=== PATIENT | female | born 1960 | race Caucasian/White ===

== ENCOUNTER 2024-03-10 00:47 | Outpatient (BNV) | payer OTHER, SELFPAY | END 2024-03-18 07:00 | PROVIDERS: Admitting Provider Psychiatry & Neurology Psychiatry; PCP Nurse Practitioner; Visit Provider Radiology Diagnostic Radiology | DX: R41.82 Altered mental status, unspecified (principal) | CPT/HCPCS: 70450 ==

== ENCOUNTER 2024-03-10 00:47 | Inpatient (IN) | payer OTHER, SELFPAY ==
--- NOTE | ~2024-03-10 | CT_ITS ---
EXAMINATION: CT HEAD WITHOUT CONTRAST CLINICAL INFORMATION: AMS psychosis COMPARISON: None available. TECHNIQUE: Contiguous axial imaging was performed from the skull base to vertex without intravenous administration of contrast. This CT examination was performed using dose optimization techniques as appropriate, variously including the following: *Automated exposure control *Adjustment of mA and/or kV according to patient size (this includes techniques or standardized protocols for targeted exams where dose is matched to indication/reason for exam; i.e. extremities or head) *Use of iterative reconstruction technique DLP: 677 mGy-cm FINDINGS: Dilated to the lateral ventricles and third ventricle. Normal appearance of the fourth ventricle and the extra-axial CSF. No acute intracranial hemorrhage, mass effect, midline shift or herniation. Welch-white matter differentiation is normal. Sellar/suprasellar region demonstrated no gross masses. Craniocervical junction is intact and normal. Posterior cranial fossa contents demonstrated no acute intracranial hemorrhage or mass effect. Calcified plaques in the cavernous segments both ICA. Tympanic cavities and mastoid cells are aerated. Bony calvarium is intact. Skull base is intact. No air-fluid levels in the included paranasal sinuses. CT/CT head/brain wo IV con IMPRESSION: 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 Electronically signed by: Justen Santillan MD 03/18/2024 03:04 PM NICHOLE
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
[2024-03-10 03:57] VITALS: BP 121/65; PULSE 63; RESP 16; TEMP 36; O2SAT 98
[2024-03-10 03:58] VITALS: BMI 36.5
[2024-03-10 09:25] VITALS: BP 147/78; PULSE 77; RESP 17; TEMP 36.1; O2SAT 96
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
--- NOTE | 2024-03-10 11:48 | PHA.MEDREC ---
Pharmacy Consult ? Medication Reconciliation Pharmacy has reviewed the medication reconciliation done by nursing staff. Not sure why all medications were entered as non-formulary . Seems like nurse used the discharge packet from [facility] for med rec but left no copy of it in patient's chart for anyone to follow up. There was no dosage and direction for the Breo inhaler. Nystatin was entered as topical but no dosage form. Psyllium has no direction. Any med that was entered incorrectly are left on med list as unconfirmed for educational purposes. I called and spoke to Keena who is sister in law and health care proxy and received home med list (list was generated on 02/28/24 from [employer]). There are discrepancies between the list from [facility] and the list from home (for the dose of keppra, olanzapine, hydroxyzine, trazodone, the [facility] has lamictal and clobazam but home list does not). Dr. Victor M Wells wants to use the home med list for med rec so list was updated.
[2024-03-10 12:02] VITALS: BP 117/70; PULSE 72
[2024-03-10] MEDS: lisinopriL 5 MG TABLET PO (12:02)
[2024-03-10] MEDS: metFORMIN HCl 1,000 MG TABLET 1000 MG PO ×2 (12:02→21:00)
[2024-03-10] MEDS: Propranolol HCL 10 MG TABLET PO ×2 (12:02→20:59)
[2024-03-10] MEDS: Cholecalciferol (Vitamin D3) 25 MCG TABLET 50 MCG PO (12:02)
[2024-03-10] MEDS: levETIRAcetam 500 MG TABLET 1500 MG PO ×2 (12:03→20:58)
[2024-03-10] MEDS: Atorvastatin Calcium 10 MG TABLET 5 MG PO (12:03)
[2024-03-10] MEDS: Cyanocobalamin (Vitamin B-12) 1,000 MCG TABLET 1000 MCG PO (12:04)
[2024-03-10] MEDS: Benztropine Mesylate 1 MG TABLET PO ×2 (12:04→21:00)
[2024-03-10] MEDS: Pyridoxine HCl (Vitamin B6) 50 MG TABLET 25 MG PO (12:04)
[2024-03-10] MEDS: Levothyroxine Sodium 100 MCG TABLET PO (12:05)
[2024-03-10] MEDS: Topiramate 25 MG TABLET PO ×2 (12:34→21:00)
[2024-03-10] MEDS: Mirabegron 50 MG TAB.ER.24H PO (12:34)
[2024-03-10] MEDS: Docusate Sodium 100 MG CAPSULE PO (12:34)
[2024-03-10] MEDS: Fluticasone/Vilanterol 100/25 BLST.W.DEV 1 PUFF INHALE (12:35)
[2024-03-10 20:00] VITALS: BP 123/68; PULSE 74; RESP 16; TEMP 36.5; O2SAT 95
[2024-03-10] MEDS: Psyllium seed 3.7 GM PACKET PO (20:58)
[2024-03-10 20:59] VITALS: BP 123/68; PULSE 74
[2024-03-10] MEDS: Melatonin 3 MG TABLET 12 MG PO (21:00)
[2024-03-10] MEDS: Divalproex Sodium 500 MG TABLET.DR PO (21:00)
[2024-03-10 21:23] LABS: Glucose, Whole Blood 105 mg/dL (60-115)
--- NOTE | 2024-03-10 21:46 | HO.PM.IMCN ---
History of Present Illness Data of Consult Service Date: 03/10/24 Requesting physician: Victor M Wells Primary Care Provider: Regulo Ivy CNP HPI Reason for consult: medical consult Patient is 63-year-old female with a past medical history significant for mild persistent asthma, CKD 3A, fatty liver, hypertension, hypothyroidism, FERMÍN (does not use CPAP), epilepsy diagnosed 13 years old ( reports last seizure was this morning), type 2 diabetes ( p.o. meds only), history melanoma and angina, no cardiac stents, admitted to [facility], for schizophrenia with auditory and visual hallucinations. she has no medical concerns currently, denies chest pain, shortness of breath, headache, nausea, vomiting, lower extremity edema. She reports that her seizure triggers are certain lights and specifically flashing lights. She denies any substance use history. Review of Systems Constitutional: Constitutional: Denies chills, Denies fatigue, Denies fever(s), Denies headache(s) and Denies weakness Eyes: Eyes: Denies change in vision ENT: Denies headache(s), Denies nasal congestion, Denies nasal discharge and Denies sore throat Cardiovascular: Cardiovascular: Denies chest pain, Denies rapid heart rate, Denies lightheadedness and Denies dyspnea Respiratory: Respiratory: Denies chest congestion, Denies cough, Denies dyspnea and Denies wheezing Gastrointestinal: Gastrointestinal: Denies constipation, Denies diarrhea, Denies nausea and Denies vomiting Genitourinary: Genitourinary: Denies dysuria and Denies urinary urgency Musculoskeletal: Musculoskeletal: Denies myalgias, Denies numbness and Denies tingling Integumentary/Breasts: Skin/Breast: Denies rash Neurologic: Denies headache(s), Denies numbness, Denies tingling and Denies weakness Psychiatric: Psychiatric: Reports as per HPI Endocrine: Endocrine: Denies fatigue Hematologic/Lymphatic: Hematologic/Lymphatic: Denies easy bleeding and Denies easy bruising Allergic/Immunologic: Allergic/Immunologic: Denies wheezing [facility] Medical History (Updated 03/10/24 @ 22:17 by Celia Maddox PA-C) Stable angina History of melanoma HTN (hypertension) Mild persistent asthma FERMÍN (obstructive sleep apnea) Diabetic peripheral neuropathy NPH (normal pressure hydrocephalus) Seizure disorder CKD (chronic kidney disease) Hypothyroidism Type 2 diabetes mellitus Schizoaffective disorder Social History Household Members: None Housing: Apartment Do you presently have visiting nurse or other home services: Yes (Visiting Nurse) Patient Tobacco Use Status: Never used Tobacco Smoked in Last 30 Days: No e-Cigarette/Vaping Use: Never Used Patient Interested in Nicotine Replacement: No Patient Given Instructions on How to Stop Smoking: No Second Hand Smoke Exposure: No Use of substances other than those prescribed or required for medical reasons: No Currently Displaying Signs/Symptoms of Drug Intoxication Withdrawal: No Any prior treatment program specific to substance use: No Have you been hit, kicked, punched, or otherwise hurt by someone within the past year? If so, by whom?: No Do you feel safe in your current relationship?: No Current Relationship Is there a partner from a previous relationship who is making you feel unsafe now?: No Are you made to feel afraid or neglected: No Restorationism Healthcare Practices: I'm a hindu Advance Directives: No Do you have thoughts of harming others: None Do you have a plan to hurt others: No Plan Recently lost weight without trying: Yes How much weight loss: Unsure Eating poorly because of decreased appetite: No Nutrition screen score: 4 Nutrition Risks: Difficulty chewing and Difficulty swallowing Patient : No : No Poor oral hygiene: No Meds Allergies Allergy/AdvReac Type Severity Reaction Status Date / Time oxcarbazepine Allergy Unknown Verified 03/10/24 01:17 [From Trileptal] peanut Allergy Unknown Verified 03/10/24 01:17 quetiapine [From Seroquel] Allergy Vomiting Verified 03/10/24 01:17 Active Medications: Current Medications Acetaminophen (Acetaminophen 325 Mg Tablet) 650 mg PO Q6H PRN PRN Reason: Headache/Pain Mild Scale (1-3) Al Hydroxide/Mg Hydroxide (Magnesium Hydrox/Alum Hydrox 30 Ml Oral.Susp) 30 ml PO QID PRN PRN Reason: Heartburn Albuterol Sulfate (Albuterol Sulfate 90 Mcg 8 Gm Inhaler) 1 puff INHALE Q3H PRN PRN Reason: Shortness of Breath Atorvastatin Calcium (Atorvastatin Calcium 10 Mg Tablet) 5 mg PO DAILY [facility] Last Admin: 03/10/24 12:03 Dose: 5 mg Benztropine Mesylate (Benztropine Mesylate 1 Mg Tablet) 1 mg PO BID [facility] Last Admin: 03/10/24 21:00 Dose: 1 mg Cyanocobalamin (Cyanocobalamin (Vitamin B-12) 1,000 Mcg Tablet) 1,000 mcg PO DAILY [facility] Last Admin: 03/10/24 12:04 Dose: 1,000 mcg Divalproex Sodium (Divalproex Sodium 500 Mg Tablet.Dr) 500 mg PO BEDTIME [facility] Last Admin: 03/10/24 21:00 Dose: 500 mg Docusate Sodium (Docusate Sodium 100 Mg Capsule) 100 mg PO BID PRN PRN Reason: Constipation Last Admin: 03/10/24 12:34 Dose: 100 mg Fluticasone/Vilanterol (Fluticasone/Vilanterol 100/25 Blst.W.Dev) 1 puff INHALE RDAILY [facility] Last Admin: 03/10/24 12:35 Dose: 1 puff Hydroxyzine HCl (Hydroxyzine Hcl 50 Mg Tablet) 50 mg PO QID PRN PRN Reason: Anxiety Levetiracetam (Levetiracetam 500 Mg Tablet) 1,500 mg PO BID [facility] Last Admin: 03/10/24 20:58 Dose: 1,500 mg Levothyroxine Sodium (Levothyroxine Sodium 100 Mcg Tablet) 100 mcg PO DAILY@0600 [facility] Last Admin: 03/10/24 12:05 Dose: 100 mcg Lisinopril (Lisinopril 5 Mg Tablet) 5 mg PO DAILY [facility] Last Admin: 03/10/24 12:02 Dose: 5 mg Magnesium Hydroxide (Milk Of Magnesia 30 Ml Oral.Susp) 10 ml PO BID PRN PRN Reason: Constipation Melatonin (Melatonin 3 Mg Tablet) 12 mg PO BEDTIME [facility] Last Admin: 03/10/24 21:00 Dose: 12 mg Metformin HCl (Metformin Hcl 1,000 Mg Tablet) 1,000 mg PO BID [facility] Last Admin: 03/10/24 21:00 Dose: 1,000 mg Mirabegron (Mirabegron 50 Mg Tab.Er.24h) 50 mg PO DAILY [facility] Last Admin: 03/10/24 12:34 Dose: 50 mg Nystatin/Triamcinolone Acetonide (Nystatin/Triamcinolone Oint 15 Gm Tube) 1 appl TOPICAL BID [facility] Last Admin: 03/10/24 21:04 Dose: Not Given Olanzapine (Olanzapine 5 Mg Tablet) 5 mg PO BID PRN PRN Reason: Agitation Propranolol HCl (Propranolol Hcl 10 Mg Tablet) 10 mg PO BID [facility] Last Admin: 03/10/24 20:59 Dose: 10 mg Psyllium Hydrophilic Mucilloid (Psyllium Seed 3.7 Gm Packet) 3.7 gm PO BID [facility] Last Admin: 03/10/24 20:58 Dose: 3.7 gm Pyridoxine HCl (Pyridoxine Hcl (Vitamin B6) 50 Mg Tablet) 25 mg PO DAILY [facility] Last Admin: 03/10/24 12:04 Dose: 25 mg Senna (Sennosides 8.6 Mg Tablet) 17.2 mg PO BEDTIME PRN PRN Reason: Constipation Topiramate (Topiramate 25 Mg Tablet) 25 mg PO BID [facility] Last Admin: 03/10/24 21:00 Dose: 25 mg Trazodone HCl (Trazodone Hcl 50 Mg Tablet) 50 mg PO BEDTIME MRX1 PRN PRN Reason: Insomnia Vitamin D (Cholecalciferol (Vitamin D3) 25 Mcg Tablet) 50 mcg PO DAILY [facility] Last Admin: 03/10/24 12:02 Dose: 50 mcg Home Medications ?Medication ?Instructions ?Recorded ?Confirmed ?Last Taken ?Type Aristada 662 mg IM Q6W 03/10/24 03/10/24 Unknown History Colace 100 cap PO BID PRN Constipation 03/10/24 03/10/24 Unknown History Depakote 500 mg PO BEDTIME 03/10/24 03/10/24 Unknown History Keppra 1,500 mg PO BID 03/10/24 03/10/24 Unknown History Maalox 30 ml PO QID PRN Heartburn 03/10/24 03/10/24 Unknown History Milk of Magnesia 10 ml PO BID PRN Constipation 03/10/24 03/10/24 Unknown History Myrbetriq 50 mg PO DAILY 03/10/24 03/10/24 Unknown History [place] 3 1 cap PO DAILY 03/10/24 03/10/24 Unknown History Zyprexa 5 mg PO BID PRN Agitation 03/10/24 03/10/24 Unknown History acetaminophen 650 mg 1,300 mg PO Q8H PRN Pain 03/10/24 03/10/24 Unknown History tablet,extended release albuterol 90 mcg inhalation Q4H PRN SOB 03/10/24 03/10/24 Unknown History benztropine 1 mg PO BID 03/10/24 03/10/24 Unknown History cholecalciferol (vitamin D3) 50 mcg PO DAILY 03/10/24 03/10/24 Unknown History cyanocobalamin (vitamin B-12) 1,000 mcg PO DAILY 03/10/24 03/10/24 Unknown History fluticasone furoate 100 1 inh inhalation DAILY 03/10/24 03/10/24 Unknown History mcg-vilanterol 25 mcg/dose inhalation powder (Breo Ellipta) fluticasone furoate-vilanterol 1 inhaler inhalation DIRECTED 03/10/24 Unknown History gabapentin 100 mg PO TID 03/10/24 03/10/24 Unknown History hydroxyzine HCl 50 mg PO QID PRN Anxiety 03/10/24 03/10/24 Unknown History levothyroxine 100 mcg PO DAILY 03/10/24 03/10/24 Unknown History lisinopril 5 mg PO DAILY 03/10/24 03/10/24 Unknown History melatonin 12 mg PO BEDTIME 03/10/24 03/10/24 Unknown History metformin 1,000 mg PO BID 03/10/24 03/10/24 Unknown History montelukast 10 mg PO DAILY 03/10/24 03/10/24 Unknown History nystatin 1 applicator topical BID 03/10/24 Unknown History nystatin-triamcinolone 100,000 1 appl topical BID 03/10/24 03/10/24 Unknown History unit/gram-0.1 % topical ointment propranolol 10 mg PO BID 03/10/24 03/10/24 Unknown History psyllium 2 packet PO BID 03/10/24 03/10/24 Unknown History psyllium 2.5 g PO DIRECTED 03/10/24 Unknown History pyridoxine (vitamin B6) 25 mg PO DAILY 03/10/24 03/10/24 Unknown History senna 17.2 mg PO BEDTIME PRN Constipation 03/10/24 03/10/24 Unknown History simvastatin 5 mg PO BEDTIME 03/10/24 03/10/24 Unknown History topiramate 50 mg PO BEDTIME 03/10/24 03/10/24 Unknown History topiramate 100 mg tablet 100 mg PO BID@1200,2100 03/10/24 03/10/24 Unknown History trazodone 100 mg PO BEDTIME 03/10/24 03/10/24 Unknown History Physical Exam Vital Signs and Narrative: Vital Signs: Last Vital Signs Temp 96.9 F 03/10/24 09:25 Pulse 74 03/10/24 20:59 Resp 17 03/10/24 09:25 BP 123/68 03/10/24 20:59 Pulse Ox 96 03/10/24 09:25 O2 Del Method Room Air 03/10/24 09:25 BMI result Body Mass Index 36.5 General: AOx3, no acute distress, cooperative, laying in bed awake Resp: CTA bilaterally CVS: S1, S2, RRR GI: +BS, NT, no distention Skin: Warm, dry Neuro: Cranial nerves II-XII grossly intact bilaterally. Motor grossly intact bilaterally. motor strength 5/5 bilateral upper and lower extremities. Extremities: No edema Psych: Appropriate affect Results Labs Labs: Laboratory Results - last 24 hr 03/10/24 21:12 POC Glucose 105 Assessment and Plan (1) Medical clearance for psychiatric admission: Status: Acute Plan Patient is 63-year-old female with a past medical history significant for mild persistent asthma, CKD 3A, fatty liver, hypertension, hypothyroidism, FERÍMN (does not use CPAP), epilepsy diagnosed 13 years old ( reports last seizure was this morning), EPS, NPH, type 2 diabetes ( p.o. meds only), history melanoma and angina, no cardiac stents, admitted to [facility], for schizophrenia with auditory and visual hallucinations. No current medical concerns. mood disorder - plan per psych mild persistent asthma - no acute exacerbation - continue albuterol as needed, montelukast and Breo daily HTN - continue lisinopril and propranolol hypothyroidism - continue levothyroxine FERMÍN - patient does not use CPAP, offered and she declined epilepsy - continue Depakote, lamotrigine, gabapentin - patient has taken up to 150 mg topiramate daily, recommendations from [facility] include increasing dose dependent on patient response - consider neuro consult for further guidance her EPS - continue benztropine NPH - recent head CT normal T2DM - encourage diabetic diet - metformin Thank you for allowing me to participate in the pt's care. Signing off for now. Please contact the medical team if any questions or concerns.
[2024-03-11 05:41] LABS: Glucose, Whole Blood 110 mg/dL (60-115)
[2024-03-11] MEDS: Levothyroxine Sodium 100 MCG TABLET PO (06:09)
[2024-03-11 08:44] LABS: Estimated Average Glucose 120 mg/dL; Hemoglobin A1C 141.0181 umol/L; Hemoglobin A1c % 5.8 % (<6.0); Total Hemoglobin (HGBA1C) 3503.0257 umol/L
[2024-03-11 08:50] LABS: Creatinine Clr Calc Pharmacy 60.4; Estimated Glomerular Filt Rate 52
[2024-03-11 08:59] LABS: Cholesterol 135 mg/dL (<200); HDL Cholesterol 40 mg/dL (>40); LDL Cholesterol Calculated 80 mg/dL (<100); Triglycerides 77 mg/dL (<150)
[2024-03-11 09:12] LABS: Free T4 (Free Thyroxine) 1.34 ng/dL (0.71-1.85); Thyroid Stimulating Hormone 2.22 uIU/mL (0.32-4.0)
[2024-03-11 09:27] LABS: Folate 7.5 ng/mL (> or = 4.0); Vitamin B12 996 pg/mL (200-900)
[2024-03-11 09:33] VITALS: BP 99/62; PULSE 53; RESP 18; TEMP 36.1; O2SAT 94
[2024-03-11] MEDS: lisinopriL 5 MG TABLET PO (09:33)
[2024-03-11] MEDS: Cholecalciferol (Vitamin D3) 25 MCG TABLET 50 MCG PO (09:34)
[2024-03-11] MEDS: Cyanocobalamin (Vitamin B-12) 1,000 MCG TABLET 1000 MCG PO (09:34)
[2024-03-11] MEDS: Atorvastatin Calcium 10 MG TABLET 5 MG PO (09:34)
[2024-03-11] MEDS: levETIRAcetam 500 MG TABLET 1500 MG PO ×2 (09:34→20:10)
[2024-03-11] MEDS: Propranolol HCL 10 MG TABLET PO ×2 (09:34→20:11)
[2024-03-11] MEDS: metFORMIN HCl 1,000 MG TABLET 1000 MG PO ×2 (09:36→20:11)
[2024-03-11] MEDS: Mirabegron 50 MG TAB.ER.24H PO (09:36)
[2024-03-11] MEDS: Pyridoxine HCl (Vitamin B6) 50 MG TABLET 25 MG PO (09:36)
[2024-03-11] MEDS: Benztropine Mesylate 1 MG TABLET PO ×2 (09:36→20:11)
[2024-03-11] MEDS: Topiramate 25 MG TABLET PO ×2 (09:38→20:11)
[2024-03-11] MEDS: Psyllium seed 3.7 GM PACKET PO (09:39)
[2024-03-11] MEDS: Fluticasone/Vilanterol 100/25 BLST.W.DEV 1 PUFF INHALE (09:39)
--- NOTE | 2024-03-11 13:10 | PM.NEUROCN ---
History of Present Illness Data of Consult Service Date: 03/11/24 Primary Care Provider: Regulo Ivy CNP HPI Reason for consult: Seizure disorder 63 years old woman with underlying diagnosis of seizure disorder following a neurologist in [facility] presently was admitted on psychiatric floor for management of worsening of schizoaffective disorder. Apparently she was noted to have a seizure-like spell and this consultation was requested. She said that her usual seizures were eye fluttering type when her eyes would flutter for couple of seconds and this time she kind of spaced out for couple of seconds. She never had generalized convulsion or passing out or falling down type of seizures. I noted that she already has been taking 3 antiepileptics for 1 or other reason including levetiracetam, valproic acid, and gabapentin. Review of Systems Review of Systems: No recent head injury or trauma [facility] Past Medical History Medical History (Updated 03/10/24 @ 22:17 by Celia Maddox PA-C) Stable angina History of melanoma HTN (hypertension) Mild persistent asthma FERMÍN (obstructive sleep apnea) Diabetic peripheral neuropathy NPH (normal pressure hydrocephalus) Seizure disorder CKD (chronic kidney disease) Hypothyroidism Type 2 diabetes mellitus Schizoaffective disorder Social History Social History Household Members: None Housing: Apartment Do you presently have visiting nurse or other home services: Yes (Visiting Nurse) Patient Tobacco Use Status: Never used Tobacco Smoked in Last 30 Days: No e-Cigarette/Vaping Use: Never Used Patient Interested in Nicotine Replacement: No Patient Given Instructions on How to Stop Smoking: No Second Hand Smoke Exposure: No Use of substances other than those prescribed or required for medical reasons: No Currently Displaying Signs/Symptoms of Drug Intoxication Withdrawal: No Any prior treatment program specific to substance use: No Have you been hit, kicked, punched, or otherwise hurt by someone within the past year? If so, by whom?: No Do you feel safe in your current relationship?: No Current Relationship Is there a partner from a previous relationship who is making you feel unsafe now?: No Are you made to feel afraid or neglected: No Catholic Healthcare Practices: I'm a baptist Advance Directives: No Do you have thoughts of harming others: None Do you have a plan to hurt others: No Plan Recently lost weight without trying: Yes How much weight loss: Unsure Eating poorly because of decreased appetite: No Nutrition screen score: 4 Nutrition Risks: Difficulty chewing and Difficulty swallowing Patient : No : No Poor oral hygiene: No Meds Allergies Allergy/AdvReac Type Severity Reaction Status Date / Time oxcarbazepine Allergy Unknown Verified 03/10/24 01:17 [From Trileptal] peanut Allergy Unknown Verified 03/10/24 01:17 quetiapine [From Seroquel] Allergy Vomiting Verified 03/10/24 01:17 Active Medications: Current Medications Acetaminophen (Acetaminophen 325 Mg Tablet) 650 mg PO Q6H PRN PRN Reason: Headache/Pain Mild Scale (1-3) Al Hydroxide/Mg Hydroxide (Magnesium Hydrox/Alum Hydrox 30 Ml Oral.Susp) 30 ml PO QID PRN PRN Reason: Heartburn Albuterol Sulfate (Albuterol Sulfate 90 Mcg 8 Gm Inhaler) 1 puff INHALE Q3H PRN PRN Reason: Shortness of Breath Atorvastatin Calcium (Atorvastatin Calcium 10 Mg Tablet) 5 mg PO DAILY [facility] Last Admin: 03/11/24 09:34 Dose: 5 mg Benztropine Mesylate (Benztropine Mesylate 1 Mg Tablet) 1 mg PO BID [facility] Last Admin: 03/11/24 09:36 Dose: 1 mg Cyanocobalamin (Cyanocobalamin (Vitamin B-12) 1,000 Mcg Tablet) 1,000 mcg PO DAILY [facility] Last Admin: 03/11/24 09:34 Dose: 1,000 mcg Divalproex Sodium (Divalproex Sodium 500 Mg Tablet.Dr) 500 mg PO BEDTIME [facility] Last Admin: 03/10/24 21:00 Dose: 500 mg Docusate Sodium (Docusate Sodium 100 Mg Capsule) 100 mg PO BID PRN PRN Reason: Constipation Last Admin: 03/10/24 12:34 Dose: 100 mg Fluticasone/Vilanterol (Fluticasone/Vilanterol 100/25 Blst.W.Dev) 1 puff INHALE RDAILY [facility] Last Admin: 03/11/24 09:39 Dose: 1 puff Hydroxyzine HCl (Hydroxyzine Hcl 50 Mg Tablet) 50 mg PO QID PRN PRN Reason: Anxiety Levetiracetam (Levetiracetam 500 Mg Tablet) 1,500 mg PO BID [facility] Last Admin: 03/11/24 09:34 Dose: 1,500 mg Levothyroxine Sodium (Levothyroxine Sodium 100 Mcg Tablet) 100 mcg PO DAILY@0600 [facility] Last Admin: 03/11/24 06:09 Dose: 100 mcg Lisinopril (Lisinopril 5 Mg Tablet) 5 mg PO DAILY [facility] Last Admin: 03/11/24 09:33 Dose: 5 mg Magnesium Hydroxide (Milk Of Magnesia 30 Ml Oral.Susp) 10 ml PO BID PRN PRN Reason: Constipation Melatonin (Melatonin 3 Mg Tablet) 12 mg PO BEDTIME [facility] Last Admin: 03/10/24 21:00 Dose: 12 mg Metformin HCl (Metformin Hcl 1,000 Mg Tablet) 1,000 mg PO BID [facility] Last Admin: 03/11/24 09:36 Dose: 1,000 mg Mirabegron (Mirabegron 50 Mg Tab.Er.24h) 50 mg PO DAILY [facility] Last Admin: 03/11/24 09:36 Dose: 50 mg Nystatin/Triamcinolone Acetonide (Nystatin/Triamcinolone Oint 15 Gm Tube) 1 appl TOPICAL BID [facility] Last Admin: 03/11/24 09:44 Dose: Not Given Olanzapine (Olanzapine 5 Mg Tablet) 5 mg PO BID PRN PRN Reason: Agitation Propranolol HCl (Propranolol Hcl 10 Mg Tablet) 10 mg PO BID [facility] Last Admin: 03/11/24 09:34 Dose: 10 mg Psyllium Hydrophilic Mucilloid (Psyllium Seed 3.7 Gm Packet) 3.7 gm PO BID [facility] Last Admin: 03/11/24 09:39 Dose: 3.7 gm Pyridoxine HCl (Pyridoxine Hcl (Vitamin B6) 50 Mg Tablet) 25 mg PO DAILY [facility] Last Admin: 03/11/24 09:36 Dose: 25 mg Senna (Sennosides 8.6 Mg Tablet) 17.2 mg PO BEDTIME PRN PRN Reason: Constipation Topiramate (Topiramate 25 Mg Tablet) 25 mg PO BID [facility] Last Admin: 03/11/24 09:38 Dose: 25 mg Trazodone HCl (Trazodone Hcl 50 Mg Tablet) 50 mg PO BEDTIME MRX1 PRN PRN Reason: Insomnia Vitamin D (Cholecalciferol (Vitamin D3) 25 Mcg Tablet) 50 mcg PO DAILY [facility] Last Admin: 03/11/24 09:34 Dose: 50 mcg Home Medications ?Medication ?Instructions ?Recorded ?Confirmed ?Last Taken ?Type Aristada 662 mg IM Q6W 03/10/24 03/10/24 Unknown History Colace 100 cap PO BID PRN Constipation 03/10/24 03/10/24 Unknown History Depakote 500 mg PO BEDTIME 03/10/24 03/10/24 Unknown History Keppra 1,500 mg PO BID 03/10/24 03/10/24 Unknown History Maalox 30 ml PO QID PRN Heartburn 03/10/24 03/10/24 Unknown History Milk of Magnesia 10 ml PO BID PRN Constipation 03/10/24 03/10/24 Unknown History Myrbetriq 50 mg PO DAILY 03/10/24 03/10/24 Unknown History [place] 3 1 cap PO DAILY 03/10/24 03/10/24 Unknown History Zyprexa 5 mg PO BID PRN Agitation 03/10/24 03/10/24 Unknown History acetaminophen 650 mg 1,300 mg PO Q8H PRN Pain 03/10/24 03/10/24 Unknown History tablet,extended release albuterol 90 mcg inhalation Q4H PRN SOB 03/10/24 03/10/24 Unknown History benztropine 1 mg PO BID 03/10/24 03/10/24 Unknown History cholecalciferol (vitamin D3) 50 mcg PO DAILY 03/10/24 03/10/24 Unknown History cyanocobalamin (vitamin B-12) 1,000 mcg PO DAILY 03/10/24 03/10/24 Unknown History fluticasone furoate 100 1 inh inhalation DAILY 03/10/24 03/10/24 Unknown History mcg-vilanterol 25 mcg/dose inhalation powder (Breo Ellipta) fluticasone furoate-vilanterol 1 inhaler inhalation DIRECTED 03/10/24 Unknown History gabapentin 100 mg PO TID 03/10/24 03/10/24 Unknown History hydroxyzine HCl 50 mg PO QID PRN Anxiety 03/10/24 03/10/24 Unknown History levothyroxine 100 mcg PO DAILY 03/10/24 03/10/24 Unknown History lisinopril 5 mg PO DAILY 03/10/24 03/10/24 Unknown History melatonin 12 mg PO BEDTIME 03/10/24 03/10/24 Unknown History metformin 1,000 mg PO BID 03/10/24 03/10/24 Unknown History montelukast 10 mg PO DAILY 03/10/24 03/10/24 Unknown History nystatin 1 applicator topical BID 03/10/24 Unknown History nystatin-triamcinolone 100,000 1 appl topical BID 03/10/24 03/10/24 Unknown History unit/gram-0.1 % topical ointment propranolol 10 mg PO BID 03/10/24 03/10/24 Unknown History psyllium 2 packet PO BID 03/10/24 03/10/24 Unknown History psyllium 2.5 g PO DIRECTED 03/10/24 Unknown History pyridoxine (vitamin B6) 25 mg PO DAILY 03/10/24 03/10/24 Unknown History senna 17.2 mg PO BEDTIME PRN Constipation 03/10/24 03/10/24 Unknown History simvastatin 5 mg PO BEDTIME 03/10/24 03/10/24 Unknown History topiramate 50 mg PO BEDTIME 03/10/24 03/10/24 Unknown History topiramate 100 mg tablet 100 mg PO BID@1200,2100 03/10/24 03/10/24 Unknown History trazodone 100 mg PO BEDTIME 03/10/24 03/10/24 Unknown History Physical Exam Vital Signs: Vital Signs: Last Vital Signs Temp 96.9 F 03/11/24 09:33 Pulse 53 03/11/24 09:33 Resp 18 03/11/24 09:33 BP 99/62 03/11/24 09:33 Pulse Ox 94 03/11/24 09:33 O2 Del Method Room Air 03/11/24 09:33 BMI result Body Mass Index 36.5 Neuro: Other: She is alert and awake with normal spontaneity of speech fluency comprehension and affect. Face is symmetrical. Visual jaramillo are full. There is no obvious focal finding. Results Labs 03/11/24 08:09 Labs: BMP 03/11/24 08:09 Creatinine 1.06 Assessment and Plan (1) Seizure disorder: Status: Acute Possible seizure disorder with partial or brief complex partial seizures. Exact seizure history in nature was not known as her previous workup was not available. She has been taking relatively large dose of levetiracetam. According to her, seizures included few seconds of eye fluttering. My recommendation is to manage her psychiatric symptoms and leave seizure management to her previous neurologist where are proper workup is known. Sometime full seizure control is difficult to achieve but as far as proper definition of this condition is concerned, she might already have workup done with her neurologist. Procedures Date of Service Date of Service: 03/11/24
--- NOTE | 2024-03-11 13:36 | P.PNPSI_ITS ---
Subjective Subjective Date of Service: 03/11/24 Reason For Visit: Psychosis Subjective Notes: Conditional Voluntary Interim History: The nursing staff reported the patient had been complaining of auditory hallucinations and visual hallucinations like seeing a man in visible. On interview the patient remains grossly psychotic, we are going to discuss about the possibility of using antipsychotics as a mood stabilizer and antipsychotic. Mental Status Exam Mental Status Exam Patient Appearance: Well Grooomed Patient Orientation: Person and Situation Level of Consciousness: Awake Patient Behavior: Guarded and Passive Mood Description: Withdrawn Affect Description: Constricted Patient Cognition Impaired: Yes Ability to Follow Directions: Good Speech Pattern: Clear Hallucinations: None Delusions: Not Present Thought Process: Distracted and Slowed Thinking Thought Content: positive for [place] and positive for Poverty of Content Judgement: Poor Diagnostics Vital Signs (24Hr): Vital Signs - 24 hr 03/10/24 20:00 03/10/24 20:59 03/11/24 09:33 Temperature 97.7 F 96.9 F Pulse Rate 74 74 53 Respiratory Rate 16 18 Blood Pressure 123/68 123/68 99/62 Pulse Oximetry 95 94 Oxygen Delivery Method Room Air Room Air BMI result Body Mass Index 36.5 Labs 03/11/24 08:09 Labs: Laboratory Results - last 48 hr 03/10/24 03/11/24 03/11/24 21:12 05:38 08:09 Creatinine 1.06 Estim Creat Clear Calc 60.4 Estimated GFR 52 POC Glucose 105 110 Estimat Average Glucose 120 Hemoglobin A1c % 5.8 Triglycerides 77 Cholesterol 135 LDL Cholesterol, Calc 80 HDL Cholesterol 40 L Vitamin B12 996 H Folate 7.5 TSH 2.22 Free T4 1.34 Medications Medications Current Medications Acetaminophen (Acetaminophen 325 Mg Tablet) 650 mg PO Q6H PRN PRN Reason: Headache/Pain Mild Scale (1-3) Al Hydroxide/Mg Hydroxide (Magnesium Hydrox/Alum Hydrox 30 Ml Oral.Susp) 30 ml PO QID PRN PRN Reason: Heartburn Albuterol Sulfate (Albuterol Sulfate 90 Mcg 8 Gm Inhaler) 1 puff INHALE Q3H PRN PRN Reason: Shortness of Breath Atorvastatin Calcium (Atorvastatin Calcium 10 Mg Tablet) 5 mg PO DAILY [facility] Last Admin: 03/11/24 09:34 Dose: 5 mg Benztropine Mesylate (Benztropine Mesylate 1 Mg Tablet) 1 mg PO BID [facility] Last Admin: 03/11/24 09:36 Dose: 1 mg Cyanocobalamin (Cyanocobalamin (Vitamin B-12) 1,000 Mcg Tablet) 1,000 mcg PO DAILY [facility] Last Admin: 03/11/24 09:34 Dose: 1,000 mcg Divalproex Sodium (Divalproex Sodium 500 Mg Tablet.Dr) 500 mg PO BEDTIME [facility] Last Admin: 03/10/24 21:00 Dose: 500 mg Docusate Sodium (Docusate Sodium 100 Mg Capsule) 100 mg PO BID PRN PRN Reason: Constipation Last Admin: 03/10/24 12:34 Dose: 100 mg Fluticasone/Vilanterol (Fluticasone/Vilanterol 100/25 Blst.W.Dev) 1 puff INHALE RDAILY [facility] Last Admin: 03/11/24 09:39 Dose: 1 puff Hydroxyzine HCl (Hydroxyzine Hcl 50 Mg Tablet) 50 mg PO QID PRN PRN Reason: Anxiety Levetiracetam (Levetiracetam 500 Mg Tablet) 1,500 mg PO BID [facility] Last Admin: 03/11/24 09:34 Dose: 1,500 mg Levothyroxine Sodium (Levothyroxine Sodium 100 Mcg Tablet) 100 mcg PO DAILY@0600 [facility] Last Admin: 03/11/24 06:09 Dose: 100 mcg Lisinopril (Lisinopril 5 Mg Tablet) 5 mg PO DAILY [facility] Last Admin: 03/11/24 09:33 Dose: 5 mg Magnesium Hydroxide (Milk Of Magnesia 30 Ml Oral.Susp) 10 ml PO BID PRN PRN Reason: Constipation Melatonin (Melatonin 3 Mg Tablet) 12 mg PO BEDTIME [facility] Last Admin: 03/10/24 21:00 Dose: 12 mg Metformin HCl (Metformin Hcl 1,000 Mg Tablet) 1,000 mg PO BID [facility] Last Admin: 03/11/24 09:36 Dose: 1,000 mg Mirabegron (Mirabegron 50 Mg Tab.Er.24h) 50 mg PO DAILY [facility] Last Admin: 03/11/24 09:36 Dose: 50 mg Nystatin/Triamcinolone Acetonide (Nystatin/Triamcinolone Oint 15 Gm Tube) 1 appl TOPICAL BID [facility] Last Admin: 03/11/24 09:44 Dose: Not Given Olanzapine (Olanzapine 5 Mg Tablet) 5 mg PO BID PRN PRN Reason: Agitation Propranolol HCl (Propranolol Hcl 10 Mg Tablet) 10 mg PO BID [facility] Last Admin: 03/11/24 09:34 Dose: 10 mg Psyllium Hydrophilic Mucilloid (Psyllium Seed 3.7 Gm Packet) 3.7 gm PO BID [facility] Last Admin: 03/11/24 09:39 Dose: 3.7 gm Pyridoxine HCl (Pyridoxine Hcl (Vitamin B6) 50 Mg Tablet) 25 mg PO DAILY [facility] Last Admin: 03/11/24 09:36 Dose: 25 mg Senna (Sennosides 8.6 Mg Tablet) 17.2 mg PO BEDTIME PRN PRN Reason: Constipation Topiramate (Topiramate 25 Mg Tablet) 25 mg PO BID [facility] Last Admin: 03/11/24 09:38 Dose: 25 mg Trazodone HCl (Trazodone Hcl 50 Mg Tablet) 50 mg PO BEDTIME MRX1 PRN PRN Reason: Insomnia Vitamin D (Cholecalciferol (Vitamin D3) 25 Mcg Tablet) 50 mcg PO DAILY [facility] Last Admin: 03/11/24 09:34 Dose: 50 mcg Allergies Allergies Allergy/AdvReac Type Severity Reaction Status Date / Time oxcarbazepine Allergy Unknown Verified 03/10/24 01:17 [From Trileptal] peanut Allergy Unknown Verified 03/10/24 01:17 quetiapine [From Seroquel] Allergy Vomiting Verified 03/10/24 01:17 Assessment & Plan Assessment & Plan (1) Seizure disorder: Status: Acute Code(s): G40.909 - Epilepsy, unspecified, not intractable, without status epilepticus Assessment and Plan: Possible seizure disorder with partial or brief complex partial seizures. Exact seizure history in nature was not known as her previous workup was not available. She has been taking relatively large dose of levetiracetam. According to her, seizures included few seconds of eye fluttering. My recommendation is to manage her psychiatric symptoms and leave seizure management to her previous neurologist where are proper workup is known. Sometime full seizure control is difficult to achieve but as far as proper definition of this condition is concerned, she might already have workup done with her neurologist. Plan Plan 1. Gather collateral information. 2. Continue with same medications. 3. We will start antipsychotics to target psychosis. Reason for continued inpatient stay Substantial Risk for: inability to function, rapid decompensation and med/psych decompensation Time Spent With Patient Time: Total time managing care of this patient today __20__ minutes.
[2024-03-11 20:00] VITALS: BP 106/53; PULSE 63; RESP 16; TEMP 36.5; O2SAT 96
[2024-03-11] MEDS: Melatonin 3 MG TABLET 12 MG PO (20:10)
[2024-03-11 20:11] VITALS: BP 103/53; PULSE 63
[2024-03-11] MEDS: Divalproex Sodium 500 MG TABLET.DR PO (20:11)
[2024-03-12 05:26] LABS: Glucose, Whole Blood 128 mg/dL (60-115)
[2024-03-12] MEDS: Levothyroxine Sodium 100 MCG TABLET PO (05:32)
[2024-03-12] MEDS: OLANZapine 5 MG TABLET PO (05:32)
[2024-03-12 08:00] VITALS: BP 116/61; PULSE 60; RESP 16; TEMP 36.4; O2SAT 98
--- NOTE | 2024-03-12 08:29 | HO.PSYCHPN ---
Subjective Subjective Date of Service: 03/12/24 Reason For Visit: Psychosis Interim History: The nursing staff reported the patient went to bed early she slept 6 hours and he woke up at 04:00 o'clock in the morning. He received Zyprexa at 05:30 and she still paranoid. She had been elusive stating that her parents are not their parents. On interview the patient denies new symptoms she looks internally preoccupied. Mental Status Exam Mental Status Exam Patient Appearance: Appropriate Patient Orientation: Person and Situation Level of Consciousness: Awake and Appropriate Patient Behavior: Guarded and Passive Mood Description: Calm Affect Description: Labile Patient Cognition Impaired: Yes Ability to Follow Directions: Good Speech Pattern: Clear Hallucinations: Auditory Delusions: Paranoid Ideation and Ideas of Reference Thought Process: Distracted and Evasive Thought Content: positive for [place] and positive for Poverty of Content Judgement: Poor Diagnostics Vital Signs (24Hr): Vital Signs - 24 hr 03/11/24 09:33 03/11/24 20:00 03/11/24 20:11 Temperature 96.9 F 97.7 F Pulse Rate 53 63 63 Respiratory Rate 18 16 Blood Pressure 99/62 106/53 L 103/53 L Pulse Oximetry 94 96 Oxygen Delivery Method Room Air Room Air BMI result Body Mass Index 36.5 Labs 03/11/24 08:09 Labs: Laboratory Results - last 48 hr 03/10/24 03/11/24 03/11/24 21:12 05:38 08:09 Creatinine 1.06 Estim Creat Clear Calc 60.4 Estimated GFR 52 POC Glucose 105 110 Estimat Average Glucose 120 Hemoglobin A1c % 5.8 Triglycerides 77 Cholesterol 135 LDL Cholesterol, Calc 80 HDL Cholesterol 40 L Vitamin B12 996 H Folate 7.5 TSH 2.22 Free T4 1.34 03/12/24 05:23 Creatinine Estim Creat Clear Calc Estimated GFR POC Glucose 128 H Estimat Average Glucose Hemoglobin A1c % Triglycerides Cholesterol LDL Cholesterol, Calc HDL Cholesterol Vitamin B12 Folate TSH Free T4 Medications Medications Current Medications Acetaminophen (Acetaminophen 325 Mg Tablet) 650 mg PO Q6H PRN PRN Reason: Headache/Pain Mild Scale (1-3) Al Hydroxide/Mg Hydroxide (Magnesium Hydrox/Alum Hydrox 30 Ml Oral.Susp) 30 ml PO QID PRN PRN Reason: Heartburn Albuterol Sulfate (Albuterol Sulfate 90 Mcg 8 Gm Inhaler) 1 puff INHALE Q3H PRN PRN Reason: Shortness of Breath Atorvastatin Calcium (Atorvastatin Calcium 10 Mg Tablet) 5 mg PO DAILY [facility] Last Admin: 03/11/24 09:34 Dose: 5 mg Benztropine Mesylate (Benztropine Mesylate 1 Mg Tablet) 1 mg PO BID [facility] Last Admin: 03/11/24 20:11 Dose: 1 mg Cyanocobalamin (Cyanocobalamin (Vitamin B-12) 1,000 Mcg Tablet) 1,000 mcg PO DAILY [facility] Last Admin: 03/11/24 09:34 Dose: 1,000 mcg Divalproex Sodium (Divalproex Sodium 500 Mg Tablet.Dr) 500 mg PO BEDTIME [facility] Last Admin: 03/11/24 20:11 Dose: 500 mg Docusate Sodium (Docusate Sodium 100 Mg Capsule) 100 mg PO BID PRN PRN Reason: Constipation Last Admin: 03/10/24 12:34 Dose: 100 mg Fluticasone/Vilanterol (Fluticasone/Vilanterol 100/25 Blst.W.Dev) 1 puff INHALE RDAILY [facility] Last Admin: 03/11/24 09:39 Dose: 1 puff Hydroxyzine HCl (Hydroxyzine Hcl 50 Mg Tablet) 50 mg PO QID PRN PRN Reason: Anxiety Levetiracetam (Levetiracetam 500 Mg Tablet) 1,500 mg PO BID [facility] Last Admin: 03/11/24 20:10 Dose: 1,500 mg Levothyroxine Sodium (Levothyroxine Sodium 100 Mcg Tablet) 100 mcg PO DAILY@0600 [facility] Last Admin: 03/12/24 05:32 Dose: 100 mcg Lisinopril (Lisinopril 5 Mg Tablet) 5 mg PO DAILY [facility] Last Admin: 03/11/24 09:33 Dose: 5 mg Magnesium Hydroxide (Milk Of Magnesia 30 Ml Oral.Susp) 10 ml PO BID PRN PRN Reason: Constipation Melatonin (Melatonin 3 Mg Tablet) 12 mg PO BEDTIME [facility] Last Admin: 03/11/24 20:10 Dose: 12 mg Metformin HCl (Metformin Hcl 1,000 Mg Tablet) 1,000 mg PO BID [facility] Last Admin: 03/11/24 20:11 Dose: 1,000 mg Mirabegron (Mirabegron 50 Mg Tab.Er.24h) 50 mg PO DAILY [facility] Last Admin: 03/11/24 09:36 Dose: 50 mg Nystatin/Triamcinolone Acetonide (Nystatin/Triamcinolone Oint 15 Gm Tube) 1 appl TOPICAL BID [facility] Last Admin: 03/11/24 20:12 Dose: Not Given Olanzapine (Olanzapine 5 Mg Tablet) 5 mg PO BID PRN PRN Reason: Agitation Last Admin: 03/12/24 05:32 Dose: 5 mg Propranolol HCl (Propranolol Hcl 10 Mg Tablet) 10 mg PO BID [facility] Last Admin: 03/11/24 20:11 Dose: 10 mg Psyllium Hydrophilic Mucilloid (Psyllium Seed 3.7 Gm Packet) 3.7 gm PO BID [facility] Last Admin: 03/11/24 20:12 Dose: Not Given Pyridoxine HCl (Pyridoxine Hcl (Vitamin B6) 50 Mg Tablet) 25 mg PO DAILY [facility] Last Admin: 03/11/24 09:36 Dose: 25 mg Senna (Sennosides 8.6 Mg Tablet) 17.2 mg PO BEDTIME PRN PRN Reason: Constipation Topiramate (Topiramate 25 Mg Tablet) 25 mg PO BID [facility] Last Admin: 03/11/24 20:11 Dose: 25 mg Trazodone HCl (Trazodone Hcl 50 Mg Tablet) 50 mg PO BEDTIME MRX1 PRN PRN Reason: Insomnia Vitamin D (Cholecalciferol (Vitamin D3) 25 Mcg Tablet) 50 mcg PO DAILY [facility] Last Admin: 03/11/24 09:34 Dose: 50 mcg Allergies Allergies Allergy/AdvReac Type Severity Reaction Status Date / Time oxcarbazepine Allergy Unknown Verified 03/10/24 01:17 [From Trileptal] peanut Allergy Unknown Verified 03/10/24 01:17 quetiapine [From Seroquel] Allergy Vomiting Verified 03/10/24 01:17 Assessment & Plan Assessment & Plan (1) Seizure disorder: Status: Acute Code(s): G40.909 - Epilepsy, unspecified, not intractable, without status epilepticus Assessment and Plan: Possible seizure disorder with partial or brief complex partial seizures. Exact seizure history in nature was not known as her previous workup was not available. She has been taking relatively large dose of levetiracetam. According to her, seizures included few seconds of eye fluttering. My recommendation is to manage her psychiatric symptoms and leave seizure management to her previous neurologist where are proper workup is known. Sometime full seizure control is difficult to achieve but as far as proper definition of this condition is concerned, she might already have workup done with her neurologist. Plan Plan 1. Gather collateral information. 2. Continue with same medications. 3. We will start antipsychotics to target psychosis. Reason for continued inpatient stay Substantial Risk for: inability to function, rapid decompensation and med/psych decompensation Time Spent With Patient Time: Total time managing care of this patient today __20__ minutes.
[2024-03-12] MEDS: Cholecalciferol (Vitamin D3) 25 MCG TABLET 50 MCG PO (09:08)
[2024-03-12] MEDS: levETIRAcetam 500 MG TABLET 1500 MG PO ×2 (09:08→20:10)
[2024-03-12] MEDS: Mirabegron 50 MG TAB.ER.24H PO (09:09)
[2024-03-12] MEDS: metFORMIN HCl 1,000 MG TABLET 1000 MG PO ×2 (09:10→20:10)
[2024-03-12] MEDS: Atorvastatin Calcium 10 MG TABLET 5 MG PO (09:11)
[2024-03-12] MEDS: Pyridoxine HCl (Vitamin B6) 50 MG TABLET 25 MG PO (09:12)
[2024-03-12] MEDS: Cyanocobalamin (Vitamin B-12) 1,000 MCG TABLET 1000 MCG PO (09:13)
[2024-03-12 09:14] VITALS: BP 116/61
[2024-03-12] MEDS: lisinopriL 5 MG TABLET PO (09:14)
[2024-03-12] MEDS: Benztropine Mesylate 1 MG TABLET PO ×2 (09:14→20:10)
[2024-03-12] MEDS: Topiramate 25 MG TABLET PO ×2 (09:15→20:10)
[2024-03-12] MEDS: Fluticasone/Vilanterol 100/25 BLST.W.DEV 1 PUFF INHALE (09:16)
[2024-03-12 09:18] VITALS: BP 116/61; PULSE 66
[2024-03-12] MEDS: Propranolol HCL 10 MG TABLET PO ×2 (09:18→20:09)
[2024-03-12 20:00] VITALS: BP 133/63; PULSE 61; RESP 16; TEMP 36.6; O2SAT 98
[2024-03-12] MEDS: Psyllium seed 3.7 GM PACKET PO (20:08)
[2024-03-12 20:09] VITALS: BP 133/63; PULSE 61
[2024-03-12] MEDS: Melatonin 3 MG TABLET 12 MG PO (20:10)
[2024-03-12] MEDS: Divalproex Sodium 500 MG TABLET.DR PO (20:10)
[2024-03-13] MEDS: Levothyroxine Sodium 100 MCG TABLET PO (05:00)
[2024-03-13 05:22] LABS: Glucose, Whole Blood 106 mg/dL (60-115)
[2024-03-13] MEDS: Atorvastatin Calcium 10 MG TABLET 5 MG PO (08:30)
[2024-03-13] MEDS: Cholecalciferol (Vitamin D3) 25 MCG TABLET 50 MCG PO (08:30)
[2024-03-13] MEDS: levETIRAcetam 500 MG TABLET 1500 MG PO ×2 (08:30→21:04)
[2024-03-13] MEDS: lisinopriL 5 MG TABLET PO (08:30)
[2024-03-13] MEDS: Benztropine Mesylate 1 MG TABLET PO ×2 (08:31→21:04)
[2024-03-13] MEDS: Topiramate 25 MG TABLET PO ×2 (08:31→21:04)
[2024-03-13] MEDS: Cyanocobalamin (Vitamin B-12) 1,000 MCG TABLET 1000 MCG PO (08:31)
[2024-03-13] MEDS: Propranolol HCL 10 MG TABLET PO (08:31)
[2024-03-13] MEDS: Mirabegron 50 MG TAB.ER.24H PO (08:31)
[2024-03-13] MEDS: Pyridoxine HCl (Vitamin B6) 50 MG TABLET 25 MG PO (08:31)
[2024-03-13] MEDS: metFORMIN HCl 1,000 MG TABLET 1000 MG PO ×2 (08:31→21:04)
[2024-03-13] MEDS: Psyllium seed 3.7 GM PACKET PO ×2 (08:34→21:08)
[2024-03-13] MEDS: Fluticasone/Vilanterol 100/25 BLST.W.DEV 1 PUFF INHALE (08:36)
[2024-03-13 08:42] VITALS: BP 119/94; PULSE 67; RESP 14; TEMP 36.5; O2SAT 97
--- NOTE | 2024-03-13 14:25 | P.PNPSI_ITS ---
Subjective Subjective Date of Service: 03/13/24 Reason For Visit: Psychosis Subjective Notes: Conditional Voluntary Interim History: The nursing staff reported the patient had been flat confused slept 6 hours. The occupational therapist reported that in groups she did well but she was self dialogue in. The social media coordinator get more collateral information apparently at baseline she always talks about herself and she has a healthcare proxy that it was invoked. Apparently she takes aripiprazole long-acting Aristada and his next dose is on April 01. On interview the patient denies new symptoms, she agreed to have a CT scan. Mental Status Exam Mental Status Exam Patient Appearance: Appropriate Patient Orientation: Person and Situation Level of Consciousness: Awake and Appropriate Patient Behavior: Guarded and Passive Mood Description: Withdrawn Affect Description: Constricted Patient Cognition Impaired: Yes Ability to Follow Directions: Good Speech Pattern: Clear Hallucinations: Auditory Delusions: Paranoid Ideation and Ideas of Reference Thought Process: Distracted and Slowed Thinking Thought Content: positive for [place] and positive for Poverty of Content Judgement: Fair Diagnostics Vital Signs (24Hr): Vital Signs - 24 hr 03/12/24 20:00 03/12/24 20:09 03/13/24 08:42 Temperature 97.9 F 97.7 F Pulse Rate 61 61 67 Respiratory Rate 16 14 Blood Pressure 133/63 133/63 119/94 H Pulse Oximetry 98 97 Oxygen Delivery Method Room Air Room Air BMI result Body Mass Index 36.5 Labs 03/11/24 08:09 Labs: Laboratory Results - last 48 hr 03/12/24 03/13/24 05:23 05:11 POC Glucose 128 H 106 Medications Medications Current Medications Acetaminophen (Acetaminophen 325 Mg Tablet) 650 mg PO Q6H PRN PRN Reason: Headache/Pain Mild Scale (1-3) Al Hydroxide/Mg Hydroxide (Magnesium Hydrox/Alum Hydrox 30 Ml Oral.Susp) 30 ml PO QID PRN PRN Reason: Heartburn Albuterol Sulfate (Albuterol Sulfate 90 Mcg 8 Gm Inhaler) 1 puff INHALE Q3H PRN PRN Reason: Shortness of Breath Atorvastatin Calcium (Atorvastatin Calcium 10 Mg Tablet) 5 mg PO DAILY [facility] Last Admin: 03/13/24 08:30 Dose: 5 mg Benztropine Mesylate (Benztropine Mesylate 1 Mg Tablet) 1 mg PO BID [facility] Last Admin: 03/13/24 08:31 Dose: 1 mg Cyanocobalamin (Cyanocobalamin (Vitamin B-12) 1,000 Mcg Tablet) 1,000 mcg PO DAILY [facility] Last Admin: 03/13/24 08:31 Dose: 1,000 mcg Divalproex Sodium (Divalproex Sodium 500 Mg Tablet.Dr) 500 mg PO BEDTIME [facility] Last Admin: 03/12/24 20:10 Dose: 500 mg Docusate Sodium (Docusate Sodium 100 Mg Capsule) 100 mg PO BID PRN PRN Reason: Constipation Last Admin: 03/10/24 12:34 Dose: 100 mg Fluticasone/Vilanterol (Fluticasone/Vilanterol 100/25 Blst.W.Dev) 1 puff INHALE RDAILY [facility] Last Admin: 03/13/24 08:36 Dose: 1 puff Hydroxyzine HCl (Hydroxyzine Hcl 50 Mg Tablet) 50 mg PO QID PRN PRN Reason: Anxiety Levetiracetam (Levetiracetam 500 Mg Tablet) 1,500 mg PO BID [facility] Last Admin: 03/13/24 08:30 Dose: 1,500 mg Levothyroxine Sodium (Levothyroxine Sodium 100 Mcg Tablet) 100 mcg PO DAILY@0600 [facility] Last Admin: 03/13/24 05:00 Dose: 100 mcg Lisinopril (Lisinopril 5 Mg Tablet) 5 mg PO DAILY [facility] Last Admin: 03/13/24 08:30 Dose: 5 mg Magnesium Hydroxide (Milk Of Magnesia 30 Ml Oral.Susp) 10 ml PO BID PRN PRN Reason: Constipation Melatonin (Melatonin 3 Mg Tablet) 12 mg PO BEDTIME [facility] Last Admin: 03/12/24 20:10 Dose: 12 mg Metformin HCl (Metformin Hcl 1,000 Mg Tablet) 1,000 mg PO BID [facility] Last Admin: 03/13/24 08:31 Dose: 1,000 mg Mirabegron (Mirabegron 50 Mg Tab.Er.24h) 50 mg PO DAILY [facility] Last Admin: 03/13/24 08:31 Dose: 50 mg Nystatin/Triamcinolone Acetonide (Nystatin/Triamcinolone Oint 15 Gm Tube) 1 appl TOPICAL BID [facility] Last Admin: 03/13/24 08:35 Dose: Not Given Olanzapine (Olanzapine 5 Mg Tablet) 5 mg PO BID PRN PRN Reason: Agitation Last Admin: 03/12/24 05:32 Dose: 5 mg Propranolol HCl (Propranolol Hcl 10 Mg Tablet) 10 mg PO BID [facility] Last Admin: 03/13/24 08:31 Dose: 10 mg Psyllium Hydrophilic Mucilloid (Psyllium Seed 3.7 Gm Packet) 3.7 gm PO BID [facility] Last Admin: 03/13/24 08:34 Dose: 3.7 gm Pyridoxine HCl (Pyridoxine Hcl (Vitamin B6) 50 Mg Tablet) 25 mg PO DAILY [facility] Last Admin: 03/13/24 08:31 Dose: 25 mg Senna (Sennosides 8.6 Mg Tablet) 17.2 mg PO BEDTIME PRN PRN Reason: Constipation Topiramate (Topiramate 25 Mg Tablet) 25 mg PO BID [facility] Last Admin: 03/13/24 08:31 Dose: 25 mg Trazodone HCl (Trazodone Hcl 50 Mg Tablet) 50 mg PO BEDTIME MRX1 PRN PRN Reason: Insomnia Vitamin D (Cholecalciferol (Vitamin D3) 25 Mcg Tablet) 50 mcg PO DAILY [facility] Last Admin: 03/13/24 08:30 Dose: 50 mcg Allergies Allergies Allergy/AdvReac Type Severity Reaction Status Date / Time oxcarbazepine Allergy Unknown Verified 03/10/24 01:17 [From Trileptal] peanut Allergy Unknown Verified 03/10/24 01:17 quetiapine [From Seroquel] Allergy Vomiting Verified 03/10/24 01:17 Assessment & Plan Assessment & Plan (1) Seizure disorder: Status: Acute Code(s): G40.909 - Epilepsy, unspecified, not intractable, without status epilepticus Assessment and Plan: Possible seizure disorder with partial or brief complex partial seizures. Exact seizure history in nature was not known as her previous workup was not available. She has been taking relatively large dose of levetiracetam. According to her, seizures included few seconds of eye fluttering. My recommendation is to manage her psychiatric symptoms and leave seizure management to her previous neurologist where are proper workup is known. Sometime full seizure control is difficult to achieve but as far as proper definition of this condition is concerned, she might already have workup done with her neurologist. Plan Plan 1. Gather collateral information. 2. Continue with same medications. 3. We will start antipsychotics to target psychosis. Apparently she had been on long-acting Abilify or Aristada. 4. We will order a new CT scan Reason for continued inpatient stay Substantial Risk for: inability to function, rapid decompensation and med/psych decompensation Time Spent With Patient Time: Total time managing care of this patient today __20__ minutes.
[2024-03-13] MEDS: Acetaminophen 325 MG TABLET 650 MG PO (16:06)
[2024-03-13 20:00] VITALS: BP 100/58; PULSE 58; RESP 18; TEMP 36.2; O2SAT 95
[2024-03-13] MEDS: Divalproex Sodium 500 MG TABLET.DR PO (21:04)
[2024-03-13] MEDS: Melatonin 3 MG TABLET 12 MG PO (21:04)
[2024-03-13 21:18] VITALS: BP 100/56; PULSE 58
[2024-03-14] MEDS: Levothyroxine Sodium 100 MCG TABLET PO (06:08)
[2024-03-14 06:38] LABS: Glucose, Whole Blood 109 mg/dL (60-115)
[2024-03-14 07:00] VITALS: BMI 37.5
[2024-03-14 08:40] VITALS: BP 120/78; PULSE 77; RESP 18; TEMP 36.3; O2SAT 97
[2024-03-14] MEDS: Mirabegron 50 MG TAB.ER.24H PO (08:43)
[2024-03-14] MEDS: Propranolol HCL 10 MG TABLET PO ×2 (08:43→20:27)
[2024-03-14] MEDS: Cyanocobalamin (Vitamin B-12) 1,000 MCG TABLET 1000 MCG PO (08:43)
[2024-03-14] MEDS: Pyridoxine HCl (Vitamin B6) 50 MG TABLET 25 MG PO (08:43)
[2024-03-14] MEDS: Cholecalciferol (Vitamin D3) 25 MCG TABLET 50 MCG PO (08:43)
[2024-03-14] MEDS: levETIRAcetam 500 MG TABLET 1500 MG PO ×2 (08:43→20:26)
[2024-03-14] MEDS: metFORMIN HCl 1,000 MG TABLET 1000 MG PO ×2 (08:44→20:27)
[2024-03-14] MEDS: Benztropine Mesylate 1 MG TABLET PO ×2 (08:44→20:27)
[2024-03-14] MEDS: Atorvastatin Calcium 10 MG TABLET 5 MG PO (08:44)
[2024-03-14] MEDS: lisinopriL 5 MG TABLET PO (08:44)
[2024-03-14] MEDS: Topiramate 25 MG TABLET PO ×2 (08:44→20:26)
[2024-03-14] MEDS: Psyllium seed 3.7 GM PACKET PO ×2 (08:48→20:26)
[2024-03-14] MEDS: Fluticasone/Vilanterol 100/25 BLST.W.DEV 1 PUFF INHALE (08:49)
--- NOTE | 2024-03-14 12:39 | P.PNPSI_ITS ---
Subjective Subjective Date of Service: 03/14/24 Reason For Visit: Psychosis Subjective Notes: Conditional Voluntary and 3 Day Interim History: Pt generally unremarkable .no active sz cooperative with tx pts tx reviewed with nursing staff Medication Compliance: Yes Mental Status Exam Mental Status Exam Patient Appearance: Appropriate Patient Orientation: Person, Place and Situation Level of Consciousness: Awake Patient Behavior: Guarded and Passive Mood Description: Calm Affect Description: Constricted Patient Cognition Impaired: Yes Ability to Follow Directions: Good Speech Pattern: Clear Hallucinations: None Delusions: Not Present Perceptual Disturbances: Hallucinations Thought Process: Distracted and Slowed Thinking Thought Content: positive for [place] and positive for Poverty of Content Judgement: Fair Diagnostics Vital Signs (24Hr): Vital Signs - 24 hr 03/13/24 20:00 03/13/24 21:18 03/14/24 08:40 Temperature 97.2 F 97.4 F Pulse Rate 58 58 77 Respiratory Rate 18 18 Blood Pressure 100/58 L 100/56 L 120/78 Pulse Oximetry 95 97 Oxygen Delivery Method Room Air Room Air BMI result Body Mass Index 36.5 Labs 03/20/24 08:19 03/20/24 08:19 Labs: Laboratory Results - last 48 hr 03/13/24 03/14/24 05:11 06:30 POC Glucose 106 109 Medications Medications Current Medications Acetaminophen (Acetaminophen 325 Mg Tablet) 650 mg PO Q6H PRN PRN Reason: Headache/Pain Mild Scale (1-3) Last Admin: 03/13/24 16:06 Dose: 650 mg Al Hydroxide/Mg Hydroxide (Magnesium Hydrox/Alum Hydrox 30 Ml Oral.Susp) 30 ml PO QID PRN PRN Reason: Heartburn Albuterol Sulfate (Albuterol Sulfate 90 Mcg 8 Gm Inhaler) 1 puff INHALE Q3H PRN PRN Reason: Shortness of Breath Atorvastatin Calcium (Atorvastatin Calcium 10 Mg Tablet) 5 mg PO DAILY [facility] Last Admin: 03/14/24 08:44 Dose: 5 mg Benztropine Mesylate (Benztropine Mesylate 1 Mg Tablet) 1 mg PO BID [facility] Last Admin: 03/14/24 08:44 Dose: 1 mg Cyanocobalamin (Cyanocobalamin (Vitamin B-12) 1,000 Mcg Tablet) 1,000 mcg PO DAILY [facility] Last Admin: 03/14/24 08:43 Dose: 1,000 mcg Divalproex Sodium (Divalproex Sodium 500 Mg Tablet.) 500 mg PO BEDTIME [facility] Last Admin: 03/13/24 21:04 Dose: 500 mg Docusate Sodium (Docusate Sodium 100 Mg Capsule) 100 mg PO BID PRN PRN Reason: Constipation Last Admin: 03/10/24 12:34 Dose: 100 mg Fluticasone/Vilanterol (Fluticasone/Vilanterol 100/25 Blst.W.Dev) 1 puff INHALE RDAILY [facility] Last Admin: 03/14/24 08:49 Dose: 1 puff Hydroxyzine HCl (Hydroxyzine Hcl 50 Mg Tablet) 50 mg PO QID PRN PRN Reason: Anxiety Levetiracetam (Levetiracetam 500 Mg Tablet) 1,500 mg PO BID [facility] Last Admin: 03/14/24 08:43 Dose: 1,500 mg Levothyroxine Sodium (Levothyroxine Sodium 100 Mcg Tablet) 100 mcg PO DAILY@0600 [facility] Last Admin: 03/14/24 06:08 Dose: 100 mcg Lisinopril (Lisinopril 5 Mg Tablet) 5 mg PO DAILY [facility] Last Admin: 03/14/24 08:44 Dose: 5 mg Magnesium Hydroxide (Milk Of Magnesia 30 Ml Oral.Susp) 10 ml PO BID PRN PRN Reason: Constipation Melatonin (Melatonin 3 Mg Tablet) 12 mg PO BEDTIME [facility] Last Admin: 03/13/24 21:04 Dose: 12 mg Metformin HCl (Metformin Hcl 1,000 Mg Tablet) 1,000 mg PO BID [facility] Last Admin: 03/14/24 08:44 Dose: 1,000 mg Mirabegron (Mirabegron 50 Mg Tab.Er.24h) 50 mg PO DAILY [facility] Last Admin: 03/14/24 08:43 Dose: 50 mg Nystatin/Triamcinolone Acetonide (Nystatin/Triamcinolone Oint 15 Gm Tube) 1 appl TOPICAL BID [facility] Last Admin: 03/14/24 08:49 Dose: Not Given Olanzapine (Olanzapine 5 Mg Tablet) 5 mg PO BID PRN PRN Reason: Agitation Last Admin: 03/12/24 05:32 Dose: 5 mg Propranolol HCl (Propranolol Hcl 10 Mg Tablet) 10 mg PO BID [facility] Last Admin: 03/14/24 08:43 Dose: 10 mg Psyllium Hydrophilic Mucilloid (Psyllium Seed 3.7 Gm Packet) 3.7 gm PO BID [facility] Last Admin: 03/14/24 08:48 Dose: 3.7 gm Pyridoxine HCl (Pyridoxine Hcl (Vitamin B6) 50 Mg Tablet) 25 mg PO DAILY [facility] Last Admin: 03/14/24 08:43 Dose: 25 mg Senna (Sennosides 8.6 Mg Tablet) 17.2 mg PO BEDTIME PRN PRN Reason: Constipation Topiramate (Topiramate 25 Mg Tablet) 25 mg PO BID [facility] Last Admin: 03/14/24 08:44 Dose: 25 mg Trazodone HCl (Trazodone Hcl 50 Mg Tablet) 50 mg PO BEDTIME MRX1 PRN PRN Reason: Insomnia Vitamin D (Cholecalciferol (Vitamin D3) 25 Mcg Tablet) 50 mcg PO DAILY [facility] Last Admin: 03/14/24 08:43 Dose: 50 mcg Allergies Allergies Allergy/AdvReac Type Severity Reaction Status Date / Time oxcarbazepine Allergy Unknown Verified 03/10/24 01:17 [From Trileptal] peanut Allergy Unknown Verified 03/10/24 01:17 quetiapine [From Seroquel] Allergy Vomiting Verified 03/10/24 01:17 Assessment & Plan Assessment & Plan (1) Seizure disorder: Status: Acute Code(s): G40.909 - Epilepsy, unspecified, not intractable, without status epilepticus Assessment and Plan: Possible seizure disorder with partial or brief complex partial seizures. Exact seizure history in nature was not known as her previous workup was not available. She has been taking relatively large dose of levetiracetam. According to her, seizures included few seconds of eye fluttering. My recommendation is to manage her psychiatric symptoms and leave seizure management to her previous neurologist where are proper workup is known. Sometime full seizure control is difficult to achieve but as far as proper definition of this condition is concerned, she might already have workup done with her neurologist. Plan Plan 1. Gather collateral information. 2. Continue with same medications. 3. We will start antipsychotics to target psychosis. Apparently she had been on long-acting Abilify or Aristada. 4. We will order a new CT scan 03/14/24 cont tx plan asses mse castorena sz dx may be linkage Reason for continued inpatient stay Substantial Risk for: inability to function and rapid decompensation Time Spent With Patient Time: Total time managing care of this patient today ____ minutes.
[2024-03-14 20:25] VITALS: BP 119/65; PULSE 64; RESP 16; TEMP 36.2; O2SAT 95
[2024-03-14 20:27] VITALS: BP 119/65; PULSE 64
[2024-03-14] MEDS: Melatonin 3 MG TABLET 12 MG PO (20:27)
[2024-03-14] MEDS: Divalproex Sodium 500 MG TABLET.DR PO (20:27)
[2024-03-15] MEDS: Levothyroxine Sodium 100 MCG TABLET PO (05:33)
[2024-03-15 05:52] LABS: Glucose, Whole Blood 111 mg/dL (60-115)
[2024-03-15 08:00] VITALS: BP 132/60; PULSE 68; RESP 20; TEMP 36.4; O2SAT 95
[2024-03-15] MEDS: levETIRAcetam 500 MG TABLET 1500 MG PO ×2 (09:24→20:29)
[2024-03-15] MEDS: Cholecalciferol (Vitamin D3) 25 MCG TABLET 50 MCG PO (09:27)
[2024-03-15] MEDS: Pyridoxine HCl (Vitamin B6) 50 MG TABLET 25 MG PO (09:27)
[2024-03-15] MEDS: Atorvastatin Calcium 10 MG TABLET 5 MG PO (09:29)
[2024-03-15] MEDS: Cyanocobalamin (Vitamin B-12) 1,000 MCG TABLET 1000 MCG PO (09:30)
[2024-03-15] MEDS: Fluticasone/Vilanterol 100/25 BLST.W.DEV 1 PUFF INHALE (09:30)
[2024-03-15] MEDS: Topiramate 25 MG TABLET PO ×2 (09:31→20:30)
[2024-03-15] MEDS: Mirabegron 50 MG TAB.ER.24H PO (09:31)
[2024-03-15] MEDS: metFORMIN HCl 1,000 MG TABLET 1000 MG PO ×2 (09:32→20:30)
[2024-03-15 09:33] VITALS: BP 132/60
[2024-03-15] MEDS: lisinopriL 5 MG TABLET PO (09:33)
[2024-03-15] MEDS: Benztropine Mesylate 1 MG TABLET PO ×2 (09:33→20:29)
[2024-03-15 09:34] VITALS: BP 132/60; PULSE 96
[2024-03-15] MEDS: Propranolol HCL 10 MG TABLET PO (09:34)
[2024-03-15] MEDS: Psyllium seed 3.7 GM PACKET PO ×2 (09:37→20:29)
--- NOTE | 2024-03-15 14:58 | HO.PSYCHPN ---
Subjective Subjective Date of Service: 03/15/24 Reason For Visit: Psychosis Subjective Notes: Conditional Voluntary Interim History: The nursing staff reported the patient has complained of auditory and visual hallucinations, she had been attending groups and she had been compliant with treatment. She adamantly denies suicidal or homicidal ideations. The beater worker helper reported that the healthcare proxy was already invoked before. On interview the patient denies new symptoms, no side-effects with current medications. On long-acting Abilify IM once a month. Mental Status Exam Mental Status Exam Patient Appearance: Appropriate Patient Orientation: Person and Situation Level of Consciousness: Awake Patient Behavior: Guarded and Passive Mood Description: Calm Affect Description: Constricted Patient Cognition Impaired: Yes Ability to Follow Directions: Good Speech Pattern: Clear Hallucinations: None Delusions: Not Present Thought Process: Distracted and Slowed Thinking Thought Content: positive for [place] and positive for Poverty of Content Judgement: Fair Diagnostics Vital Signs (24Hr): Vital Signs - 24 hr 03/14/24 20:25 03/14/24 20:27 03/15/24 08:00 Temperature 97.2 F 97.5 F Pulse Rate 64 64 68 Respiratory Rate 16 20 Blood Pressure 119/65 119/65 132/60 Pulse Oximetry 95 95 Oxygen Delivery Method Room Air Room Air 03/15/24 09:33 03/15/24 09:34 Temperature Pulse Rate 96 Respiratory Rate Blood Pressure 132/60 132/60 Pulse Oximetry Oxygen Delivery Method BMI result Body Mass Index 37.5 Labs 03/11/24 08:09 Labs: Laboratory Results - last 48 hr 03/14/24 03/15/24 06:30 05:35 POC Glucose 109 111 Medications Medications Current Medications Acetaminophen (Acetaminophen 325 Mg Tablet) 650 mg PO Q6H PRN PRN Reason: Headache/Pain Mild Scale (1-3) Last Admin: 03/13/24 16:06 Dose: 650 mg Al Hydroxide/Mg Hydroxide (Magnesium Hydrox/Alum Hydrox 30 Ml Oral.Susp) 30 ml PO QID PRN PRN Reason: Heartburn Albuterol Sulfate (Albuterol Sulfate 90 Mcg 8 Gm Inhaler) 1 puff INHALE Q3H PRN PRN Reason: Shortness of Breath Atorvastatin Calcium (Atorvastatin Calcium 10 Mg Tablet) 5 mg PO DAILY [facility] Last Admin: 03/15/24 09:29 Dose: 5 mg Benztropine Mesylate (Benztropine Mesylate 1 Mg Tablet) 1 mg PO BID [facility] Last Admin: 03/15/24 09:33 Dose: 1 mg Cyanocobalamin (Cyanocobalamin (Vitamin B-12) 1,000 Mcg Tablet) 1,000 mcg PO DAILY [facility] Last Admin: 03/15/24 09:30 Dose: 1,000 mcg Divalproex Sodium (Divalproex Sodium 500 Mg Tablet.Dr) 500 mg PO BEDTIME [facility] Last Admin: 03/14/24 20:27 Dose: 500 mg Docusate Sodium (Docusate Sodium 100 Mg Capsule) 100 mg PO BID PRN PRN Reason: Constipation Last Admin: 03/10/24 12:34 Dose: 100 mg Fluticasone/Vilanterol (Fluticasone/Vilanterol 100/25 Blst.W.Dev) 1 puff INHALE RDAILY [facility] Last Admin: 03/15/24 09:30 Dose: 1 puff Hydroxyzine HCl (Hydroxyzine Hcl 50 Mg Tablet) 50 mg PO QID PRN PRN Reason: Anxiety Levetiracetam (Levetiracetam 500 Mg Tablet) 1,500 mg PO BID [facility] Last Admin: 03/15/24 09:24 Dose: 1,500 mg Levothyroxine Sodium (Levothyroxine Sodium 100 Mcg Tablet) 100 mcg PO DAILY@0600 [facility] Last Admin: 03/15/24 05:33 Dose: 100 mcg Lisinopril (Lisinopril 5 Mg Tablet) 5 mg PO DAILY [facility] Last Admin: 03/15/24 09:33 Dose: 5 mg Magnesium Hydroxide (Milk Of Magnesia 30 Ml Oral.Susp) 10 ml PO BID PRN PRN Reason: Constipation Melatonin (Melatonin 3 Mg Tablet) 12 mg PO BEDTIME [facility] Last Admin: 03/14/24 20:27 Dose: 12 mg Metformin HCl (Metformin Hcl 1,000 Mg Tablet) 1,000 mg PO BID [facility] Last Admin: 03/15/24 09:32 Dose: 1,000 mg Mirabegron (Mirabegron 50 Mg Tab.Er.24h) 50 mg PO DAILY [facility] Last Admin: 03/15/24 09:31 Dose: 50 mg Nystatin/Triamcinolone Acetonide (Nystatin/Triamcinolone Oint 15 Gm Tube) 1 appl TOPICAL BID [facility] Last Admin: 03/15/24 09:33 Dose: Not Given Olanzapine (Olanzapine 5 Mg Tablet) 5 mg PO BID PRN PRN Reason: Agitation Last Admin: 03/12/24 05:32 Dose: 5 mg Propranolol HCl (Propranolol Hcl 10 Mg Tablet) 10 mg PO BID [facility] Last Admin: 03/15/24 09:34 Dose: 10 mg Psyllium Hydrophilic Mucilloid (Psyllium Seed 3.7 Gm Packet) 3.7 gm PO BID [facility] Last Admin: 03/15/24 09:37 Dose: 3.7 gm Pyridoxine HCl (Pyridoxine Hcl (Vitamin B6) 50 Mg Tablet) 25 mg PO DAILY [facility] Last Admin: 03/15/24 09:27 Dose: 25 mg Senna (Sennosides 8.6 Mg Tablet) 17.2 mg PO BEDTIME PRN PRN Reason: Constipation Topiramate (Topiramate 25 Mg Tablet) 25 mg PO BID [facility] Last Admin: 03/15/24 09:31 Dose: 25 mg Trazodone HCl (Trazodone Hcl 50 Mg Tablet) 50 mg PO BEDTIME MRX1 PRN PRN Reason: Insomnia Vitamin D (Cholecalciferol (Vitamin D3) 25 Mcg Tablet) 50 mcg PO DAILY [facility] Last Admin: 03/15/24 09:27 Dose: 50 mcg Allergies Allergies Allergy/AdvReac Type Severity Reaction Status Date / Time oxcarbazepine Allergy Unknown Verified 03/10/24 01:17 [From Trileptal] peanut Allergy Unknown Verified 03/10/24 01:17 quetiapine [From Seroquel] Allergy Vomiting Verified 03/10/24 01:17 Assessment & Plan Assessment & Plan (1) Seizure disorder: Status: Acute Code(s): G40.909 - Epilepsy, unspecified, not intractable, without status epilepticus Assessment and Plan: Possible seizure disorder with partial or brief complex partial seizures. Exact seizure history in nature was not known as her previous workup was not available. She has been taking relatively large dose of levetiracetam. According to her, seizures included few seconds of eye fluttering. My recommendation is to manage her psychiatric symptoms and leave seizure management to her previous neurologist where are proper workup is known. Sometime full seizure control is difficult to achieve but as far as proper definition of this condition is concerned, she might already have workup done with her neurologist. Plan Plan 1. Gather collateral information. 2. Continue with same medications. 3. We will start antipsychotics to target psychosis. Apparently she had been on long-acting Abilify or Aristada. 4. We will order a new CT scan Reason for continued inpatient stay Substantial Risk for: inability to function, rapid decompensation and med/psych decompensation Time Spent With Patient Time: Total time managing care of this patient today __20__ minutes.
[2024-03-15 20:00] VITALS: BP 108/54; PULSE 58; RESP 18; TEMP 36.6; O2SAT 97
[2024-03-15] MEDS: Melatonin 3 MG TABLET 12 MG PO (20:29)
[2024-03-15] MEDS: Divalproex Sodium 500 MG TABLET.DR PO (20:30)
[2024-03-15 20:35] VITALS: PULSE 58
[2024-03-16] MEDS: Levothyroxine Sodium 100 MCG TABLET PO (06:28)
[2024-03-16 07:02] LABS: Glucose, Whole Blood 111 mg/dL (60-115)
[2024-03-16 08:08] VITALS: BP 134/57; PULSE 68; RESP 15; TEMP 36.9; O2SAT 98
[2024-03-16] MEDS: Fluticasone/Vilanterol 100/25 BLST.W.DEV 1 PUFF INHALE (08:09)
[2024-03-16] MEDS: Pyridoxine HCl (Vitamin B6) 50 MG TABLET 25 MG PO (08:11)
[2024-03-16] MEDS: metFORMIN HCl 1,000 MG TABLET 1000 MG PO ×2 (08:11→20:00)
[2024-03-16] MEDS: Mirabegron 50 MG TAB.ER.24H PO (08:11)
[2024-03-16] MEDS: levETIRAcetam 500 MG TABLET 1500 MG PO ×2 (08:11→20:01)
[2024-03-16] MEDS: Propranolol HCL 10 MG TABLET PO (08:12)
[2024-03-16] MEDS: Atorvastatin Calcium 10 MG TABLET 5 MG PO (08:12)
[2024-03-16] MEDS: Benztropine Mesylate 1 MG TABLET PO ×2 (08:12→20:00)
[2024-03-16] MEDS: lisinopriL 5 MG TABLET PO (08:12)
[2024-03-16] MEDS: Topiramate 25 MG TABLET PO ×2 (08:13→20:00)
[2024-03-16] MEDS: Psyllium seed 3.7 GM PACKET PO ×2 (08:13→20:03)
[2024-03-16] MEDS: Cholecalciferol (Vitamin D3) 25 MCG TABLET 50 MCG PO (08:13)
[2024-03-16] MEDS: Cyanocobalamin (Vitamin B-12) 1,000 MCG TABLET 1000 MCG PO (10:37)
[2024-03-16 19:58] VITALS: BP 99/62; PULSE 72; RESP 17; TEMP 36.6; O2SAT 99
[2024-03-16] MEDS: Divalproex Sodium 500 MG TABLET.DR PO (20:00)
[2024-03-16] MEDS: Melatonin 3 MG TABLET 12 MG PO (20:01)
--- NOTE | 2024-03-16 23:09 | P.PNPSI_ITS ---
Subjective Subjective Date of Service: 03/16/24 Reason For Visit: Psychosis Subjective Notes: Conditional Voluntary and 3 Day Interim History: Pt has been calm cooperative accepting tx wishes for d/c Mental Status Exam Mental Status Exam Patient Appearance: Appropriate Patient Orientation: Person, Place and Situation Level of Consciousness: Awake Patient Behavior: Guarded and Passive Mood Description: Calm Affect Description: Constricted Patient Cognition Impaired: Yes Ability to Follow Directions: Good Speech Pattern: Clear Hallucinations: None Delusions: Not Present Thought Process: Distracted and Slowed Thinking Thought Content: positive for [place] and positive for Poverty of Content Judgement: Fair Diagnostics Vital Signs (24Hr): Vital Signs - 24 hr 03/16/24 08:08 03/16/24 19:58 Temperature 98.4 F 97.8 F Pulse Rate 68 72 Respiratory Rate 15 17 Blood Pressure 134/57 L 99/62 Pulse Oximetry 98 99 Oxygen Delivery Method Room Air Room Air BMI result Body Mass Index 37.5 Labs 03/20/24 08:19 03/20/24 08:19 Labs: Laboratory Results - last 48 hr 03/15/24 03/16/24 05:35 06:31 POC Glucose 111 111 Medications Medications Current Medications Acetaminophen (Acetaminophen 325 Mg Tablet) 650 mg PO Q6H PRN PRN Reason: Headache/Pain Mild Scale (1-3) Last Admin: 03/13/24 16:06 Dose: 650 mg Al Hydroxide/Mg Hydroxide (Magnesium Hydrox/Alum Hydrox 30 Ml Oral.Susp) 30 ml PO QID PRN PRN Reason: Heartburn Albuterol Sulfate (Albuterol Sulfate 90 Mcg 8 Gm Inhaler) 1 puff INHALE Q3H PRN PRN Reason: Shortness of Breath Atorvastatin Calcium (Atorvastatin Calcium 10 Mg Tablet) 5 mg PO DAILY [facility] Last Admin: 03/16/24 08:12 Dose: 5 mg Benztropine Mesylate (Benztropine Mesylate 1 Mg Tablet) 1 mg PO BID [facility] Last Admin: 03/16/24 20:00 Dose: 1 mg Cyanocobalamin (Cyanocobalamin (Vitamin B-12) 1,000 Mcg Tablet) 1,000 mcg PO DAILY [facility] Last Admin: 03/16/24 10:37 Dose: 1,000 mcg Divalproex Sodium (Divalproex Sodium 500 Mg Tablet.Dr) 500 mg PO BEDTIME [facility] Last Admin: 03/16/24 20:00 Dose: 500 mg Docusate Sodium (Docusate Sodium 100 Mg Capsule) 100 mg PO BID PRN PRN Reason: Constipation Last Admin: 03/10/24 12:34 Dose: 100 mg Fluticasone/Vilanterol (Fluticasone/Vilanterol 100/25 Blst.W.Dev) 1 puff INHALE RDAILY [facility] Last Admin: 03/16/24 08:09 Dose: 1 puff Hydroxyzine HCl (Hydroxyzine Hcl 50 Mg Tablet) 50 mg PO QID PRN PRN Reason: Anxiety Levetiracetam (Levetiracetam 500 Mg Tablet) 1,500 mg PO BID [facility] Last Admin: 03/16/24 20:01 Dose: 1,500 mg Levothyroxine Sodium (Levothyroxine Sodium 100 Mcg Tablet) 100 mcg PO DAILY@0600 [facility] Last Admin: 03/16/24 06:28 Dose: 100 mcg Lisinopril (Lisinopril 5 Mg Tablet) 5 mg PO DAILY [facility] Last Admin: 03/16/24 08:12 Dose: 5 mg Magnesium Hydroxide (Milk Of Magnesia 30 Ml Oral.Susp) 10 ml PO BID PRN PRN Reason: Constipation Melatonin (Melatonin 3 Mg Tablet) 12 mg PO BEDTIME [facility] Last Admin: 03/16/24 20:01 Dose: 12 mg Metformin HCl (Metformin Hcl 1,000 Mg Tablet) 1,000 mg PO BID [facility] Last Admin: 03/16/24 20:00 Dose: 1,000 mg Mirabegron (Mirabegron 50 Mg Tab.Er.24h) 50 mg PO DAILY [facility] Last Admin: 03/16/24 08:11 Dose: 50 mg Nystatin/Triamcinolone Acetonide (Nystatin/Triamcinolone Oint 15 Gm Tube) 1 appl TOPICAL BID [facility] Last Admin: 03/16/24 20:03 Dose: Not Given Olanzapine (Olanzapine 5 Mg Tablet) 5 mg PO BID PRN PRN Reason: Agitation Last Admin: 03/12/24 05:32 Dose: 5 mg Propranolol HCl (Propranolol Hcl 10 Mg Tablet) 10 mg PO BID [facility] Last Admin: 03/16/24 20:04 Dose: Not Given Psyllium Hydrophilic Mucilloid (Psyllium Seed 3.7 Gm Packet) 3.7 gm PO BID [facility] Last Admin: 03/16/24 20:03 Dose: 3.7 gm Pyridoxine HCl (Pyridoxine Hcl (Vitamin B6) 50 Mg Tablet) 25 mg PO DAILY [facility] Last Admin: 03/16/24 08:11 Dose: 25 mg Senna (Sennosides 8.6 Mg Tablet) 17.2 mg PO BEDTIME PRN PRN Reason: Constipation Topiramate (Topiramate 25 Mg Tablet) 25 mg PO BID [facility] Last Admin: 03/16/24 20:00 Dose: 25 mg Trazodone HCl (Trazodone Hcl 50 Mg Tablet) 50 mg PO BEDTIME MRX1 PRN PRN Reason: Insomnia Vitamin D (Cholecalciferol (Vitamin D3) 25 Mcg Tablet) 50 mcg PO DAILY [facility] Last Admin: 03/16/24 08:13 Dose: 50 mcg Allergies Allergies Allergy/AdvReac Type Severity Reaction Status Date / Time oxcarbazepine Allergy Unknown Verified 03/10/24 01:17 [From Trileptal] peanut Allergy Unknown Verified 03/10/24 01:17 quetiapine [From Seroquel] Allergy Vomiting Verified 03/10/24 01:17 Assessment & Plan Assessment & Plan (1) Seizure disorder: Status: Acute Code(s): G40.909 - Epilepsy, unspecified, not intractable, without status epilepticus Assessment and Plan: Possible seizure disorder with partial or brief complex partial seizures. Exact seizure history in nature was not known as her previous workup was not available. She has been taking relatively large dose of levetiracetam. According to her, seizures included few seconds of eye fluttering. My recommendation is to manage her psychiatric symptoms and leave seizure management to her previous neurologist where are proper workup is known. Sometime full seizure control is difficult to achieve but as far as proper definition of this condition is concerned, she might already have workup done with her neurologist. (2) Schizoaffective disorder: Status: Acute Code(s): F25.9 - Schizoaffective disorder, unspecified Plan 03/16/24 cont plan of care pt seen case reviewed nursing staff Reason for continued inpatient stay Substantial Risk for: inability to function and rapid decompensation Time Spent With Patient Time: Total time managing care of this patient today ____ minutes.
[2024-03-17] MEDS: Levothyroxine Sodium 100 MCG TABLET PO (05:35)
[2024-03-17 05:40] LABS: Glucose, Whole Blood 118 mg/dL (60-115)
[2024-03-17 08:08] VITALS: BP 117/66; PULSE 86; RESP 15; TEMP 36.8; O2SAT 100
[2024-03-17] MEDS: Psyllium seed 3.7 GM PACKET PO ×2 (08:09→20:11)
[2024-03-17] MEDS: Fluticasone/Vilanterol 100/25 BLST.W.DEV 1 PUFF INHALE (08:09)
[2024-03-17] MEDS: lisinopriL 5 MG TABLET PO (08:11)
[2024-03-17] MEDS: Propranolol HCL 10 MG TABLET PO ×2 (08:11→20:01)
[2024-03-17] MEDS: Topiramate 25 MG TABLET PO ×2 (08:11→20:01)
[2024-03-17] MEDS: metFORMIN HCl 1,000 MG TABLET 1000 MG PO ×2 (08:11→20:02)
[2024-03-17] MEDS: Cholecalciferol (Vitamin D3) 25 MCG TABLET 50 MCG PO (08:11)
[2024-03-17] MEDS: levETIRAcetam 500 MG TABLET 1500 MG PO ×2 (08:12→20:02)
[2024-03-17] MEDS: Atorvastatin Calcium 10 MG TABLET 5 MG PO (08:12)
[2024-03-17] MEDS: Cyanocobalamin (Vitamin B-12) 1,000 MCG TABLET 1000 MCG PO (08:12)
[2024-03-17] MEDS: Mirabegron 50 MG TAB.ER.24H PO (08:12)
[2024-03-17] MEDS: Benztropine Mesylate 1 MG TABLET PO ×2 (08:12→20:02)
[2024-03-17] MEDS: Pyridoxine HCl (Vitamin B6) 50 MG TABLET 25 MG PO (08:13)
[2024-03-17] MEDS: Acetaminophen 325 MG TABLET 650 MG PO (08:19)
[2024-03-17 19:59] VITALS: BP 101/57; PULSE 66; RESP 16; TEMP 36.2; O2SAT 98
[2024-03-17 20:01] VITALS: BP 101/57; PULSE 66
[2024-03-17] MEDS: Divalproex Sodium 500 MG TABLET.DR PO (20:01)
[2024-03-17] MEDS: Melatonin 3 MG TABLET 12 MG PO (20:02)
[2024-03-18] MEDS: Levothyroxine Sodium 100 MCG TABLET PO (05:38)
[2024-03-18 05:46] LABS: Glucose, Whole Blood 110 mg/dL (60-115)
[2024-03-18 08:00] VITALS: BP 111/57; PULSE 71; RESP 18; TEMP 36.2; O2SAT 97
[2024-03-18] MEDS: Cholecalciferol (Vitamin D3) 25 MCG TABLET 50 MCG PO (08:44)
[2024-03-18] MEDS: Atorvastatin Calcium 10 MG TABLET 5 MG PO (08:45)
[2024-03-18] MEDS: levETIRAcetam 500 MG TABLET 1500 MG PO ×2 (08:47→20:36)
[2024-03-18] MEDS: Cyanocobalamin (Vitamin B-12) 1,000 MCG TABLET 1000 MCG PO (08:48)
[2024-03-18] MEDS: Topiramate 25 MG TABLET PO ×2 (08:49→20:35)
[2024-03-18] MEDS: Benztropine Mesylate 1 MG TABLET PO ×2 (08:49→20:36)
[2024-03-18] MEDS: metFORMIN HCl 1,000 MG TABLET 1000 MG PO ×2 (08:50→20:35)
[2024-03-18] MEDS: Mirabegron 50 MG TAB.ER.24H PO (08:50)
[2024-03-18] MEDS: Pyridoxine HCl (Vitamin B6) 50 MG TABLET 25 MG PO (08:51)
[2024-03-18] MEDS: Fluticasone/Vilanterol 100/25 BLST.W.DEV 1 PUFF INHALE (08:52)
[2024-03-18] MEDS: Psyllium seed 3.7 GM PACKET PO (08:58)
[2024-03-18 09:01] VITALS: BP 111/57
[2024-03-18 09:02] VITALS: BP 111/57; PULSE 71
[2024-03-18 09:33] LABS: Estimated Glomerular Filt Rate 56
[2024-03-18] MEDS: Albuterol Sulfate 90 MCG 8 GM INHALER 1 PUFF INHALE (16:09)
--- NOTE | 2024-03-18 16:49 | P.PNPSI_ITS ---
Subjective Subjective Date of Service: 03/18/24 Reason For Visit: Psychosis Subjective Notes: Conditional Voluntary and 3 Day Interim History: The nursing staff reported the patient slept late last night and woke up early today probably 6 hours. On interview the patient reported that she wants to go home and she signed a 3 day notice. No changes in her mental status. Mental Status Exam Mental Status Exam Patient Appearance: Appropriate Patient Orientation: Person and Situation Level of Consciousness: Awake and Appropriate Patient Behavior: Guarded and Passive Mood Description: Withdrawn Affect Description: Constricted Patient Cognition Impaired: Yes Ability to Follow Directions: Good Speech Pattern: Clear Hallucinations: None Delusions: Not Present Thought Process: Distracted and Slowed Thinking Thought Content: positive for [place] and positive for Poverty of Content Judgement: Fair Diagnostics Vital Signs (24Hr): Vital Signs - 24 hr 03/17/24 19:59 03/17/24 20:01 03/18/24 08:00 Temperature 97.2 F 97.2 F Pulse Rate 66 66 71 Respiratory Rate 16 18 Blood Pressure 101/57 L 101/57 L 111/57 L Pulse Oximetry 98 97 Oxygen Delivery Method Room Air Room Air 03/18/24 09:01 03/18/24 09:02 Temperature Pulse Rate 71 Respiratory Rate Blood Pressure 111/57 L 111/57 L Pulse Oximetry Oxygen Delivery Method BMI result Body Mass Index 37.5 Labs 03/18/24 08:21 Labs: Laboratory Results - last 48 hr 03/17/24 03/18/24 03/18/24 05:34 05:36 08:21 Creatinine 1.00 Estim Creat Clear Calc 65.0 Estimated GFR 56 POC Glucose 118 H 110 Imaging Radiology Impressions: ITS Impressions Head CT 03/18/24 09:53 IMPRESSION: 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 Electronically signed by: Justen Santillan MD 03/18/2024 03:04 PM [facility] Medications Medications Current Medications Acetaminophen (Acetaminophen 325 Mg Tablet) 650 mg PO Q6H PRN PRN Reason: Headache/Pain Mild Scale (1-3) Last Admin: 03/17/24 08:19 Dose: 650 mg Al Hydroxide/Mg Hydroxide (Magnesium Hydrox/Alum Hydrox 30 Ml Oral.Susp) 30 ml PO QID PRN PRN Reason: Heartburn Albuterol Sulfate (Albuterol Sulfate 90 Mcg 8 Gm Inhaler) 1 puff INHALE Q3H PRN PRN Reason: Shortness of Breath Last Admin: 03/18/24 16:09 Dose: 1 puff Atorvastatin Calcium (Atorvastatin Calcium 10 Mg Tablet) 5 mg PO DAILY [facility] Last Admin: 03/18/24 08:45 Dose: 5 mg Benztropine Mesylate (Benztropine Mesylate 1 Mg Tablet) 1 mg PO BID [facility] Last Admin: 03/18/24 08:49 Dose: 1 mg Cyanocobalamin (Cyanocobalamin (Vitamin B-12) 1,000 Mcg Tablet) 1,000 mcg PO DAILY [facility] Last Admin: 03/18/24 08:48 Dose: 1,000 mcg Divalproex Sodium (Divalproex Sodium 500 Mg Tablet.Dr) 500 mg PO BEDTIME [facility] Last Admin: 03/17/24 20:01 Dose: 500 mg Docusate Sodium (Docusate Sodium 100 Mg Capsule) 100 mg PO BID PRN PRN Reason: Constipation Last Admin: 03/10/24 12:34 Dose: 100 mg Fluticasone/Vilanterol (Fluticasone/Vilanterol 100/25 Blst.W.Dev) 1 puff INHALE RDAILY [facility] Last Admin: 03/18/24 08:52 Dose: 1 puff Hydroxyzine HCl (Hydroxyzine Hcl 50 Mg Tablet) 50 mg PO QID PRN PRN Reason: Anxiety Levetiracetam (Levetiracetam 500 Mg Tablet) 1,500 mg PO BID [facility] Last Admin: 03/18/24 08:47 Dose: 1,500 mg Levothyroxine Sodium (Levothyroxine Sodium 100 Mcg Tablet) 100 mcg PO DAILY@0600 [facility] Last Admin: 03/18/24 05:38 Dose: 100 mcg Lisinopril (Lisinopril 5 Mg Tablet) 5 mg PO DAILY [facility] Last Admin: 03/18/24 09:01 Dose: Not Given Magnesium Hydroxide (Milk Of Magnesia 30 Ml Oral.Susp) 10 ml PO BID PRN PRN Reason: Constipation Melatonin (Melatonin 3 Mg Tablet) 12 mg PO BEDTIME [facility] Last Admin: 03/17/24 20:02 Dose: 12 mg Metformin HCl (Metformin Hcl 1,000 Mg Tablet) 1,000 mg PO BID [facility] Last Admin: 03/18/24 08:50 Dose: 1,000 mg Mirabegron (Mirabegron 50 Mg Tab.Er.24h) 50 mg PO DAILY [facility] Last Admin: 03/18/24 08:50 Dose: 50 mg Nystatin/Triamcinolone Acetonide (Nystatin/Triamcinolone Oint 15 Gm Tube) 1 appl TOPICAL BID [facility] Last Admin: 03/18/24 09:03 Dose: Not Given Olanzapine (Olanzapine 5 Mg Tablet) 5 mg PO BID PRN PRN Reason: Agitation Last Admin: 03/12/24 05:32 Dose: 5 mg Propranolol HCl (Propranolol Hcl 10 Mg Tablet) 10 mg PO BID [facility] Last Admin: 03/18/24 09:02 Dose: Not Given Psyllium Hydrophilic Mucilloid (Psyllium Seed 3.7 Gm Packet) 3.7 gm PO BID [facility] Last Admin: 03/18/24 08:58 Dose: 3.7 gm Pyridoxine HCl (Pyridoxine Hcl (Vitamin B6) 50 Mg Tablet) 25 mg PO DAILY [facility] Last Admin: 03/18/24 08:51 Dose: 25 mg Senna (Sennosides 8.6 Mg Tablet) 17.2 mg PO BEDTIME PRN PRN Reason: Constipation Topiramate (Topiramate 25 Mg Tablet) 25 mg PO BID [facility] Last Admin: 03/18/24 08:49 Dose: 25 mg Trazodone HCl (Trazodone Hcl 50 Mg Tablet) 50 mg PO BEDTIME MRX1 PRN PRN Reason: Insomnia Vitamin D (Cholecalciferol (Vitamin D3) 25 Mcg Tablet) 50 mcg PO DAILY [facility] Last Admin: 03/18/24 08:44 Dose: 50 mcg Allergies Allergies Allergy/AdvReac Type Severity Reaction Status Date / Time oxcarbazepine Allergy Unknown Verified 03/10/24 01:17 [From Trileptal] peanut Allergy Unknown Verified 03/10/24 01:17 quetiapine [From Seroquel] Allergy Vomiting Verified 03/10/24 01:17 Assessment & Plan Assessment & Plan (1) Seizure disorder: Status: Acute Code(s): G40.909 - Epilepsy, unspecified, not intractable, without status epilepticus Assessment and Plan: Possible seizure disorder with partial or brief complex partial seizures. Exact seizure history in nature was not known as her previous workup was not available. She has been taking relatively large dose of levetiracetam. According to her, seizures included few seconds of eye fluttering. My recommendation is to manage her psychiatric symptoms and leave seizure management to her previous neurologist where are proper workup is known. Sometime full seizure control is difficult to achieve but as far as proper definition of this condition is concerned, she might already have workup done with her neurologist. Plan Plan 1. Gather collateral information. 2. Continue with same medications. 3. We will start antipsychotics to target psychosis. Apparently she had been on long-acting Abilify or Aristada. 4. We will order a new CT scan Reason for continued inpatient stay Substantial Risk for: inability to function, rapid decompensation and med/psych decompensation Time Spent With Patient Time: Total time managing care of this patient today _20___ minutes.
--- NOTE | 2024-03-18 18:30 | PC.NURSE ---
Patient had CT scan of the head/brain today. 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 Also pt signed [address] Brizuela today.
[2024-03-18 20:00] VITALS: BP 127/72; PULSE 72; RESP 18; TEMP 36.6; O2SAT 97
[2024-03-18] MEDS: Divalproex Sodium 500 MG TABLET.DR PO (20:35)
[2024-03-18] MEDS: Propranolol HCL 10 MG TABLET PO (20:35)
[2024-03-18] MEDS: Melatonin 3 MG TABLET 12 MG PO (20:35)
[2024-03-18] MEDS: Acetaminophen 325 MG TABLET 650 MG PO (20:40)
[2024-03-19] MEDS: Levothyroxine Sodium 100 MCG TABLET PO (06:02)
[2024-03-19 06:41] LABS: Glucose, Whole Blood 109 mg/dL (60-115)
[2024-03-19 08:30] VITALS: BP 126/77; PULSE 77; RESP 18; TEMP 36.6; O2SAT 97
[2024-03-19] MEDS: Fluticasone/Vilanterol 100/25 BLST.W.DEV 1 PUFF INHALE (09:01)
[2024-03-19] MEDS: lisinopriL 5 MG TABLET PO (09:02)
[2024-03-19] MEDS: levETIRAcetam 500 MG TABLET 1500 MG PO ×2 (09:02→21:15)
[2024-03-19] MEDS: Topiramate 25 MG TABLET PO ×2 (09:03→21:17)
[2024-03-19] MEDS: Atorvastatin Calcium 10 MG TABLET 5 MG PO (09:03)
[2024-03-19] MEDS: Pyridoxine HCl (Vitamin B6) 50 MG TABLET 25 MG PO (09:04)
[2024-03-19] MEDS: Cyanocobalamin (Vitamin B-12) 1,000 MCG TABLET 1000 MCG PO (09:05)
[2024-03-19] MEDS: Cholecalciferol (Vitamin D3) 25 MCG TABLET 50 MCG PO (09:05)
[2024-03-19] MEDS: metFORMIN HCl 1,000 MG TABLET 1000 MG PO ×2 (09:05→21:16)
[2024-03-19] MEDS: Benztropine Mesylate 1 MG TABLET PO ×2 (09:05→21:15)
[2024-03-19] MEDS: Propranolol HCL 10 MG TABLET PO ×2 (09:05→21:15)
[2024-03-19] MEDS: Mirabegron 50 MG TAB.ER.24H PO (09:06)
[2024-03-19] MEDS: Psyllium seed 3.7 GM PACKET PO ×2 (09:06→21:17)
[2024-03-19] MEDS: Acetaminophen 325 MG TABLET 650 MG PO ×2 (15:18→22:41)
[2024-03-19] MEDS: OLANZapine 5 MG TABLET PO (16:13)
--- NOTE | 2024-03-19 16:49 | P.PNPSI_ITS ---
Subjective Subjective Date of Service: 03/19/24 Reason For Visit: Psychosis Subjective Notes: Conditional Voluntary and 3 Day Interim History: The nursing staff reported the patient had been calm eating well, she signed a 3 day notice and expires tomorrow. She has declined PRNs and apparently she had been occasionally having visual and auditory hallucination self dialogue in. The occupational therapist reported that she score 4.4 on the Eric test and 19/30 on the [place] test. Today we had a meeting over soon with her providers and we coordinated care. We are going to start Zyprexa in the afternoon on top of her Aristada long-acting. Mental Status Exam Mental Status Exam Patient Appearance: Well Grooomed and Appropriate Patient Orientation: Person and Situation Level of Consciousness: Awake and Appropriate Patient Behavior: Guarded and Passive Mood Description: Withdrawn Affect Description: Constricted Patient Cognition Impaired: Yes Ability to Follow Directions: Good Speech Pattern: Clear Hallucinations: None Delusions: Ideas of Reference Thought Process: Distracted and Slowed Thinking Thought Content: positive for [place] and positive for Poverty of Content Judgement: Fair Diagnostics Vital Signs (24Hr): Vital Signs - 24 hr 03/18/24 20:00 03/19/24 08:30 Temperature 97.9 F 97.9 F Pulse Rate 72 77 Respiratory Rate 18 18 Blood Pressure 127/72 126/77 Pulse Oximetry 97 97 Oxygen Delivery Method Room Air Room Air BMI result Body Mass Index 37.5 Labs 03/18/24 08:21 Labs: Laboratory Results - last 48 hr 03/18/24 03/18/24 03/19/24 05:36 08:21 06:02 Creatinine 1.00 Estim Creat Clear Calc 65.0 Estimated GFR 56 POC Glucose 110 109 Imaging Radiology Impressions: ITS Impressions Head CT 03/18/24 09:53 IMPRESSION: 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 Electronically signed by: Justen Santillan MD 03/18/2024 03:04 PM [facility] Medications Medications Current Medications Acetaminophen (Acetaminophen 325 Mg Tablet) 650 mg PO Q6H PRN PRN Reason: Headache/Pain Mild Scale (1-3) Last Admin: 03/19/24 15:18 Dose: 650 mg Al Hydroxide/Mg Hydroxide (Magnesium Hydrox/Alum Hydrox 30 Ml Oral.Susp) 30 ml PO QID PRN PRN Reason: Heartburn Albuterol Sulfate (Albuterol Sulfate 90 Mcg 8 Gm Inhaler) 1 puff INHALE Q3H PRN PRN Reason: Shortness of Breath Last Admin: 03/18/24 16:09 Dose: 1 puff Atorvastatin Calcium (Atorvastatin Calcium 10 Mg Tablet) 5 mg PO DAILY [facility] Last Admin: 03/19/24 09:03 Dose: 5 mg Benztropine Mesylate (Benztropine Mesylate 1 Mg Tablet) 1 mg PO BID [facility] Last Admin: 03/19/24 09:05 Dose: 1 mg Cyanocobalamin (Cyanocobalamin (Vitamin B-12) 1,000 Mcg Tablet) 1,000 mcg PO DAILY [facility] Last Admin: 03/19/24 09:05 Dose: 1,000 mcg Divalproex Sodium (Divalproex Sodium 500 Mg Tablet.Dr) 500 mg PO BEDTIME [facility] Last Admin: 03/18/24 20:35 Dose: 500 mg Docusate Sodium (Docusate Sodium 100 Mg Capsule) 100 mg PO BID PRN PRN Reason: Constipation Last Admin: 03/10/24 12:34 Dose: 100 mg Fluticasone/Vilanterol (Fluticasone/Vilanterol 100/25 Blst.W.Dev) 1 puff INHALE RDAILY [facility] Last Admin: 03/19/24 09:01 Dose: 1 puff Hydroxyzine HCl (Hydroxyzine Hcl 50 Mg Tablet) 50 mg PO QID PRN PRN Reason: Anxiety Levetiracetam (Levetiracetam 500 Mg Tablet) 1,500 mg PO BID [facility] Last Admin: 03/19/24 09:02 Dose: 1,500 mg Levothyroxine Sodium (Levothyroxine Sodium 100 Mcg Tablet) 100 mcg PO DAILY@0600 [facility] Last Admin: 03/19/24 06:02 Dose: 100 mcg Lisinopril (Lisinopril 5 Mg Tablet) 5 mg PO DAILY [facility] Last Admin: 03/19/24 09:02 Dose: 5 mg Magnesium Hydroxide (Milk Of Magnesia 30 Ml Oral.Susp) 10 ml PO BID PRN PRN Reason: Constipation Melatonin (Melatonin 3 Mg Tablet) 12 mg PO BEDTIME [facility] Last Admin: 03/18/24 20:35 Dose: 12 mg Metformin HCl (Metformin Hcl 1,000 Mg Tablet) 1,000 mg PO BID [facility] Last Admin: 03/19/24 09:05 Dose: 1,000 mg Mirabegron (Mirabegron 50 Mg Tab.Er.24h) 50 mg PO DAILY [facility] Last Admin: 03/19/24 09:06 Dose: 50 mg Nystatin/Triamcinolone Acetonide (Nystatin/Triamcinolone Oint 15 Gm Tube) 1 appl TOPICAL BID [facility] Last Admin: 03/19/24 09:06 Dose: Not Given Olanzapine (Olanzapine 5 Mg Tablet) 5 mg PO BID PRN PRN Reason: Agitation Last Admin: 03/12/24 05:32 Dose: 5 mg Olanzapine (Olanzapine 5 Mg Tablet) 5 mg PO DAILY@1630 [facility] Last Admin: 03/19/24 16:13 Dose: 5 mg Propranolol HCl (Propranolol Hcl 10 Mg Tablet) 10 mg PO BID [facility] Last Admin: 03/19/24 09:05 Dose: 10 mg Psyllium Hydrophilic Mucilloid (Psyllium Seed 3.7 Gm Packet) 3.7 gm PO BID [facility] Last Admin: 03/19/24 09:06 Dose: 3.7 gm Pyridoxine HCl (Pyridoxine Hcl (Vitamin B6) 50 Mg Tablet) 25 mg PO DAILY [facility] Last Admin: 03/19/24 09:04 Dose: 25 mg Senna (Sennosides 8.6 Mg Tablet) 17.2 mg PO BEDTIME PRN PRN Reason: Constipation Topiramate (Topiramate 25 Mg Tablet) 25 mg PO BID [facility] Last Admin: 03/19/24 09:03 Dose: 25 mg Trazodone HCl (Trazodone Hcl 50 Mg Tablet) 50 mg PO BEDTIME MRX1 PRN PRN Reason: Insomnia Vitamin D (Cholecalciferol (Vitamin D3) 25 Mcg Tablet) 50 mcg PO DAILY [facility] Last Admin: 03/19/24 09:05 Dose: 50 mcg Allergies Allergies Allergy/AdvReac Type Severity Reaction Status Date / Time oxcarbazepine Allergy Unknown Verified 03/10/24 01:17 [From Trileptal] peanut Allergy Unknown Verified 03/10/24 01:17 quetiapine [From Seroquel] Allergy Vomiting Verified 03/10/24 01:17 Assessment & Plan Assessment & Plan (1) Seizure disorder: Status: Acute Code(s): G40.909 - Epilepsy, unspecified, not intractable, without status epilepticus Assessment and Plan: Possible seizure disorder with partial or brief complex partial seizures. Exact seizure history in nature was not known as her previous workup was not available. She has been taking relatively large dose of levetiracetam. According to her, seizures included few seconds of eye fluttering. My recommendation is to manage her psychiatric symptoms and leave seizure management to her previous neurologist where are proper workup is known. Sometime full seizure control is difficult to achieve but as far as proper definition of this condition is concerned, she might already have workup done with her neurologist. Plan Plan 1. Gather collateral information. 2. Continue with same medications. 3. We will start antipsychotics to target psychosis. Apparently she had been on long-acting Abilify or Aristada. 4. We will order a new CT scan. 5. Zyprexa 5 mg p.o. at 16:00. Reason for continued inpatient stay Substantial Risk for: inability to function, rapid decompensation and med/psych decompensation Time Spent With Patient Time: Total time managing care of this patient today __20__ minutes.
[2024-03-19 20:00] VITALS: BP 109/65; PULSE 66; RESP 16; TEMP 36.6; O2SAT 97
[2024-03-19 21:15] VITALS: BP 109/65; PULSE 66
[2024-03-19] MEDS: Melatonin 3 MG TABLET 12 MG PO (21:15)
[2024-03-19] MEDS: Divalproex Sodium 500 MG TABLET.DR PO (21:15)
[2024-03-20 06:44] LABS: Glucose, Whole Blood 110 mg/dL (60-115)
[2024-03-20] MEDS: Levothyroxine Sodium 100 MCG TABLET PO (06:44)
--- NOTE | 2024-03-20 07:35 | PM.PSYDC ---
DS: Providers Provider Date of Service: 03/20/24 Date of admission: 03/10/24 00:47 Date of discharge: 03/20/24 Primary care physician: Regulo Ivy CNP Attending physician on admission: Victor M Wells Consults: 03/10/24 01:30 Consult to Hospitalist Routine Comment: Consulting Provider[place] [facility] Reason For Exam: OSH admission 03/10/24 11:46 Consult to Neurology Routine Consulting Provider: [facility] Reason for consultation: Sz D/O, Rxed 5 AEDs, reportedly. review regimen. Has provider been notified: No Discharging clinician: Jarad Caceres DS: Diagnosis Discharge Diagnosis (1) Seizure disorder: Status: Acute DS: Medications Discharge Medications Home Medications: Home Medications ?Medication ?Instructions ?Recorded ?Confirmed Colace 100 cap PO BID PRN Constipation 03/10/24 03/10/24 Depakote 500 mg PO BEDTIME 03/10/24 03/10/24 Keppra 1,500 mg PO BID 03/10/24 03/10/24 Maalox 30 ml PO QID PRN Heartburn 03/10/24 03/10/24 Milk of Magnesia 10 ml PO BID PRN Constipation 03/10/24 03/10/24 Myrbetriq 50 mg PO DAILY 03/10/24 03/10/24 [place] 3 1 cap PO DAILY 03/10/24 03/10/24 Zyprexa 5 mg PO BID PRN Agitation 03/10/24 03/10/24 benztropine 1 mg PO BID 03/10/24 03/10/24 cholecalciferol (vitamin D3) 50 mcg PO DAILY 03/10/24 03/10/24 cyanocobalamin (vitamin B-12) 1,000 mcg PO DAILY 03/10/24 03/10/24 fluticasone furoate-vilanterol 1 inhaler inhalation DIRECTED 03/10/24 gabapentin 100 mg PO TID 03/10/24 03/10/24 hydroxyzine HCl 50 mg PO QID PRN Anxiety 03/10/24 03/10/24 levothyroxine 100 mcg PO DAILY 03/10/24 03/10/24 lisinopril 5 mg PO DAILY 03/10/24 03/10/24 melatonin 12 mg PO BEDTIME 03/10/24 03/10/24 metformin 1,000 mg PO BID 03/10/24 03/10/24 montelukast 10 mg PO DAILY 03/10/24 03/10/24 nystatin 1 applicator topical BID 03/10/24 nystatin-triamcinolone 100,000 1 appl topical BID 03/10/24 03/10/24 unit/gram-0.1 % topical ointment propranolol 10 mg PO BID 03/10/24 03/10/24 psyllium 2 packet PO BID 03/10/24 03/10/24 psyllium 2.5 g PO DIRECTED 03/10/24 pyridoxine (vitamin B6) 25 mg PO DAILY 03/10/24 03/10/24 senna 17.2 mg PO BEDTIME PRN Constipation 03/10/24 03/10/24 topiramate 50 mg PO BEDTIME 03/10/24 03/10/24 topiramate 100 mg tablet 100 mg PO BID@1200,2100 03/10/24 03/10/24 trazodone 100 mg PO BEDTIME 03/10/24 03/10/24 Previous Rx's ?Medication ?Instructions ?Recorded Aristada 662 mg IM Q6W 30 days #1 kit 03/20/24 acetaminophen 650 mg 1,300 mg (2 x 650 mg) PO Q8H PRN 03/20/24 tablet,extended release Pain 30 days #90 tabs albuterol 90 mcg inhalation Q4H PRN SOB #1 03/20/24 inhaler aluminum-magnesium hydroxide 200 30 ml PO QID PRN Heartburn 30 days 03/20/24 mg-200 mg/5 mL oral suspension #300 mL (MAG-AL) benztropine 1 mg tablet 1 mg PO BID 30 days #60 tabs 03/20/24 cholecalciferol (vitamin D3) 25 50 mcg (2 x 25 mcg (1,000 unit)) 03/20/24 mcg (1,000 unit) tablet PO DAILY 30 days #60 tabs cyanocobalamin (vitamin B-12) 1,000 mcg PO DAILY 30 days #30 tabs 03/20/24 1,000 mcg tablet (Vitamin B-12) divalproex 500 mg tablet,delayed 500 mg PO BEDTIME 30 days #30 tabs 03/20/24 release docusate sodium 100 mg capsule 100 mg PO BID PRN Constipation 30 03/20/24 days #60 caps fluticasone furoate 100 1 inh inhalation DAILY 30 days #60 03/20/24 mcg-vilanterol 25 mcg/dose ea inhalation powder (Breo Ellipta) hydroxyzine HCl 50 mg tablet 50 mg PO QID PRN Anxiety 30 days 03/20/24 #60 tabs levetiracetam 500 mg tablet 1,500 mg (3 x 500 mg) PO BID 30 03/20/24 days #180 tabs levothyroxine 100 mcg tablet 100 mcg PO DAILY@0600 30 days #30 03/20/24 (Synthroid) tabs lisinopril 5 mg tablet 5 mg PO DAILY 30 days #30 tabs 03/20/24 melatonin 3 mg tablet 12 mg (4 x 3 mg) PO BEDTIME 30 03/20/24 days #120 tabs metformin 1,000 mg tablet 1,000 mg PO BID 30 days #60 tabs 03/20/24 mirabegron 50 mg tablet,extended 50 mg PO DAILY 30 days #30 tabs 03/20/24 release 24 hr (Myrbetriq) nystatin-triamcinolone 100,000 1 appl topical BID 30 days #5 grams 03/20/24 unit/gram-0.1 % topical ointment olanzapine 5 mg tablet 5 mg PO DAILY@1630 30 days #30 tabs 03/20/24 propranolol 10 mg tablet 10 mg PO BID 30 days #60 tabs 03/20/24 psyllium (Hydrocil Instant oral 1 packet PO BID 30 days #60 ea 03/20/24 packet) pyridoxine (vitamin B6) 50 mg 25 mg (1/2 x 50 mg) PO DAILY 30 03/20/24 tablet days #15 tabs sennosides 8.6 mg tablet (Senna 17.2 mg (2 x 8.6 mg) PO BEDTIME 03/20/24 Lax) PRN Constipation 30 days #60 tabs simvastatin 5 mg PO BEDTIME 30 days #30 tabs 03/20/24 topiramate 25 mg tablet 25 mg PO BID 30 days #60 tabs 03/20/24 Mental Status Exam Mental Status Exam Patient Appearance: Well Grooomed and Appropriate Patient Orientation: Person and Situation Level of Consciousness: Awake and Appropriate Patient Behavior: Guarded and Passive Mood Description: Withdrawn Affect Description: Constricted Patient Cognition Impaired: Yes Ability to Follow Directions: Good Speech Pattern: Clear Hallucinations: Auditory Delusions: Ideas of Reference Thought Process: Distracted and Evasive Thought Content: positive for Norvell and positive for Circumstantial Judgement: Fair Data Data Completed and Pending Completed studies during hospitalization [Text1]: 03/14/24 03/15/24 03/16/24 06:30 05:35 06:31 Creatinine Estim Creat Clear Calc Estimated GFR POC Glucose 109 111 111 03/17/24 03/18/24 03/18/24 05:34 05:36 08:21 Creatinine 1.00 Estim Creat Clear Calc 65.0 Estimated GFR 56 POC Glucose 118 H 110 03/19/24 03/20/24 06:02 06:37 Creatinine Estim Creat Clear Calc Estimated GFR POC Glucose 109 110 Imaging Diagnostic Imaging Impressions Head CT 03/18/24 09:53 IMPRESSION: 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 Electronically signed by: Justen Santillan MD 03/18/2024 03:04 PM [facility] [place] DS: Summary Hospital Course Hospital Course: The patient is a 63-year-old female, living in her home with several ancillary services such as [employer] program with other medical comorbidities such as seizure disorder, chronic kidney disease and diabetes. The patient carries a diagnosis of schizoaffective disorder and apparently on admission she was poorly compliant with treatment. She was grossly psychotic and disorganized on admission, referred to the emergency room of another hospital after being medically cleared transferring to this facility for psychiatric stabilization. Please see the HPI of the admission note for further details. On admission, the patient was still psychotic having insulin auditory and visual hallucinations. She reported that she was seeing an invisible man and she had a very elaborated delusion. We added p.r.n. Zyprexa to target psychotic symptoms and she was able to tolerate fairly well with mprovement of her psychotic symptoms. The patient was able to participate in groups. The occupational therapist did cognitive assessments and she scored 4.4 on the Eric test and 19/30 on the Huddy test. We offer anti cholinesterase as but she refused. We had several family meetings and we had a family meeting with outpatient providers and discussed the need to add a 2nd antipsychotic. The patient signed a 3 day notice because she wanted to leave as soon as possible. We added Zyprexa 5 mg p.o. in the afternoon with for improvement of her symptoms. Since there were no safety concerns discharge planning was discussed. Time spent discussing smoking cessation with patient: 3 to 10 minutes Status at Discharge Cognitive/behavioral status at discharge: At baseline Functional status at discharge: independent ambulation Overall status at discharge: patient is back to baseline Time Spent with Patient Time attestation: Total time managing care of this patient today _30___ minutes. Time spent: Less than 30 minutes Discharge Plan Discharge Anticipated Discharge Date/Time: 03/20/24 10:00 Patient Disposition: Home, Self-Care Discharge Diagnosis: Schizoaffective disorder Referrals: Regulo Ivy CNP [Primary Care Provider] - 1 Week Discharge Medications: New sennosides [Senna Lax] 8.6 mg Tablet 17.2 mg PO BEDTIME PRN (Reason: Constipation) 30 Days Qty: 60 0RF levetiracetam 500 mg Tablet 1,500 mg PO BID 30 Days Qty: 180 0RF Hydrocil Instant Packet 1 packet PO BID 30 Days Qty: 60 0RF olanzapine 5 mg Tablet 5 mg PO DAILY@1630 30 Days Qty: 30 0RF topiramate 25 mg Tablet 25 mg PO BID 30 Days Qty: 60 0RF hydroxyzine HCl 50 mg Tablet 50 mg PO QID PRN (Reason: Anxiety) 30 Days Qty: 60 0RF melatonin 3 mg Tablet 12 mg PO BEDTIME 30 Days Qty: 120 0RF divalproex 500 mg Tablet,Delayed Release (Dr/Ec) 500 mg PO BEDTIME 30 Days Qty: 30 0RF levothyroxine [Synthroid] 100 mcg Tablet 100 mcg PO DAILY@0600 30 Days Qty: 30 0RF propranolol 10 mg Tablet 10 mg PO BID 30 Days Qty: 60 0RF metformin 1,000 mg Tablet 1,000 mg PO BID 30 Days Qty: 60 0RF benztropine 1 mg Tablet 1 mg PO BID 30 Days Qty: 60 0RF docusate sodium 100 mg Capsule 100 mg PO BID PRN (Reason: Constipation) 30 Days Qty: 60 0RF lisinopril 5 mg Tablet 5 mg PO DAILY 30 Days Qty: 30 0RF MAG-AL 200-200 mg/5 mL Suspension 30 ml PO QID PRN (Reason: Heartburn) 30 Days Qty: 300 0RF cyanocobalamin (vitamin B-12) [Vitamin B-12] 1,000 mcg Tablet 1,000 mcg PO DAILY 30 Days Qty: 30 0RF nystatin-triamcinolone 100,000-0.1 unit/gram-% Ointment 1 appl topical BID 30 Days Qty: 5 0RF pyridoxine (vitamin B6) 50 mg Tablet 25 mg PO DAILY 30 Days Qty: 15 0RF cholecalciferol (vitamin D3) 25 mcg (1,000 unit) Tablet 50 mcg PO DAILY 30 Days Qty: 60 0RF mirabegron [Myrbetriq] 50 mg Tablet Extended Release 24 Hr 50 mg PO DAILY 30 Days Qty: 30 0RF Continued Aristada 662 mg IM Q6W 30 Days Qty: 1 0RF acetaminophen 650 mg Tablet Extended Release 1,300 mg PO Q8H PRN (Reason: Pain) 30 Days Qty: 90 0RF fluticasone furoate-vilanterol [Breo Ellipta] 100-25 mcg/dose Blister With Device 1 inh INHALATION DAILY 30 Days Qty: 60 0RF albuterol 90 mcg inhalation Q4H PRN (Reason: SOB) Qty: 1 0RF simvastatin 5 mg PO BEDTIME 30 Days Qty: 30 0RF Discontinued benztropine 1 mg PO BID cholecalciferol (vitamin D3) 50 mcg PO DAILY cyanocobalamin (vitamin B-12) 1,000 mcg PO DAILY Colace 100 cap PO BID PRN (Reason: Constipation) Depakote 500 mg PO BEDTIME Keppra 1,500 mg PO BID fluticasone furoate-vilanterol 1 inhaler inhalation DIRECTED gabapentin 100 mg PO TID hydroxyzine HCl 50 mg PO QID PRN (Reason: Anxiety) Maalox 30 ml PO QID PRN (Reason: Heartburn) Milk of Magnesia 10 ml PO BID PRN (Reason: Constipation) Myrbetriq 50 mg PO DAILY [place] 3 1 cap PO DAILY levothyroxine 100 mcg PO DAILY lisinopril 5 mg PO DAILY melatonin 12 mg PO BEDTIME metformin 1,000 mg PO BID montelukast 10 mg PO DAILY nystatin 1 applicator topical BID propranolol 10 mg PO BID psyllium 2.5 g PO DIRECTED pyridoxine (vitamin B6) 25 mg PO DAILY senna 17.2 mg PO BEDTIME PRN (Reason: Constipation) Zyprexa 5 mg PO BID PRN (Reason: Agitation) topiramate 50 mg PO BEDTIME Rx Instructions: TO BE TAKEN WITH THE 100 MG AT BEDTIME trazodone 100 mg PO BEDTIME topiramate 100 mg tablet 100 mg PO BID@1200,2100 nystatin-triamcinolone 100,000-0.1 unit/gram-% Ointment 1 appl TOPICAL BID psyllium Packet 2 packet PO BID Rx Instructions: mix into at least 8 oz of water or juice before administering Discharge Orders: Discharge Order (Routine); Ordered 03/20/24 Ordered By: Jarad Caceres Diet: Advance to usual diet Activity on Discharge: As tolerated Stand Alone Forms: Patient Portal Discharge page Print Language: Slovak Care Plan Goals: Care plan goals achieved in this admission Health Concerns: Continue treatment with primary care physician and other specialists as an outpatient. Plan of Treatment: Continue with outpatient psychiatric services. Continue with ancillary services by pace program Assessment: Elderly female with a past history of schizoaffective disorder who was brought into the facility for exacerbation of psychosis. The patient is on long acting aripiprazole apparently she was partially compliant with medications in the community. We added Zyprexa on top of her Aristada with for improvement of her psychosis. Even though she has some residual psychotic symptoms but no it safety concerns. The patient has several ancillary services in the community and she is willing to follow treatment as an outpatient. She signed a 3 day notice.
[2024-03-20 08:00] VITALS: BP 102/68; PULSE 64; RESP 18; TEMP 37.6; O2SAT 98
[2024-03-20] MEDS: Mirabegron 50 MG TAB.ER.24H PO (08:25)
[2024-03-20] MEDS: Benztropine Mesylate 1 MG TABLET PO (08:25)
[2024-03-20] MEDS: Atorvastatin Calcium 10 MG TABLET 5 MG PO (08:25)
[2024-03-20] MEDS: metFORMIN HCl 1,000 MG TABLET 1000 MG PO (08:25)
[2024-03-20] MEDS: Pyridoxine HCl (Vitamin B6) 50 MG TABLET 25 MG PO (08:26)
[2024-03-20] MEDS: lisinopriL 5 MG TABLET PO (08:26)
[2024-03-20] MEDS: Propranolol HCL 10 MG TABLET PO (08:26)
[2024-03-20] MEDS: Cyanocobalamin (Vitamin B-12) 1,000 MCG TABLET 1000 MCG PO (08:26)
[2024-03-20] MEDS: Topiramate 25 MG TABLET PO (08:26)
[2024-03-20] MEDS: Cholecalciferol (Vitamin D3) 25 MCG TABLET 50 MCG PO (08:27)
[2024-03-20] MEDS: levETIRAcetam 500 MG TABLET 1500 MG PO (08:27)
[2024-03-20 08:28] LABS: MANUAL DIFF FLAG NO
[2024-03-20 08:31] LABS: Basophils Percent Auto 0.5 % (0-2); Eosinophils Absolute Auto 0.4 X10*3/uL (0.0-0.4); Eosinophils Percent Auto 6.7 % (0-4); Hematocrit 38.8 % (37.0-47.0); Hemoglobin 13.2 g/dl (12.0-16.0); Imm Gran Abs Auto 0.03 X10*3/uL (0.00-0.03); Imm Gran Pct Auto 0.5 % (0.0-0.4); Lymphocytes Absolute Auto 1.7 X10*3/uL (1.2-4.9); Mean Corpuscular Hemoglobin 31.8 pg (27.0-33.0); Mean Corpuscular Volume 93.5 fL (80.0-98.0); Mean Platelet Volume 9.3 fL (9.4-12.3); Monocytes Absolute Auto 0.7 X10*3/uL (0.1-1.2); Monocytes Percent Auto 12.1 % (2-11); Neutrophils Absolute Auto 3.1 x10*3/uL (2.0-8.3); Neutrophils Percent Auto 52.2 % (45-73); Platelet Count 185 X10*3/uL (160-400); Red Blood Count 4.15 X10*6/uL (4.20-5.50); Red Cell Distribution Width 12.8 % (11.0-16.0)
[2024-03-20] MEDS: Albuterol Sulfate 90 MCG 8 GM INHALER 1 PUFF INHALE (08:33)
[2024-03-20] MEDS: Psyllium seed 3.7 GM PACKET PO (08:33)
[2024-03-20 08:41] LABS: Valproate 27.3 mcg/mL (50.0-100.0)
[2024-03-20 08:44] LABS: Alanine Aminotransferase 21 U/L (0-31); Albumin Level 3.8 g/dL (3.5-5.0); Alkaline Phosphatase 50 U/L (39-117); Anion Gap 13 (12-20); Aspartate Amino Transferase 18 U/L (5-31); Bilirubin Total 0.2 mg/dL (0.0-1.0); Blood Urea Nitrogen 13 mg/dL (9-16); Calcium 8.9 mg/dL (8.4-10.2); Carbon Dioxide 25 mmol/L (22-29); Chloride 108 mmol/L (96-108); Creatinine Clr Calc Pharmacy 75.6; Estimated Glomerular Filt Rate > 60; Glucose Fasting 178 mg/dL (60-99); Potassium 4.3 mmol/L (3.3-5.1); Sodium 142 mmol/L (135-145); Total Protein 6.3 g/dL (6.5-8.0)
[2024-03-20] MEDS: Fluticasone/Vilanterol 100/25 BLST.W.DEV 1 PUFF INHALE (09:10)
== END 2024-03-20 10:55 | disposition home or self-care (01) | DRG 885 ==
PROVIDERS: Admitting Provider Psychiatry & Neurology Psychiatry; PCP Nurse Practitioner; Visit Provider Psychiatry & Neurology Psychiatry
DX: F25.9 Schizoaffective disorder, unspecified (principal); G91.2 (Idiopathic) normal pressure hydrocephalus; G40.909 Epilepsy, unspecified, not intractable, without status epilepticus; G47.33 Obstructive sleep apnea (adult) (pediatric); E11.22 Type 2 diabetes mellitus with diabetic chronic kidney disease; E11.42 Type 2 diabetes mellitus with diabetic polyneuropathy; J45.30 Mild persistent asthma, uncomplicated; N18.31 Chronic kidney disease, stage 3a; K76.0 Fatty (change of) liver, not elsewhere classified; E03.9 Hypothyroidism, unspecified; I12.9 Hypertensive chronic kidney disease with stage 1 through stage 4 chronic kidney disease, or unspecified chronic kidney disease; Z79.51 Long term (current) use of inhaled steroids; Z79.84 Long term (current) use of oral hypoglycemic drugs; Z79.890 Hormone replacement therapy; Z79.899 Other long term (current) drug therapy
CPT/HCPCS: 36415; 70450; 80053; 80061; 80164; 82565; 82607; 82746; 82947; 83036; 84439; 84443; 85025

== ENCOUNTER → 2024-03-10 00:47 | Outpatient (BNV) | payer OTHER, SELFPAY | PROVIDERS: Admitting Provider Psychiatry & Neurology Psychiatry; PCP Nurse Practitioner; Visit Provider Psychiatry & Neurology Psychiatry | DX: F25.9 Schizoaffective disorder, unspecified (principal); G40.909 Epilepsy, unspecified, not intractable, without status epilepticus | CPT/HCPCS: 90792; 99231; 99232; 99238 ==

== ENCOUNTER → 2024-03-10 00:47 | Outpatient (BNV) | payer OTHER, SELFPAY | PROVIDERS: Admitting Provider Psychiatry & Neurology Psychiatry; PCP Nurse Practitioner; Visit Provider Psychiatry & Neurology Psychiatry | DX: F25.9 Schizoaffective disorder, unspecified (principal); G40.909 Epilepsy, unspecified, not intractable, without status epilepticus | CPT/HCPCS: 99231 ==

== ENCOUNTER → 2024-03-10 00:47 | Outpatient (BNV) | payer OTHER, SELFPAY | PROVIDERS: Admitting Provider Psychiatry & Neurology Psychiatry; PCP Nurse Practitioner; Visit Provider Physician Assistant | DX: Z02.2 Encounter for examination for admission to residential institution (principal) | CPT/HCPCS: 99429 ==

== ENCOUNTER → 2024-03-10 00:47 | Outpatient (BNV) | payer OTHER, SELFPAY | PROVIDERS: Admitting Provider Psychiatry & Neurology Psychiatry; PCP Nurse Practitioner; Visit Provider Psychiatry & Neurology Neurology | DX: G40.909 Epilepsy, unspecified, not intractable, without status epilepticus (principal) | CPT/HCPCS: 99221 ==

== ENCOUNTER 2024-03-22 20:32 | Inpatient (IN) | payer OTHER, SELFPAY ==
--- NOTE | ~2024-03-22 | XR_ITS ---
EXAMINATION: XR CHEST CLINICAL INFORMATION: cough COMPARISON: None available. TECHNIQUE: Frontal view of the chest was obtained. FINDINGS: The cardiomediastinal silhouette is normal. There appears to be bronchial thickening. There is no focal lung consolidation or pleural effusions. The bony structures and the soft tissues are unremarkable. XR/XR chest 1V IMPRESSION: There appears to be bronchial thickening which may be seen with bronchitis. There is no focal lung consolidation or pleural effusions Electronically signed by: Marcos Payne MD 03/23/2024 03:55 AM EST
[2024-03-22 20:37] VITALS: BP 107/58; PULSE 86; RESP 18; TEMP 36.6; O2SAT 96; BMI 41.5
[2024-03-22 21:07] LABS: MANUAL DIFF FLAG NO
[2024-03-22 21:09] LABS: Basophils Percent Auto 0.3 % (0-2); Eosinophils Absolute Auto 0.1 X10*3/uL (0.0-0.4); Eosinophils Percent Auto 0.9 % (0-4); Hematocrit 36.3 % (37.0-47.0); Hemoglobin 12.3 g/dl (12.0-16.0); Imm Gran Abs Auto 0.02 X10*3/uL (0.00-0.03); Imm Gran Pct Auto 0.3 % (0.0-0.4); Lymphocytes Absolute Auto 2.1 X10*3/uL (1.2-4.9); Lymphocytes Percent Auto 30.7 % (20-40); Mean Corpuscular HGB Conc 33.9 g/dl (31.0-35.0); Mean Corpuscular Hemoglobin 31.3 pg (27.0-33.0); Mean Corpuscular Volume 92.4 fL (80.0-98.0); Mean Platelet Volume 9.1 fL (9.4-12.3); Monocytes Absolute Auto 0.9 X10*3/uL (0.1-1.2); Neutrophils Absolute Auto 3.6 x10*3/uL (2.0-8.3); Neutrophils Percent Auto 53.8 % (45-73); Platelet Count 140 X10*3/uL (160-400); Red Blood Count 3.93 X10*6/uL (4.20-5.50); Red Cell Distribution Width 12.9 % (11.0-16.0); White Blood Count 6.7 X10*3/uL (4.8-10.8)
[2024-03-22 21:30] LABS: Acetaminophen LAB < 3 mcg/mL (<30); Alanine Aminotransferase 23 U/L (0-31); Albumin Level 3.8 g/dL (3.5-5.0); Alkaline Phosphatase 49 U/L (39-117); Anion Gap 12 (12-20); Aspartate Amino Transferase 32 U/L (5-31); Bilirubin Total 0.2 mg/dL (0.0-1.0); Blood Urea Nitrogen 15 mg/dL (9-16); Calcium 8.9 mg/dL (8.4-10.2); Carbon Dioxide 21 mmol/L (22-29); Chloride 109 mmol/L (96-108); Creatinine Clr Calc Pharmacy 59.1; Estimated Glomerular Filt Rate 53; Ethanol < 10 mg/dL; Glucose Random 176 mg/dL (60-115); Lipase 17 U/L (8-78); Potassium 3.9 mmol/L (3.3-5.1); Salicylate < 5.0 mg/dL (15-30); Sodium 138 mmol/L (135-145); Total Protein 6.5 g/dL (6.5-8.0)
--- NOTE | 2024-03-22 21:33 | PC.NURSE ---
Pt calm and cooperative, no apparent distress noted. VSS. Denies pain at this time. Changed over into hospital attire. Pt uses a cane at baseline. Cane stored away for safety. Pt is able to ambulate independently with supervision. Unable to urinate at this time. Denies SI/HI. Reports auditory hallucinations of a nafisa voice. Pending lab results and physician eval. Monitoring is ongoing.
--- NOTE | 2024-03-22 22:15 | PC.NURSE ---
Juliet, the chief controller tower [employer] from [employer], called to report safety concern for the as pt called their office twice today. The first time to state feeling nervous and hearing voices. The second time pt stated that one of the [employer] [facility] nurses was being held captive behind their office building. Pt lives alone and has wondering around in the parking lot and found by family members. Juliet states pts Abilify injection has been switched from every 6 weeks to every 4 weeks. Juliet can be reached at [phone]. MLP made aware.
--- NOTE | 2024-03-22 22:21 | ED_ITS ---
HPI - General Adult General Chief complaint: Psychiatric Symptoms Stated complaint: crisis Time Seen by Provider: 03/22/24 22:14 Source: patient, RN notes reviewed and old records reviewed Mode of arrival: ambulatory Limitations: no limitations History of Present Illness ED Provider: Clay HPI narrative: 63-year-old female with past medical history significant for seizure disorder, chronic kidney disease, diabetes as well as schizoaffective disorder presents for evaluation of psychosis. The patient presents with her sister in law. The patient also has a patient of the [employer]. She apparently called that program twice today and told staff there that 1 of the nurses was being kidnapped During my evaluation, the patient is not cooperative with answering questions. She does state that she feels well She will not tell me why she was brought to the hospital Per nursing staff, the patient reported auditory hallucinations The patient was discharged 2 days ago from the inpatient psychiatric floor Related Data Previous Rx's ?Medication ?Instructions ?Recorded Aristada 662 mg IM Q6W 30 days #1 kit 03/20/24 acetaminophen 650 mg 1,300 mg (2 x 650 mg) PO Q8H PRN 03/20/24 tablet,extended release Pain 30 days #90 tabs albuterol 90 mcg inhalation Q4H PRN SOB #1 03/20/24 inhaler aluminum-magnesium hydroxide 200 30 ml PO QID PRN Heartburn 30 days 03/20/24 mg-200 mg/5 mL oral suspension #300 mL (MAG-AL) benztropine 1 mg tablet 1 mg PO BID 30 days #60 tabs 03/20/24 cholecalciferol (vitamin D3) 25 50 mcg (2 x 25 mcg (1,000 unit)) 03/20/24 mcg (1,000 unit) tablet PO DAILY 30 days #60 tabs cyanocobalamin (vitamin B-12) 1,000 mcg PO DAILY 30 days #30 tabs 03/20/24 1,000 mcg tablet (Vitamin B-12) divalproex 500 mg tablet,delayed 500 mg PO BEDTIME 30 days #30 tabs 03/20/24 release docusate sodium 100 mg capsule 100 mg PO BID PRN Constipation 30 03/20/24 days #60 caps fluticasone furoate 100 1 inh inhalation DAILY 30 days #60 03/20/24 mcg-vilanterol 25 mcg/dose ea inhalation powder (Breo Ellipta) hydroxyzine HCl 50 mg tablet 50 mg PO QID PRN Anxiety 30 days 03/20/24 #60 tabs levetiracetam 500 mg tablet 1,500 mg (3 x 500 mg) PO BID 30 03/20/24 days #180 tabs levothyroxine 100 mcg tablet 100 mcg PO DAILY@0600 30 days #30 03/20/24 (Synthroid) tabs lisinopril 5 mg tablet 5 mg PO DAILY 30 days #30 tabs 03/20/24 melatonin 3 mg tablet 12 mg (4 x 3 mg) PO BEDTIME 30 03/20/24 days #120 tabs metformin 1,000 mg tablet 1,000 mg PO BID 30 days #60 tabs 03/20/24 mirabegron 50 mg tablet,extended 50 mg PO DAILY 30 days #30 tabs 03/20/24 release 24 hr (Myrbetriq) nystatin-triamcinolone 100,000 1 appl topical BID 30 days #5 grams 03/20/24 unit/gram-0.1 % topical ointment olanzapine 5 mg tablet 5 mg PO DAILY@1630 30 days #30 tabs 03/20/24 propranolol 10 mg tablet 10 mg PO BID 30 days #60 tabs 03/20/24 psyllium (Hydrocil Instant oral 1 packet PO BID 30 days #60 ea 03/20/24 packet) pyridoxine (vitamin B6) 50 mg 25 mg (1/2 x 50 mg) PO DAILY 30 03/20/24 tablet days #15 tabs sennosides 8.6 mg tablet (Senna 17.2 mg (2 x 8.6 mg) PO BEDTIME 03/20/24 Lax) PRN Constipation 30 days #60 tabs simvastatin 5 mg PO BEDTIME 30 days #30 tabs 03/20/24 topiramate 25 mg tablet 25 mg PO BID 30 days #60 tabs 03/20/24 Allergies Allergy/AdvReac Type Severity Reaction Status Date / Time oxcarbazepine Allergy Unknown Verified 03/22/24 20:38 [From Trileptal] peanut Allergy Unknown Verified 03/22/24 20:38 quetiapine [From Seroquel] Allergy Vomiting Verified 03/22/24 20:38 Review of Systems 2 Constitutional: Constitutional: Denies body ache(s), Denies chills and Denies fever(s) Eyes: Eyes: Denies floaters ENT: Denies sore throat Cardiovascular: Cardiovascular: Denies chest pain and Denies dyspnea Respiratory: Respiratory: Denies cough and Denies dyspnea Gastrointestinal: Gastrointestinal: Denies abdominal pain and Denies vomiting Musculoskeletal: Musculoskeletal: Denies back pain Integumentary/Breasts: Skin/Breast: Denies rash Psychiatric: Psychiatric: Reports auditory hallucinations PMFSH Past Medical History Medical History (Updated 03/22/24 @ 22:26 by Miguel Ángel Williamson) Stable angina History of melanoma HTN (hypertension) Mild persistent asthma FERMÍN (obstructive sleep apnea) Diabetic peripheral neuropathy NPH (normal pressure hydrocephalus) Seizure disorder CKD (chronic kidney disease) Hypothyroidism Type 2 diabetes mellitus Schizoaffective disorder Social History Social History Household Members: None Housing: Apartment Do you presently have visiting nurse or other home services: Yes (Visiting Nurse) Patient Tobacco Use Status: Never used Tobacco Smoked in Last 30 Days: No e-Cigarette/Vaping Use: Never Used Second Hand Smoke Exposure: No Use of substances other than those prescribed or required for medical reasons: No Advance Directives: No Advance Directives Information Provided: No Do you have a plan to hurt others: No Plan Patient : No service: No Sexual orientation: Unable to collect Physical Exam ED Vital Signs: Vital Signs - 24 hr 03/22/24 20:37 03/23/24 06:18 03/23/24 07:54 Temperature 97.8 F 97.3 F 98.9 F Pulse Rate 86 67 76 Respiratory Rate 18 16 17 Blood Pressure 107/58 L 120/70 113/82 Pulse Oximetry 96 96 97 Oxygen Delivery Method Room Air Room Air Room Air 03/23/24 11:10 03/23/24 11:15 Temperature 97.4 F Pulse Rate 71 Respiratory Rate 71 H Blood Pressure 120/74 120/74 Pulse Oximetry 97 Oxygen Delivery Method Room Air BMI result Body Mass Index 41.5 Const General: healthy appearing, comfortable, no acute distress, alert and awake Nutritional Appearance: well nourished HENVA Head: Yes normocephalic and Yes atraumatic Eyes Eyelids: Yes eyelids normal Conjunctivae: conjunctivae normal Sclerae: sclerae normal Corneas: corneas normal Pupils: Equal, round and reactive pupils present EOM: EOMs intact bilaterally Neck Neck: Yes full ROM Resp Effort & Inspection: normal respiratory effort, able to speak in complete sentences and not labored GI Inspection: No distended Skin General skin exam: elasticity normal Neuro Cranial nerves: Yes Equal, round and reactive pupils present and Yes Bilaterally intact EOM present Extrem Other: Moving all extremities well without any obvious deformities Course Reevaluation(s) Reevaluation #1: I received a phone call from Dr Michelle Castillo, who is the medical record consultant of the [facility] program of which the patient is a resident of. She feels that the patient is unsafe to be discharged back home due to these psychiatric illness and schizophrenia. She does not feel the patient can be safely discharged back home alone. She would like the patient held on a section 12 until a safe disposition can be determined. Dr Michelle Castillo Time: 00:43 Reevaluation #2: 03/23/2024 at 11:43 hours, Dr. Cedrick Hirsch's note Start physician observation Patient was been in the emergency department for 15 hours. Patient presented with auditory hallucinations. Patient was on a Section 12 and has been seen by the care team. Patient was a bed search. Patient was been complaining cough for 2 days. The cough is mainly nonproductive. She has occasional chest pain with coughing. She denied shortness of breath, dyspnea on exertion, fever or chills. Patient's laboratory evaluation was unremarkable. COVID-19, RSV and influenza were negative. Chest x-ray did reveal bronchial thickening but no evidence for pneumonia. Patient's symptoms are consistent with a viral URI and she was not need antibiotics at this time. She was started on Tessalon Perles 200 mg t.i.d. for 3 days. I did order the patient's outpatient medication regimen. Patient will remain in the emergency department Behavioral Health Unit until disposition can be determined or until patient's symptoms improve over time. Medications Administered Generic Name Dose Route Start Last Admin Trade Name Freq PRN Reason Stop Dose Admin Benztropine Mesylate 1 mg 03/23/24 10:30 03/23/24 11:09 Benztropine Mesylate 1 Mg Tablet PO 1 mg BID LUCY Administration Fluticasone/Vilanterol 1 puff 03/23/24 10:30 03/23/24 11:38 Fluticasone/Vilanterol 100/25 Blst.W.Dev INHALE 1 puff RDAILY LUCY Administration Levetiracetam 1,500 mg 03/23/24 10:30 03/23/24 11:10 Levetiracetam 500 Mg Tablet PO 1,500 mg BID LUCY Administration Levothyroxine Sodium 100 mcg 03/23/24 10:30 03/23/24 11:09 Levothyroxine Sodium 100 Mcg Tablet PO 100 mcg DAILY@0600 LUCY Administration Lisinopril 5 mg 03/23/24 10:30 03/23/24 11:11 Lisinopril 5 Mg Tablet PO 5 mg DAILY LUCY Administration Protocol Metformin HCl 1,000 mg 03/23/24 10:30 03/23/24 11:10 Metformin Hcl 1,000 Mg Tablet PO 1,000 mg BID LUCY Administration Mirabegron 50 mg 03/23/24 10:30 03/23/24 11:32 Mirabegron 50 Mg Tab.Er.24h PO 50 mg DAILY LUCY Administration Nystatin/Triamcinolone Acetonide 1 appl 03/23/24 10:30 03/23/24 11:41 Nystatin/Triamcinolone Oint 15 Gm Tube TOPICAL Not Given BID [facility] Protocol Propranolol HCl 10 mg 03/23/24 10:30 03/23/24 11:10 Propranolol Hcl 10 Mg Tablet PO 10 mg BID LUCY Administration Protocol Psyllium Hydrophilic Mucilloid 3.7 gm 03/23/24 10:30 03/23/24 11:38 Psyllium Seed 3.7 Gm Packet PO 3.7 gm BID LUCY Administration Topiramate 25 mg 03/23/24 10:30 03/23/24 11:10 Topiramate 25 Mg Tablet PO 25 mg BID LUCY Administration Discontinued Medications Generic Name Dose Route Start Last Admin Trade Name Freq PRN Reason Stop Dose Admin Benzonatate 200 mg 03/23/24 01:46 03/23/24 02:07 Benzonatate 100 Mg Capsule PO 03/23/24 01:47 200 mg ONCE ONE Administration Medical Decision Making Medical Decision Making MDM Narrative: 63-year-old female with past medical history as documented above presents for evaluation of auditory hallucinations. Plan for medical clearance and care team evaluation. It is unclear if the patient has been compliant with her medications since her discharge 2 days ago Differential Diagnosis Differential Diagnoses: The differential diagnosis associated with the presentation includes Psychosis Schizoaffective disorder Medication noncompliance Delirium Lab Data [facility] Lab Attestation statement: I reviewed the patient's lab results. No leukocytosis or significant anemia. There were no significant electrolyte abnormalities. The patient's chloride is just above normal at 109 with a CO2 of 21 that is just below normal. Random glucose is 176 and there is no anion gap 03/22/24 21:02 03/22/24 21:02 Labs: Lab Results 03/22/24 03/23/24 Range/Units 21:02 01:51 WBC 6.7 (4.8-10.8) X10*3/uL RBC 3.93 L (4.20-5.50) X10*6/uL Hgb 12.3 (12.0-16.0) g/dl Hct 36.3 L (37.0-47.0) % MCV 92.4 (80.0-98.0) fL MCH 31.3 (27.0-33.0) pg MCHC 33.9 (31.0-35.0) g/dl RDW 12.9 (11.0-16.0) % Plt Count 140 L (160-400) X10*3/uL MPV 9.1 L (9.4-12.3) fL Immature Gran % (Auto) 0.3 (0.0-0.4) % Neut % (Auto) 53.8 (45-73) % Lymph % (Auto) 30.7 (20-40) % [place] % (Auto) 14.0 H (2-11) % Eos % (Auto) 0.9 (0-4) % Baso % (Auto) 0.3 (0-2) % Lymph # (Auto) 2.1 (1.2-4.9) X10*3/uL [place] # (Auto) 0.9 (0.1-1.2) X10*3/uL Eos # (Auto) 0.1 (0.0-0.4) X10*3/uL Baso # (Auto) 0.0 (0.0-0.2) X10*3/uL Abs Immat Gran (auto) 0.02 (0.00-0.03) X10*3/uL Absolute Neuts (auto) 3.6 (2.0-8.3) x10*3/uL Absolute Nucleated RBC 0.000 (0.0-0.012) X10*3/uL Nucleated RBC % (auto) 0.0 (0.0-0.2) /100WBC Sodium 138 (135-145) mmol/L Potassium 3.9 (3.3-5.1) mmol/L Chloride 109 H (96-108) mmol/L Carbon Dioxide 21 L (22-29) mmol/L Anion Gap 12 (12-20) BUN 15 (9-16) mg/dL Creatinine 1.04 (0.5-1.4) mg/dL Estim Creat Clear Calc 59.1 Estimated GFR 53 Random Glucose 176 H (60-115) mg/dL Calcium 8.9 (8.4-10.2) mg/dL Total Bilirubin 0.2 (0.0-1.0) mg/dL AST 32 H (5-31) U/L ALT 23 (0-31) U/L Alkaline Phosphatase 49 (39-117) U/L Total Protein 6.5 (6.5-8.0) g/dL Albumin 3.8 (3.5-5.0) g/dL Lipase 17 (8-78) U/L Urine Color Yellow Urine Appearance Clear Urine pH 6.5 (5.0-9.0) Ur Specific [place] 1.010 (1.005-1.025) Urine Protein Negative (Neg-Trace) mg/dL Urine Glucose (UA) Negative (Negative) mg/dL Urine Ketones Negative (Negative) mg/dL Urine Blood Negative (Negative) Urine Nitrite Negative (Negative) Ur Leukocyte Esterase Trace H (Negative) Urine RBC 0-2 (0-2) /HPF Urine WBC 0-5 (0-5) /HPF Ur Squamous Epith Cells 0-2 (0-2) /HPF Urine Bacteria None Seen (None Seen) Hyaline Casts 0-2 (0-2) /LPF Salicylates < 5.0 L (15-30) mg/dL Urine Opiates Screen Not Detected (Not Detect) Ur Buprenorphine Scrn Not Detected (Not Detect) ng/mL Ur Oxycodone Screen Not Detected (Not Detect) ng/mL Urine Methadone Screen Not Detected (Not Detect) ng/mL Urine Fentanyl Screen Not Detected (Not Detect) Acetaminophen < 3 (<30) mcg/mL Ur Barbiturates Screen Not Detected (Not Detect) Ur Phencyclidine Scrn Not Detected (Not Detect) Ur Amphetamines Screen Not Detected (Not Detect) U Benzodiazepines Scrn Not Detected (Not Detect) Urine Cocaine Screen Not Detected (Not Detect) U Marijuana (THC) Screen Not Detected (Not Detect) Ethyl Alcohol < 10 mg/dL COVID-19 (MODE) Negative (Negative) COVID-19 Clin Com See Note Influenza Type A (SONIA) Negative (Negative) Influenza Type B (SONIA) Negative (Negative) Influenza A & B Note See Note Discharge Plan Discharge Clinical Impression: Schizoaffective disorder Patient Disposition: Still a Patient Prescriptions: No Action sennosides [Senna Lax] 8.6 mg Tablet 17.2 mg PO BEDTIME PRN (Reason: Constipation) 30 Days Qty: 60 0RF levetiracetam 500 mg Tablet 1,500 mg PO BID 30 Days Qty: 180 0RF Hydrocil Instant Packet 1 packet PO BID 30 Days Qty: 60 0RF olanzapine 5 mg Tablet 5 mg PO DAILY@1630 30 Days Qty: 30 0RF topiramate 25 mg Tablet 25 mg PO BID 30 Days Qty: 60 0RF hydroxyzine HCl 50 mg Tablet 50 mg PO QID PRN (Reason: Anxiety) 30 Days Qty: 60 0RF melatonin 3 mg Tablet 12 mg PO BEDTIME 30 Days Qty: 120 0RF divalproex 500 mg Tablet,Delayed Release (Dr/Ec) 500 mg PO BEDTIME 30 Days Qty: 30 0RF levothyroxine [Synthroid] 100 mcg Tablet 100 mcg PO DAILY@0600 30 Days Qty: 30 0RF propranolol 10 mg Tablet 10 mg PO BID 30 Days Qty: 60 0RF metformin 1,000 mg Tablet 1,000 mg PO BID 30 Days Qty: 60 0RF benztropine 1 mg Tablet 1 mg PO BID 30 Days Qty: 60 0RF docusate sodium 100 mg Capsule 100 mg PO BID PRN (Reason: Constipation) 30 Days Qty: 60 0RF lisinopril 5 mg Tablet 5 mg PO DAILY 30 Days Qty: 30 0RF MAG-AL 200-200 mg/5 mL Suspension 30 ml PO QID PRN (Reason: Heartburn) 30 Days Qty: 300 0RF cyanocobalamin (vitamin B-12) [Vitamin B-12] 1,000 mcg Tablet 1,000 mcg PO DAILY 30 Days Qty: 30 0RF nystatin-triamcinolone 100,000-0.1 unit/gram-% Ointment 1 appl topical BID 30 Days Qty: 5 0RF pyridoxine (vitamin B6) 50 mg Tablet 25 mg PO DAILY 30 Days Qty: 15 0RF cholecalciferol (vitamin D3) 25 mcg (1,000 unit) Tablet 50 mcg PO DAILY 30 Days Qty: 60 0RF mirabegron [Myrbetriq] 50 mg Tablet Extended Release 24 Hr 50 mg PO DAILY 30 Days Qty: 30 0RF Aristada 662 mg IM Q6W 30 Days Qty: 1 0RF acetaminophen 650 mg Tablet Extended Release 1,300 mg PO Q8H PRN (Reason: Pain) 30 Days Qty: 90 0RF fluticasone furoate-vilanterol [Breo Ellipta] 100-25 mcg/dose Blister With Device 1 inh INHALATION DAILY 30 Days Qty: 60 0RF albuterol 90 mcg inhalation Q4H PRN (Reason: SOB) Qty: 1 0RF simvastatin 5 mg PO BEDTIME 30 Days Qty: 30 0RF Interventions: [place]-Suicide Risk Severity Scale Last Done: 03/22/24 21:30 Print Language: Japanese
[2024-03-23] VITALS (7 sets, daily range): BP systolic 97–125; BP diastolic 61–82; PULSE 67–78; RESP 16–71; TEMP 36.3–37.2; O2SAT 93–97
[2024-03-23 02:06] LABS: Appearance Urine Clear; Color Urine Yellow; Glucose Urine UA Negative (Negative); Leukocyte Esterase Urine Trace (Negative); Nitrite Urine Negative (Negative); PH 6.5 (5.0-9.0); UMIC TRIGGER UACC YES; Urine Blood Negative (Negative); Urine Ketones Negative (Negative); Urine Protein Negative (Neg-Trace)
[2024-03-23] MEDS: Benzonatate 100 MG CAPSULE 200 MG PO ×4 (02:07→20:30)
[2024-03-23 02:15] LABS: Bacteria Urine None Seen (None Seen); Hyaline Casts Urine 0-2 /LPF (0-2); RBC Urine 0-2 /HPF (0-2); Squamous Epithelial Cell Urine 0-2 /HPF (0-2); WBC Urine 0-5 /HPF (0-5)
[2024-03-23 02:20] LABS: Amphetamine Screen Urine Not Detected (Not Detect); Barbiturates, Urine Not Detected (Not Detect); Benzodiazepines Screen Urine Not Detected (Not Detect); Buprenorphine Scr Not Detected (Not Detect); Cannabinoid Screen Urine Not Detected (Not Detect); Cocaine Screen Urine Not Detected (Not Detect); Fentanyl, urine Not Detected (Not Detect); Methadone Screen, Urine Not Detected (Not Detect); Opiate Screen Urine Not Detected (Not Detect); Oxycodone Screen Urine Not Detected (Not Detect); Phencyclidine Screen Urine Not Detected (Not Detect)
[2024-03-23 02:22] LABS: COVID-19 Test Negative (Negative); IDNOW Serial# 08D9AD1C; IDNOW Serial# 6674DD1D; Influenza A Negative (Negative); Influenza B2 Negative (Negative)
--- NOTE | 2024-03-23 08:48 | PC.NURSE ---
med rec completed with medical record from recent discharge from [facility]. Pt reports that she has been taking her medications since discharge and that there have been no changes since
--- NOTE | 2024-03-23 11:06 | PC.NURSE ---
pt states that she last had her Aristata injection last week but is unsure which day it was last week. Med ordered [id number]
[2024-03-23] MEDS: Benztropine Mesylate 1 MG TABLET PO ×2 (11:09→20:27)
[2024-03-23] MEDS: Levothyroxine Sodium 100 MCG TABLET PO (11:09)
[2024-03-23] MEDS: metFORMIN HCl 1,000 MG TABLET 1000 MG PO ×2 (11:10→20:30)
[2024-03-23] MEDS: levETIRAcetam 500 MG TABLET 1500 MG PO ×2 (11:10→20:27)
[2024-03-23] MEDS: Propranolol HCL 10 MG TABLET PO ×2 (11:10→20:33)
[2024-03-23] MEDS: Topiramate 25 MG TABLET PO ×2 (11:10→20:28)
[2024-03-23] MEDS: lisinopriL 5 MG TABLET PO (11:11)
[2024-03-23] MEDS: Mirabegron 50 MG TAB.ER.24H PO (11:32)
[2024-03-23] MEDS: Psyllium seed 3.7 GM PACKET PO (11:38)
[2024-03-23] MEDS: Fluticasone/Vilanterol 100/25 BLST.W.DEV 1 PUFF INHALE (11:38)
[2024-03-23] MEDS: OLANZapine 5 MG TABLET PO (15:54)
--- NOTE | 2024-03-23 16:52 | MHC.EDTECH ---
patient is in community area watching tv. Patient is calm, I did a set of vitals. Patient asked me for some Emy andrew.
[2024-03-23] MEDS: Acetaminophen 325 MG TABLET 650 MG PO (17:51)
[2024-03-23] MEDS: Divalproex Sodium 500 MG TABLET.DR PO (20:26)
[2024-03-23] MEDS: Melatonin 3 MG TABLET 12 MG PO (20:27)
--- NOTE | 2024-03-23 22:47 | PC.NURSE ---
patient presented to the desk wanting to leave because she has a ride waiting outside for her. Patient redirected at this time and remaining calm and cooperative.
[2024-03-23] MEDS: hydrOXYzine HCL 50 MG TABLET PO (22:52)
--- NOTE | 2024-03-23 22:53 | PC.NURSE ---
Patient continues to pace and asked for something to help her sleep. Hydroxyzine given. Will continue to monitor the situation.
--- NOTE | 2024-03-23 23:33 | PC.NURSE ---
Patient in room at this time. Continues to talk to Bernardino. Will continue to monitor.
--- NOTE | 2024-03-23 23:49 | PC.NURSE ---
Patient pacing in the hallway again, looking for more night medications. Nurse explained that at this time there is nothing else at this time to be given and asked for her to return to her room to try and rest. Patient continued to bathroom and then back to her bed.
[2024-03-24] VITALS (7 sets, daily range): BP systolic 113–150; BP diastolic 64–90; PULSE 68–102; RESP 16–18; TEMP 36.8–37.2; O2SAT 96
--- NOTE | 2024-03-24 02:38 | PC.NURSE ---
Patient pacing, attempting to follow staff out the exit doors, now opening other patients doors.
[2024-03-24] MEDS: LORazepam 1 MG TABLET 2 MG PO (02:56)
[2024-03-24] MEDS: guaiFEN/Codeine SF 200/20/10ML 10 ML LIQUID PO (03:00)
[2024-03-24] MEDS: Albuterol Sulfate 90 MCG 8 GM INHALER 90 PUFF INHALE (03:01)
--- NOTE | 2024-03-24 03:25 | PC.NURSE ---
Patient received 2mg po ativan a short time ago and is now much calmer and more redirectable. Patient sitting in common area in chair quietly at this time.
[2024-03-24] MEDS: Levothyroxine Sodium 100 MCG TABLET PO (06:03)
--- NOTE | 2024-03-24 06:06 | PC.NURSE ---
patient awake and ambulating to bathroom independently with steady gait.
[2024-03-24 07:31] LABS: Influenza A PCR NEGATIVE (Negative); Influenza B PCR NEGATIVE (Negative); Resp Syncy Virus RNA Qual PCR NEGATIVE (Negative); SARS COV2 PCR INHOUSE NEGATIVE (Negative)
--- NOTE | 2024-03-24 08:26 | PHA.MEDREC ---
Pharmacy Consult ? Medication Reconciliation Pharmacy has REVIEWED the medication reconciliation. Patient has discharge packed from 03/10/24
[2024-03-24] MEDS: Benzonatate 100 MG CAPSULE 200 MG PO ×2 (08:42→20:35)
[2024-03-24] MEDS: Pyridoxine HCl (Vitamin B6) 50 MG TABLET 25 MG PO (08:43)
[2024-03-24] MEDS: Topiramate 25 MG TABLET PO ×3 (08:44→20:35)
[2024-03-24] MEDS: levETIRAcetam 500 MG TABLET 1500 MG PO ×3 (08:44→20:35)
[2024-03-24] MEDS: metFORMIN HCl 1,000 MG TABLET 1000 MG PO ×3 (08:45→20:35)
[2024-03-24] MEDS: Cyanocobalamin (Vitamin B-12) 1,000 MCG TABLET 1000 MCG PO (08:45)
[2024-03-24] MEDS: Cholecalciferol (Vitamin D3) 25 MCG TABLET 50 MCG PO ×2 (08:45→10:06)
[2024-03-24] MEDS: Atorvastatin Calcium 10 MG TABLET 5 MG PO (08:45)
[2024-03-24] MEDS: lisinopriL 5 MG TABLET PO ×2 (08:46→10:07)
[2024-03-24] MEDS: Benztropine Mesylate 1 MG TABLET PO ×2 (08:46→20:35)
[2024-03-24] MEDS: Propranolol HCL 10 MG TABLET PO ×3 (08:47→20:35)
[2024-03-24] MEDS: Mirabegron 50 MG TAB.ER.24H PO ×2 (10:08→10:09)
[2024-03-24] MEDS: Fluticasone/Vilanterol 100/25 BLST.W.DEV 1 PUFF INHALE (10:09)
--- NOTE | 2024-03-24 11:25 | PM.EVENT ---
Event Note Date of Service: 03/24/24 Event Note: pt returns to ED several days after discharge with AH/paranoid delusions, telling her to leave apartment, to walk in the dark. Patient did or tried to elope. Hot Sealing Machine Operator reviewed chart and it looks like she was doing better on unit while taking Zyprexa on top of Astrida. Not clear if she stopped taking Zyprexa of if it proved too low a dose. Pt may require SNF but seem li Time Spent With Patient Time: Total time managing care of this patient today ____ minutes.
--- NOTE | 2024-03-24 12:48 | MHC.CARE ---
Per psych consult by Dr. Moncho Napoles patient will be inpatient level of care.
[2024-03-24] MEDS: hydrOXYzine HCL 50 MG TABLET PO (13:48)
--- NOTE | 2024-03-24 14:02 | PC.NURSE ---
patient is very angry and wants to leave and get dressed. I explained to her that she would not be able and hopefully a bed will be available soon, Wants to see her family, I called and left a message for her brother Toby. She took an Atarax with water
--- NOTE | 2024-03-24 15:11 | PC.NURSE ---
Assumed care of patient at 1445, patient appears to be in no apparent distress, sleeping, respirations even and unlabored, continue plan of care for inpatient bedsearch
[2024-03-24] MEDS: OLANZapine 5 MG TABLET PO (17:05)
[2024-03-24] MEDS: Melatonin 3 MG TABLET 12 MG PO (20:35)
[2024-03-24] MEDS: Divalproex Sodium 500 MG TABLET.DR PO (20:36)
--- NOTE | 2024-03-25 | ECG_ITS ---
Test Reason : rule out prolonged QTC Blood Pressure : / mmHG Vent. Rate : 068 BPM Atrial Rate : 068 BPM P-R Int : 130 ms QRS Dur : 078 ms QT Int : 390 ms P-R-T Axes : 051 034 048 degrees QTc Int : 414 ms Normal sinus rhythm Normal ECG No previous ECGs available Referred By: Don Holder Electronically Signed By:DEMETRIS GONZALEZ MD
[2024-03-25 02:22] VITALS: BP 111/72; PULSE 67; RESP 17; TEMP 36.6; O2SAT 95
[2024-03-25] MEDS: guaiFENesin 200 MG/10 ML 10 ML LIQUID PO ×2 (02:52→18:41)
[2024-03-25] MEDS: Levothyroxine Sodium 100 MCG TABLET PO (06:52)
--- NOTE | 2024-03-25 07:37 | PC.NURSE ---
Assumed care of patient at 0645, patient appears to be up eating breakfast at this time, respirations even and unlabored, offering no complaints to this RN. Pt aware of plan of care for inpatient bedsearch
[2024-03-25] MEDS: metFORMIN HCl 1,000 MG TABLET 1000 MG PO ×2 (08:24→21:16)
[2024-03-25] MEDS: lisinopriL 5 MG TABLET PO (08:24)
[2024-03-25] MEDS: Topiramate 25 MG TABLET PO ×2 (08:24→21:15)
[2024-03-25] MEDS: Benztropine Mesylate 1 MG TABLET PO ×2 (08:24→21:15)
[2024-03-25] MEDS: Cholecalciferol (Vitamin D3) 25 MCG TABLET 50 MCG PO (08:24)
[2024-03-25] MEDS: Fluticasone/Vilanterol 100/25 BLST.W.DEV 1 PUFF INHALE (08:24)
[2024-03-25] MEDS: Propranolol HCL 10 MG TABLET PO ×2 (08:24→21:16)
[2024-03-25] MEDS: Pyridoxine HCl (Vitamin B6) 50 MG TABLET 25 MG PO (08:24)
[2024-03-25] MEDS: levETIRAcetam 500 MG TABLET 1500 MG PO ×2 (08:25→21:15)
[2024-03-25] MEDS: Benzonatate 100 MG CAPSULE 200 MG PO ×2 (08:25→21:16)
[2024-03-25] MEDS: Cyanocobalamin (Vitamin B-12) 1,000 MCG TABLET 1000 MCG PO (08:25)
[2024-03-25] MEDS: Atorvastatin Calcium 10 MG TABLET 5 MG PO (08:25)
--- NOTE | 2024-03-25 08:35 | PC.NURSE ---
Pt given am medications without issue, pt requesting to hold off on Psyllium seed due to diarrhea and upset stomach. of note, this RN gave pt her Breo Inhaler, pt attempted to inhale with cover still partially on. this RN attempted to correct patient and educate her on the correct way to take the medication, pt refusing stating that she does it this way and does not want anyone telling her how to take her inhaler
--- NOTE | 2024-03-25 08:50 | PC.NURSE ---
Pt showered, no apparent distress noted
[2024-03-25] MEDS: Mirabegron 50 MG TAB.ER.24H PO (10:14)
[2024-03-25 15:03] VITALS: BP 100/62; PULSE 75; RESP 18; TEMP 36.1; O2SAT 95
[2024-03-25 15:05] VITALS: BMI 40.3
[2024-03-25] MEDS: OLANZapine 5 MG TABLET PO (16:05)
[2024-03-25 16:08] LABS: Albumin Level 3.8 g/dL (3.5-5.0); Anion Gap 13 (12-20); Aspartate Amino Transferase 25 U/L (5-31); Bilirubin Total 0.3 mg/dL (0.0-1.0); Blood Urea Nitrogen 18 mg/dL (9-16); Carbon Dioxide 25 mmol/L (22-29); Chloride 105 mmol/L (96-108); Creatinine Clr Calc Pharmacy 59.2; Estimated Glomerular Filt Rate 55; Glucose Random 127 mg/dL (60-115); Potassium 4.4 mmol/L (3.3-5.1); Sodium 139 mmol/L (135-145); Total Protein 6.6 g/dL (6.5-8.0)
[2024-03-25 16:15] LABS: Alanine Aminotransferase 28 U/L (0-31); Alkaline Phosphatase 45 U/L (39-117)
--- NOTE | 2024-03-25 16:37 | PC.ADMIT ---
Lashanda arrived on the unit at 1457 from the ED by this medical technical writer and a information security analyst. Admitted for compensation of schizoaffective d/o evidenced by AH and delusions. Dr. Caceres met with Lashanda and she signed a CV. She is a/o x 3 with poor insight as she doesn't know why she is hospitalized. She denied SI/HI/VH. She endorsed AH and is paranoid and delusional. Lashanda denied CAH. I hear a mad man coming to get me. He's threatening to harm me and my family. She also reported her family members in the ED having orgies. Lashanda responded Yes when she asked if she really believed a man was coming to get her. She is pleasant, calm and cooperative with the interview process. Dry cough noted and has been tested for flu and Covid which were both negative on 03/24. Lashanda asked this medical technical writer Am I in trouble? She was cooperative with the admission process. She was oriented to the room and her unit. She was observed on the unit having a snack and speaking with peers. Skin check completed by this medical technical writer and HEIDI Rocha and BLE dry and upper back noted to have scarring due to melanoma removal; otherwise skin is intact. Ambulates with a slow gait, uses a cane at times. Demeanor is calm and cooperative. Placed on five minute checks for safety per facility protocol.
[2024-03-25 19:45] VITALS: BP 104/62; PULSE 87; RESP 16; TEMP 36.1; O2SAT 97
[2024-03-25] MEDS: Melatonin 3 MG TABLET 12 MG PO (21:15)
[2024-03-25] MEDS: Divalproex Sodium 500 MG TABLET.DR PO (21:15)
[2024-03-25 21:16] VITALS: BP 104/67; PULSE 87
[2024-03-25] MEDS: Albuterol Sulfate 90 MCG 8 GM INHALER 90 PUFF INHALE (21:20)
[2024-03-25] MEDS: Psyllium seed 3.7 GM PACKET PO (21:23)
[2024-03-26] MEDS: guaiFENesin 200 MG/10 ML 10 ML LIQUID PO ×3 (00:42→20:38)
[2024-03-26] MEDS: Levothyroxine Sodium 100 MCG TABLET PO (06:21)
[2024-03-26 07:14] LABS: Glucose, Whole Blood 148 mg/dL (60-115)
[2024-03-26 08:39] VITALS: BP 113/65; PULSE 77; RESP 18; TEMP 36.4; O2SAT 93
[2024-03-26] MEDS: Psyllium seed 3.7 GM PACKET PO ×2 (08:40→20:25)
[2024-03-26] MEDS: Pyridoxine HCl (Vitamin B6) 50 MG TABLET 25 MG PO (08:40)
[2024-03-26] MEDS: Cyanocobalamin (Vitamin B-12) 1,000 MCG TABLET 1000 MCG PO (08:41)
[2024-03-26] MEDS: Benzonatate 100 MG CAPSULE 200 MG PO (08:41)
[2024-03-26] MEDS: Topiramate 25 MG TABLET PO ×2 (08:42→20:25)
[2024-03-26] MEDS: Propranolol HCL 10 MG TABLET PO ×2 (08:42→20:25)
[2024-03-26] MEDS: Cholecalciferol (Vitamin D3) 25 MCG TABLET 50 MCG PO (08:42)
[2024-03-26] MEDS: Atorvastatin Calcium 10 MG TABLET 5 MG PO (08:43)
[2024-03-26] MEDS: Benztropine Mesylate 1 MG TABLET PO ×2 (08:44→20:25)
[2024-03-26] MEDS: lisinopriL 5 MG TABLET PO (08:44)
[2024-03-26] MEDS: Mirabegron 50 MG TAB.ER.24H PO (08:45)
[2024-03-26] MEDS: metFORMIN HCl 1,000 MG TABLET 1000 MG PO ×2 (08:45→20:26)
[2024-03-26] MEDS: levETIRAcetam 500 MG TABLET 1500 MG PO ×2 (08:45→20:26)
[2024-03-26 09:42] LABS: Cholesterol 125 mg/dL (<200); HDL Cholesterol 35 mg/dL (>40); LDL Cholesterol Calculated 71 mg/dL (<100); Triglycerides 99 mg/dL (<150)
[2024-03-26] MEDS: Fluticasone/Vilanterol 100/25 BLST.W.DEV 1 PUFF INHALE (10:28)
--- NOTE | 2024-03-26 13:56 | HO.PSYADMNOT ---
HPI Date of Service: 03/26/24 Chief Complaint: psychosis Sources of Information: patient interviewed, chart reviewed and crisis/core team assessment reviewed HPI Subjective Notes: Robin Warning and Conditional Voluntary Narrative: The patient is a 63-year-old female with a past history of schizoaffective disorder, recently discharged from this facility to the community with aftercare a few days ago. She was supposed to receive her Aristada shot as part of the aftercare. It was unclear if she received her medications are not, according to the crisis assessment the patient was disorganized, psychotic unable to take care of herself. She was assessed by crisis and transferring to this facility for psychiatric stabilization. On the intake interview the patient reported that she does not not know why she was brought here, she stated that she was feeling fine, she denies auditory hallucinations but she looks internally preoccupied as baseline. She was able to contract for safety and she was willing to follow treatment. We will try to gather more collateral information to figure it out if she received treatment or not after the discharge. Past Psychiatric History: hosps: reports more than 10 SA: denies SIB: denies outpt: reports none presently but had prescriber as recently as 4 weeks ago. unclear what she perceives has changed. Medical Evaluation Reviewed: Yes [facility] Medical History Stable angina History of melanoma HTN (hypertension) Mild persistent asthma FERMÍN (obstructive sleep apnea) Diabetic peripheral neuropathy NPH (normal pressure hydrocephalus) Seizure disorder CKD (chronic kidney disease) Hypothyroidism Type 2 diabetes mellitus Schizoaffective disorder Family History: mother - depression Social History: lives alone in [facility] in [place], [place], where she rents. never , no children. some college. was last working about 15 years ago, working in [place] at a [employer] in [place], [place]. income is from [employer]. Trauma History: reports she saw a vision of her sister's being murdered in 1972. she reports her sister was actually murdered. Diagnostics Vital Signs (24Hr): Vital Signs - 24 hr 03/25/24 15:03 03/25/24 19:45 03/25/24 21:16 Temperature 97.0 F 97 F Pulse Rate 75 87 87 Respiratory Rate 18 16 Blood Pressure 100/62 104/62 104/67 Pulse Oximetry 95 97 Oxygen Delivery Method Room Air 03/26/24 08:39 Temperature 97.6 F Pulse Rate 77 Respiratory Rate 18 Blood Pressure 113/65 Pulse Oximetry 93 Oxygen Delivery Method Room Air BMI result Body Mass Index 40.3 Labs 03/22/24 21:02 03/25/24 15:39 Labs: Laboratory Results - last 48 hr 03/25/24 03/26/24 03/26/24 15:39 07:10 08:52 Sodium 139 Potassium 4.4 Chloride 105 Carbon Dioxide 25 Anion Gap 13 BUN 18 H Creatinine 1.02 Estim Creat Clear Calc 59.2 Estimated GFR 55 POC Glucose 148 H Random Glucose 127 H Calcium 9.0 Total Bilirubin 0.3 AST 25 ALT 28 Alkaline Phosphatase 45 Total Protein 6.6 Albumin 3.8 Triglycerides 99 Cholesterol 125 LDL Cholesterol, Calc 71 HDL Cholesterol 35 L Imaging Radiology Impressions: ITS Impressions Chest X-Ray 03/23/24 01:46 IMPRESSION: There appears to be bronchial thickening which may be seen with bronchitis. There is no focal lung consolidation or pleural effusions Electronically signed by: Marcos Payne MD 03/23/2024 03:55 AM EST Meds/Allergies Allergies Allergies Allergy/AdvReac Type Severity Reaction Status Date / Time oxcarbazepine Allergy Unknown Verified 03/22/24 20:38 [From Trileptal] peanut Allergy Unknown Verified 03/22/24 20:38 quetiapine [From Seroquel] Allergy Vomiting Verified 03/22/24 20:38 Mental Status Exam Mental Status Exam Patient Appearance: Appropriate Patient Orientation: Person and Situation Level of Consciousness: Awake and Appropriate Patient Behavior: Guarded and Passive Mood Description: Withdrawn Patient Cognition Impaired: Yes Ability to Follow Directions: Good Speech Pattern: Clear Hallucinations: None Delusions: Not Present Thought Process: Distracted and Slowed Thinking Thought Content: positive for [place] and positive for Poverty of Content Judgement: Fair Assessment & Plan Assessment & Plan (1) Schizoaffective disorder: Status: Acute Code(s): F25.9 - Schizoaffective disorder, unspecified (2) HTN (hypertension): Status: Acute Code(s): I10 - Essential (primary) hypertension (3) Type 2 diabetes mellitus: Status: Acute Code(s): E11.9 - Type 2 diabetes mellitus without complications (4) Mild persistent asthma: Status: Acute Code(s): J45.30 - Mild persistent asthma, uncomplicated (5) Hypothyroidism: Status: Acute Code(s): E03.9 - Hypothyroidism, unspecified (6) Diabetic peripheral neuropathy: Status: Acute Code(s): E11.42 - Type 2 diabetes mellitus with diabetic polyneuropathy (7) CKD (chronic kidney disease): Status: Acute Code(s): N18.9 - Chronic kidney disease, unspecified (8) Seizure disorder: Status: Acute Code(s): G40.909 - Epilepsy, unspecified, not intractable, without status epilepticus Plan The patient is an elderly female with schizoaffective disorder and other medical comorbidities who was recently discharged from this facility for psychotic decompensation, stable but she did not receive most likely her Aristada injection in the community and went back grossly psychotic. On intake the patient was pleasant cooperative and could not understand why she was here. Plan 1. Gather collateral information. 2. The patient was able to contract for safety she will be on 15 minute checks. 3. Continue with regular medications. 4. Reassessment with results. Patient educated on: diagnosis Reason for continued inpatient stay Substantial Risk for: inability to function, rapid decompensation and med/psych decompensation Statement Statement: I have reviewed the history and physical and performed a pertinent examination on my patient. No changes have occurred unless specified. If the History and Physical was not performed prior to admission, the Hospitalist's service will be consulted for completing the admission physical. Time Spent With Patient Time: Total time managing care of this patient today __45__ minutes.
[2024-03-26] MEDS: OLANZapine 5 MG TABLET PO (15:50)
[2024-03-26] MEDS: Acetaminophen 325 MG TABLET 975 MG PO (15:51)
[2024-03-26 16:19] LABS: Glucose, Whole Blood 106 mg/dL (60-115)
[2024-03-26 20:00] VITALS: BP 128/65; PULSE 67; RESP 18; TEMP 36.4; O2SAT 94
[2024-03-26] MEDS: Divalproex Sodium 500 MG TABLET.DR PO (20:25)
[2024-03-26] MEDS: Melatonin 3 MG TABLET 12 MG PO (20:26)
[2024-03-26] MEDS: Albuterol Sulfate 90 MCG 8 GM INHALER 90 PUFF INHALE (20:38)
[2024-03-26 20:46] LABS: Glucose, Whole Blood 108 mg/dL (60-115)
[2024-03-27] MEDS: Albuterol Sulfate 90 MCG 8 GM INHALER 90 PUFF INHALE ×2 (03:53→20:22)
[2024-03-27] MEDS: guaiFENesin 200 MG/10 ML 10 ML LIQUID PO ×2 (03:57→11:48)
[2024-03-27] MEDS: Levothyroxine Sodium 100 MCG TABLET PO (05:42)
[2024-03-27 08:00] VITALS: BP 137/74; PULSE 80; RESP 18; TEMP 36.1; O2SAT 95
[2024-03-27 08:00] LABS: Glucose, Whole Blood 139 mg/dL (60-115)
[2024-03-27] MEDS: Atorvastatin Calcium 10 MG TABLET 5 MG PO (08:30)
[2024-03-27 08:31] VITALS: BP 137/74
[2024-03-27] MEDS: Mirabegron 50 MG TAB.ER.24H PO (08:31)
[2024-03-27] MEDS: lisinopriL 5 MG TABLET PO (08:31)
[2024-03-27] MEDS: levETIRAcetam 500 MG TABLET 1500 MG PO ×2 (08:32→20:23)
[2024-03-27] MEDS: Benztropine Mesylate 1 MG TABLET PO ×2 (08:32→20:26)
[2024-03-27 08:33] VITALS: BP 137/74; PULSE 80
[2024-03-27] MEDS: Propranolol HCL 10 MG TABLET PO ×2 (08:33→20:25)
[2024-03-27] MEDS: Topiramate 25 MG TABLET PO ×2 (08:34→20:25)
[2024-03-27] MEDS: Cyanocobalamin (Vitamin B-12) 1,000 MCG TABLET 1000 MCG PO (08:35)
[2024-03-27] MEDS: Cholecalciferol (Vitamin D3) 25 MCG TABLET 50 MCG PO (08:35)
[2024-03-27] MEDS: Psyllium seed 3.7 GM PACKET PO ×2 (08:36→20:22)
[2024-03-27] MEDS: metFORMIN HCl 1,000 MG TABLET 1000 MG PO ×2 (08:36→20:24)
[2024-03-27] MEDS: Fluticasone/Vilanterol 100/25 BLST.W.DEV 1 PUFF INHALE (08:40)
[2024-03-27] MEDS: Acetaminophen 325 MG TABLET 975 MG PO (09:49)
[2024-03-27] MEDS: Pyridoxine HCl (Vitamin B6) 50 MG TABLET 25 MG PO (09:50)
--- OUTSIDE RECORDS SUMMARY | 2024-03-27 11:29 | XMS_ITS | Clinical Summary ---
Author Organization Unknown Care Team Providers Care Block And Case Maker Name Role Phone HARVINDER SEGOVIA, ALEXIS Unavailable Unavailable CARLTON OTVALENTÍN Unavailable Valeriano CASTRO RN, JAYDON Unavailable Valeriano DELANEY PT, TERESITA Unavailable Unavailable Payers Payer Name Policy Type Policy Number Effective Date Expira tion Date [facility] [id number] [place] [id number] MEDICARE - [facility] [id number] Problems Condition Name Condition Details Condition Category Status Onset Date Resolution Date Last Treatment Date Treating Clinician Comments SCHIZOAFFECT JULEE DISORDER, DEPRESSIVE TYPE Active 01-12 00:00: 00 TYPE 2 DIABETES MELLITUS WITHOUT COMPLICATION S Active 01-12 00:00: 00 OBESITY, UNSPECIFIED Active 01-12 00:00: 00 GENERALIZED ANXIETY DISORDER Active 01-12 00:00: 00 OTHER SEIZURES Active 01-12 00:00: 00 OTHER CHRONIC PAIN Active 08-06 00:00: 00 Allergies, Adverse Reactions, Alerts Allergy Name Allergy Type Status Severity Reaction(s) Onset Date Inactive Date Treating Clinician Comments SEROQUEL Propensity to adverse reactions Active 2021-04 16:42: 48 TRILEPTAL Propensity to adverse reactions Active 2021-04 16:42: 27 PEANUT Propensity to adverse reactions Active 2021-04 16:42: 58 ARIPIPRAZOLE Propensity to adverse reactions Active 2021-04 16:41: 16 Medications Ordered Medication Name Filled Medication Name Start Date Stop Date Current Medication? Ordering Clinician Indication Dosage Frequency Signature (SIG) Comments Components Combivent Respimat 20 mcg-100 mcg/actuati on solution for inhalation 12-24 00:00: 00 11-11 23:59 :00 No [id number] Per instruc tions INTO THE LUNGS FOUR TIMES DAILY Per instructio ns INTO THE LUNGS FOUR TIMES DAILY (route: inhalation ) Med Classific ation: Respirato ry Therapy Agents Vitamin B-12 1,000 mcg tablet 12-24 00:00: 00 05-12 23:59 :00 No [id number] Unavailable 1 tablet ONCE DAILY 1 tablet ONCE DAILY (route: oral) Med Classific ation: Electroly te Balance-N utritiona l Products Vitamin D3 50 mcg (2,000 unit) capsule 12-24 00:00: 00 05-12 23:59 :00 No [id number] 1 capsule DAILY 1 capsule DAILY (route: oral) Med Classific ation: Electroly te Balance-N utritiona l Products topiramate 100 mg tablet 12-21 00:00: 00 05-12 23:59 :00 No [id number] Unavailable 1 tablet 2 TIMES DAILY 1 tablet 2 TIMES DAILY (route: oral) Med Classific ation: Central Nervous System Agents Myrbetriq 50 mg tablet,exte nded release 12-18 00:00: 00 01-27 23:59 :00 No [id number] Unavailable Per instruc tions ONCE DAILY Per instructio ns ONCE DAILY (route: oral) Med Classific ation: Genitouri nary Therapy clobazam 10 mg tablet 12-16 00:00: 00 11-11 23:59 :00 No [id number] Unavailable 1 tablet BEDTIME 1 tablet BEDTIME (route: oral) Med Classific ation: Central Nervous System Agents senna 8.6 mg tablet 12-13 00:00: 00 11-11 23:59 :00 No [id number] 2 tablet AT BEDTIME NEEDED 2 tablet AT BEDTIME NEEDED (route: oral) Med Classific ation: Gastroint estinal Therapy Agents benztropine 1 mg tablet 2021-04 00:00: 00 05-12 23:59 :00 No [id number] 1 tablet 2 TIMES DAILY 1 tablet 2 TIMES DAILY (route: oral) Med Classific ation: Central Nervous System Agents Diflucan 150 mg tablet 2021-04 00:00: 00 02-09 23:59 :00 No [id number] 1 tablet DAILY 1 tablet DAILY (route: oral) Med Classific ation: Anti-Infe ctive Agents hydroxyzine HCl 50 mg tablet 2021-04 00:00: 00 03-14 23:59 :00 No [id number] 1 tablet BEDTIME 1 tablet BEDTIME (route: oral) Med Classific ation: Central Nervous System Agents levetiracet am 1,000 mg tablet 2021-04 00:00: 00 11-11 23:59 :00 No [id number] 2 tablet 2 TIMES DAILY 2 tablet 2 TIMES DAILY (route: oral) Med Classific ation: Central Nervous System Agents Levoxyl 100 mcg tablet 2021-04 00:00: 00 11-11 23:59 :00 No [id number] 1 tablet DAILY 1 tablet DAILY (route: oral) Med Classific ation: Endocrine metformin 1,000 mg tablet 2021-04 00:00: 00 11-11 23:59 :00 No [id number] 1 tablet 2 TIMES DAILY 1 tablet 2 TIMES DAILY (route: oral) Med Classific ation: Endocrine montelukast 10 mg tablet 2021-04 00:00: 00 11-11 23:59 :00 No [id number] 1 tablet BEDTIME 1 tablet BEDTIME (route: oral) Med Classific ation: Respirato ry Therapy Agents nystatin 100,000 unit/gram topical powder 2021-04 00:00: 00 05-12 23:59 :00 No [id number] Per instruc tions DIRECTED Per instructio ns DIRECTED (route: topical) Med Classific ation: Dermatolo gical olanzapine 10 mg tablet 2021-04 00:00: 00 05-12 23:59 :00 No [id number] 1 tablet BEDTIME 1 tablet BEDTIME (route: oral) Med Classific ation: Central Nervous System Agents olanzapine 15 mg tablet 2021-04 00:00: 00 05-12 23:59 :00 No [id number] 1 tablet EVERY AM 1 tablet EVERY AM (route: oral) Med Classific ation: Central Nervous System Agents propranolol 10 mg tablet 2021-04 00:00: 00 11-11 23:59 :00 No [id number] 1 tablet 2 TIMES DAILY 1 tablet 2 TIMES DAILY (route: oral) Med Classific ation: Cardiovas cular Therapy Agents Topamax 50 mg tablet 2021-04 00:00: 00 05-12 23:59 :00 No [id number] 1 tablet 2 TIMES DAILY 1 tablet 2 TIMES DAILY (route: oral) Med Classific ation: Central Nervous System Agents hydroxyzine pamoate 100 mg capsule 2021-04 00:00: 00 11-11 23:59 :00 No [id number] 1 capsule BEDTIME 1 capsule BEDTIME (route: oral) Med Classific ation: Central Nervous System Agents trazodone 50 mg tablet 04-19 00:00: 00 05-12 23:59 :00 No [id number] 50 mg BEDTIME 50 mg BEDTIME (route: oral) Med Classific ation: Central Nervous System Agents albuterol sulfate HFA 90 mcg/actuati on aerosol inhaler 05-12 00:00: 00 11-11 23:59 :00 No [id number] 1 puff 4 TIMES DAILY 1 puff 4 TIMES DAILY (route: inhalation ) Med Classific ation: Respirato ry Therapy Agents gabapentin 100 mg capsule 05-12 00:00: 00 11-11 23:59 :00 No [id number] 1 capsule 3 TIMES DAILY 1 capsule 3 TIMES DAILY (route: oral) Med Classific ation: Central Nervous System Agents glipizide ER 2.5 mg tablet, extended release 24 hr 05-12 00:00: 00 11-11 23:59 :00 No [id number] 1 tablet DAILY 1 tablet DAILY (route: oral) Med Classific ation: Endocrine lamotrigine 25 mg tablet 05-12 00:00: 00 11-11 23:59 :00 No [id number] 3 tablet DAILY 3 tablet DAILY (route: oral) Med Classific ation: Central Nervous System Agents lorazepam 0.5 mg tablet 05-12 00:00: 00 11-11 23:59 :00 No [id number] 1 tablet 2 TIMES DAILY 1 tablet 2 TIMES DAILY (route: oral) Med Classific ation: Central Nervous System Agents olanzapine 20 mg tablet 05-12 00:00: 00 11-11 23:59 :00 No [id number] 1 tablet DAILY 1 tablet DAILY (route: oral) Med Classific ation: Central Nervous System Agents olanzapine 5 mg disintegrat ing tablet 05-12 00:00: 00 11-11 23:59 :00 No [id number] 1 tablet 2 TIMES DAILY 1 tablet 2 TIMES DAILY (route: oral) Med Classific ation: Central Nervous System Agents topiramate 100 mg tablet 05-12 00:00: 00 11-11 23:59 :00 No [id number] 1 tablet 2 TIMES DAILY 1 tablet 2 TIMES DAILY (route: oral) Med Classific ation: Central Nervous System Agents trazodone 50 mg tablet 05-12 00:00: 00 11-11 23:59 :00 No [id number] 0.5 tablet BEDTIME 0.5 tablet BEDTIME (route: oral) Med Classific ation: Central Nervous System Agents trazodone 50 mg tablet 05-12 00:00: 00 11-11 23:59 :00 No [id number] 0.5 tablet BEDTIME 0.5 tablet BEDTIME (route: oral) Med Classific ation: Central Nervous System Agents lisinopril 5 mg tablet 05-12 00:00: 00 11-11 23:59 :00 No [id number] 1 tablet DAILY 1 tablet DAILY (route: oral) Med Classific ation: Cardiovas cular Therapy Agents Myrbetriq 50 mg tablet,exte nded release 2-10 00:00: 00 11-11 23:59 :00 No [id number] 1 tablet BEDTIME 1 tablet BEDTIME (route: oral) Med Classific ation: Genitouri nary Therapy Plan of Treatment Planned Activity Planned Date Details Comments Future Scheduled Test SKILLED NU RSE TO EVALUATE PATIENT, IDENTIFY PRIMARY AND CO-MORBID CONDITIONS CODED PER CODING GUIDELINES, AND DEVELOP PATIENT SPECIFIC PLAN OF CARE THAT INCLUDES PATIENT GOAL FOR HOME HEALTH. OMAR WAS SEEN FOR RECERTIFICATION OF CARE. HER DIAGNOSES ARE FOLLOWS SCHIZOAFFECTIVE DISORDER, HYPOTHYROIDISM, HYPERTENSION, SEIZURE DISORDER, GENERALIZED ANXIETY, DIABETES MELLITUS TYPE 2 AND OBESITY. SHE LIVES ALONE IN THE COMMUNITY. SINCE THE FIRST OF THE YEAR SHE HAS UTILZED THE ER AND ALSO HAD HOSPITAL STAYS (MORE THAN 1) AND ALSO SNF STAY FOR SUB ACUTE CARE/REHAB. SHE IS ON NUMEROUS MEDICATIONS AND PRIOR TO NURSE VISITING 5X WEEKLY SHE WAS MIS TAKING THE MEDICATIONS EVEN THOUGH POURED BY NURSE. SINCE VISITS HAVE BEEN INCREASED TO 5X WEEKLY SHE HAS SHOWN AN INCREASE IN STABILITY AND A DECREASE IN SYMPTOMS. SHE IS ALSO ESTABLISHED WITH [facility], AND THEY HAVE BEEN INFORMED INGOING OF HER STATUS. SHE WENT ON ANOTHER VISIT TO [facility] YESTERDAY AND THINKS SHE WILL SIGN UP WITH THEM . SHE REPORTS NO DEFINITE DECISION AND NO START DATE WAS DISCUSSED. WILL FOLLOW UP WITH HER SISTER YUDI NEXT WEEK . SHE IS EASILY OVERWHELMED BY [facility]S AND STATES THAT [facility] TOLD HER THEY WILL LOOK INTO BU[facility]LE PACKING FOR HER.NURSING VISITS . NURSING VISITS TO REMAIN 5XWEEKLY FOR OBSERVATION AND ASSESSMENT OF PSYCHIATRIC AND COMORBID CONDITIONS, MONITOR MEDICATION EFFECTIVENESS AND COMPLIANCE, FILL MEDIPLANNER, EDUCATE ON DISEASE PROCESS AND SYMPTOM MANAGEMENT. [facility] ADVISED OF RECERTIFICATION, WELL PCP [code = SKILLED NURSE TO EVALUATE PATIENT, IDENTIFY PRIMARY AND CO-MORBID CONDITIONS CODED PER CODING GUIDELINES, AND DEVELOP PATIENT SPECIFIC PLAN OF CARE THAT INCLUDES PATIENT GOAL FOR HOME HEALTH. OMAR WAS SEEN FOR RECERTIFICATION OF CARE. HER DIAGNOSES ARE FOLLOWS SCHIZOAFFECTIVE DISORDER, HYPOTHYROIDISM, HYPERTENSION, SEIZURE DISORDER, GENERALIZED ANXIETY, DIABETES MELLITUS TYPE 2 AND OBESITY. SHE LIVES ALONE IN THE COMMUNITY. SINCE THE FIRST OF THE YEAR SHE HAS UTILZED THE ER AND ALSO HAD HOSPITAL STAYS (MORE THAN 1) AND ALSO SNF STAY FOR SUB ACUTE CARE/REHAB. SHE IS ON NUMEROUS MEDICATIONS AND PRIOR TO NURSE VISITING 5X WEEKLY SHE WAS MIS TAKING THE MEDICATIONS EVEN THOUGH POURED BY NURSE. SINCE VISITS HAVE BEEN INCREASED TO 5X WEEKLY SHE HAS SHOWN AN INCREASE IN STABILITY AND A DECREASE IN SYMPTOMS. SHE IS ALSO ESTABLISHED WITH [facility], AND THEY HAVE BEEN INFORMED INGOING OF HER STATUS. SHE WENT ON ANOTHER VISIT TO [facility] YESTERDAY AND THINKS SHE WILL SIGN UP WITH THEM . SHE REPORTS NO DEFINITE DECISION AND NO START DATE WAS DISCUSSED. WILL FOLLOW UP WITH HER SISTER YUDI NEXT WEEK . SHE IS EASILY OVERWHELMED BY [facility] AND STATES THAT [facility] TOLD HER THEY WILL LOOK INTO [facility]LE [facility] FOR HER.NURSING VISITS . NURSING VISITS TO REMAIN 5XWEEKLY FOR OBSERVATION AND ASSESSMENT OF PSYCHIATRIC AND COMORBID CONDITIONS, MONITOR MEDICATION EFFECTIVENESS AND COMPLIANCE, FILL MEDIPLANNER, EDUCATE ON DISEASE PROCESS AND SYMPTOM MANAGEMENT. [facility] ADVISED OF RECERTIFICATION, WELL PCP] Future Scheduled Test SKILLED NU RSE TO O/A OF PATIENTS MENTAL/BEHAVIORAL STATUS, ASSESS VITAL SIGNS ALLOW 2 PRNS FOR MEDICATION MANAGEMENT. [code = SKILLED NURSE TO O/A OF PATIENTS MENTAL/BEHAVIORAL STATUS, ASSESS VITAL SIGNS ALLOW 2 PRNS FOR MEDICATION MANAGEMENT.] Future Scheduled Test SKILLED NU RSE FOR O/A OF GENERAL HEALTH STATUS OF PAIN, CARDIAC, RESPIRATORY, GASTROINTESTINAL, GENITOURINARY, SKIN, NEUROLOGIC, ENDOCRINE SYSTEMS TO IDENTIFY CHANGES ASSOCIATED WITH EXACERBATION FOR EARLY INTERVENTION OF COMPLICATIONS 5XWEEKLY [code = SKILLED NURSE FOR O/A OF GENERAL HEALTH STATUS OF PAIN, CARDIAC, RESPIRATORY, GASTROINTESTINAL, GENITOURINARY, SKIN, NEUROLOGIC, ENDOCRINE SYSTEMS TO IDENTIFY CHANGES ASSOCIATED WITH EXACERBATION FOR EARLY INTERVENTION OF COMPLICATIONS 5XWEEKLY ] Future Scheduled Test SKILLED NU RSE TO PRE-POUR MEDICATION PER MEDICATION LIST WEEKLY [code = SKILLED NURSE TO PRE-POUR MEDICATION PER MEDICATION LIST WEEKLY ] Future Scheduled Test SKILLED NU RSE FOR O/A AND SKILLED TEACHING OF COPING SKILLS TO MANAGE ANXIETY AND MAINTAIN SAFETY [code = SKILLED NURSE FOR O/A AND SKILLED TEACHING OF COPING SKILLS TO MANAGE ANXIETY AND MAINTAIN SAFETY ] Future Scheduled Test SKILLED NU RSE FOR O/A OF ALTERED THOUGHT PROCESS AND/OR DISRUPTION IN COGNITIVE OPERATIONS AND ACTIVITIES [code = SKILLED NURSE FOR O/A OF ALTERED THOUGHT PROCESS AND/OR DISRUPTION IN COGNITIVE OPERATIONS AND ACTIVITIES ] Future Scheduled Test SKILLED NU RSE TO REVIEW PATIENT MEDICATIONS. INSTRUCT PATIENT/CAREGIVER ON MONITORING OF EFFECTIVENESS, ADVERSE DRUG REACTIONS, SIDE EFFECTS OF ALL MEDICATIONS (PRESCRIPTION/-OTC), AND HOW AND WHEN TO REPORT PROBLEMS. [code = SKILLED NURSE TO REVIEW PATIENT MEDICATIONS. INSTRUCT PATIENT/CAREGIVER ON MONITORING OF EFFECTIVENESS, ADVERSE DRUG REACTIONS, SIDE EFFECTS OF ALL MEDICATIONS (PRESCRIPTION/-OTC), AND HOW AND WHEN TO REPORT PROBLEMS. ] Future Scheduled Test SKILLED NU RSE FOR O/A OF LOWER EXTREMITIES TO IDENTIFY CHANGES OR LESIONS ASSOCIATED WITH DIABETES MELLITUS FOR EARLY INTERVENTIONS OF COMPLICATIONS. SKILLED NURSE TO PROVIDE INSTRUCTION ON PROPER DIABETIC SKIN/FOOT CARE. [code = SKILLED NURSE FOR O/A OF LOWER EXTREMITIES TO IDENTIFY CHANGES OR LESIONS ASSOCIATED WITH DIABETES MELLITUS FOR EARLY INTERVENTIONS OF COMPLICATIONS. SKILLED NURSE TO PROVIDE INSTRUCTION ON PROPER DIABETIC SKIN/FOOT CARE. ] Future Scheduled Test SKILLED NU RSE FOR OBSERVATION AND ASSESSMENT OF PATIENTS PAIN LEVEL AND EFFECTIVENESS OF PAIN MANAGEMENT REGIMEN. SKILLED NURSE TO INSTRUCT PATIENT/CAREGIVER REGARDING PHARMACOLOGIC AND NON-PHARMACOLOGIC PAIN CONTROL MEASURES. SKILLED NURSE TO REPORT TO PHYSICIAN IF PAIN IS UNCONTROLLED WITH CURRENT PAIN MANAGEMENT REGIMEN. [code = SKILLED NURSE FOR OBSERVATION AND ASSESSMENT OF PATIENTS PAIN LEVEL AND EFFECTIVENESS OF PAIN MANAGEMENT REGIMEN. SKILLED NURSE TO INSTRUCT PATIENT/CAREGIVER REGARDING PHARMACOLOGIC AND NON-PHARMACOLOGIC PAIN CONTROL MEASURES. SKILLED NURSE TO REPORT TO PHYSICIAN IF PAIN IS UNCONTROLLED WITH CURRENT PAIN MANAGEMENT REGIMEN.] Future Scheduled Test SKILLED NU RSE TO PROVIDE INSTRUCTION ON FALL PREVENTION MEASURES. [code = SKILLED NURSE TO PROVIDE INSTRUCTION ON FALL PREVENTION MEASURES.] Future Scheduled Test SKILLED NU RSE FOR O/A OF DEPRESSIVE SYMPTOMS, SN TO REPORT SIGNIFICANT CHANGE IN DEPRESSIVE SYMPTOMS TO CLINICAL PROVIDER FOR EARLY INTERVENTION. [code = SKILLED NURSE FOR O/A OF DEPRESSIVE SYMPTOMS, SN TO REPORT SIGNIFICANT CHANGE IN DEPRESSIVE SYMPTOMS TO CLINICAL PROVIDER FOR EARLY INTERVENTION.] Future Scheduled Test PATIENT MA Y HAVE ONE SET OF EMERGENCY MEDICATION NOT TO BE PRE-POURED ANY SOONER THAN 24 HOURS BEFORE SEVERE INCLEMENT WEATHER AND FOLLOWING SKILLED NURSE EVALUATION OF PATIENT SAFETY. [code = PATIENT MAY HAVE ONE SET OF EMERGENCY MEDICATION NOT TO BE PRE-POURED ANY SOONER THAN 24 HOURS BEFORE SEVERE INCLEMENT WEATHER AND FOLLOWING SKILLED NURSE EVALUATION OF PATIENT SAFETY.] Future Scheduled Test SKILLED NU RSE MAY PICKUP AND TRANSPORT MEDICATIONS [code = SKILLED NURSE MAY PICKUP AND TRANSPORT MEDICATIONS] Goal 2022-03-24 Patient Goal - T O GET MY MEDICATION STRAIGHT Goal 2022-05-26 Patient Goal - T O GET MY MEDICATION STRAIGHT Goal 2022-07-25 Patient Goal - T O GET MY MEDICATION STRAIGHT Goal 2022-09-22 Patient Goal - T O GET MY MEDICATION STRAIGHT Goal 2022-10-14 Patient Goal - T O GET MY MEDICATION STRAIGHT Goal Provider Goal - A PLAN OF CARE WILL BE ESTABLISHED THAT MEETS PATIENT'S RESIDENTIAL NEEDS AND INCLUDES PATIENT GOAL FOR HOME HEALTH. Goal Provider Goal - ALTERED MENTAL/BEHAVIORAL STATUS WILL BE IDENTIFIED PROMPTLY AND INTERVENTION INITIATED QUICKLY TO MINIMIZE ASSOCIATED RISKS Goal Provider Goal - CHANGE IN GENERAL HEALTH STATUS WILL BE IDENTIFIED AND REPORTED TO PHYSICIAN FOR PROMPT INTERVENTION TO MINIMIZE ASSOCIATED RISKS THROUGHOUT CERTIFICATION PERIOD. Goal Provider Goal - PATIENT WILL COMPLY WITH MEDICATION WHEN SKILLED NURSE PRE-POURS MEDICATION. Goal Provider Goal - PATIENT WILL BE ABLE TO PERFORM DAILY FUNCTIONS AND HAVE OPTIMAL IMPROVEMENT IN LEVEL OF ANXIETY Goal Provider Goal - PATIENT WILL BE ABLE TO PERFORM DAILY FUNCTIONS AND HAVE OPTIMAL IMPROVEMENT IN THOUGHT PROCESS Goal Provider Goal - PATIENT/CAREGIVER WILL VERBALIZE UNDERSTANDING OF EDUCATION PROVIDED ON MEDICATIONS BY THE END OF THE CERTIFICATION PERIOD. Goal Provider Goal - CHANGES IN LOWER EXTREMITIES WILL BE IDENTIFIED AND REPORTED TO MD FOR PROMPT INTERVENTION TO PREVENT ASSOCIATED RISKS THROUGHOUT THE CERTIFICATION PERIOD. PATIENT/CAREGIVER WILL VERBALIZE UNDERSTANDING OF PROPER DIABETIC SKIN/FOOT CARE BY THE END OF THE CERTIFICATION PERIOD. Goal Provider Goal - INCREASED PAIN OR INEFFECTIVE PAIN CONTROL MEASURES WILL BE IDENTIFIED AND PROMPTLY REPORTED TO PHYSICIAN THROUGHOUT THE CERTIFICATION PERIOD. Goal Provider Goal - PATIENT/CAREGIVER DEMONSTRATES UNDERSTANDING OF FALL PREVENTION MEASURES BY THE END OF THE CERTIFICATION PERIOD. Goal Provider Goal - PATIENT WILL REMAIN SAFE WITHOUT DECOMPENSATION IN DEPRESSIVE CONDITION. PATIENTS MOOD AND MENTAL STATUS WILL EVIDENCE OPTIMAL LEVEL OF FUNCTIONING. Reason for Visit INDEPENDENT WITH USE OF ASSISTIVE DEVICE Encounters Start Date/Time End Date/Time Encounter Type Admission Type Attending [facility] Care Department Encounter ID Discharge Date Discharge Status Discharge Condition Discharge Reason Percent Goals Met 2022-01-27 00:00:00 2022-10-14 00:00:00 Outpatient RECERTIFIC ATION JAYDON CASTRO [facility] [id number] 00:00:00 DISCHARGED /TRANSFERR ED TO ANOTHER TYPE OF HEALTH CARE INSTITUTIO N NOT DEFINED ELSEWHERE IN THIS CODE LIST INDEPENDEN T WITH USE OF ASSISTIVE DEVICE PER CLIENT REQUEST 100.00
--- OUTSIDE RECORDS SUMMARY | 2024-03-27 11:30 | XMS_ITS | Data Portability ---
Author Organization [place] - [facility] Address [address] [place] [id number] Care Team Providers Care New Grad Rn Name Role Phone KYRA MENG Primary Care Provider [phone] Assessment Encounter Date Assessment Date Assessment LastModified by Organization Details LastModified Time 11/09/2020 11/09/2020 Overview/History : 60 y/o F with PMHx sig for asthma, NIDDM, seizure d/o, and schizoaffective d/o, new to , who presents w/ c/o ankle pain. Patient states pain has been ongoing for several months ever since a fall she had last January. Her left knee was evaluated at that time but never the ankle. She describes the pain as sharp and intermittent. Pain was 8/10 this morning. Took Tylenol 750 mg with good relief. Home health aide applied compression wrap that also relieved the pain. Initially patient stated pain was 7/10 now at the heel, but on exam she reports pain was actually above the lateral malleolus, and that there is no pain currently and appears confused. Has chronic tingling of the b/l feet likely due to diabetic peripheral neuropathy. No recent injuries. Patient ambulating with cane without difficulty. Exam: afebrile, RRR, normotensive, normal resps, O2 sat 95% on RA, non-toxic, well appearing. GENERAL: well developed, well nourished, appears stated age, sitting comfortably in no acute distress. RESP: normal I:E, breathing non-labored, no accessory muscle use, clear to auscultation bilaterally, no wheezes, rhonchi, or rales. CARDIO: RRR, normal S1, S2, no murmurs, rubs, or gallops, PT/AT/DP pulses 2+ bilaterally. MUSK: right knee, ankle, calcaneus, achilles, forefoot, and phalanges non-tender without bony deformity, with normal strength, full active and passive ROM without crepitus, muscle tone, no atrophy. EXTREMITIES: warm, well perfused, trace pitting edema of the b/l LE, calves soft, nontender, no palpable cord, no cyanosis, swelling or rashes. NEURO: awake, alert, oriented x3, no focal neuro deficits, moving all extremities spontaneously, normal gait with cane. SKIN: intact, good turgor, no cyanosis, pallor, ecchymosis, rash, lesions, abrasions, or lacerations. PSYCH: pleasant, flat affect, appropriate mood and affect. DDx considered, but not limited to: degenerative joint disease - possible given advanced age and h/o injury tendinitis - unlikely, ATFL and achilles tendons nontender ankle sprain - unlikely, no recent injury, no swelling or ecchymosis fracture - unlikely, no recent injury, no ecchymosis heel spur - possible, but no tenderness over the bony prominences DVT - no unilateral calf swelling or tenderness, negative maritza's sign, no skin changes Work up/Results: right ankle XR pending. Plan/Discussion: -probable degenerative joint disease, vitals and exam re-assuring -Rest, ice 15 minutes 3x/day, MITCHEL wrap applied, elevation -will check XR to assess for bone spur, DJD, will call with results when available -can Take Tylenol 1000 mg TID PRN pain -OK to ambulate with cane as tolerated -Consider PT for strengthening exercises [facility]. We cannot always find the exact cause of your symptoms during your initial visit. Please follow up with your primary care provider or specialist to be rechecked or seek medical attention if your symptoms do not go away or get worse. If you develop any new or worsening symptoms and need after hours care, please go to nearest ER and/or call 911. If you have additional concerns or develop a change in your condition between 8am-10pm, please call [facility] at [phone] to help navigate your care. In order to obtain further information and compare any laboratory results/values, I have accessed patient records on the [employer]. This information was pertinent in my medical decision making today. patrick Not available 11/09/2020 18:51:19 10/30/2021 10/30/2021 Overview/History : 61 yo f with a PMH of asthma, skin CA, depression, DM, HTN, hypothyroidism, anxiety, SZ disorder, schizoaffective, overactive bladder presents for a cyst she noted to her left inner thigh and VNA nurse thought she should have it looked at. There is no pain, redness or drainage. But she has noted an odor and oozing to her groin. Exam: General Appearance: non-toxic, well appearing, in no acute distress Head: normocephalic, atraumatic Pulmonary: normal effort, no respiratory distress, no tachypnea, no accessory muscle use, lungs sound clear to auscultation bilaterally Cardiovascular: RRR, normal S1, normal S2, no murmurs, no rubs, no gallops, peripheral edema bilateral 1+ Musculoskeletal : moves all extremities normally, no deformity, no joint effusion, no extremity swelling Psychologic: normal mood, normal affect, normal insight, normal cognition, normal recent memory, normal remote memory Skin: erythema to bilateral groin fold and abdominal folds. some tenderness. There is also a 2cm irregularly shaped cyst that is firm movable but not fluctant. There is no inflammation, no redness and not painful when examined Vital Signs: T 98.6 HR 81 BP 140/70 RR 18 SpO2 95% at RA DDx considered, but not limited to:abscess, cellulitis, cyst, intertrigo, harjeet tinea cruris This is a 61 yo f who is morbidly obese presents with complaints of a cyst to her inner left thigh. She has no pain, swelling to the surrounding tissue, it is 2cm irregularly shaped, firm and non-fluctant on palpation. it is not apparent when looking at the thigh and can only be palpated. It is movable under the skin. Low concern for an abscess as she noted this about 1 month ago and there has been no change to the size. During exam of the cyst of her thigh noted she has redness to the inner groin and abdominal fold. She has nystatin powder for harjeet infection but has not been compliant with it. Work up/Results: none Plan/Discussion: Advised patient to apply nystatin powder to the groin and abdominal fold as directed. The patient is advised to make an appt with PCP in 3-5 days to discuss ongoing symptoms/ further management. The patient is also advised to go to the ED immediately for any worsening symptoms. The patient understood and agreed with this plan. The patient was given discharge instructions and all questions were answered prior to DH team departure. Proper Personal Protective Equipment (PPE), including gloves, eye protection and masks were donned and doffed appropriately and all equipment cleaned using approved technique with germicidal disposable wipes prior to and after care of this patient according to [facility]'s infection prevention protocols. [email or web address] Not available 10/31/2021 12:47:02 Plan of Treatment Reminders Order Date Submit Date Provider Last Modified By Organization Details Last Modified Time Details Appointments None record ed. Lab None record ed. Referral None record ed. Procedures None record ed. Surgeries None record ed. Imaging XR, ankle, 3 or more view 021 11/10/19 21 [facility] ([facility]), [address] [place] [address], [id number], 09:36:15 Medication Orders None record ed. Patient TargetsNo targets recorded. Patient InstructionsNo instructions recorded. Reason for Referral None Reported. Results Created Date Observation Date Name Description Value Unit Range Abnormal Flag Note LastModifiedBy Organization Detail LastModifiedTime 11/12/19 21 XR, ankle , 3 or more view No observ ation record ed. [facility] ([facility]) [address] [place], [address], 11/11/2020 18:02:55 Result Notes None recorded. Problems Name Problem SNOMED Code Status Onset Date Resolution Date Notes Provider Name and Address Organization Details Recorded Time Diabetes mellitus 43650657 Active 021 TOYA CHURCH [address] [place], [address], [place] - [facility] 18:07:45 Problem Notes None recorded. Procedures Surgical History None recorded. Imaging Results Imaging Date Name Status LastModified by Organiz ation Details LastModified Time 11/11/2020 XR, ankle, 3 or more view completed [address] Corporate Office ([facility]) [address] [place], [address], 11/11/2020 18:02:55 Procedure Notes None recorded. Medical Equipment None Reported. Allergies Allergen ID Allergen Name Allergen Category Reaction Reaction Severity Criticality Documentation Date Start Date Code Code System Note Provider Name and Address Organization Details Recorded Time 21280722 Trileptal medicatio n Not available Not available Not available 11/09/2020 16868 0 RxNorm TOYA CHURCH [address] [place], [address], [place] [facility] 18:07:25 Medications Name Sig Start Date Stop Date Status Note LastModified by Organization Details LastModified Time senna tablets TAKE 2 TABLETS BY MOUTH AT BEDTIME NEEDED FOR CONSTIPAT ION 10/30 completed Not Available Not Available Not Available senna tab 8.6mg active Not Available Not Available Not Available amoxicillin 500 mg capsule TAKE 1 CAPSULE BY MOUTH TWICE DAILY UNTIL GONE 11/09 completed Not Available Not Available Not Available fluconazole 100 mg tablet TAKE 1 TABLET BY MOUTH DAILY FOR 14 DAYS 10/30 completed Not Available Not Available Not Available metformin 500 mg tablet TK 1 T PO BID 10/30 completed Not Available Not Available Not Available clonidine HCl 0.1 mg tablet TK 2 TS PO QHS 10/30 completed Not Available Not Available Not Available benztropine 0.5 mg tablet TAKE 1 TABLET BY MOUTH DAILY AT BEDTIME 10/30 completed Not Available Not Available Not Available levetiracet am 500 mg tablet TK 4 TS PO BID 10/30 completed Not Available Not Available Not Available Nystop 100,000 unit/gram topical powder APPLY TOPICALLY TO THE AFFECTED SKIN TWICE DAILY active Not Available Not Available No t Available fluconazole 200 mg tablet TAKE 1 TABLET BY MOUTH TODAY AND REPEAT IN 3 DAYS 10/30 completed Not Available Not Available Not Available FreeStyle Lancets 28 gauge USE TO TEST BLOOD SUGAR ONCE DAILY active Not Available Not Available No t Available Milk of Magnesia 400 mg/5 mL oral suspension SHAKE LQ AND TK 60 ML PO D HS PRF CONSTIPAT ION 10/30 completed Not Available Not Available Not Available hydroxyzine HCl 50 mg tablet TAKE 2 TABLETS BY MOUTH DAILY AT BEDTIME 10/30 completed Not Available Not Available Not Available Zeasorb AF 2 % topical powder APPLY TOPICALLY TO THE AFFECTED AREA TWICE DAILY FOR 14 DAYS 10/30 completed Not Available Not Available Not Available peg-electro lyte solution 420 gram oral solution active Not Available Not Available Not Available lamotrigine 25 mg tablet TAKE 3 TABLETS BY MOUTH DAILY AT BEDTIME 10/30 completed Not Available Not Available Not Available levothyroxi ne 100 mcg tablet TAKE 1 TABLET BY MOUTH DAILY active Not Available Not Available No t Available meclizine 25 mg tablet TAKE 1 TABLET BY MOUTH THREE TIMES DAILY NEEDED FOR DIZZINESS 10/30 completed Not Available Not Available Not Available glipizide ER 2.5 mg tablet, extended release 24 hr TAKE 1 TABLET BY MOUTH DAILY 10/30 completed Not Available Not Available Not Available cephalexin 500 mg capsule TK 1 C PO QID FOR 10 DAYS 11/09 completed Not Available Not Available Not Available metformin 1,000 mg tablet TAKE 1 TABLET BY MOUTH TWICE DAILY active Not Available Not Available No t Available clotrimazol e-betametha sone 1 %-0.05 % topical cream APPLY TOPICALLY TO THE AFFECTED AREA TWICE DAILY FOR 14 DAYS 10/30 completed Not Available Not Available Not Available benztropine 1 mg tablet TAKE 1 TABLET BY MOUTH TWICE DAILY active Not Available Not Available No t Available docusate sodium 100 mg capsule TAKE 1 CAPSULE BY MOUTH TWICE DAILY NEEDED FOR CONSTIPAT ION active Not Available Not Available No t Available montelukast 10 mg tablet TAKE 1 TABLET BY MOUTH DAILY AT BEDTIME active Not Available Not Available No t Available hydroxyzine HCl 25 mg tablet TAKE 2 TABLETS BY MOUTH DAILY AT BEDTIME active Not Available Not Available No t Available olanzapine 15 mg tablet TAKE 2 TABLETS BY MOUTH DAILY active Not Available Not Available No t Available lisinopril 5 mg tablet TAKE 1 TABLET BY MOUTH DAILY active Not Available Not Available No t Available albuterol sulfate HFA 90 mcg/actuati on aerosol inhaler INHALE 1 PUFF FOUR TIMES DAILY NEEDED FOR WHEEZING OR SHORTNESS OF BREATH active Not Available Not Available No t Available topiramate 100 mg tablet active Not Available Not Available Not Available clotrimazol e 1 % topical cream APPLY A SMALL AMOUNT TOPICALLY TO THE AFFECTED AREA TWICE DAILY 10/30 completed Not Available Not Available Not Available lamotrigine 100 mg tablet TAKE 1 TABLET BY MOUTH DAILY active Not Available Not Available No t Available Vitamin B-12 1,000 mcg tablet TAKE 1 TABLET BY MOUTH ONCE DAILY active Not Available Not Available No t Available topiramate 50 mg tablet TK 1 T PO BID active Not Available Not Available No t Available trospium 20 mg tablet TK 1 T PO BID 11/09 completed Not Available Not Available Not Available senna active Not Available Not Availa ble Not Available levetiracet am 1,000 mg tablet TAKE 2 TABLETS BY MOUTH TWICE DAILY active Not Available Not Available No t Available FreeStyle Lite Meter kit USE TO TEST BLOOD SUGAR DIRECTED active Not Available Not Available No t Available FreeStyle Lite Strips USE TO CHECK BLOOD SUGAR THREE TIMES DAILY active Not Available Not Available No t Available melatonin 5 mg tablet TAKE 1 TABLET BY MOUTH EVERY NIGHT AT BEDTIME NEEDED FOR INSOMNIA 10/30 completed Not Available Not Available Not Available Dulera 200 mcg-5 mcg/actuati on HFA aerosol inhaler INHALE 2 PUFFS TWICE DAILY active Not Available Not Available No t Available Vitamin D3 50 mcg (2,000 unit) capsule TAKE 1 CAPSULE BY MOUTH DAILY active Not Available Not Available No t Available clobazam 10 mg tablet active Not Available Not Available No t Available Combivent Respimat 20 mcg-100 mcg/actuati on solution for inhalation active Not Available Not Available N ot Available Myrbetriq 50 mg tablet,exte nded release TAKE 1 TABLET BY MOUTH EVERY DAY 10/30 completed Not Available Not Available Not Available Melissa-uriah 8.6 mg tablet TAKE 2 TABLETS BY MOUTH EVERY NIGHT AT BEDTIME NEEDED FOR CONSTIPAT ION active Not Available Not Available No t Available Vitals Date Recorded Oxygen saturation Oxygen saturation in Arterial blood by Pulse oximetry Body temperature Respiratory rate Heart rate Systolic blood pressure Diastolic blood pressure Provider Name and Address Organization Details Last Updated DateTime 1 95 % 95 % 98.7 [degF] 20 /min 77 /min 110 mm[Hg] 76 mm[Hg] Not Available [facility] 1 18:14:25 Date Recorded Heart rate Oxygen saturation Oxygen saturation in Arterial blood by Pulse oximetry Respiratory rate Body temperature Systolic blood pressure Diastolic blood pressure Provider Name and Address Organization Details Last Updated DateTime 2 81 /min 95 % 95 % 18 /min 98.6 [degF] 140 mm[Hg] 70 mm[Hg] Not Available [facility] 16:03:57 Social History Question Answer Notes LastModified by Organizat ion Details LastModified Time Tobacco Smoking Status Never Smoker TOYA CHURCH [address] [facility] [place], [address], [place] - [facility] 11/09/2020 18:14:10 What Is Your Level Of Alcohol Consumption? None [email or web address] Information not available 11/09/2020 Excessive Alcohol Or Drug Use No [email or web address] Information not available 11/09/2020 Does This Patient Have A PCP? Yes Information not available 11/09/2020 Do You Use Any Illicit Or Recreational Drugs? No Information not available 11/09/2020 Sex: Unknown Functional Status None recorded. Mental Status None recorded. Family History Relationship Description Onset Age of this Age Resolved Age Notes LastModified by Organization Details LastModified Time Mother Diabetes mellitus patrick Not available 2020 18:14:26 Mother Hypertensive disorder [email or web address] Not available 2020 18:14:32 Mother Malignant neoplastic disease colon CA [email or web address] Not available 11/09/2020 18:14:45 Medical History Condition Response Coronary Artery Disease N COPD N Depression Y Hypothyroidism Y Diabetes Y Cancer Y Stroke N Asthma Y High Cholesterol N Pulmonary Embolism N Hypertension Y Kidney Disease N Gynecological HistoryNo gynecological history recorded. Obstetrics History GPAL:G 0 P 0 0 0 0 Past Encounters Encounter ID Performer Location Encounter Start Date Encounter Closed Date Diagnosis/Indication Diagnosis SNOMED-CT Code Diagnosis ICD10 Code [id number] TOYA CHURCH [facility] [address] [place] [address] 11/09/2020 18:06:27 11/14/2020 11:24:14 Degenerative joint disease of ankle AND/OR foot 94344177 M19.079 Pain of ri ght ankle joint 3552289313 8773772 M25.571 [id number] Anat White NP [facility] [address] [place] [address] 10/30/2021 15:53:33 11/01/2021 12:01:11 Candidal intertrigo 444490104 B37.2 Cyst of skin 317506667 L 72.9 Health Concerns Section Related Observation LastModified by Organization Detai ls LastModified Time None Recorded Concern Status LastModified by Organization Details LastModified Time None Recorded Advance Directives Directive None Recorded Payers Encounter Date Sequence Insurance Name Policy Number Policy Palomo Covered Member ID Palomo Member ID Guarantor Name 11/09/2020 1 [facility] - DOS PRIOR TO 2022 - DUAL ELIGIBLE (MEDICARE REPLACEMENT/ADV ANTAGE - HMO) Lashanda Marilyn [id number] Lashanda Marilyn 10/30/2021 1 [facility] - DOS PRIOR TO 2022 - DUAL ELIGIBLE (MEDICARE REPLACEMENT/ADV ANTAGE - HMO) Lashanda Marilyn [id number] Lashanda Marilyn 10/30/2021 2 [place]IC[place]: [employer] Lashanda Marilyn [id number] Lashanda Sanders Notes Date Note Type Note Provider Name and Address Organization Details Recorded Time 11/09/2020 text/html 60 y/o F with PM Hx sig for asthma, NIDDM, seizure d/o, and schizoaffective d/o, new to , who presents w/ c/o ankle pain. Patient states pain has been ongoing for several months ever since a fall she had last January. Her left knee was evaluated at that time but never the ankle. She describes the pain as sharp and intermittent. Pain was 8/10 this morning. Took Tylenol 750 mg with good relief. Home health aide applied compression wrap that also relieved the pain. Initially patient stated pain was 7/10 now at the heel, but on exam she reports pain was actually above the lateral malleolus, and that there is no pain currently and appears confused. Has chronic tingling of the b/l feet likely due to diabetic peripheral neuropathy. No recent injuries. Patient ambulating with cane without difficulty. TOYA CHURCH [address], [place], [address], [place] [facility] 11/09/2020 18:51:42 10/30/2021 text/html 61 yo f with a P MH of asthma, skin CA, depression, DM, HTN, hypothyroidism, anxiety, SZ disorder, schizoaffective, overactive bladder presents for a cyst she noted to her left inner thigh and [facility]NA nurse thought she should have it looked at. There is no pain, redness or drainage. But she has noted an odor and oozing to her groin. Anat White NP [address], [place], [address], [place] - [facility] 10/31/2021 12:48:05 OBGyn Episode No OBEpisode recorded.
--- OUTSIDE RECORDS SUMMARY | 2024-03-27 11:30 | XMS_ITS | Clinical Summary ---
Author Organization Unknown Care Team Providers Care Meat Grading Machine Operator Name Role Phone HARVINDER SEGOVIA, ALEXIS Unavailable Unavailable CARLTON OTVALENTÍN Unavailable Valeriano CASTRO RN, JAYDON Unavailable Valeriano DELANEY PT, TERESITA Unavailable Unavailable Payers Payer Name Policy Type Policy Number Effective Date Expira tion Date [facility] [id number] [place] [id number] MEDICARE - [facility] [facility] [id number] Problems Condition Name Condition Details Condition Category [...] 12-24 00:00: 00 11-11 23:59 :00 No [id number] Per instruc tions INTO THE LUNGS FOUR TIMES DAILY Per instructio ns INTO THE LUNGS FOUR TIMES DAILY (route: inhalation ) Med Classific ation: Respirato ry Therapy Agents Vitamin B-12 1,000 mcg tablet 12-24 00:00: 00 05-12 23:59 :00 No [id number] Unavailable 1 tablet ONCE DAILY 1 tablet ONCE DAILY (route: oral) Med Classific ation: Electroly te Balance-N utritiona l Products Vitamin D3 50 mcg (2,000 unit) capsule 12-24 00:00: 00 05-12 23:59 :00 No [id number] 1 capsule DAILY 1 capsule DAILY (route: oral) Med Classific ation: Electroly te Balance-N utritiona l Products topiramate 100 mg tablet 12-21 00:00: 00 05-12 23:59 :00 No [id number] Unavailable 1 tablet 2 TIMES DAILY 1 tablet 2 TIMES DAILY (route: oral) Med Classific ation: Central Nervous System Agents Myrbetriq 50 mg tablet,exte nded release 12-18 00:00: 00 01-27 23:59 :00 No [id number] Unavailable Per instruc tions ONCE DAILY Per instructio ns ONCE DAILY (route: oral) Med Classific ation: Genitouri nary Therapy clobazam 10 mg tablet 12-16 00:00: 00 11-11 23:59 :00 No [id number] Unavailable 1 tablet BEDTIME 1 tablet BEDTIME (route: oral) Med Classific ation: Central Nervous System Agents senna 8.6 mg tablet 12-13 00:00: 00 11-11 23:59 :00 No [id number] 2 tablet AT BEDTIME NEEDED 2 tablet AT BEDTIME NEEDED (route: oral) Med Classific ation: Gastroint estinal Therapy Agents benztropine 1 mg tablet 2021-04 00:00: 00 05-12 23:59 :00 No [id number] 1 tablet 2 TIMES DAILY 1 tablet 2 TIMES DAILY (route: oral) Med Classific ation: Central Nervous System Agents Diflucan 150 mg tablet 2021-04 00:00: 00 02-09 23:59 :00 No [id number] 1 tablet DAILY 1 tablet DAILY (route: oral) Med Classific ation: Anti-Infe ctive Agents hydroxyzine HCl 50 mg tablet 2021-04 00:00: 00 03-14 23:59 :00 No [id number] 1 tablet BEDTIME 1 tablet BEDTIME (route: oral) Med Classific ation: Central Nervous System Agents levetiracet am 1,000 mg tablet 2021-04 00:00: 00 11-11 23:59 :00 No [id number] 2 tablet 2 TIMES DAILY 2 tablet 2 TIMES DAILY (route: oral) Med Classific ation: Central Nervous System Agents Levoxyl 100 mcg tablet 2021-04 00:00: 00 11-11 23:59 :00 No [id number] 1 tablet DAILY 1 tablet DAILY (route: oral) Med Classific ation: Endocrine metformin 1,000 mg tablet 2021-04 00:00: 00 11-11 23:59 :00 No [id number] 1 tablet 2 TIMES DAILY 1 tablet 2 TIMES DAILY (route: oral) Med Classific ation: Endocrine montelukast 10 mg tablet 2021-04 00:00: 00 11-11 23:59 :00 No [id number] 1 tablet BEDTIME 1 tablet BEDTIME (route: oral) Med Classific ation: Respirato ry Therapy Agents nystatin 100,000 unit/gram topical powder 2021-04 00:00: 00 05-12 23:59 :00 No [id number] Per instruc tions DIRECTED Per instructio ns DIRECTED (route: topical) Med Classific ation: Dermatolo gical olanzapine 10 mg tablet 2021-04 00:00: 00 05-12 23:59 :00 No [id number] 1 tablet BEDTIME 1 tablet BEDTIME (route: oral) Med Classific ation: Central Nervous System Agents olanzapine 15 mg tablet 2021-04 00:00: 00 05-12 23:59 :00 No [id number] 1 tablet EVERY AM 1 tablet EVERY AM (route: oral) Med Classific ation: Central Nervous System Agents propranolol 10 mg tablet 2021-04 00:00: 00 11-11 23:59 :00 No [id number] 1 tablet 2 TIMES DAILY 1 tablet 2 TIMES DAILY (route: oral) Med Classific ation: Cardiovas cular Therapy Agents Topamax 50 mg tablet 2021-04 00:00: 00 05-12 23:59 :00 No [id number] 1 tablet 2 TIMES DAILY 1 tablet 2 TIMES DAILY (route: oral) Med Classific ation: Central Nervous System Agents hydroxyzine pamoate 100 mg capsule 2021-04 00:00: 00 11-11 23:59 :00 No [id number] 1 capsule BEDTIME 1 capsule BEDTIME (route: oral) Med Classific ation: Central Nervous System Agents trazodone 50 mg tablet 04-19 00:00: 00 05-12 23:59 :00 No [id number] 50 mg BEDTIME 50 mg BEDTIME (route: oral) Med Classific ation: Central Nervous System Agents albuterol sulfate HFA 90 mcg/actuati on aerosol inhaler 05-12 00:00: 00 11-11 23:59 :00 No [id number] 1 puff 4 TIMES DAILY 1 puff 4 TIMES DAILY (route: inhalation ) Med Classific ation: Respirato ry Therapy Agents gabapentin 100 mg capsule 05-12 00:00: 00 11-11 23:59 :00 No [id number] 1 capsule 3 TIMES DAILY 1 capsule 3 TIMES DAILY (route: oral) Med Classific ation: Central Nervous System Agents glipizide ER 2.5 mg tablet, extended release 24 hr 05-12 00:00: 00 11-11 23:59 :00 No [id number] 1 tablet DAILY 1 tablet DAILY (route: oral) Med Classific ation: Endocrine lamotrigine 25 mg tablet 05-12 00:00: 00 11-11 23:59 :00 No [id number] 3 tablet DAILY 3 tablet DAILY (route: oral) Med Classific ation: Central Nervous System Agents lorazepam 0.5 mg tablet 05-12 00:00: 00 11-11 23:59 :00 No [id number] 1 tablet 2 TIMES DAILY 1 tablet 2 TIMES DAILY (route: oral) Med Classific ation: Central Nervous System Agents olanzapine 20 mg tablet 05-12 00:00: 00 11-11 23:59 :00 No [id number] 1 tablet DAILY 1 tablet DAILY (route: oral) Med Classific ation: Central Nervous System Agents olanzapine 5 mg disintegrat ing tablet 05-12 00:00: 00 11-11 23:59 :00 No [id number] 1 tablet 2 TIMES DAILY 1 tablet 2 TIMES DAILY (route: oral) Med Classific ation: Central Nervous System Agents topiramate 100 mg tablet 05-12 00:00: 00 11-11 23:59 :00 No [id number] 1 tablet 2 TIMES DAILY 1 tablet 2 TIMES DAILY (route: oral) Med Classific ation: Central Nervous System Agents trazodone 50 mg tablet 05-12 00:00: 00 11-11 23:59 :00 No [id number] 0.5 tablet BEDTIME 0.5 tablet BEDTIME (route: oral) Med Classific ation: Central Nervous System Agents trazodone 50 mg tablet 05-12 00:00: 00 11-11 23:59 :00 No [id number] 0.5 tablet BEDTIME 0.5 tablet BEDTIME (route: oral) Med Classific ation: Central Nervous System Agents lisinopril 5 mg tablet 05-12 00:00: 00 11-11 23:59 :00 No [id number] 1 tablet DAILY 1 tablet DAILY (route: oral) Med Classific ation: Cardiovas cular Therapy Agents Myrbetriq 50 mg tablet,exte nded release 2-10 00:00: 00 11-11 23:59 :00 No [id number] 1 tablet BEDTIME 1 tablet BEDTIME (route: [...] CARE WILL BE ESTABLISHED THAT MEETS PATIENT'S INTERMEDIATE NEEDS AND INCLUDES PATIENT GOAL FOR HOME [...] End Date/Time Encounter Type Admission Type Attending [facility] Care Department Encounter ID Discharge Date Discharge Status Discharge Condition Discharge Reason Percent Goals Met 2022-01-27 00:00:00 2022-10-14 00:00:00 Outpatient RECERTIFIC ATION JAYDON CASTRO [facility] [id number] 00:00:00 DISCHARGED /TRANSFERR ED TO ANOTHER TYPE OF HEALTH CARE INSTITUTIO N NOT DEFINED ELSEWHERE IN THIS CODE LIST INDEPENDEN T WITH USE OF ASSISTIVE DEVICE PER CLIENT REQUEST 100.00
--- OUTSIDE RECORDS SUMMARY | 2024-03-27 11:30 | XMS_ITS | Clinical Summary ---
Author Organization Unknown Care Team Providers Care Aluminum Pourer Name Role Phone HARVINDER SEGOVIA, ALEXIS Unavailable Unavailable CARLTON OTVALENTÍN Unavailable Valeriano CASTRO RN, JAYDON Unavailable Valeriano DELANEY PT, TERESITA Unavailable Unavailable Payers Payer Name Policy Type Policy Number Effective Date Expira tion Date [facility] [id number] [place] [id number] MEDICARE - [facility] [id number] Problems Condition Name Condition Details Condition Category [...] 12-24 00:00: 00 11-11 23:59 :00 No [id number] Per instruc tions INTO THE LUNGS FOUR TIMES DAILY Per instructio ns INTO THE LUNGS FOUR TIMES DAILY (route: inhalation ) Med Classific ation: Respirato ry Therapy Agents Vitamin B-12 1,000 mcg tablet 12-24 00:00: 00 05-12 23:59 :00 No [id number] Unavailable 1 tablet ONCE DAILY 1 tablet ONCE DAILY (route: oral) Med Classific ation: Electroly te Balance-N utritiona l Products Vitamin D3 50 mcg (2,000 unit) capsule 12-24 00:00: 00 05-12 23:59 :00 No [id number] 1 capsule DAILY 1 capsule DAILY (route: oral) Med Classific ation: Electroly te Balance-N utritiona l Products topiramate 100 mg tablet 12-21 00:00: 00 05-12 23:59 :00 No [id number] Unavailable 1 tablet 2 TIMES DAILY 1 tablet 2 TIMES DAILY (route: oral) Med Classific ation: Central Nervous System Agents Myrbetriq 50 mg tablet,exte nded release 12-18 00:00: 00 01-27 23:59 :00 No [id number] Unavailable Per instruc tions ONCE DAILY Per instructio ns ONCE DAILY (route: oral) Med Classific ation: Genitouri nary Therapy clobazam 10 mg tablet 12-16 00:00: 00 11-11 23:59 :00 No [id number] Unavailable 1 tablet BEDTIME 1 tablet BEDTIME (route: oral) Med Classific ation: Central Nervous System Agents senna 8.6 mg tablet 12-13 00:00: 00 11-11 23:59 :00 No [id number] 2 tablet AT BEDTIME NEEDED 2 tablet AT BEDTIME NEEDED (route: oral) Med Classific ation: Gastroint estinal Therapy Agents benztropine 1 mg tablet 2021-04 00:00: 00 05-12 23:59 :00 No [id number] 1 tablet 2 TIMES DAILY 1 tablet 2 TIMES DAILY (route: oral) Med Classific ation: Central Nervous System Agents Diflucan 150 mg tablet 2021-04 00:00: 00 02-09 23:59 :00 No [id number] 1 tablet DAILY 1 tablet DAILY (route: oral) Med Classific ation: Anti-Infe ctive Agents hydroxyzine HCl 50 mg tablet 2021-04 00:00: 00 03-14 23:59 :00 No [id number] 1 tablet BEDTIME 1 tablet BEDTIME (route: oral) Med Classific ation: Central Nervous System Agents levetiracet am 1,000 mg tablet 2021-04 00:00: 00 11-11 23:59 :00 No [id number] 2 tablet 2 TIMES DAILY 2 tablet 2 TIMES DAILY (route: oral) Med Classific ation: Central Nervous System Agents Levoxyl 100 mcg tablet 2021-04 00:00: 00 11-11 23:59 :00 No [id number] 1 tablet DAILY 1 tablet DAILY (route: oral) Med Classific ation: Endocrine metformin 1,000 mg tablet 2021-04 00:00: 00 11-11 23:59 :00 No [id number] 1 tablet 2 TIMES DAILY 1 tablet 2 TIMES DAILY (route: oral) Med Classific ation: Endocrine montelukast 10 mg tablet 2021-04 00:00: 00 11-11 23:59 :00 No [id number] 1 tablet BEDTIME 1 tablet BEDTIME (route: oral) Med Classific ation: Respirato ry Therapy Agents nystatin 100,000 unit/gram topical powder 2021-04 00:00: 00 05-12 23:59 :00 No [id number] Per instruc tions DIRECTED Per instructio ns DIRECTED (route: topical) Med Classific ation: Dermatolo gical olanzapine 10 mg tablet 2021-04 00:00: 00 05-12 23:59 :00 No [id number] 1 tablet BEDTIME 1 tablet BEDTIME (route: oral) Med Classific ation: Central Nervous System Agents olanzapine 15 mg tablet 2021-04 00:00: 00 05-12 23:59 :00 No [id number] 1 tablet EVERY AM 1 tablet EVERY AM (route: oral) Med Classific ation: Central Nervous System Agents propranolol 10 mg tablet 2021-04 00:00: 00 11-11 23:59 :00 No [id number] 1 tablet 2 TIMES DAILY 1 tablet 2 TIMES DAILY (route: oral) Med Classific ation: Cardiovas cular Therapy Agents Topamax 50 mg tablet 2021-04 00:00: 00 05-12 23:59 :00 No [id number] 1 tablet 2 TIMES DAILY 1 tablet 2 TIMES DAILY (route: oral) Med Classific ation: Central Nervous System Agents hydroxyzine pamoate 100 mg capsule 2021-04 00:00: 00 11-11 23:59 :00 No [id number] 1 capsule BEDTIME 1 capsule BEDTIME (route: oral) Med Classific ation: Central Nervous System Agents trazodone 50 mg tablet 04-19 00:00: 00 05-12 23:59 :00 No [id number] 50 mg BEDTIME 50 mg BEDTIME (route: oral) Med Classific ation: Central Nervous System Agents albuterol sulfate HFA 90 mcg/actuati on aerosol inhaler 05-12 00:00: 00 11-11 23:59 :00 No [id number] 1 puff 4 TIMES DAILY 1 puff 4 TIMES DAILY (route: inhalation ) Med Classific ation: Respirato ry Therapy Agents gabapentin 100 mg capsule 05-12 00:00: 00 11-11 23:59 :00 No [id number] 1 capsule 3 TIMES DAILY 1 capsule 3 TIMES DAILY (route: oral) Med Classific ation: Central Nervous System Agents glipizide ER 2.5 mg tablet, extended release 24 hr 05-12 00:00: 00 11-11 23:59 :00 No [id number] 1 tablet DAILY 1 tablet DAILY (route: oral) Med Classific ation: Endocrine lamotrigine 25 mg tablet 05-12 00:00: 00 11-11 23:59 :00 No [id number] 3 tablet DAILY 3 tablet DAILY (route: oral) Med Classific ation: Central Nervous System Agents lorazepam 0.5 mg tablet 05-12 00:00: 00 11-11 23:59 :00 No [id number] 1 tablet 2 TIMES DAILY 1 tablet 2 TIMES DAILY (route: oral) Med Classific ation: Central Nervous System Agents olanzapine 20 mg tablet 05-12 00:00: 00 11-11 23:59 :00 No [id number] 1 tablet DAILY 1 tablet DAILY (route: oral) Med Classific ation: Central Nervous System Agents olanzapine 5 mg disintegrat ing tablet 05-12 00:00: 00 11-11 23:59 :00 No [id number] 1 tablet 2 TIMES DAILY 1 tablet 2 TIMES DAILY (route: oral) Med Classific ation: Central Nervous System Agents topiramate 100 mg tablet 05-12 00:00: 00 11-11 23:59 :00 No [id number] 1 tablet 2 TIMES DAILY 1 tablet 2 TIMES DAILY (route: oral) Med Classific ation: Central Nervous System Agents trazodone 50 mg tablet 05-12 00:00: 00 11-11 23:59 :00 No [id number] 0.5 tablet BEDTIME 0.5 tablet BEDTIME (route: oral) Med Classific ation: Central Nervous System Agents trazodone 50 mg tablet 05-12 00:00: 00 11-11 23:59 :00 No [id number] 0.5 tablet BEDTIME 0.5 tablet BEDTIME (route: oral) Med Classific ation: Central Nervous System Agents lisinopril 5 mg tablet 05-12 00:00: 00 11-11 23:59 :00 No [id number] 1 tablet DAILY 1 tablet DAILY (route: oral) Med Classific ation: Cardiovas cular Therapy Agents Myrbetriq 50 mg tablet,exte nded release 2-10 00:00: 00 11-11 23:59 :00 No [id number] 1 tablet BEDTIME 1 tablet BEDTIME (route: [...] CARE WILL BE ESTABLISHED THAT MEETS PATIENT'S LONG TERM NEEDS AND INCLUDES PATIENT GOAL FOR HOME [...] End Date/Time Encounter Type Admission Type Attending [facility] [place] Care Department Encounter ID Discharge Date Discharge Status Discharge Condition Discharge Reason Percent Goals Met 2022-01-27 00:00:00 2022-10-14 00:00:00 Outpatient RECERTIFIC ATION JAYDON CASTRO [facility] [id number] 00:00:00 DISCHARGED /TRANSFERR ED TO ANOTHER TYPE OF HEALTH CARE INSTITUTIO N NOT DEFINED ELSEWHERE IN THIS CODE LIST INDEPENDEN T WITH USE OF ASSISTIVE DEVICE PER CLIENT REQUEST 100.00
--- NOTE | 2024-03-27 15:07 | HO.PSYCHPN ---
Subjective Subjective Date of Service: 03/27/24 Reason For Visit: psychosis Subjective Notes: Conditional Voluntary Interim History: The nursing staff reported that had been irritable coughing at times very suspicious. The occupational therapist reported that she was engageable and willing to go to groups. The social media coordinator reported that they would try to get more collateral information if she received her Aristada injection. On interview the patient reports that she is suffering from cough and requested cough drops. Mental Status Exam Mental Status Exam Patient Appearance: Appropriate Patient Orientation: Person and Situation Level of Consciousness: Awake and Appropriate Patient Behavior: Guarded and Passive Mood Description: Withdrawn Affect Description: Constricted Patient Cognition Impaired: Yes Ability to Follow Directions: Good Speech Pattern: Clear Hallucinations: None Delusions: Paranoid Ideation and Ideas of Reference Thought Process: Distracted and Slowed Thinking Thought Content: positive for [place] and positive for Poverty of Content Judgement: Fair Diagnostics Vital Signs (24Hr): Vital Signs - 24 hr 03/26/24 20:00 03/27/24 08:00 03/27/24 08:31 Temperature 97.6 F 97.0 F Pulse Rate 67 80 Respiratory Rate 18 18 Blood Pressure 128/65 137/74 137/74 Pulse Oximetry 94 95 Oxygen Delivery Method Room Air Room Air 03/27/24 08:33 Temperature Pulse Rate 80 Respiratory Rate Blood Pressure 137/74 Pulse Oximetry Oxygen Delivery Method BMI result Body Mass Index 40.3 Labs 03/22/24 21:02 03/25/24 15:39 Labs: Laboratory Results - last 48 hr 03/25/24 03/26/24 03/26/24 15:39 07:10 08:52 Sodium 139 Potassium 4.4 Chloride 105 Carbon Dioxide 25 Anion Gap 13 BUN 18 H Creatinine 1.02 Estim Creat Clear Calc 59.2 Estimated GFR 55 POC Glucose 148 H Random Glucose 127 H Calcium 9.0 Total Bilirubin 0.3 AST 25 ALT 28 Alkaline Phosphatase 45 Total Protein 6.6 Albumin 3.8 Triglycerides 99 Cholesterol 125 LDL Cholesterol, Calc 71 HDL Cholesterol 35 L 03/26/24 03/26/24 03/27/24 16:14 20:41 06:47 Sodium Potassium Chloride Carbon Dioxide Anion Gap BUN Creatinine Estim Creat Clear Calc Estimated GFR POC Glucose 106 108 139 H Random Glucose Calcium Total Bilirubin AST ALT Alkaline Phosphatase Total Protein Albumin Triglycerides Cholesterol LDL Cholesterol, Calc HDL Cholesterol Imaging Radiology Impressions: ITS Impressions Chest X-Ray 03/23/24 01:46 IMPRESSION: There appears to be bronchial thickening which may be seen with bronchitis. There is no focal lung consolidation or pleural effusions Electronically signed by: Marcos Payne MD 03/23/2024 03:55 AM [facility] Medications Medications Current Medications Acetaminophen (Acetaminophen 325 Mg Tablet) 975 mg PO Q6H PRN PRN Reason: Pain Last Admin: 03/27/24 09:49 Dose: 975 mg Al Hydroxide/Mg Hydroxide (Magnesium Hydrox/Alum Hydrox 30 Ml Oral.Susp) 30 ml PO QID PRN PRN Reason: Heartburn Albuterol Sulfate (Albuterol Sulfate 90 Mcg 8 Gm Inhaler) 90 puff INHALE Q4H PRN PRN Reason: Wheezing, Last Admin: 03/27/24 03:53 Dose: 90 puff Atorvastatin Calcium (Atorvastatin Calcium 10 Mg Tablet) 5 mg PO DAILY [facility] Last Admin: 03/27/24 08:30 Dose: 5 mg Benztropine Mesylate (Benztropine Mesylate 1 Mg Tablet) 1 mg PO BID [facility] Last Admin: 03/27/24 08:32 Dose: 1 mg Cyanocobalamin (Cyanocobalamin (Vitamin B-12) 1,000 Mcg Tablet) 1,000 mcg PO DAILY [facility] Last Admin: 03/27/24 08:35 Dose: 1,000 mcg Divalproex Sodium (Divalproex Sodium 500 Mg Tablet.Dr) 500 mg PO BEDTIME [facility] Last Admin: 03/26/24 20:25 Dose: 500 mg Docusate Sodium (Docusate Sodium 100 Mg Capsule) 100 mg PO BID PRN PRN Reason: Constipation Fluticasone/Vilanterol (Fluticasone/Vilanterol 100/25 Blst.W.Dev) 1 puff INHALE RDAILY [facility] Last Admin: 03/27/24 08:40 Dose: 1 puff Guaifenesin (Guaifenesin 200 Mg/10 Ml 10 Ml Liquid) 10 ml PO Q6H PRN PRN Reason: Cough Last Admin: 03/27/24 11:48 Dose: 10 ml Hydroxyzine HCl (Hydroxyzine Hcl 50 Mg Tablet) 50 mg PO QID PRN PRN Reason: SEVERE Anxiety Last Admin: 03/24/24 13:48 Dose: 50 mg Hydroxyzine HCl (Hydroxyzine Hcl 25 Mg Tablet) 25 mg PO Q6H PRN PRN Reason: Anxiety Levetiracetam (Levetiracetam 500 Mg Tablet) 1,500 mg PO BID [facility] Last Admin: 03/27/24 08:32 Dose: 1,500 mg Levothyroxine Sodium (Levothyroxine Sodium 100 Mcg Tablet) 100 mcg PO DAILY@0600 [facility] Last Admin: 03/27/24 05:42 Dose: 100 mcg Lisinopril (Lisinopril 5 Mg Tablet) 5 mg PO DAILY [facility]; Protocol Last Admin: 03/27/24 08:31 Dose: 5 mg Magnesium Hydroxide (Milk Of Magnesia 30 Ml Oral.Susp) 30 ml PO DAILY PRN PRN Reason: Constipation Melatonin (Melatonin 3 Mg Tablet) 12 mg PO BEDTIME [facility] Last Admin: 03/26/24 20:26 Dose: 12 mg Metformin HCl (Metformin Hcl 1,000 Mg Tablet) 1,000 mg PO BID [facility] Last Admin: 03/27/24 08:36 Dose: 1,000 mg Mirabegron (Mirabegron 50 Mg Tab.Er.24h) 50 mg PO DAILY [facility] Last Admin: 03/27/24 08:31 Dose: 50 mg Nystatin/Triamcinolone Acetonide (Nystatin/Triamcinolone Oint 15 Gm Tube) 1 appl TOPICAL BID [facility]; Protocol Last Admin: 03/27/24 11:22 Dose: Not Given Olanzapine (Olanzapine 5 Mg Tablet) 5 mg PO DAILY@1630 [facility] Last Admin: 03/26/24 15:50 Dose: 5 mg Propranolol HCl (Propranolol Hcl 10 Mg Tablet) 10 mg PO BID [facility]; Protocol Last Admin: 03/27/24 08:33 Dose: 10 mg Psyllium Hydrophilic Mucilloid (Psyllium Seed 3.7 Gm Packet) 3.7 gm PO BID [facility] Last Admin: 03/27/24 08:36 Dose: 3.7 gm Pyridoxine HCl (Pyridoxine Hcl (Vitamin B6) 50 Mg Tablet) 25 mg PO DAILY [facility] Last Admin: 03/27/24 09:50 Dose: 25 mg Senna (Sennosides 8.6 Mg Tablet) 17.2 mg PO BEDTIME PRN PRN Reason: Constipation Topiramate (Topiramate 25 Mg Tablet) 25 mg PO BID [facility] Last Admin: 03/27/24 08:34 Dose: 25 mg Trazodone HCl (Trazodone Hcl 50 Mg Tablet) 50 mg PO BEDTIME MRX1 PRN PRN Reason: Insomnia Vitamin D (Cholecalciferol (Vitamin D3) 25 Mcg Tablet) 50 mcg PO DAILY [facility] Last Admin: 03/27/24 08:35 Dose: 50 mcg Allergies Allergies Allergy/AdvReac Type Severity Reaction Status Date / Time oxcarbazepine Allergy Unknown Verified 03/22/24 20:38 [From Trileptal] peanut Allergy Unknown Verified 03/22/24 20:38 quetiapine [From Seroquel] Allergy Vomiting Verified 03/22/24 20:38 Assessment & Plan Assessment & Plan (1) Schizoaffective disorder: Status: Acute Code(s): F25.9 - Schizoaffective disorder, unspecified (2) HTN (hypertension): Status: Acute Code(s): I10 - Essential (primary) hypertension (3) Type 2 diabetes mellitus: Status: Acute Code(s): E11.9 - Type 2 diabetes mellitus without complications (4) Mild persistent asthma: Status: Acute Code(s): J45.30 - Mild persistent asthma, uncomplicated (5) Hypothyroidism: Status: Acute Code(s): E03.9 - Hypothyroidism, unspecified (6) Diabetic peripheral neuropathy: Status: Acute Code(s): E11.42 - Type 2 diabetes mellitus with diabetic polyneuropathy (7) CKD (chronic kidney disease): Status: Acute Code(s): N18.9 - Chronic kidney disease, unspecified (8) Seizure disorder: Status: Acute Code(s): G40.909 - Epilepsy, unspecified, not intractable, without status epilepticus Plan The patient is an elderly female with schizoaffective disorder and other medical comorbidities who was recently discharged from this facility for psychotic decompensation, stable but she did not receive most likely her Aristada injection in the community and went back grossly psychotic. On intake the patient was pleasant cooperative and could not understand why she was here. Plan 1. Gather collateral information. 2. The patient was able to contract for safety she will be on 15 minute checks. 3. Continue with regular medications. 4. Reassessment with results. Reason for continued inpatient stay Substantial Risk for: inability to function, rapid decompensation and med/psych decompensation Time Spent With Patient Time: Total time managing care of this patient today __20__ minutes.
[2024-03-27 15:37] LABS: Glucose, Whole Blood 102 mg/dL (60-115)
[2024-03-27] MEDS: OLANZapine 5 MG TABLET PO (16:54)
[2024-03-27 20:00] VITALS: BP 112/63; PULSE 80; RESP 16; TEMP 36.6; O2SAT 95
[2024-03-27] MEDS: guaiFENesin 100 MG/5 ML 5 ML LIQUID PO (20:22)
[2024-03-27] MEDS: Melatonin 3 MG TABLET 12 MG PO (20:24)
[2024-03-27] MEDS: Divalproex Sodium 500 MG TABLET.DR PO (20:24)
[2024-03-27 20:25] VITALS: BP 112/63; PULSE 80
[2024-03-28] MEDS: Levothyroxine Sodium 100 MCG TABLET PO (06:09)
[2024-03-28 06:24] LABS: Glucose, Whole Blood 128 mg/dL (60-115)
[2024-03-28 07:00] VITALS: BMI 40.5
[2024-03-28 08:00] VITALS: BP 115/71; PULSE 76; RESP 15; TEMP 37; O2SAT 96
[2024-03-28] MEDS: Fluticasone/Vilanterol 100/25 BLST.W.DEV 1 PUFF INHALE (09:03)
[2024-03-28] MEDS: Psyllium seed 3.7 GM PACKET PO ×2 (09:03→21:01)
[2024-03-28 09:05] VITALS: BP 115/71; PULSE 76
[2024-03-28] MEDS: Pyridoxine HCl (Vitamin B6) 50 MG TABLET 25 MG PO (09:05)
[2024-03-28] MEDS: Propranolol HCL 10 MG TABLET PO ×2 (09:05→20:56)
[2024-03-28] MEDS: Cholecalciferol (Vitamin D3) 25 MCG TABLET 50 MCG PO (09:05)
[2024-03-28] MEDS: Cyanocobalamin (Vitamin B-12) 1,000 MCG TABLET 1000 MCG PO (09:05)
[2024-03-28] MEDS: Topiramate 25 MG TABLET PO ×2 (09:05→20:55)
[2024-03-28] MEDS: Atorvastatin Calcium 10 MG TABLET 5 MG PO (09:06)
[2024-03-28 09:07] VITALS: BP 115/71
[2024-03-28] MEDS: metFORMIN HCl 1,000 MG TABLET 1000 MG PO ×2 (09:07→20:54)
[2024-03-28] MEDS: levETIRAcetam 500 MG TABLET 1500 MG PO ×2 (09:07→20:55)
[2024-03-28] MEDS: lisinopriL 5 MG TABLET PO (09:07)
[2024-03-28] MEDS: Benztropine Mesylate 1 MG TABLET PO ×2 (09:07→20:56)
[2024-03-28] MEDS: Mirabegron 50 MG TAB.ER.24H PO (09:07)
[2024-03-28] MEDS: Acetaminophen 325 MG TABLET 975 MG PO ×2 (09:20→20:57)
[2024-03-28 11:37] LABS: Glucose, Whole Blood 143 mg/dL (60-115)
--- NOTE | 2024-03-28 14:37 | HO.PSYCHPN ---
Subjective Subjective Date of Service: 03/28/24 Reason For Visit: psychosis Subjective Notes: Conditional Voluntary Interim History: The nursing staff reported the patient had been flat, withdrawn, ate well and took all her medications she slept 6 hours. The addiction social worker has not figure it out if she received her stand up by the [facility] program. We are going to restart Abilify 10 mg p.o. q.h.s.. Mental Status Exam Mental Status Exam Patient Appearance: Appropriate Patient Orientation: Person and Situation Level of Consciousness: Awake and Appropriate Patient Behavior: Guarded and Passive Mood Description: Withdrawn Affect Description: Blunted Patient Cognition Impaired: Yes Ability to Follow Directions: Fair Speech Pattern: Clear Hallucinations: None Delusions: Paranoid Ideation and Ideas of Reference Thought Process: Distracted and Slowed Thinking Thought Content: positive for [place] and positive for Poverty of Content Judgement: Poor Diagnostics Vital Signs (24Hr): Vital Signs - 24 hr 03/27/24 20:00 03/27/24 20:25 03/28/24 08:00 Temperature 98 F 98.6 F Pulse Rate 80 80 76 Respiratory Rate 16 15 Blood Pressure 112/63 112/63 115/71 Pulse Oximetry 95 96 Oxygen Delivery Method Room Air Room Air 03/28/24 09:05 03/28/24 09:07 Temperature Pulse Rate 76 Respiratory Rate Blood Pressure 115/71 115/71 Pulse Oximetry Oxygen Delivery Method BMI result Body Mass Index 40.3 Labs 03/22/24 21:02 03/25/24 15:39 Labs: Laboratory Results - last 48 hr 03/26/24 03/26/24 03/27/24 16:14 20:41 06:47 POC Glucose 106 108 139 H 03/27/24 03/28/24 03/28/24 15:33 06:08 11:33 POC Glucose 102 128 H 143 H Imaging Radiology Impressions: ITS Impressions Chest X-Ray 03/23/24 01:46 IMPRESSION: There appears to be bronchial thickening which may be seen with bronchitis. There is no focal lung consolidation or pleural effusions Electronically signed by: Marcos Payne MD 03/23/2024 03:55 AM [facility] Medications Medications Current Medications Acetaminophen (Acetaminophen 325 Mg Tablet) 975 mg PO Q6H PRN PRN Reason: Pain Last Admin: 03/28/24 09:20 Dose: 975 mg Al Hydroxide/Mg Hydroxide (Magnesium Hydrox/Alum Hydrox 30 Ml Oral.Susp) 30 ml PO QID PRN PRN Reason: Heartburn Albuterol Sulfate (Albuterol Sulfate 90 Mcg 8 Gm Inhaler) 90 puff INHALE Q4H PRN PRN Reason: Wheezing, Last Admin: 03/27/24 20:22 Dose: 90 puff Atorvastatin Calcium (Atorvastatin Calcium 10 Mg Tablet) 5 mg PO DAILY [facility] Last Admin: 03/28/24 09:06 Dose: 5 mg Benztropine Mesylate (Benztropine Mesylate 1 Mg Tablet) 1 mg PO BID [facility] Last Admin: 03/28/24 09:07 Dose: 1 mg Cyanocobalamin (Cyanocobalamin (Vitamin B-12) 1,000 Mcg Tablet) 1,000 mcg PO DAILY [facility] Last Admin: 03/28/24 09:05 Dose: 1,000 mcg Divalproex Sodium (Divalproex Sodium 500 Mg Tablet.Dr) 500 mg PO BEDTIME [facility] Last Admin: 03/27/24 20:24 Dose: 500 mg Docusate Sodium (Docusate Sodium 100 Mg Capsule) 100 mg PO BID PRN PRN Reason: Constipation Fluticasone/Vilanterol (Fluticasone/Vilanterol 100/25 Blst.W.Dev) 1 puff INHALE RDAILY [facility] Last Admin: 03/28/24 09:03 Dose: 1 puff Guaifenesin (Guaifenesin 200 Mg/10 Ml 10 Ml Liquid) 10 ml PO Q6H PRN PRN Reason: Cough Last Admin: 03/27/24 11:48 Dose: 10 ml Guaifenesin (Guaifenesin 100 Mg/5 Ml 5 Ml Liquid) 5 ml PO Q6H PRN PRN Reason: Cough Last Admin: 03/27/24 20:22 Dose: 5 ml Hydroxyzine HCl (Hydroxyzine Hcl 50 Mg Tablet) 50 mg PO QID PRN PRN Reason: SEVERE Anxiety Last Admin: 03/24/24 13:48 Dose: 50 mg Hydroxyzine HCl (Hydroxyzine Hcl 25 Mg Tablet) 25 mg PO Q6H PRN PRN Reason: Anxiety Levetiracetam (Levetiracetam 500 Mg Tablet) 1,500 mg PO BID [facility] Last Admin: 03/28/24 09:07 Dose: 1,500 mg Levothyroxine Sodium (Levothyroxine Sodium 100 Mcg Tablet) 100 mcg PO DAILY@0600 [facility] Last Admin: 03/28/24 06:09 Dose: 100 mcg Lisinopril (Lisinopril 5 Mg Tablet) 5 mg PO DAILY [facility]; Protocol Last Admin: 03/28/24 09:07 Dose: 5 mg Magnesium Hydroxide (Milk Of Magnesia 30 Ml Oral.Susp) 30 ml PO DAILY PRN PRN Reason: Constipation Melatonin (Melatonin 3 Mg Tablet) 12 mg PO BEDTIME [facility] Last Admin: 03/27/24 20:24 Dose: 12 mg Metformin HCl (Metformin Hcl 1,000 Mg Tablet) 1,000 mg PO BID [facility] Last Admin: 03/28/24 09:07 Dose: 1,000 mg Mirabegron (Mirabegron 50 Mg Tab.Er.24h) 50 mg PO DAILY [facility] Last Admin: 03/28/24 09:07 Dose: 50 mg Nystatin/Triamcinolone Acetonide (Nystatin/Triamcinolone Oint 15 Gm Tube) 1 appl TOPICAL BID [facility]; Protocol Last Admin: 03/28/24 09:08 Dose: Not Given Olanzapine (Olanzapine 5 Mg Tablet) 5 mg PO DAILY@1630 [facility] Last Admin: 03/27/24 16:54 Dose: 5 mg Propranolol HCl (Propranolol Hcl 10 Mg Tablet) 10 mg PO BID [facility]; Protocol Last Admin: 03/28/24 09:05 Dose: 10 mg Psyllium Hydrophilic Mucilloid (Psyllium Seed 3.7 Gm Packet) 3.7 gm PO BID [facility] Last Admin: 03/28/24 09:03 Dose: 3.7 gm Pyridoxine HCl (Pyridoxine Hcl (Vitamin B6) 50 Mg Tablet) 25 mg PO DAILY [facility] Last Admin: 03/28/24 09:05 Dose: 25 mg Senna (Sennosides 8.6 Mg Tablet) 17.2 mg PO BEDTIME PRN PRN Reason: Constipation Topiramate (Topiramate 25 Mg Tablet) 25 mg PO BID [facility] Last Admin: 03/28/24 09:05 Dose: 25 mg Trazodone HCl (Trazodone Hcl 50 Mg Tablet) 50 mg PO BEDTIME MRX1 PRN PRN Reason: Insomnia Vitamin D (Cholecalciferol (Vitamin D3) 25 Mcg Tablet) 50 mcg PO DAILY [facility] Last Admin: 03/28/24 09:05 Dose: 50 mcg Allergies Allergies Allergy/AdvReac Type Severity Reaction Status Date / Time oxcarbazepine Allergy Unknown Verified 03/22/24 20:38 [From Trileptal] peanut Allergy Unknown Verified 03/22/24 20:38 quetiapine [From Seroquel] Allergy Vomiting Verified 03/22/24 20:38 Assessment & Plan Assessment & Plan (1) Schizoaffective disorder: Status: Acute Code(s): F25.9 - Schizoaffective disorder, unspecified (2) HTN (hypertension): Status: Acute Code(s): I10 - Essential (primary) hypertension (3) Type 2 diabetes mellitus: Status: Acute Code(s): E11.9 - Type 2 diabetes mellitus without complications (4) Mild persistent asthma: Status: Acute Code(s): J45.30 - Mild persistent asthma, uncomplicated (5) Hypothyroidism: Status: Acute Code(s): E03.9 - Hypothyroidism, unspecified (6) Diabetic peripheral neuropathy: Status: Acute Code(s): E11.42 - Type 2 diabetes mellitus with diabetic polyneuropathy (7) CKD (chronic kidney disease): Status: Acute Code(s): N18.9 - Chronic kidney disease, unspecified (8) Seizure disorder: Status: Acute Code(s): G40.909 - Epilepsy, unspecified, not intractable, without status epilepticus Plan The patient is an elderly female with schizoaffective disorder and other medical comorbidities who was recently discharged from this facility for psychotic decompensation, stable but she did not receive most likely her Aristada injection in the community and went back grossly psychotic. On intake the patient was pleasant cooperative and could not understand why she was here. Plan 1. Gather collateral information. 2. The patient was able to contract for safety she will be on 15 minute checks. 3. Continue with regular medications. 4. Reassessment with results. 5. We are starting Abilify 10 mg p.o. at bedtime on March 28 since it is not clear if she received her Aristada the community. Reason for continued inpatient stay Substantial Risk for: inability to function, rapid decompensation and med/psych decompensation Time Spent With Patient Time: Total time managing care of this patient today _20___ minutes.
--- NOTE | 2024-03-28 15:11 | PC.NURSE ---
THIS PT REQUESTED THAT THIS ACCOUNT EXECUTIVE [employer] LOOK AT HER GROIN, IT WAS UNCOMFORTABLE. tHIS ACCOUNT EXECUTIVE [employer] THINKS THAT IT MAY BE A FUNGAL INFECTION. PT STATES THAT IT IS AN INFECTED HUMAN BITE . THIS [employer]OUNT [employer]EC[employer] REPORTED INFORMATION TO ARIES MURRAY VIA [employer]. HIS RESPONSE WAS OK .
[2024-03-28] MEDS: OLANZapine 5 MG TABLET PO (16:14)
[2024-03-28 16:29] LABS: Glucose, Whole Blood 135 mg/dL (60-115)
[2024-03-28 19:41] LABS: Glucose, Whole Blood 125 mg/dL (60-115)
[2024-03-28 20:00] VITALS: BP 145/66; PULSE 75; RESP 16; TEMP 36.5; O2SAT 100
[2024-03-28] MEDS: guaiFENesin 200 MG/10 ML 10 ML LIQUID PO (20:54)
[2024-03-28] MEDS: ARIPiprazole 10 MG TABLET PO (20:55)
[2024-03-28] MEDS: Melatonin 3 MG TABLET 12 MG PO (20:55)
[2024-03-28] MEDS: Divalproex Sodium 500 MG TABLET.DR PO (20:56)
[2024-03-28] MEDS: Albuterol Sulfate 90 MCG 8 GM INHALER 90 PUFF INHALE (21:05)
[2024-03-29 06:55] LABS: Glucose, Whole Blood 115 mg/dL (60-115)
[2024-03-29 08:00] VITALS: BP 127/61; PULSE 73; RESP 16; TEMP 36.7; O2SAT 96
[2024-03-29] MEDS: Atorvastatin Calcium 10 MG TABLET 5 MG PO (08:05)
[2024-03-29] MEDS: Benztropine Mesylate 1 MG TABLET PO ×2 (08:05→20:36)
[2024-03-29] MEDS: Cyanocobalamin (Vitamin B-12) 1,000 MCG TABLET 1000 MCG PO (08:06)
[2024-03-29] MEDS: lisinopriL 5 MG TABLET PO (08:06)
[2024-03-29] MEDS: levETIRAcetam 500 MG TABLET 1500 MG PO ×2 (08:07→20:34)
[2024-03-29] MEDS: Pyridoxine HCl (Vitamin B6) 50 MG TABLET 25 MG PO (08:07)
[2024-03-29] MEDS: Cholecalciferol (Vitamin D3) 25 MCG TABLET 50 MCG PO (08:07)
[2024-03-29] MEDS: Levothyroxine Sodium 100 MCG TABLET PO (08:08)
[2024-03-29] MEDS: Propranolol HCL 10 MG TABLET PO ×2 (08:08→20:35)
[2024-03-29] MEDS: Mirabegron 50 MG TAB.ER.24H PO (08:08)
[2024-03-29] MEDS: Psyllium seed 3.7 GM PACKET PO (08:09)
[2024-03-29] MEDS: metFORMIN HCl 1,000 MG TABLET 1000 MG PO ×2 (08:09→20:35)
[2024-03-29] MEDS: Topiramate 25 MG TABLET PO ×2 (08:23→20:36)
[2024-03-29] MEDS: Nystatin Ointment 15 GM TUBE 1 APPL TOPICAL ×2 (08:54→20:33)
[2024-03-29] MEDS: Fluticasone/Vilanterol 100/25 BLST.W.DEV 1 PUFF INHALE (08:54)
[2024-03-29] MEDS: hydrOXYzine HCL 25 MG TABLET PO (14:36)
--- NOTE | 2024-03-29 15:27 | HO.PSYCHPN ---
Subjective Subjective Date of Service: 03/29/24 Reason For Visit: psychosis Subjective Notes: Conditional Voluntary Interim History: The nursing staff reported the patient had been compliant with treatment. Apparently the social worker psychiatric found out the pace gave her her shot the patient is in agreement for more case management. On interview the patient denies new symptoms, waiting for placement. Mental Status Exam Mental Status Exam Patient Appearance: Well Grooomed and Appropriate Patient Orientation: Person and Situation Level of Consciousness: Awake and Appropriate Patient Behavior: Guarded and Passive Mood Description: Withdrawn Affect Description: Constricted Patient Cognition Impaired: Yes Ability to Follow Directions: Good Speech Pattern: Clear Hallucinations: None Delusions: Not Present Thought Process: Distracted and Slowed Thinking Thought Content: positive for [place] and positive for Poverty of Content Judgement: Fair Diagnostics Vital Signs (24Hr): Vital Signs - 24 hr 03/28/24 20:00 03/29/24 08:00 Temperature 97.7 F 98.1 F Pulse Rate 75 73 Respiratory Rate 16 16 Blood Pressure 145/66 H 127/61 Pulse Oximetry 100 96 Oxygen Delivery Method Room Air Room Air BMI result Body Mass Index 40.5 Labs 03/22/24 21:02 03/25/24 15:39 Labs: Laboratory Results - last 48 hr 03/27/24 03/28/24 03/28/24 15:33 06:08 11:33 POC Glucose 102 128 H 143 H 03/28/24 03/28/24 03/29/24 16:24 19:36 06:40 POC Glucose 135 H 125 H 115 Imaging Radiology Impressions: ITS Impressions Chest X-Ray 03/23/24 01:46 IMPRESSION: There appears to be bronchial thickening which may be seen with bronchitis. There is no focal lung consolidation or pleural effusions Electronically signed by: Marcos Payne MD 03/23/2024 03:55 AM [facility] Medications Medications Current Medications Acetaminophen (Acetaminophen 325 Mg Tablet) 975 mg PO Q6H PRN PRN Reason: Pain Last Admin: 03/28/24 20:57 Dose: 975 mg Al Hydroxide/Mg Hydroxide (Magnesium Hydrox/Alum Hydrox 30 Ml Oral.Susp) 30 ml PO QID PRN PRN Reason: Heartburn Albuterol Sulfate (Albuterol Sulfate 90 Mcg 8 Gm Inhaler) 90 puff INHALE Q4H PRN PRN Reason: Wheezing, Last Admin: 03/28/24 21:05 Dose: 90 puff Atorvastatin Calcium (Atorvastatin Calcium 10 Mg Tablet) 5 mg PO DAILY [facility] Last Admin: 03/29/24 08:05 Dose: 5 mg Benztropine Mesylate (Benztropine Mesylate 1 Mg Tablet) 1 mg PO BID [facility] Last Admin: 03/29/24 08:05 Dose: 1 mg Cyanocobalamin (Cyanocobalamin (Vitamin B-12) 1,000 Mcg Tablet) 1,000 mcg PO DAILY [facility] Last Admin: 03/29/24 08:06 Dose: 1,000 mcg Divalproex Sodium (Divalproex Sodium 500 Mg Tablet.Dr) 500 mg PO BEDTIME [facility] Last Admin: 03/28/24 20:56 Dose: 500 mg Docusate Sodium (Docusate Sodium 100 Mg Capsule) 100 mg PO BID PRN PRN Reason: Constipation Fluticasone/Vilanterol (Fluticasone/Vilanterol 100/25 Blst.W.Dev) 1 puff INHALE RDAILY [facility] Last Admin: 03/29/24 08:54 Dose: 1 puff Guaifenesin (Guaifenesin 200 Mg/10 Ml 10 Ml Liquid) 10 ml PO Q6H PRN PRN Reason: Cough Last Admin: 03/28/24 20:54 Dose: 10 ml Guaifenesin (Guaifenesin 100 Mg/5 Ml 5 Ml Liquid) 5 ml PO Q6H PRN PRN Reason: Cough Last Admin: 03/27/24 20:22 Dose: 5 ml Hydroxyzine HCl (Hydroxyzine Hcl 50 Mg Tablet) 50 mg PO QID PRN PRN Reason: SEVERE Anxiety Last Admin: 03/24/24 13:48 Dose: 50 mg Hydroxyzine HCl (Hydroxyzine Hcl 25 Mg Tablet) 25 mg PO Q6H PRN PRN Reason: Anxiety Last Admin: 03/29/24 14:36 Dose: 25 mg Levetiracetam (Levetiracetam 500 Mg Tablet) 1,500 mg PO BID [facility] Last Admin: 03/29/24 08:07 Dose: 1,500 mg Levothyroxine Sodium (Levothyroxine Sodium 100 Mcg Tablet) 100 mcg PO DAILY@0600 [facility] Last Admin: 03/29/24 08:08 Dose: 100 mcg Lisinopril (Lisinopril 5 Mg Tablet) 5 mg PO DAILY [facility]; Protocol Last Admin: 03/29/24 08:06 Dose: 5 mg Magnesium Hydroxide (Milk Of Magnesia 30 Ml Oral.Susp) 30 ml PO DAILY PRN PRN Reason: Constipation Melatonin (Melatonin 3 Mg Tablet) 12 mg PO BEDTIME [facility] Last Admin: 03/28/24 20:55 Dose: 12 mg Metformin HCl (Metformin Hcl 1,000 Mg Tablet) 1,000 mg PO BID [facility] Last Admin: 03/29/24 08:09 Dose: 1,000 mg Mirabegron (Mirabegron 50 Mg Tab.Er.24h) 50 mg PO DAILY [facility] Last Admin: 03/29/24 08:08 Dose: 50 mg Nystatin (Nystatin Ointment 15 Gm Tube) 1 appl TOPICAL BID [facility]; Protocol Last Admin: 03/29/24 08:54 Dose: 1 appl Nystatin/Triamcinolone Acetonide (Nystatin/Triamcinolone Oint 15 Gm Tube) 1 appl TOPICAL BID [facility]; Protocol Last Admin: 03/29/24 09:17 Dose: Not Given Olanzapine (Olanzapine 5 Mg Tablet) 5 mg PO DAILY@1630 [facility] Last Admin: 03/28/24 16:14 Dose: 5 mg Propranolol HCl (Propranolol Hcl 10 Mg Tablet) 10 mg PO BID [facility]; Protocol Last Admin: 03/29/24 08:08 Dose: 10 mg Psyllium Hydrophilic Mucilloid (Psyllium Seed 3.7 Gm Packet) 3.7 gm PO BID [facility] Last Admin: 03/29/24 08:09 Dose: 3.7 gm Pyridoxine HCl (Pyridoxine Hcl (Vitamin B6) 50 Mg Tablet) 25 mg PO DAILY [facility] Last Admin: 03/29/24 08:07 Dose: 25 mg Senna (Sennosides 8.6 Mg Tablet) 17.2 mg PO BEDTIME PRN PRN Reason: Constipation Topiramate (Topiramate 25 Mg Tablet) 25 mg PO BID [facility] Last Admin: 03/29/24 08:23 Dose: 25 mg Trazodone HCl (Trazodone Hcl 50 Mg Tablet) 50 mg PO BEDTIME MRX1 PRN PRN Reason: Insomnia Vitamin D (Cholecalciferol (Vitamin D3) 25 Mcg Tablet) 50 mcg PO DAILY [facility] Last Admin: 03/29/24 08:07 Dose: 50 mcg Allergies Allergies Allergy/AdvReac Type Severity Reaction Status Date / Time oxcarbazepine Allergy Unknown Verified 03/22/24 20:38 [From Trileptal] peanut Allergy Unknown Verified 03/22/24 20:38 quetiapine [From Seroquel] Allergy Vomiting Verified 03/22/24 20:38 Assessment & Plan Assessment & Plan (1) Schizoaffective disorder: Status: Acute Code(s): F25.9 - Schizoaffective disorder, unspecified (2) HTN (hypertension): Status: Acute Code(s): I10 - Essential (primary) hypertension (3) Type 2 diabetes mellitus: Status: Acute Code(s): E11.9 - Type 2 diabetes mellitus without complications (4) Mild persistent asthma: Status: Acute Code(s): J45.30 - Mild persistent asthma, uncomplicated (5) Hypothyroidism: Status: Acute Code(s): E03.9 - Hypothyroidism, unspecified (6) Diabetic peripheral neuropathy: Status: Acute Code(s): E11.42 - Type 2 diabetes mellitus with diabetic polyneuropathy (7) CKD (chronic kidney disease): Status: Acute Code(s): N18.9 - Chronic kidney disease, unspecified (8) Seizure disorder: Status: Acute Code(s): G40.909 - Epilepsy, unspecified, not intractable, without status epilepticus Plan The patient is an elderly female with schizoaffective disorder and other medical comorbidities who was recently discharged from this facility for psychotic decompensation, stable but she did not receive most likely her Aristada injection in the community and went back grossly psychotic. On intake the patient was pleasant cooperative and could not understand why she was here. Plan 1. Gather collateral information. 2. The patient was able to contract for safety she will be on 15 minute checks. 3. Continue with regular medications. 4. Reassessment with results. 5. We are starting Abilify 10 mg p.o. at bedtime on March 28 since it is not clear if she received her Aristada the community. Reason for continued inpatient stay Substantial Risk for: inability to function, rapid decompensation and med/psych decompensation Time Spent With Patient Time: Total time managing care of this patient today __20__ minutes.
[2024-03-29 16:26] LABS: Glucose, Whole Blood 174 mg/dL (60-115)
[2024-03-29] MEDS: OLANZapine 5 MG TABLET PO (16:43)
[2024-03-29 20:00] VITALS: BP 112/55; PULSE 74; RESP 18; TEMP 36.3; O2SAT 95
[2024-03-29 20:25] LABS: Glucose, Whole Blood 138 mg/dL (60-115)
[2024-03-29] MEDS: Albuterol Sulfate 90 MCG 8 GM INHALER 90 PUFF INHALE (20:32)
[2024-03-29] MEDS: guaiFENesin 200 MG/10 ML 10 ML LIQUID PO (20:32)
[2024-03-29] MEDS: Melatonin 3 MG TABLET 12 MG PO (20:34)
[2024-03-29 20:35] VITALS: BP 112/55; PULSE 74
[2024-03-29] MEDS: Divalproex Sodium 500 MG TABLET.DR PO (20:35)
[2024-03-30] MEDS: Levothyroxine Sodium 100 MCG TABLET PO (05:18)
[2024-03-30] MEDS: guaiFENesin 100 MG/5 ML 5 ML LIQUID PO ×3 (05:44→20:09)
[2024-03-30 05:50] LABS: Glucose, Whole Blood 185 mg/dL (60-115)
--- NOTE | 2024-03-30 06:42 | P.PNPSI_ITS ---
Subjective Subjective Date of Service: 03/30/24 Reason For Visit: psychosis Subjective Notes: Conditional Voluntary Interim History: The nursing staff reported the patient had been compliant with treatment, she was been visible in the common areas. On interview the patient reports that she wants more services. Waiting for placement. Yesterday we found out that she got her Abilify IM will keep it with Zyprexa in the evening. Mental Status Exam Mental Status Exam Patient Appearance: Appropriate Patient Orientation: Person and Situation Level of Consciousness: Awake Patient Behavior: Guarded and Passive Mood Description: Withdrawn Affect Description: Constricted Patient Cognition Impaired: Yes Ability to Follow Directions: Good Speech Pattern: Clear Hallucinations: None Delusions: Paranoid Ideation and Ideas of Reference Thought Process: Distracted and Slowed Thinking Thought Content: positive for [place] and positive for Poverty of Content Judgement: Fair Diagnostics Vital Signs (24Hr): Vital Signs - 24 hr 03/29/24 08:00 03/29/24 20:00 03/29/24 20:35 Temperature 98.1 F 97.3 F Pulse Rate 73 74 74 Respiratory Rate 16 18 Blood Pressure 127/61 112/55 L 112/55 L Pulse Oximetry 96 95 Oxygen Delivery Method Room Air Room Air BMI result Body Mass Index 40.5 Labs 03/22/24 21:02 03/25/24 15:39 Labs: Laboratory Results - last 48 hr 03/28/24 03/28/24 03/28/24 11:33 16:24 19:36 POC Glucose 143 H 135 H 125 H 03/29/24 03/29/24 03/29/24 06:40 16:18 20:06 POC Glucose 115 174 H 138 H 03/30/24 05:45 POC Glucose 185 H Imaging Radiology Impressions: ITS Impressions Chest X-Ray 03/23/24 01:46 IMPRESSION: There appears to be bronchial thickening which may be seen with bronchitis. There is no focal lung consolidation or pleural effusions Electronically signed by: Marcos Payne MD 03/23/2024 03:55 AM [facility] Medications Medications Current Medications Acetaminophen (Acetaminophen 325 Mg Tablet) 975 mg PO Q6H PRN PRN Reason: Pain Last Admin: 03/28/24 20:57 Dose: 975 mg Al Hydroxide/Mg Hydroxide (Magnesium Hydrox/Alum Hydrox 30 Ml Oral.Susp) 30 ml PO QID PRN PRN Reason: Heartburn Albuterol Sulfate (Albuterol Sulfate 90 Mcg 8 Gm Inhaler) 90 puff INHALE Q4H PRN PRN Reason: Wheezing, Last Admin: 03/29/24 20:32 Dose: 90 puff Atorvastatin Calcium (Atorvastatin Calcium 10 Mg Tablet) 5 mg PO DAILY [facility] Last Admin: 03/29/24 08:05 Dose: 5 mg Benztropine Mesylate (Benztropine Mesylate 1 Mg Tablet) 1 mg PO BID [facility] Last Admin: 03/29/24 20:36 Dose: 1 mg Cyanocobalamin (Cyanocobalamin (Vitamin B-12) 1,000 Mcg Tablet) 1,000 mcg PO DAILY [facility] Last Admin: 03/29/24 08:06 Dose: 1,000 mcg Divalproex Sodium (Divalproex Sodium 500 Mg Tablet.Dr) 500 mg PO BEDTIME [facility] Last Admin: 03/29/24 20:35 Dose: 500 mg Docusate Sodium (Docusate Sodium 100 Mg Capsule) 100 mg PO BID PRN PRN Reason: Constipation Fluticasone/Vilanterol (Fluticasone/Vilanterol 100/25 Blst.W.Dev) 1 puff INHALE RDAILY [facility] Last Admin: 03/29/24 08:54 Dose: 1 puff Guaifenesin (Guaifenesin 200 Mg/10 Ml 10 Ml Liquid) 10 ml PO Q6H PRN PRN Reason: Cough Last Admin: 03/29/24 20:32 Dose: 10 ml Guaifenesin (Guaifenesin 100 Mg/5 Ml 5 Ml Liquid) 5 ml PO Q6H PRN PRN Reason: Cough Last Admin: 03/30/24 05:44 Dose: 5 ml Hydroxyzine HCl (Hydroxyzine Hcl 50 Mg Tablet) 50 mg PO QID PRN PRN Reason: SEVERE Anxiety Last Admin: 03/24/24 13:48 Dose: 50 mg Hydroxyzine HCl (Hydroxyzine Hcl 25 Mg Tablet) 25 mg PO Q6H PRN PRN Reason: Anxiety Last Admin: 03/29/24 14:36 Dose: 25 mg Levetiracetam (Levetiracetam 500 Mg Tablet) 1,500 mg PO BID [facility] Last Admin: 03/29/24 20:34 Dose: 1,500 mg Levothyroxine Sodium (Levothyroxine Sodium 100 Mcg Tablet) 100 mcg PO DAILY@0600 [facility] Last Admin: 03/30/24 05:18 Dose: 100 mcg Lisinopril (Lisinopril 5 Mg Tablet) 5 mg PO DAILY [facility]; Protocol Last Admin: 03/29/24 08:06 Dose: 5 mg Magnesium Hydroxide (Milk Of Magnesia 30 Ml Oral.Susp) 30 ml PO DAILY PRN PRN Reason: Constipation Melatonin (Melatonin 3 Mg Tablet) 12 mg PO BEDTIME [facility] Last Admin: 03/29/24 20:34 Dose: 12 mg Metformin HCl (Metformin Hcl 1,000 Mg Tablet) 1,000 mg PO BID [facility] Last Admin: 03/29/24 20:35 Dose: 1,000 mg Mirabegron (Mirabegron 50 Mg Tab.Er.24h) 50 mg PO DAILY [facility] Last Admin: 03/29/24 08:08 Dose: 50 mg Nystatin (Nystatin Ointment 15 Gm Tube) 1 appl TOPICAL BID [facility]; Protocol Last Admin: 03/29/24 20:33 Dose: 1 appl Nystatin/Triamcinolone Acetonide (Nystatin/Triamcinolone Oint 15 Gm Tube) 1 appl TOPICAL BID [facility]; Protocol Last Admin: 03/29/24 21:37 Dose: Not Given Olanzapine (Olanzapine 5 Mg Tablet) 5 mg PO DAILY@1630 [facility] Last Admin: 03/29/24 16:43 Dose: 5 mg Propranolol HCl (Propranolol Hcl 10 Mg Tablet) 10 mg PO BID [facility]; Protocol Last Admin: 03/29/24 20:35 Dose: 10 mg Psyllium Hydrophilic Mucilloid (Psyllium Seed 3.7 Gm Packet) 3.7 gm PO BID [facility] Last Admin: 03/29/24 20:38 Dose: Not Given Pyridoxine HCl (Pyridoxine Hcl (Vitamin B6) 50 Mg Tablet) 25 mg PO DAILY [facility] Last Admin: 03/29/24 08:07 Dose: 25 mg Senna (Sennosides 8.6 Mg Tablet) 17.2 mg PO BEDTIME PRN PRN Reason: Constipation Topiramate (Topiramate 25 Mg Tablet) 25 mg PO BID [facility] Last Admin: 03/29/24 20:36 Dose: 25 mg Trazodone HCl (Trazodone Hcl 50 Mg Tablet) 50 mg PO BEDTIME [facility] PRN PRN Reason: Insomnia Vitamin D (Cholecalciferol (Vitamin D3) 25 Mcg Tablet) 50 mcg PO DAILY [facility] Last Admin: 03/29/24 08:07 Dose: 50 mcg Allergies Allergies Allergy/AdvReac Type Severity Reaction Status Date / Time oxcarbazepine Allergy Unknown Verified 03/22/24 20:38 [From Trileptal] peanut Allergy Unknown Verified 03/22/24 20:38 quetiapine [From Seroquel] Allergy Vomiting Verified 03/22/24 20:38 Assessment & Plan Assessment & Plan (1) Schizoaffective disorder: Status: Acute Code(s): F25.9 - Schizoaffective disorder, unspecified (2) HTN (hypertension): Status: Acute Code(s): I10 - Essential (primary) hypertension (3) Type 2 diabetes mellitus: Status: Acute Code(s): E11.9 - Type 2 diabetes mellitus without complications (4) Mild persistent asthma: Status: Acute Code(s): J45.30 - Mild persistent asthma, uncomplicated (5) Hypothyroidism: Status: Acute Code(s): E03.9 - Hypothyroidism, unspecified (6) Diabetic peripheral neuropathy: Status: Acute Code(s): E11.42 - Type 2 diabetes mellitus with diabetic polyneuropathy (7) CKD (chronic kidney disease): Status: Acute Code(s): N18.9 - Chronic kidney disease, unspecified (8) Seizure disorder: Status: Acute Code(s): G40.909 - Epilepsy, unspecified, not intractable, without status epilepticus Plan The patient is an elderly female with schizoaffective disorder and other medical comorbidities who was recently discharged from this facility for psychotic decompensation, stable but she did not receive most likely her Aristada injection in the community and went back grossly psychotic. On intake the patient was pleasant cooperative and could not understand why she was here. Plan 1. Gather collateral information. 2. The patient was able to contract for safety she will be on 15 minute checks. 3. Continue with regular medications. 4. Reassessment with results. 5. We are starting Abilify 10 mg p.o. at bedtime on March 28 since it is not clear if she received her Aristada the community. Later on we discontinue the Abilify since she received her Aristada injection after discharge last time. 6. Wound consult for 03/30 Reason for continued inpatient stay Substantial Risk for: inability to function, rapid decompensation and med/psych decompensation Time Spent With Patient Time: Total time managing care of this patient today __20__ minutes.
[2024-03-30 07:39] VITALS: BP 112/63; PULSE 68; RESP 18; TEMP 36.4; O2SAT 96
[2024-03-30] MEDS: Pyridoxine HCl (Vitamin B6) 50 MG TABLET 25 MG PO (08:05)
[2024-03-30] MEDS: Cholecalciferol (Vitamin D3) 25 MCG TABLET 50 MCG PO (08:05)
[2024-03-30] MEDS: Psyllium seed 3.7 GM PACKET PO ×2 (08:05→20:10)
[2024-03-30] MEDS: levETIRAcetam 500 MG TABLET 1500 MG PO ×2 (08:05→20:09)
[2024-03-30] MEDS: lisinopriL 5 MG TABLET PO (08:05)
[2024-03-30] MEDS: Mirabegron 50 MG TAB.ER.24H PO (08:06)
[2024-03-30] MEDS: metFORMIN HCl 1,000 MG TABLET 1000 MG PO ×2 (08:06→20:10)
[2024-03-30] MEDS: Atorvastatin Calcium 10 MG TABLET 5 MG PO (08:06)
[2024-03-30] MEDS: Cyanocobalamin (Vitamin B-12) 1,000 MCG TABLET 1000 MCG PO (08:06)
[2024-03-30] MEDS: Propranolol HCL 10 MG TABLET PO ×2 (08:06→20:11)
[2024-03-30] MEDS: Benztropine Mesylate 1 MG TABLET PO ×2 (08:06→20:10)
[2024-03-30] MEDS: Acetaminophen 325 MG TABLET 975 MG PO ×2 (08:07→20:10)
[2024-03-30] MEDS: guaiFENesin 200 MG/10 ML 10 ML LIQUID PO (08:10)
[2024-03-30] MEDS: Fluticasone/Vilanterol 100/25 BLST.W.DEV 1 PUFF INHALE (08:10)
[2024-03-30] MEDS: Nystatin Ointment 15 GM TUBE 1 APPL TOPICAL (08:12)
[2024-03-30] MEDS: Albuterol Sulfate 90 MCG 8 GM INHALER 90 PUFF INHALE ×2 (08:13→20:22)
[2024-03-30] MEDS: Topiramate 25 MG TABLET PO ×2 (08:18→20:10)
[2024-03-30 11:18] LABS: Glucose, Whole Blood 149 mg/dL (60-115)
[2024-03-30 16:12] LABS: Glucose, Whole Blood 157 mg/dL (60-115)
[2024-03-30] MEDS: OLANZapine 5 MG TABLET PO (16:24)
[2024-03-30 19:58] LABS: Glucose, Whole Blood 145 mg/dL (60-115)
[2024-03-30 20:00] VITALS: BP 122/61; PULSE 61; RESP 18; TEMP 36.4; O2SAT 96
[2024-03-30] MEDS: Melatonin 3 MG TABLET 12 MG PO (20:09)
[2024-03-30] MEDS: hydrOXYzine HCL 50 MG TABLET PO (20:10)
[2024-03-30] MEDS: Divalproex Sodium 500 MG TABLET.DR PO (20:10)
[2024-03-30 20:11] VITALS: BP 122/61; PULSE 61
[2024-03-31] MEDS: Albuterol Sulfate 90 MCG 8 GM INHALER 90 PUFF INHALE ×3 (02:03→19:54)
[2024-03-31] MEDS: Levothyroxine Sodium 100 MCG TABLET PO (05:49)
[2024-03-31 06:38] LABS: Glucose, Whole Blood 143 mg/dL (60-115)
--- NOTE | 2024-03-31 06:43 | HO.PSYCHPN ---
Subjective Subjective Date of Service: 03/31/24 Reason For Visit: psychosis Subjective Notes: Conditional Voluntary Interim History: The nursing staff reported the patient had been compliant with treatment, she had been complaining of cough. She was seen in the common areas. On interview the patient reported that she is feeling a little sick due to her light cough. Compliant with treatment no changes in her mental status. Mental Status Exam Mental Status Exam Patient Appearance: Well Grooomed and Appropriate Patient Orientation: Person and Situation Level of Consciousness: Awake and Appropriate Patient Behavior: Guarded and Passive Mood Description: Withdrawn Affect Description: Constricted Patient Cognition Impaired: Yes Ability to Follow Directions: Fair Speech Pattern: Clear Hallucinations: None Delusions: Ideas of Reference Thought Process: Distracted and Slowed Thinking Thought Content: positive for [place] and positive for Poverty of Content Judgement: Poor Diagnostics Vital Signs (24Hr): Vital Signs - 24 hr 03/30/24 07:39 03/30/24 20:00 03/30/24 20:11 Temperature 97.6 F 97.5 F Pulse Rate 68 61 61 Respiratory Rate 18 18 Blood Pressure 112/63 122/61 122/61 Pulse Oximetry 96 96 Oxygen Delivery Method Room Air Room Air BMI result Body Mass Index 40.5 Labs 03/22/24 21:02 03/25/24 15:39 Labs: Laboratory Results - last 48 hr 03/29/24 03/29/24 03/29/24 06:40 16:18 20:06 POC Glucose 115 174 H 138 H 03/30/24 03/30/24 03/30/24 05:45 11:14 16:09 POC Glucose 185 H 149 H 157 H 03/30/24 03/31/24 19:35 06:15 POC Glucose 145 H 143 H Imaging Radiology Impressions: ITS Impressions Chest X-Ray 03/23/24 01:46 IMPRESSION: There appears to be bronchial thickening which may be seen with bronchitis. There is no focal lung consolidation or pleural effusions Electronically signed by: Marcos Payne MD 03/23/2024 03:55 AM [facility] Medications Medications Current Medications Acetaminophen (Acetaminophen 325 Mg Tablet) 975 mg PO Q6H PRN PRN Reason: Pain Last Admin: 03/30/24 20:10 Dose: 975 mg Al Hydroxide/Mg Hydroxide (Magnesium Hydrox/Alum Hydrox 30 Ml Oral.Susp) 30 ml PO QID PRN PRN Reason: Heartburn Albuterol Sulfate (Albuterol Sulfate 90 Mcg 8 Gm Inhaler) 90 puff INHALE Q4H PRN PRN Reason: Wheezing, Last Admin: 03/31/24 02:03 Dose: 90 puff Atorvastatin Calcium (Atorvastatin Calcium 10 Mg Tablet) 5 mg PO DAILY [facility] Last Admin: 03/30/24 08:06 Dose: 5 mg Benztropine Mesylate (Benztropine Mesylate 1 Mg Tablet) 1 mg PO BID [facility] Last Admin: 03/30/24 20:10 Dose: 1 mg Cyanocobalamin (Cyanocobalamin (Vitamin B-12) 1,000 Mcg Tablet) 1,000 mcg PO DAILY [facility] Last Admin: 03/30/24 08:06 Dose: 1,000 mcg Divalproex Sodium (Divalproex Sodium 500 Mg Tablet.Dr) 500 mg PO BEDTIME [facility] Last Admin: 03/30/24 20:10 Dose: 500 mg Docusate Sodium (Docusate Sodium 100 Mg Capsule) 100 mg PO BID PRN PRN Reason: Constipation Fluticasone/Vilanterol (Fluticasone/Vilanterol 100/25 Blst.W.Dev) 1 puff INHALE RDAILY [facility] Last Admin: 03/30/24 08:10 Dose: 1 puff Guaifenesin (Guaifenesin 200 Mg/10 Ml 10 Ml Liquid) 10 ml PO Q6H PRN PRN Reason: Cough Last Admin: 03/30/24 08:10 Dose: 10 ml Guaifenesin (Guaifenesin 100 Mg/5 Ml 5 Ml Liquid) 5 ml PO Q6H PRN PRN Reason: Cough Last Admin: 03/30/24 20:09 Dose: 5 ml Hydroxyzine HCl (Hydroxyzine Hcl 50 Mg Tablet) 50 mg PO QID PRN PRN Reason: SEVERE Anxiety Last Admin: 03/30/24 20:10 Dose: 50 mg Hydroxyzine HCl (Hydroxyzine Hcl 25 Mg Tablet) 25 mg PO Q6H PRN PRN Reason: Anxiety Last Admin: 03/29/24 14:36 Dose: 25 mg Levetiracetam (Levetiracetam 500 Mg Tablet) 1,500 mg PO BID [facility] Last Admin: 03/30/24 20:09 Dose: 1,500 mg Levothyroxine Sodium (Levothyroxine Sodium 100 Mcg Tablet) 100 mcg PO DAILY@0600 [facility] Last Admin: 03/31/24 05:49 Dose: 100 mcg Lisinopril (Lisinopril 5 Mg Tablet) 5 mg PO DAILY [facility]; Protocol Last Admin: 03/30/24 08:05 Dose: 5 mg Magnesium Hydroxide (Milk Of Magnesia 30 Ml Oral.Susp) 30 ml PO DAILY PRN PRN Reason: Constipation Melatonin (Melatonin 3 Mg Tablet) 12 mg PO BEDTIME [facility] Last Admin: 03/30/24 20:09 Dose: 12 mg Metformin HCl (Metformin Hcl 1,000 Mg Tablet) 1,000 mg PO BID [facility] Last Admin: 03/30/24 20:10 Dose: 1,000 mg Mirabegron (Mirabegron 50 Mg Tab.Er.24h) 50 mg PO DAILY [facility] Last Admin: 03/30/24 08:06 Dose: 50 mg Nystatin (Nystatin Ointment 15 Gm Tube) 1 appl TOPICAL BID [facility]; Protocol Last Admin: 03/30/24 20:53 Dose: Not Given Nystatin/Triamcinolone Acetonide (Nystatin/Triamcinolone Oint 15 Gm Tube) 1 appl TOPICAL BID [facility]; Protocol Last Admin: 03/30/24 20:22 Dose: 1 appl Olanzapine (Olanzapine 5 Mg Tablet) 5 mg PO DAILY@1630 [facility] Last Admin: 03/30/24 16:24 Dose: 5 mg Propranolol HCl (Propranolol Hcl 10 Mg Tablet) 10 mg PO BID [facility]; Protocol Last Admin: 03/30/24 20:11 Dose: 10 mg Psyllium Hydrophilic Mucilloid (Psyllium Seed 3.7 Gm Packet) 3.7 gm PO BID [facility] Last Admin: 03/30/24 20:10 Dose: 3.7 gm Pyridoxine HCl (Pyridoxine Hcl (Vitamin B6) 50 Mg Tablet) 25 mg PO DAILY [facility] Last Admin: 03/30/24 08:05 Dose: 25 mg Senna (Sennosides 8.6 Mg Tablet) 17.2 mg PO BEDTIME PRN PRN Reason: Constipation Topiramate (Topiramate 25 Mg Tablet) 25 mg PO BID [facility] Last Admin: 03/30/24 20:10 Dose: 25 mg Trazodone HCl (Trazodone Hcl 50 Mg Tablet) 50 mg PO BEDTIME MRX1 PRN PRN Reason: Insomnia Vitamin D (Cholecalciferol (Vitamin D3) 25 Mcg Tablet) 50 mcg PO DAILY [facility] Last Admin: 03/30/24 08:05 Dose: 50 mcg Allergies Allergies Allergy/AdvReac Type Severity Reaction Status Date / Time oxcarbazepine Allergy Unknown Verified 03/22/24 20:38 [From Trileptal] peanut Allergy Unknown Verified 03/22/24 20:38 quetiapine [From Seroquel] Allergy Vomiting Verified 03/22/24 20:38 Assessment & Plan Assessment & Plan (1) Schizoaffective disorder: Status: Acute Code(s): F25.9 - Schizoaffective disorder, unspecified (2) HTN (hypertension): Status: Acute Code(s): I10 - Essential (primary) hypertension (3) Type 2 diabetes mellitus: Status: Acute Code(s): E11.9 - Type 2 diabetes mellitus without complications (4) Mild persistent asthma: Status: Acute Code(s): J45.30 - Mild persistent asthma, uncomplicated (5) Hypothyroidism: Status: Acute Code(s): E03.9 - Hypothyroidism, unspecified (6) Diabetic peripheral neuropathy: Status: Acute Code(s): E11.42 - Type 2 diabetes mellitus with diabetic polyneuropathy (7) CKD (chronic kidney disease): Status: Acute Code(s): N18.9 - Chronic kidney disease, unspecified (8) Seizure disorder: Status: Acute Code(s): G40.909 - Epilepsy, unspecified, not intractable, without status epilepticus Plan The patient is an elderly female with schizoaffective disorder and other medical comorbidities who was recently discharged from this facility for psychotic decompensation, stable but she did not receive most likely her Aristada injection in the community and went back grossly psychotic. On intake the patient was pleasant cooperative and could not understand why she was here. Plan 1. Gather collateral information. 2. The patient was able to contract for safety she will be on 15 minute checks. 3. Continue with regular medications. 4. Reassessment with results. 5. We are starting Abilify 10 mg p.o. at bedtime on March 28 since it is not clear if she received her Aristada the community. Later on we discontinue the Abilify since she received her Aristada injection after discharge last time. 6. Wound consult for 03/30 Reason for continued inpatient stay Substantial Risk for: inability to function, rapid decompensation and med/psych decompensation Time Spent With Patient Time: Total time managing care of this patient today _20___ minutes.
[2024-03-31 08:29] VITALS: BP 129/70; PULSE 80; RESP 16; TEMP 36.8; O2SAT 98
[2024-03-31] MEDS: levETIRAcetam 500 MG TABLET 1500 MG PO ×2 (08:33→19:55)
[2024-03-31] MEDS: Propranolol HCL 10 MG TABLET PO ×2 (08:33→19:55)
[2024-03-31] MEDS: metFORMIN HCl 1,000 MG TABLET 1000 MG PO ×2 (08:33→19:54)
[2024-03-31] MEDS: Psyllium seed 3.7 GM PACKET PO ×2 (08:33→19:55)
[2024-03-31] MEDS: Topiramate 25 MG TABLET PO ×2 (08:34→19:55)
[2024-03-31] MEDS: Cholecalciferol (Vitamin D3) 25 MCG TABLET 50 MCG PO (08:34)
[2024-03-31] MEDS: Cyanocobalamin (Vitamin B-12) 1,000 MCG TABLET 1000 MCG PO (08:34)
[2024-03-31] MEDS: Atorvastatin Calcium 10 MG TABLET 5 MG PO (08:34)
[2024-03-31] MEDS: lisinopriL 5 MG TABLET PO (08:35)
[2024-03-31] MEDS: Pyridoxine HCl (Vitamin B6) 50 MG TABLET 25 MG PO (08:35)
[2024-03-31] MEDS: Benztropine Mesylate 1 MG TABLET PO ×2 (08:35→19:55)
[2024-03-31] MEDS: Fluticasone/Vilanterol 100/25 BLST.W.DEV 1 PUFF INHALE (08:38)
[2024-03-31] MEDS: Mirabegron 50 MG TAB.ER.24H PO (08:54)
[2024-03-31] MEDS: Nystatin Ointment 15 GM TUBE 1 APPL TOPICAL (08:55)
[2024-03-31] MEDS: OLANZapine 5 MG TABLET PO (17:34)
[2024-03-31] MEDS: Melatonin 3 MG TABLET 12 MG PO (19:54)
[2024-03-31] MEDS: Divalproex Sodium 500 MG TABLET.DR PO (19:55)
[2024-03-31] MEDS: guaiFENesin 100 MG/5 ML 5 ML LIQUID PO (19:57)
[2024-03-31 20:00] VITALS: BP 129/64; PULSE 67; RESP 18; TEMP 36.2; O2SAT 98
[2024-04-01] MEDS: Albuterol Sulfate 90 MCG 8 GM INHALER 90 PUFF INHALE ×2 (03:07→20:16)
[2024-04-01] MEDS: guaiFENesin 200 MG/10 ML 10 ML LIQUID PO (03:41)
[2024-04-01] MEDS: Acetaminophen 325 MG TABLET 975 MG PO ×2 (03:41→20:20)
[2024-04-01] MEDS: Levothyroxine Sodium 100 MCG TABLET PO (05:33)
[2024-04-01 05:54] LABS: Glucose, Whole Blood 130 mg/dL (60-115)
[2024-04-01 08:10] VITALS: BP 123/66; PULSE 82; RESP 19; TEMP 36.4; O2SAT 96
[2024-04-01 08:13] LABS: Creatinine Clr Calc Pharmacy 59.9; Estimated Glomerular Filt Rate 55
[2024-04-01] MEDS: Topiramate 25 MG TABLET PO ×2 (08:28→20:18)
[2024-04-01] MEDS: Pyridoxine HCl (Vitamin B6) 50 MG TABLET 25 MG PO (08:28)
[2024-04-01] MEDS: levETIRAcetam 500 MG TABLET 1500 MG PO ×2 (08:28→20:18)
[2024-04-01] MEDS: metFORMIN HCl 1,000 MG TABLET 1000 MG PO ×2 (08:29→20:17)
[2024-04-01] MEDS: lisinopriL 5 MG TABLET PO (08:29)
[2024-04-01] MEDS: Propranolol HCL 10 MG TABLET PO ×2 (08:29→20:17)
[2024-04-01] MEDS: Cholecalciferol (Vitamin D3) 25 MCG TABLET 50 MCG PO (08:30)
[2024-04-01] MEDS: Cyanocobalamin (Vitamin B-12) 1,000 MCG TABLET 1000 MCG PO (08:30)
[2024-04-01] MEDS: Mirabegron 50 MG TAB.ER.24H PO (08:30)
[2024-04-01] MEDS: Benztropine Mesylate 1 MG TABLET PO ×2 (08:30→20:17)
[2024-04-01] MEDS: Atorvastatin Calcium 10 MG TABLET 5 MG PO (08:31)
[2024-04-01] MEDS: Fluticasone/Vilanterol 100/25 BLST.W.DEV 1 PUFF INHALE (08:32)
[2024-04-01] MEDS: Psyllium seed 3.7 GM PACKET PO ×2 (08:32→20:18)
[2024-04-01] MEDS: Sennosides 8.6 MG TABLET 17.2 MG PO (09:32)
--- NOTE | 2024-04-01 13:45 | P.PNPSI_ITS ---
Subjective Subjective Date of Service: 04/01/24 Reason For Visit: psychosis Subjective Notes: Conditional Voluntary Interim History: The nursing staff reported the patient is able to take her medications she looks less irritable, the patient reported to the staff that she always have auditory hallucinations with derogatory content but she does not responding to that she has good insight into her condition. The social media senior associate reported that we will contact [facility] for aftercare and discharge planning. On interview the patient denies new symptoms. Mental Status Exam Mental Status Exam Patient Appearance: Well Grooomed and Appropriate Patient Orientation: Person and Situation Level of Consciousness: Awake and Appropriate Patient Behavior: Guarded and Passive Mood Description: Withdrawn Affect Description: Constricted Patient Cognition Impaired: Yes Ability to Follow Directions: Good Speech Pattern: Clear Hallucinations: Auditory Delusions: Paranoid Ideation and Ideas of Reference Thought Process: Distracted and Slowed Thinking Thought Content: positive for [place] and positive for Poverty of Content Judgement: Fair Diagnostics Vital Signs (24Hr): Vital Signs - 24 hr 03/31/24 20:00 04/01/24 08:10 Temperature 97.2 F 97.6 F Pulse Rate 67 82 Respiratory Rate 18 19 Blood Pressure 129/64 123/66 Pulse Oximetry 98 96 Oxygen Delivery Method Room Air Room Air BMI result Body Mass Index 40.5 Labs 03/22/24 21:02 04/01/24 07:57 Labs: Laboratory Results - last 48 hr 03/30/24 03/30/24 03/31/24 16:09 19:35 06:15 Creatinine Estim Creat Clear Calc Estimated GFR POC Glucose 157 H 145 H 143 H 04/01/24 04/01/24 05:51 07:57 Creatinine 1.01 Estim Creat Clear Calc 59.9 Estimated GFR 55 POC Glucose 130 H Imaging Radiology Impressions: ITS Impressions Chest X-Ray 03/23/24 01:46 IMPRESSION: There appears to be bronchial thickening which may be seen with bronchitis. There is no focal lung consolidation or pleural effusions Electronically signed by: Marcos Payne MD 03/23/2024 03:55 AM [facility] Medications Medications Current Medications Acetaminophen (Acetaminophen 325 Mg Tablet) 975 mg PO Q6H PRN PRN Reason: Pain Last Admin: 04/01/24 03:41 Dose: 975 mg Al Hydroxide/Mg Hydroxide (Magnesium Hydrox/Alum Hydrox 30 Ml Oral.Susp) 30 ml PO QID PRN PRN Reason: Heartburn Albuterol Sulfate (Albuterol Sulfate 90 Mcg 8 Gm Inhaler) 90 puff INHALE Q4H PRN PRN Reason: Wheezing, Last Admin: 04/01/24 03:07 Dose: 90 puff Atorvastatin Calcium (Atorvastatin Calcium 10 Mg Tablet) 5 mg PO DAILY [facility] Last Admin: 04/01/24 08:31 Dose: 5 mg Benztropine Mesylate (Benztropine Mesylate 1 Mg Tablet) 1 mg PO BID [facility] Last Admin: 04/01/24 08:30 Dose: 1 mg Cyanocobalamin (Cyanocobalamin (Vitamin B-12) 1,000 Mcg Tablet) 1,000 mcg PO DAILY [facility] Last Admin: 04/01/24 08:30 Dose: 1,000 mcg Divalproex Sodium (Divalproex Sodium 500 Mg Tablet.Dr) 500 mg PO BEDTIME [facility] Last Admin: 03/31/24 19:55 Dose: 500 mg Docusate Sodium (Docusate Sodium 100 Mg Capsule) 100 mg PO BID PRN PRN Reason: Constipation Fluticasone/Vilanterol (Fluticasone/Vilanterol 100/25 Blst.W.Dev) 1 puff INHALE RDAILY [facility] Last Admin: 04/01/24 08:32 Dose: 1 puff Guaifenesin (Guaifenesin 200 Mg/10 Ml 10 Ml Liquid) 10 ml PO Q6H PRN PRN Reason: Cough Last Admin: 04/01/24 03:41 Dose: 10 ml Guaifenesin (Guaifenesin 100 Mg/5 Ml 5 Ml Liquid) 5 ml PO Q6H PRN PRN Reason: Cough Last Admin: 03/31/24 19:57 Dose: 5 ml Hydroxyzine HCl (Hydroxyzine Hcl 50 Mg Tablet) 50 mg PO QID PRN PRN Reason: SEVERE Anxiety Last Admin: 03/30/24 20:10 Dose: 50 mg Hydroxyzine HCl (Hydroxyzine Hcl 25 Mg Tablet) 25 mg PO Q6H PRN PRN Reason: Anxiety Last Admin: 03/29/24 14:36 Dose: 25 mg Levetiracetam (Levetiracetam 500 Mg Tablet) 1,500 mg PO BID [facility] Last Admin: 04/01/24 08:28 Dose: 1,500 mg Levothyroxine Sodium (Levothyroxine Sodium 100 Mcg Tablet) 100 mcg PO DAILY@0600 [facility] Last Admin: 04/01/24 05:33 Dose: 100 mcg Lisinopril (Lisinopril 5 Mg Tablet) 5 mg PO DAILY [facility]; Protocol Last Admin: 04/01/24 08:29 Dose: 5 mg Magnesium Hydroxide (Milk Of Magnesia 30 Ml Oral.Susp) 30 ml PO DAILY PRN PRN Reason: Constipation Melatonin (Melatonin 3 Mg Tablet) 12 mg PO BEDTIME [facility] Last Admin: 03/31/24 19:54 Dose: 12 mg Metformin HCl (Metformin Hcl 1,000 Mg Tablet) 1,000 mg PO BID [facility] Last Admin: 04/01/24 08:29 Dose: 1,000 mg Mirabegron (Mirabegron 50 Mg Tab.Er.24h) 50 mg PO DAILY [facility] Last Admin: 04/01/24 08:30 Dose: 50 mg Nystatin (Nystatin Ointment 15 Gm Tube) 1 appl TOPICAL BID [facility]; Protocol Last Admin: 03/31/24 20:03 Dose: Not Given Nystatin/Triamcinolone Acetonide (Nystatin/Triamcinolone Oint 15 Gm Tube) 1 appl TOPICAL BID [facility]; Protocol Last Admin: 03/31/24 20:03 Dose: Not Given Olanzapine (Olanzapine 5 Mg Tablet) 5 mg PO DAILY@1630 [facility] Last Admin: 03/31/24 17:34 Dose: 5 mg Propranolol HCl (Propranolol Hcl 10 Mg Tablet) 10 mg PO BID [facility]; Protocol Last Admin: 04/01/24 08:29 Dose: 10 mg Psyllium Hydrophilic Mucilloid (Psyllium Seed 3.7 Gm Packet) 3.7 gm PO BID [facility] Last Admin: 04/01/24 08:32 Dose: 3.7 gm Pyridoxine HCl (Pyridoxine Hcl (Vitamin B6) 50 Mg Tablet) 25 mg PO DAILY [facility] Last Admin: 04/01/24 08:28 Dose: 25 mg Senna (Sennosides 8.6 Mg Tablet) 17.2 mg PO BEDTIME PRN PRN Reason: Constipation Last Admin: 04/01/24 09:32 Dose: 17.2 mg Topiramate (Topiramate 25 Mg Tablet) 25 mg PO BID [facility] Last Admin: 04/01/24 08:28 Dose: 25 mg Trazodone HCl (Trazodone Hcl 50 Mg Tablet) 50 mg PO BEDTIME [facility]X1 PRN PRN Reason: Insomnia Vitamin D (Cholecalciferol (Vitamin D3) 25 Mcg Tablet) 50 mcg PO DAILY [facility] Last Admin: 04/01/24 08:30 Dose: 50 mcg Allergies Allergies Allergy/AdvReac Type Severity Reaction Status Date / Time oxcarbazepine Allergy Unknown Verified 03/22/24 20:38 [From Trileptal] peanut Allergy Unknown Verified 03/22/24 20:38 quetiapine [From Seroquel] Allergy Vomiting Verified 03/22/24 20:38 Assessment & Plan Assessment & Plan (1) Schizoaffective disorder: Status: Acute Code(s): F25.9 - Schizoaffective disorder, unspecified (2) HTN (hypertension): Status: Acute Code(s): I10 - Essential (primary) hypertension (3) Type 2 diabetes mellitus: Status: Acute Code(s): E11.9 - Type 2 diabetes mellitus without complications (4) Mild persistent asthma: Status: Acute Code(s): J45.30 - Mild persistent asthma, uncomplicated (5) Hypothyroidism: Status: Acute Code(s): E03.9 - Hypothyroidism, unspecified (6) Diabetic peripheral neuropathy: Status: Acute Code(s): E11.42 - Type 2 diabetes mellitus with diabetic polyneuropathy (7) CKD (chronic kidney disease): Status: Acute Code(s): N18.9 - Chronic kidney disease, unspecified (8) Seizure disorder: Status: Acute Code(s): G40.909 - Epilepsy, unspecified, not intractable, without status epilepticus Plan The patient is an elderly female with schizoaffective disorder and other medical comorbidities who was recently discharged from this facility for psychotic decompensation, stable but she did not receive most likely her Aristada injection in the community and went back grossly psychotic. On intake the patient was pleasant cooperative and could not understand why she was here. Plan 1. Gather collateral information. 2. The patient was able to contract for safety she will be on 15 minute checks. 3. Continue with regular medications. 4. Reassessment with results. 5. We are starting Abilify 10 mg p.o. at bedtime on March 28 since it is not clear if she received her Aristada the community. Later on we discontinue the Abilify since she received her Aristada injection after discharge last time. 6. Wound consult for 03/30 Reason for continued inpatient stay Substantial Risk for: inability to function, rapid decompensation and med/psych decompensation Time Spent With Patient Time: Total time managing care of this patient today ___20_ minutes.
[2024-04-01] MEDS: OLANZapine 5 MG TABLET PO (15:44)
[2024-04-01 20:00] VITALS: BP 100/52; PULSE 90; RESP 18; TEMP 36.7; O2SAT 95
[2024-04-01] MEDS: Divalproex Sodium 500 MG TABLET.DR PO (20:17)
[2024-04-01] MEDS: Melatonin 3 MG TABLET 12 MG PO (20:18)
[2024-04-01] MEDS: hydrOXYzine HCL 50 MG TABLET PO (20:18)
[2024-04-01] MEDS: Milk of Magnesia 30 ML ORAL.SUSP PO (20:21)
[2024-04-01] MEDS: Nystatin Ointment 15 GM TUBE 1 APPL TOPICAL (20:25)
[2024-04-02] MEDS: Levothyroxine Sodium 100 MCG TABLET PO (05:27)
[2024-04-02] MEDS: Acetaminophen 325 MG TABLET 975 MG PO ×2 (05:29→20:45)
[2024-04-02 06:24] LABS: Glucose, Whole Blood 186 mg/dL (60-115)
[2024-04-02 07:55] VITALS: BP 110/62; PULSE 64; RESP 18; TEMP 36.6; O2SAT 98
[2024-04-02] MEDS: Atorvastatin Calcium 10 MG TABLET 5 MG PO (08:58)
[2024-04-02] MEDS: lisinopriL 5 MG TABLET PO (08:58)
[2024-04-02] MEDS: levETIRAcetam 500 MG TABLET 1500 MG PO ×2 (09:00→20:46)
[2024-04-02] MEDS: Cholecalciferol (Vitamin D3) 25 MCG TABLET 50 MCG PO (09:00)
[2024-04-02] MEDS: Propranolol HCL 10 MG TABLET PO ×2 (09:00→20:47)
[2024-04-02] MEDS: metFORMIN HCl 1,000 MG TABLET 1000 MG PO ×2 (09:01→20:47)
[2024-04-02] MEDS: Mirabegron 50 MG TAB.ER.24H PO (09:01)
[2024-04-02] MEDS: Psyllium seed 3.7 GM PACKET PO (09:01)
[2024-04-02] MEDS: Pyridoxine HCl (Vitamin B6) 50 MG TABLET 25 MG PO (09:01)
[2024-04-02] MEDS: Benztropine Mesylate 1 MG TABLET PO ×2 (09:01→20:47)
[2024-04-02] MEDS: Fluticasone/Vilanterol 100/25 BLST.W.DEV 1 PUFF INHALE (09:02)
[2024-04-02] MEDS: Cyanocobalamin (Vitamin B-12) 1,000 MCG TABLET 1000 MCG PO (09:02)
[2024-04-02] MEDS: Nystatin Ointment 15 GM TUBE 1 APPL TOPICAL ×2 (09:08→20:57)
[2024-04-02] MEDS: Topiramate 25 MG TABLET PO ×2 (09:22→20:47)
--- NOTE | 2024-04-02 16:09 | P.PNPSI_ITS ---
Subjective Subjective Date of Service: 04/02/24 Reason For Visit: psychosis Subjective Notes: Conditional Voluntary Interim History: The nursing staff reported the patient vomited in the morning, she had been isolated with shortness of breath but used her inhaler. The healthcare proxy was invoked before she was here. On interview the patient denies new symptoms, we are going to start waiting on discharge planning. Mental Status Exam Mental Status Exam Patient Appearance: Appropriate Patient Orientation: Person and Situation Level of Consciousness: Awake and Appropriate Patient Behavior: Guarded and Passive Mood Description: Withdrawn Affect Description: Constricted Patient Cognition Impaired: Yes Ability to Follow Directions: Good Speech Pattern: Clear Hallucinations: None Delusions: Paranoid Ideation and Ideas of Reference Thought Process: Distracted and Slowed Thinking Thought Content: positive for [place] and positive for Poverty of Content Judgement: Fair Diagnostics Vital Signs (24Hr): Vital Signs - 24 hr 04/01/24 20:00 04/02/24 07:55 Temperature 98.0 F 97.9 F Pulse Rate 90 64 Respiratory Rate 18 18 Blood Pressure 100/52 L 110/62 Pulse Oximetry 95 98 Oxygen Delivery Method Room Air Room Air BMI result Body Mass Index 40.5 Labs 03/22/24 21:02 04/01/24 07:57 Labs: Laboratory Results - last 48 hr 04/01/24 04/01/24 04/02/24 05:51 07:57 05:45 Creatinine 1.01 Estim Creat Clear Calc 59.9 Estimated GFR 55 POC Glucose 130 H 186 H Imaging Radiology Impressions: ITS Impressions Chest X-Ray 03/23/24 01:46 IMPRESSION: There appears to be bronchial thickening which may be seen with bronchitis. There is no focal lung consolidation or pleural effusions Electronically signed by: Marcos Payne MD 03/23/2024 03:[address] [facility] Medications Medications Current Medications Acetaminophen (Acetaminophen 325 Mg Tablet) 975 mg PO Q6H PRN PRN Reason: Pain Last Admin: 04/02/24 05:29 Dose: 975 mg Al Hydroxide/Mg Hydroxide (Magnesium Hydrox/Alum Hydrox 30 Ml Oral.Susp) 30 ml PO QID PRN PRN Reason: Heartburn Albuterol Sulfate (Albuterol Sulfate 90 Mcg 8 Gm Inhaler) 90 puff INHALE Q4H PRN PRN Reason: Wheezing, Last Admin: 04/01/24 20:16 Dose: 90 puff Atorvastatin Calcium (Atorvastatin Calcium 10 Mg Tablet) 5 mg PO DAILY [facility] Last Admin: 04/02/24 08:58 Dose: 5 mg Benztropine Mesylate (Benztropine Mesylate 1 Mg Tablet) 1 mg PO BID [facility] Last Admin: 04/02/24 09:01 Dose: 1 mg Cyanocobalamin (Cyanocobalamin (Vitamin B-12) 1,000 Mcg Tablet) 1,000 mcg PO DAILY [facility] Last Admin: 04/02/24 09:02 Dose: 1,000 mcg Divalproex Sodium (Divalproex Sodium 500 Mg Tablet.Dr) 500 mg PO BEDTIME [facility] Last Admin: 04/01/24 20:17 Dose: 500 mg Docusate Sodium (Docusate Sodium 100 Mg Capsule) 100 mg PO BID PRN PRN Reason: Constipation Fluticasone/Vilanterol (Fluticasone/Vilanterol 100/25 Blst.W.Dev) 1 puff INHALE RDAILY [facility] Last Admin: 04/02/24 09:02 Dose: 1 puff Guaifenesin (Guaifenesin 200 Mg/10 Ml 10 Ml Liquid) 10 ml PO Q6H PRN PRN Reason: Cough Last Admin: 04/01/24 03:41 Dose: 10 ml Guaifenesin (Guaifenesin 100 Mg/5 Ml 5 Ml Liquid) 5 ml PO Q6H PRN PRN Reason: Cough Last Admin: 03/31/24 19:57 Dose: 5 ml Hydroxyzine HCl (Hydroxyzine Hcl 50 Mg Tablet) 50 mg PO QID PRN PRN Reason: SEVERE Anxiety Last Admin: 04/01/24 20:18 Dose: 50 mg Hydroxyzine HCl (Hydroxyzine Hcl 25 Mg Tablet) 25 mg PO Q6H PRN PRN Reason: Anxiety Last Admin: 03/29/24 14:36 Dose: 25 mg Levetiracetam (Levetiracetam 500 Mg Tablet) 1,500 mg PO BID [facility] Last Admin: 04/02/24 09:00 Dose: 1,500 mg Levothyroxine Sodium (Levothyroxine Sodium 100 Mcg Tablet) 100 mcg PO DAILY@0600 [facility] Last Admin: 04/02/24 05:27 Dose: 100 mcg Lisinopril (Lisinopril 5 Mg Tablet) 5 mg PO DAILY [facility]; Protocol Last Admin: 04/02/24 08:58 Dose: 5 mg Magnesium Hydroxide (Milk Of Magnesia 30 Ml Oral.Susp) 30 ml PO DAILY PRN PRN Reason: Constipation Last Admin: 04/01/24 20:21 Dose: 30 ml Melatonin (Melatonin 3 Mg Tablet) 12 mg PO BEDTIME [facility] Last Admin: 04/01/24 20:18 Dose: 12 mg Metformin HCl (Metformin Hcl 1,000 Mg Tablet) 1,000 mg PO BID [facility] Last Admin: 04/02/24 09:01 Dose: 1,000 mg Mirabegron (Mirabegron 50 Mg Tab.Er.24h) 50 mg PO DAILY [facility] Last Admin: 04/02/24 09:01 Dose: 50 mg Nystatin (Nystatin Ointment 15 Gm Tube) 1 appl TOPICAL BID [facility]; Protocol Last Admin: 04/02/24 09:08 Dose: 1 appl Nystatin/Triamcinolone Acetonide (Nystatin/Triamcinolone Oint 15 Gm Tube) 1 appl TOPICAL BID [facility]; Protocol Last Admin: 04/02/24 09:09 Dose: 1 appl Olanzapine (Olanzapine 5 Mg Tablet) 5 mg PO DAILY@1630 [facility] Last Admin: 04/01/24 15:44 Dose: 5 mg Propranolol HCl (Propranolol Hcl 10 Mg Tablet) 10 mg PO BID [facility]; Protocol Last Admin: 04/02/24 09:00 Dose: 10 mg Psyllium Hydrophilic Mucilloid (Psyllium Seed 3.7 Gm Packet) 3.7 gm PO BID [facility] Last Admin: 04/02/24 09:01 Dose: 3.7 gm Pyridoxine HCl (Pyridoxine Hcl (Vitamin B6) 50 Mg Tablet) 25 mg PO DAILY [facility] Last Admin: 04/02/24 09:01 Dose: 25 mg Senna (Sennosides 8.6 Mg Tablet) 17.2 mg PO BEDTIME PRN PRN Reason: Constipation Last Admin: 04/01/24 09:32 Dose: 17.2 mg Topiramate (Topiramate 25 Mg Tablet) 25 mg PO BID [facility] Last Admin: 04/02/24 09:22 Dose: 25 mg Trazodone HCl (Trazodone Hcl 50 Mg Tablet) 50 mg PO BEDTIME MRX1 PRN PRN Reason: Insomnia Vitamin D (Cholecalciferol (Vitamin D3) 25 Mcg Tablet) 50 mcg PO DAILY [facility] Last Admin: 04/02/24 09:00 Dose: 50 mcg Allergies Allergies Allergy/AdvReac Type Severity Reaction Status Date / Time oxcarbazepine Allergy Unknown Verified 03/22/24 20:38 [From Trileptal] peanut Allergy Unknown Verified 03/22/24 20:38 quetiapine [From Seroquel] Allergy Vomiting Verified 03/22/24 20:38 Assessment & Plan Assessment & Plan (1) Schizoaffective disorder: Status: Acute Code(s): F25.9 - Schizoaffective disorder, unspecified (2) HTN (hypertension): Status: Acute Code(s): I10 - Essential (primary) hypertension (3) Type 2 diabetes mellitus: Status: Acute Code(s): E11.9 - Type 2 diabetes mellitus without complications (4) Mild persistent asthma: Status: Acute Code(s): J45.30 - Mild persistent asthma, uncomplicated (5) Hypothyroidism: Status: Acute Code(s): E03.9 - Hypothyroidism, unspecified (6) Diabetic peripheral neuropathy: Status: Acute Code(s): E11.42 - Type 2 diabetes mellitus with diabetic polyneuropathy (7) CKD (chronic kidney disease): Status: Acute Code(s): N18.9 - Chronic kidney disease, unspecified (8) Seizure disorder: Status: Acute Code(s): G40.909 - Epilepsy, unspecified, not intractable, without status epilepticus Plan The patient is an elderly female with schizoaffective disorder and other medical comorbidities who was recently discharged from this facility for psychotic decompensation, stable but she did not receive most likely her Aristada injection in the community and went back grossly psychotic. On intake the patient was pleasant cooperative and could not understand why she was here. Plan 1. Gather collateral information. 2. The patient was able to contract for safety she will be on 15 minute checks. 3. Continue with regular medications. 4. Reassessment with results. 5. We are starting Abilify 10 mg p.o. at bedtime on March 28 since it is not clear if she received her Aristada the community. Later on we discontinue the Abilify since she received her Aristada injection after discharge last time. 6. Wound consult for 03/30 Reason for continued inpatient stay Substantial Risk for: inability to function, rapid decompensation and med/psych decompensation Time Spent With Patient Time: Total time managing care of this patient today __20__ minutes.
[2024-04-02] MEDS: OLANZapine 5 MG TABLET PO (16:33)
[2024-04-02 19:59] VITALS: BP 124/57; PULSE 69; RESP 18; TEMP 36.6; O2SAT 96
[2024-04-02] MEDS: guaiFENesin 100 MG/5 ML 5 ML LIQUID PO (20:46)
[2024-04-02] MEDS: Melatonin 3 MG TABLET 12 MG PO (20:46)
[2024-04-02] MEDS: Sennosides 8.6 MG TABLET 17.2 MG PO (20:46)
[2024-04-02] MEDS: hydrOXYzine HCL 50 MG TABLET PO (20:46)
[2024-04-02] MEDS: Divalproex Sodium 500 MG TABLET.DR PO (20:46)
[2024-04-03] MEDS: traZODone HCL 50 MG TABLET PO ×2 (00:23→20:57)
[2024-04-03] MEDS: guaiFENesin 100 MG/5 ML 5 ML LIQUID PO ×2 (05:39→20:55)
[2024-04-03] MEDS: Levothyroxine Sodium 100 MCG TABLET PO (05:39)
[2024-04-03 06:41] LABS: Glucose, Whole Blood 180 mg/dL (60-115)
[2024-04-03 07:55] VITALS: BP 133/67; PULSE 70; RESP 18; TEMP 36.8; O2SAT 97
[2024-04-03] MEDS: levETIRAcetam 500 MG TABLET 1500 MG PO ×2 (08:24→20:55)
[2024-04-03] MEDS: Cholecalciferol (Vitamin D3) 25 MCG TABLET 50 MCG PO (08:24)
[2024-04-03] MEDS: Cyanocobalamin (Vitamin B-12) 1,000 MCG TABLET 1000 MCG PO (08:24)
[2024-04-03] MEDS: Topiramate 25 MG TABLET PO ×2 (08:24→20:57)
[2024-04-03] MEDS: Mirabegron 50 MG TAB.ER.24H PO (08:25)
[2024-04-03] MEDS: Atorvastatin Calcium 10 MG TABLET 5 MG PO (08:25)
[2024-04-03] MEDS: Benztropine Mesylate 1 MG TABLET PO ×2 (08:25→20:57)
[2024-04-03] MEDS: metFORMIN HCl 1,000 MG TABLET 1000 MG PO ×2 (08:25→20:56)
[2024-04-03] MEDS: lisinopriL 5 MG TABLET PO (08:25)
[2024-04-03] MEDS: Propranolol HCL 10 MG TABLET PO ×2 (08:25→20:56)
[2024-04-03] MEDS: Pyridoxine HCl (Vitamin B6) 50 MG TABLET 25 MG PO (08:26)
[2024-04-03] MEDS: Nystatin Ointment 15 GM TUBE 1 APPL TOPICAL ×2 (08:30→20:54)
[2024-04-03] MEDS: Fluticasone/Vilanterol 100/25 BLST.W.DEV 1 PUFF INHALE (08:30)
--- NOTE | 2024-04-03 13:18 | P.PNPSI_ITS ---
Subjective Subjective Date of Service: 04/03/24 Reason For Visit: psychosis Subjective Notes: Conditional Voluntary Interim History: The nursing staff reported the patient had been irritable in the morning compliant with her medications. The occupational therapist reported that she does well in groups she was seen talking to cali, his imaginary friend due to psychosis. The social problems specialist reported they are going to contact [facility] for placement. We are adding a 2nd dose of Zyprexa at 5 mg p.o. q.h.s. Mental Status Exam Mental Status Exam Patient Appearance: Appropriate Patient Orientation: Person and Situation Level of Consciousness: Awake and Appropriate Patient Behavior: Guarded and Passive Mood Description: Withdrawn Affect Description: Constricted Patient Cognition Impaired: Yes Ability to Follow Directions: Good Speech Pattern: Clear Hallucinations: Auditory Delusions: Paranoid Ideation and Ideas of Reference Thought Process: Distracted and Slowed Thinking Thought Content: positive for [place] and positive for Perseveration Judgement: Poor Diagnostics Vital Signs (24Hr): Vital Signs - 24 hr 04/02/24 19:59 04/03/24 07:55 Temperature 98 F 98.2 F Pulse Rate 69 70 Respiratory Rate 18 18 Blood Pressure 124/57 L 133/67 Pulse Oximetry 96 97 Oxygen Delivery Method Room Air Room Air BMI result Body Mass Index 40.5 Labs 03/22/24 21:02 04/01/24 07:57 Labs: Laboratory Results - last 48 hr 04/02/24 04/03/24 05:45 06:12 POC Glucose 186 H 180 H Imaging Radiology Impressions: ITS Impressions Chest X-Ray 03/23/24 01:46 IMPRESSION: There appears to be bronchial thickening which may be seen with bronchitis. There is no focal lung consolidation or pleural effusions Electronically signed by: Marcos Payne MD 03/23/2024 03:55 AM [facility] Medications Medications Current Medications Acetaminophen (Acetaminophen 325 Mg Tablet) 975 mg PO Q6H PRN PRN Reason: Pain Last Admin: 04/02/24 20:45 Dose: 975 mg Al Hydroxide/Mg Hydroxide (Magnesium Hydrox/Alum Hydrox 30 Ml Oral.Susp) 30 ml PO QID PRN PRN Reason: Heartburn Albuterol Sulfate (Albuterol Sulfate 90 Mcg 8 Gm Inhaler) 90 puff INHALE Q4H PRN PRN Reason: Wheezing, Last Admin: 04/01/24 20:16 Dose: 90 puff Atorvastatin Calcium (Atorvastatin Calcium 10 Mg Tablet) 5 mg PO DAILY [facility] Last Admin: 04/03/24 08:25 Dose: 5 mg Benztropine Mesylate (Benztropine Mesylate 1 Mg Tablet) 1 mg PO BID [facility] Last Admin: 04/03/24 08:25 Dose: 1 mg Cyanocobalamin (Cyanocobalamin (Vitamin B-12) 1,000 Mcg Tablet) 1,000 mcg PO DAILY [facility] Last Admin: 04/03/24 08:24 Dose: 1,000 mcg Divalproex Sodium (Divalproex Sodium 500 Mg Tablet.Dr) 500 mg PO BEDTIME [facility] Last Admin: 04/02/24 20:46 Dose: 500 mg Docusate Sodium (Docusate Sodium 100 Mg Capsule) 100 mg PO BID PRN PRN Reason: Constipation Fluticasone/Vilanterol (Fluticasone/Vilanterol 100/25 Blst.W.Dev) 1 puff INHALE RDAILY [facility] Last Admin: 04/03/24 08:30 Dose: 1 puff Guaifenesin (Guaifenesin 200 Mg/10 Ml 10 Ml Liquid) 10 ml PO Q6H PRN PRN Reason: Cough Last Admin: 04/01/24 03:41 Dose: 10 ml Guaifenesin (Guaifenesin 100 Mg/5 Ml 5 Ml Liquid) 5 ml PO Q6H PRN PRN Reason: Cough Last Admin: 04/03/24 05:39 Dose: 5 ml Hydroxyzine HCl (Hydroxyzine Hcl 50 Mg Tablet) 50 mg PO QID PRN PRN Reason: SEVERE Anxiety Last Admin: 04/02/24 20:46 Dose: 50 mg Hydroxyzine HCl (Hydroxyzine Hcl 25 Mg Tablet) 25 mg PO Q6H PRN PRN Reason: Anxiety Last Admin: 03/29/24 14:36 Dose: 25 mg Levetiracetam (Levetiracetam 500 Mg Tablet) 1,500 mg PO BID [facility] Last Admin: 04/03/24 08:24 Dose: 1,500 mg Levothyroxine Sodium (Levothyroxine Sodium 100 Mcg Tablet) 100 mcg PO DAILY@0600 [facility] Last Admin: 04/03/24 05:39 Dose: 100 mcg Lisinopril (Lisinopril 5 Mg Tablet) 5 mg PO DAILY [facility]; Protocol Last Admin: 04/03/24 08:25 Dose: 5 mg Magnesium Hydroxide (Milk Of Magnesia 30 Ml Oral.Susp) 30 ml PO DAILY PRN PRN Reason: Constipation Last Admin: 04/01/24 20:21 Dose: 30 ml Melatonin (Melatonin 3 Mg Tablet) 12 mg PO BEDTIME [facility] Last Admin: 04/02/24 20:46 Dose: 12 mg Metformin HCl (Metformin Hcl 1,000 Mg Tablet) 1,000 mg PO BID [facility] Last Admin: 04/03/24 08:25 Dose: 1,000 mg Mirabegron (Mirabegron 50 Mg Tab.Er.24h) 50 mg PO DAILY [facility] Last Admin: 04/03/24 08:25 Dose: 50 mg Nystatin (Nystatin Ointment 15 Gm Tube) 1 appl TOPICAL BID [facility]; Protocol Last Admin: 04/03/24 08:30 Dose: 1 appl Nystatin/Triamcinolone Acetonide (Nystatin/Triamcinolone Oint 15 Gm Tube) 1 appl TOPICAL BID [facility]; Protocol Last Admin: 04/03/24 08:36 Dose: 1 appl Olanzapine (Olanzapine 5 Mg Tablet) 5 mg PO DAILY@1630 [facility] Last Admin: 04/02/24 16:33 Dose: 5 mg Olanzapine (Olanzapine 5 Mg Tablet) 5 mg PO BEDTIME [facility] Propranolol HCl (Propranolol Hcl 10 Mg Tablet) 10 mg PO BID [facility]; Protocol Last Admin: 04/03/24 08:25 Dose: 10 mg Psyllium Hydrophilic Mucilloid (Psyllium Seed 3.7 Gm Packet) 3.7 gm PO BID [facility] Last Admin: 04/03/24 08:35 Dose: Not Given Pyridoxine HCl (Pyridoxine Hcl (Vitamin B6) 50 Mg Tablet) 25 mg PO DAILY [facility] Last Admin: 04/03/24 08:26 Dose: 25 mg Senna (Sennosides 8.6 Mg Tablet) 17.2 mg PO BEDTIME PRN PRN Reason: Constipation Last Admin: 04/02/24 20:46 Dose: 17.2 mg Topiramate (Topiramate 25 Mg Tablet) 25 mg PO BID [facility] Last Admin: 04/03/24 08:24 Dose: 25 mg Trazodone HCl (Trazodone Hcl 50 Mg Tablet) 50 mg PO BEDTIME MRX1 PRN PRN Reason: Insomnia Last Admin: 04/03/24 00:23 Dose: 50 mg Vitamin D (Cholecalciferol (Vitamin D3) 25 Mcg Tablet) 50 mcg PO DAILY [facility] Last Admin: 04/03/24 08:24 Dose: 50 mcg Allergies Allergies Allergy/AdvReac Type Severity Reaction Status Date / Time oxcarbazepine Allergy Unknown Verified 03/22/24 20:38 [From Trileptal] peanut Allergy Unknown Verified 03/22/24 20:38 quetiapine [From Seroquel] Allergy Vomiting Verified 03/22/24 20:38 Assessment & Plan Assessment & Plan (1) Schizoaffective disorder: Status: Acute Code(s): F25.9 - Schizoaffective disorder, unspecified (2) HTN (hypertension): Status: Acute Code(s): I10 - Essential (primary) hypertension (3) Type 2 diabetes mellitus: Status: Acute Code(s): E11.9 - Type 2 diabetes mellitus without complications (4) Mild persistent asthma: Status: Acute Code(s): J45.30 - Mild persistent asthma, uncomplicated (5) Hypothyroidism: Status: Acute Code(s): E03.9 - Hypothyroidism, unspecified (6) Diabetic peripheral neuropathy: Status: Acute Code(s): E11.42 - Type 2 diabetes mellitus with diabetic polyneuropathy (7) CKD (chronic kidney disease): Status: Acute Code(s): N18.9 - Chronic kidney disease, unspecified (8) Seizure disorder: Status: Acute Code(s): G40.909 - Epilepsy, unspecified, not intractable, without status epilepticus Plan The patient is an elderly female with schizoaffective disorder and other medical comorbidities who was recently discharged from this facility for psychotic decompensation, stable but she did not receive most likely her Aristada injection in the community and went back grossly psychotic. On intake the patient was pleasant cooperative and could not understand why she was here. Plan 1. Gather collateral information. 2. The patient was able to contract for safety she will be on 15 minute checks. 3. Continue with regular medications. 4. Reassessment with results. 5. We are starting Abilify 10 mg p.o. at bedtime on March 28 since it is not clear if she received her Aristada the community. Later on we discontinue the Abilify since she received her Aristada injection after discharge last time. 6. Wound consult for 03/30 Reason for continued inpatient stay Substantial Risk for: inability to function, rapid decompensation and med/psych decompensation Time Spent With Patient Time: Total time managing care of this patient today __20__ minutes.
[2024-04-03] MEDS: OLANZapine 5 MG TABLET PO ×2 (16:20→20:57)
[2024-04-03 19:39] VITALS: BP 111/59; PULSE 77; TEMP 36.3; O2SAT 96
[2024-04-03] MEDS: Melatonin 3 MG TABLET 12 MG PO (20:55)
[2024-04-03] MEDS: Acetaminophen 325 MG TABLET 975 MG PO (20:55)
[2024-04-03] MEDS: Sennosides 8.6 MG TABLET 17.2 MG PO (20:56)
[2024-04-03] MEDS: Divalproex Sodium 500 MG TABLET.DR PO (20:57)
[2024-04-03] MEDS: hydrOXYzine HCL 50 MG TABLET PO (20:57)
[2024-04-03] MEDS: Albuterol Sulfate 90 MCG 8 GM INHALER 90 PUFF INHALE (22:59)
[2024-04-04] MEDS: guaiFENesin 100 MG/5 ML 5 ML LIQUID PO (04:29)
[2024-04-04] MEDS: Albuterol Sulfate 90 MCG 8 GM INHALER 90 PUFF INHALE ×3 (04:29→21:44)
[2024-04-04] MEDS: Levothyroxine Sodium 100 MCG TABLET PO (06:18)
[2024-04-04 06:53] LABS: Glucose, Whole Blood 134 mg/dL (60-115)
[2024-04-04 07:00] VITALS: BMI 41.3
[2024-04-04 08:00] VITALS: BP 126/61; PULSE 78; TEMP 36; O2SAT 97
[2024-04-04] MEDS: Topiramate 25 MG TABLET PO ×2 (08:10→20:59)
[2024-04-04] MEDS: levETIRAcetam 500 MG TABLET 1500 MG PO ×2 (08:10→20:59)
[2024-04-04 08:11] VITALS: BP 126/61
[2024-04-04] MEDS: Cholecalciferol (Vitamin D3) 25 MCG TABLET 50 MCG PO (08:11)
[2024-04-04] MEDS: Atorvastatin Calcium 10 MG TABLET 5 MG PO (08:11)
[2024-04-04] MEDS: metFORMIN HCl 1,000 MG TABLET 1000 MG PO ×2 (08:11→20:58)
[2024-04-04] MEDS: Mirabegron 50 MG TAB.ER.24H PO (08:11)
[2024-04-04] MEDS: Cyanocobalamin (Vitamin B-12) 1,000 MCG TABLET 1000 MCG PO (08:11)
[2024-04-04] MEDS: lisinopriL 5 MG TABLET PO (08:11)
[2024-04-04] MEDS: Benztropine Mesylate 1 MG TABLET PO ×2 (08:12→20:58)
[2024-04-04] MEDS: Pyridoxine HCl (Vitamin B6) 50 MG TABLET 25 MG PO (08:12)
[2024-04-04 08:14] VITALS: BP 126/61; PULSE 78
[2024-04-04] MEDS: Nystatin Ointment 15 GM TUBE 1 APPL TOPICAL ×2 (08:14→21:05)
[2024-04-04] MEDS: Propranolol HCL 10 MG TABLET PO ×2 (08:14→20:58)
[2024-04-04] MEDS: Fluticasone/Vilanterol 100/25 BLST.W.DEV 1 PUFF INHALE (08:15)
--- NOTE | 2024-04-04 16:29 | HO.PSYCHPN ---
Subjective Subjective Date of Service: 04/04/24 Reason For Visit: psychosis Interim History: Met with patient; discussed with team Patient said she placed a 3 day notice which nursing attests. She says I am ready to go home... To know how long I have beenhere? She tells personal lines underwriter it has been a month and that she only came in for medications. She is frustrated that she has remained here longer than she felt needed. Patient said she plans to go home and move in with a friend Mental Status Exam Mental Status Exam Patient Appearance: Appropriate Patient Orientation: Person and Situation Level of Consciousness: Awake and Appropriate Patient Behavior: Appropriate and Good Eye Contact Mood Description: Constricted (irritable) Affect Description: Constricted Patient Cognition Impaired: Yes Ability to Follow Directions: Fair Speech Pattern: Clear Delusions: Paranoid Ideation (History of but patient did not express) Thought Process: Goal Oriented Thought Content: positive for [place] Judgement and Insight: Impair Diagnostics Vital Signs (24Hr): Vital Signs - 24 hr 04/03/24 19:39 04/04/24 08:00 04/04/24 08:11 Temperature 97.3 F 96.8 F Pulse Rate 77 78 Blood Pressure 111/59 L 126/61 126/61 Pulse Oximetry 96 97 Oxygen Delivery Method Room Air Room Air 04/04/24 08:14 Temperature Pulse Rate 78 Blood Pressure 126/61 Pulse Oximetry Oxygen Delivery Method BMI result Body Mass Index 41.3 Labs 03/22/24 21:02 04/01/24 07:57 Labs: Laboratory Results - last 48 hr 04/03/24 04/04/24 06:12 06:17 POC Glucose 180 H 134 H Imaging Radiology Impressions: ITS Impressions Chest X-Ray 03/23/24 01:46 IMPRESSION: There appears to be bronchial thickening which may be seen with bronchitis. There is no focal lung consolidation or pleural effusions Electronically signed by: Marcos Payne MD 03/23/2024 03:55 AM [facility] Medications Medications Current Medications Acetaminophen (Acetaminophen 325 Mg Tablet) 975 mg PO Q6H PRN PRN Reason: Pain Last Admin: 04/03/24 20:55 Dose: 975 mg Al Hydroxide/Mg Hydroxide (Magnesium Hydrox/Alum Hydrox 30 Ml Oral.Susp) 30 ml PO QID PRN PRN Reason: Heartburn Albuterol Sulfate (Albuterol Sulfate 90 Mcg 8 Gm Inhaler) 90 puff INHALE Q4H PRN PRN Reason: Wheezing, Last Admin: 04/04/24 12:57 Dose: 90 puff Atorvastatin Calcium (Atorvastatin Calcium 10 Mg Tablet) 5 mg PO DAILY [facility] Last Admin: 04/04/24 08:11 Dose: 5 mg Benztropine Mesylate (Benztropine Mesylate 1 Mg Tablet) 1 mg PO BID [facility] Last Admin: 04/04/24 08:12 Dose: 1 mg Cyanocobalamin (Cyanocobalamin (Vitamin B-12) 1,000 Mcg Tablet) 1,000 mcg PO DAILY [facility] Last Admin: 04/04/24 08:11 Dose: 1,000 mcg Divalproex Sodium (Divalproex Sodium 500 Mg Tablet.Dr) 500 mg PO BEDTIME [facility] Last Admin: 04/03/24 20:57 Dose: 500 mg Docusate Sodium (Docusate Sodium 100 Mg Capsule) 100 mg PO BID PRN PRN Reason: Constipation Fluticasone/Vilanterol (Fluticasone/Vilanterol 100/25 Blst.W.Dev) 1 puff INHALE RDAILY [facility] Last Admin: 04/04/24 08:15 Dose: 1 puff Guaifenesin (Guaifenesin 200 Mg/10 Ml 10 Ml Liquid) 10 ml PO Q6H PRN PRN Reason: Cough Last Admin: 04/01/24 03:41 Dose: 10 ml Guaifenesin (Guaifenesin 100 Mg/5 Ml 5 Ml Liquid) 5 ml PO Q6H PRN PRN Reason: Cough Last Admin: 04/04/24 04:29 Dose: 5 ml Hydroxyzine HCl (Hydroxyzine Hcl 50 Mg Tablet) 50 mg PO QID PRN PRN Reason: SEVERE Anxiety Last Admin: 04/03/24 20:57 Dose: 50 mg Hydroxyzine HCl (Hydroxyzine Hcl 25 Mg Tablet) 25 mg PO Q6H PRN PRN Reason: Anxiety Last Admin: 03/29/24 14:36 Dose: 25 mg Levetiracetam (Levetiracetam 500 Mg Tablet) 1,500 mg PO BID [facility] Last Admin: 04/04/24 08:10 Dose: 1,500 mg Levothyroxine Sodium (Levothyroxine Sodium 100 Mcg Tablet) 100 mcg PO DAILY@0600 [facility] Last Admin: 04/04/24 06:18 Dose: 100 mcg Lisinopril (Lisinopril 5 Mg Tablet) 5 mg PO DAILY [facility]; Protocol Last Admin: 04/04/24 08:11 Dose: 5 mg Magnesium Hydroxide (Milk Of Magnesia 30 Ml Oral.Susp) 30 ml PO DAILY PRN PRN Reason: Constipation Last Admin: 04/01/24 20:21 Dose: 30 ml Melatonin (Melatonin 3 Mg Tablet) 12 mg PO BEDTIME [facility] Last Admin: 04/03/24 20:55 Dose: 12 mg Metformin HCl (Metformin Hcl 1,000 Mg Tablet) 1,000 mg PO BID [facility] Last Admin: 04/04/24 08:11 Dose: 1,000 mg Mirabegron (Mirabegron 50 Mg Tab.Er.24h) 50 mg PO DAILY [facility] Last Admin: 04/04/24 08:11 Dose: 50 mg Nystatin (Nystatin Ointment 15 Gm Tube) 1 appl TOPICAL BID [facility]; Protocol Last Admin: 04/04/24 08:14 Dose: 1 appl Nystatin/Triamcinolone Acetonide (Nystatin/Triamcinolone Oint 15 Gm Tube) 1 appl TOPICAL BID [facility]; Protocol Last Admin: 04/04/24 08:15 Dose: 1 appl Olanzapine (Olanzapine 5 Mg Tablet) 5 mg PO DAILY@1630 [facility] Last Admin: 04/03/24 16:20 Dose: 5 mg Olanzapine (Olanzapine 5 Mg Tablet) 5 mg PO BEDTIME [facility] Last Admin: 04/03/24 20:57 Dose: 5 mg Propranolol HCl (Propranolol Hcl 10 Mg Tablet) 10 mg PO BID [facility]; Protocol Last Admin: 04/04/24 08:14 Dose: 10 mg Psyllium Hydrophilic Mucilloid (Psyllium Seed 3.7 Gm Packet) 3.7 gm PO BID [facility] Last Admin: 04/04/24 08:19 Dose: Not Given Pyridoxine HCl (Pyridoxine Hcl (Vitamin B6) 50 Mg Tablet) 25 mg PO DAILY [facility] Last Admin: 04/04/24 08:12 Dose: 25 mg Senna (Sennosides 8.6 Mg Tablet) 17.2 mg PO BEDTIME PRN PRN Reason: Constipation Last Admin: 04/03/24 20:56 Dose: 17.2 mg Topiramate (Topiramate 25 Mg Tablet) 25 mg PO BID [facility] Last Admin: 04/04/24 08:10 Dose: 25 mg Trazodone HCl (Trazodone Hcl 50 Mg Tablet) 50 mg PO BEDTIME MRX1 PRN PRN Reason: Insomnia Last Admin: 04/03/24 20:57 Dose: 50 mg Vitamin D (Cholecalciferol (Vitamin D3) 25 Mcg Tablet) 50 mcg PO DAILY [facility] Last Admin: 04/04/24 08:11 Dose: 50 mcg Allergies Allergies Allergy/AdvReac Type Severity Reaction Status Date / Time oxcarbazepine Allergy Unknown Verified 03/22/24 20:38 [From Trileptal] peanut Allergy Unknown Verified 03/22/24 20:38 quetiapine [From Seroquel] Allergy Vomiting Verified 03/22/24 20:38 Assessment & Plan Assessment & Plan (1) Schizoaffective disorder: Status: Acute Code(s): F25.9 - Schizoaffective disorder, unspecified (2) HTN (hypertension): Status: Acute Code(s): I10 - Essential (primary) hypertension (3) Type 2 diabetes mellitus: Status: Acute Code(s): E11.9 - Type 2 diabetes mellitus without complications (4) Mild persistent asthma: Status: Acute Code(s): J45.30 - Mild persistent asthma, uncomplicated (5) Hypothyroidism: Status: Acute Code(s): E03.9 - Hypothyroidism, unspecified (6) Diabetic peripheral neuropathy: Status: Acute Code(s): E11.42 - Type 2 diabetes mellitus with diabetic polyneuropathy (7) CKD (chronic kidney disease): Status: Acute Code(s): N18.9 - Chronic kidney disease, unspecified (8) Seizure disorder: Status: Acute Code(s): G40.909 - Epilepsy, unspecified, not intractable, without status epilepticus Plan The patient is an elderly female with schizoaffective disorder and other medical comorbidities who was recently discharged from this facility for psychotic decompensation, stable but she did not receive most likely her Aristada injection in the community and went back grossly psychotic. On intake the patient was pleasant cooperative and could not understand why she was here. 04/04 Patient said she placed a 3 day notice which nursing attests. She says I am ready to go home... To know how long I have beenhere? She tells personal lines underwriter it has been a month and that she only came in for medications. She is frustrated that she has remained here longer than she felt needed. Patient said she plans to go home and move in with a friend Plan 1. Gather collateral information. 2. The patient was able to contract for safety she will be on 15 minute checks. 3. Continue with regular medications. 4. Reassessment with results. 5. We are starting Abilify 10 mg p.o. at bedtime on March 28 since it is not clear if she received her Aristada the community. Later on we discontinue the Abilify since she received her Aristada injection after discharge last time. 6. Wound consult for 03/30 Patient educated on: diagnosis and medication risk/benefits Informed Consent: understands, does not understand and further education needed Reason for continued inpatient stay Substantial Risk for: rapid decompensation Time Spent With Patient Time: Total time managing care of this patient today ____ minutes.
[2024-04-04] MEDS: OLANZapine 5 MG TABLET PO ×2 (16:44→21:01)
[2024-04-04 20:00] VITALS: BP 119/60; PULSE 75; RESP 16; TEMP 36.3; O2SAT 97
[2024-04-04 20:58] VITALS: BP 119/60; PULSE 75
[2024-04-04] MEDS: Divalproex Sodium 500 MG TABLET.DR PO (20:58)
[2024-04-04] MEDS: Melatonin 3 MG TABLET 12 MG PO (20:58)
[2024-04-04] MEDS: Sennosides 8.6 MG TABLET 17.2 MG PO (20:59)
[2024-04-04] MEDS: guaiFENesin 200 MG/10 ML 10 ML LIQUID PO (20:59)
[2024-04-04] MEDS: Acetaminophen 325 MG TABLET 975 MG PO (21:00)
[2024-04-05] MEDS: Levothyroxine Sodium 100 MCG TABLET PO (05:57)
[2024-04-05 06:25] LABS: Glucose, Whole Blood 111 mg/dL (60-115)
[2024-04-05 08:42] VITALS: BP 128/74; PULSE 65; RESP 16; TEMP 36.4; O2SAT 97
[2024-04-05] MEDS: Albuterol Sulfate 90 MCG 8 GM INHALER 90 PUFF INHALE ×2 (09:40→20:48)
[2024-04-05] MEDS: Nystatin Ointment 15 GM TUBE 1 APPL TOPICAL ×2 (09:41→20:58)
[2024-04-05] MEDS: Cholecalciferol (Vitamin D3) 25 MCG TABLET 50 MCG PO (09:42)
[2024-04-05] MEDS: Topiramate 25 MG TABLET PO ×2 (09:42→20:50)
[2024-04-05] MEDS: metFORMIN HCl 1,000 MG TABLET 1000 MG PO ×2 (09:43→20:49)
[2024-04-05] MEDS: Atorvastatin Calcium 10 MG TABLET 5 MG PO (09:43)
[2024-04-05] MEDS: Cyanocobalamin (Vitamin B-12) 1,000 MCG TABLET 1000 MCG PO (09:43)
[2024-04-05] MEDS: Mirabegron 50 MG TAB.ER.24H PO (09:43)
[2024-04-05] MEDS: Pyridoxine HCl (Vitamin B6) 50 MG TABLET 25 MG PO (09:43)
[2024-04-05 09:44] VITALS: BP 137/82; PULSE 84
[2024-04-05] MEDS: Benztropine Mesylate 1 MG TABLET PO ×2 (09:44→20:49)
[2024-04-05] MEDS: Propranolol HCL 10 MG TABLET PO ×2 (09:44→20:49)
[2024-04-05] MEDS: levETIRAcetam 500 MG TABLET 1500 MG PO ×2 (09:44→20:50)
[2024-04-05] MEDS: lisinopriL 5 MG TABLET PO (09:44)
[2024-04-05] MEDS: Fluticasone/Vilanterol 100/25 BLST.W.DEV 1 PUFF INHALE (09:47)
[2024-04-05] MEDS: guaiFENesin 200 MG/10 ML 10 ML LIQUID PO ×2 (09:48→20:48)
[2024-04-05 10:13] LABS: Valproate 18.9 mcg/mL (50.0-100.0)
--- NOTE | 2024-04-05 10:18 | PC.NURSE ---
VPA level 18.[address] Caceres.
--- NOTE | 2024-04-05 12:59 | P.PNPSI_ITS ---
Subjective Subjective Date of Service: 04/05/24 Reason For Visit: psychosis Subjective Notes: Conditional Voluntary and 3 Day Interim History: The nursing staff reported the patient slept on and off, she signed a 3 day notice. The social services aide reported that paces trying to give us more alternatives. On interview the patient denies new symptoms, waiting for placement. Mental Status Exam Mental Status Exam Patient Appearance: Well Grooomed and Appropriate Patient Orientation: Person and Situation Level of Consciousness: Awake Patient Behavior: Guarded and Passive Mood Description: Withdrawn Affect Description: Constricted Patient Cognition Impaired: Yes Ability to Follow Directions: Good Speech Pattern: Clear Hallucinations: Auditory Delusions: Paranoid Ideation and Ideas of Reference Thought Process: Distracted and Slowed Thinking Thought Content: positive for [place] and positive for Poverty of Content Judgement: Fair Diagnostics Vital Signs (24Hr): Vital Signs - 24 hr 04/04/24 20:00 04/04/24 20:58 04/05/24 08:42 Temperature 97.4 F 97.5 F Pulse Rate 75 75 65 Respiratory Rate 16 16 Blood Pressure 119/60 119/60 128/74 Pulse Oximetry 97 97 Oxygen Delivery Method Room Air Room Air 04/05/24 09:44 04/05/24 09:44 Temperature Pulse Rate 84 Respiratory Rate Blood Pressure 137/82 137/82 Pulse Oximetry Oxygen Delivery Method BMI result Body Mass Index 41.3 Labs 03/22/24 21:02 04/01/24 07:57 Labs: Laboratory Results - last 48 hr 04/04/24 04/05/24 04/05/24 06:17 05:58 08:48 POC Glucose 134 H 111 Valproic Acid 18.9 L Imaging Radiology Impressions: ITS Impressions Chest X-Ray 03/23/24 01:46 IMPRESSION: There appears to be bronchial thickening which may be seen with bronchitis. There is no focal lung consolidation or pleural effusions Electronically signed by: Marcos Payne MD 03/23/2024 03:55 AM [facility] Medications Medications Current Medications Acetaminophen (Acetaminophen 325 Mg Tablet) 975 mg PO Q6H PRN PRN Reason: Pain Last Admin: 04/04/24 21:00 Dose: 975 mg Al Hydroxide/Mg Hydroxide (Magnesium Hydrox/Alum Hydrox 30 Ml Oral.Susp) 30 ml PO QID PRN PRN Reason: Heartburn Albuterol Sulfate (Albuterol Sulfate 90 Mcg 8 Gm Inhaler) 90 puff INHALE Q4H PRN PRN Reason: Wheezing, Last Admin: 04/05/24 09:40 Dose: 90 puff Atorvastatin Calcium (Atorvastatin Calcium 10 Mg Tablet) 5 mg PO DAILY [facility] Last Admin: 04/05/24 09:43 Dose: 5 mg Benztropine Mesylate (Benztropine Mesylate 1 Mg Tablet) 1 mg PO BID [facility] Last Admin: 04/05/24 09:44 Dose: 1 mg Cyanocobalamin (Cyanocobalamin (Vitamin B-12) 1,000 Mcg Tablet) 1,000 mcg PO DAILY [facility] Last Admin: 04/05/24 09:43 Dose: 1,000 mcg Divalproex Sodium (Divalproex Sodium 500 Mg Tablet.Dr) 500 mg PO BEDTIME [facility] Last Admin: 04/04/24 20:58 Dose: 500 mg Docusate Sodium (Docusate Sodium 100 Mg Capsule) 100 mg PO BID PRN PRN Reason: Constipation Fluticasone/Vilanterol (Fluticasone/Vilanterol 100/25 Blst.W.Dev) 1 puff INHALE RDAILY [facility] Last Admin: 04/05/24 09:47 Dose: 1 puff Guaifenesin (Guaifenesin 200 Mg/10 Ml 10 Ml Liquid) 10 ml PO Q6H PRN PRN Reason: Cough Last Admin: 04/05/24 09:48 Dose: 10 ml Guaifenesin (Guaifenesin 100 Mg/5 Ml 5 Ml Liquid) 5 ml PO Q6H PRN PRN Reason: Cough Last Admin: 04/04/24 04:29 Dose: 5 ml Hydroxyzine HCl (Hydroxyzine Hcl 50 Mg Tablet) 50 mg PO QID PRN PRN Reason: SEVERE Anxiety Last Admin: 04/03/24 20:57 Dose: 50 mg Hydroxyzine HCl (Hydroxyzine Hcl 25 Mg Tablet) 25 mg PO Q6H PRN PRN Reason: Anxiety Last Admin: 03/29/24 14:36 Dose: 25 mg Levetiracetam (Levetiracetam 500 Mg Tablet) 1,500 mg PO BID [facility] Last Admin: 04/05/24 09:44 Dose: 1,500 mg Levothyroxine Sodium (Levothyroxine Sodium 100 Mcg Tablet) 100 mcg PO DAILY@0600 [facility] Last Admin: 04/05/24 05:57 Dose: 100 mcg Lisinopril (Lisinopril 5 Mg Tablet) 5 mg PO DAILY [facility]; Protocol Last Admin: 04/05/24 09:44 Dose: 5 mg Magnesium Hydroxide (Milk Of Magnesia 30 Ml Oral.Susp) 30 ml PO DAILY PRN PRN Reason: Constipation Last Admin: 04/01/24 20:21 Dose: 30 ml Melatonin (Melatonin 3 Mg Tablet) 12 mg PO BEDTIME [facility] Last Admin: 04/04/24 20:58 Dose: 12 mg Metformin HCl (Metformin Hcl 1,000 Mg Tablet) 1,000 mg PO BID [facility] Last Admin: 04/05/24 09:43 Dose: 1,000 mg Mirabegron (Mirabegron 50 Mg Tab.Er.24h) 50 mg PO DAILY [facility] Last Admin: 04/05/24 09:43 Dose: 50 mg Nystatin (Nystatin Ointment 15 Gm Tube) 1 appl TOPICAL BID [facility]; Protocol Last Admin: 04/05/24 09:41 Dose: 1 appl Nystatin/Triamcinolone Acetonide (Nystatin/Triamcinolone Oint 15 Gm Tube) 1 appl TOPICAL BID [facility]; Protocol Last Admin: 04/05/24 09:41 Dose: 1 appl Olanzapine (Olanzapine 5 Mg Tablet) 5 mg PO DAILY@1630 [facility] Last Admin: 04/04/24 16:44 Dose: 5 mg Olanzapine (Olanzapine 5 Mg Tablet) 5 mg PO BEDTIME [facility] Last Admin: 04/04/24 21:01 Dose: 5 mg Propranolol HCl (Propranolol Hcl 10 Mg Tablet) 10 mg PO BID [facility]; Protocol Last Admin: 04/05/24 09:44 Dose: 10 mg Psyllium Hydrophilic Mucilloid (Psyllium Seed 3.7 Gm Packet) 3.7 gm PO BID [facility] Last Admin: 04/05/24 09:48 Dose: Not Given Pyridoxine HCl (Pyridoxine Hcl (Vitamin B6) 50 Mg Tablet) 25 mg PO DAILY [facility] Last Admin: 04/05/24 09:43 Dose: 25 mg Senna (Sennosides 8.6 Mg Tablet) 17.2 mg PO BEDTIME PRN PRN Reason: Constipation Last Admin: 04/04/24 20:59 Dose: 17.2 mg Topiramate (Topiramate 25 Mg Tablet) 25 mg PO BID [facility] Last Admin: 04/05/24 09:42 Dose: 25 mg Trazodone HCl (Trazodone Hcl 50 Mg Tablet) 50 mg PO BEDTIME MRX1 PRN PRN Reason: Insomnia Last Admin: 04/03/24 20:57 Dose: 50 mg Vitamin D (Cholecalciferol (Vitamin D3) 25 Mcg Tablet) 50 mcg PO DAILY [facility] Last Admin: 04/05/24 09:42 Dose: 50 mcg Allergies Allergies Allergy/AdvReac Type Severity Reaction Status Date / Time oxcarbazepine Allergy Unknown Verified 03/22/24 20:38 [From Trileptal] peanut Allergy Unknown Verified 03/22/24 20:38 quetiapine [From Seroquel] Allergy Vomiting Verified 03/22/24 20:38 Assessment & Plan Assessment & Plan (1) Schizoaffective disorder: Status: Acute Code(s): F25.9 - Schizoaffective disorder, unspecified (2) HTN (hypertension): Status: Acute Code(s): I10 - Essential (primary) hypertension (3) Type 2 diabetes mellitus: Status: Acute Code(s): E11.9 - Type 2 diabetes mellitus without complications (4) Mild persistent asthma: Status: Acute Code(s): J45.30 - Mild persistent asthma, uncomplicated (5) Hypothyroidism: Status: Acute Code(s): E03.9 - Hypothyroidism, unspecified (6) Diabetic peripheral neuropathy: Status: Acute Code(s): E11.42 - Type 2 diabetes mellitus with diabetic polyneuropathy (7) CKD (chronic kidney disease): Status: Acute Code(s): N18.9 - Chronic kidney disease, unspecified (8) Seizure disorder: Status: Acute Code(s): G40.909 - Epilepsy, unspecified, not intractable, without status epilepticus Plan The patient is an elderly female with schizoaffective disorder and other medical comorbidities who was recently discharged from this facility for psychotic decompensation, stable but she did not receive most likely her Aristada injection in the community and went back grossly psychotic. On intake the patient was pleasant cooperative and could not understand why she was here. 04/04 Patient said she placed a 3 day notice which nursing attests. She says I am ready to go home... To know how long I have beenhere? She tells procedure writer it has been a month and that she only came in for medications. She is frustrated that she has remained here longer than she felt needed. Patient said she plans to go home and move in with a friend Plan 1. Gather collateral information. 2. The patient was able to contract for safety she will be on 15 minute checks. 3. Continue with regular medications. 4. Reassessment with results. 5. We are starting Abilify 10 mg p.o. at bedtime on March 28 since it is not clear if she received her Aristada the community. Later on we discontinue the Abilify since she received her Aristada injection after discharge last time. 6. Wound consult for 03/30 Reason for continued inpatient stay Substantial Risk for: inability to function, rapid decompensation and med/psych decompensation Time Spent With Patient Time: Total time managing care of this patient today ___20_ minutes.
[2024-04-05] MEDS: OLANZapine 5 MG TABLET PO ×2 (16:45→20:50)
[2024-04-05 20:00] VITALS: BP 113/62; PULSE 76; RESP 16; TEMP 36.7; O2SAT 96
[2024-04-05] MEDS: Sennosides 8.6 MG TABLET 17.2 MG PO (20:48)
[2024-04-05 20:49] VITALS: BP 113/62; PULSE 76
[2024-04-05] MEDS: Divalproex Sodium 500 MG TABLET.DR PO (20:49)
[2024-04-05] MEDS: Melatonin 3 MG TABLET 12 MG PO (20:49)
[2024-04-06] MEDS: Levothyroxine Sodium 100 MCG TABLET PO (05:50)
[2024-04-06 06:02] LABS: Glucose, Whole Blood 102 mg/dL (60-115)
[2024-04-06 07:59] VITALS: BP 128/64; PULSE 75; RESP 16; TEMP 36.2; O2SAT 99
[2024-04-06] MEDS: Fluticasone/Vilanterol 100/25 BLST.W.DEV 1 PUFF INHALE (08:00)
[2024-04-06] MEDS: Albuterol Sulfate 90 MCG 8 GM INHALER 90 PUFF INHALE (08:01)
[2024-04-06] MEDS: Cholecalciferol (Vitamin D3) 25 MCG TABLET 50 MCG PO (08:02)
[2024-04-06 08:03] VITALS: BP 128/64
[2024-04-06] MEDS: lisinopriL 5 MG TABLET PO (08:03)
[2024-04-06] MEDS: Benztropine Mesylate 1 MG TABLET PO ×2 (08:03→20:45)
[2024-04-06] MEDS: metFORMIN HCl 1,000 MG TABLET 1000 MG PO ×2 (08:03→20:45)
[2024-04-06] MEDS: levETIRAcetam 500 MG TABLET 1500 MG PO ×2 (08:03→20:44)
[2024-04-06] MEDS: guaiFENesin 200 MG/10 ML 10 ML LIQUID PO ×2 (08:03→20:45)
[2024-04-06] MEDS: Cyanocobalamin (Vitamin B-12) 1,000 MCG TABLET 1000 MCG PO (08:03)
[2024-04-06] MEDS: Mirabegron 50 MG TAB.ER.24H PO (08:03)
[2024-04-06] MEDS: Topiramate 25 MG TABLET PO ×2 (08:03→20:43)
[2024-04-06 08:04] VITALS: BP 128/64; PULSE 75
[2024-04-06] MEDS: Atorvastatin Calcium 10 MG TABLET 5 MG PO (08:04)
[2024-04-06] MEDS: Pyridoxine HCl (Vitamin B6) 50 MG TABLET 25 MG PO (08:04)
[2024-04-06] MEDS: Propranolol HCL 10 MG TABLET PO ×2 (08:04→20:43)
--- NOTE | 2024-04-06 14:18 | P.PNPSI_ITS ---
Subjective Subjective Date of Service: 04/06/24 Reason For Visit: psychosis Subjective Notes: Conditional Voluntary Interim History: Patient was seen and discussed in rounds today. Records and plans were reviewed. She continues to be paranoid and delusional and guarded. Pleasant at times. She is medication compliant. No behavior use. Eating and sleeping adequately. No changes were made today Review of Systems Review of Systems Yes all other systems are reviewed and are negative Mental Status Exam Mental Status Exam Patient Appearance: Well Grooomed and Appropriate Patient Orientation: Person and Situation Level of Consciousness: Awake Patient Behavior: Guarded and Passive Mood Description: Withdrawn Affect Description: Constricted Patient Cognition Impaired: Yes Ability to Follow Directions: Good Speech Pattern: Clear Hallucinations: Auditory Delusions: Paranoid Ideation and Ideas of Reference Thought Process: Distracted and Slowed Thinking Thought Content: positive for [place] and positive for Poverty of Content Judgement: Fair Diagnostics Vital Signs (24Hr): Vital Signs - 24 hr 04/05/24 20:00 04/05/24 20:49 04/06/24 07:59 Temperature 98.1 F 97.2 F Pulse Rate 76 76 75 Respiratory Rate 16 16 Blood Pressure 113/62 113/62 128/64 Pulse Oximetry 96 99 Oxygen Delivery Method Room Air Room Air 04/06/24 08:03 04/06/24 08:04 Temperature Pulse Rate 75 Respiratory Rate Blood Pressure 128/64 128/64 Pulse Oximetry Oxygen Delivery Method BMI result Body Mass Index 41.3 Labs 03/22/24 21:02 04/01/24 07:57 Labs: Laboratory Results - last 48 hr 04/05/24 04/05/24 04/06/24 05:58 08:48 05:57 POC Glucose 111 102 Valproic Acid 18.9 L Imaging Radiology Impressions: ITS Impressions Chest X-Ray 03/23/24 01:46 IMPRESSION: There appears to be bronchial thickening which may be seen with bronchitis. There is no focal lung consolidation or pleural effusions Electronically signed by: Marcos Payne MD 03/23/2024 03:55 AM [facility] Medications Medications Current Medications Acetaminophen (Acetaminophen 325 Mg Tablet) 975 mg PO Q6H PRN PRN Reason: Pain Last Admin: 04/04/24 21:00 Dose: 975 mg Al Hydroxide/Mg Hydroxide (Magnesium Hydrox/Alum Hydrox 30 Ml Oral.Susp) 30 ml PO QID PRN PRN Reason: Heartburn Albuterol Sulfate (Albuterol Sulfate 90 Mcg 8 Gm Inhaler) 1 puff INHALE Q4H PRN PRN Reason: Wheezing, Atorvastatin Calcium (Atorvastatin Calcium 10 Mg Tablet) 5 mg PO DAILY [facility] Last Admin: 04/06/24 08:04 Dose: 5 mg Benztropine Mesylate (Benztropine Mesylate 1 Mg Tablet) 1 mg PO BID [facility] Last Admin: 04/06/24 08:03 Dose: 1 mg Cyanocobalamin (Cyanocobalamin (Vitamin B-12) 1,000 Mcg Tablet) 1,000 mcg PO DAILY [facility] Last Admin: 04/06/24 08:03 Dose: 1,000 mcg Divalproex Sodium (Divalproex Sodium 500 Mg Tablet.Dr) 500 mg PO BEDTIME [facility] Last Admin: 04/05/24 20:49 Dose: 500 mg Docusate Sodium (Docusate Sodium 100 Mg Capsule) 100 mg PO BID PRN PRN Reason: Constipation Fluticasone/Vilanterol (Fluticasone/Vilanterol 100/25 Blst.W.Dev) 1 puff INHALE RDAILY [facility] Last Admin: 04/06/24 08:00 Dose: 1 puff Guaifenesin (Guaifenesin 200 Mg/10 Ml 10 Ml Liquid) 10 ml PO Q6H PRN PRN Reason: Cough Last Admin: 04/06/24 08:03 Dose: 10 ml Guaifenesin (Guaifenesin 100 Mg/5 Ml 5 Ml Liquid) 5 ml PO Q6H PRN PRN Reason: Cough Last Admin: 04/04/24 04:29 Dose: 5 ml Hydroxyzine HCl (Hydroxyzine Hcl 50 Mg Tablet) 50 mg PO QID PRN PRN Reason: SEVERE Anxiety Last Admin: 04/03/24 20:57 Dose: 50 mg Hydroxyzine HCl (Hydroxyzine Hcl 25 Mg Tablet) 25 mg PO Q6H PRN PRN Reason: Anxiety Last Admin: 03/29/24 14:36 Dose: 25 mg Levetiracetam (Levetiracetam 500 Mg Tablet) 1,500 mg PO BID [facility] Last Admin: 04/06/24 08:03 Dose: 1,500 mg Levothyroxine Sodium (Levothyroxine Sodium 100 Mcg Tablet) 100 mcg PO DAILY@0600 [facility] Last Admin: 04/06/24 05:50 Dose: 100 mcg Lisinopril (Lisinopril 5 Mg Tablet) 5 mg PO DAILY [facility]; Protocol Last Admin: 04/06/24 08:03 Dose: 5 mg Magnesium Hydroxide (Milk Of Magnesia 30 Ml Oral.Susp) 30 ml PO DAILY PRN PRN Reason: Constipation Last Admin: 04/01/24 20:21 Dose: 30 ml Melatonin (Melatonin 3 Mg Tablet) 12 mg PO BEDTIME [facility] Last Admin: 04/05/24 20:49 Dose: 12 mg Metformin HCl (Metformin Hcl 1,000 Mg Tablet) 1,000 mg PO BID [facility] Last Admin: 04/06/24 08:03 Dose: 1,000 mg Mirabegron (Mirabegron 50 Mg Tab.Er.24h) 50 mg PO DAILY [facility] Last Admin: 04/06/24 08:03 Dose: 50 mg Nystatin (Nystatin Ointment 15 Gm Tube) 1 appl TOPICAL BID [facility]; Protocol Last Admin: 04/06/24 08:07 Dose: Not Given Nystatin/Triamcinolone Acetonide (Nystatin/Triamcinolone Oint 15 Gm Tube) 1 appl TOPICAL BID [facility]; Protocol Last Admin: 04/06/24 08:06 Dose: 1 appl Olanzapine (Olanzapine 5 Mg Tablet) 5 mg PO DAILY@1630 [facility] Last Admin: 04/05/24 16:45 Dose: 5 mg Olanzapine (Olanzapine 5 Mg Tablet) 5 mg PO BEDTIME [facility] Last Admin: 04/05/24 20:50 Dose: 5 mg Propranolol HCl (Propranolol Hcl 10 Mg Tablet) 10 mg PO BID [facility]; Protocol Last Admin: 04/06/24 08:04 Dose: 10 mg Psyllium Hydrophilic Mucilloid (Psyllium Seed 3.7 Gm Packet) 3.7 gm PO BID [facility] Last Admin: 04/06/24 08:12 Dose: Not Given Pyridoxine HCl (Pyridoxine Hcl (Vitamin B6) 50 Mg Tablet) 25 mg PO DAILY [facility] Last Admin: 04/06/24 08:04 Dose: 25 mg Senna (Sennosides 8.6 Mg Tablet) 17.2 mg PO BEDTIME PRN PRN Reason: Constipation Last Admin: 04/05/24 20:48 Dose: 17.2 mg Topiramate (Topiramate 25 Mg Tablet) 25 mg PO BID [facility] Last Admin: 04/06/24 08:03 Dose: 25 mg Trazodone HCl (Trazodone Hcl 50 Mg Tablet) 50 mg PO BEDTIME MRX1 PRN PRN Reason: Insomnia Last Admin: 04/03/24 20:57 Dose: 50 mg Vitamin D (Cholecalciferol (Vitamin D3) 25 Mcg Tablet) 50 mcg PO DAILY [facility] Last Admin: 04/06/24 08:02 Dose: 50 mcg Allergies Allergies Allergy/AdvReac Type Severity Reaction Status Date / Time oxcarbazepine Allergy Unknown Verified 03/22/24 20:38 [From Trileptal] peanut Allergy Unknown Verified 03/22/24 20:38 quetiapine [From Seroquel] Allergy Vomiting Verified 03/22/24 20:38 Assessment & Plan Assessment & Plan (1) Schizoaffective disorder: Status: Acute Code(s): F25.9 - Schizoaffective disorder, unspecified (2) HTN (hypertension): Status: Acute Code(s): I10 - Essential (primary) hypertension (3) Type 2 diabetes mellitus: Status: Acute Code(s): E11.9 - Type 2 diabetes mellitus without complications (4) Mild persistent asthma: Status: Acute Code(s): J45.30 - Mild persistent asthma, uncomplicated (5) Hypothyroidism: Status: Acute Code(s): E03.9 - Hypothyroidism, unspecified (6) Diabetic peripheral neuropathy: Status: Acute Code(s): E11.42 - Type 2 diabetes mellitus with diabetic polyneuropathy (7) CKD (chronic kidney disease): Status: Acute Code(s): N18.9 - Chronic kidney disease, unspecified (8) Seizure disorder: Status: Acute Code(s): G40.909 - Epilepsy, unspecified, not intractable, without status epilepticus Plan The patient is an elderly female with schizoaffective disorder and other medical comorbidities who was recently discharged from this facility for psychotic decompensation, stable but she did not receive most likely her Aristada injection in the community and went back grossly psychotic. On intake the patient was pleasant cooperative and could not understand why she was here. 04/04 Patient said she placed a 3 day notice which nursing attests. She says I am ready to go home... To know how long I have beenhere? 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 She is frustrated that she has remained here longer than she felt needed. Patient said she plans to go home and move in with a friend 04/06: Continue current regimen and plans Plan 1. Gather collateral information. 2. The patient was able to contract for safety she will be on 15 minute checks. 3. Continue with regular medications. 4. Reassessment with results. 5. We are starting Abilify 10 mg p.o. at bedtime on March 28 since it is not clear if she received her Aristada the community. Later on we discontinue the Abilify since she received her Aristada injection after discharge last time. 6. Wound consult for 03/30 Reason for continued inpatient stay Substantial Risk for: inability to function Time Spent With Patient Time: Total time managing care of this patient today ____ minutes.
[2024-04-06] MEDS: OLANZapine 5 MG TABLET PO ×2 (15:47→20:43)
[2024-04-06 20:00] VITALS: BP 147/70; PULSE 80; RESP 16; TEMP 37; O2SAT 98
[2024-04-06 20:43] VITALS: BP 147/70; PULSE 80
[2024-04-06] MEDS: Divalproex Sodium 500 MG TABLET.DR PO (20:43)
[2024-04-06] MEDS: Melatonin 3 MG TABLET 12 MG PO (20:44)
[2024-04-06] MEDS: Sennosides 8.6 MG TABLET 17.2 MG PO (20:45)
[2024-04-06] MEDS: Nystatin Ointment 15 GM TUBE 1 APPL TOPICAL (20:50)
[2024-04-07] MEDS: Levothyroxine Sodium 100 MCG TABLET PO (05:59)
[2024-04-07 06:33] LABS: Glucose, Whole Blood 116 mg/dL (60-115)
[2024-04-07 08:00] VITALS: BP 131/78; PULSE 83; RESP 18; TEMP 36.2; O2SAT 98
[2024-04-07 08:46] VITALS: BP 131/78
[2024-04-07] MEDS: lisinopriL 5 MG TABLET PO (08:46)
[2024-04-07] MEDS: metFORMIN HCl 1,000 MG TABLET 1000 MG PO ×2 (08:46→20:21)
[2024-04-07] MEDS: levETIRAcetam 500 MG TABLET 1500 MG PO ×2 (08:46→20:20)
[2024-04-07] MEDS: Mirabegron 50 MG TAB.ER.24H PO (08:47)
[2024-04-07] MEDS: Benztropine Mesylate 1 MG TABLET PO ×2 (08:47→20:20)
[2024-04-07] MEDS: Topiramate 25 MG TABLET PO ×2 (08:47→20:21)
[2024-04-07] MEDS: Cyanocobalamin (Vitamin B-12) 1,000 MCG TABLET 1000 MCG PO (08:47)
[2024-04-07] MEDS: Cholecalciferol (Vitamin D3) 25 MCG TABLET 50 MCG PO (08:47)
[2024-04-07 08:48] VITALS: BP 131/78; PULSE 83
[2024-04-07] MEDS: Propranolol HCL 10 MG TABLET PO ×2 (08:48→20:21)
[2024-04-07] MEDS: Fluticasone/Vilanterol 100/25 BLST.W.DEV 1 PUFF INHALE (08:51)
[2024-04-07] MEDS: Pyridoxine HCl (Vitamin B6) 50 MG TABLET 25 MG PO (08:53)
[2024-04-07] MEDS: Atorvastatin Calcium 10 MG TABLET 5 MG PO (08:54)
[2024-04-07] MEDS: Nystatin Ointment 15 GM TUBE 1 APPL TOPICAL ×2 (08:56→20:22)
--- NOTE | 2024-04-07 11:15 | HO.PSYCHPN ---
Subjective Subjective Date of Service: 04/07/24 Reason For Visit: psychosis Subjective Notes: Conditional Voluntary Interim History: Patient was seen and discussed in rounds today. Records and plans were reviewed. She continues to be paranoid and delusional and guarded. She is medication compliant. Denies any side effects. No behavioral issues. No SI. No changes were Review of Systems Review of Systems Yes all other systems are reviewed and are negative Mental Status Exam Mental Status Exam Patient Appearance: Well Grooomed and Appropriate Patient Orientation: Person and Situation Level of Consciousness: Awake Patient Behavior: Guarded and Passive Mood Description: Withdrawn Affect Description: Constricted Patient Cognition Impaired: Yes Ability to Follow Directions: Good Speech Pattern: Clear Hallucinations: Auditory Delusions: Paranoid Ideation and Ideas of Reference Thought Process: Distracted and Slowed Thinking Thought Content: positive for [place] and positive for Poverty of Content Judgement: Fair Diagnostics Vital Signs (24Hr): Vital Signs - 24 hr 04/06/24 20:00 04/06/24 20:43 04/07/24 08:00 Temperature 98.6 F 97.1 F Pulse Rate 80 80 83 Respiratory Rate 16 18 Blood Pressure 147/70 H 147/70 H 131/78 Pulse Oximetry 98 98 Oxygen Delivery Method Room Air Room Air 04/07/24 08:46 04/07/24 08:48 Temperature Pulse Rate 83 Respiratory Rate Blood Pressure 131/78 131/78 Pulse Oximetry Oxygen Delivery Method BMI result Body Mass Index 41.3 Labs 03/22/24 21:02 04/01/24 07:57 Labs: Laboratory Results - last 48 hr 04/06/24 04/07/24 05:57 06:00 POC Glucose 102 116 H Imaging Radiology Impressions: ITS Impressions Chest X-Ray 03/23/24 01:46 IMPRESSION: There appears to be bronchial thickening which may be seen with bronchitis. There is no focal lung consolidation or pleural effusions Electronically signed by: Marcos Payne MD 03/23/2024 03:[address] [facility] Medications Medications Current Medications Acetaminophen (Acetaminophen 325 Mg Tablet) 975 mg PO Q6H PRN PRN Reason: Pain Last Admin: 04/04/24 21:00 Dose: 975 mg Al Hydroxide/Mg Hydroxide (Magnesium Hydrox/Alum Hydrox 30 Ml Oral.Susp) 30 ml PO QID PRN PRN Reason: Heartburn Albuterol Sulfate (Albuterol Sulfate 90 Mcg 8 Gm Inhaler) 1 puff INHALE Q4H PRN PRN Reason: Wheezing, Atorvastatin Calcium (Atorvastatin Calcium 10 Mg Tablet) 5 mg PO DAILY [facility] Last Admin: 04/07/24 08:54 Dose: 5 mg Benztropine Mesylate (Benztropine Mesylate 1 Mg Tablet) 1 mg PO BID [facility] Last Admin: 04/07/24 08:47 Dose: 1 mg Cyanocobalamin (Cyanocobalamin (Vitamin B-12) 1,000 Mcg Tablet) 1,000 mcg PO DAILY [facility] Last Admin: 04/07/24 08:47 Dose: 1,000 mcg Divalproex Sodium (Divalproex Sodium 500 Mg Tablet.Dr) 500 mg PO BEDTIME [facility] Last Admin: 04/06/24 20:43 Dose: 500 mg Docusate Sodium (Docusate Sodium 100 Mg Capsule) 100 mg PO BID PRN PRN Reason: Constipation Fluticasone/Vilanterol (Fluticasone/Vilanterol 100/25 Blst.W.Dev) 1 puff INHALE RDAILY [facility] Last Admin: 04/07/24 08:51 Dose: 1 puff Guaifenesin (Guaifenesin 200 Mg/10 Ml 10 Ml Liquid) 10 ml PO Q6H PRN PRN Reason: Cough Last Admin: 04/06/24 20:45 Dose: 10 ml Guaifenesin (Guaifenesin 100 Mg/5 Ml 5 Ml Liquid) 5 ml PO Q6H PRN PRN Reason: Cough Last Admin: 04/04/24 04:29 Dose: 5 ml Hydroxyzine HCl (Hydroxyzine Hcl 50 Mg Tablet) 50 mg PO QID PRN PRN Reason: SEVERE Anxiety Last Admin: 04/03/24 20:57 Dose: 50 mg Hydroxyzine HCl (Hydroxyzine Hcl 25 Mg Tablet) 25 mg PO Q6H PRN PRN Reason: Anxiety Last Admin: 03/29/24 14:36 Dose: 25 mg Levetiracetam (Levetiracetam 500 Mg Tablet) 1,500 mg PO BID [facility] Last Admin: 04/07/24 08:46 Dose: 1,500 mg Levothyroxine Sodium (Levothyroxine Sodium 100 Mcg Tablet) 100 mcg PO DAILY@0600 [facility] Last Admin: 04/07/24 05:59 Dose: 100 mcg Lisinopril (Lisinopril 5 Mg Tablet) 5 mg PO DAILY [facility]; Protocol Last Admin: 04/07/24 08:46 Dose: 5 mg Magnesium Hydroxide (Milk Of Magnesia 30 Ml Oral.Susp) 30 ml PO DAILY PRN PRN Reason: Constipation Last Admin: 04/01/24 20:21 Dose: 30 ml Melatonin (Melatonin 3 Mg Tablet) 12 mg PO BEDTIME [facility] Last Admin: 04/06/24 20:44 Dose: 12 mg Metformin HCl (Metformin Hcl 1,000 Mg Tablet) 1,000 mg PO BID [facility] Last Admin: 04/07/24 08:46 Dose: 1,000 mg Mirabegron (Mirabegron 50 Mg Tab.Er.24h) 50 mg PO DAILY [facility] Last Admin: 04/07/24 08:47 Dose: 50 mg Nystatin (Nystatin Ointment 15 Gm Tube) 1 appl TOPICAL BID [facility]; Protocol Last Admin: 04/07/24 08:56 Dose: 1 appl Nystatin/Triamcinolone Acetonide (Nystatin/Triamcinolone Oint 15 Gm Tube) 1 appl TOPICAL BID [facility]; Protocol Last Admin: 04/07/24 08:58 Dose: 1 appl Olanzapine (Olanzapine 5 Mg Tablet) 5 mg PO DAILY@1630 [facility] Last Admin: 04/06/24 15:47 Dose: 5 mg Olanzapine (Olanzapine 5 Mg Tablet) 5 mg PO BEDTIME [facility] Last Admin: 04/06/24 20:43 Dose: 5 mg Propranolol HCl (Propranolol Hcl 10 Mg Tablet) 10 mg PO BID [facility]; Protocol Last Admin: 04/07/24 08:48 Dose: 10 mg Psyllium Hydrophilic Mucilloid (Psyllium Seed 3.7 Gm Packet) 3.7 gm PO BID [facility] Last Admin: 04/07/24 08:48 Dose: Not Given Pyridoxine HCl (Pyridoxine Hcl (Vitamin B6) 50 Mg Tablet) 25 mg PO DAILY [facility] Last Admin: 04/07/24 08:53 Dose: 25 mg Senna (Sennosides 8.6 Mg Tablet) 17.2 mg PO BEDTIME PRN PRN Reason: Constipation Last Admin: 04/06/24 20:45 Dose: 17.2 mg Topiramate (Topiramate 25 Mg Tablet) 25 mg PO BID [facility] Last Admin: 04/07/24 08:47 Dose: 25 mg Trazodone HCl (Trazodone Hcl 50 Mg Tablet) 50 mg PO BEDTIME MRX1 PRN PRN Reason: Insomnia Last Admin: 04/03/24 20:57 Dose: 50 mg Vitamin D (Cholecalciferol (Vitamin D3) 25 Mcg Tablet) 50 mcg PO DAILY [facility] Last Admin: 04/07/24 08:47 Dose: 50 mcg Allergies Allergies Allergy/AdvReac Type Severity Reaction Status Date / Time oxcarbazepine Allergy Unknown Verified 03/22/24 20:38 [From Trileptal] peanut Allergy Unknown Verified 03/22/24 20:38 quetiapine [From Seroquel] Allergy Vomiting Verified 03/22/24 20:38 Assessment & Plan Assessment & Plan (1) Schizoaffective disorder: Status: Acute Code(s): F25.9 - Schizoaffective disorder, unspecified (2) HTN (hypertension): Status: Acute Code(s): I10 - Essential (primary) hypertension (3) Type 2 diabetes mellitus: Status: Acute Code(s): E11.9 - Type 2 diabetes mellitus without complications (4) Mild persistent asthma: Status: Acute Code(s): J45.30 - Mild persistent asthma, uncomplicated (5) Hypothyroidism: Status: Acute Code(s): E03.9 - Hypothyroidism, unspecified (6) Diabetic peripheral neuropathy: Status: Acute Code(s): E11.42 - Type 2 diabetes mellitus with diabetic polyneuropathy (7) CKD (chronic kidney disease): Status: Acute Code(s): N18.9 - Chronic kidney disease, unspecified (8) Seizure disorder: Status: Acute Code(s): G40.909 - Epilepsy, unspecified, not intractable, without status epilepticus Plan The patient is an elderly female with schizoaffective disorder and other medical comorbidities who was recently discharged from this facility for psychotic decompensation, stable but she did not receive most likely her Aristada injection in the community and went back grossly psychotic. On intake the patient was pleasant cooperative and could not understand why she was here. 04/04 Patient said she placed a 3 day notice which nursing attests. She says I am ready to go home... To know how long I have beenhere? She tells com writer it has been a month and that she only came in for medications. She is frustrated that she has remained here longer than she felt needed. Patient said she plans to go home and move in with a friend 04/06: Continue current regimen and plans 04/07: Continue current regimen and plans Plan 1. Gather collateral information. 2. The patient was able to contract for safety she will be on 15 minute checks. 3. Continue with regular medications. 4. Reassessment with results. 5. We are starting Abilify 10 mg p.o. at bedtime on March 28 since it is not clear if she received her Aristada the community. Later on we discontinue the Abilify since she received her Aristada injection after discharge last time. 6. Wound consult for 03/30 Reason for continued inpatient stay Substantial Risk for: med/psych decompensation Time Spent With Patient Time: Total time managing care of this patient today ____ minutes.
[2024-04-07] MEDS: OLANZapine 5 MG TABLET PO ×2 (16:48→20:21)
[2024-04-07 20:00] VITALS: BP 123/68; PULSE 73; RESP 18; TEMP 36.8; O2SAT 97
[2024-04-07] MEDS: Melatonin 3 MG TABLET 12 MG PO (20:20)
[2024-04-07] MEDS: Sennosides 8.6 MG TABLET 17.2 MG PO (20:20)
[2024-04-07] MEDS: traZODone HCL 50 MG TABLET PO (20:21)
[2024-04-07] MEDS: Divalproex Sodium 500 MG TABLET.DR PO (20:21)
[2024-04-07] MEDS: Acetaminophen 325 MG TABLET 975 MG PO (20:22)
[2024-04-07] MEDS: guaiFENesin 200 MG/10 ML 10 ML LIQUID PO (21:07)
[2024-04-08] MEDS: Levothyroxine Sodium 100 MCG TABLET PO (06:38)
[2024-04-08 06:50] LABS: Glucose, Whole Blood 117 mg/dL (60-115)
[2024-04-08 08:00] VITALS: BP 130/90; PULSE 82; RESP 18; TEMP 36.2; O2SAT 98
[2024-04-08] MEDS: Fluticasone/Vilanterol 100/25 BLST.W.DEV 1 PUFF INHALE (08:16)
[2024-04-08 08:17] VITALS: BP 130/90
[2024-04-08] MEDS: lisinopriL 5 MG TABLET PO (08:17)
[2024-04-08] MEDS: metFORMIN HCl 1,000 MG TABLET 1000 MG PO (08:17)
[2024-04-08] MEDS: levETIRAcetam 500 MG TABLET 1500 MG PO (08:17)
[2024-04-08] MEDS: Topiramate 25 MG TABLET PO (08:17)
[2024-04-08 08:18] VITALS: BP 130/90; PULSE 82
[2024-04-08] MEDS: Benztropine Mesylate 1 MG TABLET PO (08:18)
[2024-04-08] MEDS: Cyanocobalamin (Vitamin B-12) 1,000 MCG TABLET 1000 MCG PO (08:18)
[2024-04-08] MEDS: Propranolol HCL 10 MG TABLET PO (08:18)
[2024-04-08] MEDS: Atorvastatin Calcium 10 MG TABLET 5 MG PO (08:18)
[2024-04-08] MEDS: Pyridoxine HCl (Vitamin B6) 50 MG TABLET 25 MG PO (08:19)
[2024-04-08] MEDS: Cholecalciferol (Vitamin D3) 25 MCG TABLET 50 MCG PO (08:19)
[2024-04-08] MEDS: Mirabegron 50 MG TAB.ER.24H PO (08:19)
--- NOTE | 2024-04-08 08:44 | PM.PSYDC ---
DS: Providers Provider Date of Service: 04/08/24 Date of admission: 03/25/24 14:11 Date of discharge: 04/08/24 Primary care physician: Unknown Physician Attending physician on discharge: Jarad Caceres DS: Diagnosis Discharge Diagnosis (1) Schizoaffective disorder: Status: Acute (2) HTN (hypertension): Status: Acute (3) Type 2 diabetes mellitus: Status: Acute (4) Mild persistent asthma: Status: Acute (5) Hypothyroidism: Status: Acute (6) Diabetic peripheral neuropathy: Status: Acute (7) CKD (chronic kidney disease): Status: Acute (8) Seizure disorder: Status: Acute DS: Medications Discharge Medications Home Medications: Previous Rx's ?Medication ?Instructions ?Recorded Aristada 662 mg IM Q6W 30 days #1 kit 03/20/24 acetaminophen 650 mg 1,300 mg (2 x 650 mg) PO Q8H PRN 03/20/24 tablet,extended release Pain 30 days #90 tabs albuterol 90 mcg inhalation Q4H PRN SOB #1 03/20/24 inhaler aluminum-magnesium hydroxide 200 30 ml PO QID PRN Heartburn 30 days 03/20/24 mg-200 mg/5 mL oral suspension #300 mL (MAG-AL) benztropine 1 mg tablet 1 mg PO BID 30 days #60 tabs 03/20/24 cholecalciferol (vitamin D3) 25 50 mcg (2 x 25 mcg (1,000 unit)) 03/20/24 mcg (1,000 unit) tablet PO DAILY 30 days #60 tabs cyanocobalamin (vitamin B-12) 1,000 mcg PO DAILY 30 days #30 tabs 03/20/24 1,000 mcg tablet (Vitamin B-12) divalproex 500 mg tablet,delayed 500 mg PO BEDTIME 30 days #30 tabs 03/20/24 release docusate sodium 100 mg capsule 100 mg PO BID PRN Constipation 30 03/20/24 days #60 caps fluticasone furoate 100 1 inh inhalation DAILY 30 days #60 03/20/24 mcg-vilanterol 25 mcg/dose ea inhalation powder (Breo Ellipta) hydroxyzine HCl 50 mg tablet 50 mg PO QID PRN Anxiety 30 days 03/20/24 #60 tabs levetiracetam 500 mg tablet 1,500 mg (3 x 500 mg) PO BID 30 03/20/24 days #180 tabs levothyroxine 100 mcg tablet 100 mcg PO DAILY@0600 30 days #30 03/20/24 (Synthroid) tabs lisinopril 5 mg tablet 5 mg PO DAILY 30 days #30 tabs 03/20/24 melatonin 3 mg tablet 12 mg (4 x 3 mg) PO BEDTIME 30 03/20/24 days #120 tabs metformin 1,000 mg tablet 1,000 mg PO BID 30 days #60 tabs 03/20/24 mirabegron 50 mg tablet,extended 50 mg PO DAILY 30 days #30 tabs 03/20/24 release 24 hr (Myrbetriq) nystatin-triamcinolone 100,000 1 appl topical BID 30 days #5 grams 03/20/24 unit/gram-0.1 % topical ointment olanzapine 5 mg tablet 5 mg PO DAILY@1630 30 days #30 tabs 03/20/24 propranolol 10 mg tablet 10 mg PO BID 30 days #60 tabs 03/20/24 psyllium (Hydrocil Instant oral 1 packet PO BID 30 days #60 ea 03/20/24 packet) pyridoxine (vitamin B6) 50 mg 25 mg (1/2 x 50 mg) PO DAILY 30 03/20/24 tablet days #15 tabs sennosides 8.6 mg tablet (Senna 17.2 mg (2 x 8.6 mg) PO BEDTIME 03/20/24 Lax) PRN Constipation 30 days #60 tabs simvastatin 5 mg PO BEDTIME 30 days #30 tabs 03/20/24 topiramate 25 mg tablet 25 mg PO BID 30 days #60 tabs 03/20/24 Mental Status Exam Mental Status Exam Patient Appearance: Well Grooomed Patient Orientation: Person and Situation Level of Consciousness: Awake and Appropriate Patient Behavior: Guarded and Passive Mood Description: Calm Affect Description: Constricted Patient Cognition Impaired: Yes Ability to Follow Directions: Good Speech Pattern: Clear Hallucinations: None Delusions: Paranoid Ideation and Ideas of Reference Thought Process: Distracted and Slowed Thinking Thought Content: positive for [place] and positive for Circumstantial Judgement: Fair Data Data Completed and Pending Completed studies during hospitalization [Text1]: 04/02/24 04/03/24 04/04/24 05:45 06:12 06:17 Creatinine Estim Creat Clear Calc Estimated GFR POC Glucose 186 H 180 H 134 H Valproic Acid 04/05/24 04/05/24 04/06/24 05:58 08:48 05:57 Creatinine Estim Creat Clear Calc Estimated GFR POC Glucose 111 102 Valproic Acid 18.9 L 04/07/24 04/08/24 04/08/24 06:00 06:39 08:32 Creatinine Pending Estim Creat Clear Calc Pending Estimated GFR Pending POC Glucose 116 H 117 H Valproic Acid Imaging Diagnostic Imaging Impressions Chest X-Ray 03/23/24 01:46 IMPRESSION: There appears to be bronchial thickening which may be seen with bronchitis. There is no focal lung consolidation or pleural effusions Electronically signed by: Marcos Payne MD 03/23/2024 03:55 AM [facility] [place]: Summary Hospital Course Hospital Course: The patient is a 64-year-old female with a past history of schizoaffective disorder with several ancillary services such as pace program. She was recently discharged from this facility and while she was in the community she disclosed psychotic and paranoid statements that brought her back into the hospital. The patient was assessed on never emergency room and transferring to this facility for psychiatric stabilization. Please see the HPI of the admission note for further details. On admission, we try to gather collateral information from pace program. Apparently she really got her Aristada shot that it is her long acting injectable. On admission, the patient was chronically psychotic but easily redirectable with no safety concerns. She was added a 2nd antipsychotic Zyprexa at 16:00 to avoid sundowning. Also the patient had a history of dementia. The patient was able to participate in groups, she was future oriented. Even though she has some paranoid statements. We discussed at length risks, benefits, side-effects and alternatives and they agreed to increase Zyprexa at a 2nd dose at 5 mg at night on top of the 5 mg at 16:00. The patient was able to participate in groups, no changes in her mental status no evidence of side-effects. Since there were no safety concerns discharge planning was discussed. Time spent discussing smoking cessation with patient: 3 to 10 minutes Status at Discharge Cognitive/behavioral status at discharge: At baseline Functional status at discharge: independent ambulation Overall status at discharge: patient is back to baseline Time Spent with Patient Time attestation: Total time managing care of this patient today __30__ minutes. Time spent: Less than 30 minutes Discharge Plan Discharge Patient Disposition: Xfer LT Discharge Diagnosis: Schizoaffective disorder. Dementia. Referrals: Physician,Unknown J [Primary Care Provider] - 1 Week Discharge Medications: New trazodone 50 mg Tablet 50 mg PO BEDTIME MRX1 PRN (Reason: Insomnia) 30 Days Qty: 30 0RF nystatin 100,000 unit/gram Ointment 1 appl topical BID 30 Days Qty: 5 0RF Protocol: Apply to: Apply to: groin olanzapine 5 mg Tablet 5 mg PO BEDTIME 30 Days Qty: 30 0RF guaifenesin 100 mg/5 mL Liquid 100 mg PO Q6H PRN (Reason: Cough) 30 Days Qty: 300 0RF albuterol sulfate [Ventolin HFA] 90 mcg/actuation Hfa Aerosol Inhaler 1 puff inhalation Q4H PRN (Reason: Wheezing,) 30 Days Qty: 1 0RF Continued Aristada 662 mg IM Q6W 30 Days Qty: 1 0RF sennosides [Senna Lax] 8.6 mg Tablet 17.2 mg PO BEDTIME PRN (Reason: Constipation) 30 Days Qty: 60 0RF levetiracetam 500 mg Tablet 1,500 mg PO BID 30 Days Qty: 180 0RF Hydrocil Instant Packet 1 packet PO BID 30 Days Qty: 60 0RF olanzapine 5 mg Tablet 5 mg PO DAILY@1630 30 Days Qty: 30 0RF cyanocobalamin (vitamin B-12) [Vitamin B-12] 1,000 mcg Tablet 1,000 mcg PO DAILY 30 Days Qty: 30 0RF topiramate 25 mg Tablet 25 mg PO BID 30 Days Qty: 60 0RF hydroxyzine HCl 50 mg Tablet 50 mg PO QID PRN (Reason: Anxiety) 30 Days Qty: 60 0RF melatonin 3 mg Tablet 12 mg PO BEDTIME 30 Days Qty: 120 0RF divalproex 500 mg Tablet,Delayed Release (Dr/Ec) 500 mg PO BEDTIME 30 Days Qty: 30 0RF acetaminophen 650 mg Tablet Extended Release 1,300 mg PO Q8H PRN (Reason: Pain) 30 Days Qty: 90 0RF nystatin-triamcinolone 100,000-0.1 unit/gram-% Ointment 1 appl topical BID 30 Days Qty: 5 0RF levothyroxine [Synthroid] 100 mcg Tablet 100 mcg PO DAILY@0600 30 Days Qty: 30 0RF propranolol 10 mg Tablet 10 mg PO BID 30 Days Qty: 60 0RF metformin 1,000 mg Tablet 1,000 mg PO BID 30 Days Qty: 60 0RF benztropine 1 mg Tablet 1 mg PO BID 30 Days Qty: 60 0RF docusate sodium 100 mg Capsule 100 mg PO BID PRN (Reason: Constipation) 30 Days Qty: 60 0RF pyridoxine (vitamin B6) 50 mg Tablet 25 mg PO DAILY 30 Days Qty: 15 0RF lisinopril 5 mg Tablet 5 mg PO DAILY 30 Days Qty: 30 0RF MAG-AL 200-200 mg/5 mL Suspension 30 ml PO QID PRN (Reason: Heartburn) 30 Days Qty: 300 0RF cholecalciferol (vitamin D3) 25 mcg (1,000 unit) Tablet 50 mcg PO DAILY 30 Days Qty: 60 0RF mirabegron [Myrbetriq] 50 mg Tablet Extended Release 24 Hr 50 mg PO DAILY 30 Days Qty: 30 0RF fluticasone furoate-vilanterol [Breo Ellipta] 100-25 mcg/dose Blister With Device 1 inh INHALATION DAILY 30 Days Qty: 60 0RF simvastatin 5 mg PO BEDTIME 30 Days Qty: 30 0RF Discontinued albuterol 90 mcg inhalation Q4H PRN (Reason: SOB) Qty: 1 0RF Discharge Orders: Discharge Order (Routine); Ordered 04/08/24 Ordered By: Jarad Caceres Diet: Advance to usual diet Activity on Discharge: As tolerated Stand Alone Forms: Patient Portal Discharge page Print Language: Kinyarwanda Care Plan Goals: Care plan goals achieved in this admission Health Concerns: Continue treatment with primary care physician and other specialists Plan of Treatment: Continue psychiatric treatment as an outpatient. Assessment: Elderly female with schizoaffective disorder and dementia who was brought into the facility for psychotic symptoms and they were at baseline, we increase slightly he Zyprexa with for tolerability. At this moment no safety concerns.
[2024-04-08 08:52] LABS: Creatinine Clr Calc Pharmacy 62.3; Estimated Glomerular Filt Rate 58
[2024-04-08] MEDS: Nystatin Ointment 15 GM TUBE 1 APPL TOPICAL (09:50)
--- NOTE | 2024-04-08 10:16 | PC.NURSE ---
Lashanda was aware of discharge, reported readiness for discharge. D/C instructions given to the pt, verbalized understanding them. Lashanda took her belongings. Left the hospital accompanied by [facility] at 10:03.
== END 2024-04-08 10:03 | DRG 885 ==
LOC: HO.ED 03-23 11:31 → HO.PGERI 03-25 14:28
PROVIDERS: Emergency Medicine; Physician Assistant; Psychiatry & Neurology Psychiatry; Admitting Provider Psychiatry & Neurology Psychiatry; Emergency Provider Emergency Medicine Emergency Medical Services; Visit Provider Psychiatry & Neurology Psychiatry
DX: F25.9 Schizoaffective disorder, unspecified (principal); E03.9 Hypothyroidism, unspecified; J45.30 Mild persistent asthma, uncomplicated; E11.42 Type 2 diabetes mellitus with diabetic polyneuropathy; I12.9 Hypertensive chronic kidney disease with stage 1 through stage 4 chronic kidney disease, or unspecified chronic kidney disease; N18.9 Chronic kidney disease, unspecified; E11.22 Type 2 diabetes mellitus with diabetic chronic kidney disease; G40.909 Epilepsy, unspecified, not intractable, without status epilepticus; F03.90 Unspecified dementia, unspecified severity, without behavioral disturbance, psychotic disturbance, mood disturbance, and anxiety; Z20.822 Contact with and (suspected) exposure to COVID-19; Z91.148 Patient's other noncompliance with medication regimen for other reason; Z79.51 Long term (current) use of inhaled steroids; Z79.890 Hormone replacement therapy; Z79.84 Long term (current) use of oral hypoglycemic drugs; Z79.899 Other long term (current) drug therapy
CPT/HCPCS: 0241U; 36415; 71045; 80053; 80061; 80143; 80164; 80179; 80307; 81001; 82565; 82947; 83690; 85025; 87502; 87635; 93005; 99285; S9485

== ENCOUNTER → 2024-03-22 21:34 | Outpatient (BNV) | payer MEDICARE, MEDICAID, SELFPAY | PROVIDERS: Emergency Provider Emergency Medicine Emergency Medical Services; Visit Provider Psychiatry & Neurology Psychiatry | DX: F25.9 Schizoaffective disorder, unspecified (principal); I12.9 Hypertensive chronic kidney disease with stage 1 through stage 4 chronic kidney disease, or unspecified chronic kidney disease; E11.9 Type 2 diabetes mellitus without complications; J45.30 Mild persistent asthma, uncomplicated | CPT/HCPCS: 90792; 99232; 99499 ==

== ENCOUNTER → 2024-03-25 08:43 | Outpatient (BNV) | payer MEDICARE, MEDICAID, SELFPAY | PROVIDERS: Admitting Provider Psychiatry & Neurology Psychiatry; Emergency Provider Emergency Medicine Emergency Medical Services; Visit Provider Internal Medicine Cardiovascular Disease | DX: F25.9 Schizoaffective disorder, unspecified (principal) | CPT/HCPCS: 93010 ==

== ENCOUNTER 2024-12-05 12:28 | Inpatient (IN) | payer OTHER, MEDICAID, SELFPAY ==
--- NOTE | 2024-12-05 12:36 | ECG_ITS ---
Test Reason : EVAL Blood Pressure : */* mmHG Vent. Rate : 56 BPM Atrial Rate : 56 BPM P-R Int : 130 ms QRS Dur : 82 ms QT Int : 416 ms P-R-T Axes : 43 23 50 degrees QTcB Int : 401 ms Sinus bradycardia Otherwise normal ECG When compared with ECG of 25-Mar-2024 08:43, No significant change was found Referred By: Generic ED Physician Electronically Signed By: DEMETRIS GONZALEZ MD
[2024-12-05 12:49] VITALS: BP 130/68; PULSE 78; O2SAT 98
[2024-12-05 12:56] VITALS: BP 119/74; PULSE 65; RESP 14; TEMP 36.6; O2SAT 99; BMI 36.6
--- NOTE | 2024-12-05 13:52 | ED_ITS ---
HPI - General Adult General Chief complaint: Psychiatric Symptoms Stated complaint: HALLUCINATIONS/SOMEONE OUT TO GET HER,FROM PCP OFF Time Seen by Provider: 12/05/24 12:51 Source: patient Mode of arrival: ambulatory Limitations: no limitations History of Present Illness ED Provider: Pee Akins HPI narrative: 64 yold with pmh of schizophrenia and diabetes presents to the ED hallucinations for many months of men coming over her house to have sex with her. Patient's PCP sent patient to the ED to be evalauted for hallucinations. adalberto has been having hallucinations for months. Patient denies any suicidal or homicidal thoughts Related Data Home Medications ?Medication ?Instructions ?Recorded ?Confirmed levetiracetam 500 mg tablet 1,500 mg PO BID 12/05/24 0 12/06/24 Aristada 662 mg IM Q4W 12/06/2412/06 divalproex 500 mg tablet,extended 500 mg PO BEDTIME 12/06/24 release 24 hr gabapentin 100 mg capsule 100 mg PO TID 12/06/2412/06 lorazepam 0.5 mg tablet 0.5 mg PO BEDTIME 12/06/24 0 12/06/24 magnesium hydroxide 400 mg/5 mL 10 ml PO BID PRN Const ipation 12/06/24 12/06/24 oral suspension (Milk of Magnesia) miconazole nitrate 2 % topical 1 appl topical BID 11/1612/06/24 cream montelukast 10 mg tablet 10 mg PO BEDTIME 12/06/24 olanzapine 5 mg tablet 2.5 mg PO BID 12/06/2412/06 olanzapine 5 mg tablet 5 mg PO BEDTIME depressive d isorder 12/06/24 12/06/24 sennosides 8.6 mg tablet (Senna 17.2 mg PO BEDTIME Con stipation 12/06/24 12/06/24 Lax) Previous Rx's ?Medication ?Instructions ?Recorded albuterol sulfate 90 mcg/actuation 1 puff inhalation Q 4H PRN 04/08/24 aerosol inhaler (Ventolin HFA) Wheezing, 30 days #1 in haler benztropine 1 mg tablet 1 mg PO BID 30 days #60 tabs 04/08/24 fluticasone furoate 100 1 inh inhalation DAILY 30 da ys #60 04/08/24 mcg-vilanterol 25 mcg/dose ea inhalation powder (Breo Ellipta) levothyroxine 100 mcg tablet 100 mcg PO DAILY@0600 30 days #30 04/08/24 (Synthroid) tabs lisinopril 5 mg tablet 5 mg PO DAILY 30 days #30 ta bs 04/08/24 mirabegron 50 mg tablet,extended 50 mg PO DAILY 30 day s #30 tabs 04/08/24 release 24 hr (Myrbetriq) psyllium (Hydrocil Instant oral 1 packet PO BID 30 day s #60 ea 04/08/24 packet) pyridoxine (vitamin B6) 50 mg 25 mg (1/2 x 50 mg) PO D AILY 30 04/08/24 tablet days #15 tabs topiramate 25 mg tablet 25 mg PO BID 30 days #60 tab s 04/08/24 Allergies Allergy/AdvReac Type Severity Reaction Status Date / Time ibuprofen Allergy Wheezing Verified 12/05/24 13:10 oxcarbazepine (From Allergy Unknown Verified 03/22/24 20:38 Trileptal) peanut Allergy Unknown Verified 03/22/24 20:38 quetiapine (From Seroquel) Allergy Vomiting Verified 03/22/24 20:38 Review of Systems 2 Review of Systems: hallucinations Yes all other systems are reviewed and are negative PMFSH Past Medical History Medical History Stable angina History of melanoma HTN (hypertension) Mild persistent asthma FERMÍN (obstructive sleep apnea) Diabetic peripheral neuropathy NPH (normal pressure hydrocephalus) Seizure disorder CKD (chronic kidney disease) Hypothyroidism Type 2 diabetes mellitus Schizoaffective disorder Social History Social History Household Members: Spouse Household Members Other:: pt states she lives with her whom she got to last week Housing: Apartment Housing Other:: senior housing Do you presently have visiting nurse or other home services: Yes (home health aid) Patient Tobacco Use Status: Never used Tobacco Smoked in Last 30 Days: No e-Cigarette/Vaping Use: Never Used Second Hand Smoke Exposure: No Use of substances other than those prescribed or required for medical reasons: No Currently Displaying Signs/Symptoms of Drug Intoxication Withdrawal: No Have you been hit, kicked, punched, or otherwise hurt by someone within the past year? If so, by whom?: No Do you feel safe in your current relationship?: Yes Is there a partner from a previous relationship who is making you feel unsafe now?: Yes (pt declines to specify) Are you made to feel afraid or neglected: No [facility] Practices: religion Advance Directives: No Advance Directives Information Provided: Yes Do you have thoughts of harming others: None Do you have a plan to hurt others: No Plan Recently lost weight without trying: No How much weight loss: Not applicable Eating poorly because of decreased appetite: No Nutrition screen score: 0 Nutrition Risks: No Nutritional Risk Patient : No : No Poor oral hygiene: No service: No Sexual orientation: Straight/Heterosexual Physical Exam ED Vital Signs: Vital Signs - 24 hr 12/05/24 12:56 Temperature 97.9 F Pulse Rate 65 Respiratory Rate 14 Blood Pressure 119/74 Pulse Oximetry 99 Oxygen Delivery Method Room Air BMI result Body Mass Index 36.6 Const General: cooperative, healthy appearing, comfortable, no acute distress, well developed, alert, awake and Physically active Orientation/consciousness: patient oriented x3 [facility] Head: Yes normal to inspection, Yes No palpable skull fracture present, Yes normocephalic and Yes atraumatic Eyes General: appearance normal, both eyes and all related structures Neck Neck: Yes normal visual inspection, Yes full ROM, Yes no lymphadenopathy, Yes no meningeal signs, Yes trachea midline, Yes supple, No anterior neck swelling and No tender Chest Chest palpation & inspection: normal inspection of the chest and normal palpation of entire chest wall Resp Effort & Inspection: normal respiratory effort and able to speak in complete sentences Auscultation: clear to auscultation bilaterally Cardio Jugular venous distension: no JVD Heart sounds: S1 normal heart sound present and S2 normal heart sound present GI Inspection: Yes normal to inspection Palpation (GI): Soft to palpation, not firm, nontender, no guarding and not rigid General: Yes no CVA tenderness Back/Spine/Pelvis Back: no CVA tenderness and No back tenderness Skin General skin exam: no rashes or lesions noted, elasticity normal and turgor normal Neuro General: patient oriented x3, gait normal, tone normal, moves all extremities, Normal light touch and pain sensation, no meningeal signs, no focal motor deficits, CN's II-XI intact bilaterally and normal sensation to monofilament Extrem General: Yes normal to inspection, Yes full ROM and Yes capillary refill normal Psych Appearance: grossly normal, well kempt and not disheveled Course Reevaluation(s) Reevaluation #1: 6:16 PM 12/05/2024 (Dr. Carolynn Cabello, D.O.) Time: 18:16 Date: 12/05/24 Provider: Carolynn Cabello, DO Patient in physician observation for psychiatric evaluation.? No acute events reported today. No current complaints. VS stable.? Patient is in bed search status for macie IPLOC. Will continue to monitor. Medications Administered Generic Name Dose Route Start Last Admin Trade Name Freq PRN Reason Stop Dose Admin Acetaminophen 650 mg 12/06/24 16:53 12/09/24 21:04 Acetaminophen 325 Mg Tablet PO 650 mg Q6H PRN Administration Headache/Pain, Scale 1-10 Benztropine Mesylate 1 mg 12/06/24 21:00 12/10/24 08:44 Benztropine Mesylate 1 Mg Tablet PO 1 mg BID LUCY Administration Divalproex Sodium 500 mg 12/06/24 21:00 12/09/24 20:31 Divalproex Sodium Er 500 Mg Tab.Er.24h PO 500 mg BEDTIME LUCY Administration Fluticasone/Vilanterol 1 puff 12/07/24 08:00 12/10/24 08:42 Fluticasone/Vilanterol / Blst.W.Dev INHALE 1 puff RDAILY LUCY Administration Gabapentin 100 mg 12/06/24 21:00 12/10/24 08:44 Gabapentin 100 Mg Capsule PO 100 mg TID LUCY Administration Levetiracetam 1,500 mg 12/06/24 21:00 12/10/24 08:43 Levetiracetam 500 Mg Tablet PO 1,500 mg BID LUCY Administration Levothyroxine Sodium 100 mcg 12/07/24 06:00 12/10/24 05:58 Levothyroxine Sodium 100 Mcg Tablet PO 100 mcg DAILY@0600 LUCY Administration Lisinopril 5 mg 12/07/24 09:00 12/10/24 08:44 Lisinopril 5 Mg Tablet PO 5 mg DAILY LUCY Administration Protocol Lorazepam 0.5 mg 12/06/24 21:00 12/09/24 20:29 Lorazepam 0.5 Mg Tablet PO 0.5 mg BEDTIME LUCY Administration Miconazole Nitrate 1 appl 12/06/24 21:00 12/09/24 22:13 Miconazole 2 % Extra Thick Cr 56.7 Gm Tube TOPICAL Not Given BID [facility] Protocol Mirabegron 50 mg 12/07/24 09:00 12/10/24 08:43 Mirabegron 50 Mg Tab.Er.24h PO 50 mg DAILY LUCY Administration Montelukast Sodium 10 mg 12/06/24 21:00 12/09/24 20:31 Montelukast Sodium 10 Mg Tablet PO 10 mg BEDTIME LUCY Administration Olanzapine 2.5 mg 12/06/24 21:00 12/10/24 08:44 Olanzapine 2.5 Mg Tablet PO 2.5 mg BID LUCY Administration Olanzapine 5 mg 12/06/24 21:00 12/09/24 20:30 Olanzapine 5 Mg Tablet PO 5 mg BEDTIME LUCY Administration Psyllium Hydrophilic Mucilloid 3.7 gm 12/06/24 21:00 12/10/24 08:42 Psyllium Seed 3.7 Gm Packet PO 3.7 gm BID LUCY Administration Pyridoxine HCl 25 mg 12/07/24 09:00 12/10/24 08:44 Pyridoxine Hcl (Vitamin B6) 50 Mg Tablet PO 25 mg DAILY LUCY Administration Senna 17.2 mg 12/06/24 21:00 12/09/24 20:31 Sennosides 8.6 Mg Tablet PO 17.2 mg BEDTIME LUCY Administration Topiramate 25 mg 12/06/24 21:00 12/10/24 08:44 Topiramate 25 Mg Tablet PO 25 mg BID LUCY Administration Discontinued Medications Generic Name Dose Route Start Last Admin Trade Name Tsering PRN Reason Stop Dose Admin Melatonin 12 mg 12/05/24 23:52 12/06/24 00:18 Melatonin 3 Mg Tablet PO 12/05/24 23:53 12 mg ONCE ONE Administration Medical Decision Making Medical Decision Making MDM Narrative: 64-year-old female presents to the ED for chronic hallucinations with men Landers over at night to have sex with her. Primary care sent her for evaluation. Patient is not in distress. Patient is not suicidal. Labs care team consult placed. 5:48pm: Patient is medically clear. Patient awaiting care team evaluation. 6;07pm: Spoke with Dr. Michelle Castillo medical assistant prn Of [employer] whos sent patient to [facility]. She states patient usually has chronic auditory hallucinations, but now has visual hallucinations with the auditory hallucinations which consists of 2 med Kay Garrison who she thinks have sex with her every night. She has a diagnosis of schizoaffective disorder that has become more paranoid. She states patient has not improved on Risperdal or Abilify and Modi. He states patient was last discharged with the olanzapine. She states patient should be admitted to psych inpatient due to psychosis and severe paranoid schizophrenia. She states patient has reliable housing at [facility] and they will take her on oral meds. 6:13: Miquel Alexander of care team evaluation patient and states patient should be admitted for decompensation Differential Diagnosis Differential Diagnoses: The differential diagnosis associated with the presentation includes (SI auditory visual hallucination) Admission/Observation Consideration of admission/observation: Escalation of care including admission/observation considered Consult Healthcare Provider Management of the patient was discussed with: Item Repair Manager (Care team) Lab Data MDM Lab Attestation statement: I reviewed the patient's lab results. 12/05/24 13:54 12/05/24 13:54 Labs: Lab Results 12/05/24 12/05/24 12/06/24 Range/Units 13:51 13:54 07:35 WBC 7.7 (4.8-10.8) X10*3/uL RBC 4.31 (4.20-5.50) X10*6/uL Hgb 13.4 (12.0-16.0) g/dl Hct 39.5 (37.0-47.0) % MCV 91.6 (80.0-98.0) fL MCH 31.1 (27.0-33.0) pg MCHC 33.9 (31.0-35.0) g/dl RDW 12.6 (11.0-16.0) % Plt Count 232 D (160-400) X10*3/uL MPV 9.3 L (9.4-12.3) fL Immature Gran % (Auto) 0.3 (0.0-0.4) % Neut % (Auto) 51.5 (45-73) % Lymph % (Auto) 33.6 (20-40) % [place] % (Auto) 6.9 (2-11) % Eos % (Auto) 6.9 H (0-4) % Baso % (Auto) 0.8 (0-2) % Lymph # (Auto) 2.6 (1.2-4.9) X10*3/uL [place] # (Auto) 0.5 (0.1-1.2) X10*3/uL Eos # (Auto) 0.5 H (0.0-0.4) X10*3/uL Baso # (Auto) 0.1 (0.0-0.2) X10*3/uL Abs Immat Gran (auto) 0.02 (0.00-0.03) X10*3/uL Absolute Neuts (auto) 4.0 (2.0-8.3) x10*3/uL Absolute Nucleated RBC 0.000 (0.0-0.012) X10*3/uL Nucleated RBC % (auto) 0.0 (0.0-0.2) /100WBC Sodium 142 (135-145) mmol/L Potassium 4.1 (3.3-5.1) mmol/L Chloride 108 (96-108) mmol/L Carbon Dioxide 27 (22-29) mmol/L Anion Gap 11 L (12-20) BUN 21 H (9-16) mg/dL Creatinine 1.06 (0.5-1.4) mg/dL Estim Creat Clear Calc 55.3 Estimated GFR 52 POC Glucose 137 H (60-115) mg/dL Random Glucose 129 H (60-115) mg/dL Calcium 9.2 (8.4-10.2) mg/dL Total Bilirubin 0.2 (0.0-1.0) mg/dL AST 19 (5-31) U/L ALT 22 (0-31) U/L Alkaline Phosphatase 60 (39-117) U/L Total Protein 6.9 (6.5-8.0) g/dL Albumin 4.4 (3.5-5.0) g/dL Hold Red Top See Note Hold Yellow Top See Note Urine Color Yellow Urine Appearance Clear Urine pH 6.5 (5.0-9.0) Ur Specific [place] 1.010 (1.005-1.025) Urine Protein Negative (Neg-Trace) mg/dL Urine Glucose (UA) Negative (Negative) mg/dL Urine Ketones Negative (Negative) mg/dL Urine Blood Negative (Negative) Urine Nitrite Negative (Negative) Ur Leukocyte Esterase Small (1+) H (Negative) Urine RBC 0-2 (0-2) /HPF Urine WBC 0-5 (0-5) /HPF Ur Squamous Epith Cells 0-2 (0-2) /HPF Urine Bacteria None Seen (None Seen) Hyaline Casts 0-2 (0-2) /LPF Urine Opiates Screen Not Detected (Not Detect) Ur Buprenorphine Scrn Not Detected (Not Detect) ng/mL Ur Oxycodone Screen Not Detected (Not Detect) ng/mL Urine Methadone Screen Not Detected (Not Detect) ng/mL Urine Fentanyl Screen Not Detected (Not Detect) Ur Barbiturates Screen Not Detected (Not Detect) Ur Phencyclidine Scrn Not Detected (Not Detect) Ur Amphetamines Screen Not Detected (Not Detect) U Benzodiazepines Scrn Not Detected (Not Detect) Urine Cocaine Screen Not Detected (Not Detect) U Marijuana (THC) Screen Not Detected (Not Detect) Independent Interpretation I performed an independent interpretation of an: EKG (Sinus Bradycardia) Independent Historian Clinical information obtained from an independent historian. History obtained from or confirmed by: Other (Patient) Discharge Plan Discharge Clinical Impression: Paranoid delusion, Hallucinations Patient Disposition: Admitted As Inpatient Interventions: Admission Worksheet (ED) Last Done: 12/06/24 15:36 Discharge Date/Time: 12/06/24 16:05
[2024-12-05 14:03] LABS: MANUAL DIFF FLAG NO
[2024-12-05 14:10] LABS: Hematocrit 39.5 % (37.0-47.0); Hemoglobin 13.4 g/dl (12.0-16.0); Imm Gran Pct Auto 0.3 % (0.0-0.4); Mean Corpuscular HGB Conc 33.9 g/dl (31.0-35.0); Mean Corpuscular Hemoglobin 31.1 pg (27.0-33.0); Mean Corpuscular Volume 91.6 fL (80.0-98.0); NRBC Pct Auto 0.0 /100WBC (0.0-0.2); Platelet Count 232 X10*3/uL (160-400); Red Blood Count 4.31 X10*6/uL (4.20-5.50); White Blood Count 7.7 X10*3/uL (4.8-10.8)
[2024-12-05 14:11] LABS: Appearance Urine Clear; Glucose Urine UA Negative (Negative); Imm Gran Abs Auto 0.02 X10*3/uL (0.00-0.03); Lymphocytes Absolute Auto 2.6 X10*3/uL (1.2-4.9); NRBC Abs Auto 0.000 X10*3/uL (0.0-0.012); PH 6.5 (5.0-9.0); Specific Gravity - Urine 1.010 (1.005-1.025); UMIC TRIGGER UACC YES
--- OUTSIDE RECORDS SUMMARY | 2024-12-05 14:17 | XMS_ITS | Clinical Summary ---
Author Organization [facility] Address [address] [place] [address] Care Team Providers Care Ship Scaler Name Role Phone Regulo Ivy Primary Care Provider [phone] Allergies Active Allergy Reactions Criticality Noted Date Comments Peanut Unknown 05/05/2021 Quetiapine Vomiting 05/05/2021 Oxcarbazepine Unknown Medications levothyroxine (SYNTHROID, LEVOTHROID) 100 mcg tablet Take 100 mcg by mouth daily. 7 Active lisinopril (PRINIVIL,ZESTR IL) 10 mg tablet Take 10 mg by mouth daily. 1 Active OLANZapine (ZyPREXA) 5 mg tablet Take 30 mg by mouth once a day. 7 Active montelukast (SINGULAIR) 10 mg tablet Take 10 mg by mouth daily. 7 Active docusate sodium (COLACE) 100 mg capsule Take 100 mg by mouth 2 times a day. Active metFORMIN (GLUCOPHAGE) 500 mg tablet Take 1,000 mg by mouth 2 (two) times a day. 5 Active oxybutynin XL (DITROPAN XL) 10 mg tablet Take 10 mg by mouth. 0 7 Active DULERA 200-5 mcg/actuation inhaler Inhale 2 puffs by mouth. 0 7 Active polyethylene glycol 3350 (MIRALAX) 17 gram packet Polyethylene Glycol 3350 Oral Powder take 17GM (DISSOLVED IN WATER) by mouth once daily Quantity: 527; Refills: 0 Started [id number] Active 5 Active albuterol (PROAIR HFA,VENTOLIN HFA) 90 mcg inhaler 1 Active meclizine (ANTIVERT) 25 mg tablet 1 9 Active omeprazole (PriLOSEC) 20 mg capsule 0 8 Active NYSTOP 100,000 unit/gram powder 9 Active benztropine (COGENTIN) 0.5 mg tablet Take 1 mg by mouth 2 times a day. 3 9 Active amoxicillin (AMOXIL) 500 mg capsule 1 Active hydrOXYzine HCL (ATARAX) 25 mg tablet Take 50 mg by mouth every night. Active Myrbetriq 50 mg tablet Take 1 tablet by mouth once a day. 1 Active vitamin B-12 1,000 mcg tabletIndicatio ns:B12 deficiency TAKE 1 TABLET BY MOUTH ONCE DAILY 30 tablet 5 2 Active senna 8.6 mg tablet Take 2 tablets by mouth once a day. Active propranoloL (INDERAL) 10 mg tablet Take 10 mg by mouth 2 times a day. 3 Active oxyCODONE-aceta minophen (PERCOCET) 5-325 mg tablet Take 1 tablet by mouth every night. 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 Take with 100 mg tab for total evening dose of 150 mg 30 tablet 5 4 Active Active Problems Problem Noted Date Diagnosed Date Parkinsonism 10/03/2023 Assessment & Plan (10/03/2023 12:41 PM EDT): Today patient and family reported a somewhat vague time course of bilateral tremors in the arms and sometimes legs, particularly when the patient is at rest. Family notes that the tremor is not as bad as it has been in the past. On exam, the tremor is parkinsonian in nature (at rest, slow), roughly symmetric, and clearly affecting the arms. There is mild cogwheeling at the wrist bilaterally. She has no other definite parkinsonian signs, though importantly her exam is significantly confounded by her body habitus and chronic mobility issues. The symptom is currently favored to represent medication-induced parkinsonism (e.g. olanzapine), and I again emphasized importance of establishing care with a psychiatrist to manage her antipsychotic medication. Consider further workup for PD in the future if things are worsening. 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 This is potentially compatible with prior ambulatory EEG reports, though it is really difficult to tease apart which of her symptoms are related to epilepsy versus PNES vs medication side effects versus chronic psychiatric comorbidity versus other medical conditions. We discussed repeating an ambulatory EEG test to quantify how frequently the patient is truly having seizures. In the meantime I suggested increasing the topiramate dose to 150 mg in the evening. I emphasized importance of following up with her sleep study to see if she still has FERMÍN and needs CPAP. We again reviewed her neuroimaging today, which shows enlarged lateral ventricles bilaterally, though notably she has no specific signs of hydrocephalus. Consider repeat imaging at a future visit. Unfortunately patient did not bring an up-to-date/accurate medication list today, so it still do not have the sense of what medication she is/is not taking. I emphasized the importance of providing us with an updated medication list. Assessment & Plan (03/30/2023 5:10 PM EST): Patient presents today to reestablish care since I returned to [facility]. Since she was last seen in August 2021, her reported seizure frequency has been roughly stable: Generalized tonic-clonic seizures seem to be occurring less than once a year, though she has many generalized nonmotor/?absence seizures characterized by unresponsiveness and eye flutter multiple times per day, difficult to quantify. This is all consistent with prior documented seizure frequency. Additionally, the patient looks much better clinically today than I have ever seen her before; she is more briskly interactive and in better spirits than I have ever seen her. I am open to increasing her ASMs in the future as needed, however given how much better she looks today, I would be hesitant to make changes at this time. She is now using blister packs to ensure medication adherence, which seems to be a good system for her. Her ASM regimen is slightly different than was last documented, and it is not clear whether this was due to changes made by her PCP, or if there have been miscommunications in the past as she was never quite sure of her ASM regimen in the past (she brought a list today). She is taking a vitamin B12 supplement as previously prescribed. In any case, I recommended checking labs today for ASM levels, vitamin levels, etc. I recommended a sleep medicine referral again regarding her sleep apnea diagnosis to confirm the diagnosis, and see if she is a candidate for CPAP and/or the Inspire device. I recommended physical therapy given her chronic deconditioning and fall risk, as she remains wheelchair-bound for much of the day. Will plan to see her back in 6 months, sooner as needed. Hydrocephalus 08/07/2013 Hypothyroidism 10/25/2008 Migraine headache 10/25/2008 Asthma 10/25/2008 Hypertension 10/25/2008 Obesity 10/25/2008 Depression 10/25/2008 FERMÍN (obstructive sleep apnea) 10/25/2008 Assessment & Plan (10/03/2023 12:36 PM EDT): Sleep study pending for October 2023 Family History Medical History Relation Name Comments Other Father Family History of malignant neoplasm of prostate Other Mother Family history of Cancer, colon /Family History of hypertension /Family History of type 2 diabetes mellitus Relation Name Status Comments Father Mother Social History Tobacco Use Types Packs/Day Years Used Date Smoking Tobacco: Never Smokeless Tobacco: Never Tobacco Cessation:Counseling Given: Not Answered Comments:: Alcohol Use Standard Drinks/Week Comments No 0 (1 standard drink = 0.6 oz pur e alcohol) Comments Unknown Sex and Gender Information Value Date Recorded Sex Assigned at Female 02/14/2021 11:26 AM EDT Legal Sex Female 12:12 AM EDT Gender Identity Female 02/14/2021 11:26 AM EDT Sexual Orientation Straight 02/14/2021 11 :26 AM EDT Last Filed Vital Signs Vital Sign Reading Time Taken Comments Blood Pressure 125/78 10/03/2023 11:16 AM EDT Pulse 73 10/03/2023 11:16 AM EDT Temperature 36.2 C (97.2 F) 10/03/2023 11:16 AM EDT Respiratory Rate 20 10/03/2023 11:1 6 AM EDT Oxygen Saturation 98% 01/16/2019 1:22 PM EDT Inhaled Oxygen Concentration - - Weight 105.3 kg (232 lb 3.2 oz) 024 11:16 AM EDT Height 152.4 cm (5') 09/08/2021 11:38 AM EDT Body Mass Index 45.35 09/08/2021 11:38 AM EDT Plan of Treatment Health Maintenance Due Date Last Done Comments Cologuard 1959 Colon Cancer Screening 1959 Colonoscopy 1959 FOBT / Fit Test 1959 HIV Screening 1959 Hepatitis C Screening 1959 Sigmoidoscopy 1959 Mammogram 1999 Osteoporosis Screening 2009 RSV Vaccine (60+ years old and patients) (1 - Risk 60-74 years 1-dose series) 2019 Pneumococcal Vaccine: 50+ Years (2 of 2 - PCV) 12/29/2020 12/30/2019, 12/09/2014, 03/05/2013 DTaP,Tdap,and Td Vaccines (2 - Td or Tdap) 08/28/2021 08/29/2011 COVID-19 Vaccine (5 - season) 2023 01/13/2022, 02/07/2021, 07/30/2020, Additional history exists Basic Metabolic Panel 03/30/2024 03/30/2023 , 01/27/2021, 08/12/2020, Additional history exists Alcohol/Substance Use Screening 04/17/2024 Depression Screening and Follow-Up 04/17/2024 Health Care Proxy Review 04/17/2024 Social Drivers of Health Annual Screening 04/17/2024 Influenza Vaccine (#1) 2024 2, 02/07/2021, 12/30/2019, Additional history exists Zoster Vaccines Completed 02/28/2020, 12/30/2019 Hepatitis B Vaccines Aged Out No long er eligible based on patient's age to complete this topic Procedures * Due to [place] [employer] law, this organization might not be sharing negative HIV tests. Procedure Name Priority Date/Time Associated Diagnosis Comments COMPREHENSIVE METABOLIC PANEL Routine 03/30/2023 3:13 PM EST Intractable generalized idiopathic epilepsy without status epilepticus from Last 3 Months or Most Recently Relevant to Health Maintenance Results * Due to [facility] law, this organization might not be sharing negative HIV tests. * (ABNORMAL) Comprehensive Metabolic Panel (03/30/2023 3:13 PM EST) NA 138 135 - 145 mmol/L 03/30/2023 5:42 PM EST [facility] K 4.1 3.5 - 5.3 mmol/L 03/30/2023 5:42 PM EST [facility] Cl 104 97 - 110 mmol/L 03/30/2023 5:42 PM EST [facility] CO2 22(L) 24 - 32 mmol/L 03/30/2023 5:42 PM EST [facility] Anion Gap 12 5 - 15 03/30/2023 5:42 PM EST [facility] Glucose 133(H) 70 - 99 mg/dL 03/30/2023 5:42 PM EST [facility] Creatinine 1.03 0.50 - 1.20 mg/dL 03/30/2023 5:42 PM EST [facility] Calcium 9.4 8.7 - 10.7 mg/dL 03/30/2023 5:42 PM EST [facility] Total Protein 7.2 6.0 - 8.0 g/dL 03/30/2023 5:42 PM EST [facility] Albumin 4.4 3.5 - 4.8 g/dL 03/30/2023 5:42 PM EST [facility] Bilirubin, Total 0.3 0.3 - 1.2 mg/dL 03/30/2023 5:42 PM EST [facility] Alkaline Phosphatase 54 30 - 115 U/L 03/30/2023 5:42 PM EST [facility] AST 12 10 - 40 U/L 03/30/2023 5:42 PM EST [facility] ALT 17 10 - 40 U/L 03/30/2023 5:42 PM EST [facility] BUN 17 7 - 23 mg/dL 03/30/2023 5:42 PM EST [facility] eGFR 61 >=60 mL/min/1. 73m2 03/30/2023 5:42 PM EST [email or web address] Comment:The estimated glomer ular filtration rate (eGFR) is calculated using a new formula developed by the NKF-ASN task force to eliminate race-based correction factors. The new formula uses serum/plasma creatinine, age, and gender to determine eGFR. A value below 60mls/min might indicate kidney disease and will be flagged. For additional information, see Deepak et al, Am J Kidney Dis. 2021;79(2):268- 288, A Unifying Approach for GFR estimation: Recommendations of the NKF-ASN Task Force on Reassessing the Inclusion of Race in Diagnosing Kidney Disease . Blood Structure of peripheral vein / Unknown Venipuncture / Unknown 03/30/2023 3:13 PM EST 03/30/2023 4:49 PM EST us Juni Caro MD LAB BLOOD ORDERABLES Final Resul t [facility] [address] [place] [address], from Last 3 Months or Most Recently Relevant to Health Maintenance Insurance [facility] Care Teams Ship Scaler Relationship Specialty Start Date End Date Regulo Ivy [address] [place] [id number] PCP - General 03/27/23
[2024-12-05 14:20] LABS: Cannabinoid Screen Urine Not Detected (Not Detect)
[2024-12-05 14:23] LABS: UACC Culture Trigger YES
[2024-12-05 14:32] LABS: Alanine Aminotransferase 22 U/L (0-31); Albumin Level 4.4 g/dL (3.5-5.0); Alkaline Phosphatase 60 U/L (39-117); Anion Gap 11 (12-20); Aspartate Amino Transferase 19 U/L (5-31); Blood Urea Nitrogen 21 mg/dL (9-16); Calcium 9.2 mg/dL (8.4-10.2); Carbon Dioxide 27 mmol/L (22-29); Chloride 108 mmol/L (96-108); Creatinine Clr Calc Pharmacy 55.3; Estimated Glomerular Filt Rate 52; Potassium 4.1 mmol/L (3.3-5.1); Sodium 142 mmol/L (135-145); Total Protein 6.9 g/dL (6.5-8.0)
[2024-12-06 00:37] VITALS: BP 108/55; PULSE 58; RESP 16; TEMP 37.1; O2SAT 94
--- NOTE | 2024-12-06 03:05 | PC.NURSE ---
This global technical writer assumed care of this Pt at this time. Pt appears to be sleeping at this time. Equal, nonlabored respiration, no apparent distress.
--- NOTE | 2024-12-06 07:34 | PC.NURSE ---
This RN assumed care of patient @ 0700 Patient resting in bed, c/o being tired but not sleepy. Patient reports not sleeping last night. Denies A/V hallucination. Denies SI HI Denies pain, SOB Patient continues to be a bed search
[2024-12-06 07:39] LABS: Glucose, Whole Blood 137 mg/dL (60-115)
--- NOTE | 2024-12-06 08:02 | PC.NURSE ---
Yuriter in place. Yuriter reported to this RN patient is self dialoguing at this time. Patient reports speaking to someone named Bernardino Denies harmful commands from auditory hallucinations at this time
--- NOTE | 2024-12-06 09:14 | PC.NURSE ---
Report received from Bernardino Field RN. Moved from ED 8 to 2. Assumed care of the patient at this time. Ambulated with walker, escorted by this RN, Remington supervisor boarding, & security without issue. Bedsearch, section 12. Occasionally talking to herself, otherwise in behavioral control at this time.
--- NOTE | 2024-12-06 09:28 | PC.NURSE ---
Breakfast tray not received this AM per patient and Remington (loan closer/sitter). Given ham sandwich, cheese stick, and coffee with 3 half/half as requested. Called kitchen. Kitchen staff to bring regular safety tray as ordered to 2. Care ongoing by this RN.
--- NOTE | 2024-12-06 10:54 | PHA.MEDREC ---
Pharmacy Consult ? Medication Reconciliation Pharmacy has completed the medication reconciliation. Received medication list from Ira Hollins at [facility] ([phone])
--- NOTE | 2024-12-06 12:22 | PC.NURSE ---
Patient is sitting upright in Pod living room. Ate breakfast tray this AM. Plan for geriatric psych admission later today, per Zohreh Callejas ( admissions). Awaiting bed assignment. Care ongoing by this RN.
--- NOTE | 2024-12-06 12:57 | PC.NURSE ---
Per admissions, patient to be admitted to [facility] later today. Spoke with [facility] staff member, Justa Leon, who requested a call back upon admission. Call back # . Awaiting bed assignment.
[2024-12-06 15:44] VITALS: BP 121/69; PULSE 86; RESP 18; TEMP 36.2; O2SAT 98
--- NOTE | 2024-12-06 15:45 | PC.NURSE ---
RN to RN report given to Clemencia by phone. Plan to admit to room 181-1 ([facility]).
[2024-12-06 16:45] VITALS: BP 108/57; PULSE 60; RESP 16; TEMP 36.9; O2SAT 94
[2024-12-06 16:56] VITALS: BMI 41.4
--- NOTE | 2024-12-06 18:53 | PC.ADMIT ---
Lashanda was admitted to on 12/06/24 at 16:07 from [facility] for the treatment of auditory and visual hallucinations. She declined to sign CV on arrival and is on a 12B. Skin/contraband check was completed by this short story writer and [facility] Елен[facility]. She was noted to have red raised areas under bilateral breasts and a reddened rash to left side of groin. She told this short story writer she got one week ago and lives with her . When asked if she is having any auditory or visual hallucinations, she stated I can hear and see through josé, but its real. They tested me down there and it turns out I'm a genius . She denies suicidal and homicidal thoughts and intent. She was pleasant and cooperative with admission interview. She states she does not like coming here and wants to go home because it is loud and she has a hard time. She utilizes a walker and was placed on 5 minute checks for safety.
[2024-12-06 20:00] VITALS: BP 129/71; PULSE 64; RESP 16; TEMP 36.4; O2SAT 95
[2024-12-06] MEDS: Psyllium seed 3.7 GM PACKET PO (21:12)
[2024-12-06] MEDS: Miconazole 2 % Extra Thick Cr 56.7 Gm Tube 1 APPL TOPICAL (21:19)
[2024-12-07 07:21] LABS: Hemoglobin A1C 172.6535 umol/L; Total Hemoglobin (HGBA1C) 3604.6373 umol/L
[2024-12-07 07:34] LABS: Ammonia 30 umol/L (13-55)
[2024-12-07 07:51] LABS: Cholesterol 187 mg/dL (<200); HDL Cholesterol 44 mg/dL (>40); Triglycerides 112 mg/dL (<150)
[2024-12-07 08:04] LABS: Free T4 (Free Thyroxine) 1.08 ng/dL (0.71-1.85); Thyroid Stimulating Hormone 2.47 uIU/mL (0.32-4.0)
[2024-12-07 08:07] VITALS: BP 115/71; PULSE 85; RESP 18; TEMP 36.4; O2SAT 97
[2024-12-07 08:19] LABS: Folate 8.3 ng/mL (> or = 4.0); Vitamin B12 509 pg/mL (200-900)
[2024-12-07] MEDS: Psyllium seed 3.7 GM PACKET PO ×2 (08:29→20:23)
[2024-12-07] MEDS: Mirabegron 50 MG TAB.ER.24H PO (08:29)
[2024-12-07] MEDS: Fluticasone/Vilanterol 100/25 BLST.W.DEV 1 PUFF INHALE (08:35)
[2024-12-07] MEDS: Miconazole 2 % Extra Thick Cr 56.7 Gm Tube 1 APPL TOPICAL ×2 (08:35→20:23)
--- NOTE | 2024-12-07 10:35 | HO.PSYADMNOT ---
HPI Date of Service: 12/07/24 Chief Complaint: Psychosis Sources of Information: patient interviewed, chart reviewed and crisis/core team assessment reviewed Additional Sources of Information: Seen 1015am HPI Narrative: 64 yo female, hx of schizoaffective disorder, to ER with EMS after eval by [facility]. Pt reports an increase in hallucintations of two men coming into her home and having sex with her for the past two months. They are invisable she reports, talk with her, touch her, tell her to do things. Reports seeing men during the day as well. She believes they have caused her not to trust others and are manipulative. She feels no one will believe her and as a result, I give up, no one believes in me. Reports poor sleep, intact appetite. Past Psychiatric History: hosps: reports more than 10 SA: denies SIB: denies outpt: reports none presently but had prescriber as recently as 4 weeks ago. unclear what she perceives has changed. Medical Evaluation Reviewed: Yes [facility] Medical History Stable angina History of melanoma HTN (hypertension) Mild persistent asthma FERMÍN (obstructive sleep apnea) Diabetic peripheral neuropathy NPH (normal pressure hydrocephalus) Seizure disorder CKD (chronic kidney disease) Hypothyroidism Type 2 diabetes mellitus Schizoaffective disorder Family History: mother - depression Social History: lives alone in [facility] [address] in [place], [place], where she rents. never , no children. some college. was last working about 15 years ago, working in [email or web address] at a company in [place], [place]. income is from [employer]. Substance History: denied Trauma History: reports she saw a vision of her sister's being murdered in 1972. she reports her sister was actually murdered. Diagnostics Vital Signs (24Hr): Vital Signs - 24 hr 12/06/24 15:44 12/06/24 16:45 12/06/24 20:00 Temperature 97.2 F 98.5 F 97.5 F Pulse Rate 86 60 64 Respiratory Rate 18 16 16 Blood Pressure 121/69 108/57 L 129/71 Pulse Oximetry 98 94 95 Oxygen Delivery Method Room Air Room Air Room Air 12/07/24 08:07 Temperature 97.5 F Pulse Rate 85 Respiratory Rate 18 Blood Pressure 115/71 Pulse Oximetry 97 Oxygen Delivery Method Room Air BMI result Body Mass Index 41.4 Labs 12/05/24 13:54 12/05/24 13:54 Labs: Laboratory Results - last 48 hr 12/05/24 12/05/24 12/06/24 13:51 13:54 07:35 WBC 7.7 RBC 4.31 Hgb 13.4 Hct 39.5 MCV 91.6 MCH 31.1 MCHC 33.9 RDW 12.6 Plt Count 232 D MPV 9.3 L Immature Gran % (Auto) 0.3 Neut % (Auto) 51.5 Lymph % (Auto) 33.6 [place] % (Auto) 6.9 Eos % (Auto) 6.9 H Baso % (Auto) 0.8 Lymph # (Auto) 2.6 [place] # (Auto) 0.5 Eos # (Auto) 0.5 H Baso # (Auto) 0.1 Abs Immat Gran (auto) 0.02 Absolute Neuts (auto) 4.0 Absolute Nucleated RBC 0.000 Nucleated RBC % (auto) 0.0 Sodium 142 Potassium 4.1 Chloride 108 Carbon Dioxide 27 Anion Gap 11 L BUN 21 H Creatinine 1.06 Estim Creat Clear Calc 55.3 Estimated GFR 52 POC Glucose 137 H Random Glucose 129 H Estimat Average Glucose Hemoglobin A1c % Calcium 9.2 Total Bilirubin 0.2 AST 19 ALT 22 Alkaline Phosphatase 60 Ammonia Total Protein 6.9 Albumin 4.4 Triglycerides Cholesterol LDL Cholesterol, Calc HDL Cholesterol Vitamin B12 Folate TSH Free T4 Hold Red Top See Note Hold Yellow Top See Note Urine Color Yellow Urine Appearance Clear Urine pH 6.5 Ur Specific Steele 1.010 Urine Protein Negative Urine Glucose (UA) Negative Urine Ketones Negative Urine Blood Negative Urine Nitrite Negative Ur Leukocyte Esterase Small (1+) H Urine RBC 0-2 Urine WBC 0-5 Ur Squamous Epith Cells 0-2 Urine Bacteria None Seen Hyaline Casts 0-2 Urine Opiates Screen Not Detected Ur Buprenorphine Scrn Not Detected Ur Oxycodone Screen Not Detected Urine Methadone Screen Not Detected Urine Fentanyl Screen Not Detected Ur Barbiturates Screen Not Detected Valproic Acid Ur Phencyclidine Scrn Not Detected Ur Amphetamines Screen Not Detected U Benzodiazepines Scrn Not Detected Urine Cocaine Screen Not Detected U Marijuana (THC) Screen Not Detected 12/06/24 12/07/24 17:04 07:04 WBC RBC Hgb Hct MCV MCH MCHC RDW Plt Count MPV Immature Gran % (Auto) Neut % (Auto) Lymph % (Auto) [place] % (Auto) Eos % (Auto) Baso % (Auto) Lymph # (Auto) [place] # (Auto) Eos # (Auto) Baso # (Auto) Abs Immat Gran (auto) Absolute Neuts (auto) Absolute Nucleated RBC Nucleated RBC % (auto) Sodium Potassium Chloride Carbon Dioxide Anion Gap BUN Creatinine Estim Creat Clear Calc Estimated GFR POC Glucose Random Glucose Estimat Average Glucose 140 Hemoglobin A1c % 6.5 H Calcium Total Bilirubin AST ALT Alkaline Phosphatase Ammonia 30 Total Protein Albumin Triglycerides 112 Cholesterol 187 LDL Cholesterol, Calc 121 H HDL Cholesterol 44 Vitamin B12 509 Folate 8.3 TSH 2.47 Free T4 1.08 Hold Red Top Hold Yellow Top Urine Color Urine Appearance Urine pH Ur Specific Steele Urine Protein Urine Glucose (UA) Urine Ketones Urine Blood Urine Nitrite Ur Leukocyte Esterase Urine RBC Urine WBC Ur Squamous Epith Cells Urine Bacteria Hyaline Casts Urine Opiates Screen Ur Buprenorphine Scrn Ur Oxycodone Screen Urine Methadone Screen Urine Fentanyl Screen Ur Barbiturates Screen Valproic Acid < 12.5 L Ur Phencyclidine Scrn Ur Amphetamines Screen U Benzodiazepines Scrn Urine Cocaine Screen U Marijuana (THC) Screen Meds/Allergies Meds Home Medications ?Medication ?Instructions ?Recorded ?Confirmed ?Type levetiracetam 500 mg tablet 1,500 mg PO BID 12/05/24 12/06/24 History Aristada 662 mg IM Q4W 12/06/24 12/06/24 History divalproex 500 mg tablet,extended 500 mg PO BEDTIME 12/06/24 12/06/24 History release 24 hr gabapentin 100 mg capsule 100 mg PO TID 12/06/24 12/06/24 History lorazepam 0.5 mg tablet 0.5 mg PO BEDTIME 12/06/24 12/06/24 History magnesium hydroxide 400 mg/5 mL 10 ml PO BID PRN Constipation 12/06/24 12/06/24 History oral suspension (Milk of Magnesia) miconazole nitrate 2 % topical 1 appl topical BID 12/06/24 12/06/24 History cream montelukast 10 mg tablet 10 mg PO BEDTIME 12/06/24 12/06/24 History olanzapine 5 mg tablet 2.5 mg PO BID 12/06/24 12/06/24 History olanzapine 5 mg tablet 5 mg PO BEDTIME depressive disorder 12/06/24 12/06/24 History sennosides 8.6 mg tablet (Senna 17.2 mg PO BEDTIME Constipation 12/06/24 12/06/24 History Lax) Allergies Allergies Allergy/AdvReac Type Severity Reaction Status Date / Time ibuprofen Allergy Wheezing Verified 12/05/24 13:10 oxcarbazepine (From Allergy Unknown Verified 03/22/24 20:38 Trileptal) peanut Allergy Unknown Verified 03/22/24 20:38 quetiapine (From Seroquel) Allergy Vomiting Verified 03/22/24 20:38 Mental Status Exam Mental Status Exam Patient Appearance: Fatigued Patient Orientation: Person and Situation Level of Consciousness: Alert Patient Behavior: Guarded and Suspicious Mood Description: Depressed Affect Description: Flat Patient Cognition Impaired: Yes Ability to Follow Directions: Fair Speech Pattern: Spontaneous Speech Memory Description: Episodic Impaired Hallucinations: Auditory Delusions: Being Controlled, Paranoid Ideation and Present Perceptual Disturbances: Depersonalization and Derealization Thought Process: Distracted and Rumination Thought Content: positive for Circumstantial and positive for Perseveration Depressive Symptoms: Increased Anxiety and Difficulty Sleeping Judgement: Poor Assessment & Plan Assessment & Plan (1) Schizoaffective disorder: Status: Acute Code(s): F25.9 - Schizoaffective disorder, unspecified Plan Admit, 5 minute checks Re-establish regime (hx of non compliance) and reassess Diagnostics as needed Collateral contact Encourage milieu participation Discharge planning Patient educated on: therapeutic strategies and other Reason for continued inpatient stay Substantial Risk for: rapid decompensation Statement Statement: I have reviewed the history and physical and performed a pertinent examination on my patient. No changes have occurred unless specified. If the History and Physical was not performed prior to admission, the Hospitalist's service will be consulted for completing the admission physical. Time Spent With Patient Time: Total time managing care of this patient today ____ minutes.
[2024-12-07 20:00] VITALS: BP 140/80; PULSE 74; RESP 18; TEMP 36.5; O2SAT 97
[2024-12-08 08:00] VITALS: BP 118/71; PULSE 56; RESP 18; TEMP 36.6; O2SAT 98
[2024-12-08] MEDS: Miconazole 2 % Extra Thick Cr 56.7 Gm Tube 1 APPL TOPICAL (08:56)
[2024-12-08] MEDS: Fluticasone/Vilanterol 100/25 BLST.W.DEV 1 PUFF INHALE (08:56)
[2024-12-08] MEDS: Mirabegron 50 MG TAB.ER.24H PO (08:59)
[2024-12-08 09:00] VITALS: BP 118/71
[2024-12-08] MEDS: Psyllium seed 3.7 GM PACKET PO ×2 (09:22→20:50)
--- NOTE | 2024-12-08 13:23 | P.PNPSI_ITS ---
Subjective Subjective Date of Service: 12/08/24 Reason For Visit: Psychosis Interim History: Pt seen and discussed with team. Pt is up about, smiling talkative today, improved from yesterday. She denies current symptoms Review of Systems Review of Systems denies Mental Status Exam Mental Status Exam Patient Appearance: Appropriate Patient Orientation: Person and Situation Level of Consciousness: Alert Patient Behavior: Talkative Mood Description: Cheerful Affect Description: Flat Patient Cognition Impaired: Yes Ability to Follow Directions: Fair Speech Pattern: Spontaneous Speech Memory Description: Episodic Impaired Hallucinations: None Perceptual Disturbances: Depersonalization and Derealization Thought Process: Distracted Thought Content: positive for Circumstantial Depressive Symptoms: Increased Anxiety and Difficulty Sleeping Judgement: Fair Diagnostics Vital Signs (24Hr): Vital Signs - 24 hr 12/07/24 20:00 12/08/24 08:00 12/08/24 09:00 Temperature 97.7 F 97.9 F Pulse Rate 74 56 Respiratory Rate 18 18 Blood Pressure 140/80 H 118/71 118/71 Pulse Oximetry 97 98 Oxygen Delivery Method Room Air Room Air BMI result Body Mass Index 41.4 Labs 12/05/24 13:54 12/05/24 13:54 Labs: Laboratory Results - last 48 hr 12/06/24 12/07/24 17:04 07:04 Estimat Average Glucose 140 Hemoglobin A1c % 6.5 H Ammonia 30 Triglycerides 112 Cholesterol 187 LDL Cholesterol, Calc 121 H HDL Cholesterol 44 Vitamin B12 509 Folate 8.3 TSH 2.47 Free T4 1.08 Valproic Acid < 12.5 L Medications Medications Current Medications Acetaminophen (Acetaminophen 325 Mg Tablet) 650 mg PO Q6H PRN PRN Reason: Headache/Pain, Scale 1-10 Last Admin: 12/08/24 09:23 Dose: 650 mg Al Hydroxide/Mg Hydroxide (Magnesium Hydrox/Alum Hydrox 30 Ml Oral.Susp) 30 ml PO Q6H PRN PRN Reason: Heartburn/Nausea Albuterol Sulfate (Albuterol Sulfate 90 Mcg 8 Gm Inhaler) 1 puff INHALE Q4H PRN PRN Reason: Wheezing, Benztropine Mesylate (Benztropine Mesylate 1 Mg Tablet) 1 mg PO BID [facility] Last Admin: 12/08/24 08:59 Dose: 1 mg Divalproex Sodium (Divalproex Sodium Er 500 Mg Tab.Er.24h) 500 mg PO BEDTIME [facility] Last Admin: 12/07/24 20:23 Dose: 500 mg Fluticasone/Vilanterol (Fluticasone/Vilanterol 100/25 Blst.W.Dev) 1 puff INHALE RDAILY [facility] Last Admin: 12/08/24 08:56 Dose: 1 puff Gabapentin (Gabapentin 100 Mg Capsule) 100 mg PO TID [facility] Last Admin: 12/08/24 08:57 Dose: 100 mg Levetiracetam (Levetiracetam 500 Mg Tablet) 1,500 mg PO BID [facility] Last Admin: 12/08/24 08:58 Dose: 1,500 mg Levothyroxine Sodium (Levothyroxine Sodium 100 Mcg Tablet) 100 mcg PO DAILY@0600 [facility] Last Admin: 12/08/24 05:29 Dose: 100 mcg Lisinopril (Lisinopril 5 Mg Tablet) 5 mg PO DAILY [facility]; Protocol Last Admin: 12/08/24 09:00 Dose: 5 mg Lorazepam (Lorazepam 0.5 Mg Tablet) 0.5 mg PO BEDTIME [facility] Last Admin: 12/07/24 20:23 Dose: 0.5 mg Magnesium Hydroxide (Milk Of Magnesia 30 Ml Oral.Susp) 10 ml PO BID PRN PRN Reason: Constipation Miconazole Nitrate (Miconazole 2 % Extra Thick Cr 56.7 Gm Tube) 1 appl TOPICAL BID [facility]; Protocol Last Admin: 12/08/24 08:56 Dose: 1 appl Mirabegron (Mirabegron 50 Mg Tab.Er.24h) 50 mg PO DAILY [facility] Last Admin: 12/08/24 08:59 Dose: 50 mg Montelukast Sodium (Montelukast Sodium 10 Mg Tablet) 10 mg PO BEDTIME [facility] Last Admin: 12/07/24 20:24 Dose: 10 mg Olanzapine (Olanzapine 2.5 Mg Tablet) 2.5 mg PO BID [facility] Last Admin: 12/08/24 08:59 Dose: 2.5 mg Olanzapine (Olanzapine 5 Mg Tablet) 5 mg PO BEDTIME [facility] Last Admin: 12/07/24 20:23 Dose: 5 mg Psyllium Hydrophilic Mucilloid (Psyllium Seed 3.7 Gm Packet) 3.7 gm PO BID [facility] Last Admin: 12/08/24 09:22 Dose: 3.7 gm Pyridoxine HCl (Pyridoxine Hcl (Vitamin B6) 50 Mg Tablet) 25 mg PO DAILY [facility] Last Admin: 12/08/24 08:59 Dose: 25 mg Senna (Sennosides 8.6 Mg Tablet) 17.2 mg PO BEDTIME [facility] Last Admin: 12/07/24 20:23 Dose: 17.2 mg Topiramate (Topiramate 25 Mg Tablet) 25 mg PO BID [facility] Last Admin: 12/08/24 08:58 Dose: 25 mg Trazodone HCl (Trazodone Hcl 50 Mg Tablet) 50 mg PO BEDTIME MRX1 PRN PRN Reason: Insomnia Allergies Allergies Allergy/AdvReac Type Severity Reaction Status Date / Time ibuprofen Allergy Wheezing Verified 12/05/24 13:10 oxcarbazepine (From Allergy Unknown Verified 03/22/24 20:38 Trileptal) peanut Allergy Unknown Verified 03/22/24 20:38 quetiapine (From Seroquel) Allergy Vomiting Verified 03/22/24 20:38 Assessment & Plan Assessment & Plan (1) Schizoaffective disorder: Status: Acute Code(s): F25.9 - Schizoaffective disorder, unspecified Plan Admit, 5 minute checks Re-establish regime (hx of non compliance) and reassess Diagnostics as needed Collateral contact Encourage milieu participation Discharge planning 12/08: Continue tx Reason for continued inpatient stay Substantial Risk for: rapid decompensation and med/psych decompensation Time Spent With Patient Time: Total time managing care of this patient today ____ minutes.
[2024-12-08 20:00] VITALS: BP 111/51; PULSE 60; RESP 16; TEMP 36.6; O2SAT 96
[2024-12-09 09:31] VITALS: BP 129/60; PULSE 72; RESP 16; TEMP 36.8; O2SAT 93
[2024-12-09] MEDS: Psyllium seed 3.7 GM PACKET PO ×2 (09:33→20:31)
[2024-12-09] MEDS: Mirabegron 50 MG TAB.ER.24H PO (09:33)
[2024-12-09] MEDS: Fluticasone/Vilanterol 100/25 BLST.W.DEV 1 PUFF INHALE (09:33)
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
[2024-12-09 20:00] VITALS: BP 154/70; PULSE 80; RESP 18; TEMP 37; O2SAT 99
[2024-12-10 08:40] VITALS: BP 141/66; PULSE 73; RESP 15; TEMP 36.8; O2SAT 99
[2024-12-10] MEDS: Fluticasone/Vilanterol 100/25 BLST.W.DEV 1 PUFF INHALE (08:42)
[2024-12-10] MEDS: Psyllium seed 3.7 GM PACKET PO (08:42)
[2024-12-10] MEDS: Mirabegron 50 MG TAB.ER.24H PO (08:43)
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
[2024-12-10 20:00] VITALS: BP 109/55; PULSE 66; RESP 16; TEMP 36.2; O2SAT 95
[2024-12-11 08:26] VITALS: BP 142/81; PULSE 72; RESP 16; TEMP 35.7; O2SAT 97
[2024-12-11] MEDS: Fluticasone/Vilanterol 100/25 BLST.W.DEV 1 PUFF INHALE (08:29)
[2024-12-11] MEDS: Psyllium seed 3.7 GM PACKET 7.4 GM PO ×2 (08:29→21:08)
[2024-12-11] MEDS: Mirabegron 50 MG TAB.ER.24H PO (08:31)
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
[2024-12-11] MEDS: Miconazole 2 % Extra Thick Cr 56.7 Gm Tube 1 APPL TOPICAL (14:11)
[2024-12-11 20:00] VITALS: BP 156/77; PULSE 70; RESP 18; TEMP 36.3; O2SAT 96
[2024-12-12 07:00] VITALS: BMI 43.0
[2024-12-12 09:12] VITALS: BP 135/76; PULSE 63; RESP 16; TEMP 36.3; O2SAT 99
[2024-12-12] MEDS: Psyllium seed 3.7 GM PACKET 7.4 GM PO ×2 (09:14→20:38)
[2024-12-12] MEDS: Fluticasone/Vilanterol 100/25 BLST.W.DEV 1 PUFF INHALE (09:15)
[2024-12-12] MEDS: Mirabegron 50 MG TAB.ER.24H PO (09:16)
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
[2024-12-12] MEDS: Miconazole 2 % Extra Thick Cr 56.7 Gm Tube 1 APPL TOPICAL (16:21)
[2024-12-12 20:00] VITALS: BP 121/72; PULSE 75; RESP 16; TEMP 36.9; O2SAT 94
[2024-12-13 08:00] VITALS: BP 145/68; PULSE 69; RESP 16; TEMP 36.4; O2SAT 100
[2024-12-13] MEDS: Fluticasone/Vilanterol 100/25 BLST.W.DEV 1 PUFF INHALE (08:34)
[2024-12-13 08:36] VITALS: BP 145/68
[2024-12-13] MEDS: Mirabegron 50 MG TAB.ER.24H PO (08:36)
[2024-12-13] MEDS: Psyllium seed 3.7 GM PACKET 7.4 GM PO ×2 (08:47→21:01)
[2024-12-13] MEDS: Miconazole 2 % Extra Thick Cr 56.7 Gm Tube 1 APPL TOPICAL (08:47)
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
[2024-12-13 20:00] VITALS: BP 133/70; PULSE 76; RESP 18; TEMP 36.3; O2SAT 98
[2024-12-14 08:00] VITALS: BP 111/58; PULSE 59; RESP 18; TEMP 36.6; O2SAT 96
[2024-12-14] MEDS: Fluticasone/Vilanterol 100/25 BLST.W.DEV 1 PUFF INHALE (09:10)
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
[2024-12-14 09:11] VITALS: BP 141/58
[2024-12-14] MEDS: Mirabegron 50 MG TAB.ER.24H PO (09:13)
[2024-12-14] MEDS: Psyllium seed 3.7 GM PACKET 7.4 GM PO ×2 (09:21→20:56)
[2024-12-14 20:00] VITALS: BP 128/85; PULSE 68; RESP 18; TEMP 36.2; O2SAT 94
[2024-12-15 08:00] VITALS: BP 145/84; PULSE 82; RESP 16; TEMP 36; O2SAT 97
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
[2024-12-15] MEDS: Mirabegron 50 MG TAB.ER.24H PO (08:59)
[2024-12-15] MEDS: Fluticasone/Vilanterol 100/25 BLST.W.DEV 1 PUFF INHALE (08:59)
[2024-12-15] MEDS: Psyllium seed 3.7 GM PACKET 7.4 GM PO ×2 (09:00→20:49)
[2024-12-15] MEDS: Throat Lozenge, Medicated LOZENGE 1 LOZENGE MUCOUS MEM (13:01)
[2024-12-15 20:00] VITALS: BP 101/61; PULSE 72; RESP 18; TEMP 36.1; O2SAT 93
[2024-12-16 08:00] VITALS: BP 134/78; PULSE 72; TEMP 36.8; O2SAT 97
[2024-12-16] MEDS: Throat Lozenge, Medicated LOZENGE 1 LOZENGE MUCOUS MEM (08:46)
[2024-12-16] MEDS: Fluticasone/Vilanterol 100/25 BLST.W.DEV 1 PUFF INHALE (08:46)
[2024-12-16] MEDS: Mirabegron 50 MG TAB.ER.24H PO (08:46)
[2024-12-16] MEDS: Psyllium seed 3.7 GM PACKET 7.4 GM PO ×2 (09:56→20:21)
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
[2024-12-16 20:00] VITALS: BP 110/62; PULSE 73; RESP 17; TEMP 36.7; O2SAT 94
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
[2024-12-17 09:34] VITALS: BP 128/83; PULSE 79; RESP 17; TEMP 36.3; O2SAT 99
[2024-12-17] MEDS: Fluticasone/Vilanterol 100/25 BLST.W.DEV 1 PUFF INHALE (09:36)
[2024-12-17 09:38] VITALS: BP 128/83
[2024-12-17] MEDS: Mirabegron 50 MG TAB.ER.24H PO (09:38)
[2024-12-17] MEDS: Psyllium seed 3.7 GM PACKET 7.4 GM PO ×2 (09:43→20:13)
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
[2024-12-17] MEDS: ARISTADA 1 EACH IM (12:50)
[2024-12-17 20:00] VITALS: BP 126/63; PULSE 71; RESP 18; TEMP 36.3; O2SAT 96
[2024-12-18 08:00] VITALS: BP 117/57; PULSE 83; RESP 16; TEMP 36.8; O2SAT 96
[2024-12-18] MEDS: Fluticasone/Vilanterol 100/25 BLST.W.DEV 1 PUFF INHALE (08:53)
[2024-12-18] MEDS: Mirabegron 50 MG TAB.ER.24H PO (08:58)
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
[2024-12-18] MEDS: Psyllium seed 3.7 GM PACKET 7.4 GM PO ×2 (09:55→20:20)
[2024-12-18 12:18] LABS: Creatinine Clr Calc Pharmacy 59.6; Estimated Glomerular Filt Rate 51
[2024-12-18 20:00] VITALS: BP 109/63; PULSE 74; RESP 16; TEMP 36.3; O2SAT 97
[2024-12-19 08:00] VITALS: BP 153/72; PULSE 95; RESP 15; TEMP 2.6; TEMP 36.7; O2SAT 95
[2024-12-19 08:52] VITALS: BP 153/72
[2024-12-19] MEDS: Mirabegron 50 MG TAB.ER.24H PO (08:52)
[2024-12-19] MEDS: Psyllium seed 3.7 GM PACKET 7.4 GM PO (08:54)
[2024-12-19] MEDS: Miconazole 2 % Extra Thick Cr 56.7 Gm Tube 1 APPL TOPICAL (08:54)
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
== END 2024-12-19 11:10 | disposition home or self-care (01) | DRG 885 ==
LOC: HO.ED 12-06 09:11 → HO.PGERI 12-06 15:24
PROVIDERS: Emergency Medicine; Nurse Practitioner Family; Admitting Provider Psychiatry & Neurology Psychiatry; Emergency Provider Emergency Medicine; PCP Nurse Practitioner; Visit Provider Psychiatry & Neurology Psychiatry
DX: F25.9 Schizoaffective disorder, unspecified (principal); J45.909 Unspecified asthma, uncomplicated; I10 Essential (primary) hypertension; Z79.51 Long term (current) use of inhaled steroids; Z79.84 Long term (current) use of oral hypoglycemic drugs; Z79.890 Hormone replacement therapy; Z79.899 Other long term (current) drug therapy
CPT/HCPCS: 36415; 80053; 80061; 80164; 80307; 81001; 82140; 82565; 82607; 82746; 82947; 83036; 84439; 84443; 85025; 87086; 93005; 99285; S9485

== ENCOUNTER → 2024-12-05 12:36 | Outpatient (BNV) | payer MEDICARE, MEDICAID, SELFPAY | PROVIDERS: Emergency Provider Emergency Medicine; PCP Nurse Practitioner; Visit Provider Internal Medicine Cardiovascular Disease | DX: R00.1 Bradycardia, unspecified (principal) | CPT/HCPCS: 93010 ==

== ENCOUNTER → 2024-12-06 15:14 | Outpatient (BNV) | payer OTHER, MEDICAID, SELFPAY | PROVIDERS: Admitting Provider Psychiatry & Neurology Psychiatry; Emergency Provider Emergency Medicine; PCP Nurse Practitioner; Visit Provider Nurse Practitioner Family | DX: E11.9 Type 2 diabetes mellitus without complications (principal) | CPT/HCPCS: 99222 ==

== ENCOUNTER → 2024-12-06 15:14 | Outpatient (BNV) | payer MEDICARE, MEDICAID, SELFPAY | PROVIDERS: Admitting Provider Psychiatry & Neurology Psychiatry; Emergency Provider Emergency Medicine; PCP Nurse Practitioner; Visit Provider Clinical Nurse Specialist Psychiatric/Mental Health, Adult | DX: F25.9 Schizoaffective disorder, unspecified (principal) | CPT/HCPCS: 90792; 99231; 99232 ==

== ENCOUNTER 2025-02-11 15:15 | Outpatient (BNV) | payer OTHER, MEDICAID, SELFPAY | END 2025-02-21 11:05 | PROVIDERS: Admitting Provider Psychiatry & Neurology Psychiatry; Visit Provider Radiology Diagnostic Radiology | DX: K59.00 Constipation, unspecified (principal) | CPT/HCPCS: 74018 ==

== ENCOUNTER 2025-02-11 15:15 | Inpatient (IN) | payer OTHER, MEDICAID, SELFPAY ==
--- OUTSIDE RECORDS SUMMARY | 2025-02-06 08:30 | XMS_ITS | Encounter Summary ---
Author Organization [facility] Address [address] [place] [address] Care Team Providers Care Clean Out Driller Helper Name Role Phone Regulo Ivy NP Primary Care Provider [phone] Encounter Details Date Type Department Care Team (Late st Contact Info) Description 02/06/2025 8:30 AM EDT P[facility] Home Care / PACE Home Visit [facility] [address] [place] [address] Carmen Hartmann Social History Tobacco Use Types Packs/Day Years Used Date Smoking Tobacco: Never Smokeless Tobacco: Never Alcohol Use Standard Drinks/Week Comments Never 0 (1 standard drink = 0.6 oz pur e alcohol) Housing Instability Answer Date Recorde d Are you worried that in the next 2 months you may not have stable housing? Yes 02/10/2025 Food Access & Nutrition Answer Date Rec orded Do you have access to a vari ety of food including fruits and vegetables? Yes 02/10/2025 Access to Healthcare Answer Date Record ed Within the last 3 months, sadie steele many times did you visit the emergency department for your medical care? 3 02/10/2025 Health Literacy Answer Date Recorded How often do you need to hav e someone help you when you read instructions, pamphlets, or other written material from your doctor or pharmacy? Always 02/10/2025 Caregiver: How often do you need to have someone help you when you read instructions, pamphlets, or other written material from your doctor or pharmacy? Not on file 02/10/2025 Financial Risk Answer Date Recorded How hard is it for you to pa y for the very basics like food, housing, medical care, and air conditioning / heating? Not very hard 02/10/2025 Transportation Answer Date Recorded Has the lack of transportati on kept you from meetings, work, or from getting things needed for daily living? No Has the lack of transportati on kept you from medical appointments or from getting medications? No 02/10/2025 Social Isolation Answer Date Recorded How often do you feel lonely or isolated from th ose around you? Always 02/10/2025 Food Risk Answer Date Recorded Within the past 12 months we worried whether our food would run out before we got money to buy more. Never true 02/10/2025 Within the past 12 months th e food we bought just didn't last and we didn't have money to get more. Never true 02/10/2025 Dependent Care Answer Date Recorded Do you need help finding or paying for care for your loved ones. For example, early childhood assistant or elderly care for an older adult? No 02/10/2025 Education Answer Date Recorded Do you think completing more education or training, like finishing a GED, going to college, or learning a trade, would be helpful for you? Yes 02/10/2025 Employment and Income Answer Date Recor ded During the last four weeks, have you been actively looking for work? No 02/10/2025 Living Situation Answer Date Recorded What is your living situation? Unrecognized valu e 02/10/2025 Interpersonal Safety Answer Date Record ed Physical Abuse Unrecognized value 02/04/2025 Verbal Abuse Unrecognized value 02/04/2025 Comments No Sex and Gender Information Value Date Recorded Sex Assigned at Female 05/22/2024 10:13 AM EST Legal Sex Female 11:45 AM EST Gender Identity Female 05/22/2024 10:13 AM EST Sexual Orientation Choose not to disclose 2024 10:13 AM EST documented as of this encounter Functional Status * Are you deaf or do you have serious difficulty hearing? Answer Date of Assessment Author No 02/03/2025 3:31 PM Malachi Fatima RN * Are you blind or do you have serious difficulty seeing, even when wearing glasses? Answer Date of Assessment Author Yes 02/03/2025 3:31 PM Malachi Fatima RN * Do you have serious difficulty walking or climbing stairs? Answer Date of Assessment Author Yes 02/03/2025 3:31 PM Malachi Fatima RN * Do you have serious difficulty dressing or bathing? Answer Date of Assessment Author Yes 02/03/2025 3:31 PM Malachi Fatima RN * Because of a physical, mental, or emotional condition, do you have serious difficulty doing errandsalone such as visiting the doctor? Answer Date of Assessment Author Yes 02/03/2025 3:31 PM Malachi Fatima RN * Calculated C-SSRS Risk Score (Lifetime/Recent) Answer Date of Assessment Author No Risk Indicated 02/10/2025 8:39 AM Naomy Pa RN * [place] Suicide Severity Rating Scale (Screener/Recent Self-Report) Question Answer Date of Assessment Author 1. Wish to be (Past 1 Month) No 025 8:39 AM Naomy Pa RN 2. Non-Specific Active Suici sage Thoughts (Past 1 Month) No 02/10/2025 8:39 AM Naomy Pa RN 6. Suicidal Behavior (Lifetime) No 8:39 AM Naomy Pa RN documented as of this encounter Mental Status * Because of a physical, mental, or emotional condition, do you have serious difficulty concentrating, remembering, or making decisions? (5 years old or older) Answer Entry Date Author Yes 02/03/2025 3:31 PM Malachi Fatima RN documented in this encounter Plan of Treatment Upcoming Encounters Date Type Department Care Team (Latest Contact Info) Description 02/12/2025 8:30 AM EDT PACE Home Care / PACE Home Visit [facility] [address] [place] [address] Carmen Hartmann 02/12/2025 4:30 PM EDT PACE Home Care / PACE Home Visit [facility] [address] [place] [address] Ashley Eastman 02/13/2025 8:30 AM EDT PACE Home Care / PACE Home Visit [facility] [address] [place] [address] Carmen Hartmann 02/13/2025 9:00 AM EDT [facility] Attendance/[facility] [place] [facility] [address] [place] [address] 02/13/2025 4:30 PM EDT PACE Home Care / [facility] Home Visit [facility] [place] [facility] [address] [place] [phone] Ashley Eastman 02/14/2025 8:00 AM EDT PACE Home Care / [facility]ACE Home Visit [facility] [address] [place] [phone] Carmen aHrtmann 02/14/2025 9:30 AM EDT PACE Home Care / [facility] Home Visit [facility] [address] [place] [phone] Ralph Loyola 02/14/2025 4:30 PM EDT P[facility] Home Care / [facility] [place] [facility] [address] [place] [phone] Ashley Eastman 02/15/2025 8:30 AM EDT PACE Home Care / [facility] Visit [facility] [place] [facility] [address] [place] [phone] Marysol Diaz 02/15/2025 12:00 PM EDT PACE Home Care / [facility] Visit [facility] [place] [facility] [address] [place] [phone] Natali Sanford 02/15/2025 5:30 PM EDT P[facility] Home Care / [facility] Visit [facility] [place] [facility] [address] [place] [address] Marysol Diaz 02/16/2025 8:30 AM EST [facility] Home Care / [facility] [place] [facility] [address] [place] [phone] [facility] Marysol 02/16/2025 12:00 PM EST P[facility] Home Care / [facility] [place] [facility] [address] [place] [phone] Natali Sanford 02/16/2025 4:30 PM EST [facility] Home Care / [facility] [place] [facility] [address] [place] [phone] [facility] Marysol 02/16/2025 5:30 PM EST P[facility] Home Care / [facility] [place] [facility] [address] [place] [phone] [facility] Marysol 02/17/2025 8:30 AM EST P[facility] Home Care / [facility] [place] [facility] [address] [place] [phone] Carmen Hartmann 02/17/2025 11:00 AM EST [facility] [place] [facility] [address] [place] [phone] Michelle Castillo MD [address] [place] [phone] 02/17/2025 4:30 PM EST P[facility] Home Care / [facility] [place] [facility] [address] [place] [phone] Ashley Eastman 02/18/2025 8:30 AM EST P[facility] Home Care / [facility] Visit [facility] [place] [facility] [address] [place] [phone] Carmen Hartmann 02/18/2025 11:00 AM EST [facility] Visit [facility] [place] [facility] [address] [place] [address] Michelle Castillo MD [address] [address] Brigette East LPN 02/18/2025 4:30 PM EST PACE Home Care / [facility] [place] [facility] [address] [place] [phone] Ashley Eastman 02/19/2025 8:30 AM EST P[facility] Home Care / [facility] Visit [facility] [place] [facility] [address] [place] [phone] Carmen Hartmann 02/19/2025 4:30 PM EST PACE Home Care / [facility] Visit [facility] [place] [facility] [address] [place] [phone] Ashley Eastman 02/20/2025 8:30 AM EST PACE Home Care / [facility] Visit [facility] [place] [facility] [address] [place] [phone] Carmen Hartmann 02/20/2025 9:00 AM EST [facility] Att[facility] [facility] [place] [facility] [address] [place] [address] 02/20/2025 4:30 PM EST PACE Home Care / [facility] [place] [facility] [address] [place] [phone] Ashley Eastman 02/21/2025 8:00 AM EST P[facility] Home Care / [facility] [place] [facility] [address] [place] [phone] Carmen Hartmann 02/21/2025 9:30 AM EST PACE Home Care / [facility] [place] [facility] [address] [place] [address] Ralph Loyola 02/21/2025 4:30 PM EST P[facility] Home Care / [facility] [place] [facility] [address] [place] [phone] Ashley Eastman 02/22/2025 12:00 PM EST P[facility] Home Care / [facility] Visit [facility] [place] [facility] [address] [place] [phone] Dena Chavez 02/23/2025 12:00 PM EST P[facility] Home Care / [facility] Visit [facility] [place] [facility] [address] [place] [phone] Dena Chavez 02/24/2025 8:30 AM EST PACE Home Care / [facility] Visit [facility] [place] [facility] [address] [place] [phone] Carmen Hartmann 02/24/2025 4:30 PM EST PACE Home Care / [facility] Visit [facility] [place] [facility] [address] [place] [phone] Ashley Eastman 02/25/2025 8:30 AM EST P[facility] Home Care / [facility] Visit [facility] [place] [facility] [address] [place] [phone] Carmen Hartmann 02/25/2025 4:30 PM EST PACE Home Care / [facility] Visit [facility] [place] [facility] [address] [place] [phone] Ashley Eastman 02/26/2025 8:30 AM EST PACE Home Care / [facility] Visit [facility] [place] [facility] [address] [place] [phone] Carmen Hartmann 02/26/2025 4:30 PM EST PACE Home Care / [facility] [address] [place] [address] Ashley Eastman 02/27/2025 8:30 AM EST PACE Home Care / [facility] [place] [facility] [address] [place] [address] Carmen Hartmann 02/27/2025 9:00 AM EST [facility] Attendance[facility] [place] [facility] [address] [place] [address] 02/27/2025 4:30 PM EST PACE Home Care / [facility] [address] [place] [phone] Ashley Eastman 02/28/2025 8:00 AM EST PACE Home Care / [facility] [place] [facility] [address] [place] [phone] Carmen Hartmann 02/28/2025 9:30 AM EST P[facility] Home Care / [facility] Visit [facility] [place] [facility] [address] [place] [phone] Ralph Loyola 02/28/2025 4:30 PM EST PACE Home Care / [facility] Visit [facility] [place] [facility] [address] [place] [phone] Ashley Eastman 03/01/2025 8:30 AM EST PACE Home Care / [facility] Visit [facility] [place] [facility] [address] [place] [phone] Marysol Diaz 03/01/2025 12:00 PM EST PACE Home Care / [facility] Home Visit [facility] [place] [facility] [address] [place] [phone] Natali Sanford 03/01/2025 5:30 PM EST PACE Home Care / [facility] Visit [facility] [place] [facility] [address] [place] [phone] Marysol Diaz 03/02/2025 8:30 AM EST PACE Home Care / [facility] Visit [facility] [place] [facility] [address] [place] [phone] Marysol Diaz 03/02/2025 12:00 PM EST PACE Home Care / [facility] Visit [facility] [place] [facility] [address] [place] [phone] Natali Sanford 03/02/2025 4:30 PM EST PACE Home Care / [facility] Visit [facility] [place] [facility] [address] [place] [phone] Marysol Diaz 03/02/2025 5:30 PM EST P[facility] Home Care / [facility] [place] [facility] [address] [place] [phone] Marysol Diaz 03/03/2025 8:30 AM EST P[facility] Home Care / [facility] Visit [facility] [place] [facility] [address] [place] [phone] Carmen Hartmann 03/03/2025 4:30 PM EST PACE Home Care / [facility] Visit [facility] [place] [facility] [address] [place] [phone] Ashley Eastman 03/04/2025 8:30 AM EST PACE Home Care / [facility] Visit [facility] [place] [facility] [address] [place] [phone] Carmen Hartmann 03/04/2025 4:30 PM EST PACE Home Care / [facility] Visit [facility] [place] [facility] [address] [place] [phone] Ashley Eastman 03/05/2025 8:30 AM EST PACE Home Care / P[facility] Home Visit [facility] [address] [place] [address] Carmen Hartmann 03/05/2025 4:30 PM EST PACE Home Care / P[facility] Home Visit [facility] [address] [place] [address] Ashley Eastman 03/06/2025 8:30 AM EST PACE Home Care / PACE Home Visit [facility] [address] [place] [phone] Carmen Hartmann 03/06/2025 9:00 AM EST [facility] Attendance[facility] [place] [facility] [address] [place] [address] 03/06/2025 4:30 PM EST PACE Home Care / PACE Home Visit [facility] [address] [place] [phone] Ashley Eastman 03/07/2025 Lab [facility] MA Occupational Therapy [address] [place] [phone] Clemencia Napier, OT Schizophrenia in partial remission with history of multiple episodes (CMS/HCC V24, CMS/HCC V28) 03/07/2025 8:00 AM EST PACE Home Care / PACE Home Visit [facility] [address] [place] [address] Carmen Hartmann 03/07/2025 9:00 AM EST Clinical Support [facility] [place] [facility] [address] [place] [address] Bethany Mccabe, HEIDI 03/07/2025 9:30 AM EST PACE Home Care / P[facility] Home Visit [facility] [address] [place] [phone] Ralph Loyola 03/07/2025 4:30 PM EST PACE Home Care / [facility] Visit [facility] [place] [facility] [address] [place] [address] Ashley Eastman 03/08/2025 12:00 PM EST P[facility] Home Care / [facility] Visit [facility] [place] [facility] [address] [place] [phone] Dena Chavez 03/09/2025 12:00 PM EST P[facility] Home Care / [facility] Visit [facility] [place] [facility] [address] [place] [phone] Dena Chavez 03/10/2025 8:30 AM EST P[facility] Home Care / [facility] Visit [facility] [place] [facility] [address] [place] [phone] Carmen Hartmann 03/10/2025 4:30 PM EST PACE Home Care / [facility] Visit [facility] [place] [facility] [address] [place] [phone] Ashley Eastman 03/11/2025 8:30 AM EST P[facility] Home Care / [facility] [place] [facility] [address] [place] [phone] Carmen Hartmann 03/11/2025 4:30 PM EST P[facility] Home Care / [facility] [place] [facility] [address] [place] [phone] Ashley Eastman 03/12/2025 8:30 AM EST P[facility] Home Care / [facility] [place] [facility] [address] [place] [phone] Carmen Hartmann 03/12/2025 4:30 PM EST PACE Home Care / [facility] [place] [facility] [address] [place] [phone] Ashley Eastman 03/13/2025 8:30 AM EST P[facility] Home Care / [facility] Visit [facility] [place] [facility] [address] [place] [address] Carmen Hartmann 03/13/2025 9:00 AM EST [facility] [place] [facility] [address] [place] [address] 03/13/2025 4:30 PM EST PACE Home Care / [facility] [place] [facility] [address] [place] [address] Ashley Eastman 03/14/2025 8:00 AM EST PACE Home Care / [facility] Visit [facility] [place] [facility] [address] [place] [phone] Carmen Hartmann 03/14/2025 9:30 AM EST P[facility] Home Care / [facility] Visit [facility] [place] [facility] [address] [place] [address] Ralph Loyola 03/14/2025 4:30 PM EST PACE Home Care / [facility] Visit [facility] [place] [facility] [address] [place] [phone] Ashley Eastman 03/15/2025 8:30 AM EST P[facility] Home Care / [facility] [place] [facility] [address] [place] [phone] Marysol Diaz 03/15/2025 12:00 PM EST P[facility] Home Care / [facility] Visit [facility] [place] [facility] [address] [place] [phone] Natali Sanford 03/15/2025 5:30 PM EST P[facility] Home Care / [facility] Visit [facility] [place] [facility] [address] [place] [phone] Marysol Diaz 03/16/2025 8:30 AM EST P[facility] Home Care / [facility] Visit [facility] [place] [facility] [address] [place] [phone] Marysol Diaz 03/16/2025 12:00 PM EST P[facility] Home Care / [facility] Visit [facility] [place] [facility] [address] [place] [phone] Natali Sanford 03/16/2025 4:30 PM EST P[facility] Home Care / [facility] Visit [facility] [place] [facility] [address] [place] [phone] Marysol Diaz 03/16/2025 5:30 PM EST P[facility] Home Care / [facility] Visit [facility] [place] [facility] [address] [place] [phone] Marysol Diaz 03/17/2025 8:30 AM EST P[facility] Home Care / [facility] Visit [facility] [place] [facility] [address] [place] [phone] Carmen Hartmann 03/17/2025 4:30 PM EST P[facility] Home Care / [facility] Visit [facility] [place] [facility] [address] [place] [phone] Ashley Eastman 03/18/2025 8:30 AM EST P[facility] Home Care / [facility] [place] [facility] [address] [place] [phone] Carmen Hartmann 03/18/2025 11:00 AM EST [facility] Visit [facility] [place] [facility] [address] [place] [phone] Michelle Castillo MD [address] [place] [phone] Brigette East LPN 03/18/2025 4:30 PM EST P[facility] Home Care / [facility] [address] [place] [phone] Ashley Eastman 03/19/2025 8:30 AM EST [facility] Home Care / [facility] [place] [facility] [address] [place] [phone] Carmen Hartmann 03/19/2025 4:30 PM EST P[facility] Home Care / [facility] [place] [facility] [address] [place] [address] Ashley Eastman 03/20/2025 8:30 AM EST P[facility] Home Care / [facility] [place] [facility] [address] [place] [address] Carmen Hartmann 03/20/2025 9:00 AM EST [facility] [facility] [place] [facility] [address] [place] [address] 03/20/2025 4:30 PM EST P[facility] Home Care / [facility] [place] [facility] [address] [place] [address] Ashley Eastman 03/21/2025 8:00 AM EST P[facility] Home Care / [facility] [place] [facility] [address] [place] [phone] Carmen Hartmnan 03/21/2025 9:30 AM EST [facility] Home Care / [facility] [place] [facility] [address] [place] [address] Ralph Loyola 03/21/2025 4:30 PM EST P[facility] Home Care / [facility] [place] [facility] [address] [place] [phone] Ashley Eastman 03/22/2025 12:00 PM EST [facility] Home [facility] / [facility] [place] [facility] [address] [place] [phone] Dena Chavez 03/23/2025 12:00 PM EST [facility] Home Care / [facility] [place] [facility] [address] [place] [phone] Dena Chavez 03/24/2025 8:30 AM EST P[facility] Home Care / [facility] [place] [facility] [address] [place] [phone] Carmen Hartmann 03/24/2025 9:45 AM EST Appointment [facility] Xray [address] [place] [address] Lakia Hou, [facility]-SUPERVISOR/PORT DIRECTOR 03/24/2025 4:30 PM EST [facility] Home [facility] / [facility] [place] [facility] [address] [place] [phone] Ashley Eastman 03/25/2025 8:30 AM EST P[facility] Home Care / [facility] [place] [facility] [address] [place] [phone] Carmen Hartmann 03/25/2025 4:30 PM EST P[facility] Home Care / [facility] Visit [facility] [place] [facility] [address] [place] [phone] Ashley Eastman 03/26/2025 8:30 AM EST P[facility] Home Care / [facility] [place] [facility] [address] [place] [phone] Carmen Hartmann 03/26/2025 4:30 PM EST P[facility] Home Care / [facility] [place] [facility] [address] [place] [phone] Ashley Eastman 03/27/2025 8:30 AM EST [facility] Home [facility] / [facility] [place] [facility] [address] [place] [phone] Carmen Hartmann 03/27/2025 9:00 AM EST [facility] Att[facility] [place] [facility] [address] [place] [address] 03/27/2025 2:40 PM EST Clinical Support [facility] [place] [address] [place] [address] 03/27/2025 4:30 PM EST P[facility] Home Care / [facility] [address] [place] [address] Ashley Eastman 03/28/2025 8:00 AM EST [facility] Home Care / [facility] [address] [place] [address] Carmen Hartmann 03/28/2025 10:00 AM EST Clinical Support [facility] [address] [place] [address] Bethany Mccabe RN 03/28/2025 4:30 PM EST P[facility] Home Care / [facility] [address] [place] [address] Ashley Eastman 03/29/2025 8:30 AM EST [facility] Home Care / [facility] [address] [place] [phone] Marysol Diaz 03/29/2025 12:00 PM EST [facility] Home Care / [facility] [address] [place] [address] Natali Sanford 03/29/2025 5:30 PM EST P[facility] Home Care / [facility] [place] [facility] [address] [place] [address] Marysol Diaz 03/30/2025 8:30 AM EST [facility] Home Care / [facility] [place] [facility] [facility] [address] [place] [phone] Marysol Diaz 03/30/2025 12:00 PM EST [facility] / [facility] [place] [facility] [address] [place] [address] Natali Sanford 03/30/2025 4:30 PM EST [facility] Home [facility] / [place] [facility] [place] [facility] [address] [place] [address] Marysol Diaz 03/30/2025 5:30 PM EST [facility] Home [facility] / [place] [facility] [place] [facility] [address] [place] [phone] Marysol Diaz 03/31/2025 8:30 AM EST [facility] Home [facility] / [facility] [place] [facility] [place] [facility] [address] [place] [phone] Carmen Hartmann 03/31/2025 4:30 PM EST [facility] Home [facility] / [facility] [facility] [place] [facility] [place] [facility] [address] [place] [phone] Ashley Eastman 04/01/2025 8:30 AM EST [facility] / [facility] [place] [facility] [place] [facility] [address] [place] [phone] Carmen Hartmann 04/01/2025 1:15 PM EST [facility] [place] [facility] [place] [address] [place] [address] 04/01/2025 4:30 PM EST [facility] Home [facility] [place] [facility] [place] [facility] [address] [place] [phone] Ashley Eastman 04/02/2025 8:30 AM EST [facility] Home [facility] / [place] [facility] [place] [facility] [address] [place] [phone] Carmen Hartmann 04/02/2025 4:30 PM EST [facility] Home [facility] [place] [facility] [place] [facility] [place] [facility] [address] [place] [address] Ashley Eastman 04/03/2025 8:30 AM EST [facility] Home [facility] / [place] [place] [facility] [place] [facility] [address] [place] [address] Carmen Hartmann 04/03/2025 9:00 AM EST [facility] [facility] [place] [facility] [address] [place] [address] 04/03/2025 4:30 PM EST [facility] Home [facility] / [place] [facility] [place] [facility] [place] [facility] [address] [place] [address] Ashley Eastman 04/04/2025 8:00 AM EST [facility] Home [facility] / [place] [facility] [place] [facility] [address] [place] [phone] Carmen Hartmann 04/04/2025 9:30 AM EST [facility] / [place] [facility] [place] [facility] [address] [place] [address] aRlph Loyola 04/04/2025 4:30 PM EST [facility] Home [facility] [place] [facility] [place] [facility] [address] [place] [phone] Ashley Eastman 04/05/2025 12:00 PM EST [facility] [place] [facility] [place] [facility] [address] [place] [phone] Dena Chavez 04/06/2025 12:00 PM EST [facility] [place] [facility] [place] [facility] [address] [place] [phone] Dena Chavez 2025 8:30 AM EST [facility] Home [facility] / [facility] [place] [facility] [address] [place] [address] Carmen Hartmann 2025 4:30 PM EST [facility] Home [facility] / [facility] [place] [facility] [address] [place] [address] Ashley Eastman 04/08/2025 8:30 AM EST [facility] Home [facility] / [place] [facility] [place] [facility] [place] [facility] [address] [place] [address] Carmen Hartmann 04/08/2025 4:30 PM EST [facility] Home [facility] / [place] [facility] [place] [facility] [address] [place] [address] Ashley Eastman 04/09/2025 8:30 AM EST [facility] / [facility] [place] [facility] [address] [place] [phone] Carmen Hartmann 04/09/2025 4:30 PM EST [facility] Home [facility] / [facility] [place] [facility] [address] [place] [address] Ashlye Eastman 04/10/2025 8:30 AM EST [facility] Home [facility] / [facility] [place] [facility] [address] [place] [address] Carmen Hartmann 04/10/2025 9:00 AM EST [facility] [facility] [place] [facility] [address] [place] [address] 04/10/2025 4:30 PM EST [facility] Home [facility] / [place] [place] [facility] [place] [facility] [address] [place] [address] Ashley Eastman 04/11/2025 8:00 AM EST [facility] Home [facility] / [place] [facility] [place] [facility] [place] [facility] [address] [place] [address] Carmen Hartmann 04/11/2025 9:30 AM EST [facility] Home [facility] / [facility] [place] [facility] [address] [place] [phone] Ralph Loyola 04/11/2025 4:30 PM EST [facility] Home [facility] / [facility] [place] [facility] [address] [place] [phone] Ashley Eastman 04/12/2025 8:30 AM EST [facility] Home [facility] / [facility] [place] [facility] [address] [place] [phone] Marysol Diaz 04/12/2025 12:00 PM EST [facility] Home [facility] / [facility] [place] [facility] [address] [place] [phone] Natali Sanford 04/12/2025 5:30 PM EST [facility] / [facility] [place] [facility] [address] [place] [phone] Marysol Diaz 04/15/2025 11:00 AM EST [facility] [place] [facility] [address] [place] [phone] Michelle Castillo MD [address] [place] [phone] Brigette East LPN 04/17/2025 9:00 AM EST [facility] [place] [facility] [address] [place] [address] 04/18/2025 10:00 AM EST Clinical Support [facility] [place] [facility] [address] [place] [address] Bethany Mccabe RN 04/24/2025 9:00 AM EST [facility] [place] [facility] [address] [place] [phone] 04/24/2025 11:30 AM EST [facility] [address] [address] 05/01/2025 9:00 AM EST [facility] P[facility] Day [address] [address] 05/08/2025 9:00 AM EST [facility] Day Center [address] [place] [phone] 05/09/2025 10:00 AM EST [facility] Support [facility] PACE [address] [phone] Bethany Mccabe RN 05/13/2025 11:00 AM EST Office Visit [facility] PACE [address] [phone] Michelle Castillo MD [address] [place] [phone] Brigette East LPN 05/15/2025 9:00 AM EST [facility] Day [address] [phone] 05/22/2025 9:00 AM EST [facility] [place] [facility] [address] [phone] 05/29/2025 9:00 AM EST [facility] Day Center [address] [place] [phone] 05/30/2025 10:00 AM EST [facility] PACE [address] [phone] Bethany Mccabe RN 06/05/2025 9:00 AM EST [facility] P[facility] Day [address] [address] 06/10/2025 11:00 AM EST Office Visit [address] [phone] Michelle Castillo MD [address] [address] Brigette East LPN 06/12/2025 9:00 AM EST PACE Attendance/Day Center [facility] Day [address] [address] 06/19/2025 9:00 AM EST PACE Attendance/Day Center [facility] Day [address] [address] 06/20/2025 10:00 AM EST Clinical Support [address] [phone] Bethany Mccabe RN 06/26/2025 9:00 AM EDT P[facility] Attendance/Day Center [facility] Day [address] [address] 06/27/2025 1:20 PM EDT Office Visit Gastroenterology - [address] [phone] Analisa Perez, ALONSO [address] [place] [address] 07/03/2025 9:00 AM EDT P[facility] Attendance/Day Center [facility] Day [address] [address] 07/10/2025 9:00 AM EDT PACE Attendance/Day Center [facility] PACE Day [address] [address] 07/11/2025 10:00 AM EDT Clinical Support [facility] PACE [address] [phone] Bethany Mccabe RN 07/17/2025 9:00 AM EDT [facility] [facility] [place] [facility] [address] [place] [phone] 07/17/2025 3:30 PM EDT [facility] External Visit [facility] [address] [address] 07/24/2025 9:00 AM EDT [facility] Att[place] [facility] [place] [facility] [address] [place] [phone] 07/31/2025 9:00 AM EDT [facility] [facility] [place] [facility] [address] [place] [phone] 08/01/2025 10:00 AM EDT Clinical [facility] [place] [facility] [address] [place] [phone] Bethany Mccabe RN 08/07/2025 9:00 AM EDT [facility] Att[place] [facility] [place] [facility] [address] [place] [phone] 08/14/2025 9:00 AM EDT [facility] [facility] [place] [facility] [address] [place] [phone] 08/21/2025 9:00 AM EDT [facility] [facility] [place] [facility] [address] [place] [phone] 08/22/2025 10:00 AM EDT Clinical [facility] [place] [facility] [address] [place] [phone] Bethany Mccabe RN 08/28/2025 9:00 AM EDT [facility] [facility] [place] [facility] [address] [place] [phone] 09/04/2025 9:00 AM EDT [facility] [place] [facility] [place] [facility] [address] [place] [phone] 09/11/2025 9:00 AM EDT [facility] [facility] [place] [facility] [address] [place] [phone] 09/12/2025 10:00 AM EDT Clinical [facility] [place] [facility] [address] [place] [phone] Bethany Mccabe, HEIDI 09/18/2025 9:00 AM EDT [facility] [place] [facility] [address] [place] [phone] 09/25/2025 9:00 AM EDT [facility] [place] [facility] [address] [place] [phone] 10/02/2025 9:00 AM EDT [facility] [place] [facility] [address] [place] [phone] 10/03/2025 10:00 AM EDT Clinical Support [facility] [place] [facility] [address] [phone] Bethany Mccabe RN 10/09/2025 9:00 AM EDT [facility] Att[place] [facility] [place] [facility] [address] [place] [phone] 10/24/2025 10:00 AM EDT Clinical Support [facility] [address] [place] [phone] Bethany Mccabe, HEIDI 11/14/2025 10:00 AM EDT Clinical Support [facility] [address] [place] [phone] Bethany Mccabe, RN 12/05/2025 10:00 AM EDT Clinical Support [facility] [place] [facility] [address] [place] [phone] Bethany Mccabe, RN 12/26/2025 10:00 AM EDT Clinical Support [facility] [place] [facility] [address] [place] [phone] Bethany Mccabe RN 01/16/2026 10:00 AM EDT Clinical Support [address] [phone] Bethany Mccabe RN 02/06/2026 10:00 AM EDT Clinical Support [address] [phone] Bethany Mccabe RN 02/27/2026 10:00 AM EST Clinical Support [address] [phone] Bethany Mccabe RN documented as of this encounter Visit Diagnoses Not on filedocumented in this encounter Care Teams Clean Out Driller Helper Relationship Specialty Start Date End Date Regulo Ivy NP [address] [place] [phone] PCP - General PACE 06/07/24 documented as of this encounter
--- OUTSIDE RECORDS SUMMARY | 2025-02-06 11:00 | XMS_ITS | Encounter Summary ---
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 [address] [place] [address] Medication management (Primary Dx); Witnessed seizure-like activity (CMS/HCC V24, CMS/HCC V28) Social History Tobacco Use Types Packs/Day Years Used Date Smoking Tobacco: Never Smokeless Tobacco: Never Alcohol Use Standard Drinks/Week Comments Never 0 (1 standard drink = 0.6 oz pur e alcohol) Housing Instability Answer Date Recorde d Are you worried that in the next 2 months you may not have stable housing? Patient declined 02/04/2025 Food Access & Nutrition Answer Date Rec orded Do you have access to a vari ety of food including fruits and vegetables? Patient declined 02/04/2025 Health Literacy Answer Date Recorded How often do you need to hav e someone help you when you read instructions, pamphlets, or other written material from your doctor or pharmacy? Patient declined 02/04/2025 Caregiver: How often do you need to have someone help you when you read instructions, pamphlets, or other written material from your doctor or pharmacy? Not on file 025 Financial Risk Answer Date Recorded How hard is it for you to pa y for the very basics like food, housing, medical care, and air conditioning / heating? Patient declined 02/04/2025 Transportation Answer Date Recorded Has the lack of transportati on kept you from meetings, work, or from getting things needed for daily living? Patient declined 02/04/2025 Has the lack of transportati on kept you from medical appointments or from getting medications? Patient declined 02/04/2025 Social Isolation Answer Date Recorded How often do you feel lonely or isolated from those around you? Patient declined 02/04/2025 Food Risk Answer Date Recorded Within the past 12 months we worried whether our food would run out before we got money to buy more. Patient declined 025 Within the past 12 months th e food we bought just didn't last and we didn't have money to get more. Patient declined 01/16 Dependent Care Answer Date Recorded Do you need help finding or paying for care for your loved ones. For example, children teacher or elderly care for an older adult? Patient declined 02/04/2025 Education Answer Date Recorded Do you think completing more education or training, like finishing a GED, going to college, or learning a trade, would be helpful for you? Patient declined 02/04/2025 Employment and Income Answer Date Recor ded During the last four weeks, have you been actively looking for work? Patient declined 02/04/2025 Living Situation Answer Date Recorded What is your living situation? Unrecognized valu e 02/04/2025 Interpersonal Safety Answer Date Record ed Physical Abuse Unrecognized value 02/04/2025 Verbal Abuse Unrecognized value 02/04/2025 Comments No Sex and Gender Information Value Date Recorded Sex Assigned at Female 05/22/2024 10:13 AM EST Legal Sex Female 11:45 AM EST Gender Identity Female 05/22/2024 10:13 AM EST Sexual Orientation Choose not to disclose 2024 10:13 AM EST documented as of this encounter Last Filed Vital Signs Vital Sign Reading Time Taken Comments Blood Pressure 112/78 02/06/2025 12:48 PM EDT Pulse 60 02/06/2025 12:48 PM EDT Temperature 36.2 C (97.2 F) 02/06/2025 12:48 PM EDT Respiratory Rate - - Oxygen Saturation 95% 02/06/2025 12:48 PM EDT Inhaled Oxygen Concentration - - Weight - - Height - - Body Mass Index - - documented in this encounter Functional Status * Are you deaf or do you have serious difficulty hearing? Answer Date of Assessment Author No 02/03/2025 3:31 PM EDT Malachi Rehman RN * Are you blind or do you have serious difficulty seeing, even when wearing glasses? Answer Date of Assessment Author Yes 02/03/2025 3:31 PM EDT Malachi Rehman RN * Do you have serious difficulty walking or climbing stairs? Answer Date of Assessment Author Yes 02/03/2025 3:31 PM EDT Malachi Rehman RN * Do you have serious difficulty dressing or bathing? Answer Date of Assessment Author Yes 02/03/2025 3:31 PM EDT Malachi Rehman RN * Because of a physical, mental, or emotional condition, do you have serious difficulty doing errandsalone such as visiting the doctor? Answer Date of Assessment Author Yes 02/03/2025 3:31 PM EDT Malachi Rehman RN documented as of this encounter Mental Status * Because of a physical, mental, or emotional condition, do you have serious difficulty concentrating, remembering, or making decisions? (5 years old or older) Answer Entry Date Author Yes 02/03/2025 3:31 PM EDMalachi Downs RN documented in this encounter Progress Notes * Michelle Castillo MD - 02/06/2025 11:00 AM EDTAssociated Problem(s): Medication management Rexulti was the bridge between the Aristada (injectible Abilfy) to oral medication, given the similarity in structure and pharmacokinetics to Abilify. She is currently on Rexulti 4mg (normal max). If she continues to have intrusive, upsetting auditory hallucinations, she may need to be slowly transitioned to another SGA, such as paliperidone, and carefully monitored. [In the past, a combination of Aristada and olanzapine was trialed together, by psychiatry at the [facility], but she continued to deteriorate with severe, intrusive auditory hallucinations.] Note: -Елена said that she's had [place] in the past, as well as Depakote. Neither of them 'was good' but she does not recall what the problem was, with either. -She has no allergy to Abilify, Aristada or Rexulti, though the hospitalist had mentioned Abilify as an allergy. Given Елена's diagnosis of 'schizoaffective disorder', the mood component should be addressed, with an appropriate medication class (many classes of meds to choose from). [I have not seen severe mood changes in Елена, over the past year that I've seen her. 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 -Елена is on a Very high dose of Keppra (1500mg BID) which interacts significantly, with antipsychotics. Елена is amenable to being seen by a psychiatrist at the [facility], or a neuro-psychiatrist if one if available. Елена is fine with Helen Tang NP, recommending someone at the . We would like this to be done as soon as possible. 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 * Michelle Castillo MD - 02/06/2025 11:00 AM EDTAssociated Problem(s): Witnessed seizure-like activity ([facility] V24, [facility] V28) Елена had a thorough work-up at [facility] inpt stay, which was negative for seizure. The Keppra level wasat the high end of normal, 02/03/25 of 56.3 (range 3.0 to 60.0). f/u with PCP (if unavailable, then with me), in 2 to 3 weeks for routine f/u. Note: Release of info form filled by Елена in clinic, for [facility]. * Michelle Castillo MD - 02/06/2025 11:00 AM EDT Images from the original note were not included. POST HOSPITAL DISCHARGE: Chief Complaint/HPI: Lashanda Sanders is a 64 y.o. female presenting for recent admission to [facility] after seizure-like activity witnessed by [facility] staff. Her workup in the hospital was negative. Lashanda slept well last night, but reports no sleep for 3 nights before that. She currently reports no auditory hallucinations (intrusive, with 'Bernardino', but 'Bladimir' per Елена is still around). Allergies: She is allergic to ibuprofen, oxcarbazepine, peanut, and quetiapine. Medications: Current Outpatient Medications Medication Instructions acetaminophen (TYLENOL) 650 mg, oral, 4 times daily benztropine (COGENTIN) 1 mg, oral, 2 times daily brexpiprazole (REXULTI) 2 mg tablet Take 1 tablet (2 mg total) by mouth 1 (one) time each day for 7days, THEN 1.5 tablets (3 mg total) 1 (one) time each day for 7 days, THEN 2 tablets (4 mg total) 1(one) time each day. [START ON 02/27/2025] brexpiprazole (REXULTI) 4 mg, oral, Daily clopidogreL (PLAVIX) 75 mg, oral, Daily ergocalciferol (VITAMIN D-2) 50,000 Units, oral, Every 30 days fluticasone furoate-vilanteroL (Breo Ellipta) 100-25 mcg/dose inhaler 1 puff, inhalation, Daily gabapentin (NEURONTIN) 200 mg, oral, 2 times daily levETIRAcetam (KEPPRA) 1,500 mg, oral, 2 times daily levothyroxine (SYNTHROID) 100 mcg, oral, Every morning before breakfast lisinopriL (PRINIVIL,ZESTRIL) 5 mg, oral, Daily LORazepam (ATIVAN) 0.5 mg, oral, Nightly metFORMIN (GLUCOPHAGE) 500 mg, oral, Daily, At 17:00 miconazole (Micatin) 2 % cream Topical, 2 times daily mirabegron (MYRBETRIQ) 50 mg, oral, Daily montelukast (SINGULAIR) 10 mg, oral, Nightly nitroglycerin (NITROSTAT) 0.4 mg, sublingual, Every 5 min PRN pantoprazole (PROTONIX) 40 mg, oral, Every morning before breakfast, Do not crush, chew, or split. psyllium husk, with sugar, (Metamucil Fiber Thin) 2.5 gram wafer 2 wafers, oral, Daily, Take with full glass of water pyridoxine (VITAMIN B-6) 25 mg, oral, Daily traZODone (DESYREL) 50 mg, oral, Nightly PRN Review of Systems: Review of Systems Constitutional: Negative for activity change, appetite change, chills, fatigue, fever and unexpected weight change. Respiratory: Negative for cough, chest tightness, shortness of breath and wheezing. Cardiovascular: Negative for chest pain. Gastrointestinal: Positive for vomiting. Negative for abdominal distention, constipation, diarrhea and nausea. Musculoskeletal: Positive for arthralgias and myalgias. Neurological: Positive for tremors. Negative for seizures, weakness, light- headedness, numbness andheadaches. Psychiatric/Behavioral: Negative for agitation, confusion, decreased concentration, dysphoric mood and hallucinations. The patient is not nervous/anxious and is not hyperactive. Objective Visit Vitals BP 112/78 Pulse 60 Temp 36.2 ??C (97.2 ??F) SpO2 95% OB Status Hysterectomy Smoking Status Never Physical Exam Constitutional: General: She is not in acute distress. Appearance: Normal appearance. She is obese. She is not ill-appearing or diaphoretic. HENT: Head: Normocephalic and atraumatic. Mouth/Throat: Mouth: Mucous membranes are dry. Eyes: General: No scleral icterus. Right eye: No discharge. Left eye: No discharge. Extraocular Movements: Extraocular movements intact. Conjunctiva/sclera: Conjunctivae normal. Cardiovascular: Rate and Rhythm: Normal rate and regular rhythm. Pulses: Normal pulses. Heart sounds: Normal heart sounds. No murmur heard. Pulmonary: Effort: Pulmonary effort is normal. No respiratory distress. Breath sounds: Normal breath sounds. No wheezing. Abdominal: General: Bowel sounds are normal. There is no distension. Palpations: Abdomen is soft. Tenderness: There is no abdominal tenderness. Musculoskeletal: Right lower leg: No edema. Left lower leg: No edema. Neurological: Mental Status: She is alert and oriented to person, place, and time. Mental status is at baseline. Motor: Weakness present. Psychiatric: Mood and Affect: Mood normal. Behavior: Behavior normal. Assessment/Plan Assessment & Plan Medication management Rexulti was the bridge between the Aristada (injectible Abilfy) to oral medication, given the similarity in structure and pharmacokinetics to Abilify. She is currently on Rexulti 4mg (normal max). If she continues to have intrusive, upsetting auditory hallucinations, she may need to be slowly transitioned to another SGA, such as paliperidone, and carefully monitored. [In the past, a combination of Aristada and olanzapine was trialed together, by psychiatry at the [facility], but she continued to deteriorate with severe, intrusive auditory hallucinations.] Note: -Елена said that she's had [place] in the past, as well as Depakote. Neither of them 'was good' but she does not recall what the problem was, with either. -She has no allergy to Abilify, Aristada or Rexulti, though the hospitalist had mentioned Abilify as an allergy. Given Елена's diagnosis of 'schizoaffective disorder', the mood component should be addressed, with an appropriate medication class (many classes of meds to choose from). [I have not seen severe mood changes in Елена, over the past year that I've seen her. 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 -Елена is on a Very high dose of Keppra (1500mg BID) which interacts significantly, with antipsychotics. Елена is amenable to being seen by a psychiatrist at the [facility], or a neuro-psychiatrist if one if available. Елена is fine with Helen Tang NP, recommending someone at the . We would like this to be done as soon as possible. 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 Witnessed seizure-like activity (CMS/HCC V24, CMS/HCC V28) Елена had a thorough work-up at [facility] inpt stay, which was negative for seizure. The Keppra level wasat the high end of normal, 02/03/25 of 56.3 (range 3.0 to 60.0). f/u with PCP (if unavailable, then with me), in 2 to 3 weeks for routine f/u. Note: Release of info form filled by Елена in clinic, for [facility]. MD [facility] [address] [place] [phone] Dept: [phone] Dept Date of Visit: 02/06/2025 documented in this encounter Plan of Treatment Upcoming Encounters Date Type Department Care Team (Latest Contact Info) Description 02/12/2025 8:30 AM EDT [facility] [address] [place] [phone] Carmen Hartmann 02/12/2025 4:30 PM EDT [facility] [address] [place] [phone] Ashley Eastman 02/13/2025 8:30 AM EDT [facility] [address] [place] [phone] Carmen Hartmann 02/13/2025 9:00 AM EDT [facility] [address] [place] [address] 02/13/2025 4:30 PM EDT [facility] [address] [place] [phone] Ashley Eastman 02/14/2025 8:00 AM EDT [facility] [address] [place] [phone] Carmen Hartmann 02/14/2025 9:30 AM EDT [facility] [address] [place] [phone] Ralph Loyola 02/14/2025 4:30 PM EDT [facility] [address] [place] [phone] Ashley Eastman 02/15/2025 8:30 AM EDT [facility] [address] [place] [phone] Marysol Diaz 02/15/2025 12:00 PM EDT [facility] [address] [place] [phone] Natali Sanford 02/15/2025 5:30 PM EDT [facility] [address] [place] [phone] aMrysol Diaz 02/16/2025 8:30 AM EST [facility] [address] [place] [phone] Marysol Diaz 02/16/2025 12:00 PM EST [facility] [address] [place] [phone] Natali Sanford 02/16/2025 4:30 PM EST [facility] [address] [place] [phone] Marysol Diaz 02/16/2025 5:30 PM EST [facility] [address] [place] [phone] Marysol Diaz 02/17/2025 8:30 AM EST [facility] [address] [place] [phone] Carmen Hartmann 02/17/2025 11:00 AM EST [facility] [address] [place] [phone] Michelle Castillo MD [address] [place] [phone] 02/17/2025 4:30 PM EST [facility] [address] [place] [phone] Ashley Eastman 02/18/2025 8:30 AM EST [facility] [address] [place] [phone] Carmen Hartmann 02/18/2025 11:00 AM EST [facility] Visit [facility] [address] [place] [phone] Michelle Castillo MD [address] [address] Brigette East LPN 02/18/2025 4:30 PM EST [facility] [address] [place] [phone] Ashley Eastman 02/19/2025 8:30 AM EST [facility] [address] [place] [phone] Carmen Hartmann 02/19/2025 4:30 PM EST [facility] [address] [place] [phone] Ashley Eastman 02/20/2025 8:30 AM EST [facility] [address] [place] [phone] Carmen Hartmann 02/20/2025 9:00 AM EST [facility] [address] [place] [phone] 02/20/2025 4:30 PM EST [facility] [address] [place] [phone] Ashley Eastman 02/21/2025 8:00 AM EST [facility] [place] [facility] [address] [place] [phone] Carmen Hartmann 02/21/2025 9:30 AM EST [facility] [place] [facility] [address] [place] [phone] Ralph Loyola 02/21/2025 4:30 PM EST [facility] [address] [place] [phone] Ashley Eastman 02/22/2025 12:00 PM EST [facility] [address] [place] [phone] Dena Chavez 02/23/2025 12:00 PM EST [facility] [place] [facility] [address] [place] [phone] Dena Chavez 02/24/2025 8:30 AM EST [facility] [address] [place] [phone] Carmen Hartmann 02/24/2025 4:30 PM EST [facility] [address] [place] [phone] Ashley Eastman 02/25/2025 8:30 AM EST [facility] [address] [place] [phone] Carmen Hartmann 02/25/2025 4:30 PM EST [facility] [address] [place] [phone] Ashley Eastman 02/26/2025 8:30 AM EST [facility] [address] [place] [phone] Carmen Hartmann 02/26/2025 4:30 PM EST [facility] [address] [place] [phone] Ashley Eastman 02/27/2025 8:30 AM EST [facility] [address] [place] [phone] Carmen Hartmann 02/27/2025 9:00 AM EST [facility] [address] [place] [phone] 02/27/2025 4:30 PM EST [facility] [place] [facility] [address] [place] [phone] Ashley Eastman 02/28/2025 8:00 AM EST [facility] [address] [place] [phone] Carmen Hartmann 02/28/2025 9:30 AM EST [facility] [address] [place] [phone] Ralph Loyola 02/28/2025 4:30 PM EST [facility] [place] [facility] [address] [place] [phone] Ashley Eastman 03/01/2025 8:30 AM EST [facility] [address] [place] [phone] Marysol Diaz 03/01/2025 12:00 PM EST [facility] [address] [place] [phone] Natali Sanford 03/01/2025 5:30 PM EST [facility] [address] [place] [phone] Marysol Diaz 03/02/2025 8:30 AM EST [facility] [address] [place] [phone] Marysol Diaz 03/02/2025 12:00 PM EST [facility] [address] [place] [phone] Natali Sanford 03/02/2025 4:30 PM EST [facility] [address] [place] [phone] Marysol Diaz 03/02/2025 5:30 PM EST [facility] [address] [place] [phone] Marysol Diaz 03/03/2025 8:30 AM EST [facility] [address] [place] [phone] Carmen Hartmann 03/03/2025 4:30 PM EST [facility] [address] [place] [phone] Ashley Eastman 03/04/2025 8:30 AM EST [facility] [address] [place] [phone] Carmen Hartmann 03/04/2025 4:30 PM EST [facility] [address] [place] [phone] Ashley Eastman 03/05/2025 8:30 AM EST [facility] [address] [place] [phone] Carmen Hartmann 03/05/2025 4:30 PM EST [facility] [address] [place] [phone] Ashley Eastman 03/06/2025 8:30 AM EST [facility] [address] [place] [phone] Carmen Hartmann 03/06/2025 9:00 AM EST [facility] [address] [place] [address] 03/06/2025 4:30 PM EST [facility] [address] [place] [phone] Ashley Eastman 03/07/2025 [facility] Occupational Therapy [address] [place] [phone] Clemencia Napier, OT Schizophrenia in partial remission with history of multiple episodes (CMS/HCC V24, CMS/HCC V28) 03/07/2025 8:00 AM EST PACE Home Care / PACE Home Visit [facility] [address] [place] [phone] Carmen Hartmann 03/07/2025 9:00 AM EST Clinical Support [facility] [address] [place] [address] Bethany Mccabe, HEIDI 03/07/2025 9:30 AM EST PACE Home Care / PACE Home Visit [facility] [address] [place] [phone] Ralph Loyola 03/07/2025 4:30 PM EST PACE Home Care / PACE Home Visit [facility] [address] [place] [phone] Ashley Eastman 03/08/2025 12:00 PM EST PACE Home Care / [facility] Visit [facility] [place] [facility] [address] [place] [phone] Dena Chavez 03/09/2025 12:00 PM EST PACE Home Care / [facility] Home Visit [facility] [place] [facility] [address] [place] [phone] Dena Chavez 03/10/2025 8:30 AM EST PACE Home Care / [facility] Home Visit [facility] [place] [facility] [address] [place] [phone] Carmen Hartmann 03/10/2025 4:30 PM EST PACE Home Care / PACE Home Visit [facility] [place] [facility] [address] [place] [phone] Ashley Eastman 03/11/2025 8:30 AM EST PACE Home Care / PACE Home Visit [facility] [place] [facility] [address] [place] [phone] Carmen Hartmann 03/11/2025 4:30 PM EST PACE Home Care / PACE Home Visit [facility] [place] [facility] [address] [place] [phone] Ashley Eastman 03/12/2025 8:30 AM EST PACE Home Care / PACE Home Visit [facility] [place] [facility] [address] [place] [phone] Carmen Hartmann 03/12/2025 4:30 PM EST PACE Home Care / [facility] Home Visit [facility] [place] [facility] [address] [place] [phone] Ashley Eastman 03/13/2025 8:30 AM EST PACE Home Care / [facility] Home Visit [facility] [place] [facility] [address] [place] [phone] Carmen Hartmann 03/13/2025 9:00 AM EST PACE Attendance/[facility] [place] [facility] [address] [place] [address] 03/13/2025 4:30 PM EST PACE Home Care / PACE Home Visit [facility] [place] [facility] [address] [place] [address] Ashley Eastman 03/14/2025 8:00 AM EST PACE Home Care / [facility] Home Visit [facility] [place] [facility] [address] [place] [address] Carmen Hartmann 03/14/2025 9:30 AM EST PACE Home Care / PACE Home Visit [facility] [place] [facility] [address] [place] [address] Ralph Loyola 03/14/2025 4:30 PM EST PACE Home Care / [facility] Home Visit [facility] [place] [facility] [address] [place] [address] Ashley Eastman 03/15/2025 8:30 AM EST PACE Home Care / [facility] Home Visit [facility] [place] [facility] [address] [place] [phone] Marysol Diaz 03/15/2025 12:00 PM EST PACE Home Care / [facility] Home Visit [facility] [place] [facility] [address] [place] [phone] Natali Sanford 03/15/2025 5:30 PM EST PACE Home Care / [facility] Home Visit [facility] [place] [facility] [address] [place] [phone] Marysol Diaz 03/16/2025 8:30 AM EST PACE Home Care / P[facility] Home Visit [facility] [place] [facility] [address] [place] [phone] Marysol Diaz 03/16/2025 12:00 PM EST PACE Home Care / [facility] Home Visit [facility] [place] [facility] [address] [place] [phone] Natali Sanford 03/16/2025 4:30 PM EST PACE Home Care / [facility] Home Visit [facility] [place] [facility] [address] [place] [phone] Marysol Diaz 03/16/2025 5:30 PM EST PACE Home Care / [facility] Home Visit [facility] [place] [facility] [address] [place] [phone] Marysol Diaz 03/17/2025 8:30 AM EST PACE Home Care / PACE Home Visit [facility] [place] [facility] [address] [place] [phone] Carmen Hartmann 03/17/2025 4:30 PM EST PACE Home Care / [facility] Home Visit [facility] [place] [facility] [address] [place] [phone] Ashley Eastman 03/18/2025 8:30 AM EST PACE Home Care / [facility] Home Visit [facility] [place] [facility] [address] [place] [phone] Carmen Hartmann 03/18/2025 11:00 AM EST Office Visit [facility] [address] [place] [phone] Michelle Castillo MD [address] [place] [phone] Brigette East LPN 03/18/2025 4:30 PM EST PACE Home Care / [facility]ACE Home Visit [facility] [place] [facility] [address] [place] [phone] Ashley Eastman 03/19/2025 8:30 AM EST PACE Home Care / [facility] Home Visit [facility] [place] [facility] [address] [place] [phone] Carmen Hartmann 03/19/2025 4:30 PM EST PACE Home Care / [facility]ACE Home Visit [facility] [place] [facility] [address] [place] [phone] Ashley Eastman 03/20/2025 8:30 AM EST PACE Home Care / [facility]ACE Home Visit [facility] [place] [facility] [address] [place] [phone] Carmen Hartmann 03/20/2025 9:00 AM EST P[facility] Attendance[place] [facility] [place] [facility] [address] [place] [address] 03/20/2025 4:30 PM EST PACE Home Care / [facility] Home Visit [facility] [place] [facility] [address] [place] [address] Ashley Eastman 03/21/2025 8:00 AM EST PACE Home Care / [facility] Home Visit [facility] [place] [facility] [address] [place] [phone] Carmen Hartmann 03/21/2025 9:30 AM EST PACE Home Care / [facility] Home Visit [facility] [place] [facility] [address] [place] [phone] Ralph Loyola 03/21/2025 4:30 PM EST PACE Home Care / [facility]ACE Home Visit [facility] [place] [facility] [address] [place] [address] Ashley Eastman 03/22/2025 12:00 PM EST PACE Home Care / [facility] Home Visit [facility] [place] [facility] [address] [place] [phone] Dena Chavez 03/23/2025 12:00 PM EST PACE Home Care / [facility] Home Visit [facility] [place] [facility] [address] [place] [phone] Dena Mccord 03/24/2025 8:30 AM EST PACE Home Care / PACE Home Visit [facility] [address] [place] [address] Carmen Hartmann 03/24/2025 9:45 AM EST Appointment [facility] Xray [address] [place] [address] Lakia Hou, [facility]-CLINICAL PHYSICIAN ASSISTANT 03/24/2025 4:30 PM EST PACE Home Care / PACE Home Visit [facility] [address] [place] [address] Ashley Eastmna 03/25/2025 8:30 AM EST PACE Home Care / PACE Home Visit [facility] [address] [place] [address] Carmen Hartmann 03/25/2025 4:30 PM EST PACE Home Care / PACE Home Visit [facility] [address] [place] [phone] Ashley Eastman 03/26/2025 8:30 AM EST PACE Home Care / PACE Home Visit [facility] [address] [place] [phone] Carmen Hartmann 03/26/2025 4:30 PM EST PACE Home Care / PACE Home Visit [facility] [address] [place] [phone] Ashley Eastman 03/27/2025 8:30 AM EST PACE Home Care / PACE Home Visit [facility] [address] [place] [phone] Carmen Hartmann 03/27/2025 9:00 AM EST PACE Attendance/[facility] [place] [facility] [address] [place] [address] 03/27/2025 2:40 PM EST Clinical Support [facility] [place] [address] [place] [address] 03/27/2025 4:30 PM EST PACE Home Care / PACE Home Visit [facility] [place] [facility] [address] [place] [address] Ashley Eastman 03/28/2025 8:00 AM EST PACE Home Care / [facility]ACE Home Visit [facility] [place] [facility] [address] [place] [address] Carmen Hartmann 03/28/2025 10:00 AM EST Clinical Support [facility] [place] [facility] [address] [place] [address] Bethany Mccabe RN 03/28/2025 4:30 PM EST PACE Home Care / PACE Home Visit [facility] [place] [facility] [address] [place] [address] Ashley Eastman 03/29/2025 8:30 AM EST PACE Home Care / [facility] Visit [facility] [address] [place] [address] Marysol Diaz 03/29/2025 12:00 PM EST PACE Home Care / PACE Home Visit [facility] [place] [facility] [address] [place] [phone] Natali Sanford 03/29/2025 5:30 PM EST PACE Home Care / PACE Home Visit [facility] [place] [facility] [address] [place] [address] Marysol Diaz 03/30/2025 8:30 AM EST PACE Home Care / PACE Home Visit [facility] [place] [facility] [address] [place] [phone] Marysol Diaz 03/30/2025 12:00 PM EST PACE Home Care / [facility] Home Visit [facility] [place] [facility] [address] [place] [phone] Natali Sanford 03/30/2025 4:30 PM EST PACE Home Care / PACE Home Visit [facility] [place] [facility] [address] [place] [address] Marysol Diaz 03/30/2025 5:30 PM EST PACE Home Care / PACE Home Visit [facility] [place] [facility] [address] [place] [address] Marysol Diaz 03/31/2025 8:30 AM EST PACE Home Care / PACE Home Visit [facility] [place] [facility] [address] [place] [address] Carmen Hartmann 03/31/2025 4:30 PM EST PACE Home Care / PACE Home Visit [facility] [place] [facility] [address] [place] [phone] Ashley Eastman 04/01/2025 8:30 AM EST PACE Home Care / PACE Home Visit [facility] [place] [facility] [address] [place] [phone] Carmen Hartmann 04/01/2025 1:15 PM EST PACE External Visit [facility] [place] [address] [place] [phone] 04/01/2025 4:30 PM EST PACE Home Care / PACE Home Visit [facility] [place] [facility] [address] [place] [address] Ashley Eastman 04/02/2025 8:30 AM EST PACE Home Care / PACE Home Visit [facility] [place] [facility] [address] [place] [phone] Carmen Hartmann 04/02/2025 4:30 PM EST PACE Home Care / PACE Home Visit [facility] [place] [facility] [address] [place] [phone] Ashley Eastman 04/03/2025 8:30 AM EST PACE Home Care / PACE Home Visit [facility] [place] [facility] [address] [place] [address] Carmen Hartmann 04/03/2025 9:00 AM EST PACE Attendance/[facility] [place] [facility] [address] [place] [address] 04/03/2025 4:30 PM EST PACE Home Care / P[facility] Home Visit [facility] [place] [facility] [address] [place] [address] Ashley Eastman 04/04/2025 8:00 AM EST PACE Home Care / PACE Home Visit [facility] [address] [place] [phone] Carmen Hartmann 04/04/2025 9:30 AM EST PACE Home Care / PACE Home Visit [facility] [place] [facility] [address] [place] [phone] Ralph Loyola 04/04/2025 4:30 PM EST PACE Home Care / PACE Home Visit [facility] [place] [facility] [address] [place] [phone] Ashley Eastman 04/05/2025 12:00 PM EST PACE Home Care / [facility] Home Visit [facility] [place] [facility] [address] [place] [phone] Dena Chavez 04/06/2025 12:00 PM EST PACE Home Care / PACE Home Visit [facility] [place] [facility] [address] [place] [phone] Dena Chavez 2025 8:30 AM EST PACE Home Care / PACE Home Visit [facility] [place] [facility] [address] [place] [phone] Carmen Hartmann 2025 4:30 PM EST PACE Home Care / PACE Home Visit [facility] [place] [facility] [address] [place] [address] Ashley Eastman 04/08/2025 8:30 AM EST PACE Home Care / PACE Home Visit [facility] [place] [facility] [address] [place] [address] Carmen Hartmann 04/08/2025 4:30 PM EST PACE Home Care / PACE Home Visit [facility] [place] [facility] [address] [place] [address] Ashley Eastman 04/09/2025 8:30 AM EST PACE Home Care / PACE Home Visit [facility] [place] [facility] [address] [place] [address] Carmen Hartmann 04/09/2025 4:30 PM EST PACE Home Care / PACE Home Visit [facility] [place] [facility] [address] [place] [address] Ashley Eastman 04/10/2025 8:30 AM EST PACE Home Care / [facility] Home Visit [facility] [place] [facility] [address] [place] [address] Carmen Hartmann 04/10/2025 9:00 AM EST PACE Attendance[facility] [place] [facility] [address] [place] [address] 04/10/2025 4:30 PM EST PACE Home Care / PACE Home Visit [facility] [place] [facility] [address] [place] [address] Ashley Eastman 04/11/2025 8:00 AM EST PACE Home Care / PACE Home Visit [facility] [place] [facility] [address] [place] [address] Carmen Hartmann 04/11/2025 9:30 AM EST PACE Home Care / [facility] Home Visit [facility] [place] [facility] [address] [place] [phone] Ralph Loyola 04/11/2025 4:30 PM EST PACE Home Care / PACE Home Visit [facility] [address] [place] [phone] Ashley Eastman 04/12/2025 8:30 AM EST PACE Home Care / PACE Home Visit [facility] [address] [place] [phone] Marysol Diaz 04/12/2025 12:00 PM EST PACE Home Care / PACE Home Visit [facility] [address] [place] [phone] Natali Sanford 04/12/2025 5:30 PM EST PACE Home Care / PACE Home Visit [facility] [address] [place] [phone] Marysol Diaz 04/15/2025 11:00 AM EST Office Visit [facility] [address] [place] [phone] Michelle Castillo MD [address] [place] [phone] Brigette East LPN 04/17/2025 9:00 AM EST PACE Attendance/[facility] [address] [place] [phone] 04/18/2025 10:00 AM EST Clinical Support [facility] [address] [place] [phone] Bethany Mccabe RN 04/24/2025 9:00 AM EST PACE Attendance/Day [facility] [address] [place] [phone] 04/24/2025 11:30 AM EST Clinical Support [facility] [address] [place] [address] 05/01/2025 9:00 AM EST PACE Attendance/Day Center [facility] [address] [place] [phone] 05/08/2025 9:00 AM EST PACE Attendance/Day Center [facility] Day [facility] [address] [place] [phone] 05/09/2025 10:00 AM EST Clinical Support [facility] [address] [place] [phone] Bethany Mccabe, HEIDI 05/13/2025 11:00 AM EST Office Visit [facility] Clinic [address] [place] [phone] Michelle Castillo MD [address] [place] [phone] Brigette East LPN 05/15/2025 9:00 AM EST PACE Attendance/Day Center [facility] Day [facility] [address] [place] [phone] 05/22/2025 9:00 AM EST PACE Attendance/Day Center [facility] Day [facility] [address] [place] [phone] 05/29/2025 9:00 AM EST PACE Attendance/Day Center [facility] Day [facility] [address] [place] [phone] 05/30/2025 10:00 AM EST Clinical Support [facility] [address] [place] [phone] Bethany Mccabe RN 06/05/2025 9:00 AM EST PACE Attendance/Day Center [facility] Day [facility] [address] [place] [phone] 06/10/2025 11:00 AM EST Office Visit [facility] [address] [place] [phone] Michelle Castillo MD [address] [address] Brigette East LPN 06/12/2025 9:00 AM EST PACE Attendance/Day Center [facility] Day [facility] [address] [place] [phone] 06/19/2025 9:00 AM EST PACE Attendance/Day Center [facility] Day [address] [address] 06/20/2025 10:00 AM EST Clinical Support [address] [phone] Bethany Mccabe, HEIDI 06/26/2025 9:00 AM EDT PACE Attendance/Day Center [facility] Day [address] [address] 06/27/2025 1:20 PM EDT Office Visit Gastroenterology - [address] [place] [phone] Analisa Perez, ALONSO [address] [place] [address] 07/03/2025 9:00 AM EDT PACE Attendance/Day Center [facility] Day [address] [address] 07/10/2025 9:00 AM EDT PACE Attendance/Day Center [facility] Day [address] [address] 07/11/2025 10:00 AM EDT Clinical Support [address] [phone] Bethany Mccabe RN 07/17/2025 9:00 AM EDT PACE Attendance/Day Center [facility] Day [address] [address] 07/17/2025 3:30 PM EDT PACE External Visit [facility] [address] [place] [address] 07/24/2025 9:00 AM EDT PACE Attendance/[facility] [place] [facility] [address] [place] [phone] 07/31/2025 9:00 AM EDT PACE Attendance/[facility] [place] [facility] [address] [place] [phone] 08/01/2025 10:00 AM EDT Clinical Support [facility] [place] [facility] [address] [place] [phone] Bethany Mccabe RN 08/07/2025 9:00 AM EDT PACE Attendance/[facility] [place] [facility] [address] [place] [phone] 08/14/2025 9:00 AM EDT PACE Attendance/[facility] [place] [facility] [address] [place] [phone] 08/21/2025 9:00 AM EDT PACE Attendance/[facility] [place] [facility] [address] [place] [phone] 08/22/2025 10:00 AM EDT Clinical Support [facility] [place] [facility] [address] [place] [phone] Bethany Mccabe RN 08/28/2025 9:00 AM EDT PACE Attendance/[facility] [place] [facility] [address] [place] [phone] 09/04/2025 9:00 AM EDT PACE Attendance/[facility] [place] [facility] [address] [place] [phone] 09/11/2025 9:00 AM EDT PACE Attendance/[facility] [place] [facility] [address] [place] [phone] 09/12/2025 10:00 AM EDT Clinical Support [facility] [address] [place] [phone] Bethany Mccabe, HEIDI 09/18/2025 9:00 AM EDT PACE Attendance/Day Center [facility] [address] [place] [phone] 09/25/2025 9:00 AM EDT PACE Attendance[facility] Day Center [address] [place] [phone] 10/02/2025 9:00 AM EDT PACE Attendance/Day Center [facility] [address] [place] [phone] 10/03/2025 10:00 AM EDT Clinical Support [facility] [address] [phone] Bethany Mccabe, HEIDI 10/09/2025 9:00 AM EDT PACE Attendance/[facility] [address] [address] 10/24/2025 10:00 AM EDT Clinical Support [facility] [address] [phone] Bethany Mccabe, HEIDI 11/14/2025 10:00 AM EDT Clinical Support [facility] [address] [phone] Bethany Mccabe, HEIDI 12/05/2025 10:00 AM EDT Clinical Support [facility] [address] [place] [phone] Bethany Mccabe, HEIDI 12/26/2025 10:00 AM EDT Clinical Support [facility] [place] [address] [phone] Bethany Mccabe, RN 01/16/2026 10:00 AM EDT Clinical Support [facility] [address] [phone] Bethany Mccabe RN 02/06/2026 10:00 AM EDT Clinical Support [address] [phone] Bethany Mccabe RN 02/27/2026 10:00 AM EST Clinical Support [address] [phone] Bethany Mccabe, RN documented as of this encounter Visit Diagnoses Diagnosis Medication management- Primary Witnessed seizure-like activity ([facility] V24, [facility] V28) Schizophrenia in partial remission with history of multiple episodes ([facility] V24, [facility] V28) documented in this encounter Discontinued Medications Medication Sig Discontinue Reason Start Date End Da te senna 8.6 mg tabletIndications:Mild persistent asthma without complication,Mixed hyperlipidemia,Overactive bladder,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
--- OUTSIDE RECORDS SUMMARY | 2025-02-06 17:00 | XMS_ITS | Encounter Summary ---
Author Organization [facility] Address [address] [place] [address] Care Team Providers Care Phosphorus Processing Supervisor Name Role Phone Regulo Ivy NP Primary Care Provider [phone] Encounter Details Date Type Department Care Team (Late st Contact Info) Description 02/06/2025 5:00 PM EDT PACE Home Care / PACE Home Visit [facility] [address] [place] [address] Ashley Eastman Social History Tobacco Use Types Packs/Day Years [...] care for your loved ones. For example, child custody evaluator or elderly care for an older adult? [...] of Assessment Author Yes 02/03/2025 3:31 PM PARMINDERT Malachi Rehman RN * Because of a physical, mental, or emotional condition, do you have serious difficulty doing errandsalone such as visiting the doctor? Answer Date of Assessment Author Yes 02/03/2025 3:31 PM Malachi Fatima RN documented as of this encounter Mental [...] [place] [facility] [address] [place] [phone] Carmen Hartmann 02/12/2025 4:30 PM EDT PACE Home Care / [facility] [place] [facility] [address] [place] [phone] Ashley Eastman 02/13/2025 8:30 AM EDT PACE Home Care / [facility] Home Visit [facility] [place] [facility] [address] [place] [phone] Carmen Hartmann 02/13/2025 9:00 AM EDT PACE Attendance/Day [facility] [address] [place] [phone] 02/13/2025 4:30 PM EDT PACE Home Care / [facility] [place] [facility] [address] [place] [address] Ashley Eastman 02/14/2025 8:00 AM EDT PACE Home Care / [facility] Home [facility] [place] [facility] [address] [place] [address] Carmen Hartmann 02/14/2025 9:30 AM EDT PACE Home Care / [facility] Home Visit [facility] [place] [facility] [address] [place] [phone] Ralph Loyola 02/14/2025 4:30 PM EDT PACE Home Care / [place] Home Visit [facility] [place] [facility] [address] [place] [phone] Ashley Eastman 02/15/2025 8:30 AM EDT PACE Home Care / [place] Home Visit [facility] [place] [facility] [address] [place] [phone] Marysol Diaz 02/15/2025 12:00 PM EDT PACE Home Care / [facility] Home Visit [facility] [place] [facility] [address] [place] [phone] Natali Sanford 02/15/2025 5:30 PM EDT PACE Home Care / [place] [facility] Visit [facility] [place] [facility] [address] [place] [phone] Marysol Diaz 02/16/2025 8:30 AM EST PACE Home Care / [facility] Home [facility] [place] [facility] [address] [place] [phone] Marysol Diaz 02/16/2025 12:00 PM EST PACE Home Care / [facility] [facility] [place] [facility] [address] [place] [phone] Natali Sanford 02/16/2025 4:30 PM EST PACE Home Care / [place] Home Visit [facility] [place] [facility] [address] [place] [phone] Marysol Diaz 02/16/2025 5:30 PM EST PACE Home Care / [facility] Home Visit [facility] [place] [facility] [address] [place] [phone] Marysol Diaz 02/17/2025 8:30 AM EST PACE Home Care / [place] [facility] [place] [facility] [address] [place] [phone] Carmen Hartmann 02/17/2025 11:00 AM EST [facility] [place] [facility] [address] [place] [phone] Michelle Castillo MD [address] [place] [phone] 02/17/2025 4:30 PM EST PACE Home Care / [facility] Home [facility] [place] [facility] [address] [place] [phone] Ashley Eastman 02/18/2025 8:30 AM EST PACE Home Care / [facility] Home Visit [facility] [place] [facility] [address] [place] [phone] Carmen Hartmann 02/18/2025 11:00 AM EST Office Visit [facility] [place] [facility] [address] [place] [phone] Michelle Castillo MD [address] [place] [phone] Brigette East LPN 02/18/2025 4:30 PM EST PACE Home Care / [facility] Home Visit [facility] [place] [facility] [address] [place] [phone] Ashley Eastman 02/19/2025 8:30 AM EST P[facility] Home Care / [facility] Home Visit [facility] [place] [facility] [address] [place] [address] Carmen Hartmann 02/19/2025 4:30 PM EST PACE Home Care / [facility] Home Visit [facility] [place] [facility] [address] [place] [phone] Ashley Eastman 02/20/2025 8:30 AM EST P[facility] Home Care / [facility] Home [facility] [place] [facility] [address] [place] [address] Carmen Hartmann 02/20/2025 9:00 AM EST [facility] [facility] [place] [facility] [address] [place] [phone] 02/20/2025 4:30 PM EST PACE Home Care / [facility] [facility] [place] [facility] [address] [place] [phone] Ashley Eastman 02/21/2025 8:00 AM EST PACE Home Care / [facility] [place] [facility] [address] [place] [phone] Carmen Hartmann 02/21/2025 9:30 AM EST P[facility] Home Care / [facility] Home Visit [facility] [place] [facility] [address] [place] [phone] Ralph Loyola 02/21/2025 4:30 PM EST PACE Home Care / [facility] [facility] Visit [facility] [place] [facility] [address] [place] [phone] Ashley Eastman 02/22/2025 12:00 PM EST PACE Home Care / [place] Home Visit [facility] [place] [facility] [address] [place] [phone] Dena Chavez 02/23/2025 12:00 PM EST PACE Home Care / [facility] Home Visit [facility] [place] [facility] [address] [place] [address] Dena Chavez 02/24/2025 8:30 AM EST PACE Home Care / [facility] Home Visit [facility] [place] [facility] [address] [place] [address] Carmen Hartmann 02/24/2025 4:30 PM EST PACE Home Care / [facility] [place] [facility] [address] [place] [phone] Ashley Eastman 02/25/2025 8:30 AM EST PACE Home Care / [facility] Home Visit [facility] [place] [facility] [address] [place] [phone] Carmen Hartmann 02/25/2025 4:30 PM EST PACE Home Care / [facility] Home Visit [facility] [place] [facility] [address] [place] [address] Ashley Eastman 02/26/2025 8:30 AM EST PACE Home Care / [facility] Home Visit [facility] [place] [facility] [address] [place] [phone] Carmen Hartmann 02/26/2025 4:30 PM EST PACE Home Care / [facility] Home Visit [facility] [place] [facility] [address] [place] [phone] Ashley Eastman 02/27/2025 8:30 AM EST PACE Home Care / [facility] Visit [facility] [place] [facility] [address] [place] [phone] Carmen Hartmann 02/27/2025 9:00 AM EST [facility] Attendance[facility] [facility] [place] [facility] [address] [place] [address] 02/27/2025 4:30 PM EST PACE Home Care / [facility] [place] [facility] [address] [place] [address] Ashley Eastman 02/28/2025 8:00 AM EST PACE Home Care / [facility] Home Visit [facility] [place] [facility] [address] [place] [address] Carmen Hartmann 02/28/2025 9:30 AM EST PACE Home Care / [facility] Home Visit [facility] [place] [facility] [address] [place] [address] Ralph Loyola 02/28/2025 4:30 PM EST PACE Home Care / [facility] Home Visit [facility] [place] [facility] [address] [place] [phone] Ashley Eastman 03/01/2025 8:30 AM EST PACE Home Care / [facility] Home Visit [facility] [place] [facility] [address] [place] [phone] Marysol Diaz 03/01/2025 12:00 PM EST PACE Home Care / [facility] Home Visit [facility] [place] [facility] [address] [place] [phone] Natali Sanford 03/01/2025 5:30 PM EST PACE Home Care / [place] Home Visit [facility] [place] [facility] [address] [place] [phone] Marysol Diaz 03/02/2025 8:30 AM EST PACE Home Care / [facility] Home Visit [facility] [place] [facility] [address] [place] [phone] Marysol Diaz 03/02/2025 12:00 PM EST PACE Home Care / [facility] Home Visit [facility] [place] [facility] [address] [place] [phone] Natali Sanford 03/02/2025 4:30 PM EST PACE Home Care / P[facility] Home Visit [facility] [place] [facility] [address] [place] [address] Marysol Diaz 03/02/2025 5:30 PM EST PACE Home Care / [facility] Home Visit [facility] [place] [facility] [address] [place] [address] Marysol Daiz 03/03/2025 8:30 AM EST PACE Home Care / [facility] Home Visit [facility] [place] [facility] [address] [place] [address] Carmen Hartmann 03/03/2025 4:30 PM EST PACE Home Care / [facility] Visit [facility] [address] [place] [phone] Ashley Eastman 03/04/2025 8:30 AM EST PACE Home Care / [facility] Home Visit [facility] [place] [facility] [address] [place] [phone] Carmen Hartmann 03/04/2025 4:30 PM EST PACE Home Care / [facility] Home Visit [facility] [place] [facility] [address] [place] [phone] Ashley Eastman 03/05/2025 8:30 AM EST PACE Home Care / [facility] Home Visit [facility] [place] [facility] [address] [place] [phone] Carmen Hartmann 03/05/2025 4:30 PM EST PACE Home Care / PACE Home Visit [facility] [place] [facility] [address] [place] [phone] Ashley Eastman 03/06/2025 8:30 AM EST PACE Home Care / [facility] Home Visit [facility] [place] [facility] [address] [place] [phone] Carmen Hartmann 03/06/2025 9:00 AM EST [facility] Att[facility] [place] [facility] [address] [place] [address] 03/06/2025 4:30 PM EST PACE Home Care / P[facility] Home Visit [facility] [address] [place] [address] Ashley Eastman 03/07/2025 Lab [facility] Occupational [facility] [address] [place] [address] Clemencia Napire, OT Schizophrenia in partial remission with history of multiple episodes (CMS/HCC V24, CMS/HCC V28) 03/07/2025 8:00 AM EST PACE Home Care / PACE Home Visit [facility] [address] [place] [phone] Carmen Hartmann 03/07/2025 9:00 AM EST Clinical Support [facility] [place] [facility] [address] [place] [phone] Bethany Mccabe RN 03/07/2025 9:30 AM EST PACE Home Care / P[facility] Home Visit [facility] [address] [place] [phone] Ralph Loyola 03/07/2025 4:30 PM EST PACE Home Care / P[facility] Home Visit [facility] [address] [place] [phone] Ashley Eastman 03/08/2025 12:00 PM EST PACE Home Care / P[facility] Home Visit [facility] [address] [place] [phone] Dena Chavez 03/09/2025 12:00 PM EST PACE Home Care / P[facility] Home Visit [facility] [address] [place] [phone] Dena Chavez 03/10/2025 8:30 AM EST PACE Home Care / [facility] Home Visit [facility] [place] [facility] [address] [place] [address] Carmen Hartmann 03/10/2025 4:30 PM EST PACE Home Care / PACE Home Visit [facility] [address] [place] [phone] Ashley Eastman 03/11/2025 8:30 AM EST PACE Home Care / P[facility] Home Visit [facility] [address] [place] [address] Carmen Hartmann 03/11/2025 4:30 PM EST PACE Home Care / P[facility] Home Visit [facility] [address] [place] [phone] Ashley Eastman 03/12/2025 8:30 AM EST PACE Home Care / P[facility] Home Visit [facility] [address] [place] [phone] Carmen Hartmann 03/12/2025 4:30 PM EST PACE Home Care / [facility] Home Visit [facility] [address] [place] [phone] Ashley Eastman 03/13/2025 8:30 AM EST PACE Home Care / [facility] Home Visit [facility] [address] [place] [phone] Carmen Hartmann 03/13/2025 9:00 AM EST [facility] Att[facility] [place] [facility] [address] [place] [address] 03/13/2025 4:30 PM EST PACE Home Care / P[facility] Home Visit [facility] [address] [place] [phone] Ashley Eastman 03/14/2025 8:00 AM EST PACE Home Care / [facility] Visit [facility] [address] [place] [address] Carmen Hartmann 03/14/2025 9:30 AM EST PACE Home Care / [facility] Visit [facility] [place] [facility] [address] [place] [address] Ralph Loyola 03/14/2025 4:30 PM EST PACE Home Care / [facility] Home Visit [facility] [place] [facility] [address] [place] [address] Ashley Eastman 03/15/2025 8:30 AM EST PACE Home Care / [facility] Home Visit [facility] [place] [facility] [address] [place] [phone] Marysol Diaz 03/15/2025 12:00 PM EST PACE Home Care / [facility] Home Visit [facility] [place] [facility] [address] [place] [phone] Natali Sanford 03/15/2025 5:30 PM EST PACE Home Care / [facility] Home Visit [facility] [place] [facility] [address] [place] [phone] Marysol Diaz 03/16/2025 8:30 AM EST PACE Home Care / [facility] Home Visit [facility] [place] [facility] [address] [place] [phone] Marysol Diaz 03/16/2025 12:00 PM EST PACE Home Care / [facility] Home Visit [facility] [place] [facility] [address] [place] [phone] Natali Sanford 03/16/2025 4:30 PM EST PACE Home Care / [facility] Home Visit [facility] [place] [facility] [address] [place] [phone] Marysol Diaz 03/16/2025 5:30 PM EST PACE Home Care / [facility] Home Visit [facility] [place] [facility] [address] [place] [phone] Marysol Diaz 03/17/2025 8:30 AM EST PACE Home Care / [facility] Visit [facility] [place] [facility] [address] [place] [address] Carmen Hartmann 03/17/2025 4:30 PM EST PACE Home Care / [facility] Home Visit [facility] [place] [facility] [address] [place] [phone] Ashley Eastman 03/18/2025 8:30 AM EST PACE Home Care / P[facility] Home Visit [facility] [place] [facility] [address] [place] [phone] Carmen Hartmann 03/18/2025 11:00 AM EST [facility] [address] [place] [phone] Michelle Castillo MD [address] [place] [phone] Brigette East LPN 03/18/2025 4:30 PM EST PACE Home Care / [facility] Visit [facility] [place] [facility] [address] [place] [phone] Ashley Eastman 03/19/2025 8:30 AM EST PACE Home Care / [facility] Home Visit [facility] [place] [facility] [address] [place] [phone] Carmen Hartmann 03/19/2025 4:30 PM EST PACE Home Care / [facility] Visit [facility] [place] [facility] [address] [place] [phone] Ashley Eastman 03/20/2025 8:30 AM EST PACE Home Care / [facility] Visit [facility] [place] [facility] [address] [place] [phone] Carmen Hartmann 03/20/2025 9:00 AM EST [facility] Att[facility] [place] [facility] [address] [place] [address] 03/20/2025 4:30 PM EST PACE Home Care / [facility] Visit [facility] [place] [facility] [address] [place] [phone] Ashley Eastman 03/21/2025 8:00 AM EST PACE Home Care / [facility] Visit [facility] [address] [place] [phone] Carmen Hartmann 03/21/2025 9:30 AM EST PACE Home Care / P[facility] Visit [facility] [address] [place] [phone] Ralph Loyola 03/21/2025 4:30 PM EST PACE Home Care / [facility] Visit [facility] [place] [facility] [address] [place] [phone] Ashley Eastman 03/22/2025 12:00 PM EST PACE Home Care / [facility] Visit [facility] [address] [place] [phone] Dena Chavez 03/23/2025 12:00 PM EST PACE Home Care / [facility] Home Visit [facility] [place] [facility] [address] [place] [phone] Dena Chavez 03/24/2025 8:30 AM EST PACE Home Care / [facility] Home Visit [facility] [place] [facility] [address] [place] [phone] Carmen Hartmann 03/24/2025 9:45 AM EST Appointment [facility] [address] [place] [address] Lakia Hou, CCC-BOILER/CHILLER TECHNICIAN 03/24/2025 4:30 PM EST PACE Home Care / PACE Home Visit [facility] [address] [place] [address] Ashley Eastman 03/25/2025 8:30 AM EST PACE Home Care / P[facility] [address] [place] [address] Carmen Hartmann 03/25/2025 4:30 PM EST PACE Home Care / P[facility] Visit [facility] [address] [place] [address] Ashley Eastman 03/26/2025 8:30 AM EST PACE Home Care / P[facility] Visit [facility] [address] [place] [phone] Carmen Hartmann 03/26/2025 4:30 PM EST PACE Home Care / [facility] [address] [place] [phone] Ashley Eastman 03/27/2025 8:30 AM EST PACE Home Care / [facility] [address] [place] [phone] Carmen Hartmann 03/27/2025 9:00 AM EST [facility] Att[facility] [address] [place] [address] 03/27/2025 2:40 PM EST Clinical Support [facility] [place] [address] [place] [address] 03/27/2025 4:30 PM EST PACE Home Care / [facility] [address] [place] [address] Ashley Eastman 03/28/2025 8:00 AM EST PACE Home Care / [facility] [address] [place] [phone] Carmen Hartmann 03/28/2025 10:00 AM EST Clinical [facility] [address] [place] [address] Bethany Mccabe RN 03/28/2025 4:30 PM EST PACE Home Care / [facility] [address] [place] [address] Ashley Eastman 03/29/2025 8:30 AM EST PACE Home Care / [facility] Visit [facility] [address] [place] [address] Marysol Diaz 03/29/2025 12:00 PM EST PACE Home Care / P[facility] Visit [facility] [address] [place] [address] Natali Sanford 03/29/2025 5:30 PM EST PACE Home Care / P[facility] [address] [place] [address] Marysol Diaz 03/30/2025 8:30 AM EST PACE Home Care / [facility] [address] [place] [address] Marysol Diaz 03/30/2025 12:00 PM EST PACE Home Care / [facility] [address] [place] [address] Natali Sanford 03/30/2025 4:30 PM EST PACE Home Care / [facility] [address] [place] [address] Marysol Diaz 03/30/2025 5:30 PM EST PACE Home Care / [facility] [place] [facility] [address] [place] [address] Marysol Diaz 03/31/2025 8:30 AM EST PACE Home Care / [facility] Visit [facility] [address] [place] [address] Carmen Hartmann 03/31/2025 4:30 PM EST PACE Home Care / [facility] [place] [facility] [address] [place] [address] Ashley Eastman 04/01/2025 8:30 AM EST PACE Home Care / [facility] [place] [facility] [address] [place] [address] Carmen Hartmann 04/01/2025 1:15 PM EST [facility] External Visit [facility] [address] [place] [address] 04/01/2025 4:30 PM EST PACE Home Care / [facility] [address] [place] [address] Ashley Eastman 04/02/2025 8:30 AM EST PACE Home Care / [facility] [place] [facility] [address] [place] [phone] Carmen Hartmann 04/02/2025 4:30 PM EST PACE Home Care / [facility] Visit [facility] [place] [facility] [address] [place] [address] Ashley Eastman 04/03/2025 8:30 AM EST PACE Home Care / [facility] [place] [facility] [address] [place] [address] Carmen Hartmann 04/03/2025 9:00 AM EST [facility] [facility] [place] [facility] [address] [place] [address] 04/03/2025 4:30 PM EST PACE Home Care / [facility] [place] [facility] [address] [place] [address] Ashley Eastman 04/04/2025 8:00 AM EST PACE Home Care / [facility] [place] [facility] [address] [place] [address] Carmen Hartmann 04/04/2025 9:30 AM EST P[facility] Home Care / [facility] [place] [facility] [address] [place] [address] Ralph Loyola 04/04/2025 4:30 PM EST PACE Home Care / [facility] [place] [facility] [address] [place] [address] Aslhey Eastman 04/05/2025 12:00 PM EST PACE Home Care / [facility] [place] [facility] [address] [place] [address] Dena Chavez 04/06/2025 12:00 PM EST PACE Home Care / [facility] Visit [facility] [place] [facility] [address] [place] [address] Dena Chavez 2025 8:30 AM EST P[facility] Home Care / [facility] [place] [facility] [address] [place] [address] Carmen Hartmann 2025 4:30 PM EST PACE Home Care / [facility] [place] [facility] [address] [place] [address] Ashley Eastman 04/08/2025 8:30 AM EST PACE Home Care / [facility] [place] [facility] [address] [place] [address] Carmen Hartmann 04/08/2025 4:30 PM EST PACE Home Care / [facility] [place] [facility] [address] [place] [address] Ashley Eastman 04/09/2025 8:30 AM EST PACE Home Care / [facility] [place] [facility] [address] [place] [address] Carmen Hartmann 04/09/2025 4:30 PM EST PACE Home Care / [facility] [place] [facility] [address] [place] [address] Ashley Eastman 04/10/2025 8:30 AM EST PACE Home Care / [facility] [place] [facility] [address] [place] [address] Carmen Hartmann 04/10/2025 9:00 AM EST [facility] Att[facility] [place] [facility] [address] [place] [address] 04/10/2025 4:30 PM EST P[facility] Home Care / [facility] [place] [facility] [address] [place] [phone] Ashley Eastman 04/11/2025 8:00 AM EST P[facility] Home Care / [facility] [place] [facility] [address] [place] [phone] Carmen Hartmann 04/11/2025 9:30 AM EST PACE Home Care / [facility] [place] [facility] [address] [place] [phone] Ralph Loyola 04/11/2025 4:30 PM EST PACE Home Care / [facility] [place] [facility] [address] [place] [phone] Ashley Eastman 04/12/2025 8:30 AM EST PACE Home Care / [facility] [place] [facility] [address] [place] [phone] Marysol Diaz 04/12/2025 12:00 PM EST PACE Home Care / [facility] [address] [place] [phone] Felymeghan Meghannasima 04/12/2025 5:30 PM EST [facility] [address] [place] [phone] Marysol Diaz 04/15/2025 11:00 AM EST [facility] [address] [place] [phone] Michelle Castillo MD [address] [place] [phone] Brigette East LPN 04/17/2025 9:00 AM EST P[facility] Attendance/Day Center [facility] [address] [place] [phone] 04/18/2025 10:00 AM EST Clinical Support [facility] [address] [place] [phone] Bethany Mccabe RN 04/24/2025 9:00 AM EST [facility] Attendance/[facility] [address] [place] [phone] 04/24/2025 11:30 AM EST [facility] [address] [address] 05/01/2025 9:00 AM EST P[facility] Attendance/Day Center [facility] [address] [place] [phone] 05/08/2025 9:00 AM EST [facility] Att[facility] [address] [place] [phone] 05/09/2025 10:00 AM EST [facility] [address] [phone] Bethany Mccabe RN 05/13/2025 11:00 AM EST Office Visit [address] [phone] Michelle Castillo MD [address] [phone] Brigette East LPN 05/15/2025 9:00 AM EST PACE Attendance/Day Center [facility] [address] [place] [phone] 05/22/2025 9:00 AM EST PACE Attendance/Day Center [facility] [address] [phone] 05/29/2025 9:00 AM EST P[facility] Attendance/Day Center [facility] [address] [phone] 05/30/2025 10:00 AM EST Clinical Support [address] [phone] Bethany Mccabe RN 06/05/2025 9:00 AM EST [facility] Attendance/Day Center [facility] Day [address] [phone] 06/10/2025 11:00 AM EST Office Visit [address] [phone] Michelle Castillo MD [address] [place] [phone] Brigette East LPN 06/12/2025 9:00 AM EST PACE Attendance/Day Center [facility] Day [address] [phone] 06/19/2025 9:00 AM EST PACE Attendance/Day Center [facility] Day [address] [phone] 06/20/2025 10:00 AM EST [facility] [address] [place] [address] Bethany Mccabe RN 06/26/2025 9:00 AM EDT [facility] [address] [place] [phone] 06/27/2025 1:20 PM EDT Office Visit Gastroenterology - [address] [place] [address] Analisa Perez, PE ELECTRICAL ENGINEER [address] [place] [address] 07/03/2025 9:00 AM EDT [facility] [address] [place] [phone] 07/10/2025 9:00 AM EDT [facility] Att[facility] [address] [place] [phone] 07/11/2025 10:00 AM EDT Clinical Support [facility] [address] [place] [phone] Bethany Mccabe RN 07/17/2025 9:00 AM EDT [facility] [address] [place] [phone] 07/17/2025 3:30 PM EDT [facility] External Visit [facility] [address] [phone] 07/24/2025 9:00 AM EDT P[facility] Attendance/Day Center [facility] Day [address] [phone] 07/31/2025 9:00 AM EDT [facility] Attendance/Day Center [facility] [address] [place] [phone] 08/01/2025 10:00 AM EDT Clinical Support [facility] [address] [place] [address] Bethany Mccabe RN 08/07/2025 9:00 AM EDT [facility] Att[facility] [facility] [place] [facility] [address] [place] [address] 08/14/2025 9:00 AM EDT [facility] [facility] [place] [facility] [address] [place] [address] 08/21/2025 9:00 AM EDT [facility] [facility] [place] [facility] [address] [place] [phone] 08/22/2025 10:00 AM EDT Clinical [place] [facility] [place] [facility] [address] [place] [phone] Bethany Mccabe RN 08/28/2025 9:00 AM EDT [facility] Att[facility] [facility] [place] [facility] [address] [place] [phone] 09/04/2025 9:00 AM EDT [facility] [facility] [place] [facility] [address] [place] [phone] 09/11/2025 9:00 AM EDT [facility] [facility] [place] [facility] [address] [place] [phone] 09/12/2025 10:00 AM EDT Clinical [facility] [place] [facility] [address] [place] [phone] Bethany Mccabe, RN 09/18/2025 9:00 AM EDT [facility] [facility] [place] [facility] [address] [place] [phone] 09/25/2025 9:00 AM EDT [facility] [facility] [place] [facility] [address] [place] [phone] 10/02/2025 9:00 AM EDT [facility] Att[facility] [address] [address] 10/03/2025 10:00 AM EDT Clinical Support [facility] [address] [phone] Bethany Mccabe RN 10/09/2025 9:00 AM EDT [facility] Day [address] [address] 10/24/2025 10:00 AM EDT Clinical Support [facility] [address] [phone] Bethany Mccabe RN 11/14/2025 10:00 AM EDT Clinical Support [facility] [address] [phone] Bethany Mccabe RN 12/05/2025 10:00 AM EDT Clinical Support [facility] [address] [phone] Bethany Mccabe RN 12/26/2025 10:00 AM EDT Clinical Support [facility] [address] [address] Bethany Mccabe, HEIDI 01/16/2026 10:00 AM EDT Clinical Support [facility] [address] [address] Bethany Mccabe RN 02/06/2026 10:00 AM EDT Clinical Support [facility] [address] [address] Bethany Mccabe, HEIDI 02/27/2026 10:00 AM EST Clinical Support [facility] [address] [phone] Bethany Mccabe, HEIDI documented as of this encounter Visit Diagnoses Not on filedocumented in this encounter Care Teams Phosphorus Processing Supervisor Relationship Specialty Start Date End Date Regulo Ivy NP [address] [place] [address] PCP - General PACE 06/07/24 documented as of this encounter
--- OUTSIDE RECORDS SUMMARY | 2025-02-07 08:00 | XMS_ITS | Encounter Summary ---
Author Organization [facility] Address [address] [place] [address] Care Team Providers Care Return To Factory Clerk Name Role Phone Regulo Ivy NP Primary Care Provider [phone] Encounter Details Date Type Department Care Team (Late st Contact Info) Description 02/07/2025 8:00 AM EDT PACE Home Care / PACE Home Visit [facility] [address] [place] [address] Carmen Hartmann Social History Tobacco [...] for your loved ones. For example, child and adolescent psychologist or elderly care for an older adult? [...] 02/10/2025 8:39 AM Naomy Pa RN * [place] Suicide Severity Rating Scale (Screener/Recent Self-Report) Question [...] [facility] [address] [place] [address] Carmen Hartmann 02/12/2025 4:30 PM EDT PACE Home Care / [facility] Home Visit [facility] [place] [facility] [address] [place] [address] Ashley Eastman 02/13/2025 8:30 AM EDT PACE Home Care / P[facility] Home Visit [facility] [place] [facility] [address] [place] [address] Carmen Hartmann 02/13/2025 9:00 AM EDT [facility] Attendance/[facility] [place] [facility] [address] [place] [address] 02/13/2025 4:30 PM EDT PACE Home Care / [facility] Home Visit [facility] [place] [facility] [address] [place] [phone] Ashley Eastman 02/14/2025 8:00 AM EDT PACE Home Care / [facility] Home Visit [facility] [place] [facility] [address] [place] [phone] Carmen Hartmann 02/14/2025 9:30 AM EDT PACE Home Care / [facility] Home Visit [facility] [place] [facility] [address] [place] [phone] Ralph Loyola 02/14/2025 4:30 PM EDT PACE Home Care / [facility] [place] [facility] [address] [place] [phone] Ashley Eastman 02/15/2025 8:30 AM EDT PACE Home Care / [place] Home Visit [facility] [place] [facility] [address] [place] [phone] Marysol Diaz 02/15/2025 12:00 PM EDT PACE Home Care / [place] Home Visit [facility] [place] [facility] [address] [place] [phone] Natali Sanford 02/15/2025 5:30 PM EDT PACE Home Care / [place] Home Visit [facility] [place] [facility] [address] [place] [address] Marysol Diaz 02/16/2025 8:30 AM EST PACE Home Care / [place] [facility] [place] [facility] [address] [place] [phone] [facility] Marysol 02/16/2025 12:00 PM EST PACE Home Care / [place] [facility] Visit [facility] [place] [facility] [address] [place] [phone] Natali Sanford 02/16/2025 4:30 PM EST PACE Home Care / [place] [facility] [place] [facility] [address] [place] [phone] [facility] Marysol 02/16/2025 5:30 PM EST PACE Home Care / [place] [facility] Visit [facility] [place] [facility] [address] [place] [phone] [facility] Marysol 02/17/2025 8:30 AM EST PACE Home Care / [place] [facility] [place] [facility] [address] [place] [phone] Carmen Hartmann 02/17/2025 11:00 AM EST Office Visit [facility] [place] [facility] [address] [place] [phone] Michelle Castillo MD [address] [place] [address] 02/17/2025 4:30 PM EST PACE Home Care / [place] Home [facility] [place] [facility] [address] [place] [phone] Ashley Eastman 02/18/2025 8:30 AM EST PACE Home Care / [place] Home [facility] [place] [facility] [address] [place] [phone] Carmen Hartmann 02/18/2025 11:00 AM EST Office Visit [facility] [place] [facility] [address] [place] [address] Michelle Castillo MD [address] [address] Brigette East LPN 02/18/2025 4:30 PM EST PACE Home Care / [place] Home Visit [facility] [place] [facility] [address] [place] [phone] Ashley Eastman 02/19/2025 8:30 AM EST PACE Home Care / [place] Home Visit [facility] [place] [facility] [address] [place] [phone] Carmen Hartmann 02/19/2025 4:30 PM EST PACE Home Care / [place] Home Visit [facility] [place] [facility] [address] [place] [phone] Ashley Eastman 02/20/2025 8:30 AM EST PACE Home Care / [place] Home Visit [facility] [place] [facility] [address] [place] [phone] Carmen Hartmann 02/20/2025 9:00 AM EST [facility] Att[place] [facility] [place] [facility] [address] [place] [address] 02/20/2025 4:30 PM EST PACE Home Care / [place] [facility] Visit [facility] [place] [facility] [address] [place] [phone] Ashley Eastman 02/21/2025 8:00 AM EST P[facility] Home Care / [place] [facility] [place] [facility] [address] [place] [phone] Carmen Hartmann 02/21/2025 9:30 AM EST PACE Home Care / [place] [facility] Visit [facility] [place] [facility] [address] [place] [address] Ralph Loyola 02/21/2025 4:30 PM EST PACE Home Care / [place] Home [facility] [place] [facility] [address] [place] [phone] Ashley Eastman 02/22/2025 12:00 PM EST PACE Home Care / [place] [facility] [place] [facility] [address] [place] [phone] Dena Chavez 02/23/2025 12:00 PM EST PACE Home Care / [place] Home Visit [facility] [place] [facility] [address] [place] [phone] Dena Chavez 02/24/2025 8:30 AM EST PACE Home Care / [place] Home Visit [facility] [place] [facility] [address] [place] [phone] Carmen Hartmann 02/24/2025 4:30 PM EST PACE Home Care / [place] Home Visit [facility] [place] [facility] [address] [place] [phone] Ashley Eastman 02/25/2025 8:30 AM EST PACE Home Care / [place] Home Visit [facility] [place] [facility] [address] [place] [phone] Carmen Hartmann 02/25/2025 4:30 PM EST PACE Home Care / [place] Home Visit [facility] [place] [facility] [address] [place] [phone] Ashley Eastman 02/26/2025 8:30 AM EST PACE Home Care / [place] Home Visit [facility] [place] [facility] [address] [place] [phone] Carmen Hartmann 02/26/2025 4:30 PM EST PACE Home Care / [facility] Visit [facility] [place] [facility] [address] [place] [address] Ashley Eastman 02/27/2025 8:30 AM EST PACE Home Care / [place] [facility] Visit [facility] [place] [facility] [address] [place] [address] Carmen Hartmann 02/27/2025 9:00 AM EST [facility] Att[facility] [place] [facility] [address] [place] [address] 02/27/2025 4:30 PM EST PACE Home Care / [place] [facility] [place] [facility] [address] [place] [phone] Ashley Eastman 02/28/2025 8:00 AM EST PACE Home Care / [place] Home Visit [facility] [place] [facility] [address] [place] [phone] Carmen Hartmann 02/28/2025 9:30 AM EST PACE Home Care / [place] [facility] Visit [facility] [place] [facility] [address] [place] [phone] Ralph Loyola 02/28/2025 4:30 PM EST PACE Home Care / [place] Home Visit [facility] [place] [facility] [address] [place] [phone] Ashley Eastman 03/01/2025 8:30 AM EST PACE Home Care / [facility] [facility] Visit [facility] [place] [facility] [address] [place] [phone] Marysol Diaz 03/01/2025 12:00 PM EST PACE Home Care / [place] Home Visit [facility] [place] [facility] [address] [place] [phone] Natali Sanford 03/01/2025 5:30 PM EST PACE Home Care / [place] Home Visit [facility] [place] [facility] [address] [place] [phone] Marysol Diaz 03/02/2025 8:30 AM EST PACE Home Care / [place] Home Visit [facility] [place] [facility] [address] [place] [phone] Marysol Diaz 03/02/2025 12:00 PM EST PACE Home Care / [place] Home Visit [facility] [place] [facility] [address] [place] [phone] Natali Sanford 03/02/2025 4:30 PM EST PACE Home Care / [place] [facility] Visit [facility] [place] [facility] [address] [place] [phone] Marysol Diaz 03/02/2025 5:30 PM EST PACE Home Care / [place] Home Visit [facility] [place] [facility] [address] [place] [phone] Marysol Diaz 03/03/2025 8:30 AM EST PACE Home Care / [place] [facility] [place] [facility] [address] [place] [phone] Carmen Hartmann 03/03/2025 4:30 PM EST PACE Home Care / [place] [facility] [place] [facility] [address] [place] [phone] Ashley Eastman 03/04/2025 8:30 AM EST PACE Home Care / [place] Home Visit [facility] [place] [facility] [address] [place] [phone] Carmen Hartmann 03/04/2025 4:30 PM EST PACE Home Care / [place] [facility] Visit [facility] [place] [facility] [address] [place] [phone] Ashley Eastman 03/05/2025 8:30 AM EST PACE Home Care / [facility] Home Visit [facility] [place] [facility] [address] [place] [address] Carmen Hartmann 03/05/2025 4:30 PM EST PACE Home Care / [facility] Home Visit [facility] [place] [facility] [address] [place] [address] Ashley Eastman 03/06/2025 8:30 AM EST PACE Home Care / P[facility] Home Visit [facility] [place] [facility] [address] [place] [phone] Carmen Hartmann 03/06/2025 9:00 AM EST [facility] Attendance[facility] [place] [facility] [address] [place] [address] 03/06/2025 4:30 PM EST PACE Home Care / [facility] Home Visit [facility] [place] [facility] [address] [place] [phone] Ashley Eastman 03/07/2025 Lab [facility] [place] Occupational Therapy [address] [place] [phone] Clemencia Napier, OT Schizophrenia in partial remission with history of multiple episodes (CMS/HCC V24, CMS/HCC V28) 03/07/2025 8:00 AM EST PACE Home Care / PACE Home Visit [facility] [place] [facility] [address] [place] [address] Carmen Hartmann 03/07/2025 9:00 AM EST Clinical Support [facility] [place] [facility] [address] [place] [address] Bethany Mccabe, HEIDI 03/07/2025 9:30 AM EST PACE Home Care / [facility] Home Visit [facility] [place] [facility] [address] [place] [phone] Ralph Loyola 03/07/2025 4:30 PM EST PACE Home Care / [facility] Home Visit [facility] [place] [facility] [address] [place] [address] Ashley Eastman 03/08/2025 12:00 PM EST PACE Home Care / [place] Home Visit [facility] [place] [facility] [address] [place] [phone] Dena Chavez 03/09/2025 12:00 PM EST PACE Home Care / [place] Home Visit [facility] [place] [facility] [address] [place] [phone] Dena Chavez 03/10/2025 8:30 AM EST PACE Home Care / [place] Home Visit [facility] [place] [facility] [address] [place] [phone] Carmen Hartmann 03/10/2025 4:30 PM EST PACE Home Care / [place] Home Visit [facility] [place] [facility] [address] [place] [phone] Ashley Eastman 03/11/2025 8:30 AM EST PACE Home Care / [place] Home Visit [facility] [place] [facility] [address] [place] [phone] Carmen Hartmann 03/11/2025 4:30 PM EST PACE Home Care / [place] [facility] Visit [facility] [place] [facility] [address] [place] [phone] Ashley Eastman 03/12/2025 8:30 AM EST PACE Home Care / [place] Home Visit [facility] [place] [facility] [address] [place] [phone] Carmen Hartmann 03/12/2025 4:30 PM EST PACE Home Care / [place] Home Visit [facility] [place] [facility] [address] [place] [phone] Ashley Eastman 03/13/2025 8:30 AM EST PACE Home Care / [facility] Home Visit [facility] [place] [facility] [address] [place] [address] Carmen Hartmann 03/13/2025 9:00 AM EST [facility] Att[place] [facility] [place] [facility] [facility] [address] [place] [address] 03/13/2025 4:30 PM EST PACE Home Care / [place] [facility] [place] [facility] [address] [place] [address] Ashley Eastman 03/14/2025 8:00 AM EST PACE Home Care / [place] [facility] Visit [facility] [place] [facility] [address] [place] [phone] Carmen Hartmann 03/14/2025 9:30 AM EST PACE Home Care / [place] [facility] Visit [facility] [place] [facility] [address] [place] [address] Ralph Loyola 03/14/2025 4:30 PM EST PACE Home Care / [place] [facility] Visit [facility] [place] [facility] [address] [place] [phone] Ashley Eastman 03/15/2025 8:30 AM EST PACE Home Care / [place] [facility] Visit [facility] [place] [facility] [address] [place] [phone] Marysol iDaz 03/15/2025 12:00 PM EST PACE Home Care / [place] [facility] [place] [facility] [address] [place] [phone] Natali Sanford 03/15/2025 5:30 PM EST PACE Home Care / [place] [facility] Visit [facility] [place] [facility] [address] [place] [phone] Marysol Diaz 03/16/2025 8:30 AM EST PACE Home Care / [facility] [facility] Visit [facility] [place] [facility] [address] [place] [phone] Marysol Diaz 03/16/2025 12:00 PM EST PACE Home Care / [place] [facility] [place] [facility] [address] [place] [phone] Natali Sanford 03/16/2025 4:30 PM EST PACE Home Care / [place] [facility] Visit [facility] [place] [facility] [address] [place] [phone] Marysol Diaz 03/16/2025 5:30 PM EST PACE Home Care / [facility] [facility] Visit [facility] [place] [facility] [address] [place] [phone] Marysol Diaz 03/17/2025 8:30 AM EST PACE Home Care / [facility] [place] [facility] [address] [place] [phone] Carmen Hartmann 03/17/2025 4:30 PM EST PACE Home Care / [facility] [place] [facility] [address] [place] [phone] Ashley Eastman 03/18/2025 8:30 AM EST PACE Home Care / [facility] [place] [facility] [address] [place] [phone] Carmen Hartmann 03/18/2025 11:00 AM EST [facility] Visit [facility] [place] [facility] [address] [place] [phone] Michelle Castillo MD [address] [place] [address] Brigette East LPN 03/18/2025 4:30 PM EST PACE Home Care / [facility] [place] [facility] [address] [place] [phone] Ashley Eastman 03/19/2025 8:30 AM EST PACE Home Care / [facility] Visit [facility] [place] [facility] [address] [place] [address] Carmen Hartmann 03/19/2025 4:30 PM EST PACE Home Care / [facility] [place] [facility] [address] [place] [address] Ashley Eastman 03/20/2025 8:30 AM EST PACE Home Care / [facility] [facility] [place] [facility] [address] [place] [address] Carmen Hartmann 03/20/2025 9:00 AM EST [facility] [facility] [place] [facility] [address] [place] [address] 03/20/2025 4:30 PM EST PACE Home Care / [place] [facility] [place] [facility] [address] [place] [address] Ashley Eastman 03/21/2025 8:00 AM EST PACE Home Care / [facility] [place] [facility] [address] [place] [phone] Carmen Hartmann 03/21/2025 9:30 AM EST PACE Home Care / [facility] [place] [facility] [address] [place] [address] Ralph Loyola 03/21/2025 4:30 PM EST PACE Home Care / [facility] [facility] [place] [facility] [address] [place] [phone] Ashley Eastman 03/22/2025 12:00 PM EST PACE Home Care / [facility] [place] [facility] [address] [place] [phone] Dena Chavez 03/23/2025 12:00 PM EST PACE Home Care / [facility] [place] [facility] [address] [place] [phone] Dena Chavez 03/24/2025 8:30 AM EST PACE Home Care / [facility] [facility] [place] [facility] [address] [place] [phone] Carmen Hartmann 03/24/2025 9:45 AM EST Appointment [facility] [address] [place] [address] Lakia Hou, [facility] INSTRUCTOR 03/24/2025 4:30 PM EST PACE Home Care / [place] [facility] [place] [facility] [address] [place] [phone] Ashley Eastman 03/25/2025 8:30 AM EST PACE Home Care / [facility] Visit [facility] [place] [facility] [address] [place] [phone] Carmen Hartmann 03/25/2025 4:30 PM EST PACE Home Care / [facility] Visit [facility] [place] [facility] [address] [place] [phone] Ashley Eastman 03/26/2025 8:30 AM EST PACE Home Care / [facility] Visit [facility] [place] [facility] [address] [place] [phone] Carmen Hartmann 03/26/2025 4:30 PM EST PACE Home Care / [facility] Visit [facility] [place] [facility] [address] [place] [phone] Ashley Eastman 03/27/2025 8:30 AM EST PACE Home Care / [facility] [facility] Visit [facility] [place] [facility] [address] [place] [phone] Carmen Hartmann 03/27/2025 9:00 AM EST [facility] Attendance[facility] [place] [facility] [address] [place] [address] 03/27/2025 2:40 PM EST Clinical Support [facility] [place] [address] [place] [address] 03/27/2025 4:30 PM EST PACE Home Care / [facility] Visit [facility] [address] [place] [address] Ashley Eastman 03/28/2025 8:00 AM EST PACE Home Care / [facility] Visit [facility] [address] [place] [address] Carmen Hartmann 03/28/2025 10:00 AM EST Clinical Support [facility] [place] [facility] [address] [place] [address] Bethany Mccabe RN 03/28/2025 4:30 PM EST PACE Home Care / [facility] Visit [facility] [address] [place] [address] Ashley Eastman 03/29/2025 8:30 AM EST PACE Home Care / [facility] Visit [facility] [address] [place] [phone] Marysol Diaz 03/29/2025 12:00 PM EST PACE Home Care / [facility] [address] [place] [address] Natali Sanford 03/29/2025 5:30 PM EST PACE Home Care / [facility] [place] [facility] [address] [place] [address] Marysol Diaz 03/30/2025 8:30 AM EST PACE Home Care / [facility] Visit [facility] [place] [facility] [address] [place] [phone] Marysol Diaz 03/30/2025 12:00 PM EST PACE Home Care / [facility] Visit [facility] [place] [facility] [address] [place] [address] Natali Sanford 03/30/2025 4:30 PM EST PACE Home Care / [facility] [place] [facility] [address] [place] [address] Marysol Diaz 03/30/2025 5:30 PM EST PACE Home Care / [facility] [place] [facility] [address] [place] [phone] Marysol Diaz 03/31/2025 8:30 AM EST PACE Home Care / [facility] [place] [facility] [address] [place] [phone] Carmen Hartmann 03/31/2025 4:30 PM EST PACE Home Care / [facility] [place] [facility] [address] [place] [phone] Ashley Eastman 04/01/2025 8:30 AM EST PACE Home Care / [facility] [place] [facility] [address] [place] [phone] Carmen Hartmann 04/01/2025 1:15 PM EST [facility] Visit [facility] [place] [address] [place] [address] 04/01/2025 4:30 PM EST PACE Home Care / [facility] [facility] [place] [facility] [address] [place] [phone] Ashley Eastman 04/02/2025 8:30 AM EST PACE Home Care / [facility] [facility] [place] [facility] [address] [place] [phone] Carmen Hartmann 04/02/2025 4:30 PM EST PACE Home Care / [facility] [facility] [place] [facility] [address] [place] [address] Ashley Eastman 04/03/2025 8:30 AM EST PACE Home Care / [facility] [facility] [place] [facility] [address] [place] [address] Carmen Hartmann 04/03/2025 9:00 AM EST [facility] [facility] [place] [facility] [address] [place] [address] 04/03/2025 4:30 PM EST PACE Home Care / [place] [facility] [place] [facility] [address] [place] [address] Ashley Eastman 04/04/2025 8:00 AM EST PACE Home Care / [facility] [facility] [place] [facility] [address] [place] [address] Carmen Hartmann 04/04/2025 9:30 AM EST P[facility] Home Care / [facility] [place] [facility] [address] [place] [address] Ralph Loyola 04/04/2025 4:30 PM EST P[facility] Home Care / [facility] [place] [facility] [address] [place] [phone] Ashley Eastman 04/05/2025 12:00 PM EST P[facility] Home Care / [facility] [place] [facility] [address] [place] [phone] Dena Chavez 04/06/2025 12:00 PM EST PACE Home Care / [facility] [place] [facility] [address] [place] [phone] Dena Chavez 2025 8:30 AM EST PACE Home Care / [facility] Visit [facility] [place] [facility] [address] [place] [address] Carmen Hartmann 2025 4:30 PM EST PACE Home Care / [facility] [address] [place] [address] Ashley Eastman 04/08/2025 8:30 AM EST PACE Home Care / [facility] Visit [facility] [place] [facility] [address] [place] [address] Carmen Hartmann 04/08/2025 4:30 PM EST PACE Home Care / [facility] Visit [facility] [place] [facility] [address] [place] [address] Ashley Eastman 04/09/2025 8:30 AM EST PACE Home Care / [facility] Visit [facility] [place] [facility] [address] [place] [phone] Carmen Hartmann 04/09/2025 4:30 PM EST PACE Home Care / [facility] [address] [place] [address] Ashley Eastman 04/10/2025 8:30 AM EST PACE Home Care / [facility] [place] [facility] [address] [place] [address] Carmen Hartmann 04/10/2025 9:00 AM EST [facility] Att[facility] [facility] [place] [facility] [address] [place] [address] 04/10/2025 4:30 PM EST PACE Home Care / [facility] [place] [facility] [address] [place] [address] Ashley Eastman 04/11/2025 8:00 AM EST P[facility] Home Care / [facility] [place] [facility] [address] [place] [address] Carmen Hartmann 04/11/2025 9:30 AM EST PACE Home Care / [facility] [address] [place] [phone] Ralph Loyola 04/11/2025 4:30 PM EST PACE Home Care / [facility] Visit [facility] [address] [place] [phone] Ashley [place] 04/12/2025 8:30 AM EST [facility] / [facility] Home Visit Marsha ABRAMS [facility] [address] [place] [phone] Marysol Diaz 04/12/2025 12:00 PM EST [facility] / [facility] Home Visit Marsha ABRAMS [facility] [address] [place] [phone] Natali Sanford 04/12/2025 5:30 PM EST [facility] / [facility] Home Visit Marsha ABRAMS [facility] [address] [place] [phone] Marysol Diaz 04/15/2025 11:00 AM EST Office Visit [facility] [place] [facility] [address] [place] [phone] Michelle Castillo MD [address] [place] [phone] Brigette East LPN 04/17/2025 9:00 AM EST [facility] Attendance/[facility] [place] [facility] [address] [place] [address] 04/18/2025 10:00 AM EST Clinical Support [facility] [place] [facility] [address] [place] [phone] Bethany Mccabe RN 04/24/2025 9:00 AM EST [facility] Attendance/[facility] [place] [facility] [address] [place] [phone] 04/24/2025 11:30 AM EST Clinical Support [facility] [address] [phone] 05/01/2025 9:00 AM EST [facility] Att[facility] Day [address] [phone] 05/08/2025 9:00 AM EST [facility] Attend[facility] Day Center [address] [place] [phone] 05/09/2025 10:00 AM EST Clinical Support [facility] PACE [address] [phone] Bethany Mccabe RN 05/13/2025 11:00 AM EST Office Visit [facility] PACE [address] [phone] Michelle Castillo MD [address] [place] [phone] Brigette East LPN 05/15/2025 9:00 AM EST [facility] Attend[facility] Day [address] [phone] 05/22/2025 9:00 AM EST [facility] Attendance/[facility] [place] [facility] [address] [phone] 05/29/2025 9:00 AM EST [facility] Attendance[facility] Day Center [address] [place] [phone] 05/30/2025 10:00 AM EST Clinical Support [facility] PACE [address] [phone] Bethany Mccabe RN 06/05/2025 9:00 AM EST [facility] Attendance[facility] P[facility] Day [address] [phone] 06/10/2025 11:00 AM EST Office Visit [address] [phone] Michelle Castillo MD [address] [phone] Brigette East LPN 06/12/2025 9:00 AM EST P[facility] Attendance/Day Center [facility] Day [address] [phone] 06/19/2025 9:00 AM EST P[facility] Attendance/Day Center [facility] Day [address] [phone] 06/20/2025 10:00 AM EST Clinical Support [address] [phone] Bethany Mccabe RN 06/26/2025 9:00 AM EDT [facility] Attendance/Day Center [facility] Day [address] [phone] 06/27/2025 1:20 PM EDT Office Visit Gastroenterology - [address] [phone] Analisa Perez, ALONSO [address] [place] [address] 07/03/2025 9:00 AM EDT [facility] Attendance/Day Center [facility] Day [address] [phone] 07/10/2025 9:00 AM EDT PACE Attendance/Day Center [facility] P[facility] Day [address] [phone] 07/11/2025 10:00 AM EDT Clinical Support [facility] PACE [address] [phone] Bethany Mccabe RN 07/17/2025 9:00 AM EDT [facility] Attendance[facility] [place] [facility] [address] [place] [phone] 07/17/2025 3:30 PM EDT PACE External Visit Marsha ABRAMS [address] [phone] 07/24/2025 9:00 AM EDT [facility] Att[facility] [facility] [address] [place] [phone] 07/31/2025 9:00 AM EDT [facility] Attendance/[place] aMrsha ABRAMS [place] [facility] [address] [place] [phone] 08/01/2025 10:00 AM EDT Clinical Support [place] [facility] [place] [facility] [address] [place] [phone] Bethany Mccabe RN 08/07/2025 9:00 AM EDT [facility] Att[facility] [facility] [address] [place] [phone] 08/14/2025 9:00 AM EDT [facility] Attendance[facility]BRAMS [place] [facility] [address] [place] [phone] 08/21/2025 9:00 AM EDT [facility] Attendance[facility]BRAMS [place] [facility] [address] [place] [phone] 08/22/2025 10:00 AM EDT Clinical Support [place] [facility] [place] [facility] [address] [place] [phone] Bethany Mccabe RN 08/28/2025 9:00 AM EDT [facility] Att[facility]ance[facility] [facility] [address] [place] [phone] 09/04/2025 9:00 AM EDT [facility] [facility] [address] [place] [phone] 09/11/2025 9:00 AM EDT [facility] Att[facility]ance[facility]BR[place] [facility] [address] [place] [phone] 09/12/2025 10:00 AM EDT Clinical Support [place] [place] [facility] [address] [place] [phone] Bethany Mccabe, HEIDI 09/18/2025 9:00 AM EDT [facility] Att[facility] [place] [facility] [address] [place] [phone] 09/25/2025 9:00 AM EDT [facility] [place] [facility] [address] [place] [phone] 10/02/2025 9:00 AM EDT [facility] [place] [facility] [address] [place] [phone] 10/03/2025 10:00 AM EDT Clinical Support Marsha ABRAMS [place] [facility] [address] [phone] Bethany Mccabe RN 10/09/2025 9:00 AM EDT [facility] Att[facility] [facility] [address] [place] [phone] 10/24/2025 10:00 AM EDT Clinical Support [facility] [address] [place] [phone] Bethany Mccabe, HEIDI 11/14/2025 10:00 AM EDT Clinical Support [facility] [address] [place] [phone] Bethany Mccabe, RN 12/05/2025 10:00 AM EDT Clinical Support [facility] [place] [facility] [address] [place] [phone] Bethany Mccabe, RN 12/26/2025 10:00 AM EDT Clinical Support [facility] [place] [facility] [address] [place] [phone] Bethany Mccabe RN 01/16/2026 10:00 AM EDT Clinical Support [address] [phone] Bethany Mccabe RN 02/06/2026 10:00 AM EDT Clinical Support [address] [phone] Bethany Mccabe RN 02/27/2026 10:00 AM EST Clinical Support [address] [phone] Bethany Mccabe RN documented as of this encounter Visit Diagnoses Not on filedocumented in this encounter Care Teams Return To Factory Clerk Relationship Specialty Start Date End Date Regulo Ivy NP [address] [place] [phone] PCP - General P[facility] 06/07/24 documented as of this encounter
--- OUTSIDE RECORDS SUMMARY | 2025-02-07 09:30 | XMS_ITS | Encounter Summary ---
Author Organization [facility] Address [address] [place] [address] Care Team Providers Care Solar [employer] Advisor Name Role Phone Regulo Ivy NP Primary Care Provider [phone] Encounter Details Date Type Department Care Team (Late st Contact Info) Description 02/07/2025 9:30 AM EDT PACE Home Care / [facility] Home Visit [facility] [place] [facility] [address] [place] [address] Ralph Loyola Social History Tobacco Use Types Packs/Day Years [...] for your loved ones. For example, child care sitter or elderly care for an older adult? [...] 02/10/2025 8:39 AM Naomy Pa RN * [place] Suicide Severity Rating Scale (Screener/Recent Self-Report) Question [...] [facility] [address] [place] [address] Carmen Hartmann 02/12/2025 4:30 PM EDT PACE Home Care / [facility] Home Visit [facility] [place] [facility] [address] [place] [address] Ashley Eastman 02/13/2025 8:30 AM EDT PACE Home Care / P[facility] Home Visit [facility] [place] [facility] [address] [place] [address] Carmen Hartmann 02/13/2025 9:00 AM EDT PACE Attendance/[facility] [place] [facility] [address] [place] [address] 02/13/2025 4:30 PM EDT PACE Home Care / [facility] Home Visit [facility] [place] [facility] [address] [place] [phone] Ashley Eastman 02/14/2025 8:00 AM EDT PACE Home Care / [facility] Home Visit [facility] [place] [facility] [address] [place] [phone] Carmen Hartmann 02/14/2025 9:30 AM EDT PACE Home Care / [facility] Home Visit [facility] [place] [facility] [address] [place] [phone] Ralph Loyola 02/14/2025 4:30 PM EDT PACE Home Care / [facility] [place] [facility] [address] [place] [phone] Ashley Eastman 02/15/2025 8:30 AM EDT PACE Home Care / [facility] [facility] Visit [facility] [place] [facility] [address] [place] [phone] Marysol Diaz 02/15/2025 12:00 PM EDT PACE Home Care / [place] Home Visit [facility] [place] [facility] [address] [place] [phone] Natali Sanford 02/15/2025 5:30 PM EDT PACE Home Care / [facility] Home Visit [facility] [place] [facility] [address] [place] [address] Marysol Diaz 02/16/2025 8:30 AM EST PACE Home Care / [place] [facility] [place] [facility] [address] [place] [phone] [facility] Marysol 02/16/2025 12:00 PM EST PACE Home Care / [facility] Home Visit [facility] [place] [facility] [address] [place] [phone] Natali Sanford 02/16/2025 4:30 PM EST PACE Home Care / [place] [facility] [place] [facility] [address] [place] [phone] [facility] Marsyol 02/16/2025 5:30 PM EST PACE Home Care / [place] [facility] [place] [facility] [address] [place] [phone] [facility] Marysol 02/17/2025 8:30 AM EST PACE Home Care / [place] [facility] [place] [facility] [address] [place] [phone] Carmen Hartmann 02/17/2025 11:00 AM EST [facility] Visit [facility] [place] [facility] [address] [place] [phone] Michelle Castillo MD [address] [place] [address] 02/17/2025 4:30 PM EST PACE Home Care / [facility] Home [facility] [place] [facility] [address] [place] [phone] Ashley Eastman 02/18/2025 8:30 AM EST PACE Home Care / [place] Home Visit [facility] [place] [facility] [address] [place] [phone] Carmen Hartmann 02/18/2025 11:00 AM EST Office Visit [facility] [place] [facility] [address] [place] [address] Michelle Castillo MD [address] [address] Brigette East LPN 02/18/2025 4:30 PM EST PACE Home Care / [place] Home Visit [facility] [place] [facility] [address] [place] [phone] Ashley Eastman 02/19/2025 8:30 AM EST PACE Home Care / [facility] Home Visit [facility] [place] [facility] [address] [place] [phone] Carmen Hartmann 02/19/2025 4:30 PM EST PACE Home Care / [place] Home Visit [facility] [place] [facility] [address] [place] [phone] Ashley Eastman 02/20/2025 8:30 AM EST PACE Home Care / [place] Home Visit [facility] [place] [facility] [address] [place] [phone] Carmen Hartmann 02/20/2025 9:00 AM EST [facility] Att[place] [facility] [place] [facility] [address] [place] [address] 02/20/2025 4:30 PM EST PACE Home Care / [place] [facility] [place] [facility] [address] [place] [phone] Ashley Eastman 02/21/2025 8:00 AM EST PACE Home Care / [place] [facility] [place] [facility] [address] [place] [phone] Carmen Hartmann 02/21/2025 9:30 AM EST PACE Home Care / [place] [facility] [place] [facility] [address] [place] [address] Ralph Loyola 02/21/2025 4:30 PM EST PACE Home Care / [place] [facility] [place] [facility] [address] [place] [phone] Ashley Eastman 02/22/2025 12:00 PM EST PACE Home Care / [place] [facility] Visit [facility] [place] [facility] [address] [place] [phone] Dena Chavez 02/23/2025 12:00 PM EST PACE Home Care / [place] [facility] Visit [facility] [place] [facility] [address] [place] [phone] Dena Chavez 02/24/2025 8:30 AM EST PACE Home Care / [place] [facility] [place] [facility] [place] [facility] [address] [place] [phone] Carmen Hartmann 02/24/2025 4:30 PM EST PACE Home Care / [place] [facility] [place] [facility] [address] [place] [phone] Ashley Eastman 02/25/2025 8:30 AM EST PACE Home Care / [place] Home Visit [facility] [place] [facility] [address] [place] [phone] Carmen Hartmann 02/25/2025 4:30 PM EST PACE Home Care / [place] [facility] [place] [facility] [address] [place] [phone] Ashley Eastman 02/26/2025 8:30 AM EST PACE Home Care / [place] Home Visit [facility] [place] [facility] [address] [place] [phone] Carmen Hartmann 02/26/2025 4:30 PM EST PACE Home Care / [facility] [place] [facility] [address] [place] [address] Ashley Eastman 02/27/2025 8:30 AM EST PACE Home Care / [place] [facility] Visit [facility] [place] [facility] [address] [place] [address] Carmen Hartmann 02/27/2025 9:00 AM EST [facility] Att[facility] [place] [facility] [address] [place] [address] 02/27/2025 4:30 PM EST PACE Home Care / [place] [facility] [place] [facility] [address] [place] [phone] Ashley Eastman 02/28/2025 8:00 AM EST PACE Home Care / [place] Home Visit [facility] [place] [facility] [address] [place] [phone] Carmen Hartmann 02/28/2025 9:30 AM EST PACE Home Care / [place] Home Visit [facility] [place] [facility] [address] [place] [phone] Ralph Loyola 02/28/2025 4:30 PM EST PACE Home Care / [place] Home Visit [facility] [place] [facility] [address] [place] [phone] Ashley Eastman 03/01/2025 8:30 AM EST PACE Home Care / [place] Home Visit [facility] [place] [facility] [address] [place] [phone] Marysol Diaz 03/01/2025 12:00 PM EST PACE Home Care / [place] Home Visit [facility] [place] [facility] [address] [place] [phone] Natali Sanford 03/01/2025 5:30 PM EST PACE Home Care / [place] Home Visit [facility] [place] [facility] [address] [place] [phone] Marysol Diaz 03/02/2025 8:30 AM EST PACE Home Care / [place] Home Visit [facility] [place] [facility] [address] [place] [phone] Marysol Diaz 03/02/2025 12:00 PM EST PACE Home Care / [place] [facility] Visit [facility] [place] [facility] [address] [place] [phone] Natali Sanford 03/02/2025 4:30 PM EST PACE Home Care / [place] [facility] Visit [facility] [place] [facility] [address] [place] [phone] Marysol Diaz 03/02/2025 5:30 PM EST PACE Home Care / [place] [facility] [place] [facility] [address] [place] [phone] Marysol Diaz 03/03/2025 8:30 AM EST PACE Home Care / [place] [facility] Visit [facility] [place] [facility] [address] [place] [phone] Carmen Hartmann 03/03/2025 4:30 PM EST PACE Home Care / [place] Home Visit [facility] [place] [facility] [address] [place] [phone] Ashley Eastman 03/04/2025 8:30 AM EST PACE Home Care / [place] [facility] Visit [facility] [place] [facility] [address] [place] [phone] Carmen Hartmann 03/04/2025 4:30 PM EST PACE Home Care / [place] Home Visit [facility] [place] [facility] [address] [place] [phone] Ashley Eastman 03/05/2025 8:30 AM EST PACE Home Care / [facility] Home Visit [facility] [place] [facility] [address] [place] [address] Carmen Hartmann 03/05/2025 4:30 PM EST PACE Home Care / P[facility] Home Visit [facility] [place] [facility] [address] [place] [address] Ashley Eastman 03/06/2025 8:30 AM EST PACE Home Care / P[facility] Home Visit [facility] [place] [facility] [address] [place] [phone] Carmen Hartmann 03/06/2025 9:00 AM EST [facility] Attendance[facility] [place] [facility] [address] [place] [address] 03/06/2025 4:30 PM EST PACE Home Care / P[facility] Home Visit [facility] [place] [facility] [address] [place] [phone] Ashley Eastman 03/07/2025 Lab [facility] [place] Occupational Therapy [address] [place] [phone] Clemencia Napier, OT Schizophrenia in partial remission with history of multiple episodes (CMS/HCC V24, CMS/HCC V28) 03/07/2025 8:00 AM EST PACE Home Care / P[facility] Home Visit [facility] [place] [facility] [address] [place] [address] Carmen Hartmann 03/07/2025 9:00 AM EST Clinical Support [facility] [place] [facility] [address] [place] [address] Bethany Mccabe, HEIDI 03/07/2025 9:30 AM EST PACE Home Care / P[facility] Home Visit [facility] [place] [facility] [address] [place] [phone] Ralph Loyola 03/07/2025 4:30 PM EST PACE Home Care / [facility] Home Visit [facility] [place] [facility] [address] [place] [address] Ashley Eastman 03/08/2025 12:00 PM EST PACE Home Care / [place] Home Visit [facility] [place] [facility] [address] [place] [phone] Dena Chavez 03/09/2025 12:00 PM EST PACE Home Care / [facility] Home Visit [facility] [place] [facility] [address] [place] [phone] Dena Chavez 03/10/2025 8:30 AM EST PACE Home Care / [facility] Home Visit [facility] [place] [facility] [address] [place] [phone] Carmen Hartmann 03/10/2025 4:30 PM EST PACE Home Care / [place] Home Visit [facility] [place] [facility] [address] [place] [phone] Ashley Eastman 03/11/2025 8:30 AM EST PACE Home Care / [place] Home Visit [facility] [place] [facility] [address] [place] [phone] Carmen Hartmann 03/11/2025 4:30 PM EST PACE Home Care / [place] Home Visit [facility] [place] [facility] [address] [place] [phone] Ashley Eastman 03/12/2025 8:30 AM EST PACE Home Care / [facility] [facility] Visit [facility] [place] [facility] [address] [place] [phone] Carmen Hartmann 03/12/2025 4:30 PM EST PACE Home Care / [place] [facility] Visit [facility] [place] [facility] [address] [place] [phone] Ashley Eastman 03/13/2025 8:30 AM EST PACE Home Care / [facility] Home Visit [facility] [place] [facility] [address] [place] [address] Carmen Hartmann 03/13/2025 9:00 AM EST [facility] Att[facility] [facility] [place] [facility] [address] [place] [address] 03/13/2025 4:30 PM EST PACE Home Care / [place] [facility] Visit [facility] [place] [facility] [address] [place] [address] Ashley Eastman 03/14/2025 8:00 AM EST PACE Home Care / [place] Home Visit [facility] [place] [facility] [address] [place] [phone] Carmen Hartmann 03/14/2025 9:30 AM EST PACE Home Care / [facility] [facility] Visit [facility] [place] [facility] [address] [place] [address] Ralph Loyola 03/14/2025 4:30 PM EST PACE Home Care / [facility] Home Visit [facility] [place] [facility] [address] [place] [phone] Ashley Eastman 03/15/2025 8:30 AM EST PACE Home Care / [place] [facility] Visit [facility] [place] [facility] [address] [place] [phone] Marysol Diaz 03/15/2025 12:00 PM EST PACE Home Care / [facility] [facility] Visit [facility] [place] [facility] [address] [place] [phone] Natali Sanford 03/15/2025 5:30 PM EST PACE Home Care / [facility] Home Visit [facility] [place] [facility] [address] [place] [phone] Marysol Diaz 03/16/2025 8:30 AM EST PACE Home Care / [facility] [facility] Visit [facility] [place] [facility] [address] [place] [phone] Marysol Diaz 03/16/2025 12:00 PM EST PACE Home Care / [facility] [facility] Visit [facility] [place] [facility] [address] [place] [phone] Natali Sanford 03/16/2025 4:30 PM EST PACE Home Care / [place] [facility] [place] [facility] [address] [place] [phone] Marysol Diaz 03/16/2025 5:30 PM EST PACE Home Care / [facility] [facility] Visit [facility] [place] [facility] [address] [place] [phone] Marysol Diaz 03/17/2025 8:30 AM EST PACE Home Care / [facility] Visit [facility] [place] [facility] [address] [place] [phone] Carmen Hartmann 03/17/2025 4:30 PM EST PACE Home Care / [facility] [place] [facility] [address] [place] [phone] Ashley Eastman 03/18/2025 8:30 AM EST PACE Home Care / [facility] [place] [facility] [address] [place] [phone] Carmen Hartmann 03/18/2025 11:00 AM EST Office Visit [facility] [place] [facility] [address] [place] [phone] Michelle Castillo MD [address] [place] [address] Brigette East LPN 03/18/2025 4:30 PM EST PACE Home Care / [facility] [facility] Visit [facility] [place] [facility] [address] [place] [phone] Ashley Eastman 03/19/2025 8:30 AM EST PACE Home Care / [facility] [facility] Visit [facility] [place] [facility] [address] [place] [address] Carmen Hartmann 03/19/2025 4:30 PM EST PACE Home Care / [facility] Home Visit [facility] [place] [facility] [address] [place] [address] Ashley Eastman 03/20/2025 8:30 AM EST PACE Home Care / [facility] [place] [facility] [address] [place] [address] Carmen Hartmann 03/20/2025 9:00 AM EST [facility] [facility] [place] [facility] [address] [place] [address] 03/20/2025 4:30 PM EST PACE Home Care / [place] [facility] [place] [facility] [address] [place] [address] Ashley Eastman 03/21/2025 8:00 AM EST PACE Home Care / [facility] Visit [facility] [place] [facility] [address] [place] [phone] Carmen Hartmann 03/21/2025 9:30 AM EST PACE Home Care / [facility] [place] [facility] [address] [place] [address] Ralph Loyola 03/21/2025 4:30 PM EST PACE Home Care / [facility] Visit [facility] [place] [facility] [address] [place] [phone] Ashley Eastman 03/22/2025 12:00 PM EST PACE Home Care / [facility] [facility] [place] [facility] [address] [place] [phone] Dena Chavez 03/23/2025 12:00 PM EST PACE Home Care / [place] [facility] Visit [facility] [place] [facility] [address] [place] [phone] Dena Chavez 03/24/2025 8:30 AM EST PACE Home Care / [place] [facility] Visit [facility] [place] [facility] [address] [place] [phone] Carmen Hartmann 03/24/2025 9:45 AM EST Appointment [facility] [address] [place] [address] Lakia Hou, [facility] TENDER HELPER 03/24/2025 4:30 PM EST PACE Home Care / [facility] [facility] Visit [facility] [place] [facility] [address] [place] [phone] Ashley Eastman 03/25/2025 8:30 AM EST PACE Home Care / [facility] [facility] Visit [facility] [place] [facility] [address] [place] [phone] Carmen Hartmann 03/25/2025 4:30 PM EST PACE Home Care / [facility] Visit [facility] [place] [facility] [address] [place] [phone] Ashley Eastman 03/26/2025 8:30 AM EST PACE Home Care / [facility] [facility] Visit [facility] [place] [facility] [address] [place] [phone] Carmen Hartmann 03/26/2025 4:30 PM EST PACE Home Care / [facility] Visit [facility] [place] [facility] [address] [place] [phone] Ashley Eastman 03/27/2025 8:30 AM EST PACE Home Care / [facility] Visit [facility] [place] [facility] [address] [place] [phone] Carmen Hartmann 03/27/2025 9:00 AM EST [facility] Attendance[facility] [place] [facility] [address] [place] [address] 03/27/2025 2:40 PM EST Clinical Support [facility] [place] [address] [place] [address] 03/27/2025 4:30 PM EST PACE Home Care / [facility] [address] [place] [address] Ashley Eastman 03/28/2025 8:00 AM EST PACE Home Care / [facility] [address] [place] [address] Carmen Hartmann 03/28/2025 10:00 AM EST Clinical Support [facility] [place] [facility] [address] [place] [address] Bethany Mccabe RN 03/28/2025 4:30 PM EST PACE Home Care / P[facility] [address] [place] [address] Ashley Eastman 03/29/2025 8:30 AM EST PACE Home Care / P[facility] Visit [facility] [address] [place] [phone] Marysol Diaz 03/29/2025 12:00 PM EST PACE Home Care / [facility] [address] [place] [address] Natali Sanford 03/29/2025 5:30 PM EST PACE Home Care / [facility] Visit [facility] [place] [facility] [address] [place] [address] Marysol Diaz 03/30/2025 8:30 AM EST PACE Home Care / [facility] Visit [facility] [place] [facility] [address] [place] [phone] Marysol Diaz 03/30/2025 12:00 PM EST PACE Home Care / [facility] Visit [facility] [place] [facility] [address] [place] [address] Natali Sanford 03/30/2025 4:30 PM EST PACE Home Care / [facility] Visit [facility] [place] [facility] [address] [place] [address] Marysol Diaz 03/30/2025 5:30 PM EST PACE Home Care / [facility] [place] [facility] [address] [place] [phone] Marysol Diaz 03/31/2025 8:30 AM EST PACE Home Care / [facility] [place] [facility] [address] [place] [phone] Carmen Hartmann 03/31/2025 4:30 PM EST PACE Home Care / [facility] [place] [facility] [address] [place] [phone] Ashley Eastman 04/01/2025 8:30 AM EST PACE Home Care / [facility] [place] [facility] [address] [place] [phone] Carmen Hartmann 04/01/2025 1:15 PM EST [facility] Visit [facility] [place] [address] [place] [address] 04/01/2025 4:30 PM EST PACE Home Care / [facility] [facility] [place] [facility] [address] [place] [phone] Ashley Eastman 04/02/2025 8:30 AM EST PACE Home Care / [facility] [facility] [place] [facility] [address] [place] [phone] Carmen Hartmann 04/02/2025 4:30 PM EST PACE Home Care / [facility] [place] [facility] [address] [place] [address] Ashley Eastman 04/03/2025 8:30 AM EST PACE Home Care / [facility] [facility] [place] [facility] [address] [place] [address] Carmen Hartmann 04/03/2025 9:00 AM EST [facility] [facility] [place] [facility] [address] [place] [address] 04/03/2025 4:30 PM EST PACE Home Care / [facility] [facility] [place] [facility] [address] [place] [address] Ashley Eastman 04/04/2025 8:00 AM EST PACE Home Care / [facility] [place] [facility] [address] [place] [address] Carmen Hartmann 04/04/2025 9:30 AM EST PACE Home Care / [facility] [place] [facility] [address] [place] [address] Ralph Loyola 04/04/2025 4:30 PM EST PACE Home Care / [facility] [place] [facility] [address] [place] [phone] Ashley Eastman 04/05/2025 12:00 PM EST PACE Home Care / [facility] [place] [facility] [address] [place] [phone] Dena Chavez 04/06/2025 12:00 PM EST PACE Home Care / [facility] [facility] Visit [facility] [place] [facility] [address] [place] [phone] Dena Chavez 2025 8:30 AM EST PACE Home Care / [facility] Visit [facility] [place] [facility] [address] [place] [address] Carmen Hartmann 2025 4:30 PM EST PACE Home Care / [facility] [address] [place] [address] Ashley Eastman 04/08/2025 8:30 AM EST PACE Home Care / [facility] Visit [facility] [place] [facility] [address] [place] [address] Carmen Hartmann 04/08/2025 4:30 PM EST PACE Home Care / [facility] Visit [facility] [place] [facility] [address] [place] [address] Ashley Eastman 04/09/2025 8:30 AM EST PACE Home Care / [facility] Visit [facility] [place] [facility] [address] [place] [phone] Carmen Hartmann 04/09/2025 4:30 PM EST PACE Home Care / [facility] [address] [place] [address] Ashley Eastman 04/10/2025 8:30 AM EST PACE Home Care / [facility] Visit [facility] [place] [facility] [address] [place] [address] Carmen Hartmann 04/10/2025 9:00 AM EST [facility] Att[facility] [place] [facility] [address] [place] [address] 04/10/2025 4:30 PM EST PACE Home Care / [facility] Visit [facility] [place] [facility] [address] [place] [address] Ashley Eastman 04/11/2025 8:00 AM EST PACE Home Care / [facility] Visit [facility] [place] [facility] [address] [place] [address] Carmen Hartmann 04/11/2025 9:30 AM EST PACE Home Care / [facility] Visit [facility] [address] [place] [phone] Ralph Loyola 04/11/2025 4:30 PM EST PACE Home Care / [facility] [address] [place] [phone] Ashley Eastman 04/12/2025 8:30 AM EST PACE Home Care / [facility] Visit [facility] [place] [facility] [facility] [address] [place] [phone] Marysol Diaz 04/12/2025 12:00 PM EST [facility] Home Visit Marsha ABRAMS MA [facility] [address] [place] [phone] Natali Sanford 04/12/2025 5:30 PM EST [facility] / [facility] Home Visit Marsha ABRAMS MA [facility] [address] [place] [phone] Marysol Diaz 04/15/2025 11:00 AM EST Office Visit Marsha ABRAMS [place] [facility] [address] [place] [phone] Michelle Castillo MD [address] [place] [phone] Brigette East LPN 04/17/2025 9:00 AM EST [facility] Attendance/Day Center Marsha ABRAMS [place] [facility] [address] [place] [address] 04/18/2025 10:00 AM EST Clinical Support [place] [facility] [address] [place] [address] Bethany Mccabe RN 04/24/2025 9:00 AM EST PACE Attendance/Day Center [facility] [place] [facility] [address] [place] [phone] 04/24/2025 11:30 AM EST Clinical Support [facility] [address] [address] 05/01/2025 9:00 AM EST PACE Attendance/Day Center [facility] PACE Day [address] [address] 05/08/2025 9:00 AM EST PACE Attendance/Day Center [facility] PACE Day Center [address] [place] [phone] 05/09/2025 10:00 AM EST Clinical Support [facility] PACE [address] [phone] Bethany Mccabe RN 05/13/2025 11:00 AM EST Office Visit [facility] PACE [address] [address] Michelle Castillo MD [address] [place] [phone] Brigette East LPN 05/15/2025 9:00 AM EST PACE Attendance/Day Center [facility] Day [address] [phone] 05/22/2025 9:00 AM EST PACE Attendance/Day Center [facility] [place] [facility] Day [address] [address] 05/29/2025 9:00 AM EST PACE Attendance/Day Center [facility] PACE Day Center [address] [place] [phone] 05/30/2025 10:00 AM EST Clinical Support [facility] PACE [address] [phone] Bethany Mccabe RN 06/05/2025 9:00 AM EST PACE Attendance/Day Center [facility] PACE Day [address] [address] 06/10/2025 11:00 AM EST Office Visit [address] [phone] Michelle Castillo MD [address] [address] Brigette East LPN 06/12/2025 9:00 AM EST PACE Attendance/Day Center [facility] Day [address] [address] 06/19/2025 9:00 AM EST PACE Attendance/Day Center [facility] Day [address] [address] 06/20/2025 10:00 AM EST Clinical Support [address] [phone] Bethany Mccabe RN 06/26/2025 9:00 AM EDT PACE Attendance/Day Center [facility] Day [address] [address] 06/27/2025 1:20 PM EDT Office Visit Gastroenterology - [address] [phone] Analisa Perez, ALONSO [address] [place] [address] 07/03/2025 9:00 AM EDT PACE Attendance/Day Center [facility] Day [address] [address] 07/10/2025 9:00 AM EDT PACE Attendance/Day Center [facility] PACE Day [address] [phone] 07/11/2025 10:00 AM EDT Clinical Support [facility] PACE [address] [address] Bethany Mccabe RN 07/17/2025 9:00 AM EDT PACE Attendance/Day Center Marsha ABRAMS [place] [facility] [address] [place] [phone] 07/17/2025 3:30 PM EDT PACE External Visit Marsha ABRAMS [address] [address] 07/24/2025 9:00 AM EDT [facility] Attendance/Day Center [place] [facility] [address] [place] [phone] 07/31/2025 9:00 AM EDT PACE Attendance/Day Center Marsha ABRAMS [place] [facility] [address] [place] [phone] 08/01/2025 10:00 AM EDT Clinical Support Marsha ABRAMS [place] [facility] [address] [place] [phone] Bethany Mccabe RN 08/07/2025 9:00 AM EDT [facility] Attendance/[place] [facility] [address] [place] [phone] 08/14/2025 9:00 AM EDT PACE Attendance/Day Center Marsha ABRAMS [place] [facility] [address] [place] [phone] 08/21/2025 9:00 AM EDT PACE Attendance/Day Center Marsha ABRAMS [place] [facility] [address] [place] [phone] 08/22/2025 10:00 AM EDT Clinical Support Marsha ABRAMS [place] [facility] [address] [place] [phone] Bethany Mccabe RN 08/28/2025 9:00 AM EDT PACE Attendance/Day [place] Marsha ABRAMS [place] [facility] [address] [place] [phone] 09/04/2025 9:00 AM EDT [facility] Attendance/[place] [facility] [address] [place] [phone] 09/11/2025 9:00 AM EDT PACE Attendance/Day Center Marsha ABRAMS [place] [facility] [address] [place] [phone] 09/12/2025 10:00 AM EDT Clinical Support Marsha ABRAMS [place] [facility] [address] [place] [phone] Bethany Mccabe, HEIDI 09/18/2025 9:00 AM EDT PACE Attendance/Day Center [facility] [place] [facility] [address] [place] [phone] 09/25/2025 9:00 AM EDT PACE Attendance/Day Center [facility] [place] [facility] [address] [place] [phone] 10/02/2025 9:00 AM EDT PACE Attendance/Day Center [facility] [place] [facility] [address] [place] [phone] 10/03/2025 10:00 AM EDT Clinical Support Marsha ABRAMS [place] PACE [address] [address] Bethany Mccabe RN 10/09/2025 9:00 AM EDT [facility] Attendance/[place] [facility] [address] [place] [phone] 10/24/2025 10:00 AM EDT Clinical Support [facility] [address] [place] [phone] Bethany Mccabe, HEIDI 11/14/2025 10:00 AM EDT Clinical Support [facility] [address] [place] [phone] Bethany Mccabe, RN 12/05/2025 10:00 AM EDT Clinical Support [facility] [place] [facility] [address] [place] [phone] Bethany Mccabe, RN 12/26/2025 10:00 AM EDT Clinical Support [facility] [place] [facility] [address] [place] [phone] Bethany Mccabe RN 01/16/2026 10:00 AM EDT Clinical Support [address] [phone] Bethany Mccabe RN 02/06/2026 10:00 AM EDT Clinical Support [address] [address] Bethany Mccabe RN 02/27/2026 10:00 AM EST Clinical Support [address] [phone] Bethany Mccabe RN documented as of this encounter Visit Diagnoses Not on filedocumented in this encounter Care Teams [employer] Advisor Relationship Specialty Start Date End Date Regulo Ivy NP [address] [place] [phone] PCP - General PACE 06/07/24 documented as of this encounter
--- OUTSIDE RECORDS SUMMARY | 2025-02-07 16:30 | XMS_ITS | Encounter Summary ---
Author Organization [facility] Address [address] [place] [address] Care Team Providers Care Clinical Trial Leader Name Role Phone Regulo Ivy NP Primary Care Provider [phone] Encounter Details Date Type Department Care Team (Late st Contact Info) Description 02/07/2025 4:30 PM EDT PACE Home Care / P[facility] Home Visit [facility] [address] [place] [address] Ashley Eastman Social History Tobacco [...] your loved ones. For example, early childhood specialist or elderly care for an older adult? [...] [place] [facility] [address] [place] [phone] Carmen Hartmann 02/12/2025 4:30 PM EDT PACE Home Care / [facility] Home Visit [facility] [place] [facility] [address] [place] [phone] Ashley Eastman 02/13/2025 8:30 AM EDT PACE Home Care / [facility] Home Visit [facility] [place] [facility] [address] [place] [phone] Carmen Hartmann 02/13/2025 9:00 AM EDT PACE Attendance/Day [facility] [address] [place] [phone] 02/13/2025 4:30 PM EDT PACE Home Care / [facility] Visit [facility] [place] [facility] [address] [place] [address] Ashley Eastman 02/14/2025 8:00 AM EDT PACE Home Care / [facility] Home Visit [facility] [place] [facility] [address] [place] [address] Carmen Hartmann 02/14/2025 9:30 AM EDT PACE Home Care / [facility] Visit [facility] [place] [facility] [address] [place] [phone] Ralph Loyola 02/14/2025 4:30 PM EDT PACE Home Care / [facility] Home Visit [facility] [place] [facility] [address] [place] [phone] Ashley Eastman 02/15/2025 8:30 AM EDT PACE Home Care / [facility] Visit [facility] [place] [facility] [address] [place] [phone] Marysol Diaz 02/15/2025 12:00 PM EDT PACE Home Care / [facility] Visit [facility] [place] [facility] [address] [place] [phone] Natali Sanford 02/15/2025 5:30 PM EDT PACE Home Care / [facility] Visit [facility] [place] [facility] [address] [place] [phone] Marysol Diaz 02/16/2025 8:30 AM EST PACE Home Care / [facility] Visit [facility] [place] [facility] [address] [place] [phone] Marysol Diaz 02/16/2025 12:00 PM EST PACE Home Care / [facility] [place] [facility] [address] [place] [phone] Natali Sanford 02/16/2025 4:30 PM EST PACE Home Care / [facility] Home Visit [facility] [place] [facility] [address] [place] [phone] Marysol Diaz 02/16/2025 5:30 PM EST PACE Home Care / [facility] Home Visit [facility] [place] [facility] [address] [place] [phone] Marysol Diaz 02/17/2025 8:30 AM EST PACE Home Care / [facility] Visit [facility] [place] [facility] [address] [place] [phone] Carmen Hartmann 02/17/2025 11:00 AM EST [facility] Visit [facility] [place] [facility] [address] [place] [phone] Michelle Castillo MD [address] [place] [phone] 02/17/2025 4:30 PM EST PACE Home Care / [facility] [place] [facility] [address] [place] [phone] Ashley Eastman 02/18/2025 8:30 AM EST PACE Home Care / [facility] Home Visit [facility] [place] [facility] [address] [place] [phone] Carmen Hartmann 02/18/2025 11:00 AM EST Office Visit [facility] [place] [facility] [address] [place] [phone] Michelle Castillo MD [address] [place] [phone] Brigette East LPN 02/18/2025 4:30 PM EST PACE Home Care / [facility] Home Visit [facility] [place] [facility] [address] [place] [phone] Ashley Eastman 02/19/2025 8:30 AM EST PACE Home Care / [facility] Home Visit [facility] [place] [facility] [address] [place] [address] Carmen Hartmann 02/19/2025 4:30 PM EST PACE Home Care / [facility] Home Visit [facility] [place] [facility] [address] [place] [phone] Ashley Eastman 02/20/2025 8:30 AM EST PACE Home Care / [facility] Home Visit [facility] [place] [facility] [address] [place] [address] Carmen Hartmann 02/20/2025 9:00 AM EST [facility] [facility] [place] [facility] [address] [place] [phone] 02/20/2025 4:30 PM EST PACE Home Care / [facility] Visit [facility] [place] [facility] [address] [place] [phone] Ashley Eastman 02/21/2025 8:00 AM EST PACE Home Care / [facility] Visit [facility] [place] [facility] [address] [place] [phone] Carmen Hartmann 02/21/2025 9:30 AM EST PACE Home Care / [facility] Visit [facility] [place] [facility] [address] [place] [phone] Ralph Loyola 02/21/2025 4:30 PM EST PACE Home Care / [facility] Home Visit [facility] [place] [facility] [address] [place] [phone] Ashley Eastman 02/22/2025 12:00 PM EST PACE Home Care / [facility] Visit [facility] [place] [facility] [address] [place] [phone] Dena Chavez 02/23/2025 12:00 PM EST PACE Home Care / [facility] Home Visit [facility] [place] [facility] [address] [place] [address] Dena Chavez 02/24/2025 8:30 AM EST PACE Home Care / [facility] Home Visit [facility] [place] [facility] [address] [place] [address] Carmen Hartmann 02/24/2025 4:30 PM EST PACE Home Care / [facility] Home Visit [facility] [place] [facility] [address] [place] [phone] Ashley Eastman 02/25/2025 8:30 AM EST PACE Home Care / [facility] Visit [facility] [place] [facility] [address] [place] [phone] Carmen Hartmann 02/25/2025 4:30 PM EST PACE Home Care / [facility] Visit [facility] [place] [facility] [address] [place] [address] Ashley Eastman 02/26/2025 8:30 AM EST PACE Home Care / [facility] Visit [facility] [place] [facility] [address] [place] [phone] Carmen Hartmann 02/26/2025 4:30 PM EST PACE Home Care / [facility] Home Visit [facility] [place] [facility] [address] [place] [phone] Ashley Eastman 02/27/2025 8:30 AM EST PACE Home Care / [facility] Visit [facility] [place] [facility] [address] [place] [phone] Carmen Hartmann 02/27/2025 9:00 AM EST P[facility] Attendance[facility] [facility] [place] [facility] [address] [place] [address] 02/27/2025 4:30 PM EST PACE Home Care / [facility] Visit [facility] [place] [facility] [address] [place] [address] Ashley Eastman 02/28/2025 8:00 AM EST PACE Home Care / [facility] Home Visit [facility] [place] [facility] [address] [place] [address] Carmen Hartmann 02/28/2025 9:30 AM EST PACE Home Care / [facility] Home Visit [facility] [place] [facility] [address] [place] [address] Ralph Loyola 02/28/2025 4:30 PM EST PACE Home Care / [facility] Home Visit [facility] [place] [facility] [address] [place] [phone] Ashley Eastman 03/01/2025 8:30 AM EST PACE Home Care / [facility] Home Visit [facility] [place] [facility] [address] [place] [phone] Marysol Diaz 03/01/2025 12:00 PM EST PACE Home Care / [facility] Home Visit [facility] [place] [facility] [address] [place] [phone] Natali Sanford 03/01/2025 5:30 PM EST PACE Home Care / [facility] Home Visit [facility] [place] [facility] [address] [place] [phone] Marysol Diaz 03/02/2025 8:30 AM EST PACE Home Care / [facility] Home Visit [facility] [place] [facility] [address] [place] [phone] Marysol Diaz 03/02/2025 12:00 PM EST PACE Home Care / [facility] Home Visit [facility] [place] [facility] [address] [place] [phone] Natali Sanford 03/02/2025 4:30 PM EST PACE Home Care / PACE Home Visit [facility] [place] [facility] [address] [place] [address] Marysol Diaz 03/02/2025 5:30 PM EST PACE Home Care / P[facility] Home Visit [facility] [place] [facility] [address] [place] [address] Marysol Diaz 03/03/2025 8:30 AM EST PACE Home Care / [facility] Home Visit [facility] [place] [facility] [address] [place] [address] Carmen Hartmann 03/03/2025 4:30 PM EST PACE Home Care / [facility] Visit [facility] [place] [facility] [address] [place] [phone] Ashley Eastman 03/04/2025 8:30 AM EST PACE Home Care / [facility] Home Visit [facility] [place] [facility] [address] [place] [phone] Carmen Hartmann 03/04/2025 4:30 PM EST PACE Home Care / [facility] Home Visit [facility] [place] [facility] [address] [place] [phone] Ashley Eastman 03/05/2025 8:30 AM EST PACE Home Care / P[facility] Home Visit [facility] [place] [facility] [address] [place] [phone] Carmen Hartmann 03/05/2025 4:30 PM EST PACE Home Care / P[facility] Home Visit [facility] [place] [facility] [address] [place] [phone] Ashley Eastman 03/06/2025 8:30 AM EST PACE Home Care / [facility] Home Visit [facility] [place] [facility] [address] [place] [phone] Carmen Hartmann 03/06/2025 9:00 AM EST [facility] Attendance[facility] [place] [facility] [address] [place] [address] 03/06/2025 4:30 PM EST PACE Home Care / PACE Home Visit [facility] [address] [place] [address] Ashley Eastman 03/07/2025 Lab [facility] Occupational Therapy [address] [place] [address] Clemencia Napier, OT Schizophrenia in partial remission with history of multiple episodes (CMS/HCC V24, CMS/HCC V28) 03/07/2025 8:00 AM EST PACE Home Care / PACE Home Visit [facility] [address] [place] [phone] Carmen Hartmann 03/07/2025 9:00 AM EST Clinical Support [facility] [address] [place] [phone] Bethany Mccabe RN 03/07/2025 9:30 AM EST PACE Home Care / P[facility] Home Visit [facility] [address] [place] [phone] Ralph Loyola 03/07/2025 4:30 PM EST PACE Home Care / PACE Home Visit [facility] [address] [place] [phone] Ashley Eastman 03/08/2025 12:00 PM EST PACE Home Care / PACE Home Visit [facility] [address] [place] [phone] Dena Chavez 03/09/2025 12:00 PM EST PACE Home Care / P[facility] Home Visit [facility] [address] [place] [phone] Dena Chavez 03/10/2025 8:30 AM EST PACE Home Care / PACE Home Visit [facility] [place] [facility] [address] [place] [address] Carmen Hartmann 03/10/2025 4:30 PM EST PACE Home Care / PACE Home Visit [facility] [address] [place] [phone] Ashley Eastman 03/11/2025 8:30 AM EST PACE Home Care / PACE Home Visit [facility] [address] [place] [address] Carmen Hartmann 03/11/2025 4:30 PM EST PACE Home Care / PACE Home Visit [facility] [address] [place] [phone] Ashley Eastman 03/12/2025 8:30 AM EST PACE Home Care / PACE Home Visit [facility] [address] [place] [phone] Carmen Hartmann 03/12/2025 4:30 PM EST PACE Home Care / P[facility] Home Visit [facility] [address] [place] [phone] Ashley Eastman 03/13/2025 8:30 AM EST PACE Home Care / P[facility] Home Visit [facility] [address] [place] [phone] Carmen Hartmann 03/13/2025 9:00 AM EST [facility] Attendance[facility] [place] [facility] [address] [place] [address] 03/13/2025 4:30 PM EST PACE Home Care / P[facility] Home Visit [facility] [address] [place] [phone] Ashley Eastman 03/14/2025 8:00 AM EST PACE Home Care / [facility] Home Visit [facility] [address] [place] [address] Carmen Hartmann 03/14/2025 9:30 AM EST PACE Home Care / [facility] Visit [facility] [place] [facility] [address] [place] [address] Ralph Loyola 03/14/2025 4:30 PM EST PACE Home Care / [facility] Home Visit [facility] [place] [facility] [address] [place] [address] Ashley Eastman 03/15/2025 8:30 AM EST PACE Home Care / [facility] Home Visit [facility] [place] [facility] [address] [place] [phone] Marysol Diaz 03/15/2025 12:00 PM EST PACE Home Care / [facility] Home Visit [facility] [place] [facility] [address] [place] [phone] Natali Sanford 03/15/2025 5:30 PM EST PACE Home Care / [facility] Home Visit [facility] [place] [facility] [address] [place] [phone] Marysol Diaz 03/16/2025 8:30 AM EST PACE Home Care / [facility] Home Visit [facility] [place] [facility] [address] [place] [phone] Marysol Diaz 03/16/2025 12:00 PM EST PACE Home Care / [facility] Visit [facility] [place] [facility] [address] [place] [phone] Natali Sanford 03/16/2025 4:30 PM EST PACE Home Care / [facility] Visit [facility] [place] [facility] [address] [place] [phone] Marysol Diaz 03/16/2025 5:30 PM EST PACE Home Care / [facility] Visit [facility] [place] [facility] [address] [place] [phone] Marysol Diaz 03/17/2025 8:30 AM EST PACE Home Care / [facility] Home Visit [facility] [place] [facility] [address] [place] [address] Carmen Hartmann 03/17/2025 4:30 PM EST PACE Home Care / [facility] Visit [facility] [place] [facility] [address] [place] [phone] Ashley Eastman 03/18/2025 8:30 AM EST PACE Home Care / [facility] Visit [facility] [place] [facility] [address] [place] [phone] Carmen Hartmann 03/18/2025 11:00 AM EST [facility] [address] [place] [phone] Michelle Castillo MD [address] [place] [address] Brigette East LPN 03/18/2025 4:30 PM EST PACE Home Care / [facility] Visit [facility] [address] [place] [phone] Ashley Eastman 03/19/2025 8:30 AM EST PACE Home Care / [facility] Visit [facility] [place] [facility] [address] [place] [phone] Carmen Hartmann 03/19/2025 4:30 PM EST PACE Home Care / [facility] Visit [facility] [place] [facility] [address] [place] [phone] Ashley Eastman 03/20/2025 8:30 AM EST PACE Home Care / [facility] Visit [facility] [place] [facility] [address] [place] [phone] Carmen Hartmann 03/20/2025 9:00 AM EST [facility] Att[facility] [place] [facility] [address] [place] [address] 03/20/2025 4:30 PM EST PACE Home Care / [facility] Visit [facility] [place] [facility] [address] [place] [phone] Ashley Eastman 03/21/2025 8:00 AM EST PACE Home Care / P[facility] Home Visit [facility] [address] [place] [phone] Carmen Hartmann 03/21/2025 9:30 AM EST PACE Home Care / P[facility] Home Visit [facility] [address] [place] [phone] Ralph Loyola 03/21/2025 4:30 PM EST PACE Home Care / [facility] Visit [facility] [place] [facility] [address] [place] [phone] Ashley Eastman 03/22/2025 12:00 PM EST PACE Home Care / [facility] Visit [facility] [address] [place] [phone] Dena Chavez 03/23/2025 12:00 PM EST PACE Home Care / P[facility] Visit [facility] [place] [facility] [address] [place] [phone] Dena Chavez 03/24/2025 8:30 AM EST PACE Home Care / [facility] Visit [facility] [place] [facility] [address] [place] [phone] Carmen Hartmann 03/24/2025 9:45 AM EST [facility]ment [facility] [address] [place] [address] Lakia Hou, CCC-GROUNDS RESTORATION SPECIALIST 03/24/2025 4:30 PM EST PACE Home Care / PACE Home Visit [facility] [address] [place] [address] Ashley Eastman 03/25/2025 8:30 AM EST PACE Home Care / P[facility] Home Visit [facility] [address] [place] [address] Carmen Hartmann 03/25/2025 4:30 PM EST PACE Home Care / P[facility] Visit [facility] [address] [place] [address] Ashley Eastman 03/26/2025 8:30 AM EST PACE Home Care / P[facility] Visit [facility] [address] [place] [phone] Carmen Hartmann 03/26/2025 4:30 PM EST PACE Home Care / P[facility] Home Visit [facility] [address] [place] [phone] Ashley Eastman 03/27/2025 8:30 AM EST PACE Home Care / P[facility] Visit [facility] [address] [place] [phone] Carmen Hartmann 03/27/2025 9:00 AM EST [facility] Att[facility] [place] [facility] [address] [place] [address] 03/27/2025 2:40 PM EST Clinical Support [facility] [place] [address] [place] [address] 03/27/2025 4:30 PM EST PACE Home Care / P[facility] Visit [facility] [address] [place] [address] Ashley Eastman 03/28/2025 8:00 AM EST PACE Home Care / P[facility] Visit [facility] [address] [place] [phone] Carmen Hartmann 03/28/2025 10:00 AM EST Clinical Support [facility] [address] [place] [address] Bethany Mccabe RN 03/28/2025 4:30 PM EST PACE Home Care / [facility] [address] [place] [address] Ashley Eastman 03/29/2025 8:30 AM EST PACE Home Care / P[facility] Visit [facility] [address] [place] [address] Marysol Diaz 03/29/2025 12:00 PM EST PACE Home Care / P[facility] Visit [facility] [address] [place] [address] Natali Sanford 03/29/2025 5:30 PM EST PACE Home Care / P[facility] Visit [facility] [address] [place] [address] Marysol Diaz 03/30/2025 8:30 AM EST PACE Home Care / P[facility] Visit [facility] [address] [place] [address] Marysol Diaz 03/30/2025 12:00 PM EST PACE Home Care / P[facility] Visit [facility] [address] [place] [address] Natali Sanford 03/30/2025 4:30 PM EST PACE Home Care / [facility] Visit [facility] [address] [place] [address] Marysol Diaz 03/30/2025 5:30 PM EST PACE Home Care / [facility] Visit [facility] [place] [facility] [address] [place] [address] Marysol Diaz 03/31/2025 8:30 AM EST PACE Home Care / [facility] Visit [facility] [place] [facility] [address] [place] [address] Carmen Hartmann 03/31/2025 4:30 PM EST PACE Home Care / [facility] Visit [facility] [place] [facility] [address] [place] [address] Ashley Eastman 04/01/2025 8:30 AM EST PACE Home Care / [facility] Visit [facility] [place] [facility] [address] [place] [address] Carmen Hartmann 04/01/2025 1:15 PM EST PACE External Visit [facility] [address] [place] [address] 04/01/2025 4:30 PM EST PACE Home Care / [facility] [address] [place] [address] Ashley Eastman 04/02/2025 8:30 AM EST PACE Home Care / [facility] Visit [facility] [place] [facility] [address] [place] [phone] Carmen Hartmann 04/02/2025 4:30 PM EST PACE Home Care / [facility] Visit [facility] [place] [facility] [address] [place] [address] Ashley Eastman 04/03/2025 8:30 AM EST PACE Home Care / [facility] Visit [facility] [place] [facility] [address] [place] [address] Carmen Hartmann 04/03/2025 9:00 AM EST [facility] [facility] [place] [facility] [address] [place] [address] 04/03/2025 4:30 PM EST PACE Home Care / [facility] [place] [facility] [address] [place] [address] Ashley Eastman 04/04/2025 8:00 AM EST PACE Home Care / [facility] [place] [facility] [address] [place] [address] Carmen Hartmann 04/04/2025 9:30 AM EST PACE Home Care / [facility] [place] [facility] [address] [place] [address] Ralph Loyola 04/04/2025 4:30 PM EST PACE Home Care / [facility] [place] [facility] [address] [place] [address] Ashley Eastman 04/05/2025 12:00 PM EST PACE Home Care / [facility] Visit [facility] [place] [facility] [address] [place] [address] Dena Chavez 04/06/2025 12:00 PM EST PACE Home Care / [facility] Visit [facility] [place] [facility] [address] [place] [address] Dena Chavez 2025 8:30 AM EST PACE Home Care / [facility] [place] [facility] [address] [place] [address] Carmen Hartmann 2025 4:30 PM EST PACE Home Care / [facility] Visit [facility] [place] [facility] [address] [place] [address] Ashley Eastman 04/08/2025 8:30 AM EST PACE Home Care / [facility] [place] [facility] [address] [place] [address] Carmen Hartmann 04/08/2025 4:30 PM EST PACE Home Care / [facility] [place] [facility] [address] [place] [address] Ashley Eastman 04/09/2025 8:30 AM EST PACE Home Care / [facility] [place] [facility] [address] [place] [address] Carmen Hartmann 04/09/2025 4:30 PM EST PACE Home Care / [facility] [place] [facility] [address] [place] [address] Ashley Eastman 04/10/2025 8:30 AM EST PACE Home Care / [facility] Visit [facility] [place] [facility] [address] [place] [address] Carmen Hartmann 04/10/2025 9:00 AM EST [facility] Att[facility] [place] [facility] [address] [place] [address] 04/10/2025 4:30 PM EST PACE Home Care / [facility] [place] [facility] [address] [place] [phone] Ashley Eastman 04/11/2025 8:00 AM EST PACE Home Care / [facility] [place] [facility] [address] [place] [phone] Carmen Hartmann 04/11/2025 9:30 AM EST P[facility] Home Care / [facility] [place] [facility] [address] [place] [phone] Ralph Loyola 04/11/2025 4:30 PM EST [facility] Home [facility] / [facility] [address] [place] [phone] Ashley Eastman 04/12/2025 8:30 AM EST [facility] Home [facility] / [facility] [address] [place] [phone] Marysol Diaz 04/12/2025 12:00 PM EST PACE Home Care / P[facility] Home Visit [facility] [address] [place] [phone] Felymeghan Meghannasima 04/12/2025 5:30 PM EST [facility] Home Care / [facility] [address] [place] [phone] Marysol Diaz 04/15/2025 11:00 AM EST Office Visit [facility] [address] [place] [phone] Michelle Castillo MD [address] [place] [phone] Brigette East LPN 04/17/2025 9:00 AM EST PACE Attendance/Day Center [facility] [address] [place] [phone] 04/18/2025 10:00 AM EST Clinical Support [facility] [address] [place] [phone] Bethany Mccabe RN 04/24/2025 9:00 AM EST PACE Attendance/Day Center [facility] [address] [place] [phone] 04/24/2025 11:30 AM EST Clinical Support [facility] [address] [phone] 05/01/2025 9:00 AM EST PACE Attendance/Day Center [facility] [address] [place] [phone] 05/08/2025 9:00 AM EST PACE Attendance/Day Center [facility] [address] [place] [phone] 05/09/2025 10:00 AM EST Clinical Support [facility] [address] [phone] Bethany Mccabe RN 05/13/2025 11:00 AM EST Office Visit [address] [phone] Michelle Castillo MD [address] [address] Brigette East LPN 05/15/2025 9:00 AM EST PACE Attendance/Day Center [facility] Day Center [address] [place] [phone] 05/22/2025 9:00 AM EST PACE Attendance/Day Center [facility] Day [address] [phone] 05/29/2025 9:00 AM EST PACE Attendance/Day Center [facility] Day [address] [phone] 05/30/2025 10:00 AM EST Clinical Support [address] [phone] Bethany Mccabe RN 06/05/2025 9:00 AM EST PACE Attendance/Day Center [facility] Day [address] [phone] 06/10/2025 11:00 AM EST Office Visit [address] [phone] Michelle Castillo MD [address] [place] [phone] Brigette East LPN 06/12/2025 9:00 AM EST PACE Attendance/Day Center [facility] PACE Day [address] [phone] 06/19/2025 9:00 AM EST PACE Attendance/Day Center [facility] PACE Day [address] [phone] 06/20/2025 10:00 AM EST Clinical Support [facility] [address] [place] [phone] Bethany Mccabe RN 06/26/2025 9:00 AM EDT PACE Attendance/Day Center [facility] [address] [place] [phone] 06/27/2025 1:20 PM EDT Office Visit Gastroenterology - [address] [place] [phone] Analisa Perez, ORDER CALLER [address] [place] [address] 07/03/2025 9:00 AM EDT PACE Attendance/Day Center [facility] P[facility] Day Center [address] [place] [phone] 07/10/2025 9:00 AM EDT PACE Attendance/Day Center [facility] P[facility] Day Center [address] [place] [phone] 07/11/2025 10:00 AM EDT Clinical Support [facility] [address] [place] [phone] Bethany Mccabe RN 07/17/2025 9:00 AM EDT PACE Attendance/Day Center [facility] [address] [place] [phone] 07/17/2025 3:30 PM EDT PACE External Visit [facility] [address] [phone] 07/24/2025 9:00 AM EDT PACE Attendance/Day Center Marsha [facility] PACE Day [address] [phone] 07/31/2025 9:00 AM EDT PACE Attendance/Day Center Marsha [facility] PACE Day Center [address] [place] [phone] 08/01/2025 10:00 AM EDT Clinical Support [facility] [address] [place] [phone] Bethany Mccabe RN 08/07/2025 9:00 AM EDT [facility] Attendance[facility] [address] [place] [phone] 08/14/2025 9:00 AM EDT PACE Attendance/[facility] [address] [place] [address] 08/21/2025 9:00 AM EDT PACE Attendance/[facility] [address] [place] [phone] 08/22/2025 10:00 AM EDT Clinical Support [facility] [address] [place] [phone] Bethany Mccabe RN 08/28/2025 9:00 AM EDT [facility]ACE Attendance[facility] [address] [place] [phone] 09/04/2025 9:00 AM EDT [facility]ACE Attendance[facility] [address] [place] [phone] 09/11/2025 9:00 AM EDT [facility]ACE Attendance[facility] [address] [place] [phone] 09/12/2025 10:00 AM EDT Clinical Support [facility] [address] [place] [phone] Bethany Mccabe, RN 09/18/2025 9:00 AM EDT [facility]ACE Attendance[facility] [address] [place] [phone] 09/25/2025 9:00 AM EDT [facility] Attendance[facility] [address] [place] [phone] 10/02/2025 9:00 AM EDT PACE Attendance/Day Center [facility] Day [address] [phone] 10/03/2025 10:00 AM EDT Clinical Support [facility] [address] [phone] Bethany Mccabe RN 10/09/2025 9:00 AM EDT PACE Attendance/Day Center [facility] Day [address] [address] 10/24/2025 10:00 AM EDT Clinical Support [facility] [address] [phone] Bethany Mccabe RN 11/14/2025 10:00 AM EDT Clinical Support [facility] [address] [phone] Bethany Mccabe RN 12/05/2025 10:00 AM EDT Clinical Support [facility] [address] [phone] Bethany Mccabe RN 12/26/2025 10:00 AM EDT Clinical Support [facility] [address] [phone] Bethany Mccabe, HEIDI 01/16/2026 10:00 AM EDT Clinical Support [facility] [address] [phone] Bethany Mccabe RN 02/06/2026 10:00 AM EDT Clinical Support [facility] [address] [phone] Bethany Mccabe, HEIDI 02/27/2026 10:00 AM EST Clinical Support [facility] [address] [phone] Bethany Mccabe, HEIDI documented as of this encounter Visit Diagnoses Not on filedocumented in this encounter Care Teams Clinical Trial Leader Relationship Specialty Start Date End Date Regulo Ivy NP [address] [place] [address] PCP - General PACE 06/07/24 documented as of this encounter
--- OUTSIDE RECORDS SUMMARY | 2025-02-07 16:45 | XMS_ITS | Encounter Summary ---
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 For example, maternal child nurse or elderly care for an older adult? [...] Sign Reading Time Taken Comments Blood Pressure 118/89 02/07/2025 10:45 AM EDT Pulse 53 02/07/2025 10:45 AM EDT Temperature 37.1 C (98.7 F) 02/07/2025 10:45 AM EDT Respiratory Rate 17 02/07/2025 10:45 AM EDT Oxygen Saturation 97% 02/07/2025 10:45 AM EDT RA Inhaled Oxygen Concentration - - Weight - [...] documented in this encounter Progress Notes * 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 RN - 02/07/2025 4:45 PM EDT Par seen at home for medication management. She is alert and sitting up on couch. VSS. Par tolerating diet. Last BM today. Mac Packs adjusted as ordered. Par educated on new medication and given her daily dose plavix. Par with no other questions/concerns at time of visit. Continue plan of care. documented in this encounter Plan of Treatment Upcoming Encounters Date Type Department Care Team (Latest Contact Info) Description 02/12/2025 8:30 AM EDT P[facility] Home Care / [facility] Home Visit [facility] [address] [place] [address] Carmen Hartmann 02/12/2025 4:30 PM EDT PACE Home Care / PACE Home Visit [facility] [address] [place] [phone] Ashley Eastman 02/13/2025 8:30 AM EDT PACE Home Care / PACE Home Visit [facility] [address] [place] [phone] Carmen Hartmann 02/13/2025 9:00 AM EDT [facility] Attend[facility] [place] [facility] [address] [place] [address] 02/13/2025 4:30 PM EDT PACE Home Care / PACE Home Visit [facility] [address] [place] [phone] Ashley Eastman 02/14/2025 8:00 AM EDT PACE Home Care / P[facility] Home Visit [facility] [address] [place] [phone] Carmen Hartmann 02/14/2025 9:30 AM EDT PACE Home Care / PACE Home Visit [facility] [address] [place] [phone] Ralph Loyola 02/14/2025 4:30 PM EDT PACE Home Care / [facility] Home Visit [facility] [address] [place] [phone] Ashley Eastman 02/15/2025 8:30 AM EDT P[facility] Home [facility] / [facility] [place] [facility] [address] [place] [phone] Marysol Diaz 02/15/2025 12:00 PM EDT PACE Home Care / [facility] Visit [facility] [place] [facility] [address] [place] [phone] Natali Sanford 02/15/2025 5:30 PM EDT PACE Home Care / [facility] Visit [facility] [place] [facility] [address] [place] [phone] Joe Marysol 02/16/2025 8:30 AM EST P[facility] Home Care / [facility] [place] [facility] [address] [place] [phone] Joe Marysol 02/16/2025 12:00 PM EST PACE Home Care / [facility] [place] [facility] [address] [place] [phone] Natali Sanford 02/16/2025 4:30 PM EST PACE Home Care / [place] [facility] [place] [facility] [address] [place] [phone] [facility] Marysol 02/16/2025 5:30 PM EST PACE Home Care / [facility] [facility] [place] [facility] [address] [place] [phone] Joe Marysol 02/17/2025 8:30 AM EST P[facility] Home Care / [facility] [facility] [place] [facility] [address] [place] [phone] Carmen Hartmann 02/17/2025 11:00 AM EST [facility] Visit [facility] [place] [facility] [address] [place] [phone] Michelle Castillo MD [address] [place] [phone] 02/17/2025 4:30 PM EST PACE Home Care / [facility] [place] [facility] [address] [place] [phone] Ashley Eastman 02/18/2025 8:30 AM EST P[facility] Home Care / [facility] [place] [facility] [address] [place] [phone] Carmen Hartmann 02/18/2025 11:00 AM EST Office [place] [facility] [place] [facility] [address] [place] [phone] Michelle Castillo MD [address] [place] [phone] Brigette East LPN 02/18/2025 4:30 PM EST P[facility] Home Care / [facility] [place] [facility] [address] [place] [phone] Ashley Eastman 02/19/2025 8:30 AM EST P[facility] Home Care / [facility] [place] [facility] [address] [place] [phone] Carmen Hartmann 02/19/2025 4:30 PM EST PACE Home Care / [facility] [place] [facility] [address] [place] [phone] Ashley Eastman 02/20/2025 8:30 AM EST P[facility] Home [facility] / [facility] [place] [facility] [address] [place] [phone] Carmen Hartmann 02/20/2025 9:00 AM EST [facility] [facility] [place] [facility] [address] [place] [address] 02/20/2025 4:30 PM EST PACE Home Care / [place] [facility] [place] [facility] [address] [place] [address] Ashley Eastman 02/21/2025 8:00 AM EST P[facility] Home Care / [place] [facility] [place] [facility] [address] [place] [address] Carmen Hartmann 02/21/2025 9:30 AM EST P[facility] Home Care / [facility] [facility] [place] [facility] [address] [place] [address] Ralph Loyola 02/21/2025 4:30 PM EST P[facility] Home [facility] / [facility] [facility] [place] [facility] [address] [place] [phone] Ashley Eastman 02/22/2025 12:00 PM EST [facility] Home [facility] / [place] [facility] [place] [facility] [address] [place] [phone] Dena Chavez 02/23/2025 12:00 PM EST P[facility] Home Care / [facility] [facility] [place] [facility] [address] [place] [phone] Dena Chavez 02/24/2025 8:30 AM EST P[facility] Home Care / [place] [facility] [place] [facility] [address] [place] [phone] Carmen Hartmann 02/24/2025 4:30 PM EST P[facility] Home Care / [facility] [facility] [place] [facility] [address] [place] [address] Ashley Eastman 02/25/2025 8:30 AM EST PACE Home Care / [facility] [facility] [place] [facility] [address] [place] [phone] Carmen Hartmann 02/25/2025 4:30 PM EST P[facility] Home Care / [facility] [facility] [place] [facility] [address] [place] [address] Ashley Eastman 02/26/2025 8:30 AM EST P[facility] Home Care / [facility] [place] [facility] [address] [place] [address] Carmen Hartmann 02/26/2025 4:30 PM EST PACE Home Care / [facility] [place] [facility] [address] [place] [address] Ashley Eastman 02/27/2025 8:30 AM EST PACE Home Care / [place] [facility] [place] [facility] [address] [place] [phone] Carmen Hartmann 02/27/2025 9:00 AM EST [facility] [facility] [place] [facility] [address] [place] [address] 02/27/2025 4:30 PM EST PACE Home Care / [facility] [facility] [place] [facility] [address] [place] [phone] Ashley Eastman 02/28/2025 8:00 AM EST P[facility] Home Care / [facility] [place] [facility] [address] [place] [phone] Carmen Hartmann 02/28/2025 9:30 AM EST PACE Home Care / [facility] [facility] [place] [facility] [address] [place] [phone] Ralph Loyola 02/28/2025 4:30 PM EST PACE Home Care / [facility] [facility] [place] [facility] [address] [place] [phone] Ashley Eastman 03/01/2025 8:30 AM EST PACE Home Care / [place] [facility] [place] [facility] [address] [place] [phone] [facility] Marysol 03/01/2025 12:00 PM EST PACE Home Care / [facility] [facility] Visit [facility] [place] [facility] [address] [place] [address] Natali Sanford 03/01/2025 5:30 PM EST PACE Home Care / [facility] Visit [facility] [place] [facility] [address] [place] [address] [facility] 03/02/2025 8:30 AM EST PACE Home Care / [facility] [place] [facility] [address] [place] [phone] [facility] 03/02/2025 12:00 PM EST PACE Home Care / [facility] [place] [facility] [address] [place] [phone] Natali Sanford 03/02/2025 4:30 PM EST PACE Home Care / [place] [facility] [place] [facility] [address] [place] [phone] [facility] 03/02/2025 5:30 PM EST PACE Home Care / [place] [facility] Visit [facility] [place] [facility] [address] [place] [phone] [facility] 03/03/2025 8:30 AM EST PACE Home Care / [facility] Visit [facility] [place] [facility] [address] [place] [phone] Carmen Hartmann 03/03/2025 4:30 PM EST PACE Home Care / [facility] [facility] [place] [facility] [address] [place] [phone] Ashley Eastman 03/04/2025 8:30 AM EST P[facility] Home Care / [facility] [place] [facility] [address] [place] [phone] Carmen Hartmann 03/04/2025 4:30 PM EST PACE Home Care / PACE Home Visit [facility] [address] [place] [phone] Ashley Eastman 03/05/2025 8:30 AM EST PACE Home Care / P[facility] Home Visit [facility] [address] [place] [phone] Carmen Hartmann 03/05/2025 4:30 PM EST PACE Home Care / PACE Home Visit [facility] [address] [place] [phone] Ashley Eastman 03/06/2025 8:30 AM EST PACE Home Care / PACE Home Visit [facility] [address] [place] [phone] Carmen Hartmann 03/06/2025 9:00 AM EST [facility] Attendance[facility] [place] [facility] [address] [place] [phone] 03/06/2025 4:30 PM EST PACE Home Care / PACE Home Visit [facility] [address] [place] [phone] Ashley Eastman 03/07/2025 Lab [facility] Occupational Therapy [address] [place] [phone] Clemencia Napier, ADITYA Schizophrenia in partial remission with history of multiple episodes (CMS/HCC V24, CMS/HCC V28) 03/07/2025 8:00 AM EST PACE Home Care / PACE Home Visit [facility] [address] [place] [phone] Carmen Hartmann 03/07/2025 9:00 AM EST Clinical Support [facility] [place] [facility] [address] [place] [phone] Bethany Mccabe RN 03/07/2025 9:30 AM EST PACE Home Care / [facility] Visit [facility] [place] [facility] [address] [place] [phone] Ralph Loyola 03/07/2025 4:30 PM EST PACE Home Care / [facility] Visit [facility] [place] [facility] [address] [place] [phone] Ashley Eastman 03/08/2025 12:00 PM EST PACE Home Care / [facility] Visit [facility] [place] [facility] [address] [place] [phone] Dena Chavez 03/09/2025 12:00 PM EST PACE Home Care / [facility] [place] [facility] [address] [place] [phone] Dena Chavez 03/10/2025 8:30 AM EST PACE Home Care / [facility] [place] [facility] [address] [place] [phone] Carmen Hartmann 03/10/2025 4:30 PM EST PACE Home Care / [facility] [place] [facility] [address] [place] [phone] Ashley Eastman 03/11/2025 8:30 AM EST P[facility] Home Care / [facility] [place] [facility] [address] [place] [phone] Carmen Hartmann 03/11/2025 4:30 PM EST PACE Home Care / [facility] [place] [facility] [address] [place] [phone] Ahsley Eastman 03/12/2025 8:30 AM EST PACE Home Care / [facility] [place] [facility] [address] [place] [phone] Carmen Hartmann 03/12/2025 4:30 PM EST PACE Home Care / [facility] Visit [facility] [place] [facility] [address] [place] [address] Ashley Eastman 03/13/2025 8:30 AM EST PACE Home Care / [facility] Visit [facility] [place] [facility] [address] [place] [address] Carmen Hartmann 03/13/2025 9:00 AM EST [facility] [facility] [place] [facility] [address] [place] [address] 03/13/2025 4:30 PM EST PACE Home Care / [facility] [place] [facility] [address] [place] [address] Ashley Eastman 03/14/2025 8:00 AM EST PACE Home Care / [facility] [place] [facility] [address] [place] [phone] Carmen Hartmann 03/14/2025 9:30 AM EST PACE Home Care / [facility] [place] [facility] [address] [place] [phone] Ralph Loyola 03/14/2025 4:30 PM EST PACE Home Care / [facility] [place] [facility] [address] [place] [address] Ashley Eastman 03/15/2025 8:30 AM EST P[facility] Home Care / [facility] [place] [facility] [address] [place] [phone] Marysol Diaz 03/15/2025 12:00 PM EST PACE Home Care / [facility] [place] [facility] [address] [place] [phone] Natali Sanford 03/15/2025 5:30 PM EST PACE Home Care / [facility] [place] [facility] [address] [place] [phone] Marysol Diaz 03/16/2025 8:30 AM EST PACE Home Care / [facility] [place] [facility] [address] [place] [phone] Marysol Diaz 03/16/2025 12:00 PM EST PACE Home Care / [facility] Visit [facility] [place] [facility] [address] [place] [phone] Natali Sanford 03/16/2025 4:30 PM EST PACE Home Care / [facility] [place] [facility] [address] [place] [phone] Marysol Diaz 03/16/2025 5:30 PM EST PACE Home Care / [facility] [place] [facility] [address] [place] [phone] Marysol Diaz 03/17/2025 8:30 AM EST PACE Home Care / [facility] [place] [facility] [address] [place] [phone] Carmen Hartmann 03/17/2025 4:30 PM EST PACE Home Care / [facility] [place] [facility] [address] [place] [phone] Ashley Eastman 03/18/2025 8:30 AM EST PACE Home Care / [facility] [place] [facility] [address] [place] [phone] Carmen Hartmann 03/18/2025 11:00 AM EST [facility] Visit [facility] [place] [facility] [address] [place] [phone] Michelle Castillo MD [address] [place] [phone] Brigette EastVICKY 03/18/2025 4:30 PM EST PACE Home Care / [facility] [place] [facility] [address] [place] [phone] Ashley Eastman 03/19/2025 8:30 AM EST P[facility] Home Care / [facility] [place] [facility] [address] [place] [phone] Carmen Hartmann 03/19/2025 4:30 PM EST PACE Home Care / [facility] [place] [facility] [address] [place] [phone] Ashley Eastman 03/20/2025 8:30 AM EST PACE Home Care / [facility] [place] [facility] [address] [place] [phone] Carmen Hartmann 03/20/2025 9:00 AM EST [facility] Att[facility] [facility] [place] [facility] [address] [place] [phone] 03/20/2025 4:30 PM EST PACE Home Care / [facility] [place] [facility] [address] [place] [phone] Ashley Eastman 03/21/2025 8:00 AM EST PACE Home Care / [facility] [place] [facility] [address] [place] [phone] Carmen Hartmann 03/21/2025 9:30 AM EST PACE Home Care / [facility] [place] [facility] [address] [place] [phone] Rlaph Loyola 03/21/2025 4:30 PM EST PACE Home Care / [facility] [place] [facility] [address] [place] [phone] Ashley Eastman 03/22/2025 12:00 PM EST PACE Home Care / [facility] [place] [facility] [address] [place] [phone] Dena Chavez 03/23/2025 12:00 PM EST PACE Home Care / [facility] [place] [facility] [address] [place] [phone] Dena Chavez 03/24/2025 8:30 AM EST P[facility] Home [facility] / [facility] [place] [facility] [address] [place] [phone] Carmen Hartmann 03/24/2025 9:45 AM EST Appointment [address] [phone] Lakia Hou, [facility] 03/24/2025 4:30 PM EST PACE Home Care / [facility] [place] [facility] [address] [place] [phone] Ashley Eastman 03/25/2025 8:30 AM EST PACE Home Care / [facility] [place] [facility] [address] [place] [phone] Carmen Hartmann 03/25/2025 4:30 PM EST PACE Home Care / [facility] [place] [facility] [address] [place] [phone] Ashley Eastman 03/26/2025 8:30 AM EST P[facility] Home Care / [facility] [place] [facility] [address] [place] [phone] Carmen Hartmann 03/26/2025 4:30 PM EST PACE Home Care / [facility] [place] [facility] [address] [place] [phone] Ashley Eastman 03/27/2025 8:30 AM EST PACE Home Care / [facility] [address] [place] [address] Carmen Hartmann 03/27/2025 9:00 AM EST [facility] Attendance[facility] [place] [facility] [address] [place] [address] 03/27/2025 2:40 PM EST Clinical Support [facility] [place] [address] [place] [address] 03/27/2025 4:30 PM EST PACE Home Care / [facility] [place] [facility] [address] [place] [address] Ashley Eastman 03/28/2025 8:00 AM EST PACE Home Care / [facility] [place] [facility] [address] [place] [address] Carmen Hartmann 03/28/2025 10:00 AM EST Clinical Support [facility] [place] [facility] [address] [place] [address] Bethany Mccabe RN 03/28/2025 4:30 PM EST PACE Home Care / [facility] [place] [facility] [address] [place] [address] Ashley Eastman 03/29/2025 8:30 AM EST PACE Home Care / [facility] [place] [facility] [address] [place] [address] Marysol Diaz 03/29/2025 12:00 PM EST PACE Home Care / [facility] [place] [facility] [address] [place] [address] Natali Sanford 03/29/2025 5:30 PM EST PACE Home Care / [facility] Visit [facility] [place] [facility] [address] [place] [address] Marysol Diaz 03/30/2025 8:30 AM EST PACE Home Care / [facility] [place] [facility] [address] [place] [address] Marysol Diaz 03/30/2025 12:00 PM EST PACE Home Care / [facility] [place] [facility] [address] [place] [address] Natali Sanford 03/30/2025 4:30 PM EST PACE Home Care / [facility] [place] [facility] [address] [place] [phone] Marysol Diaz 03/30/2025 5:30 PM EST PACE Home Care / [facility] [place] [facility] [address] [place] [phone] Marysol Diaz 03/31/2025 8:30 AM EST PACE Home Care / [facility] [place] [facility] [address] [place] [phone] Carmen Hartmann 03/31/2025 4:30 PM EST PACE Home Care / [facility] [place] [facility] [address] [place] [phone] Ashley Eastman 04/01/2025 8:30 AM EST PACE Home Care / [facility] [place] [facility] [address] [place] [phone] Carmen Hartmann 04/01/2025 1:15 PM EST [facility] [place] [facility] [place] [address] [place] [phone] 04/01/2025 4:30 PM EST PACE Home Care / [facility] [place] [facility] [address] [place] [phone] Ashley Eastman 04/02/2025 8:30 AM EST P[facility] Home Care / [facility] [place] [facility] [address] [place] [address] Carmen Hartmann 04/02/2025 4:30 PM EST PACE Home Care / [facility] [place] [facility] [address] [place] [address] Ashley Eastman 04/03/2025 8:30 AM EST P[facility] Home Care / [facility] [place] [facility] [address] [place] [address] Carmen Hartmann 04/03/2025 9:00 AM EST [facility] [facility] [place] [facility] [address] [place] [phone] 04/03/2025 4:30 PM EST P[facility] Home Care / [facility] [place] [facility] [address] [place] [phone] Ashley Eastman 04/04/2025 8:00 AM EST P[facility] Home Care / [facility] [place] [facility] [address] [place] [phone] Carmen Hartamnn 04/04/2025 9:30 AM EST P[facility] Home Care / [facility] [place] [facility] [address] [place] [address] Ralph Loyola 04/04/2025 4:30 PM EST PACE Home Care / [facility] [place] [facility] [address] [place] [phone] Ashley Eastman 04/05/2025 12:00 PM EST P[facility] Home Care / [facility] [place] [facility] [address] [place] [phone] Dena Chavez 04/06/2025 12:00 PM EST P[facility] Home [facility] / [facility] [place] [facility] [address] [place] [address] Dena Chavez 2025 8:30 AM EST P[facility] Home [facility] / [facility] [place] [facility] [address] [place] [address] Carmen Hartmann 2025 4:30 PM EST [facility] Home [facility] / [facility] [place] [facility] [address] [place] [address] Ashley Eastman 04/08/2025 8:30 AM EST P[facility] Home [facility] / [facility] [place] [facility] [address] [place] [phone] Carmen Hartmann 04/08/2025 4:30 PM EST PACE [facility] [place] [facility] [place] [facility] [address] [place] [phone] Ashley Eastman 04/09/2025 8:30 AM EST [facility] [place] [facility] [place] [facility] [address] [place] [phone] Carmen Hartmann 04/09/2025 4:30 PM EST [facility] Home [facility] / [facility] [place] [facility] [place] [facility] [address] [place] [phone] Ashley Eastman 04/10/2025 8:30 AM EST [facility] Home [facility] / [place] [facility] [place] [facility] [address] [place] [phone] Carmen Hartmann 04/10/2025 9:00 AM EST [facility] Att[place] [facility] [place] [facility] [address] [place] [address] 04/10/2025 4:30 PM EST [facility] Home [facility] / [facility] [place] [facility] [address] [place] [phone] Ashley Eastman 04/11/2025 8:00 AM EST [facility] Home [facility] / [facility] [place] [facility] [address] [place] [phone] Carmen Hartmann 04/11/2025 9:30 AM EST [facility] Home [facility] / [facility] [place] [facility] [place] [facility] [address] [place] [phone] Ralph Loyola 04/11/2025 4:30 PM EST [facility] Home [facility] / [facility] [place] [facility] [place] [facility] [address] [place] [phone] Ashley Eastman 04/12/2025 8:30 AM EST [facility] Home [facility] / [facility] [place] [facility] [place] [facility] [address] [place] [phone] Marysol Diaz 04/12/2025 12:00 PM EST [facility] Home [facility] / [facility] [place] [facility] [place] [facility] [address] [place] [phone] Natali Sanford 04/12/2025 5:30 PM EST [facility] Home [facility] / [facility] [place] [facility] [place] [facility] [address] [place] [phone] Marysol Diaz 04/15/2025 11:00 AM EST [place] [facility] [place] [facility] [address] [place] [phone] Michelle Castillo MD [address] [place] [phone] Brigette East LPN 04/17/2025 9:00 AM EST [facility] Att[facility] [facility] [place] [facility] [address] [place] [address] 04/18/2025 10:00 AM EST Clinical Support [facility] [place] [facility] [address] [place] [phone] Bethany Mccabe RN 04/24/2025 9:00 AM EST [facility] Attendance/Day [place] [facility] [place] [facility] [address] [place] [phone] 04/24/2025 11:30 AM EST Clinical Support [facility] [address] [address] 05/01/2025 9:00 AM EST P[facility] Attendance/[place] [facility] [place] [facility] [address] [address] 05/08/2025 9:00 AM EST P[facility] Attendance/Day [place] [facility] [place] [facility] [place] [address] [address] 05/09/2025 10:00 AM EST Clinical Support [facility] [place] [facility] [address] [place] [phone] Bethany Mccabe RN 05/13/2025 11:00 AM EST Office Visit [facility] [place] [facility] [address] [phone] Michelle Castillo MD [address] [place] [phone] Brigette East LPN 05/15/2025 9:00 AM EST [facility] Attendance/[place] [facility] [place] [facility] [address] [place] [phone] 05/22/2025 9:00 AM EST [facility]ACE Attendance/Day [place] [facility] [place] [facility] [place] [address] [address] 05/29/2025 9:00 AM EST [facility] Attendance/[place] [facility] [place] [facility] [address] [place] [phone] 05/30/2025 10:00 AM EST Clinical Support [facility] [address] [phone] Bethany Mccabe RN 06/05/2025 9:00 AM EST PACE Attendance/Day Center [facility] Day [address] [address] 06/10/2025 11:00 AM EST Office Visit [address] [phone] Michelle Castillo MD [address] [place] [phone] Brigette East LPN 06/12/2025 9:00 AM EST P[facility] Attendance/Day Center [facility] Day [address] [address] 06/19/2025 9:00 AM EST P[facility] Attendance/Day Center [facility] Day [address] [address] 06/20/2025 10:00 AM EST Clinical Support [address] [phone] Bethany Mccabe RN 06/26/2025 9:00 AM EDT PACE Attendance/Day Center [facility] Day [address] [address] 06/27/2025 1:20 PM EDT Office Visit Gastroenterology - [address] [facility] [address] [place] [phone] Analisa Perez, ALONSO [address] [place] [address] 07/03/2025 9:00 AM EDT P[facility] Attendance/Day Center [facility] Day [address] [address] 07/10/2025 9:00 AM EDT PACE Attendance/Day Center [facility] Day [facility] [address] [place] [address] 07/11/2025 10:00 AM EDT Clinical [place] [facility] [place] [facility] [address] [place] [address] Bethany Mccabe RN 07/17/2025 9:00 AM EDT [facility] Attendance/Day [facility] [place] [facility] [address] [place] [phone] 07/17/2025 3:30 PM EDT [facility] External Visit [facility] [address] [address] 07/24/2025 9:00 AM EDT [facility] Attendance/[facility] [place] [facility] Day [address] [address] 07/31/2025 9:00 AM EDT [facility] Attendance/[facility] [place] [facility] [place] [address] [address] 08/01/2025 10:00 AM EDT Clinical Support [facility] [place] [facility] [address] [phone] Bethany Mccabe RN 08/07/2025 9:00 AM EDT [facility] Att[facility] [facility] [place] [facility] [place] [address] [address] 08/14/2025 9:00 AM EDT [facility] [facility] [place] [facility] [address] [place] [phone] 08/21/2025 9:00 AM EDT [facility] Att[facility] [facility] [place] [facility] [address] [place] [phone] 08/22/2025 10:00 AM EDT Clinical [place] [facility] [place] [facility] [address] [place] [phone] Bethany Mccabe RN 08/28/2025 9:00 AM EDT [facility] Att[facility] [facility] [place] [facility] [address] [place] [address] 09/04/2025 9:00 AM EDT [facility] [facility] [place] [facility] [address] [place] [phone] 09/11/2025 9:00 AM EDT [facility] Att[facility] [facility] [place] [facility] [address] [place] [phone] 09/12/2025 10:00 AM EDT Clinical Support [facility] [place] [facility] [address] [place] [phone] Bethany Mccabe, HEIDI 09/18/2025 9:00 AM EDT [facility] Attendance[facility] [place] [facility] [address] [place] [phone] 09/25/2025 9:00 AM EDT [facility] Att[facility] [facility] [place] [facility] [address] [place] [phone] 10/02/2025 9:00 AM EDT [facility] [facility] [place] [facility] [address] [place] [phone] 10/03/2025 10:00 AM EDT Clinical Support [facility] [place] [facility] [address] [phone] Bethany Mccabe, HEIDI 10/09/2025 9:00 AM EDT [facility] Att[facility] [facility] [place] [facility] [address] [place] [phone] 10/24/2025 10:00 AM EDT Clinical Support [facility] [place] [facility] [address] [phone] Bethany Mccabe, HEIDI 11/14/2025 10:00 AM EDT Clinical Support [facility] [place] [facility] [address] [phone] Bethany Mccabe, RN 12/05/2025 10:00 AM EDT Clinical Support [address] [phone] Bethany Mccabe RN 12/26/2025 10:00 AM EDT Clinical Support [address] [phone] Bethany Mccabe RN 01/16/2026 10:00 AM EDT Clinical Support [address] [phone] Bethany Mccabe RN 02/06/2026 10:00 AM EDT Clinical Support [address] [phone] Bethany Mccabe RN 02/27/2026 10:00 AM EST Clinical Support [address] [phone] Bethany Mccabe RN documented as of this encounter Visit Diagnoses Diagnosis Medication management- Primary Schizophrenia in partial remission with history of multiple episodes (CMS/HCC V24, CMS/HCC V28) documented in this encounter Care Teams [employer] Relationship Specialty Start Date End Date Regulo Ivy NP [address] [place] [phone] PCP - General KELLI 06/07/24 documented as of this encounter
--- OUTSIDE RECORDS SUMMARY | 2025-02-08 09:15 | XMS_ITS | Encounter Summary ---
Author Organization [facility] Address [address] [place] [address] Care Team Providers Care Financial Management Name Role Phone Regulo Ivy NP Primary Care Provider [phone] Encounter Details Date Type Department Care Team (Late st Contact Info) Description 02/08/2025 9:15 AM EDT PACE Home Care / [facility] Home Visit [facility] [place] [facility] [address] [place] [address] Dacia Beavers Social History Tobacco Use Types Packs/Day Years [...] care for your loved ones. 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 Answer Date of Assessment Author Yes 02/03/2025 3:31 PM PARMINDERT Malachi Rehman RN * Do you have [...] Author No Risk Indicated 02/10/2025 8:39 AM PARMINDERT Naomy Masterson RN * [place] Suicide Severity Rating Scale (Screener/Recent Self-Report) Question Answer Date of Assessment Author 1. Wish to be (Past 1 Month) No 025 8:39 AM Naomy Pa RN 2. Non-Specific Active Suici sage Thoughts (Past 1 Month) No 02/10/2025 8:39 AM Naomy Pa RN 6. Suicidal Behavior (Lifetime) No 8:39 AM PARMINDERT Naomy Masterson RN documented as of this encounter Mental Status * Because of a physical, mental, or emotional condition, do you have serious difficulty concentrating, remembering, or making decisions? (5 years old or older) Answer Entry Date Author Yes 02/03/2025 3:31 PM PARMINDERT Malachi Rehman RN documented in this encounter Plan of Treatment Upcoming Encounters Date Type Department Care Team (Latest Contact Info) Description 02/12/2025 8:30 AM EDT P[facility] Home Care / [place] [facility] [place] [facility] [address] [place] [address] Carmen Hartmann 02/12/2025 4:30 PM EDT PACE Home Care / [facility] [place] [facility] [address] [place] [address] Ashley Eastman 02/13/2025 8:30 AM EDT PACE Home Care / [facility] [place] [facility] [address] [place] [address] Carmen Hartmann 02/13/2025 9:00 AM EDT [facility] [place] [facility] [address] [place] [address] 02/13/2025 4:30 PM EDT PACE Home Care / [facility] [place] [facility] [address] [place] [phone] Ashley Eastman 02/14/2025 8:00 AM EDT PACE Home Care / [facility] [place] [facility] [address] [place] [phone] Carmen Hartmann 02/14/2025 9:30 AM EDT PACE Home Care / [facility] [place] [facility] [address] [place] [phone] Ralph Loyola 02/14/2025 4:30 PM EDT PACE Home Care / [facility] Home [facility] [place] [facility] [address] [place] [address] Ashley Eastman 02/15/2025 8:30 AM EDT PACE Home Care / [facility] [place] [facility] [address] [place] [phone] Marysol Diaz 02/15/2025 12:00 PM EDT PACE Home Care / [facility] [place] [facility] [address] [place] [phone] Natali Sanford 02/15/2025 5:30 PM EDT PACE Home Care / [place] [facility] [place] [facility] [address] [place] [address] [facility] Marysol 02/16/2025 8:30 AM EST PACE Home Care / [place] [facility] [place] [facility] [place] [facility] [address] [place] [phone] [facility] Marysol 02/16/2025 12:00 PM EST PACE Home Care / [place] [facility] [place] [facility] [place] [facility] [address] [place] [phone] Natali Sanford 02/16/2025 4:30 PM EST PACE Home Care / [place] [facility] [place] [facility] [place] [facility] [address] [place] [phone] [facility] Marysol 02/16/2025 5:30 PM EST PACE Home Care / [place] [facility] [place] [facility] [place] [facility] [address] [place] [phone] [facility] Marysol 02/17/2025 8:30 AM EST PACE Home Care / [place] [facility] [place] [facility] [place] [facility] [address] [place] [phone] Carmen Hartmann 02/17/2025 11:00 AM EST [facility] [place] [facility] [address] [place] [phone] Michelle Castillo MD [address] [place] [address] 02/17/2025 4:30 PM EST P[facility] Home Care / [place] [facility] [place] [facility] [address] [place] [phone] Ashley Eastman 02/18/2025 8:30 AM EST PACE Home Care / [place] [facility] [place] [facility] [place] [facility] [address] [place] [phone] Carmen Hartmnan 02/18/2025 11:00 AM EST [facility] [place] [facility] [address] [place] [address] Michelle Castillo MD [address] [address] Brigette East LPN 02/18/2025 4:30 PM EST PACE Home Care / [place] [facility] [place] [facility] [place] [facility] [address] [place] [phone] Ashley Eastman 02/19/2025 8:30 AM EST P[facility] Home Care / [place] [facility] [place] [facility] [place] [facility] [address] [place] [phone] Carmen Hartmann 02/19/2025 4:30 PM EST PACE Home Care / [place] [facility] [place] [facility] [address] [place] [phone] Ashley Eastman 02/20/2025 8:30 AM EST PACE Home Care / [place] [facility] [place] [facility] [place] [facility] [address] [place] [phone] Carmen Hartmann 02/20/2025 9:00 AM EST [facility] [place] [facility] [place] [facility] [address] [place] [address] 02/20/2025 4:30 PM EST PACE Home Care / [place] [facility] [place] [facility] [place] [facility] [address] [place] [phone] Ashley Eastman 02/21/2025 8:00 AM EST P[facility] Home Care / [place] [facility] [place] [facility] [address] [place] [phone] Carmen Hartmann 02/21/2025 9:30 AM EST PACE Home Care / [place] [facility] [place] [facility] [address] [place] [address] Ralph Loyola 02/21/2025 4:30 PM EST PACE Home Care / [place] [facility] [place] [facility] [address] [place] [phone] Ashley Eastman 02/22/2025 12:00 PM EST PACE Home Care / [place] [facility] [place] [facility] [address] [place] [phone] Dena Chavez 02/23/2025 12:00 PM EST PACE Home Care / [place] [facility] [place] [facility] [address] [place] [phone] Dena Chavez 02/24/2025 8:30 AM EST P[facility] Home Care / [place] [facility] [place] [facility] [address] [place] [phone] Carmen Hartmann 02/24/2025 4:30 PM EST PACE Home Care / [place] [facility] [place] [facility] [address] [place] [phone] Ashley Eastman 02/25/2025 8:30 AM EST P[facility] Home Care / [place] [facility] [place] [facility] [address] [place] [phone] Carmen Hartmann 02/25/2025 4:30 PM EST PACE Home Care / [place] [facility] [place] [facility] [address] [place] [phone] Ashley Eastman 02/26/2025 8:30 AM EST P[facility] Home Care / [place] [facility] [place] [facility] [place] [facility] [address] [place] [phone] Carmen Hartmann 02/26/2025 4:30 PM EST PACE Home Care / [facility] [place] [facility] [address] [place] [address] Aslhey Eastman 02/27/2025 8:30 AM EST PACE Home Care / [place] [facility] [place] [facility] [address] [place] [phone] Carmen Hartmann 02/27/2025 9:00 AM EST [facility] [place] [facility] [address] [place] [address] 02/27/2025 4:30 PM EST PACE Home Care / [place] [facility] [place] [facility] [address] [place] [phone] Ashley Eastman 02/28/2025 8:00 AM EST PACE Home Care / [place] [facility] [place] [facility] [address] [place] [phone] Carmen Hartmann 02/28/2025 9:30 AM EST PACE Home Care / [place] [facility] [place] [facility] [place] [facility] [address] [place] [phone] Ralph Loyola 02/28/2025 4:30 PM EST PACE Home Care / [place] [facility] [place] [facility] [place] [facility] [address] [place] [phone] Ashley Eastman 03/01/2025 8:30 AM EST PACE Home Care / [place] [facility] [place] [facility] [address] [place] [phone] Marysol Diaz 03/01/2025 12:00 PM EST PACE Home Care / [place] [facility] [place] [facility] [address] [place] [phone] Natali Sanford 03/01/2025 5:30 PM EST PACE Home Care / [place] [facility] [place] [facility] [address] [place] [phone] Marysol Diaz 03/02/2025 8:30 AM EST PACE Home Care / [place] [facility] [place] [facility] [place] [facility] [address] [place] [phone] Marysol Diaz 03/02/2025 12:00 PM EST PACE Home Care / [place] [facility] [place] [facility] [address] [place] [phone] Natali Sanford 03/02/2025 4:30 PM EST PACE Home Care / [place] [facility] [place] [facility] [address] [place] [phone] Joe Marysol 03/02/2025 5:30 PM EST PACE Home Care / [place] [facility] [place] [facility] [address] [place] [phone] Joe Marysol 03/03/2025 8:30 AM EST PACE Home Care / [place] [facility] [place] [facility] [address] [place] [phone] Carmen Hartmann 03/03/2025 4:30 PM EST PACE Home Care / [place] [facility] [place] [facility] [address] [place] [phone] Ashley Eastman 03/04/2025 8:30 AM EST PACE Home Care / [place] [facility] [place] [facility] [address] [place] [phone] Carmen Hartmann 03/04/2025 4:30 PM EST PACE Home Care / [place] [facility] [place] [facility] [address] [place] [phone] Ashley Eastman 03/05/2025 8:30 AM EST PACE Home Care / [facility] [address] [place] [address] Carmen Hartmann 03/05/2025 4:30 PM EST PACE Home Care / [facility] [place] [facility] [address] [place] [address] Ashley Eastman 03/06/2025 8:30 AM EST PACE Home Care / [facility] [place] [facility] [address] [place] [phone] Carmen Hartmann 03/06/2025 9:00 AM EST [facility] [place] [facility] [address] [place] [address] 03/06/2025 4:30 PM EST PACE Home Care / [facility] [address] [place] [phone] Ashley Eastman 03/07/2025 [facility] [address] [place] [phone] Clemencia Napier, OT Schizophrenia in partial remission with history of multiple episodes (CMS/HCC V24, CMS/HCC V28) 03/07/2025 8:00 AM EST PACE Home Care / [facility] [place] [facility] [address] [place] [phone] Carmen Hartmann 03/07/2025 9:00 AM EST Clinical Support [facility] [place] [facility] [address] [place] [phone] Bethany Mccabe, HEIDI 03/07/2025 9:30 AM EST PACE Home Care / [facility] [place] [facility] [address] [place] [phone] Ralph Loyola 03/07/2025 4:30 PM EST PACE Home Care / [place] [facility] [place] [facility] [address] [place] [address] Ashley Eastman 03/08/2025 12:00 PM EST PACE Home Care / [place] [facility] [place] [facility] [place] [facility] [address] [place] [address] Dena Chavez 03/09/2025 12:00 PM EST PACE Home Care / [place] [facility] [place] [facility] [address] [place] [address] Dena Chavez 03/10/2025 8:30 AM EST PACE Home Care / [place] [facility] [place] [facility] [address] [place] [address] Carmen Hartmann 03/10/2025 4:30 PM EST PACE Home Care / [place] [facility] [place] [facility] [address] [place] [phone] Ashley Eastman 03/11/2025 8:30 AM EST PACE Home Care / [place] [facility] [place] [facility] [address] [place] [phone] Carmen Hartmann 03/11/2025 4:30 PM EST PACE Home Care / [place] [facility] [place] [facility] [address] [place] [address] Ashley Eastman 03/12/2025 8:30 AM EST PACE Home Care / [place] [facility] [place] [facility] [address] [place] [phone] Carmen Hartmann 03/12/2025 4:30 PM EST PACE Home Care / [place] [facility] [place] [facility] [address] [place] [phone] Ashley Eastman 03/13/2025 8:30 AM EST PACE Home Care / [facility] [address] [place] [address] Carmen Hartmann 03/13/2025 9:00 AM EST [facility] [place] [facility] [address] [place] [address] 03/13/2025 4:30 PM EST PACE Home Care / [facility] [facility] Visit [facility] [place] [facility] [address] [place] [address] Ashley Eastman 03/14/2025 8:00 AM EST PACE Home Care / [place] [facility] [place] [facility] [address] [place] [phone] Carmen Hartmann 03/14/2025 9:30 AM EST PACE Home Care / [place] [facility] [place] [facility] [address] [place] [phone] Ralph Loyola 03/14/2025 4:30 PM EST PACE Home Care / [place] [facility] [place] [facility] [address] [place] [phone] Ashley Eastman 03/15/2025 8:30 AM EST PACE Home Care / [place] [facility] [place] [facility] [address] [place] [phone] Marysol Diaz 03/15/2025 12:00 PM EST PACE Home Care / [place] [facility] [place] [facility] [address] [place] [phone] Natali Sanford 03/15/2025 5:30 PM EST PACE Home Care / [place] [facility] [place] [facility] [address] [place] [phone] Marysol Diaz 03/16/2025 8:30 AM EST PACE Home Care / [place] [facility] [place] [facility] [address] [place] [phone] Marysol Diaz 03/16/2025 12:00 PM EST PACE Home Care / [place] [facility] [place] [facility] [address] [place] [phone] Natali Sanford 03/16/2025 4:30 PM EST PACE Home Care / [place] [facility] [place] [facility] [address] [place] [phone] Marysol Diaz 03/16/2025 5:30 PM EST PACE Home Care / [place] [facility] [place] [facility] [address] [place] [phone] Marysol Diaz 03/17/2025 8:30 AM EST P[facility] Home Care / [place] [facility] [place] [facility] [address] [place] [phone] Carmen Hartmann 03/17/2025 4:30 PM EST PACE Home Care / [place] [facility] [place] [facility] [address] [place] [phone] Ashley Eastman 03/18/2025 8:30 AM EST P[facility] Home Care / [place] [facility] [place] [facility] [address] [place] [phone] Carmen Hartmann 03/18/2025 11:00 AM EST [facility] Visit [facility] [place] [facility] [address] [place] [phone] Michelle Castillo MD [address] [place] [address] Brigette East LPN 03/18/2025 4:30 PM EST PACE Home Care / [facility] [facility] [place] [facility] [address] [place] [phone] Ashley Eastman 03/19/2025 8:30 AM EST P[facility] Home Care / [facility] [facility] [place] [facility] [address] [place] [address] Carmen Hartmann 03/19/2025 4:30 PM EST PACE Home Care / [place] [facility] [place] [facility] [address] [place] [phone] Ashley Eastman 03/20/2025 8:30 AM EST PACE Home Care / [place] [facility] [place] [facility] [address] [place] [phone] Carmen Hartmann 03/20/2025 9:00 AM EST [facility] [facility] [place] [facility] [address] [place] [phone] 03/20/2025 4:30 PM EST PACE Home Care / [place] [facility] [place] [facility] [address] [place] [phone] Ashley Eastman 03/21/2025 8:00 AM EST P[facility] Home Care / [place] [facility] [place] [facility] [address] [place] [phone] Carmen Hartmann 03/21/2025 9:30 AM EST PACE Home Care / [place] [facility] [place] [facility] [place] [facility] [address] [place] [phone] Ralph Loyola 03/21/2025 4:30 PM EST PACE Home Care / [place] [facility] [place] [facility] [address] [place] [phone] Ashley Eastman 03/22/2025 12:00 PM EST PACE Home Care / [place] [facility] [place] [facility] [place] [facility] [address] [place] [phone] Dena Chavez 03/23/2025 12:00 PM EST PACE Home Care / [place] [facility] [place] [facility] [address] [place] [phone] Dena Chavez 03/24/2025 8:30 AM EST PACE Home Care / [place] [facility] [place] [facility] [address] [place] [phone] Carmen Hartmann 03/24/2025 9:[address] [facility] [address] [place] [address] Lakia Hou, [facility] 03/24/2025 4:30 PM EST PACE Home Care / [place] [facility] [place] [facility] [address] [place] [phone] Ashley Eastman 03/25/2025 8:30 AM EST P[facility] Home Care / [place] [facility] [place] [facility] [address] [place] [phone] Carmen Hartmann 03/25/2025 4:30 PM EST P[facility] Home Care / [place] [facility] [place] [facility] [address] [place] [phone] Ashley Eastman 03/26/2025 8:30 AM EST P[facility] Home Care / [place] [facility] [place] [facility] [address] [place] [phone] Carmen Hartmann 03/26/2025 4:30 PM EST PACE Home Care / [place] [facility] [place] [facility] [address] [place] [phone] Ashley Eastman 03/27/2025 8:30 AM EST P[facility] Home Care / [place] [facility] [place] [facility] [address] [place] [phone] Carmen Hartmann 03/27/2025 9:00 AM EST [facility] [place] [facility] [address] [place] [address] 03/27/2025 2:40 PM EST Clinical Support [facility] [address] [place] [address] 03/27/2025 4:30 PM EST PACE Home Care / [facility] [address] [place] [address] Ashley Eastman 03/28/2025 8:00 AM EST PACE Home Care / [facility] [address] [place] [address] Carmen Hartmann 03/28/2025 10:00 AM EST Clinical Support [facility] [place] [facility] [address] [place] [address] Bethany Mccabe RN 03/28/2025 4:30 PM EST PACE Home Care / [facility] [place] [facility] [address] [place] [phone] Ashley Eastman 03/29/2025 8:30 AM EST PACE Home Care / [facility] [address] [place] [phone] Marysol Diaz 03/29/2025 12:00 PM EST PACE Home Care / [place] [facility] [place] [facility] [address] [place] [phone] Natali Sanford 03/29/2025 5:30 PM EST PACE Home Care / [facility] [place] [facility] [address] [place] [phone] Marysol Diaz 03/30/2025 8:30 AM EST PACE Home Care / [place] [facility] [place] [facility] [address] [place] [phone] Marysol Diaz 03/30/2025 12:00 PM EST PACE Home Care / [place] [facility] [place] [facility] [address] [place] [phone] Natali Sanford 03/30/2025 4:30 PM EST P[facility] Home Care / [place] [facility] [place] [facility] [address] [place] [address] Marysol Diaz 03/30/2025 5:30 PM EST P[facility] Home Care / [place] [facility] [place] [facility] [address] [place] [phone] Marysol Diaz 03/31/2025 8:30 AM EST P[facility] Home Care / [place] [facility] [place] [facility] [address] [place] [phone] Carmen Hartmann 03/31/2025 4:30 PM EST P[facility] Home Care / [place] [facility] [place] [facility] [address] [place] [phone] Ashley Eastman 04/01/2025 8:30 AM EST PACE Home Care / [place] [facility] [place] [facility] [address] [place] [phone] Carmen Hartmann 04/01/2025 1:15 PM EST [place] [facility] [address] [place] [phone] 04/01/2025 4:30 PM EST P[facility] Home Care / [facility] [facility] [place] [facility] [address] [place] [phone] Ashley Eastman 04/02/2025 8:30 AM EST P[facility] Home Care / [place] [facility] [place] [facility] [address] [place] [phone] Carmen Hartmann 04/02/2025 4:30 PM EST P[facility] Home Care / [place] [facility] [place] [facility] [address] [place] [address] Ashley Eastman 04/03/2025 8:30 AM EST P[facility] Home Care / [place] [facility] [place] [facility] [address] [place] [address] Carmen Hartmann 04/03/2025 9:00 AM EST [facility] [facility] [place] [facility] [address] [place] [address] 04/03/2025 4:30 PM EST P[facility] Home Care / [place] [facility] [place] [facility] [address] [place] [address] Ashley Eastman 04/04/2025 8:00 AM EST P[facility] Home Care / [place] [facility] [place] [facility] [address] [place] [phone] Carmen Hartmann 04/04/2025 9:30 AM EST P[facility] Home Care / [facility] [facility] [place] [facility] [address] [place] [address] Ralph Loyola 04/04/2025 4:30 PM EST P[facility] Home Care / [facility] [facility] [place] [facility] [address] [place] [phone] Ashley Eastman 04/05/2025 12:00 PM EST P[facility] Home Care / [place] [facility] [place] [facility] [address] [place] [phone] Dena Chavez 04/06/2025 12:00 PM EST P[facility] Home Care / [place] [facility] [place] [facility] [address] [place] [phone] Dena Chavez 2025 8:30 AM EST P[facility] Home Care / [facility] [facility] [place] [facility] [address] [place] [address] Carmen Hartmann 2025 4:30 PM EST PACE Home Care / [facility] [place] [facility] [address] [place] [address] Ashley Eastman 04/08/2025 8:30 AM EST P[facility] Home Care / [facility] [place] [facility] [address] [place] [address] Carmen Hartmann 04/08/2025 4:30 PM EST P[facility] Home Care / [facility] [address] [place] [address] Ashley Eastman 04/09/2025 8:30 AM EST PACE Home Care / PACE Home Visit [facility] [facility] [address] [place] [phone] Carmen Hartmann 04/09/2025 4:30 PM EST [facility] / [facility] Home Visit [facility] [address] [place] [phone] Ashley Eastman 04/10/2025 8:30 AM EST [facility] Home [facility] / [facility] Visit [facility] [address] [place] [phone] Carmen Hartmann 04/10/2025 9:00 AM EST [facility] Attend[facility] [place] [facility] [address] [place] [address] 04/10/2025 4:30 PM EST [facility] Home [facility] / [facility] Home Visit [facility] [place] [facility] [address] [place] [address] Ashley Eastman 04/11/2025 8:00 AM EST [facility] Home [facility] / [facility] Home Visit [facility] [address] [place] [phone] Carmen Hartmann 04/11/2025 9:30 AM EST [facility] Home [facility] / [facility] Home Visit [facility] [address] [place] [phone] Ralph Loyola 04/11/2025 4:30 PM EST [facility] Home [facility] / [facility] Home Visit [facility] [address] [place] [phone] Ashley Eastman 04/12/2025 8:30 AM EST [facility] Home [facility] / [facility] Home Visit [facility] [address] [place] [phone] Marysol Diaz 04/12/2025 12:00 PM EST [facility] Home [facility] / [facility] Home Visit [facility] [address] [place] [phone] Natali Sanford 04/12/2025 5:30 PM EST [facility] / [facility] Home Visit [facility] [address] [place] [phone] Marysol Diaz 04/15/2025 11:00 AM EST Office Visit [facility] [place] [facility] [address] [place] [phone] Michelle Castillo MD [address] [place] [phone] Brigette East LPN 04/17/2025 9:00 AM EST [facility] Att[facility] [address] [place] [address] 04/18/2025 10:00 AM EST Clinical Support [facility] [place] [facility] [address] [place] [address] Bethany Mccabe RN 04/24/2025 9:00 AM EST [facility] Attendance/[facility] [place] [facility] [address] [place] [phone] 04/24/2025 11:30 AM EST Clinical Support [facility] [address] [address] 05/01/2025 9:00 AM EST PACE Attendance/Day Center [facility] P[facility] Day [address] [address] 05/08/2025 9:00 AM EST [facility] Attendance[facility] [place] [facility] [address] [place] [phone] 05/09/2025 10:00 AM EST Clinical Support [facility] [place] [facility] [address] [place] [phone] Bethany Mccabe RN 05/13/2025 11:00 AM EST Office Visit [facility] P[facility] [address] [phone] Michelle Castillo MD [address] [place] [phone] Brigette East LPN 05/15/2025 9:00 AM EST [facility] Attendance[facility] [place] [facility] [address] [address] 05/22/2025 9:00 AM EST [facility] Attendance[facility] [place] [facility] [address] [place] [phone] 05/29/2025 9:00 AM EST [facility] Attendance/[facility] [place] [facility] [address] [place] [phone] 05/30/2025 10:00 AM EST Clinical Support [facility] [place] [facility] [address] [place] [phone] Bethany Mccabe RN 06/05/2025 9:00 AM EST [facility] Att[facility] [place] [facility] [address] [phone] 06/10/2025 11:00 AM EST Office Visit [address] [phone] Michelle Castillo MD [address] [address] Brigette East LPN 06/12/2025 9:00 AM EST [facility] Attendance/Day Center [facility] Day [address] [address] 06/19/2025 9:00 AM EST [facility] Attendance/Day Center [address] [address] 06/20/2025 10:00 AM EST Clinical Support [address] [phone] Bethany Mccabe RN 06/26/2025 9:00 AM EDT [facility] Attendance/Day Center [facility] Day [address] [address] 06/27/2025 1:20 PM EDT Office Visit Gastroenterology - [address] [phone] Analisa Perez, ALONSO [address] [place] [address] 07/03/2025 9:00 AM EDT [facility] Attendance/Day Center [facility] Day [address] [address] 07/10/2025 9:00 AM EDT P[facility] Attendance/Day Center [facility] P[facility] Day [address] [address] 07/11/2025 10:00 AM EDT Clinical Support [facility] [address] [phone] Bethany Mccabe RN 07/17/2025 9:00 AM EDT [facility] Att[facility] [facility] [place] [facility] [address] [place] [phone] 07/17/2025 3:30 PM EDT P[facility] External Visit [facility]ha [facility] [place] [address] [place] [phone] 07/24/2025 9:00 AM EDT [facility] Att[facility] [facility] [place] [facility] [address] [place] [phone] 07/31/2025 9:00 AM EDT [facility] Att[facility] [facility] [place] [facility] [address] [place] [phone] 08/01/2025 10:00 AM EDT Clinical Support [facility] [place] [facility] [address] [place] [phone] Bethany Mccabe RN 08/07/2025 9:00 AM EDT [facility] Att[facility] [facility] [place] [facility] [address] [place] [phone] 08/14/2025 9:00 AM EDT [facility] Att[facility] [facility] [place] [facility] [address] [place] [phone] 08/21/2025 9:00 AM EDT [facility] Att[facility] [facility] [place] [facility] [address] [place] [phone] 08/22/2025 10:00 AM EDT Clinical Support [facility] [place] [facility] [address] [place] [phone] Bethany Mccabe RN 08/28/2025 9:00 AM EDT [facility] Att[facility] [facility] [place] [facility] [address] [place] [phone] 09/04/2025 9:00 AM EDT [facility] Att[facility] [place] [facility] [address] [place] [phone] 09/11/2025 9:00 AM EDT [facility] [facility] [place] [facility] [address] [place] [phone] 09/12/2025 10:00 AM EDT Clinical Support [facility] [place] [facility] [address] [place] [phone] Bethany Mccabe RN 09/18/2025 9:00 AM EDT [facility] [place] [facility] [address] [place] [phone] 09/25/2025 9:00 AM EDT [facility] [place] [facility] [address] [place] [phone] 10/02/2025 9:00 AM EDT [facility] [place] [facility] [address] [place] [phone] 10/03/2025 10:00 AM EDT Clinical Support [facility] [place] [facility] [address] [phone] Bethany Mccabe RN 10/09/2025 9:00 AM EDT [facility] [place] [facility] [address] [place] [phone] 10/24/2025 10:00 AM EDT Clinical Support [facility] [place] [facility] [address] [address] Bethany Mccabe, HEIDI 11/14/2025 10:00 AM EDT Clinical Support [facility] [address] [place] [phone] Bethany Mccabe, RN 12/05/2025 10:00 AM EDT Clinical Support [facility] [place] [facility] [address] [place] [phone] Bethany Mccabe, RN 12/26/2025 10:00 AM EDT Clinical Support [facility] [place] [facility] [address] [place] [phone] Bethany Mccabe RN 01/16/2026 10:00 AM EDT Clinical Support [address] [phone] Bethany Mccabe, HEIDI 02/06/2026 10:00 AM EDT Clinical Support [address] [phone] Bethany Mccabe RN 02/27/2026 10:00 AM EST Clinical Support [address] [phone] Bethany Mccabe, RN documented as of this encounter Visit Diagnoses Not on filedocumented in this encounter Care Teams Financial Management Relationship Specialty Start Date End Date Regulo Ivy NP [address] [place] [phone] PCP - General [facility] 06/07/24 documented as of this encounter
--- OUTSIDE RECORDS SUMMARY | 2025-02-08 12:00 | XMS_ITS | Encounter Summary ---
Author Organization [facility] Address [address] [place] [address] Care Team Providers Care Distribution Center Manager Name Role Phone Regulo Ivy NP Primary Care Provider [phone] Encounter Details Date Type Department Care Team (Late st Contact Info) Description 02/08/2025 12:00 PM EDT PACE Home Care / PACE Home Visit [facility] In [facility] [address] [place] [address] Dena Chavez Social History Tobacco Use Types Packs/Day Years [...] ed Within the last 3 months, sadie w many times did you visit the emergency [...] for your loved ones. For example, children counselor or elderly care for an older adult? [...] 02/10/2025 8:39 AM Naomy Pa RN * Watson Suicide Severity Rating Scale (Screener/Recent Self-Report) Question [...] [facility] Services [address] [place] [address] Carmen Hartmann 02/12/2025 4:30 PM EDT PACE Home Care / PACE Home Visit [facility] [address] [place] [address] Ashley Eastman 02/13/2025 8:30 AM EDT PACE Home Care / PACE Home Visit [facility] [address] [place] [address] Carmen Hartmann 02/13/2025 9:00 AM EDT [facility] Attendance/[facility] [place] [facility] [address] [place] [address] 02/13/2025 4:30 PM EDT PACE Home Care / PACE Home Visit [facility] [place] [facility] [address] [place] [phone] Ashley Eastman 02/14/2025 8:00 AM EDT PACE Home Care / PACE Home Visit [facility] [address] [place] [phone] Carmen Hartmann 02/14/2025 9:30 AM EDT PACE Home Care / PACE Home Visit [facility] [place] [facility] [address] [place] [phone] Ralph Loyola 02/14/2025 4:30 PM EDT PACE Home Care / [facility] [address] [place] [phone] Ashley Eastman 02/15/2025 8:30 AM EDT PACE Home Care / [facility] [place] [facility] [address] [place] [phone] Marysol Diaz 02/15/2025 12:00 PM EDT PACE Home Care / [facility] [place] [facility] [address] [place] [phone] Natali Sanford 02/15/2025 5:30 PM EDT PACE Home Care / [facility] [place] [facility] [address] [place] [address] Joe Marysol 02/16/2025 8:30 AM EST PACE Home Care / [facility] [place] [facility] [address] [place] [phone] [facility] 02/16/2025 12:00 PM EST PACE Home Care / [facility] [place] [facility] [address] [place] [phone] Natali Sanford 02/16/2025 4:30 PM EST PACE Home Care / [facility] [place] [facility] [address] [place] [phone] [facility] Marysol 02/16/2025 5:30 PM EST PACE Home Care / [facility] [place] [facility] [address] [place] [phone] [facility] Marysol 02/17/2025 8:30 AM EST P[facility] Home Care / [facility] [place] [facility] [address] [place] [phone] Carmen Hartmann 02/17/2025 11:00 AM EST [facility] [address] [place] [phone] Michelle Castillo MD [address] [place] [phone] 02/17/2025 4:30 PM EST PACE Home Care / [facility] [place] [facility] [address] [place] [phone] Ashley Eastman 02/18/2025 8:30 AM EST PACE Home Care / [facility] Home [facility] [place] [facility] [address] [place] [phone] Carmen Hartmann 02/18/2025 11:00 AM EST Office Visit [facility] [place] [facility] [address] [place] [address] Michelle Castillo MD [address] [address] Brigette East LPN 02/18/2025 4:30 PM EST PACE Home Care / [facility] Home Visit [facility] [place] [facility] [address] [place] [phone] Ashley Eastman 02/19/2025 8:30 AM EST P[facility] Home Care / [facility] Home [facility] [place] [facility] [address] [place] [phone] Carmen Hartmann 02/19/2025 4:30 PM EST PACE Home Care / [facility] Home Visit [facility] [place] [facility] [address] [place] [phone] Ashley Eastman 02/20/2025 8:30 AM EST PACE Home Care / [facility] Home Visit [facility] [place] [facility] [address] [place] [phone] Carmen Hartmann 02/20/2025 9:00 AM EST [facility] [facility] [place] [facility] [address] [place] [address] 02/20/2025 4:30 PM EST PACE Home Care / [facility] [place] [facility] [address] [place] [phone] Ashley Eastman 02/21/2025 8:00 AM EST P[facility] Home Care / [facility] Home Visit [facility] [place] [facility] [address] [place] [phone] Carmen Hartmann 02/21/2025 9:30 AM EST PACE Home Care / [facility] [place] [facility] [address] [place] [phone] Ralph Loyola 02/21/2025 4:30 PM EST PACE Home Care / [facility] Visit [facility] [place] [facility] [address] [place] [phone] Ashley Eastman 02/22/2025 12:00 PM EST PACE Home Care / [facility] Visit [facility] [place] [facility] [address] [place] [phone] Dena Chavez 02/23/2025 12:00 PM EST P[facility] Home Care / [facility] Home Visit [facility] [place] [facility] [address] [place] [phone] Dena Chavez 02/24/2025 8:30 AM EST PACE Home Care / [facility] [place] [facility] [address] [place] [phone] Carmen Hartmann 02/24/2025 4:30 PM EST PACE Home Care / [facility] [place] [facility] [address] [place] [phone] Ashley Eastman 02/25/2025 8:30 AM EST PACE Home Care / [facility] Home Visit [facility] [place] [facility] [address] [place] [phone] Carmen Hartmann 02/25/2025 4:30 PM EST PACE Home Care / [facility] Visit [facility] [place] [facility] [address] [place] [phone] Ashley Eastman 02/26/2025 8:30 AM EST PACE Home Care / [facility] Home [facility] [place] [facility] [address] [place] [phone] Carmen Hartmann 02/26/2025 4:30 PM EST PACE Home Care / [facility] Home Visit [facility] [place] [facility] [address] [place] [phone] Ashley Eastman 02/27/2025 8:30 AM EST PACE Home Care / [facility] Home Visit [facility] [place] [facility] [address] [place] [phone] Carmen Hartmann 02/27/2025 9:00 AM EST [facility] Attendance[facility] [place] [facility] [address] [place] [phone] 02/27/2025 4:30 PM EST PACE Home Care / [facility] Home Visit [facility] [place] [facility] [address] [place] [phone] Ashley Eastman 02/28/2025 8:00 AM EST PACE Home Care / [facility] [address] [place] [phone] Carmen Hartmann 02/28/2025 9:30 AM EST PACE Home Care / [facility] Visit [facility] [place] [facility] [address] [place] [phone] Ralph Loyola 02/28/2025 4:30 PM EST PACE Home Care / [facility] Home Visit [facility] [place] [facility] [address] [place] [phone] Ashley Eastman 03/01/2025 8:30 AM EST PACE Home Care / [facility] [place] [facility] [address] [place] [phone] Marysol Diaz 03/01/2025 12:00 PM EST PACE Home Care / [facility] Home Visit [facility] [place] [facility] [address] [place] [phone] Natali Sanford 03/01/2025 5:30 PM EST PACE Home Care / [facility] Home Visit [facility] [place] [facility] [address] [place] [phone] Marysol Diaz 03/02/2025 8:30 AM EST PACE Home Care / [facility] Home Visit [facility] [place] [facility] [address] [place] [phone] Marysol iDaz 03/02/2025 12:00 PM EST PACE Home Care / [facility] Home Visit [facility] [place] [facility] [address] [place] [phone] Natali Sanford 03/02/2025 4:30 PM EST PACE Home Care / [facility] [place] [facility] [address] [place] [phone] Marysol Diaz 03/02/2025 5:30 PM EST PACE Home Care / [facility] Visit [facility] [place] [facility] [address] [place] [phone] Marysol Diaz 03/03/2025 8:30 AM EST PACE Home Care / [facility] Home Visit [facility] [place] [facility] [address] [place] [phone] Carmen Hartmann 03/03/2025 4:30 PM EST PACE Home Care / [facility] Visit [facility] [place] [facility] [address] [place] [phone] Ashley Eastman 03/04/2025 8:30 AM EST PACE Home Care / [facility] Home Visit [facility] [place] [facility] [address] [place] [phone] Carmen Hartmann 03/04/2025 4:30 PM EST PACE Home Care / [facility] Visit [facility] [place] [facility] [address] [place] [phone] Ashley Eastman 03/05/2025 8:30 AM EST PACE Home Care / PACE Home Visit [facility] [address] [place] [address] Carmen Hartmann 03/05/2025 4:30 PM EST PACE Home Care / PACE Home Visit [facility] [address] [place] [phone] Ashley Eastman 03/06/2025 8:30 AM EST PACE Home Care / PACE Home Visit [facility] [address] [place] [phone] Carmen Hartmann 03/06/2025 9:00 AM EST [facility] Attendance[facility] [place] [facility] [address] [place] [address] 03/06/2025 4:30 PM EST PACE Home Care / PACE Home Visit [facility] [address] [place] [phone] Ashley Eastman 03/07/2025 Lab [facility] MA Occupational Therapy [address] [place] [phone] Clemencia Napier, ADITYA Schizophrenia in partial remission with history of multiple episodes (CMS/HCC V24, CMS/HCC V28) 03/07/2025 8:00 AM EST PACE Home Care / PACE Home Visit [facility] [address] [place] [address] Carmen Hartmann 03/07/2025 9:00 AM EST Clinical Support [facility] [place] [facility] [address] [place] [address] Bethany Mccabe, HEIDI 03/07/2025 9:30 AM EST PACE Home Care / PACE Home Visit [facility] [address] [place] [phone] Ralph Loyola 03/07/2025 4:30 PM EST PACE Home Care / [facility] Visit [facility] [address] [place] [phone] Ashley Eastman 03/08/2025 12:00 PM EST PACE Home Care / [facility] Home Visit [facility] [address] [place] [phone] Dena Chavez 03/09/2025 12:00 PM EST PACE Home Care / [facility] Home Visit [facility] [place] [facility] [address] [place] [phone] Dena Chavez 03/10/2025 8:30 AM EST PACE Home Care / [facility] Home Visit [facility] [address] [place] [phone] Carmen Hartmann 03/10/2025 4:30 PM EST PACE Home Care / [facility] Visit [facility] [place] [facility] [address] [place] [phone] Ashley Eastman 03/11/2025 8:30 AM EST PACE Home Care / [facility] Visit [facility] [place] [facility] [address] [place] [phone] Carmen Hartmann 03/11/2025 4:30 PM EST PACE Home Care / [facility] Home Visit [facility] [place] [facility] [address] [place] [phone] Ashley Eastman 03/12/2025 8:30 AM EST PACE Home Care / [facility] Home Visit [facility] [place] [facility] [address] [place] [phone] Carmen Hartmann 03/12/2025 4:30 PM EST PACE Home Care / [facility] Home Visit [facility] [place] [facility] [address] [place] [phone] Ashley Eastman 03/13/2025 8:30 AM EST PACE Home Care / [facility] Home Visit [facility] [place] [facility] [address] [place] [address] Carmen Hartmann 03/13/2025 9:00 AM EST [facility] Attendance/[facility] [place] [facility] [address] [place] [address] 03/13/2025 4:30 PM EST PACE Home Care / [facility] Visit [facility] [place] [facility] [address] [place] [address] Ashley Eastman 03/14/2025 8:00 AM EST PACE Home Care / [facility] Home Visit [facility] [place] [facility] [address] [place] [phone] Carmen Hartmann 03/14/2025 9:30 AM EST PACE Home Care / [facility] Visit [facility] [place] [facility] [address] [place] [phone] Ralph Loyola 03/14/2025 4:30 PM EST PACE Home Care / [facility] Visit [facility] [place] [facility] [address] [place] [phone] Ashley Eastman 03/15/2025 8:30 AM EST PACE Home Care / [facility] Home Visit [facility] [place] [facility] [address] [place] [phone] Marysol Diaz 03/15/2025 12:00 PM EST PACE Home Care / [facility] Visit [facility] [address] [place] [phone] Natali Sanford 03/15/2025 5:30 PM EST PACE Home Care / [facility] Visit [facility] [place] [facility] [address] [place] [phone] Marysol Diaz 03/16/2025 8:30 AM EST PACE Home Care / [facility] [address] [place] [phone] Marysol Diaz 03/16/2025 12:00 PM EST PACE Home Care / [facility] [address] [place] [phone] Natali Sanford 03/16/2025 4:30 PM EST PACE Home Care / [facility] [address] [place] [phone] Marysol Diaz 03/16/2025 5:30 PM EST PACE Home Care / [facility] [address] [place] [phone] Marysol Diaz 03/17/2025 8:30 AM EST PACE Home Care / [facility] [address] [place] [phone] Carmen Hartmann 03/17/2025 4:30 PM EST PACE Home Care / [facility] [address] [place] [phone] Ashley Eastman 03/18/2025 8:30 AM EST PACE Home Care / [facility] [address] [place] [phone] Carmen Hartmann 03/18/2025 11:00 AM EST [facility] Visit [facility] [place] [facility] [address] [place] [phone] Michelle Castillo MD [address] [place] [phone] Brigette East LPN 03/18/2025 4:30 PM EST PACE Home Care / [facility] [address] [place] [phone] Ashley Eastman 03/19/2025 8:30 AM EST PACE Home Care / [facility] [address] [place] [address] Carmen Hartmann 03/19/2025 4:30 PM EST PACE Home Care / [facility] [address] [place] [address] Ashley Eastman 03/20/2025 8:30 AM EST PACE Home Care / [facility] [address] [place] [address] Carmen Hartmann 03/20/2025 9:00 AM EST [facility] [place] [facility] [address] [place] [address] 03/20/2025 4:30 PM EST PACE Home Care / [facility] [address] [place] [address] Ashley Eastman 03/21/2025 8:00 AM EST PACE Home Care / [facility] [address] [place] [phone] Carmen Hartmann 03/21/2025 9:30 AM EST PACE Home Care / [facility] [address] [place] [address] Ralph Loyola 03/21/2025 4:30 PM EST PACE Home Care / [facility] [address] [place] [phone] Ashley Eastman 03/22/2025 12:00 PM EST PACE Home Care / [facility] [place] [facility] [address] [place] [phone] Dena Chavez 03/23/2025 12:00 PM EST PACE Home Care / [facility] Visit [facility] [address] [place] [phone] Dena Chavez 03/24/2025 8:30 AM EST PACE Home Care / [facility] [address] [place] [phone] Carmen Hartmann 03/24/2025 9:45 AM EST Appointment [facility] Xray [address] [place] [address] Lakia Hou, [facility]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 03/24/2025 4:30 PM EST PACE Home Care / [facility] [address] [place] [phone] Ashley Eastman 03/25/2025 8:30 AM EST PACE Home Care / [facility] Visit [facility] [address] [place] [phone] Carmen Hartmann 03/25/2025 4:30 PM EST PACE Home Care / [facility] Visit [facility] [address] [place] [phone] Ashley Eastman 03/26/2025 8:30 AM EST PACE Home Care / [facility] Visit [facility] [address] [place] [phone] Carmen Hartmann 03/26/2025 4:30 PM EST PACE Home Care / [facility] Visit [facility] [place] [facility] [address] [place] [phone] Ashley Eastman 03/27/2025 8:30 AM EST PACE Home Care / [facility] Visit [facility] [address] [place] [phone] Carmen Hartmann 03/27/2025 9:00 AM EST [facility] Attendance[facility] [place] [facility] [address] [place] [address] 03/27/2025 2:40 PM EST Clinical Support [facility] [place] [address] [place] [address] 03/27/2025 4:30 PM EST PACE Home Care / PACE Home Visit [facility] [address] [place] [address] Ashley Eastman 03/28/2025 8:00 AM EST PACE Home Care / PACE Home Visit [facility] [address] [place] [address] Carmen Hartmann 03/28/2025 10:00 AM EST Clinical Support [facility] [place] [facility] [address] [place] [address] Bethany Mccabe RN 03/28/2025 4:30 PM EST PACE Home Care / PACE Home Visit [facility] [address] [place] [phone] Ashley Eastman 03/29/2025 8:30 AM EST PACE Home Care / PACE Home Visit [facility] [address] [place] [phone] Marysol Diaz 03/29/2025 12:00 PM EST PACE Home Care / [facility] [address] [place] [address] Natali Sanford 03/29/2025 5:30 PM EST PACE Home Care / [facility] [address] [place] [phone] Marysol Diaz 03/30/2025 8:30 AM EST PACE Home Care / [facility] Visit [facility] [address] [place] [phone] Marysol Diaz 03/30/2025 12:00 PM EST PACE Home Care / [facility] [place] [facility] [address] [place] [address] Natali Sanford 03/30/2025 4:30 PM EST PACE Home Care / [facility] [place] [facility] [address] [place] [address] Marysol Diaz 03/30/2025 5:30 PM EST PACE Home Care / [facility] [place] [facility] [address] [place] [phone] Marysol Diaz 03/31/2025 8:30 AM EST PACE Home Care / [facility] [place] [facility] [address] [place] [phone] Carmen Hartmann 03/31/2025 4:30 PM EST PACE Home Care / [facility] [place] [facility] [address] [place] [phone] Ashley Eastman 04/01/2025 8:30 AM EST PACE Home Care / [facility] [place] [facility] [address] [place] [phone] Carmen Hartmann 04/01/2025 1:15 PM EST [facility] Visit [facility] [address] [place] [address] 04/01/2025 4:30 PM EST PACE Home Care / [facility] [address] [place] [phone] Ashley Eastman 04/02/2025 8:30 AM EST PACE Home Care / [facility] [place] [facility] [address] [place] [phone] Carmen Hartmann 04/02/2025 4:30 PM EST PACE Home Care / [facility] [place] [facility] [address] [place] [address] Ashley Eastman 04/03/2025 8:30 AM EST PACE Home Care / [facility] [place] [facility] [address] [place] [address] Carmen Hartmann 04/03/2025 9:00 AM EST [facility] [facility] [place] [facility] [address] [place] [address] 04/03/2025 4:30 PM EST PACE Home Care / [facility] [place] [facility] [address] [place] [address] Ashley Eastman 04/04/2025 8:00 AM EST P[facility] Home Care / [facility] [place] [facility] [address] [place] [address] Carmen Hartmann 04/04/2025 9:30 AM EST P[facility] Home Care / [facility] [address] [place] [address] Ralph Loyola 04/04/2025 4:30 PM EST P[facility] Home Care / [facility] [place] [facility] [address] [place] [phone] Ashley Eastman 04/05/2025 12:00 PM EST P[facility] Home Care / [facility] [place] [facility] [address] [place] [phone] Dena Chavez 04/06/2025 12:00 PM EST PACE Home Care / [facility] [place] [facility] [address] [place] [phone] Dena Chavez 2025 8:30 AM EST PACE Home Care / P[facility] Home Visit [facility] [address] [place] [address] Carmen Hartmann 2025 4:30 PM EST PACE Home Care / P[facility] Home Visit [facility] [address] [place] [address] Ashley Eastman 04/08/2025 8:30 AM EST PACE Home Care / [facility] [place] [facility] [address] [place] [address] Carmen Hartmann 04/08/2025 4:30 PM EST PACE Home Care / [facility] Visit [facility] [place] [facility] [address] [place] [address] Ashley Eastman 04/09/2025 8:30 AM EST PACE Home Care / [facility] Visit [facility] [place] [facility] [address] [place] [address] Carmen Hartmann 04/09/2025 4:30 PM EST PACE Home Care / P[facility] Home Visit [facility] [address] [place] [address] Ashley Eastman 04/10/2025 8:30 AM EST PACE Home Care / P[facility] Home Visit [facility] [address] [place] [address] Carmen Hartmann 04/10/2025 9:00 AM EST [facility] Att[facility] [place] [facility] [address] [place] [address] 04/10/2025 4:30 PM EST P[facility] Home Care / [facility] [place] [facility] [address] [phone] Ashley Eastman 04/11/2025 8:00 AM EST [facility] / [facility] [address] [place] [phone] Carmen Hartmann 04/11/2025 9:30 AM EST [facility] Home [facility] / [facility] Visit [facility] [address] [place] [phone] Ralph Loyola 04/11/2025 4:30 PM EST [facility] Home [facility] / [facility] [address] [place] [phone] Ashley Eastman 04/12/2025 8:30 AM EST [facility] Home [facility] / [facility] [address] [place] [phone] Marysol Diaz 04/12/2025 12:00 PM EST [facility] / [facility] [address] [place] [phone] Natali Sanford 04/12/2025 5:30 PM EST [facility] / [facility] [address] [place] [phone] Marysol Diaz 04/15/2025 11:00 AM EST [facility] Visit [facility] [place] [facility] [address] [place] [phone] Michelle Castillo MD [address] [place] [phone] Brigette East LPN 04/17/2025 9:00 AM EST [facility] [place] [facility] [address] [place] [phone] 04/18/2025 10:00 AM EST Clinical Support [facility] [place] [facility] [address] [place] [phone] Bethany Mccabe RN 04/24/2025 9:00 AM EST [facility] [place] [facility] [address] [place] [phone] 04/24/2025 11:30 AM EST Clinical Support [facility] [address] [phone] 05/01/2025 9:00 AM EST PACE Attendance/Day Center [facility] P[facility] Day [address] [phone] 05/08/2025 9:00 AM EST [facility] Attendance[facility] Day [facility] [address] [place] [phone] 05/09/2025 10:00 AM EST Clinical Support [facility] PACE [address] [phone] Bethany Mccabe RN 05/13/2025 11:00 AM EST Office Visit [facility] [address] [phone] Michelle Castillo MD [address] [place] [phone] Brigette East LPN 05/15/2025 9:00 AM EST P[facility] Attendance/Day Center [facility] Day [address] [phone] 05/22/2025 9:00 AM EST [facility] Attendance[facility] P[facility] Day [address] [phone] 05/29/2025 9:00 AM EST [facility] Attendance[facility] P[facility] Day [address] [phone] 05/30/2025 10:00 AM EST Clinical Support [facility] [address] [phone] Bethany Mccabe RN 06/05/2025 9:00 AM EST [facility] Attend[facility] P[facility] Day [address] [phone] 06/10/2025 11:00 AM EST Office Visit [facility] P[facility] [address] [phone] Michelle Castillo MD [address] [phone] Brigette East LPN 06/12/2025 9:00 AM EST P[facility] Attendance/Day Center [facility] Day [facility] [address] [place] [phone] 06/19/2025 9:00 AM EST P[facility] Attendance/Day Center [facility] PACE Day [address] [phone] 06/20/2025 10:00 AM EST Clinical Support [address] [phone] Bethany Mccabe RN 06/26/2025 9:00 AM EDT [facility] Attendance/Day Center [facility] Day [address] [phone] 06/27/2025 1:20 PM EDT Office Visit Gastroenterology - [address] [place] [phone] Analisa Perez, ALONSO [address] [place] [phone] 07/03/2025 9:00 AM EDT [facility] Attendance/Day Center [facility] PACE Day [address] [address] 07/10/2025 9:00 AM EDT [facility] Attendance/Day Center [facility] PACE Day [address] [phone] 07/11/2025 10:00 AM EDT Clinical Support [address] [phone] Bethany Mccabe RN 07/17/2025 9:00 AM EDT [facility] [place] [facility] [address] [place] [address] 07/17/2025 3:30 PM EDT [facility] External Visit [facility] [place] [address] [place] [phone] 07/24/2025 9:00 AM EDT [facility] Att[facility] [facility] [place] [facility] [address] [place] [phone] 07/31/2025 9:00 AM EDT [facility] [place] [facility] [address] [place] [phone] 08/01/2025 10:00 AM EDT Clinical Support [facility] [place] [facility] [address] [place] [phone] Bethany Mccabe RN 08/07/2025 9:00 AM EDT [facility] [place] [facility] [address] [place] [phone] 08/14/2025 9:00 AM EDT [facility] [place] [facility] [address] [place] [phone] 08/21/2025 9:00 AM EDT [facility] [place] [facility] [address] [place] [phone] 08/22/2025 10:00 AM EDT Clinical Support [facility] [place] [facility] [address] [place] [phone] Bethany Mccabe RN 08/28/2025 9:00 AM EDT [facility] [facility] [place] [facility] [address] [place] [phone] 09/04/2025 9:00 AM EDT [facility] [facility] [place] [facility] [address] [place] [phone] 09/11/2025 9:00 AM EDT [facility] [place] [facility] [address] [place] [phone] 09/12/2025 10:00 AM EDT [facility] Support [facility] [place] [facility] [address] [place] [phone] Bethany Mccabe, HEIDI 09/18/2025 9:00 AM EDT [facility] [place] [facility] [address] [place] [phone] 09/25/2025 9:00 AM EDT [facility] [place] [facility] [address] [place] [phone] 10/02/2025 9:00 AM EDT [facility] [place] [facility] [address] [place] [phone] 10/03/2025 10:00 AM EDT Clinical Support [facility] [place] [facility] [address] [place] [phone] Bethany Mccabe RN 10/09/2025 9:00 AM EDT [facility] [facility] [place] [facility] [address] [phone] 10/24/2025 10:00 AM EDT Clinical Support [facility] [address] [phone] Bethany Mccabe, HEIDI 11/14/2025 10:00 AM EDT Clinical Support [facility] [place] [facility] [address] [place] [phone] Bethany Mccabe, RN 12/05/2025 10:00 AM EDT Clinical Support [facility] [place] [facility] [address] [place] [phone] Bethany Mccabe, RN 12/26/2025 10:00 AM EDT [facility] [place] [facility] [address] [place] [phone] Bethany Mccabe RN 01/16/2026 10:00 AM EDT Clinical Support [address] [phone] Bethany Mccabe, HEIDI 02/06/2026 10:00 AM EDT Clinical Support [address] [phone] Btehany Mccabe, HEIDI 02/27/2026 10:00 AM EST Clinical Support [address] [phone] Bethany Mccabe, RN documented as of this encounter Visit Diagnoses Not on filedocumented in this encounter Care Teams Distribution Center Manager Relationship Specialty Start Date End Date Regulo Ivy NP [address] [place] [phone] PCP - General [facility] 06/07/24 documented as of this encounter
--- OUTSIDE RECORDS SUMMARY | 2025-02-08 17:00 | XMS_ITS | Encounter Summary ---
Author Organization 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 For example, exceptional children teacher or elderly care for an [...] 8:39 AM PARMINDERT Naomy Masterson RN * [place] Suicide Severity Rating Scale (Screener/Recent Self-Report) Question [...] In [facility] Nursing [facility] Aide Services [address] [place] [address] Carmen Hartmann 02/12/2025 4:30 PM EDT PACE Home Care / PACE Home Visit [facility] [place] [facility] [address] [place] [address] Ashley Eastman 02/13/2025 8:30 AM EDT PACE Home Care / PACE Home Visit [facility] [place] [facility] [address] [place] [address] Carmen Hartmann 02/13/2025 9:00 AM EDT PACE Attendance/[facility] [place] [facility] [address] [place] [address] 02/13/2025 4:30 PM EDT PACE Home Care / PACE Home Visit [facility] [place] [facility] [address] [place] [phone] Ashley Eastman 02/14/2025 8:00 AM EDT PACE Home Care / PACE Home Visit [facility] [place] [facility] [address] [place] [phone] Carmen Hartmann 02/14/2025 9:30 AM EDT PACE Home Care / PACE Home Visit [facility] [place] [facility] [address] [place] [phone] Ralph Loyola 02/14/2025 4:30 PM EDT PACE Home Care / [facility] Home Visit [facility] [place] [facility] [address] [place] [address] Ashley Eastman 02/15/2025 8:30 AM EDT PACE Home Care / PACE Home Visit [facility] [place] [facility] [address] [place] [phone] Marysol Diaz 02/15/2025 12:00 PM EDT PACE Home Care / PACE Home Visit [facility] [place] [facility] [address] [place] [phone] Natali Sanford 02/15/2025 5:30 PM EDT PACE Home Care / [facility] Home Visit [facility] [place] [facility] [address] [place] [address] [facility] Marysol 02/16/2025 8:30 AM EST PACE Home Care / [facility] Visit [facility] [place] [facility] [address] [place] [phone] [facility] Marysol 02/16/2025 12:00 PM EST PACE Home Care / [place] Home Visit [facility] [place] [facility] [address] [place] [phone] Natali Sanford 02/16/2025 4:30 PM EST PACE Home Care / [place] Home Visit [facility] [place] [facility] [address] [place] [phone] [facility] Marysol 02/16/2025 5:30 PM EST PACE Home Care / [place] Home Visit [facility] [place] [facility] [address] [place] [phone] [facility] Marysol 02/17/2025 8:30 AM EST PACE Home Care / [place] Home Visit [facility] [place] [facility] [address] [place] [phone] Carmen Hartmann 02/17/2025 11:00 AM EST [facility] Visit [facility] [place] [facility] [address] [place] [phone] Michelle Castillo MD [address] [place] [address] 02/17/2025 4:30 PM EST PACE Home Care / [facility] Home Visit [facility] [place] [facility] [address] [place] [phone] Ashley Eastman 02/18/2025 8:30 AM EST PACE Home Care / [place] Home Visit [facility] [place] [facility] [address] [place] [phone] Carmen Hartmann 02/18/2025 11:00 AM EST [facility] Visit [facility] [place] [facility] [address] [place] [address] Michelle Castillo MD [address] [address] Brigette East LPN 02/18/2025 4:30 PM EST PACE Home Care / [place] Home Visit [facility] [place] [facility] [address] [place] [phone] Ashley Eastman 02/19/2025 8:30 AM EST PACE Home Care / [facility] Home Visit [facility] [place] [facility] [address] [place] [phone] Carmen Hartmann 02/19/2025 4:30 PM EST PACE Home Care / [facility] Home Visit [facility] [place] [facility] [address] [place] [phone] Ashley Eastman 02/20/2025 8:30 AM EST PACE Home Care / [place] Home Visit [facility] [place] [facility] [address] [place] [phone] Carmen Hartmann 02/20/2025 9:00 AM EST [facility] Att[place] [facility] [place] [facility] [address] [place] [address] 02/20/2025 4:30 PM EST PACE Home Care / [place] Home Visit [facility] [place] [facility] [address] [place] [phone] Ashley Eastman 02/21/2025 8:00 AM EST PACE Home Care / [place] Home Visit [facility] [place] [facility] [address] [place] [phone] Carmen Hartmann 02/21/2025 9:30 AM EST PACE Home Care / [place] Home Visit [facility] [place] [facility] [address] [place] [address] Ralph Loyola 02/21/2025 4:30 PM EST PACE Home Care / [place] Home Visit [facility] [place] [facility] [address] [place] [phone] Ashley Eastman 02/22/2025 12:00 PM EST PACE Home Care / [place] Home Visit [facility] [place] [facility] [address] [place] [phone] Dena Chavez 02/23/2025 12:00 PM EST PACE Home Care / [place] Home Visit [facility] [place] [facility] [address] [place] [phone] Dena Chavez 02/24/2025 8:30 AM EST PACE Home Care / [place] Home Visit [facility] [place] [facility] [address] [place] [phone] Carmen Hartmann 02/24/2025 4:30 PM EST PACE Home Care / [place] Home Visit [facility] [place] [facility] [address] [place] [phone] Ashley Eastman 02/25/2025 8:30 AM EST PACE Home Care / [place] Home Visit [facility] [place] [facility] [address] [place] [phone] Carmen Hartmann 02/25/2025 4:30 PM EST PACE Home Care / [place] Home Visit [facility] [place] [facility] [address] [place] [phone] Ashley Eastman 02/26/2025 8:30 AM EST PACE Home Care / [place] Home Visit [facility] [place] [facility] [address] [place] [phone] Carmen Hartmann 02/26/2025 4:30 PM EST PACE Home Care / PACE Home Visit [facility] [place] [facility] [address] [place] [address] Ashley Eastman 02/27/2025 8:30 AM EST PACE Home Care / [facility] Visit [facility] [place] [facility] [address] [place] [phone] Carmen Hartmann 02/27/2025 9:00 AM EST [facility] Attendance[facility] [place] [facility] [address] [place] [address] 02/27/2025 4:30 PM EST PACE Home Care / PACE Home Visit [facility] [place] [facility] [address] [place] [phone] Ashley Eastman 02/28/2025 8:00 AM EST PACE Home Care / [facility] Home Visit [facility] [place] [facility] [address] [place] [phone] Carmen Hartmann 02/28/2025 9:30 AM EST PACE Home Care / [place] Home Visit [facility] [place] [facility] [address] [place] [phone] Ralph Loyola 02/28/2025 4:30 PM EST PACE Home Care / [facility] Home Visit [facility] [place] [facility] [address] [place] [phone] Ashley Eastman 03/01/2025 8:30 AM EST PACE Home Care / [place] Home Visit [facility] [place] [facility] [address] [place] [phone] Marysol Diaz 03/01/2025 12:00 PM EST PACE Home Care / P[place] Home Visit [facility] [place] [facility] [address] [place] [phone] Natali Sanford 03/01/2025 5:30 PM EST PACE Home Care / P[place] Home Visit [facility] [place] [facility] [address] [place] [phone] Marysol Diaz 03/02/2025 8:30 AM EST PACE Home Care / [place] Home Visit [facility] [place] [facility] [address] [place] [phone] Marysol Diaz 03/02/2025 12:00 PM EST PACE Home Care / [place] Home Visit [facility] [place] [facility] [address] [place] [phone] Natali Sanford 03/02/2025 4:30 PM EST PACE Home Care / [place] Home Visit [facility] [place] [facility] [address] [place] [phone] Joe Marysol 03/02/2025 5:30 PM EST PACE Home Care / [place] Home Visit [facility] [place] [facility] [address] [place] [phone] Joe Marysol 03/03/2025 8:30 AM EST PACE Home Care / [place] Home Visit [facility] [place] [facility] [address] [place] [phone] Carmen Hartmann 03/03/2025 4:30 PM EST PACE Home Care / [place] Home Visit [facility] [place] [facility] [address] [place] [phone] Ashley Eastman 03/04/2025 8:30 AM EST PACE Home Care / [place] Home Visit [facility] [place] [facility] [address] [place] [phone] Carmen Hartmann 03/04/2025 4:30 PM EST PACE Home Care / [place] Home Visit [facility] [place] [facility] [address] [place] [phone] Ashley Eastman 03/05/2025 8:30 AM EST PACE Home Care / PACE Home Visit [facility] [place] [facility] [address] [place] [address] Carmen Hartmann 03/05/2025 4:30 PM EST PACE Home Care / PACE Home Visit [facility] [place] [facility] [address] [place] [address] Ashley Eastman 03/06/2025 8:30 AM EST PACE Home Care / PACE Home Visit [facility] [place] [facility] [address] [place] [phone] Carmen Hartmann 03/06/2025 9:00 AM EST PACE Attendance/[facility] [place] [facility] [address] [place] [address] 03/06/2025 4:30 PM EST PACE Home Care / PACE Home Visit [facility] [place] [facility] [address] [place] [phone] Ashley Eastman 03/07/2025 Lab [facility] [place] Occupational Therapy [address] [place] [phone] Clemencia Napier, OT Schizophrenia in partial remission with history of multiple episodes (CMS/HCC V24, CMS/HCC V28) 03/07/2025 8:00 AM EST PACE Home Care / PACE Home Visit [facility] [address] [place] [phone] Carmen Hartmann 03/07/2025 9:00 AM EST Clinical Support [facility] [place] [facility] [address] [place] [phone] Bethany Mccabe, HEIDI 03/07/2025 9:30 AM EST PACE Home Care / PACE Home Visit [facility] [place] [facility] [address] [place] [phone] Ralph Loyola 03/07/2025 4:30 PM EST PACE Home Care / P[facility] Home Visit [facility] [place] [facility] [address] [place] [address] Ashley Eastman 03/08/2025 12:00 PM EST PACE Home Care / P[place] Home Visit [facility] [place] [facility] [address] [place] [address] Dena Chavez 03/09/2025 12:00 PM EST PACE Home Care / P[place] Home Visit [facility] [place] [facility] [address] [place] [address] Dena Chavez 03/10/2025 8:30 AM EST PACE Home Care / PACE Home Visit [facility] [place] [facility] [address] [place] [address] Carmen Hartmann 03/10/2025 4:30 PM EST PACE Home Care / PACE Home Visit [facility] [place] [facility] [address] [place] [phone] Ashley Eastman 03/11/2025 8:30 AM EST PACE Home Care / P[place] Home Visit [facility] [place] [facility] [address] [place] [phone] Carmen Hartmann 03/11/2025 4:30 PM EST PACE Home Care / P[place] Home Visit [facility] [place] [facility] [address] [place] [address] Ashley Eastman 03/12/2025 8:30 AM EST PACE Home Care / P[place] Home Visit [facility] [place] [facility] [address] [place] [phone] Carmen Hartmann 03/12/2025 4:30 PM EST PACE Home Care / [facility] Home Visit [facility] [place] [facility] [address] [place] [phone] Ashley Eastman 03/13/2025 8:30 AM EST PACE Home Care / [facility] Home Visit [facility] [place] [facility] [address] [place] [address] Carmen Hartmann 03/13/2025 9:00 AM EST PACE Attendance/[facility] [place] [facility] [address] [place] [address] 03/13/2025 4:30 PM EST PACE Home Care / [facility] Home Visit [facility] [place] [facility] [address] [place] [address] Ashley Eastman 03/14/2025 8:00 AM EST PACE Home Care / P[facility] Home Visit [facility] [place] [facility] [address] [place] [phone] Carmen Hartmann 03/14/2025 9:30 AM EST PACE Home Care / [facility] Home Visit [facility] [place] [facility] [address] [place] [phone] Ralph Loyola 03/14/2025 4:30 PM EST PACE Home Care / P[place] Home Visit [facility] [place] [facility] [address] [place] [phone] Ashley Eastman 03/15/2025 8:30 AM EST PACE Home Care / [facility] Home Visit [facility] [place] [facility] [address] [place] [phone] Marysol Diaz 03/15/2025 12:00 PM EST PACE Home Care / [facility] Home Visit [facility] [place] [facility] [address] [place] [phone] Natali Sanford 03/15/2025 5:30 PM EST PACE Home Care / [facility] Home Visit [facility] [place] [facility] [address] [place] [phone] Marysol Diaz 03/16/2025 8:30 AM EST PACE Home Care / [facility] Home Visit [facility] [place] [facility] [address] [place] [phone] Marysol Diaz 03/16/2025 12:00 PM EST PACE Home Care / [facility] Home Visit [facility] [place] [facility] [address] [place] [phone] Natali Sanford 03/16/2025 4:30 PM EST PACE Home Care / [facility] Home Visit [facility] [place] [facility] [address] [place] [phone] Marysol Diaz 03/16/2025 5:30 PM EST PACE Home Care / [facility] Home Visit [facility] [place] [facility] [address] [place] [phone] Marysol Diaz 03/17/2025 8:30 AM EST PACE Home Care / [facility] Home Visit [facility] [place] [facility] [address] [place] [phone] Carmen Hartmann 03/17/2025 4:30 PM EST PACE Home Care / [facility] Home Visit [facility] [place] [facility] [address] [place] [phone] Ashley Eastman 03/18/2025 8:30 AM EST PACE Home Care / [facility] Home Visit [facility] [place] [facility] [address] [place] [phone] Carmen Hartmann 03/18/2025 11:00 AM EST Office Visit [facility] [place] [facility] [address] [place] [phone] Michelle Castillo MD [address] [place] [address] Brigette East LPN 03/18/2025 4:30 PM EST PACE Home Care / [facility] Home Visit [facility] [place] [facility] [address] [place] [phone] Ashley Eastman 03/19/2025 8:30 AM EST PACE Home Care / [facility] Home Visit [facility] [place] [facility] [address] [place] [address] Carmen Hartmann 03/19/2025 4:30 PM EST PACE Home Care / [facility] Home Visit [facility] [place] [facility] [address] [place] [phone] Ashley Eastman 03/20/2025 8:30 AM EST PACE Home Care / [facility] Home Visit [facility] [place] [facility] [address] [place] [phone] Carmen Hartmann 03/20/2025 9:00 AM EST [facility] Att[facility] [facility] [place] [facility] [address] [place] [phone] 03/20/2025 4:30 PM EST PACE Home Care / [facility] Visit [facility] [place] [facility] [address] [place] [phone] Ashley Eastman 03/21/2025 8:00 AM EST PACE Home Care / [facility] Visit [facility] [place] [facility] [address] [place] [phone] Carmen Hartmann 03/21/2025 9:30 AM EST PACE Home Care / [facility] Visit [facility] [place] [facility] [address] [place] [phone] Ralph Loyola 03/21/2025 4:30 PM EST PACE Home Care / [facility] Home Visit [facility] [place] [facility] [address] [place] [phone] Ashley Eastman 03/22/2025 12:00 PM EST PACE Home Care / [facility] Visit [facility] [place] [facility] [address] [place] [phone] Dena Chavez 03/23/2025 12:00 PM EST PACE Home Care / [facility] [facility] Visit [facility] [place] [facility] [address] [place] [phone] Dena Chavez 03/24/2025 8:30 AM EST PACE Home Care / [facility] Visit [facility] [place] [facility] [address] [place] [phone] Carmen Hartmann 03/24/2025 9:45 AM EST Appointment [facility] Xray [address] [place] [address] Lakia Hou, [facility]PER[employer]ING [employer] ENFORCEMENT ANALYST 03/24/2025 4:30 PM EST PACE Home Care / [facility] Visit [facility] [place] [facility] [address] [place] [phone] Ashley Eastman 03/25/2025 8:30 AM EST PACE Home Care / [facility] Visit [facility] [place] [facility] [address] [place] [phone] Carmen Hartmann 03/25/2025 4:30 PM EST PACE Home Care / [facility] Visit [facility] [place] [facility] [address] [place] [phone] Ashley Eastman 03/26/2025 8:30 AM EST PACE Home Care / [facility] Visit [facility] [place] [facility] [address] [place] [phone] Carmen Hartmann 03/26/2025 4:30 PM EST PACE Home Care / [facility] Visit [facility] [place] [facility] [address] [place] [phone] Ashley Eastman 03/27/2025 8:30 AM EST PACE Home Care / [facility] Visit [facility] [place] [facility] [address] [place] [phone] Carmen Hartmann 03/27/2025 9:00 AM EST PACE Attendance[facility] [place] [facility] [address] [place] [address] 03/27/2025 2:40 PM EST Clinical Support [facility] [place] [address] [place] [address] 03/27/2025 4:30 PM EST PACE Home Care / [facility] [place] [facility] [address] [place] [address] Ashley Eastman 03/28/2025 8:00 AM EST PACE Home Care / P[facility] Home Visit [facility] [address] [place] [address] Carmen Hartmann 03/28/2025 10:00 AM EST Clinical Support [facility] [place] [facility] [address] [place] [address] Bethany Mccabe RN 03/28/2025 4:30 PM EST PACE Home Care / PACE Home Visit [facility] [address] [place] [phone] Ashley Eastman 03/29/2025 8:30 AM EST PACE Home Care / [facility] [address] [place] [phone] Marysol Diaz 03/29/2025 12:00 PM EST PACE Home Care / [facility] Visit [facility] [place] [facility] [address] [place] [phone] Natali Sanford 03/29/2025 5:30 PM EST PACE Home Care / [facility] Visit [facility] [place] [facility] [address] [place] [phone] Marysol Diaz 03/30/2025 8:30 AM EST PACE Home Care / [facility] Home Visit [facility] [place] [facility] [address] [place] [phone] Marysol Diaz 03/30/2025 12:00 PM EST PACE Home Care / [facility] Visit [facility] [place] [facility] [address] [place] [phone] Natali Sanford 03/30/2025 4:30 PM EST PACE Home Care / [facility] Visit [facility] [place] [facility] [address] [place] [address] Marysol Diaz 03/30/2025 5:30 PM EST PACE Home Care / [facility] Visit [facility] [place] [facility] [address] [place] [phone] Marysol Diaz 03/31/2025 8:30 AM EST PACE Home Care / [facility] Visit [facility] [place] [facility] [address] [place] [phone] Carmen Hartmann 03/31/2025 4:30 PM EST PACE Home Care / [facility] Visit [facility] [place] [facility] [address] [place] [phone] Ashley Eastman 04/01/2025 8:30 AM EST PACE Home Care / [facility] Visit [facility] [place] [facility] [address] [place] [phone] Carmen Hartmann 04/01/2025 1:15 PM EST PACE External Visit [facility] [place] [address] [place] [phone] 04/01/2025 4:30 PM EST PACE Home Care / [facility] [facility] [place] [facility] [address] [place] [phone] Ashley Eastman 04/02/2025 8:30 AM EST PACE Home Care / [facility] Visit [facility] [place] [facility] [address] [place] [phone] Carmen Hartmann 04/02/2025 4:30 PM EST PACE Home Care / [facility] Visit [facility] [place] [facility] [address] [place] [address] Ashley Eastman 04/03/2025 8:30 AM EST PACE Home Care / [facility] Visit [facility] [place] [facility] [address] [place] [address] Carmen Hartmann 04/03/2025 9:00 AM EST [facility] Att[facility] [facility] [place] [facility] [address] [place] [address] 04/03/2025 4:30 PM EST PACE Home Care / [facility] [place] [facility] [address] [place] [address] Ashley Eastman 04/04/2025 8:00 AM EST PACE Home Care / [facility] [place] [facility] [address] [place] [phone] Carmen Hartmann 04/04/2025 9:30 AM EST PACE Home Care / [facility] [place] [facility] [address] [place] [address] Ralph Loyola 04/04/2025 4:30 PM EST PACE Home Care / [facility] Visit [facility] [place] [facility] [address] [place] [phone] Ashley Eastman 04/05/2025 12:00 PM EST PACE Home Care / [facility] Visit [facility] [place] [facility] [address] [place] [phone] Dena Chavez 04/06/2025 12:00 PM EST PACE Home Care / [facility] [facility] Visit [facility] [place] [facility] [address] [place] [phone] Dena Chavez 2025 8:30 AM EST PACE Home Care / [facility] Visit [facility] [place] [facility] [address] [place] [address] Carmen Hartmann 2025 4:30 PM EST PACE Home Care / [facility] Visit [facility] [place] [facility] [address] [place] [address] Ashley Eastman 04/08/2025 8:30 AM EST PACE Home Care / [facility] Visit [facility] [place] [facility] [address] [place] [address] Carmen Hartmann 04/08/2025 4:30 PM EST PACE Home Care / [facility] [address] [place] [address] Ashley Eastman 04/09/2025 8:30 AM EST PACE Home Care / [facility] Visit [facility] [address] [place] [phone] Carmen Hartmann 04/09/2025 4:30 PM EST PACE Home Care / [facility] [address] [place] [phone] Ashley Eastman 04/10/2025 8:30 AM EST PACE Home Care / [facility] Visit [facility] [place] [facility] [address] [place] [phone] Carmen Hartmann 04/10/2025 9:00 AM EST PACE Attendance[facility] [place] [facility] [address] [place] [address] 04/10/2025 4:30 PM EST PACE Home Care / [facility] Visit [facility] [place] [facility] [address] [place] [address] Ashley Eastman 04/11/2025 8:00 AM EST PACE Home Care / P[facility] Visit [facility] [address] [place] [phone] Carmen Hartmann 04/11/2025 9:30 AM EST PACE Home Care / PACE Home Visit [facility] [place] [facility] [facility] [address] [place] [phone] Ralph Loyola 04/11/2025 4:30 PM EST [facility] Home Visit Marsha ABRAMS [facility] [address] [place] [phone] Ashley Eastman 04/12/2025 8:30 AM EST [facility] / [facility] Home Visit Marsha ABRAMS [facility] [address] [place] [phone] Marysol Diaz 04/12/2025 12:00 PM EST [facility] / [facility] Home Visit Marsha ABRAMS [facility] [address] [place] [phone] Natali Sanford 04/12/2025 5:30 PM EST [facility] / [facility] Home Visit Marsha ABRAMS [facility] [address] [place] [phone] Marysol Diaz 04/15/2025 11:00 AM EST Office Visit [facility] [address] [place] [phone] Michelle Castillo MD [address] [place] [phone] Brigette East LPN 04/17/2025 9:00 AM EST [facility] Att[facility] [address] [place] [address] 04/18/2025 10:00 AM EST Clinical [place] [facility] [place] [facility] [address] [place] [phone] Bethany Mccabe RN 04/24/2025 9:00 AM EST [facility] [place] [facility] [address] [place] [phone] 04/24/2025 11:30 AM EST Clinical Support [facility] [address] [phone] 05/01/2025 9:00 AM EST P[facility] Attendance/Day Center [facility] P[facility] Day [address] [phone] 05/08/2025 9:00 AM EST [facility] [place] [facility] [address] [place] [phone] 05/09/2025 10:00 AM EST Clinical Support [facility] [place] [facility] [address] [place] [phone] Bethany Mccabe RN 05/13/2025 11:00 AM EST Office Visit [facility] [address] [phone] Michelle Castillo MD [address] [place] [phone] Brigette East LPN 05/15/2025 9:00 AM EST [facility] [place] [facility] [address] [phone] 05/22/2025 9:00 AM EST [facility] [place] [facility] [address] [place] [phone] 05/29/2025 9:00 AM EST [facility] [place] [facility] [address] [place] [phone] 05/30/2025 10:00 AM EST [facility] [place] [facility] [address] [place] [phone] Bethany Mccabe RN 06/05/2025 9:00 AM EST [facility] [place] [facility] [address] [phone] 06/10/2025 11:00 AM EST Office Visit [address] [phone] Michelle Castillo MD [address] [address] Brigette East LPN 06/12/2025 9:00 AM EST [facility] Attendance/Day Center [facility] Day [address] [address] 06/19/2025 9:00 AM EST [facility] Attendance[facility]Day Center [address] [phone] 06/20/2025 10:00 AM EST Clinical Support [address] [phone] Bethany Mccabe RN 06/26/2025 9:00 AM EDT [facility] Attendance/Day Center [facility] Day [address] [phone] 06/27/2025 1:20 PM EDT Office Visit Gastroenterology - [address] [phone] Analisa Perez, ALONSO [address] [place] [address] 07/03/2025 9:00 AM EDT [facility] Attendance/Day Center [facility] Day [address] [address] 07/10/2025 9:00 AM EDT [facility] Attendance/Day Center [facility] Day [address] [phone] 07/11/2025 10:00 AM EDT Clinical Support [facility] [address] [phone] Bethany Mccabe RN 07/17/2025 9:00 AM EDT [facility] Att[facility] [facility] [place] [facility] [address] [place] [phone] 07/17/2025 3:30 PM EDT [facility] External Visit Marsha ABRAMS MA [address] [place] [phone] 07/24/2025 9:00 AM EDT [facility] Att[facility] [facility] [place] [facility] [address] [place] [phone] 07/31/2025 9:00 AM EDT [facility] [facility] [place] [facility] [address] [place] [phone] 08/01/2025 10:00 AM EDT Clinical Support [facility] [place] [facility] [address] [place] [phone] Bethany Mccabe RN 08/07/2025 9:00 AM EDT [facility] Att[facility] [facility] [place] [facility] [address] [place] [phone] 08/14/2025 9:00 AM EDT [facility] [facility] [place] [facility] [address] [place] [phone] 08/21/2025 9:00 AM EDT [facility] [facility] [place] [facility] [address] [place] [phone] 08/22/2025 10:00 AM EDT Clinical Support [facility] [place] [facility] [address] [place] [phone] Bethany Mccabe RN 08/28/2025 9:00 AM EDT [facility] Att[facility] [facility] [place] [facility] [address] [place] [phone] 09/04/2025 9:00 AM EDT [facility] [facility] [place] [facility] [address] [place] [phone] 09/11/2025 9:00 AM EDT [facility] [facility] [place] [facility] [address] [place] [phone] 09/12/2025 10:00 AM EDT Clinical [place] [facility] [place] [facility] [address] [place] [phone] Bethany Mccabe RN 09/18/2025 9:00 AM EDT [facility] [place] [facility] [address] [place] [phone] 09/25/2025 9:00 AM EDT [facility] [place] [facility] [address] [place] [phone] 10/02/2025 9:00 AM EDT [facility] [place] [facility] [address] [place] [phone] 10/03/2025 10:00 AM EDT Clinical Support [place]BRAMS [place] [facility] [address] [phone] Bethany Mccabe RN 10/09/2025 9:00 AM EDT [facility] [place] [facility] [address] [place] [phone] 10/24/2025 10:00 AM EDT Clinical Support [facility] [place] [facility] [address] [phone] Bethany Mccabe, HEIDI 11/14/2025 10:00 AM EDT Clinical Support [facility] [address] [place] [phone] Bethany Mccabe, RN 12/05/2025 10:00 AM EDT Clinical Support [facility] [place] [facility] [address] [place] [phone] Bethany Mccabe, RN 12/26/2025 10:00 AM EDT Clinical Support [facility] [place] [facility] [address] [place] [phone] Bethany Mccabe RN 01/16/2026 10:00 AM EDT Clinical Support [address] [phone] Bethany Mccabe, HEIDI 02/06/2026 10:00 AM EDT Clinical Support [address] [phone] Bethany Mccabe RN 02/27/2026 10:00 AM EST Clinical Support [address] [phone] Bethany Mccabe, RN documented as of this encounter Visit Diagnoses Not on filedocumented in this encounter 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
--- OUTSIDE RECORDS SUMMARY | 2025-02-09 07:30 | XMS_ITS | Encounter Summary ---
Author Organization [facility] Address [address] [place] [address] Care Team Providers Care Personal Loan Specialist Name Role Phone Regulo Ivy NP Primary Care Provider [phone] Encounter Details Date Type Department Care Team (Late st Contact Info) Description 02/09/2025 7:30 AM EDT PACE Home Care / PACE Home Visit [facility] [address] [place] [address] Ingrid Corea Social History Tobacco Use Types Packs/Day Years [...] Record ed Within the last 3 months, ho w many times did you visit the [...] for your loved ones. For example, child life therapist or elderly care for an older adult? [...] 02/10/2025 8:39 AM Naomy Pa RN * [place] Suicide Severity Rating Scale (Screener/Recent Self-Report) Question Answer Date of Assessment Author 1. Wish to be (Past 1 Month) No 025 8:39 AM Naomy Pa RN 2. Non-Specific Active Suici sage Thoughts (Past 1 Month) No 02/10/2025 8:39 AM Naomy aP RN 6. Suicidal Behavior (Lifetime) No 8:39 [...] [facility] [address] [place] [address] Carmen Hartmann 02/12/2025 4:30 PM EDT PACE Home Care / [facility] Home Visit [facility] [place] [facility] [address] [place] [address] Ashley Eastman 02/13/2025 8:30 AM EDT PACE Home Care / [facility] Home Visit [facility] [place] [facility] [address] [place] [address] Carmen Hartmann 02/13/2025 9:00 AM EDT [facility] Attendance[facility] [place] [facility] [address] [place] [address] 02/13/2025 4:30 PM EDT PACE Home Care / [facility] Home Visit [facility] [place] [facility] [address] [place] [phone] Ashley Eastman 02/14/2025 8:00 AM EDT PACE Home Care / [facility] Home Visit [facility] [place] [facility] [address] [place] [phone] Carmen Hartmann 02/14/2025 9:30 AM EDT P[facility] Home Care / [facility] Home Visit [facility] [place] [facility] [address] [place] [phone] Ralph Loyola 02/14/2025 4:30 PM EDT P[facility] Home Care / [facility] [place] [facility] [address] [place] [phone] Ashley Eastman 02/15/2025 8:30 AM EDT P[facility] Home Care / [facility] [place] [facility] [address] [place] [phone] Marysol Diaz 02/15/2025 12:00 PM EDT P[facility] Home Care / [facility] [facility] [place] [facility] [address] [place] [phone] Natali Sanford 02/15/2025 5:30 PM EDT P[facility] Home Care / [facility] [place] [facility] [address] [place] [address] Joe Marysol 02/16/2025 8:30 AM EST P[facility] Home Care / [place] [facility] [place] [facility] [address] [place] [phone] [facility] Marysol 02/16/2025 12:00 PM EST P[facility] Home Care / [place] [facility] Visit [facility] [place] [facility] [address] [place] [phone] Natali Sanford 02/16/2025 4:30 PM EST P[facility] Home Care / [place] [facility] [place] [facility] [address] [place] [phone] [facility] Marysol 02/16/2025 5:30 PM EST P[facility] Home Care / [place] [facility] [place] [facility] [address] [place] [phone] [facility] Marysol 02/17/2025 8:30 AM EST P[facility] Home Care / [place] [facility] [place] [facility] [address] [place] [phone] Carmen Hartmann 02/17/2025 11:00 AM EST [facility] Visit [facility] [place] [facility] [address] [place] [phone] Michelle Castillo MD [address] [place] [address] 02/17/2025 4:30 PM EST P[facility] Home Care / [place] [facility] [place] [facility] [address] [place] [phone] Ashley Eastman 02/18/2025 8:30 AM EST P[facility] Home Care / [facility] Home [facility] [place] [facility] [address] [place] [phone] Carmen Hartmann 02/18/2025 11:00 AM EST Office Visit [facility] [place] [facility] [address] [place] [address] Michelle Castillo MD [address] [address] Brigette East LPN 02/18/2025 4:30 PM EST P[facility] Home Care / [place] [facility] [place] [facility] [address] [place] [phone] Ashley Eastman 02/19/2025 8:30 AM EST P[facility] Home Care / [place] Home [facility] [place] [facility] [address] [place] [phone] Carmen Hartmann 02/19/2025 4:30 PM EST P[facility] Home Care / [place] Home Visit [facility] [place] [facility] [address] [place] [phone] Ashley Eastman 02/20/2025 8:30 AM EST P[facility] Home Care / [place] Home Visit [facility] [place] [facility] [address] [place] [phone] Carmen Hartmann 02/20/2025 9:00 AM EST [facility] Att[facility] [facility] [place] [facility] [address] [place] [address] 02/20/2025 4:30 PM EST P[facility] Home Care / [place] [facility] [place] [facility] [address] [place] [phone] Ashley Eastman 02/21/2025 8:00 AM EST [facility] Home Care / [place] [facility] [place] [facility] [address] [place] [phone] Carmen Hartmann 02/21/2025 9:30 AM EST P[facility] Home Care / [place] [facility] [place] [facility] [address] [place] [phone] Ralph Loyola 02/21/2025 4:30 PM EST P[facility] Home Care / [place] [facility] Visit [facility] [place] [facility] [address] [place] [phone] Ashley Eastman 02/22/2025 12:00 PM EST P[facility] Home Care / [place] [facility] Visit [facility] [place] [facility] [address] [place] [phone] Dena Chavez 02/23/2025 12:00 PM EST P[facility] Home Care / [place] [facility] Visit [facility] [place] [facility] [address] [place] [phone] Dena Chavez 02/24/2025 8:30 AM EST P[facility] Home Care / [place] [facility] [place] [facility] [address] [place] [phone] Carmen Hartmann 02/24/2025 4:30 PM EST P[facility] Home Care / [place] [facility] [place] [facility] [address] [place] [phone] Ashley Eastman 02/25/2025 8:30 AM EST P[facility] Home Care / [place] [facility] [place] [facility] [address] [place] [phone] Carmen Hartmann 02/25/2025 4:30 PM EST PACE Home Care / [place] [facility] [place] [facility] [address] [place] [phone] Ashley Eastman 02/26/2025 8:30 AM EST P[facility] Home Care / [place] [facility] [place] [facility] [address] [place] [phone] Carmen Hartmann 02/26/2025 4:30 PM EST PACE Home Care / [place] Home Visit [facility] [place] [facility] [address] [place] [phone] Ashley Eastman 02/27/2025 8:30 AM EST P[facility] Home Care / [place] [facility] [place] [facility] [address] [place] [phone] Carmen Hartmann 02/27/2025 9:00 AM EST [facility] Att[facility] [place] [facility] [address] [place] [phone] 02/27/2025 4:30 PM EST P[facility] Home Care / [place] [facility] [place] [facility] [address] [place] [phone] Ashley Eastman 02/28/2025 8:00 AM EST P[facility] Home Care / [facility] [place] [facility] [address] [place] [phone] Carmen Hartmann 02/28/2025 9:30 AM EST P[facility] Home Care / [facility] [facility] [place] [facility] [address] [place] [phone] Ralph Loyola 02/28/2025 4:30 PM EST P[facility] Home Care / [place] [facility] [place] [facility] [address] [place] [phone] Ashley Eastman 03/01/2025 8:30 AM EST P[facility] Home Care / [place] [facility] [place] [facility] [address] [place] [phone] Marysol Diaz 03/01/2025 12:00 PM EST P[facility] Home Care / [place] [facility] Visit [facility] [place] [facility] [address] [place] [phone] Natali Sanford 03/01/2025 5:30 PM EST P[facility] Home Care / [place] [facility] Visit [facility] [place] [facility] [address] [place] [phone] Marysol Diaz 03/02/2025 8:30 AM EST P[facility] Home Care / [place] [facility] Visit [facility] [place] [facility] [address] [place] [phone] Marysol Diaz 03/02/2025 12:00 PM EST P[facility] Home Care / [place] [facility] [place] [facility] [address] [place] [phone] Natali Sanford 03/02/2025 4:30 PM EST P[facility] Home Care / [place] [facility] [place] [facility] [address] [place] [phone] Marysol Diaz 03/02/2025 5:30 PM EST P[facility] Home Care / [place] [facility] [place] [facility] [address] [place] [phone] Marysol Diaz 03/03/2025 8:30 AM EST P[facility] Home Care / [place] [facility] [place] [facility] [address] [place] [phone] Carmen Hartmann 03/03/2025 4:30 PM EST PACE Home Care / [place] [facility] Visit [facility] [place] [facility] [address] [place] [phone] Ashley Eastman 03/04/2025 8:30 AM EST P[facility] Home Care / [place] [facility] [place] [facility] [address] [place] [phone] Carmen Hartmann 03/04/2025 4:30 PM EST P[facility] Home Care / [place] [facility] [place] [facility] [address] [place] [phone] Ashley Eastman 03/05/2025 8:30 AM EST PACE Home Care / [facility] Home Visit [facility] [place] [facility] [address] [place] [address] Carmen Hartmann 03/05/2025 4:30 PM EST PACE Home Care / [facility] Home Visit [facility] [place] [facility] [address] [place] [address] Ashley Eastman 03/06/2025 8:30 AM EST PACE Home Care / P[facility] Home Visit [facility] [place] [facility] [address] [place] [phone] Carmen Hartmann 03/06/2025 9:00 AM EST [facility] Attendance[facility] [place] [facility] [address] [place] [address] 03/06/2025 4:30 PM EST PACE Home Care / [facility] Home Visit [facility] [place] [facility] [address] [place] [phone] Ashley Eastman 03/07/2025 Lab [facility] [place] Occupational Therapy [address] [place] [phone] Clemencia Napier, ADITYA Schizophrenia in partial remission with history of multiple episodes (CMS/HCC V24, CMS/HCC V28) 03/07/2025 8:00 AM EST PACE Home Care / PACE Home Visit [facility] [place] [facility] [address] [place] [address] Carmen Hartmann 03/07/2025 9:00 AM EST Clinical Support [facility] [place] [facility] [address] [place] [address] Bethany Mccabe, HEIDI 03/07/2025 9:30 AM EST PACE Home Care / P[facility] Home Visit [facility] [place] [facility] [address] [place] [phone] Ralph Loyola 03/07/2025 4:30 PM EST PACE Home Care / [facility] Visit [facility] [place] [facility] [address] [place] [phone] Ashley Eastman 03/08/2025 12:00 PM EST P[facility] Home Care / [facility] [facility] Visit [facility] [place] [facility] [address] [place] [phone] Dena Chavez 03/09/2025 12:00 PM EST P[facility] Home Care / [place] [facility] Visit [facility] [place] [facility] [address] [place] [phone] Dena Chavez 03/10/2025 8:30 AM EST P[facility] Home Care / [place] [facility] Visit [facility] [place] [facility] [address] [place] [phone] Carmen Hartmann 03/10/2025 4:30 PM EST PACE Home Care / [place] [facility] Visit [facility] [place] [facility] [address] [place] [phone] Ashley Eastman 03/11/2025 8:30 AM EST P[facility] Home Care / [place] [facility] Visit [facility] [place] [facility] [address] [place] [phone] Carmen Hartmann 03/11/2025 4:30 PM EST P[facility] Home Care / [place] [facility] [place] [facility] [address] [place] [phone] Ashley Eastman 03/12/2025 8:30 AM EST P[facility] Home Care / [place] [facility] [place] [facility] [address] [place] [phone] Carmen Hartmann 03/12/2025 4:30 PM EST P[facility] Home Care / [place] [facility] [place] [facility] [address] [place] [phone] Ashley Eastman 03/13/2025 8:30 AM EST PACE Home Care / [facility] Visit [facility] [place] [facility] [address] [place] [address] Carmen Hartmann 03/13/2025 9:00 AM EST [facility] Attendance[facility] [place] [facility] [address] [place] [address] 03/13/2025 4:30 PM EST P[facility] Home Care / [place] [facility] [place] [facility] [address] [place] [address] Ashley Eastman 03/14/2025 8:00 AM EST PACE Home Care / [facility] Home Visit [facility] [place] [facility] [address] [place] [phone] Carmen Hartmann 03/14/2025 9:30 AM EST P[facility] Home Care / [facility] [facility] Visit [facility] [place] [facility] [address] [place] [phone] Ralph Loyola 03/14/2025 4:30 PM EST P[facility] Home Care / [place] Home Visit [facility] [place] [facility] [address] [place] [phone] Ashley Eastman 03/15/2025 8:30 AM EST P[facility] Home Care / [facility] [facility] Visit [facility] [place] [facility] [address] [place] [phone] Marysol Diaz 03/15/2025 12:00 PM EST PACE Home Care / [facility] [facility] [place] [facility] [address] [place] [phone] Natali Sanford 03/15/2025 5:30 PM EST PACE Home Care / [facility] [facility] [place] [facility] [address] [place] [phone] Marysol Diaz 03/16/2025 8:30 AM EST P[facility] Home Care / [facility] [facility] [place] [facility] [address] [place] [phone] Marysol Diaz 03/16/2025 12:00 PM EST P[facility] Home Care / [facility] [facility] [place] [facility] [address] [place] [phone] Natali Sanford 03/16/2025 4:30 PM EST P[facility] Home Care / [facility] [facility] [place] [facility] [address] [place] [phone] Marysol Diaz 03/16/2025 5:30 PM EST P[facility] Home Care / [facility] [place] [facility] [address] [place] [phone] Marysol Diaz 03/17/2025 8:30 AM EST P[facility] Home Care / [facility] [place] [facility] [address] [place] [phone] Carmen Hartmann 03/17/2025 4:30 PM EST P[facility] Home Care / [facility] [place] [facility] [address] [place] [phone] Ashley Eastman 03/18/2025 8:30 AM EST P[facility] Home Care / [facility] [place] [facility] [address] [place] [phone] Carmen Hartmann 03/18/2025 11:00 AM EST [facility] Visit [facility] [place] [facility] [address] [place] [phone] Michelle Castillo MD [address] [place] [address] Brigette East LPN 03/18/2025 4:30 PM EST P[facility] Home Care / [facility] [place] [facility] [address] [place] [phone] Ashley Eastman 03/19/2025 8:30 AM EST P[facility] Home Care / [facility] [place] [facility] [address] [place] [address] Carmen Hartmann 03/19/2025 4:30 PM EST P[facility] Home Care / [facility] [place] [facility] [address] [place] [address] Ashley Eastman 03/20/2025 8:30 AM EST P[facility] Home Care / [facility] Visit [facility] [place] [facility] [address] [place] [address] Carmen Hartmann 03/20/2025 9:00 AM EST [facility] [place] [facility] [address] [place] [address] 03/20/2025 4:30 PM EST P[facility] Home Care / [facility] [place] [facility] [address] [place] [address] Ashley Eastman 03/21/2025 8:00 AM EST P[facility] Home Care / [facility] [place] [facility] [address] [place] [phone] Carmen Hartmann 03/21/2025 9:30 AM EST P[facility] Home Care / [facility] [place] [facility] [address] [place] [address] Ralph Loyola 03/21/2025 4:30 PM EST P[facility] Home Care / [facility] [facility] [place] [facility] [address] [place] [phone] Ashley Eastman 03/22/2025 12:00 PM EST P[facility] Home Care / [facility] [facility] [place] [facility] [address] [place] [phone] Dena Chavez 03/23/2025 12:00 PM EST P[facility] Home Care / [facility] [facility] Visit [facility] [place] [facility] [address] [place] [phone] Dena Chavez 03/24/2025 8:30 AM EST P[facility] Home Care / [facility] [facility] [place] [facility] [address] [place] [phone] Carmen Hartmann 03/24/2025 9:45 AM EST Appointment [facility] [address] [place] [address] Lakia Hou, [facility] 03/24/2025 4:30 PM EST PACE Home Care / [facility] Visit [facility] [place] [facility] [address] [place] [phone] Ashley Eastman 03/25/2025 8:30 AM EST P[facility] Home Care / [facility] [facility] Visit [facility] [place] [facility] [address] [place] [phone] Carmen Hartmann 03/25/2025 4:30 PM EST PACE Home Care / [facility] Visit [facility] [place] [facility] [address] [place] [phone] Ashley Eastman 03/26/2025 8:30 AM EST P[facility] Home Care / [facility] Visit [facility] [place] [facility] [address] [place] [phone] Carmen Hartmann 03/26/2025 4:30 PM EST P[facility] Home Care / [facility] [facility] Visit [facility] [place] [facility] [address] [place] [phone] Ashley Eastman 03/27/2025 8:30 AM EST P[facility] Home Care / [facility] [facility] [place] [facility] [address] [place] [phone] Carmen Hartmann 03/27/2025 9:00 AM EST [facility] Attend[facility] [place] [facility] [address] [place] [address] 03/27/2025 2:40 PM EST Clinical Support [facility] [place] [address] [place] [address] 03/27/2025 4:30 PM EST PACE Home Care / [facility] Home Visit [facility] [place] [facility] [address] [place] [address] Ashley Eastman 03/28/2025 8:00 AM EST PACE Home Care / [facility] Visit [facility] [place] [facility] [address] [place] [address] Carmen Hartmann 03/28/2025 10:00 AM EST Clinical Support [facility] [place] [facility] [address] [place] [address] Bethany Mccabe RN 03/28/2025 4:30 PM EST PACE Home Care / [facility] Home Visit [facility] [place] [facility] [address] [place] [phone] Ashley Eastman 03/29/2025 8:30 AM EST PACE Home Care / [facility] Home Visit [facility] [place] [facility] [address] [place] [phone] Marysol Diaz 03/29/2025 12:00 PM EST PACE Home Care / [facility] [place] [facility] [address] [place] [address] Natali Sanford 03/29/2025 5:30 PM EST P[facility] Home Care / [facility] Visit [facility] [place] [facility] [address] [place] [phone] Marysol Diaz 03/30/2025 8:30 AM EST P[facility] Home Care / [facility] Visit [facility] [place] [facility] [address] [place] [phone] Marysol Diaz 03/30/2025 12:00 PM EST P[facility] Home Care / [facility] [place] [facility] [address] [place] [address] Natali Sanford 03/30/2025 4:30 PM EST PACE Home Care / [facility] [place] [facility] [address] [place] [address] Marysol Diaz 03/30/2025 5:30 PM EST P[facility] Home Care / [facility] [facility] [place] [facility] [address] [place] [phone] Marysol Diaz 03/31/2025 8:30 AM EST P[facility] Home Care / [facility] [facility] [place] [facility] [address] [place] [phone] Carmen Hartmann 03/31/2025 4:30 PM EST P[facility] Home Care / [facility] [facility] [place] [facility] [address] [place] [phone] Ashley Eastman 04/01/2025 8:30 AM EST P[facility] Home Care / [facility] [place] [facility] [address] [place] [phone] Carmen Hartmann 04/01/2025 1:15 PM EST [facility] Visit [facility] [place] [address] [place] [address] 04/01/2025 4:30 PM EST P[facility] Home Care / [facility] [facility] [place] [facility] [address] [place] [phone] Ashley Eastman 04/02/2025 8:30 AM EST P[facility] Home Care / [facility] [facility] [place] [facility] [address] [place] [phone] Carmen Hartmann 04/02/2025 4:30 PM EST P[facility] Home Care / [facility] [facility] [place] [facility] [address] [place] [address] Ashley Eastman 04/03/2025 8:30 AM EST P[facility] Home Care / [place] [facility] [place] [facility] [address] [place] [address] Carmen Hartmann 04/03/2025 9:00 AM EST [facility] [facility] [place] [facility] [address] [place] [address] 04/03/2025 4:30 PM EST P[facility] Home Care / [facility] [facility] [place] [facility] [address] [place] [address] Ashley Eastman 04/04/2025 8:00 AM EST P[facility] Home Care / [facility] [facility] [place] [facility] [address] [place] [address] Carmen Hartmann 04/04/2025 9:30 AM EST P[facility] Home Care / [facility] [facility] [place] [facility] [address] [place] [address] Ralph Loyola 04/04/2025 4:30 PM EST P[facility] Home [facility] / [facility] [facility] [place] [facility] [address] [place] [phone] Ashley Eastman 04/05/2025 12:00 PM EST P[facility] Home Care / [facility] [facility] [place] [facility] [address] [place] [phone] Dena Chavez 04/06/2025 12:00 PM EST P[facility] Home Care / [facility] Visit [facility] [place] [facility] [address] [place] [phone] Dena Chavez 2025 8:30 AM EST P[facility] Home Care / [facility] Visit [facility] [place] [facility] [address] [place] [address] Carmen Hartmann 2025 4:30 PM EST P[facility] Home Care / [facility] Visit [facility] [place] [facility] [address] [place] [address] Ashley Eastman 04/08/2025 8:30 AM EST PACE Home Care / [facility] Visit [facility] [place] [facility] [address] [place] [address] Carmen Hartmann 04/08/2025 4:30 PM EST PACE Home Care / [facility] Visit [facility] [place] [facility] [address] [place] [address] Ashley Eastman 04/09/2025 8:30 AM EST P[facility] Home Care / [facility] Visit [facility] [place] [facility] [address] [place] [address] Carmen Hartmann 04/09/2025 4:30 PM EST PACE Home Care / [facility] Visit [facility] [place] [facility] [address] [place] [address] Ashley Eastman 04/10/2025 8:30 AM EST PACE Home Care / [facility] Visit [facility] [place] [facility] [address] [place] [address] Carmen Hartmann 04/10/2025 9:00 AM EST [facility] Att[facility] [place] [facility] [address] [place] [address] 04/10/2025 4:30 PM EST PACE Home Care / [facility] [place] [facility] [address] [place] [address] Ashley Eastman 04/11/2025 8:00 AM EST [facility] Home [facility] / [facility] [place] [facility] [address] [place] [phone] Carmen Hartmann 04/11/2025 9:30 AM EST [facility] [address] [place] [phone] Ralph Loyola 04/11/2025 4:30 PM EST [facility] [address] [place] [phone] Ashley Eastman 04/12/2025 8:30 AM EST [facility] [address] [place] [phone] Marysol Diaz 04/12/2025 12:00 PM EST [facility] [address] [place] [phone] Natali Sanford 04/12/2025 5:30 PM EST [facility] [address] [place] [phone] Marysol Diaz 04/15/2025 11:00 AM EST Office Visit [facility] [address] [place] [phone] Michelle Castillo MD [address] [place] [phone] Brigette East LPN 04/17/2025 9:00 AM EST [facility] [address] [place] [phone] 04/18/2025 10:00 AM EST Clinical Support [facility] [place] [facility] [address] [place] [phone] Bethany Mccabe RN 04/24/2025 9:00 AM EST [facility] [place] [facility] [address] [place] [phone] 04/24/2025 11:30 AM EST Clinical Support [facility] [address] [phone] 05/01/2025 9:00 AM EST [facility] Att[facility]Day Center [facility] [address] [phone] 05/08/2025 9:00 AM EST [facility] [address] [place] [phone] 05/09/2025 10:00 AM EST Clinical Support [facility] [address] [phone] Bethany Mccabe RN 05/13/2025 11:00 AM EST Office Visit [facility] [address] [phone] Michelle Castillo MD [address] [place] [phone] Brigette East LPN 05/15/2025 9:00 AM EST [facility] [address] [phone] 05/22/2025 9:00 AM EST [facility] Day [address] [phone] 05/29/2025 9:00 AM EST [facility] Day [address] [phone] 05/30/2025 10:00 AM EST Clinical Support [facility] [address] [phone] Bethany Mccabe RN 06/05/2025 9:00 AM EST [facility] Day [address] [phone] 06/10/2025 11:00 AM EST Office Visit [facility] [address] [phone] Michelle Castillo MD [address] [phone] Brigette East LPN 06/12/2025 9:00 AM EST [facility]Day [facility] [address] [place] [phone] 06/19/2025 9:00 AM EST [facility]Day [facility] [address] [address] 06/20/2025 10:00 AM EST Clinical Support [address] [phone] Bethany Mccabe RN 06/26/2025 9:00 AM EDT [facility] [address] [address] 06/27/2025 1:20 PM EDT Office Visit Gastroenterology - [address] [place] [phone] Analisa Perez, ALONSO [address] [place] [address] 07/03/2025 9:00 AM EDT [facility]Day [facility] Day [address] [phone] 07/10/2025 9:00 AM EDT [facility] Att[facility]Day [facility] Day [address] [address] 07/11/2025 10:00 AM EDT Clinical Support [address] [phone] Bethany Mccabe RN 07/17/2025 9:00 AM EDT [facility] [place] [facility] [address] [place] [address] 07/17/2025 3:30 PM EDT [facility] External Visit Marsha ABRAMS MA [address] [place] [phone] 07/24/2025 9:00 AM EDT [facility] [facility] [address] [place] [phone] 07/31/2025 9:00 AM EDT [facility] [place] [facility] [address] [place] [phone] 08/01/2025 10:00 AM EDT Clinical [place] [facility] [address] [place] [phone] Bethany Mccabe RN 08/07/2025 9:00 AM EDT [facility] [place] [facility] [address] [place] [phone] 08/14/2025 9:00 AM EDT [facility] [place] [facility] [address] [place] [phone] 08/21/2025 9:00 AM EDT [facility] [place] [facility] [address] [place] [phone] 08/22/2025 10:00 AM EDT Clinical Support [facility] [place] [facility] [address] [place] [phone] Bethany Mccabe RN 08/28/2025 9:00 AM EDT [facility] [facility] [address] [place] [phone] 09/04/2025 9:00 AM EDT [facility] [facility] [address] [place] [phone] 09/11/2025 9:00 AM EDT [facility] [place] [facility] [address] [place] [phone] 09/12/2025 10:00 AM EDT Clinical Support [facility] [place] [facility] [address] [place] [phone] Bethany Mccabe, HEIDI 09/18/2025 9:00 AM EDT [facility] [place] [facility] [address] [place] [phone] 09/25/2025 9:00 AM EDT [facility] [place] [facility] [address] [place] [phone] 10/02/2025 9:00 AM EDT [facility] [place] [facility] [address] [place] [phone] 10/03/2025 10:00 AM EDT Clinical Support [facility] [place] [facility] [address] [place] [phone] Bethany Mccabe RN 10/09/2025 9:00 AM EDT [facility] [facility] [address] [phone] 10/24/2025 10:00 AM EDT Clinical Support [facility] [address] [phone] Bethany Mccabe, HEIDI 11/14/2025 10:00 AM EDT Clinical Support [facility] [address] [place] [phone] Bethany Mccabe, RN 12/05/2025 10:00 AM EDT Clinical Support [facility] [place] [facility] [address] [place] [phone] Bethany Mccabe, RN 12/26/2025 10:00 AM EDT [facility] [place] [facility] [place] [facility] [address] [place] [phone] Bethany Mccabe RN 01/16/2026 10:00 AM EDT Clinical Support [address] [phone] Bethany Mccabe, HEIDI 02/06/2026 10:00 AM EDT Clinical Support [address] [phone] Bethany Mccabe, HEIDI 02/27/2026 10:00 AM EST Clinical Support [address] [phone] Bethany Mccabe, RN documented as of this encounter Visit Diagnoses Not on filedocumented in this encounter Care Teams Personal Loan Specialist Relationship Specialty Start Date End Date Regulo Ivy NP [address] [place] [phone] PCP - General [facility] 06/07/24 documented as of this encounter
--- OUTSIDE RECORDS SUMMARY | 2025-02-09 12:00 | XMS_ITS | Encounter Summary ---
Author Organization [facility] Address [address] [place] [address] Care Team Providers Care Mold Mover Name Role Phone Regulo Ivy NP Primary Care Provider [phone] Encounter Details Date Type Department Care Team (Late st Contact Info) Description 02/09/2025 12:00 PM EDT PACE Home Care / P[facility] Home Visit [facility] [place] [facility] [address] [place] [address] Dena Chavez Social History Tobacco [...] care for your loved ones. For example, childcare administrator or elderly care for an older adult? [...] 02/10/2025 8:39 AM Naomy Pa RN * Helen Suicide Severity Rating Scale (Screener/Recent Self-Report) Question [...] [facility] [address] [place] [address] Carmen Hartmann 02/12/2025 4:30 PM EDT PACE Home Care / P[facility] Home Visit [facility] [place] [facility] [address] [place] [address] Ashley Eastman 02/13/2025 8:30 AM EDT PACE Home Care / PACE Home Visit [facility] [place] [facility] [address] [place] [phone] Carmen Hartmann 02/13/2025 9:00 AM EDT [facility] Attendance[facility] [place] [facility] [address] [place] [address] 02/13/2025 4:30 PM EDT PACE Home Care / [facility] Home Visit [facility] [place] [facility] [address] [place] [phone] Ashley Eastman 02/14/2025 8:00 AM EDT PACE Home Care / P[facility] Home Visit [facility] [place] [facility] [address] [place] [phone] Carmen Hartmann 02/14/2025 9:30 AM EDT PACE Home Care / [facility] Home Visit [facility] [place] [facility] [address] [place] [phone] Ralph Loyola 02/14/2025 4:30 PM EDT PACE Home Care / [facility] [place] [facility] [address] [place] [phone] Ashley Eastman 02/15/2025 8:30 AM EDT P[facility] Home Care / [facility] [place] [facility] [address] [place] [phone] Marysol Diaz 02/15/2025 12:00 PM EDT PACE Home Care / [facility] [place] [facility] [address] [place] [phone] Natali Sanford 02/15/2025 5:30 PM EDT PACE Home Care / [facility] [place] [facility] [address] [place] [address] Joe Marysol 02/16/2025 8:30 AM EST P[facility] Home Care / [facility] [place] [facility] [address] [place] [phone] [facility]sol 02/16/2025 12:00 PM EST P[facility] Home Care / [facility] [place] [facility] [address] [place] [phone] Natali Sanford 02/16/2025 4:30 PM EST PACE Home Care / [facility] [facility] [place] [facility] [address] [place] [phone] [facility] Marysol 02/16/2025 5:30 PM EST PACE Home Care / [facility] [facility] [place] [facility] [address] [place] [phone] [facility] Marysol 02/17/2025 8:30 AM EST P[facility] Home Care / [facility] [facility] [place] [facility] [address] [place] [phone] Carmen Hartmann 02/17/2025 11:00 AM EST [facility] [place] [facility] [address] [place] [phone] Michelle Castillo MD [address] [place] [phone] 02/17/2025 4:30 PM EST PACE Home Care / [facility] [place] [facility] [address] [place] [phone] Ashley Eastman 02/18/2025 8:30 AM EST PACE Home Care / [facility] Home [facility] [place] [facility] [address] [place] [phone] Carmen Hartmann 02/18/2025 11:00 AM EST Office Visit [facility] [place] [facility] [address] [place] [address] Michelle Castillo MD [address] [address] Brigette East LPN 02/18/2025 4:30 PM EST PACE Home Care / [facility] [facility] [place] [facility] [address] [place] [phone] Ashley Eastman 02/19/2025 8:30 AM EST P[facility] Home Care / [facility] Home [facility] [place] [facility] [address] [place] [phone] Carmen Hartmann 02/19/2025 4:30 PM EST PACE Home Care / [facility] Home Visit [facility] [place] [facility] [address] [place] [phone] Ashley Eastman 02/20/2025 8:30 AM EST P[facility] Home Care / [facility] Home Visit [facility] [place] [facility] [address] [place] [phone] Carmen Hartmann 02/20/2025 9:00 AM EST [facility] [facility] [place] [facility] [address] [place] [address] 02/20/2025 4:30 PM EST PACE Home Care / [place] [facility] [place] [facility] [address] [place] [phone] Ashley Eastman 02/21/2025 8:00 AM EST P[facility] Home Care / [facility] [facility] [place] [facility] [address] [place] [phone] Carmen Hartmann 02/21/2025 9:30 AM EST P[facility] Home Care / [place] [facility] [place] [facility] [address] [place] [phone] Ralph Loyola 02/21/2025 4:30 PM EST P[facility] Home Care / [facility] Home Visit [facility] [place] [facility] [address] [place] [phone] Ashley Eastman 02/22/2025 12:00 PM EST PACE Home Care / [place] [facility] [place] [facility] [address] [place] [phone] Dena Chavez 02/23/2025 12:00 PM EST PACE Home Care / [place] Home Visit [facility] [place] [facility] [address] [place] [phone] Dena Chavez 02/24/2025 8:30 AM EST PACE Home Care / [place] Home Visit [facility] [place] [facility] [address] [place] [phone] Carmen Hartmann 02/24/2025 4:30 PM EST PACE Home Care / [place] [facility] Visit [facility] [place] [facility] [address] [place] [phone] Ashley Eastman 02/25/2025 8:30 AM EST PACE Home Care / [place] [facility] [place] [facility] [address] [place] [phone] Carmen Hartmann 02/25/2025 4:30 PM EST PACE Home Care / [place] Home Visit [facility] [place] [facility] [address] [place] [phone] Ashley Eastman 02/26/2025 8:30 AM EST PACE Home Care / [facility] Home Visit [facility] [place] [facility] [address] [place] [phone] Carmen Hartmann 02/26/2025 4:30 PM EST PACE Home Care / [facility] Home Visit [facility] [place] [facility] [address] [place] [phone] Ashley Eastman 02/27/2025 8:30 AM EST PACE Home Care / [facility] Home Visit [facility] [place] [facility] [address] [place] [phone] Carmen Hartmann 02/27/2025 9:00 AM EST [facility] [place] [facility] [address] [place] [phone] 02/27/2025 4:30 PM EST PACE Home Care / [facility] [facility] Visit [facility] [place] [facility] [address] [place] [phone] Ashley Eastman 02/28/2025 8:00 AM EST P[facility] Home Care / [facility] Visit [facility] [place] [facility] [address] [place] [phone] Carmen Hartmann 02/28/2025 9:30 AM EST PACE Home Care / [facility] Home Visit [facility] [place] [facility] [address] [place] [phone] Ralph Loyola 02/28/2025 4:30 PM EST PACE Home Care / [place] [facility] Visit [facility] [place] [facility] [address] [place] [phone] Ashley Eastman 03/01/2025 8:30 AM EST PACE Home Care / [place] [facility] Visit [facility] [place] [facility] [address] [place] [phone] Marysol Diaz 03/01/2025 12:00 PM EST PACE Home Care / [place] Home Visit [facility] [place] [facility] [address] [place] [phone] Natali Sanford 03/01/2025 5:30 PM EST PACE Home Care / [place] Home Visit [facility] [place] [facility] [address] [place] [phone] Marysol Diaz 03/02/2025 8:30 AM EST PACE Home Care / [place] Home Visit [facility] [place] [facility] [address] [place] [phone] Marysol Diaz 03/02/2025 12:00 PM EST PACE Home Care / [place] [facility] Visit [facility] [place] [facility] [address] [place] [phone] Natali Sanford 03/02/2025 4:30 PM EST PACE Home Care / [place] Home Visit [facility] [place] [facility] [address] [place] [phone] Marysol Diaz 03/02/2025 5:30 PM EST PACE Home Care / [facility] Home Visit [facility] [place] [facility] [address] [place] [phone] Marysol Diaz 03/03/2025 8:30 AM EST PACE Home Care / [facility] [facility] Visit [facility] [place] [facility] [address] [place] [phone] Carmen Hartmann 03/03/2025 4:30 PM EST PACE Home Care / [facility] Home Visit [facility] [place] [facility] [address] [place] [phone] Ashley Eastman 03/04/2025 8:30 AM EST PACE Home Care / [place] Home Visit [facility] [place] [facility] [address] [place] [phone] Carmen Hartmann 03/04/2025 4:30 PM EST PACE Home Care / [place] Home Visit [facility] [place] [facility] [address] [place] [phone] Ashley Eastman 03/05/2025 8:30 AM EST PACE Home Care / P[facility] Home Visit [facility] [place] [facility] [address] [place] [phone] Carmen Hartmann 03/05/2025 4:30 PM EST PACE Home Care / P[facility] Home Visit [facility] [place] [facility] [address] [place] [phone] Ashley Eastman 03/06/2025 8:30 AM EST PACE Home Care / PACE Home Visit [facility] [place] [facility] [address] [place] [phone] Carmen Hartmann 03/06/2025 9:00 AM EST [facility] Attend[facility] [place] [facility] [address] [place] [address] 03/06/2025 4:30 PM EST PACE Home Care / PACE Home Visit [facility] [place] [facility] [address] [place] [phone] Ashley Eastman 03/07/2025 Lab [facility] [place] Occupational Therapy [address] [place] [phone] Clemencia Napier, ADITYA Schizophrenia in partial remission with history of multiple episodes (CMS/HCC V24, CMS/HCC V28) 03/07/2025 8:00 AM EST PACE Home Care / PACE Home Visit [facility] [place] [facility] [address] [place] [address] Carmen Hartmann 03/07/2025 9:00 AM EST Clinical Support [facility] [place] [facility] [address] [place] [address] Bethany Mccabe, HEIDI 03/07/2025 9:30 AM EST PACE Home Care / PACE Home Visit [facility] [place] [facility] [address] [place] [phone] Ralph Loyola 03/07/2025 4:30 PM EST PACE Home Care / [facility] Visit [facility] [place] [facility] [address] [place] [phone] Ashley Eastman 03/08/2025 12:00 PM EST PACE Home Care / [facility] Home Visit [facility] [place] [facility] [address] [place] [phone] Dena Chavez 03/09/2025 12:00 PM EST PACE Home Care / [facility] Home Visit [facility] [place] [facility] [address] [place] [phone] Dena Chavez 03/10/2025 8:30 AM EST PACE Home Care / [facility] Home Visit [facility] [place] [facility] [address] [place] [phone] Carmen Hartmann 03/10/2025 4:30 PM EST PACE Home Care / [facility] Home Visit [facility] [place] [facility] [address] [place] [phone] Ashley Eastman 03/11/2025 8:30 AM EST PACE Home Care / [facility] Home Visit [facility] [place] [facility] [address] [place] [phone] Carmen Hartmann 03/11/2025 4:30 PM EST PACE Home Care / [facility] Home Visit [facility] [place] [facility] [address] [place] [phone] Ashley Eastman 03/12/2025 8:30 AM EST PACE Home Care / [facility] [facility] Visit [facility] [place] [facility] [address] [place] [phone] Carmen Hartmann 03/12/2025 4:30 PM EST PACE Home Care / [facility] Home Visit [facility] [place] [facility] [address] [place] [phone] Ashley Eastman 03/13/2025 8:30 AM EST PACE Home Care / [facility] Visit [facility] [place] [facility] [address] [place] [address] Carmen Hartmann 03/13/2025 9:00 AM EST [facility] Attend[facility] [place] [facility] [address] [place] [address] 03/13/2025 4:30 PM EST PACE Home Care / [place] [facility] Visit [facility] [place] [facility] [address] [place] [address] Ashley Eastman 03/14/2025 8:00 AM EST PACE Home Care / [facility] Home Visit [facility] [place] [facility] [address] [place] [phone] Carmen Hartmann 03/14/2025 9:30 AM EST PACE Home Care / [facility] Home Visit [facility] [place] [facility] [address] [place] [phone] Ralph Loyola 03/14/2025 4:30 PM EST PACE Home Care / [facility] Home Visit [facility] [place] [facility] [address] [place] [phone] Ashley Eastman 03/15/2025 8:30 AM EST PACE Home Care / [facility] Home Visit [facility] [place] [facility] [address] [place] [phone] Marysol Diaz 03/15/2025 12:00 PM EST PACE Home Care / [facility] [facility] Visit [facility] [place] [facility] [address] [place] [phone] Natali Sanford 03/15/2025 5:30 PM EST PACE Home Care / [facility] Home Visit [facility] [place] [facility] [address] [place] [phone] Marysol Diaz 03/16/2025 8:30 AM EST PACE Home Care / [facility] [facility] Visit [facility] [place] [facility] [address] [place] [phone] Marysol Diaz 03/16/2025 12:00 PM EST PACE Home Care / [facility] [facility] Visit [facility] [place] [facility] [address] [place] [phone] Natali Sanford 03/16/2025 4:30 PM EST PACE Home Care / [facility] [facility] [place] [facility] [address] [place] [phone] Marysol Diaz 03/16/2025 5:30 PM EST PACE Home Care / [facility] Visit [facility] [place] [facility] [address] [place] [phone] Marysol Diaz 03/17/2025 8:30 AM EST PACE Home Care / [facility] [facility] Visit [facility] [place] [facility] [address] [place] [phone] Carmen Hartmann 03/17/2025 4:30 PM EST PACE Home Care / [facility] [place] [facility] [address] [place] [phone] Ashley Eastman 03/18/2025 8:30 AM EST PACE Home Care / [facility] [place] [facility] [address] [place] [phone] Carmen Hartmann 03/18/2025 11:00 AM EST Office Visit [facility] [place] [facility] [address] [place] [phone] Michelle Castillo MD [address] [place] [phone] Brigette East LPN 03/18/2025 4:30 PM EST PACE Home Care / [facility] Visit [facility] [place] [facility] [address] [place] [phone] Ashley Eastman 03/19/2025 8:30 AM EST PACE Home Care / [facility] [place] [facility] [address] [place] [phone] Carmen Hartmann 03/19/2025 4:30 PM EST PACE Home Care / [facility] [place] [facility] [address] [place] [address] Ashley Eastman 03/20/2025 8:30 AM EST PACE Home Care / [facility] [place] [facility] [address] [place] [address] Carmen Hartmann 03/20/2025 9:00 AM EST [facility] [place] [facility] [address] [place] [address] 03/20/2025 4:30 PM EST PACE Home Care / [facility] [facility] [place] [facility] [address] [place] [phone] Ashley Eastman 03/21/2025 8:00 AM EST PACE Home Care / [facility] [facility] [place] [facility] [address] [place] [phone] Carmen Hartmann 03/21/2025 9:30 AM EST PACE Home Care / [facility] Visit [facility] [place] [facility] [address] [place] [address] Ralph Loyola 03/21/2025 4:30 PM EST PACE Home Care / [facility] [place] [facility] [address] [place] [phone] Ashley Eastman 03/22/2025 12:00 PM EST PACE Home Care / [facility] [facility] Visit [facility] [place] [facility] [address] [place] [phone] Dena Chavez 03/23/2025 12:00 PM EST PACE Home Care / [facility] [facility] Visit [facility] [place] [facility] [address] [place] [phone] Dena Chavez 03/24/2025 8:30 AM EST PACE Home Care / [facility] [facility] Visit [facility] [place] [facility] [address] [place] [phone] Carmen Hartmann 03/24/2025 9:45 AM EST Appointment [facility] [address] [place] [address] Lakia Hou, [facility] 03/24/2025 4:30 PM EST PACE Home Care / [facility] [facility] Visit [facility] [place] [facility] [address] [place] [phone] Ashley Eastman 03/25/2025 8:30 AM EST PACE Home Care / [facility] [facility] Visit [facility] [place] [facility] [address] [place] [phone] Carmen Hartmann 03/25/2025 4:30 PM EST PACE Home Care / [facility] Visit [facility] [place] [facility] [address] [place] [phone] Ashley Eastman 03/26/2025 8:30 AM EST PACE Home Care / [facility] Visit [facility] [place] [facility] [address] [place] [phone] Carmen Hartmann 03/26/2025 4:30 PM EST PACE Home Care / [facility] [facility] Visit [facility] [place] [facility] [address] [place] [phone] Ashley Eastman 03/27/2025 8:30 AM EST PACE Home Care / [facility] [facility] Visit [facility] [place] [facility] [address] [place] [phone] Carmen Hartmann 03/27/2025 9:00 AM EST [facility] Att[facility] [place] [facility] [address] [place] [address] 03/27/2025 2:40 PM EST Clinical Support [facility] [place] [address] [place] [address] 03/27/2025 4:30 PM EST PACE Home Care / PACE Home Visit [facility] [address] [place] [address] Ashley Eastman 03/28/2025 8:00 AM EST PACE Home Care / P[facility] Home Visit [facility] [address] [place] [address] Carmen Hartmann 03/28/2025 10:00 AM EST Clinical Support [facility] [place] [facility] [address] [place] [address] Bethany Mccabe RN 03/28/2025 4:30 PM EST PACE Home Care / P[facility] Home Visit [facility] [place] [facility] [address] [place] [phone] Ashley Eastman 03/29/2025 8:30 AM EST PACE Home Care / P[facility] Home Visit [facility] [place] [facility] [address] [place] [phone] Marysol Diaz 03/29/2025 12:00 PM EST PACE Home Care / [facility] [address] [place] [address] Natali Sanford 03/29/2025 5:30 PM EST PACE Home Care / [facility] Visit [facility] [place] [facility] [address] [place] [phone] Marysol Diaz 03/30/2025 8:30 AM EST PACE Home Care / [facility] Visit [facility] [place] [facility] [address] [place] [phone] Marysol Diaz 03/30/2025 12:00 PM EST PACE Home Care / [facility] Visit [facility] [place] [facility] [address] [place] [phone] Natali Sanford 03/30/2025 4:30 PM EST PACE Home Care / [facility] Visit [facility] [place] [facility] [address] [place] [address] Marysol Diaz 03/30/2025 5:30 PM EST PACE Home Care / [facility] [facility] Visit [facility] [place] [facility] [address] [place] [phone] Marysol Diaz 03/31/2025 8:30 AM EST PACE Home Care / [facility] [place] [facility] [address] [place] [phone] Carmen Hartmann 03/31/2025 4:30 PM EST PACE Home Care / [facility] [facility] [place] [facility] [address] [place] [phone] Ashley Eastman 04/01/2025 8:30 AM EST PACE Home Care / [facility] [place] [facility] [address] [place] [phone] Carmen Hartmann 04/01/2025 1:15 PM EST [facility] External Visit [facility] [place] [address] [place] [address] 04/01/2025 4:30 PM EST PACE Home Care / [place] [facility] [place] [facility] [address] [place] [phone] Ashley Eastman 04/02/2025 8:30 AM EST PACE Home Care / [place] [facility] Visit [facility] [place] [facility] [address] [place] [phone] Carmen Hartmann 04/02/2025 4:30 PM EST PACE Home Care / [facility] [facility] [place] [facility] [address] [place] [address] Ashley Eastman 04/03/2025 8:30 AM EST PACE Home Care / [facility] [facility] [place] [facility] [address] [place] [address] Carmen Hartmann 04/03/2025 9:00 AM EST [facility] [facility] [place] [facility] [address] [place] [address] 04/03/2025 4:30 PM EST PACE Home Care / [place] [facility] [place] [facility] [address] [place] [address] Ashley Eastman 04/04/2025 8:00 AM EST PACE Home Care / [facility] [facility] [place] [facility] [address] [place] [address] Carmen Hartmann 04/04/2025 9:30 AM EST PACE Home Care / [facility] [facility] [place] [facility] [address] [place] [address] Ralph Loyola 04/04/2025 4:30 PM EST PACE Home Care / [facility] [place] [facility] [address] [place] [phone] Ashley Eastman 04/05/2025 12:00 PM EST PACE Home Care / [facility] [facility] [place] [facility] [address] [place] [phone] Dena Chavez 04/06/2025 12:00 PM EST PACE Home Care / [facility] [facility] [place] [facility] [address] [place] [phone] Dena Chavez 2025 8:30 AM EST PACE Home Care / [facility] [address] [place] [address] Carmen Hartmann 2025 4:30 PM EST PACE Home Care / [facility] Visit [facility] [address] [place] [address] Ashley Eastman 04/08/2025 8:30 AM EST PACE Home Care / [facility] [place] [facility] [address] [place] [address] Carmen Hartmann 04/08/2025 4:30 PM EST PACE Home Care / [facility] Visit [facility] [place] [facility] [address] [place] [address] Ashley Eastman 04/09/2025 8:30 AM EST PACE Home Care / [facility] Visit [facility] [place] [facility] [address] [place] [address] Carmen Hartmann 04/09/2025 4:30 PM EST PACE Home Care / [facility] Visit [facility] [address] [place] [address] Ashley Eastman 04/10/2025 8:30 AM EST PACE Home Care / [facility] Visit [facility] [place] [facility] [address] [place] [address] Carmen Hartmann 04/10/2025 9:00 AM EST [facility] Att[facility] [place] [facility] [address] [place] [address] 04/10/2025 4:30 PM EST PACE Home Care / [facility] [facility] [place] [facility] [address] [place] [address] Ashley Eastman 04/11/2025 8:00 AM EST P[facility] Home Care / [facility] [place] [facility] [address] [place] [phone] Carmen Hartmann 04/11/2025 9:30 AM EST PACE Home Care / [facility] Visit [facility] [place] [facility] [address] [place] [phone] Ralph Loyola 04/11/2025 4:30 PM EST PACE Home Care / [facility] Visit [facility] [place] [facility] [address] [place] [phone] Ashley Eastman 04/12/2025 8:30 AM EST PACE Home Care / [facility] Visit [facility] [place] [facility] [address] [place] [phone] Marysol Diaz 04/12/2025 12:00 PM EST [facility] Home [facility] Marsha ABRAMS [facility] [address] [place] [phone] Natali Sanford 04/12/2025 5:30 PM EST [facility] Home [facility] Marsha ABRAMS [facility] [address] [place] [phone] Marysol Diaz 04/15/2025 11:00 AM EST Office Visit [facility] [address] [place] [phone] Michelle Castillo MD [address] [place] [phone] Brigette East LPN 04/17/2025 9:00 AM EST [facility] Att[facility] [place] [facility] [address] [place] [phone] 04/18/2025 10:00 AM EST Clinical Support [facility] [address] [place] [phone] Bethany Mccabe RN 04/24/2025 9:00 AM EST [facility] [address] [place] [phone] 04/24/2025 11:30 AM EST [facility] [address] [phone] 05/01/2025 9:00 AM EST P[facility] Attendance/Day Center [facility] P[facility] Day [address] [phone] 05/08/2025 9:00 AM EST [facility] [address] [place] [phone] 05/09/2025 10:00 AM EST Clinical Support [facility] PACE [address] [phone] Bethany Mccabe RN 05/13/2025 11:00 AM EST Office Visit [facility] [address] [phone] Michelle Castillo MD [address] [place] [phone] Brigette East LPN 05/15/2025 9:00 AM EST [facility] Attendance/Day Center [facility] Day [address] [address] 05/22/2025 9:00 AM EST [facility] P[facility] Day [address] [address] 05/29/2025 9:00 AM EST [facility] P[facility] Day [address] [address] 05/30/2025 10:00 AM EST Clinical Support [facility] PACE [address] [phone] Bethany Mccabe RN 06/05/2025 9:00 AM EST [facility] P[facility] Day [address] [address] 06/10/2025 11:00 AM EST Office Visit [facility] PACE [address] [phone] Michelle Castillo MD [address] [phone] Brigette East LPN 06/12/2025 9:00 AM EST [facility] Attendance/Day Center [facility] Day [facility] [address] [place] [phone] 06/19/2025 9:00 AM EST [facility] Attendance/Day Center [facility] P[facility] Day [address] [address] 06/20/2025 10:00 AM EST Clinical Support [address] [phone] Bethany Mccabe RN 06/26/2025 9:00 AM EDT [facility] Attendance/Day Center [facility] Day [address] [address] 06/27/2025 1:20 PM EDT Office Visit Gastroenterology - [address] [place] [phone] Analisa Perez, ALONSO [address] [place] [address] 07/03/2025 9:00 AM EDT [facility] Attendance/Day Center [facility] P[facility] Day [address] [address] 07/10/2025 9:00 AM EDT [facility] Attendance/Day Center [facility] Day [address] [address] 07/11/2025 10:00 AM EDT Clinical Support [address] [phone] Bethany Mccabe RN 07/17/2025 9:00 AM EDT [facility] Att[facility] [place] [facility] [address] [place] [address] 07/17/2025 3:30 PM EDT P[facility] External Visit Marsha ABRAMS MA [address] [place] [phone] 07/24/2025 9:00 AM EDT [facility] Att[facility] [address] [place] [phone] 07/31/2025 9:00 AM EDT [facility] Att[facility] [place] [facility] [address] [place] [phone] 08/01/2025 10:00 AM EDT Clinical Support [facility] [address] [place] [phone] Bethany Mccabe RN 08/07/2025 9:00 AM EDT [facility] Attend[facility] [place] [facility] [address] [place] [phone] 08/14/2025 9:00 AM EDT [facility] Att[facility] [place] [facility] [address] [place] [phone] 08/21/2025 9:00 AM EDT [facility] Attendance[facility]Day [facility] [place] [facility] [address] [place] [phone] 08/22/2025 10:00 AM EDT Clinical Support [facility] [place] [facility] [address] [place] [phone] Bethany Mccabe RN 08/28/2025 9:00 AM EDT [facility] Attend[facility] [address] [place] [phone] 09/04/2025 9:00 AM EDT [facility] Attendance[facility] [address] [place] [phone] 09/11/2025 9:00 AM EDT [facility] Att[facility] [place] [facility] [address] [place] [phone] 09/12/2025 10:00 AM EDT Clinical Support [facility] [address] [place] [phone] Bethany Mccabe, HEIDI 09/18/2025 9:00 AM EDT [facility] [address] [place] [phone] 09/25/2025 9:00 AM EDT [facility] [address] [place] [phone] 10/02/2025 9:00 AM EDT [facility] [address] [place] [phone] 10/03/2025 10:00 AM EDT Clinical Support [facility] [address] [place] [phone] Bethany Mccabe RN 10/09/2025 9:00 AM EDT [facility] Attendance[facility]Day Center [facility] [place] [facility] [address] [phone] 10/24/2025 10:00 AM EDT Clinical Support [facility] [address] [phone] Bethany Mccabe, HEIDI 11/14/2025 10:00 AM EDT Clinical Support [facility] [address] [place] [phone] Bethany Mccabe, RN 12/05/2025 10:00 AM EDT Clinical Support [facility] [address] [place] [phone] Bethany Mccabe, RN 12/26/2025 10:00 AM EDT Clinical Support [facility] [address] [place] [phone] Bethany Mccabe RN 01/16/2026 10:00 AM EDT Clinical Support [address] [phone] Bethany Mccabe RN 02/06/2026 10:00 AM EDT Clinical Support [address] [phone] Bethany Mccabe RN 02/27/2026 10:00 AM EST Clinical Support [address] [phone] Bethany Mccabe RN documented as of this encounter Visit Diagnoses Not on filedocumented in this encounter Additional Health Concerns Infection Onset Date Last Indicated Resolved Time Gastrointestinal Rule-Out 02/10/2025 02/10/2025 documented as of this encounter Care Teams Mold Mover Relationship Specialty Start Date End Date Regulo Ivy NP [address] [place] [phone] PCP - General [facility] 06/07/24 documented as of this encounter
--- OUTSIDE RECORDS SUMMARY | 2025-02-09 13:56 | XMS_ITS | Encounter Summary ---
Author Organization [facility] Address [address] [place] [address] Care Team Providers Care Employment Specialist Name Role Phone Regulo Ivy NP Primary Care Provider [phone] Reason for Visit * Reason Comments Psychiatric Evaluation * Consultation (Routine) - Closed Specialty Diagnoses / Procedures Referred By Contac t Referred To Contact Emergency Medicine Diagnoses Mild dementia with anxiety, unspecified dementia type ([facility] V24, [facility] V28) Schizoaffective disorder, bipolar type ([facility] V24, [facility] V28) Paranoia ([facility] V24, [facility] V28) Abnormal urinalysis Regulo Ivy NP [address] [address] Phone: tel: fax: [facility] Emergency [address] [place] [address] Phone: tel: Referral ID Status Reason Start Date Expiration Date V isits Requested Visits Authorized [id number] Closed Consult and Treat 02/09/2025 02/11/2025 1 1 Encounter Details Date Type Department Care Team (Late st Contact Info) Description 02/09/2025 1:56 PM EDT - 02/11/2025 2:53 PM EDT Emergency [facility] Emergency [address] [place] [id number] Sd Raman MD [address] [place] [address] Fernando Maciel MD [address] [address] Ignacia Beckham MD [address] [place], [place] [id number] Manjit Salazar MD [address] [place] [id number] Sukumar Cano MD [address] [place] [address] Daphne Delacruz MD [address] [place] [address] Paranoia (CMS/HCC V24, CMS/HCC V28) (Primary Dx); Bipolar affective disorder, remission status unspecified (CMS/HCC V24, CMS/HCC V28); Abnormal urinalysis Discharge Disposition: Psychiatric Hospital Social History Tobacco Use Types Packs/Day Years [...] EST Sexual Orientation Choose not to disclose 02/05/ 2025 10:13 AM EST documented as of this encounter Last Filed Vital Signs Vital Sign Reading Time Taken Comments Blood Pressure 108/97 02/11/2025 12:51 PM EDT Pulse 58 02/11/2025 12:51 PM EDT Temperature 36.5 C (97.7 F) 02/11/2025 6:44 AM EDT Respiratory Rate 18 02/11/2025 12:51 PM EDT Oxygen Saturation 99% 02/11/2025 12:51 PM EDT Inhaled Oxygen Concentration - - Weight 113 kg (250 lb) 02/09/2025 2:19 PM EDT Height 162.6 cm (5' 4 ) 02/09/2025 2:19 PM EDT Body Mass Index 42.91 02/09/2025 2:19 PM EDT documented in this encounter Functional Status * [...] 3:31 PM EDT Malachi Rehman RN * Calculated C-SSRS Risk Score (Lifetime/Recent) Answer Date of Assessment Author No Risk Indicated 02/10/2025 8:39 AM EDT Naomy Masterson RN * [place] Suicide Severity Rating Scale (Screener/Recent Self-Report) Question Answer Date of Assessment Author 1. Wish to be (Past 1 Month) No 8:39 AM EDT Naomy Masterson RN 2. Non-Specific Active Suici sage Thoughts (Past 1 Month) No 02/10/2025 8:39 AM EDT Naomy Masterson, RN 6. Suicidal Behavior (Lifetime) No 5 8:39 AM EDT Naomy Masterson, HEIDI documented as of this encounter Mental Status * Because of a physical, mental, or emotional condition, do you have serious difficulty concentrating, remembering, or making decisions? (5 years old or older) Answer Entry Date Author Yes 02/03/2025 3:31 PM EDT Malachi Rehman RN documented in this encounter Medications at Time of Discharge acetaminophen (TylenoL) 325 mg tabletIndications:DM type 2 with diabetic peripheral neuropathy ([facility] V24, [facility] V28),Left hip pain,Insomnia due to other mental disorder Take 2 tablets (650 mg total) by mouth 4 (four) times a day. 30 tablet 5 12/20/2024 06/19/19 26 benztropine (COGENTIN) 1 mg tabletIndications:Mil d persistent asthma without complication,Mixed hyperlipidemia,Overac tive bladder,Hypothyroidis m due to Billy thyroiditis,Undiffere ntiated schizophrenia ([facility] V24, [facility] V28) Take 1 tablet (1 mg total) by mouth 2 (two) times a day. 60 each 11 10/14/2024 10/15/19 26 brexpiprazole (REXULTI) 2 mg tabletIndications:Lucy izoaffective disorder, bipolar type ([facility] V24, [facility] V28) Take 1 tablet (2 mg total) by mouth 1 (one) time each day for 7 days, THEN 1.5 tablets (3 mg total) 1 (one) time each day for 7 days, THEN 2 tablets (4 mg total) 1 (one) time each day. 78 tablet 01/23/2025 03/08/20 25 brexpiprazole (REXULTI) 4 mg tabletIndications:Lucy izoaffective disorder, bipolar type (CMS/HCC V24, CMS/HCC V28) Take 1 tablet (4 mg total) by mouth 1 (one) time each day. 28 tablet 11 02/27/2025 02/28/20 26 clopidogreL (Plavix) 75 mg tabletIndications:Alexandra betes mellitus with peripheral vascular disease ([facility] V24, [facility] V28),Type 2 diabetes mellitus with stage 3a chronic kidney disease, without long-term current use of insulin [place] [place], [facility] V28),Sacroiliitis, not elsewhere classified ([facility] [place]),Lumbar spondylosis,Seizure ([facility] [place], [facility] V28) Take 1 tablet (75 mg total) by mouth 1 (one) time each day. 30 each 02/05/2025 02/06/20 26 ergocalciferol (VITAMIN D-2) 1,250 mcg (50,000 unit) capsuleIndications:Vi tamin D deficiency,Left hip pain,Tendonitis, Achilles, right,Primary osteoarthritis of both knees Take 1 capsule (50,000 Units total) by mouth every 30 (thirty) days. 1 capsule 02/03/2025 02/04/20 26 fluticasone furoate-vilanteroL (Breo Ellipta) 100-25 mcg/dose inhalerIndications:Ch ronic obstructive pulmonary disease, unspecified COPD type ([facility] [place], [facility] V[facility]) Inhale 1 puff by mouth 1 (one) time each day. 1 each 12 11/01/2024 11/02/19 26 gabapentin (Neurontin) 100 mg capsuleIndications:Di abetes mellitus with peripheral vascular disease ([facility] [place], [facility] V[facility]),Type 2 diabetes mellitus with stage 3a chronic kidney disease, without long-term current use of insulin ([facility] [place], [facility] V[facility]),Sacroiliitis, not elsewhere classified ([facility] [place]),Lumbar spondylosis Take 2 capsules (200 mg total) by mouth 2 (two) times a day. 120 each 11 02/05/2025 02/06/20 26 levETIRAcetam (Keppra) 750 mg tabletIndications:Vesta montez ([facility] [place], [facility] V[facility]) Take 2 tablets (1,500 mg total) by mouth 2 (two) times a day. 120 each 11 02/05/2025 02/06/20 26 levothyroxine (Synthroid) 100 mcg tabletIndications:Mil d persistent asthma without complication,Mixed hyperlipidemia,Overac tive bladder,Hypothyroidis m due to Billy thyroiditis,Undiffere ntiated schizophrenia ([facility] [place], [facility] V28) Take 1 tablet (100 mcg total) by mouth 1 (one) time each day before breakfast. 30 each 10/14/2024 10/15/19 26 lisinopriL (PRINIVIL,ZESTRIL) 5 mg tabletIndications:Stacie crystal hypertension Take 1 tablet (5 mg total) by mouth 1 (one) time each day. 30 each 09/11/2024 09/12/19 26 LORazepam (ATIVAN) 0.5 mg tabletIndications:Anx iety Take 1 tablet (0.5 mg total) by mouth at bedtime. Max Daily Amount: 0.5 mg 30 each 10/31/2024 04/29/19 26 metFORMIN (GLUCOPHAGE) 500 mg tabletIndications:DM type 2 with diabetic peripheral neuropathy ([facility] V24, [facility] V28),Left hip pain,Insomnia due to other mental disorder Take 1 tablet (500 mg total) by mouth 1 (one) time each day. At 17:00 30 each 12/20/2024 12/21/19 26 miconazole (Micatin) 2 % creamIndications:Cand idiasis of genitalia in female Apply topically 2 (two) times a day. 30 g 1 11/07/2024 11/08/19 26 mirabegron (Myrbetriq) 50 mg tablet extended release 24 hr 24 hr tabletIndications:Mil d persistent asthma without complication,Mixed hyperlipidemia,Overac tive bladder,Hypothyroidis m due to Billy thyroiditis,Undiffere ntiated schizophrenia ([facility] V24, [facility] V28) Take 1 tablet (50 mg total) by mouth 1 (one) time each day. 30 each 10/14/2024 10/15/19 26 montelukast (Singulair) 10 mg tabletIndications:Mil d persistent asthma without complication,Mixed hyperlipidemia,Overac tive bladder,Hypothyroidis m due to Billy thyroiditis,Undiffere ntiated schizophrenia ([facility] V24, [facility] V28) Take 1 tablet (10 mg total) by mouth at bedtime. 30 each 10/14/2024 10/15/19 26 nitroglycerin (Nitrostat) 0.4 mg SL tabletIndications:Soniya st pain at rest Place 1 tablet (0.4 mg total) under the tongue every 5 (five) minutes if needed for chest pain for up to 25 doses. 25 tablet 2 01/07/2025 pantoprazole (PROTONIX) 40 mg EC tabletIndications:Gas troesophageal reflux disease without esophagitis Take 1 tablet (40 mg total) by mouth 1 (one) time each day before breakfast. Do not crush, chew, or split. 30 each 11 02/05/2025 02/06/20 26 psyllium husk, with sugar, (Metamucil Fiber Thin) 2.5 gram waferIndications:[employer] klaudia idiopathic constipation Take 2 wafers by mouth 1 (one) time each day. 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 30 tablet 11 11/01/2024 11/02/19 26 traZODone (DESYREL) 100 mg tabletIndications:Ins omnia due to other mental disorder Take 0.5 tablets (50 mg total) by mouth at bedtime as needed for sleep. 14 tablet 11 01/23/2025 01/24/20 26 documented as of this encounter Discharge Disposition Disposition Code Departure Means Destination Comment s [facility] documented in this encounter Progress Notes * Phuong Ruby RN - 02/11/2025 11:38 AM EDT Report called and given to Edelmira GORDON at [facility] Phuong Ruby RN 02/11/25 1138 * PIYUSH Oleary - 02/11/2025 10:43 AM EDT Patient has been accepted to [facility] for today at 1:30pm byDr. Radha Block. They will call for nurse - to - nurse report. ALTON Victoria, [facility] Behavioral Health Clinical Embedded Linux Developer [facility] * Ramona Lee MD - 02/11/2025 8:53 AM EDT Connected to patient's room via I-pad with help from vehicle monitor technician; assistance much appreciated. Patient consented verbally to visit via Telehealth video conferencing modality. Patient educated asto likely differences between Telehealth care and face to face care. Patient informed of the risks and benefits of using Telehealth services and procedures and likely risks and benefits of using alternatives to Telehealth services. Patient informed of the right to refuse Telehealth services at any time without jeopardizing his/her right to future care, services or benefits. Patient was informed that he/she is being seen solely by Ramona Lee MD today via secure audio/visual connection in alocked virtual exam room. Persons present on patient's end: Patient Persons present on provider's end in [place]: Ramona Lee MD CHART REVIEWED, PATIENT INTERVIEWED. CHIEF COMPLAINT: Mood, paranoia Time spent on encounter: 10 min (5 min face to face, 5 min in chart review and documentation) Billing: [facility] HISTORY OF PRESENT ILLNESS Lashanda Sanders is a 64 y.o. female with psychiatric history significant for bipolar disorder and anxiety and medical history significant for but not limited to hypothyroidism, DM, epilepsy, melanoma, migraines, and FERMÍN who is in ED with psychiatric symptoms. Psychiatry was consulted for managementof paranoia and mood symptoms. The patient states that she just had a seizure, so she is not doing well. She remembers having an episode of shaking but couldn't stop the shaking. She states that she also has a ZHOU at present. She tolerated the Latuda well last night. She denies any current AVH or paranoia. She denies feeling depressed and doesn't have any symptoms of emigdio/hypomania. The patient denies any suicidal ideations, plan, or intent. Per nursing, there has been no seizure- like activity with this patient this morning. REVIEW OF SYSTEMS CONSTITUTIONAL: The patient denies fevers, chills, sweats and body ache. HEENT: Denies ZHOU, blurry vision, eye pain, tinnitus, vertigo, gingival bleeding, sore throat, neck or thyroid masses. RESPIRATORY: Denies cough, sputum, hemoptysis. CARDIAC: Denies chest pain, pressure, palpitations, irregular heartbeats. Denies lower extremity edema. GASTROINTESTINAL: Denies abdominal pain, changes in bowel habits or any bleeding on toilet paper. GENITOURINARY: Denies dysuria, hematuria, nocturia or frequency. NEUROLOGIC: Denies headaches, dizziness, syncope. MUSCULOSKELETAL: Negative for arthritis. Denies muscle weakness. No limitation in range of motion. VASCULAR: Denies claudication and cramping. ENDOCRINOLOGY: Denies heat or cold intolerance. HEMATOLOGY: Denies easy bleeding or blood transfusion. DERMATOLOGY: Denies changes in moles or pigmentation changes. Psychiatric ROS: Depression: See HPI. Emigdio: See HPI. Psychosis: The patient denies audio or visual hallucinations, delusions, thought broadcasting, thought insertion, delusions of reference, catatonia, or disorganized speech or behavior. Anxiety: The patient denies any excessive worry, restlessness, fatigue, poor concentration, irritability, muscle tension, or anxiety-related sleep changes. Panic: The patient denies any recent panic episodes. PTSD: The patient does not endorse any current s/s related to PTSD. OCD: The patient denies intrusive thoughts, repetitive behaviors, counting, checking, washing, symmetry, or grouping and ordering that take up more than 1 hour of the day. Eating Disorder: The patient denies feeling overweight, excessive dieting or exercise to lose weight, overuse of laxatives, binging/purging behaviors, and amenorrhea. MEDICAL HISTORY Non-psychiatric medical history: Medical History[1] Current medications: MEDSSCHEDULED[2] ALLERGIES: Current Allergies[3] MSE: Appearance: Alert and oriented x 3; seems off regarding situation. Appears stated age, well groomed. Pleasant and cooperative. Adequate eye contact. No psychomotor agitation or retardation. No evidence of EPS. Muscle tone/station: WNL. Orientation: See above. Attention and Concentration: No deficits in attention and concentration. Speech: Normal rate, rhythm, volume, and tone. Mood: Not good. Affect: Appears dysphoric with restricted range, mood congruent. No lability noted. Thought Process: Fixated on belief that she had a seizure this morning. No FOI or TOMMIE. No thought blocking. Thought Content: Denies suicidal/homicidal ideation. Denies auditory/visual hallucinations. No delusions. No paranoia. Perception/associations: Denies hallucinations, somatic complaints, or tactile disturbances Suicidal Ideations: Pt denies SI, intent, or plan. Low acute risk. Currently is future oriented, motivated for treatment, and compliant with medications. Homicidal Ideations: Pt denies HI, intent, or plan. Low acute risk. No history of violence. No access to firearms. Behavior: No abnormal behavior during interview. Fund of Knowledge: Appropriate for age and level of education Intellect/Memory: Estimated as average based on interview. Immediate, recent, and remote memory is grossly intact. Language: No deficits Judgment/Insight: limited Musculoskeletal Exam: Movement: [x]normal []abnormal [-]dyskinesias [-]tremors [-]tics Station: [x]upright []hyperflexed/stooped []hyperextended Muscle strength [x]appears normal [-]appears abnormal Muscle tone: [x]normal [-]muscle rigidity LABS: Admission on 02/09/2025 Component Date Value Ref Range Status Sodium 02/09/2025 138 133 - 145 mmol/L Final Potassium 02/09/2025 4.4 3.5 - 5.5 mmol/L Final Chloride 02/09/2025 107 96 - 110 mmol/L Final CO2 02/09/2025 27 21 - 32 mmol/L Final Anion Gap 02/09/2025 4 3 - 11 Final Glucose 02/09/2025 111 (H) 70 - 100 mg/dL Final BUN 02/09/2025 18 5 - 25 mg/dL Final Creatinine 02/09/2025 0.94 0.50 - 1.10 mg/dL Final eGFR 02/09/2025 67 >=60 mL/min/1.73m2 Final Calculation based on the Chronic Kidney Disease Epidemiology Collaboration (CKD- EPI) equation refitwithout adjustment for race. BUN/Creatinine Ratio 02/09/2025 19.1 Final Calcium 02/09/2025 8.5 8.5 - 10.5 mg/dL Final AST (SGOT) 02/09/2025 22 10 - 42 unit/L Final ALT (SGPT) 02/09/2025 44 10 - 60 unit/L Final Alkaline Phosphatase 02/09/2025 75 42 - 121 unit/L Final Total Protein 02/09/2025 6.3 6.0 - 8.0 g/dL Final Albumin 02/09/2025 3.5 3.2 - 5.0 g/dL Final Total Bilirubin 02/09/2025 0.2 0.0 - 1.4 mg/dL Final Ethanol Level 02/09/2025 <3 0 - 10 mg/dL Final Acetaminophen Level 02/09/2025 6.9 (L) 10.0 - 30.0 mcg/mL Final Salicylate Level 02/09/2025 <1.7 (L) 2.0 - 29.0 mg/dL Final Amphetamine Screen, Ur 02/09/2025 Negative Negative Final Certain OTC medications containing ephedrine, phenylephrine, pseudoephedrine and phenylpropanolamine can cause false positive results. Barbiturate Screen, Ur 02/09/2025 Negative Negative Final Benzodiazepine Screen, Ur 02/09/2025 Negative Negative Final Cocaine Screen, Ur 02/09/2025 Negative Negative Final Opiate Screen, Ur 02/09/2025 Negative Negative Final Cannabinoid (THC) Screen, Ur 02/09/2025 Negative Negative Final Specimens from patients taking pantoprazole sodium (Protonix) have been shown to produce false positive results. Oxycodone Screen, Ur 02/09/2025 Negative Negative Final Fentanyl, Ur 02/09/2025 Negative Negative Final Buprenorphine Screen Urine 02/09/2025 Negative Negative Final PCP Scrn, Ur 02/09/2025 Negative Negative Final Assay cutoff 25 ng/mL Semi-quantitative assay for screening purposes only. Unconfirmed screening result should not be used for non-medical purposes. *ALTERNATE METHOD CONFIRMATION DONE UPON REQUEST ONLY* Methadone Screen, Urine 02/09/2025 Negative Negative Final Assay cutoff 300 ng/mL Semi-quantitative assay for screening purposes only. Unconfirmed screening result should not be used for non-medical purposes. *ALTERNATE METHOD CONFIRMATION DONE UPON REQUEST ONLY* WBC 02/09/2025 9.2 4.8 - 10.8 K/mcL Final RBC 02/09/2025 3.90 3.80 - 4.80 M/mcL Final Hemoglobin 02/09/2025 11.8 11.5 - 16.0 g/dL Final Hematocrit 02/09/2025 36.5 35.0 - 47.0 % Final MCV 02/09/2025 94.8 79.0 - 98.0 FL Final MCH 02/09/2025 30.6 27.0 - 32.0 pcg Final MCHC 02/09/2025 32.3 32.0 - 37.0 g/dL Final RDW 02/09/2025 13.0 11.0 - 15.0 % Final Platelets 02/09/2025 226 130 - 400 K/mcL Final MPV 02/09/2025 8.9 7.0 - 11.0 FL Final NRBC 02/09/2025 0.0 <1.0 % Final NRBC Absolute 02/09/2025 0.00 <0.10 K/mcL Final Neutrophils Relative 02/09/2025 48.3 % Final Lymphocytes Relative 02/09/2025 32.9 % Final Monocytes Relative 02/09/2025 8.1 % Final Eosinophils Relative 02/09/2025 9.1 % Final Basophils Relative 02/09/2025 0.8 % Final Immature Granulocytes Relative 02/09/2025 0.8 % Final Neutrophils Absolute 02/09/2025 4.44 1.50 - 7.00 K/mcL Final Lymphocytes Absolute 02/09/2025 3.02 1.00 - 5.00 K/mcL Final Monocytes Absolute 02/09/2025 0.74 0.20 - 1.00 K/mcL Final Eosinophils Absolute 02/09/2025 0.83 (H) 0.00 - 0.50 K/mcL Final Basophils Absolute 02/09/2025 0.07 0.00 - 0.20 K/mcL Final Immature Granulocytes Absolute 02/09/2025 0.07 (H) 0.00 - 0.03 K/mcL Final Specific [place] Urine 02/09/2025 1.018 1.003 - 1.030 Final pH, Urine 02/09/2025 6.0 5.0 - 8.0 pH Final Leukocytes, Urine 02/09/2025 Large (A) Negative Final Nitrite, Urine 02/09/2025 Negative Negative Final Protein, Urine 02/09/2025 Trace <=Trace mg/dL Final Glucose, Urine 02/09/2025 Negative Negative mg/dL Final Ketones, Urine 02/09/2025 Negative Negative mg/dL Final Urobilinogen, Urine 02/09/2025 0.2 0.2 - 1.0 mg/dL Final Bilirubin, Urine 02/09/2025 Negative Negative Final Blood, Urine 02/09/2025 Negative Negative Final RBC, Urine 02/09/2025 2.7 0 - 4 /HPF Final WBC, Urine 02/09/2025 70.3 (H) 0 - 4 /HPF Final Squamous Epithelial, Urine 02/09/2025 31 0 - 60 /LPF Final Bacteria, Urine 02/09/2025 Negative Negative /HPF Final Hyaline Casts, Urine 02/09/2025 1.2 0 - 3 /LPF Final Admission on 02/03/2025, Discharged on 02/05/2025 Component Date Value Ref Range Status Sodium 02/03/2025 137 133 - 145 mmol/L Final Potassium 02/03/2025 4.7 3.5 - 5.5 mmol/L Final Chloride 02/03/2025 105 96 - 110 mmol/L Final CO2 02/03/2025 29 21 - 32 mmol/L Final Anion Gap 02/03/2025 3 3 - 11 Final Glucose 02/03/2025 148 (H) 70 - 100 mg/dL Final BUN 02/03/2025 18 5 - 25 mg/dL Final Creatinine 02/03/2025 1.15 (H) 0.50 - 1.10 mg/dL Final eGFR 02/03/2025 53 (L) >=60 mL/min/1.73m2 Final Calculation based on the Chronic Kidney Disease Epidemiology Collaboration (CKD- EPI) equation refitwithout adjustment for race. BUN/Creatinine Ratio 02/03/2025 15.7 Final Calcium 02/03/2025 9.0 8.5 - 10.5 mg/dL Final AST (SGOT) 02/03/2025 22 10 - 42 unit/L Final ALT (SGPT) 02/03/2025 45 10 - 60 unit/L Final Alkaline Phosphatase 02/03/2025 79 42 - 121 unit/L Final Total Protein 02/03/2025 6.5 6.0 - 8.0 g/dL Final Albumin 02/03/2025 3.5 3.2 - 5.0 g/dL Final Total Bilirubin 02/03/2025 0.2 0.0 - 1.4 mg/dL Final Lipase 02/03/2025 54 13 - 75 unit/L Final Ventricular Rate ECG 02/03/2025 51 BPM Final Atrial Rate 02/03/2025 51 BPM Final P-R Interval 02/03/2025 144 ms Final QRS Duration 02/03/2025 80 ms Final Q-T Interval 02/03/2025 440 ms Final QTc 02/03/2025 405 ms Final P Wave [place] 02/03/2025 48 degrees Final R [place] 02/03/2025 33 degrees Final T [place] 02/03/2025 39 degrees Final ECG Interpretation 02/03/2025 Final Value:Sinus bradycardia Low voltage QRS No previous ECGs available Confirmed by PITER ORTIZ ([id number]) on 02/04/2025 12:25:54 PM Amphetamine Screen, Ur 02/03/2025 Negative Negative Final Certain OTC medications containing ephedrine, phenylephrine, pseudoephedrine and phenylpropanolamine can cause false positive results. Barbiturate Screen, Ur 02/03/2025 Negative Negative Final Benzodiazepine Screen, Ur 02/03/2025 Negative Negative Final Cocaine Screen, Ur 02/03/2025 Negative Negative Final Opiate Screen, Ur 02/03/2025 Negative Negative Final Cannabinoid (THC) Screen, Ur 02/03/2025 Negative Negative Final Specimens from patients taking pantoprazole sodium (Protonix) have been shown to produce false positive results. Oxycodone Screen, Ur 02/03/2025 Negative Negative Final Fentanyl, Ur 02/03/2025 Negative Negative Final Acetaminophen Level 02/03/2025 <2.0 (L) 10.0 - 30.0 mcg/mL Final Salicylate Level 02/03/2025 <1.7 (L) 2.0 - 29.0 mg/dL Final Ethanol Level 02/03/2025 <3 0 - 10 mg/dL Final WBC 02/03/2025 7.8 4.8 - 10.8 K/mcL Final RBC 02/03/2025 3.80 3.80 - 4.80 M/mcL Final Hemoglobin 02/03/2025 11.7 11.5 - 16.0 g/dL Final Hematocrit 02/03/2025 35.2 35.0 - 47.0 % Final MCV 02/03/2025 93.6 79.0 - 98.0 FL Final MCH 02/03/2025 31.1 27.0 - 32.0 pcg Final MCHC 02/03/2025 33.2 32.0 - 37.0 g/dL Final RDW 02/03/2025 13.0 11.0 - 15.0 % Final Platelets 02/03/2025 186 130 - 400 K/mcL Final MPV 02/03/2025 9.6 7.0 - 11.0 FL Final NRBC 02/03/2025 0.0 <1.0 % Final NRBC Absolute 02/03/2025 0.00 <0.10 K/mcL Final Neutrophils Relative 02/03/2025 47.8 % Final Lymphocytes Relative 02/03/2025 35.2 % Final Monocytes Relative 02/03/2025 7.1 % Final Eosinophils Relative 02/03/2025 9.0 % Final Basophils Relative 02/03/2025 0.5 % Final Immature Granulocytes Relative 02/03/2025 0.4 % Final Neutrophils Absolute 02/03/2025 3.70 1.50 - 7.00 K/mcL Final Lymphocytes Absolute 02/03/2025 2.73 1.00 - 5.00 K/mcL Final Monocytes Absolute 02/03/2025 0.55 0.20 - 1.00 K/mcL Final Eosinophils Absolute 02/03/2025 0.70 (H) 0.00 - 0.50 K/mcL Final Basophils Absolute 02/03/2025 0.04 0.00 - 0.20 K/mcL Final Immature Granulocytes Absolute 02/03/2025 0.03 0.00 - 0.03 K/mcL Final Valproic Acid, Total 02/03/2025 <3 (L) 50 - 100 mcg/mL Final Prolactin 02/03/2025 8.00 See Comment ng/mL Final Prolactin Reference Ranges (ng/mL) Non 2.2 - 30.3 8.1 - 347.6 Postmenopausal 0.7 - 31.5 Sodium 02/04/2025 143 133 - 145 mmol/L Final Potassium 02/04/2025 4.4 3.5 - 5.5 mmol/L Final Chloride 02/04/2025 112 (H) 96 - 110 mmol/L Final CO2 02/04/2025 25 21 - 32 mmol/L Final Anion Gap 02/04/2025 6 3 - 11 Final Glucose 02/04/2025 132 (H) 70 - 100 mg/dL Final BUN 02/04/2025 16 5 - 25 mg/dL Final Creatinine 02/04/2025 0.92 0.50 - 1.10 mg/dL Final eGFR 02/04/2025 69 >=60 mL/min/1.73m2 Final Calculation based on the Chronic Kidney Disease Epidemiology Collaboration (CKD- EPI) equation refitwithout adjustment for race. BUN/Creatinine Ratio 02/04/2025 17.4 Final Calcium 02/04/2025 8.9 8.5 - 10.5 mg/dL Final WBC 02/04/2025 6.9 4.8 - 10.8 K/mcL Final RBC 02/04/2025 3.80 3.80 - 4.80 M/mcL Final Hemoglobin 02/04/2025 11.6 11.5 - 16.0 g/dL Final Hematocrit 02/04/2025 35.2 35.0 - 47.0 % Final MCV 02/04/2025 93.6 79.0 - 98.0 FL Final MCH 02/04/2025 30.9 27.0 - 32.0 pcg Final MCHC 02/04/2025 33.0 32.0 - 37.0 g/dL Final RDW 02/04/2025 13.2 11.0 - 15.0 % Final Platelets 02/04/2025 214 130 - 400 K/mcL Final MPV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 V28) History of malignant melanoma of skin Left Upper Back Migraines Noncompliance with medications FERMÍN (obstructive sleep apnea) 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, Mild with Wandering Behavior [2] acetaminophen, 1,000 mg, oral, TID benztropine, 1 mg, oral, BID budesonide, 0.5 mg, nebulization, Daily And formoterol, 20 mcg, nebulization, BID gabapentin, 200 mg, oral, q12h LUCY levETIRAcetam, 1,500 mg, oral, BID levothyroxine, 100 mcg, oral, q AM AC lisinopriL, 5 mg, oral, Daily LORazepam, 0.5 mg, oral, Nightly metFORMIN XR, 500 mg, oral, Daily montelukast, 10 mg, oral, Daily oxyBUTYnin, 5 mg, oral, Nightly pantoprazole, 40 mg, oral, q AM AC sulfamethoxazole-trimethoprim, 1 tablet, oral, q12h [3] Allergies Allergen Reactions Ibuprofen Wheezing Oxcarbazepine Unknown reaction Peanut Wheezing Gets stuck in my throat Quetiapine GI intolerance Vomiting [4] Family History Problem Relation Name Age of Onset Colon cancer Mother * Anamaria Cheng LCSW - 02/10/2025 1:14 PM EDT Images from the original note were not included. Behavioral Health Services - Mental Status Update Important times Time assessment started: 2:30PM Time of disposition: 02/10/2025 1:30PM Location: [facility] Emergency Department Consulted case with: Anamaria Cheng LCSW Insurance information: Insurance: Medicare A & B Verified by: Wendy Murray Via virtual Dema Reason for Consultation / Presenting Problem: Lashanda Sanders is being seen today for a 24 hour re-evaluation due to their state wide bed search being exhausted. Patient arrived stating that people are out to get me and experiencing paranoia. During past assessment, she stated that she was hearing her sisters voice and others in her head telling her to go to other apartments. Patient consistently endorses AVH, and reports that she hears voices laughing at her and calling her a liar. She currently states that these voices are those of her friends Bernardino and Donovan, though she reported during past assessments that she was hearing the voice of her sister as well. When asked about visual hallucinations, she reported that she has been seeing an iron horse. When asked for clarification, she was unable to further clarify and explain the visual hallucination. Patient denies SI, however when asked if she would harm others, she mentions that she would like tohurt several of her supports such as friends and family members because she reports, they keep ganging up on me and saying I got cold feet. She reports no plan. Collaterals, contact information, and engagement level: Therapist: Marielos at [facility], per previous assessment, she states that she has not seen Marielos recently. Psychiatrist: None reported. PCP: None reported. Family: Vmupzs-hm-Eyb, Roberta Sanders: - Lcmxvk-qg-jrt is healthcare proxy. Per previous assessment. she reported that patient has been declining with her mental health recently and expressed concerns regarding patient's medication. Lijmow-dl-ece was able to discuss patient's diagnoses and other history for patient. *Please keep updated on bed search SisterGil: , mobile: - Previous [facility] left voicemail requesting a call back. SisterHaydee: - Previous [facility] left voicemail requesting a call back. BrotherToby: - Previous [facility] left voicemail requesting a call back. Mental Status Speech: Slurred, Slowed, and patient spoke at low volume. Eye Contact: Intermittent and patient did not make eye contact while discussing hearing voices, or when she was actively having Auditory hallucinations. Motor Activity: Patient trembled during assessment but attributed this to the cold room. Mood: Depressed Affect: Flat Sleep: Fair Appetite: Fair Memory: Moderate Impairment, Patient asked several times for the questions to be repeated, as she could notrecall the topic of conversation. Attention / Concentration: Moderate Impairment and Patient was distracted during conversation and had a hard time focusing, seemingly due to auditory hallucinations interrupting. Behavior: Cooperative, Distracted, Calm, and Patient was actively having auditory hallucinations during assessment. She intermittently looked to her side and told the voices to stop laughing at her. Hallucinations: Auditory, Visual, and as stated above, she hears the voices of her friends. When initially asked ifmariah was still having auditory hallucinations, she rolled her eyes and reported, I always hear voices. She states that she currently hears two voices that sound exactly the same, but belong to twodifferent individuals. Lashanda reports having visual hallucinations, and reports seeing an iron horse. When asked to elaborate, she began to mumble and was then unable to clarify the content of the hallucination. Delusions: Paranoid and reports they are out to get me, referring to her loved ones. Thought Content: Preoccupied SI: Denied HI: Presense and patient reported that she would like to hurt all of them up there. When asked to elaborate, she explained she would like to harm her sister, her two brothers, and two of her friends. She reports this is due to the fact that they are ganging up on her. She reports no active plan and states I just say that, I don't actually mean it. Thought Process: Blocked, Loose, and patient began to mumble and speak off topic when asked questions. Orientation Impairment: None Insight: Poor Judgment: Poor Impulse Control: Poor Medications: Scheduled Meds: MEDSSCHEDULED[1] Continuous Infusions: MEDSCONTINUOUS[2] PRN Meds: MEDSPRN[3] See chart. Risk Assessment: Self-Harm: None Suicidal Behavior: None Homicidal Behavior: None Physical Assault: None Physical Aggression: None Property Damage: None Verbal Aggression: None Family history of suicide: None reported. Protective Factors: Family supports, help-seeking Risk Factors: Decompensated, Experiencing Auditory and visual hallucinations, delusions Suicide Risk: Based on patient's history and current presentation, their level of risk for intentional lethal harm is considered Low Safety Plan Completed: no Patient is currently an inpatient bed search. Interventions: Risk assessment Active and empathetic listening Response to interventions: Patient was calm, cooperative, pleasant, and engaged to the best of her ability. DSM-5TR Diagnosis: F31.9 Unspecified Bipolar and Related Disorder Plan: Based on the information above, patient would benefit from an involuntary inpatient psychiatric admission for safety and containment, mood stabilization, diagnostic evaluation, medication evaluation,therapeutic milieu, and coordination with outpatient and community supports. Recommendations were discussed with requesting provider. It was a pleasure to assist Lashanda Sanders here at [facility]. This report is written and finalized by: ALTON Beckwith Film Examiner Supervised by: PIYUSH Madsen [facility] (Tel): [phone] / : [phone] [1] acetaminophen, 1,000 mg, oral, TID benztropine, 1 mg, oral, BID budesonide, 0.5 mg, nebulization, Daily And formoterol, 20 mcg, nebulization, BID gabapentin, 200 mg, oral, q12h LUCY levETIRAcetam, 1,500 mg, oral, BID levothyroxine, 100 mcg, oral, q AM AC lisinopriL, 5 mg, oral, Daily LORazepam, 0.5 mg, oral, Nightly metFORMIN XR, 500 mg, oral, Daily montelukast, 10 mg, oral, Daily oxyBUTYnin, 5 mg, oral, Nightly pantoprazole, 40 mg, oral, q AM AC sulfamethoxazole-trimethoprim, 1 tablet, oral, q12h [2] [3] PRN medications: aluminum-magnesium hydroxide-simethicone, dextrose 50%, dextrose 50%, dextrose, dextrose, glucagon injection, melatonin, ondansetron (ZOFRAN-ODT) disintegrating tablet, traZODone * Ron Tang - 02/09/2025 4:23 PM EDTAssociated Order(s): IP CONSULT TO APARTMENT LOCATOR Images from the original note were not included. Behavioral Health Services - Crisis Assessment Important times Time of arrival: 13:56 Time of referral: 14:14 Time of readiness: 15:19 Time assessment started: 15:45 Time of disposition: 16:45 Location: Emergency Room (ER) Consulted case with: Negrita Pintojoycelyn CLAY MODELER Insurance information: Insurance: Medicare A&B Verified by: Sarwat Dema - Wendy Murray Reason for Consultation / Presenting Problem: Lashanda Sanders is being seen today for a consultive service at the request of Sd Raman MD to assess risk and identify appropriate level of care. Patient arrived stating that people are out to get me and expressing paranoia. During assessment, patient continued to express that others are out to get her and reported to being psychic. She statedthat she hears her sister and other voices in her head that tell her to go to other apartments. Patient reported that voices are laughing at her because she will need to go to inpatient psych again. Tgqbhd-qt-lkq, who is also patient's health care proxy, stated that patient's medications have not been working as well recently, as evidenced by there being more than one voice in her head and the voices getting louder. Mxiorz-py-mal expressed concerns for patient's mental health and despite patient saying she is taking her all her medications, btjtgj-dn-cod is unsure. Patient denied SI/VH. When asked about HI she reported that she would like to hurt her sister, Haydee, because Haydee has been harassing me . Patient stated that she is able to hear her sister in her head, which is how sister has been harassing her. She reported no plan to harm her sister. History of Present Illness: Lashanda is a 64 y.o. female with Chief Complaint Patient presents with Psychiatric Evaluation Social/Educational History: Guardian - if Yes, provide contact information: No [place] Status: No State Agency Involvement: None Kenneth's Order: No Marital Status: Single Alternative Placement Details: [facility] Living Situation for patient: Residential Household Members/Age: Other residents at program Friendships/Family/Social Peer Support/Relationships: Patient sees her iztujk-lv-ylh regularly and goes to a day program. Highest level of education: Unknown Comments (Include Learning Needs): None Occupation: Disabled Employment/Extracurricular Activities/Hobbies: Unknown Limitations of Daily Activities: None Strengths/Supports: Patient has familial support. Patient has 24/7 care and support in her residential program. Patient has outpatient mental health support. Patient has stable housing. Collaterals, contact information, and engagement level: Therapist: Marsha Arceo - Patient reported that she has not seen Marielos for a few weeks and does not know what happened to her. Psychiatrist: None reported - Patient stated that she is waiting on a phone call for a new psychiatrist PCP: Unknown Family: Ljdnfa-pe-WibRoberta: - Dhnxuu-nt-jff is healthcare proxy. She reported that patient has been declining with her mental health recently and expressed concerns regarding patient's medication. Gmdevw-bu-akg was able to discuss patient's diagnoses and other history for patient. *Please keep updated on bed search SisterGil: , mobile: - [facility] left voicemail requesting a call back. SisterHaydee: - [facility] left voicemail requesting a call back. BrotherToby: - [facility] left voicemail requesting a call back. Other: None reported Mental Status Speech: Slowed, Quiet Eye Contact: WNL Motor Activity: Slowed Mood: Anxious, Depressed Affect: Flat Sleep: Fair Appetite: WNL Memory: Mild Impairment Attention / Concentration: Mild Impairment Behavior: Cooperative and Calm Appearance: Hallucinations: Auditory Delusions: Paranoid Thought Content: Preoccupied and Suspicious SI: Denied HI: Patient reported that she wants to hurt her sister. Thought Process: WNL Orientation Impairment: None Insight: Poor Judgment: Poor Impulse Control: Poor Substance Use History (Including family history): Patient reported that she drank alcohol over 30 years ago and denied history of substance use. Ejbruj-jl-owm confirmed no history of substance use. Utox Results: Utox pending. BAL was normal. Substance Use Treatment History: Patient reported that she went to once. She denied other substance use treatment history. Mental Health Treatment History: Outpatient Mental Health Treatment: Patient reported that she has a therapist through [facility] and previously had a psychiatrist when she lived in [place]. Previous or Current Psychological Diagnosis: Stptzs-mq-nor reported that patient has been diagnosedwith bipolar, a mood disorder, depression, and has symptoms of schizophrenia. Prior Psychiatric Hospitalizations/Residential Treatment Facilities: Patient reported that she has a history of psychiatric inpatient hospitalizations. She stated that her most recent hospitalizations was at [facility] about a month ago and she is usually sent to [facility]. Other Comments Regarding Mental Health Treatment History: None Mental Health Concerns in Family: Patient reported that her sister, Haydee, is not diagnosed with anything, but that patient knows what to look for and believes Haydee has mental health concerns. Trauma History: Patient reported extensive trauma, including her sister having a baby who , her mom dying of cancer, and when she was 12 she watched her 17 year-old sister get killed by her boyfriend. Medications: Scheduled Meds: MEDSSCHEDULED[1] Continuous Infusions: MEDSCONTINUOUS[2] PRN Meds: MEDSPRN[3] Risk Assessment: Self-Harm: None Suicidal Behavior: None Homicidal Behavior: None - Patient reported that she wants to hurt her sister but does not have a plan and does not feel she can do it. Physical Assault: None Physical Aggression: None Property Damage: None Verbal Aggression: None Family history of suicide: None reported Protective Factors: Patient has familial support. Patient has / care and support in her residential program. Patient has outpatient mental health support. Patient has stable housing. Risk Factors: Patient's medications are potentially not helping her. Patient is having AH and paranoid delusions. Suicide Risk: Based on patient's history and current presentation, their level of risk for intentional lethal harm is considered Low Safety Plan Completed: no No safety plan completed due to patient being an inpatient bed search. Interventions: Risk/crisis assessment, active listening, empathetic listening, support Response to interventions: Patient was cooperative, engaged, and aligned with speaking with S. DSM-5TR Diagnosis: F31.9 Unspecified Bipolar and Related Disorder Plan: Based on the information above, patient would benefit from an involuntary inpatient psychiatric admission for safety and containment, mood stabilization, diagnostic evaluation, medication evaluation,therapeutic milieu, and coordination with outpatient and community supports. Recommendations were discussed with requesting provider. It was a pleasure to assist Lashanda Sanders here at [facility]. This report is written and finalized by: Ron Tang Behavioral Health Specialist [facility] (Tel): [phone] / : [phone] [1] acetaminophen, 1,000 mg, oral, TID sulfamethoxazole-trimethoprim, 1 tablet, oral, q12h [2] [3] PRN medications: aluminum-magnesium hydroxide-simethicone, melatonin, ondansetron (ZOFRAN-ODT) disintegrating tablet documented in this encounter Plan of Treatment Upcoming Encounters Date Type Department Care Team (Latest Contact Info) Description 02/12/2025 8:30 AM EDT [facility] / [facility] Home Visit [facility]ha ABRAMS [facility] [address] [place] [phone] Carmen Hartmann 02/12/2025 4:30 PM EDT [facility] / [facility] Home Visit [facility] [address] [place] [phone] Ashley Eastman 02/13/2025 8:30 AM EDT [facility] / [facility] Home Visit [facility] [address] [place] [phone] Carmen Hartmann 02/13/2025 9:00 AM EDT [facility] Attendance/Day Center [facility] [address] [place] [phone] 02/13/2025 4:30 PM EDT [facility] Home [facility] / [facility] Home Visit [facility] [address] [place] [phone] Ashley Eastman 02/14/2025 8:00 AM EDT [facility] / [facility] Home Visit [facility] [address] [place] [phone] Carmen Hartmann 02/14/2025 9:30 AM EDT [facility] / [facility] Home Visit [facility] [address] [place] [phone] Ralph Loyola 02/14/2025 4:30 PM EDT [facility] / [facility] [address] [place] [phone] Ashley Eastman 02/15/2025 8:30 AM EDT [facility] / [facility] [address] [place] [phone] Marysol Diaz 02/15/2025 12:00 PM EDT [facility] / [facility] [address] [place] [phone] Natali Sanford 02/15/2025 5:30 PM EDT [facility] / [facility] [address] [place] [phone] Marysol Diaz 02/16/2025 8:30 AM EST [facility] / [facility] [address] [place] [phone] Marysol Diaz 02/16/2025 12:00 PM EST [facility] / [facility] Visit [facility] [address] [place] [phone] Natali Sanford 02/16/2025 4:30 PM EST [facility] / [facility] Visit [facility] [address] [place] [phone] Marysol Diaz 02/16/2025 5:30 PM EST [facility] / [facility] Home Visit [facility] [address] [place] [phone] Marysol Diaz 02/17/2025 8:30 AM EST [facility] / [facility] Home Visit [facility] [address] [place] [phone] Carmen Hartmann 02/17/2025 11:00 AM EST [facility] Visit [facility] [address] [place] [phone] Michelle Castillo MD [address] [place] [phone] 02/17/2025 4:30 PM EST [facility] / [facility] [address] [place] [phone] Ashley Eastman 02/18/2025 8:30 AM EST [facility] / [facility] Visit [facility] [address] [place] [phone] Carmen Hartmann 02/18/2025 11:00 AM EST Office Visit [facility] [address] [place] [phone] Michelle Castillo MD [address] [place] [phone] Brigette East LPN 02/18/2025 4:30 PM EST [facility] / [facility] Home Visit [facility] [address] [place] [phone] Ashley Eastman 02/19/2025 8:30 AM EST [facility] / [facility] Visit [facility] [address] [place] [phone] Carmen Hartmann 02/19/2025 4:30 PM EST [facility] / [facility] Home Visit [facility] [address] [place] [phone] Ashley Eatsman 02/20/2025 8:30 AM EST [facility] / [facility] Home Visit [facility] [address] [place] [phone] Carmen Hartmann 02/20/2025 9:00 AM EST [facility] [address] [place] [phone] 02/20/2025 4:30 PM EST [facility] / [facility] Visit [facility] [address] [place] [phone] Ashley Eastman 02/21/2025 8:00 AM EST [facility] / [facility] [address] [place] [phone] Carmen Hartmann 02/21/2025 9:30 AM EST [facility] / [facility] [address] [place] [phone] Ralph Loyola 02/21/2025 4:30 PM EST [facility] / [facility] [address] [place] [phone] Ashley Eastman 02/22/2025 12:00 PM EST [facility] / [facility] [address] [place] [phone] Dena Chavez 02/23/2025 12:00 PM EST [facility] / [facility] [address] [place] [phone] Dena Chavez 02/24/2025 8:30 AM EST [facility] / [facility] [address] [place] [phone] Carmen Hartmann 02/24/2025 4:30 PM EST [facility] / [facility] [address] [place] [phone] Ashley Eastman 02/25/2025 8:30 AM EST [facility] / [facility] [address] [place] [phone] Carmen Hartmann 02/25/2025 4:30 PM EST [facility] / [facility] [address] [place] [phone] Ashley Eastman 02/26/2025 8:30 AM EST [facility] / [facility] [address] [place] [phone] Carmen Hartmann 02/26/2025 4:30 PM EST [facility] / [facility] [address] [place] [phone] Ashley Eastman 02/27/2025 8:30 AM EST [facility] [facility] [address] [place] [phone] Carmen Hartmann 02/27/2025 9:00 AM EST P[facility] Att[facility] [facility] [place] [facility] [address] [place] [phone] 02/27/2025 4:30 PM EST PACE Home Care / [place] Home Visit [facility] [place] [facility] [address] [place] [phone] Ashley Eastman 02/28/2025 8:00 AM EST PACE Home Care / [facility] [facility] Visit [facility] [place] [facility] [address] [place] [phone] Carmen Hartmann 02/28/2025 9:30 AM EST PACE Home Care / [facility] Home Visit [facility] [place] [facility] [address] [place] [phone] Ralph Loyola 02/28/2025 4:30 PM EST PACE Home Care / P[place] Home Visit [facility] [place] [facility] [address] [place] [address] Ashley Eastman 03/01/2025 8:30 AM EST PACE Home Care / [facility] [facility] Visit [facility] [place] [facility] [address] [place] [phone] Marysol Diaz 03/01/2025 12:00 PM EST PACE Home Care / [facility] Home Visit [facility] [place] [facility] [address] [place] [phone] Natali Sanford 03/01/2025 5:30 PM EST PACE Home Care / [facility] Home Visit [facility] [place] [facility] [address] [place] [phone] Marysol Diaz 03/02/2025 8:30 AM EST PACE Home Care / [facility] Home Visit [facility] [place] [facility] [address] [place] [phone] Marysol Diaz 03/02/2025 12:00 PM EST PACE Home Care / PACE Home Visit [facility] [place] [facility] [address] [place] [phone] Natali Sanford 03/02/2025 4:30 PM EST PACE Home Care / [facility] Home Visit [facility] [place] [facility] [address] [place] [phone] Marysol Diaz 03/02/2025 5:30 PM EST PACE Home Care / [facility] Home Visit [facility] [place] [facility] [address] [place] [phone] Marysol Diaz 03/03/2025 8:30 AM EST PACE Home Care / [facility] Home Visit [facility] [place] [facility] [address] [place] [phone] Carmen Hartmann 03/03/2025 4:30 PM EST PACE Home Care / [facility] Home Visit [facility] [place] [facility] [address] [place] [address] Ashley Eastman 03/04/2025 8:30 AM EST PACE Home Care / P[facility] Visit [facility] [place] [facility] [address] [place] [phone] Carmen Hartmann 03/04/2025 4:30 PM EST PACE Home Care / PACE Home Visit [facility] [place] [facility] [address] [place] [phone] Ashley Eastman 03/05/2025 8:30 AM EST PACE Home Care / PACE Home Visit [facility] [place] [facility] [address] [place] [phone] Carmen Hartmann 03/05/2025 4:30 PM EST PACE Home Care / [facility] Visit [facility] [address] [place] [phone] Ashley Eastman 03/06/2025 8:30 AM EST PACE Home Care / [facility] Visit [facility] [address] [place] [phone] Carmen Hartmann 03/06/2025 9:00 AM EST [facility] Att[facility]ance[facility] [place] [facility] [address] [place] [address] 03/06/2025 4:30 PM EST PACE Home Care / [facility] Visit [facility] [address] [place] [phone] Ashley Eastman 03/07/2025 [facility] [place] Occupational Therapy [address] [place] [phone] Karthikeyan, Clemencia, OT Schizophrenia in partial remission with history of multiple episodes (CMS/HCC V24, CMS/HCC V28) 03/07/2025 8:00 AM EST PACE Home Care / PACE [facility] Visit [facility] [address] [place] [address] Carmen Hartmann 03/07/2025 9:00 AM EST Clinical Support [facility] [place] [facility] [address] [place] [address] Bethany Mccabe RN 03/07/2025 9:30 AM EST PACE Home Care / PACE [facility] Visit [facility] [address] [place] [address] Ralph Loyola 03/07/2025 4:30 PM EST PACE Home Care / PACE Home Visit [facility] [address] [place] [phone] Ashley Eastman 03/08/2025 12:00 PM EST PACE Home Care / PACE Home Visit [facility] [address] [place] [phone] Dena Chavez 03/09/2025 12:00 PM EST PACE Home Care / PACE Home Visit [facility] [address] [place] [phone] Dena Chavez 03/10/2025 8:30 AM EST PACE Home Care / PACE Home Visit [facility] [address] [place] [phone] Carmen Hartmann 03/10/2025 4:30 PM EST PACE Home Care / PACE [facility] Visit [facility] [address] [place] [phone] Ashley Eastman 03/11/2025 8:30 AM EST PACE Home Care / [facility] Visit [facility] [address] [place] [phone] Carmen Hartmann 03/11/2025 4:30 PM EST PACE Home Care / [facility] [address] [place] [address] Ashley Eastman 03/12/2025 8:30 AM EST PACE Home Care / PACE Home Visit [facility] [place] [facility] [address] [place] [address] Carmen Hartmann 03/12/2025 4:30 PM EST PACE Home Care / [facility] Home Visit [facility] [place] [facility] [address] [place] [address] Ashley Eastman 03/13/2025 8:30 AM EST PACE Home Care / PACE Home Visit [facility] [place] [facility] [address] [place] [address] Carmen Hartmann 03/13/2025 9:00 AM EST [facility] Att[facility] [place] [facility] [address] [place] [address] 03/13/2025 4:30 PM EST PACE Home Care / [facility] Home Visit [facility] [place] [facility] [address] [place] [address] Ashley Eastman 03/14/2025 8:00 AM EST PACE Home Care / P[facility] Home Visit [facility] [place] [facility] [address] [place] [address] Carmen Hartmann 03/14/2025 9:30 AM EST PACE Home Care / [facility] Home Visit [facility] [place] [facility] [address] [place] [address] Ralph Loyola 03/14/2025 4:30 PM EST PACE Home Care / [facility] Home Visit [facility] [place] [facility] [address] [place] [address] Ashley Eastman 03/15/2025 8:30 AM EST PACE Home Care / [facility] Home Visit [facility] [place] [facility] [address] [place] [address] Marysol Diaz 03/15/2025 12:00 PM EST PACE Home Care / [facility] Home Visit [facility] [place] [facility] [address] [place] [phone] Natali Sanford 03/15/2025 5:30 PM EST PACE Home Care / [facility] Home Visit [facility] [address] [place] [address] Marysol Diaz 03/16/2025 8:30 AM EST PACE Home Care / [facility] Home Visit [facility] [place] [facility] [address] [place] [phone] Joe Marysol 03/16/2025 12:00 PM EST PACE Home Care / P[facility] Home Visit [facility] [address] [place] [phone] Natali Sanford 03/16/2025 4:30 PM EST PACE Home Care / [facility] Visit [facility] [place] [facility] [address] [place] [phone] Marysol Diaz 03/16/2025 5:30 PM EST PACE Home Care / [facility] Home Visit [facility] [address] [place] [phone] Marysol Diaz 03/17/2025 8:30 AM EST PACE Home Care / [facility] Home Visit [facility] [address] [place] [phone] Carmen Hartmann 03/17/2025 4:30 PM EST PACE Home Care / P[facility] Home Visit [facility] [address] [place] [phone] Ashley Eastman 03/18/2025 8:30 AM EST PACE Home Care / P[facility] Home Visit [facility] [address] [place] [phone] Carmen Hartmann 03/18/2025 11:00 AM EST [facility] [place] [facility] [address] [place] [address] Michelle Castillo MD [address] [address] Brigette East LPN 03/18/2025 4:30 PM EST PACE Home Care / PACE Home Visit [facility] [address] [place] [phone] Ashley Eastman 03/19/2025 8:30 AM EST PACE Home Care / [facility] Visit [facility] [address] [place] [phone] Carmen Hartmann 03/19/2025 4:30 PM EST PACE Home Care / [facility] Visit [facility] [address] [place] [phone] Ashley Eastman 03/20/2025 8:30 AM EST PACE Home Care / P[facility] Visit [facility] [address] [place] [phone] Carmen Hartmann 03/20/2025 9:00 AM EST [facility] [place] [facility] [address] [place] [phone] 03/20/2025 4:30 PM EST PACE Home Care / PACE [facility] Visit [facility] [address] [place] [phone] Ashley Eastman 03/21/2025 8:00 AM EST PACE Home Care / PACE Home Visit [facility] [place] [facility] [address] [place] [phone] Carmen Hartmann 03/21/2025 9:30 AM EST PACE Home Care / [facility] Visit [facility] [address] [place] [phone] Ralph Loyola 03/21/2025 4:30 PM EST PACE Home Care / [facility] Home Visit [facility] [address] [place] [phone] Ashley Eastman 03/22/2025 12:00 PM EST PACE Home Care / P[facility] Home Visit [facility] [address] [place] [phone] Dena Chavez 03/23/2025 12:00 PM EST PACE Home Care / [facility] Home Visit [facility] [place] [facility] [address] [place] [phone] Dena Chavez 03/24/2025 8:30 AM EST PACE Home Care / [facility] Home Visit [facility] [place] [facility] [address] [place] [phone] Carmen Hartmann 03/24/2025 9:45 AM EST Appointment [facility] Xray [address] [place] [address] Lakia Hou, CCC-LAPIDARY APPRENTICE 03/24/2025 4:30 PM EST PACE Home Care / P[facility] Home Visit [facility] [address] [place] [phone] Ashley Eastman 03/25/2025 8:30 AM EST PACE Home Care / PACE Home Visit [facility] [address] [place] [phone] Carmen Hartmann 03/25/2025 4:30 PM EST PACE Home Care / P[facility] Home Visit [facility] [place] [facility] [address] [place] [phone] Ashley Eastman 03/26/2025 8:30 AM EST PACE Home Care / PACE [facility] Visit [facility] [address] [place] [address] Carmen Hartmann 03/26/2025 4:30 PM EST PACE Home Care / PACE Home Visit [facility] [place] [facility] [address] [place] [address] Ashley Eastman 03/27/2025 8:30 AM EST PACE Home Care / P[facility] Visit [facility] [address] [place] [address] Carmen Hartmann 03/27/2025 9:00 AM EST [facility]ACE Att[facility]ance[facility] [place] [facility] [address] [place] [address] 03/27/2025 2:40 PM EST Clinical Support [facility] [place] [address] [place] [address] 03/27/2025 4:30 PM EST PACE Home Care / PACE [facility] [address] [place] [address] Ashley Eastman 03/28/2025 8:00 AM EST PACE Home Care / PACE [facility] Visit [facility] [address] [place] [phone] Carmen Hartmann 03/28/2025 10:00 AM EST Clinical Support [facility] [place] [facility] [address] [place] [address] Bethany Mccabe RN 03/28/2025 4:30 PM EST PACE Home Care / PACE [facility] Visit [facility] [address] [place] [address] Ashley Eastman 03/29/2025 8:30 AM EST PACE Home Care / PACE [facility] Visit [facility] [address] [place] [address] Marysol Diaz 03/29/2025 12:00 PM EST PACE Home Care / [facility] Visit [facility] [address] [place] [address] Natali Sanford 03/29/2025 5:30 PM EST PACE Home Care / P[facility] Home Visit [facility] [address] [place] [address] Marysol Diaz 03/30/2025 8:30 AM EST PACE Home Care / [facility] Visit [facility] [address] [place] [phone] Marysol Diaz 03/30/2025 12:00 PM EST PACE Home Care / P[facility] Home Visit [facility] [address] [place] [phone] Natali Sanford 03/30/2025 4:30 PM EST PACE Home Care / [facility] Visit [facility] [address] [place] [address] Marysol Diaz 03/30/2025 5:30 PM EST PACE Home Care / [facility] Home Visit [facility] [address] [place] [phone] Marysol Diaz 03/31/2025 8:30 AM EST PACE Home Care / [facility] Home Visit [facility] [address] [place] [address] Carmen Hartmann 03/31/2025 4:30 PM EST PACE Home Care / [facility] Visit [facility] [address] [place] [phone] Ashley Eastman 04/01/2025 8:30 AM EST PACE Home Care / [facility] Home Visit [facility] [address] [place] [phone] Carmen Hartmann 04/01/2025 1:15 PM EST PACE External Visit [facility] [place] [address] [place] [address] 04/01/2025 4:30 PM EST PACE Home Care / [facility] Home Visit [facility] [address] [place] [address] Ashley Eastman 04/02/2025 8:30 AM EST PACE Home Care / [facility] Home Visit [facility] [address] [place] [address] Carmen Hartmann 04/02/2025 4:30 PM EST PACE Home Care / [facility] Visit [facility] [address] [place] [address] Ashley Eastman 04/03/2025 8:30 AM EST PACE Home Care / [facility] Home Visit [facility] [address] [place] [address] Carmen Hartmann 04/03/2025 9:00 AM EST [facility] Att[facility]ance[facility] [place] [facility] [address] [place] [address] 04/03/2025 4:30 PM EST PACE Home Care / [facility] [place] [facility] [address] [place] [address] Ashley Eastman 04/04/2025 8:00 AM EST PACE Home Care / [facility] Visit [facility] [address] [place] [address] Carmen Hartmann 04/04/2025 9:30 AM EST PACE Home Care / [facility] Home Visit [facility] [address] [place] [address] Ralph Loyola 04/04/2025 4:30 PM EST PACE Home Care / [facility] Visit [facility] [address] [place] [address] Ashley Eastman 04/05/2025 12:00 PM EST PACE Home Care / [facility] [address] [place] [phone] Dena Chavez 04/06/2025 12:00 PM EST PACE Home Care / [facility] Visit [facility] [address] [place] [address] Dena Chavez 2025 8:30 AM EST PACE Home Care / [facility] Visit [facility] [address] [place] [phone] Carmen Hartmann 2025 4:30 PM EST PACE Home Care / [facility] Visit [facility] [address] [place] [phone] Ashley Eastman 04/08/2025 8:30 AM EST PACE Home Care / [facility] [address] [place] [phone] Carmen Hartmann 04/08/2025 4:30 PM EST PACE Home Care / P[facility] Visit [facility] [address] [place] [phone] Ashley Eastman 04/09/2025 8:30 AM EST PACE Home Care / [facility] Visit [facility] [address] [place] [phone] Carmen Hartmann 04/09/2025 4:30 PM EST PACE Home Care / P[facility] Visit [facility] [address] [place] [phone] Ashley Eastman 04/10/2025 8:30 AM EST PACE Home Care / [facility] [address] [place] [address] Carmen Hartmann 04/10/2025 9:00 AM EST [facility] [place] [facility] [address] [place] [address] 04/10/2025 4:30 PM EST PACE Home Care / [facility] [address] [place] [address] Ashley Eastman 04/11/2025 8:00 AM EST PACE Home Care / PACE [facility] Visit [facility] [address] [place] [phone] Carmen Hartmann 04/11/2025 9:30 AM EST PACE Home Care / PACE [facility] Visit [facility] [address] [place] [phone] Ralph Loyola 04/11/2025 4:30 PM EST PACE Home Care / P[facility] Visit [facility] [address] [place] [phone] Ashley Eastman 04/12/2025 8:30 AM EST PACE Home Care / PACE [facility] Visit [facility] [address] [place] [phone] Marysol Diaz 04/12/2025 12:00 PM EST PACE Home Care / PACE [facility] Visit [facility] [address] [place] [phone] Natali Sanford 04/12/2025 5:30 PM EST PACE Home Care / [facility] [address] [place] [phone] Marysol Diaz 04/15/2025 11:00 AM EST [facility] [place] [facility] [address] [place] [address] Michelle Castillo MD [address] [address] Brigette East LPN 04/17/2025 9:00 AM EST PACE Attendance/[facility] P[facility] Day [address] [address] 04/18/2025 10:00 AM EST [facility] [place] [facility] [address] [place] [phone] Bethany Mccabe, HEIDI 04/24/2025 9:00 AM EST PACE Attendance/[facility] [place] [address] [address] 04/24/2025 11:30 AM EST Clinical Support [facility] [address] [address] 05/01/2025 9:00 AM EST PACE Attendance/Day Center [facility] PACE Day [address] [address] 05/08/2025 9:00 AM EST PACE Attendance/[facility] Day [address] [address] 05/09/2025 10:00 AM EST Clinical Support [facility] [place] [address] [address] Bethany Mccabe, RN 05/13/2025 11:00 AM EST Office Visit [facility] [place] [address] [address] Michelle Castillo MD [address] [address] Brigette East LPN 05/15/2025 9:00 AM EST PACE Attendance/Day [facility] PACE Day [address] [address] 05/22/2025 9:00 AM EST PACE Attendance[facility] [place] [address] [place] [address] 05/29/2025 9:00 AM EST PACE Attendance/Day Center [facility] P[facility] Day Center [address] [place] [address] 05/30/2025 10:00 AM EST Clinical Support [facility] PACE [address] [address] Bethany Mccabe, HEIDI 06/05/2025 9:00 AM EST PACE Attendance/Day [facility] PACE Day [address] [address] 06/10/2025 11:00 AM EST Office Visit [facility] PACE [address] [address] Michelle Castillo MD [address] [place] [address] Brigette East LPN 06/12/2025 9:00 AM EST PACE Attendance/Day Center [facility] PACE Day [address] [address] 06/19/2025 9:00 AM EST PACE Attendance/Day Center [facility] PACE Day [address] [address] 06/20/2025 10:00 AM EST Clinical Support [facility] PACE [address] [address] Bethany Mccabe RN 06/26/2025 9:00 AM EDT PACE Attendance/Day Center [facility] PACE Day [address] [address] 06/27/2025 1:20 PM EDT Office Visit Gastroenterology - [address] [place] [phone] Analisa Perez NP [address] [place] [phone] 07/03/2025 9:00 AM EDT [place] Att[place]ance[place] [facility] [place] [facility] [address] [place] [address] 07/10/2025 9:00 AM EDT PACE Attendance/Day Center [facility] P[facility] Day Center [address] [place] [address] 07/11/2025 10:00 AM EDT Clinical Support [facility] [place] [facility] [address] [place] [phone] Bethany Mccabe, HEIDI 07/17/2025 9:00 AM EDT PACE Attendance/Day Center [facility] PACE Day [address] [address] 07/17/2025 3:30 PM EDT PACE External Visit [facility] [address] [address] 07/24/2025 9:00 AM EDT PACE Attendance/[facility] [place] [address] [address] 07/31/2025 9:00 AM EDT PACE Attendance/[facility] [place] [address] [address] 08/01/2025 10:00 AM EDT Clinical [place] [facility] [place] [facility] [address] [place] [phone] Bethany Mccabe, HEIDI 08/07/2025 9:00 AM EDT [place] [facility] [place] [facility] [facility] [address] [place] [address] 08/14/2025 9:00 AM EDT [place] [facility] [place] [facility] [address] [place] [address] 08/21/2025 9:00 AM EDT [place] [facility] [place] [facility] [facility] [address] [place] [address] 08/22/2025 10:00 AM EDT Clinical [facility] [place] [facility] [address] [place] [address] Bethany Mccabe RN 08/28/2025 9:00 AM EDT [place] Attendance[place] [facility] [place] [facility] [facility] [address] [place] [address] 09/04/2025 9:00 AM EDT PACE Attendance[facility] [facility] [place] [facility] [address] [place] [address] 09/11/2025 9:00 AM EDT PACE Attendance[facility] [facility] [place] [facility] [address] [place] [address] 09/12/2025 10:00 AM EDT Clinical Support [facility] [place] [facility] [address] [place] [address] Bethany Mccabe RN 09/18/2025 9:00 AM EDT PACE Attendance[facility] [facility] [place] [facility] [address] [place] [address] 09/25/2025 9:00 AM EDT [place] Attend[facility] [facility] [place] [facility] [address] [place] [phone] 10/02/2025 9:00 AM EDT [place] Att[facility] [place] [facility] [address] [place] [address] 10/03/2025 10:00 AM EDT Clinical Support [facility] [place] [facility] [address] [place] [phone] Bethany Mccabe RN 10/09/2025 9:00 AM EDT PACE Attendance[facility] [facility] [place] [facility] [address] [place] [phone] 10/24/2025 10:00 AM EDT Clinical Support [facility] [place] [facility] [address] [place] [address] Bethany Mccabe RN 11/14/2025 10:00 AM EDT Clinical Support [facility] [address] [address] Bethany Mccabe RN 12/05/2025 10:00 AM EDT Clinical Support [facility] [address] [address] Bethany Mccabe RN 12/26/2025 10:00 AM EDT Clinical Support [facility] [address] [address] Bethany Mccabe RN 01/16/2026 10:00 AM EDT Clinical Support [facility] [address] [address] Bethany Mccabe RN 02/06/2026 10:00 AM EDT [facility] [address] [address] Bethany Mccabe RN 02/27/2026 10:00 AM EST Clinical Support [facility] [address] [address] Bethany Mccabe RN Scheduled Orders Name Type Priority Associated Diagnoses Order Schedule Gastrointestinal pathogens molecular study Microbiology STAT Once f or 1 Occurrences starting 02/10/2025 until 02/10/2025 documented as of this encounter Procedures Procedure Name Priority Date/Time Associated Diagnosis Comments ECG 12-LEAD STAT 02/11/2025 10:37 AM EDT DRUG ABUSE SCREEN 8A PANEL, URINE STAT 02/09/2025 4:32 PM EDT BUPRENORPHINE SCREEN, URINE STAT 02/09/2025 4:32 PM EDT METHADONE SCREEN, URINE STAT 02/09/2025 4:32 PM EDT PHENCYCLIDINE, URINE STAT 02/09/2025 4:32 PM EDT URINALYSIS WITH REFLEX MICROSCOPIC STAT 02/09/2025 2:54 PM EDT URINALYSIS WITH REFLEX MICROSCOPIC STAT 02/09/2025 2:54 PM EDT CBC WITH AUTO DIFFERENTIAL STAT 02/09/2025 2:53 PM EDT CBC AND DIFFERENTIAL STAT 02/09/2025 2:53 PM EDT ETHANOL STAT 02/09/2025 2:53 PM EDT ACETAMINOPHEN LEVEL STAT 02/09/2025 2 :53 PM EDT SALICYLATE LEVEL STAT 02/09/2025 2:53 PM EDT COMPREHENSIVE METABOLIC PANEL STAT 02/09/2025 2:53 PM EDT documented in this encounter Results * ECG 12 lead (02/11/2025 10:37 AM EDT) Ventricular Rate ECG 62 BPM GEMUSE Atrial Rate 62 BPM GEMUSE P-R Interval 156 ms GEMUSE QRS Duration 84 ms GEMUSE Q-T Interval 424 ms GEMUSE QTc 430 ms GEMUSE P Wave [place] 58 degrees GEMUSE R [place] 42 degrees GEMUSE T [place] 53 degrees GEMUSE ECG Interpretation Normal sinus rhythm Normal ECG When compared with ECG of 03-FEB-2025 17:08, No significant change was found Confirmed by MD EDUARDA, DAPHNE ([id number]) on 02/11/2025 7:11:34 PM GEMUSE 02/11/2025 10:3 7 AM EDT 02/11/2025 7:11 PM EDT us Sd Raman MD ECG ORDERABLES Final Result GEMUSE * Methadone, urine (02/09/2025 4:32 PM EDT) Methadone Screen, Urine Negative Negative LAB CHEMISTRY METHOD 02/09/2025 5:36 PM EDT [facility] Comment: Assay cutoff 300 ng/mL Semi-quantitative assay for screening purposes only. Unconfirmed screening result should not be used for non-medical purposes. *ALTERNATE METHOD CONFIRMATION DONE UPON REQUEST ONLY* Urine Urine specimen obtained by clean catch procedure / Unknown Non-blood Collection / Unknown 02/09/2025 4:32 PM EDT 02/09/2025 5:06 PM EDT Sd Raman MD LAB URINE ORDERABLES Final Resu lt Performing Organization Address [facility]/ZIP Co de Phone Number [facility] [address] [place] [address], [place] [phone] * Phencyclidine, urine (02/09/2025 4:32 PM EDT) [facility] PCP Scrn, Ur Negative Negative LAB CHEMISTRY METHOD 02/09/2025 5:36 PM EDT [facility] Comment: Assay cutoff 25 ng/mL Semi-quantitative assay for screening purposes only. Unconfirmed screening result should not be used for non-medical purposes. *ALTERNATE METHOD CONFIRMATION DONE UPON REQUEST ONLY* Urine Urine specimen obtained by clean catch procedure / Unknown Non-blood Collection / Unknown 02/09/2025 4:32 PM EDT 02/09/2025 5:06 PM EDT Sd Raman MD LAB URINE ORDERABLES Final Resu lt Performing Organization Address City/[facility]/ZIP Co de Phone Number [facility] [address] [place] [address], [place] [phone] * Buprenorphine screen, urine (02/09/2025 4:32 PM EDT) [facility] Buprenorphine Screen Urine Negative Negative LAB CHEMISTRY METHOD 02/09/2025 5:36 PM EDT [facility] Urine Urine specimen obtained by clean catch procedure / Unknown Non-blood Collection / Unknown 02/09/2025 4:32 PM EDT 02/09/2025 5:06 PM EDT Narrative [facility] - 02/09/2025 5:36 PM EDT Assay cutoff 5 ng/mL Semi-quantitative assay for screening purposes only. Unconfirmed screening result should not be used for non-medical purposes. *ALTERNATE METHOD CONFIRMATION DONE UPON REQUEST ONLY* us Sd Raman MD LAB URINE ORDERABLES Final Resu lt [facility] [address] [place] [address], [place] [phone] * Drug abuse screen 8a panel, urine (02/09/2025 4:32 PM EDT) Amphetamine Screen, Ur Negative Negative LAB CHEMISTRY METHOD 02/09/2025 5:36 PM EDT [facility] Comment:Certain OTC medicati ons containing ephedrine, phenylephrine, pseudoephedrine and phenylpropanolamine can cause false positive results. Barbiturate Screen, Ur Negative Negative LAB CHEMISTRY METHOD 02/09/2025 5:36 PM EDT [facility] Benzodiazepine Screen, Ur Negative Negative LAB CHEMISTRY METHOD 02/09/2025 5:36 PM EDT [facility] Cocaine Screen, Ur Negative Negative LAB CHEMISTRY METHOD 02/09/2025 5:36 PM EDT [facility] Opiate Screen, Ur Negative Negative LAB CHEMISTRY METHOD 02/09/2025 5:36 PM EDT [facility] Cannabinoid (THC) Screen, Ur Negative Negative LAB CHEMISTRY METHOD 02/09/2025 5:36 PM EDT [facility] Comment:Specimens from patie nts taking pantoprazole sodium (Protonix) have been shown to produce false positive results. Oxycodone Screen, Ur Negative Negative LAB CHEMISTRY METHOD 02/09/2025 5:36 PM EDT [facility] Fentanyl, Ur Negative Negative LAB CHEMISTRY METHOD 02/09/2025 5:36 PM EDT [facility] Urine Urine specimen obtained by clean catch procedure / Unknown Non-blood Collection / Unknown 02/09/2025 4:32 PM EDT 02/09/2025 5:06 PM EDT Narrative [facility] - 02/09/2025 5:36 PM EDT Assay cutoffs: Amphetamines 1000 ng/mL Barbiturates 200 ng/mL Benzodiazepines 200 ng/mL Cocaine 300 ng/mL Fentanyl 1 ng/mL Opiates 300 ng/mL Oxycodone 100 ng/mL THC 50 ng/mL Semi-quantitative assay for screening purposes only. Unconfirmed screening result should not be used for non-medical purposes. *ALTERNATE METHOD CONFIRMATION DONE UPON REQUEST ONLY* us Sd Raman MD LAB URINE ORDERABLES Final Resu lt [facility] [address] [place] [address], [place] [phone] * (ABNORMAL) Urinalysis with reflex microscopic (02/09/2025 2:54 PM EDT) Specific [place] Urine 1.018 1.003 - 1.030 LAB URINALYSIS - AUTOMATED METHOD 02/09/2025 3:20 PM EDT [facility] pH, Urine 6.0 5.0 - 8.0 pH LAB URINALYSIS - AUTOMATED METHOD 02/09/2025 3:20 PM T [facility] Leukocytes, Urine Large(A) Negative LAB URINALYSIS - AUTOMATED METHOD 02/09/2025 3:20 PM T [facility] Nitrite, Urine Negative Negative LAB URINALYSIS - AUTOMATED METHOD 02/09/2025 3:20 PM T [facility] Protein, Urine Trace <=Trace mg/dL LAB URINALYSIS - AUTOMATED METHOD 02/09/2025 3:20 PM EDT [facility] Glucose, Urine Negative Negative mg/dL LAB URINALYSIS - AUTOMATED METHOD 02/09/2025 3:20 PM EDT [facility] Ketones, Urine Negative Negative mg/dL LAB URINALYSIS - AUTOMATED METHOD 02/09/2025 3:20 PM EDT [facility] Urobilinogen, Urine 0.2 0.2 - 1.0 mg/dL LAB URINALYSIS - AUTOMATED METHOD 02/09/2025 3:20 PM EDT [facility] Bilirubin, Urine Negative Negative LAB URINALYSIS - AUTOMATED METHOD 02/09/2025 3:20 PM EDT [facility] Blood, Urine Negative Negative LAB URINALYSIS - AUTOMATED METHOD 02/09/2025 3:20 PM [facility] RBC, Urine 2.7 0 - 4 /HPF LAB URINALYSIS - AUTOMATED METHOD 02/09/2025 3:20 PM EDT [facility] WBC, Urine 70.3(H) 0 - 4 /HPF LAB URINALYSIS - AUTOMATED METHOD 02/09/2025 3:20 PM EDT [facility] Squamous Epithelial, Urine 31 0 - 60 /LPF LAB URINALYSIS - AUTOMATED METHOD 02/09/2025 3:20 PM T [facility] Bacteria, Urine Negative Negative /HPF LAB URINALYSIS - AUTOMATED METHOD 02/09/2025 3:20 PM [facility] Hyaline Casts, Urine 1.2 0 - 3 /LPF LAB URINALYSIS - AUTOMATED METHOD 02/09/2025 3:20 PM T [facility] Urine Urine specimen obtained by clean catch procedure / Unknown Non-blood Collection / Unknown 02/09/2025 2:54 PM EDT 02/09/2025 3:11 PM EDT us Sd Raman MD LAB URINE ORDERABLES Final Resu lt [facility] [address] [place] [address], * (ABNORMAL) CBC auto differential (02/09/2025 2:53 PM EDT) [facility] WBC 9.2 4.8 - 10.8 K/mcL LAB HEMETOLOGY METHOD 02/09/2025 3:17 PM EDT [facility] RBC 3.90 3.80 - 4.80 M/mcL LAB HEMETOLOGY METHOD 02/09/2025 3:17 PM EDT [facility] Hemoglobin 11.8 11.5 - 16.0 g/dL LAB HEMETOLOGY METHOD 02/09/2025 3:17 PM EDT [facility] Hematocrit 36.5 35.0 - 47.0 % LAB HEMETOLOGY METHOD 02/09/2025 3:17 PM EDT [facility] MCV 94.8 79.0 - 98.0 FL LAB HEMETOLOGY METHOD 02/09/2025 3:17 PM EDT [facility] MCH 30.6 27.0 - 32.0 pcg LAB HEMETOLOGY METHOD 02/09/2025 3:17 PM EDT [facility] MCHC 32.3 32.0 - 37.0 g/dL LAB HEMETOLOGY METHOD 02/09/2025 3:17 PM EDT [facility] RDW 13.0 11.0 - 15.0 % LAB HEMETOLOGY METHOD 02/09/2025 3:17 PM EDT [facility] Platelets 226 130 - 400 K/mcL LAB HEMETOLOGY METHOD 02/09/2025 3:17 PM EDT [facility] MPV 8.9 7.0 - 11.0 FL LAB HEMETOLOGY METHOD 02/09/2025 3:17 PM EDT [facility] NRBC 0.0 <1.0 % LAB HEMETOLOGY METHOD 02/09/2025 3:17 PM EDT [facility] NRBC Absolute 0.00 <0.10 K/mcL LAB HEMETOLOGY METHOD 02/09/2025 3:17 PM EDT [facility] Neutrophils Relative 48.3 % LAB HEMETOLOGY METHOD 02/09/2025 3:17 PM EDT [facility] Lymphocytes Relative 32.9 % LAB HEMETOLOGY METHOD 02/09/2025 3:17 PM EDT [facility] Monocytes Relative 8.1 % LAB HEMETOLOGY METHOD 02/09/2025 3:17 PM EDT [facility] Eosinophils Relative 9.1 % LAB HEMETOLOGY METHOD 02/09/2025 3:17 PM EDT [facility] Basophils Relative 0.8 % LAB HEMETOLOGY METHOD 02/09/2025 3:17 PM [facility] Immature Granulocytes Relative 0.8 % LAB HEMETOLOGY METHOD 02/09/2025 3:17 PM T [facility] Neutrophils Absolute 4.44 1.50 - 7.00 K/mcL LAB HEMETOLOGY METHOD 02/09/2025 3:17 PM EDT [facility] Lymphocytes Absolute 3.02 1.00 - 5.00 K/mcL LAB HEMETOLOGY METHOD 02/09/2025 3:17 PM [facility] Monocytes Absolute 0.74 0.20 - 1.00 K/mcL LAB HEMETOLOGY METHOD 02/09/2025 3:17 PM EDT [facility] Eosinophils Absolute 0.83(H) 0.00 - 0.50 K/mcL LAB HEMETOLOGY METHOD 02/09/2025 3:17 PM EDT [facility] Basophils Absolute 0.07 0.00 - 0.20 K/mcL LAB HEMETOLOGY METHOD 02/09/2025 3:17 PM [facility] Immature Granulocytes Absolute 0.07(H) 0.00 - 0.03 K/mcL LAB HEMETOLOGY METHOD 02/09/2025 3:17 PM EDT [facility] Blood Venous blood specimen / Unknown Venipuncture / Unknown 02/09/2025 2:53 PM EDT 02/09/2025 3:11 PM EDT us Sd Raman MD LAB BLOOD ORDERABLES Final Resu lt Performing Organization Address [facility]/ZIP Co de Phone Number [facility] [address] [place] [address], [place] [phone] * (ABNORMAL) Salicylate level (02/09/2025 2:53 PM EDT) Salicylate Level <1.7(L) 2.0 - 29.0 mg/dL LAB CHEMISTRY METHOD 02/09/2025 3:43 PM EDT [facility] Blood Venous blood specimen / Unknown Venipuncture / Unknown 02/09/2025 2:53 PM EDT 02/09/2025 3:11 PM EDT us Sd Raman MD LAB BLOOD ORDERABLES Final Resu lt Performing Organization Address [facility] de Phone Number [facility] [address] [place] [address], [place] [phone] * (ABNORMAL) Acetaminophen level (02/09/2025 2:53 PM EDT) Acetaminophen Level 6.9(L) 10.0 - 30.0 mcg/mL LAB CHEMISTRY METHOD 02/09/2025 3:44 PM EDT [facility] Blood Venous blood specimen / Unknown Venipuncture / Unknown 02/09/2025 2:53 PM EDT 02/09/2025 3:11 PM EDT us Sd Raman MD LAB BLOOD ORDERABLES Final Resu lt Performing Organization Address City/[facility]/ZIP Co de Phone Number [facility] [address] [place] [address], [place] [phone] * Ethanol (02/09/2025 2:53 PM EDT) Pathologist [facility] Ethanol Level <3 0 - 10 mg/dL LAB CHEMISTRY METHOD 02/09/2025 3:43 PM EDT [facility] Blood Venous blood specimen / Unknown Venipuncture / Unknown 02/09/2025 2:53 PM EDT 02/09/2025 3:11 PM EDT Sd Raman MD LAB BLOOD ORDERABLES Final Resu lt [facility] [address] [place] [address], [place] [phone] * (ABNORMAL) Comprehensive metabolic panel (02/09/2025 2:53 PM EDT) [facility] Sodium 138 133 - 145 mmol/L LAB CHEMISTRY METHOD 02/09/2025 3:43 PM T [facility] Potassium 4.4 3.5 - 5.5 mmol/L LAB CHEMISTRY METHOD 02/09/2025 3:43 PM T [facility] Chloride 107 96 - 110 mmol/L LAB CHEMISTRY METHOD 02/09/2025 3:43 PM T [facility] CO2 27 21 - 32 mmol/L LAB CHEMISTRY METHOD 02/09/2025 3:43 PM EDT [facility] Anion Gap 4 3 - 11 LAB CHEMISTRY METHOD 02/09/2025 3:43 PM [facility] Glucose 111(H) 70 - 100 mg/dL LAB CHEMISTRY METHOD 02/09/2025 3:43 PM T [facility] BUN 18 5 - 25 mg/dL LAB CHEMISTRY METHOD 02/09/2025 3:43 PM EDT [facility] Creatinine 0.94 0.50 - 1.10 mg/dL LAB CHEMISTRY METHOD 02/09/2025 3:43 PM [facility] eGFR 67 >=60 mL/min/1. 73m2 LAB CHEMISTRY METHOD 02/09/2025 3:43 PM [facility] Comment:Calculation based on the Chronic Kidney Disease Epidemiology Collaboration (CKD-EPI) equation refit without adjustment for race. BUN/Creatinine Ratio 19.1 LAB CHEMISTRY METHOD 02/09/2025 3:43 PM [facility] Calcium 8.5 8.5 - 10.5 mg/dL LAB CHEMISTRY METHOD 02/09/2025 3:43 PM [facility] AST (SGOT) 22 10 - 42 unit/L LAB CHEMISTRY METHOD 02/09/2025 3:43 PM [facility] ALT (SGPT) 44 10 - 60 unit/L LAB CHEMISTRY METHOD 02/09/2025 3:43 PM [facility] Alkaline Phosphatase 75 42 - 121 unit/L LAB CHEMISTRY METHOD 02/09/2025 3:43 PM [facility] Total Protein 6.3 6.0 - 8.0 g/dL LAB CHEMISTRY METHOD 02/09/2025 3:43 PM [facility] Albumin 3.5 3.2 - 5.0 g/dL LAB CHEMISTRY METHOD 02/09/2025 3:43 PM [facility] Total Bilirubin 0.2 0.0 - 1.4 mg/dL LAB CHEMISTRY METHOD 02/09/2025 3:43 PM [facility] Blood Venous blood specimen / Unknown Venipuncture / Unknown 02/09/2025 2:53 PM EDT 02/09/2025 3:11 PM EDT us Sd Raman MD LAB BLOOD ORDERABLES Final Resu lt [facility] [address] [place] [address], [place] [phone] documented in this encounter Visit Diagnoses Diagnosis Paranoia (CMS/[facility] V24, CMS/[facility] V28)- Primary Delusional disorder Bipolar affective disorder, remission status unspecified (CMS/HCC V24, CMS/HCC V28) Abnormal urinalysis Other nonspecific finding on examination of urine Schizophrenia in partial remission with history of multiple episodes (CMS/[facility] V24, [facility] V28) documented in this encounter Administered Medications Inactive Administered Medications - up to 3 most recent administrations Medication Order MAR Action Action Date Dose Rate Site acetaminophen (TYLENOL) tablet 1,000 mg 1,000 mg, oral, 3 times daily, First dose on 02/09/25 at 1415 Given 02/11/2025 9:23 AM EDT 1,000 mg Given 02/10/2025 8:46 PM EDT 1,000 mg aluminum-magnesium hydroxide-simethicone (MAALOX) 200-200-20 mg/5 mL suspension 30 mL 30 mL, oral, Every 8 hours PRN, heartburn, indigestion, Starting on 02/09/25 at 1414 benztropine (COGENTIN) tablet 1 mg 1 mg, oral, 2 times daily, First dose on Mon02/10/25 at 0019 Given 02/11/2025 9:32 AM EDT 1 mg Given 02/10/2025 8:46 PM EDT 1 mg Given 02/10/2025 8:44 AM EDT 1 mg budesonide (PULMICORT) 0.5 mg/2 mL nebulizer solution 0.5 mg 0.5 mg, nebulization, Daily, First dose on Mon02/10/25 at 0800, Rinse mouth with water after use to reduce aftertaste and incidence of candidiasis. Do not swallow. Therapeutic substitution for BREO ELLIPTA is budesonide neb daily and formoterol neb twice daily. Given 02/11/2025 7:58 AM EDT 0.5 mg Given 02/10/2025 9:27 AM EDT 0.5 mg clopidogreL (PLAVIX) tablet 75 mg 75 mg, oral, Once, On Mon02/10/25 at 0019, For 1 dose Given 02/10/2025 12:32 AM EDT 75 mg dextrose (D50W) 50% injection 12.5 g 12.5 g, intravenous, Every 15 min PRN, low blood sugar, moderate hypoglycemia *Patient is Unconscious, NPO, unable to swallow: BG 54 - 69 mg/dl*, Starting on Mon02/10/25 at 0026 dextrose (D50W) 50% injection 25 g 25 g, intravenous, Every 15 min PRN, low blood sugar, severe hypoglycemia *Patient is Unconscious, NPO, unable to swallow: BG LESS than 54 mg/dL*, Starting on Mon02/10/25 at 0026 dextrose 15 gram/60 mL oral solution 15 g 15 g, oral, Every 15 min PRN, low blood sugar, hypoglycemia *Patient conscious AND able to drink and swallow safely*, Starting on Mon02/10/25 at 0026 dextrose 15 gram/60 mL oral solution 30 g 30 g, oral, Every 15 min PRN, low blood sugar, hypoglycemia *Patient conscious AND able to drink and swallow safely*, Starting on Mon02/10/25 at 0026 formoterol (PERFOROMIST) 20 mcg/2 mL nebulizer solution 20 mcg 20 mcg, nebulization, 2 times daily, First dose on Mon02/10/25 at 0019, Therapeutic substitution for BREO ELLIPTA is budesonide neb daily and formoterol neb twice daily. Given 02/11/2025 8:07 AM EDT 20 mcg Given 02/10/2025 8:52 PM EDT 20 mcg Given 02/10/2025 9:27 AM EDT 20 mcg gabapentin (NEURONTIN) capsule 200 mg 200 mg, oral, Every 12 hours scheduled, First dose on Mon02/10/25 at 0900 Given 02/11/2025 9:25 AM EDT 200 mg Given 02/10/2025 8:46 PM EDT 200 mg Given 02/10/2025 8:44 AM EDT 200 mg glucagon HCL injection 1 mg 1 mg, intramuscular, Once as needed, low blood sugar, severe hypoglycemia, Starting on Mon02/10/25 at 0026, For 1 dose levETIRAcetam (KEPPRA) tablet 1,500 mg 1,500 mg, oral, 2 times daily, First dose on Mon02/10/25 at 0019 Given 02/11/2025 9:25 AM EDT 1,500 mg Given 02/10/2025 8:46 PM EDT 1,500 mg Given 02/10/2025 8:43 AM EDT 1,500 mg levothyroxine (SYNTHROID, LEVOTHROID) tablet 100 mcg 100 mcg, oral, Every morning before breakfast, First dose on Mon02/10/25 at 0700, ORAL ROUTE: take on an empty stomach and separate from other medications. ENTERAL TUBE ROUTE: If newly initiated enteral nutrition duration is over 5 days, hold enteral nutrition 1 hour before and after drug administration, per ASPEN guidelines. Given 02/11/2025 6:50 AM ED T 100 mcg Given 02/10/2025 6:27 AM EDT 100 mcg lisinopriL (PRINIVIL,ZESTRIL) tablet 5 mg 5 mg, oral, Daily, First dose on Mon02/10/25 at 0900 Given 02/11/2025 9:32 AM EDT 5 mg Given 02/10/2025 8:44 AM EDT 5 mg LORazepam (ATIVAN) tablet 0.5 mg 0.5 mg, oral, Nightly, First dose on Mon02/10/25 at 0019 Given 02/10/2025 8:46 PM EDT 0.5 mg Given 02/10/2025 12:32 AM EDT 0.5 mg lurasidone (LATUDA) tablet 40 mg 40 mg, oral, Daily after dinner, First dose on Mon02/10/25 at 1730, Lurasidone hydrochloride tablets should be taken with food (at least 350 calories). Given 02/10/2025 6:34 PM EDT 40 mg melatonin tablet 6 mg 6 mg, oral, Nightly PRN, sleep, Starting on 02/09/25 at 1414 Given 02/11/2025 3:59 AM EDT 6 mg metFORMIN XR (GLUCOPHAGE-XR) 24 hr tablet 500 mg 500 mg, oral, Daily, First dose on Mon02/10/25 at 0900, Do not crush, chew, or split. Given 02/11/2025 9:38 AM EDT 500 mg Given 02/10/2025 8:44 AM EDT 500 mg montelukast (SINGULAIR) tablet 10 mg 10 mg, oral, Daily, First dose on Mon02/10/25 at 0900 Given 02/11/2025 9:26 AM EDT 10 mg Given 02/10/2025 8:44 AM EDT 10 mg ondansetron ODT (ZOFRAN-ODT) disintegrating tablet 4 mg 4 mg, oral, Every 8 hours PRN, nausea, vomiting, Starting on 02/09/25 at 1414 oxyBUTYnin (DITROPAN) tablet 5 mg 5 mg, oral, Nightly, First dose on Mon02/10/25 at 0019 Given 02/10/2025 8:46 PM EDT 5 mg Given 02/10/2025 12:32 AM EDT 5 mg pantoprazole (PROTONIX) EC tablet 40 mg 40 mg, oral, Every morning before breakfast, First dose on Mon02/10/25 at 0700, Do not crush, chew, or split. Given 02/11/2025 6:50 AM EDT 40 mg Given 02/10/2025 6:27 AM EDT 40 mg sulfamethoxazole-trimethoprim (BACTRIM DS,SEPTRA DS) 800-160 mg per tablet 1 tablet 1 tablet, oral, Every 12 hours, First dose on 02/09/25 at 1524, For 10 days, Indication: Urinary Tract/Genitourinary Given 02/11/2025 2:35 AM EDT 1 ta blet Given 02/10/2025 4:01 PM EDT 1 tablet Given 02/10/2025 3:45 AM EDT 1 tablet traZODone (DESYREL) tablet 100 mg 100 mg, oral, Nightly PRN, sleep, Starting on Mon02/10/25 at 0018 Given 02/11/2025 2:22 AM EDT 100 mg documented in this encounter Active and Recently Administered Medications Times are shown in EDT. Scheduled Medication Order 02/09/2025 02/10/2025 02/11/2025 acetaminophen (TYLENOL) tablet 1,000 mg 1,000 mg, oral, 3 times daily, First dose on 02/09/25 at 1415 1449 (Hold - Provider: Estefania Felton RN - Reason: Patient/Resident/Age nt refused - education provided - Comment: patient stated she took at noon at home)210 (Not Given - Provider: Jody Mendoza RN - Reason: Patient/Resident/Age nt refused - education provided ) 0844 (Not Given - Provider: Naomy Masterson RN - Reason: Patient/Resident/Age nt refused - education provided )1353 (Not Given - Provider: Naomy Masterson RN - Reason: Patient/Resident/Age nt refused - education provided )2045 (Given - Provider: Ben Garcia RN) 0923 (Given - Provider: Phuong Ruby, RN)1342 (Not Given - Provider: Phuong Ruby RN - Reason: Patient/Resident/Agent refused - education provided ) benztropine (COGENTIN) tablet 1 mg 1 mg, oral, 2 times daily, First dose on Mon02/10/25 at 0019 0032 (Given - Provider: Nubia Camacho RN)0844 (Given - Provider: Naomy Masterson RN)2045 (Given - Provider: Ben Garcia RN) 0932 (Given - Provider: Phuong Ruby, RN) budesonide (PULMICORT) 0.5 mg/2 mL nebulizer solution 0.5 mg(Linked Group 1) 0.5 mg, nebulization, Daily, First dose on Mon02/10/25 at 0800, Rinse mouth with water after use to reduce aftertaste and incidence of candidiasis. Do not swallow. Therapeutic substitution for BREO ELLIPTA 100/25 is budesonide neb daily and formoterol neb twice daily. 926 (Given - Provider: Naomy Masterson RN) 0758 (Given - Provider: Phuong Ruby, HEIDI) clopidogreL (PLAVIX) tablet 75 mg (COMPLETED) 75 mg, oral, Once, On Mon02/10/25 at 0019, For 1 dose 0032 (Given - Provider: Nubia Camacho RN) formoterol (PERFOROMIST) 20 mcg/2 mL nebulizer solution 20 mcg(Linked Group 1) 20 mcg, nebulization, 2 times daily, First dose on Mon02/10/25 at 0019, Therapeutic substitution for BREO ELLIPTA 100/25 is budesonide neb daily and formoterol neb twice daily. 0036 (Not Given - Provider: Nubia Camacho RN - Reason: Patient/Resident/Age nt refused - education provided - Comment: pt stated i dont need it )09 (Given - Provider: Naomy Masterson RN)2051 (Given - Provider: Ben Garcia RN) 0807 (Given - Provider: Phuong Ruby, HEIDI) gabapentin (NEURONTIN) capsule 200 mg 200 mg, oral, Every 12 hours scheduled, First dose on Mon02/10/25 at 0900 0844 (Given - Provider: Naomy Masterson RN)2045 (Given - Provider: Ben Garcia RN) 09 (Given - Provider: Phuong Ruby, HEIDI) levETIRAcetam (KEPPRA) tablet 1,500 mg 1,500 mg, oral, 2 times daily, First dose on Mon02/10/25 at 0019 0032 (Given - Provider: Nubia Camacho RN)0843 (Given - Provider: Naomy Masterson RN)2045 (Given - Provider: Ben Garcia RN) 924 (Given - Provider: Phuong Ruby RN) levothyroxine (SYNTHROID, LEVOTHROID) tablet 100 mcg 100 mcg, oral, Every morning before breakfast, First dose on Mon02/10/25 at 0700, ORAL ROUTE: take on an empty stomach and separate from other medications. ENTERAL TUBE ROUTE: If newly initiated enteral nutrition duration is over 5 days, hold enteral nutrition 1 hour before and after drug administration, per ASPEN guidelines. 0627 (Given - Provider: Nubia Camacho RN) 0650 (Given - Provider: Ben Garcia RN) lisinopriL (PRINIVIL,ZESTRIL) tablet 5 mg 5 mg, oral, Daily, First dose on Mon02/10/25 at 0900 0844 (Given - Provider: Naomy Masterson RN) 0932 (Given - Provider: Phuong Ruby RN) LORazepam (ATIVAN) tablet 0.5 mg 0.5 mg, oral, Nightly, First dose on Mon02/10/25 at 0019 0032 (Given - Provider: Nubia Camacho RN)2045 (Given - Provider: Ben Garcia RN) lurasidone (LATUDA) tablet 40 mg 40 mg, oral, Daily after dinner, First dose on Mon02/10/25 at 1730, Lurasidone hydrochloride tablets should be taken with food (at least 350 calories). 183 (Given - Provider: Bruce Montelongo RN) metFORMIN XR (GLUCOPHAGE-XR) 24 hr tablet 500 mg 500 mg, oral, Daily, First dose on Mon02/10/25 at 0900, Do not crush, chew, or split. 0844 (Given - Provider: Naomy Masterson RN) 0938 (Given - Provider: Phuong Ruby, HEIDI) montelukast (SINGULAIR) tablet 10 mg 10 mg, oral, Daily, First dose on Mon02/10/25 at 0900 0844 (Given - Provider: Naomy Masterson RN) 0926 (Given - Provider: Phuong Ruby, HEIDI) oxyBUTYnin (DITROPAN) tablet 5 mg 5 mg, oral, Nightly, First dose on Mon02/10/25 at 0019 0032 (Given - Provider: Nubia Camacho RN)2046 (Given - Provider: Ben Garcia RN) pantoprazole (PROTONIX) EC tablet 40 mg 40 mg, oral, Every morning before breakfast, First dose on Mon02/10/25 at 0700, Do not crush, chew, or split. 0627 (Given - Provider: Nubia Camacho RN) 0650 (Given - Provider: Ben Garcia RN) sulfamethoxazole-trimet hoprim (BACTRIM DS,SEPTRA DS) 800-160 mg per tablet 1 tablet 1 tablet, oral, Every 12 hours, First dose on Mon02/09/25 at 1524, For 10 days, Indication: Urinary Tract/Genitourinary 1534 (Given - Provider: Haim Roberson RN) 0345 (Given - Provider: Nubia Camacho RN)1601 (Given - Provider: Naomy Masterson RN) 0235 (Given - Provider: Ben Garcia RN)1524 (Canceled Entry - Provider: Automatic Discharge Provider - Comment: Automatically canceled at discontinue of medication order) PRN Medication Order 02/09/2025 02/10/2025 02/11/2025 aluminum-magnesium hydroxide-simethicone (MAALOX) 200-200-20 mg/5 mL suspension 30 mL 30 mL, oral, Every 8 hours PRN, heartburn, indigestion, Starting on 02/09/25 at 1414 dextrose (D50W) 50% injection 12.5 g 12.5 g, intravenous, Every 15 min PRN, low blood sugar, moderate hypoglycemia *Patient is Unconscious, NPO, unable to swallow: BG 54 - 69 mg/dl*, Starting on Mon02/10/25 at 0026 dextrose (D50W) 50% injection 25 g 25 g, intravenous, Every 15 min PRN, low blood sugar, severe hypoglycemia *Patient is Unconscious, NPO, unable to swallow: BG LESS than 54 mg/dL*, Starting on Mon02/10/25 at 0026 dextrose 15 gram/60 mL oral solution 15 g 15 g, oral, Every 15 min PRN, low blood sugar, hypoglycemia *Patient conscious AND able to drink and swallow safely*, Starting on Mon02/10/25 at 0026 dextrose 15 gram/60 mL oral solution 30 g 30 g, oral, Every 15 min PRN, low blood sugar, hypoglycemia *Patient conscious AND able to drink and swallow safely*, Starting on Mon02/10/25 at 0026 glucagon HCL injection 1 mg 1 mg, intramuscular, Once as needed, low blood sugar, severe hypoglycemia, Starting on Mon02/10/25 at 0026, For 1 dose melatonin tablet 6 mg 6 mg, oral, Nightly PRN, sleep, Starting on 02/09/25 at 1414 0359 (Given - Provid er: Ben Garcia RN) ondansetron ODT (ZOFRAN-ODT) disintegrating tablet 4 mg 4 mg, oral, Every 8 hours PRN, nausea, vomiting, Starting on 02/09/25 at 1414 traZODone (DESYREL) tablet 100 mg 100 mg, oral, Nightly PRN, sleep, Starting on Mon02/10/25 at 0018 0222 (Given - Provid er: Ben Garcia RN) Linked Groups Order Group 1: budesonide (PULMICORT) 0.5 mg/2 mL nebulizer solution 0.5 mgJump to med 0.5 mg, nebulization, Daily, First dose on Mon02/10/25 at 0800, Rinse mouth with water after use to reduce aftertaste and incidence of candidiasis. Do not swallow. Therapeutic substitution for BREO ELLIPTA /25 is budesonide neb daily and formoterol neb twice daily. And formoterol (PERFOROMIST) 20 mcg/2 mL nebulizer solution 20 mcgJump to med 20 mcg, nebulization, 2 times daily, First dose on 02/10/25 at 0019, Therapeutic substitution for BREO ELLIPTA / is budesonide neb daily and formoterol neb twice daily. documented in this encounter Orders Medications Ordered That Vaibhav ht Not Have Been Administered Count Last Ordered Date First Ordered Date dextrose (D50W) 50% injection 12.5 g 1 01/16 dextrose (D50W) 50% injection 25 g 1 2024 dextrose 15 gram/60 mL oral solution 15 g 1 02/10/2025 dextrose 15 gram/60 mL oral solution 30 g 1 02/10/2025 glucagon HCL injection 1 mg 1 02/10/2025 aluminum-magnesium hydroxide -simethicone (MAALOX) 200-200-20 mg/5 mL suspension 30 mL 1 02/09/2025 ondansetron ODT (ZOFRAN-ODT) disintegrating tablet 4 mg 1 02/09/2025 Consult Count Last Ordered Date First Orde red Date IP CONSULT TO APARTMENT LOCATOR 1 02/09/2025 IP CONSULT TO PSYCHIATRY 1 02/09/2025 documented in this encounter Additional Health Concerns Infection Onset Date Last Indicated Resolved Time Gastrointestinal Rule-Out 02/10/2025 02/10/2025 documented as of this encounter Care Teams Employment Specialist Relationship Specialty Start Date End Date Regulo Ivy NP [address] [place] [address] PCP - General PACE 06/07/24 documented as of this encounter
--- NOTE | ~2025-02-11 | XR_ITS ---
EXAMINATION: XR ABDOMEN 1 VIEW (KUB) HISTORY: constipation COMPARISON: There are no prior studies available for comparison. FINDINGS: Two supine views of the abdomen are submitted. The bowel gas pattern is unremarkable, without evidence of mechanical obstruction. There is a large amount of stool throughout the colon. There are phleboliths in the left hemipelvis. There are no abnormal soft tissue masses. The bones are intact. XR/XR KUB IMPRESSION: Large amount stool throughout the colon. Electronically signed by: Ronan Swanson MD 02/21/2025 11:11 AM NICHOLE HERNANDEZ
[2025-02-11 15:46] VITALS: BP 127/64; PULSE 62; RESP 16; TEMP 36.3; O2SAT 98
[2025-02-11 16:24] LABS: Glucose, Whole Blood 117 mg/dL (60-115)
[2025-02-11] MEDS: Flu Vacc TS2025-26(6mo up)/PF 0.5 ML SYRINGE IM (16:49)
--- NOTE | 2025-02-11 16:56 | HO.PSYCHPN ---
Subjective Subjective Reason For Visit: F31.9 Diagnostics Vital Signs (24Hr): Vital Signs - 24 hr 02/11/25 15:46 Temperature 97.3 F Pulse Rate 62 Respiratory Rate 16 Blood Pressure 127/64 Pulse Oximetry 98 Oxygen Delivery Method Room Air Labs Labs: Laboratory Results - last 48 hr 02/11/25 16:15 POC Glucose 117 H Medications Medications Current Medications Acetaminophen (Acetaminophen 325 Mg Tablet) 650 mg PO Q6H PRN PRN Reason: Headache/Pain, Scale 1-10 Al Hydroxide/Mg Hydroxide (Magnesium Hydrox/Alum Hydrox 30 Ml Oral.Susp) 30 ml PO Q6H PRN PRN Reason: Heartburn/Nausea Dextrose (Dextrose 50 % 25 Gm/50 Ml Syringe) 25 gm IVPUSH Q15M PRN; Protocol PRN Reason: per Hypoglycemia Standing Ord. Glucose (Glucose Gel 15 Gm Gel..Gram.) 15 gm PO Q15M PRN; Protocol PRN Reason: per Hypoglycemia Standing Ord. Hydroxyzine HCl (Hydroxyzine Hcl 25 Mg Tablet) 25 mg PO Q6H PRN PRN Reason: mild anxiety Insulin Human Lispro (Insulin Lispro 100 Unit/Ml 3 Ml Vial) 0 unit SUBCUT [facility]; Protocol Magnesium Hydroxide (Milk Of Magnesia 30 Ml Oral.Susp) 30 ml PO DAILY PRN PRN Reason: Constipation Nicotine (Nicotine 21 Mg Patch.Td24) 21 mg TRANSDERMA DAILY PRN PRN Reason: nicotine craving Nicotine Polacrilex (Nicotine Polacrilex 2 Mg Gum) 2 mg BUCCAL Q2H PRN PRN Reason: Nicotine Cravings Trazodone HCl (Trazodone Hcl 50 Mg Tablet) 50 mg PO BEDTIME MRX1 PRN PRN Reason: Insomnia Allergies Allergies Allergy/AdvReac Type Severity Reaction Status Date / Time ibuprofen Allergy Wheezing Verified 12/05/24 13:10 oxcarbazepine (From Allergy Unknown Verified 03/22/24 20:38 Trileptal) peanut Allergy Unknown Verified 03/22/24 20:38 quetiapine (From Seroquel) Allergy Vomiting Verified 03/22/24 20:38 Assessment & Plan Time Spent With Patient Time: Total time managing care of this patient today ____ minutes.
--- NOTE | 2025-02-11 17:10 | PC.ADMIT ---
Addendum entered by Edelmira Triana RN 02/11/25 18:10: Message left for sister in law, Roberta Sanders to call unit for update. Original Note: Pt. arrived on unit at 15:27 via stretcher accompanied by 2 case management rn. Skin check and contraband search conducted with 2 staff, with only significant findings diffuse moles and scarred area over L shoulder from past melanoma excision. Pt. ambulates independently with a walker. Pt. is alert and oriented, but delusional about situation. She resides at the [facility] with extensive services. She was discharged from this unit last month and has had med changes made since. She denies anyone is harming her, but became convinced that someone was being harmed in her complex and was calling the police. She reports that she always hears voices. She hears her sister in law and a man named Bernardino who impersonates her ex-, Bladimir Beavers. The voices tell her that her heart murmur is getting worse. When reality tested that the voices are not real, she replies, Well then I must be a psychic. I hear her here. Either that or someone here is impersonating her. Denies anxiety, depression, SI, HI,and VH. Signed CV and accepted influenza vaccine.
[2025-02-11 18:07] VITALS: BMI 45.4
--- OUTSIDE RECORDS SUMMARY | 2025-02-11 19:40 | XMS_ITS | Data Portability ---
Author Organization [place] [facility] Address [address] [place] [id number] Care Team Providers Care Toolsmith Name Role Phone KYRA MENG Primary Care Provider Assessment Encounter Date Assessment Date Assessment LastModified [...] exercises [facility]. We cannot always find the [...] in your condition between 8am-10pm, please call [facility] at [phone] to help navigate your care. In order to obtain further information and compare any laboratory results/values, I have accessed patient records on the [employer]. This information was pertinent in my medical [...] and all questions were answered prior to team departure. Proper Personal Protective Equipment (PPE), including gloves, eye protection and masks were donned and doffed appropriately and all equipment cleaned using approved technique with germicidal disposable wipes prior to and after care of this patient according to [facility]'s infection prevention protocols. lnovia Not available 10/31/2021 12:47:02 Plan of Treatment Reminders Order Date Submit Date Provider Last Modified By Organization Details Last Modified Time Details Appointments None record ed. Lab None record ed. Referral None record ed. Procedures None record ed. Surgeries None record ed. Imaging XR, ankle, 3 or more view 021 11/10/19 21 [facility] ([facility] [employer]), [address] [place] [address], [address], 09:36:15 Medication Orders None record ed. Patient TargetsNo targets recorded. Patient InstructionsNo instructions recorded. Reason for Referral None Reported. Results Created Date Observation Date Name Description Value Unit Range Abnormal Flag Note LastModifiedBy Organization Detail LastModifiedTime 11/12/19 21 XR, ankle , 3 or more view No observ ation record ed. [email or web address] [facility] [employer]) [address] [place], [address], 11/11/2020 18:02:55 Result Notes None recorded. Problems Name Problem SNOMED Code Status Onset Date Resolution Date Notes Provider Name and Address Organization Details Recorded Time Diabetes mellitus 37164811 Active 021 TOYA CHURCH [address] [place], [address], [facility] 18:07:45 Problem Notes None recorded. Medical Equipment None Reported. Allergies Allergen ID Allergen Name Allergen Category Reaction Reaction Severity Criticality Documentation Date Start Date Code Code System Note Provider Name and Address Organization Details Recorded Time 21280722 Trileptal medicatio n Not available Not available Not available 11/09/2020 25059 0 RxNorm TOYA CHURCH [address] [place], [address], [place] [facility] 18:07:25 Medications Name Sig Start Date Stop [...] Available No t Available Vitals Date Recorded Heart rate Oxygen saturation Oxygen saturation in Arterial blood by Pulse oximetry Respiratory rate Body temperature Systolic And Diastolic Provider Name and Address Organization Details Last Updated DateTime 2 81 /min 95 % 95 % 18 /min 98.6 [degF] 140/70 mm[Hg] Not Available [facility] 2 16:03:57 Date Recorded Oxygen saturation Oxygen saturation in Arterial blood by Pulse oximetry Body temperature Respiratory rate Heart rate Systolic And Diastolic Provider Name and Address Organization Details Last Updated DateTime 1 95 % 95 % 98.7 [degF] 20 /min 77 /min 110/76 mm[Hg] Not Available [facility] 1 18:14:25 Social History Question Answer Notes LastModified by Organizat ion Details LastModified Time Tobacco Smoking Status Never Smoker TOYA CHURCH [address], [place], [address], [place] [facility] 11/09/2020 18:14:10 Excessive Alcohol Or Drug Use Elyse nguyen Information not available 11/09/2020 Does This Patient Have A PCP? Yes Information not available 11/09/2020 Sex: Unknown Functional Status Question Answer Note LastModified by Organizat ion Details LastModified Time Do you use any illicit or recreational drugs? No Information not available 11/09/2020 What is your level of alcohol consumption? None Information not available 11/09/2020 Mental Status None recorded. Family History Relationship Description Onset Age of this Age Resolved Age Notes LastModified by Organization Details LastModified Time Mother Diabetes mellitus [email or web address] Not available 2020 18:14:26 Mother Hypertensive disorder [email or web address] Not available 2020 18:14:32 Mother Malignant neoplastic disease colon CA patrick Not available 11/09/2020 18:14:45 Medical History Condition Response Coronary Artery Disease N COPD N Depression Y Hypothyroidism Y Cancer Y Stroke N High Cholesterol N Kidney Disease N Diabetes Y Asthma Y Pulmonary Embolism N Hypertension Y Gynecological HistoryNo gynecological history recorded. Obstetrics History GPAL:G 0 P 0 0 0 0 Past Encounters Encounter ID Performer Location Encounter Start Date Encounter Closed Date Diagnosis/Indication Diagnosis SNOMED-CT Code Diagnosis ICD10 Code Diagnosis IMO Codes Diagnosis Note [id number] TO[facility]CH [facility] [address] [place] [address] 11/09/2020 18:06:27 11/14/2020 11:24:14 Osteoarthritis of ankle and/or foot 23060698 M19.079 Pain of ri ght ankle joint 1408991955 2251867 M25.571 [id number] Anat White NP [facility] [address] [place] [address] 10/30/2021 15:53:33 11/01/2021 12:01:11 Candidal intertrigo 630457914 B37.2 Cyst of skin 545749680 L 72.9 Health Concerns Section Related Observation LastModified by Organization Detai ls LastModified Time None Recorded Concern Status LastModified by Organization Details LastModified Time None Recorded Advance Directives Directive None Recorded Payers Insurance Date Sequence Insurance Name Policy Number Policy Palomo Covered Member ID Palomo Member ID Guarantor Name 11/01/2021 2 [place] [employer] Lashanda Sanders [id number] Lashanda Marilyn 11/09/2020 1 [facility] - DOS PRIOR TO 2022 - DUAL ELIGIBLE (MEDICARE REPLACEMENT/ADV ANTAGE - HMO) Lashanda Gtzucher [id number] Lashanda Marilyn 11/09/2020 1 *SELF PAY* Lashanda Gtzucher [id number] Lashanda Marilyn 11/14/2020 1 [facility] - DOS PRIOR TO 2022 - DUAL ELIGIBLE (MEDICARE REPLACEMENT/ADV ANTAGE - HMO) Lashanda Marilyn [id number] Lashanda Marilyn 11/09/2020 1 [place] [employer] Lashanda Marilyn [id number] Lashanda Marilyn 10/29/2021 1 [facility] - DOS PRIOR TO 2022 - DUAL ELIGIBLE (MEDICARE REPLACEMENT/ADV ANTAGE - HMO) Lashanda Gtzucher [id number] Lashanda Sanders Notes Date Note Type Note Provider Name and Address Organization Details Recorded Time 11/09/2020 text/html 60 y/o F with PMHx sig for [...] Patient ambulating with cane without difficulty. TOYA CHURCH, [place], [address], [place] [facility] 11/09/2020 18:51:42 10/30/2021 text/html 61 yo f with a PMH of asthma, skin CA, depression, DM, HTN, hypothyroidism, anxiety, SZ disorder, schizoaffective, overactive bladder presents for a cyst she noted to her left inner thigh and [facility] nurse thought she should have it looked at. There is no pain, redness or drainage. But she has noted an odor and oozing to her groin. Anat White NP [address], [place], [address], [place] [facility] 10/31/2021 12:48:05 OBGyn Episode No OBEpisode recorded.
--- OUTSIDE RECORDS SUMMARY | 2025-02-11 19:40 | XMS_ITS | Encounter Summary ---
Author Organization [facility] Address [address] [place] [address] Care Team Providers Care Sugar Controller Name Role Phone Regulo Ivy NP Primary Care Provider [phone] Reason for Visit * Reason Onset Date Comments Other 12/15/2024 Par called david reddy she would like to speak with someone from therapy next date center is open. Informed par center will be open on 12/17/24. Encounter Details Date Type Department Care Team (Late st Contact Info) Description 12/15/2024 PACE On-Call [facility] [address] [place] [phone] Juliet Scott NP 200 [facility] [address] [place], [place] [id number] Social History Tobacco Use Types Packs/Day Years Used Date Smoking Tobacco: Never Alcohol Use Standard Drinks/Week Comments Never 0 (1 standard drink = 0.6 oz pur e alcohol) Interpersonal Safety Answer Date Record ed Physical Abuse Unrecognized value 05/22/2024 Verbal Abuse Unrecognized value 05/22/2024 Comments No Sex and Gender Information Value Date Recorded Sex Assigned at Female 05/22/2024 10:13 AM EST Legal Sex Female 11:45 AM EST Gender Identity Female 05/22/2024 10:13 AM EST Sexual Orientation Choose not to disclose 2024 10:13 AM EST documented as of this encounter Plan of Treatment Upcoming Encounters Date Type Department Care Team (Latest Contact Info) Description 02/12/2025 8:30 AM EDT PACE Home Care / [facility] [address] [place] [phone] Carmen Hartmann 02/12/2025 4:30 PM EDT PACE Home Care / [facility] Home Visit [facility] [address] [place] [phone] Ashley Eastman 02/13/2025 8:30 AM EDT PACE Home Care / P[facility] Home Visit [facility] [address] [place] [phone] Carmen Hartmann 02/13/2025 9:00 AM EDT PACE Attendance/[facility] [place] [facility] [address] [place] [phone] 02/13/2025 4:30 PM EDT PACE Home Care / [facility] Home Visit [facility] [address] [place] [phone] Ashley Eastman 02/14/2025 8:00 AM EDT PACE Home Care / P[facility] Home Visit [facility] [address] [place] [phone] Carmen Hartmann 02/14/2025 9:30 AM EDT PACE Home Care / [facility] Home Visit [facility] [address] [place] [phone] Ralph Loyola 02/14/2025 4:30 PM EDT PACE Home Care / [facility] Visit [facility] [address] [place] [address] Ashley Eastman 02/15/2025 8:30 AM EDT PACE Home Care / P[facility] Home Visit [facility] [address] [place] [address] Marysol Diaz 02/15/2025 12:00 PM EDT PACE Home Care / P[facility] Home Visit [facility] [address] [place] [address] Natali Sanford 02/15/2025 5:30 PM EDT PACE Home Care / P[facility] Home Visit [facility] [address] [place] [phone] Marysol Diaz 02/16/2025 8:30 AM EST PACE Home Care / P[facility] Home Visit [facility] [address] [place] [phone] Marysol Diaz 02/16/2025 12:00 PM EST PACE Home Care / [facility] Home Visit [facility] [address] [place] [phone] Natali Sanford 02/16/2025 4:30 PM EST PACE Home Care / [facility] Home Visit [facility] [address] [place] [phone] Marysol Diaz 02/16/2025 5:30 PM EST PACE Home Care / [facility] Home Visit [facility] [address] [place] [phone] Marysol Diaz 02/17/2025 8:30 AM EST PACE Home Care / P[facility] Home Visit [facility] [address] [place] [phone] Carmen Hartmann 02/17/2025 11:00 AM EST [facility] [place] [facility] [address] [place] [phone] Michelle Castillo MD [address] [address] 02/17/2025 4:30 PM EST PACE Home Care / [facility] Home Visit [facility] [place] [facility] [address] [place] [address] Ashley Eastman 02/18/2025 8:30 AM EST PACE Home Care / [facility] Home Visit [facility] [place] [facility] [address] [place] [address] Carmen Hartmann 02/18/2025 11:00 AM EST Office Visit [facility] [place] [facility] [address] [place] [address] Michelle Castillo MD [address] [address] Brigette East LPN 02/18/2025 4:30 PM EST PACE Home Care / [facility] Home Visit [facility] [place] [facility] [address] [place] [phone] Ashley Eastman 02/19/2025 8:30 AM EST PACE Home Care / [place] Home Visit [facility] [place] [facility] [address] [place] [phone] Carmen Hartmann 02/19/2025 4:30 PM EST PACE Home Care / [place] Home Visit [facility] [place] [facility] [address] [place] [address] Ashley Eastman 02/20/2025 8:30 AM EST PACE Home Care / [facility] Home Visit [facility] [place] [facility] [address] [place] [address] Carmen Hartmann 02/20/2025 9:00 AM EST [facility] [facility] [place] [facility] [address] [place] [address] 02/20/2025 4:30 PM EST PACE Home Care / [facility] [facility] Visit [facility] [place] [facility] [address] [place] [address] Ashley Eastman 02/21/2025 8:00 AM EST PACE Home Care / [place] Home Visit [facility] [place] [facility] [address] [place] [address] Carmen Hartmann 02/21/2025 9:30 AM EST PACE Home Care / [place] Home Visit [facility] [place] [facility] [address] [place] [phone] Ralph Loyola 02/21/2025 4:30 PM EST PACE Home Care / [place] Home Visit [facility] [place] [facility] [address] [place] [phone] Ashley Eastman 02/22/2025 12:00 PM EST PACE Home Care / [place] Home Visit [facility] [place] [facility] [address] [place] [phone] Dena Chavez 02/23/2025 12:00 PM EST PACE Home Care / [place] Home Visit [facility] [place] [facility] [address] [place] [phone] Dena Chavez 02/24/2025 8:30 AM EST PACE Home Care / [place] Home Visit [facility] [place] [facility] [address] [place] [phone] Carmen Hartmann 02/24/2025 4:30 PM EST PACE Home Care / [facility] Home Visit [facility] [place] [facility] [address] [place] [phone] Ashley Eastman 02/25/2025 8:30 AM EST PACE Home Care / [facility] Home Visit [facility] [place] [facility] [address] [place] [address] Carmen Hartmann 02/25/2025 4:30 PM EST PACE Home Care / [facility] Home Visit [facility] [place] [facility] [address] [place] [address] Ashley Eastman 02/26/2025 8:30 AM EST PACE Home Care / [facility] Home Visit [facility] [place] [facility] [address] [place] [address] Carmen Hartmann 02/26/2025 4:30 PM EST PACE Home Care / [facility] Home Visit [facility] [place] [facility] [address] [place] [phone] Ashley Eastman 02/27/2025 8:30 AM EST PACE Home Care / [place] [facility] Visit [facility] [place] [facility] [address] [place] [phone] Carmen Hartmann 02/27/2025 9:00 AM EST [facility] [place] [facility] [address] [place] [phone] 02/27/2025 4:30 PM EST PACE Home Care / [facility] Home Visit [facility] [place] [facility] [address] [place] [phone] Ashley Eastman 02/28/2025 8:00 AM EST PACE Home Care / [facility] Home Visit [facility] [place] [facility] [address] [place] [phone] Carmen Hartmann 02/28/2025 9:30 AM EST PACE Home Care / [place] [facility] Visit [facility] [place] [facility] [address] [place] [phone] Ralph Loyola 02/28/2025 4:30 PM EST PACE Home Care / [place] Home Visit [facility] [place] [facility] [address] [place] [phone] Ashley Eastman 03/01/2025 8:30 AM EST PACE Home Care / [place] Home Visit [facility] [place] [facility] [address] [place] [phone] Marysol Diaz 03/01/2025 12:00 PM EST PACE Home Care / [place] Home Visit [facility] [place] [facility] [address] [place] [phone] Natali Sanford 03/01/2025 5:30 PM EST PACE Home Care / [place] Home Visit [facility] [place] [facility] [address] [place] [phone] Marysol Diaz 03/02/2025 8:30 AM EST PACE Home Care / [place] Home Visit [facility] [place] [facility] [address] [place] [phone] Marysol Diaz 03/02/2025 12:00 PM EST PACE Home Care / [place] Home Visit [facility] [place] [facility] [address] [place] [phone] Natali Sanford 03/02/2025 4:30 PM EST PACE Home Care / [facility] Home Visit [facility] [place] [facility] [address] [place] [phone] Marysol Diaz 03/02/2025 5:30 PM EST PACE Home Care / [facility] Home Visit [facility] [place] [facility] [address] [place] [phone] Marysol Diaz 03/03/2025 8:30 AM EST PACE Home Care / [facility] Home Visit [facility] [place] [facility] [address] [place] [phone] Carmen Hartmann 03/03/2025 4:30 PM EST PACE Home Care / [facility] Home Visit [facility] [place] [facility] [address] [place] [phone] Ashley Eastman 03/04/2025 8:30 AM EST PACE Home Care / [facility] Home Visit [facility] [place] [facility] [address] [place] [phone] Carmen Hartmann 03/04/2025 4:30 PM EST PACE Home Care / [facility] Home Visit [facility] [place] [facility] [address] [place] [phone] Ashley Eastman 03/05/2025 8:30 AM EST PACE Home Care / [facility] Home Visit [facility] [place] [facility] [address] [place] [phone] Carmen Hartmann 03/05/2025 4:30 PM EST PACE Home Care / P[facility] Home Visit [facility] [place] [facility] [address] [place] [phone] Ashley Eastman 03/06/2025 8:30 AM EST PACE Home Care / [facility] Home Visit [facility] [place] [facility] [address] [place] [phone] Carmen Hartmann 03/06/2025 9:00 AM EST [facility] Attendance[facility] [facility] [place] [facility] [address] [place] [address] 03/06/2025 4:30 PM EST PACE Home Care / P[facility] Home Visit [facility] [address] [place] [address] Ashley Eastman 03/07/2025 Lab [facility] [address] [place] [address] Clemencia Napier, OT Schizophrenia in partial remission with history of multiple episodes (CMS/HCC V24, CMS/HCC V28) 03/07/2025 8:00 AM EST PACE Home Care / PACE Home Visit [facility] [address] [place] [phone] Carmen Hartmann 03/07/2025 9:00 AM EST Clinical Support [facility] [place] [facility] [address] [place] [address] Bethany Mccabe RN 03/07/2025 9:30 AM EST PACE Home Care / PACE Home Visit [facility] [address] [place] [phone] Ralph Loyola 03/07/2025 4:30 PM EST PACE Home Care / PACE Home Visit [facility] [address] [place] [phone] Ashley Eastman 03/08/2025 12:00 PM EST PACE Home Care / P[facility] Home Visit [facility] [address] [place] [phone] Dena Chavez 03/09/2025 12:00 PM EST PACE Home Care / PACE Home Visit [facility] [address] [place] [phone] Dena Chavez 03/10/2025 8:30 AM EST PACE Home Care / PACE Home Visit [facility] [address] [place] [phone] Carmen Hartmann 03/10/2025 4:30 PM EST PACE Home Care / PACE Home Visit [facility] [address] [place] [phone] Ashley Eastman 03/11/2025 8:30 AM EST PACE Home Care / PACE Home Visit [facility] [address] [place] [phone] Carmen Hartmann 03/11/2025 4:30 PM EST PACE Home Care / P[facility] Home Visit [facility] [address] [place] [phone] Ashley Eastman 03/12/2025 8:30 AM EST PACE Home Care / [facility] Home Visit [facility] [place] [facility] [address] [place] [address] Carmen Hartmann 03/12/2025 4:30 PM EST PACE Home Care / [facility] Home Visit [facility] [place] [facility] [address] [place] [address] Ashley Eastman 03/13/2025 8:30 AM EST PACE Home Care / [facility] Home Visit [facility] [place] [facility] [address] [place] [address] Carmen Hartmann 03/13/2025 9:00 AM EST [facility] [facility] [place] [facility] [address] [place] [address] 03/13/2025 4:30 PM EST PACE Home Care / [facility] Home Visit [facility] [place] [facility] [address] [place] [phone] Ashley Eastman 03/14/2025 8:00 AM EST PACE Home Care / [facility] Home Visit [facility] [place] [facility] [address] [place] [phone] Carmen Hartmann 03/14/2025 9:30 AM EST PACE Home Care / [facility] Home Visit [facility] [place] [facility] [address] [place] [address] Ralph Loyola 03/14/2025 4:30 PM EST PACE Home Care / [facility] Home Visit [facility] [place] [facility] [address] [place] [phone] Ashley Eastman 03/15/2025 8:30 AM EST PACE Home Care / [facility] Home Visit [facility] [place] [facility] [address] [place] [phone] Marysol Diaz 03/15/2025 12:00 PM EST PACE Home Care / [facility] Home Visit [facility] [place] [facility] [address] [place] [address] Natali Sanford 03/15/2025 5:30 PM EST PACE Home Care / [facility] Home Visit [facility] [address] [place] [address] Marysol Diaz 03/16/2025 8:30 AM EST PACE Home Care / [facility] Home Visit [facility] [place] [facility] [address] [place] [address] Marysol Diaz 03/16/2025 12:00 PM EST PACE Home Care / [facility] Home Visit [facility] [place] [facility] [address] [place] [phone] Natali Sanford 03/16/2025 4:30 PM EST PACE Home Care / P[facility] Home Visit [facility] [place] [facility] [address] [place] [address] Marysol Diaz 03/16/2025 5:30 PM EST PACE Home Care / [facility] Home Visit [facility] [place] [facility] [address] [place] [phone] Marysol Diaz 03/17/2025 8:30 AM EST PACE Home Care / [facility] Home Visit [facility] [place] [facility] [address] [place] [phone] Carmen Hartmann 03/17/2025 4:30 PM EST PACE Home Care / [facility] Home Visit [facility] [place] [facility] [address] [place] [phone] Ashley Eastman 03/18/2025 8:30 AM EST PACE Home Care / [facility] Visit [facility] [place] [facility] [address] [place] [phone] Carmen Hartmann 03/18/2025 11:00 AM EST Office Visit [facility] [place] [facility] [address] [place] [address] Michelle Castillo MD [address] [address] Brigette East LPN 03/18/2025 4:30 PM EST PACE Home Care / [facility] Home Visit [facility] [place] [facility] [address] [place] [phone] Ashley Eastman 03/19/2025 8:30 AM EST PACE Home Care / [facility] Visit [facility] [place] [facility] [address] [place] [phone] Carmen Hartmann 03/19/2025 4:30 PM EST PACE Home Care / [facility] Home Visit [facility] [place] [facility] [address] [place] [phone] Ashley Eastman 03/20/2025 8:30 AM EST PACE Home Care / [facility] Visit [facility] [address] [place] [phone] Carmen Hartmann 03/20/2025 9:00 AM EST [facility] Att[facility]ance[facility] [facility] [place] [facility] [address] [place] [phone] 03/20/2025 4:30 PM EST PACE Home Care / [facility] Home Visit [facility] [place] [facility] [address] [place] [phone] Ashley Eastman 03/21/2025 8:00 AM EST PACE Home Care / [facility] Home Visit [facility] [place] [facility] [address] [place] [phone] Carmen Hartmann 03/21/2025 9:30 AM EST PACE Home Care / [facility] Visit [facility] [place] [facility] [address] [place] [phone] Ralph Loyola 03/21/2025 4:30 PM EST PACE Home Care / [facility] Visit [facility] [address] [place] [phone] Ashley Eastman 03/22/2025 12:00 PM EST PACE Home Care / [facility] Visit [facility] [address] [place] [phone] Dena Chavez 03/23/2025 12:00 PM EST PACE Home Care / [facility] Visit [facility] [place] [facility] [address] [place] [phone] Dean Chavez 03/24/2025 8:30 AM EST PACE Home Care / [facility] Home Visit [facility] [address] [place] [phone] Carmen Hartmann 03/24/2025 9:45 AM EST Appointment [facility] Xray [address] [place] [address] Lakia Hou, [facility] [employer] OFFICER 03/24/2025 4:30 PM EST PACE Home Care / [facility] [address] [place] [phone] Ashley Eastman 03/25/2025 8:30 AM EST PACE Home Care / [facility] Home Visit [facility] [place] [facility] [address] [place] [phone] Carmen Hartmann 03/25/2025 4:30 PM EST PACE Home Care / [facility] Home Visit [facility] [place] [facility] [address] [place] [phone] Ashley Eastman 03/26/2025 8:30 AM EST PACE Home Care / [facility] Visit [facility] [place] [facility] [address] [place] [phone] Carmen Hartmann 03/26/2025 4:30 PM EST PACE Home Care / P[facility] Visit [facility] [address] [place] [address] Ashley Eastman 03/27/2025 8:30 AM EST PACE Home Care / P[facility] Visit [facility] [address] [place] [address] Carmen Hartmann 03/27/2025 9:00 AM EST [facility] Att[facility] [place] [facility] [address] [place] [address] 03/27/2025 2:40 PM EST Clinical Support [facility] [place] [address] [place] [address] 03/27/2025 4:30 PM EST PACE Home Care / [facility] [address] [place] [address] Ashley Eastman 03/28/2025 8:00 AM EST PACE Home Care / [facility] [address] [place] [address] Carmen Hartmann 03/28/2025 10:00 AM EST Clinical Support [facility] [place] [facility] [address] [place] [address] Bethany Mccabe RN 03/28/2025 4:30 PM EST PACE Home Care / [facility] Visit [facility] [address] [place] [address] Ashley Eastman 03/29/2025 8:30 AM EST PACE Home Care / [facility] Visit [facility] [place] [facility] [address] [place] [address] Marysol Diaz 03/29/2025 12:00 PM EST PACE Home Care / [facility] 200 [facility] [place] [address] Natali Sanford 03/29/2025 5:30 PM EST PACE Home Care / [facility] [place] [facility] [address] [place] [phone] [facility] 03/30/2025 8:30 AM EST P[facility] Home Care / [facility] [place] [facility] [address] [place] [phone] [facility] 03/30/2025 12:00 PM EST PACE Home Care / [facility] Visit [facility] [place] [facility] [address] [place] [phone] Natali Sanford 03/30/2025 4:30 PM EST PACE Home Care / [facility] Visit [facility] [place] [facility] [address] [place] [phone] [facility] 03/30/2025 5:30 PM EST PACE Home Care / [facility] Visit [facility] [place] [facility] [address] [place] [phone] [place] 03/31/2025 8:30 AM EST PACE Home Care / [facility] Visit [facility] [place] [facility] [address] [place] [phone] Carmen Hartmann 03/31/2025 4:30 PM EST PACE Home Care / [facility] Visit [facility] [place] [facility] [address] [place] [phone] Ashley Eastman 04/01/2025 8:30 AM EST PACE Home Care / [facility] [place] [facility] [address] [place] [phone] Carmen Hartmann 04/01/2025 1:15 PM EST PACE External Visit [facility] [place] [address] [place] [phone] 04/01/2025 4:30 PM EST PACE Home Care / [facility] Visit [facility] [place] [facility] [address] [place] [address] Ashley Eastman 04/02/2025 8:30 AM EST PACE Home Care / [facility] Visit [facility] [place] [facility] [address] [place] [address] Carmen Hartmann 04/02/2025 4:30 PM EST PACE Home Care / [facility] [place] [facility] [address] [place] [address] Ashley Eastman 04/03/2025 8:30 AM EST PACE Home Care / [facility] [place] [facility] [address] [place] [address] Carmen Hartmann 04/03/2025 9:00 AM EST [facility] [facility] [place] [facility] [address] [place] [address] 04/03/2025 4:30 PM EST PACE Home Care / [facility] [place] [facility] [address] [place] [address] Ashley Eastman 04/04/2025 8:00 AM EST PACE Home Care / [facility] [place] [facility] [address] [place] [address] Carmen Hartmann 04/04/2025 9:30 AM EST PACE Home Care / [facility] [place] [facility] [address] [place] [phone] Ralph Loyola 04/04/2025 4:30 PM EST PACE Home Care / [facility] Visit [facility] [place] [facility] [address] [place] [address] Ashley Eastman 04/05/2025 12:00 PM EST PACE Home Care / [facility] [place] [facility] [address] [place] [phone] Dena Chavez 04/06/2025 12:00 PM EST PACE Home Care / [facility] Visit [facility] [place] [facility] [address] [place] [phone] Dena Chavez 2025 8:30 AM EST PACE Home Care / [facility] Visit [facility] [place] [facility] [address] [place] [phone] Carmen Hartmann 2025 4:30 PM EST PACE Home Care / [facility] [place] [facility] [address] [place] [phone] Ashley Eastman 04/08/2025 8:30 AM EST PACE Home Care / [facility] [place] [facility] [address] [place] [phone] Carmen Hartmann 04/08/2025 4:30 PM EST PACE Home Care / [facility] [place] [facility] [address] [place] [phone] Ashley Eastman 04/09/2025 8:30 AM EST P[facility] Home Care / [facility] [place] [facility] [address] [place] [phone] Carmen Hartmann 04/09/2025 4:30 PM EST P[facility] Home Care / [facility] [place] [facility] [address] [place] [phone] Ashley [place] 04/10/2025 8:30 AM EST P[facility] Home Care / [place] [facility] [place] [facility] [address] [place] [phone] Carmen Hartmann 04/10/2025 9:00 AM EST PACE Attendance/[place] [facility] [place] [facility] [place] [facility] [address] [place] [address] 04/10/2025 4:30 PM EST PACE Home Care / [facility] [place] [facility] [address] [place] [address] Ashley Eastman 04/11/2025 8:00 AM EST P[facility] Home Care / [place] [facility] [place] [facility] [address] [place] [address] Carmen Hartmann 04/11/2025 9:30 AM EST P[facility] Home Care / [place] [facility] [place] [facility] [place] [facility] [address] [place] [address] Ralph Loyola 04/11/2025 4:30 PM EST P[facility] Home Care / [place] [facility] [place] [facility] [address] [place] [phone] Ashley Eastman 04/12/2025 8:30 AM EST P[facility] Home Care / [place] [facility] [place] [facility] [place] [facility] [address] [place] [phone] Marysol Diaz 04/12/2025 12:00 PM EST P[facility] Home Care / [place] [facility] [place] [facility] [address] [place] [phone] Natali Sanford 04/12/2025 5:30 PM EST P[facility] Home Care / [place] [facility] [place] [facility] [address] [place] [phone] Marysol Diaz 04/15/2025 11:00 AM EST Office Visit [facility] [place] [facility] [address] [place] [address] Michelle Castillo MD [address] [place] [phone] Brigette East LPN 04/17/2025 9:00 AM EST PACE Attendance/Day Center [facility] [place] P[facility] Day [address] [phone] 04/18/2025 10:00 AM EST Clinical Support [facility] PACE [address] [phone] Bethany Mccabe RN 04/24/2025 9:00 AM EST PACE Attendance/Day Center [facility] Day [address] [address] 04/24/2025 11:30 AM EST Clinical Support [address] [address] 05/01/2025 9:00 AM EST PACE Attendance/Day Center [facility] Day [address] [address] 05/08/2025 9:00 AM EST PACE Attendance/Day Center [facility] Day [address] [address] 05/09/2025 10:00 AM EST Clinical Support [address] [phone] Bethany Mccabe RN 05/13/2025 11:00 AM EST Office Visit [facility] PACE [address] [phone] Michelle Castillo MD [address] [place] [phone] Brigette East LPN 05/15/2025 9:00 AM EST PACE Attendance/Day Center [facility] [place] PACE Day [address] [address] 05/22/2025 9:00 AM EST PACE Attendance/Day Center [facility] PACE Day [address] [address] 05/29/2025 9:00 AM EST PACE Attendance/Day Center [facility] Day [address] [address] 05/30/2025 10:00 AM EST Clinical Support [address] [phone] Bethany Mccabe RN 06/05/2025 9:00 AM EST PACE Attendance/Day Center [facility] Day [address] [address] 06/10/2025 11:00 AM EST Office Visit [address] [phone] Michelle Castillo MD [address] [place] [phone] Brigette East LPN 06/12/2025 9:00 AM EST PACE Attendance/Day Center [facility] Day [address] [address] 06/19/2025 9:00 AM EST PACE Attendance/Day Center [address] [address] 06/20/2025 10:00 AM EST Clinical Support [address] [phone] Bethany Mccabe RN 06/26/2025 9:00 AM EDT PACE Attendance/Day Center [facility] Day [address] [address] 06/27/2025 1:20 PM EDT Office Visit Gastroenterology - 299 [facility] 299 [facility] [address] [place] [phone] Analisa Perez, ALONSO [address] [place] [address] 07/03/2025 9:00 AM EDT [place] Attend[facility] [facility] [place] [address] [place] [address] 07/10/2025 9:00 AM EDT [place] Att[place] [facility] [place] [address] [place] [address] 07/11/2025 10:00 AM EDT Clinical Support [facility] [place] [facility] [address] [place] [address] Bethany Mccabe, HEIDI 07/17/2025 9:00 AM EDT [facility] Attendance[facility] [facility] [place] [facility] [facility] [address] [place] [phone] 07/17/2025 3:30 PM EDT PACE External Visit [facility] A[facility] [address] [address] 07/24/2025 9:00 AM EDT [place] Att[place] [facility] [place] [facility] [address] [place] [phone] 07/31/2025 9:00 AM EDT [place] Att[place] [facility] [place] [facility] [facility] [address] [place] [phone] 08/01/2025 10:00 AM EDT Clinical [place] [facility] [place] [facility] [address] [place] [address] Bethany Mccabe RN 08/07/2025 9:00 AM EDT [place] Attendance[place] [facility] [place] [facility] [facility] [address] [place] [address] 08/14/2025 9:00 AM EDT [place] Att[place]ance[place] [facility] [place] [facility] [address] [place] [address] 08/21/2025 9:00 AM EDT [place] Attendance[place] [facility] [place] [facility] [facility] [address] [place] [phone] 08/22/2025 10:00 AM EDT Clinical Support [facility] [place] [facility] [address] [place] [phone] Bethany Mccabe RN 08/28/2025 9:00 AM EDT P[place] Attendance/Day [place] [facility] [place] [facility] Day Center [address] [place] [phone] 09/04/2025 9:00 AM EDT [facility] [place] [facility] [address] [place] [phone] 09/11/2025 9:00 AM EDT [facility] [place] [facility] [address] [place] [phone] 09/12/2025 10:00 AM EDT Clinical Support [facility] [place] [address] [address] Bethany Mccabe RN 09/18/2025 9:00 AM EDT PACE Attendance/Day Center [facility] [place] [facility] Day Center [address] [place] [phone] 09/25/2025 9:00 AM EDT [facility] [place] [facility] [address] [place] [phone] 10/02/2025 9:00 AM EDT [facility] [place] [facility] [address] [place] [phone] 10/03/2025 10:00 AM EDT Clinical Support [facility] [place] [address] [address] Bethany Mccabe RN 10/09/2025 9:00 AM EDT PACE Attendance/Day Center [facility] [place] P[facility] Day [address] [address] 10/24/2025 10:00 AM EDT Clinical Support [facility] [place] P[facility] [address] [address] Bethany Mccabe, HEIDI 11/14/2025 10:00 AM EDT [facility] [address] [address] Bethany Mccabe, HEIDI 12/05/2025 10:00 AM EDT Clinical Support [address] [address] Bethany Mccabe, HEIDI 12/26/2025 10:00 AM EDT Clinical Support [address] [address] Betahny Mccabe, HEIDI 01/16/2026 10:00 AM EDT Clinical Support [address] [address] Bethany Mccabe, HEIDI 02/06/2026 10:00 AM EDT Clinical Support [address] [address] Bethany Mccabe, HEIDI 02/27/2026 10:00 AM EST Clinical Support [address] [phone] Bethany Mccabe, RN documented as of this encounter Visit Diagnoses Not on filedocumented in this encounter Additional Health Concerns Infection Onset Date Last Indicated Resolved Time Gastrointestinal Rule-Out 02/10/2025 02/10/2025 documented as of this encounter Care Teams Sugar Controller Relationship Specialty Start Date End Date Regulo Ivy NP [address] [place] [phone] PCP - General PACE 06/07/24 documented as of this encounter
--- OUTSIDE RECORDS SUMMARY | 2025-02-11 19:40 | XMS_ITS | Encounter Summary ---
Author Organization [facility] Address [address] [place] [address] Care Team Providers Care Moccasin Sewer Name Role Phone Regulo Ivy NP Primary Care Provider [phone] Encounter Details Date Type Department Care Team (Late st Contact Info) Description 06/18/2024 Health Home Core Service [facility] In Home Nursing and Aide Services [address] [place] [address] Juliet Scott NP 200 [facility] [address] [place] [address] Social History Tobacco Use Types Packs/Day Years [...] In Home Nursing and Aide Services [address] [place] [address] Carmen Hartmann 02/12/2025 4:30 PM EDT PACE Home Care / PACE Home Visit [facility] [place] In [facility] Aide Services [address] [place] [address] Ashley Eastman 02/13/2025 8:30 AM EDT PACE Home Care / PACE Home Visit [facility] [place] In [facility] [address] [place] [phone] Carmen Hartmann 02/13/2025 9:00 AM EDT PACE Attendance/[place] [facility] [place] [facility] [address] [place] [address] 02/13/2025 4:30 PM EDT PACE Home Care / PACE Home Visit [facility] [place] [facility] [address] [place] [phone] Ashley Eastman 02/14/2025 8:00 AM EDT PACE Home Care / PACE Home Visit [facility] [place] In [facility] A[facility] Services [address] [place] [phone] Carmen Hartmann 02/14/2025 9:30 AM EDT PACE Home Care / PACE Home Visit [facility] [place] In [facility] A[facility] Services [address] [place] [phone] Ralph Loyola 02/14/2025 4:30 PM EDT PACE Home Care / PACE Home Visit [facility] [place] In [facility] [address] [place] [phone] Ashley Eastman 02/15/2025 8:30 AM EDT PACE Home Care / [place] Home Visit [facility] [place] [facility] [address] [place] [phone] Marysol Diaz 02/15/2025 12:00 PM EDT PACE Home Care / [facility] [place] [facility] [address] [place] [phone] Natali Sanford 02/15/2025 5:30 PM EDT PACE Home Care / [place] Home Visit [facility] [place] [facility] [address] [place] [phone] Marysol Diaz 02/16/2025 8:30 AM EST PACE Home Care / [facility] Visit [facility] [place] [facility] [address] [place] [phone] Marysol Diaz 02/16/2025 12:00 PM EST PACE Home Care / [place] Home Visit [facility] [place] [facility] [address] [place] [phone] Natali Sanford 02/16/2025 4:30 PM EST PACE Home Care / [place] Home Visit [facility] [place] [facility] [address] [place] [phone] Marysol Diaz 02/16/2025 5:30 PM EST PACE Home Care / [place] Home Visit [facility] [place] [facility] [address] [place] [phone] Marysol Diaz 02/17/2025 8:30 AM EST PACE Home Care / [facility] Visit [facility] [place] [facility] [address] [place] [phone] Carmen Hartmann 02/17/2025 11:00 AM EST Office Visit [facility] [place] [facility] [address] [place] [phone] Michelle Castillo MD [address] [place] [address] 02/17/2025 4:30 PM EST PACE Home Care / [facility] Home Visit [facility] [place] [facility] [address] [place] [phone] Ashley Eastman 02/18/2025 8:30 AM EST PACE Home Care / [place] Home Visit [facility] [place] [facility] [address] [place] [phone] Carmen Hartmann 02/18/2025 11:00 AM EST Office Visit [facility] [place] [facility] [address] [place] [phone] Michelle Castillo MD [address] [place] [phone] Brigette East LPN 02/18/2025 4:30 PM EST PACE Home Care / PACE Home Visit [facility] [place] [facility] [address] [place] [phone] Ashley Eastman 02/19/2025 8:30 AM EST PACE Home Care / P[place] Home Visit [facility] [place] [facility] [address] [place] [phone] Carmen Hartmann 02/19/2025 4:30 PM EST PACE Home Care / P[place] Home Visit [facility] [place] [facility] [address] [place] [phone] Ashley Eastman 02/20/2025 8:30 AM EST PACE Home Care / [place] Home Visit [facility] [place] [facility] [address] [place] [phone] Carmen Hartmann 02/20/2025 9:00 AM EST [place] [facility] [place] [facility] [address] [place] [phone] 02/20/2025 4:30 PM EST PACE Home Care / P[place] Home Visit [facility] [place] [facility] [address] [place] [address] Ashley Eastman 02/21/2025 8:00 AM EST PACE Home Care / [place] Home Visit [facility] [place] [facility] [address] [place] [address] Carmen Hartmann 02/21/2025 9:30 AM EST PACE Home Care / [place] Home Visit [facility] [place] [facility] [address] [place] [phone] Ralph Loyola 02/21/2025 4:30 PM EST PACE Home Care / [place] Home Visit [facility] [place] [facility] [address] [place] [phone] Ashley Eastman 02/22/2025 12:00 PM EST PACE Home Care / P[place] Home Visit [facility] [place] [facility] [address] [place] [phone] Dena Chavez 02/23/2025 12:00 PM EST PACE Home Care / [place] Home Visit [facility] [place] [facility] [address] [place] [phone] Dena Chavez 02/24/2025 8:30 AM EST PACE Home Care / [place] Home Visit [facility] [place] [facility] [address] [place] [phone] Carmen Hartmann 02/24/2025 4:30 PM EST PACE Home Care / [place] Home Visit [facility] [place] [facility] [address] [place] [phone] Ashley Eastman 02/25/2025 8:30 AM EST PACE Home Care / [place] Home Visit [facility] [place] [facility] [address] [place] [phone] Carmen Hartmann 02/25/2025 4:30 PM EST PACE Home Care / P[place] Home Visit [facility] [place] [facility] [address] [place] [address] Ashley Eastman 02/26/2025 8:30 AM EST PACE Home Care / P[place] Home Visit [facility] [place] [facility] [address] [place] [address] Carmen Hartmann 02/26/2025 4:30 PM EST PACE Home Care / P[place] Home Visit [facility] [place] [facility] [address] [place] [address] Ashley Eastman 02/27/2025 8:30 AM EST PACE Home Care / [place] Home Visit [facility] [place] [facility] [address] [place] [address] Carmen Hartmann 02/27/2025 9:00 AM EST [facility]ACE Attendance[place] [facility] [place] [facility] [address] [place] [address] 02/27/2025 4:30 PM EST PACE Home Care / [place] Home Visit [facility] [place] [facility] [address] [place] [address] Ashley Eastman 02/28/2025 8:00 AM EST PACE Home Care / [place] Home Visit [facility] [place] [facility] [address] [place] [address] Carmen Hartmann 02/28/2025 9:30 AM EST PACE Home Care / [place] Home Visit [facility] [place] [facility] [address] [place] [address] Ralph Loyola 02/28/2025 4:30 PM EST PACE Home Care / P[place] Home Visit [facility] [place] [facility] [address] [place] [address] Ashley Eastman 03/01/2025 8:30 AM EST PACE Home Care / [place] Home Visit [facility] [place] [facility] [address] [place] [address] Marysol Diaz 03/01/2025 12:00 PM EST PACE Home Care / [place] Home Visit [facility] [place] [facility] [address] [place] [phone] Natali Sanford 03/01/2025 5:30 PM EST PACE Home Care / [place] Home Visit [facility] [place] [facility] [address] [place] [phone] Joe Marysol 03/02/2025 8:30 AM EST PACE Home Care / [place] Home Visit [facility] [place] [facility] [address] [place] [phone] [facility]sol 03/02/2025 12:00 PM EST PACE Home Care / [place] Home Visit [facility] [place] [facility] [address] [place] [phone] Natali Sanford 03/02/2025 4:30 PM EST PACE Home Care / [place] Home Visit [facility] [place] [facility] [address] [place] [phone] [facility] Marysol 03/02/2025 5:30 PM EST PACE Home Care / [place] Visit [facility] [place] [facility] [address] [place] [phone] [facility] 03/03/2025 8:30 AM EST PACE Home Care / [place] Home Visit [facility] [place] [facility] [address] [place] [phone] Carmen Hartmann 03/03/2025 4:30 PM EST PACE Home Care / [place] Home Visit [facility] [place] [facility] [address] [place] [phone] Ashley Eastman 03/04/2025 8:30 AM EST PACE Home Care / [place] Home Visit [facility] [place] [facility] [address] [place] [phone] Carmen Hartmann 03/04/2025 4:30 PM EST PACE Home Care / PACE Home Visit [facility] [place] In [facility] A[facility] Services [address] [place] [phone] Ashley Eastman 03/05/2025 8:30 AM EST PACE Home Care / PACE Home Visit [facility] [place] In [facility] A[facility] Services [address] [place] [phone] Carmen Hartmann 03/05/2025 4:30 PM EST PACE Home Care / PACE Home Visit [facility] [place] [facility] A[facility] Services [address] [place] [phone] Ashley Eastman 03/06/2025 8:30 AM EST PACE Home Care / PACE Home Visit [facility] [place] In [facility] A[facility] Services [address] [place] [phone] Carmen Hartmann 03/06/2025 9:00 AM EST PACE Attendance/Day Center [facility] [address] [place] [phone] 03/06/2025 4:30 PM EST PACE Home Care / PACE Home Visit [facility] [place] [facility] A[facility] Services [address] [place] [phone] Ashley Eastman 03/07/2025 Lab Eddsonja ABRAMS [place] Occupational Therapy [address] [place] [phone] Karthikeyan, Clemencia, OT Schizophrenia in partial remission with history of multiple episodes (CMS/HCC V24, CMS/HCC V28) 03/07/2025 8:00 AM EST PACE Home Care / PACE Home Visit [facility] [place] [facility] [address] [place] [phone] Carmen Hartmann 03/07/2025 9:00 AM EST Clinical Support [facility] [place] [facility] [address] [place] [phone] Bethany Mccabe RN 03/07/2025 9:30 AM EST PACE Home Care / [facility] Home Visit [facility] [place] [facility] [address] [place] [phone] Ralph Loyola 03/07/2025 4:30 PM EST PACE Home Care / [place] Home Visit [facility] [place] [facility] [address] [place] [phone] Ashley Eastman 03/08/2025 12:00 PM EST PACE Home Care / [place] Home Visit [facility] [place] [facility] [address] [place] [phone] Dena Chavez 03/09/2025 12:00 PM EST PACE Home Care / P[place] Home Visit [facility] [place] [facility] [address] [place] [phone] Dena Chavez 03/10/2025 8:30 AM EST PACE Home Care / [place] Home Visit [facility] [place] [facility] [address] [place] [phone] Carmen Hartmann 03/10/2025 4:30 PM EST PACE Home Care / [place] Home Visit [facility] [place] [facility] [address] [place] [phone] Ashley Eastman 03/11/2025 8:30 AM EST PACE Home Care / [place] Home Visit [facility] [place] [facility] [address] [place] [phone] Carmen Hartmann 03/11/2025 4:30 PM EST PACE Home Care / P[place] Home Visit [facility] [place] [facility] [address] [place] [phone] Ashley Eastman 03/12/2025 8:30 AM EST PACE Home Care / P[place] Home Visit [facility] [place] [facility] [address] [place] [phone] Carmen Hartmann 03/12/2025 4:30 PM EST PACE Home Care / PACE Home Visit [facility] [place] [facility] [address] [place] [phone] Ashley Eastman 03/13/2025 8:30 AM EST PACE Home Care / [place] Home Visit [facility] [place] [facility] [address] [place] [phone] Carmen Hartmann 03/13/2025 9:00 AM EST PACE Attendance/[place] [facility] [place] [address] [place] [address] 03/13/2025 4:30 PM EST PACE Home Care / [place] Home Visit [facility] [place] [facility] [address] [place] [phone] Ashley Eastman 03/14/2025 8:00 AM EST PACE Home Care / [facility] Visit [facility] [place] [facility] [address] [place] [phone] Carmen Hartmann 03/14/2025 9:30 AM EST PACE Home Care / [place] Home Visit [facility] [place] [facility] [address] [place] [phone] Ralph Loyola 03/14/2025 4:30 PM EST PACE Home Care / [place] Home Visit [facility] [place] [facility] [address] [place] [phone] Ashley Eastman 03/15/2025 8:30 AM EST PACE Home Care / [place] Home Visit [facility] [place] [facility] [address] [place] [phone] Marysol Diaz 03/15/2025 12:00 PM EST PACE Home Care / [place] Home Visit [facility] [place] [facility] [address] [place] [phone] Natali Sanford 03/15/2025 5:30 PM EST PACE Home Care / [place] Home Visit [facility] [place] [facility] [address] [place] [phone] Marysol Diaz 03/16/2025 8:30 AM EST PACE Home Care / [place] Home Visit [facility] [place] [facility] [address] [place] [phone] Marysol Diaz 03/16/2025 12:00 PM EST PACE Home Care / [place] Home Visit [facility] [place] [facility] [address] [place] [phone] Natali Sanford 03/16/2025 4:30 PM EST PACE Home Care / [place] Home Visit [facility] [place] [facility] [address] [place] [phone] Marysol Diaz 03/16/2025 5:30 PM EST PACE Home Care / [facility] Home Visit [facility] [place] [facility] [address] [place] [phone] Marysol Diaz 03/17/2025 8:30 AM EST PACE Home Care / [place] Home Visit [facility] [place] [facility] [address] [place] [phone] Carmen Hartmann 03/17/2025 4:30 PM EST PACE Home Care / [place] Home Visit [facility] [place] [facility] [address] [place] [phone] Ashley Eastman 03/18/2025 8:30 AM EST PACE Home Care / [place] Home Visit [facility] [place] [facility] [address] [place] [phone] Carmen Hartmann 03/18/2025 11:00 AM EST Office Visit [facility] [place] [facility] [address] [place] [phone] Michelle Castillo MD [address] [place] [address] [place] [address] Brigette East LPN 03/18/2025 4:30 PM EST PACE Home Care / [facility] Home Visit [facility] [place] [facility] [address] [place] [phone] Ashley Eastman 03/19/2025 8:30 AM EST PACE Home Care / [place] Home Visit [facility] [place] [facility] [address] [place] [phone] Carmen Hartmann 03/19/2025 4:30 PM EST PACE Home Care / [place] [facility] Visit [facility] [place] [facility] [address] [place] [phone] Ashley Eastman 03/20/2025 8:30 AM EST PACE Home Care / [place] [facility] Visit [facility] [place] [facility] [address] [place] [phone] Carmen Hartmann 03/20/2025 9:00 AM EST [facility] Att[place] [facility] [place] [facility] [address] [place] [phone] 03/20/2025 4:30 PM EST PACE Home Care / [place] [facility] Visit [facility] [place] [facility] [address] [place] [phone] Ashley Eastman 03/21/2025 8:00 AM EST PACE Home Care / [place] [facility] Visit [facility] [place] [facility] [address] [place] [phone] Carmen Hartmann 03/21/2025 9:30 AM EST PACE Home Care / [place] [facility] Visit [facility] [place] [facility] [address] [place] [phone] Ralph Loyola 03/21/2025 4:30 PM EST PACE Home Care / [place] [facility] Visit [facility] [place] [facility] [address] [place] [phone] Ashley Eastman 03/22/2025 12:00 PM EST PACE Home Care / [place] [facility] Visit [facility] [place] [facility] [address] [place] [phone] Dena Chavez 03/23/2025 12:00 PM EST PACE Home Care / [place] [facility] Visit [facility] [place] [facility] [address] [place] [phone] Dena Chavez 03/24/2025 8:30 AM EST PACE Home Care / [place] [facility] Visit [facility] [place] [facility] [address] [place] [phone] Carmen Hartmann 03/24/2025 9:45 AM EST Appointment [address] [phone] Lakia Hou, [facility] 03/24/2025 4:30 PM EST PACE Home Care / [facility] Home Visit [facility] [place] [facility] [address] [place] [phone] Ashley Eastman 03/25/2025 8:30 AM EST PACE Home Care / [facility] [facility] Visit [facility] [place] [facility] [address] [place] [phone] Carmen Hartmann 03/25/2025 4:30 PM EST PACE Home Care / [place] [facility] Visit [facility] [place] [facility] [address] [place] [phone] Ashley Eastman 03/26/2025 8:30 AM EST PACE Home Care / [place] [facility] Visit [facility] [place] [facility] [address] [place] [phone] Carmen Hartmann 03/26/2025 4:30 PM EST PACE Home Care / [facility] [facility] Visit [facility] [place] [facility] [address] [place] [phone] Ashley Eastman 03/27/2025 8:30 AM EST PACE Home Care / P[facility] Home Visit [facility] [place] [facility] [address] [place] [address] Carmen Hartmann 03/27/2025 9:00 AM EST [facility] Attendance[facility] [facility] [place] [facility] [address] [place] [address] 03/27/2025 2:40 PM EST Clinical Support [facility] [place] [address] [place] [address] 03/27/2025 4:30 PM EST PACE Home Care / PACE Home Visit [facility] [place] [facility] [address] [place] [address] Ashley Eastman 03/28/2025 8:00 AM EST PACE Home Care / P[facility] Home Visit [facility] [place] [facility] [address] [place] [address] Carmen Hartmann 03/28/2025 10:00 AM EST Clinical Support [facility] [place] [facility] [address] [place] [address] Bethany Mccabe RN 03/28/2025 4:30 PM EST PACE Home Care / P[facility] Home Visit [facility] [place] [facility] [address] [place] [address] Ashley Eastman 03/29/2025 8:30 AM EST PACE Home Care / PACE Home Visit [facility] [place] [facility] [address] [place] [address] Marysol Diaz 03/29/2025 12:00 PM EST PACE Home Care / [facility] [place] [facility] [address] [place] [address] Natali Sanford 03/29/2025 5:30 PM EST PACE Home Care / [facility] Visit [facility] [place] [facility] [address] [place] [address] Marysol Diaz 03/30/2025 8:30 AM EST PACE Home Care / [place] [facility] Visit [facility] [place] [facility] [address] [place] [address] Marysol Diaz 03/30/2025 12:00 PM EST PACE Home Care / [place] [facility] Visit [facility] [place] [facility] [address] [place] [phone] Natali Sanford 03/30/2025 4:30 PM EST PACE Home Care / [facility] Visit [facility] [place] [facility] [address] [place] [phone] Marysol Diaz 03/30/2025 5:30 PM EST PACE Home Care / [place] [facility] Visit [facility] [place] [facility] [address] [place] [phone] Marysol Diaz 03/31/2025 8:30 AM EST PACE Home Care / [place] [facility] Visit [facility] [place] [facility] [address] [place] [phone] Carmen Hartmann 03/31/2025 4:30 PM EST PACE Home Care / [place] [facility] Visit [facility] [place] [facility] [address] [place] [phone] Ashley Eastman 04/01/2025 8:30 AM EST PACE Home Care / [place] [facility] [place] [facility] [address] [place] [phone] Carmen Hartmann 04/01/2025 1:15 PM EST PACE External Visit [facility] [place] [address] [place] [phone] 04/01/2025 4:30 PM EST PACE Home Care / [place] [facility] [place] [facility] [address] [place] [phone] Ashley Eastman 04/02/2025 8:30 AM EST PACE Home Care / [place] [facility] [place] [facility] [address] [place] [address] Carmen Hartmann 04/02/2025 4:30 PM EST PACE Home Care / [facility] [place] [facility] [address] [place] [address] Ashley Eastman 04/03/2025 8:30 AM EST PACE Home Care / [facility] [place] [facility] [address] [place] [address] Carmen Hartmann 04/03/2025 9:00 AM EST [facility] Attendance[facility] [facility] [place] [facility] [address] [place] [address] 04/03/2025 4:30 PM EST PACE Home Care / [facility] Visit [facility] [place] [facility] [address] [place] [address] Ashley Eastman 04/04/2025 8:00 AM EST PACE Home Care / [facility] [place] [facility] [address] [place] [phone] Carmen Hartmann 04/04/2025 9:30 AM EST PACE Home Care / [facility] [facility] [place] [facility] [address] [place] [address] Ralph Loyola 04/04/2025 4:30 PM EST PACE Home Care / [facility] [place] [facility] [address] [place] [address] Ashley Eastman 04/05/2025 12:00 PM EST PACE Home Care / [facility] [facility] [place] [facility] [address] [place] [phone] Dena Chavez 04/06/2025 12:00 PM EST PACE Home Care / [facility] [place] [facility] [address] [place] [address] Dena Chavez 2025 8:30 AM EST PACE Home Care / [facility] [place] [facility] [address] [place] [address] Carmen Hartmann 2025 4:30 PM EST PACE Home Care / [place] [facility] [place] [facility] [address] [place] [address] Ashley Eastman 04/08/2025 8:30 AM EST PACE Home Care / [place] [facility] [place] [facility] [address] [place] [phone] Carmen Hartmann 04/08/2025 4:30 PM EST PACE Home Care / [place] [facility] [place] [facility] [address] [place] [phone] Ashley Eastman 04/09/2025 8:30 AM EST PACE Home Care / [facility] [facility] [place] [facility] [address] [place] [phone] Carmen Hartmann 04/09/2025 4:30 PM EST PACE Home Care / [place] [facility] [place] [facility] [address] [place] [phone] Ashley Eastman 04/10/2025 8:30 AM EST PACE Home Care / [place] [facility] [place] [facility] [address] [place] [phone] Carmen Hartmann 04/10/2025 9:00 AM EST [facility] Att[facility] [facility] [place] [facility] [address] [place] [address] 04/10/2025 4:30 PM EST PACE Home Care / [place] [facility] [place] [facility] [address] [place] [phone] Ashley Eastman 04/11/2025 8:00 AM EST PACE Home Care / [place] [facility] [place] [facility] [address] [place] [phone] Carmen Hartmann 04/11/2025 9:30 AM EST PACE Home Care / [place] [facility] [place] [facility] [address] [place] [phone] Ralph Loyola 04/11/2025 4:30 PM EST PACE Home Care / [place] [facility] [place] [facility] and [facility] [address] [place] [phone] Ashley Eastman 04/12/2025 8:30 AM EST [facility] Home [facility] / [facility] [place] [facility] [place] [facility] [address] [place] [phone] Marysol Diaz 04/12/2025 12:00 PM EST [facility] Home [facility] / [place] [facility] [place] [facility] [address] [place] [phone] Natali Sanford 04/12/2025 5:30 PM EST [facility] Home [facility] / [place] [facility] [place] [facility] [address] [place] [phone] Marysol Diaz 04/15/2025 11:00 AM EST Office Visit [facility] [place] [facility] [address] [place] [phone] Michelle Castillo MD [address] [address] Brigette East LPN 04/17/2025 9:00 AM EST [facility] Attend[place] [facility] [place] [facility] [address] [facility] [place] [address] 04/18/2025 10:00 AM EST [facility] [place] [facility] [address] [place] [phone] Bethany Mccabe RN 04/24/2025 9:00 AM EST [facility] [place] [address] [phone] 04/24/2025 11:30 AM EST [facility] [address] [phone] 05/01/2025 9:00 AM EST [facility] Attend[facility] [place] [address] [phone] 05/08/2025 9:00 AM EST [facility] [place] [address] [phone] 05/09/2025 10:00 AM EST Clinical [facility] [place] [facility] [address] [place] [phone] Bethany Mccabe RN 05/13/2025 11:00 AM EST [facility] [address] [phone] Michelle Castillo MD [address] [place] [phone] Brigette East LPN 05/15/2025 9:00 AM EST [facility] Attend[facility] [place] [facility] [address] [place] [phone] 05/22/2025 9:00 AM EST [facility] Attend[facility] [place] [address] [phone] 05/29/2025 9:00 AM EST [facility] [place] [address] [phone] 05/30/2025 10:00 AM EST [facility] [address] [phone] Bethany Mccabe RN 06/05/2025 9:00 AM EST PACE Attendance/Day Center [facility] PACE Day [address] [phone] 06/10/2025 11:00 AM EST Office Visit [facility] PACE [address] [phone] Michelle Castillo MD [address] [place] [phone] Brigette East LPN 06/12/2025 9:00 AM EST PACE Attendance/Day Center [facility] Day [address] [phone] 06/19/2025 9:00 AM EST PACE Attendance/Day Center [facility] Day [address] [phone] 06/20/2025 10:00 AM EST Clinical Support [address] [phone] Bethany Mccabe RN 06/26/2025 9:00 AM EDT P[facility] Attendance/Day Center [facility] Day [address] [address] 06/27/2025 1:20 PM EDT Office Visit Gastroenterology - [address] [facility] [address] [place] [phone] Analisa Perez, ALONSO [address] [place] [address] 07/03/2025 9:00 AM EDT PACE Attendance/Day Center [facility] PACE Day [address] [phone] 07/10/2025 9:00 AM EDT [place] Att[place] [facility] [place] [facility] [address] [place] [phone] 07/11/2025 10:00 AM EDT Clinical [place] [facility] [place] [address] [phone] Bethany Mccabe RN 07/17/2025 9:00 AM EDT [facility] Att[facility] Day Center [address] [place] [phone] 07/17/2025 3:30 PM EDT PACE External Visit [facility] [address] [phone] 07/24/2025 9:00 AM EDT [facility] [place] [facility] [address] [place] [phone] 07/31/2025 9:00 AM EDT [facility] [place] [facility] [address] [place] [phone] 08/01/2025 10:00 AM EDT Clinical Support [facility] [place] [address] [phone] Bethany Mccabe RN 08/07/2025 9:00 AM EDT [facility] [place] [facility] [address] [place] [phone] 08/14/2025 9:00 AM EDT [facility] [place] [facility] [address] [place] [phone] 08/21/2025 9:00 AM EDT [place] [facility] [place] [address] [place] [phone] 08/22/2025 10:00 AM EDT Clinical [place] [facility] [place] [facility] [facility] [address] [place] [phone] Bethany Mccabe, HEIDI 08/28/2025 9:00 AM EDT [place] Attendance[place] [facility] [place] [facility] [facility] [address] [place] [phone] 09/04/2025 9:00 AM EDT [place] Attendance[place] [facility] [place] [facility] [address] [place] [phone] 09/11/2025 9:00 AM EDT [place] Att[facility] [facility] [place] [facility] [facility] [address] [place] [phone] 09/12/2025 10:00 AM EDT Clinical [facility] [place] [facility] [address] [place] [phone] Bethany Mccabe RN 09/18/2025 9:00 AM EDT [facility] Att[facility] [facility] [place] [facility] [address] [place] [phone] 09/25/2025 9:00 AM EDT [place] Att[facility] [facility] [place] [facility] [facility] [address] [place] [phone] 10/02/2025 9:00 AM EDT [facility] [place] [facility] [address] [place] [phone] 10/03/2025 10:00 AM EDT Clinical Support [facility] [place] [address] [phone] Bethany Mccabe RN 10/09/2025 9:00 AM EDT [facility] Att[place] [facility] [place] [facility] [facility] [address] [place] [phone] 10/24/2025 10:00 AM EDT Clinical Support [facility] [address] [phone] Bethany Mccabe RN 11/14/2025 10:00 AM EDT Clinical Support [facility] [place] [address] [phone] Bethany Mccabe RN 12/05/2025 10:00 AM EDT Clinical Support [facility] [place] [address] [phone] Bethany Mccabe, HEIDI 12/26/2025 10:00 AM EDT Clinical Support [facility] [address] [phone] Bethany Mccabe, HEIDI 01/16/2026 10:00 AM EDT Clinical Support [facility] PACE [address] [phone] Bethany Mccabe RN 02/06/2026 10:00 AM EDT Clinical Support [address] [phone] Bethany Mccabe, HEIDI 02/27/2026 10:00 AM EST Clinical Support [address] [phone] Bethany Mccabe RN documented as of this encounter Visit Diagnoses Not on filedocumented in this encounter Additional Health Concerns Infection Onset Date Last Indicated Resolved Time Gastrointestinal Rule-Out 02/10/2025 02/10/2025 documented as of this encounter Care Teams [employer] Relationship Specialty Start Date End Date Regulo Ivy NP [address] [place] [phone] PCP - General PACE 06/07/24 documented as of this encounter
--- OUTSIDE RECORDS SUMMARY | 2025-02-11 19:40 | XMS_ITS | Encounter Summary ---
Author Organization [facility] Address [address] [place] [address] Care Team Providers Care Auto Technician Mechanic Name Role Phone Regulo Ivy NP Primary Care Provider [phone] Encounter Details Date Type Department Care Team (Late st Contact Info) Description 02/11/2025 PACE Admissions [facility] [address] [place] [address] Justa Leon, RN Social History Tobacco Use Types Packs/Day Years [...] for your loved ones. For example, child protective investigator or elderly care for an older adult? [...] of Assessment Author No 02/03/2025 3:31 PM EDMalachi Downs RN * Are you blind or do you have serious difficulty seeing, even when wearing glasses? Answer Date of Assessment Author Yes 02/03/2025 3:31 PM Malachi Fatima RN * Do you have serious difficulty walking or climbing stairs? Answer Date of Assessment Author Yes 02/03/2025 3:31 PM EDMalachi Downs RN * Do you have serious difficulty [...] [place] [facility] [address] [place] [phone] Carmen Hartmann 02/12/2025 4:30 PM EDT PACE Home Care / P[facility] Home Visit [facility] [place] [facility] [address] [place] [phone] Ashley Eastman 02/13/2025 8:30 AM EDT PACE Home Care / PACE Home Visit [facility] [place] [facility] [address] [place] [phone] Carmen Hartmann 02/13/2025 9:00 AM EDT PACE Attendance/[facility] [place] [facility] [address] [place] [phone] 02/13/2025 4:30 PM EDT PACE Home Care / [facility] [place] [facility] [address] [place] [address] Ashley Eastman 02/14/2025 8:00 AM EDT PACE Home Care / [facility] Visit [facility] [place] [facility] [address] [place] [address] Carmen Hartmann 02/14/2025 9:30 AM EDT PACE Home Care / [facility] Visit [facility] [place] [facility] [address] [place] [phone] Ralph Loyola 02/14/2025 4:30 PM EDT PACE Home Care / [place] Home Visit [facility] [place] [facility] [address] [place] [phone] Ashley Eastman 02/15/2025 8:30 AM EDT PACE Home Care / [place] Home Visit [facility] [place] [facility] [address] [place] [phone] Marysol Diaz 02/15/2025 12:00 PM EDT PACE Home Care / [facility] [facility] Visit [facility] [place] [facility] [address] [place] [phone] Natali Sanford 02/15/2025 5:30 PM EDT PACE Home Care / [place] [facility] Visit [facility] [place] [facility] [address] [place] [phone] Marysol Diaz 02/16/2025 8:30 AM EST P[facility] Home Care / [facility] Visit [facility] [place] [facility] [address] [place] [phone] Marysol iDaz 02/16/2025 12:00 PM EST PACE Home Care / [place] [facility] Visit [facility] [place] [facility] [address] [place] [phone] Juvenal Meghannaisma 02/16/2025 4:30 PM EST PACE Home Care / [facility] Visit [facility] [place] [facility] [address] [place] [phone] Marysol Diaz 02/16/2025 5:30 PM EST PACE Home Care / [facility] Visit [facility] [place] [facility] [address] [place] [phone] Marysol Diaz 02/17/2025 8:30 AM EST PACE Home Care / [facility] Visit [facility] [place] [facility] [address] [place] [phone] Carmen Hartmann 02/17/2025 11:00 AM EST [facility] Visit [facility] [place] [facility] [address] [place] [phone] Michelle Castillo MD [address] [place] [address] 02/17/2025 4:30 PM EST PACE Home Care / [facility] Home Visit [facility] [place] [facility] [address] [place] [phone] Ashley Eastman 02/18/2025 8:30 AM EST PACE Home Care / [facility] Visit [facility] [place] [facility] [address] [place] [phone] Carmen Hartmann 02/18/2025 11:00 AM EST Office Visit [facility] [place] [facility] [address] [place] [address] Michelle Castillo MD [address] [place] [phone] Brigette East LPN 02/18/2025 4:30 PM EST PACE Home Care / [facility] Visit [facility] [place] [facility] [address] [place] [phone] Ashley Eastman 02/19/2025 8:30 AM EST P[facility] Home Care / [facility] Visit [facility] [place] [facility] [address] [place] [address] Carmen Hartmann 02/19/2025 4:30 PM EST PACE Home Care / [facility] Home Visit [facility] [place] [facility] [address] [place] [address] Ashley Eastman 02/20/2025 8:30 AM EST PACE Home Care / [place] Home Visit [facility] [place] [facility] [address] [place] [phone] Carmen Hartmann 02/20/2025 9:00 AM EST [facility] Attend[facility] [place] [facility] [address] [place] [address] 02/20/2025 4:30 PM EST PACE Home Care / [facility] [place] [facility] [address] [place] [phone] Ashley Eastman 02/21/2025 8:00 AM EST P[facility] Home Care / [facility] Visit [facility] [place] [facility] [address] [place] [phone] Carmen Hartmann 02/21/2025 9:30 AM EST PACE Home Care / [facility] Visit [facility] [place] [facility] [address] [place] [phone] Ralph Loyola 02/21/2025 4:30 PM EST PACE Home Care / [facility] [facility] Visit [facility] [place] [facility] [address] [place] [phone] Ashley Eastman 02/22/2025 12:00 PM EST PACE Home Care / [place] [facility] Visit [facility] [place] [facility] [address] [place] [phone] Dena Chavez 02/23/2025 12:00 PM EST PACE Home Care / [place] [facility] Visit [facility] [place] [facility] [address] [place] [phone] Dena Chavez 02/24/2025 8:30 AM EST PACE Home Care / [place] [facility] Visit [facility] [place] [facility] [address] [place] [address] Carmen Hartmann 02/24/2025 4:30 PM EST PACE Home Care / [place] [facility] Visit [facility] [place] [facility] [address] [place] [phone] Ashley Eastman 02/25/2025 8:30 AM EST PACE Home Care / [place] [facility] Visit [facility] [place] [facility] [address] [place] [phone] Carmen Hartmann 02/25/2025 4:30 PM EST PACE Home Care / [place] [facility] Visit [facility] [place] [facility] [address] [place] [phone] Ashley Eastman 02/26/2025 8:30 AM EST PACE Home Care / [place] [facility] Visit [facility] [place] [facility] [address] [place] [phone] Carmen Hartmann 02/26/2025 4:30 PM EST PACE Home Care / [place] [facility] Visit [facility] [place] [facility] [address] [place] [phone] Ashley Eastman 02/27/2025 8:30 AM EST PACE Home Care / [place] [facility] Visit [facility] [place] [facility] [address] [place] [phone] Carmen Hartmann 02/27/2025 9:00 AM EST [facility] [facility] [place] [facility] [address] [place] [address] 02/27/2025 4:30 PM EST PACE Home Care / [place] [facility] [place] [facility] [address] [place] [address] Ashley Eastman 02/28/2025 8:00 AM EST PACE Home Care / [facility] [facility] Visit [facility] [place] [facility] [address] [place] [address] Carmen Hartmann 02/28/2025 9:30 AM EST PACE Home Care / [place] [facility] Visit [facility] [place] [facility] [address] [place] [phone] Ralph Loyola 02/28/2025 4:30 PM EST PACE Home Care / [place] [facility] Visit [facility] [place] [facility] [address] [place] [phone] Ashley Eastman 03/01/2025 8:30 AM EST PACE Home Care / [place] [facility] Visit [facility] [place] [facility] [address] [place] [phone] Marysol Diaz 03/01/2025 12:00 PM EST PACE Home Care / [place] [facility] Visit [facility] [place] [facility] [address] [place] [phone] Natali Sanford 03/01/2025 5:30 PM EST PACE Home Care / [place] [facility] Visit [facility] [place] [facility] [address] [place] [phone] Marysol Diaz 03/02/2025 8:30 AM EST PACE Home Care / [place] [facility] Visit [facility] [place] [facility] [address] [place] [phone] Marysol Diaz 03/02/2025 12:00 PM EST PACE Home Care / [place] [facility] Visit [facility] [place] [facility] [address] [place] [phone] Natali Sanford 03/02/2025 4:30 PM EST PACE Home Care / [place] [facility] Visit [facility] [place] [facility] [address] [place] [phone] Marysol Diaz 03/02/2025 5:30 PM EST PACE Home Care / [place] Home Visit [facility] [place] [facility] [address] [place] [phone] Marysol Daiz 03/03/2025 8:30 AM EST PACE Home Care / [facility] [facility] Visit [facility] [place] [facility] [address] [place] [phone] Carmen Hartmann 03/03/2025 4:30 PM EST PACE Home Care / [place] [facility] Visit [facility] [place] [facility] [address] [place] [phone] Ashley Eastman 03/04/2025 8:30 AM EST PACE Home Care / [place] [facility] Visit [facility] [place] [facility] [address] [place] [phone] Carmen Hartmann 03/04/2025 4:30 PM EST PACE Home Care / [place] [facility] Visit [facility] [place] [facility] [address] [place] [phone] Ashley Eastman 03/05/2025 8:30 AM EST PACE Home Care / [place] [facility] Visit [facility] [place] [facility] [address] [place] [phone] Carmen Hartmann 03/05/2025 4:30 PM EST PACE Home Care / [facility] [facility] Visit [facility] [place] [facility] [address] [place] [phone] Ashley Eastman 03/06/2025 8:30 AM EST PACE Home Care / [facility] Home Visit [facility] [place] [facility] [address] [place] [phone] Carmen Hartmann 03/06/2025 9:00 AM EST [facility] Attendance[facility] [place] [facility] [address] [place] [address] 03/06/2025 4:30 PM EST PACE Home Care / PACE Home Visit [facility] [place] [facility] [address] [place] [address] Ashley Eastman 03/07/2025 Lab [facility] [place] Occupational Therapy [address] [place] [address] Clemencia Napier, OT Schizophrenia in partial remission with history of multiple episodes (CMS/HCC V24, CMS/HCC V28) 03/07/2025 8:00 AM EST PACE Home Care / PACE Home Visit [facility] [place] [facility] [address] [place] [address] Carmen Hartmann 03/07/2025 9:00 AM EST Clinical Support [facility] [place] [facility] [address] [place] [address] Bethany Mccabe RN 03/07/2025 9:30 AM EST PACE Home Care / PACE Home Visit [facility] [place] [facility] [address] [place] [address] Ralph Loyola 03/07/2025 4:30 PM EST PACE Home Care / PACE Home Visit [facility] [place] [facility] [address] [place] [phone] Ashley Eastman 03/08/2025 12:00 PM EST PACE Home Care / P[facility] Home Visit [facility] [place] [facility] [address] [place] [phone] Dena Chavez 03/09/2025 12:00 PM EST PACE Home Care / P[facility] Home Visit [facility] [place] [facility] [address] [place] [phone] Dena Chavez 03/10/2025 8:30 AM EST PACE Home Care / [facility] Visit [facility] [place] [facility] [address] [place] [address] Carmen Hartmann 03/10/2025 4:30 PM EST PACE Home Care / PACE Home Visit [facility] [place] [facility] [address] [place] [address] Ashley Eastman 03/11/2025 8:30 AM EST PACE Home Care / P[facility] Home Visit [facility] [place] [facility] [address] [place] [address] Carmen Hartmann 03/11/2025 4:30 PM EST PACE Home Care / [facility] Home Visit [facility] [place] [facility] [address] [place] [address] Ashley Eastman 03/12/2025 8:30 AM EST PACE Home Care / [facility] Visit [facility] [address] [place] [phone] Carmen Hartmann 03/12/2025 4:30 PM EST PACE Home Care / P[facility] Home Visit [facility] [place] [facility] [address] [place] [address] Ashley Eastman 03/13/2025 8:30 AM EST PACE Home Care / [facility] Visit [facility] [place] [facility] [address] [place] [address] Carmen Hartmann 03/13/2025 9:00 AM EST [facility] Attendance[facility] [place] [facility] [address] [place] [address] 03/13/2025 4:30 PM EST PACE Home Care / [facility] Visit [facility] [place] [facility] [address] [place] [address] Ashley Eastman 03/14/2025 8:00 AM EST PACE Home Care / [facility] Visit [facility] [place] [facility] [address] [place] [address] Carmen Hartmann 03/14/2025 9:30 AM EST PACE Home Care / [facility] Visit [facility] [place] [facility] [address] [place] [address] Ralph Loyola 03/14/2025 4:30 PM EST PACE Home Care / [facility] Visit [facility] [place] [facility] [address] [place] [address] Ashley Eastman 03/15/2025 8:30 AM EST PACE Home Care / [facility] Visit [facility] [place] [facility] [address] [place] [phone] Marysol Diaz 03/15/2025 12:00 PM EST PACE Home Care / [facility] Visit [facility] [place] [facility] [address] [place] [phone] Natali Sanford 03/15/2025 5:30 PM EST PACE Home Care / [facility] Visit [facility] [place] [facility] [address] [place] [phone] Marysol Diaz 03/16/2025 8:30 AM EST PACE Home Care / [facility] Visit [facility] [place] [facility] [address] [place] [phone] Marysol Diaz 03/16/2025 12:00 PM EST PACE Home Care / [facility] Visit [facility] [place] [facility] [address] [place] [phone] Natali Sanford 03/16/2025 4:30 PM EST PACE Home Care / [facility] Visit [facility] [place] [facility] [address] [place] [phone] Marysol Diaz 03/16/2025 5:30 PM EST PACE Home Care / [facility] Visit [facility] [place] [facility] [address] [place] [phone] Marysol Diaz 03/17/2025 8:30 AM EST PACE Home Care / [facility] Home Visit [facility] [address] [place] [phone] Carmen Hartmann 03/17/2025 4:30 PM EST PACE Home Care / P[facility] Home Visit [facility] [place] [facility] [address] [place] [phone] Ashley Eastman 03/18/2025 8:30 AM EST PACE Home Care / P[facility] Home Visit [facility] [place] [facility] [address] [place] [phone] Carmen Hartmann 03/18/2025 11:00 AM EST [facility] Visit [facility] [place] [facility] [address] [place] [phone] Michelle Castillo MD [address] [place] [phone] Brigette East LPN 03/18/2025 4:30 PM EST PACE Home Care / [facility] Home Visit [facility] [address] [place] [phone] Ashley Eastman 03/19/2025 8:30 AM EST PACE Home Care / [facility] Home Visit [facility] [place] [facility] [address] [place] [phone] Carmen Hartmann 03/19/2025 4:30 PM EST PACE Home Care / P[facility] Home Visit [facility] [place] [facility] [address] [place] [phone] Ashley Eastman 03/20/2025 8:30 AM EST PACE Home Care / [facility] Visit [facility] [place] [facility] [address] [place] [phone] Carmen Hartmann 03/20/2025 9:00 AM EST [facility] [place] [facility] [address] [place] [phone] 03/20/2025 4:30 PM EST PACE Home Care / [facility] Visit [facility] [place] [facility] [address] [place] [phone] Ashlye Eastman 03/21/2025 8:00 AM EST PACE Home Care / [facility] Visit [facility] [place] [facility] [address] [place] [phone] Carmen Hartmann 03/21/2025 9:30 AM EST PACE Home Care / [facility] Visit [facility] [place] [facility] [address] [place] [phone] Ralph Loyola 03/21/2025 4:30 PM EST PACE Home Care / [facility] Visit [facility] [place] [facility] [address] [place] [phone] Ashley Eastman 03/22/2025 12:00 PM EST PACE Home Care / [facility] Visit [facility] [place] [facility] [address] [place] [phone] Dena Chavez 03/23/2025 12:00 PM EST PACE Home Care / [facility] Visit [facility] [place] [facility] [address] [place] [phone] Dena Chavez 03/24/2025 8:30 AM EST PACE Home Care / [facility] [facility] Visit [facility] [place] [facility] [address] [place] [phone] Carmen Hartmann 03/24/2025 9:[address] [facility] [address] [place] [address] Lakia Hou, [facility] [employer] 03/24/2025 4:30 PM EST PACE Home Care / P[facility] Home Visit [facility] [address] [place] [address] Ashley Eastman 03/25/2025 8:30 AM EST PACE Home Care / [facility] Visit [facility] [address] [place] [address] Carmen Hartmann 03/25/2025 4:30 PM EST PACE Home Care / P[facility] Visit [facility] [address] [place] [address] Ashley Eastman 03/26/2025 8:30 AM EST PACE Home Care / [facility] Home Visit [facility] [address] [place] [address] Carmen Hartmann 03/26/2025 4:30 PM EST PACE Home Care / P[facility] Home Visit [facility] [address] [place] [phone] Ashley Eastman 03/27/2025 8:30 AM EST PACE Home Care / P[facility] Home Visit [facility] [address] [place] [address] Carmen Hartmann 03/27/2025 9:00 AM EST [facility] Attendance[facility] [place] [facility] [address] [place] [address] 03/27/2025 2:40 PM EST Clinical Support [facility] [place] [address] [place] [address] 03/27/2025 4:30 PM EST PACE Home Care / P[facility] Home Visit [facility] [address] [place] [address] Ashley Eastman 03/28/2025 8:00 AM EST PACE Home Care / [facility] Visit [facility] [address] [place] [address] [place] [address] Carmen Hartmann 03/28/2025 10:00 AM EST Clinical Support [facility] [place] [facility] [address] [place] [address] Bethany Mccabe RN 03/28/2025 4:30 PM EST PACE Home Care / [facility] [place] [facility] [address] [place] [address] Ashley Eastman 03/29/2025 8:30 AM EST PACE Home Care / [facility] [place] [facility] [address] [place] [phone] Marysol Diaz 03/29/2025 12:00 PM EST PACE Home Care / [facility] Visit [facility] [place] [facility] [address] [place] [phone] Natali Sanford 03/29/2025 5:30 PM EST PACE Home Care / [facility] Visit [facility] [place] [facility] [address] [place] [phone] Marysol Diaz 03/30/2025 8:30 AM EST PACE Home Care / [facility] Visit [facility] [place] [facility] [address] [place] [phone] Marysol Diaz 03/30/2025 12:00 PM EST PACE Home Care / [facility] Visit [facility] [place] [facility] [address] [place] [phone] Natali Sanford 03/30/2025 4:30 PM EST PACE Home Care / [facility] Visit [facility] [place] [facility] [address] [place] [phone] Marysol Diaz 03/30/2025 5:30 PM EST PACE Home Care / [facility] Visit [facility] [place] [facility] [address] [place] [phone] Marysol Diaz 03/31/2025 8:30 AM EST PACE Home Care / [facility] [place] [facility] [address] [place] [address] Carmen Hartmann 03/31/2025 4:30 PM EST PACE Home Care / [facility] [place] [facility] [address] [place] [address] Ashley Eastman 04/01/2025 8:30 AM EST PACE Home Care / [facility] [place] [facility] [address] [place] [address] Carmen Hartmann 04/01/2025 1:15 PM EST [facility] Visit [facility] [place] [address] [place] [address] 04/01/2025 4:30 PM EST PACE Home Care / [facility] [place] [facility] [address] [place] [address] Ashley Eastman 04/02/2025 8:30 AM EST PACE Home Care / [facility] [place] [facility] [address] [place] [phone] Camren Hartmann 04/02/2025 4:30 PM EST PACE Home Care / [facility] [place] [facility] [address] [place] [address] Ashley Eastman 04/03/2025 8:30 AM EST PACE Home Care / [facility] [place] [facility] [address] [place] [phone] Carmen Hartmann 04/03/2025 9:00 AM EST [facility] Att[facility] [facility] [place] [facility] [address] [place] [address] 04/03/2025 4:30 PM EST PACE Home Care / [facility] [place] [facility] [address] [place] [address] Aslhey Eastman 04/04/2025 8:00 AM EST PACE Home Care / [facility] [place] [facility] [address] [place] [address] Carmen Hartmann 04/04/2025 9:30 AM EST PACE Home Care / [facility] [place] [facility] [address] [place] [phone] Ralph Loyola 04/04/2025 4:30 PM EST PACE Home Care / [facility] [place] [facility] [address] [place] [phone] Ashley Eastman 04/05/2025 12:00 PM EST PACE Home Care / [facility] [place] [facility] [address] [place] [phone] Dena Chavez 04/06/2025 12:00 PM EST PACE Home Care / [facility] [place] [facility] [address] [place] [phone] Dena Chavez 2025 8:30 AM EST P[facility] Home Care / [facility] [place] [facility] [address] [place] [phone] Carmen Hartmann 2025 4:30 PM EST PACE Home Care / [facility] [facility] [place] [facility] [address] [place] [phone] Ashley Eastman 04/08/2025 8:30 AM EST PACE Home Care / [facility] [place] [facility] [address] [place] [phone] Carmen Hartmann 04/08/2025 4:30 PM EST P[facility] Home Care / [facility] [place] [facility] [address] [place] [address] Ashley Eastman 04/09/2025 8:30 AM EST PACE Home Care / [facility] [place] [facility] [address] [place] [address] Carmen Hartmann 04/09/2025 4:30 PM EST PACE Home Care / [facility] [place] [facility] [address] [place] [address] Ashley Eastman 04/10/2025 8:30 AM EST PACE Home Care / [facility] [place] [facility] [address] [place] [address] Carmen Hartmann 04/10/2025 9:00 AM EST [facility] [facility] [place] [facility] [address] [place] [address] 04/10/2025 4:30 PM EST PACE Home Care / [facility] [place] [facility] [address] [place] [address] Ashley Eastman 04/11/2025 8:00 AM EST P[facility] Home Care / [facility] [place] [facility] [address] [place] [address] Carmen Hartmann 04/11/2025 9:30 AM EST P[facility] Home Care / [facility] [place] [facility] [address] [place] [address] Ralph Loyola 04/11/2025 4:30 PM EST P[facility] Home Care / [facility] [place] [facility] [address] [place] [address] Ashley Eastman 04/12/2025 8:30 AM EST P[facility] Home Care / [facility] [place] [facility] [address] [place] [address] Marysol Diaz 04/12/2025 12:00 PM EST [facility] Home Visit Marsha [facility] [place] [facility] [address] [place] [phone] Natali Sanford 04/12/2025 5:30 PM EST [facility] Visit Marsha ABRAMS [place] [facility] [address] [place] [phone] Marysol Diaz 04/15/2025 11:00 AM EST Office Visit [facility] [facility] [place] [facility] [address] [place] [phone] Michelle Castillo MD [address] [place] [phone] Brigette East LPN 04/17/2025 9:00 AM EST [facility] [place] [facility] [address] [place] [phone] 04/18/2025 10:00 AM EST Clinical Support [place] [place] [facility] [address] [place] [phone] Bethany Mccabe RN 04/24/2025 9:00 AM EST [facility] [address] [place] [phone] 04/24/2025 11:30 AM EST Clinical Support Marsha [facility] [address] [place] [phone] 05/01/2025 9:00 AM EST [facility] [place] [facility] [place] [address] [phone] 05/08/2025 9:00 AM EST [facility] Attendance/Day Center Marsha [facility] [address] [place] [phone] 05/09/2025 10:00 AM EST [facility] [place] [facility] [address] [place] [phone] Bethany Mccabe RN 05/13/2025 11:00 AM EST [facility] [place] [facility] [address] [place] [phone] Michelle Castillo MD [address] [phone] Brigette East LPN 05/15/2025 9:00 AM EST [facility] [place] [facility] [address] [place] [phone] 05/22/2025 9:00 AM EST [facility] [place] [facility] [address] [place] [phone] 05/29/2025 9:00 AM EST [facility] [place] [facility] [address] [phone] 05/30/2025 10:00 AM EST [facility] [place] [facility] [address] [place] [phone] Bethany Mccabe RN 06/05/2025 9:00 AM EST [facility] [place] [facility] [address] [phone] 06/10/2025 11:00 AM EST [facility] [place] [facility] [address] [place] [phone] Michelle Castillo MD [address] [phone] Brigette East LPN 06/12/2025 9:00 AM EST [facility] [place] [facility] [address] [place] [phone] 06/19/2025 9:00 AM EST [facility] [place] [facility] [address] [place] [phone] 06/20/2025 10:00 AM EST [place] [facility] [address] [place] [phone] Bethany Mccabe RN 06/26/2025 9:00 AM EDT [facility] [facility] [address] [place] [phone] 06/27/2025 1:20 PM EDT Office Visit Gastroenterology - [address] [place] [phone] Analisa Perez, ALONSO [address] [place] [phone] 07/03/2025 9:00 AM EDT [facility] [place] [facility] [address] [place] [phone] 07/10/2025 9:00 AM EDT [facility] [facility] [address] [place] [phone] 07/11/2025 10:00 AM EDT Clinical Support [place] [facility] [address] [phone] Bethany Mccabe RN 07/17/2025 9:00 AM EDT [facility] [facility] [place] [address] [phone] 07/17/2025 3:30 PM EDT [facility] External Visit Marsha ABRAMS [address] [phone] 07/24/2025 9:00 AM EDT [facility] [facility] [place] [address] [phone] 07/31/2025 9:00 AM EDT [facility] [facility] [address] [place] [phone] 08/01/2025 10:00 AM EDT Clinical Support [place] [facility] [address] [place] [phone] Bethany Mccabe RN 08/07/2025 9:00 AM EDT [facility] [facility] [address] [place] [phone] 08/14/2025 9:00 AM EDT [facility] Att[facility] [facility] [address] [place] [phone] 08/21/2025 9:00 AM EDT [facility] Att[facility] [facility] [address] [place] [phone] 08/22/2025 10:00 AM EDT Clinical Support [place] [facility] [address] [place] [phone] Bethany Mccabe, HEIDI 08/28/2025 9:00 AM EDT [facility] [facility] [address] [place] [phone] 09/04/2025 9:00 AM EDT [facility] [facility] [address] [place] [phone] 09/11/2025 9:00 AM EDT [facility] [facility] [address] [place] [phone] 09/12/2025 10:00 AM EDT Clinical Support [place] [facility] [address] [place] [phone] Bethany Mccabe, HEIDI 09/18/2025 9:00 AM EDT [facility] [facility] [address] [place] [phone] 09/25/2025 9:00 AM EDT [facility] [facility] [address] [place] [phone] 10/02/2025 9:00 AM EDT [facility] [place] [place] [facility] [address] [place] [phone] 10/03/2025 10:00 AM EDT Clinical [facility] [place] [facility] [address] [phone] Bethany Mccabe RN 10/09/2025 9:00 AM EDT [facility] Day [address] [phone] 10/24/2025 10:00 AM EDT Clinical [facility] [place] [facility] [address] [phone] Bethany Mccabe RN 11/14/2025 10:00 AM EDT Clinical Support [facility] [place] [facility] [address] [phone] Bethany Mccabe RN 12/05/2025 10:00 AM EDT Clinical [facility] [place] [facility] [address] [phone] Bethany Mccabe RN 12/26/2025 10:00 AM EDT Clinical [facility] [place] [facility] [address] [phone] Bethany Mccabe, HEIDI 01/16/2026 10:00 AM EDT [facility] [place] [facility] [address] [phone] Bethany Mccabe RN 02/06/2026 10:00 AM EDT Clinical [facility] [place] [facility] [address] [phone] Bethany Mccabe, HEIDI 02/27/2026 10:00 AM EST [facility] [place] [facility] [address] [phone] Bethany Mccabe RN documented as of this encounter Visit Diagnoses Not on filedocumented in this encounter Additional Health Concerns Infection Onset Date Last Indicated Resolved Time Gastrointestinal Rule-Out 02/10/2025 02/10/2025 documented as of this encounter 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
--- OUTSIDE RECORDS SUMMARY | 2025-02-11 19:41 | XMS_ITS | Encounter Summary ---
Author Organization [facility] Address [address] [place] [address] Care Team Providers Care Gripper Attacher Name Role Phone Regulo Ivy NP Primary Care Provider [phone] Reason for Referral * Consultation (Routine) - Closed Specialty Diagnoses / Procedures Referred By Contac t Referred To Contact Emergency Medicine Diagnoses Mild dementia with anxiety, unspecified dementia type ([facility] V24, [facility] V28) Schizoaffective disorder, bipolar type ([facility] V24, [facility] V28) Paranoia ([facility] V24, [facility] V28) Abnormal urinalysis Regulo Ivy NP [address] [address] Phone: tel: fax: [facility] [address] [place] [address] Phone: tel: Referral ID Status Reason Start Date Expiration Date V isits Requested Visits Authorized [id number] Closed Consult and Treat 02/09/2025 02/11/2025 1 1 * Consultation (Routine) - Authorized Specialty Diagnoses / Procedures Referred By Contac t Referred To Contact Medical Transportation Services Diagnoses Mild dementia with anxiety, unspecified dementia type (CMS/HCC V24, CMS/HCC V28) Schizoaffective disorder, bipolar type (CMS/HCC V24, CMS/HCC V28) Continuous auditory hallucinations Regulo Ivy NP [address] [facility] [address] [place] [address] Phone: tel: fax:[phone] [facility] [address] [place] [address] Phone: tel:[phone] fax:[phone] Referral ID Status Reason Start Date Expiration Date Visits Requested Visits Authorized [id number] Authorized Co-Managemen t of Problem 5 02/11/2026 1 1 Encounter Details Date Type Department Care Team (Late st Contact Info) Description 02/10/2025 PACE Admissions [facility] [address] [place] [phone] Justa Leon, HEIDI Paranoia (CMS/HCC V24, CMS/HCC V28) (Primary Dx); Mild dementia with anxiety, unspecified dementia type (CMS/HCC V24, CMS/HCC V28); Schizoaffective disorder, bipolar type (CMS/HCC V24, CMS/HCC V28); Abnormal urinalysis Social History Tobacco Use Types Packs/Day Years [...] care for your loved ones. For example, teacher early childhood development or elderly care for an older adult? [...] 02/10/2025 8:39 AM Naomy Pa RN * [place] Suicide Severity Rating Scale (Screener/Recent Self-Report) Question [...] Malachi Fatima RN documented in this encounter Progress Notes * Justa Leon RN - 02/10/2025 8:03 AM EDTAddended by: JUSTA LEON on: 02/11/2025 12:21 PM Modules accepted: Orders * Justa Leon RN - 02/10/2025 8:03 AM EDTAddended by: JUSTA LEON on: 02/11/2025 01:06 PM Modules accepted: Orders * Justa Leon RN - 02/10/2025 8:03 AM EDTAddended by: JUSTA LEON on: 02/11/2025 04:31 PM Modules accepted: Orders * Justa Leon RN - 02/10/2025 8:03 AM EDT 02/11/25 Notification received that shahriar is discharging to [facility] as a section-12. Par transferred via [place] ambulance this afternoon. 02/11/25 Par transferred to [facility] ED for paranoid behaviors. She was evaluated by psychiatry on 02/10 and deemed to meet criteria for section 12 due to mental illness so severe that she cannot care for herself in the community. Bed search in process. UA abnormal. Par started Bactrim DS for treatment. No culture results at this time. Will continue to follow. documented in this encounter Plan of Treatment Upcoming Encounters Date Type Department Care Team (Latest Contact Info) Description 02/12/2025 8:30 AM EDT PACE Home Care / [facility] Home Visit [facility] [address] [place] [phone] Carmen Hartmann 02/12/2025 4:30 PM EDT PACE Home Care / P[facility] Home Visit [facility] [address] [place] [phone] Ashley Eastman 02/13/2025 8:30 AM EDT PACE Home Care / PACE Home Visit [facility] [address] [place] [address] Carmen Hartmann 02/13/2025 9:00 AM EDT [facility] Attendance[facility] [place] [facility] [address] [place] [address] 02/13/2025 4:30 PM EDT PACE Home Care / PACE Home Visit [facility] [place] [facility] [address] [place] [address] Ashley Eastman 02/14/2025 8:00 AM EDT PACE Home Care / P[facility] Home Visit [facility] [place] [facility] [address] [place] [phone] Carmen Hartmann 02/14/2025 9:30 AM EDT PACE Home Care / PACE Home Visit [facility] [place] [facility] [address] [place] [phone] Ralph Loyola 02/14/2025 4:30 PM EDT PACE Home Care / PACE Home Visit [facility] [place] [facility] [address] [place] [phone] Ashley Eastman 02/15/2025 8:30 AM EDT PACE Home Care / P[facility] Home Visit [facility] [place] [facility] [address] [place] [phone] Marysol Diaz 02/15/2025 12:00 PM EDT PACE Home Care / [facility] [place] [facility] [address] [place] [phone] Natali Sanford 02/15/2025 5:30 PM EDT PACE Home Care / PACE Home Visit [facility] [place] [facility] [address] [place] [phone] Marysol Diaz 02/16/2025 8:30 AM EST [facility] Home Care / [facility] [place] [facility] [address] [place] [address] Marysol Diaz 02/16/2025 12:00 PM EST PACE Home Care / [facility] [place] [facility] [address] [place] [address] Natali Sanford 02/16/2025 4:30 PM EST PACE Home Care / [facility] [place] [facility] [address] [place] [address] Marysol Diaz 02/16/2025 5:30 PM EST PACE Home Care / [facility] [place] [facility] [address] [place] [phone] Marysol Diaz 02/17/2025 8:30 AM EST PACE Home Care / P[facility] Home Visit [facility] [place] [facility] [address] [place] [phone] Carmen Hartmann 02/17/2025 11:00 AM EST [facility] [place] [facility] [address] [place] [phone] Michelle Castillo MD [address] [place] [address] 02/17/2025 4:30 PM EST PACE Home Care / [facility] [place] [facility] [address] [place] [address] Ashley Eastman 02/18/2025 8:30 AM EST PACE Home Care / [facility] Home [facility] [place] [facility] [address] [place] [phone] Carmen Hartmann 02/18/2025 11:00 AM EST Office Visit [facility] [place] [facility] [address] [place] [address] Michelle Castillo MD [address] [place] [address], [place] [address] Brigette East LPN 02/18/2025 4:30 PM EST PACE Home Care / [facility] [place] [facility] [address] [place] [phone] Ashley Eastman 02/19/2025 8:30 AM EST P[facility] Home Care / [place] [place] [facility] [address] [place] [phone] Carmen Hartmann 02/19/2025 4:30 PM EST PACE Home Care / [place] [facility] [place] [facility] [address] [place] [phone] Ashley Eastman 02/20/2025 8:30 AM EST P[facility] Home Care / [facility] [place] [facility] [address] [place] [phone] Carmen Hartmann 02/20/2025 9:00 AM EST [facility] [facility] [place] [facility] [address] [place] [phone] 02/20/2025 4:30 PM EST PACE Home Care / [place] [facility] [place] [facility] [address] [place] [phone] Ashley Eastman 02/21/2025 8:00 AM EST P[facility] Home Care / [place] [facility] [place] [facility] [address] [place] [phone] Carmen Hartmann 02/21/2025 9:30 AM EST P[facility] Home Care / [place] [facility] [place] [facility] [address] [place] [phone] Ralph Loyola 02/21/2025 4:30 PM EST P[facility] Home Care / [facility] [place] [facility] [address] [place] [address] Ashley Eastman 02/22/2025 12:00 PM EST PACE Home Care / [facility] [place] [facility] [address] [place] [address] Dena Chavez 02/23/2025 12:00 PM EST PACE Home Care / [place] [facility] [place] [facility] [address] [place] [address] Dena Chavez 02/24/2025 8:30 AM EST P[facility] Home Care / [place] [facility] [place] [facility] [address] [place] [phone] Carmen Hartmann 02/24/2025 4:30 PM EST PACE Home Care / [place] [facility] [place] [facility] [address] [place] [phone] Ashley Eastman 02/25/2025 8:30 AM EST PACE Home Care / [place] [facility] [place] [facility] [address] [place] [phone] Carmen Hartmann 02/25/2025 4:30 PM EST PACE Home Care / [place] [facility] [place] [facility] [address] [place] [phone] Ashley Eastman 02/26/2025 8:30 AM EST PACE Home Care / [facility] [place] [facility] [address] [place] [address] Carmen Hartmann 02/26/2025 4:30 PM EST PACE Home Care / [place] [facility] [place] [facility] [address] [place] [phone] Ashley Eastman 02/27/2025 8:30 AM EST P[facility] Home Care / [place] [facility] [place] [facility] [address] [place] [address] Carmen Hartmann 02/27/2025 9:00 AM EST [facility] [facility] [place] [facility] [address] [place] [address] 02/27/2025 4:30 PM EST PACE Home Care / [place] [facility] [place] [facility] [address] [place] [phone] Ashley Eastman 02/28/2025 8:00 AM EST P[facility] Home Care / [place] [facility] [place] [facility] [address] [place] [phone] Carmen Hartmann 02/28/2025 9:30 AM EST PACE Home Care / [place] [facility] [place] [facility] [address] [place] [phone] Ralph Loyola 02/28/2025 4:30 PM EST PACE Home Care / [place] [facility] [place] [facility] [address] [place] [phone] Ashley Eastman 03/01/2025 8:30 AM EST P[facility] Home Care / [place] [facility] [place] [facility] [address] [place] [phone] Marysol Diaz 03/01/2025 12:00 PM EST PACE Home Care / [place] [facility] [place] [facility] [address] [place] [phone] Natali Sanford 03/01/2025 5:30 PM EST PACE Home Care / [place] [facility] [place] [facility] [address] [place] [phone] Marysol Diaz 03/02/2025 8:30 AM EST PACE Home Care / [place] [facility] [place] [facility] [address] [place] [phone] Marysol Diaz 03/02/2025 12:00 PM EST PACE Home Care / [place] [facility] [place] [facility] [address] [place] [phone] Natali Sanford 03/02/2025 4:30 PM EST PACE Home Care / [facility] [facility] [place] [facility] [address] [place] [phone] Marysol Diaz 03/02/2025 5:30 PM EST PACE Home Care / [facility] [place] [facility] [address] [place] [phone] Marysol Diaz 03/03/2025 8:30 AM EST PACE Home Care / [facility] [place] [facility] [address] [place] [phone] Carmen Hartmann 03/03/2025 4:30 PM EST PACE Home Care / [facility] [facility] [place] [facility] [address] [place] [phone] Ashley Eastman 03/04/2025 8:30 AM EST PACE Home Care / [facility] [facility] [place] [facility] [address] [place] [phone] Carmen Hartmann 03/04/2025 4:30 PM EST PACE Home Care / [facility] [facility] Visit [facility] [place] [facility] [address] [place] [phone] Ashley Eastman 03/05/2025 8:30 AM EST P[facility] Home Care / [facility] [place] [facility] [address] [place] [phone] Carmen Hartmann 03/05/2025 4:30 PM EST PACE Home Care / [facility] Visit [facility] [place] [facility] [address] [place] [phone] Ashley Eastmna 03/06/2025 8:30 AM EST PACE Home Care / PACE Home Visit [facility] [address] [place] [phone] Carmen Hartmann 03/06/2025 9:00 AM EST [facility] Attendance[facility] [place] [facility] [address] [place] [address] 03/06/2025 4:30 PM EST PACE Home Care / PACE Home Visit [facility] [place] [facility] [address] [place] [phone] Ashley Eastman 03/07/2025 Lab [facility] [place] Occupational Therapy [address] [place] [phone] Clemencia Napier, OT Schizophrenia in partial remission with history of multiple episodes (CMS/HCC V24, CMS/HCC V28) 03/07/2025 8:00 AM EST PACE Home Care / PACE Home Visit [facility] [place] [facility] [address] [place] [phone] Carmen Hartmann 03/07/2025 9:00 AM EST Clinical Support [facility] [place] [facility] [address] [place] [phone] Bethany Mccabe RN 03/07/2025 9:30 AM EST PACE Home Care / PACE Home Visit [facility] [place] [facility] [address] [place] [phone] Ralph Loyola 03/07/2025 4:30 PM EST PACE Home Care / P[facility] Home Visit [facility] [place] [facility] [address] [place] [phone] Ashley Eastman 03/08/2025 12:00 PM EST PACE Home Care / P[facility] Home Visit [facility] [place] [facility] [address] [place] [phone] Dena Chavez 03/09/2025 12:00 PM EST PACE Home Care / [facility] [place] [facility] [address] [place] [phone] Dena Chavez 03/10/2025 8:30 AM EST PACE Home Care / [facility] Visit [facility] [place] [facility] [address] [place] [phone] Carmen Hartmann 03/10/2025 4:30 PM EST PACE Home Care / [facility] [place] [facility] [address] [place] [phone] Ashley Eastman 03/11/2025 8:30 AM EST PACE Home Care / [facility] Visit [facility] [place] [facility] [address] [place] [phone] Carmen Hartmann 03/11/2025 4:30 PM EST PACE Home Care / [facility] Visit [facility] [place] [facility] [address] [place] [phone] Ashley Eastman 03/12/2025 8:30 AM EST PACE Home Care / [facility] Visit [facility] [place] [facility] [address] [place] [phone] Carmen Hartmann 03/12/2025 4:30 PM EST PACE Home Care / [facility] [place] [facility] [address] [place] [phone] Ashley Eastman 03/13/2025 8:30 AM EST PACE Home Care / [facility] [place] [facility] [address] [place] [phone] Carmen Hartmann 03/13/2025 9:00 AM EST [facility] Attendance[facility] [place] [facility] [address] [place] [address] 03/13/2025 4:30 PM EST PACE Home Care / [facility] [place] [facility] [address] [place] [address] Ashley Eastman 03/14/2025 8:00 AM EST P[facility] Home Care / [facility] [place] [facility] [address] [place] [address] Carmen Hartmann 03/14/2025 9:30 AM EST P[facility] Home Care / [facility] [place] [facility] [address] [place] [address] Ralph Loyola 03/14/2025 4:30 PM EST P[facility] Home Care / [facility] [place] [facility] [address] [place] [address] Ashley Eastman 03/15/2025 8:30 AM EST PACE Home Care / [facility] [place] [facility] [address] [place] [phone] Marysol Diaz 03/15/2025 12:00 PM EST PACE Home Care / [facility] [place] [facility] [address] [place] [phone] Natali Sanford 03/15/2025 5:30 PM EST PACE Home Care / [facility] [place] [facility] [address] [place] [phone] Marysol Diaz 03/16/2025 8:30 AM EST PACE Home Care / [facility] [place] [facility] [address] [place] [phone] Marysol Diaz 03/16/2025 12:00 PM EST PACE Home Care / [facility] Visit [facility] [place] [facility] [address] [place] [phone] Natali Sanford 03/16/2025 4:30 PM EST PACE Home Care / [facility] [place] [facility] [address] [place] [phone] Marysol Diaz 03/16/2025 5:30 PM EST P[facility] Home Care / [facility] Visit [facility] [place] [facility] [address] [place] [phone] Marysol Diaz 03/17/2025 8:30 AM EST PACE Home Care / [facility] [place] [facility] [address] [place] [phone] Carmen Hartmann 03/17/2025 4:30 PM EST P[facility] Home Care / [facility] [place] [facility] [address] [place] [phone] Ashley Eastman 03/18/2025 8:30 AM EST P[facility] Home Care / [facility] Visit [facility] [place] [facility] [address] [place] [phone] Carmen Hartmann 03/18/2025 11:00 AM EST [facility] Visit [facility] [place] [facility] [address] [place] [phone] Michelle Castillo MD [address] [place] [phone] Brigette East LPN 03/18/2025 4:30 PM EST PACE Home Care / [facility] Visit [facility] [place] [facility] [address] [place] [phone] Ashley Eastman 03/19/2025 8:30 AM EST P[facility] Home Care / [facility] [place] [facility] [address] [place] [phone] Carmen Hartmann 03/19/2025 4:30 PM EST PACE Home Care / [facility] [place] [facility] [address] [place] [address] [place] [address] Ashley Eastman 03/20/2025 8:30 AM EST PACE Home Care / [facility] [place] [facility] [address] [place] [address] Carmen Hartmann 03/20/2025 9:00 AM EST [facility] [facility] [place] [facility] [address] [place] [address] 03/20/2025 4:30 PM EST PACE Home Care / [facility] [place] [facility] [address] [place] [address] Ashley Eastman 03/21/2025 8:00 AM EST PACE Home Care / [facility] [place] [facility] [address] [place] [phone] Carmen Hartmann 03/21/2025 9:30 AM EST P[facility] Home Care / [facility] [place] [facility] [address] [place] [phone] Ralph Loyola 03/21/2025 4:30 PM EST PACE Home Care / [facility] [place] [facility] [address] [place] [phone] Ashley Eastman 03/22/2025 12:00 PM EST PACE Home Care / [facility] [place] [facility] [address] [place] [phone] Dena Chavez 03/23/2025 12:00 PM EST P[facility] Home Care / [facility] [place] [facility] [address] [place] [phone] Dena Chavez 03/24/2025 8:30 AM EST PACE Home Care / [facility] [place] [facility] [address] [place] [phone] Cramen Hartmann 03/24/2025 9:45 AM EST Appointment [facility] [address] [place] [address] Lakia Hou, CCC-[employer]OOKER 03/24/2025 4:30 PM EST PACE Home Care / [facility] [place] [facility] [address] [place] [phone] Ashley Eastman 03/25/2025 8:30 AM EST PACE Home Care / [facility] Visit [facility] [address] [place] [phone] Carmen Hartmann 03/25/2025 4:30 PM EST PACE Home Care / [facility] Home Visit [facility] [place] [facility] [address] [place] [phone] Ashley Eastman 03/26/2025 8:30 AM EST PACE Home Care / P[facility] Home Visit [facility] [place] [facility] [address] [place] [phone] Carmen Hartmann 03/26/2025 4:30 PM EST PACE Home Care / [facility] [place] [facility] [address] [place] [phone] Ashley Eastman 03/27/2025 8:30 AM EST PACE Home Care / [facility] Visit [facility] [place] [facility] [address] [place] [phone] Carmen Hartmann 03/27/2025 9:00 AM EST [facility] Att[facility] [facility] [place] [facility] [address] [place] [address] 03/27/2025 2:40 PM EST Clinical Support [facility] [place] [address] [place] [address] 03/27/2025 4:30 PM EST PACE Home Care / [facility] Home Visit [facility] [address] [place] [address] Ashley Eastman 03/28/2025 8:00 AM EST PACE Home Care / [facility] Visit [facility] [place] [facility] [address] [place] [address] Carmen Hartmann 03/28/2025 10:00 AM EST Clinical Support [facility] [place] [facility] [address] [place] [address] Bethany Mccabe RN 03/28/2025 4:30 PM EST PACE Home Care / [facility] Visit [facility] [place] [facility] [address] [place] [address] Ashley Eastman 03/29/2025 8:30 AM EST PACE Home Care / [facility] [place] [facility] [address] [place] [address] Marysol Diaz 03/29/2025 12:00 PM EST PACE Home Care / [facility] Visit [facility] [address] [place] [phone] Natali Sanford 03/29/2025 5:30 PM EST PACE Home Care / [facility] Visit [facility] [place] [facility] [address] [place] [address] Marysol Diaz 03/30/2025 8:30 AM EST PACE Home Care / [facility] Home Visit [facility] [address] [place] [phone] Marysol Diaz 03/30/2025 12:00 PM EST PACE Home Care / [facility] Visit [facility] [address] [place] [address] Natali Sanford 03/30/2025 4:30 PM EST PACE Home Care / [facility] Visit [facility] [address] [place] [phone] Marysol Diaz 03/30/2025 5:30 PM EST P[facility] Home Care / [facility] [place] [facility] [address] [place] [phone] Marysol Diaz 03/31/2025 8:30 AM EST P[facility] Home Care / [facility] [place] [facility] [address] [place] [phone] Carmen Hartmann 03/31/2025 4:30 PM EST P[facility] Home Care / [facility] [place] [facility] [address] [place] [phone] Ashley Eastman 04/01/2025 8:30 AM EST P[facility] Home Care / [facility] [place] [facility] [address] [place] [phone] Carmen Hartmann 04/01/2025 1:15 PM EST [facility] External Visit [facility] [place] [address] [place] [phone] 04/01/2025 4:30 PM EST P[facility] Home Care / [facility] [place] [facility] [address] [place] [phone] Ashley Eastman 04/02/2025 8:30 AM EST PACE Home Care / PACE [facility] [address] [place] [phone] Carmen Hartmann 04/02/2025 4:30 PM EST [facility] Home [facility] / [facility] [place] [facility] [address] [place] [phone] Ashley Eastman 04/03/2025 8:30 AM EST [facility] Home [facility] / [facility] [facility] [place] [facility] [place] [facility] [address] [place] [phone] Carmen Hartmann 04/03/2025 9:00 AM EST [facility] Att[place] [facility] [place] [facility] [address] [place] [phone] 04/03/2025 4:30 PM EST [facility] Home [facility] / [facility] [place] [facility] [place] [facility] [address] [place] [phone] Ashley Eastman 04/04/2025 8:00 AM EST [facility] Home [facility] / [place] [facility] [place] [facility] [place] [facility] [address] [place] [phone] Carmen Hartmann 04/04/2025 9:30 AM EST [facility] Home [facility] / [place] [facility] [place] [facility] [place] [facility] [address] [place] [phone] Ralph Loyola 04/04/2025 4:30 PM EST [facility] Home [facility] / [place] [facility] [place] [facility] [place] [facility] [address] [place] [phone] Ashley Eastman 04/05/2025 12:00 PM EST [facility] Home [facility] / [place] [facility] [place] [facility] [place] [facility] [address] [place] [phone] Dena Chavez 04/06/2025 12:00 PM EST [facility] Home [facility] / [place] [facility] [place] [facility] [place] [facility] [address] [place] [phone] Dena Chavez 2025 8:30 AM EST [facility] Home [facility] / [place] [facility] [place] [facility] [place] [facility] [address] [place] [phone] Carmen Hartmann 2025 4:30 PM EST [facility] Home [facility] / [place] [facility] [place] [facility] [place] [facility] [address] [place] [phone] Ashley Eastman 04/08/2025 8:30 AM EST [facility] Home [facility] / [facility] [facility] [place] [facility] [place] [facility] [address] [place] [address] Carmen Hartmann 04/08/2025 4:30 PM EST [facility] Home [facility] / [place] [facility] [place] [facility] [place] [facility] [address] [place] [address] Ashley Eastman 04/09/2025 8:30 AM EST [facility] Home [facility] / [place] [facility] [place] [facility] [place] [facility] [address] [place] [address] Carmen Hartmann 04/09/2025 4:30 PM EST [facility] Home [facility] / [place] [facility] [place] [facility] [address] [place] [phone] Ashley Eastman 04/10/2025 8:30 AM EST [facility] Home [facility] / [place] [facility] [place] [facility] [address] [place] [address] Carmen Hartmann 04/10/2025 9:00 AM EST [facility] [facility] [place] [facility] [address] [place] [phone] 04/10/2025 4:30 PM EST [facility] Home [facility] / [place] [facility] [place] [facility] [address] [place] [address] Ashley Eastman 04/11/2025 8:00 AM EST [facility] Home [facility] / [place] [facility] [place] [facility] [address] [place] [phone] Carmen Hartmann 04/11/2025 9:30 AM EST [facility] Home [facility] / [place] [facility] [place] [facility] [address] [place] [phone] Ralph Loyola 04/11/2025 4:30 PM EST [facility] Home [facility] / [place] [facility] [place] [facility] [place] [facility] [address] [place] [phone] Ashley Eatsman 04/12/2025 8:30 AM EST [facility] Home [facility] / [facility] [address] [place] [phone] Marysol Diaz 04/12/2025 12:00 PM EST [facility] Home [facility] / [facility] [address] [place] [phone] Natali Sanford 04/12/2025 5:30 PM EST [facility] Home [facility] / [facility] [address] [place] [phone] Marysol Diaz 04/15/2025 11:00 AM EST [facility] Visit [facility] [address] [place] [phone] Michelle Castillo MD [address] [place] [phone] Brigette East LPN 04/17/2025 9:00 AM EST P[facility] Attendance/[facility] [address] [place] [phone] 04/18/2025 10:00 AM EST [facility] Support [facility] [address] [place] [phone] Bethany Mccabe RN 04/24/2025 9:00 AM EST [facility] [place] [facility] [address] [place] [phone] 04/24/2025 11:30 AM EST [facility] Support [facility] [address] [place] [phone] 05/01/2025 9:00 AM EST [facility] Att[facility] [address] [place] [phone] 05/08/2025 9:00 AM EST [facility] Attendance[facility] [address] [place] [phone] 05/09/2025 10:00 AM EST Clinical Support [facility] [address] [phone] Bethany Mccabe RN 05/13/2025 11:00 AM EST Office Visit [facility] [address] [phone] Michelle Castillo MD [address] [place] [phone] Brigette East LPN 05/15/2025 9:00 AM EST [facility] Attendance[facility] [address] [place] [phone] 05/22/2025 9:00 AM EST [facility] Attendance[facility] [address] [place] [phone] 05/29/2025 9:00 AM EST [facility] Att[facility] [address] [place] [phone] 05/30/2025 10:00 AM EST Clinical Support [facility] [address] [phone] Bethany Mccabe RN 06/05/2025 9:00 AM EST [facility] Att[facility] [address] [place] [phone] 06/10/2025 11:00 AM EST [facility] Visit [facility] [address] [phone] Michelle Castillo MD [address] [address] Brigette East LPN 06/12/2025 9:00 AM EST PACE Attendance/Day Center [facility] [address] [place] [phone] 06/19/2025 9:00 AM EST PACE Attendance/Day Center [facility] [address] [place] [phone] 06/20/2025 10:00 AM EST Clinical Support [facility] [address] [place] [phone] Bethany Mccabe, HEIDI 06/26/2025 9:00 AM EDT PACE Attendance/Day Center [facility] Day [address] [phone] 06/27/2025 1:20 PM EDT Office Visit Gastroenterology - [address] [place] [phone] Analisa Perez, SENIOR PLANNING MANAGER [address] [place] [address] 07/03/2025 9:00 AM EDT P[facility] Attendance/Day Center [facility] Day [address] [phone] 07/10/2025 9:00 AM EDT PACE Attendance/Day Center [facility] Day [address] [phone] 07/11/2025 10:00 AM EDT Clinical Support [address] [phone] Bethany Mccabe, HEIDI 07/17/2025 9:00 AM EDT PACE Attendance/Day Center [facility] Day [address] [address] 07/17/2025 3:30 PM EDT PACE External Visit [address] [address] 07/24/2025 9:00 AM EDT [facility] [facility] [place] [facility] [address] [place] [address] 07/31/2025 9:00 AM EDT [facility] [place] [facility] [address] [place] [phone] 08/01/2025 10:00 AM EDT [facility] [place] [facility] [address] [place] [phone] Bethany Mccabe RN 08/07/2025 9:00 AM EDT [facility] [place] [facility] [address] [place] [phone] 08/14/2025 9:00 AM EDT [facility] [address] [place] [phone] 08/21/2025 9:00 AM EDT [facility] [place] [facility] [address] [place] [phone] 08/22/2025 10:00 AM EDT [facility] [address] [place] [phone] Bethany Mccabe RN 08/28/2025 9:00 AM EDT [facility] [address] [place] [phone] 09/04/2025 9:00 AM EDT [facility] [place] [facility] [address] [place] [phone] 09/11/2025 9:00 AM EDT [facility] [place] [facility] [address] [place] [phone] 09/12/2025 10:00 AM EDT [facility] [place] [facility] [address] [place] [phone] Bethany Mccabe RN 09/18/2025 9:00 AM EDT [facility] [facility] [place] [facility] [address] [place] [phone] 09/25/2025 9:00 AM EDT [facility] [facility] [place] [facility] [address] [place] [phone] 10/02/2025 9:00 AM EDT [facility] [facility] [place] [facility] [address] [place] [phone] 10/03/2025 10:00 AM EDT [facility] [place] [facility] [address] [place] [phone] Bethany Mccabe RN 10/09/2025 9:00 AM EDT [facility] [place] [facility] [address] [place] [phone] 10/24/2025 10:00 AM EDT Clinical Support [facility] [place] [facility] [address] [place] [phone] Bethany Mccabe, HEIDI 11/14/2025 10:00 AM EDT Clinical [facility] [place] [facility] [address] [place] [phone] Bethany Mccabe RN 12/05/2025 10:00 AM EDT [facility] [place] [facility] [address] [place] [phone] Bethany Mccabe RN 12/26/2025 10:00 AM EDT [facility] [place] [facility] [place] [facility] [address] [place] [phone] Bethany Mccabe, RN 01/16/2026 10:00 AM EDT Clinical [place] [facility] [place] [facility] [address] [place] [phone] Bethany Mccabe RN 02/06/2026 10:00 AM EDT Clinical [place] [facility] [place] [facility] [address] [place] [phone] Bethany Mccabe RN 02/27/2026 10:00 AM [facility] Clinical Support [facility] [address] [place] [address] Bethany Mccabe RN Scheduled Referrals Name Type Priority Associated Diagnoses Order Schedule PACE General Authorization Request Outpatient Referral Routine Mild dementia with anxiety, unspecified dementia type ([facility] V24, [facility] V28) Schizoaffective disorder, bipolar type ([facility] V24, [facility] V28) Ordered: 02/11/2025 PACE Admisssion Outpatient Referral Routine Mild dementia with anxiety, unspecified dementia type ([facility] V24, [facility] V28) Schizoaffective disorder, bipolar type ([facility] V24, [facility] V28) Paranoia ([facility] V24, [facility] V28) Abnormal urinalysis Ordered: 02/11/2025 documented as of this encounter Visit Diagnoses Diagnosis Paranoia ([facility] V24, [facility] V28)- Primary Delusional disorder Mild dementia with anxiety, unspecified dementia type ([facility] V24, [facility] V28) Schizoaffective disorder, bipolar type ([facility] V24, [facility] V28) Schizoaffective disorder, unspecified condition Abnormal urinalysis Other nonspecific finding on examination of urine Schizophrenia in partial remission with history of multiple episodes ([facility] V24, [facility] V28) documented in this encounter Additional Health Concerns Infection Onset Date Last Indicated Resolved Time Gastrointestinal Rule-Out 02/10/2025 02/10/2025 documented as of this encounter Care Teams Gripper 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
--- OUTSIDE RECORDS SUMMARY | 2025-02-11 19:42 | XMS_ITS | Encounter Summary ---
Author Organization [facility] Address [address] [place] [address] Care Team Providers Care Camp Recreation Specialist Name Role Phone Regulo Ivy NP Primary Care Provider [phone] Encounter Details Date Type Department Care Team (Late st Contact Info) Description 02/07/2025 [facility] [address] [place] [phone] Regulo Ivy NP [address] [id number] Constipation, unspecified constipation type Social History Tobacco Use Types Packs/Day Years [...] care for your loved ones. 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 [...] 02/10/2025 8:39 AM Naomy Pa RN * [place] Suicide Severity Rating Scale (Screener/Recent Self-Report) Question Answer Date of Assessment Author 1. Wish to be (Past 1 Month) No 8:39 AM Naomy Pa RN 2. Non-Specific [...] [facility] [address] [place] [address] Carmen Hartmann 02/12/2025 4:30 PM EDT PACE Home Care / PACE Home Visit [facility] [place] [facility] [address] [place] [address] Ashley Eastman 02/13/2025 8:30 AM EDT PACE Home Care / PACE Home Visit [facility] [place] [facility] [address] [place] [address] Carmen Hartmann 02/13/2025 9:00 AM EDT PACE Attendance/[facility] [place] [facility] [address] [place] [address] 02/13/2025 4:30 PM EDT PACE Home Care / PACE Home Visit [facility] [address] [place] [address] Ashley Eastman 02/14/2025 8:00 AM EDT PACE Home Care / PACE Home Visit [facility] [address] [place] [address] Carmen Hartmann 02/14/2025 9:30 AM EDT PACE Home Care / PACE Home Visit [facility] [place] [facility] [address] [place] [address] Ralph Loyola 02/14/2025 4:30 PM EDT PACE Home Care / PACE Home Visit [facility] [place] [facility] [address] [place] [address] Ashley Eastman 02/15/2025 8:30 AM EDT PACE Home Care / PACE Home Visit [facility] [place] [facility] [address] [place] [phone] Marysol Diaz 02/15/2025 12:00 PM EDT PACE Home Care / P[facility] Home Visit [facility] [place] [facility] [address] [place] [phone] Natali Sanford 02/15/2025 5:30 PM EDT PACE Home Care / PACE Home Visit [facility] [place] [facility] [address] [place] [phone] Marysol Diaz 02/16/2025 8:30 AM EST PACE Home Care / P[facility] Home Visit [facility] [place] [facility] [address] [place] [phone] Marysol Diaz 02/16/2025 12:00 PM EST PACE Home Care / PACE Home Visit [facility] [place] [facility] [address] [place] [phone] Natali Sanford 02/16/2025 4:30 PM EST PACE Home Care / PACE Home Visit [facility] [place] [facility] [address] [place] [phone] Marysol Diaz 02/16/2025 5:30 PM EST PACE Home Care / PACE Home Visit [facility] [place] [facility] [address] [place] [phone] Marysol Diaz 02/17/2025 8:30 AM EST PACE Home Care / PACE Home Visit [facility] [place] [facility] [address] [place] [phone] Carmen Hartmann 02/17/2025 11:00 AM EST [facility] Visit [facility] [place] [facility] [address] [place] [phone] Michelle Castillo MD [address] [place] [address] 02/17/2025 4:30 PM EST PACE Home Care / PACE Home Visit [facility] [place] [facility] [address] [place] [address] Ashley Eastman 02/18/2025 8:30 AM EST PACE Home Care / PACE Home Visit [facility] [place] [facility] [address] [place] [phone] Carmen Hartamnn 02/18/2025 11:00 AM EST Office [facility] [place] [facility] [address] [place] [phone] Michelle Castillo MD [address] [address] Brigette East LPN 02/18/2025 4:30 PM EST PACE Home Care / PACE Home Visit [facility] [place] [facility] [address] [place] [phone] Ashley Eastman 02/19/2025 8:30 AM EST PACE Home Care / PACE Home Visit [facility] [place] [facility] [address] [place] [phone] Carmen Hartmann 02/19/2025 4:30 PM EST PACE Home Care / PACE Home Visit [facility] [place] [facility] [address] [place] [phone] Ashley Eastman 02/20/2025 8:30 AM EST PACE Home Care / PACE Home Visit [facility] [place] [facility] [address] [place] [phone] Carmen Hartmann 02/20/2025 9:00 AM EST PACE Attendance[facility] [place] [facility] [address] [place] [phone] 02/20/2025 4:30 PM EST PACE Home Care / [facility] [place] [facility] [address] [place] [phone] Ashley Eastman 02/21/2025 8:00 AM EST P[facility] Home Care / [facility] [place] [facility] [address] [place] [address] Carmen Hartmann 02/21/2025 9:30 AM EST PACE Home Care / [facility] [place] [facility] [address] [place] [address] Ralph Loyola 02/21/2025 4:30 PM EST PACE Home Care / [facility] Visit [facility] [place] [facility] [address] [place] [phone] Ashley Eastman 02/22/2025 12:00 PM EST PACE Home Care / [facility] Visit [facility] [place] [facility] [address] [place] [phone] Dena Chavez 02/23/2025 12:00 PM EST PACE Home Care / [facility] Visit [facility] [place] [facility] [address] [place] [phone] Dena Chavez 02/24/2025 8:30 AM EST PACE Home Care / [facility] [place] [facility] [address] [place] [phone] Carmen Hartmann 02/24/2025 4:30 PM EST PACE Home Care / [facility] Visit [facility] [place] [facility] [address] [place] [phone] Ashley Eastman 02/25/2025 8:30 AM EST PACE Home Care / [facility] Visit [facility] [place] [facility] [address] [place] [phone] Carmen Hartmann 02/25/2025 4:30 PM EST PACE Home Care / [facility] Visit [facility] [place] [facility] [address] [place] [phone] Ashley Eastman 02/26/2025 8:30 AM EST PACE Home Care / [facility] [place] [facility] [address] [place] [address] Carmen Hartmann 02/26/2025 4:30 PM EST PACE Home Care / [facility] [place] [facility] [address] [place] [address] Ashley Eastman 02/27/2025 8:30 AM EST PACE Home Care / [facility] [place] [facility] [address] [place] [address] Carmen Hartmann 02/27/2025 9:00 AM EST [facility] [place] [facility] [address] [place] [address] 02/27/2025 4:30 PM EST PACE Home Care / [facility] [place] [facility] [address] [place] [address] Ashley Eastman 02/28/2025 8:00 AM EST PACE Home Care / [facility] [place] [facility] [address] [place] [address] Carmen Hartmann 02/28/2025 9:30 AM EST PACE Home Care / [facility] [place] [facility] [address] [place] [address] Ralph Loyola 02/28/2025 4:30 PM EST PACE Home Care / [facility] [place] [facility] [address] [place] [address] Ashley Eastman 03/01/2025 8:30 AM EST PACE Home Care / [facility] [place] [facility] [address] [place] [address] Marysol Diaz 03/01/2025 12:00 PM EST PACE Home Care / [facility] Visit [facility] [place] [facility] [address] [place] [address] Natali Sanford 03/01/2025 5:30 PM EST PACE Home Care / [facility] Visit [facility] [place] [facility] [address] [place] [phone] [facility] 03/02/2025 8:30 AM EST PACE Home Care / [facility] Visit [facility] [place] [facility] [address] [place] [phone] [facility] 03/02/2025 12:00 PM EST PACE Home Care / [facility] Visit [facility] [place] [facility] [address] [place] [phone] Natali Sanford 03/02/2025 4:30 PM EST PACE Home Care / [facility] Visit [facility] [place] [facility] [address] [place] [phone] [facility] 03/02/2025 5:30 PM EST PACE Home Care / [facility] Visit [facility] [place] [facility] [address] [place] [phone] [facility] 03/03/2025 8:30 AM EST PACE Home Care / [facility] Visit [facility] [place] [facility] [address] [place] [phone] Carmen Hartmann 03/03/2025 4:30 PM EST PACE Home Care / [facility] Visit [facility] [place] [facility] [address] [place] [phone] Ashley Eastman 03/04/2025 8:30 AM EST PACE Home Care / [facility] Visit [facility] [place] [facility] [address] [place] [phone] Carmen Hartmann 03/04/2025 4:30 PM EST PACE Home Care / [facility] Visit [facility] [place] [facility] [address] [place] [address] Ashley Eastman 03/05/2025 8:30 AM EST PACE Home Care / PACE Home Visit [facility] [place] [facility] [address] [place] [address] Carmen Hartmann 03/05/2025 4:30 PM EST PACE Home Care / PACE Home Visit [facility] [place] [facility] [address] [place] [address] Ashley Eastman 03/06/2025 8:30 AM EST PACE Home Care / PACE Home Visit [facility] [place] [facility] [address] [place] [phone] Carmen Hartmann 03/06/2025 9:00 AM EST PACE Attendance/[facility] [address] [place] [address] 03/06/2025 4:30 PM EST PACE Home Care / PACE Home Visit [facility] [address] [place] [phone] Ashley Eastman 03/07/2025 Lab [facility] [address] [place] [phone] Clemencia Napier, OT Schizophrenia in partial remission with history of multiple episodes (CMS/HCC V24, CMS/HCC V28) 03/07/2025 8:00 AM EST PACE Home Care / PACE Home Visit [facility] [address] [place] [phone] Carmen Hartmann 03/07/2025 9:00 AM EST Clinical Support [facility] [address] [place] [address] Bethany Mccabe RN 03/07/2025 9:30 AM EST PACE Home Care / PACE Home Visit [facility] [address] [place] [phone] Ralph Loyola 03/07/2025 4:30 PM EST PACE Home Care / [facility] [place] [facility] [address] [place] [phone] Ashley Eastman 03/08/2025 12:00 PM EST PACE Home Care / [facility] Visit [facility] [place] [facility] [address] [place] [phone] Dena Chavez 03/09/2025 12:00 PM EST PACE Home Care / [facility] Visit [facility] [place] [facility] [address] [place] [phone] Dena Chavez 03/10/2025 8:30 AM EST PACE Home Care / [facility] Visit [facility] [place] [facility] [address] [place] [phone] Carmen Hartmann 03/10/2025 4:30 PM EST PACE Home Care / [facility] Visit [facility] [place] [facility] [address] [place] [phone] Ashley Eastman 03/11/2025 8:30 AM EST PACE Home Care / [facility] Visit [facility] [place] [facility] [address] [place] [phone] Carmen Hartmann 03/11/2025 4:30 PM EST PACE Home Care / [facility] [place] [facility] [address] [place] [phone] Ashley Eastman 03/12/2025 8:30 AM EST PACE Home Care / [facility] [place] [facility] [address] [place] [phone] Carmen Hartmann 03/12/2025 4:30 PM EST PACE Home Care / [facility] [place] [facility] [address] [place] [phone] Ashley Eastman 03/13/2025 8:30 AM EST PACE Home Care / [facility] [place] [facility] [address] [place] [address] Carmen Hartmann 03/13/2025 9:00 AM EST [facility] [place] [facility] [address] [place] [address] 03/13/2025 4:30 PM EST PACE Home Care / [facility] [place] [facility] [address] [place] [phone] Ashley Eastman 03/14/2025 8:00 AM EST PACE Home Care / [facility] [place] [facility] [address] [place] [phone] Carmen Hartmann 03/14/2025 9:30 AM EST PACE Home Care / [facility] [place] [facility] [address] [place] [phone] Ralph Loyola 03/14/2025 4:30 PM EST PACE Home Care / [facility] Visit [facility] [place] [facility] [address] [place] [phone] Ashley Eastman 03/15/2025 8:30 AM EST PACE Home Care / [facility] Visit [facility] [place] [facility] [address] [place] [phone] Marysol Diaz 03/15/2025 12:00 PM EST PACE Home Care / [facility] [place] [facility] [address] [place] [phone] Natali Sanford 03/15/2025 5:30 PM EST PACE Home Care / [facility] [place] [facility] [address] [place] [phone] Marysol Diaz 03/16/2025 8:30 AM EST PACE Home Care / [facility] [place] [facility] [address] [place] [phone] Marysol Diaz 03/16/2025 12:00 PM EST PACE Home Care / [facility] [place] [facility] [address] [place] [phone] Natali Sanford 03/16/2025 4:30 PM EST PACE Home Care / [facility] [place] [facility] [address] [place] [phone] aMrysol Diaz 03/16/2025 5:30 PM EST PACE Home Care / [facility] [place] [facility] [address] [place] [phone] Marysol Diaz 03/17/2025 8:30 AM EST PACE Home Care / [facility] [place] [facility] [address] [place] [phone] Carmen Hartmann 03/17/2025 4:30 PM EST PACE Home Care / [facility] [place] [facility] [address] [place] [phone] Ashley Eastman 03/18/2025 8:30 AM EST PACE Home Care / [facility] [place] [facility] [address] [place] [phone] Carmen Hartmann 03/18/2025 11:00 AM EST [facility] Visit [facility] [place] [facility] [address] [place] [phone] Michelle Castillo MD [address] [place] [address] Brigette East LPN 03/18/2025 4:30 PM EST PACE Home Care / [facility] [place] [facility] [address] [place] [address] Ashley Eastman 03/19/2025 8:30 AM EST PACE Home Care / P[facility] Home Visit [facility] [address] [place] [address] Carmen Hartmann 03/19/2025 4:30 PM EST PACE Home Care / [facility] [address] [place] [address] Ashley Eastman 03/20/2025 8:30 AM EST PACE Home Care / [facility] [place] [facility] [address] [place] [address] Carmen Hartmann 03/20/2025 9:00 AM EST [facility] Attendance[facility] [place] [facility] [address] [place] [address] 03/20/2025 4:30 PM EST PACE Home Care / PACE Home Visit [facility] [address] [place] [address] Ashley Eastman 03/21/2025 8:00 AM EST PACE Home Care / [facility] [place] [facility] [address] [place] [address] Carmen Hartmann 03/21/2025 9:30 AM EST PACE Home Care / [facility] Visit [facility] [place] [facility] [address] [place] [address] Ralph Loyola 03/21/2025 4:30 PM EST PACE Home Care / [facility] [place] [facility] [address] [place] [address] Ashley Eastman 03/22/2025 12:00 PM EST PACE Home Care / [facility] Visit [facility] [place] [facility] [address] [place] [phone] Dena Chavez 03/23/2025 12:00 PM EST PACE Home Care / [facility] Visit [facility] [place] [facility] [address] [place] [phone] Dena Chavez 03/24/2025 8:30 AM EST PACE Home Care / [facility] [place] [facility] [address] [place] [phone] Carmen Hartmann 03/24/2025 9:45 AM EST Appointment [facility] [address] [place] [address] Lakia Hou, [facility]ET[facility] TECHNICIAN 03/24/2025 4:30 PM EST PACE Home Care / [facility] [place] [facility] [address] [place] [phone] Ashley Eastman 03/25/2025 8:30 AM EST PACE Home Care / [facility] [place] [facility] [address] [place] [phone] Carmen Hartmann 03/25/2025 4:30 PM EST PACE Home Care / [facility] [place] [facility] [address] [place] [phone] Ashley Eastman 03/26/2025 8:30 AM EST PACE Home Care / [facility] [place] [facility] [address] [place] [phone] Carmen Hartmann 03/26/2025 4:30 PM EST PACE Home Care / [facility] [place] [facility] [address] [place] [phone] Ashley Eastman 03/27/2025 8:30 AM EST PACE Home Care / [facility] [place] [facility] [address] [place] [address], [place] [address] Carmen Hartmann 03/27/2025 9:00 AM EST PACE Attendance[facility] [place] [facility] [address] [place] [address] 03/27/2025 2:40 PM EST Clinical Support [facility] [place] [address] [place] [address] 03/27/2025 4:30 PM EST PACE Home Care / PACE Home Visit [facility] [address] [place] [address] Ashley Eastman 03/28/2025 8:00 AM EST PACE Home Care / P[facility] Home Visit [facility] [address] [place] [address] Carmen Hartmann 03/28/2025 10:00 AM EST Clinical Support [facility] [address] [place] [address] Bethany Mccabe RN 03/28/2025 4:30 PM EST PACE Home Care / P[facility] Home Visit [facility] [address] [place] [address] Ashley Eastman 03/29/2025 8:30 AM EST PACE Home Care / P[facility] Visit [facility] [address] [place] [phone] Marysol Diaz 03/29/2025 12:00 PM EST PACE Home Care / P[facility] Home Visit [facility] [address] [place] [phone] Natali Sanford 03/29/2025 5:30 PM EST PACE Home Care / [facility] [address] [place] [phone] Marysol Diaz 03/30/2025 8:30 AM EST PACE Home Care / [facility] [place] [facility] [address] [place] [address] Marysol Diaz 03/30/2025 12:00 PM EST PACE Home Care / [facility] [place] [facility] [address] [place] [address] Natali Sanford 03/30/2025 4:30 PM EST PACE Home Care / [facility] [place] [facility] [address] [place] [phone] Marysol Diaz 03/30/2025 5:30 PM EST PACE Home Care / [facility] [place] [facility] [address] [place] [phone] Marysol Diaz 03/31/2025 8:30 AM EST PACE Home Care / [facility] [place] [facility] [address] [place] [phone] Carmen Hartmann 03/31/2025 4:30 PM EST PACE Home Care / [facility] [place] [facility] [address] [place] [phone] Ashley Eastman 04/01/2025 8:30 AM EST PACE Home Care / [facility] [place] [facility] [address] [place] [phone] Carmen Hartmann 04/01/2025 1:15 PM EST PACE [facility] Visit [facility] [place] [address] [place] [phone] 04/01/2025 4:30 PM EST PACE Home Care / [facility] [place] [facility] [address] [place] [phone] Ashley Eastman 04/02/2025 8:30 AM EST PACE Home Care / [facility] [place] [facility] [address] [place] [phone] Carmen Hartmann 04/02/2025 4:30 PM EST PACE Home Care / [facility] [place] [facility] [address] [place] [address] Ashley Eastman 04/03/2025 8:30 AM EST PACE Home Care / [facility] [place] [facility] [address] [place] [address] Carmen Hartmann 04/03/2025 9:00 AM EST [facility] Attend[facility] [place] [facility] [address] [place] [address] 04/03/2025 4:30 PM EST PACE Home Care / [facility] [place] [facility] [address] [place] [phone] Ashley Eastman 04/04/2025 8:00 AM EST PACE Home Care / [facility] [place] [facility] [address] [place] [phone] Carmen Hartmann 04/04/2025 9:30 AM EST PACE Home Care / [facility] [place] [facility] [address] [place] [phone] Ralph Loyola 04/04/2025 4:30 PM EST PACE Home Care / [facility] [place] [facility] [address] [place] [phone] Ashley Eastman 04/05/2025 12:00 PM EST PACE Home Care / [facility] [place] [facility] [address] [place] [phone] Dena Chavez 04/06/2025 12:00 PM EST PACE Home Care / [facility] [place] [facility] [address] [place] [phone] Dena Chavez 2025 8:30 AM EST PACE Home Care / [facility] [place] [facility] [address] [place] [address] Carmen Hartmann 2025 4:30 PM EST PACE Home Care / [facility] [place] [facility] [address] [place] [address] Ashley Eastman 04/08/2025 8:30 AM EST PACE Home Care / [facility] [place] [facility] [address] [place] [address] Carmen Hartmann 04/08/2025 4:30 PM EST PACE Home Care / [facility] [place] [facility] [address] [place] [phone] Ashley Eastman 04/09/2025 8:30 AM EST PACE Home Care / [facility] [place] [facility] [address] [place] [phone] Carmen Hartmann 04/09/2025 4:30 PM EST PACE Home Care / [facility] [place] [facility] [address] [place] [phone] Ashley Eastman 04/10/2025 8:30 AM EST P[facility] Home Care / [facility] [place] [facility] [address] [place] [address] Carmen Hartmann 04/10/2025 9:00 AM EST [facility] [place] [facility] [address] [place] [address] 04/10/2025 4:30 PM EST PACE Home Care / [facility] [place] [facility] [address] [place] [phone] Ashley Eastman 04/11/2025 8:00 AM EST PACE Home Care / [facility] [place] [facility] [address] [place] [phone] Carmen Hartmann 04/11/2025 9:30 AM EST PACE Home Care / [facility] [place] [facility] [address] [place] [phone] Ralph Loyola 04/11/2025 4:30 PM EST PACE Home Care / [facility] Visit [facility] [place] [facility] [address] [place] [phone] Ashley Eastman 04/12/2025 8:30 AM EST PACE Home Care / [facility] [place] [facility] [address] [place] [phone] Marysol Diaz 04/12/2025 12:00 PM EST PACE Home Care / [facility] [place] [facility] Services [address] [place] [phone] Natali Sanford 04/12/2025 5:30 PM EST [facility] / [facility] Home Visit Marsha ABRAMS [facility] [address] [place] [phone] Marysol Diaz 04/15/2025 11:00 AM EST Office Visit [facility] [place] [facility] [address] [place] [phone] Michelle Castillo MD [address] [place] [phone] Brigette East LPN 04/17/2025 9:00 AM EST [facility] Attend[facility] [place] [facility] [address] [place] [address] 04/18/2025 10:00 AM EST Clinical Support [facility] [place] [facility] [address] [place] [phone] Bethany Mccabe RN 04/24/2025 9:00 AM EST [facility] [place] [facility] [address] [place] [phone] 04/24/2025 11:30 AM EST [facility] [address] [address] 05/01/2025 9:00 AM EST PACE Attendance/Day Center [facility] PACE Day [address] [address] 05/08/2025 9:00 AM EST PACE Attendance/Day Center [facility] PACE Day [address] [address] 05/09/2025 10:00 AM EST Clinical Support [facility] PACE [address] [phone] Bethany Mccabe RN 05/13/2025 11:00 AM EST Office Visit [facility] PACE [address] [phone] Michelle Castillo MD [address] [place] [phone] Brigette East LPN 05/15/2025 9:00 AM EST PACE Attendance/Day Center [facility] PACE Day [address] [address] 05/22/2025 9:00 AM EST [facility] Attendance[facility] P[facility] Day [address] [address] 05/29/2025 9:00 AM EST [facility] Attendance[facility] P[facility] Day [address] [address] 05/30/2025 10:00 AM EST Clinical Support [facility]ACE [address] [phone] Bethany Mccbae RN 06/05/2025 9:00 AM EST [facility] Attendance[facility] Day Center [address] [place] [phone] 06/10/2025 11:00 AM EST Office Visit [facility] PACE [address] [phone] Michelle Castillo MD [address] [place] [address] Brigette East LPN 06/12/2025 9:00 AM EST PACE Attendance/Day Center [facility] Day [address] [address] 06/19/2025 9:00 AM EST PACE Attendance/Day Center [facility] Day [address] [address] 06/20/2025 10:00 AM EST Clinical Support [facility] PACE [address] [phone] Bethany Mccabe RN 06/26/2025 9:00 AM EDT [facility] Day [address] [address] 06/27/2025 1:20 PM EDT Office Visit Gastroenterology - [address] [phone] Analisa Perez, ALONSO [address] [place] [phone] 07/03/2025 9:00 AM EDT [facility] Attendance[facility] P[facility] Day [address] [address] 07/10/2025 9:00 AM EDT PACE Attendance/Day Center [facility] PACE Day [address] [address] 07/11/2025 10:00 AM EDT Clinical Support [facility] Clinic [address] [place] [address] Bethany Mccabe RN 07/17/2025 9:00 AM EDT [facility] Attendance[facility] [facility] [place] [facility] [address] [place] [address] 07/17/2025 3:30 PM EDT [facility] [address] [address] 07/24/2025 9:00 AM EDT [facility] Att[facility]ance[facility] [place] [facility] [address] [place] [address] 07/31/2025 9:00 AM EDT [facility] [place] [facility] [address] [place] [address] 08/01/2025 10:00 AM EDT Clinical Support [facility] [place] [facility] [address] [place] [address] Bethany Mccabe RN 08/07/2025 9:00 AM EDT [facility] [place] [facility] [address] [place] [phone] 08/14/2025 9:00 AM EDT [facility] Attendance[facility] [place] [facility] [address] [place] [address] 08/21/2025 9:00 AM EDT [facility] Attendance[facility] [facility] [place] [facility] [address] [place] [address] 08/22/2025 10:00 AM EDT Clinical Support [facility] [place] [facility] [address] [place] [address] Bethany Mccabe RN 08/28/2025 9:00 AM EDT [facility] Attendance[facility] [place] [facility] [address] [place] [address] 09/04/2025 9:00 AM EDT [facility] Attendance[facility] [place] [facility] [address] [place] [phone] 09/11/2025 9:00 AM EDT PACE Attendance/[place] [facility] [place] [facility] [address] [place] [phone] 09/12/2025 10:00 AM EDT Clinical Support Mars[facility]BR[facility] [place] [facility] [address] [address] Bethany Mccabe, HEIDI 09/18/2025 9:00 AM EDT [facility] [place] [facility] [address] [place] [phone] 09/25/2025 9:00 AM EDT [facility] Attendance[facility] [facility] [place] [facility] [address] [place] [phone] 10/02/2025 9:00 AM EDT PACE Attendance/Day [place] [facility] [place] [facility] Day [address] [address] 10/03/2025 10:00 AM EDT Clinical Support Marsha ABRAMS [place] [facility] [address] [address] Bethany Mccabe RN 10/09/2025 9:00 AM EDT PACE Attendance/Day Center [facility] [place] [facility] Day [address] [address] 10/24/2025 10:00 AM EDT Clinical Support Marsha ABRAMS [place] [facility] [address] [address] Bethany Mccabe, HEIDI 11/14/2025 10:00 AM EDT Clinical Support [facility] [address] [place] [phone] Bethany Mccabe, HEIDI 12/05/2025 10:00 AM EDT Clinical Support [facility] [address] [phone] Bethany Mccabe, RN 12/26/2025 10:00 AM EDT Clinical Support [address] [address] Bethany Mccabe, HEIDI 01/16/2026 10:00 AM EDT Clinical Support [address] [address] Bethany Mccabe, HEIDI 02/06/2026 10:00 AM EDT Clinical Support [address] [address] Bethany Mccabe RN 02/27/2026 10:00 AM EST Clinical Support [address] [address] Bethany Mccabe, RN documented as of this encounter Visit Diagnoses Diagnosis Constipation, unspecified constipation type 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
--- OUTSIDE RECORDS SUMMARY | 2025-02-11 19:42 | XMS_ITS | Encounter Summary ---
Author Organization [facility] Address [address] [place] [address] Care Team Providers Care Loom Checker Name Role Phone Regulo Ivy NP Primary Care Provider [phone] Encounter Details Date Type Department Care Team (Late st Contact Info) Description 02/07/2025 Lab [facility] Occupational Therapy [address] [place] [address] Clemencia Napier, ADITYA Schizophrenia in partial remission with history of multiple episodes (CMS/HCC V24, CMS/HCC V28) Social History Tobacco [...] for your loved ones. For example, child support specialist or elderly care for an older [...] 8:39 AM PARMINDERT Naomy Masterson RN * [place] Suicide Severity Rating Scale (Screener/Recent Self-Report) Question Answer Date of Assessment Author 1. Wish to be (Past 1 Month) No 025 8:39 AM PARMINDERT Naomy Masterson RN 2. Non-Specific Active Suici [...] [facility] [address] [place] [address] Carmen Hartmann 02/12/2025 4:30 PM EDT PACE Home Care / P[facility] Home Visit [facility] [place] [facility] [address] [place] [address] Ashley Eastman 02/13/2025 8:30 AM EDT PACE Home Care / PACE Home Visit [facility] [place] [facility] [address] [place] [address] Carmen Hartmann 02/13/2025 9:00 AM EDT PACE Attendance/[facility] [place] [facility] [address] [place] [address] 02/13/2025 4:30 PM EDT PACE Home Care / PACE Home Visit [facility] [place] [facility] [address] [place] [address] Ashley Eastman 02/14/2025 8:00 AM EDT PACE Home Care / PACE Home Visit [facility] [place] [facility] [address] [place] [phone] Carmen Hartmann 02/14/2025 9:30 AM EDT PACE Home Care / PACE Home Visit [facility] [place] [facility] [address] [place] [address] Ralph Loyola 02/14/2025 4:30 PM EDT PACE Home Care / PACE Home Visit [facility] [place] [facility] [address] [place] [phone] Ashley Eastman 02/15/2025 8:30 AM EDT PACE Home Care / PACE Home Visit [facility] [place] [facility] [address] [place] [address] Marysol Diaz 02/15/2025 12:00 PM EDT PACE Home Care / [facility] Visit [facility] [place] [facility] [address] [place] [address] Natali Sanford 02/15/2025 5:30 PM EDT PACE Home Care / [facility] Home Visit [facility] [place] [facility] [address] [place] [phone] [facility] 02/16/2025 8:30 AM EST PACE Home Care / [facility] Home Visit [facility] [place] [facility] [address] [place] [phone] [facility] 02/16/2025 12:00 PM EST PACE Home Care / [facility] Home Visit [facility] [place] [facility] [address] [place] [phone] Natali Sanford 02/16/2025 4:30 PM EST PACE Home Care / [facility] Home Visit [facility] [place] [facility] [address] [place] [phone] [facility] 02/16/2025 5:30 PM EST PACE Home Care / [facility] Home Visit [facility] [place] [facility] [address] [place] [phone] [facility] 02/17/2025 8:30 AM EST PACE Home Care / [facility] Visit [facility] [place] [facility] [address] [place] [phone] Carmen Hartmann 02/17/2025 11:00 AM EST Office Visit [facility] [place] [facility] [address] [place] [phone] Michelle Castillo MD [address] [place] [address] 02/17/2025 4:30 PM EST PACE Home Care / [facility] Home Visit [facility] [place] [facility] [address] [place] [phone] Ashley Eastman 02/18/2025 8:30 AM EST PACE Home Care / [facility] Home Visit [facility] [place] [facility] [address] [place] [phone] Carmen Hartmann 02/18/2025 11:00 AM EST Office Visit [facility] [place] [facility] [address] [place] [address] Michelle Castillo MD [address] [address] Brigette East LPN 02/18/2025 4:30 PM EST PACE Home Care / [facility] Home Visit [facility] [place] [facility] [address] [place] [phone] Ashley Eastman 02/19/2025 8:30 AM EST PACE Home Care / [facility] Home Visit [facility] [place] [facility] [address] [place] [phone] Carmen Hartmann 02/19/2025 4:30 PM EST PACE Home Care / [facility] Home Visit [facility] [place] [facility] [address] [place] [phone] Ashley Eastman 02/20/2025 8:30 AM EST PACE Home Care / [facility] Home Visit [facility] [place] [facility] [address] [place] [phone] Carmen Hartmann 02/20/2025 9:00 AM EST [facility] [facility] [place] [facility] [address] [place] [address] 02/20/2025 4:30 PM EST PACE Home Care / [facility] Home Visit [facility] [place] [facility] [address] [place] [phone] Ashley Eastman 02/21/2025 8:00 AM EST PACE Home Care / [facility] Home Visit [facility] [place] [facility] [address] [place] [phone] Carmen Hartmann 02/21/2025 9:30 AM EST PACE Home Care / [facility] Home Visit [facility] [place] [facility] [address] [place] [address] Ralph Loyola 02/21/2025 4:30 PM EST PACE Home Care / [facility] Home Visit [facility] [place] [facility] [address] [place] [address] Ashley Eastman 02/22/2025 12:00 PM EST PACE Home Care / [facility] Home Visit [facility] [place] [facility] [address] [place] [address] Dena Chavez 02/23/2025 12:00 PM EST PACE Home Care / [facility] Home Visit [facility] [place] [facility] [address] [place] [phone] Dena Chavez 02/24/2025 8:30 AM EST PACE Home Care / [facility] Home Visit [facility] [place] [facility] [address] [place] [address] Carmen Hartmann 02/24/2025 4:30 PM EST PACE Home Care / [facility] Home Visit [facility] [place] [facility] [address] [place] [phone] Ashley Eastman 02/25/2025 8:30 AM EST PACE Home Care / [facility] Home Visit [facility] [place] [facility] [address] [place] [address] Carmen Hartmann 02/25/2025 4:30 PM EST PACE Home Care / [facility] Home Visit [facility] [place] [facility] [address] [place] [phone] Ashley Eastman 02/26/2025 8:30 AM EST PACE Home Care / [facility] Home Visit [facility] [place] [facility] [address] [place] [address] [place] [phone] Carmen Hartmann 02/26/2025 4:30 PM EST PACE Home Care / [facility] Home Visit [facility] [place] [facility] [address] [place] [address] Ashley Eastman 02/27/2025 8:30 AM EST PACE Home Care / [facility] Visit [facility] [place] [facility] [address] [place] [address] Carmen Hartmann 02/27/2025 9:00 AM EST [facility] Att[facility] [place] [facility] [address] [place] [address] 02/27/2025 4:30 PM EST PACE Home Care / [facility] Home Visit [facility] [place] [facility] [address] [place] [phone] Ashley Eastman 02/28/2025 8:00 AM EST PACE Home Care / [facility] Visit [facility] [place] [facility] [address] [place] [phone] Carmen Hartmann 02/28/2025 9:30 AM EST PACE Home Care / [facility] Home Visit [facility] [place] [facility] [address] [place] [phone] Ralph Loyola 02/28/2025 4:30 PM EST PACE Home Care / [facility] Home Visit [facility] [place] [facility] [address] [place] [phone] Ashley Eastman 03/01/2025 8:30 AM EST PACE Home Care / [facility] Home Visit [facility] [place] [facility] [address] [place] [phone] Marysol Diaz 03/01/2025 12:00 PM EST PACE Home Care / [facility] Home Visit [facility] [place] [facility] [address] [place] [phone] Natali Sanford 03/01/2025 5:30 PM EST PACE Home Care / [facility] Home Visit [facility] [place] [facility] [address] [place] [phone] Marysol Diaz 03/02/2025 8:30 AM EST PACE Home Care / [facility] Home Visit [facility] [place] [facility] [address] [place] [phone] Marysol Diaz 03/02/2025 12:00 PM EST PACE Home Care / [facility] Home Visit [facility] [place] [facility] [address] [place] [phone] Natali Sanford 03/02/2025 4:30 PM EST PACE Home Care / [facility] Home Visit [facility] [place] [facility] [address] [place] [phone] Joe Marysol 03/02/2025 5:30 PM EST PACE Home Care / [facility] Home Visit [facility] [place] [facility] [address] [place] [phone] [facility] Marysol 03/03/2025 8:30 AM EST PACE Home Care / [facility] Home Visit [facility] [place] [facility] [address] [place] [phone] Carmen Hartmann 03/03/2025 4:30 PM EST PACE Home Care / [facility] Home Visit [facility] [place] [facility] [address] [place] [phone] Ashley Eastman 03/04/2025 8:30 AM EST PACE Home Care / [facility] Home Visit [facility] [place] [facility] [address] [place] [phone] Carmen Hartmann 03/04/2025 4:30 PM EST PACE Home Care / [facility] Home Visit [facility] [place] [facility] [address] [place] [phone] Ashley Eastman 03/05/2025 8:30 AM EST PACE Home Care / PACE Home Visit [facility] [address] [place] [phone] Carmen Hartmann 03/05/2025 4:30 PM EST PACE Home Care / PACE Home Visit [facility] [place] [facility] [address] [place] [address] Ashley Eastman 03/06/2025 8:30 AM EST PACE Home Care / PACE Home Visit [facility] [place] [facility] [address] [place] [phone] Carmen Hartmann 03/06/2025 9:00 AM EST [facility] Attendance[facility] [place] [facility] [address] [place] [phone] 03/06/2025 4:30 PM EST PACE Home Care / PACE Home Visit [facility] [address] [place] [phone] Ashley Eastman 03/07/2025 Lab [facility] [place] Occupational Therapy [address] [place] [phone] Clemencia Napier, OT Schizophrenia in partial remission with history of multiple episodes (CMS/HCC V24, CMS/HCC V28) 03/07/2025 8:00 AM EST PACE Home Care / PACE Home Visit [facility] [address] [place] [address] Carmen Hartmann 03/07/2025 9:00 AM EST Clinical Support [facility] [place] [facility] [address] [place] [address] Bethany Mccabe, HEIDI 03/07/2025 9:30 AM EST PACE Home Care / PACE Home Visit [facility] [address] [place] [phone] Ralph Loyola 03/07/2025 4:30 PM EST PACE Home Care / [facility] Visit [facility] [place] [facility] [address] [place] [phone] Ashley Eastman 03/08/2025 12:00 PM EST PACE Home Care / [facility] Home Visit [facility] [place] [facility] [address] [place] [phone] Dena Chavez 03/09/2025 12:00 PM EST PACE Home Care / [facility] Home Visit [facility] [place] [facility] [address] [place] [phone] Dena Chavez 03/10/2025 8:30 AM EST PACE Home Care / [facility] Home Visit [facility] [place] [facility] [address] [place] [phone] Carmen Hartmann 03/10/2025 4:30 PM EST PACE Home Care / [facility] Home Visit [facility] [place] [facility] [address] [place] [phone] Ashley Eastman 03/11/2025 8:30 AM EST PACE Home Care / [facility] Home Visit [facility] [place] [facility] [address] [place] [phone] Carmen Hartmann 03/11/2025 4:30 PM EST PACE Home Care / [facility] Home Visit [facility] [place] [facility] [address] [place] [phone] Ashley Eastman 03/12/2025 8:30 AM EST PACE Home Care / [facility] Home Visit [facility] [place] [facility] [address] [place] [phone] Carmen Hartmann 03/12/2025 4:30 PM EST PACE Home Care / [facility] Home Visit [facility] [place] [facility] [address] [place] [phone] Ashley Han 03/13/2025 8:30 AM EST PACE Home Care / [facility] Home Visit [facility] [place] [facility] [address] [place] [address] Carmen Hartmann 03/13/2025 9:00 AM EST [facility] Att[facility] [place] [facility] [address] [place] [address] 03/13/2025 4:30 PM EST PACE Home Care / [facility] Home Visit [facility] [place] [facility] [address] [place] [phone] Ashley Eastman 03/14/2025 8:00 AM EST PACE Home Care / [facility] Home Visit [facility] [place] [facility] [address] [place] [phone] Carmen Hartmann 03/14/2025 9:30 AM EST PACE Home Care / [facility] Home Visit [facility] [place] [facility] [address] [place] [phone] Ralph Loyola 03/14/2025 4:30 PM EST PACE Home Care / [facility] Home Visit [facility] [place] [facility] [address] [place] [phone] Ashley Eastman 03/15/2025 8:30 AM EST PACE Home Care / [facility] Home Visit [facility] [place] [facility] [address] [place] [phone] Marysol Diaz 03/15/2025 12:00 PM EST PACE Home Care / [facility] Home Visit [facility] [place] [facility] [address] [place] [phone] Natali Sanford 03/15/2025 5:30 PM EST PACE Home Care / [facility] Home Visit [facility] [place] [facility] [address] [place] [phone] Marysol Diaz 03/16/2025 8:30 AM EST PACE Home Care / [facility] Home Visit [facility] [place] [facility] [address] [place] [phone] Marysol Diaz 03/16/2025 12:00 PM EST PACE Home Care / [facility] Visit [facility] [place] [facility] [address] [place] [address] Natali Sanford 03/16/2025 4:30 PM EST PACE Home Care / [facility] Home Visit [facility] [place] [facility] [address] [place] [phone] Marysol Diaz 03/16/2025 5:30 PM EST PACE Home Care / [facility] Home Visit [facility] [place] [facility] [address] [place] [phone] Marysol Diaz 03/17/2025 8:30 AM EST PACE Home Care / [facility] Home Visit [facility] [place] [facility] [address] [place] [phone] Carmen Hartmann 03/17/2025 4:30 PM EST PACE Home Care / [facility] Visit [facility] [place] [facility] [address] [place] [phone] Ashley Eastman 03/18/2025 8:30 AM EST PACE Home Care / [facility] Home Visit [facility] [place] [facility] [address] [place] [phone] Carmen Hartmann 03/18/2025 11:00 AM EST Office Visit [facility] [place] [facility] [address] [place] [phone] Michelle Castillo MD [address] [place] [address] Brigette East LPN 03/18/2025 4:30 PM EST PACE Home Care / [facility] Visit [facility] [place] [facility] [address] [place] [phone] Ashley Eastman 03/19/2025 8:30 AM EST PACE Home Care / [facility] Visit [facility] [place] [facility] [address] [place] [address] Carmen Hartmann 03/19/2025 4:30 PM EST PACE Home Care / [facility] Home Visit [facility] [place] [facility] [address] [place] [address] Ashley Eastman 03/20/2025 8:30 AM EST PACE Home Care / [facility] Home Visit [facility] [place] [facility] [address] [place] [address] Carmen Hartmann 03/20/2025 9:00 AM EST [facility] Att[facility] [place] [facility] [address] [place] [address] 03/20/2025 4:30 PM EST PACE Home Care / [facility] Visit [facility] [place] [facility] [address] [place] [address] Ashley Eastman 03/21/2025 8:00 AM EST PACE Home Care / [facility] Home Visit [facility] [place] [facility] [address] [place] [address] Carmen Hartmann 03/21/2025 9:30 AM EST P[facility] Home Care / [facility] Home Visit [facility] [place] [facility] [address] [place] [address] Ralph Loyola 03/21/2025 4:30 PM EST PACE Home Care / [facility] Visit [facility] [place] [facility] [address] [place] [address] Ashley Eastman 03/22/2025 12:00 PM EST PACE Home Care / [facility] Visit [facility] [place] [facility] [address] [place] [phone] Dena Chavez 03/23/2025 12:00 PM EST PACE Home Care / [facility] Visit [facility] [place] [facility] [address] [place] [phone] Dena Chavez 03/24/2025 8:30 AM EST PACE Home Care / [facility] Visit [facility] [place] [facility] [address] [place] [phone] Carmen Hartmann 03/24/2025 9:45 AM EST Appointment [facility] [address] [place] [address] Lakia Hou, [facility] 03/24/2025 4:30 PM EST PACE Home Care / [facility] Visit [facility] [place] [facility] [address] [place] [phone] Ashley Eastman 03/25/2025 8:30 AM EST PACE Home Care / [facility] Visit [facility] [place] [facility] [address] [place] [phone] Carmen Hartmann 03/25/2025 4:30 PM EST P[facility] Home Care / [facility] Visit [facility] [place] [facility] [address] [place] [phone] Ashley Eastman 03/26/2025 8:30 AM EST P[facility] Home Care / [facility] Visit [facility] [place] [facility] [address] [place] [phone] Carmen Hartmann 03/26/2025 4:30 PM EST PACE Home Care / [facility] Visit [facility] [place] [facility] [address] [place] [phone] Ashley Eastman 03/27/2025 8:30 AM EST P[facility] Home Care / [facility] Visit [facility] [place] [facility] [address] [place] [phone] Carmen Hartmann 03/27/2025 9:00 AM EST [facility] Att[facility] [place] [facility] [address] [place] [address] 03/27/2025 2:40 PM EST Clinical Support [facility] [place] [address] [place] [address] 03/27/2025 4:30 PM EST PACE Home Care / PACE Home Visit [facility] [address] [place] [address] Ashley Eastman 03/28/2025 8:00 AM EST P[facility] Home Care / P[facility] Home Visit [facility] [address] [place] [address] Carmen Hartmann 03/28/2025 10:00 AM EST Clinical Support [facility] [place] [facility] [address] [place] [address] Bethany Mccabe RN 03/28/2025 4:30 PM EST PACE Home Care / P[facility] Home Visit [facility] [address] [place] [phone] Ashley Eastman 03/29/2025 8:30 AM EST PACE Home Care / P[facility] Visit [facility] [address] [place] [phone] Marysol Diaz 03/29/2025 12:00 PM EST PACE Home Care / [facility] Visit [facility] [place] [facility] [address] [place] [phone] Natali Sanford 03/29/2025 5:30 PM EST PACE Home Care / [facility] Visit [facility] [place] [facility] [address] [place] [phone] Marysol Diaz 03/30/2025 8:30 AM EST PACE Home Care / [facility] Home Visit [facility] [place] [facility] [address] [place] [address] [place] [address] Marysol Diaz 03/30/2025 12:00 PM EST PACE Home Care / [facility] Visit [facility] [place] [facility] [address] [place] [address] Natali Sanfrod 03/30/2025 4:30 PM EST PACE Home Care / [facility] Visit [facility] [place] [facility] [address] [place] [address] Marysol Diaz 03/30/2025 5:30 PM EST PACE Home Care / [facility] Visit [facility] [place] [facility] [address] [place] [phone] Marysol Diaz 03/31/2025 8:30 AM EST PACE Home Care / [facility] Visit [facility] [place] [facility] [address] [place] [phone] Carmen Hartmann 03/31/2025 4:30 PM EST PACE Home Care / [facility] [place] [facility] [address] [place] [phone] Ashley Eastman 04/01/2025 8:30 AM EST PACE Home Care / [facility] Visit [facility] [place] [facility] [address] [place] [phone] Carmen Hartmann 04/01/2025 1:15 PM EST [facility] External Visit [facility] [place] [address] [place] [address] 04/01/2025 4:30 PM EST PACE Home Care / [facility] [place] [facility] [address] [place] [phone] Ashley Eastman 04/02/2025 8:30 AM EST PACE Home Care / [facility] Visit [facility] [place] [facility] [address] [place] [phone] Carmen Hartmann 04/02/2025 4:30 PM EST PACE Home Care / [facility] [place] [facility] [address] [place] [address] Ashley Eastman 04/03/2025 8:30 AM EST P[facility] Home Care / [facility] [place] [facility] [address] [place] [address] Carmen Hartmann 04/03/2025 9:00 AM EST [facility] [facility] [place] [facility] [address] [place] [address] 04/03/2025 4:30 PM EST PACE Home Care / [facility] [place] [facility] [address] [place] [address] Ashley Eastman 04/04/2025 8:00 AM EST P[facility] Home Care / [facility] [place] [facility] [address] [place] [phone] Carmen Hartmann 04/04/2025 9:30 AM EST P[facility] Home Care / [facility] Visit [facility] [place] [facility] [address] [place] [phone] Ralph Loyola 04/04/2025 4:30 PM EST P[facility] Home Care / [facility] [place] [facility] [address] [place] [phone] Ashley Eastman 04/05/2025 12:00 PM EST P[facility] Home Care / [facility] [place] [facility] [address] [place] [phone] Dena Chavez 04/06/2025 12:00 PM EST PACE Home Care / [facility] [place] [facility] [address] [place] [phone] Dena Chavez 2025 8:30 AM EST P[facility] Home Care / [facility] Visit [facility] [place] [facility] [address] [place] [address] Carmen Hartmann 2025 4:30 PM EST P[facility] Home Care / [facility] Visit [facility] [place] [facility] [address] [place] [address] Ashley Eastman 04/08/2025 8:30 AM EST P[facility] Home Care / [facility] Visit [facility] [place] [facility] [address] [place] [address] Carmen Hartmann 04/08/2025 4:30 PM EST PACE Home Care / [facility] Visit [facility] [place] [facility] [address] [place] [address] Ashley Eastman 04/09/2025 8:30 AM EST PACE Home Care / [facility] Visit [facility] [place] [facility] [address] [place] [phone] Carmen Hartmann 04/09/2025 4:30 PM EST PACE Home Care / [facility] Visit [facility] [place] [facility] [address] [place] [phone] Ashley Eastman 04/10/2025 8:30 AM EST PACE Home Care / [facility] Visit [facility] [place] [facility] [address] [place] [address] Carmen Hartmann 04/10/2025 9:00 AM EST [facility] Att[facility] [place] [facility] [address] [place] [address] 04/10/2025 4:30 PM EST P[facility] Home Care / [facility] [place] [facility] [address] [place] [phone] Ashley Eastman 04/11/2025 8:00 AM EST P[facility] Home Care / [facility] [address] [place] [phone] Carmen Hartmann 04/11/2025 9:30 AM EST P[facility] Home Care / [facility] [place] [facility] [address] [place] [phone] Ralph Loyola 04/11/2025 4:30 PM EST [facility] / [facility] Home [facility] Marsha ABRAMS [facility] [address] [place] [phone] Ashley Eastman 04/12/2025 8:30 AM EST [facility] / [facility] Home Visit Marsha ABRAMS [facility] [address] [place] [phone] Marysol Diaz 04/12/2025 12:00 PM EST [facility] / [facility] Home Visit Marsha ABRAMS [facility] [address] [place] [phone] Natali Sanford 04/12/2025 5:30 PM EST [facility] / [facility] Home Visit Marsha ABRAMS [facility] [address] [place] [phone] Marysol Diaz 04/15/2025 11:00 AM EST Office Visit [facility] [address] [place] [phone] Michelle Castillo MD [address] [place] [phone] Brigette East LPN 04/17/2025 9:00 AM EST [facility] [address] [place] [phone] 04/18/2025 10:00 AM EST Clinical Support [facility] [address] [place] [phone] Bethany Mccabe RN 04/24/2025 9:00 AM EST [facility] [address] [place] [phone] 04/24/2025 11:30 AM EST Clinical Support [facility] [address] [phone] 05/01/2025 9:00 AM EST PACE Attendance/Day Center [facility] PACE Day [address] [phone] 05/08/2025 9:00 AM EST P[facility] Attendance/Day Center [facility] P[facility] Day [address] [phone] 05/09/2025 10:00 AM EST Clinical Support [address] [phone] Bethany Mccabe RN 05/13/2025 11:00 AM EST Office Visit [facility] PACE [address] [phone] Michelle Castillo MD [address] [place] [phone] Brigette East LPN 05/15/2025 9:00 AM EST P[facility] Attendance/Day Center [facility] Day [address] [phone] 05/22/2025 9:00 AM EST P[facility] Attendance/Day Center [facility] [place] [facility] [address] [phone] 05/29/2025 9:00 AM EST PACE Attendance/Day Center [facility] PACE Day [address] [phone] 05/30/2025 10:00 AM EST Clinical Support [facility] Clinic [address] [place] [phone] Bethany Mccabe RN 06/05/2025 9:00 AM EST [facility] Attendance[facility]Day Center [facility] [address] [place] [phone] 06/10/2025 11:00 AM EST Office Visit [address] [phone] Michelle Castillo MD [address] [phone] Brigette East LPN 06/12/2025 9:00 AM EST [facility] Attendance[facility]Day Center [facility] Day [address] [phone] 06/19/2025 9:00 AM EST [facility] Attendance[facility]Day Center [facility] Day [address] [phone] 06/20/2025 10:00 AM EST Clinical Support [address] [phone] Bethany Mccabe RN 06/26/2025 9:00 AM EDT [facility] Attend[facility]Day [facility] Day [address] [phone] 06/27/2025 1:20 PM EDT Office Visit Gastroenterology - [address] [phone] Analisa Perez, ALON[address] [place] [phone] 07/03/2025 9:00 AM EDT [facility] Att[facility]Day [facility] Day [address] [phone] 07/10/2025 9:00 AM EDT P[facility] Attendance/Day Center [facility] PACE Day [address] [phone] 07/11/2025 10:00 AM EDT Clinical Support [facility] PACE [address] [phone] Bethany Mccabe RN 07/17/2025 9:00 AM EDT [facility] Attendance[facility]BR[facility] [place] [facility] [address] [place] [phone] 07/17/2025 3:30 PM EDT PACE External Visit Marsha ABRAMS [address] [phone] 07/24/2025 9:00 AM EDT [facility] [place] [facility] [address] [place] [phone] 07/31/2025 9:00 AM EDT [facility] [place] [facility] [address] [place] [phone] 08/01/2025 10:00 AM EDT Clinical Support [facility] [place] [facility] [address] [place] [phone] Bethany Mccabe RN 08/07/2025 9:00 AM EDT [facility] Att[facility] [place] [facility] [address] [place] [phone] 08/14/2025 9:00 AM EDT [facility] Att[facility] [place] [facility] [address] [place] [phone] 08/21/2025 9:00 AM EDT [facility] Att[facility] [place] [facility] [address] [place] [phone] 08/22/2025 10:00 AM EDT Clinical Support [facility] [place] [facility] [address] [place] [phone] Bethany Mccabe RN 08/28/2025 9:00 AM EDT [facility] [facility] [place] [facility] [address] [place] [phone] 09/04/2025 9:00 AM EDT [facility] [facility] [place] [facility] [address] [place] [phone] 09/11/2025 9:00 AM EDT [facility] Att[facility] [place] [facility] [address] [place] [phone] 09/12/2025 10:00 AM EDT Clinical Support [facility] [place] [facility] [address] [place] [phone] Bethany Mccabe, HEIDI 09/18/2025 9:00 AM EDT [facility] [facility] [place] [facility] [address] [place] [phone] 09/25/2025 9:00 AM EDT [facility] [facility] [place] [facility] [address] [place] [phone] 10/02/2025 9:00 AM EDT [facility] [place] [facility] [address] [place] [phone] 10/03/2025 10:00 AM EDT Clinical Support [facility] [place] [facility] [address] [place] [phone] Bethany Mccabe, HEIDI 10/09/2025 9:00 AM EDT [facility] [facility] [place] [facility] [address] [place] [phone] 10/24/2025 10:00 AM EDT Clinical Support [facility] [address] [place] [phone] Bethany Mccabe, HEIDI 11/14/2025 10:00 AM EDT Clinical Support [facility] [address] [place] [phone] Bethany Mccabe, RN 12/05/2025 10:00 AM EDT Clinical Support [facility] [address] [place] [phone] Bethany Mccabe, RN 12/26/2025 10:00 AM EDT Clinical Support [facility] [address] [place] [phone] Bethany Mccabe RN 01/16/2026 10:00 AM EDT Clinical Support [address] [phone] Bethany Mccabe RN 02/06/2026 10:00 AM EDT Clinical Support [address] [phone] Bethany Mccabe RN 02/27/2026 10:00 AM EST Clinical Support [address] [phone] Bethany Mccabe, HEIDI documented as of this encounter Visit Diagnoses Diagnosis Schizophrenia in partial remission with history of multiple episodes (CMS/HCC V24, CMS/HCC V28) Schizophrenia in partial remission with history of multiple episodes (CMS/HCC V24, CMS/HCC V28) documented in this encounter Orders [facility] Service Orderables Count Last Ordered Date First Ordered Date [facility] 1 02/07/2025 documented in this encounter Additional Health Concerns Infection Onset Date Last Indicated Resolved Time Gastrointestinal Rule-Out 02/10/2025 02/10/2025 documented as of this encounter Care Teams Loom Checker Relationship Specialty Start Date End Date Regulo Ivy NP [address] [place] [phone] PCP - General KELLI 06/07/24 documented as of this encounter
--- OUTSIDE RECORDS SUMMARY | 2025-02-11 19:42 | XMS_ITS | Encounter Summary ---
Author Organization [facility] Address [address] [place] [address] Care Team Providers Care Waterproofer Name Role Phone Regulo Ivy NP Primary Care Provider [phone] Encounter Details Date Type Department Care Team (Late st Contact Info) Description 02/06/2025 PACE On-Call [facility] Clinic [address] [place] [address] Michelle Castillo MD 200 [facility] [address] [place], [place] [id number] Social History Tobacco Use Types Packs/Day Years [...] your loved ones. 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 Wish to be (Past 1 Month) No 025 6:37 PM Jody Roach RN 2. Non-Specific Active Suici sage Thoughts (Past 1 Month) No 02/09/2025 6:37 PM PARMINDERT Madiha Mendoza RN 6. Suicidal Behavior (Lifetime) No 6:37 PM Jody Roach RN documented as of this encounter Mental Status * Because of a physical, mental, or emotional condition, do you have serious difficulty concentrating, remembering, or making decisions? (5 years old or older) Answer Entry Date Author Yes 02/03/2025 3:31 PM Malachi Fatima RN documented in this encounter Progress Notes * Michelle Castillo MD - 02/06/2025 9:00 AM EDT Date of call: 02/04/2025: Got a call from staff, after 9pm, regarding niuli Spencer's concerns about Елена not getting her psychiatric medications. Johanna relayed to our tube mill operator that the inpatient team had asked about bringing Елена's psych medications to the hospital. This MD called [facility], where pt was in Rm 431. Left a message with Елена's nurse to [facility] overnight provider call this MD. Got a call from TOYA Lazar, and she said that [facility], where Елена was admitted day before, on 02/03/25, did not have either Rexulti or Paliperidone. Given that she had not received any antipsychotics,we reviewed what meds were available at [facility]. Abilify was available. I recommended giving Abilify 15mg tonight, Abilify 5mg in am, and Abilify 15mg in the afternoon. Note: pt was discharged to home late 02/05/25, and it is hoped that she did get both Abilify 5mg zayra and 15mg after lunch. I will be seeing Елена later this morning. She can resume her previous Rexulti. Rexulti was the bridge between the Aristada (injectible Abilfy) to oral medication, given the similarity in structure andpharmacokinetics. Plan: In a week or two, we can introduce Paliperidone. Then we can increase Paliperidone and down-taper Rexulti. Given Елена's schizoaffective disorder, the mood component has to be addressed, with a very differentmedication class (many classes of meds to choose from). Compounding the complexity of medication considerations is her h/o seizure, and recent seizure-likeactivity. She is on a Very high dose of Keppra (1500mg BID) which interacts with most antipsychotics. documented in this encounter Plan of Treatment Upcoming Encounters Date Type Department Care Team (Latest Contact Info) Description 02/12/2025 8:30 AM EDT PACE Home Care / [facility] [address] [place] [address] Carmen Hartmann 02/12/2025 4:30 PM EDT PACE Home Care / [facility] Home Visit [facility] [address] [place] [address] Ashley Eastman 02/13/2025 8:30 AM EDT PACE Home Care / [facility] Home Visit [facility] [address] [place] [address] Carmen Hartmann 02/13/2025 9:00 AM EDT PACE Attendance/[facility] [place] [facility] [address] [place] [address] 02/13/2025 4:30 PM EDT PACE Home Care / [facility] Visit [facility] [address] [place] [address] Ashley Eastman 02/14/2025 8:00 AM EDT PACE Home Care / [facility] [address] [place] [address] Carmen Hartmann 02/14/2025 9:30 AM EDT PACE Home Care / [facility] Home Visit [facility] [address] [place] [address] Ralph Loyola 02/14/2025 4:30 PM EDT PACE Home Care / [facility] Home Visit [facility] [address] [place] [address] Ashley Eastman 02/15/2025 8:30 AM EDT PACE Home Care / P[facility] Visit [facility] [address] [place] [address] Marysol Diaz 02/15/2025 12:00 PM EDT PACE Home Care / [facility] [address] [place] [phone] Natali Sanford 02/15/2025 5:30 PM EDT PACE Home Care / [facility] Home Visit [facility] [address] [place] [phone] Marysol Diaz 02/16/2025 8:30 AM EST PACE Home Care / P[facility] Home Visit [facility] [address] [place] [phone] Marysol Diaz 02/16/2025 12:00 PM EST PACE Home Care / P[facility] Home Visit [facility] [address] [place] [phone] Natali Sanford 02/16/2025 4:30 PM EST PACE Home Care / [facility] Visit [facility] [address] [place] [phone] Marysol Diaz 02/16/2025 5:30 PM EST PACE Home Care / [facility] Home Visit [facility] [address] [place] [phone] Marysol Diaz 02/17/2025 8:30 AM EST PACE Home Care / P[facility] Home Visit [facility] [address] [place] [phone] Carmen Hartmann 02/17/2025 11:00 AM EST [facility] [place] [facility] [address] [place] [phone] Michelle Castillo MD [address] [place] [address] 02/17/2025 4:30 PM EST PACE Home Care / PACE Home Visit [facility] [address] [place] [phone] Ashley Eastman 02/18/2025 8:30 AM EST PACE Home Care / P[facility] Home Visit [facility] [address] [place] [phone] Carmen Hartmann 02/18/2025 11:00 AM EST [facility] Visit [facility] [place] [facility] [address] [place] [phone] Michelle Castillo MD [address] [address] Brigette East LPN 02/18/2025 4:30 PM EST PACE Home Care / P[facility] Home Visit [facility] [address] [place] [phone] Ashley Eastman 02/19/2025 8:30 AM EST PACE Home Care / P[facility] Home Visit [facility] [address] [place] [phone] Carmen Hartmann 02/19/2025 4:30 PM EST PACE Home Care / P[facility] Home Visit [facility] [address] [place] [phone] Ashley Eastamn 02/20/2025 8:30 AM EST PACE Home Care / [facility] Home Visit [facility] [address] [place] [phone] Carmen Hartmann 02/20/2025 9:00 AM EST [facility] [place] [facility] [address] [place] [phone] 02/20/2025 4:30 PM EST PACE Home Care / [facility] [place] [facility] [address] [place] [phone] Ashley Eastman 02/21/2025 8:00 AM EST PACE Home Care / [facility] [place] [facility] [address] [place] [address] Carmen Hartmann 02/21/2025 9:30 AM EST PACE Home Care / [facility] [address] [place] [address] Ralph Loyola 02/21/2025 4:30 PM EST PACE Home Care / [facility] [address] [place] [phone] Ashley Eastman 02/22/2025 12:00 PM EST PACE Home Care / [facility] [address] [place] [phone] Dena Chavez 02/23/2025 12:00 PM EST PACE Home Care / [facility] [address] [place] [phone] Dena Chavez 02/24/2025 8:30 AM EST PACE Home Care / [facility] Visit [facility] [place] [facility] [address] [place] [phone] Carmen Hartmann 02/24/2025 4:30 PM EST PACE Home Care / [facility] [address] [place] [phone] Ashley Eastman 02/25/2025 8:30 AM EST PACE Home Care / [facility] [address] [place] [phone] Carmen Hartmann 02/25/2025 4:30 PM EST PACE Home Care / [facility] [address] [place] [phone] Ashley Eastman 02/26/2025 8:30 AM EST PACE Home Care / [facility] [address] [place] [address] Carmen Hartmann 02/26/2025 4:30 PM EST PACE Home Care / [facility] [address] [place] [address] Ashley Eastman 02/27/2025 8:30 AM EST PACE Home Care / [facility] [place] [facility] [address] [place] [address] Carmen Hartmann 02/27/2025 9:00 AM EST [facility] [place] [facility] [address] [place] [address] 02/27/2025 4:30 PM EST PACE Home Care / [facility] [address] [place] [address] Ashley Eastman 02/28/2025 8:00 AM EST PACE Home Care / [facility] [address] [place] [address] Carmen Hartmann 02/28/2025 9:30 AM EST PACE Home Care / [facility] [address] [place] [address] Ralph Loyola 02/28/2025 4:30 PM EST PACE Home Care / [facility] [address] [place] [address] Ashley Eastman 03/01/2025 8:30 AM EST PACE Home Care / [facility] [address] [place] [address] Marysol Diaz 03/01/2025 12:00 PM EST PACE Home Care / [facility] [address] [place] [address] Natali Sanford 03/01/2025 5:30 PM EST PACE Home Care / [facility] [address] [place] [phone] [facility] 03/02/2025 8:30 AM EST PACE Home Care / [facility] [place] [facility] [address] [place] [phone] [facility] 03/02/2025 12:00 PM EST PACE Home Care / [facility] [address] [place] [phone] Natali Sanford 03/02/2025 4:30 PM EST PACE Home Care / [facility] [address] [place] [phone] [facility] 03/02/2025 5:30 PM EST PACE Home Care / [facility] [place] [facility] [address] [place] [phone] [facility] 03/03/2025 8:30 AM EST PACE Home Care / [facility] [address] [place] [phone] Carmen Hartmann 03/03/2025 4:30 PM EST PACE Home Care / [facility] [address] [place] [phone] Ashley Eastman 03/04/2025 8:30 AM EST PACE Home Care / [facility] [place] [facility] [address] [place] [phone] Carmen Hartmann 03/04/2025 4:30 PM EST PACE Home Care / [facility] [address] [place] [address] Ashley Eastman 03/05/2025 8:30 AM EST PACE Home Care / P[facility] Home Visit [facility] [address] [place] [address] Carmen Hartmann 03/05/2025 4:30 PM EST PACE Home Care / PACE Home Visit [facility] [address] [place] [address] Ashley Eastman 03/06/2025 8:30 AM EST PACE Home Care / PACE Home Visit [facility] [address] [place] [phone] Carmen Hartmann 03/06/2025 9:00 AM EST PACE Attendance/[facility] [address] [place] [phone] 03/06/2025 4:30 PM EST PACE Home Care / PACE Home Visit [facility] [address] [place] [phone] Ashley Eastman 03/07/2025 Lab [facility] [address] [place] [phone] Clemencia Napier, OT Schizophrenia in partial remission with history of multiple episodes (CMS/HCC V24, CMS/HCC V28) 03/07/2025 8:00 AM EST PACE Home Care / PACE Home Visit [facility] [address] [place] [phone] Carmen Hartmann 03/07/2025 9:00 AM EST Clinical Support [facility] [address] [place] [address] Bethany Mccabe RN 03/07/2025 9:30 AM EST PACE Home Care / PACE Home Visit [facility] [address] [place] [phone] Ralph Loyola 03/07/2025 4:30 PM EST PACE Home Care / [facility] [address] [place] [phone] Ashley Eastman 03/08/2025 12:00 PM EST PACE Home Care / [facility] [address] [place] [phone] Dena Chavez 03/09/2025 12:00 PM EST PACE Home Care / [facility] [address] [place] [phone] Dena Chavez 03/10/2025 8:30 AM EST PACE Home Care / [facility] [address] [place] [phone] Carmen Hartmann 03/10/2025 4:30 PM EST PACE Home Care / [facility] [place] [facility] [address] [place] [phone] Ashley Eastman 03/11/2025 8:30 AM EST PACE Home Care / [facility] [address] [place] [phone] Carmen Hartmann 03/11/2025 4:30 PM EST PACE Home Care / [facility] [address] [place] [phone] Ashley Eastman 03/12/2025 8:30 AM EST PACE Home Care / [facility] [place] [facility] [address] [place] [phone] Carmen Hartmann 03/12/2025 4:30 PM EST PACE Home Care / [facility] [address] [place] [phone] Ashley Eastman 03/13/2025 8:30 AM EST PACE Home Care / [facility] [address] [place] [address] Carmen Hartmann 03/13/2025 9:00 AM EST [facility] [place] [facility] [address] [place] [address] 03/13/2025 4:30 PM EST PACE Home Care / [facility] [address] [place] [phone] Ashley Eastman 03/14/2025 8:00 AM EST PACE Home Care / [facility] [address] [place] [phone] Carmen Hartmann 03/14/2025 9:30 AM EST PACE Home Care / [facility] [address] [place] [phone] Ralph Loyola 03/14/2025 4:30 PM EST PACE Home Care / [facility] [address] [place] [phone] Ashley Eastman 03/15/2025 8:30 AM EST PACE Home Care / [facility] [address] [place] [phone] Marysol Diaz 03/15/2025 12:00 PM EST PACE Home Care / [facility] [address] [place] [phone] Natali Sanford 03/15/2025 5:30 PM EST PACE Home Care / [facility] [address] [place] [phone] Marysol Diaz 03/16/2025 8:30 AM EST PACE Home Care / [facility] [address] [place] [phone] Marysol Diaz 03/16/2025 12:00 PM EST PACE Home Care / [facility] [address] [place] [phone] Natali Sanford 03/16/2025 4:30 PM EST PACE Home Care / [facility] [place] [facility] [address] [place] [phone] Marysol Diaz 03/16/2025 5:30 PM EST PACE Home Care / [facility] [address] [place] [phone] Marysol Diaz 03/17/2025 8:30 AM EST PACE Home Care / [facility] [address] [place] [phone] Carmen Hartmann 03/17/2025 4:30 PM EST PACE Home Care / [facility] [address] [place] [phone] Ashley Eastman 03/18/2025 8:30 AM EST PACE Home Care / [facility] [address] [place] [phone] Carmen Hartmann 03/18/2025 11:00 AM EST [facility] Visit [facility] [place] [facility] [address] [place] [phone] Michelle Castillo MD [address] [address] Brigette East LPN 03/18/2025 4:30 PM EST PACE Home Care / [facility] [address] [place] [address] Ashley Eastman 03/19/2025 8:30 AM EST PACE Home Care / P[facility] Visit [facility] [address] [place] [address] Carmen Hartmann 03/19/2025 4:30 PM EST PACE Home Care / P[facility] Visit [facility] [address] [place] [address] Ashley Eastman 03/20/2025 8:30 AM EST PACE Home Care / [facility] [address] [place] [address] Carmen Hartmann 03/20/2025 9:00 AM EST [facility] [place] [facility] [address] [place] [address] 03/20/2025 4:30 PM EST PACE Home Care / P[facility] [address] [place] [address] Ashley Eastman 03/21/2025 8:00 AM EST PACE Home Care / P[facility] Visit [facility] [address] [place] [address] Carmen Hartmann 03/21/2025 9:30 AM EST PACE Home Care / P[facility] Visit [facility] [address] [place] [address] Ralph Loyola 03/21/2025 4:30 PM EST PACE Home Care / [facility] [address] [place] [address] Ashley Eastman 03/22/2025 12:00 PM EST PACE Home Care / P[facility] [address] [place] [phone] Dena Chavez 03/23/2025 12:00 PM EST PACE Home Care / [facility] [address] [place] [phone] Dena Chavez 03/24/2025 8:30 AM EST PACE Home Care / [facility] [address] [place] [phone] Carmen Hartmann 03/24/2025 9:[address] [facility] [address] [place] [address] Lakia Hou, CCC-PLATE GRAINER 03/24/2025 4:30 PM EST PACE Home Care / [facility] [address] [place] [phone] Ashley Eastman 03/25/2025 8:30 AM EST PACE Home Care / [facility] [address] [place] [phone] Carmen Hartmann 03/25/2025 4:30 PM EST PACE Home Care / [facility] [address] [place] [phone] Ashley Eastman 03/26/2025 8:30 AM EST PACE Home Care / [facility] [address] [place] [phone] Carmen Hartmann 03/26/2025 4:30 PM EST PACE Home Care / [facility] [address] [place] [phone] Ashley Eastman 03/27/2025 8:30 AM EST PACE Home Care / [facility] [address] [place] [phone] Carmen Hartmann 03/27/2025 9:00 AM EST PACE Attend[facility] [place] [facility] [address] [place] [address] 03/27/2025 2:40 PM EST Clinical Support [facility] [address] [place] [address] 03/27/2025 4:30 PM EST PACE Home Care / P[facility] [address] [place] [address] Ashley Eastman 03/28/2025 8:00 AM EST PACE Home Care / P[facility] Visit [facility] [address] [place] [address] Carmen Hartmann 03/28/2025 10:00 AM EST Clinical Support [facility] [place] [facility] [address] [place] [address] Bethany Mccabe RN 03/28/2025 4:30 PM EST PACE Home Care / P[facility] [address] [place] [phone] Ashley Eastman 03/29/2025 8:30 AM EST PACE Home Care / P[facility] [address] [place] [phone] Marysol Diaz 03/29/2025 12:00 PM EST PACE Home Care / [facility] [address] [place] [phone] Natali Sanford 03/29/2025 5:30 PM EST PACE Home Care / [facility] [address] [place] [address] Marysol Diaz 03/30/2025 8:30 AM EST PACE Home Care / [facility] [address] [place] [address] Marysol Diaz 03/30/2025 12:00 PM EST PACE Home Care / [facility] [address] [place] [phone] Natali Sanford 03/30/2025 4:30 PM EST PACE Home Care / [facility] [address] [place] [phone] Marysol Diaz 03/30/2025 5:30 PM EST PACE Home Care / [facility] [address] [place] [phone] Marysol Diaz 03/31/2025 8:30 AM EST PACE Home Care / [facility] [address] [place] [phone] Carmen Hartmann 03/31/2025 4:30 PM EST PACE Home Care / [facility] [address] [place] [phone] Ashley Eastman 04/01/2025 8:30 AM EST PACE Home Care / [facility] [place] [facility] [address] [place] [phone] Carmen Hartmann 04/01/2025 1:15 PM EST PACE [facility] [address] [place] [phone] 04/01/2025 4:30 PM EST PACE Home Care / [facility] [address] [place] [phone] Ashley Eastman 04/02/2025 8:30 AM EST PACE Home Care / [facility] [address] [place] [phone] Carmen Hartmann 04/02/2025 4:30 PM EST PACE Home Care / [facility] [address] [place] [address] Ashley Eastman 04/03/2025 8:30 AM EST PACE Home Care / [facility] [address] [place] [address] Carmen Hartmann 04/03/2025 9:00 AM EST PACE Attendance/[facility] [address] [place] [address] 04/03/2025 4:30 PM EST [facility] / [facility] [address] [place] [phone] Ashley Eastman 04/04/2025 8:00 AM EST [facility] / [facility] [address] [place] [phone] Carmen Hartmann 04/04/2025 9:30 AM EST [facility] Home [facility] / [facility] [address] [place] [phone] Ralph Loyola 04/04/2025 4:30 PM EST [facility] Home [facility] / [facility] [address] [place] [phone] Ashley Eastman 04/05/2025 12:00 PM EST [facility] Home [facility] / [facility] [address] [place] [phone] Dena Chavez 04/06/2025 12:00 PM EST [facility] / [facility] [address] [place] [phone] Dena Chavez 2025 8:30 AM EST [facility] / [facility] [address] [place] [phone] Carmen Hartmann 2025 4:30 PM EST [facility] / [facility] [address] [place] [phone] Ashley Eastman 04/08/2025 8:30 AM EST [facility] / [facility] [address] [place] [phone] Carmen Hartmann 04/08/2025 4:30 PM EST [facility] / [facility] [address] [place] [phone] Ashley Eastman 04/09/2025 8:30 AM EST [facility] / [facility] [address] [place] [phone] Carmen Hartmann 04/09/2025 4:30 PM EST [facility] / [facility] [address] [place] [phone] Ashley Eastman 04/10/2025 8:30 AM EST [facility] / [facility] [address] [place] [phone] Carmen Hartmann 04/10/2025 9:00 AM EST [facility] [place] [facility] [address] [place] [address] 04/10/2025 4:30 PM EST [facility] / [facility] [address] [place] [phone] Ashley Eastman 04/11/2025 8:00 AM EST [facility] / [facility] [address] [place] [phone] Carmen Hartmann 04/11/2025 9:30 AM EST [facility] / [facility] [address] [place] [phone] Ralph Loyola 04/11/2025 4:30 PM EST [facility] / [facility] [address] [place] [phone] Ashley Eastman 04/12/2025 8:30 AM EST [facility] / [facility] [address] [place] [phone] Marysol Diaz 04/12/2025 12:00 PM EST [facility] / [facility] [address] [place] [phone] Natali Sanford 04/12/2025 5:30 PM EST [facility] / [facility] [address] [place] [phone] Marysol Diaz 04/15/2025 11:00 AM EST [facility] [address] [place] [phone] Michelle Castillo MD [address] [place] [phone] Brigette East LPN 04/17/2025 9:00 AM EST [facility] [address] [place] [address] 04/18/2025 10:00 AM EST Clinical Support [facility] [address] [place] [phone] Bethany Mccabe RN 04/24/2025 9:00 AM EST [facility] Attendance/Day Center [facility] [address] [place] [phone] 04/24/2025 11:30 AM EST Clinical Support [facility] [address] [phone] 05/01/2025 9:00 AM EST PACE Attendance/Day Center [facility] P[facility] Day [address] [phone] 05/08/2025 9:00 AM EST PACE Attendance/Day Center [facility] Day [address] [phone] 05/09/2025 10:00 AM EST Clinical Support [facility] [address] [place] [phone] Bethany Mccabe RN 05/13/2025 11:00 AM EST Office Visit [facility] [address] [place] [phone] Michelle Castillo MD [address] [place] [phone] Brigette East LPN 05/15/2025 9:00 AM EST PACE Attendance/Day Center [facility] P[facility] Day [address] [address] 05/22/2025 9:00 AM EST PACE Attendance/Day Center [facility] [address] [address] 05/29/2025 9:00 AM EST PACE Attendance/Day Center [facility] [address] [address] 05/30/2025 10:00 AM EST Clinical Support [facility] [address] [place] [phone] Bethany Mccabe RN 06/05/2025 9:00 AM EST PACE Attendance/Day Center [facility] [address] [place] [phone] 06/10/2025 11:00 AM EST Office Visit [facility] [address] [place] [phone] Michelle Castillo MD [address] [place] [phone] Brigette East LPN 06/12/2025 9:00 AM EST PACE Attendance/Day Center [facility] [address] [place] [phone] 06/19/2025 9:00 AM EST PACE Attendance/Day Center [facility] P[facility] Day [address] [address] 06/20/2025 10:00 AM EST Clinical Support [facility] PACE [address] [phone] Bethany Mccabe RN 06/26/2025 9:00 AM EDT PACE Attendance/Day Center [facility] Day [address] [address] 06/27/2025 1:20 PM EDT Office Visit Gastroenterology - [address] [phone] Analisa Perez, ALONSO [address] [place] [phone] 07/03/2025 9:00 AM EDT P[facility] Attendance/[facility] Day [address] [address] 07/10/2025 9:00 AM EDT PACE Attendance/Day Center [facility] [address] [place] [phone] 07/11/2025 10:00 AM EDT Clinical Support [facility] [address] [place] [phone] Bethany Mccabe RN 07/17/2025 9:00 AM EDT [facility] Attendance/[facility] [address] [place] [address] 07/17/2025 3:30 PM EDT [facility] External Visit [facility] [address] [phone] 07/24/2025 9:00 AM EDT [facility] Attendance/[facility] [address] [place] [phone] 07/31/2025 9:00 AM EDT [facility] Attendance/[facility] [address] [place] [phone] 08/01/2025 10:00 AM EDT Clinical Support [facility] [address] [place] [phone] Bethany Mccabe RN 08/07/2025 9:00 AM EDT [facility] Attendance[facility] [address] [place] [phone] 08/14/2025 9:00 AM EDT [facility] Attendance[facility] [address] [place] [phone] 08/21/2025 9:00 AM EDT [facility] Attendance[facility] [address] [place] [phone] 08/22/2025 10:00 AM EDT Clinical Support [facility] [address] [place] [phone] Bethany Mccabe RN 08/28/2025 9:00 AM EDT [facility] Attendance[facility] [address] [place] [phone] 09/04/2025 9:00 AM EDT [facility] Attendance[facility] [address] [place] [phone] 09/11/2025 9:00 AM EDT [facility] [address] [place] [phone] 09/12/2025 10:00 AM EDT Clinical Support [facility] [address] [phone] Bethany Mccabe RN 09/18/2025 9:00 AM EDT [facility] Attendance[facility] [address] [place] [phone] 09/25/2025 9:00 AM EDT [facility] Attendance[facility] [address] [place] [phone] 10/02/2025 9:00 AM EDT [facility] Attendance[facility] [address] [place] [phone] 10/03/2025 10:00 AM EDT Clinical Support [facility] [place] [facility] [address] [phone] Bethany Mccabe RN 10/09/2025 9:00 AM EDT [facility] Attendance/[facility] [address] [address] 10/24/2025 10:00 AM EDT Clinical Support [facility] [address] [place] [phone] Bethany Mccabe RN 11/14/2025 10:00 AM EDT Clinical Support [facility] [address] [place] [phone] Bethany Mccabe, RN 12/05/2025 10:00 AM EDT Clinical Support [facility] [address] [place] [phone] Bethany Mccabe, RN 12/26/2025 10:00 AM EDT Clinical Support [address] [phone] Bethany Mccabe, HEIDI 01/16/2026 10:00 AM EDT Clinical Support [address] [phone] Bethany Mccabe RN 02/06/2026 10:00 AM EDT Clinical Support [address] [phone] Bethany Mccabe RN 02/27/2026 10:00 AM EST Clinical Support [address] [phone] Bethany Mccabe RN documented as of this encounter Visit Diagnoses Not on filedocumented in this encounter Additional Health Concerns Infection Onset Date Last Indicated Resolved Time Gastrointestinal Rule-Out 02/10/2025 02/10/2025 documented as of this encounter Care Teams Waterproofer Relationship Specialty Start Date End Date Regulo Ivy NP [address] [place] [phone] PCP - General KELLI 06/07/24 documented as of this encounter
--- OUTSIDE RECORDS SUMMARY | 2025-02-11 19:43 | XMS_ITS | Encounter Summary ---
Author Organization [facility] Address [address] [place] [address] Care Team Providers Care Furnace Repair Mechanic Name Role Phone Regulo Ivy NP Primary Care Provider [phone] Reason for Visit * Reason Onset Date Comments Clinical 02/05/2025 Taco called to report par was d/c from hospital with med changes. Spoke to surgical consultant provider Adriano Ivy, he report changes were ordered from pharmacy and to be delivered tomorrow. Taco made aware someone from the center would follow up to make med changes. [facility] assistance to resume this evening. Kay Grijalva [facility] electrical tests supervisor aware. Encounter Details Date Type Department Care Team (Late st Contact Info) Description 02/05/2025 PACE On-Call [facility] P[facility] Clinic [address] [place] [address] Juliet Scott NP 200 [facility] [address] [place], [place] [id number] Social History Tobacco Use Types Packs/Day Years [...] care for your loved ones. For example, children's tutor or elderly care for an older adult? [...] [place] [facility] [address] [place] [phone] Carmen Hartmann 02/12/2025 4:30 PM EDT PACE Home Care / PACE Home Visit [facility]AMS [place] [facility] [address] [place] [phone] Ashley Eastman 02/13/2025 8:30 AM EDT PACE Home Care / PACE Home Visit [facility]ha [facility] [place] [facility] [address] [place] [address] Carmen Hartmann 02/13/2025 9:00 AM EDT PACE Attendance/Day Center [facility] [place] [facility] [address] [place] [address] 02/13/2025 4:30 PM EDT PACE Home Care / PACE Home Visit [facility] [place] [facility] [address] [place] [phone] Ashley Eastman 02/14/2025 8:00 AM EDT PACE Home Care / PACE Home Visit [facility] [place] [facility] [address] [place] [phone] Carmen Hartmann 02/14/2025 9:30 AM EDT PACE Home Care / PACE Home Visit Marsah [facility]BRAMS [place] [facility] [address] [place] [phone] Ralph Loyola 02/14/2025 4:30 PM EDT PACE Home Care / PACE Home Visit [facility] [place] [facility] [address] [place] [phone] Ashley Eastman 02/15/2025 8:30 AM EDT PACE Home Care / PACE Home Visit [facility] [place] [facility] [address] [place] [phone] Marysol Diaz 02/15/2025 12:00 PM EDT PACE Home Care / PACE Home Visit [facility] [place] [facility] [address] [place] [phone] Natali Sanford 02/15/2025 5:30 PM EDT PACE Home Care / PACE Home Visit [facility] [place] [facility] [address] [place] [phone] Marysol Diaz 02/16/2025 8:30 AM EST PACE Home Care / [facility] Home Visit [facility] [place] [facility] [address] [place] [phone] Marysol Diaz 02/16/2025 12:00 PM EST PACE Home Care / PACE Home Visit [facility] [place] [facility] [address] [place] [phone] Natali Sanford 02/16/2025 4:30 PM EST PACE Home Care / PACE Home Visit [facility] [place] [facility] [address] [place] [phone] Marysol Daiz 02/16/2025 5:30 PM EST PACE Home Care / P[facility] Home Visit [facility] [place] [facility] [address] [place] [phone] Marysol Diaz 02/17/2025 8:30 AM EST PACE Home Care / P[facility] Home Visit [facility] [place] [facility] [address] [place] [phone] Carmen Hartmann 02/17/2025 11:00 AM EST Office Visit [facility] [place] [facility] [address] [place] [phone] Michelle Castillo MD [address] [place] [phone] 02/17/2025 4:30 PM EST PACE Home Care / PACE Home Visit [facility] [place] [facility] [address] [place] [phone] Ashley Eastman 02/18/2025 8:30 AM EST PACE Home Care / PACE Home Visit [facility] [place] [facility] [address] [place] [phone] Carmen Hartmann 02/18/2025 11:00 AM EST Office Visit [facility] [place] [facility] [address] [place] [phone] Michelle Castillo MD [address] [address] Brigette East LPN 02/18/2025 4:30 PM EST PACE Home Care / PACE Home Visit [facility] [place] [facility] [address] [place] [phone] Ashley Eastman 02/19/2025 8:30 AM EST PACE Home Care / PACE Home Visit [facility] [place] [facility] [address] [place] [phone] Carmen Hartmann 02/19/2025 4:30 PM EST PACE Home Care / PACE Home Visit [facility] [place] [facility] [address] [place] [phone] Ashley Eastman 02/20/2025 8:30 AM EST PACE Home Care / P[facility] Home Visit [facility] [place] [facility] [address] [place] [phone] Carmen Hartmann 02/20/2025 9:00 AM EST [facility] Att[facility] [facility] [place] [facility] [address] [place] [phone] 02/20/2025 4:30 PM EST PACE Home Care / [facility] Home Visit [facility] [place] [facility] [address] [place] [phone] Ashley Eastman 02/21/2025 8:00 AM EST PACE Home Care / P[facility] Home Visit [facility] [place] [facility] [address] [place] [phone] Carmen Hartmann 02/21/2025 9:30 AM EST PACE Home Care / P[facility] Home Visit [facility] [place] [facility] [address] [place] [phone] Ralph Loyola 02/21/2025 4:30 PM EST PACE Home Care / P[facility] Home Visit [facility] [place] [facility] [address] [place] [phone] Ashley Eastman 02/22/2025 12:00 PM EST PACE Home Care / P[facility] Home Visit [facility] [place] [facility] [address] [place] [phone] Dena Chavez 02/23/2025 12:00 PM EST PACE Home Care / P[facility] Home Visit [facility] [place] [facility] [address] [place] [phone] Dena Chavez 02/24/2025 8:30 AM EST PACE Home Care / P[facility] Home Visit [facility] [place] [facility] [address] [place] [phone] Carmen Hartmann 02/24/2025 4:30 PM EST PACE Home Care / P[facility] Home Visit [facility] [place] [facility] [address] [place] [phone] Ashley Eastman 02/25/2025 8:30 AM EST PACE Home Care / P[facility] Home Visit [facility] [place] [facility] [address] [place] [phone] Carmen Hartmann 02/25/2025 4:30 PM EST PACE Home Care / P[facility] Home Visit [facility] [place] [facility] [address] [place] [phone] Ashley Eastman 02/26/2025 8:30 AM EST PACE Home Care / P[facility] Home Visit [facility] [place] [facility] [address] [place] [phone] Carmen Hartmann 02/26/2025 4:30 PM EST PACE Home Care / P[facility] Home Visit [facility] [place] [facility] [address] [place] [phone] Ashley Eastman 02/27/2025 8:30 AM EST PACE Home Care / P[facility] Home Visit [facility] [place] [facility] [address] [place] [address] Carmen Hartmann 02/27/2025 9:00 AM EST [facility] Att[facility] [facility] [place] [facility] [place] [facility] [address] [place] [address] 02/27/2025 4:30 PM EST PACE Home Care / P[facility] Home Visit [facility] [place] [facility] [address] [place] [phone] Ashley Eastman 02/28/2025 8:00 AM EST PACE Home Care / P[facility] Home Visit [facility] [place] [facility] [address] [place] [phone] Carmen Hartmann 02/28/2025 9:30 AM EST PACE Home Care / PACE Home Visit [facility] [place] [facility] [address] [place] [phone] Ralph Loyola 02/28/2025 4:30 PM EST PACE Home Care / P[facility] Home Visit [facility] [place] [facility] [address] [place] [phone] Ashley Eastman 03/01/2025 8:30 AM EST PACE Home Care / P[facility] Home Visit [facility] [place] [facility] [address] [place] [phone] Marysol Diaz 03/01/2025 12:00 PM EST PACE Home Care / PACE Home Visit [facility] [place] [facility] [address] [place] [phone] Natali Sanford 03/01/2025 5:30 PM EST PACE Home Care / PACE Home Visit [facility] [place] [facility] [address] [place] [phone] Marysol Diaz 03/02/2025 8:30 AM EST PACE Home Care / PACE Home Visit [facility] [place] [facility] [address] [place] [address] Marysol Diaz 03/02/2025 12:00 PM EST PACE Home Care / PACE Home Visit [facility] [place] [facility] [address] [place] [phone] Natali Sanford 03/02/2025 4:30 PM EST PACE Home Care / PACE Home Visit [facility] [place] [facility] [address] [place] [address] Marysol Diaz 03/02/2025 5:30 PM EST PACE Home Care / PACE Home Visit [facility] [place] [facility] [address] [place] [phone] Marysol Diaz 03/03/2025 8:30 AM EST PACE Home Care / PACE Home Visit [facility] [place] [facility] [address] [place] [phone] Carmen Hartmann 03/03/2025 4:30 PM EST PACE Home Care / PACE Home Visit [facility] [place] [facility] [address] [place] [phone] Ashley Eastman 03/04/2025 8:30 AM EST PACE Home Care / PACE Home Visit [facility] [place] [facility] [address] [place] [phone] Carmen Hartmann 03/04/2025 4:30 PM EST PACE Home Care / PACE Home Visit [facility] [place] [facility] [address] [place] [phone] Ashley Eastman 03/05/2025 8:30 AM EST PACE Home Care / PACE Home Visit [facility] [place] [facility] [address] [place] [phone] Carmen Hartmann 03/05/2025 4:30 PM EST PACE Home Care / PACE Home Visit [facility] [place] [facility] [address] [place] [address] Ashley Eastman 03/06/2025 8:30 AM EST PACE Home Care / PACE Home Visit [facility] [place] [facility] [address] [place] [phone] Carmen Hartmann 03/06/2025 9:00 AM EST PACE Attendance/Day [facility] [place] [facility] [address] [place] [address] 03/06/2025 4:30 PM EST PACE Home Care / PACE Home Visit [facility] [place] [facility] [address] [place] [phone] Ashley Eastman 03/07/2025 Lab Marsha ABRAMS MA Occupational Therapy [address] [place] [phone] Clemencia Napier, OT Schizophrenia in partial remission with history of multiple episodes (CMS/HCC V24, CMS/HCC V28) 03/07/2025 8:00 AM EST PACE Home Care / PACE Home Visit [facility] [place] [facility] [address] [place] [address] Carmen Hartmann 03/07/2025 9:00 AM EST Clinical Support [facility] [place] [facility] [address] [place] [phone] Bethany Mccabe, HEIDI 03/07/2025 9:30 AM EST PACE Home Care / PACE Home Visit [facility] [place] [facility] [address] [place] [phone] Ralph Loyola 03/07/2025 4:30 PM EST PACE Home Care / PACE Home Visit [facility] [place] [facility] [address] [place] [phone] Ashley Eastman 03/08/2025 12:00 PM EST PACE Home Care / PACE Home Visit [facility] [place] [facility] [address] [place] [address] Dena Chavez 03/09/2025 12:00 PM EST PACE Home Care / PACE Home Visit [facility] [place] [facility] [address] [place] [address] Dena Chavez 03/10/2025 8:30 AM EST PACE Home Care / PACE Home Visit [facility] [place] [facility] [address] [place] [address] Carmen Hartmann 03/10/2025 4:30 PM EST PACE Home Care / PACE Home Visit [facility] [place] [facility] [address] [place] [phone] Ashley Eastman 03/11/2025 8:30 AM EST PACE Home Care / PACE Home Visit [facility] [place] [facility] [address] [place] [phone] Carmen Hartmann 03/11/2025 4:30 PM EST PACE Home Care / PACE Home Visit [facility] [place] [facility] [address] [place] [address] Ashley Eastman 03/12/2025 8:30 AM EST PACE Home Care / PACE Home Visit [facility] [place] [facility] [address] [place] [address] Carmen Hartmann 03/12/2025 4:30 PM EST PACE Home Care / PACE Home Visit [facility] [place] [facility] [address] [place] [address] Ashley Eastman 03/13/2025 8:30 AM EST PACE Home Care / PACE Home Visit [facility] [place] [facility] [address] [place] [address] Carmen Hartmann 03/13/2025 9:00 AM EST PACE Attendance/Day Center [facility] [place] [facility] [address] [place] [address] 03/13/2025 4:30 PM EST PACE Home Care / PACE Home Visit [facility] [place] [facility] [address] [place] [address] Ashley Eastman 03/14/2025 8:00 AM EST PACE Home Care / PACE Home Visit [facility] [place] [facility] [address] [place] [address] Carmen Hartmann 03/14/2025 9:30 AM EST PACE Home Care / PACE Home Visit [facility] [place] [facility] [address] [place] [phone] Ralph Loyola 03/14/2025 4:30 PM EST PACE Home Care / PACE Home Visit [facility] [place] [facility] [address] [place] [phone] Ashley Eastman 03/15/2025 8:30 AM EST PACE Home Care / PACE Home Visit [facility] [place] [facility] [address] [place] [phone] Marysol Diaz 03/15/2025 12:00 PM EST PACE Home Care / PACE Home Visit [facility] [place] [facility] [address] [place] [phone] Natali Sanford 03/15/2025 5:30 PM EST PACE Home Care / PACE Home Visit [facility] [place] [facility] [address] [place] [phone] Marysol Diaz 03/16/2025 8:30 AM EST PACE Home Care / PACE Home Visit [facility] [place] [facility] [address] [place] [phone] Marysol Diaz 03/16/2025 12:00 PM EST PACE Home Care / PACE Home Visit [facility] [place] [facility] [address] [place] [phone] Natali Sanford 03/16/2025 4:30 PM EST PACE Home Care / PACE Home Visit [facility] [place] [facility] [address] [place] [phone] Marysol Diaz 03/16/2025 5:30 PM EST PACE Home Care / PACE Home Visit [facility] [place] [facility] [address] [place] [phone] Marysol Diaz 03/17/2025 8:30 AM EST PACE Home Care / PACE Home Visit [facility] [place] [facility] [address] [place] [phone] Carmen Hartmann 03/17/2025 4:30 PM EST PACE Home Care / PACE Home Visit [facility] [place] [facility] [address] [place] [phone] Ashley Eastman 03/18/2025 8:30 AM EST PACE Home Care / PACE Home Visit [facility] [place] [facility] [address] [place] [phone] Carmen Hartmann 03/18/2025 11:00 AM EST Office Visit [facility] [place] [facility] [address] [place] [phone] Michelle Castillo MD [address] [place] [phone] Brigette East LPN 03/18/2025 4:30 PM EST PACE Home Care / PACE Home Visit [facility] [place] [facility] [address] [place] [phone] Ashley Eastman 03/19/2025 8:30 AM EST PACE Home Care / PACE Home Visit [facility] [place] [facility] [address] [place] [phone] Carmen Hartmann 03/19/2025 4:30 PM EST PACE Home Care / PACE Home Visit [facility] [place] [facility] [address] [place] [address] Ashley Eastman 03/20/2025 8:30 AM EST PACE Home Care / PACE Home Visit [facility] [place] [facility] [address] [place] [address] Carmen Hartmann 03/20/2025 9:00 AM EST [facility] Att[facility] [facility] [place] [facility] [address] [place] [address] 03/20/2025 4:30 PM EST PACE Home Care / P[facility] Home Visit [facility] [place] [facility] [address] [place] [address] Ashley Eastman 03/21/2025 8:00 AM EST PACE Home Care / P[facility] Home Visit [facility] [place] [facility] [address] [place] [address] Carmen Hartmann 03/21/2025 9:30 AM EST PACE Home Care / P[facility] Home Visit [facility] [place] [facility] [address] [place] [address] Ralph Loyola 03/21/2025 4:30 PM EST PACE Home Care / P[facility] Home Visit [facility] [place] [facility] [address] [place] [phone] Ashley Eastman 03/22/2025 12:00 PM EST PACE Home Care / PACE Home Visit [facility] [place] [facility] [address] [place] [phone] Dena Chavez 03/23/2025 12:00 PM EST PACE Home Care / PACE Home Visit [facility] [place] [facility] [address] [place] [address] Dena Chavez 03/24/2025 8:30 AM EST PACE Home Care / PACE Home Visit [facility] [place] [facility] [address] [place] [phone] Carmen Hartmann 03/24/2025 9:45 AM EST Appointment [facility] Xray [address] [place] [address] Lakia Hou, [facility]-VARIOUS EXCEPTIONALITIES TEACHER 03/24/2025 4:30 PM EST PACE Home Care / PACE Home Visit [facility] [address] [place] [phone] Ashley Eastman 03/25/2025 8:30 AM EST PACE Home Care / PACE Home Visit [facility] [place] [facility] [address] [place] [phone] Carmen Hartmann 03/25/2025 4:30 PM EST PACE Home Care / PACE Home Visit [facility] [place] [facility] [address] [place] [phone] Ashley Eastman 03/26/2025 8:30 AM EST PACE Home Care / PACE Home Visit [facility] [place] [facility] [address] [place] [phone] Carmen Hartmann 03/26/2025 4:30 PM EST PACE Home Care / PACE Home Visit [facility] [address] [place] [phone] Ashley Eastman 03/27/2025 8:30 AM EST PACE Home Care / PACE Home Visit [facility] [place] [facility] [address] [place] [phone] Carmen Hartmann 03/27/2025 9:00 AM EST PACE Attendance/[facility] [place] [facility] [address] [place] [phone] 03/27/2025 2:40 PM EST Clinical Support [facility] [place] [address] [place] [phone] 03/27/2025 4:30 PM EST PACE Home Care / PACE Home Visit [facility] [address] [place] [phone] Ashley Eastman 03/28/2025 8:00 AM EST PACE Home Care / PACE Home Visit [facility] [place] [facility] [address] [place] [phone] Carmen Hartmann 03/28/2025 10:00 AM EST Clinical Support [facility] [place] [facility] [address] [place] [phone] Bethany Mccabe RN 03/28/2025 4:30 PM EST PACE Home Care / PACE Home Visit [facility] [address] [place] [phone] Ashley Eastman 03/29/2025 8:30 AM EST PACE Home Care / PACE Home Visit [facility] [address] [place] [phone] Marysol Diaz 03/29/2025 12:00 PM EST PACE Home Care / PACE Home Visit [facility] [place] [facility] [address] [place] [phone] Natali Sanford 03/29/2025 5:30 PM EST PACE Home Care / PACE Home Visit [facility] [address] [place] [phone] Marysol Diaz 03/30/2025 8:30 AM EST PACE Home Care / PACE Home Visit [facility] [place] [facility] [address] [place] [phone] Marysol Diaz 03/30/2025 12:00 PM EST PACE Home Care / PACE Home Visit [facility] [address] [place] [phone] Natali Sanford 03/30/2025 4:30 PM EST PACE Home Care / P[facility] Home Visit [facility] [place] [facility] [address] [place] [address] Marysol Diaz 03/30/2025 5:30 PM EST PACE Home Care / P[facility] Home Visit [facility] [place] [facility] [address] [place] [address] Marysol Diaz 03/31/2025 8:30 AM EST PACE Home Care / PACE Home Visit [facility] [place] [facility] [address] [place] [address] Carmen Hartmann 03/31/2025 4:30 PM EST PACE Home Care / P[facility] Home Visit [facility] [place] [facility] [address] [place] [address] Ashley Eastman 04/01/2025 8:30 AM EST PACE Home Care / P[facility] Home Visit [facility] [place] [facility] [address] [place] [address] Carmen Hartmann 04/01/2025 1:15 PM EST PACE External Visit [facility] [place] [address] [place] [address] 04/01/2025 4:30 PM EST PACE Home Care / P[facility] Home Visit [facility] [place] [facility] [address] [place] [address] Ashley Eastman 04/02/2025 8:30 AM EST PACE Home Care / P[facility] Home Visit [facility] [place] [facility] [address] [place] [address] Carmen Hartmann 04/02/2025 4:30 PM EST PACE Home Care / P[facility] Home Visit [facility] [place] [facility] [address] [place] [address] Ashley Eastman 04/03/2025 8:30 AM EST PACE Home Care / P[facility] Home Visit [facility] [place] [facility] [address] [place] [address] Carmen Hartmann 04/03/2025 9:00 AM EST [facility] [facility] [place] [facility] [address] [place] [address] 04/03/2025 4:30 PM EST PACE Home Care / [facility] Visit [facility] [place] [facility] [address] [place] [address] Ashley Eastman 04/04/2025 8:00 AM EST PACE Home Care / P[facility] Home Visit [facility] [place] [facility] [address] [place] [address] Carmen Hartmann 04/04/2025 9:30 AM EST PACE Home Care / P[facility] Visit [facility] [place] [facility] [address] [place] [address] Ralph Loyola 04/04/2025 4:30 PM EST PACE Home Care / P[facility] Visit [facility] [place] [facility] [address] [place] [address] Ashley Eastman 04/05/2025 12:00 PM EST PACE Home Care / P[facility] Visit [facility] [place] [facility] [address] [place] [address] Dena Chavez 04/06/2025 12:00 PM EST PACE Home Care / P[facility] Home Visit [facility] [place] [facility] [address] [place] [address] Dena Chavez 2025 8:30 AM EST PACE Home Care / P[facility] Visit [facility] [place] [facility] [address] [place] [address] Carmen Hartmann 2025 4:30 PM EST PACE Home Care / P[facility] Visit [facility] [place] [facility] [address] [place] [address] Ashley Eastman 04/08/2025 8:30 AM EST PACE Home Care / [facility] Visit [facility] [place] [facility] [address] [place] [phone] Carmen Hartmann 04/08/2025 4:30 PM EST PACE Home Care / [facility] Visit [facility] [place] [facility] [address] [place] [address] Ashley Eastman 04/09/2025 8:30 AM EST PACE Home Care / [facility] Visit [facility] [place] [facility] [address] [place] [phone] Carmen Hartmann 04/09/2025 4:30 PM EST PACE Home Care / [facility] Visit [facility] [place] [facility] [address] [place] [phone] Ashley Eastman 04/10/2025 8:30 AM EST PACE Home Care / PACE [facility] Visit [facility] [place] [facility] [address] [place] [phone] Carmen Hartmann 04/10/2025 9:00 AM EST P[facility] Attendance[facility] [place] [facility] [address] [place] [phone] 04/10/2025 4:30 PM EST PACE Home Care / [facility] Visit [facility] [place] [facility] [address] [place] [phone] Ashley Eastman 04/11/2025 8:00 AM EST [facility] Home Care / [facility] [place] [facility] [address] [place] [phone] Carmen Hartmann 04/11/2025 9:30 AM EST [facility] Home [facility] / [facility] [place] [facility] [address] [place] [phone] Ralph Loyola 04/11/2025 4:30 PM EST P[facility] Home Care / [facility] Visit [facility] [place] [facility] [address] [place] [phone] Ashley Eastman 04/12/2025 8:30 AM EST P[facility] Home Care / [facility] Visit [facility] [place] [facility] [address] [place] [phone] Marysol Diaz 04/12/2025 12:00 PM EST [facility] Home Care / [facility] Visit [facility] [place] [facility] [address] [place] [phone] Natali Sanford 04/12/2025 5:30 PM EST P[facility] Home Care / [facility] Visit [facility] [place] [facility] [address] [place] [phone] Marysol Diaz 04/15/2025 11:00 AM EST [facility] Visit [facility] [address] [place] [phone] Michelle Castillo MD [address] [place] [phone] Brigette East LPN 04/17/2025 9:00 AM EST PACE Attendance/[facility] [address] [place] [phone] 04/18/2025 10:00 AM EST Clinical Support [facility] [address] [place] [phone] Bethany Mccabe RN 04/24/2025 9:00 AM EST PACE Attendance/Day [facility] [address] [place] [phone] 04/24/2025 11:30 AM EST Clinical Support [facility] [address] [phone] 05/01/2025 9:00 AM EST PACE Attendance/Day [facility] [address] [place] [phone] 05/08/2025 9:00 AM EST PACE Attendance/Day Center [facility] [address] [place] [phone] 05/09/2025 10:00 AM EST Clinical Support [facility] [address] [place] [phone] Bethany Mccabe, HEIDI 05/13/2025 11:00 AM EST Office Visit [facility] [address] [phone] Michelle Castillo MD [address] [place] [phone] Brigette East LPN 05/15/2025 9:00 AM EST [facility] Attendance/[facility] [address] [place] [phone] 05/22/2025 9:00 AM EST PACE Attendance/Day Center [facility] [address] [place] [phone] 05/29/2025 9:00 AM EST PACE Attendance/Day Center [facility] [address] [place] [phone] 05/30/2025 10:00 AM EST Clinical Support [facility] [address] [phone] Bethany Mccabe, HEIDI 06/05/2025 9:00 AM EST PACE Attendance/Day Center [facility] [address] [place] [phone] 06/10/2025 11:00 AM EST Office Visit [facility] [address] [place] [phone] Michelle Castillo MD [address] [place] [address] [place] [address] Brigette East LPN 06/12/2025 9:00 AM EST PACE Attendance/Day Center [facility] Day Center [address] [place] [phone] 06/19/2025 9:00 AM EST PACE Attendance/Day Center [facility] Day Center [address] [place] [phone] 06/20/2025 10:00 AM EST Clinical Support [facility] [address] [place] [phone] Bethany Mccabe RN 06/26/2025 9:00 AM EDT PACE Attendance/Day Center [facility] Day [address] [phone] 06/27/2025 1:20 PM EDT Office Visit Gastroenterology - [address] [place] [phone] Analisa Perez, ALONSO [address] [place] [address] 07/03/2025 9:00 AM EDT PACE Attendance/Day Center [facility] Day [address] [phone] 07/10/2025 9:00 AM EDT PACE Attendance/Day Center [facility] P[facility] Day [address] [phone] 07/11/2025 10:00 AM EDT Clinical Support [address] [phone] Bethany Mccabe RN 07/17/2025 9:00 AM EDT PACE Attendance/Day Center [facility] PACE Day [address] [phone] 07/17/2025 3:30 PM EDT PACE External Visit [address] [place] [phone] 07/24/2025 9:00 AM EDT [facility] Attendance[facility] [facility] [place] [facility] [address] [place] [phone] 07/31/2025 9:00 AM EDT [facility] [address] [place] [phone] 08/01/2025 10:00 AM EDT Clinical [facility] [address] [place] [phone] Bethany Mccabe RN 08/07/2025 9:00 AM EDT [facility] Att[facility] [facility] [place] [facility] [address] [place] [phone] 08/14/2025 9:00 AM EDT [facility] Att[facility] [facility] [place] [facility] [address] [place] [phone] 08/21/2025 9:00 AM EDT [facility] Attendance[facility] [facility] [place] [facility] [address] [place] [phone] 08/22/2025 10:00 AM EDT Clinical Support [facility] [place] [facility] [address] [place] [phone] Bethany Mccabe RN 08/28/2025 9:00 AM EDT [facility] Att[facility] [facility] [place] [facility] [address] [place] [phone] 09/04/2025 9:00 AM EDT [facility] Att[facility] [facility] [place] [facility] [address] [place] [phone] 09/11/2025 9:00 AM EDT [facility] Att[facility] [facility] [place] [facility] [address] [place] [phone] 09/12/2025 10:00 AM EDT Clinical Support [facility] [place] [facility] [address] [place] [phone] Bethany Mccabe RN 09/18/2025 9:00 AM EDT [facility] Att[facility] [address] [place] [phone] 09/25/2025 9:00 AM EDT PACE Attendance/Day [facility] [address] [place] [phone] 10/02/2025 9:00 AM EDT [facility] Attendance[facility] [address] [place] [phone] 10/03/2025 10:00 AM EDT Clinical Support [facility] [address] [phone] Bethany Mccabe RN 10/09/2025 9:00 AM EDT PACE Attendance/[facility] [address] [phone] 10/24/2025 10:00 AM EDT Clinical Support [facility] [address] [phone] Bethany Mccabe RN 11/14/2025 10:00 AM EDT Clinical Support [facility] [address] [phone] Bethany Mccabe, HEIDI 12/05/2025 10:00 AM EDT Clinical Support [facility] [address] [phone] Bethany Mccabe, HEIDI 12/26/2025 10:00 AM EDT Clinical Support [facility] [address] [phone] Bethany Mccabe, HEIDI 01/16/2026 10:00 AM EDT Clinical Support [facility] [address] [phone] Bethany Mccabe RN 02/06/2026 10:00 AM EDT Clinical Support [address] [phone] Bethany Mccabe, RN 02/27/2026 10:00 AM EST Clinical Support [address] [phone] Bethany Mccabe, RN documented as of this encounter Visit Diagnoses Not on filedocumented in this encounter Additional Health Concerns Infection Onset Date Last Indicated Resolved Time Gastrointestinal Rule-Out 02/10/2025 02/10/2025 documented as of this encounter 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
--- OUTSIDE RECORDS SUMMARY | 2025-02-11 19:43 | XMS_ITS ---
Author Organization [facility] Address [address] [place] [address] Phone Care Team Providers Care Rental Counter Clerk Name Role Phone Regulo Ivy NP Primary Care Provider [phone] [facility] Status:Enrolled (Active) Start date:06/15/2024 Related program episode:Program of [facility]In[facility] the Elderly (Active) Case Team Name Relationship Phone Juliet Scott TILE DECORATOR(Responsible Staff) Nurse Frank titioner [phone] Continued Care and Services Coordination
--- OUTSIDE RECORDS SUMMARY | 2025-02-11 19:43 | XMS_ITS | Encounter Summary ---
Author Organization [facility] Address [address] [place] [address] Care Team Providers Care Fitness And Wellness Instructor Name Role Phone Regulo Ivy NP Primary Care Provider [phone] Encounter Details Date Type Department Care Team (Late st Contact Info) Description 08/26/2024 [facility] [address] [place] [phone] Jennie Dimas RN Social History Tobacco Use Types Packs/Day [...] In [facility] Nursing and Aide Services [address] [place] [address] Carmen Hartmann 02/12/2025 4:30 PM EDT PACE Home Care / P[facility] Home Visit [facility] [place] [facility] [address] [place] [phone] Ashley Eastman 02/13/2025 8:30 AM EDT PACE Home Care / PACE Home Visit [facility] [place] [facility] [address] [place] [phone] Carmen Hartmann 02/13/2025 9:00 AM EDT PACE Attendance/[facility] [place] [facility] [address] [place] [phone] 02/13/2025 4:30 PM EDT PACE Home Care / PACE Home Visit [facility] [place] [facility] [address] [place] [phone] Ashley Eastman 02/14/2025 8:00 AM EDT PACE Home Care / PACE Home Visit [facility] [place] [facility] [address] [place] [phone] Carmen Hartmann 02/14/2025 9:30 AM EDT PACE Home Care / PACE Home Visit [facility] [place] [facility] [address] [place] [phone] Ralph Loyola 02/14/2025 4:30 PM EDT PACE Home Care / PACE Home Visit [facility] [place] [facility] [address] [place] [phone] Ashley Eastman 02/15/2025 8:30 AM EDT PACE Home Care / P[facility] Home Visit [facility] [place] [facility] [address] [place] [phone] Marysol Diaz 02/15/2025 12:00 PM EDT PACE Home Care / [facility] Visit [facility] [place] [facility] [address] [place] [phone] Natali Sanford 02/15/2025 5:30 PM EDT PACE Home Care / [facility] Home Visit [facility] [place] [facility] [address] [place] [phone] Marysol Diaz 02/16/2025 8:30 AM EST PACE Home Care / [facility] Home Visit [facility] [place] [facility] [address] [place] [phone] Marysol Diaz 02/16/2025 12:00 PM EST PACE Home Care / [facility] Home Visit [facility] [place] [facility] [address] [place] [phone] Natali Sanford 02/16/2025 4:30 PM EST PACE Home Care / [facility] Home Visit [facility] [place] [facility] [address] [place] [phone] Marysol Diaz 02/16/2025 5:30 PM EST PACE Home Care / [facility] Home Visit [facility] [place] [facility] [address] [place] [phone] Marysol Diaz 02/17/2025 8:30 AM EST PACE Home Care / [facility] Home Visit [facility] [place] [facility] [address] [place] [phone] Carmen Hartmann 02/17/2025 11:00 AM EST [facility] Visit [facility] [place] [facility] [address] [place] [phone] Michelle Castillo MD [address] [place] [phone] 02/17/2025 4:30 PM EST PACE Home Care / [facility] Home Visit [facility] [place] [facility] [address] [place] [phone] Ashley Eastman 02/18/2025 8:30 AM EST PACE Home Care / PACE Home Visit [facility] [place] [facility] [address] [place] [phone] Carmen Hartmann 02/18/2025 11:00 AM EST Office Visit [facility] [place] [facility] [address] [place] [phone] Michelle Castillo MD [address] [address] Brigette East LPN 02/18/2025 4:30 PM EST PACE Home Care / PACE Home Visit [facility] [place] [facility] [address] [place] [phone] Ashley Eastman 02/19/2025 8:30 AM EST PACE Home Care / PACE Home Visit [facility] [place] [facility] [address] [place] [phone] Carmen Hartmann 02/19/2025 4:30 PM EST PACE Home Care / [facility] Visit [facility] [place] [facility] [address] [place] [phone] Ashley Eastman 02/20/2025 8:30 AM EST PACE Home Care / PACE Home Visit [facility] [place] [facility] [address] [place] [phone] Carmen Hartmann 02/20/2025 9:00 AM EST [facility] Attendance[facility] [place] [facility] [address] [place] [phone] 02/20/2025 4:30 PM EST PACE Home Care / [facility] Visit [facility] [place] [facility] [address] [place] [phone] Ashley Eastman 02/21/2025 8:00 AM EST PACE Home Care / [facility] Home Visit [facility] [place] [facility] [address] [place] [address] Carmen Hartmann 02/21/2025 9:30 AM EST PACE Home Care / [place] Home Visit [facility] [place] [facility] [address] [place] [phone] Ralph Loyola 02/21/2025 4:30 PM EST PACE Home Care / [place] Home Visit [facility] [place] [facility] [address] [place] [phone] Ashley Eastman 02/22/2025 12:00 PM EST PACE Home Care / [place] Home Visit [facility] [place] [facility] [address] [place] [phone] Dena Chavez 02/23/2025 12:00 PM EST PACE Home Care / [place] Home Visit [facility] [place] [facility] [address] [place] [phone] Dena Chavez 02/24/2025 8:30 AM EST PACE Home Care / [place] Home Visit [facility] [place] [facility] [address] [place] [phone] Carmen Hartmann 02/24/2025 4:30 PM EST PACE Home Care / [place] Home Visit [facility] [place] [facility] [address] [place] [phone] Ashley Eastman 02/25/2025 8:30 AM EST PACE Home Care / [place] Home Visit [facility] [place] [facility] [address] [place] [phone] Carmen Hartmann 02/25/2025 4:30 PM EST PACE Home Care / [place] Home Visit [facility] [place] [facility] [address] [place] [phone] Ashley Eastman 02/26/2025 8:30 AM EST PACE Home Care / [facility] Home Visit [facility] [place] [facility] [address] [place] [address] Carmen Hartmann 02/26/2025 4:30 PM EST PACE Home Care / [place] Home Visit [facility] [place] [facility] [address] [place] [address] Ashley Eastman 02/27/2025 8:30 AM EST PACE Home Care / [place] Home Visit [facility] [place] [facility] [address] [place] [address] Carmen Hartmann 02/27/2025 9:00 AM EST [facility] [facility] [place] [facility] [address] [place] [address] 02/27/2025 4:30 PM EST PACE Home Care / [place] Home Visit [facility] [place] [facility] [address] [place] [address] Ashley Eastman 02/28/2025 8:00 AM EST PACE Home Care / [place] Home Visit [facility] [place] [facility] [address] [place] [phone] Carmen Hartmann 02/28/2025 9:30 AM EST PACE Home Care / [place] Home Visit [facility] [place] [facility] [address] [place] [address] Ralph Loyola 02/28/2025 4:30 PM EST PACE Home Care / [place] Home Visit [facility] [place] [facility] [address] [place] [phone] Ashley Eastman 03/01/2025 8:30 AM EST PACE Home Care / [place] Home Visit [facility] [place] [facility] [address] [place] [phone] Marysol Diaz 03/01/2025 12:00 PM EST PACE Home Care / [place] Home Visit [facility] [place] [facility] [address] [place] [address] Natali Sanford 03/01/2025 5:30 PM EST PACE Home Care / [place] Home Visit [facility] [place] [facility] [address] [place] [address] Marysol Diaz 03/02/2025 8:30 AM EST PACE Home Care / [place] Home Visit [facility] [place] [facility] [address] [place] [phone] Marysol Diaz 03/02/2025 12:00 PM EST PACE Home Care / [place] Home Visit [facility] [place] [facility] [address] [place] [phone] Natali Sanford 03/02/2025 4:30 PM EST PACE Home Care / [place] Home Visit [facility] [place] [facility] [address] [place] [phone] Marysol Diaz 03/02/2025 5:30 PM EST PACE Home Care / [place] Home Visit [facility] [place] [facility] [address] [place] [phone] Marysol Diaz 03/03/2025 8:30 AM EST PACE Home Care / [facility] Home Visit [facility] [place] [facility] [address] [place] [phone] Carmen Hartmann 03/03/2025 4:30 PM EST PACE Home Care / [place] Home Visit [facility] [place] [facility] [address] [place] [phone] Ashley Eastman 03/04/2025 8:30 AM EST PACE Home Care / [place] Home Visit [facility] [place] [facility] [address] [place] [phone] Carmen Hartmann 03/04/2025 4:30 PM EST PACE Home Care / PACE Home Visit [facility] [place] [facility] [address] [place] [address] Ashley Eastman 03/05/2025 8:30 AM EST PACE Home Care / PACE Home Visit [facility] [place] [facility] [address] [place] [address] Carmen Hartmann 03/05/2025 4:30 PM EST PACE Home Care / PACE Home Visit [facility] [address] [place] [address] Ashley Eastman 03/06/2025 8:30 AM EST PACE Home Care / PACE Home Visit [facility] [place] [facility] [address] [place] [address] Carmen Hartmann 03/06/2025 9:00 AM EST [facility] Attendance[facility] [place] [facility] [address] [place] [address] 03/06/2025 4:30 PM EST PACE Home Care / PACE Home Visit [facility] [place] [facility] [address] [place] [phone] Ashley Eastman 03/07/2025 Lab [facility] Occupational Therapy [address] [place] [address] Clemencia Napier, OT Schizophrenia in partial remission with history of multiple episodes (CMS/HCC V24, CMS/HCC V28) 03/07/2025 8:00 AM EST PACE Home Care / PACE Home Visit [facility] [address] [place] [address] Carmen Hartmann 03/07/2025 9:00 AM EST Clinical Support [facility] [place] [facility] [address] [place] [address] Bethany Mccabe RN 03/07/2025 9:30 AM EST PACE Home Care / [facility] Home Visit [facility] [place] [facility] [address] [place] [address] Ralph Loyola 03/07/2025 4:30 PM EST PACE Home Care / [facility] Home Visit [facility] [place] [facility] [address] [place] [phone] Ashley Eastman 03/08/2025 12:00 PM EST PACE Home Care / [facility] Home Visit [facility] [place] [facility] [address] [place] [phone] Dena Chavez 03/09/2025 12:00 PM EST PACE Home Care / [facility] Home Visit [facility] [place] [facility] [address] [place] [phone] Dena Chavez 03/10/2025 8:30 AM EST PACE Home Care / [facility] Home Visit [facility] [place] [facility] [address] [place] [phone] Carmen Hartmann 03/10/2025 4:30 PM EST PACE Home Care / [facility] Home Visit [facility] [place] [facility] [address] [place] [phone] Ashley Eastman 03/11/2025 8:30 AM EST PACE Home Care / [facility] Home Visit [facility] [place] [facility] [address] [place] [phone] Carmen Hartmann 03/11/2025 4:30 PM EST PACE Home Care / [place] Home Visit [facility] [place] [facility] [address] [place] [phone] Ashley Eastman 03/12/2025 8:30 AM EST PACE Home Care / [place] Home Visit [facility] [place] [facility] [address] [place] [phone] Carmen Hartmann 03/12/2025 4:30 PM EST PACE Home Care / [facility] Home Visit [facility] [place] [facility] [address] [place] [address] Ashley Eastman 03/13/2025 8:30 AM EST PACE Home Care / [facility] Home Visit [facility] [place] [facility] [address] [place] [address] Carmen Hartmann 03/13/2025 9:00 AM EST P[facility] Attendance[facility] [facility] [place] [facility] [address] [place] [address] 03/13/2025 4:30 PM EST PACE Home Care / [place] Home Visit [facility] [place] [facility] [address] [place] [phone] Ashley Eastman 03/14/2025 8:00 AM EST PACE Home Care / [facility] Home Visit [facility] [place] [facility] [address] [place] [phone] Carmen Hartmann 03/14/2025 9:30 AM EST PACE Home Care / [place] Home Visit [facility] [place] [facility] [address] [place] [phone] Ralph Loyola 03/14/2025 4:30 PM EST PACE Home Care / [facility] [facility] Visit [facility] [place] [facility] [address] [place] [phone] Ashley Eastman 03/15/2025 8:30 AM EST PACE Home Care / [facility] Home Visit [facility] [place] [facility] [address] [place] [phone] Marysol Diaz 03/15/2025 12:00 PM EST PACE Home Care / [facility] Home Visit [facility] [place] [facility] [address] [place] [phone] Natali Sanford 03/15/2025 5:30 PM EST PACE Home Care / [facility] [facility] Visit [facility] [place] [facility] [address] [place] [phone] Marysol Diaz 03/16/2025 8:30 AM EST PACE Home Care / [facility] [facility] Visit [facility] [place] [facility] [address] [place] [phone] Marysol Diaz 03/16/2025 12:00 PM EST PACE Home Care / [facility] [facility] Visit [facility] [place] [facility] [address] [place] [phone] Natali Sanford 03/16/2025 4:30 PM EST PACE Home Care / [facility] [facility] Visit [facility] [place] [facility] [address] [place] [phone] Marysol Diaz 03/16/2025 5:30 PM EST PACE Home Care / [facility] Visit [facility] [place] [facility] [address] [place] [phone] Marysol Diaz 03/17/2025 8:30 AM EST PACE Home Care / [facility] Visit [facility] [place] [facility] [address] [place] [phone] Carmen Hartmann 03/17/2025 4:30 PM EST PACE Home Care / [facility] Visit [facility] [place] [facility] [address] [place] [phone] Ashley Eastman 03/18/2025 8:30 AM EST PACE Home Care / [facility] Home Visit [facility] [place] [facility] [address] [place] [phone] Carmen Hartmann 03/18/2025 11:00 AM EST Office Visit [facility] [place] [facility] [address] [place] [phone] Michelle Castillo MD [address] [place] [address] Brigette East LPN 03/18/2025 4:30 PM EST PACE Home Care / [facility] Home Visit [facility] [place] [facility] [address] [place] [address] Ashley Eastman 03/19/2025 8:30 AM EST PACE Home Care / [facility] Home Visit [facility] [place] [facility] [address] [place] [address] Carmen Hartmann 03/19/2025 4:30 PM EST PACE Home Care / [facility] Visit [facility] [place] [facility] [address] [place] [address] Ashley Eastman 03/20/2025 8:30 AM EST PACE Home Care / [facility] Visit [facility] [place] [facility] [address] [place] [address] Carmen Hartmann 03/20/2025 9:00 AM EST [facility] [facility] [facility] [place] [facility] [address] [place] [address] 03/20/2025 4:30 PM EST PACE Home Care / [facility] [facility] Visit [facility] [place] [facility] [address] [place] [address] Ashley Eastman 03/21/2025 8:00 AM EST PACE Home Care / [facility] Visit [facility] [place] [facility] [address] [place] [address] Carmen Hartmann 03/21/2025 9:30 AM EST PACE Home Care / [facility] Visit [facility] [place] [facility] [address] [place] [address] Ralph Loyola 03/21/2025 4:30 PM EST PACE Home Care / [facility] Visit [facility] [place] [facility] [address] [place] [address] Ashley Eastman 03/22/2025 12:00 PM EST PACE Home Care / [facility] Visit [facility] [place] [facility] [address] [place] [address] Dena Chavez 03/23/2025 12:00 PM EST PACE Home Care / [facility] Visit [facility] [place] [facility] [address] [place] [address] Dena Chavez 03/24/2025 8:30 AM EST PACE Home Care / [facility] [facility] Visit [facility] [place] [facility] [address] [place] [address] Carmen Hartmann 03/24/2025 9:45 AM EST Appointment [address] [phone] Lakia Hou, [facility]-BALANCE ENGINEER 03/24/2025 4:30 PM EST PACE Home Care / [facility] Visit [facility] [place] [facility] [address] [place] [address] Ashley Eastman 03/25/2025 8:30 AM EST PACE Home Care / [facility] Visit [facility] [place] [facility] [address] [place] [phone] Carmen Hartmann 03/25/2025 4:30 PM EST PACE Home Care / [facility] Visit [facility] [place] [facility] [address] [place] [phone] Ashley Eastman 03/26/2025 8:30 AM EST PACE Home Care / [facility] Home Visit [facility] [place] [facility] [address] [place] [phone] Carmen Hartmann 03/26/2025 4:30 PM EST PACE Home Care / [facility] Visit [facility] [place] [facility] [address] [place] [phone] Ashley Eastman 03/27/2025 8:30 AM EST PACE Home Care / [facility] Visit [facility] [place] [facility] [address] [place] [address] Carmen Hartmann 03/27/2025 9:00 AM EST [facility] Attendance[facility] [place] [facility] [address] [place] [address] 03/27/2025 2:40 PM EST Clinical Support [facility] [place] [address] [place] [address] 03/27/2025 4:30 PM EST PACE Home Care / PACE Home Visit [facility] [address] [place] [address] Ashley Eastman 03/28/2025 8:00 AM EST PACE Home Care / PACE Home Visit [facility] [address] [place] [address] Carmen Hartmann 03/28/2025 10:00 AM EST Clinical Support [facility] [place] [facility] [address] [place] [address] Bethany Mccabe RN 03/28/2025 4:30 PM EST PACE Home Care / PACE Home Visit [facility] [address] [place] [phone] Ashley Eastman 03/29/2025 8:30 AM EST PACE Home Care / PACE Home Visit [facility] [address] [place] [address] Marysol Diaz 03/29/2025 12:00 PM EST PACE Home Care / [facility] Visit [facility] [place] [facility] [address] [place] [phone] Natali Sanford 03/29/2025 5:30 PM EST PACE Home Care / [facility] Visit [facility] [place] [facility] [address] [place] [address] Marysol Diaz 03/30/2025 8:30 AM EST PACE Home Care / [facility] Visit [facility] [place] [facility] [address] [place] [address] Marysol Diaz 03/30/2025 12:00 PM EST PACE Home Care / [facility] Visit [facility] [place] [facility] [address] [place] [phone] Natali Sanford 03/30/2025 4:30 PM EST PACE Home Care / [facility] Visit [facility] [place] [facility] [address] [place] [phone] Marysol Diaz 03/30/2025 5:30 PM EST PACE Home Care / [facility] Visit [facility] [place] [facility] [address] [place] [phone] Marysol Diaz 03/31/2025 8:30 AM EST PACE Home Care / [facility] [place] [facility] [address] [place] [phone] Carmen Hartmann 03/31/2025 4:30 PM EST PACE Home Care / [facility] [place] [facility] [address] [place] [phone] Ashley Eastman 04/01/2025 8:30 AM EST PACE Home Care / [facility] [place] [facility] [address] [place] [phone] Carmen Hartmann 04/01/2025 1:15 PM EST [facility] [facility] Visit [facility] [place] [address] [place] [address] 04/01/2025 4:30 PM EST PACE Home Care / [facility] [facility] [place] [facility] [address] [place] [phone] Ashley Eastman 04/02/2025 8:30 AM EST PACE Home Care / [facility] [facility] Visit [facility] [place] [facility] [address] [place] [address] Carmen Hartmann 04/02/2025 4:30 PM EST PACE Home Care / [facility] Visit [facility] [place] [facility] [address] [place] [address] Ashley Eastman 04/03/2025 8:30 AM EST PACE Home Care / [facility] Visit [facility] [place] [facility] [address] [place] [address] Carmen Hartmann 04/03/2025 9:00 AM EST [facility] Att[facility] [place] [facility] [address] [place] [address] 04/03/2025 4:30 PM EST PACE Home Care / [facility] Visit [facility] [place] [facility] [address] [place] [address] Ashley Eastman 04/04/2025 8:00 AM EST PACE Home Care / [facility] Visit [facility] [place] [facility] [address] [place] [address] Carmen Hartmann 04/04/2025 9:30 AM EST PACE Home Care / [facility] Visit [facility] [place] [facility] [address] [place] [address] Ralph Loyola 04/04/2025 4:30 PM EST PACE Home Care / [facility] Visit [facility] [place] [facility] [address] [place] [address] Ashley Eastman 04/05/2025 12:00 PM EST PACE Home Care / [facility] Visit [facility] [place] [facility] [address] [place] [address] Dena Chavez 04/06/2025 12:00 PM EST PACE Home Care / [facility] Visit [facility] [place] [facility] [address] [place] [address] Dena Chavez 2025 8:30 AM EST P[facility] Home Care / [facility] [place] [facility] [address] [place] [address] Carmen Hartmann 2025 4:30 PM EST PACE Home Care / [facility] [place] [facility] [address] [place] [address] Ashley Eastman 04/08/2025 8:30 AM EST PACE Home Care / [facility] [place] [facility] [address] [place] [phone] Carmen Hartmann 04/08/2025 4:30 PM EST PACE Home Care / [facility] [place] [facility] [address] [place] [phone] Ashley Eastman 04/09/2025 8:30 AM EST PACE Home Care / [facility] [place] [facility] [address] [place] [phone] Carmen Hartmann 04/09/2025 4:30 PM EST PACE Home Care / [facility] [place] [facility] [address] [place] [phone] Ashley Eastman 04/10/2025 8:30 AM EST PACE Home Care / [facility] [facility] [place] [facility] [address] [place] [phone] Carmen Hartmann 04/10/2025 9:00 AM EST [facility] Att[facility] [facility] [place] [facility] [address] [place] [address] 04/10/2025 4:30 PM EST PACE Home Care / [facility] [facility] [place] [facility] [address] [place] [phone] Ashley Eastman 04/11/2025 8:00 AM EST PACE Home Care / [facility] Visit [facility] [place] [facility] [address] [place] [phone] Carmen Hartmann 04/11/2025 9:30 AM EST PACE Home Care / [facility] Visit [facility] [place] [facility] [address] [place] [phone] Ralph Loyola 04/11/2025 4:30 PM EST PACE Home Care / [facility] Visit [facility] [place] [facility] [address] [place] [phone] Ashley Eastman 04/12/2025 8:30 AM EST PACE Home Care / [facility] Visit [facility] [place] [facility] [address] [place] [phone] Marysol Diaz 04/12/2025 12:00 PM EST PACE Home Care / [facility] Visit [facility] [place] [facility] [address] [place] [phone] Natali Sanford 04/12/2025 5:30 PM EST PACE Home Care / [facility] Visit [facility] [place] [facility] [address] [place] [phone] Marysol Diaz 04/15/2025 11:00 AM EST Office Visit [facility] [place] [facility] [address] [place] [address] Michelle Castillo MD [address] [place] [address] Brigette East LPN 04/17/2025 9:00 AM EST P[facility] Att[facility] [facility] [place] [facility] [address] [place] [address] 04/18/2025 10:00 AM EST Clinical Support [facility] [place] [facility] [address] [address] Bethany Mccabe RN 04/24/2025 9:00 AM EST PACE Attendance/Day Center [facility] PACE Day [address] [address] 04/24/2025 11:30 AM EST Clinical Support [address] [address] 05/01/2025 9:00 AM EST PACE Attendance/Day Center [facility] PACE Day [address] [address] 05/08/2025 9:00 AM EST PACE Attendance/Day Center [facility] PACE Day [address] [address] 05/09/2025 10:00 AM EST Clinical Support [facility]ACE [address] [address] Bethany Mccabe RN 05/13/2025 11:00 AM EST Office Visit [address] [phone] Michelle Castillo MD [address] [place] [address] Brigette East LPN 05/15/2025 9:00 AM EST PACE Attendance/Day Center [facility] PACE Day [address] [address] 05/22/2025 9:00 AM EST PACE Attendance/Day Center [facility] PACE Day [address] [address] 05/29/2025 9:00 AM EST PACE Attendance/Day Center [facility] PACE Day [address] [address] 05/30/2025 10:00 AM EST Clinical Support [facility] [address] [address] Bethany Mccabe RN 06/05/2025 9:00 AM EST PACE Attendance/Day Center [facility] PACE Day Center [address] [place] [phone] 06/10/2025 11:00 AM EST Office Visit [address] [phone] Michelle Castillo MD [address] [place] [address] Brigette East LPN 06/12/2025 9:00 AM EST PACE Attendance/Day Center [facility] Day [address] [address] 06/19/2025 9:00 AM EST PACE Attendance/Day Center [facility] Day [address] [address] 06/20/2025 10:00 AM EST Clinical Support [address] [address] Bethany Mccabe RN 06/26/2025 9:00 AM EDT PACE Attendance/Day Center [address] [address] 06/27/2025 1:20 PM EDT Office Visit Gastroenterology - [address] [place] [phone] Analisa Perez NP [address] [place] [address] 07/03/2025 9:00 AM EDT PACE Attendance/Day Center [facility] Day [address] [address] 07/10/2025 9:00 AM EDT PACE Attendance/Day Center [facility] PACE Day [address] [address] 07/11/2025 10:00 AM EDT Clinical Support [facility] [place] [facility] [address] [place] [address] Bethany Mccabe RN 07/17/2025 9:00 AM EDT PACE Attendance/[place] [facility] [place] [facility] [address] [place] [address] 07/17/2025 3:30 PM EDT PACE External Visit [facility] [place] [address] [place] [address] 07/24/2025 9:00 AM EDT PACE Attendance/[place] [facility] [place] [facility] Day [address] [address] 07/31/2025 9:00 AM EDT PACE Attendance/Day [place] [facility] [place] [facility] [address] [place] [phone] 08/01/2025 10:00 AM EDT Clinical Support [facility] [place] [facility] [address] [address] Bethany Mccabe RN 08/07/2025 9:00 AM EDT PACE Attendance/[place] [facility] [place] [facility] Day [address] [address] 08/14/2025 9:00 AM EDT PACE Attendance/[place] [facility] [place] [facility] [address] [place] [phone] 08/21/2025 9:00 AM EDT PACE Attendance/[place] [facility] [place] [facility] [address] [place] [phone] 08/22/2025 10:00 AM EDT Clinical Support [facility] [place] [facility] [address] [place] [phone] Bethany Mccabe RN 08/28/2025 9:00 AM EDT PACE Attendance/Day [place] [facility] [place] [facility] Day [address] [address] 09/04/2025 9:00 AM EDT PACE Attendance/[place] [facility] [place] [facility] [address] [place] [phone] 09/11/2025 9:00 AM EDT PACE Attendance/[facility] [place] [facility] [address] [place] [address] 09/12/2025 10:00 AM EDT Clinical Support [facility] [place] [facility] [address] [place] [phone] Bethany Mccabe RN 09/18/2025 9:00 AM EDT [facility] [address] [place] [address] 09/25/2025 9:00 AM EDT [facility] [place] [facility] [address] [place] [phone] 10/02/2025 9:00 AM EDT PACE Attendance/[place] [facility] [place] [facility] [address] [place] [address] 10/03/2025 10:00 AM EDT Clinical Support [facility] [place] [facility] [address] [address] Bethany Mccabe RN 10/09/2025 9:00 AM EDT PACE Attendance/Day [place] [facility] [place] [facility] Day [address] [address] 10/24/2025 10:00 AM EDT Clinical Support [facility] [place] [facility] [address] [address] Bethany Mccabe, HEIDI 11/14/2025 10:00 AM EDT Clinical Support [facility] [address] [address] Bethany Mccabe, RN 12/05/2025 10:00 AM EDT Clinical Support [facility] [place] [facility] [address] [address] Bethany Mccabe, HEIDI 12/26/2025 10:00 AM EDT Clinical Support [address] [address] Bethany Mccabe RN 01/16/2026 10:00 AM EDT Clinical Support [address] [address] Bethany Mccabe RN 02/06/2026 10:00 AM EDT Clinical Support [address] [address] Bethany Mccabe RN 02/27/2026 10:00 AM EST Clinical Support [address] [address] Bethany Mccabe RN documented as of this encounter Visit Diagnoses Not on filedocumented in this encounter Additional Health Concerns Infection Onset Date Last Indicated Resolved Time Gastrointestinal Rule-Out 02/10/2025 02/10/2025 documented as of this encounter Care Teams Fitness And Wellness Instructor Relationship Specialty Start Date End Date Regulo Ivy NP [address] [place] [id number] PCP - General KELLI 06/07/24 documented as of this encounter
--- OUTSIDE RECORDS SUMMARY | 2025-02-11 19:43 | XMS_ITS ---
Author Organization [facility] Address [address] [place] [address] Phone Care Team Providers Care Extrusion Engineer Name Role Phone Regulo Ivy NP Primary Care Provider [phone] Program of [facility] the Elder[facility] Status:Enrolled (Active) Start date:10/15/2022 Enrollment date:10/15/2022 Related social drivers of health:Housing Instability, Financial Risk, Transportation, Social Isolation, Food Risk Related service episodes:[facility] Home Health Aide Services (Active) Overview This episode will track PACE documentation. Case Team Name Relationship Phone Regulo Ivy P[employer]LING [employer]KER Nurse Practitioner [phone] Thanh Espinoza Recreational Therapist 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 RN Carbide Grinder Celsa Perez touch up painter handCarbide Grinder Kay Grijalva CUSTODIAL FOREMAN Help Desk Representative Sanjeev Fung OT Occupational Therapist Donta Mccabe RN Registered Nurse Melvi Early RD Dietitian Rosaura Mauro PT Physical Therapist Bladimir Anderson Orange Vehicle Return Associate Obed Solorzano PROCESS DESIGN ENGINEER Product Tester Fiberglass Maddie Hanks touch up painter handCarbide Grinder Bernie Segovia RN Registered Nurse Shantal Jimenez Product Tester Fiberglass Marielos Retana[facility]isa [facility] Product Tester Fiberglass Mynor Padron Spiritual Care Alexandra Kumari PT Physical Therapist Clemencia Napier OT Occupational Therapist Eva Baxter POLITICAL GEOGRAPHER Product Tester Fiberglass Chava Singh PT Physical Therapist Michelle Castillo MD Primary Care Provider [phone] Continued Care and Services Coordination
--- OUTSIDE RECORDS SUMMARY | 2025-02-11 19:43 | XMS_ITS | Encounter Summary ---
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 Елена had been hearing voices of both 'Bernardino' and now 'Bladimir'. We added very low doses of Olanzapine 2.5mg on Monday08/16/24, and 5mg BID. Елена opened the door, used only her cane, but no overt balance problems. (She usually uses her walker outside her apartment). She said that she did not hear voices now. We can resume her normal dose of olanzapine. 08/19/24: called her niece, Johanna, to let her know of recent changes that she had noted, in addition to our staff, and my home visits, and interval increase of meds. Johanna was very reassured. Advised Johanna to always call the clinic, relay any changes/concerns to Елена Pritchett's nurse, Bethany, who will let me and PCP know of Елена's change in condition. Johanna acknowledged advisory. I will see her in clinic this week, and weekly until she is back to her baseline. Then Q2 weeks. documented in this encounter Plan of Treatment Upcoming Encounters Date Type Department Care Team (Latest Contact Info) Description 02/12/2025 8:30 AM EDT PACE Home Care / [facility] [address] [place] [phone] Carmen Hartmann 02/12/2025 4:30 PM EDT PACE Home Care / [facility] Home [facility] [address] [place] [phone] Ashley Eastman 02/13/2025 8:30 AM EDT PACE Home Care / [facility] Home Visit [facility] [address] [place] [address] Carmen Hartmann 02/13/2025 9:00 AM EDT [facility] Attend[facility] [place] [facility] [address] [place] [address] 02/13/2025 4:30 PM EDT PACE Home Care / P[facility] Home Visit [facility] [address] [place] [address] Ashley Eastman 02/14/2025 8:00 AM EDT PACE Home Care / [facility] Home Visit [facility] [address] [place] [phone] Carmen Hartmann 02/14/2025 9:30 AM EDT PACE Home Care / [facility] [address] [place] [phone] Ralph Loyola 02/14/2025 4:30 PM EDT PACE Home Care / [facility] Home Visit [facility] [address] [place] [phone] Ashley Eastman 02/15/2025 8:30 AM EDT PACE Home Care / [facility] [address] [place] [phone] Marysol Diaz 02/15/2025 12:00 PM EDT PACE Home Care / [facility] [address] [place] [phone] Natali Sanford 02/15/2025 5:30 PM EDT PACE Home Care / [facility] [place] [facility] [address] [place] [phone] Marysol Diaz 02/16/2025 8:30 AM EST PACE Home Care / P[facility] Home Visit [facility] [address] [place] [address] Marysol Diaz 02/16/2025 12:00 PM EST PACE Home Care / P[facility] Home Visit [facility] [address] [place] [phone] Natali Sanford 02/16/2025 4:30 PM EST PACE Home Care / P[facility] Home Visit [facility] [address] [place] [phone] Marysol Diaz 02/16/2025 5:30 PM EST PACE Home Care / [facility] Home Visit [facility] [address] [place] [phone] Marysol Diaz 02/17/2025 8:30 AM EST PACE Home Care / P[facility] Home Visit [facility] [address] [place] [phone] Carmen Hartmann 02/17/2025 11:00 AM EST [facility] [place] [facility] [address] [place] [phone] Michelle Castillo MD [address] [place] [address] 02/17/2025 4:30 PM EST PACE Home Care / P[facility] Home Visit [facility] [address] [place] [phone] Ashley Eastman 02/18/2025 8:30 AM EST PACE Home Care / [facility] [place] [facility] [address] [place] [phone] Carmen Hartmann 02/18/2025 11:00 AM EST [facility] [place] [facility] [address] [place] [address] Michelle Castillo MD [address] [place] [address] Brigette East LPN 02/18/2025 4:30 PM EST PACE Home Care / [facility] [address] [place] [phone] Ashley Eastman 02/19/2025 8:30 AM EST PACE Home Care / [facility] [address] [place] [phone] Carmen Hartmann 02/19/2025 4:30 PM EST PACE Home Care / [facility] [place] [facility] [address] [place] [phone] Ashley Eastman 02/20/2025 8:30 AM EST PACE Home Care / [facility] [place] [facility] [address] [place] [phone] Carmen Hartmann 02/20/2025 9:00 AM EST [facility] [facility] [place] [facility] [address] [place] [phone] 02/20/2025 4:30 PM EST PACE Home Care / [facility] [place] [facility] [address] [place] [phone] Ashley Eastman 02/21/2025 8:00 AM EST PACE Home Care / [facility] [place] [facility] [address] [place] [phone] Carmen Hartmann 02/21/2025 9:30 AM EST PACE Home Care / [facility] [place] [facility] [address] [place] [phone] Ralph Loyola 02/21/2025 4:30 PM EST PACE Home Care / [facility] [place] [facility] [address] [place] [phone] Ashley Eastman 02/22/2025 12:00 PM EST PACE Home Care / [facility] [place] [facility] [address] [place] [address] Dena Chavez 02/23/2025 12:00 PM EST PACE Home Care / [facility] [place] [facility] [address] [place] [phone] Dena Chavez 02/24/2025 8:30 AM EST PACE Home Care / [facility] [place] [facility] [address] [place] [phone] Carmen Hartmann 02/24/2025 4:30 PM EST PACE Home Care / [facility] [place] [facility] [address] [place] [phone] Ashley Eastman 02/25/2025 8:30 AM EST PACE Home Care / [facility] [address] [place] [phone] Carmen Hartmann 02/25/2025 4:30 PM EST PACE Home Care / [facility] [address] [place] [phone] Ashley Eastman 02/26/2025 8:30 AM EST PACE Home Care / [facility] [place] [facility] [address] [place] [phone] Carmen Hartmann 02/26/2025 4:30 PM EST PACE Home Care / [facility] [place] [facility] [address] [place] [phone] Ashley Eastman 02/27/2025 8:30 AM EST PACE Home Care / [facility] [place] [facility] [address] [place] [address] Carmen Hartmann 02/27/2025 9:00 AM EST [facility] [facility] [place] [facility] [address] [place] [address] 02/27/2025 4:30 PM EST PACE Home Care / [facility] [place] [facility] [address] [place] [phone] Ashley Eastman 02/28/2025 8:00 AM EST PACE Home Care / [facility] [place] [facility] [address] [place] [phone] Carmen Hartmann 02/28/2025 9:30 AM EST PACE Home Care / [facility] [place] [facility] [address] [place] [phone] Ralph Loyola 02/28/2025 4:30 PM EST PACE Home Care / [facility] [place] [facility] [address] [place] [phone] Ashley Eastman 03/01/2025 8:30 AM EST PACE Home Care / [facility] [address] [place] [phone] Marysol Diaz 03/01/2025 12:00 PM EST PACE Home Care / [facility] [address] [place] [phone] Natali Sanford 03/01/2025 5:30 PM EST PACE Home Care / [facility] [address] [place] [phone] Marysol Diaz 03/02/2025 8:30 AM EST PACE Home Care / [facility] [place] [facility] [address] [place] [phone] Marysol Diaz 03/02/2025 12:00 PM EST PACE Home Care / [facility] [place] [facility] [address] [place] [phone] Natali Sanford 03/02/2025 4:30 PM EST PACE Home Care / [facility] [address] [place] [phone] Marysol Diaz 03/02/2025 5:30 PM EST PACE Home Care / [facility] [address] [place] [phone] Marysol Diaz 03/03/2025 8:30 AM EST PACE Home Care / [facility] [address] [place] [phone] Carmen Hartmann 03/03/2025 4:30 PM EST PACE Home Care / [facility] [address] [place] [phone] Ashley Eastman 03/04/2025 8:30 AM EST PACE Home Care / [facility] [address] [place] [phone] Carmen Hartmann 03/04/2025 4:30 PM EST PACE Home Care / [facility] [address] [place] [phone] Ashley Eastman 03/05/2025 8:30 AM EST PACE Home Care / [facility] [address] [place] [phone] Carmen Hartmann 03/05/2025 4:30 PM EST PACE Home Care / [facility] [address] [place] [phone] Ashley Eastman 03/06/2025 8:30 AM EST PACE Home Care / [facility] [address] [place] [phone] Carmen Hartmann 03/06/2025 9:00 AM EST [facility] [place] [facility] [address] [place] [address] 03/06/2025 4:30 PM EST PACE Home Care / [facility] Home Visit [facility] [address] [place] [phone] Ashley Eastman 03/07/2025 Lab [facility] Occupational Therapy [address] [place] [phone] Clemencia Napier, OT Schizophrenia in partial remission with history of multiple episodes (CMS/HCC V24, CMS/HCC V28) 03/07/2025 8:00 AM EST PACE Home Care / PACE Home Visit [facility] [address] [place] [phone] Carmen Hartmann 03/07/2025 9:00 AM EST Clinical Support [facility] [place] [facility] [address] [place] [phone] Bethany Mccabe RN 03/07/2025 9:30 AM EST PACE Home Care / P[facility] Home Visit [facility] [address] [place] [phone] Ralph Loyola 03/07/2025 4:30 PM EST PACE Home Care / P[facility] Visit [facility] [address] [place] [phone] Ashley Eastman 03/08/2025 12:00 PM EST PACE Home Care / [facility] [address] [place] [phone] Dena Chavez 03/09/2025 12:00 PM EST PACE Home Care / [facility] [address] [place] [address] Dena Chavez 03/10/2025 8:30 AM EST PACE Home Care / [facility] [address] [place] [phone] Carmen Hartmann 03/10/2025 4:30 PM EST PACE Home Care / [facility] [place] [facility] [address] [place] [phone] Ashley Eastman 03/11/2025 8:30 AM EST PACE Home Care / [facility] [address] [place] [phone] Carmen Hartmann 03/11/2025 4:30 PM EST PACE Home Care / [facility] [address] [place] [phone] Ashley Eastman 03/12/2025 8:30 AM EST PACE Home Care / [facility] Visit [facility] [address] [place] [phone] Carmen Hartmann 03/12/2025 4:30 PM EST PACE Home Care / [facility] [address] [place] [phone] Ashley Eastman 03/13/2025 8:30 AM EST PACE Home Care / [facility] [place] [facility] [address] [place] [phone] Carmen Hartmann 03/13/2025 9:00 AM EST [facility] [place] [facility] [address] [place] [address] 03/13/2025 4:30 PM EST PACE Home Care / [facility] [address] [place] [address] Ashley Eastman 03/14/2025 8:00 AM EST PACE Home Care / [facility] [address] [place] [address] Carmen Hartmann 03/14/2025 9:30 AM EST PACE Home Care / [facility] [address] [place] [address] Ralph Loyola 03/14/2025 4:30 PM EST PACE Home Care / [facility] [address] [place] [phone] Ashley Eastman 03/15/2025 8:30 AM EST PACE Home Care / [facility] [address] [place] [phone] Marysol Diaz 03/15/2025 12:00 PM EST PACE Home Care / [facility] Visit [facility] [place] [facility] [address] [place] [phone] Natali Sanford 03/15/2025 5:30 PM EST PACE Home Care / [facility] [place] [facility] [address] [place] [phone] Marysol Diaz 03/16/2025 8:30 AM EST PACE Home Care / [facility] [address] [place] [phone] Marysol Diaz 03/16/2025 12:00 PM EST PACE Home Care / [facility] [address] [place] [phone] Natali Sanford 03/16/2025 4:30 PM EST PACE Home Care / [facility] [address] [place] [phone] Marysol Diaz 03/16/2025 5:30 PM EST PACE Home Care / [facility] [address] [place] [phone] Marysol Diaz 03/17/2025 8:30 AM EST PACE Home Care / [facility] Visit [facility] [address] [place] [phone] Carmen Hartmann 03/17/2025 4:30 PM EST PACE Home Care / [facility] Visit [facility] [address] [place] [phone] Ashley Eastman 03/18/2025 8:30 AM EST PACE Home Care / [facility] Visit [facility] [address] [place] [phone] Carmen Hartmann 03/18/2025 11:00 AM EST [facility] [address] [place] [phone] Michelle Castillo MD [address] [place] [address] Brigette East LPN 03/18/2025 4:30 PM EST PACE Home Care / [facility] [address] [place] [phone] Ashley Eastman 03/19/2025 8:30 AM EST PACE Home Care / [facility] [address] [place] [phone] Carmen Hartmann 03/19/2025 4:30 PM EST PACE Home Care / [facility] [address] [place] [phone] Ashley Eastman 03/20/2025 8:30 AM EST PACE Home Care / [facility] [place] [facility] [address] [place] [address] Carmen Hartmann 03/20/2025 9:00 AM EST [facility] [facility] [place] [facility] [address] [place] [address] 03/20/2025 4:30 PM EST PACE Home Care / [facility] [address] [place] [phone] Ashley Eastman 03/21/2025 8:00 AM EST PACE Home Care / [facility] [place] [facility] [address] [place] [phone] Carmen Hartmann 03/21/2025 9:30 AM EST PACE Home Care / [facility] [place] [facility] [address] [place] [phone] Ralph Loyola 03/21/2025 4:30 PM EST PACE Home Care / [facility] [address] [place] [phone] Ashley Eastman 03/22/2025 12:00 PM EST PACE Home Care / [facility] [address] [place] [phone] Dena Chavez 03/23/2025 12:00 PM EST PACE Home Care / [facility] [address] [place] [phone] Dena Chavez 03/24/2025 8:30 AM EST PACE Home Care / [facility] [address] [place] [phone] Carmen Hartmann 03/24/2025 9:[address] [facility] [address] [place] [address] Lakia Hou, CCC-DEBT MANAGEMENT COUNSELOR 03/24/2025 4:30 PM EST PACE Home Care / [facility] [address] [place] [phone] Ashley Eastman 03/25/2025 8:30 AM EST PACE Home Care / [facility] [address] [place] [phone] Carmen Hartmann 03/25/2025 4:30 PM EST PACE Home Care / [facility] [address] [place] [phone] Ashley Eastman 03/26/2025 8:30 AM EST PACE Home Care / [facility] [address] [place] [phone] Carmen Hartmann 03/26/2025 4:30 PM EST PACE Home Care / [facility] [place] [facility] [address] [place] [phone] Ashley Eastman 03/27/2025 8:30 AM EST PACE Home Care / [facility] [address] [place] [phone] Carmen Hartmann 03/27/2025 9:00 AM EST [facility] [place] [facility] [address] [place] [address] 03/27/2025 2:40 PM EST Clinical Support [facility] [place] [address] [place] [phone] 03/27/2025 4:30 PM EST PACE Home Care / [facility] [address] [place] [address] Ashley Eastman 03/28/2025 8:00 AM EST PACE Home Care / [facility] [address] [place] [address] Carmen Hartmann 03/28/2025 10:00 AM EST Clinical Support [facility] [place] [facility] [address] [place] [address] Bethany Mccabe RN 03/28/2025 4:30 PM EST PACE Home Care / [facility] [address] [place] [phone] Ashley Eastman 03/29/2025 8:30 AM EST PACE Home Care / [facility] [address] [place] [phone] Marysol Diaz 03/29/2025 12:00 PM EST PACE Home Care / [facility] [address] [place] [phone] Natali Sanford 03/29/2025 5:30 PM EST PACE Home Care / [facility] [address] [place] [phone] Marysol Diaz 03/30/2025 8:30 AM EST PACE Home Care / [facility] [address] [place] [phone] Marysol Diaz 03/30/2025 12:00 PM EST PACE Home Care / [facility] [address] [place] [phone] Natali Sanford 03/30/2025 4:30 PM EST PACE Home Care / [facility] [address] [place] [phone] Marysol Diaz 03/30/2025 5:30 PM EST PACE Home Care / [facility] [place] [facility] [address] [place] [address] Marysol Diaz 03/31/2025 8:30 AM EST P[facility] Home Care / [facility] [place] [facility] [address] [place] [phone] Carmen Hartmann 03/31/2025 4:30 PM EST PACE Home Care / [facility] [place] [facility] [address] [place] [phone] Ashley Eastman 04/01/2025 8:30 AM EST P[facility] Home Care / [facility] [place] [facility] [address] [place] [phone] Carmen Hartmann 04/01/2025 1:15 PM EST [facility] Visit [facility] [place] [address] [place] [phone] 04/01/2025 4:30 PM EST PACE Home Care / [facility] [place] [facility] [address] [place] [phone] Ashley Eastman 04/02/2025 8:30 AM EST P[facility] Home Care / [facility] [place] [facility] [address] [place] [phone] Carmen Hartmann 04/02/2025 4:30 PM EST P[facility] Home Care / [facility] [place] [facility] [address] [place] [phone] Ashley Eastman 04/03/2025 8:30 AM EST P[facility] Home Care / [facility] [place] [facility] [address] [place] [phone] Carmen Hartmann 04/03/2025 9:00 AM EST [facility] [place] [facility] [address] [place] [address] 04/03/2025 4:30 PM EST P[facility] Home Care / [facility] [place] [facility] [address] [place] [address] Ashley Eastman 04/04/2025 8:00 AM EST P[facility] Home Care / [facility] [place] [facility] [address] [place] [address] Carmen Hartmann 04/04/2025 9:30 AM EST P[facility] Home Care / [facility] [place] [facility] [address] [place] [address] Ralph Loyola 04/04/2025 4:30 PM EST PACE Home Care / [facility] [place] [facility] [address] [place] [phone] Ashley Eastman 04/05/2025 12:00 PM EST PACE Home Care / [facility] [place] [facility] [address] [place] [phone] Dena Chavez 04/06/2025 12:00 PM EST P[facility] Home Care / [facility] [place] [facility] [address] [place] [phone] Dena Chavez 2025 8:30 AM EST P[facility] Home Care / [facility] [place] [facility] [address] [place] [phone] Carmen Hartmann 2025 4:30 PM EST [facility] Home [facility] / [facility] [place] [facility] [address] [place] [phone] Ashley Eastman 04/08/2025 8:30 AM EST [facility] / [facility] [facility] [place] [facility] [place] [facility] [address] [place] [address] Carmen Hartmann 04/08/2025 4:30 PM EST [facility] Home [facility] / [facility] [place] [facility] [place] [facility] [address] [place] [phone] Ashley Eastman 04/09/2025 8:30 AM EST [facility] Home [facility] [place] [facility] [place] [facility] [address] [place] [address] Carmen Hartmann 04/09/2025 4:30 PM EST [facility] Home [facility] / [place] [facility] [place] [facility] [address] [place] [address] Ashley Eastman 04/10/2025 8:30 AM EST [facility] Home [facility] / [place] [facility] [place] [facility] [address] [place] [address] Carmen Hartmann 04/10/2025 9:00 AM EST [facility] [place] [facility] [place] [facility] [address] [place] [address] 04/10/2025 4:30 PM EST [facility] Home [facility] [place] [facility] [place] [facility] [address] [place] [address] Ashley Eastman 04/11/2025 8:00 AM EST [facility] [place] [facility] [place] [facility] [address] [place] [address] Carmen Hartmann 04/11/2025 9:30 AM EST [facility] [place] [facility] [place] [facility] [address] [place] [address] Ralph Loyola 04/11/2025 4:30 PM EST [facility] Home [facility] / [facility] [place] [facility] [address] [place] [address] Ashley Eastman 04/12/2025 8:30 AM EST [facility] [place] [facility] [address] [place] [phone] Marysol Diaz 04/12/2025 12:00 PM EST [facility] [place] [facility] [address] [place] [phone] Natali Sanford 04/12/2025 5:30 PM EST [facility] / [facility] [place] [facility] [address] [place] [phone] Marysol Diaz 04/15/2025 11:00 AM EST [facility] Visit [facility] [place] [facility] [address] [place] [phone] Michelle Castillo MD [address] [place] [address] Brigette East LPN 04/17/2025 9:00 AM EST [facility] Att[facility] [place] [facility] [address] [place] [phone] 04/18/2025 10:00 AM EST Clinical Support [facility] [place] [facility] [address] [place] [phone] Bethany Mccabe RN 04/24/2025 9:00 AM EST [facility] [facility] [place] [facility] [address] [place] [phone] 04/24/2025 11:30 AM EST [facility] Support [facility] [place] [address] [place] [phone] 05/01/2025 9:00 AM EST [facility] [place] [facility] [place] [facility] [address] [place] [phone] 05/08/2025 9:00 AM EST [facility] [place] [facility] [address] [place] [phone] 05/09/2025 10:00 AM EST [facility] [place] [facility] [address] [phone] Bethany Mccabe RN 05/13/2025 11:00 AM EST [facility] Visit [facility] [place] [facility] [address] [place] [phone] Michelle Castillo MD [address] [place] [phone] Brigette East LPN 05/15/2025 9:00 AM EST [facility] Att[facility] [place] [facility] [address] [place] [phone] 05/22/2025 9:00 AM EST [facility] Att[facility] [place] [facility] [address] [place] [phone] 05/29/2025 9:00 AM EST [facility] Att[facility] [place] [facility] [address] [place] [phone] 05/30/2025 10:00 AM EST [facility] [place] [facility] [address] [phone] Bethany Mccabe RN 06/05/2025 9:00 AM EST [facility] [place] [facility] [address] [place] [phone] 06/10/2025 11:00 AM EST [facility] [place] [facility] [address] [place] [phone] Michelle Castillo MD [address] [address] Brigette East LPN 06/12/2025 9:00 AM EST [facility] [place] [facility] [place] [facility] [address] [place] [phone] 06/19/2025 9:00 AM EST [facility] [address] [place] [phone] 06/20/2025 10:00 AM EST Clinical Support [facility] [address] [place] [phone] Bethany Mccabe, HEIDI 06/26/2025 9:00 AM EDT [facility] Day [address] [address] 06/27/2025 1:20 PM EDT Office Visit Gastroenterology - [address] [place] [phone] Analisa Perez, ALONSO [address] [place] [phone] 07/03/2025 9:00 AM EDT [facility] Day [address] [phone] 07/10/2025 9:00 AM EDT [facility] Day [address] [phone] 07/11/2025 10:00 AM EDT Clinical Support [facility] [address] [phone] Bethany Mccabe, HEIDI 07/17/2025 9:00 AM EDT [facility] Day [address] [phone] 07/17/2025 3:30 PM EDT [facility] [address] [phone] 07/24/2025 9:00 AM EDT [facility] [facility] [place] [facility] [address] [place] [address] 07/31/2025 9:00 AM EDT [facility] [facility] [place] [facility] [address] [place] [phone] 08/01/2025 10:00 AM EDT Clinical [place] [facility] [place] [facility] [address] [place] [phone] Bethany Mccabe RN 08/07/2025 9:00 AM EDT [facility] [facility] [place] [facility] [address] [place] [phone] 08/14/2025 9:00 AM EDT [facility] [facility] [place] [facility] [address] [place] [phone] 08/21/2025 9:00 AM EDT [facility] [facility] [place] [facility] [address] [place] [phone] 08/22/2025 10:00 AM EDT [facility] [place] [facility] [place] [facility] [address] [place] [phone] Bethany Mccabe RN 08/28/2025 9:00 AM EDT [facility] [facility] [place] [facility] [address] [place] [phone] 09/04/2025 9:00 AM EDT [facility] [facility] [place] [facility] [address] [place] [phone] 09/11/2025 9:00 AM EDT [facility] [facility] [place] [facility] [address] [place] [phone] 09/12/2025 10:00 AM EDT Clinical [place] [facility] [place] [facility] [address] [place] [address] Bethany Mccabe, HEIDI 09/18/2025 9:00 AM EDT [facility] [place] [facility] [address] [place] [phone] 09/25/2025 9:00 AM EDT [facility] [place] [facility] [address] [place] [phone] 10/02/2025 9:00 AM EDT [facility] [place] [facility] [address] [place] [phone] 10/03/2025 10:00 AM EDT Clinical Support [facility] [place] [facility] [address] [place] [phone] Bethany Mccabe RN 10/09/2025 9:00 AM EDT [facility] [facility] [place] [facility] [address] [phone] 10/24/2025 10:00 AM EDT Clinical [facility] [place] [facility] [address] [place] [phone] Bethany Mccabe RN 11/14/2025 10:00 AM EDT Clinical Support [facility] [place] [facility] [address] [place] [phone] Bethany Mccabe, HEIDI 12/05/2025 10:00 AM EDT Clinical Support [facility] [place] [facility] [address] [phone] Bethany Mccabe RN 12/26/2025 10:00 AM EDT Clinical Support [facility] [place] [facility] [address] [place] [phone] Bethany Mccabe, HEIDI 01/16/2026 10:00 AM EDT Clinical Support [facility] [place] [facility] [address] [place] [phone] Bethany Mccabe, RN 02/06/2026 10:00 AM EDT Clinical Support [facility] [place] [facility] [address] [place] [phone] Bethany Mccabe, RN 02/27/2026 10:00 AM EST Clinical Support [facility] [address] [place] [phone] Bethany Mccabe RN documented as of this encounter Visit Diagnoses Not on filedocumented in this encounter Additional Health Concerns Infection Onset Date Last Indicated Resolved Time Gastrointestinal Rule-Out 02/10/2025 02/10/2025 documented as of this encounter Care Teams It Applications Analyst Relationship Specialty Start Date End Date Regulo Ivy NP [address] [place] [address] PCP - General KELLI 06/07/24 documented as of this encounter
--- OUTSIDE RECORDS SUMMARY | 2025-02-11 19:43 | XMS_ITS | Encounter Summary ---
Author Organization [facility] Address [address] [place] [address] Care Team Providers Care 911 Emergency Services Dispatcher Name Role Phone Regulo Ivy NP Primary Care Provider [phone] Reason for Visit * Reason Onset Date Comments Clinical 08/25/2024 Participant call ed to report left side of face is swollen due to tooth issues. States she has been taking Tylenol of the pain with some relief. Instructed to apply cool compresses to face to alleviate some of the swelling. Instructed participant to call back if symptoms worsen and someone would f/u next calendar day. Verbalized understanding. Encounter Details Date Type Department Care Team (Late st Contact Info) Description 08/25/2024 PACE On[facility]Call [facility] [address] [place] [address] Regulo Ivy NP [address] [facility] 1 [place], [place] [id number] Social History Tobacco Use Types Packs/Day Years [...] as of this encounter Functional Status * Calculated C-SSRS Risk Score (Lifetime/Recent) Answer Date of Assessment Author No Risk Indicated 08/25/2024 1:11 PM EDT Goyo Sanders, RN * Oxford Suicide Severity Rating Scale (Screener/Recent Self-Report) Question Answer Date of Assessment Author 1. Wish to be (Past 1 Month) No 025 1:11 PM EDT Goyo Sanders, RN 2. Non-Specific Active Suici sage Thoughts (Past 1 Month) No 08/25/2024 1:11 PM EDT Goyo Sanders, RN 6. Suicidal Behavior (Lifetime) No 1:11 PM EDT Goyo Sanders, HEIDI documented as of this encounter Plan of Treatment Upcoming Encounters Date Type Department Care Team (Latest Contact Info) Description 02/12/2025 8:30 AM EDT PACE Home Care / [facility] [address] [place] [phone] Carmen Hatrmann 02/12/2025 4:30 PM EDT PACE Home Care / [facility] Visit [facility] [address] [place] [phone] Ashley Eastman 02/13/2025 8:30 AM EDT PACE Home Care / [facility] Home Visit [facility] [address] [place] [phone] Carmen Hartmann 02/13/2025 9:00 AM EDT [facility] Attend[facility] [place] [facility] [address] [place] [phone] 02/13/2025 4:30 PM EDT PACE Home [facility] / [facility] [address] [place] [address] Ashley Eastman 02/14/2025 8:00 AM EDT P[facility] Home [facility] / [facility] [place] [facility] [address] [place] [phone] Carmen Hartmann 02/14/2025 9:30 AM EDT P[facility] Home Care / [facility] [place] [facility] [address] [place] [phone] Ralph Loyola 02/14/2025 4:30 PM EDT PACE Home Care / [facility] [address] [place] [phone] Ashley Eastman 02/15/2025 8:30 AM EDT PACE Home Care / [facility] Visit [facility] [place] [facility] [address] [place] [phone] Marysol Diaz 02/15/2025 12:00 PM EDT PACE Home Care / [facility] [place] [facility] [address] [place] [phone] Natali Sanford 02/15/2025 5:30 PM EDT P[facility] Home Care / [facility] [place] [facility] [address] [place] [phone] Marysol Diaz 02/16/2025 8:30 AM EST [facility] Home Care / [facility] [place] [facility] [address] [place] [phone] Marysol Diaz 02/16/2025 12:00 PM EST [facility] Home Care / [facility] [place] [facility] [address] [place] [phone] Natali Sanford 02/16/2025 4:30 PM EST P[facility] Home Care / [facility] [place] [facility] [address] [place] [phone] Marysol Diaz 02/16/2025 5:30 PM EST P[facility] Home Care / [facility] [place] [facility] [address] [place] [phone] Marysol Diaz 02/17/2025 8:30 AM EST P[facility] Home Care / [facility] [place] [facility] [address] [place] [phone] Carmen Hartmann 02/17/2025 11:00 AM EST [facility] [place] [facility] [address] [place] [phone] Michelle Castillo MD [address] [address] 02/17/2025 4:30 PM EST P[facility] Home [facility] / [facility] [place] [facility] [address] [place] [phone] Ashley Eastman 02/18/2025 8:30 AM EST P[facility] Home Care / [facility] [place] [facility] [address] [place] [phone] Carmen Hartmann 02/18/2025 11:00 AM EST [facility] [address] [place] [address] Michelle Castillo MD [address] [address] Brigette East LPN 02/18/2025 4:30 PM EST P[facility] Home Care / [facility] [address] [place] [phone] Ashley Han 02/19/2025 8:30 AM EST [facility] Home [facility] / [facility] [place] [facility] [address] [place] [address] Carmen Hartmann 02/19/2025 4:30 PM EST P[facility] Home Care / [facility] [address] [place] [address] Ashley Eastman 02/20/2025 8:30 AM EST [facility] Home [facility] / [facility] [address] [place] [address] Carmen Hartmann 02/20/2025 9:00 AM EST [facility] [place] [facility] [address] [place] [address] 02/20/2025 4:30 PM EST P[facility] Home Care / [facility] [place] [facility] [address] [place] [address] Ashley Eastman 02/21/2025 8:00 AM EST [facility] Home Care / [facility] [place] [facility] [address] [place] [phone] Carmen Hartmann 02/21/2025 9:30 AM EST [facility] Home Care / [facility] [place] [facility] [address] [place] [address] Ralph Loyola 02/21/2025 4:30 PM EST P[facility] Home Care / [facility] [place] [facility] [address] [place] [phone] Ashley Eastman 02/22/2025 12:00 PM EST P[facility] Home [facility] / [facility] [place] [facility] [address] [place] [phone] Dena Chavez 02/23/2025 12:00 PM EST [facility] Home Care / [facility] [place] [facility] [address] [place] [address] Dena Chavez 02/24/2025 8:30 AM EST P[facility] Home Care / [facility] [place] [facility] [address] [place] [address] Carmen Hartmann 02/24/2025 4:30 PM EST P[facility] Home Care / [facility] [place] [facility] [address] [place] [address] Ashley Eastman 02/25/2025 8:30 AM EST P[facility] Home Care / [facility] [place] [facility] [address] [place] [phone] Carmen Hartmann 02/25/2025 4:30 PM EST P[facility] Home Care / [facility] [place] [facility] [address] [place] [phone] Ashley Eastman 02/26/2025 8:30 AM EST PACE Home Care / [facility] [place] [facility] [address] [place] [phone] Carmen Hartmann 02/26/2025 4:30 PM EST P[facility] Home Care / [facility] [place] [facility] [address] [place] [phone] Ashley Eastman 02/27/2025 8:30 AM EST [facility] Home [facility] / [facility] [place] [facility] [address] [place] [phone] Carmen Hartmann 02/27/2025 9:00 AM EST [facility] [facility] [place] [facility] [address] [place] [address] 02/27/2025 4:30 PM EST P[facility] Home [facility] / [facility] [place] [facility] [address] [place] [address] Ashley Eastman 02/28/2025 8:00 AM EST P[facility] Home Care / [facility] [place] [facility] [address] [place] [address] Carmen Hatrmann 02/28/2025 9:30 AM EST P[facility] Home Care / [facility] [place] [facility] [address] [place] [phone] Ralph Loyola 02/28/2025 4:30 PM EST P[facility] Home Care / [facility] [address] [place] [phone] Ashley Eastman 03/01/2025 8:30 AM EST [facility] Home [facility] / [facility] [place] [facility] [address] [place] [phone] Marysol Diaz 03/01/2025 12:00 PM EST PACE Home Care / [facility] [facility] [place] [facility] [address] [place] [phone] Natali Sanford 03/01/2025 5:30 PM EST PACE Home Care / [facility] [facility] [place] [facility] [address] [place] [phone] Marysol Diaz 03/02/2025 8:30 AM EST P[facility] Home [facility] / [facility] [facility] [place] [facility] [address] [place] [phone] Marysol Diaz 03/02/2025 12:00 PM EST PACE Home Care / [facility] [place] [facility] [address] [place] [phone] Natali Sanford 03/02/2025 4:30 PM EST P[facility] Home Care / [facility] [place] [facility] [address] [place] [address] Marysol Diaz 03/02/2025 5:30 PM EST PACE Home Care / [facility] [place] [facility] [address] [place] [address] Marysol Diaz 03/03/2025 8:30 AM EST PACE Home Care / [facility] Visit [facility] [address] [place] [address] Carmen Hartmann 03/03/2025 4:30 PM EST PACE Home Care / P[facility] Visit [facility] [address] [place] [address] Ashley Eastman 03/04/2025 8:30 AM EST PACE Home Care / [facility] [address] [place] [address] Carmen Hartmann 03/04/2025 4:30 PM EST PACE Home Care / P[facility] Visit [facility] [address] [place] [phone] Ashley Eastman 03/05/2025 8:30 AM EST P[facility] Home Care / [facility] [address] [place] [phone] Carmen Hartmann 03/05/2025 4:30 PM EST PACE Home Care / [facility] Visit [facility] [place] [facility] [address] [place] [phone] Ashley Eastman 03/06/2025 8:30 AM EST PACE Home Care / [facility] Visit [facility] [place] [facility] [address] [place] [phone] Carmen Hartmann 03/06/2025 9:00 AM EST [facility] [place] [facility] [address] [place] [address] 03/06/2025 4:30 PM EST PACE Home Care / [facility] [address] [place] [address] Ashley Eastman 03/07/2025 Lab [facility] [address] [place] [address] Clemencia Napier, OT Schizophrenia in partial remission with history of multiple episodes (CMS/HCC V24, CMS/HCC V28) 03/07/2025 8:00 AM EST PACE Home Care / P[facility] [address] [place] [phone] Carmen Hartmann 03/07/2025 9:00 AM EST Clinical Support [facility] [address] [place] [phone] Bethany Mccabe RN 03/07/2025 9:30 AM EST PACE Home Care / P[facility] Home Visit [facility] [address] [place] [phone] Ralph Loyola 03/07/2025 4:30 PM EST PACE Home Care / P[facility] Home Visit [facility] [address] [place] [phone] Ashley Eastman 03/08/2025 12:00 PM EST PACE Home Care / P[facility] Visit [facility] [address] [place] [phone] Dena Chavez 03/09/2025 12:00 PM EST PACE Home Care / P[facility] Visit [facility] [address] [place] [phone] Dena Chavez 03/10/2025 8:30 AM EST PACE Home Care / P[facility] Visit [facility] [address] [place] [phone] Carmen Hartmann 03/10/2025 4:30 PM EST PACE Home Care / [facility] [address] [place] [address] Ashley Eastman 03/11/2025 8:30 AM EST P[facility] Home Care / [facility] [address] [place] [address] Carmen Hartmann 03/11/2025 4:30 PM EST P[facility] Home [facility] / [facility] [place] [facility] [address] [place] [phone] Ashley Eastman 03/12/2025 8:30 AM EST P[facility] Home Care / [facility] [address] [place] [phone] Carmen Hartmann 03/12/2025 4:30 PM EST P[facility] Home Care / [facility] [place] [facility] [address] [place] [phone] Ashley Eastman 03/13/2025 8:30 AM EST P[facility] Home Care / [facility] [address] [place] [phone] Carmen Hartmann 03/13/2025 9:00 AM EST [facility] [place] [facility] [address] [place] [address] 03/13/2025 4:30 PM EST PACE Home Care / [facility] [place] [facility] [address] [place] [phone] Ashley Eastman 03/14/2025 8:00 AM EST P[facility] Home Care / [facility] [address] [place] [phone] Carmen Hartmann 03/14/2025 9:30 AM EST P[facility] Home [facility] / [facility] [place] [facility] [address] [place] [address] Ralph Loyola 03/14/2025 4:30 PM EST P[facility] Home [facility] / [facility] [place] [facility] [address] [place] [phone] Ashley Eastman 03/15/2025 8:30 AM EST P[facility] Home Care / [facility] [address] [place] [phone] Marysol Diaz 03/15/2025 12:00 PM EST P[facility] Home Care / [facility] [address] [place] [phone] Natali Sanford 03/15/2025 5:30 PM EST P[facility] Home [facility] / [facility] [address] [place] [phone] Marysol Diaz 03/16/2025 8:30 AM EST P[facility] Home [facility] / [facility] [address] [place] [phone] Marysol Diaz 03/16/2025 12:00 PM EST P[facility] Home [facility] / [facility] [place] [facility] [address] [place] [phone] Natali Sanford 03/16/2025 4:30 PM EST P[facility] Home Care / [facility] [address] [place] [phone] Marysol Diaz 03/16/2025 5:30 PM EST P[facility] Home [facility] / [facility] [place] [facility] [address] [place] [phone] Marysol Diaz 03/17/2025 8:30 AM EST P[facility] Home Care / [facility] [address] [place] [phone] Carmen Hartmann 03/17/2025 4:30 PM EST P[facility] Home Care / [facility] [address] [place] [phone] Ashley Eastman 03/18/2025 8:30 AM EST P[facility] Home Care / [facility] [address] [place] [phone] Carmen Hartmann 03/18/2025 11:00 AM EST [facility] Visit [facility] [address] [place] [phone] Michelle Csatillo MD [address] [place] [address] Brigette East LPN 03/18/2025 4:30 PM EST P[facility] Home Care / [facility] [address] [place] [phone] Ashley Eastman 03/19/2025 8:30 AM EST P[facility] Home [facility] / [facility] [address] [place] [phone] Carmen Hartmann 03/19/2025 4:30 PM EST P[facility] Home [facility] / [facility] [place] [facility] [address] [place] [phone] Ashley Eastman 03/20/2025 8:30 AM EST P[facility] Home [facility] / [facility] [place] [facility] [address] [place] [phone] Carmen Hartmann 03/20/2025 9:00 AM EST [facility] [place] [facility] [address] [place] [address] 03/20/2025 4:30 PM EST P[facility] Home Care / [facility] [address] [place] [address] Ashley Eastman 03/21/2025 8:00 AM EST P[facility] Home [facility] / [facility] [address] [place] [address] Carmen Hartmann 03/21/2025 9:30 AM EST P[facility] Home [facility] / [facility] [place] [facility] [address] [place] [address] Ralph Loyola 03/21/2025 4:30 PM EST P[facility] Home [facility] / [facility] [place] [facility] [address] [place] [address] Ashley Eastman 03/22/2025 12:00 PM EST P[facility] Home Care / [facility] [address] [place] [phone] Dena Chavez 03/23/2025 12:00 PM EST P[facility] Home [facility] / [facility] [place] [facility] [address] [place] [phone] Dena Chavez 03/24/2025 8:30 AM EST [facility] Home [facility] / [facility] [place] [facility] [address] [place] [phone] Carmen Hartmann 03/24/2025 9:45 AM EST Appointment [facility] Xray [address] [place] [address] Lakia Hou, [employer] 03/24/2025 4:30 PM EST P[facility] Home [facility] / [facility] [place] [facility] [address] [place] [address] Ashley Eastamn 03/25/2025 8:30 AM EST P[facility] Home Care / [facility] [address] [place] [address] Carmen Hartmann 03/25/2025 4:30 PM EST P[facility] Home Care / [facility] [address] [place] [address] Ashley Eastman 03/26/2025 8:30 AM EST P[facility] Home Care / [facility] [address] [place] [address] Carmen Hartmann 03/26/2025 4:30 PM EST PACE Home Care / [facility] Visit [facility] [address] [place] [phone] Ashley Eastman 03/27/2025 8:30 AM EST P[facility] Home Care / [facility] [address] [place] [phone] Carmen Hartmann 03/27/2025 9:00 AM EST [facility] [place] [facility] [address] [place] [address] 03/27/2025 2:40 PM EST Clinical Support [facility] [address] [place] [address] 03/27/2025 4:30 PM EST P[facility] Home Care / [facility] [address] [place] [phone] Ashley Eastman 03/28/2025 8:00 AM EST P[facility] Home Care / [facility] [address] [place] [phone] Carmen Hartmann 03/28/2025 10:00 AM EST Clinical [facility] [address] [place] [address] Bethany Mccabe RN 03/28/2025 4:30 PM EST PACE Home Care / [facility] [address] [place] [address] Ashley Eastman 03/29/2025 8:30 AM EST P[facility] Home Care / [facility] [address] [place] [address] Marysol Diaz 03/29/2025 12:00 PM EST P[facility] Home Care / [facility] [address] [place] [address] Natali Sanford 03/29/2025 5:30 PM EST P[facility] Home Care / [facility] [address] [place] [address] Marysol Diaz 03/30/2025 8:30 AM EST P[facility] Home Care / [facility] [address] [place] [address] Marysol Diaz 03/30/2025 12:00 PM EST P[facility] Home Care / [facility] [address] [place] [address] Natali Sanford 03/30/2025 4:30 PM EST P[facility] Home Care / [facility] [address] [place] [address] Marysol Diaz 03/30/2025 5:30 PM EST P[facility] Home Care / [facility] [address] [place] [address] Marysol Diaz 03/31/2025 8:30 AM EST P[facility] Home [facility] / [facility] [place] [facility] [address] [place] [address] Carmen Hartmann 03/31/2025 4:30 PM EST [facility] Home [facility] / [facility] [place] [facility] [address] [place] [address] Ashley Eastman 04/01/2025 8:30 AM EST P[facility] Home [facility] / [facility] [address] [place] [address] Carmen Hartmann 04/01/2025 1:15 PM EST [facility] [address] [place] [address] 04/01/2025 4:30 PM EST [facility] Home [facility] / [facility] [place] [facility] [address] [place] [address] Ashley Eastman 04/02/2025 8:30 AM EST P[facility] Home [facility] / [facility] [address] [place] [phone] Carmen Hartmann 04/02/2025 4:30 PM EST P[facility] Home [facility] / [facility] [address] [place] [address] Ashley Eastman 04/03/2025 8:30 AM EST [facility] Home [facility] / [facility] [place] [facility] [address] [place] [address] Carmen Hartmann 04/03/2025 9:00 AM EST [facility] [place] [facility] [address] [place] [address] 04/03/2025 4:30 PM EST P[facility] Home Care / [facility] [address] [place] [address] Ashley Eastman 04/04/2025 8:00 AM EST P[facility] Home [facility] / [facility] [place] [facility] [address] [place] [address] Carmen Hartmann 04/04/2025 9:30 AM EST [facility] Home [facility] / [facility] [place] [facility] [address] [place] [phone] Ralph Loyola 04/04/2025 4:30 PM EST [facility] Home [facility] / [facility] [place] [facility] [address] [place] [phone] Ashley Eastman 04/05/2025 12:00 PM EST [facility] Home [facility] / [facility] [place] [facility] [address] [place] [phone] Dena Chavez 04/06/2025 12:00 PM EST [facility] Home [facility] / [facility] [place] [facility] [address] [place] [phone] Dena Chavez 2025 8:30 AM EST [facility] Home [facility] / [facility] [place] [facility] [address] [place] [phone] Carmen Hartmann 2025 4:30 PM EST P[facility] Home [facility] / [facility] [place] [facility] [address] [place] [phone] Ashley Eastman 04/08/2025 8:30 AM EST [facility] Home [facility] / [facility] [place] [facility] [address] [place] [phone] Carmen Hartmann 04/08/2025 4:30 PM EST [facility] Home [facility] / [facility] [place] [facility] [address] [place] [phone] Ashley Eastman 04/09/2025 8:30 AM EST PACE Home Care / PACE Home [facility] [place] [facility] [address] [place] [address] Carmen Hartmann 04/09/2025 4:30 PM EST [facility] / [facility] [facility] [place] [facility] [address] [place] [address] Ashley Eastman 04/10/2025 8:30 AM EST [facility] Home [facility] / [place] [facility] [place] [facility] [address] [place] [phone] Carmen Hartmann 04/10/2025 9:00 AM EST [place] Attendance/[place] [facility] [place] [facility] [address] [place] [address] 04/10/2025 4:30 PM EST [facility] Home [facility] / [place] [facility] [place] [facility] [address] [place] [phone] Ashley Eastman 04/11/2025 8:00 AM EST [facility] Home [facility] / [place] [facility] [place] [facility] [address] [place] [phone] Carmen Hartmann 04/11/2025 9:30 AM EST [facility] Home [facility] / [place] [facility] [place] [facility] [address] [place] [phone] Ralph Loyola 04/11/2025 4:30 PM EST [facility] / [place] [facility] [place] [facility] [address] [place] [phone] Ashley Eastman 04/12/2025 8:30 AM EST [facility] / [place] [facility] [place] [facility] [address] [place] [phone] Marysol Diaz 04/12/2025 12:00 PM EST [facility] [address] [place] [phone] FelyNatali christianson 04/12/2025 5:30 PM EST [facility] / [facility] [place] [facility] [address] [place] [phone] Marysol Diaz 04/15/2025 11:00 AM EST [facility] [place] [facility] [address] [place] [phone] Michelle Castillo MD [address] [place] [phone] Brigette East LPN 04/17/2025 9:00 AM EST P[facility] Attendance/Day Center [facility] [place] [facility] [address] [place] [phone] 04/18/2025 10:00 AM EST [facility] [place] [facility] [address] [place] [phone] Bethany Mccabe RN 04/24/2025 9:00 AM EST [facility] [place] [facility] [address] [place] [phone] 04/24/2025 11:30 AM EST [facility] [address] [phone] 05/01/2025 9:00 AM EST [facility] [place] [facility] [address] [phone] 05/08/2025 9:00 AM EST [facility] [place] [facility] [address] [place] [phone] 05/09/2025 10:00 AM EST [facility] [place] [facility] [address] [place] [phone] Bethany Mccabe RN 05/13/2025 11:00 AM EST Office Visit [facility] [address] [place] [phone] Michelle Castillo MD [address] [place] [phone] Brigette East LPN 05/15/2025 9:00 AM EST P[facility] Attendance/Day Center [facility] [place] [facility] [address] [place] [phone] 05/22/2025 9:00 AM EST PACE Attendance/Day Center [facility] Day [address] [phone] 05/29/2025 9:00 AM EST PACE Attendance/Day Center [facility] Day [address] [address] 05/30/2025 10:00 AM EST Clinical Support [facility] [address] [place] [phone] Bethany Mccabe RN 06/05/2025 9:00 AM EST PACE Attendance/Day Center [facility] Day [address] [phone] 06/10/2025 11:00 AM EST Office Visit [facility] PACE [address] [phone] Michelle Castillo MD [address] [place] [phone] Brigette East LPN 06/12/2025 9:00 AM EST PACE Attendance/Day Center [facility] [place] [facility] [address] [address] 06/19/2025 9:00 AM EST PACE Attendance/Day Center [facility] [address] [place] [phone] 06/20/2025 10:00 AM EST Clinical Support [facility] [place] [facility] [address] [place] [address] Bethany Mccabe RN 06/26/2025 9:00 AM EDT PACE Attendance/Day Center [facility] Day Center [address] [place] [address] 06/27/2025 1:20 PM EDT Office Visit Gastroenterology - [address] [place] [address] Analisa Perez, ALONSO [address] [place] [address] 07/03/2025 9:00 AM EDT [facility] P[facility] Day [address] [phone] 07/10/2025 9:00 AM EDT [facility] P[facility] Day [address] [phone] 07/11/2025 10:00 AM EDT [facility] PACE [address] [phone] Bethany Mccabe RN 07/17/2025 9:00 AM EDT [facility] Day [address] [address] 07/17/2025 3:30 PM EDT [facility] [address] [phone] 07/24/2025 9:00 AM EDT [facility] P[facility] Day [address] [address] 07/31/2025 9:00 AM EDT [facility] PACE Day [address] [phone] 08/01/2025 10:00 AM EDT Clinical Support [facility] [place] [facility] [address] [place] [address] Bethany Mccabe, RN 08/07/2025 9:00 AM EDT [place] Att[place] [facility] [place] [facility] [address] [place] [phone] 08/14/2025 9:00 AM EDT [place] Att[place] [facility] [place] [facility] [address] [place] [phone] 08/21/2025 9:00 AM EDT [place] Att[place] [facility] [place] [facility] [address] [place] [phone] 08/22/2025 10:00 AM EDT Clinical Support [facility] [place] [facility] [address] [place] [phone] Bethany Mccabe, HEIDI 08/28/2025 9:00 AM EDT [place] Att[place] [facility] [place] [facility] [address] [place] [phone] 09/04/2025 9:00 AM EDT [place] Att[place]ance[facility] [facility] [place] [facility] [address] [place] [phone] 09/11/2025 9:00 AM EDT [place] Att[facility] [facility] [place] [facility] [address] [place] [phone] 09/12/2025 10:00 AM EDT Clinical Support [facility] [place] [facility] [address] [place] [phone] Bethany Mccabe, RN 09/18/2025 9:00 AM EDT [place] Att[place]ance[facility] [facility] [place] [facility] [address] [place] [phone] 09/25/2025 9:00 AM EDT [place] Att[place]ance[facility] [facility] [place] [facility] [address] [place] [phone] 10/02/2025 9:00 AM EDT [place] [facility] [place] [facility] [address] [place] [phone] 10/03/2025 10:00 AM EDT [facility] [place] [facility] [address] [phone] Bethany Mccabe RN 10/09/2025 9:00 AM EDT [facility] P[facility] Day [address] [phone] 10/24/2025 10:00 AM EDT [facility] [place] [facility] [address] [phone] Bethany Mccabe RN 11/14/2025 10:00 AM EDT [facility] [place] [facility] [address] [phone] Bethany Mccabe RN 12/05/2025 10:00 AM EDT [facility] [place] [facility] [address] [address] Bethany Mccabe RN 12/26/2025 10:00 AM EDT [facility] [place] [facility] [address] [phone] Bethany Mccabe RN 01/16/2026 10:00 AM EDT [facility] [place] [facility] [address] [phone] Bethany Mccabe RN 02/06/2026 10:00 AM EDT [facility] [place] [facility] [address] [phone] Bethany Mccabe RN 02/27/2026 10:00 AM EST [facility] [place] [facility] [address] [phone] Bethany Mccabe RN documented as of this encounter Visit Diagnoses Not on filedocumented in this encounter Additional Health Concerns Infection Onset Date Last Indicated Resolved Time Gastrointestinal Rule-Out 02/10/2025 02/10/2025 documented as of this encounter Care Teams 911 Emergency Services Dispatcher Relationship Specialty Start Date End Date Regulo Ivy NP [address] [place] [address] PCP - General PACE 06/07/24 documented as of this encounter
--- OUTSIDE RECORDS SUMMARY | 2025-02-11 19:43 | XMS_ITS | Encounter Summary ---
Author Organization [facility] Address [address] [place] [address] Care Team Providers Care Elementary Principal Name Role Phone Regulo Ivy NP Primary Care Provider [phone] Reason for Visit * Reason Comments Fall Encounter Details Date Type Department Care Team (Late st Contact Info) Description 06/17/2024 [facility] [address] [place] [address] [place], Brigette, CAUSTIC LOADER Social History Tobacco Use Types Packs/Day Years [...] [facility] [address] [place] [address] Carmen Hartmann 02/12/2025 4:30 PM EDT PACE Home Care / P[facility] Home Visit [facility] [address] [place] [phone] Ashley Eastman 02/13/2025 8:30 AM EDT PACE Home Care / PACE Home Visit [facility] [address] [place] [phone] Carmen Hartmann 02/13/2025 9:00 AM EDT PACE Attendance/[facility] [place] [facility] [address] [place] [phone] 02/13/2025 4:30 PM EDT PACE Home Care / PACE Home Visit [facility] [address] [place] [phone] Ashley Eastman 02/14/2025 8:00 AM EDT PACE Home Care / PACE Home Visit [facility] [address] [place] [phone] Carmen Hartmann 02/14/2025 9:30 AM EDT PACE Home Care / PACE Home Visit [facility] [address] [place] [phone] Ralph Loyola 02/14/2025 4:30 PM EDT PACE Home Care / PACE Home Visit [facility] [address] [place] [phone] Ashley Eastman 02/15/2025 8:30 AM EDT PACE Home Care / PACE Home Visit [facility] [address] [place] [phone] Marysol Diaz 02/15/2025 12:00 PM EDT PACE Home Care / [facility] Visit [facility] [address] [place] [phone] Natali Sanford 02/15/2025 5:30 PM EDT PACE Home Care / [facility] Home Visit [facility] [place] [facility] [address] [place] [phone] Marysol Diaz 02/16/2025 8:30 AM EST PACE Home Care / [facility] Home Visit [facility] [place] [facility] [address] [place] [phone] Marysol Diaz 02/16/2025 12:00 PM EST PACE Home Care / [facility] Visit [facility] [place] [facility] [address] [place] [phone] Natali Sanford 02/16/2025 4:30 PM EST PACE Home Care / [facility] Visit [facility] [place] [facility] [address] [place] [phone] Marysol Diaz 02/16/2025 5:30 PM EST PACE Home Care / [facility] Home Visit [facility] [place] [facility] [address] [place] [phone] Marysol Diaz 02/17/2025 8:30 AM EST PACE Home Care / [facility] Visit [facility] [address] [place] [phone] Carmen Hartmann 02/17/2025 11:00 AM EST Office Visit [facility] [place] [facility] [address] [place] [phone] Michelle Castillo MD [address] [place] [address] 02/17/2025 4:30 PM EST PACE Home Care / [facility] Visit [facility] [address] [place] [phone] Ashley Eastman 02/18/2025 8:30 AM EST PACE Home Care / PACE Home Visit [facility] [address] [place] [phone] Carmen Hartmann 02/18/2025 11:00 AM EST Office Visit [facility] [address] [place] [phone] Michelle Castillo MD [address] [address] Brigette East LPN 02/18/2025 4:30 PM EST PACE Home Care / PACE Home Visit [facility] [address] [place] [phone] Ashley Eastman 02/19/2025 8:30 AM EST PACE Home Care / PACE Home Visit [facility] [address] [place] [phone] Carmen Hartmann 02/19/2025 4:30 PM EST PACE Home Care / PACE Home Visit [facility] [address] [place] [phone] Ashley Eastman 02/20/2025 8:30 AM EST PACE Home Care / PACE Home Visit [facility] [address] [place] [phone] Carmen Hartmann 02/20/2025 9:00 AM EST [facility] Attend[facility] [place] [facility] [address] [place] [phone] 02/20/2025 4:30 PM EST PACE Home Care / PACE Home Visit [facility] [address] [place] [phone] Ashley Eastman 02/21/2025 8:00 AM EST PACE Home Care / [facility] Home Visit [facility] [place] [facility] [address] [place] [phone] Carmen Hartmann 02/21/2025 9:30 AM EST PACE Home Care / [facility] Home Visit [facility] [place] [facility] [address] [place] [phone] Ralph Loyola 02/21/2025 4:30 PM EST PACE Home Care / [facility] Home Visit [facility] [place] [facility] [address] [place] [phone] Ashley Eastman 02/22/2025 12:00 PM EST PACE Home Care / [facility] Home Visit [facility] [address] [place] [phone] Dena Chavez 02/23/2025 12:00 PM EST PACE Home Care / [facility] Home Visit [facility] [address] [place] [phone] Dena Chavez 02/24/2025 8:30 AM EST PACE Home Care / [facility] Home Visit [facility] [place] [facility] [address] [place] [phone] Carmen Hartmann 02/24/2025 4:30 PM EST PACE Home Care / [facility] Home Visit [facility] [place] [facility] [address] [place] [phone] Ashley Eastman 02/25/2025 8:30 AM EST PACE Home Care / [facility] Home Visit [facility] [address] [place] [phone] Carmen Hartmann 02/25/2025 4:30 PM EST PACE Home Care / [facility] Home Visit [facility] [place] [facility] [address] [place] [phone] Ashley Eastman 02/26/2025 8:30 AM EST PACE Home Care / [facility] Home Visit [facility] [place] [facility] [address] [place] [address] Carmen Hartmann 02/26/2025 4:30 PM EST PACE Home Care / [facility] Home Visit [facility] [place] [facility] [address] [place] [address] Ashley Eastman 02/27/2025 8:30 AM EST PACE Home Care / [facility] Home Visit [facility] [place] [facility] [address] [place] [address] Carmen Hartmann 02/27/2025 9:00 AM EST [facility] [place] [facility] [address] [place] [address] 02/27/2025 4:30 PM EST PACE Home Care / [facility] [place] [facility] [address] [place] [address] Ashley Eastman 02/28/2025 8:00 AM EST PACE Home Care / [facility] Home Visit [facility] [place] [facility] [address] [place] [phone] Carmen Hartmann 02/28/2025 9:30 AM EST PACE Home Care / [facility] Home Visit [facility] [address] [place] [address] Ralph Loyola 02/28/2025 4:30 PM EST PACE Home Care / [facility] Home Visit [facility] [address] [place] [phone] Ashley Eastman 03/01/2025 8:30 AM EST PACE Home Care / [facility] Home Visit [facility] [place] [facility] [address] [place] [phone] Marysol Diaz 03/01/2025 12:00 PM EST PACE Home Care / [facility] Home Visit [facility] [place] [facility] [address] [place] [address] Natali Sanford 03/01/2025 5:30 PM EST PACE Home Care / [facility] Home Visit [facility] [place] [facility] [address] [place] [phone] Marysol Diaz 03/02/2025 8:30 AM EST PACE Home Care / [facility] Home Visit [facility] [place] [facility] [address] [place] [phone] Marysol Diaz 03/02/2025 12:00 PM EST PACE Home Care / P[facility] Home Visit [facility] [address] [place] [phone] Natali Sanford 03/02/2025 4:30 PM EST PACE Home Care / [facility] Home Visit [facility] [place] [facility] [address] [place] [phone] Joe Marysol 03/02/2025 5:30 PM EST PACE Home Care / P[facility] Home Visit [facility] [place] [facility] [address] [place] [phone] Marysol Diaz 03/03/2025 8:30 AM EST PACE Home Care / [facility] Home Visit [facility] [place] [facility] [address] [place] [phone] Carmen Hartmann 03/03/2025 4:30 PM EST PACE Home Care / [facility] Home Visit [facility] [address] [place] [phone] Ashley Eastman 03/04/2025 8:30 AM EST PACE Home Care / [facility] Home Visit [facility] [address] [place] [phone] Carmen Hartmann 03/04/2025 4:30 PM EST PACE Home Care / PACE Home Visit [facility] [address] [place] [address] Ashley Eastman 03/05/2025 8:30 AM EST PACE Home Care / PACE Home Visit [facility] [address] [place] [address] Carmen Hartmann 03/05/2025 4:30 PM EST PACE Home Care / PACE Home Visit [facility] [address] [place] [address] Ashley Eastman 03/06/2025 8:30 AM EST PACE Home Care / PACE Home Visit [facility] [address] [place] [address] Carmen Hartmann 03/06/2025 9:00 AM EST [facility] Attendance[facility] [place] [facility] [address] [place] [address] 03/06/2025 4:30 PM EST PACE Home Care / PACE Home Visit [facility] [address] [place] [phone] Ashley Eastman 03/07/2025 Lab [facility] MA Occupational Therapy [address] [place] [address] Clemencia Napier, ADITYA Schizophrenia in partial remission with history of multiple episodes (CMS/HCC V24, CMS/HCC V28) 03/07/2025 8:00 AM EST PACE Home Care / PACE Home Visit [facility] [address] [place] [address] Carmen Hartmann 03/07/2025 9:00 AM EST Clinical Support [facility] [address] [place] [address] Bethany Mccabe RN 03/07/2025 9:30 AM EST PACE Home Care / [facility] Visit [facility] [address] [place] [address] Ralph Loyola 03/07/2025 4:30 PM EST PACE Home Care / PACE Home Visit [facility] [address] [place] [address] Ashley Eastman 03/08/2025 12:00 PM EST PACE Home Care / PACE Home Visit [facility] [address] [place] [phone] Dena Chavez 03/09/2025 12:00 PM EST PACE Home Care / PACE Home Visit [facility] [address] [place] [address] Dena Chavez 03/10/2025 8:30 AM EST PACE Home Care / PACE Home Visit [facility] [address] [place] [phone] Carmen Hartmann 03/10/2025 4:30 PM EST PACE Home Care / [facility] [address] [place] [phone] Ashley Eastman 03/11/2025 8:30 AM EST PACE Home Care / P[facility] Visit [facility] [address] [place] [phone] Carmen Hartmann 03/11/2025 4:30 PM EST PACE Home Care / PACE Home Visit [facility] [address] [place] [phone] Ashley Eastman 03/12/2025 8:30 AM EST PACE Home Care / [facility] Home Visit [facility] [address] [place] [phone] Carmen Hartmann 03/12/2025 4:30 PM EST PACE Home Care / P[facility] Home Visit [facility] [address] [place] [address] Ashley Eastman 03/13/2025 8:30 AM EST PACE Home Care / [facility] Home Visit [facility] [address] [place] [address] Carmen Hartmann 03/13/2025 9:00 AM EST [facility] [place] [facility] [address] [place] [address] 03/13/2025 4:30 PM EST PACE Home Care / [facility] Visit [facility] [place] [facility] [address] [place] [address] Ashley Eastman 03/14/2025 8:00 AM EST PACE Home Care / [facility] Home Visit [facility] [address] [place] [phone] Carmen Hartmann 03/14/2025 9:30 AM EST PACE Home Care / [facility] Home Visit [facility] [address] [place] [phone] Ralph Loyola 03/14/2025 4:30 PM EST PACE Home Care / [facility] Home Visit [facility] [address] [place] [phone] Ashley Eastman 03/15/2025 8:30 AM EST PACE Home Care / [facility] Visit [facility] [address] [place] [phone] Marysol Diaz 03/15/2025 12:00 PM EST PACE Home Care / [facility] Home Visit [facility] [address] [place] [phone] Natali Sanford 03/15/2025 5:30 PM EST PACE Home Care / [facility] Visit [facility] [address] [place] [phone] Marysol Diaz 03/16/2025 8:30 AM EST PACE Home Care / [facility] Home Visit [facility] [address] [place] [phone] Marysol Diaz 03/16/2025 12:00 PM EST PACE Home Care / [facility] Home Visit [facility] [address] [place] [phone] Natali Sanford 03/16/2025 4:30 PM EST PACE Home Care / [facility] Visit [facility] [address] [place] [phone] Marysol Diaz 03/16/2025 5:30 PM EST PACE Home Care / [facility] Visit [facility] [address] [place] [phone] [facility] 03/17/2025 8:30 AM EST PACE Home Care / [facility] [address] [place] [phone] Carmen Hartmann 03/17/2025 4:30 PM EST PACE Home Care / [facility] Home Visit [facility] [address] [place] [phone] Ashley Eastman 03/18/2025 8:30 AM EST PACE Home Care / [facility] Home Visit [facility] [address] [place] [phone] Carmen Hartmann 03/18/2025 11:00 AM EST Office Visit [facility] [place] [facility] [address] [place] [phone] Michelle Castillo MD [address] [place] [address] Brigette East LPN 03/18/2025 4:30 PM EST PACE Home Care / [facility] Visit [facility] [address] [place] [address] Ashley Eastman 03/19/2025 8:30 AM EST PACE Home Care / [facility] Home Visit [facility] [address] [place] [address] Carmen Hatrmann 03/19/2025 4:30 PM EST PACE Home Care / [facility] Home Visit [facility] [address] [place] [address] Ashley Eastman 03/20/2025 8:30 AM EST PACE Home Care / [facility] Home Visit [facility] [address] [place] [address] Carmen Hartmann 03/20/2025 9:00 AM EST [facility] [place] [facility] [address] [place] [address] 03/20/2025 4:30 PM EST PACE Home Care / [facility] Visit [facility] [address] [place] [address] Ashley Eastman 03/21/2025 8:00 AM EST PACE Home Care / [facility] Visit [facility] [address] [place] [address] Carmen Hartmann 03/21/2025 9:30 AM EST PACE Home Care / [facility] Visit [facility] [address] [place] [address] Ralph Loyola 03/21/2025 4:30 PM EST PACE Home Care / [facility] Visit [facility] [address] [place] [address] Ashley Eastman 03/22/2025 12:00 PM EST PACE Home Care / [facility] [address] [place] [address] Dena Chavez 03/23/2025 12:00 PM EST PACE Home Care / [facility] [address] [place] [address] Dena Chavez 03/24/2025 8:30 AM EST PACE Home Care / [facility] Visit [facility] [address] [place] [address] Carmen Hartmann 03/24/2025 9:45 AM EST Appointment [address] [phone] Lakia Hou [facility] SUPPORT CONSULTANT 03/24/2025 4:30 PM EST PACE Home Care / PACE Home Visit [facility] [address] [place] [phone] Ashley Eastman 03/25/2025 8:30 AM EST PACE Home Care / PACE Home Visit [facility] [address] [place] [phone] Carmen Hartmann 03/25/2025 4:30 PM EST PACE Home Care / [facility] [address] [place] [phone] Ashley Eastman 03/26/2025 8:30 AM EST PACE Home Care / [facility] Visit [facility] [address] [place] [phone] Carmen Hartmann 03/26/2025 4:30 PM EST PACE Home Care / [facility] Visit [facility] [address] [place] [phone] Ashley Eastman 03/27/2025 8:30 AM EST PACE Home Care / [facility] Visit [facility] [address] [place] [address] Carmen Hartmann 03/27/2025 9:00 AM EST [facility] Attend[facility] [address] [place] [address] 03/27/2025 2:40 PM EST Clinical Support [facility] [place] [address] [place] [address] 03/27/2025 4:30 PM EST PACE Home Care / PACE Home Visit [facility] [address] [place] [address] Ashley Eastman 03/28/2025 8:00 AM EST PACE Home Care / PACE Home Visit [facility] [address] [place] [address] Carmen Hartmann 03/28/2025 10:00 AM EST Clinical Support [facility] [address] [place] [address] Bethany Mccabe RN 03/28/2025 4:30 PM EST PACE Home Care / P[facility] Home Visit [facility] [address] [place] [address] Ashley Eastman 03/29/2025 8:30 AM EST PACE Home Care / P[facility] Home Visit [facility] [address] [place] [address] Marysol Diaz 03/29/2025 12:00 PM EST PACE Home Care / [facility] [address] [place] [phone] Natali Sanford 03/29/2025 5:30 PM EST PACE Home Care / [facility] [address] [place] [address] Marysol Diaz 03/30/2025 8:30 AM EST PACE Home Care / [facility] [address] [place] [address] Marysol Diaz 03/30/2025 12:00 PM EST PACE Home Care / [facility] [address] [place] [phone] Natali Sanford 03/30/2025 4:30 PM EST PACE Home Care / [facility] Visit [facility] [address] [place] [phone] Marysol Diaz 03/30/2025 5:30 PM EST PACE Home Care / [facility] [address] [place] [phone] Marysol Diaz 03/31/2025 8:30 AM EST PACE Home Care / [facility] [address] [place] [phone] Carmen Hartmann 03/31/2025 4:30 PM EST PACE Home Care / [facility] [address] [place] [phone] Ashley Eastman 04/01/2025 8:30 AM EST PACE Home Care / [facility] Visit [facility] [address] [place] [phone] Carmen Hartmann 04/01/2025 1:15 PM EST PACE External Visit [facility] [place] [address] [place] [phone] 04/01/2025 4:30 PM EST PACE Home Care / [facility] [address] [place] [phone] Ashley Eastman 04/02/2025 8:30 AM EST PACE Home Care / [facility] Visit [facility] [address] [place] [address] Carmen Hartmann 04/02/2025 4:30 PM EST PACE Home Care / [facility] [address] [place] [address] Ashley Eastman 04/03/2025 8:30 AM EST P[facility] Home Care / [facility] [address] [place] [address] Carmen Hartmann 04/03/2025 9:00 AM EST [facility] [place] [facility] [address] [place] [address] 04/03/2025 4:30 PM EST PACE Home Care / [facility] [address] [place] [address] Ashley Eastman 04/04/2025 8:00 AM EST P[facility] Home Care / [facility] [address] [place] [address] Carmen Hartmann 04/04/2025 9:30 AM EST P[facility] Home Care / [facility] [address] [place] [address] Ralph Loyola 04/04/2025 4:30 PM EST P[facility] Home Care / [facility] [address] [place] [address] Ashley Eastman 04/05/2025 12:00 PM EST P[facility] Home Care / [facility] [address] [place] [address] Dena Chavez 04/06/2025 12:00 PM EST P[facility] Home Care / [facility] [address] [place] [address] Dena Chavez 2025 8:30 AM EST P[facility] Home Care / [facility] [address] [place] [phone] Carmen Hartmann 2025 4:30 PM EST PACE Home Care / [facility] [address] [place] [address] Ashley Eastman 04/08/2025 8:30 AM EST PACE Home Care / [facility] [address] [place] [phone] Carmen Hartmann 04/08/2025 4:30 PM EST P[facility] Home Care / [facility] [address] [place] [phone] Ashley Eastman 04/09/2025 8:30 AM EST PACE Home Care / [facility] [address] [place] [phone] Carmen Hartmann 04/09/2025 4:30 PM EST PACE Home Care / [facility] [address] [place] [phone] Ashley Eastman 04/10/2025 8:30 AM EST P[facility] Home Care / [facility] [address] [place] [phone] Carmen Hartmann 04/10/2025 9:00 AM EST [facility] [place] [facility] [address] [place] [phone] 04/10/2025 4:30 PM EST PACE Home Care / [facility] [address] [place] [phone] Ashley Eastman 04/11/2025 8:00 AM EST P[facility] Home Care / [facility] [address] [place] [address] Carmen Hartmann 04/11/2025 9:30 AM EST P[facility] Home Care / [facility] [address] [place] [address] Ralph Loyola 04/11/2025 4:30 PM EST PACE Home Care / [facility] [address] [place] [address] Ashley Eastman 04/12/2025 8:30 AM EST PACE Home Care / [facility] Visit [facility] [address] [place] [address] Marysol Diaz 04/12/2025 12:00 PM EST P[facility] Home Care / [facility] [address] [place] [address] Natali Sanford 04/12/2025 5:30 PM EST P[facility] Home Care / [facility] [address] [place] [phone] Marysol Diaz 04/15/2025 11:00 AM EST Office Visit [facility] [address] [place] [address] Michelle Castillo MD [address] [address] Brigette East LPN 04/17/2025 9:00 AM EST PACE Attendance/[facility] [address] [place] [address] 04/18/2025 10:00 AM EST Clinical Support [facility] [address] [place] [address] Bethany Mccabe RN 04/24/2025 9:00 AM EST PACE Attendance/[facility] P[facility] Day [address] [address] 04/24/2025 11:30 AM EST Clinical Support [address] [address] 05/01/2025 9:00 AM EST PACE Attendance/Day Center [facility] PACE Day [address] [address] 05/08/2025 9:00 AM EST PACE Attendance/Day Center [facility] PACE Day [address] [address] 05/09/2025 10:00 AM EST Clinical Support [facility] PACE [address] [phone] Bethany Mccabe RN 05/13/2025 11:00 AM EST Office Visit [facility]ACE [address] [phone] Michelle Castillo MD [address] [place] [phone] Brigette East LPN 05/15/2025 9:00 AM EST PACE Attendance/Day Center [facility] P[facility] Day [address] [address] 05/22/2025 9:00 AM EST PACE Attendance/Day Center [facility] PACE Day [address] [address] 05/29/2025 9:00 AM EST PACE Attendance/Day Center [facility] PACE Day [address] [address] 05/30/2025 10:00 AM EST Clinical Support [facility] PACE [address] [address] Bethany Mccabe RN 06/05/2025 9:00 AM EST PACE Attendance/Day Center [facility] Day [address] [address] 06/10/2025 11:00 AM EST Office Visit [address] [address] Michelle Castillo MD [address] [place] [address] Brigette East LPN 06/12/2025 9:00 AM EST PACE Attendance/Day Center [facility] Day [address] [address] 06/19/2025 9:00 AM EST PACE Attendance/Day Center [facility] Day [address] [address] 06/20/2025 10:00 AM EST Clinical Support [address] [address] Bethany Mccabe RN 06/26/2025 9:00 AM EDT PACE Attendance/Day Center [address] [address] 06/27/2025 1:20 PM EDT Office Visit Gastroenterology - [address] [place] [phone] Analisa Perez NP [address] [place] [address] 07/03/2025 9:00 AM EDT PACE Attendance/Day Center [facility] Day [address] [address] 07/10/2025 9:00 AM EDT PACE Attendance/Day Center [facility] Day [address] [address] 07/11/2025 10:00 AM EDT Clinical Support [facility] [address] [place] [address] Bethany Mccabe RN 07/17/2025 9:00 AM EDT [facility] Att[facility]ance[facility] [address] [place] [phone] 07/17/2025 3:30 PM EDT PACE External Visit [facility] [address] [place] [address] 07/24/2025 9:00 AM EDT PACE Attendance[facility] [address] [address] 07/31/2025 9:00 AM EDT PACE Attendance[facility] [address] [place] [phone] 08/01/2025 10:00 AM EDT Clinical Support [facility] [address] [place] [phone] Bethany Mccabe RN 08/07/2025 9:00 AM EDT [facility]ACE Att[facility]ance[facility] [facility] [address] [address] 08/14/2025 9:00 AM EDT PACE Attendance[facility] [address] [place] [phone] 08/21/2025 9:00 AM EDT [facility] Att[facility] [facility] [address] [place] [phone] 08/22/2025 10:00 AM EDT Clinical Support [facility] [address] [place] [phone] Bethany Mccabe RN 08/28/2025 9:00 AM EDT PACE Attendance[facility] [address] [address] 09/04/2025 9:00 AM EDT [facility] Att[facility] [address] [place] [phone] 09/11/2025 9:00 AM EDT PACE Attendance[facility] [address] [place] [phone] 09/12/2025 10:00 AM EDT Clinical Support [facility] [address] [place] [phone] Bethany Mccabe RN 09/18/2025 9:00 AM EDT PACE Attendance[facility] [address] [place] [phone] 09/25/2025 9:00 AM EDT PACE Attendance/[facility] [address] [place] [phone] 10/02/2025 9:00 AM EDT [facility] Att[facility]ance[facility] [address] [place] [phone] 10/03/2025 10:00 AM EDT Clinical Support [facility] [address] [address] Bethany Mccbae RN 10/09/2025 9:00 AM EDT [facility] Attendance[facility] [facility] [address] [address] 10/24/2025 10:00 AM EDT Clinical Support [facility] [address] [place] [phone] Bethany Mccabe, HEIDI 11/14/2025 10:00 AM EDT Clinical Support [facility] [address] [place] [phone] Bethany Mccabe, HEIDI 12/05/2025 10:00 AM EDT Clinical Support [facility] [address] [place] [phone] Bethany Mccabe RN 12/26/2025 10:00 AM EDT Clinical Support [address] [address] Bethany Mccabe RN 01/16/2026 10:00 AM EDT Clinical Support [address] [address] Bethany Mccabe RN 02/06/2026 10:00 AM EDT Clinical Support [address] [address] Bethany Mccabe RN 02/27/2026 10:00 AM EST Clinical Support [address] [phone] Bethany Mccabe RN documented as of this encounter Visit Diagnoses Not on filedocumented in this encounter Additional Health Concerns Infection Onset Date Last Indicated Resolved Time Gastrointestinal Rule-Out 02/10/2025 02/10/2025 documented as of this encounter Care Teams Elementary Principal Relationship Specialty Start Date End Date Regulo Ivy NP [address] [place] [phone] PCP - General KELLI 06/07/24 documented as of this encounter
--- OUTSIDE RECORDS SUMMARY | 2025-02-11 19:43 | XMS_ITS | Encounter Summary ---
Author Organization [facility] Address [address] [place] [address] Care Team Providers Care Heating And Ventilating Worker Name Role Phone Regulo Ivy NP Primary Care Provider [phone] Reason for Referral * Consultation (Routine) - Closed Specialty Diagnoses / Procedures Referred By Contac t Referred To Contact Urology Diagnoses Breakthrough seizure (CMS/HCC V24, CMS/HCC V28) Transient ischemic attack (TIA) Regulo Ivy NP [address] [address] Phone: tel: fax:[phone] [facility] Urology Unit [address] [place] [address] Phone: tel: Referral ID Status Reason Start Date Expiration Date V isits Requested Visits Authorized [id number] Closed Consult and Treat 02/03/2025 02/05/2025 1 1 Encounter Details Date Type Department Care Team (Late st Contact Info) Description 02/03/2025 PACE Admissions [facility] P[facility] Clinic [address] [place] [address] Justa Leon, HEIDI Breakthrough seizure ([facility] V24, [facility] V28) (Primary Dx); Transient ischemic attack (TIA) Social History Tobacco Use Types Packs/Day Years [...] for your loved ones. For example, child welfare manager or elderly care for an older adult? [...] 02/10/2025 8:39 AM Naomy Pa RN * [place] Suicide Severity Rating Scale (Screener/Recent Self-Report) Question Answer Date of Assessment Author 1. Wish to be (Past 1 Month) No 025 8:39 AM EDT Naomy Masterson, HEIDI 2. Non-Specific Active Suici sage Thoughts (Past 1 Month) No 02/10/2025 8:39 AM EDT Naomy Masterson, HEIDI 6. Suicidal Behavior (Lifetime) No 8:39 AM EDT Naomy Masterson, RN documented as of this encounter Mental Status * Because of a physical, mental, or emotional condition, do you have serious difficulty concentrating, remembering, or making decisions? (5 years old or older) Answer Entry Date Author Yes 02/03/2025 3:31 PM EDT Malachi Rehman RN documented in this encounter Progress Notes * Justa Leon RN - 02/03/2025 4:21 PM EDT 02/10/25 Late entry. Par discharged to home after hours on 02/05/2025. On-call provider notified ofmedication changes and discharge summary shared with clinic prior to end of shift. No changes to psychiatric meds. Niece updated. RTC Planned. 02/04/25 Par is admitted observation status with diagnosis of recurrent seizure. Ceribell EEG completed last night. Neurology consult is pending. 02/03/25 Par is at the [facility] ED being evaluated for seizures. No disposition yet. On-call team updated. documented in this encounter Plan of Treatment Upcoming Encounters Date Type Department Care Team (Latest Contact Info) Description 02/12/2025 8:30 AM EDT PACE Home Care / [facility] Home Visit [facility] [address] [place] [phone] Carmen Hartmann 02/12/2025 4:30 PM EDT PACE Home Care / P[facility] Home Visit [facility] [address] [place] [phone] Ashley Eastman 02/13/2025 8:30 AM EDT PACE Home Care / PACE Home Visit [facility] [address] [place] [phone] Carmen Hartmann 02/13/2025 9:00 AM EDT PACE Attendance/[facility] [place] [facility] [address] [place] [address] 02/13/2025 4:30 PM EDT PACE Home Care / PACE Home Visit [facility] [address] [place] [phone] Ashley Eastman 02/14/2025 8:00 AM EDT PACE Home Care / PACE Home Visit [facility] [address] [place] [phone] Carmen Hartmann 02/14/2025 9:30 AM EDT PACE Home Care / PACE Home Visit [facility] [address] [place] [phone] Ralph Loyola 02/14/2025 4:30 PM EDT PACE Home Care / PACE Home Visit [facility] [address] [place] [phone] Ashley Eastman 02/15/2025 8:30 AM EDT PACE Home Care / PACE Home Visit [facility] [address] [place] [phone] Marysol Diaz 02/15/2025 12:00 PM EDT PACE Home Care / [facility] [address] [place] [phone] Natali Sanford 02/15/2025 5:30 PM EDT PACE Home Care / [facility] [place] [facility] [address] [place] [phone] Marysol Diaz 02/16/2025 8:30 AM EST PACE Home Care / PACE Home Visit [facility] [address] [place] [phone] Marysol Diaz 02/16/2025 12:00 PM EST PACE Home Care / [facility] [place] [facility] [address] [place] [phone] Natali Sanford 02/16/2025 4:30 PM EST PACE Home Care / [facility] [place] [facility] [address] [place] [phone] Marysol Diaz 02/16/2025 5:30 PM EST PACE Home Care / [facility] [place] [facility] [address] [place] [phone] Marysol Diaz 02/17/2025 8:30 AM EST PACE Home Care / [facility] [place] [facility] [address] [place] [phone] Carmen Hartmann 02/17/2025 11:00 AM EST [facility] Visit [facility] [place] [facility] [address] [place] [address] Michelle Castillo MD [address] [place] [phone] 02/17/2025 4:30 PM EST PACE Home Care / [facility] [place] [facility] [address] [place] [phone] Ashley Eastman 02/18/2025 8:30 AM EST P[facility] Home Care / [facility] [place] [facility] [address] [place] [phone] Carmen Hartmann 02/18/2025 11:00 AM EST [facility] Visit [facility] [place] [facility] [address] [place] [address] Michelle Castillo MD [address] [address] Brigette EastVICKY 02/18/2025 4:30 PM EST PACE Home Care / [facility] [place] [facility] [address] [place] [phone] Ashley Eastman 02/19/2025 8:30 AM EST P[facility] Home Care / [facility] [place] [facility] [address] [place] [phone] Carmen Hartmann 02/19/2025 4:30 PM EST PACE Home Care / [facility] [place] [facility] [address] [place] [phone] Ashley Eastman 02/20/2025 8:30 AM EST PACE Home Care / [facility] [place] [facility] [address] [place] [phone] Carmen Hartmann 02/20/2025 9:00 AM EST [facility] [facility] [place] [facility] [address] [place] [address] 02/20/2025 4:30 PM EST PACE Home Care / [facility] [place] [facility] [address] [place] [phone] Ashley Eastman 02/21/2025 8:00 AM EST P[facility] Home Care / [facility] [place] [facility] [address] [place] [phone] Carmen Hartmann 02/21/2025 9:30 AM EST PACE Home Care / [facility] [place] [facility] [address] [place] [phone] Ralph Loyola 02/21/2025 4:30 PM EST PACE Home Care / [facility] Visit [facility] [place] [facility] [address] [place] [phone] Ashley Eastman 02/22/2025 12:00 PM EST PACE Home Care / [facility] Visit [facility] [place] [facility] [address] [place] [phone] Dean Chavez 02/23/2025 12:00 PM EST PACE Home Care / [facility] [place] [facility] [address] [place] [phone] Dena Chavez 02/24/2025 8:30 AM EST PACE Home Care / [facility] [place] [facility] [address] [place] [phone] Carmen Hartmann 02/24/2025 4:30 PM EST PACE Home Care / [facility] [place] [facility] [address] [place] [phone] Ashley Eastman 02/25/2025 8:30 AM EST PACE Home Care / [facility] [place] [facility] [address] [place] [phone] Carmen Hartmann 02/25/2025 4:30 PM EST PACE Home Care / [facility] [place] [facility] [address] [place] [phone] Ashley Eastman 02/26/2025 8:30 AM EST PACE Home Care / [facility] Visit [facility] [place] [facility] [address] [place] [phone] Carmen Hartmann 02/26/2025 4:30 PM EST PACE Home Care / [facility] [place] [facility] [address] [place] [phone] Ashley Eastman 02/27/2025 8:30 AM EST PACE Home Care / [facility] Visit [facility] [place] [facility] [address] [place] [phone] Carmen Núñez 02/27/2025 9:00 AM EST [facility] [place] [facility] [address] [place] [address] 02/27/2025 4:30 PM EST PACE Home Care / [facility] [place] [facility] [address] [place] [address] Ashley Eastman 02/28/2025 8:00 AM EST PACE Home Care / [facility] Visit [facility] [place] [facility] [address] [place] [address] Carmen Hartmann 02/28/2025 9:30 AM EST PACE Home Care / [facility] [place] [facility] [address] [place] [address] Ralph Loyola 02/28/2025 4:30 PM EST PACE Home Care / [facility] [place] [facility] [address] [place] [address] Ashley Eastman 03/01/2025 8:30 AM EST PACE Home Care / [facility] [place] [facility] [address] [place] [phone] Marysol Diaz 03/01/2025 12:00 PM EST PACE Home Care / [facility] Visit [facility] [place] [facility] [address] [place] [phone] Natali Sanford 03/01/2025 5:30 PM EST PACE Home Care / [facility] Visit [facility] [place] [facility] [address] [place] [phone] Marysol Diaz 03/02/2025 8:30 AM EST PACE Home Care / [facility] Visit [facility] [place] [facility] [address] [place] [phone] Marysol Diaz 03/02/2025 12:00 PM EST PACE Home Care / [facility] [place] [facility] [address] [place] [address] Natali Sanford 03/02/2025 4:30 PM EST PACE Home Care / [facility] [place] [facility] [address] [place] [address] Marysol Diaz 03/02/2025 5:30 PM EST PACE Home Care / [facility] Visit [facility] [place] [facility] [address] [place] [phone] Marysol Diaz 03/03/2025 8:30 AM EST PACE Home Care / [facility] Visit [facility] [place] [facility] [address] [place] [phone] Carmen Hartmann 03/03/2025 4:30 PM EST PACE Home Care / [facility] Visit [facility] [place] [facility] [address] [place] [phone] Ashley Eastman 03/04/2025 8:30 AM EST PACE Home Care / P[facility] Visit [facility] [place] [facility] [address] [place] [phone] Carmen Hartmann 03/04/2025 4:30 PM EST PACE Home Care / [facility] Visit [facility] [place] [facility] [address] [place] [phone] Ashley Eastman 03/05/2025 8:30 AM EST PACE Home Care / [facility] [place] [facility] [address] [place] [phone] Carmen Hartmann 03/05/2025 4:30 PM EST PACE Home Care / [facility] Visit [facility] [place] [facility] [address] [place] [phone] Ashley Eastman 03/06/2025 8:30 AM EST PACE Home Care / PACE Home Visit [facility] [address] [place] [address] Carmen Hartmann 03/06/2025 9:00 AM EST PACE Attendance[facility] [place] [facility] [address] [place] [address] 03/06/2025 4:30 PM EST PACE Home Care / PACE Home Visit [facility] [address] [place] [address] Ashley Eastman 03/07/2025 Lab [facility] MA Occupational Therapy [address] [place] [address] Clemencia Napier, OT Schizophrenia in partial remission with history of multiple episodes (CMS/HCC V24, CMS/HCC V28) 03/07/2025 8:00 AM EST PACE Home Care / PACE Home Visit [facility] [address] [place] [address] Carmen Hartmann 03/07/2025 9:00 AM EST Clinical Support [facility] [place] [facility] [address] [place] [phone] Bethany Mccabe RN 03/07/2025 9:30 AM EST PACE Home Care / PACE Home Visit [facility] [address] [place] [phone] Ralph Loyola 03/07/2025 4:30 PM EST PACE Home Care / PACE Home Visit [facility] [address] [place] [phone] Ashley Eastman 03/08/2025 12:00 PM EST PACE Home Care / PACE Home Visit [facility] [address] [place] [address] Dena Chavez 03/09/2025 12:00 PM EST PACE Home Care / [facility] Visit [facility] [place] [facility] [address] [place] [address] Dena Chavez 03/10/2025 8:30 AM EST PACE Home Care / P[facility] Visit [facility] [place] [facility] [address] [place] [address] Carmen Hartmann 03/10/2025 4:30 PM EST PACE Home Care / [facility] Visit [facility] [place] [facility] [address] [place] [address] Ashley Eastman 03/11/2025 8:30 AM EST PACE Home Care / [facility] Visit [facility] [place] [facility] [address] [place] [phone] Carmen Hartmann 03/11/2025 4:30 PM EST PACE Home Care / [facility] Visit [facility] [place] [facility] [address] [place] [phone] Ashley Eastman 03/12/2025 8:30 AM EST PACE Home Care / [facility] [place] [facility] [address] [place] [phone] Carmen Hartmann 03/12/2025 4:30 PM EST PACE Home Care / [facility] Visit [facility] [place] [facility] [address] [place] [phone] Ashley Eastman 03/13/2025 8:30 AM EST PACE Home Care / [facility] Visit [facility] [place] [facility] [address] [place] [phone] Carmen Hartmann 03/13/2025 9:00 AM EST [facility] Att[facility] [place] [facility] [address] [place] [address] 03/13/2025 4:30 PM EST PACE Home Care / [facility] [place] [facility] [address] [place] [phone] Ashley Eastman 03/14/2025 8:00 AM EST PACE Home Care / [facility] Visit [facility] [place] [facility] [address] [place] [phone] Carmen Hartmann 03/14/2025 9:30 AM EST PACE Home Care / [facility] Visit [facility] [place] [facility] [address] [place] [phone] NirRalph 03/14/2025 4:30 PM EST PACE Home Care / [facility] Visit [facility] [place] [facility] [address] [place] [phone] Ashley Eastman 03/15/2025 8:30 AM EST PACE Home Care / [facility] Visit [facility] [place] [facility] [address] [place] [phone] Marysol Diaz 03/15/2025 12:00 PM EST PACE Home Care / [facility] [place] [facility] [address] [place] [phone] Natali Sanford 03/15/2025 5:30 PM EST PACE Home Care / [facility] Visit [facility] [place] [facility] [address] [place] [phone] Marysol Diaz 03/16/2025 8:30 AM EST PACE Home Care / [facility] [place] [facility] [address] [place] [phone] Marysol Diaz 03/16/2025 12:00 PM EST PACE Home Care / [facility] [place] [facility] [address] [place] [phone] Natali Sanford 03/16/2025 4:30 PM EST P[facility] Home Care / [facility] [place] [facility] [address] [place] [phone] Marysol Diaz 03/16/2025 5:30 PM EST PACE Home Care / [facility] [place] [facility] [address] [place] [address] Marysol Diaz 03/17/2025 8:30 AM EST PACE Home Care / [facility] [place] [facility] [address] [place] [address] Carmen Hartmann 03/17/2025 4:30 PM EST PACE Home Care / [facility] [place] [facility] [address] [place] [phone] Ashley Eastman 03/18/2025 8:30 AM EST PACE Home Care / [facility] [place] [facility] [address] [place] [phone] Carmen Hartmann 03/18/2025 11:00 AM EST [facility] Visit [facility] [place] [facility] [address] [place] [phone] Michelle Castillo MD [address] [address] Brigette East LPN 03/18/2025 4:30 PM EST PACE Home Care / [facility] [place] [facility] [address] [place] [phone] Ashley Eastman 03/19/2025 8:30 AM EST P[facility] Home Care / [facility] Visit [facility] [place] [facility] [address] [place] [phone] Carmen Hartmann 03/19/2025 4:30 PM EST PACE Home Care / [facility] Visit [facility] [place] [facility] [address] [place] [phone] Ashley Eastman 03/20/2025 8:30 AM EST P[facility] Home Care / [facility] [place] [facility] [address] [place] [address] Carmen Hartmann 03/20/2025 9:00 AM EST [facility] [facility] [place] [facility] [address] [place] [address] 03/20/2025 4:30 PM EST PACE Home Care / [facility] [place] [facility] [address] [place] [address] Ashley Eastman 03/21/2025 8:00 AM EST PACE Home Care / [facility] Visit [facility] [place] [facility] [address] [place] [phone] Carmen Hartmann 03/21/2025 9:30 AM EST PACE Home Care / [facility] Visit [facility] [place] [facility] [address] [place] [phone] Ralph Loyola 03/21/2025 4:30 PM EST PACE Home Care / [facility] Visit [facility] [place] [facility] [address] [place] [phone] Ashley Eastman 03/22/2025 12:00 PM EST PACE Home Care / [facility] Visit [facility] [place] [facility] [address] [place] [phone] Dena Chavez 03/23/2025 12:00 PM EST PACE Home Care / [facility] Visit [facility] [place] [facility] [address] [place] [phone] Dena Chavez 03/24/2025 8:30 AM EST PACE Home Care / [facility] [place] [facility] [address] [place] [address] Carmen Hartmann 03/24/2025 9:45 AM EST Appointment [facility] Xray [address] [place] [address] Lakia Hou, D[employer]IN[employer]OWER 03/24/2025 4:30 PM EST PACE Home Care / P[facility] Visit [facility] [address] [place] [phone] Ashley Eastman 03/25/2025 8:30 AM EST PACE Home Care / [facility] Visit [facility] [address] [place] [phone] Carmen Hartmann 03/25/2025 4:30 PM EST PACE Home Care / P[facility] Home Visit [facility] [address] [place] [phone] Ashley Eastman 03/26/2025 8:30 AM EST PACE Home Care / P[facility] Visit [facility] [address] [place] [phone] Carmen Hartmann 03/26/2025 4:30 PM EST PACE Home Care / P[facility] Home Visit [facility] [address] [place] [phone] Ashley Eastman 03/27/2025 8:30 AM EST PACE Home Care / P[facility] Home Visit [facility] [address] [place] [phone] Carmen Hartmann 03/27/2025 9:00 AM EST PACE Attendance/[facility] [address] [place] [phone] 03/27/2025 2:40 PM EST Clinical Support [facility] [place] [address] [place] [phone] 03/27/2025 4:30 PM EST PACE Home Care / PACE Home Visit [facility] [address] [place] [phone] Ashley Eastman 03/28/2025 8:00 AM EST PACE Home Care / P[facility] Home Visit [facility] [address] [place] [address] Carmen Hartmann 03/28/2025 10:00 AM EST Clinical Support [facility] [place] [facility] [address] [place] [address] Bethany Mccabe RN 03/28/2025 4:30 PM EST PACE Home Care / PACE Home Visit [facility] [address] [place] [address] Ashley Eastman 03/29/2025 8:30 AM EST PACE Home Care / P[facility] Home Visit [facility] [address] [place] [phone] Marysol Diaz 03/29/2025 12:00 PM EST PACE Home Care / P[facility] Home Visit [facility] [address] [place] [address] Natali Sanford 03/29/2025 5:30 PM EST PACE Home Care / P[facility] Visit [facility] [address] [place] [phone] Marysol Diaz 03/30/2025 8:30 AM EST PACE Home Care / P[facility] Visit [facility] [address] [place] [address] Marysol Diaz 03/30/2025 12:00 PM EST PACE Home Care / P[facility] Home Visit [facility] [address] [place] [phone] Natali Sanford 03/30/2025 4:30 PM EST PACE Home Care / P[facility] Visit [facility] [address] [place] [phone] Marysol Diaz 03/30/2025 5:30 PM EST P[facility] Home Care / [facility] [place] [facility] [address] [place] [address] Marysol Diaz 03/31/2025 8:30 AM EST P[facility] Home Care / [facility] [place] [facility] [address] [place] [address] Carmen Hartmann 03/31/2025 4:30 PM EST P[facility] Home Care / [facility] [place] [facility] [address] [place] [address] Ashley Eatsman 04/01/2025 8:30 AM EST P[facility] Home Care / [facility] [place] [facility] [address] [place] [address] Carmen Hartmann 04/01/2025 1:15 PM EST [facility] [address] [place] [address] 04/01/2025 4:30 PM EST P[facility] Home Care / [facility] [place] [facility] [address] [place] [address] Ashley Eastman 04/02/2025 8:30 AM EST P[facility] Home Care / [facility] [place] [facility] [address] [place] [address] Carmen Hartmann 04/02/2025 4:30 PM EST P[facility] Home Care / [facility] [place] [facility] [address] [place] [address] Ashley Eastman 04/03/2025 8:30 AM EST P[facility] Home Care / [facility] [place] [facility] [address] [place] [address] Carmen Hartmann 04/03/2025 9:00 AM EST [facility] [facility] [place] [facility] [address] [place] [address] 04/03/2025 4:30 PM EST PACE Home Care / [facility] [place] [facility] [address] [place] [address] Ashley Eastman 04/04/2025 8:00 AM EST P[facility] Home Care / [facility] Visit [facility] [place] [facility] [address] [place] [address] Carmen Hartmann 04/04/2025 9:30 AM EST P[facility] Home Care / [facility] [place] [facility] [address] [place] [address] Ralph Loyola 04/04/2025 4:30 PM EST P[facility] Home Care / [facility] Visit [facility] [place] [facility] [address] [place] [address] Ashley Eastman 04/05/2025 12:00 PM EST P[facility] Home Care / [facility] [place] [facility] [address] [place] [phone] Dena Chavez 04/06/2025 12:00 PM EST P[facility] Home Care / [facility] [place] [facility] [address] [place] [address] [phone] Dena Chavez 2025 8:30 AM EST [facility] / [facility] [address] [place] [address] Carmen Hartmann 2025 4:30 PM EST [facility] [place] [facility] [address] [place] [address] Ashley Eastman 04/08/2025 8:30 AM EST [facility] [place] [facility] [address] [place] [address] Carmen Hartmann 04/08/2025 4:30 PM EST [facility] [place] [facility] [address] [place] [address] Ashley Eastman 04/09/2025 8:30 AM EST [facility] [place] [facility] [address] [place] [address] Carmen Hartmann 04/09/2025 4:30 PM EST [facility] [place] [facility] [address] [place] [phone] Ashley Eastman 04/10/2025 8:30 AM EST [facility] [place] [facility] [place] [facility] [address] [place] [phone] Carmen Hartmann 04/10/2025 9:00 AM EST [facility] [facility] [place] [facility] [address] [place] [phone] 04/10/2025 4:30 PM EST [facility] [place] [facility] [address] [place] [phone] Ashley Eastman 04/11/2025 8:00 AM EST [facility] [place] [facility] [address] [place] [phone] Carmen Hartmann 04/11/2025 9:30 AM EST [facility] [place] [facility] [address] [place] [phone] Ralph Loyola 04/11/2025 4:30 PM EST [facility] [place] [facility] [address] [place] [phone] Ashley Eastman 04/12/2025 8:30 AM EST [facility] / [facility] [place] [facility] [address] [place] [phone] Maryosl Diaz 04/12/2025 12:00 PM EST [facility] / [facility] [place] [facility] [address] [place] [phone] Natali Sanford 04/12/2025 5:30 PM EST [facility] [place] [facility] [address] [place] [phone] Marysol Diaz 04/15/2025 11:00 AM EST [facility] [address] [place] [phone] Michelle Castillo MD [address] [place] [phone] Brigette East LPN 04/17/2025 9:00 AM EST [facility] [address] [place] [phone] 04/18/2025 10:00 AM EST Clinical Support [facility] [address] [place] [phone] Bethany Mccabe RN 04/24/2025 9:00 AM EST [facility] Att[facility] [address] [place] [phone] 04/24/2025 11:30 AM EST [facility] [address] [phone] 05/01/2025 9:00 AM EST P[facility] Attendance/Day Center [facility] [place] [facility] [address] [place] [phone] 05/08/2025 9:00 AM EST [facility] [address] [place] [phone] 05/09/2025 10:00 AM EST Clinical Support [facility] [address] [place] [phone] Bethany Mccabe RN 05/13/2025 11:00 AM EST Office Visit [facility] [address] [phone] Michelle Castillo MD [address] [place] [phone] Brigette East LPN 05/15/2025 9:00 AM EST [facility] [address] [place] [phone] 05/22/2025 9:00 AM EST [facility] Att[facility] [place] [facility] [address] [place] [phone] 05/29/2025 9:00 AM EST [facility] Attend[facility] P[facility] Day [address] [phone] 05/30/2025 10:00 AM EST Clinical Support [facility] [place] [facility] [address] [phone] Bethany Mccabe RN 06/05/2025 9:00 AM EST [facility] Att[facility] [address] [place] [phone] 06/10/2025 11:00 AM EST Office Visit [facility] [address] [place] [phone] Michelle Castillo MD [address] [place] [phone] Brigette East LPN 06/12/2025 9:00 AM EST [facility] [address] [place] [phone] 06/19/2025 9:00 AM EST [facility] Att[facility] [address] [place] [phone] 06/20/2025 10:00 AM EST [facility] [address] [place] [phone] Bethany Mccabe, HEIDI 06/26/2025 9:00 AM EDT [facility] Attendance[facility] Day Center [address] [place] [phone] 06/27/2025 1:20 PM EDT Office Visit Gastroenterology - [address] [place] [phone] Analisa Perez, BOTTLE BLOWER [address] [place] [phone] 07/03/2025 9:00 AM EDT [facility] [address] [place] [phone] 07/10/2025 9:00 AM EDT [facility] Att[facility] Day [address] [phone] 07/11/2025 10:00 AM EDT [facility] [address] [place] [phone] Bethany Mccabe, HEIDI 07/17/2025 9:00 AM EDT P[facility] Attendance/Day Center [facility] Day Center [address] [place] [phone] 07/17/2025 3:30 PM EDT [facility] [address] [phone] 07/24/2025 9:00 AM EDT [facility] Att[facility] P[facility] Day [address] [phone] 07/31/2025 9:00 AM EDT [facility] [facility] [place] [facility] [address] [place] [phone] 08/01/2025 10:00 AM EDT Clinical [place] [facility] [place] [facility] [address] [place] [phone] Bethany Mccabe RN 08/07/2025 9:00 AM EDT [facility] [facility] [place] [facility] [address] [place] [phone] 08/14/2025 9:00 AM EDT [facility] [facility] [place] [facility] [address] [place] [phone] 08/21/2025 9:00 AM EDT [facility] [facility] [place] [facility] [address] [place] [phone] 08/22/2025 10:00 AM EDT Clinical Support [facility] [place] [facility] [address] [place] [phone] Bethany Mccabe RN 08/28/2025 9:00 AM EDT [facility] Att[facility] [place] [facility] [address] [place] [phone] 09/04/2025 9:00 AM EDT [facility] [place] [facility] [address] [place] [phone] 09/11/2025 9:00 AM EDT [facility] [place] [facility] [address] [place] [phone] 09/12/2025 10:00 AM EDT Clinical Support [facility] [place] [facility] [address] [place] [phone] Bethany Mccabe, RN 09/18/2025 9:00 AM EDT [facility] [address] [place] [phone] 09/25/2025 9:00 AM EDT [facility] [place] [facility] [address] [place] [phone] 10/02/2025 9:00 AM EDT [facility] [place] [facility] [address] [place] [phone] 10/03/2025 10:00 AM EDT Clinical Support [facility] [place] [facility] [address] [place] [phone] Bethany Mccabe, HEIDI 10/09/2025 9:00 AM EDT [facility] Attend[facility] [place] [facility] [address] [phone] 10/24/2025 10:00 AM EDT Clinical Support [facility] [place] [address] [phone] Bethany Mccabe, HEIDI 11/14/2025 10:00 AM EDT Clinical Support [facility] [place] [facility] [address] [place] [phone] Bethany Mccabe, HEIDI 12/05/2025 10:00 AM EDT Clinical Support [facility] [place] [facility] [address] [place] [phone] Bethany Mccabe, HEIDI 12/26/2025 10:00 AM EDT Clinical Support [facility] [place] [facility] [address] [place] [phone] Bethany Mccabe, HEIDI 01/16/2026 10:00 AM EDT Clinical Support [facility] [place] [facility] [address] [place] [phone] Bethany Mccabe, HEIDI 02/06/2026 10:00 AM EDT Clinical Support [facility] [place] [facility] [address] [place] [phone] Bethany Mccabe, RN 02/27/2026 10:00 AM EST [facility] Support [facility] [place] [facility] [address] [place] [phone] Bethany Mccabe RN Scheduled Referrals Name Type Priority Associated Diagnoses Orde r Schedule PACE Admisssion Outpatient Referral Routine Breakthrough seizure ([facility] V24, [facility] V28) Transient ischemic attack (TIA) Ordered: 02/10/2025 documented as of this encounter Visit Diagnoses Diagnosis Breakthrough seizure ([facility] V24, [facility] V28)- Primary Transient ischemic attack (TIA) Unspecified transient cerebral ischemia Schizophrenia in partial remission with history of multiple episodes ([facility] V24, [facility] V28) documented in this encounter Care Teams 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
--- OUTSIDE RECORDS SUMMARY | 2025-02-11 19:44 | XMS_ITS | Clinical Summary ---
Author Organization [facility] Address [address] [place] [address] Care Team Providers Care Roof Shingler Name Role Phone Regulo Ivy Primary Care Provider [phone] Allergies Active Allergy Reactions Criticality Noted Date [...] once daily Quantity: 527; Refills: 0 Started [id number] Active 5 Active albuterol (PROAIR HFA,VENTOLIN HFA) [...] ns:Intractable generalized idiopathic epilepsy without status epilepticus Take 1 tablet (100 mg total) by mouth 2 times a day. 180 tablet 3 3 Active levETIRAcetam (KEPPRA) 1,000 mg tabletIndicatio ns:Intractable generalized idiopathic epilepsy without status epilepticus Take 2 tablets (2,000 mg total) by mouth 2 times a day. 120 tablet 3 3 Active lamoTRIgine (LaMICtal) 25 mg tabletIndicatio ns:Intractable generalized idiopathic epilepsy without status epilepticus Take 3 tablets (75 mg total) by mouth every evening. 180 tablet 1 3 Active topiramate (TOPAMAX) 50 mg tabletIndicatio ns:Intractable generalized idiopathic epilepsy without status epilepticus Take 1 tablet (50 mg total) by [...] to reestablish care since I returned to [facility]. Since she was last seen in [...] (2 - Td or Tdap) 08/28/2021 08/29/2011 Basic Metabolic Panel 03/30/2024 03/30/2023 , 01/27/2021, 08/12/2020, Additional history exists Alcohol/Substance Use Screening 04/17/2024 Depression Screening and Follow-Up 04/17/2024 Health Care Proxy Review 04/17/2024 Social Drivers of Health Annual Screening 04/17/2024 COVID-19 Vaccine ( season) 2024 01/13/2022, 02/07/2021, 07/30/2020, Additional history exists Influenza Vaccine (#1) 2024 , 02/07/2021, 12/30/2019, Additional history exists Zoster Vaccines Completed 02/28/2020, 12/30/2019 Hepatitis B Vaccines Aged Out No long er eligible based on patient's age to complete this topic Procedures * Due to [place] [employer] law, this organization might not be sharing negative HIV tests. Procedure Name Priority Date/Time Associated Diagnosis Comments COMPREHENSIVE METABOLIC PANEL Routine 03/30/2023 3:13 PM EST Intractable generalized idiopathic epilepsy without status epilepticus from Last 3 Months or Most Recently Relevant to Health Maintenance Results * Due to [place] [employer] law, this organization might not be sharing negative HIV tests. * (ABNORMAL) Comprehensive Metabolic Panel (03/30/2023 3:13 PM EST) NA 138 135 - 145 mmol/L 03/30/2023 5:42 PM EST [facility] K 4.1 3.5 - 5.3 mmol/L 03/30/2023 5:42 PM EST [facility] Cl 104 97 - 110 mmol/L 03/30/2023 5:42 PM EST [facility] CO2 22(L) 24 - 32 mmol/L 03/30/2023 5:42 PM EST [facility] Anion Gap 12 5 - 15 03/30/2023 5:42 PM EST [facility] Glucose 133(H) 70 - 99 mg/dL 03/30/2023 5:42 PM EST [facility] Creatinine 1.03 0.50 - 1.20 mg/dL 03/30/2023 5:42 PM EST [facility] Calcium 9.4 8.7 - 10.7 mg/dL 03/30/2023 5:42 PM EST [facility] Total Protein 7.2 6.0 - 8.0 g/dL 03/30/2023 5:42 PM EST [facility] Albumin 4.4 3.5 - 4.8 g/dL 03/30/2023 5:42 PM EST [facility] Bilirubin, Total 0.3 0.3 - 1.2 mg/dL 03/30/2023 5:42 PM EST [facility] Alkaline Phosphatase 54 30 - 115 U/L 03/30/2023 5:42 PM EST [facility] AST 12 10 - 40 U/L 03/30/2023 5:42 PM EST [facility] ALT 17 10 - 40 U/L 03/30/2023 5:42 PM EST [facility] BUN 17 7 - 23 mg/dL 03/30/2023 5:42 PM EST [facility] eGFR 61 >=60 mL/min/1. 73m2 03/30/2023 5:42 PM EST [facility] Comment:The estimated [...] LAB BLOOD ORDERABLES Final Resul t [facility] [address] [place] [address], from Last 3 Months or Most Recently Relevant to Health Maintenance Insurance [facility] Care Teams Roof Shingler Relationship Specialty Start Date End Date Regulo Ivy [address] [place] [phone] PCP - General 03/27/23
--- OUTSIDE RECORDS SUMMARY | 2025-02-11 19:44 | XMS_ITS | Encounter Summary ---
Author Organization [facility] Address [address] [place] [address] Care Team Providers Care Serger Name Role Phone Regulo Ivy NP Primary Care Provider [phone] Reason for Visit * Reason Onset Date Comments Appointment 01/10/2025 Encounter Details Date Type Department Care Team (Late st Contact Info) Description 01/10/2025 Telephone Gastroenterology - [place] [address] [facility] [address] [place] [address] Analisa Perez NP [address] [place] [phone] Social History Tobacco Use Types Packs/Day Years [...] your loved ones. For example, children's tutor nursery or elderly care for an older adult? [...] Author No Risk Indicated 02/09/2025 6:37 PM EDT Jody Mendoza RN * [facility] Suicide Severity Rating Scale (Screener/Recent Self-Report) Question Answer Date of Assessment Author 1. Wish to be (Past 1 Month) No 6:37 PM EDT Jody Mendoza RN 2. Non-Specific Active Suici sage Thoughts (Past 1 Month) No 02/09/2025 6:37 PM EDT Madiha Mendoza RN 6. Suicidal Behavior (Lifetime) No 6:37 PM EDT Jody Mendoza RN documented as of this encounter Progress Notes * Ramona Eastman - 01/10/2025 11:37 AM EDT LVMTCB and schedule 6 month f/u visit with Analisa Constipation, unspecified constipation type , Dyspepsia documented in this encounter Plan of Treatment Upcoming Encounters Date Type Department Care Team (Latest Contact Info) Description 02/12/2025 8:30 AM EDT [facility] [address] [place] [phone] Carmen Hartmann 02/12/2025 4:30 PM EDT [facility] / [facility] [address] [place] [phone] Ashley Eastman 02/13/2025 8:30 AM EDT [facility] / [facility] [address] [place] [phone] Carmen Hartmann 02/13/2025 9:00 AM EDT [facility] [address] [place] [address] 02/13/2025 4:30 PM EDT [facility] Home [facility] / [facility] [address] [place] [address] Ashley Eastman 02/14/2025 8:00 AM EDT [facility] / [facility] [address] [place] [phone] Carmen Hartmann 02/14/2025 9:30 AM EDT [facility] / [facility] [address] [place] [phone] Ralph Loyola 02/14/2025 4:30 PM EDT [facility] / [facility] [address] [place] [phone] Ashley Eastman 02/15/2025 8:30 AM EDT [facility] / [facility] [address] [place] [phone] Marysol Diaz 02/15/2025 12:00 PM EDT [facility] / [facility] [address] [place] [phone] Natali Sanford 02/15/2025 5:30 PM EDT [facility] / [facility] [address] [place] [phone] Marysol Diaz 02/16/2025 8:30 AM EST [facility] / [facility] [address] [place] [phone] Marysol Diaz 02/16/2025 12:00 PM EST [facility] / [facility] [address] [place] [phone] Natali Sanford 02/16/2025 4:30 PM EST [facility] / [facility] [address] [place] [phone] Marysol Diaz 02/16/2025 5:30 PM EST [facility] / [facility] [address] [place] [phone] Marysol Diaz 02/17/2025 8:30 AM EST [facility] / [facility] [address] [place] [phone] Carmen Hartmann 02/17/2025 11:00 AM EST [facility] [address] [place] [phone] Michelle Castillo MD [address] [place] [address] 02/17/2025 4:30 PM EST [facility] / [facility] [address] [place] [phone] Ashley Eastman 02/18/2025 8:30 AM EST [facility] / [facility] [address] [place] [phone] Carmen Hartmann 02/18/2025 11:00 AM EST [facility] Visit [facility] [place] [facility] [address] [place] [phone] Michelle Castillo MD [address] [place] [address] Brigette East LPN 02/18/2025 4:30 PM EST [facility] / [facility] [address] [place] [address] Ashley Eastman 02/19/2025 8:30 AM EST [facility] [place] [facility] [address] [place] [address] Carmen Hartmann 02/19/2025 4:30 PM EST [facility] / [facility] [address] [place] [address] Ashley Eastman 02/20/2025 8:30 AM EST [facility] / [facility] [address] [place] [address] Carmen Hartmann 02/20/2025 9:00 AM EST [facility] [place] [facility] [address] [place] [address] 02/20/2025 4:30 PM EST [facility] / [facility] [place] [facility] [address] [place] [address] Ashley Eastman 02/21/2025 8:00 AM EST [facility] / [facility] [place] [facility] [address] [place] [address] Carmen Hartmann 02/21/2025 9:30 AM EST [facility] / [facility] [address] [place] [address] Ralph Loyola 02/21/2025 4:30 PM EST [facility] / [facility] [place] [facility] [address] [place] [address] Ashley Eastman 02/22/2025 12:00 PM EST [facility] / [facility] [address] [place] [address] Dena Chavez 02/23/2025 12:00 PM EST [facility] / [facility] [address] [place] [phone] Dena Chavez 02/24/2025 8:30 AM EST [facility] Home [facility] / [facility] Visit [facility] [place] [facility] [address] [place] [address] Carmen Hartmann 02/24/2025 4:30 PM EST [facility] Home [facility] / [facility] [place] [facility] [address] [place] [phone] Ashley Eastman 02/25/2025 8:30 AM EST [facility] Home [facility] / [facility] [place] [facility] [address] [place] [phone] Carmen Hartmann 02/25/2025 4:30 PM EST [facility] / [facility] [address] [place] [phone] Ashley Eastman 02/26/2025 8:30 AM EST [facility] Home [facility] / [facility] [place] [facility] [address] [place] [phone] Carmen Hartmann 02/26/2025 4:30 PM EST [facility] / [facility] [address] [place] [phone] Ashley Eastman 02/27/2025 8:30 AM EST [facility] / [facility] [place] [facility] [address] [place] [phone] Carmen Hartmann 02/27/2025 9:00 AM EST [facility] [place] [facility] [address] [place] [address] 02/27/2025 4:30 PM EST [facility] Home [facility] / [facility] [address] [place] [address] Ashley Eastman 02/28/2025 8:00 AM EST [facility] / [facility] [address] [place] [address] Carmen Hartmann 02/28/2025 9:30 AM EST [facility] / [facility] [address] [place] [phone] Ralph Loyola 02/28/2025 4:30 PM EST [facility] Home [facility] / [facility] [address] [place] [phone] Ashley Eastman 03/01/2025 8:30 AM EST [facility] Home [facility] / [facility] Visit [facility] [place] [facility] [address] [place] [phone] Marysol Diaz 03/01/2025 12:00 PM EST [facility] Home [facility] / [facility] [address] [place] [phone] Natali Sanford 03/01/2025 5:30 PM EST [facility] Home [facility] / [facility] [address] [place] [phone] Marysol Diaz 03/02/2025 8:30 AM EST [facility] / [facility] [address] [place] [phone] Marysol Diaz 03/02/2025 12:00 PM EST [facility] Home [facility] / [facility] [address] [place] [phone] Natali Sanford 03/02/2025 4:30 PM EST [facility] / [facility] [address] [place] [address] Marysol Diaz 03/02/2025 5:30 PM EST [facility] Home [facility] / [facility] [address] [place] [phone] Marysol Diaz 03/03/2025 8:30 AM EST [facility] Home [facility] / [facility] [address] [place] [phone] Carmen Hartmann 03/03/2025 4:30 PM EST [facility] Home [facility] / [facility] [address] [place] [phone] Ashley Eastman 03/04/2025 8:30 AM EST [facility] / [facility] [address] [place] [phone] Carmen Hartmann 03/04/2025 4:30 PM EST [facility] / [facility] [address] [place] [phone] Ashley Eastman 03/05/2025 8:30 AM EST [facility] Home [facility] / [facility] [address] [place] [phone] Carmen Hartmann 03/05/2025 4:30 PM EST [facility] / [facility] [address] [place] [phone] Ashley Eastman 03/06/2025 8:30 AM EST [facility] / [facility] [address] [place] [phone] Caremn Hartmann 03/06/2025 9:00 AM EST [facility] [place] [facility] [address] [place] [address] 03/06/2025 4:30 PM EST [facility] Home [facility] / [facility] [address] [place] [address] Ashley Eastman 03/07/2025 Lab [facility] Occupational Therapy [address] [place] [address] Clemencia Napier, OT Schizophrenia in partial remission with history of multiple episodes (CMS/HCC V24, CMS/HCC V28) 03/07/2025 8:00 AM EST [facility] Home [facility] / [facility] Home Visit [facility] [address] [place] [phone] Carmen Hartmann 03/07/2025 9:00 AM EST Clinical Support [facility] [address] [place] [address] Bethany Mccabe RN 03/07/2025 9:30 AM EST [facility] / [facility] [address] [place] [phone] Ralph Loyola 03/07/2025 4:30 PM EST [facility] Home [facility] / [facility] Home Visit [facility] [address] [place] [phone] Ashley Eastman 03/08/2025 12:00 PM EST [facility] Home [facility] / [facility] Visit [facility] [address] [place] [phone] Dena Chavez 03/09/2025 12:00 PM EST [facility] Home [facility] / [facility] Visit [facility] [address] [place] [phone] Dena Chavez 03/10/2025 8:30 AM EST [facility] Home [facility] / [facility] [address] [place] [address] Carmen Hartmann 03/10/2025 4:30 PM EST [facility] / [facility] [address] [place] [address] Ashley Eastman 03/11/2025 8:30 AM EST [facility] / [facility] [address] [place] [address] Carmen Hartmann 03/11/2025 4:30 PM EST [facility] / [facility] [address] [place] [phone] Ashley Eastman 03/12/2025 8:30 AM EST [facility] / [facility] [address] [place] [phone] Carmen Hartmann 03/12/2025 4:30 PM EST [facility] Home [facility] / [facility] [address] [place] [phone] Ashley Eastman 03/13/2025 8:30 AM EST [facility] / [facility] [address] [place] [address] Carmen Hartmann 03/13/2025 9:00 AM EST [facility] [place] [facility] [address] [place] [address] 03/13/2025 4:30 PM EST [facility] Home [facility] / [facility] [address] [place] [phone] Ashley Eastman 03/14/2025 8:00 AM EST [facility] / [facility] [address] [place] [phone] Carmen Hartmann 03/14/2025 9:30 AM EST [facility] / [facility] [address] [place] [phone] Ralph Loyola 03/14/2025 4:30 PM EST [facility] Home [facility] / [facility] [address] [place] [phone] Ashley Eastman 03/15/2025 8:30 AM EST [facility] / [facility] [address] [place] [phone] Marysol Diaz 03/15/2025 12:00 PM EST [facility] / [facility] [address] [place] [phone] Natali Sanford 03/15/2025 5:30 PM EST [facility] Home [facility] / [facility] [address] [place] [phone] Marysol Diaz 03/16/2025 8:30 AM EST [facility] / [facility] [address] [place] [phone] Marysol Diaz 03/16/2025 12:00 PM EST [facility] Home [facility] / [facility] [address] [place] [phone] Natali Sanford 03/16/2025 4:30 PM EST [facility] Home [facility] / [facility] [address] [place] [phone] Marysol Diaz 03/16/2025 5:30 PM EST [facility] Home [facility] / [facility] [address] [place] [address] Marysol Diaz 03/17/2025 8:30 AM EST [facility] Home [facility] / [facility] [address] [place] [address] Carmen Hartmann 03/17/2025 4:30 PM EST [facility] / [facility] [address] [place] [address] Ashley Eastman 03/18/2025 8:30 AM EST [facility] / [facility] [address] [place] [address] Carmen Hartmann 03/18/2025 11:00 AM EST [facility] Visit [facility] [address] [place] [address] Michelle Castillo MD [address] [place] [address] Brigette East LPN 03/18/2025 4:30 PM EST [facility] / [facility] [address] [place] [phone] Ashley Eastman 03/19/2025 8:30 AM EST [facility] / [facility] [address] [place] [address] Carmen Hartmann 03/19/2025 4:30 PM EST [facility] / [facility] [address] [place] [address] Ashley Eastman 03/20/2025 8:30 AM EST [facility] / [facility] [address] [place] [address] Carmen Hartmann 03/20/2025 9:00 AM EST [facility] [place] [facility] [address] [place] [address] 03/20/2025 4:30 PM EST [facility] Home [facility] / [facility] [address] [place] [phone] Ashley Eastman 03/21/2025 8:00 AM EST [facility] Home [facility] / [facility] [address] [place] [phone] Carmen Hartmann 03/21/2025 9:30 AM EST [facility] Home [facility] / [facility] [address] [place] [phone] Ralph Loyola 03/21/2025 4:30 PM EST [facility] Home [facility] / [facility] [address] [place] [phone] Ashley Eastman 03/22/2025 12:00 PM EST [facility] Home [facility] / [facility] [address] [place] [phone] Dena Chavez 03/23/2025 12:00 PM EST [facility] Home [facility] / [facility] [address] [place] [phone] Dena Chavez 03/24/2025 8:30 AM EST [facility] Home [facility] / [facility] [address] [place] [phone] Carmen Hartmann 03/24/2025 9:45 AM EST Appointment [facility] [address] [place] [address] Lakia Hou, CCC-ANALYTICS SENIOR MANAGER 03/24/2025 4:30 PM EST [facility] Home [facility] / [facility] [address] [place] [address] Ashley Eastman 03/25/2025 8:30 AM EST [facility] Home [facility] / [facility] [address] [place] [address] Carmen Hartmann 03/25/2025 4:30 PM EST [facility] Home [facility] / [facility] [address] [place] [phone] Ashley Eastman 03/26/2025 8:30 AM EST [facility] Home [facility] / [facility] [address] [place] [phone] Carmen Hartmann 03/26/2025 4:30 PM EST [facility] Home [facility] / [facility] [address] [place] [phone] Ashley Eastman 03/27/2025 8:30 AM EST [facility] Home [facility] / [facility] [address] [place] [phone] Carmen Hartmann 03/27/2025 9:00 AM EST [facility] [address] [place] [address] 03/27/2025 2:40 PM EST Clinical Support [facility] [address] [place] [phone] 03/27/2025 4:30 PM EST [facility] Home [facility] / [facility] [address] [place] [phone] Ashley Eastman 03/28/2025 8:00 AM EST [facility] Home [facility] / [facility] [address] [place] [address] Carmen Hartmann 03/28/2025 10:00 AM EST Clinical [facility] [address] [place] [address] Bethany Mccabe RN 03/28/2025 4:30 PM EST [facility] Home [facility] / [facility] [address] [place] [address] Ashley Eastman 03/29/2025 8:30 AM EST [facility] Home [facility] / [facility] [address] [place] [address] Marysol Diaz 03/29/2025 12:00 PM EST [facility] Home [facility] / [facility] [address] [place] [address] Natali Sanford 03/29/2025 5:30 PM EST [facility] Home [facility] / [facility] [address] [place] [address] Marysol Diaz 03/30/2025 8:30 AM EST [facility] Home [facility] / [facility] [address] [place] [address] Marysol Diaz 03/30/2025 12:00 PM EST [facility] Home [facility] / [facility] [address] [place] [address] Natali Safnord 03/30/2025 4:30 PM EST [facility] Home [facility] / [facility] [address] [place] [address] Maryosl Diaz 03/30/2025 5:30 PM EST [facility] Home [facility] / [facility] [address] [place] [address] Marysol Diaz 03/31/2025 8:30 AM EST [facility] Home [facility] / [facility] [address] [place] [address] Carmen Hartmann 03/31/2025 4:30 PM EST [facility] Home [facility] / [facility] [address] [place] [phone] Ashley Eastman 04/01/2025 8:30 AM EST [facility] Home [facility] / [facility] [address] [place] [phone] Carmen Hartmann 04/01/2025 1:15 PM EST [facility] [address] [place] [phone] 04/01/2025 4:30 PM EST [facility] Home [facility] / [facility] [address] [place] [phone] Ashley Eastman 04/02/2025 8:30 AM EST [facility] Home [facility] / [facility] [address] [place] [phone] Carmen Hartmann 04/02/2025 4:30 PM EST [facility] Home [facility] / [facility] [address] [place] [phone] Ashley Eastman 04/03/2025 8:30 AM EST [facility] Home [facility] / [facility] [address] [place] [phone] Carmen Hartmann 04/03/2025 9:00 AM EST [facility] [address] [place] [address] 04/03/2025 4:30 PM EST [facility] Home [facility] / [facility] [address] [place] [address] Ashley Eastman 04/04/2025 8:00 AM EST [facility] / [facility] [address] [place] [address] Carmen Hartmann 04/04/2025 9:30 AM EST [facility] / [facility] [address] [place] [phone] Ralph Loyola 04/04/2025 4:30 PM EST [facility] / [facility] [place] [facility] [address] [place] [phone] Ashley Eastman 04/05/2025 12:00 PM EST [facility] / [facility] [address] [place] [phone] Dena Chavez 04/06/2025 12:00 PM EST [facility] Home [facility] / [facility] [address] [place] [phone] Dena Chavez 2025 8:30 AM EST [facility] / [facility] [address] [place] [phone] Carmen Hartmann 2025 4:30 PM EST [facility] / [facility] [address] [place] [phone] Ashley Eastman 04/08/2025 8:30 AM EST [facility] / [facility] [address] [place] [phone] Carmen Hartmann 04/08/2025 4:30 PM EST [facility] / [facility] [address] [place] [address] Ashley Eastman 04/09/2025 8:30 AM EST [facility] / [facility] [address] [place] [address] Carmen Hartmann 04/09/2025 4:30 PM EST [facility] / [facility] [address] [place] [address] Ashley Eastman 04/10/2025 8:30 AM EST [facility] / [facility] [address] [place] [address] Carmen Hartmann 04/10/2025 9:00 AM EST PACE Attend[place] [facility] [place] [facility] [address] [place] [address] 04/10/2025 4:30 PM EST [facility] Home Care / [facility] [place] [facility] [address] [place] [address] Ashley Eastman 04/11/2025 8:00 AM EST [facility] Home [facility] / [facility] [place] [facility] [address] [place] [address] Carmen Hartmann 04/11/2025 9:30 AM EST [facility] Home [facility] / [place] [place] [facility] [address] [place] [phone] Ralph Loyola 04/11/2025 4:30 PM EST [facility] Home [facility] / [facility] [place] [facility] [address] [place] [address] Ashley Eastman 04/12/2025 8:30 AM EST [facility] Home [facility] / [facility] [place] [facility] [address] [place] [address] Marysol Diaz 04/12/2025 12:00 PM EST [facility] Home [facility] / [facility] [place] [facility] [address] [place] [phone] Natali Sanford 04/12/2025 5:30 PM EST [facility] Home [facility] / [facility] [place] [facility] [address] [place] [phone] Marysol Diaz 04/15/2025 11:00 AM EST [facility] Visit [facility] [place] [facility] [address] [place] [phone] Michelle Castillo MD [address] [place] [phone] Brigette East LPN 04/17/2025 9:00 AM EST [facility] [place] [facility] [address] [place] [phone] 04/18/2025 10:00 AM EST Clinical Support [facility] [place] [facility] [address] [place] [phone] Bethany Mccabe RN 04/24/2025 9:00 AM EST [facility] Attendance/[facility] [place] [facility] [address] [place] [phone] 04/24/2025 11:30 AM EST Clinical Support [facility] [address] [place] [phone] 05/01/2025 9:00 AM EST [facility] Attendance/[facility] [place] [facility] [address] [place] [phone] 05/08/2025 9:00 AM EST [facility] Attendance/[facility] [place] [facility] [address] [place] [phone] 05/09/2025 10:00 AM EST [facility] Support [facility] [address] [phone] Bethany Mccabe RN 05/13/2025 11:00 AM EST [facility] [address] [phone] Michelle Castillo MD [address] [place] [phone] Brigette East LPN 05/15/2025 9:00 AM EST [facility] Attendance/[facility] [place] [facility] [address] [place] [phone] 05/22/2025 9:00 AM EST [facility] Attendance/[facility] [address] [place] [phone] 05/29/2025 9:00 AM EST [facility] Attendance/[facility] [address] [place] [phone] 05/30/2025 10:00 AM EST Clinical Support [facility] [place] [facility] [address] [phone] Bethany Mccabe RN 06/05/2025 9:00 AM EST P[facility] Attendance/[facility] P[facility] Day [address] [phone] 06/10/2025 11:00 AM EST [facility] Visit [facility] [place] [facility] [address] [place] [phone] Michelle Castillo MD [address] [place] [phone] Brigette East LPN 06/12/2025 9:00 AM EST [facility] Attendance/[facility] [place] [facility] [address] [place] [phone] 06/19/2025 9:00 AM EST [facility] [place] [facility] [place] [facility] [address] [place] [phone] 06/20/2025 10:00 AM EST [facility] [place] [facility] [address] [place] [phone] Bethany Mccabe RN 06/26/2025 9:00 AM EDT [facility] [place] [facility] [place] [facility] [address] [place] [phone] 06/27/2025 1:20 PM EDT Office Visit Gastroenterology - [address] [facility] [address] [place] [phone] Analisa Perez, LADLE BUILDER [address] [place] [address] 07/03/2025 9:00 AM EDT [facility]end[facility] [place] [facility] [address] [place] [phone] 07/10/2025 9:00 AM EDT [place] [facility] [place] [facility] [place] [address] [phone] 07/11/2025 10:00 AM EDT [facility] [place] [facility] [place] [facility] [address] [phone] Bethany Mccabe RN 07/17/2025 9:00 AM EDT [facility] [place] [facility] [place] [facility] [address] [place] [phone] 07/17/2025 3:30 PM EDT [facility] External Visit [facility] [address] [phone] 07/24/2025 9:00 AM EDT [facility] [place] [facility] [place] [facility] [address] [place] [phone] 07/31/2025 9:00 AM EDT [facility] [facility] [place] [facility] [address] [place] [address] 08/01/2025 10:00 AM EDT [facility] [place] [facility] [address] [place] [address] Bethany Mccabe RN 08/07/2025 9:00 AM EDT [facility] Att[facility] [facility] [place] [facility] [address] [place] [phone] 08/14/2025 9:00 AM EDT [facility] [facility] [place] [facility] [address] [place] [phone] 08/21/2025 9:00 AM EDT [facility] [facility] [place] [facility] [address] [place] [phone] 08/22/2025 10:00 AM EDT Clinical [facility] [place] [facility] [address] [place] [phone] Bethany Mccabe RN 08/28/2025 9:00 AM EDT [facility] [facility] [place] [facility] [address] [place] [phone] 09/04/2025 9:00 AM EDT [facility] [facility] [place] [facility] [address] [place] [phone] 09/11/2025 9:00 AM EDT [facility] [facility] [place] [facility] [address] [place] [phone] 09/12/2025 10:00 AM EDT Clinical [facility] [place] [facility] [address] [place] [phone] Bethany Mccabe, HEIDI 09/18/2025 9:00 AM EDT [facility] Att[facility] [facility] [place] [facility] [address] [place] [phone] 09/25/2025 9:00 AM EDT [facility] [place] [facility] [address] [place] [phone] 10/02/2025 9:00 AM EDT [facility] Attendance[facility] [place] [facility] [address] [place] [phone] 10/03/2025 10:00 AM EDT [facility] [place] [facility] [address] [place] [phone] Bethany Mccabe RN 10/09/2025 9:00 AM EDT [facility] Attendance/[facility] [place] [facility] [address] [place] [phone] 10/24/2025 10:00 AM EDT Clinical Support [facility] [place] [facility] [address] [place] [phone] Bethany Mccabe RN 11/14/2025 10:00 AM EDT Clinical Support [facility] [place] [facility] [address] [place] [phone] Bethany Mccabe RN 12/05/2025 10:00 AM EDT Clinical Support [facility] [place] [facility] [address] [place] [phone] Bethany Mccabe RN 12/26/2025 10:00 AM EDT Clinical Support [facility] [place] [facility] [address] [place] [phone] Bethany Mccabe RN 01/16/2026 10:00 AM EDT Clinical Support [facility] [place] [facility] [address] [place] [phone] Bethany Mccabe RN 02/06/2026 10:00 AM EDT Clinical Support [facility] [place] [facility] [address] [place] [phone] Bethany Mccabe RN 02/27/2026 10:00 AM EST Clinical Support [facility] [place] [facility] [address] [phone] Bethany Mccabe HEIDI documented as of this encounter Visit Diagnoses Not on filedocumented in this encounter Care Teams Serger Relationship Specialty Start Date End Date Regulo Ivy NP [address] [place] [address] PCP - General PACE 06/07/24 documented as of this encounter
--- OUTSIDE RECORDS SUMMARY | 2025-02-11 19:44 | XMS_ITS | Encounter Summary ---
Author Organization [facility] Address [address] [place] [address] Care Team Providers Care Fiscal Economist Name Role Phone Regulo Ivy Primary Care Provider [phone] Encounter Details Date Type Department Care Team (Late st Contact Info) Description 09/15/2021 myChart Message [facility] [address] [place] [address] Juni Caro MD [address] [facility] [place] [address] Tremors Social History Tobacco Use Types Packs/Day Years Used Date Smoking Tobacco: Never Smokeless Tobacco: Never Comments:: Alcohol Use Standard Drinks/Week Comments No 0 (1 standard drink = 0.6 oz pur e alcohol) Comments Unknown Sex and Gender Information Value Date Recorded Sex Assigned at Female 02/14/2021 11:26 AM EDT Legal Sex Female 12:12 AM EDT Gender Identity Female 02/14/2021 11:26 AM EDT Sexual Orientation Straight 02/14/2021 11 :26 AM EDT documented as of this encounter Plan of Treatment Not on file documented as of this encounter Visit Diagnoses Not on filedocumented in this encounter Care Teams Fiscal Economist Relationship Specialty Start Date End Date Regulo Ivy [address] [place] [phone] PCP - General 03/27/23 documented as of this encounter
--- OUTSIDE RECORDS SUMMARY | 2025-02-11 19:44 | XMS_ITS | Clinical Summary ---
Author Organization [facility] Address [address] [place] [address] Phone Care Team Providers Care Records Custodian Name Role Phone Regulo Kauffman NP Primary Care Provider [phone] Allergies Active Allergy Reactions Criticality Noted Date Comments Ibuprofen Wheezing 04/24/2023 Oxcarbazepine 04/24/2023 Unknown reaction Peanut Wheezing 05/05/2021 Gets stuck in my throat Quetiapine GI intolerance 04/24/2023 Vomiting Medications lisinopriL (PRINIVIL,ZESTRIL) 5 mg tabletIndications:P rimary hypertension Take 1 tablet (5 mg total) by mouth 1 (one) time each day. 30 each 09/11/2025 Active montelukast (Singulair) 10 mg tabletIndications:M ild persistent asthma without complication,Mixed hyperlipidemia,Over active bladder,Hypothyroid ism due to Billy thyroiditis,Undiffe rentiated schizophrenia ([facility] V24, [facility] V28) Take 1 tablet (10 mg total) by mouth at bedtime. 30 each 025 2025 Active mirabegron (Myrbetriq) 50 mg tablet extended release 24 hr 24 hr tabletIndications:M ild persistent asthma without complication,Mixed hyperlipidemia,Over active bladder,Hypothyroid ism due to Billy thyroiditis,Undiffe rentiated schizophrenia ([facility] V24, [facility] V28) Take 1 tablet (50 mg total) by mouth 1 (one) time each day. 30 each 025 2025 Active levothyroxine (Synthroid) 100 mcg tabletIndications:M ild persistent asthma without complication,Mixed hyperlipidemia,Over active bladder,Hypothyroid ism due to Billy thyroiditis,Undiffe rentiated schizophrenia ([facility] V24, [facility] V28) Take 1 tablet (100 mcg total) by mouth 1 (one) time each day before breakfast. 30 each 2025 Active benztropine (COGENTIN) 1 mg tabletIndications:M ild persistent asthma without complication,Mixed hyperlipidemia,Over active bladder,Hypothyroid ism due to Billy thyroiditis,Undiffe rentiated schizophrenia ([facility] V24, [facility] V28) Take 1 tablet (1 mg total) by mouth 2 (two) times a day. 60 each 2025 Active LORazepam (ATIVAN) 0.5 mg tabletIndications:A nxiety Take 1 tablet (0.5 mg total) by mouth at bedtime. 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 30 tablet 2025 Active fluticasone furoate-vilanteroL (Breo Ellipta) 100-25 mcg/dose inhalerIndications: Chronic obstructive pulmonary disease, unspecified COPD type ([facility] V24, [facility] V28) Inhale 1 puff by mouth 1 (one) time each day. 1 each 025 2025 Active miconazole (Micatin) 2 % creamIndications:Ca ndidiasis of genitalia in female Apply topically 2 (two) times a day. 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 At 17:00 30 each 025 2025 Active nitroglycerin (Nitrostat) 0.4 mg SL tabletIndications:C hest pain at rest Place 1 tablet (0.4 mg total) under the tongue every 5 (five) minutes if needed for chest pain for up to 25 doses. 25 tablet 2 Active psyllium husk, with sugar, (Metamucil Fiber Thin) 2.5 gram waferIndications:Ch ronic idiopathic constipation Take 2 wafers by mouth 1 (one) time each day. Take with full glass of water 60 wafer 5 025 2025 Active brexpiprazole (REXULTI) 2 mg tabletIndications:S chizoaffective disorder, bipolar type (CMS/HCC V24, CMS/HCC V28) Take 1 tablet (2 mg total) by mouth 1 (one) time each day for 7 days, THEN 1.5 tablets (3 mg total) 1 (one) time each day for 7 days, THEN 2 tablets (4 mg total) 1 (one) time each day. 78 tablet 025 2024 Active brexpiprazole (REXULTI) 4 mg tabletIndications:S chizoaffective disorder, bipolar type (CMS/HCC V24, CMS/HCC V28) Take 1 tablet (4 mg total) by mouth 1 (one) time each day. 28 tablet 11 025 2025 Active traZODone (DESYREL) 100 mg tabletIndications:I nsomnia due to other mental disorder Take 0.5 tablets (50 mg total) by mouth at bedtime as needed for sleep. 14 tablet 025 2025 Active ergocalciferol (VITAMIN D-2) 1,250 mcg (50,000 unit) capsuleIndications: Vitamin D deficiency,Left hip pain,Tendonitis, Achilles, right,Primary osteoarthritis of both knees Take 1 capsule (50,000 Units total) by mouth every 30 (thirty) days. 1 capsule 2025 Active clopidogreL (Plavix) 75 mg tabletIndications:D iabetes mellitus with peripheral vascular disease ([facility] V24, [facility] V28),Type 2 diabetes mellitus with stage 3a chronic kidney disease, without long-term current use of insulin ([facility] V24, [facility] V28),Sacroiliitis, not elsewhere classified ([facility] V24),Lumbar spondylosis,Seizure ([facility] V24, [facility] V28) Take 1 tablet (75 mg total) by mouth 1 (one) time each day. 30 each 025 2025 Active gabapentin (Neurontin) 100 mg capsuleIndications: Diabetes mellitus with peripheral vascular disease ([facility] V24, [facility] V28),Type 2 diabetes mellitus with stage 3a chronic kidney disease, without long-term current use of insulin ([facility] V24, [facility] V28),Sacroiliitis, not elsewhere classified ([facility] V24),Lumbar spondylosis Take 2 capsules (200 mg total) by mouth 2 (two) times a day. 120 each 025 2025 Active levETIRAcetam (Keppra) 750 mg tabletIndications:S eizure ([facility] V24, [facility] V28) Take 2 tablets (1,500 mg total) by mouth 2 (two) times a day. 120 each 025 2025 Active pantoprazole (PROTONIX) 40 mg EC tabletIndications:G astroesophageal reflux disease without esophagitis Take 1 tablet (40 mg total) by mouth 1 (one) time each day before breakfast. Do not crush, chew, or split. 30 each 025 2025 Active senna 8.6 mg tabletIndications:M ild persistent asthma without complication,Mixed hyperlipidemia,Over active bladder,Hypothyroid ism due to Billy thyroiditis,Undiffe rentiated schizophrenia ([facility] [place] V24, [facility] V28) Take 2 tablets (17.2 mg total) by mouth at bedtime. 60 each 2024 Discontinued(N on-compliance) levETIRAcetam (Keppra) 1,000 mg tabletIndications:S eizure ([facility] [place] V24, [facility] V28) Take 1.5 tablets (1,500 mg total) by mouth 2 (two) times a day. 90 each 2024 Discontinued ergocalciferol (VITAMIN D-2) 1,250 mcg (50,000 unit) capsuleIndications: Vitamin D deficiency Take 1 capsule (50,000 Units total) by mouth every 30 (thirty) days. 4 capsule 2 2024 Discontinued(D uplicate order) gabapentin (Neurontin) 100 mg capsuleIndications: Diabetes mellitus with peripheral vascular disease ([facility] [place] V24, [facility] [place] V28),Type 2 diabetes mellitus with stage 3a chronic kidney disease, without long-term current use of insulin ([facility] [place] V24, [facility] [place] V28),Sacroiliitis, not elsewhere classified ([facility] [place] V24),Lumbar spondylosis Take 1 capsule (100 mg total) by mouth 3 (three) times a day. 90 each 025 2024 Discontinued meloxicam (MOBIC) 7.5 mg tabletIndications:L ocalized osteoarthritis of knees, bilateral Take 1 tablet (7.5 mg total) by mouth 1 (one) time each day with breakfast. 30 each 2 025 2024 Discontinued(D uplicate order) traZODone (DESYREL) 100 mg tabletIndications:I nsomnia due to other mental disorder Take 1 tablet (100 mg total) by mouth at bedtime as needed for sleep. 30 tablet 2024 Discontinued(D ose adjustment) psyllium husk 3.5 gram powder in packetIndications:O K to use formulary alternative for psyllium Take 2 packets by mouth 1 (one) time each day. 60 each 2024 Discontinued(D uplicate order) ARIPiprazole lauroxil (ARISTADA) 662 mg/2.4 mL ER syringeIndications: interval shortened by in psychiatrist to Q 3 weeks Inject 2.4 mL (662 mg total) into the shoulder, thigh, or buttocks every 21 (twenty-one) days. 2.4 mL 2024 Discontinued(I neffective) OLANZapine (ZyPREXA) 5 mg tabletIndications:S chizoaffective disorder, bipolar type (CMS/HCC V24, CMS/HCC V28) Take 1 tablet (5 mg total) by mouth at bedtime. 21 each 2024 Discontinued(D ose adjustment) brexpiprazole 0.5 mg (7)- 1 mg (7) tablets,dose packIndications:Prasanna izoaffective disorder, bipolar type (CMS/HCC V24, CMS/HCC V28) Take 1 Dose pack by mouth 1 (one) time each day in the morning. 7 tablet 2024 Discontinued(E xpired) brexpiprazole (Rexulti) 1 mg tabletIndications:S chizoaffective disorder, bipolar type (CMS/HCC V24, CMS/HCC V28) Take 1 tablet (1 mg total) by mouth 1 (one) time each day. 30 tablet 2024 Discontinued(D ose adjustment) esomeprazole (NexIUM) [address] capsule Take 1 capsule (40 mg total) by mouth 1 (one) time each day before breakfast. Do not open capsule. 90 each 2024 Discontinued(R eorder) linaCLOtide (Linzess) 72 mcg capsuleIndications: Chronic idiopathic constipation Take 1 capsule (72 mcg total) by mouth 1 (one) time each day before breakfast. 90 each 2024 Discontinued(C ost of medication) esomeprazole (NexIUM) [address] capsuleIndications: Gastroesophageal reflux disease without esophagitis Take 1 capsule (40 mg total) by mouth 1 (one) time each day before breakfast. Do not open capsule. 30 each 2024 Discontinued(T herapy completed) plecanatide (TRULANCE) 3 mg tablet Take 1 tablet (3 mg total) by mouth 1 (one) time each day. 90 each 2024 Discontinued(T herapy completed) paliperidone (Invega) 3 mg 24 hr tabletIndications:S chizoaffective disorder, bipolar type (CMS/HCC V24, CMS/HCC V28),Continuous auditory hallucinations Take 1 tablet (3 mg total) by mouth 1 (one) time each day in the morning for 30 doses. Do not crush, chew, or split. 30 each 2024 Discontinued(A lternate therapy) hylan (Synvisc-One) 48 mg/6 mL syringe injectionIndication s:Primary osteoarthritis of left knee Inject 6 mL (48 mg total) into the joint 1 (one) time for 1 dose. 6 mL 2024 Discontinued(E xpired) lidocaine (Xylocaine) 1 % injectionIndication s:Primary osteoarthritis of left knee Inject 10 mL (100 mg total) as directed 1 (one) time for 1 dose. 10 mL 2024 Discontinued(E xpired) meloxicam (MOBIC) 7.5 mg tabletIndications:V itamin D deficiency,Left hip pain,Tendonitis, Achilles, right,Primary osteoarthritis of both knees Take 1 tablet (7.5 mg total) by mouth 1 (one) time each day. 30 each 025 2024 Discontinued(T herapy completed) gabapentin (Neurontin) 100 mg capsuleIndications: Diabetes mellitus with peripheral vascular disease (CMS/HCC V24, CMS/HCC V28),Type 2 diabetes mellitus with stage 3a chronic kidney disease, without long-term current use of insulin ([facility] [place] V24, [facility] V28),Sacroiliitis, not elsewhere classified ([facility] [place] V24),Lumbar spondylosis Take 2 capsules (200 mg total) by mouth 2 (two) times a day. 120 each 025 2024 Discontinued(R eorder) levETIRAcetam (Keppra) 750 mg tabletIndications:S eizure ([facility] [place] V24, [facility] V28) Take 2 tablets (1,500 mg total) by mouth 2 (two) times a day. 120 each 025 2024 Discontinued(R eorder) clopidogreL (Plavix) 75 mg tablet Take 1 tablet (75 mg total) by mouth 1 (one) time each day. 30 each 025 2024 Discontinued(R eorder) Active Problems Problem Noted Date Diagnosed Date Witnessed seizure-like activity ([facility] [place] V24, [facility] V28) 02/06/2025 Assessment & Plan (02/06/2025 1:22 PM EDT): Елена had a thorough work-up at [facility] inpt stay, which was negative for seizure. The Keppra level was at the high end of normal, 02/03/25 of 56.3 (range 3.0 to 60.0). f/u with PCP (if unavailable, then with me), in 2 to 3 weeks for routine f/u. Note: Release of info form filled by Елена in clinic, for [facility]. Breakthrough seizure ([facility] [place] V24, [facility] [place] V28) 02/03/2025 Continuous auditory hallucinations 01/23/2025 Assessment & Plan (01/23/2025 12:46 PM EDT): Pls see management below. Елена has nearly constant auditory hallucinations, and feels compelled by Bladimir / Bernardino-she worked with him in the past/ to act on those directives. She says that Bernardino wants her to go out with someone. I told her that she does not need to do anything that 'Bernardino' says. She agreed that she is now tough enough. Orders: paliperidone (Invega) 3 mg 24 hr tablet; Take 1 tablet (3 mg total) by mouth 1 (one) time each day in the morning for 30 doses. Do not crush, chew, or split. Medication management 01/23/2025 Assessment & Plan (02/06/2025 1:22 PM EDT): Rexulti was the bridge between the Aristada [...] was trialed together, by psychiatry at the [facility], but she continued to deteriorate with severe, intrusive auditory hallucinations.] Note: -Елена said that she's had Rapids in the past, as well as Depakote. [...] considerations is her h/o seizure, and recent seizure-like activity. -Елена is on a Very high dose of Keppra (1500mg BID) which interacts significantly, with antipsychotics. Елена is amenable to being seen by a psychiatrist at the [facility], or a neuro-psychiatrist if one if available. Елена is fine with Helen Tang NP, recommending someone at the . We would like this to be done as soon as possible. 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 Assessment & Plan (01/23/2025 12:46 PM EDT): Елена's medications were reviewed, with her. We had decreased her olanzapine to 5mg at hs. This can be stopped, as it did not have much effect even at higher doses. We will slowly increase the brexpiprazole from the current 1mg dose to 2mg at hs x 1 week. Then 3mg at hs x 1 week. Then 4mg at hs. We will not give any more of the aristada injections. Future doses are now cancelled. I did let Елена know that we may need a second medication, such as paliperodone, at low dose, to keep her from having constant auditory intrusive dialogue with Bernardino, who is now, per Елена, more Bladimir . Ordered the lowest dose of invega to Med Room nurse. Flu vaccine need 01/23/2025 Assessment & Plan (01/23/2025 12:46 PM EDT): Pt would like a flu vaccine: attn: nursing Oropharyngeal dysphagia 01/13/2025 Assessment & Plan (01/13/2025 8:35 AM EDT): Oropharyngeal dysphagia: GI visit on 01/10/25: She was encouraged to cut food into small pieces, chew food thoroughly and eat slowly. Make transitions to soft foods pending completion of barium swallow. There is a question of esophageal dysmotility. I will order a barium swallow to further investigate. I will consider EGD depending on barium swallow findings. MBS ordered, will reinforce plan to cut food into small pieces, chew thoroughly & eat slowly and CTM. Gastroesophageal reflux disease without esophagi tis 01/13/2025 Assessment & Plan (01/13/2025 8:46 AM EDT): GI appointment on 01/10/25: GERD: I recommend lifestyle modifications including weight loss, elevate head while in bed, sitting upright during and after meals, avoidance of food intake atleast less than 3 hours before bedtime and cessation of foods that potentially aggravate reflux symptoms such as coffee, chocolate, carbonated beverages, spicy foods, acidic foods and foods with high fat content. She agrees to take Nexium daily. Prescription sent to the pharmacy. Plan: Will reinforce sleep hygiene best practices, continue to encourage life styl mods and order Nexiium and CTM. History of petit-mal seizures 01/07/2025 Assessment & Plan (01/07/2025 5:02 PM EDT): Started at age 13, from [place], which started her first seizure. Is on keppra for this. Has not seen neurologist in a while. Last neurologist retired (Juni Caro MD). Orders: Ambulatory referral to Neurology; Future Lumbar spondylosis 10/10/2024 Assessment & Plan (10/10/2024 9:39 AM EDT): Images from the original note were not included. Sacroiliitis, not elsewhere classified (CMS/HCC V24) 10/10/2024 Assessment & Plan (10/10/2024 9:40 AM EDT): Images from the original note were not included. Left hip pain 10/10/2024 Assessment & Plan (10/10/2024 9:42 AM EDT): Images from the original note were not included. Tendonitis, Achilles, right 10/10/2024 Assessment & Plan (10/10/2024 9:45 AM EDT): [facility] evaluation on 10/03/24 Achilles Tendinitis Right Leg M76.61: Will monitor for improvement of symptoms with therapy treatment provided by [facility] therapy department and refer to [facility] for corticosteroid injection if needed. Adenoma of colon 08/26/2024 Assessment & Plan (01/13/2025 8:50 AM EDT): GI appointment on 01/10/25: History of adenomatous polyp of colon: Colonoscopy 05/18/2024: Colon polyp removed from the transverse colon. Otherwise normal colonoscopy. Pathology: Tubular adenoma. Avoid processed foods. Increase dietary fiber. Repeat colonoscopy in 5 years. I will update on further care and management depending on barium swallow findings. Follow-up in 6 months. Patient agrees with the above plan and understands the need to follow up as indicated. Plan: Agree with plan, will CTM. Assessment & Plan (09/05/2024 5:02 PM EDT): Adenoma of colon is an active diagnosis: Last Colonoscopy in May 2024, one precancerous polyp found in the transverse colon; Repeat colonoscopy in 5 years or soon if indicated. Assessment & Plan (08/26/2024 9:12 AM EDT): Colonoscopy 06/22/2024 with removal of colon polyps returned precancerous but benign. Repeat Colonoscopy in 5 years. Left medial knee pain 07/29/2024 Assessment & Plan (02/03/2025 12:04 PM EDT): Omar has previously undergone multiple corticosteroid injections for left knee pain r/t to degenerative osteoarthritis with limited relief of pain. Елена provided verbal consent for the injection of Synvisc into her left knee. Plan: Synvisc ONE injection; Lot# [id number] / exp. DATE 2027-05 Lidocaine 1% plain (10mg/ml) Lot#[id number] / exp date August Left knee exposed. Lateral proximal patella region isolated. Povidone/Iodine solution utilized to prep site, allowed to dry for one minute. Ethyl-chloride spray for analgesia applied. 18 gauge 1 1/2 inch needle inserted into her right patellofemoral joint space without resistance. Aspiration produced 1-2 ml of joint fluid. Lidocaine 4 ml injected, syringe switched SynviscONE - passive injection without resistance of 6 ml (entire syringe contents). Needle removed, Band-Aid DSG applied. Passive ROM to right knee performed. Par tolerated injection well. Upon standing Par stated her pain is gone, will CTM. Assessment & Plan (01/23/2025 12:42 PM EDT): Has had 3 steroid injections to her L knee by her PCP. We reviewed her Xray results for hips (normal), SI jts (normal),Achilles..mild calcinosis, knee (mild OA). Assessment & Plan (09/03/2024 12:59 PM EDT): Could not reproduce left medial knee pain upon palpation of her left knee joint line; stable. Assessment & Plan (07/31/2024 4:06 PM EDT): Orders: XR Knee 4+ Views bilat; Future diclofenac (VOLTAREN) 1 % topical gel; Apply 2 g topically 4 (four) times a day for 28 days. Ambulatory referral to Podiatry; Future Asthma, mild persistent 04/30/2024 Assessment & Plan (09/03/2024 12:59 PM EDT): Chronic condition, stable, controlled with medications. Xochitl nodes 04/30/2024 Overview (04/30/2024): Xochitl Nodes, Right Assessment & Plan (09/03/2024 3:33 PM EDT): Chronic condition, stable and asymptomatic, will continue current medications and monitor. Type 2 diabetes mellitus wit h stage 3a chronic kidney disease ([facility] V24, [facility] V28) 04/30/2024 Overview (04/30/2024): CKD 3a with DM 2 Assessment & Plan (09/03/2024 3:31 PM EDT): Last labs on 08/25/24 renal function improved: GFR >=60 mL/min/1.73m2 67 Now at CKD G2, will CTM Coronary artery disease with stable angina pectoris ([facility] V24) 04/30/2024 Overview (04/30/2024): oronary Artery Disease (CAD) with Stable Angina Assessment & Plan (09/03/2024 12:07 PM EDT): Chronic condition, stable and asymptomatic, will continue current medications and monitor. Constipation 04/30/2024 Assessment & Plan (01/13/2025 8:37 AM EDT): Chronic idiopathic constipation: GI appointment on 01/10/25: He was encouraged to increase dietary fiber and fluid intake. She has limited mobility. May supplement fiber with Metamucil or Benefiber. I will also prescribe Linzess to be taken daily in addition to Metamucil and Senokot. Metamucil ordered, continue current medications as prescribed, will CTM. 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 Normal motor and sensory nerve conduction study of the median nerves. EMG of the right C5-T-1 innervated muscles consistent with chronic denervation changes in the ulnar innervated hand muscles. Currently Par is not complaining of pain, will CTM Mild dementia with anxiety ([facility] [facility] V24, [facility] V28) 04/30/2024 Overview (04/30/2024): Dementia, Mild with Wandering Behavior Assessment & Plan (09/03/2024 12:52 PM EDT): Last MOCA in March 2024. In September 2023 MOCA , April 2023 (most likely not a good day for testing). Anxiety controlled well with medications, will CTM Assessment & Plan (08/17/2024 12:54 PM EDT): Stable, no change. Deficiency of vitamin B12 04/30/2024 Assessment & Plan (09/03/2024 1:10 PM EDT): Labs from this encounter pending, will CTM Depression, major, single episode 04/30/2024 Assessment & Plan (09/03/2024 3:46 PM EDT): Chronic condition, stable and asymptomatic, will continue current medications and monitor. Anxiety 04/30/2024 Assessment & Plan (09/03/2024 3:47 PM EDT): Chronic condition, stable and asymptomatic, will continue current medications and monitor. Schizoaffective disorder, bi polar type (CMS/HCC V24, CMS/HCC V28) 04/30/2024 Assessment & Plan (01/23/2025 12:46 PM EDT): A variant of abilify, Rexulti has been started. Елена feels no adverse effects (which we reviewed). She is agreeable to taking a gradual increased dose, after which time the Aristada injection will stop. Aristada injection given today in clinic. Orders: brexpiprazole (REXULTI) 2 mg tablet; Take 1 tablet (2 mg total) by mouth 1 (one) time each day for 7 days, THEN 1.5 tablets (3 mg total) 1 (one) time each day for 7 days, THEN 2 tablets (4 mg total) 1 (one) time each day. brexpiprazole (REXULTI) 4 mg tablet; Take 1 tablet (4 mg total) by mouth 1 (one) time each day. paliperidone (Invega) 3 mg 24 hr tablet; Take 1 tablet (3 mg total) by mouth 1 (one) time each day in the morning for 30 doses. Do not crush, chew, or split. Assessment & Plan (01/07/2025 5:02 PM EDT): Can see if switching her gradually to rexulti (from abilify) may give better management of her symptoms. She also said that the olanzapine is not helping. We will decrease her olanzapine, and eventually stop it. We discussed this, and Елена is in agreement. At some point, we may need to add paliperidone, if rexulti is insufficient. Hopefully she will be seen by Psychiatry next month for evaluation and medical management. Orders: OLANZapine (ZyPREXA) 5 mg tablet; Take 1 tablet (5 mg total) by mouth at bedtime. brexpiprazole 0.5 mg (7)- 1 mg (7) tablets,dose pack; Take 1 Dose pack by mouth 1 (one) time each day in the morning. brexpiprazole (Rexulti) 1 mg tablet; Take 1 tablet (1 mg total) by mouth 1 (one) time each day. Attn Med Room Nurse: Елена needs to take the Rexulti starter pack in 1 week (01/15/2025). Once complete, she can be on scheduled 1mg tablets. Assessment & Plan (12/24/2024 12:32 PM EDT): Continue all meds. No change except in intervals for Aristrada dosing (per Елена Sanders discharge summary). Orders: divalproex (Depakote ER) 500 mg 24 hr tablet; Take 1 tablet (500 mg total) by mouth at bedtime. Do not crush, chew, or split. OLANZapine (ZyPREXA) 5 mg tablet; Take 0.5 tablets (2.5 mg total) by mouth 1 (one) time each day in the morning AND 1.5 tablets (7.5 mg total) at bedtime. Assessment & Plan (12/05/2024 6:15 PM EDT): She appears to have more of a paranoid schizophrenic disorder. Assessment & Plan (10/10/2024 5:26 PM EDT): Improved results with slight changes in dosing and timing of olanzapine, with decreased auditory hallucinations, no insomnia. Pt has no pervasive intrusive hallucinations. We can keep the current medications in place. Plan: keep a.m. dose of olanzapine 2.5mg, potentially reduce pm dose to 12.5mg olanzapine, and if does well, can reduce to 10mg olanzapine in the pm. Assessment & Plan (10/01/2024 12:24 PM EDT): Plan: Attn: Ira: Start olanzapine 2.5mg QAM (scheduled: we can stop this when hallucinations are not so intrusive) 2. Continue olanzapine 10mg + additional 5mg at hs. (Scheduled: we can decrease or stop the additional 5mg dose, if hallucinations vale, in a week or two) Orders: OLANZapine (ZyPREXA) 2.5 mg tablet; Take 1 tablet (2.5 mg total) by mouth 1 (one) time each day in the morning for 28 days. OLANZapine (ZyPREXA) 5 mg tablet; Take 1 tablet (5 mg total) by mouth at bedtime for 28 days. Assessment & Plan (09/03/2024 3:48 PM EDT): Chronic condition, stable. Par had auditory hallucinations during this encounter, maintained appropriate demeanor w/o becoming agitated. Plan: continue current medications and monitor. Assessment & Plan (09/03/2024 3:50 PM EDT): >>ASSESSMENT AND PLAN FOR SCHIZOAFFECTIVE DISORDER, BIPOLAR TYPE (CMS/HCC V24, CMS/HCC V28) WRITTEN ON 08/17/2024 12:54 PM BY MICHELLE CASTILLO MD Temporary increase in dosing of olanzapine. Will re-evaluate in 1 week, and weekly. Orders: OLANZapine (ZyPREXA) 5 mg tablet; Take 1 tablet (5 mg total) by mouth 2 (two) times a day for 28 days. haloperidol lactate (HALDOL) injection 5 mg >>ASSESSMENT AND PLAN FOR VERBAL AUDITORY HALLUCINATIONS WRITTEN ON 08/17/2024 12:54 PM BY MICHELLE CASTILLO MD Temporary increase in dosing of olanzapine. Will re-evaluate in 1 week, and weekly. Orders: OLANZapine (ZyPREXA) 5 mg tablet; Take 1 tablet (5 mg total) by mouth 2 (two) times a day for 28 days. haloperidol lactate (HALDOL) injection 5 mg Multiple benign nevi 04/30/2024 Assessment & Plan (09/03/2024 3:34 PM EDT): Chronic condition, stable and asymptomatic, will continue current medications, no suspicious melanotic nevi seen on exam, f/u Dermatology order d/t Par's history of melanoma left upper back. Dermatofibroma 04/30/2024 Assessment & Plan (09/03/2024 3:34 PM EDT): Chronic condition, stable and asymptomatic, will continue current medications and monitor. Seborrheic keratosis 04/30/2024 Assessment & Plan (09/03/2024 3:34 PM EDT): Chronic condition, stable and asymptomatic, will continue current medications and monitor. Dyspepsia 04/30/2024 Assessment & Plan (09/03/2024 1:16 PM EDT): Will order a urea breath test for H-pylori, refer to GI, CTM Generalized idiopathic epile psy, intractable, without status epilepticus ([facility] V24, [facility] V28) 04/30/2024 Overview (04/30/2024): Epilepsy, Generalized, Intractable without Epilepticus Assessment & Plan (09/05/2024 5:05 PM EDT): Participant cannot remember her last reported tonic/clonic seizure. She states she gets ocular seizures from bright lights, condition is chronic, stable, controlled with medication , will continue to monitor. Hearing loss, sensorineural 04/30/2024 Assessment & Plan (09/03/2024 12:54 PM EDT): Mild, Par agreed to [facility] audiology referral, ordered, will CTM Hyperlipidemia 04/30/2024 Assessment & Plan (09/03/2024 3:45 PM EDT): Chronic condition, stable and asymptomatic, will continue current medications and monitor. Benign hypertensive kidney d isease with CKD (chronic kidney disease) 04/30/2024 Overview (04/30/2024): Hypertension with CKD Assessment & Plan (09/03/2024 3:32 PM EDT): Normotensive on exam this encounter, renal function improved to G2, will CTM Hypothyroidism 04/30/2024 Assessment & Plan (09/03/2024 3:46 PM EDT): Chronic condition, stable and asymptomatic, will continue current medications, labs from this encounter are pending, will CTM. Urinary incontinence, mixed 04/30/2024 Assessment & Plan (09/03/2024 3:32 PM EDT): Chronic condition, stable, will continue with current therapy and monitor. Insomnia due to other mental disorder 04/30/2024 Assessment & Plan (01/23/2025 12:46 PM EDT): Given that rexulti can help with sleep, and multi meds, we can decrease the trazodone from 100mg to 50mg. Attn: Med Room Nurse: pls give trazodone 50mg, next bubble pack week. Will check in 2 weeks and see how she is doing. Orders: traZODone (DESYREL) 100 mg tablet; Take 0.5 tablets (50 mg total) by mouth at bedtime as needed for sleep. Assessment & Plan (12/24/2024 12:32 PM EDT): Will increase trazodone to 100mg and see if that helps with her sleep. Orders: traZODone (DESYREL) 100 mg tablet; Take 1 tablet (100 mg total) by mouth at bedtime as needed for sleep. Assessment & Plan (10/10/2024 5:26 PM EDT): Improved. Stable. Continue to monitor. F/U in 2 weeks. (Attn: Valeria) Assessment & Plan (09/03/2024 3:49 PM EDT): Chronic condition, stable and asymptomatic, will continue current medications and monitor. 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 Neuropathy most likely related to DJD L5S1 as seen on recent X-ray of her L-spine, will order physiatry referral and monitor. Obstructive sleep apnea 04/30/2024 Assessment & Plan (09/06/2024 8:05 AM EDT): Par does not tolerate positive pressure mask. Recommended she sleep with HOB elevated to minimize airway obstruction. Par stated understanding and agreed with plan; will CTM. Primary osteoarthritis of left knee 04/30/2024 Assessment & Plan (10/10/2024 9:45 AM EDT): [facility] evaluation on 10/03/24 Primary OA left knee M17.12: Will monitor for improvement of symptoms with therapy treatment provided by therapy department and refer back to [facility] as needed. Assessment & Plan (09/03/2024 3:35 PM EDT): Chronic mild condition, stable and asymptomatic, will continue current medications and monitor. Assessment & Plan (07/31/2024 4:06 PM EDT): Orders: XR Knee 4+ Views bilat; Future diclofenac (VOLTAREN) 1 % topical gel; Apply 2 g topically 4 (four) times a day for 28 days. Calcifying tendinitis 04/30/2024 Assessment & Plan (09/03/2024 3:43 PM EDT): Bilateral achilles tendon calcified tendonitis seen on imaging. Par agreed to referral to therapy department; ordered. Neuroleptic-induced parkinsonism ([facility] V24) 0 04/30/2024 Overview (04/30/2024): Tremors Assessment & Plan (12/24/2024 12:32 PM EDT): Continue current meds. Assessment & Plan (12/30/2024 2:36 PM EDT): >>ASSESSMENT AND PLAN FOR NEUROLEPTIC-INDUCED PARKINSONISM ([facility] V24) WRITTEN ON 09/03/2024 3:50 PM BY REGULO KAUFFMAN NP No tremor seen on exam during this encounter. Chronic condition, stable and asymptomatic, will continue current medications and monitor. >>ASSESSMENT AND PLAN FOR DRUG-INDUCED PARKINSONISM ([facility] V24) WRITTEN ON 09/03/2024 12:58 PM BY REGULO KAUFFMAN NP Parkinsonian symptoms not present during this encounter, will CTM Diabetes mellitus with perip heral vascular disease ([facility] V24, [facility] V28) 04/30/2024 Overview (04/30/2024): Peripheral Vascular Disease with DM Assessment & Plan (09/03/2024 1:01 PM EDT): Diabetes is controlled, bilateral palpable DP, PT pulses on exam, skin is warm, dry, no hemosiderin staining or atrophic, shiny skin; stable. Asymptomatic superficial rohit icosities of lower extremity, bilateral 04/30/2024 Overview (04/30/2024): Varicosities, Bilateral Assessment & Plan (09/03/2024 1:02 PM EDT): Mild asymptomatic varicose veins on bilateral lower extremities; stable, will CTM Onychodystrophy 04/30/2024 Assessment & Plan (09/03/2024 3:44 PM EDT): Chronic condition, stable and asymptomatic, will continue current medications and refer to [facility] Podiatry for at risk foot care. Callus 04/30/2024 Assessment & Plan (09/03/2024 3:44 PM EDT): Chronic condition, stable and asymptomatic, will continue current medications and refer to [facility] Podiatry for at risk foot care. Bilateral bunions 04/30/2024 Assessment & Plan (09/03/2024 3:45 PM EDT): Chronic condition, stable and asymptomatic, will continue current medications and monitor. Assessment & Plan (07/31/2024 4:06 PM EDT): Reviewed several types of mechanical splints for Елена's bunions. - Will ask Therapy to evaluate bunion splints (the type that can be gradually dialed to straighten, at hs, and if an off-loading hinge brace is viable for her knee. Refer to Podiatry for options for footwear (shoes.. was at clinic with slippers) with arch support, etc, given that pronating her L foot worsens her L medial knee pain. Orders: Ambulatory referral to Podiatry; Future Hammer toes, bilateral 04/30/2024 Overview (04/30/2024): Hammer Toe, Bilateral Second Toe Assessment & Plan (09/03/2024 3:45 PM EDT): Chronic condition, stable and asymptomatic, will continue current medications and monitor. Presbyopia 04/30/2024 Assessment & Plan (09/03/2024 3:51 PM EDT): Chronic condition, stable and asymptomatic, will continue current medications and monitor. Obesity, morbid (CMS/[facility] V24, [facility] V28) 04/30 Assessment & Plan (01/07/2025 5:02 PM EDT): Referral requested by Елена to [facility]. Assessment & Plan (09/03/2024 3:25 PM EDT): On exam this encounter: 44.1 kg/m Body Mass Index (Class 3 obesity). 7.3 lb weight gain since March 2024, will refer Omar back to [facility] and CTM Resolved Problems Problem Noted Date Diagnosed Date Resolved Date Periapical abscess 08/28/2024 Assessment & Plan (09/03/2024 3:29 PM EDT): Resolved with ABX, PCN V 500 mg PO TID X 10 days, therapy completes tomorrow. Tooth extraction last week by [facility] dental provider. Assessment & Plan (08/28/2024 1:48 PM EDT): Rafa presents to clinic s/p ED for dental pain and facial swelling. 08/25/24: Final Impression: Left maxilla 2nd premolar periapical abscess, partially obscured due to metal artifact from dental work . Dentigerous left maxillary sinusitis. TX: cefTRIAXone (ROCEPHIN) 1 g in sterile water 10 mL IV syringe (1 g intravenous Given 08/25/24 1350) morphine injection 4 mg (4 mg intravenous Given 08/25/24 1350) ondansetron (PF) (ZOFRAN) injection 4 mg (4 mg intravenous Given 08/25/24 1350) sodium chloride 0.9 % bolus 500 mL (0 mL intravenous Stopped 08/25/24 1603) sodium chloride 0.9 % flush 10 mL (10 mL intravenous Given 08/25/24 1625) iopamidoL (ISOVUE-370) 370 mg iodine /mL (76 %) injection 90 mL (90 mL intravenous Given 08/25/24 1625) Discharge medications: penicillin v potassium (VEETID) 500 mg tablet Take 1 tablet (500 mg total) by mouth 3 (three) times a day for 10 days. 30 each 08/25/2024 09/04/2024 TOYA Jiménez oxyCODONE (OXY-IR) 5 mg immediate release capsule Take 1 capsule (5 mg total) by mouth every 6 (six) hours if needed for severe pain. Max Daily Amount: 20 mg 10 capsule 08/25/2024 -- TOYA Jiménez Significant improvement in swelling, erythema and pain on exam today in clinic. Par will see [facility] dentist tomorrow morning and depending what he is able to to, possible referral to [facility] surgeon, WTJj. 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 Hyperglyceridemia, pure 04/30/202408/16 Tinea cruris 04/30/2024 09/03/2024 Overview (04/30/2024): Tinea Cruris, Left Inguinal Area Encounters Date Type Department Care Team Description 02/11/2025 [facility] [address] [phone] Justa Leon RN 02/10/2025 [facility] [address] [phone] Justa Leon, RN Paranoia ([facility] [place] V24, [facility] V28) (Primary Dx); Mild dementia with anxiety, unspecified dementia type ([facility] V24, [facility] V28); Schizoaffective disorder, bipolar type ([facility] V24, [facility] V28); Abnormal urinalysis 02/09/2025 1:56 PM EDT - 02/11/2025 2:53 PM EDT Emergency [facility] Emergency [address] [place] [address] Sd Raman MD Landry, MD [place] Corodba Ruth, MD Corrado, Adam D, MD Deslouches, Joshua, MD Ziebro, John, MD Paranoia ([facility] V24, [facility] V28) (Primary Dx); Bipolar affective disorder, remission status unspecified (CMS/HCC V24, CMS/HCC V28); Abnormal urinalysis Discharge Disposition: [facility] 02/09/2025 12:00 PM EDT [facility] Home Visit Marsha ABRAMS [facility] [address] [place] [phone] Dena Chavez 02/09/2025 7:30 AM EDT [facility] Home Visit Marsha ABRAMS [facility] [address] [place] [phone] Ingrid Corea 02/08/2025 5:00 PM EDT [facility] Home Visit Marsha ABRAMS [facility] [address] [place] [phone] Dacia Beavers 02/08/2025 12:00 PM EDT [facility] Home Visit Marsha ABRAMS [facility] [address] [place] [phone] Dena Chavez 02/08/2025 9:15 AM EDT [facility] Home Visit Marsha ABRAMS [facility] [address] [place] [phone] Dacia Beavers 02/07/2025 4:45 PM EDT Clinical Support [facility]ha ABRAMS [facility] [address] [place] [phone] 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, diagnostic radiologist management (Primary Dx) 02/07/2025 4:30 PM EDT [facility] Home Visit Marsha ABRAMS [facility] [address] [place] [phone] Ashley Eastman 02/07/2025 9:30 AM EDT [facility] Home Visit Marsha ABRAMS [facility] [address] [place] [phone] Ralph Loyola 02/07/2025 8:00 AM EDT [facility] Home Visit Marsha ABRAMS [facility] [address] [place] [phone] Carmen Hartmann 02/07/2025 Lab Marsha ABRAMS MA Occupational Therapy [address] [place] [phone] Clemencia Napier, OT Schizophrenia in partial remission with history of multiple episodes ([facility] V24, [facility] V28) 02/07/2025 Lab [facility] [address] [place] [phone] Regulo Kauffman NP Constipation, unspecified constipation type 02/06/2025 5:00 PM EDT [facility] Home Visit Marsha ABRAMS [facility] [address] [place] [phone] Ashley Eastman 02/06/2025 11:00 AM EDT Office Visit [facility]BR[facility] [address] [place] [phone] Michelle Castillo MD Medication management (Primary Dx); Witnessed seizure-like activity ([facility] V24, [facility] V28) 02/06/2025 8:30 AM EDT [facility] Home Visit Marsha ABRAMS [facility] [address] [place] [phone] Carmen Hartmann 02/06/2025 [facility] On[facility]Call [facility] [address] [place] [phone] Michelle Castillo MD 02/05/2025 [facility] [address] [place] [phone] Juliet Scott NP 02/04/2025 8:30 AM EDT [facility] Home Visit Marsha ABRAMS [facility] [address] [place] [phone] Titi Thomas 02/03/2025 2:45 PM EDT - 02/05/2025 5:00 PM EDT Hospital Encounter [facility] Intermediate Care Unit [address] [place] [address] Chava Flannery MD Jones, Christopher, MD Santoyo-Pacheco, Omar D, MD Breakthrough seizure ([facility] [place] V24, [facility] [place] [place] V28) (Primary Dx); Localized swelling of left lower extremity; TIA (transient ischemic attack); Diabetes mellitus with peripheral vascular disease ([facility] [place] [place] V24, [facility] [place] V28); Type 2 diabetes mellitus with stage 3a chronic kidney disease, without long-term current use of insulin ([facility] [place] [place] V24, [facility] [place] [place] V28); Sacroiliitis, not elsewhere classified ([facility] [place] [place] V24); Lumbar spondylosis; Seizure ([facility] [place] [place] V24, [facility] [place] [place] V28) Discharge Disposition: Home-Health Care [facility] 02/03/2025 12:45 PM EDT Treatment [facility] Occupational Therapy [address] [place] [phone] Shantelle Dumont COTA 02/03/2025 11:30 AM EDT Office Visit [facility] [address] [place] [phone] Regulo Kauffman NP Left medial knee pain (Primary Dx) 02/03/2025 8:30 AM EDT [facility] / [facility] Home Visit [facility] [address] [place] [phone] Titi Thomas 02/03/2025 [facility] Admissions [facility] [address] [place] [phone] Justa Leon, HEIDI Breakthrough seizure ([facility] [place] [place] V24, [facility] [place] [place] V28) (Primary Dx); Transient ischemic attack (TIA) 02/02/2025 8:30 AM EDT [facility] [address] [place] [phone] Marysol Diaz 02/01/2025 5:30 PM EDT [facility] / [facility] Home Visit Marsha ABRAMS [facility] [address] [place] [phone] Marysol Diaz 02/01/2025 8:30 AM EDT [facility] / [facility] Home Visit Marsha ABRAMS [facility] [address] [place] [phone] Marysol Diaz 01/31/2025 4:30 PM EDT [facility] / [facility] Home Visit Marsha ABRAMS [facility] [address] [place] [phone] Ashley Eastman 01/31/2025 9:30 AM EDT [facility] / [facility] Home Visit Marsha ABRAMS [facility] [address] [place] [phone] Ralph Loyola 01/31/2025 8:00 AM EDT [facility] / [facility] Home Visit Marsha ABRAMS [facility] [address] [place] [phone] Carmen Hartmann 01/31/2025 Lab [facility] [address] [place] [phone] Regulo Kauffman NP Constipation, unspecified constipation type 01/30/2025 4:30 PM EDT [facility] Home Visit Marsha ABRAMS [facility] [address] [place] [phone] Ashley Eastman 01/30/2025 8:30 AM EDT [facility] / [facility] Home Visit Marsha ABRAMS [facility] [address] [place] [phone] Carmen Hartmann 01/29/2025 4:30 PM EDT [facility] Home [facility] / P[facility] Home Visit [facility] [address] [place] [address] Ashley Eastman 01/29/2025 2:00 PM EDT Clinical Support [facility] [address] [place] [address] Celsa Perez RN 01/29/2025 8:30 AM EDT PACE Home Care / PACE Home Visit [facility] [address] [place] [phone] Carmen Hartmann 01/28/2025 4:30 PM EDT PACE Home Care / PACE Home Visit [facility] [address] [place] [phone] Ashley Eastman 01/28/2025 8:30 AM EDT PACE Home Care / PACE Home Visit [facility] [address] [place] [phone] Carmen Hartmann 01/27/2025 4:30 PM EDT PACE Home Care / PACE Home Visit [facility] [address] [place] [phone] Ashley Eastman 01/27/2025 8:30 AM EDT P[facility] Home [facility] / P[facility] Home Visit [facility] [address] [place] [phone] Carmen Hartmann 01/26/2025 5:30 PM EDT P[facility] Home [facility] / [facility] [address] [place] [phone] Cherry Jiang 01/26/2025 12:00 PM EDT [facility] Home [facility] / [facility] [address] [place] [phone] Dena Chavez 01/25/2025 6:00 PM EDT [facility] Home [facility] / [facility] [place] [facility] [address] [place] [phone] Dacia Beavers 01/25/2025 8:30 AM EDT [facility] Home [facility] / [facility] [place] [facility] [address] [place] [phone] Dacia Beavers 01/24/2025 4:30 PM EDT PACE Home Care / PACE Home Visit [facility] [address] [place] [phone] Ashley Eastman 01/24/2025 9:15 AM EDT PACE Home Care / P[facility] Home Visit [facility] [address] [place] [phone] Carmen Hartmann 01/24/2025 8:00 AM EDT P[facility] Home [facility] / P[facility] Home Visit [facility] [address] [place] [phone] Carmen Hartmann 01/24/2025 Lab [facility] [address] [place] [phone] Regulo Kauffman NP Constipation, unspecified constipation type 01/23/2025 4:30 PM EDT P[facility] Home [facility] / [facility] Home Visit [facility] [address] [place] [phone] Ashley Eastman 01/23/2025 11:00 AM EDT Office Visit [facility] [address] [place] [phone] Michelle Castillo MD Insomnia due to other mental disorder (Primary Dx); Schizoaffective disorder, bipolar type (CMS/HCC V24, CMS/HCC V28); Continuous auditory hallucinations; Medication management; Left medial knee pain; Flu vaccine need 01/23/2025 8:30 AM EDT P[facility] Home Care / P[facility] Home Visit [facility] [address] [place] [phone] Carmen Hartmann 01/22/2025 4:30 PM EDT P[facility] Home Care / [facility] Home Visit [facility] [address] [place] [phone] Dena Chavez 01/22/2025 8:30 AM EDT [facility] Home [facility] / [facility] [address] [place] [phone] Carmen Hartmann 01/21/2025 4:30 PM EDT [facility] Home [facility] / [facility] [address] [place] [phone] Dena Chavez 01/21/2025 8:30 AM EDT [facility] Home [facility] / [facility] [address] [place] [phone] Carmen Hartmann 01/20/2025 4:30 PM EDT [facility] Home [facility] / [facility] [address] [place] [phone] Ashley Eastman 01/20/2025 8:30 AM EDT [facility] Home [facility] / [facility] [place] [facility] [address] [place] [phone] Carmen Hartmann 01/19/2025 5:00 PM EDT [facility] Home [facility] / [facility] [address] [place] [phone] Seymour Obando 01/19/2025 4:30 PM EDT [facility] Home [facility] / [facility] [address] [place] [phone] Seymour Obando 01/19/2025 12:00 PM EDT [facility] Home [facility] / [facility] [place] [facility] [address] [place] [phone] Dacia Beavers 01/19/2025 8:30 AM EDT [facility] / [facility] [place] [facility] [address] [place] [address] Dena Chavez 01/18/2025 4:30 PM EDT P[facility] Home [facility] / P[facility] Home Visit [facility] [address] [place] [address] Marysol Diaz 01/18/2025 8:30 AM EDT [facility] Home [facility] / [facility] Home Visit [facility] [address] [place] [phone] Marysol Diaz 01/18/2025 [facility]Call [facility] [address] [place] [phone] Spring Reyes LPN 01/17/2025 4:30 PM EDT P[facility] Home Care / [facility] Home Visit [facility] [address] [place] [phone] Ashley Eastman 01/17/2025 9:30 AM EDT [facility] Home [facility] / [facility] Home Visit [facility] [address] [place] [phone] Titi Thomas 01/17/2025 8:00 AM EDT [facility] Home [facility] / [facility] Home Visit [facility] [address] [place] [phone] Titi Thomas 01/17/2025 Lab [facility] [address] [place] [phone] Regulo Kauffman NP Constipation, unspecified constipation type 01/16/2025 4:30 PM EDT [facility] Home [facility] / [facility] Home Visit [facility] [address] [place] [phone] Ashley Eastman 01/16/2025 8:30 AM EDT P[facility] Home [facility] / P[facility] Home Visit [facility] [address] [place] [phone] Titi Thomas 01/15/2025 4:30 PM EDT [facility] Home [facility] / [facility] Home Visit [facility] [address] [place] [phone] Ashley Eastman 01/15/2025 8:30 AM EDT [facility] Home [facility] / [facility] Home Visit [facility] [address] [place] [phone] Carmen Hartmann 01/14/2025 4:30 PM EDT [facility] Home [facility] / [facility] Home Visit [facility] [address] [place] [phone] Ashley Eastman 01/14/2025 1:30 PM EDT Treatment [facility] Physical Therapy [address] [place] [phone] Rosaura Mauro, PT 01/14/2025 11:00 AM EDT Clinical Support [facility] [address] [place] [phone] Bethany Mccabe, HEIDI 01/14/2025 8:30 AM EDT [facility] Home [facility] / [facility] Home Visit [facility] [address] [place] [phone] Carmen Hartmann 01/13/2025 4:30 PM EDT P[facility] Home [facility] / [facility] Home Visit [facility] [address] [place] [phone] Ashley Eastman 01/13/2025 8:30 AM EDT P[facility] Home [facility] / P[facility] Home Visit [facility] [address] [place] [phone] Titi Thomas 01/12/2025 5:45 PM EDT [facility] Home [facility] / [facility] Home Visit [facility] [address] [place] [phone] Dena Chavez 01/12/2025 12:00 PM EDT P[facility] Home [facility] / [facility] Home Visit [facility] [address] [place] [phone] Dena Chavez 01/12/2025 9:15 AM EDT P[facility] Home [facility] / [facility] Home Visit [facility] [address] [place] [phone] Dena Chavez 01/11/2025 5:00 PM EDT P[facility] Home [facility] / [facility] Home Visit [facility] [address] [place] [phone] Dacia Beavers 01/11/2025 12:00 PM EDT P[facility] Home [facility] / [facility] Home Visit [facility] [address] [place] [phone] Dena Chavez 01/11/2025 9:45 AM EDT P[facility] Home Care / [facility] Home Visit [facility] [address] [place] [phone] Dacia Beavers 01/10/2025 4:30 PM EDT P[facility] Home [facility] / [facility] Home Visit [facility] [address] [place] [phone] Ashley Eastman 01/10/2025 11:00 AM EDT [facility] Home [facility] / [facility] Home Visit [facility] [address] [place] [phone] Ralph Loyola 01/10/2025 11:00 AM EDT Office Visit [facility] [place] [address] [place] [address] Analisa Perez, ALONSO Oropharyngeal dysphagia (Primary Dx); Chronic idiopathic constipation; Gastroesophageal reflux disease, unspecified whether esophagitis present; History of adenomatous polyp of colon 01/10/2025 10:00 AM EDT [facility] Home [facility] / [facility] Home [facility] [address] [place] [phone] Carmen Hartmann 01/10/2025 8:00 AM EDT [facility] Home [facility] / [facility] Home Visit [facility] [address] [place] [phone] Carmen Hartmann 01/10/2025 Telephone [facility] [place] [address] [place] [phone] Analisa Perez NP 01/10/2025 Lab [facility] [address] [place] [phone] Regulo Kauffman NP Constipation, unspecified constipation type 01/10/2025 Lab [facility] Occup[facility] [address] [place] [phone] Clemencia Napier, OT Schizophrenia in partial remission with history of multiple episodes (CMS/HCC V24, CMS/HCC V28) 01/09/2025 4:30 PM EDT [facility] Home [facility] / PACE Home Visit [facility] [address] [place] [phone] Ashley Eastman 01/09/2025 8:30 AM EDT [facility] Home [facility] / [facility] Home Visit [facility] [address] [place] [phone] Titi Thomas 01/08/2025 4:30 PM EDT P[facility] Home [facility] / [facility] Home Visit [facility] [address] [place] [phone] Ashlye Eastman 01/08/2025 8:30 AM EDT P[facility] Home [facility] / P[facility] Home Visit [facility] [address] [place] [phone] Carmen Hartmann 01/07/2025 4:30 PM EDT [facility] Home [facility] / [facility] Home Visit [facility] [address] [place] [phone] Ashley Eastman 01/07/2025 1:00 PM EDT Office Visit [facility] [address] [place] [phone] Michelle Castillo MD History of petit-mal seizures (Primary Dx); Chest pain at rest; Obesity, morbid (CMS/HCC V24, CMS/HCC V28); Schizoaffective disorder, bipolar type (CMS/HCC V24, CMS/HCC V28) 01/07/2025 8:30 AM EDT [facility] Home [facility] / [facility] Home Visit [facility] [address] [place] [phone] Carmen Hartmann 01/06/2025 4:30 PM EDT P[facility] Home [facility] / PACE Home Visit [facility] [address] [place] [phone] Ashley Eastman 01/06/2025 8:30 AM EDT P[facility] Home [facility] / PACE Home Visit [facility] [address] [place] [phone] Carmen Hartmann 01/05/2025 4:30 PM EDT PACE Home Care / PACE Home Visit [facility] [address] [place] [phone] Marysol Diaz 01/05/2025 8:30 AM EDT P[facility] Home [facility] / PACE Home Visit [facility] [address] [place] [phone] Marysol Diaz 01/04/2025 5:00 PM EDT PACE Home [facility] / PACE Home Visit [facility] [address] [place] [phone] Marysol Diaz 01/04/2025 9:00 AM EDT PACE Home [facility] / PACE Home Visit [facility] [address] [place] [phone] Marysol Diaz 01/03/2025 4:30 PM EDT PACE Home [facility] / PACE Home Visit [facility] [address] [place] [phone] Ashley Eastman 01/03/2025 9:30 AM EDT P[facility] Home [facility] / [facility]ACE Home Visit [facility] [address] [place] [phone] Carmen Hartmann 01/03/2025 8:00 AM EDT PACE Home [facility] / PACE Home Visit [facility] [address] [place] [phone] Carmen Hartmann 01/03/2025 Lab [facility] [address] [place] [phone] Regulo Kauffman NP Constipation, unspecified constipation type 01/02/2025 4:30 PM EDT PACE Home [facility] / PACE Home Visit [facility] [address] [place] [phone] Ashley Eastman 01/02/2025 8:30 AM EDT PACE Home [facility] / PACE Home Visit [facility] [address] [place] [phone] Carmen Hartmann 01/01/2025 4:30 PM EDT PACE Home [facility] / PACE Home Visit [facility] [address] [place] [phone] Ashley Eastman 01/01/2025 8:30 AM EDT PACE Home [facility] / PACE Home Visit [facility] [address] [place] [phone] Carmen Hartmann 12/31/2024 4:30 PM EDT PACE Home [facility] / [facility] [address] [place] [phone] TherouAshley dugan 12/31/2024 12:45 PM EDT Treatment [facility] [address] [place] [address] Chava Singh, PT 12/31/2024 10:00 AM EDT [facility]ACE External Visit [facility] [address] [place] [address] Healthcare maintenance 12/31/2024 8:30 AM EDT PACE Home Care / [facility] Home Visit [facility] [address] [place] [phone] Carmen Hartmann 12/30/2024 4:30 PM EDT [facility] Home [facility] / [facility] [address] [place] [phone] TherouxAshley 12/30/2024 10:00 AM EDT Treatment [facility] [address] [place] [phone] Chava Singh, PT 12/30/2024 8:30 AM EDT PACE Home [facility] / [facility] Home Visit [facility] [address] [place] [phone] Titi Thomas 12/29/2024 4:45 PM EDT PACE Home [facility] / [facility] Visit [facility] [address] [place] [phone] Dacia Beavers 12/29/2024 8:30 AM EDT PACE Home [facility] / [facility] Visit [facility] [address] [place] [phone] Dacia Beavers 12/28/2024 5:00 PM EDT PACE Home Care / PACE Home Visit [facility] [address] [place] [phone] Dacia Beavers 12/28/2024 4:30 PM EDT PACE Home Care / PACE Home Visit [facility] [address] [place] [phone] Dacia Beavers 12/28/2024 12:00 PM EDT PACE Home Care / PACE Home Visit [facility] [address] [place] [phone] Dena Chavez 12/28/2024 10:15 AM EDT Clinical Support [facility] [address] [place] [phone] Becca Davis LPN 12/28/2024 8:00 AM EDT PACE Home Care / PACE Home Visit [facility] [address] [place] [phone] Ingrid Corea 12/27/2024 4:30 PM EDT PACE Home Care / PACE Home Visit [facility] [address] [place] [phone] Ashley Eastman 12/27/2024 9:30 AM EDT PACE Home Care / PACE Home Visit [facility] [address] [place] [phone] Ralph Loyola 12/27/2024 8:00 AM EDT PACE Home Care / PACE Home Visit [facility] [address] [place] [phone] Titi Thomas 12/27/2024 Lab [facility] [address] [place] [phone] Regulo Kauffman NP Constipation, unspecified constipation type 12/26/2024 4:30 PM EDT PACE Home Care / PACE Home Visit [facility] [address] [place] [phone] TherAshley francisco 12/26/2024 8:30 AM EDT PACE Home Care / PACE Home Visit [facility] [address] [place] [phone] Carmen Hartmann 12/25/2024 4:30 PM EDT PACE Home Care / PACE Home Visit [facility] [address] [place] [phone] TherAshley francisco 12/25/2024 8:30 AM EDT PACE Home Care / PACE Home Visit [facility] [address] [place] [phone] Carmen Hartmann 12/24/2024 4:30 PM EDT PACE Home [facility] / PACE Home Visit [facility] [address] [place] [phone] TherAshley francisco 12/24/2024 11:00 AM EDT Office Visit [facility] [address] [place] [phone] Michelle Castillo MD Schizoaffective disorder, bipolar type (CMS/HCC V24, CMS/HCC V28) (Primary Dx); Insomnia due to other mental disorder; Parkinsonian tremor (CMS/HCC V24, CMS/HCC V28); Localized osteoarthritis of knees, bilateral; Constipation by delayed colonic transit; Drug-induced parkinsonism (CMS/HCC V24) 12/24/2024 8:30 AM EDT PACE Home Care / [facility]ACE Home Visit [facility] [address] [place] [phone] Carmen Hartmann 12/23/2024 4:30 PM EDT PACE Home Care / PACE Home Visit [facility] [address] [place] [phone] Ashley Eastman 12/23/2024 8:30 AM EDT PACE Home Care / PACE Home Visit [facility] [address] [place] [phone] Carmen Hartmann 12/22/2024 4:30 PM EDT PACE Home Care / P[facility] Home Visit [facility] [address] [place] [phone] Marysol Diaz 12/22/2024 8:45 AM EDT PACE Home Care / PACE Home Visit [facility] [address] [place] [phone] Dena Chavez 12/21/2024 4:45 PM EDT PACE Home Care / PACE Home Visit [facility] [address] [place] [phone] Marysol Diaz 12/21/2024 11:00 AM EDT Clinical Support [facility] [address] [place] [phone] Becca Davis LPN 12/21/2024 9:00 AM EDT PACE Home Care / PACE Home Visit [facility] [address] [place] [phone] Dena Chavez 12/20/2024 4:30 PM EDT PACE Home Care / PACE Home Visit [facility] [address] [place] [phone] Ashley Eastman 12/20/2024 9:30 AM EDT PACE Home Care / PACE Home Visit [facility] [address] [place] [phone] Ralph Loyola 12/20/2024 8:00 AM EDT PACE Home Care / PACE Home Visit [facility] [address] [place] [phone] Carmen Hartmann 12/20/2024 [facility] [address] [place] [phone] Regulo Kauffman NP Constipation, unspecified constipation type 12/19/2024 4:30 PM EDT PACE Home Care / P[facility] Home Visit [facility] [place] [facility] [address] [place] [phone] TherAshley francisco 12/17/2024 11:00 AM EDT Clinical Support [facility] [address] [phone] Celsa Perez RN 12/16/2024 8:30 AM EDT PACE Home Care / PACE Home Visit [facility] [place] [facility] [address] [place] [phone] Titi Thomas 12/15/2024 [facility] [address] [phone] Juliet Scott NP 12/13/2024 4:30 PM EDT PACE Home Care / PACE Home Visit [facility] [place] [facility] [address] [place] [phone] TherAshley francisco 12/13/2024 Lab [facility] Occupational Therapy [address] [place] [phone] Clemencia Napier, ADITYA Schizophrenia in partial remission with history of multiple episodes (CMS/HCC V24, CMS/HCC V28) 12/13/2024 Lab [facility] [address] [place] [phone] Regulo Kauffman NP Constipation, unspecified constipation type 12/10/2024 4:30 PM EDT PACE Home Care / PACE Home Visit [facility] [place] [facility] [address] [place] [phone] TherAshley francisco 12/06/2024 4:30 PM EDT PACE Home Care / PACE Home Visit [facility] [address] [place] [phone] Ashley Eastman 12/06/2024 8:00 AM EDT PACE Home Care / PACE Home Visit [facility] [address] [place] [phone] Titi Thomas 12/06/2024 Lab [facility] [address] [place] [phone] Regulo Kauffman NP Constipation, unspecified constipation type 12/05/2024 4:30 PM EDT PACE Home Care / PACE Home Visit [facility] [address] [place] [phone] Ashley Eastman 12/05/2024 12:00 PM EDT Office Visit [facility] [place] [facility] [address] [place] [phone] Michelle Castillo MD Schizoaffective disorder, bipolar type ([facility] V24, [facility] V28) (Primary Dx); Hallucinations, visual; Continuous auditory hallucinations; Transitioned from acute care to emergency department 12/05/2024 8:30 AM EDT PACE Home Care / PACE Home Visit [facility] [address] [place] [phone] Titi Thomas 12/05/2024 PACE Admissions [facility] [address] [place] [phone] Justa Leon RN Schizoaffective disorder, bipolar type (CMS/HCC V24, CMS/[facility] V28) (Primary Dx); Current episode of major depressive disorder without prior episode, unspecified depression episode severity; Type 2 diabetes mellitus without complication, without long-term current use of insulin (CMS/HCC V24, CMS/HCC V28) 12/04/2024 4:30 PM EDT PACE Home Care / PACE Home Visit [facility] [address] [place] [address] Ashley Eastman 12/04/2024 8:30 AM EDT PACE Home Care / PACE Home Visit [facility] [place] [facility] [address] [place] [phone] Titi Thomas 12/03/2024 4:30 PM EDT [facility] Home [facility] / [facility] Visit [facility] [address] [place] [phone] Dena Chavez 12/03/2024 8:30 AM EDT [facility] Home [facility] / [facility] Home Visit [facility] [address] [place] [phone] Carmen Hartmann 12/02/2024 4:30 PM EDT [facility] Home [facility] / [facility] Home Visit [facility] [address] [place] [phone] Ashley Eastman 12/02/2024 8:30 AM EDT [facility] Home [facility] / [facility] Home Visit [facility] [address] [place] [phone] Carmen Hartmann 12/01/2024 4:45 PM EDT [facility] Home [facility] / [facility] Home Visit [facility] [address] [place] [phone] Natali Sanford 12/01/2024 12:00 PM EDT [facility] Home [facility] / [facility] Home Visit [facility] [address] [place] [phone] Dena Chavez 12/01/2024 8:15 AM EDT [facility] Home [facility] / [facility] Home Visit [facility] [address] [place] [phone] Natali Sanford 11/30/2024 12:00 PM EDT [facility] Home [facility] / [facility] Home Visit [facility] [address] [place] [address] Dena Chavez 11/30/2024 9:30 AM EDT [facility] Home [facility] / [facility] Home Visit [facility] [address] [place] [address] Dariana Sims 11/29/2024 4:30 PM EDT [facility] Home [facility] / [facility] Home Visit [facility] [address] [place] [address] Ashley Eastman 11/29/2024 9:30 AM EDT [facility] Home [facility] / [facility] Home Visit [facility] [address] [place] [phone] Ralph Loyola 11/29/2024 8:15 AM EDT [facility] Home [facility] / [facility] Home Visit [facility] [address] [place] [phone] Carmen Hartmann 11/29/2024 Lab [facility] [address] [place] [phone] Regulo Kauffman NP Constipation, unspecified constipation type 11/28/2024 4:30 PM EDT [facility] / [facility] Home Visit [facility] [address] [place] [phone] Ashley Eastman 11/28/2024 8:30 AM EDT [facility] Home [facility] / [facility] Home Visit [facility] [address] [place] [phone] Carmen Hartmann 11/27/2024 4:30 PM EDT [facility] Home [facility] / [facility] Home Visit [facility] [address] [place] [phone] Ashley Eastman 11/27/2024 8:30 AM EDT [facility] Home [facility] / [facility] Home Visit [facility] [address] [place] [address] Carmen Hartmann 11/26/2024 4:30 PM EDT [facility] Home [facility] / [facility] Home Visit [facility] [address] [place] [address] Ashley Eastman 11/26/2024 12:30 PM EDT Clinical Support [facility] [address] [place] [address] 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 RN Schizoaffective disorder, unspecified type (CMS/HCC V24, CMS/HCC V28) (Primary Dx) 11/26/2024 8:30 AM EDT [facility] Home [facility] / [facility] Home Visit [facility] [address] [place] [phone] Carmen Hartmann 11/26/2024 Telephone [facility] [address] [place] [phone] Bethany Mccabe RN 11/25/2024 4:30 PM EDT [facility] Home [facility] / [facility] Home Visit [facility] [address] [place] [phone] Ashley Eastman 11/25/2024 9:05 AM EDT [facility] Home [facility] / [facility] Home Visit [facility] [address] [place] [phone] Ashley Eastman 11/24/2024 4:15 PM EDT [facility] Home [facility] / [facility] Home Visit [facility] [address] [place] [phone] Marysol Diaz 11/24/2024 9:15 AM EDT [facility] Home [facility] / [facility] Home Visit [facility] [address] [place] [phone] Dena Chavez 11/23/2024 5:30 PM EDT [facility] Home [facility] / [facility] Home Visit [facility] [address] [place] [phone] Marysol Diaz 11/23/2024 12:00 PM EDT [facility] / [facility] Home Visit [facility] [address] [place] [phone] Natali Sanford 11/23/2024 8:30 AM EDT [facility] Home [facility] / [facility] Home Visit [facility] [address] [place] [phone] Marysol Diaz 11/22/2024 4:30 PM EDT [facility] Home [facility] / [facility] Home Visit [facility] [address] [place] [phone] Ashley Eastman 11/22/2024 9:30 AM EDT [facility] Home [facility] / [facility] Home Visit [facility] [address] [place] [phone] Ralph Loyola 11/22/2024 8:00 AM EDT [facility] Home [facility] / [facility] Home Visit [facility] [address] [place] [phone] Carmen Hartmann 11/22/2024 [facility] [address] [place] [phone] Regulo Kauffman NP Constipation, unspecified constipation type 11/21/2024 4:30 PM EDT [facility] / [facility] [address] [place] [phone] Ashley Eastman 11/21/2024 8:30 AM EDT [facility] / [facility] [address] [place] [phone] Carmen Hartmann 11/20/2024 4:30 PM EDT [facility] Home [facility] / [facility] Home Visit [facility] [address] [place] [phone] Ashley Eastman 11/20/2024 8:30 AM EDT [facility] Home [facility] / [facility] Home Visit [facility] [address] [place] [phone] Carmen Hartmann 11/19/2024 4:30 PM EDT [facility] Home [facility] / [facility] Home Visit [facility] [address] [place] [phone] Ashley Eastman 11/19/2024 12:45 PM EDT PACE External Visit Marsha [facility]BRAMS MA [address] [place] [address] 11/19/2024 8:30 AM EDT [facility] Home [facility] / [facility] Home Visit [facility] [address] [place] [phone] Carmen Hartmann 11/18/2024 4:30 PM EDT [facility] Home [facility] / [facility] Home Visit [facility] [address] [place] [phone] Ashley Eastman 11/18/2024 8:30 AM EDT [facility] Home [facility] / [facility] Home Visit [facility] [address] [place] [phone] Carmen Hartmann 11/17/2024 4:15 PM EDT [facility] / [facility] [address] [place] [phone] Winter Connor 11/17/2024 12:00 PM EDT [facility] / [facility] [address] [place] [phone] Dena Chavez 11/17/2024 7:30 AM EDT [facility] Home [facility] / [facility] Home Visit [facility] [address] [place] [address] Nurse, Winter 11/16/2024 5:30 PM EDT [facility] Home [facility] / [facility] Home Visit [facility] [address] [place] [phone] Nurse, Winter 11/16/2024 12:00 PM EDT [facility] Home [facility] / [facility] Home Visit [facility] [address] [place] [phone] Nurse, Winter 11/16/2024 8:00 AM EDT [facility] Home [facility] / [facility] Home Visit [facility] [address] [place] [phone] Nurse, Winter 11/15/2024 4:30 PM EDT [facility] Home [facility] / [facility] Home Visit [facility] [address] [place] [phone] Ashley Eastman 11/15/2024 9:30 AM EDT [facility] Home [facility] / [facility] Home Visit [facility] [address] [place] [phone] Ralph Loyola 11/15/2024 8:00 AM EDT [facility] Home [facility] / [facility] Home Visit [facility] [address] [place] [phone] Carmen Hartmann 11/15/2024 Lab [facility] [address] [place] [address] Regulo Kauffman NP Constipation, unspecified constipation type 11/15/2024 Lab [facility] [address] [place] [phone] Karthikeyan, Clemencia, OT Schizophrenia in partial remission with history of multiple episodes (CMS/HCC V24, CMS/HCC V28) 11/14/2024 4:30 PM EDT [facility] Home [facility] / [facility] Home Visit [facility] [address] [place] [phone] Ashley Eastman 11/14/2024 8:30 AM EDT [facility] Home [facility] / [facility] Home Visit [facility] [address] [place] [phone] Carmen Hartmann 11/13/2024 4:30 PM EDT [facility] Home [facility] / PACE Home Visit [facility] [address] [place] [phone] Ashley Eastman 11/13/2024 8:30 AM EDT [facility] Home [facility] / [facility] Home Visit [facility] [address] [place] [phone] Carmen Hartmann 11/12/2024 4:30 PM EDT [facility] Home [facility] / [facility]ACE Home Visit [facility] [address] [place] [phone] Ashley Eastman 11/12/2024 8:30 AM EDT [facility] Home [facility] / PACE Home Visit [facility] [address] [place] [phone] Carmen Hartmann 11/11/2024 4:30 PM EDT [facility] Home [facility] / PACE Home Visit [facility] [address] [place] [phone] Ashley Eastman 11/11/2024 8:30 AM EDT [facility] Home [facility] / [facility] Home Visit [facility] [address] [place] [phone] Carmen Hartmann from Last 3 Months Immunizations Immunization Administration Dates Next Due Influenza, Unspecified 01/18/2024 Moderna SARS-CoV-2 COVID-19, mRNA, LNP-S, preservative free 01/25/2024,03/29/2023,10/19/2022,10/19,10/19/2022 Pneumococcal polysaccharide 23 valent (Pneumovax 23) 2yo and older 10/19/2022 Zoster recombinant (Shingrix ) 19yo and older 10/19/2022,10/19/2022 Surgical History Surgery Date Site/Laterality Comments HYSTERECTOMY Medical History Medical History Date Comments Epilepsy ([facility] [place] [place] V24, [facility] V28) Anxiety Depression Bipolar 1 disorder ([facility] [place] [place] V24, [facility] V28) FERMÍN (obstructive sleep apnea) Migraines Diabetes mellitus ([facility] V 24, [facility] [place] V28) Adult hypothyroidism 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 For example, child nutrition director or elderly care for an older adult? [...] not to disclose 2024 10:13 AM EST Obstetrics History Last Filed Vital Signs Vital Sign Reading [...] Mass Index 42.91 02/09/2025 2:19 PM EDT Plan of Treatment Upcoming Encounters Date Type Department Care Team (Latest Contact Info) Description 02/12/2025 8:30 AM EDT P[facility] Home [facility] / PACE Home Visit [facility] [address] [place] [address] Carmen Hartmann 02/12/2025 4:30 PM EDT [facility] Home [facility] / PACE Home Visit [facility] [address] [place] [address] Ashley Eastman 02/13/2025 8:30 AM EDT P[facility] Home [facility] / PACE Home Visit [facility] [address] [place] [phone] Carmen Hartmann 02/13/2025 9:00 AM EDT [facility] Attendance[facility]Day [facility] [address] [place] [address] 02/13/2025 4:30 PM EDT PACE Home Care / PACE Home Visit [facility] [address] [place] [phone] Ashley Eastman 02/14/2025 8:00 AM EDT P[facility] Home [facility] / PACE Home Visit [facility] [address] [place] [phone] Carmen Hartmann 02/14/2025 9:30 AM EDT [facility] Home [facility] / PACE Home Visit [facility] [address] [place] [phone] Ralph Loyola 02/14/2025 4:30 PM EDT P[facility] Home [facility] / PACE Home Visit [facility] [address] [place] [phone] Ashley Eastman 02/15/2025 8:30 AM EDT P[facility] Home [facility] / PACE Home Visit [facility] [address] [place] [phone] Marysol Diaz 02/15/2025 12:00 PM EDT P[facility] Home [facility] / [facility] Visit [facility] [address] [place] [phone] Natali Sanford 02/15/2025 5:30 PM EDT [facility] Home [facility] / [facility] [address] [place] [phone] Marysol Diaz 02/16/2025 8:30 AM EST [facility] Home [facility] / [facility] [address] [place] [phone] Marysol Diaz 02/16/2025 12:00 PM EST [facility] Home [facility] / [facility] [address] [place] [phone] Natali Sanford 02/16/2025 4:30 PM EST [facility] Home [facility] / [facility] [address] [place] [phone] Marysol Diaz 02/16/2025 5:30 PM EST [facility] Home [facility] / [facility] [address] [place] [phone] Marysol Diaz 02/17/2025 8:30 AM EST [facility] Home [facility] / [facility] [address] [place] [phone] Carmen Hartmann 02/17/2025 11:00 AM EST [facility] [address] [place] [phone] Michelle Castillo MD [address] [place] [address] 02/17/2025 4:30 PM EST P[facility] Home [facility] / [facility] [address] [place] [address] Ashley Eastman 02/18/2025 8:30 AM EST [facility] Home [facility] / [facility] Visit [facility] [address] [place] [address] Carmen Hartmann 02/18/2025 11:00 AM EST [facility] [address] [place] [address] Michelle Castillo MD [address] [address] Brigette East LPN 02/18/2025 4:30 PM EST [facility] / [facility] [address] [place] [phone] Ashley Eastman 02/19/2025 8:30 AM EST [facility] Home [facility] / [facility] [address] [place] [phone] Carmen Hartmann 02/19/2025 4:30 PM EST [facility] Home [facility] / [facility] Visit [facility] [address] [place] [phone] Ashley Eastman 02/20/2025 8:30 AM EST P[facility] Home [facility] / [facility] Visit [facility] [address] [place] [phone] Carmen Hartmann 02/20/2025 9:00 AM EST [facility] [place] [facility] [address] [place] [address] 02/20/2025 4:30 PM EST P[facility] Home [facility] / [facility] Visit [facility] [address] [place] [phone] Ashley Eastman 02/21/2025 8:00 AM EST [facility] Home [facility] / [facility] Visit [facility] [address] [place] [address] Carmen Hartmann 02/21/2025 9:30 AM EST [facility] Home [facility] / [facility] Visit [facility] [address] [place] [phone] Ralph Loyola 02/21/2025 4:30 PM EST [facility] Home [facility] / [facility] Visit [facility] [address] [place] [phone] Ashley Eastman 02/22/2025 12:00 PM EST [facility] Home [facility] / [facility] [address] [place] [phone] Dena Chaevz 02/23/2025 12:00 PM EST [facility] Home [facility] / [facility] [address] [place] [phone] Dena Chavez 02/24/2025 8:30 AM EST [facility] Home [facility] / [facility] [address] [place] [phone] Carmen Hartmann 02/24/2025 4:30 PM EST [facility] Home [facility] / [facility] [address] [place] [phone] Ashley Eastman 02/25/2025 8:30 AM EST [facility] Home [facility] / [facility] [address] [place] [phone] Carmen Hartmann 02/25/2025 4:30 PM EST [facility] Home [facility] / [facility] Visit [facility] [address] [place] [phone] Ashley Eastman 02/26/2025 8:30 AM EST [facility] Home [facility] / [facility] [address] [place] [address] Carmen Hartmann 02/26/2025 4:30 PM EST [facility] Home [facility] / [facility] [address] [place] [address] Ashley Eastman 02/27/2025 8:30 AM EST [facility] Home [facility] / [facility] [address] [place] [address] Carmen Hartmann 02/27/2025 9:00 AM EST [facility] Att[facility] [place] [facility] [address] [place] [address] 02/27/2025 4:30 PM EST P[facility] Home [facility] / [facility] Visit [facility] [address] [place] [phone] Ashley Eastman 02/28/2025 8:00 AM EST [facility] Home [facility] / [facility] [address] [place] [phone] Carmen Hartmann 02/28/2025 9:30 AM EST [facility] Home [facility] / [facility] [address] [place] [address] Ralph Loyola 02/28/2025 4:30 PM EST P[facility] Home [facility] / [facility] Visit [facility] [address] [place] [address] Ashley Eastman 03/01/2025 8:30 AM EST P[facility] Home [facility] / [facility] Visit [facility] [address] [place] [phone] Marysol Diaz 03/01/2025 12:00 PM EST [facility] Home [facility] / [facility] Visit [facility] [address] [place] [phone] Natali Sanford 03/01/2025 5:30 PM EST [facility] Home [facility] / [facility] Visit [facility] [address] [place] [phone] Marysol Diaz 03/02/2025 8:30 AM EST [facility] Home [facility] / [facility] Visit [facility] [address] [place] [phone] Marysol Diaz 03/02/2025 12:00 PM EST [facility] Home [facility] / [facility] Visit [facility] [address] [place] [phone] Natali Sanford 03/02/2025 4:30 PM EST [facility] Home [facility] / [facility] [address] [place] [phone] Marysol Diaz 03/02/2025 5:30 PM EST [facility] Home [facility] / [facility] Visit [facility] [address] [place] [phone] Marysol Diaz 03/03/2025 8:30 AM EST [facility] Home [facility] / [facility] Visit [facility] [address] [place] [phone] Carmen Hartmann 03/03/2025 4:30 PM EST [facility] Home [facility] / [facility] Visit [facility] [address] [place] [phone] Ashley Eastman 03/04/2025 8:30 AM EST [facility] Home [facility] / [facility] Visit [facility] [address] [place] [phone] Carmen Hartmann 03/04/2025 4:30 PM EST P[facility] Home [facility] / P[facility] Home Visit [facility] [address] [place] [address] Ashley Eastman 03/05/2025 8:30 AM EST P[facility] Home Care / PACE Home Visit [facility] [address] [place] [phone] Carmen Hartmann 03/05/2025 4:30 PM EST P[facility] Home Care / PACE Home Visit [facility] [address] [place] [phone] Ashley Eastman 03/06/2025 8:30 AM EST P[facility] Home [facility] / PACE Home Visit [facility] [address] [place] [phone] Carmen Hartmann 03/06/2025 9:00 AM EST [facility] [address] [place] [address] 03/06/2025 4:30 PM EST P[facility] Home Care / PACE Home Visit [facility] [address] [place] [phone] Ashley Eastman 03/07/2025 Lab [facility] [address] [place] [phone] Clemencia Napier, ADITYA Schizophrenia in partial remission with history of multiple episodes (CMS/HCC V24, CMS/HCC V28) 03/07/2025 8:00 AM EST [facility] Home Care / PACE Home Visit [facility] [address] [place] [phone] Carmen Hartmann 03/07/2025 9:00 AM EST Clinical Support [facility] [address] [place] [address] Bethany Mccabe RN 03/07/2025 9:30 AM EST [facility] Home [facility] / [facility] [address] [place] [address] Ralph Loyola 03/07/2025 4:30 PM EST [facility] Home [facility] / [facility] Visit [facility] [address] [place] [address] Ashley Eastman 03/08/2025 12:00 PM EST P[facility] Home [facility] / [facility] Visit [facility] [address] [place] [address] Dena Chavez 03/09/2025 12:00 PM EST [facility] Home [facility] / [facility] Visit [facility] [address] [place] [phone] Dena Chavez 03/10/2025 8:30 AM EST [facility] Home [facility] / [facility] Visit [facility] [address] [place] [phone] Carmen Hartmann 03/10/2025 4:30 PM EST P[facility] Home [facility] / [facility] Visit [facility] [address] [place] [phone] Ashley Eastman 03/11/2025 8:30 AM EST [facility] Home [facility] / [facility] Visit [facility] [address] [place] [phone] Carmen Hartmann 03/11/2025 4:30 PM EST [facility] Home [facility] / [facility] [address] [place] [phone] Ashley Eastman 03/12/2025 8:30 AM EST [facility] Home [facility] / [facility] [address] [place] [phone] Carmen Hartmann 03/12/2025 4:30 PM EST P[facility] Home Care / [facility] Visit [facility] [address] [place] [address] Ashley Eastman 03/13/2025 8:30 AM EST [facility] Home [facility] / [facility] [address] [place] [address] Carmen Hartmann 03/13/2025 9:00 AM EST [facility] [facility] [address] [place] [address] 03/13/2025 4:30 PM EST PACE Home Care / [facility] [address] [place] [address] Ashley Eastman 03/14/2025 8:00 AM EST PACE Home Care / [facility] [address] [place] [phone] Carmen Hartmann 03/14/2025 9:30 AM EST PACE Home Care / [facility] [address] [place] [phone] Ralph Loyola 03/14/2025 4:30 PM EST PACE Home Care / [facility] [address] [place] [phone] Ashley Eastman 03/15/2025 8:30 AM EST PACE Home Care / [facility] [address] [place] [phone] Marysol Diaz 03/15/2025 12:00 PM EST PACE Home Care / [facility] [address] [place] [phone] Natali Sanford 03/15/2025 5:30 PM EST PACE Home Care / [facility] [address] [place] [address] Marysol Diaz 03/16/2025 8:30 AM EST PACE Home Care / [facility] [address] [place] [phone] Marysol Diaz 03/16/2025 12:00 PM EST PACE Home Care / [facility] [address] [place] [phone] Natali Sanford 03/16/2025 4:30 PM EST PACE Home Care / [facility] [address] [place] [phone] Marysol Diaz 03/16/2025 5:30 PM EST PACE Home Care / [facility] [address] [place] [phone] Marysol Diaz 03/17/2025 8:30 AM EST PACE Home Care / [facility] [address] [place] [phone] Carmen Hartmann 03/17/2025 4:30 PM EST PACE Home Care / [facility] [address] [place] [phone] Ashley Eastman 03/18/2025 8:30 AM EST PACE Home Care / [facility] [address] [place] [phone] Carmen Hartmann 03/18/2025 11:00 AM EST [facility] [address] [place] [phone] Michelle Castillo MD [address] [place] [phone] Brigette East VICKY 03/18/2025 4:30 PM EST PACE Home Care / [facility] [address] [place] [phone] Ashley Eastman 03/19/2025 8:30 AM EST PACE Home Care / [facility] [address] [place] [phone] Carmen Hartmann 03/19/2025 4:30 PM EST PACE Home [facility] / [facility] [address] [place] [phone] Ashley Eastman 03/20/2025 8:30 AM EST PACE Home Care / [facility] [address] [place] [phone] Carmen Hartmann 03/20/2025 9:00 AM EST [facility] [place] [facility] [address] [place] [phone] 03/20/2025 4:30 PM EST PACE Home Care / [facility] [address] [place] [phone] Ashley Eastman 03/21/2025 8:00 AM EST PACE Home Care / [facility] [address] [place] [phone] Carmen Hartmann 03/21/2025 9:30 AM EST PACE Home Care / [facility] [address] [place] [phone] Ralph Loyola 03/21/2025 4:30 PM EST PACE Home Care / [facility] [address] [place] [phone] Ashley Eastman 03/22/2025 12:00 PM EST PACE Home Care / [facility] [address] [place] [phone] Dena Chavez 03/23/2025 12:00 PM EST PACE Home Care / [facility] [address] [place] [phone] Dena Chavez 03/24/2025 8:30 AM EST PACE Home Care / [facility] [address] [place] [phone] Carmen Hartmann 03/24/2025 9:45 AM EST Appointment [address] [phone] Lakia Hou, [facility] [employer] 03/24/2025 4:30 PM EST PACE Home Care / [facility] [address] [place] [phone] Ashley Eastman 03/25/2025 8:30 AM EST PACE Home Care / [facility] [address] [place] [phone] Carmen Hartmann 03/25/2025 4:30 PM EST PACE Home Care / [facility] [address] [place] [phone] Ashley Eastman 03/26/2025 8:30 AM EST PACE Home Care / [facility] [address] [place] [phone] Carmen Hartmann 03/26/2025 4:30 PM EST PACE Home Care / [facility] [address] [place] [phone] Ashley Eastman 03/27/2025 8:30 AM EST PACE Home Care / [facility] [address] [place] [address] Carmen Hartmann 03/27/2025 9:00 AM EST [facility] Att[facility] [place] [facility] [address] [place] [address] 03/27/2025 2:40 PM EST [facility] Support [facility] [address] [place] [address] 03/27/2025 4:30 PM EST PACE Home Care / [facility] [address] [place] [address] Ashley Eastman 03/28/2025 8:00 AM EST PACE Home Care / [facility] [address] [place] [address] Carmen Hartmann 03/28/2025 10:00 AM EST [facility] [address] [place] [address] Bethany Mccabe RN 03/28/2025 4:30 PM EST PACE Home Care / [facility] [address] [place] [phone] Ashley Eastman 03/29/2025 8:30 AM EST PACE Home Care / [facility] [address] [place] [address] Marysol Diaz 03/29/2025 12:00 PM EST PACE Home [facility] / [facility] [address] [place] [phone] Natali Sanford 03/29/2025 5:30 PM EST PACE Home Care / [facility] [address] [place] [address] Marysol Diaz 03/30/2025 8:30 AM EST PACE Home Care / [facility] [address] [place] [address] Marysol Diaz 03/30/2025 12:00 PM EST PACE Home Care / [facility] [address] [place] [address] Natali Sanford 03/30/2025 4:30 PM EST PACE Home Care / [facility] [address] [place] [phone] Marysol Diaz 03/30/2025 5:30 PM EST PACE Home Care / [facility] [address] [place] [phone] Marysol Diaz 03/31/2025 8:30 AM EST PACE Home Care / [facility] [address] [place] [phone] Carmen Hartmann 03/31/2025 4:30 PM EST PACE Home [facility] / [facility] [address] [place] [phone] Ashley Eastman 04/01/2025 8:30 AM EST PACE Home Care / [facility] [address] [place] [address] Carmen Hartmann 04/01/2025 1:15 PM EST [facility] [address] [place] [address] 04/01/2025 4:30 PM EST PACE Home Care / [facility] [address] [place] [address] Ashley Eastman 04/02/2025 8:30 AM EST PACE Home [facility] / [facility] [address] [place] [address] Carmen Hartmann 04/02/2025 4:30 PM EST PACE Home Care / [facility] [address] [place] [address] Ashley Eastman 04/03/2025 8:30 AM EST PACE Home [facility] / [facility] [address] [place] [address] Carmen Hartmann 04/03/2025 9:00 AM EST [facility] [place] [facility] [address] [place] [address] 04/03/2025 4:30 PM EST PACE Home Care / [facility] [address] [place] [address] Ashley Eastman 04/04/2025 8:00 AM EST PACE Home [facility] / [facility] [address] [place] [address] Carmen Hartmann 04/04/2025 9:30 AM EST PACE Home Care / [facility] [address] [place] [address] Ralph Loyola 04/04/2025 4:30 PM EST PACE Home [facility] / [facility] [address] [place] [address] Ashley Eastman 04/05/2025 12:00 PM EST PACE Home [facility] / [facility] [address] [place] [phone] Dena Chavez 04/06/2025 12:00 PM EST PACE Home [facility] / [facility] [address] [place] [address] Dena Chavez 2025 8:30 AM EST P[facility] Home [facility] / [facility] [address] [place] [address] Carmen Hartmann 2025 4:30 PM EST PACE Home [facility] / [facility] [address] [place] [address] Ashley Eastman 04/08/2025 8:30 AM EST PACE Home Care / [facility] [address] [place] [address] Carmen Hartmann 04/08/2025 4:30 PM EST PACE Home Care / [facility] [address] [place] [address] Ashley Eastman 04/09/2025 8:30 AM EST PACE Home Care / [facility] [address] [place] [address] Carmen Hartmann 04/09/2025 4:30 PM EST PACE Home Care / [facility] [address] [place] [phone] Ashley Eastman 04/10/2025 8:30 AM EST PACE Home Care / [facility] [address] [place] [phone] Carmen Hartmann 04/10/2025 9:00 AM EST [facility] [place] [facility] [address] [place] [address] 04/10/2025 4:30 PM EST PACE Home Care / [facility] [address] [place] [address] Ashley Eastman 04/11/2025 8:00 AM EST PACE Home Care / [facility] [address] [place] [address] Carmen Hartmann 04/11/2025 9:30 AM EST PACE Home Care / [facility] [address] [place] [phone] Ralph Loyola 04/11/2025 4:30 PM EST PACE Home Care / [facility] [address] [place] [phone] Ashley Eastman 04/12/2025 8:30 AM EST PACE Home [facility] / [facility] [address] [place] [phone] Marysol Diaz 04/12/2025 12:00 PM EST PACE Home Care / [facility] [address] [place] [phone] Natali Sanford 04/12/2025 5:30 PM EST PACE Home Care / [facility] [address] [place] [phone] Marysol Diaz 04/15/2025 11:00 AM EST [facility] Visit [facility] [place] [facility] [address] [place] [phone] Michelle Castillo MD [address] [place] [address] Brigette East LPN 04/17/2025 9:00 AM EST [facility] [place] [facility] [address] [place] [address] 04/18/2025 10:00 AM EST [facility] [place] [facility] [address] [place] [address] Bethany Mccabe RN 04/24/2025 9:00 AM EST [facility] [place] [facility] [address] [place] [phone] 04/24/2025 11:30 AM EST [facility] [place] [address] [place] [address] 05/01/2025 9:00 AM EST PACE Attendance/Day Center [facility] [place] [facility] [address] [address] 05/08/2025 9:00 AM EST [facility] [place] [facility] [address] [address] 05/09/2025 10:00 AM EST [facility] [place] [facility] [address] [address] Bethany Mccabe RN 05/13/2025 11:00 AM EST Office Visit [facility] [place] [facility] [address] [phone] Michelle Castillo MD [address] [place] [address] Brigette East LPN 05/15/2025 9:00 AM EST [facility] [place] [facility] [address] [address] 05/22/2025 9:00 AM EST [facility] [place] [facility] [address] [address] 05/29/2025 9:00 AM EST [facility] [place] [facility] [address] [place] [phone] 05/30/2025 10:00 AM EST Clinical Support [facility] [address] [phone] Bethany Mccabe RN 06/05/2025 9:00 AM EST PACE Attendance/Day Center [facility] Day [address] [address] 06/10/2025 11:00 AM EST Office Visit [address] [phone] Michelle Castillo MD [address] [place] [address] Brigette East LPN 06/12/2025 9:00 AM EST PACE Attendance/Day Center [facility] Day [address] [address] 06/19/2025 9:00 AM EST PACE Attendance/Day Center [facility] Day [address] [address] 06/20/2025 10:00 AM EST Clinical Support [address] [address] Bethany Mccabe RN 06/26/2025 9:00 AM EDT PACE Attendance/Day Center [facility] Day [address] [address] 06/27/2025 1:20 PM EDT Office Visit Gastroenterology - [facility] [address] [facility] [facility] [address] [place] [phone] Analisa Perez, ALONSO [address] [place] [address] 07/03/2025 9:00 AM EDT PACE Attendance/Day Center [facility] Day [address] [address] 07/10/2025 9:00 AM EDT PACE Attendance/Day Center [facility] Day [address] [address] 07/11/2025 10:00 AM EDT Clinical Support [facility] [place] [facility] [address] [address] Bethany Mccabe RN 07/17/2025 9:00 AM EDT [facility] Attendance[facility] [place] [facility] [address] [place] [phone] 07/17/2025 3:30 PM EDT PACE External Visit [facility] [address] [address] 07/24/2025 9:00 AM EDT PACE Attendance/[place] [facility] [place] [facility] [address] [address] 07/31/2025 9:00 AM EDT [facility] [place] [facility] [address] [place] [phone] 08/01/2025 10:00 AM EDT Clinical Support [facility] [place] [facility] [address] [address] Bethany Mccabe RN 08/07/2025 9:00 AM EDT PACE Attendance/[facility] [place] [facility] [place] [facility] [address] [address] 08/14/2025 9:00 AM EDT [facility] Att[facility]ance[facility] [facility] [place] [facility] [address] [place] [phone] 08/21/2025 9:00 AM EDT [facility] [facility] [place] [facility] [address] [place] [phone] 08/22/2025 10:00 AM EDT Clinical Support [facility] [place] [facility] [address] [place] [phone] Bethany Mccabe, RN 08/28/2025 9:00 AM EDT [facility] Attendance[facility] [facility] [place] [facility] [address] [address] 09/04/2025 9:00 AM EDT [facility] Attendance[facility] [place] [facility] [address] [place] [phone] 09/11/2025 9:00 AM EDT P[facility] Attendance/[facility] [place] [facility] [address] [place] [phone] 09/12/2025 10:00 AM EDT Clinical Support [facility] [place] [facility] [address] [place] [phone] Bethany Mccabe RN 09/18/2025 9:00 AM EDT [facility] [place] [facility] [address] [place] [phone] 09/25/2025 9:00 AM EDT [facility] [place] [facility] [address] [place] [phone] 10/02/2025 9:00 AM EDT [facility] [place] [facility] [address] [place] [phone] 10/03/2025 10:00 AM EDT Clinical Support [facility] [place] [facility] [address] [place] [phone] Bethany Mccabe RN 10/09/2025 9:00 AM EDT [facility] [place] [facility] [address] [place] [phone] 10/24/2025 10:00 AM EDT [facility] Support [facility] [place] [facility] [address] [place] [phone] Bethany Mccabe RN 11/14/2025 10:00 AM EDT Clinical Support [facility] [place] [facility] [address] [place] [phone] Bethany Mccabe RN 12/05/2025 10:00 AM EDT Clinical Support [facility] [place] [facility] [address] [place] [phone] Bethany Mccabe RN 12/26/2025 10:00 AM EDT Clinical Support [facility] [address] [place] [address] Bethany Mccabe RN 01/16/2026 10:00 AM EDT [facility] [address] [place] [address] Bethany Mccabe RN 02/06/2026 10:00 AM EDT [facility] [address] [place] [address] Bethany Mccabe RN 02/27/2026 10:00 AM EST Clinical Support [facility] [address] [place] [address] Bethany Mccabe RN Health Maintenance Due Date Last Done Comments Diabetes: Annual Foot Exam 1969 Diabetes: Annual Retina Eye Exam 1969 DTaP,Tdap,and Td Vaccines (1 - Tdap) 1978 Cervical Cancer Screening: Pap Smear 1980 RSV Immunization Adult Patients (1 - Risk 50-74 years 1-dose series) 2009 Hepatitis C Screening 03/15/2022 Osteoporosis Screening (Bone Density Screening) 03/15/2022 Zoster Vaccines (2 of 2) 12/14/2022 10/19/2022, 07/0 08/2022 Pneumococcal Vaccine: 50+ Years (2 of 2 - PCV) 10/20/2023 10/19/2022 Depression Screening 04/17/2024 Diabetes: Annual Urine Albumin-Creatinine Ratio (uACR) 04/30/2024 COVID-19 Vaccine ( season) 2024 01/25/2024, 03/29/2023, 10/19/2022, Additional history exists Influenza Vaccine (#1) 2024 01/18/2024 Diabetes: Blood Sugar Control Test (HGBA1C) 03/06/2025 09/03/2024, 10/11/2023 Breast Cancer Screening 05/11/2025 05/11/2023 Diabetes: Annual GFR (Glomerular Filtration Rate) 02/09/2026 02/09/2025, 02/04/2025, 02/03/2025, Additional history exists Falls Risk Assessment 02/09/2026 02/09/2025 Hypertension/CHF/CAD Annual BMP Blood Test 02/09/2026 02/09/2025, 02/04/2025, 02/03/2025, Additional history exists Social Influencers of Health Screening 02/10/2026 02/10/2025 Colorectal Cancer Screening: Colonoscopy 05/22/2029 05/22/2024 Cholesterol Screening (Lipid Panel) 02/04/2030 02/04/2025, 02/03/2025, 04/24/2023 HIB Vaccines Aged Out No longer eligi ble based on patient's age to complete this topic HPV Vaccines Aged Out No longer eligi ble based on patient's age to complete this topic Hepatitis A Vaccines Aged Out No long er eligible based on patient's age to complete this topic Hepatitis B Vaccines Aged Out No long er eligible based on patient's age to complete this topic IPV Vaccines Aged Out No longer eligi ble based on patient's age to complete this topic MMR Vaccines Aged Out No longer eligi ble based on patient's age to complete this topic Meningococcal ACWY Vaccine Aged Out N o longer eligible based on patient's age to complete this topic Meningococcal B Vaccine Aged Out No l onger eligible based on patient's age to complete this topic RSV Immunization Patients Under 20 months Aged Out No longer eligible based on patient's age to complete this topic Varicella Vaccines Aged Out No longer eligible based on patient's age to complete this topic Procedures Procedure Name Priority Date/Time Associated Diagnosis Comments ECG 12-LEAD STAT 02/11/2025 10:37 AM EDT METHADONE SCREEN, URINE STAT 02/09/2025 4:32 PM EDT PHENCYCLIDINE, URINE STAT 02/09/2025 4:32 PM EDT BUPRENORPHINE SCREEN, URINE STAT 02/09/2025 4:32 PM EDT DRUG ABUSE SCREEN 8A PANEL, URINE STAT 02/09/2025 4:32 PM EDT URINALYSIS WITH REFLEX MICROSCOPIC STAT 02/09/2025 2:54 PM EDT URINALYSIS WITH REFLEX MICROSCOPIC STAT 02/09/2025 2:54 PM EDT CBC WITH AUTO DIFFERENTIAL STAT 02/09/2025 2:53 PM EDT SALICYLATE LEVEL STAT 02/09/2025 2:53 PM EDT ACETAMINOPHEN LEVEL STAT 02/09/2025 2 :53 PM EDT ETHANOL STAT 02/09/2025 2:53 PM EDT COMPREHENSIVE METABOLIC PANEL STAT 02/09/2025 2:53 PM EDT CBC AND DIFFERENTIAL STAT 02/09/2025 2:53 PM EDT ECG ANNOTATED 02/06/2025 POCT GLUCOSE BLOOD Routine 02/05/2025 3: 58 PM EDT POCT GLUCOSE BLOOD Routine 02/05/2025 11 :54 AM EDT MR BRAIN WO CONTRAST Routine 02/05/2025 11:29 AM EDT VAS US DUPLEX CAROTID BILATERAL Routine 02/05/2025 9:09 AM EDT TIA (transient ischemic attack) POCT GLUCOSE BLOOD Routine 02/05/2025 7: 31 AM EDT POCT GLUCOSE BLOOD Routine 02/04/2025 10 :15 PM EDT POCT GLUCOSE BLOOD Routine 02/04/2025 4: 17 PM EDT POCT GLUCOSE BLOOD Routine 02/04/2025 11 :57 AM EDT EEG MONITORING EXTENDED 41-60 MINUTES STAT 02/04/2025 9:31 AM EDT Breakthrough seizure (CMS/HCC V24, CMS/HCC V28) POCT GLUCOSE BLOOD Routine 02/04/2025 8: 00 AM EDT VAS US DUPLEX LOWER EXT VENOUS LEFT Routine 02/04/2025 6:59 AM EDT Localized swelling of left lower extremity LIPID PANEL WITH REFLEX TO DIRECT LDL Add-On 02/04/2025 6:42 AM EDT CBC WITH AUTO DIFFERENTIAL Routine 02/04/2025 6:42 AM EDT CBC AND DIFFERENTIAL Routine 02/04/2025 6:42 AM EDT BASIC METABOLIC PANEL Routine 02/04/2025 6:42 AM EDT ECG 12-LEAD STAT 02/03/2025 5:08 PM EDT DRUG ABUSE SCREEN 8A PANEL, URINE STAT 02/03/2025 4:41 PM EDT LIPID PANEL WITH REFLEX TO DIRECT LDL Add-On 02/03/2025 3:26 PM EDT PROLACTIN Add-On 02/03/2025 3:26 PM EDT VALPROIC ACID LEVEL, TOTAL Add-On 02/03/2025 3:26 PM EDT CBC WITH AUTO DIFFERENTIAL STAT 02/03/2025 3:26 PM EDT ETHANOL STAT 02/03/2025 3:26 PM EDT SALICYLATE LEVEL STAT 02/03/2025 3:26 PM EDT ACETAMINOPHEN LEVEL STAT 02/03/2025 3 :26 PM EDT LIPASE STAT 02/03/2025 3:26 PM EDT COMPREHENSIVE METABOLIC PANEL STAT 02/03/2025 3:26 PM EDT CBC AND DIFFERENTIAL STAT 02/03/2025 3:[address] HEAD WO CONTRAST STAT 02/03/2025 3 :14 PM EDT LEVETIRACETAM LEVEL Routine 02/03/2025 1 :16 PM EDT Nonintractable epilepsy without status epilepticus, unspecified epilepsy type (CMS/HCC V24, CMS/HCC V28) Tremor HEMOGLOBIN A1C Routine 09/03/2024 11:03 AM EDT Type 2 diabetes mellitus with stage 3a chronic kidney disease, without long-term current use of insulin (CMS/HCC V24, CMS/HCC V28) COLONOSCOPY Routine 05/22/2024 12:42 PM EST Colon cancer screening QIANA SCREENING DIGITAL Routine 05/11/2023 4:13 PM EST Encounter for screening mammogram for malignant neoplasm of breast from Last 3 Months or Most Recently Relevant to Health Maintenance Results * ECG 12 lead (02/11/2025 10:37 AM EDT) Only the most recent of2 resultswithin the time period is included. Ventricular Rate ECG 62 BPM GEMUSE Atrial Rate 62 BPM GEMUSE P-R Interval 156 ms GEMUSE QRS Duration 84 ms GEMUSE Q-T Interval 424 ms GEMUSE QTc 430 ms GEMUSE P Wave [place] 58 degrees GEMUSE R [place] 42 degrees GEMUSE T [place] 53 degrees GEMUSE ECG Interpretation Normal sinus rhythm Normal ECG When compared with ECG of 03-FEB-2025 17:08, No significant change was found Confirmed by MD EDUARDA, DAPHNE ([id number]) on 02/11/2025 7:11:34 PM GEMUSE 02/11/2025 10:3 7 AM EDT 02/11/2025 7:11 PM EDT us Sd Raman MD ECG ORDERABLES Final Result GEMUSE * Drug abuse screen 8a panel, urine (02/09/2025 4:32 PM EDT) Only the most recent of2 resultswithin the time period is included. Amphetamine Screen, Ur Negative Negative LAB CHEMISTRY METHOD 02/09/2025 5:36 PM EDT [facility] Comment:Certain OTC medicati ons containing ephedrine, phenylephrine, pseudoephedrine and phenylpropanolamine can cause false positive results. Barbiturate Screen, Ur Negative Negative LAB CHEMISTRY METHOD 02/09/2025 5:36 PM EDT [facility] Benzodiazepine Screen, Ur Negative Negative LAB CHEMISTRY METHOD 02/09/2025 5:36 PM EDT [facility] Cocaine Screen, Ur Negative Negative LAB CHEMISTRY METHOD 02/09/2025 5:36 PM EDT [facility] Opiate Screen, Ur Negative Negative LAB CHEMISTRY METHOD 02/09/2025 5:36 PM EDT [facility] Cannabinoid (THC) Screen, Ur Negative Negative LAB CHEMISTRY METHOD 02/09/2025 5:36 PM EDT [facility] Comment:Specimens from patie nts taking pantoprazole sodium (Protonix) have been shown to produce false positive results. Oxycodone Screen, Ur Negative Negative LAB CHEMISTRY METHOD 02/09/2025 5:36 PM EDT [facility] Fentanyl, Ur Negative Negative LAB CHEMISTRY METHOD 02/09/2025 5:36 PM EDT [facility] Urine Urine specimen obtained by clean catch procedure / Unknown Non-blood Collection / Unknown 02/09/2025 4:32 PM EDT 02/09/2025 5:06 PM EDT Narrative [facility] - 02/09/2025 5:36 PM EDT Assay cutoffs: Amphetamines 1000 ng/mL Barbiturates 200 ng/mL Benzodiazepines 200 ng/mL Cocaine 300 ng/mL Fentanyl 1 ng/mL Opiates 300 ng/mL Oxycodone 100 ng/mL THC 50 ng/mL Semi-quantitative assay for screening purposes only. Unconfirmed screening result should not be used for non-medical purposes. *ALTERNATE METHOD CONFIRMATION DONE UPON REQUEST ONLY* Sd Raman MD LAB URINE ORDERABLES Final Resu lt Performing Organization Address [facility] de Phone Number [facility] [address] [place] [address], [place] [phone] * Buprenorphine screen, urine (02/09/2025 4:32 PM EDT) Buprenorphine Screen Urine Negative Negative LAB CHEMISTRY METHOD 02/09/2025 5:36 PM EDT [facility] Urine Urine specimen obtained by clean catch procedure / Unknown Non-blood Collection / Unknown 02/09/2025 4:32 PM EDT 02/09/2025 5:06 PM EDT Narrative [facility] - 02/09/2025 5:36 PM EDT Assay cutoff 5 ng/mL Semi-quantitative assay for screening purposes only. Unconfirmed screening result should not be used for non-medical purposes. *ALTERNATE METHOD CONFIRMATION DONE UPON REQUEST ONLY* Sd Raman MD LAB URINE ORDERABLES Final Resu lt Performing Organization Address [facility] de Phone Number [facility] [address] [place] [address], [place] [phone] * Methadone, urine (02/09/2025 4:32 PM EDT) Methadone Screen, Urine Negative Negative LAB CHEMISTRY METHOD 02/09/2025 5:36 PM EDT [facility] Comment: Assay cutoff 300 [...] ORDERABLES Final Resu lt Performing Organization Address [facility] de Phone Number [facility] [address] [place] [address], [place] [phone] * Phencyclidine, urine (02/09/2025 4:32 PM EDT) [facility] PCP Scrn, Ur Negative Negative LAB CHEMISTRY METHOD 02/09/2025 5:36 PM EDT [facility] Comment: Assay cutoff 25 ng/mL Semi-quantitative assay for screening purposes only. Unconfirmed screening result should not be used for non-medical purposes. *ALTERNATE METHOD CONFIRMATION DONE UPON REQUEST ONLY* Urine Urine specimen obtained by clean catch procedure / Unknown Non-blood Collection / Unknown 02/09/2025 4:32 PM EDT 02/09/2025 5:06 PM EDT us Sd Raman MD LAB URINE ORDERABLES Final Resu lt Performing Organization Address [facility] de Phone Number [facility] [address] [place] [address], [place] [phone] * (ABNORMAL) Urinalysis with reflex microscopic (02/09/2025 2:54 PM EDT) [facility] Specific [place] Urine 1.018 1.003 - 1.030 LAB URINALYSIS - AUTOMATED METHOD 02/09/2025 3:20 PM EDT [facility] pH, Urine 6.0 5.0 - 8.0 pH LAB URINALYSIS - AUTOMATED METHOD 02/09/2025 3:20 PM EDT [facility] Leukocytes, Urine Large(A) Negative LAB URINALYSIS - AUTOMATED METHOD 02/09/2025 3:20 PM EDT [facility] Nitrite, Urine Negative Negative LAB URINALYSIS - AUTOMATED METHOD 02/09/2025 3:20 PM [facility] Protein, Urine Trace <=Trace mg/dL LAB URINALYSIS - AUTOMATED METHOD 02/09/2025 3:20 PM [facility] Glucose, Urine Negative Negative mg/dL LAB URINALYSIS - AUTOMATED METHOD 02/09/2025 3:20 PM [facility] Ketones, Urine Negative Negative mg/dL LAB URINALYSIS - AUTOMATED METHOD 02/09/2025 3:20 PM [facility] Urobilinogen, Urine 0.2 0.2 - 1.0 mg/dL LAB URINALYSIS - AUTOMATED METHOD 02/09/2025 3:20 PM [facility] Bilirubin, Urine Negative Negative LAB URINALYSIS - AUTOMATED METHOD 02/09/2025 3:20 PM [facility] Blood, Urine Negative Negative LAB URINALYSIS - AUTOMATED METHOD 02/09/2025 3:20 PM [facility] RBC, Urine 2.7 0 - 4 /HPF LAB URINALYSIS - AUTOMATED METHOD 02/09/2025 3:20 PM [facility] WBC, Urine 70.3(H) 0 - 4 /HPF LAB URINALYSIS - AUTOMATED METHOD 02/09/2025 3:20 PM [facility] Squamous Epithelial, Urine 31 0 - 60 /LPF LAB URINALYSIS - AUTOMATED METHOD 02/09/2025 3:20 PM [facility] Bacteria, Urine Negative Negative /HPF LAB URINALYSIS - AUTOMATED METHOD 02/09/2025 3:20 PM [facility] Hyaline Casts, Urine 1.2 0 - 3 /LPF LAB URINALYSIS - AUTOMATED METHOD 02/09/2025 3:20 PM [facility] Urine Urine specimen obtained by clean catch procedure / Unknown Non-blood Collection / Unknown 02/09/2025 2:54 PM EDT 02/09/2025 3:11 PM EDT us Sd Raman MD LAB URINE ORDERABLES Final Resu lt [facility] [address] [place] [address], [place] [phone] * (ABNORMAL) CBC auto differential (02/09/2025 2:53 PM EDT) Only the most recent of3 resultswithin the time period is included. WBC 9.2 4.8 - 10.8 K/mcL LAB HEMETOLOGY METHOD 02/09/2025 3:17 PM EDT [facility] RBC 3.90 3.80 - 4.80 M/mcL LAB HEMETOLOGY METHOD 02/09/2025 3:17 PM EDT [facility] Hemoglobin 11.8 11.5 - 16.0 g/dL LAB HEMETOLOGY METHOD 02/09/2025 3:17 PM EDT [facility] Hematocrit 36.5 35.0 - 47.0 % LAB HEMETOLOGY METHOD 02/09/2025 3:17 PM EDT [facility] MCV 94.8 79.0 - 98.0 FL LAB HEMETOLOGY METHOD 02/09/2025 3:17 PM EDT [facility] MCH 30.6 27.0 - 32.0 pcg LAB HEMETOLOGY METHOD 02/09/2025 3:17 PM EDT [facility] MCHC 32.3 32.0 - 37.0 g/dL LAB HEMETOLOGY METHOD 02/09/2025 3:17 PM EDT [facility] RDW 13.0 11.0 - 15.0 % LAB HEMETOLOGY METHOD 02/09/2025 3:17 PM EDT [facility] Platelets 226 130 - 400 K/mcL LAB HEMETOLOGY METHOD 02/09/2025 3:17 PM EDT [facility] MPV 8.9 7.0 - 11.0 FL LAB HEMETOLOGY METHOD 02/09/2025 3:17 PM EDT [facility] NRBC 0.0 <1.0 % LAB HEMETOLOGY METHOD 02/09/2025 3:17 PM [facility] NRBC Absolute 0.00 <0.10 K/[facility] LAB HEMETOLOGY METHOD 02/09/2025 3:17 PM EDT [facility] Neutrophils Relative 48.3 % LAB HEMETOLOGY METHOD 02/09/2025 3:17 PM T [facility] Lymphocytes Relative 32.9 % LAB HEMETOLOGY METHOD 02/09/2025 3:17 PM [facility] Monocytes Relative 8.1 % LAB HEMETOLOGY METHOD 02/09/2025 3:17 PM [facility] Eosinophils Relative 9.1 % LAB HEMETOLOGY METHOD 02/09/2025 3:17 PM [facility] Basophils Relative 0.8 % LAB HEMETOLOGY METHOD 02/09/2025 3:17 PM [facility] Immature Granulocytes Relative 0.8 % LAB HEMETOLOGY METHOD 02/09/2025 3:17 PM [facility] Neutrophils Absolute 4.44 1.50 - 7.00 K/mcL LAB HEMETOLOGY METHOD 02/09/2025 3:17 PM EDT [facility] Lymphocytes Absolute 3.02 1.00 - 5.00 K/mcL LAB HEMETOLOGY METHOD 02/09/2025 3:17 PM [facility] Monocytes Absolute 0.74 0.20 - 1.00 K/mcL LAB HEMETOLOGY METHOD 02/09/2025 3:17 PM [facility] Eosinophils Absolute 0.83(H) 0.00 - 0.50 K/mcL LAB HEMETOLOGY METHOD 02/09/2025 3:17 PM EDT [facility] Basophils Absolute 0.07 0.00 - 0.20 K/[facility] LAB HEMETOLOGY METHOD 02/09/2025 3:17 PM EDT [facility] Immature Granulocytes Absolute 0.07(H) 0.00 - 0.03 K/[facility] LAB HEMETOLOGY METHOD 02/09/2025 3:17 PM EDT [facility] Blood Venous blood specimen / Unknown Venipuncture / Unknown 02/09/2025 2:53 PM EDT 02/09/2025 3:11 PM EDT us Sd Raman MD LAB BLOOD ORDERABLES Final Resu lt Performing Organization Address [facility]/ZIP Co de Phone Number [facility] [address] [place] [address], [place] [phone] * Ethanol (02/09/2025 2:53 PM EDT) Only the most recent of2 resultswithin the time period is included. Ethanol Level <3 0 - 10 mg/dL LAB CHEMISTRY METHOD 02/09/2025 3:43 PM EDT [facility] Blood Venous blood specimen / Unknown Venipuncture / Unknown 02/09/2025 2:53 PM EDT 02/09/2025 3:11 PM EDT us Sd Raman MD LAB BLOOD ORDERABLES Final Resu lt Performing Organization Address [facility]/ZIP Co de Phone Number [facility] [address] [place] [address], [place] [phone] * (ABNORMAL) Acetaminophen level (02/09/2025 2:53 PM EDT) Only the most recent of2 resultswithin the time period is included. Acetaminophen Level 6.9(L) 10.0 - 30.0 mcg/mL LAB CHEMISTRY METHOD 02/09/2025 3:44 PM EDT [facility] Blood Venous blood specimen / Unknown Venipuncture / Unknown 02/09/2025 2:53 PM EDT 02/09/2025 3:11 PM EDT us Sd Raman MD LAB BLOOD ORDERABLES Final Resu lt Performing Organization Address [facility] de Phone Number [facility] [address] [place] [address], [place] [phone] * (ABNORMAL) Salicylate level (02/09/2025 2:53 PM EDT) Only the most recent of2 resultswithin the time period is included. Salicylate Level <1.7(L) 2.0 - 29.0 mg/dL LAB CHEMISTRY METHOD 02/09/2025 3:43 PM EDT [facility] Blood Venous blood specimen / Unknown Venipuncture / Unknown 02/09/2025 2:53 PM EDT 02/09/2025 3:11 PM EDT us Sd Raman MD LAB BLOOD ORDERABLES Final Resu lt Performing Organization Address [facility] de Phone Number [facility] [address] [place] [address], [place] [phone] * (ABNORMAL) Comprehensive metabolic panel (02/09/2025 2:53 PM EDT) Only the most recent of2 resultswithin the time period is included. Sodium 138 133 - 145 mmol/L LAB CHEMISTRY METHOD 02/09/2025 3:43 PM EDT [facility] Potassium 4.4 3.5 - 5.5 mmol/L LAB CHEMISTRY METHOD 02/09/2025 3:43 PM EDT [facility] Chloride 107 96 - 110 mmol/L LAB CHEMISTRY METHOD 02/09/2025 3:43 PM [facility] CO2 27 21 - 32 mmol/L LAB CHEMISTRY METHOD 02/09/2025 3:43 PM [facility] Anion Gap 4 3 - 11 LAB CHEMISTRY METHOD 02/09/2025 3:43 PM [facility] Glucose 111(H) 70 - 100 mg/dL LAB CHEMISTRY METHOD 02/09/2025 3:43 PM [facility] BUN 18 5 - 25 mg/dL LAB CHEMISTRY METHOD 02/09/2025 3:43 PM [facility] Creatinine 0.94 0.50 - 1.10 mg/dL LAB CHEMISTRY METHOD 02/09/2025 3:43 PM [facility] eGFR 67 >=60 mL/min/1. 73m2 LAB CHEMISTRY METHOD 02/09/2025 3:43 PM [facility] Comment:Calculation based on the Chronic Kidney Disease Epidemiology Collaboration (CKD-EPI) equation refit without adjustment for race. BUN/Creatinine Ratio 19.1 LAB CHEMISTRY METHOD 02/09/2025 3:43 PM [facility] Calcium 8.5 8.5 - 10.5 mg/dL LAB CHEMISTRY METHOD 02/09/2025 3:43 PM [facility] AST (SGOT) 22 10 - 42 unit/L LAB CHEMISTRY METHOD 02/09/2025 3:43 PM [facility] ALT (SGPT) 44 10 - 60 unit/L LAB CHEMISTRY METHOD 02/09/2025 3:43 PM [facility] Alkaline Phosphatase 75 42 - 121 unit/L LAB CHEMISTRY METHOD 02/09/2025 3:43 PM [facility] Total Protein 6.3 6.0 - 8.0 g/dL LAB CHEMISTRY METHOD 02/09/2025 3:43 PM [facility] Albumin 3.5 3.2 - 5.0 g/dL LAB CHEMISTRY METHOD 02/09/2025 3:43 PM EDT [facility] Total Bilirubin 0.2 0.0 - 1.4 mg/dL LAB CHEMISTRY METHOD 02/09/2025 3:43 PM EDT [facility] Blood Venous blood specimen / Unknown Venipuncture / Unknown 02/09/2025 2:53 PM EDT 02/09/2025 3:11 PM EDT Sd Raman MD LAB BLOOD ORDERABLES Final Resu lt [facility] [address] [place] [address], [place] [phone] * ECG-Annotated (02/06/2025) us Provider Onbase MD ECG ORDERABLES Final Result * (ABNORMAL) POCT Glucose, blood (02/05/2025 3:58 PM EDT) Only the most recent of7 resultswithin the time period is included. [facility] Signature Glucose POCT 112(H) 70 - 100 mg/dL 02/05/2025 3:59 PM EDT [facility] Blood Capillary blood specimen / Unknown 02/05/2025 3:58 PM EDT 02/05/2025 4:00 PM EDT Ruel Aguirre MD LAB POINT OF C ARE TEST DOCKED DEVICE UNSOLICITED RESULTS Final Result [facility] [address] [place] [address], [place] [phone] * MR Brain wo Contrast (02/05/2025 11:29 AM EDT) Anatomical Region Laterality Modality Head and Neck Magnetic Resonan ce 02/05/2025 11:4 4 AM EDT Addenda Addendum by Haim Kaur MD on 02/05/2025 12:39 PM EDT There is an error in the body of the original report. The sentence no hydrocephalus should be removed. The report should read as follows: PROCEDURE: Noncontrast MRI of the brain. HISTORY: Seizures. COMPARISON: Head CT 02/03/2025. TECHNIQUE: Multiplanar multisequence MRI of the brain without intravenous contrast administration. FINDINGS: This study is mildly limited by patient motion. BRAIN: No diffusion abnormality. No mass or extra-axial fluid collection. The major intracranial flow voids are preserved. There is stable dilatation of the lateral and 3rd ventricles. Dedicated coronal images through the hippocampi demonstrate no evidence of mesial temporal sclerosis. ORBITS: Normal. SINUSES/MASTOIDS: Minimal mucosal thickening in the ethmoid air cells. Trace right mastoid fluid. CALVARIUM: Normal. OTHER: The visualized skull base soft tissues are normal. IMPRESSION: 1. Limited study secondary to patient motion. 2. Stable dilatation of the lateral and 3rd ventricles. 3. No seizure focus is evident. -------- ADDENDUM -------- Dictated By: Haim Kaur Dictated Date: 02/05/2025 12:38 ET Assigned Physician: Haim Kaur Reviewed and Electronically Signed By: Haim Kaur Signed Date: 02/05/2025 12:39 ET Workstation ID: [id number] Transcribed By: Self Edit Transcribed Date: 02/05/2025 12:38 ET Impressions 02/05/2025 11:46 AM EDT 1. Limited study secondary to patient motion. 2. Stable dilatation of the lateral and 3rd ventricles. 3. No seizure focus is evident. -------- FINAL REPORT -------- Dictated By: Haim Kaur Dictated Date: 02/05/2025 11:44 ET Assigned Physician: Haim Kaur Reviewed and Electronically Signed By: Haim Kaur Signed Date: 02/05/2025 11:46 ET Workstation ID: [id number] Transcribed By: Self Edit Transcribed Date: 02/05/2025 11:44 ET Narrative 02/05/2025 11:46 AM EDT PROCEDURE: Noncontrast MRI of the brain. HISTORY: Seizures. COMPARISON: Head CT 02/03/2025. TECHNIQUE: Multiplanar multisequence MRI of the brain without intravenous contrast administration. FINDINGS: This study is mildly limited by patient motion. BRAIN: No diffusion abnormality. No mass or extra-axial fluid collection. No hydrocephalus. The major intracranial flow voids are preserved. There is stable dilatation of the lateral and 3rd ventricles. Dedicated coronal images through the hippocampi demonstrate no evidence of mesial temporal sclerosis. ORBITS: Normal. SINUSES/MASTOIDS: Minimal mucosal thickening in the ethmoid air cells. Trace right mastoid fluid. CALVARIUM: Normal. OTHER: The visualized skull base soft tissues are normal. Procedure Note Haim Kaur MD - 02/05/2025 PROCEDURE: Noncontrast MRI of the brain. HISTORY: Seizures. COMPARISON: Head CT 02/03/2025. TECHNIQUE: Multiplanar multisequence MRI of the brain without intravenouscontrast administration. FINDINGS: This study is mildly limited by patient motion. BRAIN: No diffusion abnormality. No mass or extra-axial fluid collection.No hydrocephalus. The major intracranial flow voids are preserved.There is stable dilatation of the lateral and 3rd ventricles. Dedicatedcoronal images through the hippocampi demonstrate no evidence of mesialtemporal sclerosis. ORBITS: Normal. SINUSES/MASTOIDS: Minimal mucosal thickening in the ethmoid air cells.Trace right mastoid fluid. CALVARIUM: Normal. OTHER: The visualized skull base soft tissues are normal. IMPRESSION: 1. Limited study secondary to patient motion. 2. Stable dilatation of the lateral and 3rd ventricles. 3. No seizure focus is evident. -------- FINAL REPORT -------- Dictated By: Haim Kaur Dictated Date: 02/05/2025 11:44 ET Assigned Physician: Haim Kaur Reviewed and Electronically Signed By: Haim Kaur Signed Date: 02/05/2025 11:46 ET Workstation ID: [id number] Transcribed By: Self Edit Transcribed Date: 02/05/2025 11:44 ET [facility] MRI PROCEDURES Edited Result - Final * Vascular US duplex carotid bilateral (02/05/2025 9:09 AM EDT) Anatomical Region Laterality Modality Vascular, Abdomen Ultrasound 02/05/2025 9:45 AM EDT Impressions 02/05/2025 9:46 AM EDT No evidence of hemodynamically significant stenosis. -------- FINAL REPORT -------- Dictated By: Meme Reed Dictated Date: 02/05/2025 09:45 ET Assigned Physician: Meme Reed Reviewed and Electronically Signed By: Meme Reed Signed Date: 02/05/2025 09:46 ET Workstation ID: [id number] Transcribed By: Self Edit Transcribed Date: 02/05/2025 09:45 ET Narrative 02/05/2025 9:46 AM EDT INDICATION: TIA, seizures, hypertension, diabetes FINDINGS: Duplex and color images are obtained of the extracranial carotid arterial systems bilaterally. No prior studies are available for comparison. No significant atherosclerotic plaque. Normal velocities and waveforms noted bilaterally. There are normal end diastolic velocities bilaterally with antegrade flow in both vertebral arteries. Procedure Note Meme Reed MD - 02/05/2025 INDICATION: TIA, seizures, hypertension, diabetes FINDINGS: Duplex and color images are obtained of the extracranial carotidarterial systems bilaterally. No prior studies are available forcomparison. No significant atherosclerotic plaque. Normal velocities and waveformsnoted bilaterally. There are normal end diastolic velocities bilaterally with antegrade flowin both vertebral arteries. IMPRESSION: No evidence of hemodynamically significant stenosis. -------- FINAL REPORT -------- Dictated By: Meme Reed Dictated Date: 02/05/2025 09:45 ET Assigned Physician: Meme Reed Reviewed and Electronically Signed By: Meme Reed Signed Date: 02/05/2025 09:46 ET Workstation ID: [id number] Transcribed By: Self Edit Transcribed Date: 02/05/2025 09:45 ET [facility] VASCULAR PROCEDURES Fi nal Result * EEG MONITORING EXTENDED 41-60 MINUTES (02/04/2025 9:31 AM EDT) Olivier Rivera MD - 02/04/2025 4:13 PM EDT Olivier Busby MD 02/04/2025 4:21 PM EEG Date/Time: 02/04/2025 4:13 PM Performed by: Olivier Busby MD Authorized by: Sanjeev Christianson MD us Sanjeev Christianson MD NEUROLOGY ORDERABLES Final Result * Vascular US duplex lower extremity venous left (02/04/2025 6:59 AM EDT) Anatomical Region Laterality Modality Vascular, Abdomen Ultrasound 02/04/2025 7:51 AM EDT Impressions 02/04/2025 7:52 AM EDT NO LEFT LOWER EXTREMITY DEEP VENOUS THROMBOSIS. -------- FINAL REPORT -------- Dictated By: MARYANNE MALLOY Dictated Date: 02/04/2025 07:51 ET Assigned Physician: MARYANNE MALLOY Reviewed and Electronically Signed By: MARYANNE MALLOY Signed Date: 02/04/2025 07:52 ET Workstation ID: [id number] Transcribed By: Self Edit Transcribed Date: 02/04/2025 07:51 ET Narrative 02/04/2025 7:52 AM EDT PROCEDURE: VAS US DUPLEX LOWER EXT VENOUS LEFT INDICATION: Edema TECHNIQUE: 2-D and color Doppler imaging of the left lower extremity venous vasculature with compression and augmentation maneuvers. COMPARISON: No priors available. FINDINGS: There is normal flow, compression, and augmentation from the common femoral through the popliteal vein. Visualized calf veins are patent Procedure Note Maryanne Malloy MD - 02/04/2025 PROCEDURE: VAS US DUPLEX LOWER EXT VENOUS LEFT INDICATION: Edema TECHNIQUE: 2-D and color Doppler imaging of the left lower extremityvenous vasculature with compression and augmentation maneuvers. COMPARISON: No priors available. FINDINGS: There is normal flow, compression, and augmentation from the commonfemoral through the popliteal vein. Visualized calf veins are patent IMPRESSION: NO LEFT LOWER EXTREMITY DEEP VENOUS THROMBOSIS. -------- FINAL REPORT -------- Dictated By: MARYANNE MALLOY Dictated Date: 02/04/2025 07:51 ET Assigned Physician: MARYANNE MALLOY Reviewed and Electronically Signed By: MARYANNE MALLOY Signed Date: 02/04/2025 07:52 ET Workstation ID: [id number] Transcribed By: Self Edit Transcribed Date: 02/04/2025 07:51 ET us Sanjeev Christianson MD CV VASCULAR PROCEDURES Cyn l Result * Lipid panel with reflex to direct LDL (02/04/2025 6:42 AM EDT) Only the most recent of2 resultswithin the time period is included. Cholesterol 158 0 - 200 mg/dL LAB CHEMISTRY METHOD 02/04/2025 7:42 PM EDT [facility] Triglycerides 114 0 - 150 mg/dL LAB CHEMISTRY METHOD 02/04/2025 7:42 PM [facility] HDL 50 >=40 mg/dL LAB CHEMISTRY METHOD 02/04/2025 7:42 PM [facility] LDL Calculated 85 0 - 100 mg/dL LAB CHEMISTRY METHOD 02/04/2025 7:42 PM EDT [facility] Comment:Estimated LDL Calcul ated using equation: Total cholesterol - HDL cholesterol - (Triglycerides/5) VLDL Cholesterol Arjun 22.8 mg/dL LAB CHEMISTRY METHOD 02/04/2025 7:42 PM [facility] Non HDL Chol. (LDL+VLDL) 108 <145 mg/dL LAB CHEMISTRY METHOD 02/04/2025 7:42 PM T [facility] Chol/HDL Ratio 3.2 0.0 - 4.4 LAB CHEMISTRY METHOD 02/04/2025 7:42 PM [facility] Blood Venous blood specimen / Unknown Venipuncture / Unknown 02/04/2025 6:42 AM EDT 02/04/2025 7:06 AM EDT us [facility] BLOOD ORDERABLES Cyn l Result [facility] [address] [place] [address], * (ABNORMAL) Basic metabolic panel (02/04/2025 6:42 AM EDT) Sodium 143 133 - 145 mmol/L LAB CHEMISTRY METHOD 02/04/2025 7:48 AM EDT [facility] Potassium 4.4 3.5 - 5.5 mmol/L LAB CHEMISTRY METHOD 02/04/2025 7:48 AM T [facility] Chloride 112(H) 96 - 110 mmol/L LAB CHEMISTRY METHOD 02/04/2025 7:48 AM [facility] CO2 25 21 - 32 mmol/L LAB CHEMISTRY METHOD 02/04/2025 7:48 AM [facility] Anion Gap 6 3 - 11 LAB CHEMISTRY METHOD 02/04/2025 7:48 AM [facility] Glucose 132(H) 70 - 100 mg/dL LAB CHEMISTRY METHOD 02/04/2025 7:48 AM [facility] BUN 16 5 - 25 mg/dL LAB CHEMISTRY METHOD 02/04/2025 7:48 AM [facility] Creatinine 0.92 0.50 - 1.10 mg/dL LAB CHEMISTRY METHOD 02/04/2025 7:48 AM [facility] eGFR 69 >=60 mL/min/1. 73m2 LAB CHEMISTRY METHOD 02/04/2025 7:48 AM [facility] Comment:Calculation based on the Chronic Kidney Disease Epidemiology Collaboration (CKD-EPI) equation refit without adjustment for race. BUN/Creatinine Ratio 17.4 LAB CHEMISTRY METHOD 02/04/2025 7:48 AM [facility] Calcium 8.9 8.5 - 10.5 mg/dL LAB CHEMISTRY METHOD 02/04/2025 7:48 AM [facility] Blood Venous blood specimen / Unknown Venipuncture / Unknown 02/04/2025 6:42 AM EDT 02/04/2025 7:06 AM EDT Sanjeev Christianson MD LAB BLOOD ORDERABLES Final Result Performing Organization Address [facility]/ZIP Co de Phone Number [facility] [address] [place] [address], [place] [phone] * Prolactin (02/03/2025 3:26 PM EDT) Prolactin 8.00 See Comment ng/mL LAB CHEMISTRY METHOD 02/03/2025 10:23 PM EDT [facility] Comment: Prolactin Reference Ranges (ng/mL) Non 2.2 - 30.3 8.1 - 347.6 Postmenopausal 0.7 - 31.5 Blood Venous blood specimen / Unknown Venipuncture / Unknown 02/03/2025 3:26 PM EDT 02/03/2025 3:36 PM EDT Sanjeev Christianson MD LAB BLOOD ORDERABLES Final Result Performing Organization Address [facility] de Phone Number [facility] [address] [place] [address], [place] [phone] * Lipase (02/03/2025 3:26 PM EDT) Lipase 54 13 - 75 unit/L LAB CHEMISTRY METHOD 02/03/2025 4:08 PM EDT [facility] Blood Venous blood specimen / Unknown Venipuncture / Unknown 02/03/2025 3:26 PM EDT 02/03/2025 3:36 PM EDT Chava Flannery MD LAB BLOOD ORDERABLES Final Result Performing Organization Address [facility]/ZIP Co de Phone Number [facility] [address] [place] [address], [place] [phone] * (ABNORMAL) Valproic acid level, total (02/03/2025 3:26 PM EDT) Valproic Acid, Total <3(L) 50 - 100 mcg/mL LAB CHEMISTRY METHOD 02/03/2025 5:00 PM EDT [facility] Blood Venous blood specimen / Unknown Venipuncture / Unknown 02/03/2025 3:26 PM EDT 02/03/2025 3:36 PM EDT us Chava Flannery MD LAB BLOOD ORDERABLES Final Result [facility] [address] [place] [address], * CT Head wo Contrast (02/03/2025 3:14 PM EDT) Anatomical Region Laterality Modality Head and Neck Computed Tomogra phy 02/03/2025 3:34 PM EDT Impressions 02/03/2025 3:39 PM EDT 1. No acute intracranial hemorrhage, mass effect, or large territorial infarct. -------- FINAL REPORT -------- Dictated By: Barbara Varner Dictated Date: 02/03/2025 15:34 ET Assigned Physician: Barbara Varner Reviewed and Electronically Signed By: Barbara Varner Signed Date: 02/03/2025 15:39 ET Workstation ID: [id number] Transcribed By: Self Edit Transcribed Date: 02/03/2025 15:34 ET Narrative 02/03/2025 3:39 PM EDT PROCEDURE: HEAD CT INDICATION: seizure disorder TECHNIQUE: CT of the head without intravenous contrast. Multiplanar reformats. The examination was performed utilizing dose reduction techniques. Total DLP 809 COMPARISON: No priors available. FINDINGS: No acute territorial infarct, mass effect, or intracranial hemorrhage. No significant white matter disease CSF spaces commensurate for degree of volume loss. Ventriculomegaly. Visualized paranasal sinuses are clear. Mastoid air cells are clear. No calvarial fracture. Procedure Note Barbara Varner MD - 02/03/2025 PROCEDURE: HEAD CT INDICATION: seizure disorder TECHNIQUE: CT of the head without intravenous contrast. Multiplanarreformats. The examination was performed utilizing dose reductiontechniques. Total DLP 809 COMPARISON: No priors available. FINDINGS: No acute territorial infarct, mass effect, or intracranial hemorrhage. No significant white matter disease CSF spaces commensurate for degree of volume loss. Ventriculomegaly. Visualized paranasal sinuses are clear. Mastoid air cells are clear. No calvarial fracture. IMPRESSION: 1. No acute intracranial hemorrhage, mass effect, or large territorialinfarct. -------- FINAL REPORT -------- Dictated By: Barbara Varner Dictated Date: 02/03/2025 15:34 ET Assigned Physician: Barbara Varner Reviewed and Electronically Signed By: Barbara Varner Signed Date: 02/03/2025 15:39 ET Workstation ID: [id number] Transcribed By: Self Edit Transcribed Date: 02/03/2025 15:34 ET Chava Mynor Flannery MD IMG CT PROCEDURES Final Re sult * Levetiracetam level (02/03/2025 1:16 PM EDT) Levetiracetam 56.3 3.0 - 60.0 ug/mL 02/06/2025 8:13 AM EDT [facility] Comment: Steady state trough serum or plasma levels following doses of 1000 to 3000 mg/Day: 3 to 37 ug/mL. The same dosage regimen will typically result in peak levels of 10 to 60 ug/mL, at approximately 1.5 hours post dose. If applicable, any drug confirmation testing reported here was developed and the performance characteristics determined by [employer]. This confirmation testing has not been cleared or approved by the FDA. The laboratory is regulated under CLIA as qualified to perform high-complexity testing. This test is used for patient testing purposes. It should not be regarded as investigational or for research. Test performed at [facility], [address] , [place] [address] Pretty Hopkins MD, PhD - Obgyn Specialist Blood Venous blood specimen / Unknown Venipuncture / Unknown 02/03/2025 1:16 PM EDT 02/03/2025 1:16 PM EDT us Regulo Kauffman QA SOFTWARE TEST ENGINEER LAB BLOOD ORDERABLES Final Resul t [facility] [address] [place] [address] * Hemoglobin A1c (09/03/2024 11:03 AM EDT) Hemoglobin A1C 6.1 <6.5 % LAB CHEMISTRY METHOD 09/06/2024 10:41 AM EDT [facility] Mean Bld Glu Estim. 128 mg/dL LAB CHEMISTRY METHOD 09/06/2024 10:41 AM EDT [facility] Blood Venous blood specimen / Unknown Venipuncture / Unknown 09/03/2024 11:03 AM EDT 09/03/2024 11:03 AM EDT us Regulo Kauffman NP LAB BLOOD ORDERABLES Final Resul t Performing Organization Address City/[facility]/ZIP Co de Phone Number [facility] [address] [place] [address], * COLONOSCOPY Anesthesia - MAC; [facility] ENDOSCOPY (05/22/2024 12:42 PM EST) Anatomical Region Laterality Modality Endoscopy 05/22/2024 12:2 1 PM EST Impressions 05/22/2024 12:44 PM EST - One 9 mm polyp in the transverse colon, removed with a cold snare. Resected and retrieved. - The examination was otherwise normal on direct and retroflexion views. Recommendation: - Discharge patient to home. - Await pathology results. - Repeat colonoscopy in 5 years for surveillance. Narrative 05/22/2024 12:44 PM EST [facility] Patient Name: Omar Sanders Procedure Date: 05/22/2024 12:21 PM Date of : 1960 Age: 64 Gender: Female Note Status: Finalized Attending MD: Yoan Sommer MD, Procedure Date No Time: 05/22/2024 Procedure: Colonoscopy Indications: High risk colon cancer surveillance: Personal history of colonic polyps Providers: Yoan Sommer MD Referring MD: Yoan Sommer MD Medicines: Monitored Anesthesia Care Complications: No immediate complications. Estimated blood loss: Minimal. Estimated Blood Loss: Estimated blood loss was minimal. Procedure: Pre-Anesthesia Assessment: - Prior to the procedure, a History and Physical was performed, and patient medications and allergies were reviewed. The patient is competent. The risks and benefits of the procedure and the sedation options and risks were discussed with the patient. All questions were answered and informed consent was obtained. Patient identification and proposed procedure were verified by the physician, the nurse, the paperhanger supervisor and the laundry technician in the pre-procedure area in the endoscopy suite. Mental Status Examination: alert and oriented. Airway Examination: normal oropharyngeal airway and neck mobility. Respiratory Examination: clear to auscultation. CV Examination: normal. Prophylactic Antibiotics: The patient does not require prophylactic antibiotics. Prior Anticoagulants: The patient has taken no anticoagulant or antiplatelet agents. ASA Grade Assessment: III - A patient with severe systemic disease. After reviewing the risks and benefits, the patient was deemed in satisfactory condition to undergo the procedure. The anesthesia plan was to use monitored anesthesia care (MAC). Immediately prior to administration of medications, the patient was re-assessed for adequacy to receive sedatives. The heart rate, respiratory rate, oxygen saturations, blood pressure, adequacy of pulmonary ventilation, and response to care were monitored throughout the procedure. The physical status of the patient was re-assessed after the procedure. After I obtained informed consent, the scope was passed under direct vision. Throughout the procedure, the patient's blood pressure, pulse, and oxygen saturations were monitored continuously. The Colonoscope was introduced through the anus and advanced to the cecum, identified by appendiceal orifice and ileocecal valve. The colonoscopy was performed without difficulty. The patient tolerated the procedure well. The quality of the bowel preparation was excellent. Findings: The perianal and digital rectal examinations were normal. A 9 mm polyp was found in the transverse colon. The polyp was sessile. The polyp was removed with a cold snare. Resection and retrieval were complete. Estimated blood loss was minimal. The exam was otherwise without abnormality on direct and retroflexion views. Procedure Code(s): --- Professional --- 76714, Colonoscopy, flexible; with removal of tumor(s), polyp(s), or other lesion(s) by snare technique Diagnosis Code(s): --- Professional --- D12.3, Benign neoplasm of transverse colon (hepatic flexure or splenic flexure) CPT copyright 2020 [employer]. All rights reserved. The codes documented in this report are preliminary and upon press worker helper review may be revised to meet current compliance requirements. Yoan Sommer MD 05/22/2024 12:44:49 PM This report has been signed electronically.Yoan Sommer MD Number of Addenda: 0 Note Initiated On: 05/22/2024 12:21 PM Scope Withdrawal Time: 0 hours 9 minutes 25 seconds Scope In: 12:28:10 PM Scope Out: 12:42:17 PM Endoscopy Department at [facility] - [address] [place] [phone] Procedure Note Yoan Sommer MD - 05/22/2024 [facility] Patient Name: Omar Sanders Procedure Date: 05/22/2024 12:21 PM Date of : 1960 Age: 64 Gender: Female Note Status: Finalized Attending MD: Yoan Sommer MD, Procedure Date No Time: 05/22/2024 Procedure: Colonoscopy Indications: High risk colon cancer surveillance: Personalhistory of colonic polyps Providers: Yoan Sommer MD Referring MD: Yoan Sommer MD Medicines: Monitored Anesthesia Care Complications: No immediate complications. Estimated blood loss: Minimal. Estimated Blood Loss: Estimated blood loss was minimal. Procedure: Pre-Anesthesia Assessment: - Prior to the procedure, a History and Physicalwas performed, and patient medications and allergieswere reviewed. The patient is competent. The risks and benefits of the procedure and the sedation optionsand risks were discussed with the patient. Allquestions were answered and informed consent was obtained. Patient identification and proposed procedure were verified by the physician, the nurse, theanesthetist and the laundry technician in the pre-procedure area in the endoscopy suite. Mental Status Examination: alertand oriented. Airway Examination: normal oropharyngeal airway and neck mobility. Respiratory Examination: clear to auscultation. CV Examination: normal. Prophylactic Antibiotics: The patient does notrequire prophylactic antibiotics. Prior Anticoagulants: The patient has taken no anticoagulant or antiplatelet agents. ASA Grade Assessment: III - A patient with severe systemic disease. After reviewing the risksand benefits, the patient was deemed in satisfactory condition to undergo the procedure. The anesthesia plan was to use monitored anesthesia care (MAC). Immediately prior to administration of medications, the patient was re-assessed for adequacy to receive sedatives. The heart rate, respiratory rate, oxygen saturations, blood pressure, adequacy of pulmonary ventilation, and response to care were monitored throughout the procedure. The physical status ofthe patient was re-assessed after the procedure. After I obtained informed consent, the scope was passed under direct vision. Throughout theprocedure, the patient's blood pressure, pulse, and oxygen saturations were monitored continuously. The Colonoscope was introduced through the anus and advanced to the cecum, identified by appendiceal orifice and ileocecal valve. The colonoscopy was performed without difficulty. The patient tolerated the procedure well. The quality of the bowel preparation was excellent. Findings: The perianal and digital rectal examinations were normal. A 9 mm polyp was found in the transverse colon. The polyp was sessile. The polyp was removed with acold snare. Resection and retrieval were complete. Estimated blood loss was minimal. The exam was otherwise without abnormality ondirect and retroflexion views. Procedure Code(s): --- Professional --- 13603, Colonoscopy, flexible; with removal of tumor(s), polyp(s), or other lesion(s) by snare technique Diagnosis Code(s): --- Professional --- D12.3, Benign neoplasm of transverse colon (hepatic flexure or splenic flexure) CPT copyright 2020 [employer]. All rights reserved. The codes documented in this report are preliminary and upon press worker helper reviewmay be revised to meet current compliance requirements. Yoan Sommer MD 05/22/2024 12:44:49 PM This report has been signed electronically.Yoan Sommer MD Number of Addenda: 0 Note Initiated On: 05/22/2024 12:21 PM Scope Withdrawal Time: 0 hours 9 minutes 25 seconds Scope In: 12:28:10 PM Scope Out: 12:42:17 PM Endoscopy Department at [facility] - [address] [place] [phone] IMPRESSION: - One 9 mm polyp in the transverse colon, removed with a cold snare. Resected and retrieved. - The examination was otherwise normal on directand retroflexion views. Recommendation: - Discharge patient to home. - Await pathology results. - Repeat colonoscopy in 5 years for surveillance. us Yoan Sommer MD GI~PROCEDURE ORDERABLES Fin al Result * [facility] SCREENING DIGITAL (05/11/2023 4:13 PM EST) Anatomical Region Laterality Modality Mammography 05/10/2023 10:5 1 AM EST Narrative 05/11/2023 4:13 PM EST [facility] Diagnostic Imaging Department [address] [place] [id number] Patient: KAYOMAR D.O.B./Age/Sex: 1960 - 63 - F Unit#: [id number] Location/Status: SPDIMAM/REG CLI Mnemonic/Ordering Site: [facility] Ordering Physician: REGULO KAUFFMAN RN LIVESTOCK RANCH HAND [facility] Screening Digital - 05/10/23 - 1117 Report Status:Signed EXAM: [facility] Screening Digital EXAM DATE AND TIME: 05/10/2023 11:18 AM HISTORY: Screening. COMPARISON: 03/30/22, 04/30/21, 04/28/20, 04/26/19 ([facility], [place], [place]) TECHNIQUE: Bilateral digital breast tomosynthesis was performed in the CC and MLO projections. Computer aided detection with Echolocation 3D 3.1 was employed. TISSUE DENSITY: a. The breasts are almost entirely fatty. FINDINGS: No suspicious masses, grouped microcalcifications, or areas of architectural distortion are seen. Skin lesions are again noted on the right breast. The vascularity is unremarkable. IMPRESSION: Stable mammographic appearance of the breasts. No evidence of malignancy is seen. A negative mammogram in the presence of a clinically suspicious palpable abnormality does not preclude the possibility of malignancy or alter the indications for biopsy. BI-RADS: Category 2: Benign RECOMMENDATION(S): 1: Routine screening mammogram BILATERAL in 1 year. Dictating Physician: LUCIA MCMILLAN MD Electronically Signed by: LUCIA MCMILLAN MD Dic Date/Time: 05/11/23 161 Sign date/Time: 05/11/23 161 Procedure Note Lucia Mcmillan MD - 12/04/2023 [facility] Diagnostic Imaging Department [address] [place] [address] Patient: KAYOMAR D.O.B./Age/Sex: 1960 - 63 - F Unit#: [id number] Location/Status: SPDIMAM/REG CLI Mnemonic/Ordering Site: [facility] Ordering Physician: REGULO KAUFFMAN RN, CNP [facility] Screening Digital - 05/10/23 - 1117 Report Status:Signed EXAM: [facility] Screening Digital EXAM DATE AND TIME: 05/10/2023 11:18 AM HISTORY: Screening. COMPARISON: 03/30/22, 04/30/21, 04/28/20, 04/26/19 ([place], [place]) TECHNIQUE: Bilateral digital breast tomosynthesis was performed in the CCand MLO projections. Computer aided detection with Echolocation 3D 3.1was employed. TISSUE DENSITY: a. The breasts are almost entirely fatty. FINDINGS: No suspicious masses, grouped microcalcifications, or areas ofarchitectural distortion are seen. Skin lesions are again noted on the right breast.The vascularity is unremarkable. IMPRESSION: Stable mammographic appearance of the breasts. No evidence of malignancyis seen. A negative mammogram in the presence of a clinically suspicious palpable abnormality does not preclude the possibility of malignancy or alter the indications for biopsy. BI-RADS: Category 2: Benign RECOMMENDATION(S): 1: Routine screening mammogram BILATERAL in 1 year. Dictating Physician: LUCIA MCMILLAN MD Electronically Signed by: LUCIA MCMILLAN MD Dic Date/Time: 05/11/23 1612 Sign date/Time: 05/11/23 1613 Regulo Kauffman NP IMG BI PROCEDURES Final Result from Last 3 Months or Most Recently Relevant to Health Maintenance Additional Health Concerns Infection Onset Date Last Indicated Gastrointestinal Rule-Out 02/10/20252024 Insurance [facility] [place] [id number] * Guarantor: [employer] Account Type Relation to Patient Date of Phone Billing Address [place] [address] [facility] [address] [place] [address] , [address] [place] [address] Advance Directives Documents on File Type Date Recorded Patient Heel Stiffener Expl anation Advance Directives and Living Will 04/30/2024 8:41 AM Roberta Sanders ADV DIR-Healthcare Proxy 11.7.24 Advance Directives and Living Will 04/30/2024 8:41 AM ADV DIR-MOLST 7.5.23 * Full Code - Default (Latest Code Status on File) Date Activated Date Inactivated Comments 02/03/2025 7:48 PM 02/05/2025 7:36 PM This is or el is used when code status has not been discussed with the patient, or code status is otherwise unknown/unconfirmed To update the patient's code status, place a code status order. Do not modify or discontinue any currently active code status orders. * Full Code - Default Date Activated Date Inactivated Comments 06/04/2024 4:00 PM 02/03/2025 2:38 PM This is ord er is used when code status has not been discussed with the patient, or code status is otherwise unknown/unconfirmed To update the patient's code status, place a code status order. Do not modify or discontinue any currently active code status orders. Healthcare Agents on File Name Relationship Healthcare Agent Relationshi p Communication Roberta Sanders Relative Health Care Agent Toby Sanders Brother First Alternate Health Car e Agent Care Teams Records Custodian Relationship Specialty Start Date End Date Regulo Kauffman NP [address] [place] [address] PCP - General [facility]ACE 06/07/24
[2025-02-11 20:00] VITALS: BP 120/55; PULSE 67; RESP 16; TEMP 36.6
[2025-02-11 20:01] LABS: Glucose, Whole Blood 163 mg/dL (60-115)
[2025-02-12 06:58] LABS: Glucose, Whole Blood 134 mg/dL (60-115)
[2025-02-12 08:00] VITALS: BP 112/65; PULSE 65; RESP 17; TEMP 36.1; O2SAT 98
[2025-02-12 08:00] LABS: Hemoglobin A1C 100.9289 umol/L
[2025-02-12 08:11] LABS: Alanine Aminotransferase 33 U/L (0-31); Albumin Level 4.2 g/dL (3.5-5.0); Alkaline Phosphatase 75 U/L (39-117); Anion Gap 14 (12-20); Aspartate Amino Transferase 29 U/L (5-31); Blood Urea Nitrogen 17 mg/dL (9-16); Calcium 9.2 mg/dL (8.4-10.2); Carbon Dioxide 23 mmol/L (22-29); Chloride 106 mmol/L (96-108); Cholesterol 170 mg/dL (<200); Creatinine Clr Calc Pharmacy 50.4; Estimated Glomerular Filt Rate 44; HDL Cholesterol 42 mg/dL (>40); Potassium 4.4 mmol/L (3.3-5.1); Sodium 139 mmol/L (135-145); Total Protein 6.8 g/dL (6.5-8.0); Triglycerides 151 mg/dL (<150)
[2025-02-12 08:25] LABS: Free T4 (Free Thyroxine) 1.00 ng/dL (0.71-1.85); Thyroid Stimulating Hormone 1.64 uIU/mL (0.32-4.0)
[2025-02-12 08:30] LABS: Creatinine Clr Calc Pharmacy 48.0; Estimated Glomerular Filt Rate 42
--- NOTE | 2025-02-12 08:35 | HO.PSYADMNOT ---
HPI Date of Service: 02/12/25 Chief Complaint: F31.9 Sources of Information: patient interviewed, chart reviewed and crisis/core team assessment reviewed HPI Subjective Notes: Robin Warning and Conditional Voluntary Healthcare Proxy: Yes Guardianship: No Medical Problems Affecting Mental Status: No Narrative: Meet with patient at 1648 on 02/11 and again by 1130 on 02/12/25 for psychiatric evaluation Per crisis note from [facility]: Patient is a 64 years old female speaking with history schizoaffective D/O, hypothyroidism diabetes, epilepsy, hx of malignant melanoma of skin on the left upper back, migraines, HTN, dementia with mild with wandering behavior who presented to [facility] ED saying that people are out to get me , and expressing paranoia. She stated that she hears her sister and older voices in her head and telling her to go to other apartments. Patient reported that the voices was laughing at her because she will need to go to inpatient psych again. Sister in law who is her healthcare proxy said that patient's medication has not been working well recently. Reported that the patient has been increase in hallucinations and the voices getting louder. Patient reports that she has been taking medication. However [id number] was not sure if his true. Reports HI toward her sister that she wanted to hurt her sister Haydee as Haydee has been harassing me . Patient stated that she is able to hear her sister in her head. Denies plan or intention to harm her sister On S1: Reason for admission I have heart murmur. I have whole in my hard. EKG was done. Defined not think. I do not know . Patient also reported that she heard the altercation at the apartment and I called police . They said that this no altercation when the police arrived and got her to the hospital. Patient can not tell the rationale of why and what happened the police brought her to the hospital. Denies substance use, denies legal issues, denies SI, SIB/HI/VH. However reported that she had history of SIB by hitting the wall when she got frustrated. Denies suicidal history. Denies suicide attempts. Reported that she has been hearing voices this week but I do not remember when asked what actually the voices telling her what she hears. She reported that she hears staffing talking about her in the nurse station. Reports declines in sleep but appetite is good. Reported that she has has been sleeping well since he got to the hospital usually she goes to bed at 8 and wake up at 5 as her normal pattern. Reports that she feels anxious all the time. Denies depression or manic behaviors lately. Goals for this admission is to get better, getting therapy and exercise. Currently does no psych cut just but has therapist through [facility]. Reported that medication managed by PCP. Patient is A+O x4, Wearing hospital attire. Ambulate using walker. Mood is anxious. Speech is within normal limit, normal rate and volume. No ADLs issues. Thought process is somewhat organized, but appeared to be paranoid, full range affect. Thought content is within normal limit, with experiencing AVH at the assessment. No SI/SIB or HI. Poor judgment and insight. Will continue with home meds with [facility] is titrating up per ED record. Past Psychiatric History: [facility] admissions: reports more than 10. Most recent was on S1 in 12/2024. SA: denies SIB: denies. Hx of hitting the wall when frustrated outpt: reports none presently but had prescriber as recently as 4 weeks ago. unclear what she perceives has changed. Therapist Marielos at [facility] Medical Evaluation Reviewed: Hospitalist [facility] Medical History Stable angina History of melanoma HTN (hypertension) Mild persistent asthma FERMÍN (obstructive sleep apnea) Diabetic peripheral neuropathy NPH (normal pressure hydrocephalus) Seizure disorder CKD (chronic kidney disease) Hypothyroidism Type 2 diabetes mellitus Schizoaffective disorder Family History: mother - depression Social History: lives alone in [facility] apartments in [place], [place], where she rents. never , no children. some college. was last working about 15 years ago, working in [employer] at a [employer] in [place], [place]. income is from [employer]. Substance History: Denies. Utox negative Trauma History: reports she saw a vision of her sister's being murdered in 1972. she reports her sister was actually murdered. Diagnostics Vital Signs (24Hr): Vital Signs - 24 hr 02/11/25 15:46 02/11/25 20:00 Temperature 97.3 F 97.9 F Pulse Rate 62 67 Respiratory Rate 16 16 Blood Pressure 127/64 120/55 L Pulse Oximetry 98 Oxygen Delivery Method Room Air Room Air BMI result Body Mass Index 45.4 Labs 02/12/25 08:14 Labs: Laboratory Results - last 48 hr 02/11/25 02/11/25 02/12/25 16:15 19:54 06:38 Sodium Potassium Chloride Carbon Dioxide Anion Gap BUN Creatinine Estim Creat Clear Calc Estimated GFR POC Glucose 117 H 163 H 134 H Random Glucose Estimat Average Glucose Hemoglobin A1c % Calcium Total Bilirubin AST ALT Alkaline Phosphatase Total Protein Albumin Triglycerides Cholesterol LDL Cholesterol, Calc HDL Cholesterol TSH Free T4 02/12/25 02/12/25 07:22 08:14 Sodium 139 Potassium 4.4 Chloride 106 Carbon Dioxide 23 Anion Gap 14 BUN 17 H Creatinine 1.22 1.28 Estim Creat Clear Calc 50.4 48.0 Estimated GFR 44 42 POC Glucose Random Glucose 133 H Estimat Average Glucose 134 Hemoglobin A1c % 6.3 H Calcium 9.2 Total Bilirubin 0.3 AST 29 ALT 33 H Alkaline Phosphatase 75 Total Protein 6.8 Albumin 4.2 Triglycerides 151 H Cholesterol 170 LDL Cholesterol, Calc 98 HDL Cholesterol 42 TSH 1.64 Free T4 1.00 Meds/Allergies Meds Home Medications ?Medication ?Instructions ?Recorded ?Confirmed ?Type levetiracetam 500 mg tablet 1,500 mg PO BID 12/05/24 02/11/25 History lorazepam 0.5 mg tablet 0.5 mg PO BEDTIME 12/06/24 02/11/25 History miconazole nitrate 2 % topical 1 appl topical BID 12/06/24 02/11/25 History cream montelukast 10 mg tablet 10 mg PO BEDTIME 12/06/24 02/11/25 History brexpiprazole 2 mg tablet 2 mg PO DAILY 02/11/25 02/11/25 History clopidogrel 75 mg tablet 75 mg PO DAILY 02/11/25 02/11/25 History ergocalciferol (vitamin D2) 1,250 1,250 mcg PO QMONTH 02/11/25 02/11/25 History mcg (50,000 unit) capsule gabapentin 100 mg capsule 200 mg PO BID 02/11/25 02/11/25 History nitroglycerin 0.4 mg sublingual 0.4 mg sublingual Q5M PRN Angina 02/11/25 02/11/25 History tablet pantoprazole 40 mg tablet,delayed 40 mg PO DAILY 02/11/25 02/11/25 History release pyridoxine (vitamin B6) 25 mg 25 mg PO DAILY 02/11/25 02/11/25 History tablet Allergies Allergies Allergy/AdvReac Type Severity Reaction Status Date / Time ibuprofen Allergy Wheezing Verified 12/05/24 13:10 oxcarbazepine (From Allergy Unknown Verified 03/22/24 20:38 Trileptal) peanut Allergy Unknown Verified 03/22/24 20:38 quetiapine (From Seroquel) Allergy Vomiting Verified 03/22/24 20:38 Mental Status Exam Mental Status Exam Narrative: Patient is A+O x4, Wearing hospital attire. Ambulate using walker. Mood is anxious. Speech is within normal limit, normal rate and volume. No ADLs issues. Thought process is somewhat organized, but appeared to be paranoid, full range affect. Thought content is within normal limit, with current +AVH at the assessment, No CAH. No SI/SIB or HI. Poor judgment and insight. Assessment & Plan Assessment & Plan (1) HTN (hypertension): Status: Acute Code(s): I10 - Essential (primary) hypertension (2) Type 2 diabetes mellitus: Status: Acute Code(s): E11.9 - Type 2 diabetes mellitus without complications (3) Hypothyroidism: Status: Acute Code(s): E03.9 - Hypothyroidism, unspecified (4) CKD (chronic kidney disease): Status: Acute Code(s): N18.9 - Chronic kidney disease, unspecified (5) Seizure disorder: Status: Acute Code(s): G40.909 - Epilepsy, unspecified, not intractable, without status epilepticus (6) FERMÍN (obstructive sleep apnea): Status: Acute Code(s): G47.33 - Obstructive sleep apnea (adult) (pediatric) (7) Schizoaffective disorder: Status: Acute Code(s): F25.9 - Schizoaffective disorder, unspecified Plan HPI: Patient is a 64 years old female speaking with history Schizoaffective D/O,,hypothyroidism diabetes, epilepsy, hx of malignant melanoma of skin on the left upper back, migraines, HTN, sleep apnea, dementia with mild with wandering behavior who presented to [facility] ED saying that people are out to get me , and expressing paranoia. She stated that she hears her sister and older voices in her head and telling her to go to other apartments. Patient reported that the voices was laughing at her because she will need to go to inpatient psych again. Sister in law who is her healthcare proxy said that patient's medication has not been working well recently. Reported that the patient has been increase in hallucinations and the voices getting louder. Patient reports that she has been taking medication. However [id number] was not sure if his true. Formulation/clinical reasoning: Increase in psychotic symptoms, paranoid, hallucinations, increasing anxiety. Questions if she has been compliant with medication. History of bipolar, type I disorder, expressing HI toward the sister. Patient will be benefit in restrictive environment, medication management/adjustment/titration, and refer the patient to outpatient psychiatric services. Currently has no OP psychiatrist on board. Hospital course: 02/12/25: Continue with home meds. Keppra 1,500mg BID for seizure D/O Metformin 500mg daily. Cogentin 0.5mg BID Plavix 75mg daily Gabapentin 200mg BID Levothyroxine 100mcg daily Ativan 0.5mg daily at HS Myrbetriq 50mg daily Singulair 10mg daily at HS Lisinopril 5mg daily Hx of Aristada LEZAMA. Need to confirm last dose- [place] [facility] [place] Currently on Rexulti 2mg. Will titrate up to therapeutic dose to target mood/psychosis. Plan Patient on 5 minute checks for safety. Ambulate using walker. Admitted to S1. CV. Work with treatment team to do collateral with family and OP provider. Sister in law is HCP. Contact the hospitalist regarding hospitalist consultation on admission U/A ordered to rule out UIT as it is confusing with ED note. Keppra level on 02/13. ED record: EKG WNL (02/11/25). Utox Negative A1C 6.3. THS and Free T4 WNL. Patient educated on: diagnosis, medication risk/benefits and therapeutic strategies Informed Consent: understands and further education needed Reason for continued inpatient stay Substantial Risk for: med/psych decompensation Statement Statement: I have reviewed the history and physical and performed a pertinent examination on my patient. No changes have occurred unless specified. If the History and Physical was not performed prior to admission, the Hospitalist's service will be consulted for completing the admission physical. Time Spent With Patient Time: Total time managing care of this patient today ____ minutes.
--- NOTE | 2025-02-12 08:41 | P.CONHOSP_ITS ---
History of Present Illness Data of Consult Service Date: 02/12/25 Primary Care Provider: Unknown Physician HPI Reason for consult: Medical consult 64-year-old female past medical history of bipolar disorder, stable angina, hypertension, asthma, peripheral neuropathy, history of NPH, chronic kidney disease 3A and schizoaffective disorder, hypothyroidism, anxiety, depression, diabetes, epilepsy, FERMÍN (does not use CPAP), and dementia presented to [facility] with paranoia. Patient is managed by [facility] She was found to have a positive urinalysis and started on Bactrim. CBC negative for any leukocytosis or anemia. Electrolytes within normal limits, no evidence of renal or liver dysfunction. Tox screen negative. On exam she reports ongoing issues with left knee pain. Otherwise feels well without any medical concerns. Review of Systems 2 Review of Systems: Denies any shortness of breath, chest pain, headaches, dysuria, abdominal pain or discomfort, nausea, vomiting or diarrhea. Denies fever or chills. Reports left knee pain. [facility] Medical History Stable angina History of melanoma HTN (hypertension) Mild persistent asthma FERMÍN (obstructive sleep apnea) Diabetic peripheral neuropathy NPH (normal pressure hydrocephalus) Seizure disorder CKD (chronic kidney disease) Hypothyroidism Type 2 diabetes mellitus Schizoaffective disorder Social History Household Members: None Household Members Other:: pt states she lives with her whom she got to last week Housing: Apartment Housing Other:: senior housing Do you presently have visiting nurse or other home services: Yes (1-2 x's week) Patient Tobacco Use Status: Never used Tobacco Smoked in Last 30 Days: No e-Cigarette/Vaping Use: Never Used Patient Interested in Nicotine Replacement: No (doesn't smoke) Patient Given Instructions on How to Stop Smoking: No (n/a) Second Hand Smoke Exposure: No Currently Displaying Signs/Symptoms of Drug Intoxication Withdrawal: No Have you been hit, kicked, punched, or otherwise hurt by someone within the past year? If so, by whom?: No Do you feel safe in your current relationship?: No Current Relationship Is there a partner from a previous relationship who is making you feel unsafe now?: No Are you made to feel afraid or neglected: No Spiritual Healthcare Practices: no Zoroastrian Healthcare Practices: no Cultural Healthcare Practices: no Advance Directives: No Advance Directives Information Provided: Yes Do you have thoughts of harming others: None Do you have a plan to hurt others: No Plan Recently lost weight without trying: No Eating poorly because of decreased appetite: No Nutrition Risks: No Nutritional Risk Patient : No : No Poor oral hygiene: No service: No Sexual orientation: Straight/Heterosexual Meds Allergies Allergy/AdvReac Type Severity Reaction Status Date / Time ibuprofen Allergy Wheezing Verified 12/05/24 13:10 oxcarbazepine (From Allergy Unknown Verified 03/22/24 20:38 Trileptal) peanut Allergy Unknown Verified 03/22/24 20:38 quetiapine (From Seroquel) Allergy Vomiting Verified 03/22/24 20:38 Active Medications: Current Medications Acetaminophen (Acetaminophen 325 Mg Tablet) 650 mg PO Q6H PRN PRN Reason: Headache/Pain, Scale 1-10 Al Hydroxide/Mg Hydroxide (Magnesium Hydrox/Alum Hydrox 30 Ml Oral.Susp) 30 ml PO Q6H PRN PRN Reason: Heartburn/Nausea Benztropine Mesylate (Benztropine Mesylate 1 Mg Tablet) 1 mg PO BID [facility] Last Admin: 02/11/25 20:30 Dose: 1 mg Brexpiprazole (Brexpiprazole 2 Mg Tablet) 2 mg PO DAILY [facility] Clopidogrel Bisulfate (Clopidogrel Bisulfate 75 Mg Tablet) 75 mg PO DAILY [facility] Dextrose (Dextrose 50 % 25 Gm/50 Ml Syringe) 25 gm IVPUSH Q15M PRN; Protocol PRN Reason: per Hypoglycemia Standing Ord. Ergocalciferol (Ergocalciferol (Vitamin D2) 1,250 Mcg Capsule) 1,250 mcg PO Q30D [facility] Fluticasone/Vilanterol (Fluticasone/Vilanterol 100/25 Blst.W.Dev) 1 puff INHALE RDAILY [facility] Gabapentin (Gabapentin 100 Mg Capsule) 200 mg PO BID [facility] Last Admin: 02/11/25 20:30 Dose: 200 mg Glucose (Glucose Gel 15 Gm Gel..Gram.) 15 gm PO Q15M PRN; Protocol PRN Reason: per Hypoglycemia Standing Ord. Hydroxyzine HCl (Hydroxyzine Hcl 25 Mg Tablet) 25 mg PO Q6H PRN PRN Reason: mild anxiety Insulin Human Lispro (Insulin Lispro 100 Unit/Ml 3 Ml Vial) 0 unit SUBCUT QIDACHS [facility]; Protocol Last Admin: 02/11/25 20:34 Dose: 2 unit Levetiracetam (Levetiracetam 500 Mg Tablet) 1,500 mg PO BID [facility] Last Admin: 02/11/25 20:28 Dose: 1,500 mg Levothyroxine Sodium (Levothyroxine Sodium 100 Mcg Tablet) 100 mcg PO DAILY@0600 [facility] Last Admin: 02/12/25 06:39 Dose: 100 mcg Lisinopril (Lisinopril 5 Mg Tablet) 5 mg PO DAILY [facility]; Protocol Lorazepam (Lorazepam 0.5 Mg Tablet) 0.5 mg PO BEDTIME [facility] Last Admin: 02/11/25 20:30 Dose: 0.5 mg Magnesium Hydroxide (Milk Of Magnesia 30 Ml Oral.Susp) 30 ml PO DAILY PRN PRN Reason: Constipation Metformin HCl (Metformin Hcl Er 500 Mg Tab.Er.24h) 500 mg PO DAILY@1700 [facility] Last Admin: 02/11/25 18:23 Dose: 500 mg Miconazole Nitrate (Miconazole 2 % Extra Thick Cr 56.7 Gm Tube) 1 appl TOPICAL BID [facility]; Protocol Last Admin: 02/12/25 01:08 Dose: Not Given Mirabegron (Mirabegron 50 Mg Tab.Er.24h) 50 mg PO DAILY [facility] Montelukast Sodium (Montelukast Sodium 10 Mg Tablet) 10 mg PO BEDTIME [facility] Last Admin: 02/11/25 20:30 Dose: 10 mg Nicotine (Nicotine 21 Mg Patch.Td24) 21 mg TRANSDERMA DAILY PRN PRN Reason: nicotine craving Nicotine Polacrilex (Nicotine Polacrilex 2 Mg Gum) 2 mg BUCCAL Q2H PRN PRN Reason: Nicotine Cravings Nitroglycerin (Nitroglycerin 0.4 Mg Tab.Subl) 0.4 mg SUBLINGUAL Q5M PRN PRN Reason: Angina Omeprazole (Omeprazole 20 Mg Capsule.Dr) 20 mg PO DAILY@0630 [facility] Last Admin: 02/12/25 06:40 Dose: 20 mg Trazodone HCl (Trazodone Hcl 50 Mg Tablet) 50 mg PO BEDTIME MRX1 PRN PRN Reason: Insomnia Last Admin: 02/12/25 01:55 Dose: 50 mg Home Medications ?Medication ?Instructions ?Recorded ?Confirmed ?Last Taken ?Type levetiracetam 500 mg tablet 1,500 mg PO BID 12/05/24 1 Unknown History lorazepam 0.5 mg tablet 0.5 mg PO BEDTIME 12/06/24 1 Unknown History miconazole nitrate 2 % topical 1 appl topical BID 11/1602/11/25 Unknown History cream montelukast 10 mg tablet 10 mg PO BEDTIME 12/06/24 Unknown History brexpiprazole 2 mg tablet 2 mg PO DAILY 02/11/2502/11 Unknown History clopidogrel 75 mg tablet 75 mg PO DAILY 02/11/2501/16 Unknown History ergocalciferol (vitamin D2) 1,250 1,250 mcg PO QMONTH 02/11/25 02/11/25 Unknown History mcg (50,000 unit) capsule gabapentin 100 mg capsule 200 mg PO BID 02/11/2502/11 Unknown History nitroglycerin 0.4 mg sublingual 0.4 mg sublingual Q5M PRN Angina 02/11/25 02/11/25 Unknown History tablet pantoprazole 40 mg tablet,delayed 40 mg PO DAILY 02/1102/11/25 Unknown History release pyridoxine (vitamin B6) 25 mg 25 mg PO DAILY 02/11/25 02/11/25 Unknown History tablet Physical Exam 2 Vital Signs and Narrative: Vital Signs: Last Vital Signs Temp 97.9 F 02/11/25 20:00 Pulse 67 02/11/25 20:00 Resp 16 02/11/25 20:00 BP 120/55 L 02/11/25 20:00 Pulse Ox 98 02/11/25 15:46 O2 Del Method Room Air 02/11/25 20:00 BMI result Body Mass Index 45.4 CONST: Alert and oriented, in NAD. Well nourished HEENT: Normocephalic, atraumatic, MMM, Eyes clear, Neck supple RESP: Lungs clear, RRR even and regular HEART:,RRR, S1, S2, no edema GI:Abdomen Soft NT, ND. + BS times four. Obese abdomen :Deferred SKIN: Warm dry and intact, no visible lesions or rashes NEURO:CN II-XII Intact bilaterally, Sensation intact. Speech clear PSYCH: Normal affect Musculoskeletal: Bilateral knees symmetrical, left knee with tenderness of the entire knee, no redness no swelling, no warmth. Full range of motion, no crepitus Results Labs 02/12/25 08:14 Labs: Laboratory Results - last 24 hr 02/11/25 02/11/25 02/12/25 16:15 19:54 06:38 Anion Gap Estim Creat Clear Calc Estimated GFR POC Glucose 117 H 163 H 134 H Random Glucose Estimat Average Glucose Hemoglobin A1c % Calcium Total Bilirubin AST ALT Alkaline Phosphatase Total Protein Albumin Triglycerides Cholesterol LDL Cholesterol, Calc HDL Cholesterol TSH Free T4 02/12/25 02/12/25 07:22 08:14 Anion Gap 14 Estim Creat Clear Calc 50.4 48.0 Estimated GFR 44 42 POC Glucose Random Glucose 133 H Estimat Average Glucose 134 Hemoglobin A1c % 6.3 H Calcium 9.2 Total Bilirubin 0.3 AST 29 ALT 33 H Alkaline Phosphatase 75 Total Protein 6.8 Albumin 4.2 Triglycerides 151 H Cholesterol 170 LDL Cholesterol, Calc 98 HDL Cholesterol 42 TSH 1.64 Free T4 1.00 Assessment and Plan (1) Medical clearance for psychiatric admission: Status: Resolved Plan 64-year-old female with a past medical history listed below admitted to [facility] psych for treatment of auditory and visual hallucinations. No current medical concerns. Bipolar disorder/schizoaffective disorder/anxiety/depression/dementia Treatment per psychiatric team mild persistent asthma Not in acute exacerbation Continue albuterol as needed, montelukast and Breo daily HTN Continue lisinopril Hypothyroidism Continue levothyroxine Recent TSH 1.64 with normal free T4 FERMÍN Patient does not use CPAP, offered and she declined Epilepsy Continue Keppra No recent seizure reported EPS Continue benztropine NPH Monitor neuro status. T2DM/peripheral neuropathy Continue consistent carb diet Continue metformin and gabapentin Insulin sliding scale Recent A1c 6.3 Stage IIIA chronic kidney disease Baseline creatinine 1.2 Left knee pain Lidoderm patch to left knee daily Thank you for allowing me to participate in the care of this patient. Will follow with you, please notify medical provider with any changes in condition or concerns.
[2025-02-12] MEDS: Mirabegron 50 MG TAB.ER.24H PO (08:59)
[2025-02-12 09:02] VITALS: BP 112/65
[2025-02-12 12:16] LABS: Glucose, Whole Blood 139 mg/dL (60-115)
--- NOTE | 2025-02-12 12:52 | P.PNPSI_ITS ---
Subjective Subjective Reason For Visit: F31.9 Diagnostics Vital Signs (24Hr): Vital Signs - 24 hr 02/11/25 15:46 02/11/25 20:00 02/12/25 08:00 Temperature 97.3 F 97.9 F 97 F Pulse Rate 62 67 65 Respiratory Rate 16 16 17 Blood Pressure 127/64 120/55 L 112/65 Pulse Oximetry 98 98 Oxygen Delivery Method Room Air Room Air Room Air 02/12/25 09:02 Temperature Pulse Rate Respiratory Rate Blood Pressure 112/65 Pulse Oximetry Oxygen Delivery Method BMI result Body Mass Index 45.4 Labs 02/12/25 08:14 Labs: Laboratory Results - last 48 hr 02/11/25 02/11/25 02/12/25 16:15 19:54 06:38 Sodium Potassium Chloride Carbon Dioxide Anion Gap BUN Creatinine Estim Creat Clear Calc Estimated GFR POC Glucose 117 H 163 H 134 H Random Glucose Estimat Average Glucose Hemoglobin A1c % Calcium Total Bilirubin AST ALT Alkaline Phosphatase Total Protein Albumin Triglycerides Cholesterol LDL Cholesterol, Calc HDL Cholesterol TSH Free T4 02/12/25 02/12/25 02/12/25 07:22 08:14 12:12 Sodium 139 Potassium 4.4 Chloride 106 Carbon Dioxide 23 Anion Gap 14 BUN 17 H Creatinine 1.22 1.28 Estim Creat Clear Calc 50.4 48.0 Estimated GFR 44 42 POC Glucose 139 H Random Glucose 133 H Estimat Average Glucose 134 Hemoglobin A1c % 6.3 H Calcium 9.2 Total Bilirubin 0.3 AST 29 ALT 33 H Alkaline Phosphatase 75 Total Protein 6.8 Albumin 4.2 Triglycerides 151 H Cholesterol 170 LDL Cholesterol, Calc 98 HDL Cholesterol 42 TSH 1.64 Free T4 1.00 Medications Medications Current Medications Acetaminophen (Acetaminophen 325 Mg Tablet) 650 mg PO Q6H PRN PRN Reason: Headache/Pain, Scale 1-10 Al Hydroxide/Mg Hydroxide (Magnesium Hydrox/Alum Hydrox 30 Ml Oral.Susp) 30 ml PO Q6H PRN PRN Reason: Heartburn/Nausea Benztropine Mesylate (Benztropine Mesylate 1 Mg Tablet) 1 mg PO BID [facility] Last Admin: 02/12/25 08:58 Dose: 1 mg Brexpiprazole (Brexpiprazole 2 Mg Tablet) 2 mg PO DAILY [facility] Last Admin: 02/12/25 08:59 Dose: 2 mg Clopidogrel Bisulfate (Clopidogrel Bisulfate 75 Mg Tablet) 75 mg PO DAILY [facility] Last Admin: 02/12/25 08:58 Dose: 75 mg Dextrose (Dextrose 50 % 25 Gm/50 Ml Syringe) 25 gm IVPUSH Q15M PRN; Protocol PRN Reason: per Hypoglycemia Standing Ord. Ergocalciferol (Ergocalciferol (Vitamin D2) 1,250 Mcg Capsule) 1,250 mcg PO Q30D [facility] Fluticasone/Vilanterol (Fluticasone/Vilanterol 100/25 Blst.W.Dev) 1 puff INHALE RDAILY [facility] Last Admin: 02/12/25 09:01 Dose: Not Given Gabapentin (Gabapentin 100 Mg Capsule) 200 mg PO BID [facility] Last Admin: 02/12/25 08:59 Dose: 200 mg Glucose (Glucose Gel 15 Gm Gel..Gram.) 15 gm PO Q15M PRN; Protocol PRN Reason: per Hypoglycemia Standing Ord. Hydroxyzine HCl (Hydroxyzine Hcl 25 Mg Tablet) 25 mg PO Q6H PRN PRN Reason: mild anxiety Insulin Human Lispro (Insulin Lispro 100 Unit/Ml 3 Ml Vial) 0 unit SUBCUT QIDACHS [facility]; Protocol Last Admin: 02/12/25 12:32 Dose: Not Given Levetiracetam (Levetiracetam 500 Mg Tablet) 1,500 mg PO BID [facility] Last Admin: 02/12/25 08:58 Dose: 1,500 mg Levothyroxine Sodium (Levothyroxine Sodium 100 Mcg Tablet) 100 mcg PO DAILY@0600 [facility] Last Admin: 02/12/25 06:39 Dose: 100 mcg Lisinopril (Lisinopril 5 Mg Tablet) 5 mg PO DAILY [facility]; Protocol Last Admin: 02/12/25 09:02 Dose: 5 mg Lorazepam (Lorazepam 0.5 Mg Tablet) 0.5 mg PO BEDTIME [facility] Last Admin: 02/11/25 20:30 Dose: 0.5 mg Magnesium Hydroxide (Milk Of Magnesia 30 Ml Oral.Susp) 30 ml PO DAILY PRN PRN Reason: Constipation Metformin HCl (Metformin Hcl Er 500 Mg Tab.Er.24h) 500 mg PO DAILY@1700 [facility] Last Admin: 02/11/25 18:23 Dose: 500 mg Miconazole Nitrate (Miconazole 2 % Extra Thick Cr 56.7 Gm Tube) 1 appl TOPICAL BID [facility]; Protocol Last Admin: 02/12/25 09:08 Dose: Not Given Mirabegron (Mirabegron 50 Mg Tab.Er.24h) 50 mg PO DAILY [facility] Last Admin: 02/12/25 08:59 Dose: 50 mg Montelukast Sodium (Montelukast Sodium 10 Mg Tablet) 10 mg PO BEDTIME [facility] Last Admin: 02/11/25 20:30 Dose: 10 mg Nicotine (Nicotine 21 Mg Patch.Td24) 21 mg TRANSDERMA DAILY PRN PRN Reason: nicotine craving Nicotine Polacrilex (Nicotine Polacrilex 2 Mg Gum) 2 mg BUCCAL Q2H PRN PRN Reason: Nicotine Cravings Nitroglycerin (Nitroglycerin 0.4 Mg Tab.Subl) 0.4 mg SUBLINGUAL Q5M PRN PRN Reason: Angina Omeprazole (Omeprazole 20 Mg Capsule.Dr) 20 mg PO DAILY@0630 [facility] Last Admin: 02/12/25 06:40 Dose: 20 mg Trazodone HCl (Trazodone Hcl 50 Mg Tablet) 50 mg PO BEDTIME MRX1 PRN PRN Reason: Insomnia Last Admin: 02/12/25 01:55 Dose: 50 mg Allergies Allergies Allergy/AdvReac Type Severity Reaction Status Date / Time ibuprofen Allergy Wheezing Verified 12/05/24 13:10 oxcarbazepine (From Allergy Unknown Verified 03/22/24 20:38 Trileptal) peanut Allergy Unknown Verified 03/22/24 20:38 quetiapine (From Seroquel) Allergy Vomiting Verified 03/22/24 20:38 Assessment & Plan Assessment & Plan Plan HPI: Formulation/clinical reasoning: Hospital course: Plan Patient on 5 minute checks for safety. Admitted to S1. CV. Work with treatment team to do collateral f Contact the hospitalist regarding hospitalist consultation on admission Time Spent With Patient Time: Total time managing care of this patient today ____ minutes.
[2025-02-12 16:17] LABS: Glucose, Whole Blood 169 mg/dL (60-115)
[2025-02-12] MEDS: Lidocaine 4 % Patch ADH..PATCH 3 PATCH TRANSDERMA (17:04)
[2025-02-12 20:00] VITALS: BP 122/60; PULSE 68; RESP 16; TEMP 36.2; O2SAT 96
[2025-02-12] MEDS: Miconazole 2 % Extra Thick Cr 56.7 Gm Tube 1 APPL TOPICAL (21:15)
[2025-02-12 21:47] LABS: Glucose, Whole Blood 149 mg/dL (60-115)
[2025-02-13 06:38] LABS: Glucose, Whole Blood 158 mg/dL (60-115)
[2025-02-13 08:00] VITALS: BP 125/89; PULSE 67; RESP 18; TEMP 36.3; O2SAT 98
[2025-02-13] MEDS: Lidocaine 4 % Patch ADH..PATCH 3 PATCH TRANSDERMA (08:41)
[2025-02-13] MEDS: Fluticasone/Vilanterol 100/25 BLST.W.DEV 1 PUFF INHALE (08:42)
[2025-02-13] MEDS: Miconazole 2 % Extra Thick Cr 56.7 Gm Tube 1 APPL TOPICAL ×2 (08:45→21:05)
[2025-02-13] MEDS: Mirabegron 50 MG TAB.ER.24H PO (08:49)
[2025-02-13 11:31] LABS: Glucose, Whole Blood 149 mg/dL (60-115)
[2025-02-13 12:06] VITALS: BMI 45.9
[2025-02-13] MEDS: Milk of Magnesia 30 ML ORAL.SUSP PO (15:50)
[2025-02-13 16:21] LABS: Glucose, Whole Blood 150 mg/dL (60-115)
[2025-02-13 16:22] LABS: Appearance Urine Clear; Glucose Urine UA Negative (Negative); PH 5.5 (5.0-9.0); Specific Gravity - Urine <= 1.005 (1.005-1.025); UMIC TRIGGER UACC YES
[2025-02-13 16:53] LABS: UACC Culture Trigger YES
[2025-02-13 20:00] VITALS: BP 117/57; PULSE 62; RESP 16; TEMP 36.7; O2SAT 97
[2025-02-13 21:23] LABS: Glucose, Whole Blood 140 mg/dL (60-115)
--- NOTE | 2025-02-13 23:12 | P.PNPSI_ITS ---
Subjective Subjective Date of Service: 02/13/25 Reason For Visit: F31.9 Subjective Notes: Conditional Voluntary Healthcare Proxy: Yes Guardianship: No Medical Problems Affecting Mental Status: No Interim History: Medical record and nursing notes reviewed; case discussed during rounds with team/nursing staff, and met with patient for supportive therapy/psychoeducation, as well as medication management. Patient reports that she has a terrible night that she could sleep. But has no issue with appetite. Reports left knee pain 8.510. Reported that her back pain is getting better now. She does not need lidocaine patch for it. Nursing reported that patient told them the patient have neighbor yesterday, was gave to the baby last night. When confirmed with patient during assessment, patient said it was not sure . However, later on she said I am . Reports severe anxiety 12/25. She asked if she can get some trazodone for sleep. She ambulate with a walker, visible at times on the unit. Full range affect. She is paranoid, delusional. We do collateral with outpatient provider to get the information regarding long- acting injection. Patient reports having [facility] manage medication and she cannot recall when was last dose. Medication Compliance: Yes (except for fungal cream) Side effects from medications: No Attending Groups: Intermittent Review of Systems Acute medical concerns: No Medical Review of Systems: unchanged Review of Systems Review of Systems Denies any shortness of breath, chest pain, headaches, dysuria, abdominal pain or discomfort, nausea, vomiting or diarrhea. Denies fever or chills. Reports left knee pain. Yes all other systems are reviewed and are negative Mental Status Exam Mental Status Exam Narrative: Patient is A+O x4, Wearing casual attire. Ambulate using walker. Mood is anxious- moderate to severe. Speech is within normal limit, normal rate and volume. No ADLs issues. Thought process is somewhat organized, but appeared to be paranoid, full range affect. Thought content is within normal limit, with current +AVH at the assessment, is delusions and paranoia. No CAH. No SI/SIB or HI. Poor judgment and insight. Diagnostics Vital Signs (24Hr): Vital Signs - 24 hr 02/13/25 08:00 02/13/25 20:00 Temperature 97.4 F 98.1 F Pulse Rate 67 62 Respiratory Rate 18 16 Blood Pressure 125/89 117/57 L Pulse Oximetry 98 97 Oxygen Delivery Method Room Air Room Air BMI result Body Mass Index 45.9 Labs 02/12/25 08:14 Labs: Laboratory Results - last 48 hr 02/12/25 02/12/25 02/12/25 06:38 07:22 08:14 Sodium 139 Potassium 4.4 Chloride 106 Carbon Dioxide 23 Anion Gap 14 BUN 17 H Creatinine 1.22 1.28 Estim Creat Clear Calc 50.4 48.0 Estimated GFR 44 42 POC Glucose 134 H Random Glucose 133 H Estimat Average Glucose 134 Hemoglobin A1c % 6.3 H Calcium 9.2 Total Bilirubin 0.3 AST 29 ALT 33 H Alkaline Phosphatase 75 Total Protein 6.8 Albumin 4.2 Triglycerides 151 H Cholesterol 170 LDL Cholesterol, Calc 98 HDL Cholesterol 42 TSH 1.64 Free T4 1.00 Urine Color Urine Appearance Urine pH Ur Specific Varney Urine Protein Urine Glucose (UA) Urine Ketones Urine Blood Urine Nitrite Ur Leukocyte Esterase Urine RBC Urine WBC Ur Squamous Epith Cells Urine Bacteria Hyaline Casts 02/12/25 02/12/25 02/12/25 12:12 16:09 21:14 Sodium Potassium Chloride Carbon Dioxide Anion Gap BUN Creatinine Estim Creat Clear Calc Estimated GFR POC Glucose 139 H 169 H 149 H Random Glucose Estimat Average Glucose Hemoglobin A1c % Calcium Total Bilirubin AST ALT Alkaline Phosphatase Total Protein Albumin Triglycerides Cholesterol LDL Cholesterol, Calc HDL Cholesterol TSH Free T4 Urine Color Urine Appearance Urine pH Ur Specific Varney Urine Protein Urine Glucose (UA) Urine Ketones Urine Blood Urine Nitrite Ur Leukocyte Esterase Urine RBC Urine WBC Ur Squamous Epith Cells Urine Bacteria Hyaline Casts 02/13/25 02/13/25 02/13/25 06:33 11:26 16:00 Sodium Potassium Chloride Carbon Dioxide Anion Gap BUN Creatinine Estim Creat Clear Calc Estimated GFR POC Glucose 158 H 149 H Random Glucose Estimat Average Glucose Hemoglobin A1c % Calcium Total Bilirubin AST ALT Alkaline Phosphatase Total Protein Albumin Triglycerides Cholesterol LDL Cholesterol, Calc HDL Cholesterol TSH Free T4 Urine Color Yellow Urine Appearance Clear Urine pH 5.5 Ur Specific Varney <= 1.005 Urine Protein Negative Urine Glucose (UA) Negative Urine Ketones Negative Urine Blood Negative Urine Nitrite Negative Ur Leukocyte Esterase Moderate (2+) H Urine RBC 0-2 Urine WBC 6-10 H Ur Squamous Epith Cells 0-2 Urine Bacteria None Seen Hyaline Casts 0-2 02/13/25 02/13/25 16:15 20:53 Sodium Potassium Chloride Carbon Dioxide Anion Gap BUN Creatinine Estim Creat Clear Calc Estimated GFR POC Glucose 150 H 140 H Random Glucose Estimat Average Glucose Hemoglobin A1c % Calcium Total Bilirubin AST ALT Alkaline Phosphatase Total Protein Albumin Triglycerides Cholesterol LDL Cholesterol, Calc HDL Cholesterol TSH Free T4 Urine Color Urine Appearance Urine pH Ur Specific Varney Urine Protein Urine Glucose (UA) Urine Ketones Urine Blood Urine Nitrite Ur Leukocyte Esterase Urine RBC Urine WBC Ur Squamous Epith Cells Urine Bacteria Hyaline Casts Medications Medications Current Medications Acetaminophen (Acetaminophen 325 Mg Tablet) 650 mg PO Q6H PRN PRN Reason: Headache/Pain, Scale 1-10 Last Admin: 02/13/25 08:46 Dose: 650 mg Al Hydroxide/Mg Hydroxide (Magnesium Hydrox/Alum Hydrox 30 Ml Oral.Susp) 30 ml PO Q6H PRN PRN Reason: Heartburn/Nausea Benztropine Mesylate (Benztropine Mesylate 1 Mg Tablet) 1 mg PO BID [facility] Last Admin: 02/13/25 20:55 Dose: 1 mg Brexpiprazole (Brexpiprazole 2 Mg Tablet) 2 mg PO DAILY [facility] Last Admin: 02/13/25 08:50 Dose: 2 mg Clopidogrel Bisulfate (Clopidogrel Bisulfate 75 Mg Tablet) 75 mg PO DAILY [facility] Last Admin: 02/13/25 08:49 Dose: 75 mg Dextrose (Dextrose 50 % 25 Gm/50 Ml Syringe) 25 gm IVPUSH Q15M PRN; Protocol PRN Reason: per Hypoglycemia Standing Ord. Ergocalciferol (Ergocalciferol (Vitamin D2) 1,250 Mcg Capsule) 1,250 mcg PO Q30D [facility] Fluticasone/Vilanterol (Fluticasone/Vilanterol 100/25 Blst.W.Dev) 1 puff INHALE RDAILY [facility] Last Admin: 02/13/25 08:42 Dose: 1 puff Gabapentin (Gabapentin 100 Mg Capsule) 200 mg PO BID [facility] Last Admin: 02/13/25 20:55 Dose: 200 mg Glucose (Glucose Gel 15 Gm Gel..Gram.) 15 gm PO Q15M PRN; Protocol PRN Reason: per Hypoglycemia Standing Ord. Hydroxyzine HCl (Hydroxyzine Hcl 25 Mg Tablet) 25 mg PO Q6H PRN PRN Reason: mild anxiety Last Admin: 02/13/25 13:34 Dose: 25 mg Insulin Human Lispro (Insulin Lispro 100 Unit/Ml 3 Ml Vial) 0 unit SUBCUT QIDACHS [facility]; Protocol Last Admin: 02/13/25 22:00 Dose: Not Given Levetiracetam (Levetiracetam 500 Mg Tablet) 1,500 mg PO BID [facility] Last Admin: 02/13/25 20:54 Dose: 1,500 mg Levothyroxine Sodium (Levothyroxine Sodium 100 Mcg Tablet) 100 mcg PO DAILY@0600 [facility] Last Admin: 02/13/25 05:59 Dose: 100 mcg Lidocaine (Lidocaine 4 % Patch Adh..Patch) 3 patch TRANSDERMA DAILY [facility]; Protocol Last Admin: 02/13/25 08:41 Dose: 1 patch Lisinopril (Lisinopril 5 Mg Tablet) 5 mg PO DAILY [facility]; Protocol Last Admin: 02/13/25 08:49 Dose: 5 mg Lorazepam (Lorazepam 0.5 Mg Tablet) 0.5 mg PO BEDTIME [facility] Last Admin: 02/13/25 20:55 Dose: 0.5 mg Magnesium Hydroxide (Milk Of Magnesia 30 Ml Oral.Susp) 30 ml PO DAILY PRN PRN Reason: Constipation Last Admin: 02/13/25 15:50 Dose: 30 ml Metformin HCl (Metformin Hcl Er 500 Mg Tab.Er.24h) 500 mg PO DAILY@1700 [facility] Last Admin: 02/13/25 16:33 Dose: 500 mg Miconazole Nitrate (Miconazole 2 % Extra Thick Cr 56.7 Gm Tube) 1 appl TOPICAL BID [facility]; Protocol Last Admin: 02/13/25 21:05 Dose: 1 appl Mirabegron (Mirabegron 50 Mg Tab.Er.24h) 50 mg PO DAILY [facility] Last Admin: 02/13/25 08:49 Dose: 50 mg Montelukast Sodium (Montelukast Sodium 10 Mg Tablet) 10 mg PO BEDTIME [facility] Last Admin: 02/13/25 20:55 Dose: 10 mg Nicotine (Nicotine 21 Mg Patch.Td24) 21 mg TRANSDERMA DAILY PRN PRN Reason: nicotine craving Nicotine Polacrilex (Nicotine Polacrilex 2 Mg Gum) 2 mg BUCCAL Q2H PRN PRN Reason: Nicotine Cravings Nitroglycerin (Nitroglycerin 0.4 Mg Tab.Subl) 0.4 mg SUBLINGUAL Q5M PRN PRN Reason: Angina Olanzapine (Olanzapine 5 Mg Tablet) 5 mg PO BID PRN PRN Reason: agitation/hallucination Last Admin: 02/13/25 15:50 Dose: 5 mg Omeprazole (Omeprazole 20 Mg Capsule.Dr) 20 mg PO DAILY@0630 [facility] Last Admin: 02/13/25 06:34 Dose: 20 mg Trazodone HCl (Trazodone Hcl 50 Mg Tablet) 50 mg PO BEDTIME MRX1 PRN PRN Reason: Insomnia Last Admin: 02/13/25 21:05 Dose: 50 mg Allergies Allergies Allergy/AdvReac Type Severity Reaction Status Date / Time ibuprofen Allergy Wheezing Verified 12/05/24 13:10 oxcarbazepine (From Allergy Unknown Verified 03/22/24 20:38 Trileptal) peanut Allergy Unknown Verified 03/22/24 20:38 quetiapine (From Seroquel) Allergy Vomiting Verified 03/22/24 20:38 Assessment & Plan Assessment & Plan (1) Medical clearance for psychiatric admission: Status: Resolved Code(s): Z00.8 - Encounter for other general examination (2) Schizoaffective disorder: Status: Acute Code(s): F25.9 - Schizoaffective disorder, unspecified (3) Seizure disorder: Status: Acute Code(s): G40.909 - Epilepsy, unspecified, not intractable, without status epilepticus (4) FERMÍN (obstructive sleep apnea): Status: Acute Code(s): G47.33 - Obstructive sleep apnea (adult) (pediatric) (5) CKD (chronic kidney disease): Status: Acute Code(s): N18.9 - Chronic kidney disease, unspecified (6) Type 2 diabetes mellitus: Status: Acute Code(s): E11.9 - Type 2 diabetes mellitus without complications (7) Hypothyroidism: Status: Acute Code(s): E03.9 - Hypothyroidism, unspecified (8) HTN (hypertension): Status: Acute Code(s): I10 - Essential (primary) hypertension Plan HPI: Patient is a 64 years old female speaking with history Schizoaffective D/O,,hypothyroidism diabetes, epilepsy, hx of malignant melanoma of skin on the left upper back, migraines, HTN, sleep apnea, dementia with mild with wandering behavior who presented to [facility] ED saying that people are out to get me , and expressing paranoia. She stated that she hears her sister and older voices in her head and telling her to go to other apartments. Patient reported that the voices was laughing at her because she will need to go to inpatient psych again. Sister in law who is her healthcare proxy said that patient's medication has not been working well recently. Reported that the patient has been increase in hallucinations and the voices getting louder. Patient reports that she has been taking medication. However [id number] was not sure if his true. Formulation/clinical reasoning: Increase in psychotic symptoms, paranoid, hallucinations, increasing anxiety. Questions if she has been compliant with medication. History of bipolar, type I disorder, expressing HI toward the sister. Patient will be benefit in restrictive environment, medication management/adjustment/titration, and refer the patient to outpatient psychiatric services. Currently has no OP psychiatrist on board. Hospital course: 02/12/25: Continue with home meds. Keppra 1,500mg BID for seizure D/O Metformin 500mg daily. Cogentin 0.5mg BID Plavix 75mg daily Gabapentin 200mg BID Levothyroxine 100mcg daily Ativan 0.5mg daily at HS Myrbetriq 50mg daily Singulair 10mg daily at HS Lisinopril 5mg daily Hx of Aristada LEZAMA. Need to confirm last dose- per [facility] discharge summary in 12/2024. Currently on Rexulti 2mg. Will titrate up to therapeutic dose to target mood/psychosis. 02/13/25: Patient reports that she has a terrible night that she could sleep. But has no issue with appetite. Reports left knee pain 8.5/10. Reported that her back pain is getting better now. She does not need lidocaine patch for it. Nursing reported that patient told them the patient have neighbor yesterday, was gave to the baby last night. When confirmed with patient during assessment, patient said it was not sure . However, later on she said I am . Reports severe anxiety 12/25. She asked if she can get some trazodone for sleep. She ambulate with a walker, visible at times on the unit. Full range affect. She is paranoid, delusional. We do collateral with outpatient provider to get the information regarding long- acting injection. Patient reports having [facility] manage medication and she cannot recall when was last dose. Trazodone 50mg at HS for insonia Zyprexa 5mg BID PRN for psychosis/agitation. Psychiatric plan: Patient on 5 minute checks for safety. Ambulate using walker. Admitted to S1. CV. Work with treatment team to do collateral with family and OP provider. Sister in law is HCP. Contact the hospitalist regarding hospitalist consultation on admission U/A ordered to rule out UIT as it is confusing with ED note. Keppra level on 02/13. ED record: EKG WNL (02/11/25). Utox Negative A1C 6.3. THS and Free T4 WNL. Medical plan: mild persistent asthma Not in acute exacerbation Continue albuterol as needed, montelukast and Breo daily HTN Continue lisinopril Hypothyroidism Continue levothyroxine Recent TSH 1.64 with normal free T4 FERMÍN Patient does not use CPAP, offered and she declined Epilepsy Continue Keppra No recent seizure reported EPS Continue benztropine NPH Monitor neuro status. T2DM/peripheral neuropathy Continue consistent carb diet Continue metformin and gabapentin Insulin sliding scale Recent A1c 6.3 Stage IIIA chronic kidney disease Baseline creatinine 1.2 Left knee pain Lidoderm patch to left knee daily Thank you for allowing me to participate in the care of this patient. Will follow with you, please notify medical provider with any changes in condition or concerns. Patient educated on: diagnosis, medication risk/benefits and therapeutic strategies Informed Consent: understands and further education needed Reason for continued inpatient stay Substantial Risk for: med/psych decompensation Time Spent With Patient Time: Total time managing care of this patient today ____ minutes.
[2025-02-14 06:48] LABS: Glucose, Whole Blood 177 mg/dL (60-115)
[2025-02-14 08:00] VITALS: BP 116/62; PULSE 67; RESP 18; TEMP 36.5; O2SAT 96
[2025-02-14] MEDS: Mirabegron 50 MG TAB.ER.24H PO (08:14)
[2025-02-14] MEDS: Lidocaine 4 % Patch ADH..PATCH 3 PATCH TRANSDERMA (08:14)
[2025-02-14] MEDS: Miconazole 2 % Extra Thick Cr 56.7 Gm Tube 1 APPL TOPICAL (08:16)
[2025-02-14] MEDS: Fluticasone/Vilanterol 100/25 BLST.W.DEV 1 PUFF INHALE (08:25)
--- NOTE | 2025-02-14 10:34 | HO.PSYCHPN ---
Subjective Subjective Date of Service: 02/14/25 Reason For Visit: F31.9 Subjective Notes: Robin Warning and Conditional Voluntary Healthcare Proxy: Yes Guardianship: No Medical Problems Affecting Mental Status: No Interim History: Medical record and nursing notes reviewed; case discussed during rounds with team/nursing staff, and met with patient for supportive therapy/psychoeducation, as well as medication management. Patient reports that she slept well last night and feel better, less anxious compared to yesterday even though rate anxiety a 7/10. Denies depression or safety concerns. Report hearing voices of her worker at [employer], her brother and her sister. Patient reports that Zyprexa she received yesterday was helpful. Reviewed with patient regarding meds changes. SW is able to get current meds list from her OP team. Patient was given Aristada on 01/23. Next dose due on 02/20. Per discharge summary in December: Aristada 662mg. Medication Compliance: Yes Side effects from medications: No Attending Groups: Yes Review of Systems Acute medical concerns: No Medical Review of Systems: unchanged Review of Systems Review of Systems Denies any shortness of breath, chest pain, headaches, dysuria, abdominal pain or discomfort, nausea, vomiting or diarrhea. Denies fever or chills. Reports left knee pain. Yes all other systems are reviewed and are negative Mental Status Exam Mental Status Exam Narrative: Patient is A+O x4, Wearing casual attire. Ambulate using walker. Mood is anxious- moderate to severe. Speech is within normal limit, normal rate and volume. No ADLs issues. Thought process is somewhat organized, but appeared to be paranoid, full range affect. Thought content is within normal limit, with current +AVH at the assessment, is delusions and paranoia. No CAH. No SI/SIB or HI. Poor judgment and insight. Diagnostics Vital Signs (24Hr): Vital Signs - 24 hr 02/13/25 20:00 02/14/25 08:00 Temperature 98.1 F 97.7 F Pulse Rate 62 67 Respiratory Rate 16 18 Blood Pressure 117/57 L 116/62 Pulse Oximetry 97 96 Oxygen Delivery Method Room Air Room Air BMI result Body Mass Index 45.9 Labs 02/12/25 08:14 Labs: Laboratory Results - last 48 hr 02/12/25 02/12/25 02/12/25 12:12 16:09 21:14 POC Glucose 139 H 169 H 149 H Urine Color Urine Appearance Urine pH Ur Specific [place] Urine Protein Urine Glucose (UA) Urine Ketones Urine Blood Urine Nitrite Ur Leukocyte Esterase Urine RBC Urine WBC Ur Squamous Epith Cells Urine Bacteria Hyaline Casts 02/13/25 02/13/25 02/13/25 06:33 11:26 16:00 POC Glucose 158 H 149 H Urine Color Yellow Urine Appearance Clear Urine pH 5.5 Ur Specific [place] <= 1.005 Urine Protein Negative Urine Glucose (UA) Negative Urine Ketones Negative Urine Blood Negative Urine Nitrite Negative Ur Leukocyte Esterase Moderate (2+) H Urine RBC 0-2 Urine WBC 6-10 H Ur Squamous Epith Cells 0-2 Urine Bacteria None Seen Hyaline Casts 0-2 02/13/25 02/13/25 02/14/25 16:15 20:53 06:38 POC Glucose 150 H 140 H 177 H Urine Color Urine Appearance Urine pH Ur Specific [place] Urine Protein Urine Glucose (UA) Urine Ketones Urine Blood Urine Nitrite Ur Leukocyte Esterase Urine RBC Urine WBC Ur Squamous Epith Cells Urine Bacteria Hyaline Casts Medications Medications Current Medications Acetaminophen (Acetaminophen 325 Mg Tablet) 650 mg PO Q6H PRN PRN Reason: Headache/Pain, Scale 1-10 Last Admin: 02/13/25 08:46 Dose: 650 mg Al Hydroxide/Mg Hydroxide (Magnesium Hydrox/Alum Hydrox 30 Ml Oral.Susp) 30 ml PO Q6H PRN PRN Reason: Heartburn/Nausea Benztropine Mesylate (Benztropine Mesylate 1 Mg Tablet) 1 mg PO BID [facility] Last Admin: 02/14/25 08:14 Dose: 1 mg Brexpiprazole (Brexpiprazole 1 Mg Tablet) 3 mg PO DAILY [facility] Clopidogrel Bisulfate (Clopidogrel Bisulfate 75 Mg Tablet) 75 mg PO DAILY [facility] Last Admin: 02/14/25 08:14 Dose: 75 mg Dextrose (Dextrose 50 % 25 Gm/50 Ml Syringe) 25 gm IVPUSH Q15M PRN; Protocol PRN Reason: per Hypoglycemia Standing Ord. Ergocalciferol (Ergocalciferol (Vitamin D2) 1,250 Mcg Capsule) 1,250 mcg PO Q30D [facility] Fluticasone/Vilanterol (Fluticasone/Vilanterol 100/25 Blst.W.Dev) 1 puff INHALE RDAILY [facility] Last Admin: 02/14/25 08:25 Dose: 1 puff Gabapentin (Gabapentin 100 Mg Capsule) 200 mg PO BID [facility] Last Admin: 02/14/25 08:14 Dose: 200 mg Glucose (Glucose Gel 15 Gm Gel..Gram.) 15 gm PO Q15M PRN; Protocol PRN Reason: per Hypoglycemia Standing Ord. Hydroxyzine HCl (Hydroxyzine Hcl 25 Mg Tablet) 25 mg PO Q6H PRN PRN Reason: mild anxiety Last Admin: 02/13/25 13:34 Dose: 25 mg Insulin Human Lispro (Insulin Lispro 100 Unit/Ml 3 Ml Vial) 0 unit SUBCUT QIDACHS [facility]; Protocol Last Admin: 02/14/25 08:13 Dose: 2 unit Levetiracetam (Levetiracetam 500 Mg Tablet) 1,500 mg PO BID [facility] Last Admin: 02/14/25 08:14 Dose: 1,500 mg Levothyroxine Sodium (Levothyroxine Sodium 100 Mcg Tablet) 100 mcg PO DAILY@0600 [facility] Last Admin: 02/14/25 05:39 Dose: 100 mcg Lidocaine (Lidocaine 4 % Patch Adh..Patch) 3 patch TRANSDERMA DAILY [facility]; Protocol Last Admin: 02/14/25 08:14 Dose: 1 patch Lisinopril (Lisinopril 5 Mg Tablet) 5 mg PO DAILY [facility]; Protocol Last Admin: 02/14/25 08:13 Dose: 5 mg Lorazepam (Lorazepam 0.5 Mg Tablet) 0.5 mg PO BEDTIME [facility] Last Admin: 02/13/25 20:55 Dose: 0.5 mg Magnesium Hydroxide (Milk Of Magnesia 30 Ml Oral.Susp) 30 ml PO DAILY PRN PRN Reason: Constipation Last Admin: 02/13/25 15:50 Dose: 30 ml Metformin HCl (Metformin Hcl Er 500 Mg Tab.Er.24h) 500 mg PO DAILY@1700 [facility] Last Admin: 02/13/25 16:33 Dose: 500 mg Miconazole Nitrate (Miconazole 2 % Extra Thick Cr 56.7 Gm Tube) 1 appl TOPICAL BID [facility]; Protocol Last Admin: 02/14/25 08:16 Dose: 1 appl Mirabegron (Mirabegron 50 Mg Tab.Er.24h) 50 mg PO DAILY [facility] Last Admin: 02/14/25 08:14 Dose: 50 mg Montelukast Sodium (Montelukast Sodium 10 Mg Tablet) 10 mg PO BEDTIME [facility] Last Admin: 02/13/25 20:55 Dose: 10 mg Nicotine (Nicotine 21 Mg Patch.Td24) 21 mg TRANSDERMA DAILY PRN PRN Reason: nicotine craving Nicotine Polacrilex (Nicotine Polacrilex 2 Mg Gum) 2 mg BUCCAL Q2H PRN PRN Reason: Nicotine Cravings Nitroglycerin (Nitroglycerin 0.4 Mg Tab.Subl) 0.4 mg SUBLINGUAL Q5M PRN PRN Reason: Angina Olanzapine (Olanzapine 5 Mg Tablet) 5 mg PO BID PRN PRN Reason: agitation/hallucination Last Admin: 02/13/25 15:50 Dose: 5 mg Omeprazole (Omeprazole 20 Mg Capsule.Dr) 20 mg PO DAILY@0630 [facility] Last Admin: 02/14/25 06:35 Dose: 20 mg Trazodone HCl (Trazodone Hcl 50 Mg Tablet) 50 mg PO BEDTIME MRX1 PRN PRN Reason: Insomnia Last Admin: 02/13/25 21:05 Dose: 50 mg Trazodone HCl (Trazodone Hcl 50 Mg Tablet) 50 mg PO BEDTIME [facility] Allergies Allergies Allergy/AdvReac Type Severity Reaction Status Date / Time ibuprofen Allergy Wheezing Verified 12/05/24 13:10 oxcarbazepine (From Allergy Unknown Verified 03/22/24 20:38 Trileptal) peanut Allergy Unknown Verified 03/22/24 20:38 quetiapine (From Seroquel) Allergy Vomiting Verified 03/22/24 20:38 Assessment & Plan Assessment & Plan (1) Medical clearance for psychiatric admission: Status: Resolved Code(s): Z00.8 - Encounter for other general examination (2) Schizoaffective disorder: Status: Acute Code(s): F25.9 - Schizoaffective disorder, unspecified (3) Seizure disorder: Status: Acute Code(s): G40.909 - Epilepsy, unspecified, not intractable, without status epilepticus (4) FERMÍN (obstructive sleep apnea): Status: Acute Code(s): G47.33 - Obstructive sleep apnea (adult) (pediatric) (5) CKD (chronic kidney disease): Status: Acute Code(s): N18.9 - Chronic kidney disease, unspecified (6) Type 2 diabetes mellitus: Status: Acute Code(s): E11.9 - Type 2 diabetes mellitus without complications (7) Hypothyroidism: Status: Acute Code(s): E03.9 - Hypothyroidism, unspecified (8) HTN (hypertension): Status: Acute Code(s): I10 - Essential (primary) hypertension Plan HPI: Patient is a 64 years old female speaking with history Schizoaffective D/O,,hypothyroidism diabetes, epilepsy, hx of malignant melanoma of skin on the left upper back, migraines, HTN, sleep apnea, dementia with mild with wandering behavior who presented to [facility] ED saying that people are out to get me , and expressing paranoia. She stated that she hears her sister and older voices in her head and telling her to go to other apartments. Patient reported that the voices was laughing at her because she will need to go to inpatient psych again. Sister in law who is her healthcare proxy said that patient's medication has not been working well recently. Reported that the patient has been increase in hallucinations and the voices getting louder. Patient reports that she has been taking medication. However [id number] was not sure if his true. Formulation/clinical reasoning: Increase in psychotic symptoms, paranoid, hallucinations, increasing anxiety. Questions if she has been compliant with medication. History of bipolar, type I disorder, expressing HI toward the sister. Patient will be benefit in restrictive environment, medication management/adjustment/titration, and refer the patient to outpatient psychiatric services. Currently has no OP psychiatrist on board. Hospital course: 02/12/25: Continue with home meds. Keppra 1,500mg BID for seizure D/O Metformin 500mg daily. Cogentin 0.5mg BID Plavix 75mg daily Gabapentin 200mg BID Levothyroxine 100mcg daily Ativan 0.5mg daily at HS Myrbetriq 50mg daily Singulair 10mg daily at HS Lisinopril 5mg daily Hx of Aristada LEZAMA. Need to confirm last dose- per [facility] discharge summary in 12/2024. Currently on Rexulti 2mg. Will titrate up to therapeutic dose to target mood/psychosis. 02/13/25: Patient reports that she has a terrible night that she could sleep. But has no issue with appetite. Reports left knee pain 8.5/10. Reported that her back pain is getting better now. She does not need lidocaine patch for it. Nursing reported that patient told them the patient have neighbor yesterday, was gave to the baby last night. When confirmed with patient during assessment, patient said it was not sure . However, later on she said I am . Reports severe anxiety 12/25. She asked if she can get some trazodone for sleep. She ambulate with a walker, visible at times on the unit. Full range affect. She is paranoid, delusional. We do collateral with outpatient provider to get the information regarding long-acting injection. Patient reports having [facility] manage medication and she cannot recall when was last dose. Trazodone 50mg at HS for insonia Zyprexa 5mg BID PRN for psychosis/agitation. 02/14/25: Patient reports that she slept well last night and feel better, less anxious compared to yesterday even though rate anxiety a 10/24. Denies depression or safety concerns. Report hearing voices of her worker at [employer], her brother and her sister. Patient reports that Zyprexa she received yesterday was helpful. Reviewed with patient regarding meds changes. SW is able to get current meds list from her OP team. Patient was given Aristada on 01/23. Next dose due on 02/20. Per discharge summary in December: Aristada 662mg. Per record obtained today: it appears that patient already received Rexulti up to 4mg. Increase Rexulti to 3mg daily for psychosis. Can increase Rexulti up to 4mg by Monday. Aristada not yet ordered. Will order on the due date. Psychiatric plan: Patient on 5 minute checks for safety. Ambulate using walker. Admitted to S[facility]. CV. Work with treatment team to do collateral with family and OP provider. Sister in law is HCP. Contact the hospitalist regarding hospitalist consultation on admission U/A ordered to rule out UIT as it is confusing with ED note. Keppra level on 02/13. ED record: EKG WNL (02/11/25). Utox Negative A1C 6.3. THS and Free T4 WNL. Medical plan: mild persistent asthma Not in acute exacerbation Continue albuterol as needed, montelukast and Breo daily HTN Continue lisinopril Hypothyroidism Continue levothyroxine Recent TSH 1.64 with normal free T4 FERMÍN Patient does not use CPAP, offered and she declined Epilepsy Continue Keppra No recent seizure reported EPS Continue benztropine NPH Monitor neuro status. T2DM/peripheral neuropathy Continue consistent carb diet Continue metformin and gabapentin Insulin sliding scale Recent A1c 6.3 Stage IIIA chronic kidney disease Baseline creatinine 1.2 Left knee pain Lidoderm patch to left knee daily Patient educated on: diagnosis, medication risk/benefits and therapeutic strategies Informed Consent: understands and further education needed Reason for continued inpatient stay Substantial Risk for: med/psych decompensation Time Spent With Patient Time: Total time managing care of this patient today ____ minutes.
[2025-02-14 11:16] LABS: Glucose, Whole Blood 141 mg/dL (60-115)
[2025-02-14 16:12] LABS: Glucose, Whole Blood 154 mg/dL (60-115)
[2025-02-14 20:00] VITALS: BP 102/56; PULSE 63; RESP 16; TEMP 36.7; O2SAT 97
--- NOTE | 2025-02-14 23:50 | P.PNPSI_ITS ---
Subjective Subjective Reason For Visit: F31.9 Diagnostics Vital Signs (24Hr): Vital Signs - 24 hr 02/14/25 08:00 02/14/25 20:00 Temperature 97.7 F 98.1 F Pulse Rate 67 63 Respiratory Rate 18 16 Blood Pressure 116/62 102/56 L Pulse Oximetry 96 97 Oxygen Delivery Method Room Air Room Air BMI result Body Mass Index 45.9 Labs 02/12/25 08:14 Labs: Laboratory Results - last 48 hr 02/13/25 02/13/25 02/13/25 06:33 11:26 16:00 POC Glucose 158 H 149 H Urine Color Yellow Urine Appearance Clear Urine pH 5.5 Ur Specific Diamond <= 1.005 Urine Protein Negative Urine Glucose (UA) Negative Urine Ketones Negative Urine Blood Negative Urine Nitrite Negative Ur Leukocyte Esterase Moderate (2+) H Urine RBC 0-2 Urine WBC 6-10 H Ur Squamous Epith Cells 0-2 Urine Bacteria None Seen Hyaline Casts 0-2 02/13/25 02/13/25 02/14/25 16:15 20:53 06:38 POC Glucose 150 H 140 H 177 H Urine Color Urine Appearance Urine pH Ur Specific Diamond Urine Protein Urine Glucose (UA) Urine Ketones Urine Blood Urine Nitrite Ur Leukocyte Esterase Urine RBC Urine WBC Ur Squamous Epith Cells Urine Bacteria Hyaline Casts 02/14/25 02/14/25 11:10 16:04 POC Glucose 141 H 154 H Urine Color Urine Appearance Urine pH Ur Specific Diamond Urine Protein Urine Glucose (UA) Urine Ketones Urine Blood Urine Nitrite Ur Leukocyte Esterase Urine RBC Urine WBC Ur Squamous Epith Cells Urine Bacteria Hyaline Casts Medications Medications Current Medications Acetaminophen (Acetaminophen 325 Mg Tablet) 650 mg PO Q6H PRN PRN Reason: Headache/Pain, Scale 1-10 Last Admin: 02/14/25 15:43 Dose: 650 mg Al Hydroxide/Mg Hydroxide (Magnesium Hydrox/Alum Hydrox 30 Ml Oral.Susp) 30 ml PO Q6H PRN PRN Reason: Heartburn/Nausea Benztropine Mesylate (Benztropine Mesylate 1 Mg Tablet) 1 mg PO BID [facility] Last Admin: 02/14/25 20:14 Dose: 1 mg Brexpiprazole (Brexpiprazole 1 Mg Tablet) 3 mg PO DAILY [facility] Clopidogrel Bisulfate (Clopidogrel Bisulfate 75 Mg Tablet) 75 mg PO DAILY [facility] Last Admin: 02/14/25 08:14 Dose: 75 mg Dextrose (Dextrose 50 % 25 Gm/50 Ml Syringe) 25 gm IVPUSH Q15M PRN; Protocol PRN Reason: per Hypoglycemia Standing Ord. Ergocalciferol (Ergocalciferol (Vitamin D2) 1,250 Mcg Capsule) 1,250 mcg PO Q30D [facility] Fluticasone/Vilanterol (Fluticasone/Vilanterol 100/25 Blst.W.Dev) 1 puff INHALE RDAILY [facility] Last Admin: 02/14/25 08:25 Dose: 1 puff Gabapentin (Gabapentin 100 Mg Capsule) 200 mg PO BID [facility] Last Admin: 02/14/25 20:15 Dose: 200 mg Glucose (Glucose Gel 15 Gm Gel..Gram.) 15 gm PO Q15M PRN; Protocol PRN Reason: per Hypoglycemia Standing Ord. Hydroxyzine HCl (Hydroxyzine Hcl 25 Mg Tablet) 25 mg PO Q6H PRN PRN Reason: mild anxiety Last Admin: 02/13/25 13:34 Dose: 25 mg Levetiracetam (Levetiracetam 500 Mg Tablet) 1,500 mg PO BID [facility] Last Admin: 02/14/25 20:15 Dose: 1,500 mg Levothyroxine Sodium (Levothyroxine Sodium 100 Mcg Tablet) 100 mcg PO DAILY@0600 [facility] Last Admin: 02/14/25 05:39 Dose: 100 mcg Lidocaine (Lidocaine 4 % Patch Adh..Patch) 3 patch TRANSDERMA DAILY [facility]; Protocol Last Admin: 02/14/25 08:14 Dose: 1 patch Lisinopril (Lisinopril 5 Mg Tablet) 5 mg PO DAILY [facility]; Protocol Last Admin: 02/14/25 08:13 Dose: 5 mg Lorazepam (Lorazepam 0.5 Mg Tablet) 0.5 mg PO BEDTIME [facility] Last Admin: 02/14/25 20:15 Dose: 0.5 mg Magnesium Hydroxide (Milk Of Magnesia 30 Ml Oral.Susp) 30 ml PO DAILY PRN PRN Reason: Constipation Last Admin: 02/13/25 15:50 Dose: 30 ml Metformin HCl (Metformin Hcl Er 500 Mg Tab.Er.24h) 500 mg PO DAILY@1700 [facility] Last Admin: 02/14/25 16:33 Dose: 500 mg Miconazole Nitrate (Miconazole 2 % Extra Thick Cr 56.7 Gm Tube) 1 appl TOPICAL BID [facility]; Protocol Last Admin: 02/14/25 21:59 Dose: Not Given Mirabegron (Mirabegron 50 Mg Tab.Er.24h) 50 mg PO DAILY [facility] Last Admin: 02/14/25 08:14 Dose: 50 mg Montelukast Sodium (Montelukast Sodium 10 Mg Tablet) 10 mg PO BEDTIME [facility] Last Admin: 02/14/25 20:15 Dose: 10 mg Nicotine (Nicotine 21 Mg Patch.Td24) 21 mg TRANSDERMA DAILY PRN PRN Reason: nicotine craving Nicotine Polacrilex (Nicotine Polacrilex 2 Mg Gum) 2 mg BUCCAL Q2H PRN PRN Reason: Nicotine Cravings Nitroglycerin (Nitroglycerin 0.4 Mg Tab.Subl) 0.4 mg SUBLINGUAL Q5M PRN PRN Reason: Angina Olanzapine (Olanzapine 5 Mg Tablet) 5 mg PO BID PRN PRN Reason: agitation/hallucination Last Admin: 02/13/25 15:50 Dose: 5 mg Omeprazole (Omeprazole 20 Mg Capsule.Dr) 20 mg PO DAILY@0630 [facility] Last Admin: 02/14/25 06:35 Dose: 20 mg Trazodone HCl (Trazodone Hcl 50 Mg Tablet) 50 mg PO BEDTIME MRX1 PRN PRN Reason: Insomnia Last Admin: 02/13/25 21:05 Dose: 50 mg Trazodone HCl (Trazodone Hcl 50 Mg Tablet) 50 mg PO BEDTIME [facility] Last Admin: 02/14/25 20:14 Dose: 50 mg Allergies Allergies Allergy/AdvReac Type Severity Reaction Status Date / Time ibuprofen Allergy Wheezing Verified 12/05/24 13:10 oxcarbazepine (From Allergy Unknown Verified 03/22/24 20:38 Trileptal) peanut Allergy Unknown Verified 03/22/24 20:38 quetiapine (From Seroquel) Allergy Vomiting Verified 03/22/24 20:38 Assessment & Plan Assessment & Plan (1) Medical clearance for psychiatric admission: Status: Resolved Code(s): Z00.8 - Encounter for other general examination (2) Schizoaffective disorder: Status: Acute Code(s): F25.9 - Schizoaffective disorder, unspecified (3) Seizure disorder: Status: Acute Code(s): G40.909 - Epilepsy, unspecified, not intractable, without status epilepticus (4) FERMÍN (obstructive sleep apnea): Status: Acute Code(s): G47.33 - Obstructive sleep apnea (adult) (pediatric) (5) CKD (chronic kidney disease): Status: Acute Code(s): N18.9 - Chronic kidney disease, unspecified (6) Type 2 diabetes mellitus: Status: Acute Code(s): E11.9 - Type 2 diabetes mellitus without complications (7) Hypothyroidism: Status: Acute Code(s): E03.9 - Hypothyroidism, unspecified (8) HTN (hypertension): Status: Acute Code(s): I10 - Essential (primary) hypertension Plan HPI: Patient is a 64 years old female speaking with history Schizoaffective D/O,,hypothyroidism diabetes, epilepsy, hx of malignant melanoma of skin on the left upper back, migraines, HTN, sleep apnea, dementia with mild with wandering behavior who presented to [facility] ED saying that people are out to get me , and expressing paranoia. She stated that she hears her sister and older voices in her head and telling her to go to other apartments. Patient reported that the voices was laughing at her because she will need to go to inpatient psych again. Sister in law who is her healthcare proxy said that patient's medication has not been working well recently. Reported that the patient has been increase in hallucinations and the voices getting louder. Patient reports that she has been taking medication. However [id number] was not sure if his true. Formulation/clinical reasoning: Increase in psychotic symptoms, paranoid, hallucinations, increasing anxiety. Questions if she has been compliant with medication. History of bipolar, type I disorder, expressing HI toward the sister. Patient will be benefit in restrictive environment, medication management/adjustment/titration, and refer the patient to outpatient psychiatric services. Currently has no OP psychiatrist on board. Hospital course: 02/12/25: Continue with home meds. Keppra 1,500mg BID for seizure D/O Metformin 500mg daily. Cogentin 0.5mg BID Plavix 75mg daily Gabapentin 200mg BID Levothyroxine 100mcg daily Ativan 0.5mg daily at HS Myrbetriq 50mg daily Singulair 10mg daily at HS Lisinopril 5mg daily Hx of Aristada LEZAMA. Need to confirm last dose- per [facility] discharge summary in 12/2024. Currently on Rexulti 2mg. Will titrate up to therapeutic dose to target mood/psychosis. 02/13/25: Patient reports that she has a terrible night that she could sleep. But has no issue with appetite. Reports left knee pain 8.510. Reported that her back pain is getting better now. She does not need lidocaine patch for it. Nursing reported that patient told them the patient have neighbor yesterday, was gave to the baby last night. When confirmed with patient during assessment, patient said it was not sure . However, later on she said I am . Reports severe anxiety 12/25. She asked if she can get some trazodone for sleep. She ambulate with a walker, visible at times on the unit. Full range affect. She is paranoid, delusional. We do collateral with outpatient provider to get the information regarding long- acting injection. Patient reports having [facility] manage medication and she cannot recall when was last dose. Trazodone 50mg at HS for insonia Zyprexa 5mg BID PRN for psychosis/agitation. 02/14/25: Patient reports that she slept well last night and feel better, less anxious compared to yesterday even though rate anxiety a /10. Denies depression or safety concerns. Report hearing voices of her worker at [employer], her brother and her sister. Patient reports that Zyprexa she received yesterday was helpful. Reviewed with patient regarding meds changes. SW is able to get current meds list from her OP team. Patient was given Aristada on 01/23. Next dose due on 02/20. Per discharge summary in December: Aristada 662mg. Per record obtained today: it appears that patient already received Rexulti up to 4mg. Increase Rexulti to 3mg daily for psychosis. Can increase Rexulti up to 4mg by Monday. Aristada not yet ordered. Will order on the due date. Psychiatric plan: Patient on 5 minute checks for safety. Ambulate using walker. Admitted to S1. CV. Work with treatment team to do collateral with family and OP provider. Sister in law is HCP. Contact the hospitalist regarding hospitalist consultation on admission U/A ordered to rule out UIT as it is confusing with ED note. Keppra level on 10/30. ED record: EKG WNL (02/11/25). Utox Negative A1C 6.3. THS and Free T4 WNL. Medical plan: mild persistent asthma Not in acute exacerbation Continue albuterol as needed, montelukast and Breo daily HTN Continue lisinopril Hypothyroidism Continue levothyroxine Recent TSH 1.64 with normal free T4 FERMÍN Patient does not use CPAP, offered and she declined Epilepsy Continue Keppra No recent seizure reported EPS Continue benztropine NPH Monitor neuro status. T2DM/peripheral neuropathy Continue consistent carb diet Continue metformin and gabapentin Insulin sliding scale Recent A1c 6.3 Stage IIIA chronic kidney disease Baseline creatinine 1.2 Left knee pain Lidoderm patch to left knee daily Time Spent With Patient Time: Total time managing care of this patient today ____ minutes.
[2025-02-15 06:46] LABS: Glucose, Whole Blood 159 mg/dL (60-115)
[2025-02-15 08:34] VITALS: BP 142/67; PULSE 63; RESP 18; TEMP 36.3; O2SAT 99
[2025-02-15] MEDS: Mirabegron 50 MG TAB.ER.24H PO (08:34)
[2025-02-15] MEDS: Fluticasone/Vilanterol 100/25 BLST.W.DEV 1 PUFF INHALE (08:35)
[2025-02-15] MEDS: Miconazole 2 % Extra Thick Cr 56.7 Gm Tube 1 APPL TOPICAL (08:38)
[2025-02-15 16:18] LABS: Glucose, Whole Blood 186 mg/dL (60-115)
--- NOTE | 2025-02-15 19:24 | P.PNPSI_ITS ---
Subjective Subjective Date of Service: 02/15/25 Reason For Visit: F31.9 Interim History: Chart reviewed, case discussed w/ nursing staff Per pt's nurse- Pt has been self dialoguing, referencing Bernardino Reported that a voice told her to take haldol Took Vistaril w/ minimal effect today, then received prn olanzapine Pt was calm when t/w met w/ her. She reported hearing AH of voices but stated that they've decreased overall. Denied CAH. She reported that the voices want me to go to [employer] . She reported hearing the voice of Bernardino Gurpreet , the former director at [employer]. She states that the voice has been less loud and arrogant. Denies SI/violent ideation Denies med SE MSE: Appearance: Casually dressed. Lying in bed awake. Fair grooming/hygiene. good eye contact Attitude:Cooperative Speech: Fluent and wnl in regard to volume, tone, prosody Motor activity: Calm and without any tics, tremors or dyskinesias. Mood: 'okay' Affect: appropriate Thought process: goal directed Thought content: as noted above. Perception: does not appear to respond to internal stimuli Insight: fair Judgment:fair Medication Compliance: Yes Diagnostics Vital Signs (24Hr): Vital Signs - 24 hr 02/14/25 20:00 02/15/25 08:34 02/15/25 08:34 Temperature 98.1 F 97.3 F Pulse Rate 63 63 Respiratory Rate 16 18 Blood Pressure 102/56 L 142/67 H 142/67 H Pulse Oximetry 97 99 Oxygen Delivery Method Room Air Room Air BMI result Body Mass Index 45.9 Labs 02/12/25 08:14 Labs: Laboratory Results - last 48 hr 02/13/25 02/14/25 02/14/25 20:53 06:38 11:10 POC Glucose 140 H 177 H 141 H 02/14/25 02/15/25 02/15/25 16:04 06:26 16:12 POC Glucose 154 H 159 H 186 H Medications Medications Current Medications Acetaminophen (Acetaminophen 325 Mg Tablet) 650 mg PO Q6H PRN PRN Reason: Headache/Pain, Scale 1-10 Last Admin: 02/14/25 15:43 Dose: 650 mg Al Hydroxide/Mg Hydroxide (Magnesium Hydrox/Alum Hydrox 30 Ml Oral.Susp) 30 ml PO Q6H PRN PRN Reason: Heartburn/Nausea Benztropine Mesylate (Benztropine Mesylate 1 Mg Tablet) 1 mg PO BID [facility] Last Admin: 02/15/25 08:34 Dose: 1 mg Brexpiprazole (Brexpiprazole 1 Mg Tablet) 3 mg PO DAILY [facility] Last Admin: 02/15/25 08:34 Dose: 3 mg Clopidogrel Bisulfate (Clopidogrel Bisulfate 75 Mg Tablet) 75 mg PO DAILY [facility] Last Admin: 02/15/25 08:34 Dose: 75 mg Dextrose (Dextrose 50 % 25 Gm/50 Ml Syringe) 25 gm IVPUSH Q15M PRN; Protocol PRN Reason: per Hypoglycemia Standing Ord. Ergocalciferol (Ergocalciferol (Vitamin D2) 1,250 Mcg Capsule) 1,250 mcg PO Q30D [facility] Fluticasone/Vilanterol (Fluticasone/Vilanterol 100/25 Blst.W.Dev) 1 puff INHALE RDAILY [facility] Last Admin: 02/15/25 08:35 Dose: 1 puff Gabapentin (Gabapentin 100 Mg Capsule) 200 mg PO BID [facility] Last Admin: 02/15/25 08:34 Dose: 200 mg Glucose (Glucose Gel 15 Gm Gel..Gram.) 15 gm PO Q15M PRN; Protocol PRN Reason: per Hypoglycemia Standing Ord. Hydroxyzine HCl (Hydroxyzine Hcl 25 Mg Tablet) 25 mg PO Q6H PRN PRN Reason: mild anxiety Last Admin: 02/15/25 18:00 Dose: 25 mg Levetiracetam (Levetiracetam 500 Mg Tablet) 1,500 mg PO BID [facility] Last Admin: 02/15/25 08:34 Dose: 1,500 mg Levothyroxine Sodium (Levothyroxine Sodium 100 Mcg Tablet) 100 mcg PO DAILY@0600 [facility] Last Admin: 02/15/25 05:30 Dose: 100 mcg Lidocaine (Lidocaine 4 % Patch Adh..Patch) 3 patch TRANSDERMA DAILY PRN; Protocol PRN Reason: Pain, Moderate(Pain Scale 4-6) Lisinopril (Lisinopril 5 Mg Tablet) 5 mg PO DAILY [facility]; Protocol Last Admin: 02/15/25 08:34 Dose: 5 mg Lorazepam (Lorazepam 0.5 Mg Tablet) 0.5 mg PO BEDTIME [facility] Last Admin: 02/14/25 20:15 Dose: 0.5 mg Magnesium Hydroxide (Milk Of Magnesia 30 Ml Oral.Susp) 30 ml PO DAILY PRN PRN Reason: Constipation Last Admin: 02/13/25 15:50 Dose: 30 ml Metformin HCl (Metformin Hcl Er 500 Mg Tab.Er.24h) 500 mg PO DAILY@1700 [facility] Last Admin: 02/15/25 16:30 Dose: 500 mg Miconazole Nitrate (Miconazole 2 % Extra Thick Cr 56.7 Gm Tube) 1 appl TOPICAL BID [facility]; Protocol Last Admin: 02/15/25 08:38 Dose: 1 appl Mirabegron (Mirabegron 50 Mg Tab.Er.24h) 50 mg PO DAILY [facility] Last Admin: 02/15/25 08:34 Dose: 50 mg Montelukast Sodium (Montelukast Sodium 10 Mg Tablet) 10 mg PO BEDTIME [facility] Last Admin: 02/14/25 20:15 Dose: 10 mg Nicotine (Nicotine 21 Mg Patch.Td24) 21 mg TRANSDERMA DAILY PRN PRN Reason: nicotine craving Nicotine Polacrilex (Nicotine Polacrilex 2 Mg Gum) 2 mg BUCCAL Q2H PRN PRN Reason: Nicotine Cravings Nitroglycerin (Nitroglycerin 0.4 Mg Tab.Subl) 0.4 mg SUBLINGUAL Q5M PRN PRN Reason: Angina Olanzapine (Olanzapine 5 Mg Tablet) 5 mg PO BID PRN PRN Reason: agitation/hallucination Last Admin: 02/15/25 14:10 Dose: 5 mg Omeprazole (Omeprazole 20 Mg Capsule.Dr) 20 mg PO DAILY@0630 [facility] Last Admin: 02/15/25 06:24 Dose: 20 mg Trazodone HCl (Trazodone Hcl 50 Mg Tablet) 50 mg PO BEDTIME MRX1 PRN PRN Reason: Insomnia Last Admin: 02/15/25 00:11 Dose: 50 mg Trazodone HCl (Trazodone Hcl 50 Mg Tablet) 50 mg PO BEDTIME [facility] Last Admin: 02/14/25 20:14 Dose: 50 mg Allergies Allergies Allergy/AdvReac Type Severity Reaction Status Date / Time ibuprofen Allergy Wheezing Verified 12/05/24 13:10 oxcarbazepine (From Allergy Unknown Verified 03/22/24 20:38 Trileptal) peanut Allergy Unknown Verified 03/22/24 20:38 quetiapine (From Seroquel) Allergy Vomiting Verified 03/22/24 20:38 Assessment & Plan Assessment & Plan (1) Medical clearance for psychiatric admission: Status: Resolved Code(s): Z00.8 - Encounter for other general examination (2) Schizoaffective disorder: Status: Acute Code(s): F25.9 - Schizoaffective disorder, unspecified (3) Seizure disorder: Status: Acute Code(s): G40.909 - Epilepsy, unspecified, not intractable, without status epilepticus (4) FERMÍN (obstructive sleep apnea): Status: Acute Code(s): G47.33 - Obstructive sleep apnea (adult) (pediatric) (5) CKD (chronic kidney disease): Status: Acute Code(s): N18.9 - Chronic kidney disease, unspecified (6) Type 2 diabetes mellitus: Status: Acute Code(s): E11.9 - Type 2 diabetes mellitus without complications (7) Hypothyroidism: Status: Acute Code(s): E03.9 - Hypothyroidism, unspecified (8) HTN (hypertension): Status: Acute Code(s): I10 - Essential (primary) hypertension Plan Per primary team -Patient is a 64 years old female speaking with history Schizoaffective D/O,,hypothyroidism diabetes, epilepsy, hx of malignant melanoma of skin on the left upper back, migraines, HTN, sleep apnea, dementia with mild with wandering behavior who presented to [facility] ED saying that people are out to get me , and expressing paranoia. She stated that she hears her sister and older voices in her head and telling her to go to other apartments. Patient reported that the voices was laughing at her because she will need to go to inpatient psych again. Sister in law who is her healthcare proxy said that patient's medication has not been working well recently. Reported that the patient has been increase in hallucinations and the voices getting louder. Patient reports that she has been taking medication. However [id number] was not sure if his true. Hospital course: 02/12/25: Continue with home meds. Keppra 1,500mg BID for seizure D/O Metformin 500mg daily. Cogentin 0.5mg BID Plavix 75mg daily Gabapentin 200mg BID Levothyroxine 100mcg daily Ativan 0.5mg daily at HS Myrbetriq 50mg daily Singulair 10mg daily at HS Lisinopril 5mg daily Hx of Aristada LEZAMA. Need to confirm last dose- per [facility] discharge summary in 12/2024. Currently on Rexulti 2mg. Will titrate up to therapeutic dose to target mood/psychosis. 02/13/25: Patient reports that she has a terrible night that she could sleep. But has no issue with appetite. Reports left knee pain 8.5. Reported that her back pain is getting better now. She does not need lidocaine patch for it. Nursing reported that patient told them the patient have neighbor yesterday, was gave to the baby last night. When confirmed with patient during assessment, patient said it was not sure . However, later on she said I am . Reports severe anxiety 12/25. She asked if she can get some trazodone for sleep. She ambulate with a walker, visible at times on the unit. Full range affect. She is paranoid, delusional. We do collateral with outpatient provider to get the information regarding long- acting injection. Patient reports having [facility]NA manage medication and she cannot recall when was last dose. Trazodone 50mg at HS for insonia Zyprexa 5mg BID PRN for psychosis/agitation. 02/14/25: Patient reports that she slept well last night and feel better, less anxious compared to yesterday even though rate anxiety a 7/10. Denies depression or safety concerns. Report hearing voices of her worker at [employer], her brother and her sister. Patient reports that Zyprexa she received yesterday was helpful. Reviewed with patient regarding meds changes. SW is able to get current meds list from her OP team. Patient was given Aristada on 01/23. Next dose due on 02/20. Per discharge summary in December: Aristada 662mg. Per record obtained today: it appears that patient already received Rexulti up to 4mg. Increase Rexulti to 3mg daily for psychosis. Can increase Rexulti up to 4mg by Monday. Aristada not yet ordered. Will order on the due date. 02/15/25: Continue current tx plan Psychiatric plan: Patient on 5 minute checks for safety. Ambulate using walker. Admitted to S1. CV. Work with treatment team to do collateral with family and OP provider. Sister in law is HCP. Contact the hospitalist regarding hospitalist consultation on admission U/A ordered to rule out UIT as it is confusing with ED note. Keppra level on 02/13. ED record: EKG WNL (02/11/25). Utox Negative A1C 6.3. THS and Free T4 WNL. Medical plan: mild persistent asthma Not in acute exacerbation Continue albuterol as needed, montelukast and Breo daily HTN Continue lisinopril Hypothyroidism Continue levothyroxine Recent TSH 1.64 with normal free T4 FERMÍN Patient does not use CPAP, offered and she declined Epilepsy Continue Keppra No recent seizure reported EPS Continue benztropine NPH Monitor neuro status. T2DM/peripheral neuropathy Continue consistent carb diet Continue metformin and gabapentin Insulin sliding scale Recent A1c 6.3 Stage IIIA chronic kidney disease Baseline creatinine 1.2 Left knee pain Lidoderm patch to left knee daily Patient educated on: diagnosis, medication risk/benefits and therapeutic strategies Informed Consent: understands and further education needed Reason for continued inpatient stay Substantial Risk for: med/psych decompensation Time Spent With Patient Time: Total time managing care of this patient today ____ minutes.
[2025-02-15 19:55] LABS: Glucose, Whole Blood 194 mg/dL (60-115)
[2025-02-15 20:00] VITALS: BP 103/54; PULSE 59; RESP 16; TEMP 36.4; O2SAT 95
[2025-02-16 01:03] LABS: Levetiracetam Keppra 65.3 mcg/mL (6.0-46.0)
[2025-02-16 06:41] LABS: Glucose, Whole Blood 116 mg/dL (60-115)
[2025-02-16] MEDS: Milk of Magnesia 30 ML ORAL.SUSP PO (06:45)
[2025-02-16 08:00] VITALS: BP 144/75; PULSE 89; RESP 16; TEMP 36.8; O2SAT 98
[2025-02-16] MEDS: Mirabegron 50 MG TAB.ER.24H PO (09:56)
--- NOTE | 2025-02-16 15:36 | HO.PSYCHPN ---
Subjective Subjective Date of Service: 02/16/25 Reason For Visit: F31.9 Interim History: Chart reviewed, case discussed w/ nursing staff Per nursing report- pt c/o constipation, reports taking 2 Senna qhs + Miralax qd at home. She had 2 bms today after MOM and prune juice. Pt asked her nurse for olanzapine for the voices shortly before t/w met w/ her. T/W ordered olanzapine 5 mg prn, which pt received. T/W met w/ her in the milieu, where she was coloring at a table w/ peers. She c/o issues w/ her bowels, asked for the above bowel regimen, which t/w ordered. MSE: Appearance: Casual. fair grooming/hygiene. good eye contact Attitude: Cooperative Speech: Fluent and wnl in regard to volume, tone, prosody Motor activity: Calm and without any tics, tremors or dyskinesias. Mood: 'okay' Affect: blunted Thought process: goal directed Thought content: as noted above. Perception: does not appear to respond to internal stimuli Insight: fair Judgment:fair Medication Compliance: Yes Diagnostics Vital Signs (24Hr): Vital Signs - 24 hr 02/15/25 20:00 02/16/25 08:00 Temperature 97.5 F 98.2 F Pulse Rate 59 89 Respiratory Rate 16 16 Blood Pressure 103/54 L 144/75 H Pulse Oximetry 95 98 Oxygen Delivery Method Room Air BMI result Body Mass Index 45.9 Labs 02/12/25 08:14 Labs: Laboratory Results - last 48 hr 02/13/25 02/15/25 02/15/25 07:25 06:26 16:12 POC Glucose 159 H 186 H Levetiracetam 65.3 H 02/15/25 02/16/25 19:49 06:33 POC Glucose 194 H 116 H Levetiracetam Medications Medications Current Medications Acetaminophen (Acetaminophen 325 Mg Tablet) 650 mg PO Q6H PRN PRN Reason: Headache/Pain, Scale 1-10 Last Admin: 02/15/25 23:41 Dose: 650 mg Al Hydroxide/Mg Hydroxide (Magnesium Hydrox/Alum Hydrox 30 Ml Oral.Susp) 30 ml PO Q6H PRN PRN Reason: Heartburn/Nausea Benztropine Mesylate (Benztropine Mesylate 1 Mg Tablet) 1 mg PO BID [facility] Last Admin: 02/16/25 08:53 Dose: 1 mg Brexpiprazole (Brexpiprazole 1 Mg Tablet) 3 mg PO DAILY [facility] Last Admin: 02/16/25 08:52 Dose: 3 mg Clopidogrel Bisulfate (Clopidogrel Bisulfate 75 Mg Tablet) 75 mg PO DAILY [facility] Last Admin: 02/16/25 08:53 Dose: 75 mg Dextrose (Dextrose 50 % 25 Gm/50 Ml Syringe) 25 gm IVPUSH Q15M PRN; Protocol PRN Reason: per Hypoglycemia Standing Ord. Ergocalciferol (Ergocalciferol (Vitamin D2) 1,250 Mcg Capsule) 1,250 mcg PO Q30D [facility] Fluticasone/Vilanterol (Fluticasone/Vilanterol 100/25 Blst.W.Dev) 1 puff INHALE RDAILY [facility] Last Admin: 02/16/25 09:54 Dose: Not Given Gabapentin (Gabapentin 100 Mg Capsule) 200 mg PO BID [facility] Last Admin: 02/16/25 08:53 Dose: 200 mg Glucose (Glucose Gel 15 Gm Gel..Gram.) 15 gm PO Q15M PRN; Protocol PRN Reason: per Hypoglycemia Standing Ord. Hydroxyzine HCl (Hydroxyzine Hcl 25 Mg Tablet) 25 mg PO Q6H PRN PRN Reason: mild anxiety Last Admin: 02/15/25 23:42 Dose: 25 mg Levetiracetam (Levetiracetam 500 Mg Tablet) 1,500 mg PO BID [facility] Last Admin: 02/16/25 08:53 Dose: 1,500 mg Levothyroxine Sodium (Levothyroxine Sodium 100 Mcg Tablet) 100 mcg PO DAILY@0600 [facility] Last Admin: 02/16/25 05:39 Dose: 100 mcg Lidocaine (Lidocaine 4 % Patch Adh..Patch) 3 patch TRANSDERMA DAILY PRN; Protocol PRN Reason: Pain, Moderate(Pain Scale 4-6) Lisinopril (Lisinopril 5 Mg Tablet) 5 mg PO DAILY [facility]; Protocol Last Admin: 02/16/25 08:53 Dose: 5 mg Lorazepam (Lorazepam 0.5 Mg Tablet) 0.5 mg PO BEDTIME [facility] Last Admin: 02/15/25 20:22 Dose: 0.5 mg Magnesium Hydroxide (Milk Of Magnesia 30 Ml Oral.Susp) 30 ml PO DAILY PRN PRN Reason: Constipation Last Admin: 02/16/25 06:45 Dose: 30 ml Metformin HCl (Metformin Hcl Er 500 Mg Tab.Er.24h) 500 mg PO DAILY@1700 [facility] Last Admin: 02/15/25 16:30 Dose: 500 mg Miconazole Nitrate (Miconazole 2 % Extra Thick Cr 56.7 Gm Tube) 1 appl TOPICAL BID [facility]; Protocol Last Admin: 02/16/25 15:15 Dose: Not Given Mirabegron (Mirabegron 50 Mg Tab.Er.24h) 50 mg PO DAILY [facility] Last Admin: 02/16/25 09:56 Dose: 50 mg Montelukast Sodium (Montelukast Sodium 10 Mg Tablet) 10 mg PO BEDTIME [facility] Last Admin: 02/15/25 20:22 Dose: 10 mg Nicotine (Nicotine 21 Mg Patch.Td24) 21 mg TRANSDERMA DAILY PRN PRN Reason: nicotine craving Nicotine Polacrilex (Nicotine Polacrilex 2 Mg Gum) 2 mg BUCCAL Q2H PRN PRN Reason: Nicotine Cravings Nitroglycerin (Nitroglycerin 0.4 Mg Tab.Subl) 0.4 mg SUBLINGUAL Q5M PRN PRN Reason: Angina Olanzapine (Olanzapine 5 Mg Tablet) 5 mg PO BID PRN PRN Reason: agitation/hallucination Last Admin: 02/16/25 12:44 Dose: 5 mg Olanzapine (Olanzapine 5 Mg Tablet) 5 mg PO DAILY PRN PRN Reason: agitation and/or AH Last Admin: 02/16/25 15:14 Dose: 5 mg Omeprazole (Omeprazole 20 Mg Capsule.Dr) 20 mg PO DAILY@0630 [facility] Last Admin: 02/16/25 06:23 Dose: 20 mg Trazodone HCl (Trazodone Hcl 50 Mg Tablet) 50 mg PO BEDTIME MRX1 PRN PRN Reason: Insomnia Last Admin: 02/15/25 23:41 Dose: 50 mg Trazodone HCl (Trazodone Hcl 50 Mg Tablet) 50 mg PO BEDTIME [facility] Last Admin: 02/15/25 20:22 Dose: 50 mg Allergies Allergies Allergy/AdvReac Type Severity Reaction Status Date / Time ibuprofen Allergy Wheezing Verified 12/05/24 13:10 oxcarbazepine (From Allergy Unknown Verified 03/22/24 20:38 Trileptal) peanut Allergy Unknown Verified 03/22/24 20:38 quetiapine (From Seroquel) Allergy Vomiting Verified 03/22/24 20:38 Assessment & Plan Assessment & Plan (1) Medical clearance for psychiatric admission: Status: Resolved Code(s): Z00.8 - Encounter for other general examination (2) Schizoaffective disorder: Status: Acute Code(s): F25.9 - Schizoaffective disorder, unspecified (3) Seizure disorder: Status: Acute Code(s): G40.909 - Epilepsy, unspecified, not intractable, without status epilepticus (4) FERMÍN (obstructive sleep apnea): Status: Acute Code(s): G47.33 - Obstructive sleep apnea (adult) (pediatric) (5) CKD (chronic kidney disease): Status: Acute Code(s): N18.9 - Chronic kidney disease, unspecified (6) Type 2 diabetes mellitus: Status: Acute Code(s): E11.9 - Type 2 diabetes mellitus without complications (7) Hypothyroidism: Status: Acute Code(s): E03.9 - Hypothyroidism, unspecified (8) HTN (hypertension): Status: Acute Code(s): I10 - Essential (primary) hypertension Plan Per primary team -Patient is a 64 years old female speaking with history Schizoaffective D/O,,hypothyroidism diabetes, epilepsy, hx of malignant melanoma of skin on the left upper back, migraines, HTN, sleep apnea, dementia with mild with wandering behavior who presented to [facility] ED saying that people are out to get me , and expressing paranoia. She stated that she hears her sister and older voices in her head and telling her to go to other apartments. Patient reported that the voices was laughing at her because she will need to go to inpatient psych again. Sister in law who is her healthcare proxy said that patient's medication has not been working well recently. Reported that the patient has been increase in hallucinations and the voices getting louder. Patient reports that she has been taking medication. However [id number] was not sure if his true. Hospital course: 02/12/25: Continue with home meds. Keppra 1,500mg BID for seizure D/O Metformin 500mg daily. Cogentin 0.5mg BID Plavix 75mg daily Gabapentin 200mg BID Levothyroxine 100mcg daily Ativan 0.5mg daily at HS Myrbetriq 50mg daily Singulair 10mg daily at HS Lisinopril 5mg daily Hx of Aristada LEZAMA. Need to confirm last dose- per [facility] summary in 12/2024. Currently on Rexulti 2mg. Will titrate up to therapeutic dose to target mood/psychosis. 02/13/25: Patient reports that she has a terrible night that she could sleep. But has no issue with appetite. Reports left knee pain 8.510. Reported that her back pain is getting better now. She does not need lidocaine patch for it. Nursing reported that patient told them the patient have neighbor yesterday, was gave to the baby last night. When confirmed with patient during assessment, patient said it was not sure . However, later on she said I am . Reports severe anxiety 12/25. She asked if she can get some trazodone for sleep. She ambulate with a walker, visible at times on the unit. Full range affect. She is paranoid, delusional. We do collateral with outpatient provider to get the information regarding long-acting injection. Patient reports having [facility] manage medication and she cannot recall when was last dose. Trazodone 50mg at HS for insonia Zyprexa 5mg BID PRN for psychosis/agitation. 02/14/25: Patient reports that she slept well last night and feel better, less anxious compared to yesterday even though rate anxiety a 7/10. Denies depression or safety concerns. Report hearing voices of her worker at [employer], her brother and her sister. Patient reports that Zyprexa she received yesterday was helpful. Reviewed with patient regarding meds changes. SW is able to get current meds list from her OP team. Patient was given Aristada on 01/23. Next dose due on 02/20. Per discharge summary in December: Aristada 662mg. Per record obtained today: it appears that patient already received Rexulti up to 4mg. Increase Rexulti to 3mg daily for psychosis. Can increase Rexulti up to 4mg by Monday. Aristada not yet ordered. Will order on the due date. 02/15/25: Continue current tx plan 02/16/25: Ordered 5 mg olanzapine prn for AH/agitation, Senna qhs for constipation and MiraLax prn for constipation. Otherwise continue current tx plan Psychiatric plan: Patient on 5 minute checks for safety. Ambulate using walker. Admitted to S1. CV. Work with treatment team to do collateral with family and OP provider. Sister in law is HCP. Contact the hospitalist regarding hospitalist consultation on admission U/A ordered to rule out UIT as it is confusing with ED note. Keppra level on 02/13. ED record: EKG WNL (02/11/25). Utox Negative A1C 6.3. THS and Free T4 WNL. Medical plan: mild persistent asthma Not in acute exacerbation Continue albuterol as needed, montelukast and Breo daily HTN Continue lisinopril Hypothyroidism Continue levothyroxine Recent TSH 1.64 with normal free T4 FERMÍN Patient does not use CPAP, offered and she declined Epilepsy Continue Keppra No recent seizure reported EPS Continue benztropine NPH Monitor neuro status. T2DM/peripheral neuropathy Continue consistent carb diet Continue metformin and gabapentin Insulin sliding scale Recent A1c 6.3 Stage IIIA chronic kidney disease Baseline creatinine 1.2 Left knee pain Lidoderm patch to left knee daily Reason for continued inpatient stay Substantial Risk for: med/psych decompensation Time Spent With Patient Time: Total time managing care of this patient today ____ minutes.
[2025-02-16 15:59] LABS: Glucose, Whole Blood 169 mg/dL (60-115)
[2025-02-16 20:00] VITALS: BP 146/69; PULSE 67; RESP 16; TEMP 36.4; O2SAT 98
[2025-02-16 20:32] LABS: Glucose, Whole Blood 182 mg/dL (60-115)
[2025-02-17 06:42] LABS: Glucose, Whole Blood 131 mg/dL (60-115)
[2025-02-17 08:00] VITALS: BP 129/70; PULSE 75; RESP 18; TEMP 36.5; O2SAT 97
[2025-02-17] MEDS: Mirabegron 50 MG TAB.ER.24H PO (08:51)
--- NOTE | 2025-02-17 12:29 | HO.PSYCHPN ---
Subjective Subjective Date of Service: 02/17/25 Reason For Visit: F31.9 Subjective Notes: Conditional Voluntary Interim History: Pt slept through the night. Pt reports she continues to hear voices, they are always there but at times they are worse. No SI/HI. She reports olanzapine seems helpful and wonders if she can have higher dose of olanzapine. She currently on 3 antipsychotics- aristada, rexulti. very minimal response to these combination. We discussed- switching to one antipsychotic that may be more effective. She has been on risperidone- which she reports was not effective. She had been on haldol- which actually reports was helpful but she is not sure if she had side effects. She does have some active tremors. We had discussed trying prolixin- however, pt reports she feels olanzapine seems to be helpful and would like to titrate dose of this medications. we discussed metabolic side effects including weight gain, worsening of DM (A1c 6.4%). She still want to go with olanzapine. Review of Systems Review of Systems Denies any shortness of breath, chest pain, headaches, dysuria, abdominal pain or discomfort, nausea, vomiting or diarrhea. Denies fever or chills. Reports left knee pain. Yes all other systems are reviewed and are negative Mental Status Exam Mental Status Exam Narrative: Appearance: Casual. fair grooming/hygiene. good eye contact Attitude: Cooperative Speech: Fluent and wnl in regard to volume, tone, prosody Motor activity: Calm and without any tics, tremors or dyskinesias. Mood: 'okay' Affect: blunted Thought process: goal directed Thought content: as noted above. Perception: does not appear to respond to internal stimuli Insight: fair Judgment:fair Diagnostics Vital Signs (24Hr): Vital Signs - 24 hr 02/16/25 20:00 02/17/25 08:00 Temperature 97.5 F 97.7 F Pulse Rate 67 75 Respiratory Rate 16 18 Blood Pressure 146/69 H 129/70 Pulse Oximetry 98 97 Oxygen Delivery Method Room Air Room Air BMI result Body Mass Index 45.9 Labs 02/19/25 08:03 Labs: Laboratory Results - last 48 hr 02/13/25 02/15/25 02/15/25 07:25 16:12 19:49 POC Glucose 186 H 194 H Levetiracetam 65.3 H 02/16/25 02/16/25 02/16/25 06:33 15:52 20:27 POC Glucose 116 H 169 H 182 H Levetiracetam 02/17/25 06:08 POC Glucose 131 H Levetiracetam Medications Medications Current Medications Acetaminophen (Acetaminophen 325 Mg Tablet) 650 mg PO Q6H PRN PRN Reason: Headache/Pain, Scale 1-10 Last Admin: 02/15/25 23:41 Dose: 650 mg Al Hydroxide/Mg Hydroxide (Magnesium Hydrox/Alum Hydrox 30 Ml Oral.Susp) 30 ml PO Q6H PRN PRN Reason: Heartburn/Nausea Benztropine Mesylate (Benztropine Mesylate 1 Mg Tablet) 1 mg PO BID [facility] Last Admin: 02/17/25 08:51 Dose: 1 mg Brexpiprazole (Brexpiprazole 1 Mg Tablet) 3 mg PO DAILY [facility] Last Admin: 02/17/25 08:51 Dose: 3 mg Clopidogrel Bisulfate (Clopidogrel Bisulfate 75 Mg Tablet) 75 mg PO DAILY [facility] Last Admin: 02/17/25 08:51 Dose: 75 mg Dextrose (Dextrose 50 % 25 Gm/50 Ml Syringe) 25 gm IVPUSH Q15M PRN; Protocol PRN Reason: per Hypoglycemia Standing Ord. Ergocalciferol (Ergocalciferol (Vitamin D2) 1,250 Mcg Capsule) 1,250 mcg PO Q30D [facility] Fluticasone/Vilanterol (Fluticasone/Vilanterol 100/25 Blst.W.Dev) 1 puff INHALE RDAILY [facility] Last Admin: 02/17/25 08:50 Dose: Not Given Gabapentin (Gabapentin 100 Mg Capsule) 200 mg PO BID [facility] Last Admin: 02/17/25 08:51 Dose: 200 mg Glucose (Glucose Gel 15 Gm Gel..Gram.) 15 gm PO Q15M PRN; Protocol PRN Reason: per Hypoglycemia Standing Ord. Hydroxyzine HCl (Hydroxyzine Hcl 25 Mg Tablet) 25 mg PO Q6H PRN PRN Reason: mild anxiety Last Admin: 02/15/25 23:42 Dose: 25 mg Levetiracetam (Levetiracetam 500 Mg Tablet) 1,500 mg PO BID [facility] Last Admin: 02/17/25 08:51 Dose: 1,500 mg Levothyroxine Sodium (Levothyroxine Sodium 100 Mcg Tablet) 100 mcg PO DAILY@0600 [facility] Last Admin: 02/17/25 06:05 Dose: 100 mcg Lidocaine (Lidocaine 4 % Patch Adh..Patch) 3 patch TRANSDERMA DAILY PRN; Protocol PRN Reason: Pain, Moderate(Pain Scale 4-6) Lisinopril (Lisinopril 5 Mg Tablet) 5 mg PO DAILY [facility]; Protocol Last Admin: 02/17/25 08:52 Dose: 5 mg Lorazepam (Lorazepam 0.5 Mg Tablet) 0.5 mg PO BEDTIME [facility] Last Admin: 02/16/25 20:21 Dose: 0.5 mg Magnesium Hydroxide (Milk Of Magnesia 30 Ml Oral.Susp) 30 ml PO DAILY PRN PRN Reason: Constipation Last Admin: 02/16/25 06:45 Dose: 30 ml Metformin HCl (Metformin Hcl Er 500 Mg Tab.Er.24h) 500 mg PO DAILY@1700 [facility] Last Admin: 02/16/25 16:40 Dose: 500 mg Miconazole Nitrate (Miconazole 2 % Extra Thick Cr 56.7 Gm Tube) 1 appl TOPICAL BID [facility]; Protocol Last Admin: 02/17/25 08:53 Dose: Not Given Mirabegron (Mirabegron 50 Mg Tab.Er.24h) 50 mg PO DAILY [facility] Last Admin: 02/17/25 08:51 Dose: 50 mg Montelukast Sodium (Montelukast Sodium 10 Mg Tablet) 10 mg PO BEDTIME [facility] Last Admin: 02/16/25 20:21 Dose: 10 mg Nicotine (Nicotine 21 Mg Patch.Td24) 21 mg TRANSDERMA DAILY PRN PRN Reason: nicotine craving Nicotine Polacrilex (Nicotine Polacrilex 2 Mg Gum) 2 mg BUCCAL Q2H PRN PRN Reason: Nicotine Cravings Nitroglycerin (Nitroglycerin 0.4 Mg Tab.Subl) 0.4 mg SUBLINGUAL Q5M PRN PRN Reason: Angina Olanzapine (Olanzapine 5 Mg Tablet) 5 mg PO BID PRN PRN Reason: agitation/hallucination Last Admin: 02/16/25 12:44 Dose: 5 mg Olanzapine (Olanzapine 5 Mg Tablet) 5 mg PO DAILY PRN PRN Reason: agitation and/or AH Last Admin: 02/16/25 15:14 Dose: 5 mg Omeprazole (Omeprazole 20 Mg Capsule.Dr) 20 mg PO DAILY@0630 [facility] Last Admin: 02/17/25 06:56 Dose: 20 mg Polyethylene Glycol (Polyethylene Glycol 3350 17 Gm Powd.Pack) 17 gm PO DAILY PRN PRN Reason: Constipation Senna (Sennosides 8.6 Mg Tablet) 17.2 mg PO DAILY PRN PRN Reason: Constipation Trazodone HCl (Trazodone Hcl 50 Mg Tablet) 50 mg PO BEDTIME MRX1 PRN PRN Reason: Insomnia Last Admin: 02/15/25 23:41 Dose: 50 mg Trazodone HCl (Trazodone Hcl 50 Mg Tablet) 50 mg PO BEDTIME [facility] Last Admin: 02/16/25 20:21 Dose: 50 mg Allergies Allergies Allergy/AdvReac Type Severity Reaction Status Date / Time ibuprofen Allergy Wheezing Verified 12/05/24 13:10 oxcarbazepine (From Allergy Unknown Verified 03/22/24 20:38 Trileptal) peanut Allergy Unknown Verified 03/22/24 20:38 quetiapine (From Seroquel) Allergy Vomiting Verified 03/22/24 20:38 Assessment & Plan Assessment & Plan (1) Schizoaffective disorder: Status: Acute Code(s): F25.9 - Schizoaffective disorder, unspecified (2) Seizure disorder: Status: Acute Code(s): G40.909 - Epilepsy, unspecified, not intractable, without status epilepticus (3) FERMÍN (obstructive sleep apnea): Status: Acute Code(s): G47.33 - Obstructive sleep apnea (adult) (pediatric) (4) CKD (chronic kidney disease): Status: Acute Code(s): N18.9 - Chronic kidney disease, unspecified (5) Type 2 diabetes mellitus: Status: Acute Code(s): E11.9 - Type 2 diabetes mellitus without complications (6) Hypothyroidism: Status: Acute Code(s): E03.9 - Hypothyroidism, unspecified (7) HTN (hypertension): Status: Acute Code(s): I10 - Essential (primary) hypertension Plan Per primary team -Patient is a 64 years old female speaking with history Schizoaffective D/O,,hypothyroidism diabetes, epilepsy, hx of malignant melanoma of skin on the left upper back, migraines, HTN, sleep apnea, dementia with mild with wandering behavior who presented to [facility] saying that people are out to get me , and expressing paranoia. She stated that she hears her sister and older voices in her head and telling her to go to other apartments. Patient reported that the voices was laughing at her because she will need to go to inpatient psych again. Sister in law who is her healthcare proxy said that patient's medication has not been working well recently. Reported that the patient has been increase in hallucinations and the voices getting louder. Patient reports that she has been taking medication. However [id number] was not sure if his true. Hospital course: 02/12/25: Continue with home meds. Keppra 1,500mg BID for seizure D/O Metformin 500mg daily. Cogentin 0.5mg BID Plavix 75mg daily Gabapentin 200mg BID Levothyroxine 100mcg daily Ativan 0.5mg daily at HS Myrbetriq 50mg daily Singulair 10mg daily at HS Lisinopril 5mg daily Hx of Aristada LEZAMA. Need to confirm last dose- per [facility] [place] summary in 12/2024. Currently on Rexulti 2mg. Will titrate up to therapeutic dose to target mood/psychosis. 02/13/25: Patient reports that she has a terrible night that she could sleep. But has no issue with appetite. Reports left knee pain 8.510. Reported that her back pain is getting better now. She does not need lidocaine patch for it. Nursing reported that patient told them the patient have neighbor yesterday, was gave to the baby last night. When confirmed with patient during assessment, patient said it was not sure . However, later on she said I am . Reports severe anxiety 910. She asked if she can get some trazodone for sleep. She ambulate with a walker, visible at times on the unit. Full range affect. She is paranoid, delusional. We do collateral with outpatient provider to get the information regarding long-acting injection. Patient reports having [facility] manage medication and she cannot recall when was last dose. Trazodone 50mg at HS for insonia Zyprexa 5mg BID PRN for psychosis/agitation. 02/14/25: Patient reports that she slept well last night and feel better, less anxious compared to yesterday even though rate anxiety a 7/10. Denies depression or safety concerns. Report hearing voices of her worker at [employer], her brother and her sister. Patient reports that Zyprexa she received yesterday was helpful. Reviewed with patient regarding meds changes. SW is able to get current meds list from her OP team. Patient was given Aristada on 01/23. Next dose due on 02/20. Per discharge summary in December: Aristada 662mg. Per record obtained today: it appears that patient already received Rexulti up to 4mg. Increase Rexulti to 3mg daily for psychosis. Can increase Rexulti up to 4mg by Monday. Aristada not yet ordered. Will order on the due date. 02/15/25: Continue current tx plan 02/16/25: Ordered 5 mg olanzapine prn for AH/agitation, Senna qhs for constipation and MiraLax prn for constipation. Otherwise continue current tx plan 02/17 minimal therapeutic benefit ith aristada and rexulti. recommend switching to another antipsychotic and trying monotherapy- options include clozapine or prolixin. However, pt wants to try olanzapine as currently has been using it as prn and finds it helpful. we did discussed concerns about metabolic side effects- weight gain, insulin resistance. pt still want to try olanzapine. will lower and taper rexulti, will hold on aristada. schedule olanzapine 10mg po qhs- continue to titrate. Her A1C 6.4%- she is on metformin ER 500mg po daily- will increase to 1000mg prophylactically. Psychiatric plan: Patient on 5 minute checks for safety. Ambulate using walker. Admitted to S1. CV. Work with treatment team to do collateral with family and OP provider. Sister in law is HCP. Contact the hospitalist regarding hospitalist consultation on admission U/A ordered to rule out UIT as it is confusing with ED note. Keppra level on 02/13. ED record: EKG WNL (02/11/25). Utox Negative A1C 6.3. THS and Free T4 WNL. Medical plan: mild persistent asthma Not in acute exacerbation Continue albuterol as needed, montelukast and Breo daily HTN Continue lisinopril Hypothyroidism Continue levothyroxine Recent TSH 1.64 with normal free T4 FERMÍN Patient does not use CPAP, offered and she declined Epilepsy Continue Keppra No recent seizure reported EPS Continue benztropine NPH Monitor neuro status. T2DM/peripheral neuropathy Continue consistent carb diet Continue metformin and gabapentin Insulin sliding scale Recent A1c 6.3 Stage IIIA chronic kidney disease Baseline creatinine 1.2 Left knee pain Lidoderm patch to left knee daily Reason for continued inpatient stay Substantial Risk for: inability to function Time Spent With Patient Time: Total time managing care of this patient today ____ minutes.
[2025-02-17 15:58] LABS: Alanine Aminotransferase 22 U/L (0-31); Albumin Level 4.2 g/dL (3.5-5.0); Alkaline Phosphatase 86 U/L (39-117); Anion Gap 11 (12-20); Aspartate Amino Transferase 19 U/L (5-31); Blood Urea Nitrogen 21 mg/dL (9-16); Calcium 9.0 mg/dL (8.4-10.2); Carbon Dioxide 28 mmol/L (22-29); Chloride 103 mmol/L (96-108); Creatinine Clr Calc Pharmacy 66.6; Estimated Glomerular Filt Rate > 60; Potassium 4.3 mmol/L (3.3-5.1); Sodium 138 mmol/L (135-145); Total Protein 6.7 g/dL (6.5-8.0)
[2025-02-17 16:26] LABS: Glucose, Whole Blood 180 mg/dL (60-115)
[2025-02-17 20:00] VITALS: BP 131/60; PULSE 70; RESP 16; TEMP 36.8; O2SAT 96
[2025-02-18 06:49] LABS: Glucose, Whole Blood 126 mg/dL (60-115)
[2025-02-18 08:00] VITALS: BP 130/62; PULSE 92; RESP 18; TEMP 2.5; TEMP 36.5; O2SAT 96
[2025-02-18] MEDS: Mirabegron 50 MG TAB.ER.24H PO (08:42)
--- NOTE | 2025-02-18 14:51 | HO.PM.IMPN ---
Subjective Subjective Date of Service: 02/18/25 Interval History: Patient is being seen for right knee and right hip pain as well as left knee pain. Patient also reports right neck pain. She had a fall a few years ago, has osteoarthritis, previously took scheduled Tylenol at home as well as muscle rubs. She is ambulating at baseline with a walker. Full range of motion. No indication for imaging at this time as she has had no recent falls or trauma. Review of Systems Denies any shortness of breath, chest pain, headaches, dysuria, abdominal pain or discomfort, nausea, vomiting or diarrhea. Denies fever or chills. Physical Exam Exam: Exam: CONST: Alert and oriented, in NAD. Well nourished HEENT: Normocephalic, atraumatic, MMM, Eyes clear, Neck supple RESP: Lungs clear, RRR even and regular HEART:,RRR, S1, S2. No murmur, no edema GI:Abdomen Soft NT, ND. + BS times four. Obese abdomen :Deferred SKIN: Warm dry and intact, no visible lesions or rashes NEURO:CN II-XII Intact bilaterally, Sensation intact. Speech clear Musculoskeletal: Ambulating at baseline. Full range of motion PSYCH: Normal affect Vital Signs: Vital Signs: Last Vital Signs Temp 36.5 F L 02/18/25 08:00 Pulse 92 02/18/25 08:00 Resp 18 02/18/25 08:00 BP 130/62 02/18/25 08:00 Pulse Ox 96 02/18/25 08:00 O2 Del Method Room Air 02/18/25 08:00 BMI result Body Mass Index 45.9 Objective Data Active Medications Acetaminophen (Acetaminophen 325 Mg Tablet) 650 mg PO Q6H PRN PRN Reason: Headache/Pain, Scale 1-10 Last Admin: 02/15/25 23:41 Dose: 650 mg Documented By: KENYATTA Al Hydroxide/Mg Hydroxide (Magnesium Hydrox/Alum Hydrox 30 Ml Oral.Susp) 30 ml PO Q6H PRN PRN Reason: Heartburn/Nausea Brexpiprazole (Brexpiprazole 2 Mg Tablet) 2 mg PO DAILY [facility] Last Admin: 02/18/25 08:43 Dose: 2 mg Documented By: VIVIANA Clopidogrel Bisulfate (Clopidogrel Bisulfate 75 Mg Tablet) 75 mg PO DAILY [facility] Last Admin: 02/18/25 08:46 Dose: 75 mg Documented By: VIVIANA Dextrose (Dextrose 50 % 25 Gm/50 Ml Syringe) 25 gm IVPUSH Q15M PRN; Protocol PRN Reason: per Hypoglycemia Standing Ord. Ergocalciferol (Ergocalciferol (Vitamin D2) 1,250 Mcg Capsule) 1,250 mcg PO Q30D [facility] Fluticasone/Vilanterol (Fluticasone/Vilanterol 100/25 Blst.W.Dev) 1 puff INHALE RDAILY [facility] Last Admin: 02/18/25 08:43 Dose: Not Given Documented By: VIVIANA Non-Admin Reason: Patient Refused Gabapentin (Gabapentin 100 Mg Capsule) 200 mg PO BID [facility] Last Admin: 02/18/25 08:43 Dose: 200 mg Documented By: VIVIANA Glucose (Glucose Gel 15 Gm Gel..Gram.) 15 gm PO Q15M PRN; Protocol PRN Reason: per Hypoglycemia Standing Ord. Hydroxyzine HCl (Hydroxyzine Hcl 25 Mg Tablet) 25 mg PO Q6H PRN PRN Reason: mild anxiety Last Admin: 02/15/25 23:42 Dose: 25 mg Documented By: KENYATTA Levetiracetam (Levetiracetam 500 Mg Tablet) 1,500 mg PO BID [facility] Last Admin: 02/18/25 08:42 Dose: 1,500 mg Documented By: VIVIANA Levothyroxine Sodium (Levothyroxine Sodium 100 Mcg Tablet) 100 mcg PO DAILY@0600 [facility] Last Admin: 02/18/25 05:51 Dose: 100 mcg Documented By: JAMAICA Lidocaine (Lidocaine 4 % Patch Adh..Patch) 3 patch TRANSDERMA DAILY PRN; Protocol PRN Reason: Pain, Moderate(Pain Scale 4-6) Lisinopril (Lisinopril 5 Mg Tablet) 5 mg PO DAILY [facility]; Protocol Last Admin: 02/18/25 08:42 Dose: 5 mg Documented By: VIVIANA Lorazepam (Lorazepam 0.5 Mg Tablet) 0.5 mg PO BEDTIME [facility] Last Admin: 02/17/25 20:44 Dose: 0.5 mg Documented By: JAMAICA Lorazepam (Lorazepam 0.5 Mg Tablet) 0.5 mg PO DAILY@1200 [facility] Last Admin: 02/18/25 12:05 Dose: 0.5 mg Documented By: VIVIANA Magnesium Hydroxide (Milk Of Magnesia 30 Ml Oral.Susp) 30 ml PO DAILY PRN PRN Reason: Constipation Last Admin: 02/16/25 06:45 Dose: 30 ml Documented By: KENYATTA Metformin HCl (Metformin Hcl Er 500 Mg Tab.Er.24h) 1,000 mg PO DAILY@1700 [facility] Miconazole Nitrate (Miconazole 2 % Extra Thick Cr 56.7 Gm Tube) 1 appl TOPICAL BID [facility]; Protocol Last Admin: 02/18/25 09:04 Dose: Not Given Documented By: VIVIANA Non-Admin Reason: Patient Refused Mirabegron (Mirabegron 50 Mg Tab.Er.24h) 50 mg PO DAILY [facility] Last Admin: 02/18/25 08:42 Dose: 50 mg Documented By: VIVIANA Montelukast Sodium (Montelukast Sodium 10 Mg Tablet) 10 mg PO BEDTIME [facility] Last Admin: 02/17/25 20:44 Dose: 10 mg Documented By: JAMAICA Nicotine (Nicotine 21 Mg Patch.Td24) 21 mg TRANSDERMA DAILY PRN PRN Reason: nicotine craving Nicotine Polacrilex (Nicotine Polacrilex 2 Mg Gum) 2 mg BUCCAL Q2H PRN PRN Reason: Nicotine Cravings Nitroglycerin (Nitroglycerin 0.4 Mg Tab.Subl) 0.4 mg SUBLINGUAL Q5M PRN PRN Reason: Angina Olanzapine (Olanzapine 5 Mg Tablet) 5 mg PO TID PRN PRN Reason: agitation/hallucination Olanzapine (Olanzapine 7.5 Mg Tablet) 15 mg PO BEDTIME [facility] Omeprazole (Omeprazole 20 Mg Capsule.Dr) 20 mg PO DAILY@0630 [facility] Last Admin: 02/18/25 08:43 Dose: 20 mg Documented By: VIVIANA Polyethylene Glycol (Polyethylene Glycol 3350 17 Gm Powd.Pack) 17 gm PO DAILY PRN PRN Reason: Constipation Last Admin: 02/18/25 08:46 Dose: 17 gm Documented By: VIVIANA Senna (Sennosides 8.6 Mg Tablet) 17.2 mg PO DAILY PRN PRN Reason: Constipation Trazodone HCl (Trazodone Hcl 50 Mg Tablet) 50 mg PO BEDTIME MRX1 PRN PRN Reason: Insomnia Last Admin: 02/15/25 23:41 Dose: 50 mg Documented By: KENYATTA Trazodone HCl (Trazodone Hcl 50 Mg Tablet) 50 mg PO BEDTIME [facility] Last Admin: 02/17/25 20:44 Dose: 50 mg Documented By: JAMAICA Labs 02/17/25 15:30 Labs: Laboratory Results - last 24 hr 02/17/25 02/17/25 02/18/25 15:30 16:21 06:36 Anion Gap 11 L Estim Creat Clear Calc 66.6 Estimated GFR > 60 POC Glucose 180 H 126 H Random Glucose 184 H Calcium 9.0 Total Bilirubin 0.2 AST 19 ALT 22 Alkaline Phosphatase 86 Total Protein 6.7 Albumin 4.2 Assessment and Plan (1) Osteoarthritis: Status: Acute Plan 64-year-old female with a past medical history listed below admitted to [facility] psych for treatment of auditory and visual hallucinations. No current medical concerns. Bipolar disorder/schizoaffective disorder/anxiety/depression/dementia Treatment per psychiatric team Mild persistent asthma Not in acute exacerbation Continue albuterol as needed, montelukast and Breo daily HTN Continue lisinopril Hypothyroidism Continue levothyroxine Recent TSH 1.64 with normal free T4 FERMÍN Patient does not use CPAP, offered and she declined Epilepsy Continue Keppra No recent seizure reported EPS Continue benztropine NPH Monitor neuro status. T2DM/peripheral neuropathy Continue consistent carb diet Continue metformin and gabapentin Insulin sliding scale Recent A1c 6.3 Stage IIIA chronic kidney disease Baseline creatinine 1.2 Left knee pain/right knee pain/right hip pain, neck pain, osteoarthritis Scheduled Tylenol t.i.d. Lidoderm gel as needed to painful areas May use heat p.r.n. Thank you for allowing me to participate in the care of this patient. Will follow with you, please notify medical provider with any changes in condition or concerns. Quality Stroke Does the patient have a stroke diagnosis?: No VTE Prior VTE?: No VTE Risk Level:: Medical - low VTE Device Contraindication: Treatment Not Indicated VTE Drug Contraindication: N/A - Med Ordered
[2025-02-18 16:14] LABS: Glucose, Whole Blood 121 mg/dL (60-115)
[2025-02-18 19:47] VITALS: BP 127/64; PULSE 63; RESP 18; TEMP 36.4; O2SAT 97
--- NOTE | 2025-02-18 19:52 | HO.PSYCHPN ---
Subjective Subjective Date of Service: 02/18/25 Reason For Visit: F31.9 Subjective Notes: Conditional Voluntary Interim History: Pt reports she is sleeping better. She reports voices are constant, so far tells this show card writer does not think voices are as bad. She is not fully forthcoming with extend of delusional content. No SI/HI. She is taking medications as prescribed. She agrees to cross titration to olanzapine, reduce number of antipsychotics. Review of Systems Review of Systems Denies any shortness of breath, chest pain, headaches, dysuria, abdominal pain or discomfort, nausea, vomiting or diarrhea. Denies fever or chills. Yes all other systems are reviewed and are negative Mental Status Exam Mental Status Exam Narrative: Appearance: Casual. fair grooming/hygiene. good eye contact Attitude: Cooperative Speech: Fluent and wnl in regard to volume, tone, prosody Motor activity: Calm and without any tics, tremors or dyskinesias. Mood: 'okay' Affect: blunted SI: denies HI: denies Thought process: goal directed Thought content: as noted above. AH/VH: continues to hear voices, at times telling her that someone bad will happen to her Delusions: some paranoid delusions, but pt is not fully forthcoming. Insight: fair Judgment:fair Diagnostics Vital Signs (24Hr): Vital Signs - 24 hr 02/17/25 20:00 02/18/25 08:00 02/18/25 19:47 Temperature 98.2 F 36.5 F L 97.5 F Pulse Rate 70 92 63 Respiratory Rate 16 18 18 Blood Pressure 131/60 130/62 127/64 Pulse Oximetry 96 96 97 Oxygen Delivery Method Room Air Room Air Room Air BMI result Body Mass Index 45.9 Labs 02/19/25 08:03 Labs: Laboratory Results - last 48 hr 02/16/25 02/17/25 02/17/25 20:27 06:08 15:30 Sodium 138 Potassium 4.3 Chloride 103 Carbon Dioxide 28 Anion Gap 11 L BUN 21 H Creatinine 0.93 Estim Creat Clear Calc 66.6 Estimated GFR > 60 POC Glucose 182 H 131 H Random Glucose 184 H Calcium 9.0 Total Bilirubin 0.2 AST 19 ALT 22 Alkaline Phosphatase 86 Total Protein 6.7 Albumin 4.2 02/17/25 02/18/25 02/18/25 16:21 06:36 16:10 Sodium Potassium Chloride Carbon Dioxide Anion Gap BUN Creatinine Estim Creat Clear Calc Estimated GFR POC Glucose 180 H 126 H 121 H Random Glucose Calcium Total Bilirubin AST ALT Alkaline Phosphatase Total Protein Albumin Medications Medications Current Medications Acetaminophen (Acetaminophen 325 Mg Tablet) 975 mg PO TID [facility] Al Hydroxide/Mg Hydroxide (Magnesium Hydrox/Alum Hydrox 30 Ml Oral.Susp) 30 ml PO Q6H PRN PRN Reason: Heartburn/Nausea Brexpiprazole (Brexpiprazole 2 Mg Tablet) 2 mg PO DAILY [facility] Last Admin: 02/18/25 08:43 Dose: 2 mg Clopidogrel Bisulfate (Clopidogrel Bisulfate 75 Mg Tablet) 75 mg PO DAILY [facility] Last Admin: 02/18/25 08:46 Dose: 75 mg Dextrose (Dextrose 50 % 25 Gm/50 Ml Syringe) 25 gm IVPUSH Q15M PRN; Protocol PRN Reason: per Hypoglycemia Standing Ord. Ergocalciferol (Ergocalciferol (Vitamin D2) 1,250 Mcg Capsule) 1,250 mcg PO Q30D [facility] Fluticasone/Vilanterol (Fluticasone/Vilanterol 100/25 Blst.W.Dev) 1 puff INHALE RDAILY [facility] Last Admin: 02/18/25 08:43 Dose: Not Given Gabapentin (Gabapentin 100 Mg Capsule) 200 mg PO BID [facility] Last Admin: 02/18/25 08:43 Dose: 200 mg Glucose (Glucose Gel 15 Gm Gel..Gram.) 15 gm PO Q15M PRN; Protocol PRN Reason: per Hypoglycemia Standing Ord. Hydroxyzine HCl (Hydroxyzine Hcl 25 Mg Tablet) 25 mg PO Q6H PRN PRN Reason: mild anxiety Last Admin: 02/15/25 23:42 Dose: 25 mg Levetiracetam (Levetiracetam 500 Mg Tablet) 1,500 mg PO BID [facility] Last Admin: 02/18/25 08:42 Dose: 1,500 mg Levothyroxine Sodium (Levothyroxine Sodium 100 Mcg Tablet) 100 mcg PO DAILY@0600 [facility] Last Admin: 02/18/25 05:51 Dose: 100 mcg Lidocaine (Lidocaine 4 % Patch Adh..Patch) 3 patch TRANSDERMA DAILY PRN; Protocol PRN Reason: Pain, Moderate(Pain Scale 4-6) Lidocaine (Lidocaine 5 % Ointment 35 Gm) 1 appl TOPICAL Q6H PRN; Protocol PRN Reason: Pain, Mild (Pain Scale 1-3) Lisinopril (Lisinopril 5 Mg Tablet) 5 mg PO DAILY [facility]; Protocol Last Admin: 02/18/25 08:42 Dose: 5 mg Lorazepam (Lorazepam 0.5 Mg Tablet) 0.5 mg PO BEDTIME [facility] Last Admin: 02/17/25 20:44 Dose: 0.5 mg Lorazepam (Lorazepam 0.5 Mg Tablet) 0.5 mg PO DAILY@1200 [facility] Last Admin: 02/18/25 12:05 Dose: 0.5 mg Magnesium Hydroxide (Milk Of Magnesia 30 Ml Oral.Susp) 30 ml PO DAILY PRN PRN Reason: Constipation Last Admin: 02/16/25 06:45 Dose: 30 ml Metformin HCl (Metformin Hcl Er 500 Mg Tab.Er.24h) 1,000 mg PO DAILY@1700 [facility] Last Admin: 02/18/25 16:24 Dose: 1,000 mg Miconazole Nitrate (Miconazole 2 % Extra Thick Cr 56.7 Gm Tube) 1 appl TOPICAL BID [facility]; Protocol Last Admin: 02/18/25 09:04 Dose: Not Given Mirabegron (Mirabegron 50 Mg Tab.Er.24h) 50 mg PO DAILY [facility] Last Admin: 02/18/25 08:42 Dose: 50 mg Montelukast Sodium (Montelukast Sodium 10 Mg Tablet) 10 mg PO BEDTIME [facility] Last Admin: 02/17/25 20:44 Dose: 10 mg Nicotine (Nicotine 21 Mg Patch.Td24) 21 mg TRANSDERMA DAILY PRN PRN Reason: nicotine craving Nicotine Polacrilex (Nicotine Polacrilex 2 Mg Gum) 2 mg BUCCAL Q2H PRN PRN Reason: Nicotine Cravings Nitroglycerin (Nitroglycerin 0.4 Mg Tab.Subl) 0.4 mg SUBLINGUAL Q5M PRN PRN Reason: Angina Olanzapine (Olanzapine 5 Mg Tablet) 5 mg PO TID PRN PRN Reason: agitation/hallucination Olanzapine (Olanzapine 7.5 Mg Tablet) 15 mg PO BEDTIME [facility] Omeprazole (Omeprazole 20 Mg Capsule.Dr) 20 mg PO DAILY@0630 [facility] Last Admin: 02/18/25 08:43 Dose: 20 mg Polyethylene Glycol (Polyethylene Glycol 3350 17 Gm Powd.Pack) 17 gm PO DAILY PRN PRN Reason: Constipation Last Admin: 02/18/25 08:46 Dose: 17 gm Senna (Sennosides 8.6 Mg Tablet) 17.2 mg PO DAILY PRN PRN Reason: Constipation Trazodone HCl (Trazodone Hcl 50 Mg Tablet) 50 mg PO BEDTIME MRX1 PRN PRN Reason: Insomnia Last Admin: 02/15/25 23:41 Dose: 50 mg Trazodone HCl (Trazodone Hcl 50 Mg Tablet) 50 mg PO BEDTIME [facility] Last Admin: 02/17/25 20:44 Dose: 50 mg Allergies Allergies Allergy/AdvReac Type Severity Reaction Status Date / Time ibuprofen Allergy Wheezing Verified 12/05/24 13:10 oxcarbazepine (From Allergy Unknown Verified 03/22/24 20:38 Trileptal) peanut Allergy Unknown Verified 03/22/24 20:38 quetiapine (From Seroquel) Allergy Vomiting Verified 03/22/24 20:38 Assessment & Plan Assessment & Plan (1) Schizoaffective disorder: Status: Acute Code(s): F25.9 - Schizoaffective disorder, unspecified (2) Osteoarthritis: Status: Acute Code(s): M19.90 - Unspecified osteoarthritis, unspecified site (3) Seizure disorder: Status: Acute Code(s): G40.909 - Epilepsy, unspecified, not intractable, without status epilepticus (4) FERMÍN (obstructive sleep apnea): Status: Acute Code(s): G47.33 - Obstructive sleep apnea (adult) (pediatric) (5) CKD (chronic kidney disease): Status: Acute Code(s): N18.9 - Chronic kidney disease, unspecified (6) Type 2 diabetes mellitus: Status: Acute Code(s): E11.9 - Type 2 diabetes mellitus without complications (7) Hypothyroidism: Status: Acute Code(s): E03.9 - Hypothyroidism, unspecified (8) HTN (hypertension): Status: Acute Code(s): I10 - Essential (primary) hypertension Plan Per primary team -Patient is a 64 years old female speaking with history Schizoaffective D/O,,hypothyroidism diabetes, epilepsy, hx of malignant melanoma of skin on the left upper back, migraines, HTN, sleep apnea, dementia with mild with wandering behavior who presented to [facility] ED saying that people are out to get me , and expressing paranoia. She stated that she hears her sister and older voices in her head and telling her to go to other apartments. Patient reported that the voices was laughing at her because she will need to go to inpatient psych again. Sister in law who is her healthcare proxy said that patient's medication has not been working well recently. Reported that the patient has been increase in hallucinations and the voices getting louder. Patient reports that she has been taking medication. However [id number] was not sure if his true. Hospital course: 02/12/25: Continue with home meds. Keppra 1,500mg BID for seizure D/O Metformin 500mg daily. Cogentin 0.5mg BID Plavix 75mg daily Gabapentin 200mg BID Levothyroxine 100mcg daily Ativan 0.5mg daily at HS Myrbetriq 50mg daily Singulair 10mg daily at HS Lisinopril 5mg daily Hx of Aristada LEZAMA. Need to confirm last dose- per [facility] discharge summary in 12/2024. Currently on Rexulti 2mg. Will titrate up to therapeutic dose to target mood/psychosis. 02/13/25: Patient reports that she has a terrible night that she could sleep. But has no issue with appetite. Reports left knee pain 8.5. Reported that her back pain is getting better now. She does not need lidocaine patch for it. Nursing reported that patient told them the patient have neighbor yesterday, was gave to the baby last night. When confirmed with patient during assessment, patient said it was not sure . However, later on she said I am . Reports severe anxiety 12/25. She asked if she can get some trazodone for sleep. She ambulate with a walker, visible at times on the unit. Full range affect. She is paranoid, delusional. We do collateral with outpatient provider to get the information regarding long-acting injection. Patient reports having [facility] manage medication and she cannot recall when was last dose. Trazodone 50mg at HS for insonia Zyprexa 5mg BID PRN for psychosis/agitation. 02/14/25: Patient reports that she slept well last night and feel better, less anxious compared to yesterday even though rate anxiety a 7/10. Denies depression or safety concerns. Report hearing voices of her worker at [employer], her brother and her sister. Patient reports that Zyprexa she received yesterday was helpful. Reviewed with patient regarding meds changes. SW is able to get current meds list from her OP team. Patient was given Aristada on 01/23. Next dose due on 02/20. Per discharge summary in December: Aristada 662mg. Per record obtained today: it appears that patient already received Rexulti up to 4mg. Increase Rexulti to 3mg daily for psychosis. Can increase Rexulti up to 4mg by Monday. Aristada not yet ordered. Will order on the due date. 02/15/25: Continue current tx plan 02/16/25: Ordered 5 mg olanzapine prn for AH/agitation, Senna qhs for constipation and MiraLax prn for constipation. Otherwise continue current tx plan 02/17 scheduled olanzapine 10mg po qhs. continue olanzapine prn. decrease dose of rexulti to 2mg po daily. 02/18 increase olanzapine to 15mg po qhs. Psychiatric plan: Patient on 5 minute checks for safety. Ambulate using walker. Admitted to S1. CV. Work with treatment team to do collateral with family and OP provider. Sister in law is HCP. Contact the hospitalist regarding hospitalist consultation on admission U/A ordered to rule out UIT as it is confusing with ED note. Keppra level on 02/13. ED record: EKG WNL (02/11/25). Utox Negative A1C 6.3. THS and Free T4 WNL. Medical plan: mild persistent asthma Not in acute exacerbation Continue albuterol as needed, montelukast and Breo daily HTN Continue lisinopril Hypothyroidism Continue levothyroxine Recent TSH 1.64 with normal free T4 FERMÍN Patient does not use CPAP, offered and she declined Epilepsy Continue Keppra No recent seizure reported EPS Continue benztropine NPH Monitor neuro status. T2DM/peripheral neuropathy Continue consistent carb diet Continue metformin and gabapentin Insulin sliding scale Recent A1c 6.3 Stage IIIA chronic kidney disease Baseline creatinine 1.2 Left knee pain Lidoderm patch to left knee daily Reason for continued inpatient stay Substantial Risk for: med/psych decompensation Time Spent With Patient Time: Total time managing care of this patient today ____ minutes.
[2025-02-18] MEDS: OLANZapine 7.5 MG TABLET 15 MG PO (20:31)
[2025-02-19 06:40] LABS: Glucose, Whole Blood 160 mg/dL (60-115)
[2025-02-19 08:00] VITALS: BP 124/69; PULSE 61; RESP 18; TEMP 36.6
[2025-02-19] MEDS: Milk of Magnesia 30 ML ORAL.SUSP PO (08:21)
[2025-02-19] MEDS: Fluticasone/Vilanterol 100/25 BLST.W.DEV 1 PUFF INHALE (08:23)
[2025-02-19] MEDS: Mirabegron 50 MG TAB.ER.24H PO (08:26)
[2025-02-19 08:59] LABS: Creatinine Clr Calc Pharmacy 61.3; Estimated Glomerular Filt Rate 55
[2025-02-19 16:21] LABS: Glucose, Whole Blood 142 mg/dL (60-115)
--- NOTE | 2025-02-19 19:43 | HO.PSYCHPN ---
Subjective Subjective Date of Service: 02/19/25 Reason For Visit: F31.9 Subjective Notes: Conditional Voluntary Interim History: Pt sleeping through the night. She is not forthcoming about extend of delusional content and psychosis. She does report voices are ongoing, but tells this investigative writer that they are less. She denies SI/HI. However, later in the evening yesterday she reported that men here on the unit trying to rape her and not feeling safe. No aggression towards self or others. Pt also reports constipation, passing gas, no vomiting nor nausea. taking miralax ordered enema. senakot scheduled BID. Mental Status Exam Mental Status Exam Narrative: Appearance: Casual. fair grooming/hygiene. good eye contact Attitude: Cooperative Speech: Fluent and wnl in regard to volume, tone, prosody Motor activity: Calm and without any tics, tremors or dyskinesias. Mood: 'okay' Affect: blunted SI: denies HI: denies Thought process: goal directed Thought content: as noted above. AH/VH: continues to hear voices, at times telling her that someone bad will happen to her Delusions: some paranoid delusions, but pt is not fully forthcoming. Insight: fair Judgment:fair Diagnostics Vital Signs (24Hr): Vital Signs - 24 hr 02/18/25 19:47 02/19/25 08:00 Temperature 97.5 F 97.9 F Pulse Rate 63 61 Respiratory Rate 18 18 Blood Pressure 127/64 124/69 Pulse Oximetry 97 Oxygen Delivery Method Room Air BMI result Body Mass Index 45.9 Labs 02/19/25 08:03 Labs: Laboratory Results - last 48 hr 02/18/25 02/18/25 02/19/25 06:36 16:10 06:35 Creatinine Estim Creat Clear Calc Estimated GFR POC Glucose 126 H 121 H 160 H 02/19/25 02/19/25 08:03 16:17 Creatinine 1.01 Estim Creat Clear Calc 61.3 Estimated GFR 55 POC Glucose 142 H Medications Medications Current Medications Acetaminophen (Acetaminophen 325 Mg Tablet) 975 mg PO TID [facility] Last Admin: 02/19/25 14:30 Dose: 975 mg Al Hydroxide/Mg Hydroxide (Magnesium Hydrox/Alum Hydrox 30 Ml Oral.Susp) 30 ml PO Q6H PRN PRN Reason: Heartburn/Nausea Brexpiprazole (Brexpiprazole 2 Mg Tablet) 2 mg PO DAILY [facility] Last Admin: 02/19/25 08:25 Dose: 2 mg Clopidogrel Bisulfate (Clopidogrel Bisulfate 75 Mg Tablet) 75 mg PO DAILY [facility] Last Admin: 02/19/25 08:25 Dose: 75 mg Dextrose (Dextrose 50 % 25 Gm/50 Ml Syringe) 25 gm IVPUSH Q15M PRN; Protocol PRN Reason: per Hypoglycemia Standing Ord. Ergocalciferol (Ergocalciferol (Vitamin D2) 1,250 Mcg Capsule) 1,250 mcg PO Q30D [facility] Fluticasone/Vilanterol (Fluticasone/Vilanterol 100/25 Blst.W.Dev) 1 puff INHALE RDAILY [facility] Last Admin: 02/19/25 08:23 Dose: 1 puff Gabapentin (Gabapentin 100 Mg Capsule) 200 mg PO BID [facility] Last Admin: 02/19/25 08:25 Dose: 200 mg Glucose (Glucose Gel 15 Gm Gel..Gram.) 15 gm PO Q15M PRN; Protocol PRN Reason: per Hypoglycemia Standing Ord. Hydroxyzine HCl (Hydroxyzine Hcl 25 Mg Tablet) 25 mg PO Q6H PRN PRN Reason: mild anxiety Last Admin: 02/19/25 15:55 Dose: 25 mg Levetiracetam (Levetiracetam 500 Mg Tablet) 1,500 mg PO BID [facility] Last Admin: 02/19/25 08:23 Dose: 1,500 mg Levothyroxine Sodium (Levothyroxine Sodium 100 Mcg Tablet) 100 mcg PO DAILY@0600 [facility] Last Admin: 02/19/25 05:30 Dose: 100 mcg Lidocaine (Lidocaine 4 % Patch Adh..Patch) 3 patch TRANSDERMA DAILY PRN; Protocol PRN Reason: Pain, Moderate(Pain Scale 4-6) Lidocaine (Lidocaine 5 % Ointment 35 Gm) 1 appl TOPICAL Q6H PRN; Protocol PRN Reason: Pain, Mild (Pain Scale 1-3) Lisinopril (Lisinopril 5 Mg Tablet) 5 mg PO DAILY [facility]; Protocol Last Admin: 02/19/25 08:25 Dose: 5 mg Lorazepam (Lorazepam 0.5 Mg Tablet) 0.5 mg PO BEDTIME [facility] Last Admin: 02/18/25 20:31 Dose: 0.5 mg Lorazepam (Lorazepam 0.5 Mg Tablet) 0.5 mg PO DAILY@1200 [facility] Last Admin: 02/19/25 12:04 Dose: Not Given Magnesium Hydroxide (Milk Of Magnesia 30 Ml Oral.Susp) 30 ml PO DAILY PRN PRN Reason: Constipation Last Admin: 02/19/25 08:21 Dose: 30 ml Metformin HCl (Metformin Hcl Er 500 Mg Tab.Er.24h) 1,000 mg PO DAILY@1700 [facility] Last Admin: 02/19/25 17:37 Dose: 1,000 mg Miconazole Nitrate (Miconazole 2 % Extra Thick Cr 56.7 Gm Tube) 1 appl TOPICAL BID [facility]; Protocol Last Admin: 02/19/25 08:55 Dose: Not Given Mirabegron (Mirabegron 50 Mg Tab.Er.24h) 50 mg PO DAILY [facility] Last Admin: 02/19/25 08:26 Dose: 50 mg Montelukast Sodium (Montelukast Sodium 10 Mg Tablet) 10 mg PO BEDTIME [facility] Last Admin: 02/18/25 20:31 Dose: 10 mg Nicotine (Nicotine 21 Mg Patch.Td24) 21 mg TRANSDERMA DAILY PRN PRN Reason: nicotine craving Nicotine Polacrilex (Nicotine Polacrilex 2 Mg Gum) 2 mg BUCCAL Q2H PRN PRN Reason: Nicotine Cravings Nitroglycerin (Nitroglycerin 0.4 Mg Tab.Subl) 0.4 mg SUBLINGUAL Q5M PRN PRN Reason: Angina Olanzapine (Olanzapine 5 Mg Tablet) 5 mg PO TID PRN PRN Reason: agitation/hallucination Last Admin: 02/19/25 00:10 Dose: 5 mg Olanzapine (Olanzapine 7.5 Mg Tablet) 15 mg PO BEDTIME [facility] Last Admin: 02/18/25 20:31 Dose: 15 mg Omeprazole (Omeprazole 20 Mg Capsule.Dr) 20 mg PO DAILY@0630 [facility] Last Admin: 02/19/25 05:57 Dose: 20 mg Polyethylene Glycol (Polyethylene Glycol 3350 17 Gm Powd.Pack) 17 gm PO DAILY PRN PRN Reason: Constipation Last Admin: 02/18/25 08:46 Dose: 17 gm Senna (Sennosides 8.6 Mg Tablet) 17.2 mg PO DAILY PRN PRN Reason: Constipation Senna/Docusate Sodium (Sennosides/Docusate Sodium Tablet) 1 tab PO BID [facility] Trazodone HCl (Trazodone Hcl 50 Mg Tablet) 50 mg PO BEDTIME MRX1 PRN PRN Reason: Insomnia Last Admin: 02/15/25 23:41 Dose: 50 mg Trazodone HCl (Trazodone Hcl 50 Mg Tablet) 50 mg PO BEDTIME [facility] Last Admin: 02/18/25 20:31 Dose: 50 mg Allergies Allergies Allergy/AdvReac Type Severity Reaction Status Date / Time ibuprofen Allergy Wheezing Verified 12/05/24 13:10 oxcarbazepine (From Allergy Unknown Verified 03/22/24 20:38 Trileptal) peanut Allergy Unknown Verified 03/22/24 20:38 quetiapine (From Seroquel) Allergy Vomiting Verified 03/22/24 20:38 Assessment & Plan Assessment & Plan (1) Schizoaffective disorder: Status: Acute Code(s): F25.9 - Schizoaffective disorder, unspecified (2) Osteoarthritis: Status: Acute Code(s): M19.90 - Unspecified osteoarthritis, unspecified site (3) Seizure disorder: Status: Acute Code(s): G40.909 - Epilepsy, unspecified, not intractable, without status epilepticus (4) FERMÍN (obstructive sleep apnea): Status: Acute Code(s): G47.33 - Obstructive sleep apnea (adult) (pediatric) (5) CKD (chronic kidney disease): Status: Acute Code(s): N18.9 - Chronic kidney disease, unspecified (6) Type 2 diabetes mellitus: Status: Acute Code(s): E11.9 - Type 2 diabetes mellitus without complications (7) Hypothyroidism: Status: Acute Code(s): E03.9 - Hypothyroidism, unspecified (8) HTN (hypertension): Status: Acute Code(s): I10 - Essential (primary) hypertension Plan Per primary team -Patient is a 64 years old female speaking with history Schizoaffective D/O,,hypothyroidism diabetes, epilepsy, hx of malignant melanoma of skin on the left upper back, migraines, HTN, sleep apnea, dementia with mild with wandering behavior who presented to [facility] ED saying that people are out to get me , and expressing paranoia. She stated that she hears her sister and older voices in her head and telling her to go to other apartments. Patient reported that the voices was laughing at her because she will need to go to inpatient psych again. Sister in law who is her healthcare proxy said that patient's medication has not been working well recently. Reported that the patient has been increase in hallucinations and the voices getting louder. Patient reports that she has been taking medication. However [id number] was not sure if his true. Hospital course: 02/12/25: Continue with home meds. Keppra 1,500mg BID for seizure D/O Metformin 500mg daily. Cogentin 0.5mg BID Plavix 75mg daily Gabapentin 200mg BID Levothyroxine 100mcg daily Ativan 0.5mg daily at HS Myrbetriq 50mg daily Singulair 10mg daily at HS Lisinopril 5mg daily Hx of Aristada LEZAMA. Need to confirm last dose- per [facility] [place]. Currently on Rexulti 2mg. Will titrate up to therapeutic dose to target mood/psychosis. 02/13/25: Patient reports that she has a terrible night that she could sleep. But has no issue with appetite. Reports left knee pain 8.510. Reported that her back pain is getting better now. She does not need lidocaine patch for it. Nursing reported that patient told them the patient have neighbor yesterday, was gave to the baby last night. When confirmed with patient during assessment, patient said it was not sure . However, later on she said I am . Reports severe anxiety 910. She asked if she can get some trazodone for sleep. She ambulate with a walker, visible at times on the unit. Full range affect. She is paranoid, delusional. We do collateral with outpatient provider to get the information regarding long-acting injection. Patient reports having [facility] manage medication and she cannot recall when was last dose. Trazodone 50mg at HS for insonia Zyprexa 5mg BID PRN for psychosis/agitation. 02/14/25: Patient reports that she slept well last night and feel better, less anxious compared to yesterday even though rate anxiety a 7/10. Denies depression or safety concerns. Report hearing voices of her worker at [employer], her brother and her sister. Patient reports that Zyprexa she received yesterday was helpful. Reviewed with patient regarding meds changes. SW is able to get current meds list from her OP team. Patient was given Aristada on 01/23. Next dose due on 02/20. Per discharge summary in December: Aristada 662mg. Per record obtained today: it appears that patient already received Rexulti up to 4mg. Increase Rexulti to 3mg daily for psychosis. Can increase Rexulti up to 4mg by Monday. Aristada not yet ordered. Will order on the due date. 02/15/25: Continue current tx plan 02/16/25: Ordered 5 mg olanzapine prn for AH/agitation, Senna qhs for constipation and MiraLax prn for constipation. Otherwise continue current tx plan 02/17 scheduled olanzapine 10mg po qhs. continue olanzapine prn. decrease dose of rexulti to 2mg po daily. 02/18 increase olanzapine to 15mg po qhs. 02/19 increase olanzapine 20mg po qhs. continue rexulti. enema for constipation. Psychiatric plan: Patient on 5 minute checks for safety. Ambulate using walker. Admitted to S1. CV. Work with treatment team to do collateral with family and OP provider. Sister in law is HCP. Contact the hospitalist regarding hospitalist consultation on admission U/A ordered to rule out UIT as it is confusing with ED note. Keppra level on 02/13. ED record: EKG WNL (02/11/25). Utox Negative A1C 6.3. THS and Free T4 WNL. Medical plan: mild persistent asthma Not in acute exacerbation Continue albuterol as needed, montelukast and Breo daily HTN Continue lisinopril Hypothyroidism Continue levothyroxine Recent TSH 1.64 with normal free T4 FERMÍN Patient does not use CPAP, offered and she declined Epilepsy Continue Keppra No recent seizure reported EPS Continue benztropine NPH Monitor neuro status. T2DM/peripheral neuropathy Continue consistent carb diet Continue metformin and gabapentin Insulin sliding scale Recent A1c 6.3 Stage IIIA chronic kidney disease Baseline creatinine 1.2 Left knee pain Lidoderm patch to left knee daily Reason for continued inpatient stay Substantial Risk for: inability to function Time Spent With Patient Time: Total time managing care of this patient today ____ minutes.
[2025-02-19 20:00] VITALS: BP 109/60; PULSE 63; RESP 16; TEMP 36.7; O2SAT 97
[2025-02-19] MEDS: OLANZapine 7.5 MG TABLET 15 MG PO (21:29)
[2025-02-20 05:51] LABS: Glucose, Whole Blood 120 mg/dL (60-115)
[2025-02-20 07:00] VITALS: BMI 46.0
[2025-02-20 08:00] VITALS: BP 143/70; PULSE 52; RESP 16; TEMP 36; O2SAT 97
[2025-02-20] MEDS: Mirabegron 50 MG TAB.ER.24H PO (08:43)
[2025-02-20] MEDS: Fluticasone/Vilanterol 100/25 BLST.W.DEV 1 PUFF INHALE (08:43)
[2025-02-20 14:14] VITALS: BMI 46.0
[2025-02-20 14:24] LABS: Appearance Urine Clear; Glucose Urine UA Negative (Negative); PH 5.5 (5.0-9.0); Specific Gravity - Urine 1.010 (1.005-1.025); UMIC TRIGGER UA YES
--- NOTE | 2025-02-20 14:50 | HO.PSYCHPN ---
Subjective Subjective Date of Service: 02/20/25 Reason For Visit: F31.9 Subjective Notes: Conditional Voluntary Interim History: Pt slept through the night. Pt continues to present with paranoid delusions, as well as thinking that she is . She also thinks male pts are romantically interested in her, which she does like, and she knows because she suspects that they can read her mind. She also continues to present with constipation. taking medications not as effective yet. She had enema with limited efficacy. no vomiting nor abdominal pain. no overt signs of obstruction but will continue to monitor. Diagnostics Vital Signs (24Hr): Vital Signs - 24 hr 02/19/25 20:00 02/20/25 08:00 Temperature 98.1 F 96.8 F Pulse Rate 63 52 Respiratory Rate 16 16 Blood Pressure 109/60 143/70 H Pulse Oximetry 97 97 Oxygen Delivery Method Room Air Room Air BMI result Body Mass Index 46.0 Labs 02/19/25 08:03 Labs: Laboratory Results - last 48 hr 02/18/25 02/19/25 02/19/25 16:10 06:35 08:03 Creatinine 1.01 Estim Creat Clear Calc 61.3 Estimated GFR 55 POC Glucose 121 H 160 H Urine Color Urine Appearance Urine pH Ur Specific [place] Urine Protein Urine Glucose (UA) Urine Ketones Urine Blood Urine Nitrite Ur Leukocyte Esterase Urine RBC Urine WBC Ur Squamous Epith Cells Urine Bacteria Hyaline Casts 02/19/25 02/20/25 02/20/25 16:17 05:47 13:30 Creatinine Estim Creat Clear Calc Estimated GFR POC Glucose 142 H 120 H Urine Color Yellow Urine Appearance Clear Urine pH 5.5 Ur Specific [place] 1.010 Urine Protein Negative Urine Glucose (UA) Negative Urine Ketones Negative Urine Blood Negative Urine Nitrite Negative Ur Leukocyte Esterase Moderate (2+) H Urine RBC 0-2 Urine WBC 11-20 H Ur Squamous Epith Cells 0-2 Urine Bacteria None Seen Hyaline Casts 0-2 Medications Medications Current Medications Acetaminophen (Acetaminophen 325 Mg Tablet) 975 mg PO TID [facility] Last Admin: 02/20/25 08:43 Dose: Not Given Al Hydroxide/Mg Hydroxide (Magnesium Hydrox/Alum Hydrox 30 Ml Oral.Susp) 30 ml PO Q6H PRN PRN Reason: Heartburn/Nausea Brexpiprazole (Brexpiprazole 2 Mg Tablet) 2 mg PO DAILY [facility] Last Admin: 02/20/25 08:42 Dose: 2 mg Clopidogrel Bisulfate (Clopidogrel Bisulfate 75 Mg Tablet) 75 mg PO DAILY [facility] Last Admin: 02/20/25 08:43 Dose: 75 mg Dextrose (Dextrose 50 % 25 Gm/50 Ml Syringe) 25 gm IVPUSH Q15M PRN; Protocol PRN Reason: per Hypoglycemia Standing Ord. Ergocalciferol (Ergocalciferol (Vitamin D2) 1,250 Mcg Capsule) 1,250 mcg PO Q30D [facility] Fluticasone/Vilanterol (Fluticasone/Vilanterol 100/25 Blst.W.Dev) 1 puff INHALE RDAILY [facility] Last Admin: 02/20/25 08:43 Dose: 1 puff Gabapentin (Gabapentin 100 Mg Capsule) 200 mg PO BID [facility] Last Admin: 02/20/25 08:42 Dose: 200 mg Glucose (Glucose Gel 15 Gm Gel..Gram.) 15 gm PO Q15M PRN; Protocol PRN Reason: per Hypoglycemia Standing Ord. Hydroxyzine HCl (Hydroxyzine Hcl 25 Mg Tablet) 25 mg PO Q6H PRN PRN Reason: mild anxiety Last Admin: 02/19/25 15:55 Dose: 25 mg Levetiracetam (Levetiracetam 500 Mg Tablet) 1,500 mg PO BID [facility] Last Admin: 02/20/25 08:42 Dose: 1,500 mg Levothyroxine Sodium (Levothyroxine Sodium 100 Mcg Tablet) 100 mcg PO DAILY@0600 [facility] Last Admin: 02/20/25 05:46 Dose: 100 mcg Lidocaine (Lidocaine 4 % Patch Adh..Patch) 3 patch TRANSDERMA DAILY PRN; Protocol PRN Reason: Pain, Moderate(Pain Scale 4-6) Lidocaine (Lidocaine 5 % Ointment 35 Gm) 1 appl TOPICAL Q6H PRN; Protocol PRN Reason: Pain, Mild (Pain Scale 1-3) Lisinopril (Lisinopril 5 Mg Tablet) 5 mg PO DAILY [facility]; Protocol Last Admin: 02/20/25 08:41 Dose: 5 mg Lorazepam (Lorazepam 0.5 Mg Tablet) 0.5 mg PO BEDTIME [facility] Last Admin: 02/19/25 21:28 Dose: 0.5 mg Lorazepam (Lorazepam 0.5 Mg Tablet) 0.5 mg PO DAILY@1200 [facility] Last Admin: 02/20/25 11:52 Dose: 0.5 mg Magnesium Hydroxide (Milk Of Magnesia 30 Ml Oral.Susp) 30 ml PO DAILY PRN PRN Reason: Constipation Last Admin: 02/19/25 08:21 Dose: 30 ml Metformin HCl (Metformin Hcl Er 500 Mg Tab.Er.24h) 1,000 mg PO DAILY@1700 [facility] Last Admin: 02/19/25 17:37 Dose: 1,000 mg Miconazole Nitrate (Miconazole 2 % Extra Thick Cr 56.7 Gm Tube) 1 appl TOPICAL BID [facility]; Protocol Last Admin: 02/20/25 10:03 Dose: Not Given Mirabegron (Mirabegron 50 Mg Tab.Er.24h) 50 mg PO DAILY [facility] Last Admin: 02/20/25 08:43 Dose: 50 mg Montelukast Sodium (Montelukast Sodium 10 Mg Tablet) 10 mg PO BEDTIME [facility] Last Admin: 02/19/25 21:29 Dose: 10 mg Nicotine (Nicotine 21 Mg Patch.Td24) 21 mg TRANSDERMA DAILY PRN PRN Reason: nicotine craving Nicotine Polacrilex (Nicotine Polacrilex 2 Mg Gum) 2 mg BUCCAL Q2H PRN PRN Reason: Nicotine Cravings Nitroglycerin (Nitroglycerin 0.4 Mg Tab.Subl) 0.4 mg SUBLINGUAL Q5M PRN PRN Reason: Angina Olanzapine (Olanzapine 5 Mg Tablet) 5 mg PO TID PRN PRN Reason: agitation/hallucination Last Admin: 02/19/25 00:10 Dose: 5 mg Olanzapine (Olanzapine 7.5 Mg Tablet) 15 mg PO BEDTIME [facility] Last Admin: 02/19/25 21:29 Dose: 15 mg Omeprazole (Omeprazole 20 Mg Capsule.Dr) 20 mg PO DAILY@0630 [facility] Last Admin: 02/20/25 06:15 Dose: 20 mg Polyethylene Glycol (Polyethylene Glycol 3350 17 Gm Powd.Pack) 17 gm PO DAILY PRN PRN Reason: Constipation Last Admin: 02/18/25 08:46 Dose: 17 gm Senna (Sennosides 8.6 Mg Tablet) 17.2 mg PO DAILY PRN PRN Reason: Constipation Senna/Docusate Sodium (Sennosides/Docusate Sodium Tablet) 1 tab PO BID [facility] Last Admin: 02/20/25 10:03 Dose: Not Given Trazodone HCl (Trazodone Hcl 50 Mg Tablet) 50 mg PO BEDTIME MRX1 PRN PRN Reason: Insomnia Last Admin: 02/15/25 23:41 Dose: 50 mg Trazodone HCl (Trazodone Hcl 50 Mg Tablet) 50 mg PO BEDTIME [facility] Last Admin: 02/19/25 21:29 Dose: 50 mg Allergies Allergies Allergy/AdvReac Type Severity Reaction Status Date / Time ibuprofen Allergy Wheezing Verified 12/05/24 13:10 oxcarbazepine (From Allergy Unknown Verified 03/22/24 20:38 Trileptal) peanut Allergy Unknown Verified 03/22/24 20:38 quetiapine (From Seroquel) Allergy Vomiting Verified 03/22/24 20:38 Assessment & Plan Assessment & Plan (1) Schizoaffective disorder: Status: Acute Code(s): F25.9 - Schizoaffective disorder, unspecified (2) Osteoarthritis: Status: Acute Code(s): M19.90 - Unspecified osteoarthritis, unspecified site (3) Seizure disorder: Status: Acute Code(s): G40.909 - Epilepsy, unspecified, not intractable, without status epilepticus (4) FERMÍN (obstructive sleep apnea): Status: Acute Code(s): G47.33 - Obstructive sleep apnea (adult) (pediatric) (5) CKD (chronic kidney disease): Status: Acute Code(s): N18.9 - Chronic kidney disease, unspecified (6) Type 2 diabetes mellitus: Status: Acute Code(s): E11.9 - Type 2 diabetes mellitus without complications (7) Hypothyroidism: Status: Acute Code(s): E03.9 - Hypothyroidism, unspecified (8) HTN (hypertension): Status: Acute Code(s): I10 - Essential (primary) hypertension Plan Per primary team -Patient is a 64 years old female speaking with history Schizoaffective D/O,,hypothyroidism diabetes, epilepsy, hx of malignant melanoma of skin on the left upper back, migraines, HTN, sleep apnea, dementia with mild with wandering behavior who presented to [facility] ED saying that people are out to get me , and expressing paranoia. She stated that she hears her sister and older voices in her head and telling her to go to other apartments. Patient reported that the voices was laughing at her because she will need to go to inpatient psych again. Sister in law who is her healthcare proxy said that patient's medication has not been working well recently. Reported that the patient has been increase in hallucinations and the voices getting louder. Patient reports that she has been taking medication. However [id number] was not sure if his true. Hospital course: 02/12/25: Continue with home meds. Keppra 1,500mg BID for seizure D/O Metformin 500mg daily. Cogentin 0.5mg BID Plavix 75mg daily Gabapentin 200mg BID Levothyroxine 100mcg daily Ativan 0.5mg daily at HS Myrbetriq 50mg daily Singulair 10mg daily at HS Lisinopril 5mg daily Hx of Aristada LEZAMA. Need to confirm last dose- per [facility] [place]. Currently on Rexulti 2mg. Will titrate up to therapeutic dose to target mood/psychosis. 02/13/25: Patient reports that she has a terrible night that she could sleep. But has no issue with appetite. Reports left knee pain 8.5. Reported that her back pain is getting better now. She does not need lidocaine patch for it. Nursing reported that patient told them the patient have neighbor yesterday, was gave to the baby last night. When confirmed with patient during assessment, patient said it was not sure . However, later on she said I am . Reports severe anxiety 12/25. She asked if she can get some trazodone for sleep. She ambulate with a walker, visible at times on the unit. Full range affect. She is paranoid, delusional. We do collateral with outpatient provider to get the information regarding long-acting injection. Patient reports having [facility] manage medication and she cannot recall when was last dose. Trazodone 50mg at HS for insonia Zyprexa 5mg BID PRN for psychosis/agitation. 02/14/25: Patient reports that she slept well last night and feel better, less anxious compared to yesterday even though rate anxiety a 7/10. Denies depression or safety concerns. Report hearing voices of her worker at [employer], her brother and her sister. Patient reports that Zyprexa she received yesterday was helpful. Reviewed with patient regarding meds changes. SW is able to get current meds list from her OP team. Patient was given Aristada on 01/23. Next dose due on 02/20. Per discharge summary in December: Aristada 662mg. Per record obtained today: it appears that patient already received Rexulti up to 4mg. Increase Rexulti to 3mg daily for psychosis. Can increase Rexulti up to 4mg by Monday. Aristada not yet ordered. Will order on the due date. 02/15/25: Continue current tx plan 02/16/25: Ordered 5 mg olanzapine prn for AH/agitation, Senna qhs for constipation and MiraLax prn for constipation. Otherwise continue current tx plan 02/17 scheduled olanzapine 10mg po qhs. continue olanzapine prn. decrease dose of rexulti to 2mg po daily. 02/18 increase olanzapine to 15mg po qhs. 02/19 increase olanzapine to 20mg po qhs 02/20 continues to present with paranoid delusions, erotomatic delusions. not fully forthcoming. aristada was discontinued. we discussed trying higher potency antipsychotic. No SI/HI. constipation also an issue- on miralax, had enema, senakot scheduled although she declined thinking she was not suppose to take it. continue to monitor. Psychiatric plan: Patient on 5 minute checks for safety. Ambulate using walker. Admitted to S1. CV. Work with treatment team to do collateral with family and OP provider. Sister in law is HCP. Contact the hospitalist regarding hospitalist consultation on admission U/A ordered to rule out UIT as it is confusing with ED note. Keppra level on 02/13. ED record: EKG WNL (02/11/25). Utox Negative A1C 6.3. THS and Free T4 WNL. Medical plan: mild persistent asthma Not in acute exacerbation Continue albuterol as needed, montelukast and Breo daily HTN Continue lisinopril Hypothyroidism Continue levothyroxine Recent TSH 1.64 with normal free T4 FERMÍN Patient does not use CPAP, offered and she declined Epilepsy Continue Keppra No recent seizure reported EPS Continue benztropine NPH Monitor neuro status. T2DM/peripheral neuropathy Continue consistent carb diet Continue metformin and gabapentin Insulin sliding scale Recent A1c 6.3 Stage IIIA chronic kidney disease Baseline creatinine 1.2 Left knee pain Lidoderm patch to left knee daily Reason for continued inpatient stay Substantial Risk for: inability to function Time Spent With Patient Time: Total time managing care of this patient today ____ minutes.
[2025-02-20 16:39] LABS: Glucose, Whole Blood 185 mg/dL (60-115)
[2025-02-20 20:00] VITALS: BP 149/65; PULSE 66; TEMP 36.5; O2SAT 100
[2025-02-21 07:47] LABS: Glucose, Whole Blood 169 mg/dL (60-115)
[2025-02-21 08:20] VITALS: BP 132/64; PULSE 73; RESP 14; TEMP 36.4; O2SAT 95
[2025-02-21] MEDS: Fluticasone/Vilanterol 100/25 BLST.W.DEV 1 PUFF INHALE (09:06)
[2025-02-21] MEDS: Mirabegron 50 MG TAB.ER.24H PO (09:08)
--- NOTE | 2025-02-21 15:00 | HO.PSYCHPN ---
Subjective Subjective Date of Service: 02/21/25 Reason For Visit: F31.9 Subjective Notes: Conditional Voluntary Interim History: Pt declined rexulti this morning thinks this medications is making me crazy. She is now insisting that she is and she is sure about this. She continues to present with paranoid ideas along with some more erotomatic delusional content. She had KUB which shows severe constipation but no obstruction. will scheduled miralax and increase dose. continue senakot. She may benefit from tap water enema. continue to monitor. d/c rexkaitlyn per pt request, started prolixin 5mg po BID. continue olanzapine 20mg po qhs- goal to try monotherapy that is effective but may need combination of no more than 2 antipsychotic. Mental Status Exam Mental Status Exam Narrative: Appearance: Casual. fair grooming/hygiene. good eye contact Attitude: Cooperative Speech: Fluent and wnl in regard to volume, tone, prosody Motor activity: Calm and without any tics, tremors or dyskinesias. Mood: 'okay' Affect: blunted SI: denies HI: denies Thought process: goal directed Thought content: as noted above. AH/VH: continues to hear voices, at times telling her that someone bad will happen to her Delusions: some paranoid delusions, but pt is not fully forthcoming. Insight: fair Judgment:fair Diagnostics Vital Signs (24Hr): Vital Signs - 24 hr 02/20/25 20:00 02/21/25 08:20 Temperature 97.7 F 97.5 F Pulse Rate 66 73 Respiratory Rate 14 Blood Pressure 149/65 H 132/64 Pulse Oximetry 100 95 Oxygen Delivery Method Room Air Room Air BMI result Body Mass Index 46.0 Labs 02/19/25 08:03 Labs: Laboratory Results - last 48 hr 02/19/25 02/20/25 02/20/25 16:17 05:47 13:30 POC Glucose 142 H 120 H Urine Color Yellow Urine Appearance Clear Urine pH 5.5 Ur Specific [place] 1.010 Urine Protein Negative Urine Glucose (UA) Negative Urine Ketones Negative Urine Blood Negative Urine Nitrite Negative Ur Leukocyte Esterase Moderate (2+) H Urine RBC 0-2 Urine WBC 11-20 H Ur Squamous Epith Cells 0-2 Urine Bacteria None Seen Hyaline Casts 0-2 02/20/25 02/21/25 16:28 07:40 POC Glucose 185 H 169 H Urine Color Urine Appearance Urine pH Ur Specific [place] Urine Protein Urine Glucose (UA) Urine Ketones Urine Blood Urine Nitrite Ur Leukocyte Esterase Urine RBC Urine WBC Ur Squamous Epith Cells Urine Bacteria Hyaline Casts Imaging Radiology Impressions: ITS Impressions KUB X-Ray 02/21/25 11:05 IMPRESSION: Large amount stool throughout the colon. Electronically signed by: Ronan Swanson MD 02/21/2025 11:11 AM [facility] Medications Medications Current Medications Acetaminophen (Acetaminophen 325 Mg Tablet) 975 mg PO TID COUNTS INCLUDE 234 BEDS AT THE [facility] Last Admin: 02/21/25 14:47 Dose: Not Given Al Hydroxide/Mg Hydroxide (Magnesium Hydrox/Alum Hydrox 30 Ml Oral.Susp) 30 ml PO Q6H PRN PRN Reason: Heartburn/Nausea Clopidogrel Bisulfate (Clopidogrel Bisulfate 75 Mg Tablet) 75 mg PO DAILY COUNTS INCLUDE 234 BEDS AT THE [facility] Last Admin: 02/21/25 09:07 Dose: 75 mg Dextrose (Dextrose 50 % 25 Gm/50 Ml Syringe) 25 gm IVPUSH Q15M PRN; Protocol PRN Reason: per Hypoglycemia Standing Ord. Ergocalciferol (Ergocalciferol (Vitamin D2) 1,250 Mcg Capsule) 1,250 mcg PO Q30D COUNTS INCLUDE 234 BEDS AT THE [facility] Fluphenazine HCl (Fluphenazine Hcl 5 Mg Tablet) 5 mg PO BID COUNTS INCLUDE 234 BEDS AT THE [facility] Last Admin: 02/21/25 10:49 Dose: 5 mg Fluticasone/Vilanterol (Fluticasone/Vilanterol 100/25 Blst.W.Dev) 1 puff INHALE RDAILY COUNTS INCLUDE 234 BEDS AT THE [facility] Last Admin: 02/21/25 09:06 Dose: 1 puff Gabapentin (Gabapentin 100 Mg Capsule) 200 mg PO BID COUNTS INCLUDE 234 BEDS AT THE [facility] Last Admin: 02/21/25 09:08 Dose: 200 mg Glucose (Glucose Gel 15 Gm Gel..Gram.) 15 gm PO Q15M PRN; Protocol PRN Reason: per Hypoglycemia Standing Ord. Levetiracetam (Levetiracetam 500 Mg Tablet) 1,500 mg PO BID COUNTS INCLUDE 234 BEDS AT THE [facility] Levothyroxine Sodium (Levothyroxine Sodium 100 Mcg Tablet) 100 mcg PO DAILY@0600 COUNTS INCLUDE 234 BEDS AT THE [facility] Last Admin: 02/21/25 05:30 Dose: 100 mcg Lidocaine (Lidocaine 4 % Patch Adh..Patch) 3 patch TRANSDERMA DAILY PRN; Protocol PRN Reason: Pain, Moderate(Pain Scale 4-6) Lidocaine (Lidocaine 5 % Ointment 35 Gm) 1 appl TOPICAL Q6H PRN; Protocol PRN Reason: Pain, Mild (Pain Scale 1-3) Lisinopril (Lisinopril 5 Mg Tablet) 5 mg PO DAILY COUNTS INCLUDE 234 BEDS AT THE [facility]; Protocol Last Admin: 02/21/25 09:13 Dose: 5 mg Lorazepam (Lorazepam 0.5 Mg Tablet) 0.5 mg PO BEDTIME COUNTS INCLUDE 234 BEDS AT THE [facility] Last Admin: 02/20/25 20:45 Dose: 0.5 mg Lorazepam (Lorazepam 0.5 Mg Tablet) 0.5 mg PO DAILY@1200 COUNTS INCLUDE 234 BEDS AT THE [facility] Last Admin: 02/21/25 12:22 Dose: 0.5 mg Magnesium Hydroxide (Milk Of Magnesia 30 Ml Oral.Susp) 30 ml PO DAILY PRN PRN Reason: Constipation Last Admin: 02/19/25 08:21 Dose: 30 ml Metformin HCl (Metformin Hcl Er 500 Mg Tab.Er.24h) 1,000 mg PO DAILY@1700 COUNTS INCLUDE 234 BEDS AT THE [facility] Last Admin: 02/20/25 16:41 Dose: 1,000 mg Miconazole Nitrate (Miconazole 2 % Extra Thick Cr 56.7 Gm Tube) 1 appl TOPICAL BID COUNTS INCLUDE 234 BEDS AT THE [facility]; Protocol Last Admin: 02/21/25 09:09 Dose: Not Given Mirabegron (Mirabegron 50 Mg Tab.Er.24h) 50 mg PO DAILY COUNTS INCLUDE 234 BEDS AT THE [facility] Last Admin: 02/21/25 09:08 Dose: 50 mg Montelukast Sodium (Montelukast Sodium 10 Mg Tablet) 10 mg PO BEDTIME COUNTS INCLUDE 234 BEDS AT THE [facility] Last Admin: 02/20/25 20:44 Dose: 10 mg Nicotine (Nicotine 21 Mg Patch.Td24) 21 mg TRANSDERMA DAILY PRN PRN Reason: nicotine craving Nicotine Polacrilex (Nicotine Polacrilex 2 Mg Gum) 2 mg BUCCAL Q2H PRN PRN Reason: Nicotine Cravings Nitroglycerin (Nitroglycerin 0.4 Mg Tab.Subl) 0.4 mg SUBLINGUAL Q5M PRN PRN Reason: Angina Olanzapine (Olanzapine 5 Mg Tablet) 5 mg PO TID PRN PRN Reason: agitation/hallucination Last Admin: 02/21/25 13:37 Dose: 5 mg Olanzapine (Olanzapine 10 Mg Tablet) 20 mg PO BEDTIME COUNTS INCLUDE 234 BEDS AT THE [facility] Last Admin: 02/20/25 20:45 Dose: 20 mg Omeprazole (Omeprazole 20 Mg Capsule.Dr) 20 mg PO DAILY@0630 COUNTS INCLUDE 234 BEDS AT THE [facility] Last Admin: 02/21/25 05:54 Dose: 20 mg Polyethylene Glycol (Polyethylene Glycol 3350 17 Gm Powd.Pack) 17 gm PO DAILY PRN PRN Reason: Constipation Last Admin: 02/18/25 08:46 Dose: 17 gm Senna (Sennosides 8.6 Mg Tablet) 17.2 mg PO DAILY PRN PRN Reason: Constipation Senna/Docusate Sodium (Sennosides/Docusate Sodium Tablet) 1 tab PO BID COUNTS INCLUDE 234 BEDS AT THE [facility] Last Admin: 02/21/25 09:08 Dose: 1 tab Trazodone HCl (Trazodone Hcl 50 Mg Tablet) 50 mg PO BEDTIME MRX1 PRN PRN Reason: Insomnia Last Admin: 02/15/25 23:41 Dose: 50 mg Trazodone HCl (Trazodone Hcl 50 Mg Tablet) 50 mg PO BEDTIME COUNTS INCLUDE 234 BEDS AT THE [facility] Last Admin: 02/20/25 20:44 Dose: 50 mg Allergies Allergies Allergy/AdvReac Type Severity Reaction Status Date / Time ibuprofen Allergy Wheezing Verified 12/05/24 13:10 oxcarbazepine (From Allergy Unknown Verified 03/22/24 20:38 Trileptal) peanut Allergy Unknown Verified 03/22/24 20:38 quetiapine (From Seroquel) Allergy Vomiting Verified 03/22/24 20:38 Assessment & Plan Assessment & Plan (1) Schizoaffective disorder: Status: Acute Code(s): F25.9 - Schizoaffective disorder, unspecified (2) Osteoarthritis: Status: Acute Code(s): M19.90 - Unspecified osteoarthritis, unspecified site (3) Seizure disorder: Status: Acute Code(s): G40.909 - Epilepsy, unspecified, not intractable, without status epilepticus (4) FERMÍN (obstructive sleep apnea): Status: Acute Code(s): G47.33 - Obstructive sleep apnea (adult) (pediatric) (5) CKD (chronic kidney disease): Status: Acute Code(s): N18.9 - Chronic kidney disease, unspecified (6) Type 2 diabetes mellitus: Status: Acute Code(s): E11.9 - Type 2 diabetes mellitus without complications (7) Hypothyroidism: Status: Acute Code(s): E03.9 - Hypothyroidism, unspecified (8) HTN (hypertension): Status: Acute Code(s): I10 - Essential (primary) hypertension Plan Per primary team -Patient is a 64 years old female speaking with history Schizoaffective D/O,,hypothyroidism diabetes, epilepsy, hx of malignant melanoma of skin on the left upper back, migraines, HTN, sleep apnea, dementia with mild with wandering behavior who presented to [facility] ED saying that people are out to get me , and expressing paranoia. She stated that she hears her sister and older voices in her head and telling her to go to other apartments. Patient reported that the voices was laughing at her because she will need to go to inpatient psych again. Sister in law who is her healthcare proxy said that patient's medication has not been working well recently. Reported that the patient has been increase in hallucinations and the voices getting louder. Patient reports that she has been taking medication. However [id number] was not sure if his true. Hospital course: 02/12/25: Continue with home meds. Keppra 1,500mg BID for seizure D/O Metformin 500mg daily. Cogentin 0.5mg BID Plavix 75mg daily Gabapentin 200mg BID Levothyroxine 100mcg daily Ativan 0.5mg daily at HS Myrbetriq 50mg daily Singulair 10mg daily at HS Lisinopril 5mg daily Hx of Aristada LEZAMA. Need to confirm last dose- per [facility] discharge summary in 12/2024. Currently on Rexulti 2mg. Will titrate up to therapeutic dose to target mood/psychosis. 02/13/25: Patient reports that she has a terrible night that she could sleep. But has no issue with appetite. Reports left knee pain 8.5. Reported that her back pain is getting better now. She does not need lidocaine patch for it. Nursing reported that patient told them the patient have neighbor yesterday, was gave to the baby last night. When confirmed with patient during assessment, patient said it was not sure . However, later on she said I am . Reports severe anxiety 12/25. She asked if she can get some trazodone for sleep. She ambulate with a walker, visible at times on the unit. Full range affect. She is paranoid, delusional. We do collateral with outpatient provider to get the information regarding long-acting injection. Patient reports having [facility] manage medication and she cannot recall when was last dose. Trazodone 50mg at HS for insonia Zyprexa 5mg BID PRN for psychosis/agitation. 02/14/25: Patient reports that she slept well last night and feel better, less anxious compared to yesterday even though rate anxiety a 7/10. Denies depression or safety concerns. Report hearing voices of her worker at [employer], her brother and her sister. Patient reports that Zyprexa she received yesterday was helpful. Reviewed with patient regarding meds changes. SW is able to get current meds list from her OP team. Patient was given Aristada on 01/23. Next dose due on 02/20. Per discharge summary in December: Aristada 662mg. Per record obtained today: it appears that patient already received Rexulti up to 4mg. Increase Rexulti to 3mg daily for psychosis. Can increase Rexulti up to 4mg by Monday. Aristada not yet ordered. Will order on the due date. 02/15/25: Continue current tx plan 02/16/25: Ordered 5 mg olanzapine prn for AH/agitation, Senna qhs for constipation and MiraLax prn for constipation. Otherwise continue current tx plan 02/17 scheduled olanzapine 10mg po qhs. continue olanzapine prn. decrease dose of rexulti to 2mg po daily. 02/18 increase olanzapine to 15mg po qhs. 02/19 increase olanzapine 20mg po qhs. continue rexulti. enema for constipation. 02/20 continues to present with paranoid ideas, erotomatic delusions also present. 02/21 constipation continues to be an issue- KUB completed no obstruction. d/c rexulti per pt request. will start prolixin 5mg po BID. continue olanzapine 20mg po qhs. Psychiatric plan: Patient on 5 minute checks for safety. Ambulate using walker. Admitted to S1. CV. Work with treatment team to do collateral with family and OP provider. Sister in law is HCP. Contact the hospitalist regarding hospitalist consultation on admission U/A ordered to rule out UIT as it is confusing with ED note. Keppra level on 02/13. ED record: EKG WNL (02/11/25). Utox Negative A1C 6.3. THS and Free T4 WNL. Medical plan: mild persistent asthma Not in acute exacerbation Continue albuterol as needed, montelukast and Breo daily HTN Continue lisinopril Hypothyroidism Continue levothyroxine Recent TSH 1.64 with normal free T4 FERMÍN Patient does not use CPAP, offered and she declined Epilepsy Continue Keppra No recent seizure reported EPS Continue benztropine NPH Monitor neuro status. T2DM/peripheral neuropathy Continue consistent carb diet Continue metformin and gabapentin Insulin sliding scale Recent A1c 6.3 Stage IIIA chronic kidney disease Baseline creatinine 1.2 Left knee pain Lidoderm patch to left knee daily Reason for continued inpatient stay Substantial Risk for: inability to function Time Spent With Patient Time: Total time managing care of this patient today ____ minutes.
[2025-02-21 16:11] LABS: Glucose, Whole Blood 189 mg/dL (60-115)
--- NOTE | 2025-02-21 17:11 | PC.NURSE ---
RN collected pt urine for test order requested by Provider Sharon Bhardwaj at 1700 via clean catch and delivered it to the laboratory at 1711.
[2025-02-21 20:00] VITALS: BP 130/68; PULSE 73; RESP 16; TEMP 36.4; O2SAT 95
[2025-02-21 20:54] LABS: Glucose, Whole Blood 194 mg/dL (60-115)
[2025-02-22 07:00] LABS: Glucose, Whole Blood 161 mg/dL (60-115)
[2025-02-22 08:50] VITALS: BP 107/59; PULSE 71; RESP 18; TEMP 36.4; O2SAT 96
[2025-02-22] MEDS: Fluticasone/Vilanterol 100/25 BLST.W.DEV 1 PUFF INHALE (08:55)
[2025-02-22] MEDS: Mirabegron 50 MG TAB.ER.24H PO (08:55)
--- NOTE | 2025-02-22 15:41 | PC.NURSE ---
Patient incontinent of an extra large amount of soft stool after lunch with care. OK to D/C tap water enema per Radha Block NP.
[2025-02-22 16:18] LABS: Glucose, Whole Blood 144 mg/dL (60-115)
[2025-02-22 20:00] VITALS: BP 118/73; PULSE 66; RESP 16; TEMP 36.4; O2SAT 99
--- NOTE | 2025-02-22 20:33 | P.PNPSI_ITS ---
Subjective Subjective Date of Service: 02/22/25 Reason For Visit: F31.9 Subjective Notes: Conditional Voluntary Healthcare Proxy: Yes Guardianship: No Medical Problems Affecting Mental Status: No Interim History: Medical record and nursing notes reviewed; case discussed during rounds with team/nursing staff, and met with patient for supportive therapy/psychoeducation, as well as medication management. Meet with patient in assigned room, reports she ate well but did not sleep well because she was intubated . Denies pain. No BM just yet and last BM was 3 days ago. Pending result from other laxative. Report hearing voices sometimes but not at the moment of assessment. Denies safety concerns. Report less anxious and depressed. Per nursing, patient slept for 6-7 hours, thinking she was , self dialogue Nursing reports patient has large BM this afternoon. Tap water Enema was discontinued. Discontinue Lactulose which was ordered this morning. Delusions, isolated in room this morning, appear depressed, +BM. No safety concerns. Compliant with meds. Medication Compliance: Yes Side effects from medications: No Attending Groups: No Review of Systems Acute medical concerns: No Medical Review of Systems: unchanged Review of Systems Review of Systems Denies any shortness of breath, chest pain, headaches, dysuria, abdominal pain or discomfort, nausea, vomiting or diarrhea. Denies fever or chills. +BM after 3 days. Yes all other systems are reviewed and are negative Mental Status Exam Mental Status Exam Narrative: Appearance: Casual. fair grooming/hygiene, fair eye contact Attitude: Cooperative Speech: Fluent and wnl in regard to volume, tone, prosody Motor activity: Calm and without any tics, tremors or dyskinesias. Mood: 'I am ok Affect: blunted SI: denies HI: denies Thought process: goal directed Thought content: on treatment AH/VH: thinking she is and that she was intubated yesterday by RN. Hearing voices sometimes but not at assessmet time. Delusions: some paranoid delusions, but pt is not fully forthcoming. Insight: fair Judgment:fair Diagnostics Vital Signs (24Hr): Vital Signs - 24 hr 02/22/25 08:50 Temperature 97.5 F Pulse Rate 71 Respiratory Rate 18 Blood Pressure 107/59 L Pulse Oximetry 96 Oxygen Delivery Method Room Air BMI result Body Mass Index 46.0 Labs 02/19/25 08:03 Labs: Laboratory Results - last 48 hr 02/21/25 02/21/25 02/21/25 07:40 16:07 20:01 POC Glucose 169 H 189 H 194 H 02/22/25 02/22/25 06:40 16:13 POC Glucose 161 H 144 H Imaging Radiology Impressions: ITS Impressions KUB X-Ray 02/21/25 11:05 IMPRESSION: Large amount stool throughout the colon. Electronically signed by: Ronan Swanson MD 02/21/2025 11:11 AM [facility] [place] Medications Current Medications Acetaminophen (Acetaminophen 325 Mg Tablet) 975 mg PO TID [facility] Last Admin: 02/22/25 14:30 Dose: 975 mg Al Hydroxide/Mg Hydroxide (Magnesium Hydrox/Alum Hydrox 30 Ml Oral.Susp) 30 ml PO Q6H PRN PRN Reason: Heartburn/Nausea Clopidogrel Bisulfate (Clopidogrel Bisulfate 75 Mg Tablet) 75 mg PO DAILY [facility] Last Admin: 02/22/25 08:54 Dose: 75 mg Dextrose (Dextrose 50 % 25 Gm/50 Ml Syringe) 25 gm IVPUSH Q15M PRN; Protocol PRN Reason: per Hypoglycemia Standing Ord. Ergocalciferol (Ergocalciferol (Vitamin D2) 1,250 Mcg Capsule) 1,250 mcg PO Q30D [facility] Fluphenazine HCl (Fluphenazine Hcl 5 Mg Tablet) 5 mg PO BID [facility] Last Admin: 02/22/25 08:54 Dose: 5 mg Fluticasone/Vilanterol (Fluticasone/Vilanterol 100/25 Blst.W.Dev) 1 puff INHALE RDAILY [facility] Last Admin: 02/22/25 08:55 Dose: 1 puff Gabapentin (Gabapentin 100 Mg Capsule) 200 mg PO BID [facility] Last Admin: 02/22/25 08:53 Dose: 200 mg Glucose (Glucose Gel 15 Gm Gel..Gram.) 15 gm PO Q15M PRN; Protocol PRN Reason: per Hypoglycemia Standing Ord. Levetiracetam (Levetiracetam 500 Mg Tablet) 1,500 mg PO BID [facility] Last Admin: 02/22/25 08:53 Dose: 1,500 mg Levothyroxine Sodium (Levothyroxine Sodium 100 Mcg Tablet) 100 mcg PO DAILY@0600 [facility] Last Admin: 02/22/25 06:28 Dose: 100 mcg Lidocaine (Lidocaine 4 % Patch Adh..Patch) 3 patch TRANSDERMA DAILY PRN; Protocol PRN Reason: Pain, Moderate(Pain Scale 4-6) Lidocaine (Lidocaine 5 % Ointment 35 Gm) 1 appl TOPICAL Q6H PRN; Protocol PRN Reason: Pain, Mild (Pain Scale 1-3) Lisinopril (Lisinopril 5 Mg Tablet) 5 mg PO DAILY [facility]; Protocol Last Admin: 02/22/25 08:55 Dose: 5 mg Lorazepam (Lorazepam 0.5 Mg Tablet) 0.5 mg PO BEDTIME [facility] Last Admin: 02/21/25 20:09 Dose: 0.5 mg Lorazepam (Lorazepam 0.5 Mg Tablet) 0.5 mg PO DAILY@1200 [facility] Last Admin: 02/22/25 11:51 Dose: Not Given Magnesium Hydroxide (Milk Of Magnesia 30 Ml Oral.Susp) 30 ml PO DAILY PRN PRN Reason: Constipation Last Admin: 02/19/25 08:21 Dose: 30 ml Metformin HCl (Metformin Hcl Er 500 Mg Tab.Er.24h) 1,000 mg PO DAILY@1700 [facility] Last Admin: 02/22/25 16:27 Dose: 1,000 mg Miconazole Nitrate (Miconazole 2 % Extra Thick Cr 56.7 Gm Tube) 1 appl TOPICAL BID [facility]; Protocol Last Admin: 02/22/25 11:50 Dose: Not Given Mirabegron (Mirabegron 50 Mg Tab.Er.24h) 50 mg PO DAILY [facility] Last Admin: 02/22/25 08:55 Dose: 50 mg Montelukast Sodium (Montelukast Sodium 10 Mg Tablet) 10 mg PO BEDTIME [facility] Last Admin: 02/21/25 20:09 Dose: 10 mg Nicotine (Nicotine 21 Mg Patch.Td24) 21 mg TRANSDERMA DAILY PRN PRN Reason: nicotine craving Nicotine Polacrilex (Nicotine Polacrilex 2 Mg Gum) 2 mg BUCCAL Q2H PRN PRN Reason: Nicotine Cravings Nitroglycerin (Nitroglycerin 0.4 Mg Tab.Subl) 0.4 mg SUBLINGUAL Q5M PRN PRN Reason: Angina Olanzapine (Olanzapine 5 Mg Tablet) 5 mg PO TID PRN PRN Reason: agitation/hallucination Last Admin: 02/21/25 13:37 Dose: 5 mg Olanzapine (Olanzapine 10 Mg Tablet) 20 mg PO BEDTIME [facility] Last Admin: 02/21/25 20:08 Dose: 20 mg Omeprazole (Omeprazole 20 Mg Capsule.Dr) 20 mg PO DAILY@0630 [facility] Last Admin: 02/22/25 06:40 Dose: 20 mg Polyethylene Glycol (Polyethylene Glycol 3350 17 Gm Powd.Pack) 17 gm PO BID [facility] Last Admin: 02/22/25 08:56 Dose: 17 gm Senna (Sennosides 8.6 Mg Tablet) 17.2 mg PO DAILY PRN PRN Reason: Constipation Senna/Docusate Sodium (Sennosides/Docusate Sodium Tablet) 1 tab PO BID [facility] Last Admin: 02/22/25 08:54 Dose: 1 tab Trazodone HCl (Trazodone Hcl 50 Mg Tablet) 50 mg PO BEDTIME MRX1 PRN PRN Reason: Insomnia Last Admin: 02/15/25 23:41 Dose: 50 mg Trazodone HCl (Trazodone Hcl 50 Mg Tablet) 50 mg PO BEDTIME [facility] Last Admin: 02/21/25 20:09 Dose: 50 mg Allergies Allergies Allergy/AdvReac Type Severity Reaction Status Date / Time ibuprofen Allergy Wheezing Verified 12/05/24 13:10 oxcarbazepine (From Allergy Unknown Verified 03/22/24 20:38 Trileptal) peanut Allergy Unknown Verified 03/22/24 20:38 quetiapine (From Seroquel) Allergy Vomiting Verified 03/22/24 20:38 Assessment & Plan Assessment & Plan (1) Schizoaffective disorder: Status: Acute Code(s): F25.9 - Schizoaffective disorder, unspecified (2) Osteoarthritis: Status: Acute Code(s): M19.90 - Unspecified osteoarthritis, unspecified site (3) Seizure disorder: Status: Acute Code(s): G40.909 - Epilepsy, unspecified, not intractable, without status epilepticus (4) FERMÍN (obstructive sleep apnea): Status: Acute Code(s): G47.33 - Obstructive sleep apnea (adult) (pediatric) (5) CKD (chronic kidney disease): Status: Acute Code(s): N18.9 - Chronic kidney disease, unspecified (6) Type 2 diabetes mellitus: Status: Acute Code(s): E11.9 - Type 2 diabetes mellitus without complications (7) Hypothyroidism: Status: Acute Code(s): E03.9 - Hypothyroidism, unspecified (8) HTN (hypertension): Status: Acute Code(s): I10 - Essential (primary) hypertension Plan Per primary team -Patient is a 64 years old female speaking with history Schizoaffective D/O,,hypothyroidism diabetes, epilepsy, hx of malignant melanoma of skin on the left upper back, migraines, HTN, sleep apnea, dementia with mild with wandering behavior who presented to [facility] ED saying that people are out to get me , and expressing paranoia. She stated that she hears her sister and older voices in her head and telling her to go to other apartments. Patient reported that the voices was laughing at her because she will need to go to inpatient psych again. Sister in law who is her healthcare proxy said that patient's medication has not been working well recently. Reported that the patient has been increase in hallucinations and the voices getting louder. Patient reports that she has been taking medication. However [id number] was not sure if his true. Hospital course: 02/12/25: Continue with home meds. Keppra 1,500mg BID for seizure D/O Metformin 500mg daily. Cogentin 0.5mg BID Plavix 75mg daily Gabapentin 200mg BID Levothyroxine 100mcg daily Ativan 0.5mg daily at HS Myrbetriq 50mg daily Singulair 10mg daily at HS Lisinopril 5mg daily Hx of Aristada LEZAMA. Need to confirm last dose- [place] [facility] [place]. Currently on Rexulti 2mg. Will titrate up to therapeutic dose to target mood/psychosis. 02/13/25: Patient reports that she has a terrible night that she could sleep. But has no issue with appetite. Reports left knee pain 8.5. Reported that her back pain is getting better now. She does not need lidocaine patch for it. Nursing reported that patient told them the patient have neighbor yesterday, was gave to the baby last night. When confirmed with patient during assessment, patient said it was not sure . However, later on she said I am . Reports severe anxiety 12/25. She asked if she can get some trazodone for sleep. She ambulate with a walker, visible at times on the unit. Full range affect. She is paranoid, delusional. We do collateral with outpatient provider to get the information regarding long- acting injection. Patient reports having [facility] manage medication and she cannot recall when was last dose. Trazodone 50mg at HS for insonia Zyprexa 5mg BID PRN for psychosis/agitation. 02/14/25: Patient reports that she slept well last night and feel better, less anxious compared to yesterday even though rate anxiety a 10/24. Denies depression or safety concerns. Report hearing voices of her worker at [employer], her brother and her sister. Patient reports that Zyprexa she received yesterday was helpful. Reviewed with patient regarding meds changes. SW is able to get current meds list from her OP team. Patient was given Aristada on 01/23. Next dose due on 02/20. Per discharge summary in December: Aristada 662mg. Per record obtained today: it appears that patient already received Rexulti up to 4mg. Increase Rexulti to 3mg daily for psychosis. Can increase Rexulti up to 4mg by Monday. Aristada not yet ordered. Will order on the due date. 02/15/25: Continue current tx plan 02/16/25: Ordered 5 mg olanzapine prn for AH/agitation, Senna qhs for constipation and MiraLax prn for constipation. Otherwise continue current tx plan 02/17 scheduled olanzapine 10mg po qhs. continue olanzapine prn. decrease dose of rexulti to 2mg po daily. 02/18 increase olanzapine to 15mg po qhs. 02/19 increase olanzapine 20mg po qhs. continue rexulti. enema for constipation. 02/20 continues to present with paranoid ideas, erotomatic delusions also present. 02/21 constipation continues to be an issue- KUB completed no obstruction. d/c rexulti per pt request. will start prolixin 5mg po BID. continue olanzapine 20mg po qhs. 02/22/25: Meet with patient in assigned room, reports she ate well but did not sleep well because she was intubated . Denies pain. No BM just yet and last BM was 3 days ago. Pending result from other laxative. Report hearing voices sometimes but not at the moment of assessment. Denies safety concerns. Report less anxious and depressed. Per nursing, patient slept for 6-7 hours, thinking she was , self dialogue Nursing reports patient has large BM this afternoon. Tap water Enema was discontinued. Discontinue Lactulose which was ordered this morning. Delusions, isolated in room this morning, appear depressed, +BM. No safety concerns. Compliant with meds. Psychiatric plan: Patient on 5 minute checks for safety. Ambulate using walker. Admitted to S1. CV. Work with treatment team to do collateral with family and OP provider. Sister in law is HCP. Contact the hospitalist regarding hospitalist consultation on admission U/A ordered to rule out UTIas it is confusing with ED note. Keppra level on 02/13. ED record: EKG WNL (02/11/25). Utox Negative A1C 6.3. THS and Free T4 WNL. Medical plan: mild persistent asthma Not in acute exacerbation Continue albuterol as needed, montelukast and Breo daily HTN Continue lisinopril Hypothyroidism Continue levothyroxine Recent TSH 1.64 with normal free T4 FERMÍN Patient does not use CPAP, offered and she declined Epilepsy Continue Keppra No recent seizure reported EPS Continue benztropine NPH Monitor neuro status. T2DM/peripheral neuropathy Continue consistent carb diet Continue metformin and gabapentin Insulin sliding scale Recent A1c 6.3 Stage IIIA chronic kidney disease Baseline creatinine 1.2 Left knee pain Lidoderm patch to left knee daily Patient educated on: medication risk/benefits and therapeutic strategies Informed Consent: understands and further education needed Reason for continued inpatient stay Substantial Risk for: med/psych decompensation Time Spent With Patient Time: Total time managing care of this patient today ____ minutes.
[2025-02-23 08:34] LABS: Glucose, Whole Blood 201 mg/dL (60-115)
[2025-02-23 08:39] VITALS: BP 121/65; PULSE 69; RESP 18; TEMP 36.6; O2SAT 98
[2025-02-23] MEDS: Fluticasone/Vilanterol 100/25 BLST.W.DEV 1 PUFF INHALE (08:40)
[2025-02-23] MEDS: Mirabegron 50 MG TAB.ER.24H PO (08:43)
[2025-02-23 16:19] LABS: Glucose, Whole Blood 231 mg/dL (60-115)
[2025-02-23 20:00] VITALS: BP 124/64; PULSE 67; RESP 16; TEMP 36.3; O2SAT 97
--- NOTE | 2025-02-23 22:55 | P.PNPSI_ITS ---
Subjective Subjective Date of Service: 02/23/25 Reason For Visit: F31.9 Subjective Notes: Conditional Voluntary Healthcare Proxy: Yes Guardianship: No Medical Problems Affecting Mental Status: No Interim History: Medical record and nursing notes reviewed; case discussed during rounds with team/nursing staff, and met with patient for supportive therapy/psychoeducation, as well as medication management. Patient is seen in sensory room, report that she wants to go back to her place and does not want to be here. Denies voices. Denies SI/SIB/HI/VH but paranoid, thinking people are talking about me . Observed walking the [place] at some point without walker. Mood is miserable ,. congruent with mood, denies anxiety or depression. She is happy that she had BM yesterday. Nursing report patient slept for 8 hours, walked in other patient's room. Medication Compliance: Yes Side effects from medications: No Attending Groups: No Review of Systems Acute medical concerns: No Medical Review of Systems: unchanged Review of Systems Review of Systems Denies any shortness of breath, chest pain, headaches, dysuria, abdominal pain or discomfort, nausea, vomiting or diarrhea. Denies fever or chills.. Yes all other systems are reviewed and are negative Mental Status Exam Mental Status Exam Narrative: Appearance: Casual. fair grooming/hygiene, fair eye contact Attitude: Cooperative Speech: Fluent and wnl in regard to volume, tone, prosody Motor activity: Calm and without any tics, tremors or dyskinesias. Mood: 'Miserable Affect: blunted SI: denies HI: denies Thought process: goal directed Thought content: on treatment AH/VH: Denies voices but paranoid Delusions: some paranoid delusions, but pt is not fully forthcoming. Insight: fair Judgment:fair Diagnostics Vital Signs (24Hr): Vital Signs - 24 hr 02/23/25 08:39 02/23/25 20:00 Temperature 97.8 F 97.4 F Pulse Rate 69 67 Respiratory Rate 18 16 Blood Pressure 121/65 124/64 Pulse Oximetry 98 97 Oxygen Delivery Method Room Air Room Air BMI result Body Mass Index 46.0 Labs 02/19/25 08:03 Labs: Laboratory Results - last 48 hr 02/22/25 02/22/25 02/23/25 06:40 16:13 08:28 POC Glucose 161 H 144 H 201 H 02/23/25 16:15 POC Glucose 231 H Imaging Radiology Impressions: ITS Impressions KUB X-Ray 02/21/25 11:05 IMPRESSION: Large amount stool throughout the colon. Electronically signed by: Ronan Swanson MD 02/21/2025 11:11 AM NICHOLE Medications Medications Current Medications Acetaminophen (Acetaminophen 325 Mg Tablet) 975 mg PO TID [facility] Last Admin: 02/23/25 20:40 Dose: 975 mg Al Hydroxide/Mg Hydroxide (Magnesium Hydrox/Alum Hydrox 30 Ml Oral.Susp) 30 ml PO Q6H PRN PRN Reason: Heartburn/Nausea Clopidogrel Bisulfate (Clopidogrel Bisulfate 75 Mg Tablet) 75 mg PO DAILY [facility] Last Admin: 02/23/25 08:42 Dose: 75 mg Dextrose (Dextrose 50 % 25 Gm/50 Ml Syringe) 25 gm IVPUSH Q15M PRN; Protocol PRN Reason: per Hypoglycemia Standing Ord. Ergocalciferol (Ergocalciferol (Vitamin D2) 1,250 Mcg Capsule) 1,250 mcg PO Q30D [facility] Fluphenazine HCl (Fluphenazine Hcl 5 Mg Tablet) 5 mg PO BID [facility] Last Admin: 02/23/25 20:40 Dose: 5 mg Fluticasone/Vilanterol (Fluticasone/Vilanterol 100/25 Blst.W.Dev) 1 puff INHALE RDAILY [facility] Last Admin: 02/23/25 08:40 Dose: 1 puff Gabapentin (Gabapentin 100 Mg Capsule) 200 mg PO BID [facility] Last Admin: 02/23/25 20:41 Dose: 200 mg Glucose (Glucose Gel 15 Gm Gel..Gram.) 15 gm PO Q15M PRN; Protocol PRN Reason: per Hypoglycemia Standing Ord. Levetiracetam (Levetiracetam 500 Mg Tablet) 1,500 mg PO BID [facility] Last Admin: 02/23/25 20:41 Dose: 1,500 mg Levothyroxine Sodium (Levothyroxine Sodium 100 Mcg Tablet) 100 mcg PO DAILY@0600 [facility] Last Admin: 02/23/25 05:30 Dose: 100 mcg Lidocaine (Lidocaine 4 % Patch Adh..Patch) 3 patch TRANSDERMA DAILY PRN; Protocol PRN Reason: Pain, Moderate(Pain Scale 4-6) Lidocaine (Lidocaine 5 % Ointment 35 Gm) 1 appl TOPICAL Q6H PRN; Protocol PRN Reason: Pain, Mild (Pain Scale 1-3) Lisinopril (Lisinopril 5 Mg Tablet) 5 mg PO DAILY [facility]; Protocol Last Admin: 02/23/25 08:43 Dose: 5 mg Lorazepam (Lorazepam 0.5 Mg Tablet) 0.5 mg PO BEDTIME [facility] Last Admin: 02/23/25 20:40 Dose: 0.5 mg Lorazepam (Lorazepam 0.5 Mg Tablet) 0.5 mg PO DAILY@1200 [facility] Last Admin: 02/23/25 11:55 Dose: Not Given Magnesium Hydroxide (Milk Of Magnesia 30 Ml Oral.Susp) 30 ml PO DAILY PRN PRN Reason: Constipation Last Admin: 02/19/25 08:21 Dose: 30 ml Metformin HCl (Metformin Hcl Er 500 Mg Tab.Er.24h) 1,000 mg PO DAILY@1700 [facility] Last Admin: 02/23/25 16:22 Dose: 1,000 mg Miconazole Nitrate (Miconazole 2 % Extra Thick Cr 56.7 Gm Tube) 1 appl TOPICAL BID [facility]; Protocol Last Admin: 02/23/25 20:50 Dose: Not Given Mirabegron (Mirabegron 50 Mg Tab.Er.24h) 50 mg PO DAILY [facility] Last Admin: 02/23/25 08:43 Dose: 50 mg Montelukast Sodium (Montelukast Sodium 10 Mg Tablet) 10 mg PO BEDTIME [facility] Last Admin: 02/23/25 20:40 Dose: 10 mg Nicotine (Nicotine 21 Mg Patch.Td24) 21 mg TRANSDERMA DAILY PRN PRN Reason: nicotine craving Nicotine Polacrilex (Nicotine Polacrilex 2 Mg Gum) 2 mg BUCCAL Q2H PRN PRN Reason: Nicotine Cravings Nitroglycerin (Nitroglycerin 0.4 Mg Tab.Subl) 0.4 mg SUBLINGUAL Q5M PRN PRN Reason: Angina Olanzapine (Olanzapine 5 Mg Tablet) 5 mg PO TID PRN PRN Reason: agitation/hallucination Last Admin: 02/21/25 13:37 Dose: 5 mg Olanzapine (Olanzapine 10 Mg Tablet) 20 mg PO BEDTIME [facility] Last Admin: 02/23/25 20:40 Dose: 20 mg Omeprazole (Omeprazole 20 Mg Capsule.Dr) 20 mg PO DAILY@0630 [facility] Last Admin: 02/23/25 06:12 Dose: 20 mg Polyethylene Glycol (Polyethylene Glycol 3350 17 Gm Powd.Pack) 17 gm PO BID [facility] Last Admin: 02/23/25 20:50 Dose: Not Given Senna (Sennosides 8.6 Mg Tablet) 17.2 mg PO DAILY PRN PRN Reason: Constipation Senna/Docusate Sodium (Sennosides/Docusate Sodium Tablet) 1 tab PO BID [facility] Last Admin: 02/23/25 20:41 Dose: 1 tab Trazodone HCl (Trazodone Hcl 50 Mg Tablet) 50 mg PO BEDTIME MRX1 PRN PRN Reason: Insomnia Last Admin: 02/15/25 23:41 Dose: 50 mg Trazodone HCl (Trazodone Hcl 50 Mg Tablet) 50 mg PO BEDTIME [facility] Last Admin: 02/23/25 20:40 Dose: 50 mg Allergies Allergies Allergy/AdvReac Type Severity Reaction Status Date / Time ibuprofen Allergy Wheezing Verified 12/05/24 13:10 oxcarbazepine (From Allergy Unknown Verified 03/22/24 20:38 Trileptal) peanut Allergy Unknown Verified 03/22/24 20:38 quetiapine (From Seroquel) Allergy Vomiting Verified 03/22/24 20:38 Assessment & Plan Assessment & Plan (1) Schizoaffective disorder: Status: Acute Code(s): F25.9 - Schizoaffective disorder, unspecified (2) Osteoarthritis: Status: Acute Code(s): M19.90 - Unspecified osteoarthritis, unspecified site (3) Seizure disorder: Status: Acute Code(s): G40.909 - Epilepsy, unspecified, not intractable, without status epilepticus (4) FERMÍN (obstructive sleep apnea): Status: Acute Code(s): G47.33 - Obstructive sleep apnea (adult) (pediatric) (5) CKD (chronic kidney disease): Status: Acute Code(s): N18.9 - Chronic kidney disease, unspecified (6) Type 2 diabetes mellitus: Status: Acute Code(s): E11.9 - Type 2 diabetes mellitus without complications (7) Hypothyroidism: Status: Acute Code(s): E03.9 - Hypothyroidism, unspecified (8) HTN (hypertension): Status: Acute Code(s): I10 - Essential (primary) hypertension Plan Per primary team -Patient is a 64 years old female speaking with history Schizoaffective D/O,,hypothyroidism diabetes, epilepsy, hx of malignant melanoma of skin on the left upper back, migraines, HTN, sleep apnea, dementia with mild with wandering behavior who presented to [facility] saying that people are out to get me , and expressing paranoia. She stated that she hears her sister and older voices in her head and telling her to go to other apartments. Patient reported that the voices was laughing at her because she will need to go to inpatient psych again. Sister in law who is her healthcare proxy said that patient's medication has not been working well recently. Reported that the patient has been increase in hallucinations and the voices getting louder. Patient reports that she has been taking medication. However [id number] was not sure if his true. Hospital course: 02/12/25: Continue with home meds. Keppra 1,500mg BID for seizure D/O Metformin 500mg daily. Cogentin 0.5mg BID Plavix 75mg daily Gabapentin 200mg BID Levothyroxine 100mcg daily Ativan 0.5mg daily at HS Myrbetriq 50mg daily Singulair 10mg daily at HS Lisinopril 5mg daily Hx of Aristada LEZAMA. Need to confirm last dose- per [facility] discharge summary in 12/2024. Currently on Rexulti 2mg. Will titrate up to therapeutic dose to target mood/psychosis. 02/13/25: Patient reports that she has a terrible night that she could sleep. But has no issue with appetite. Reports left knee pain 8.5. Reported that her back pain is getting better now. She does not need lidocaine patch for it. Nursing reported that patient told them the patient have neighbor yesterday, was gave to the baby last night. When confirmed with patient during assessment, patient said it was not sure . However, later on she said I am . Reports severe anxiety 12/25. She asked if she can get some trazodone for sleep. She ambulate with a walker, visible at times on the unit. Full range affect. She is paranoid, delusional. We do collateral with outpatient provider to get the information regarding long- acting injection. Patient reports having [facility] manage medication and she cannot recall when was last dose. Trazodone 50mg at HS for insonia Zyprexa 5mg BID PRN for psychosis/agitation. 02/14/25: Patient reports that she slept well last night and feel better, less anxious compared to yesterday even though rate anxiety a 10/24. Denies depression or safety concerns. Report hearing voices of her worker at [employer], her brother and her sister. Patient reports that Zyprexa she received yesterday was helpful. Reviewed with patient regarding meds changes. SW is able to get current meds list from her OP team. Patient was given Aristada on 01/23. Next dose due on 02/20. Per discharge summary in December: Aristada 662mg. Per record obtained today: it appears that patient already received Rexulti up to 4mg. Increase Rexulti to 3mg daily for psychosis. Can increase Rexulti up to 4mg by Monday. Aristada not yet ordered. Will order on the due date. 02/15/25: Continue current tx plan 02/16/25: Ordered 5 mg olanzapine prn for AH/agitation, Senna qhs for constipation and MiraLax prn for constipation. Otherwise continue current tx plan 02/17 scheduled olanzapine 10mg po qhs. continue olanzapine prn. decrease dose of rexulti to 2mg po daily. 02/18 increase olanzapine to 15mg po qhs. 02/19 increase olanzapine 20mg po qhs. continue rexulti. enema for constipation. 02/20 continues to present with paranoid ideas, erotomatic delusions also present. 02/21 constipation continues to be an issue- KUB completed no obstruction. d/c rexulti per pt request. will start prolixin 5mg po BID. continue olanzapine 20mg po qhs. 02/22/25: Meet with patient in assigned room, reports she ate well but did not sleep well because she was intubated . Denies pain. No BM just yet and last BM was 3 days ago. Pending result from other laxative. Report hearing voices sometimes but not at the moment of assessment. Denies safety concerns. Report less anxious and depressed. Per nursing, patient slept for 6-7 hours, thinking she was , self dialogue Nursing reports patient has large BM this afternoon. Tap water Enema was discontinued. Discontinue Lactulose which was ordered this morning. Delusions, isolated in room this morning, appear depressed, +BM. No safety concerns. Compliant with meds. 02/23/25: Patient is seen in sensory room, report that she wants to go back to her place and does not want to be here. Denies voices. Denies SI/SIB/HI/VH but paranoid, thinking people are talking about me . Observed walking the [place] at some point without walker. Mood is miserable ,. congruent with mood, denies anxiety or depression. She is happy that she had BM yesterday. Nursing report patient slept for 8 hours, walked in other patient's room. Psychiatric plan: Patient on 5 minute checks for safety. Ambulate using walker. Admitted to S1. CV. Work with treatment team to do collateral with family and OP provider. Sister in law is HCP. Contact the hospitalist regarding hospitalist consultation on admission U/A ordered to rule out UTIas it is confusing with ED note. Keppra level on 02/13. ED record: EKG WNL (02/11/25). Utox Negative A1C 6.3. THS and Free T4 WNL. Medical plan: mild persistent asthma Not in acute exacerbation Continue albuterol as needed, montelukast and Breo daily HTN Continue lisinopril Hypothyroidism Continue levothyroxine Recent TSH 1.64 with normal free T4 FERMÍN Patient does not use CPAP, offered and she declined Epilepsy Continue Keppra No recent seizure reported EPS Continue benztropine NPH Monitor neuro status. T2DM/peripheral neuropathy Continue consistent carb diet Continue metformin and gabapentin Insulin sliding scale Recent A1c 6.3 Stage IIIA chronic kidney disease Baseline creatinine 1.2 Left knee pain Lidoderm patch to left knee daily Patient educated on: diagnosis, medication risk/benefits and therapeutic strategies Informed Consent: further education needed Reason for continued inpatient stay Substantial Risk for: med/psych decompensation Time Spent With Patient Time: Total time managing care of this patient today ____ minutes.
[2025-02-24 08:00] VITALS: BP 119/62; PULSE 72; RESP 16; TEMP 36.4; O2SAT 94
--- NOTE | 2025-02-24 09:01 | HO.PSYCHPN ---
Subjective Subjective Date of Service: 02/24/25 Reason For Visit: F31.9 Subjective Notes: Conditional Voluntary Interim History: Pt slept over night. Constipation finally resolved this weekend. Pt reports she feels much better. She has been taking prolixin, reports less voices and thinks is better. Pt is usually not forthcoming with extent of delusional content. However, less perseverative in delusional content. visible on the unit, social with select peers. VS stable. no cogwheel nor increase in action tremors with medications. Mental Status Exam Mental Status Exam Narrative: Appearance: Casual. fair grooming/hygiene, fair eye contact Attitude: Cooperative Speech: Fluent and wnl in regard to volume, tone, prosody Motor activity: action and resting tremors bilat. Mood: 'better Affect: congruent, slightly brighter, still constricted at baseline. SI: denies HI: denies Thought process: goal directed Thought content: on treatment AH/VH: less AH Delusions:paranoid delusions and erotomanic delusions, but pt is not fully forthcoming. Insight: fair Judgment:fair Diagnostics Vital Signs (24Hr): Vital Signs - 24 hr 02/23/25 20:00 Temperature 97.4 F Pulse Rate 67 Respiratory Rate 16 Blood Pressure 124/64 Pulse Oximetry 97 Oxygen Delivery Method Room Air BMI result Body Mass Index 46.0 Labs 02/19/25 08:03 Labs: Laboratory Results - last 48 hr 02/22/25 02/23/25 02/23/25 16:13 08:28 16:15 POC Glucose 144 H 201 H 231 H Imaging Radiology Impressions: ITS Impressions KUB X-Ray 02/21/25 11:05 IMPRESSION: Large amount stool throughout the colon. Electronically signed by: Ronan Swanson MD 02/21/2025 11:11 AM [facility] [place] Medications Medications Current Medications Acetaminophen (Acetaminophen 325 Mg Tablet) 975 mg PO TID [facility] Last Admin: 02/23/25 20:40 Dose: 975 mg Al Hydroxide/Mg Hydroxide (Magnesium Hydrox/Alum Hydrox 30 Ml Oral.Susp) 30 ml PO Q6H PRN PRN Reason: Heartburn/Nausea Clopidogrel Bisulfate (Clopidogrel Bisulfate 75 Mg Tablet) 75 mg PO DAILY [facility] Last Admin: 02/23/25 08:42 Dose: 75 mg Dextrose (Dextrose 50 % 25 Gm/50 Ml Syringe) 25 gm IVPUSH Q15M PRN; Protocol PRN Reason: per Hypoglycemia Standing Ord. Ergocalciferol (Ergocalciferol (Vitamin D2) 1,250 Mcg Capsule) 1,250 mcg PO Q30D [facility] Fluphenazine HCl (Fluphenazine Hcl 5 Mg Tablet) 5 mg PO BID [facility] Last Admin: 02/23/25 20:40 Dose: 5 mg Fluticasone/Vilanterol (Fluticasone/Vilanterol 100/25 Blst.W.Dev) 1 puff INHALE RDAILY [facility] Last Admin: 02/23/25 08:40 Dose: 1 puff Gabapentin (Gabapentin 100 Mg Capsule) 200 mg PO BID [facility] Last Admin: 02/23/25 20:41 Dose: 200 mg Glucose (Glucose Gel 15 Gm Gel..Gram.) 15 gm PO Q15M PRN; Protocol PRN Reason: per Hypoglycemia Standing Ord. Levetiracetam (Levetiracetam 500 Mg Tablet) 1,500 mg PO BID [facility] Last Admin: 02/23/25 20:41 Dose: 1,500 mg Levothyroxine Sodium (Levothyroxine Sodium 100 Mcg Tablet) 100 mcg PO DAILY@0600 [facility] Last Admin: 02/24/25 05:00 Dose: 100 mcg Lidocaine (Lidocaine 4 % Patch Adh..Patch) 3 patch TRANSDERMA DAILY PRN; Protocol PRN Reason: Pain, Moderate(Pain Scale 4-6) Lidocaine (Lidocaine 5 % Ointment 35 Gm) 1 appl TOPICAL Q6H PRN; Protocol PRN Reason: Pain, Mild (Pain Scale 1-3) Lisinopril (Lisinopril 5 Mg Tablet) 5 mg PO DAILY [facility]; Protocol Last Admin: 02/23/25 08:43 Dose: 5 mg Lorazepam (Lorazepam 0.5 Mg Tablet) 0.5 mg PO BEDTIME [facility] Last Admin: 02/23/25 20:40 Dose: 0.5 mg Lorazepam (Lorazepam 0.5 Mg Tablet) 0.5 mg PO DAILY@1200 [facility] Last Admin: 02/23/25 11:55 Dose: Not Given Magnesium Hydroxide (Milk Of Magnesia 30 Ml Oral.Susp) 30 ml PO DAILY PRN PRN Reason: Constipation Last Admin: 02/19/25 08:21 Dose: 30 ml Metformin HCl (Metformin Hcl Er 500 Mg Tab.Er.24h) 1,000 mg PO DAILY@1700 [facility] Last Admin: 02/23/25 16:22 Dose: 1,000 mg Miconazole Nitrate (Miconazole 2 % Extra Thick Cr 56.7 Gm Tube) 1 appl TOPICAL BID [facility]; Protocol Last Admin: 02/23/25 20:50 Dose: Not Given Mirabegron (Mirabegron 50 Mg Tab.Er.24h) 50 mg PO DAILY [facility] Last Admin: 02/23/25 08:43 Dose: 50 mg Montelukast Sodium (Montelukast Sodium 10 Mg Tablet) 10 mg PO BEDTIME [facility] Last Admin: 02/23/25 20:40 Dose: 10 mg Nicotine (Nicotine 21 Mg Patch.Td24) 21 mg TRANSDERMA DAILY PRN PRN Reason: nicotine craving Nicotine Polacrilex (Nicotine Polacrilex 2 Mg Gum) 2 mg BUCCAL Q2H PRN PRN Reason: Nicotine Cravings Nitroglycerin (Nitroglycerin 0.4 Mg Tab.Subl) 0.4 mg SUBLINGUAL Q5M PRN PRN Reason: Angina Olanzapine (Olanzapine 5 Mg Tablet) 5 mg PO TID PRN PRN Reason: agitation/hallucination Last Admin: 02/21/25 13:37 Dose: 5 mg Olanzapine (Olanzapine 10 Mg Tablet) 20 mg PO BEDTIME [facility] Last Admin: 02/23/25 20:40 Dose: 20 mg Omeprazole (Omeprazole 20 Mg Capsule.Dr) 20 mg PO DAILY@0630 [facility] Last Admin: 02/24/25 06:00 Dose: 20 mg Polyethylene Glycol (Polyethylene Glycol 3350 17 Gm Powd.Pack) 17 gm PO BID [facility] Last Admin: 02/23/25 20:50 Dose: Not Given Senna (Sennosides 8.6 Mg Tablet) 17.2 mg PO DAILY PRN PRN Reason: Constipation Senna/Docusate Sodium (Sennosides/Docusate Sodium Tablet) 1 tab PO BID [facility] Last Admin: 02/23/25 20:41 Dose: 1 tab Trazodone HCl (Trazodone Hcl 50 Mg Tablet) 50 mg PO BEDTIME MRX1 PRN PRN Reason: Insomnia Last Admin: 02/15/25 23:41 Dose: 50 mg Trazodone HCl (Trazodone Hcl 50 Mg Tablet) 50 mg PO BEDTIME [facility] Last Admin: 02/23/25 20:40 Dose: 50 mg Allergies Allergies Allergy/AdvReac Type Severity Reaction Status Date / Time ibuprofen Allergy Wheezing Verified 12/05/24 13:10 oxcarbazepine (From Allergy Unknown Verified 03/22/24 20:38 Trileptal) peanut Allergy Unknown Verified 03/22/24 20:38 quetiapine (From Seroquel) Allergy Vomiting Verified 03/22/24 20:38 Assessment & Plan Assessment & Plan (1) Schizoaffective disorder: Status: Acute Code(s): F25.9 - Schizoaffective disorder, unspecified (2) Osteoarthritis: Status: Acute Code(s): M19.90 - Unspecified osteoarthritis, unspecified site (3) Seizure disorder: Status: Acute Code(s): G40.909 - Epilepsy, unspecified, not intractable, without status epilepticus (4) FERMÍN (obstructive sleep apnea): Status: Acute Code(s): G47.33 - Obstructive sleep apnea (adult) (pediatric) (5) CKD (chronic kidney disease): Status: Acute Code(s): N18.9 - Chronic kidney disease, unspecified (6) Type 2 diabetes mellitus: Status: Acute Code(s): E11.9 - Type 2 diabetes mellitus without complications (7) Hypothyroidism: Status: Acute Code(s): E03.9 - Hypothyroidism, unspecified (8) HTN (hypertension): Status: Acute Code(s): I10 - Essential (primary) hypertension Plan Per primary team -Patient is a 64 years old female speaking with history Schizoaffective D/O,,hypothyroidism diabetes, epilepsy, hx of malignant melanoma of skin on the left upper back, migraines, HTN, sleep apnea, dementia with mild with wandering behavior who presented to [facility] ED saying that people are out to get me , and expressing paranoia. She stated that she hears her sister and older voices in her head and telling her to go to other apartments. Patient reported that the voices was laughing at her because she will need to go to inpatient psych again. Sister in law who is her healthcare proxy said that patient's medication has not been working well recently. Reported that the patient has been increase in hallucinations and the voices getting louder. Patient reports that she has been taking medication. However [id number] was not sure if his true. Hospital course: 02/12/25: Continue with home meds. Keppra 1,500mg BID for seizure D/O Metformin 500mg daily. Cogentin 0.5mg BID Plavix 75mg daily Gabapentin 200mg BID Levothyroxine 100mcg daily Ativan 0.5mg daily at HS Myrbetriq 50mg daily Singulair 10mg daily at HS Lisinopril 5mg daily Hx of Aristada LEZAMA. Need to confirm last dose- per [facility] discharge summary in 12/2024. Currently on Rexulti 2mg. Will titrate up to therapeutic dose to target mood/psychosis. 02/13/25: Patient reports that she has a terrible night that she could sleep. But has no issue with appetite. Reports left knee pain 8.5. Reported that her back pain is getting better now. She does not need lidocaine patch for it. Nursing reported that patient told them the patient have neighbor yesterday, was gave to the baby last night. When confirmed with patient during assessment, patient said it was not sure . However, later on she said I am . Reports severe anxiety 12/25. She asked if she can get some trazodone for sleep. She ambulate with a walker, visible at times on the unit. Full range affect. She is paranoid, delusional. We do collateral with outpatient provider to get the information regarding long-acting injection. Patient reports having [facility] manage medication and she cannot recall when was last dose. Trazodone 50mg at HS for insonia Zyprexa 5mg BID PRN for psychosis/agitation. 02/14/25: Patient reports that she slept well last night and feel better, less anxious compared to yesterday even though rate anxiety a 7/10. Denies depression or safety concerns. Report hearing voices of her worker at [employer], her brother and her sister. Patient reports that Zyprexa she received yesterday was helpful. Reviewed with patient regarding meds changes. SW is able to get current meds list from her OP team. Patient was given Aristada on 01/23. Next dose due on 02/20. Per discharge summary in December: Aristada 662mg. Per record obtained today: it appears that patient already received Rexulti up to 4mg. Increase Rexulti to 3mg daily for psychosis. Can increase Rexulti up to 4mg by Monday. Aristada not yet ordered. Will order on the due date. 02/15/25: Continue current tx plan 02/16/25: Ordered 5 mg olanzapine prn for AH/agitation, Senna qhs for constipation and MiraLax prn for constipation. Otherwise continue current tx plan 02/17 scheduled olanzapine 10mg po qhs. continue olanzapine prn. decrease dose of rexulti to 2mg po daily. 02/18 increase olanzapine to 15mg po qhs. 02/19 increase olanzapine 20mg po qhs. continue rexulti. enema for constipation. 02/20 continues to present with paranoid ideas, erotomatic delusions also present. 02/21 constipation continues to be an issue- KUB completed no obstruction. d/c rexulti per pt request. will start prolixin 5mg po BID. continue olanzapine 20mg po qhs. 02/22/25: Meet with patient in assigned room, reports she ate well but did not sleep well because she was intubated . Denies pain. No BM just yet and last BM was 3 days ago. Pending result from other laxative. Report hearing voices sometimes but not at the moment of assessment. Denies safety concerns. Report less anxious and depressed. Per nursing, patient slept for 6-7 hours, thinking she was , self dialogue Nursing reports patient has large BM this afternoon. Tap water Enema was discontinued. Discontinue Lactulose which was ordered this morning. Delusions, isolated in room this morning, appear depressed, +BM. No safety concerns. Compliant with meds. 02/23/25: Patient is seen in sensory room, report that she wants to go back to her place and does not want to be here. Denies voices. Denies SI/SIB/HI/VH but paranoid, thinking people are talking about me . Observed walking the [place] at some point without walker. Mood is miserable ,. congruent with mood, denies anxiety or depression. She is happy that she had BM yesterday. Nursing report patient slept for 8 hours, walked in other patient's room. 02/24 pt reports less AH, less paranoid ideas but she is not fully forthcoming, will observe in next few days to see if in fact she is less paranoid. Psychiatric plan: Patient on 5 minute checks for safety. Ambulate using walker. Admitted to S1. CV. Work with treatment team to do collateral with family and OP provider. Sister in law is HCP. Contact the hospitalist regarding hospitalist consultation on admission U/A ordered to rule out UTIas it is confusing with ED note. Keppra level on 02/13. ED record: EKG WNL (02/11/25). Utox Negative A1C 6.3. THS and Free T4 WNL. Medical plan: mild persistent asthma Not in acute exacerbation Continue albuterol as needed, montelukast and Breo daily HTN Continue lisinopril Hypothyroidism Continue levothyroxine Recent TSH 1.64 with normal free T4 FERMÍN Patient does not use CPAP, offered and she declined Epilepsy Continue Keppra No recent seizure reported EPS Continue benztropine NPH Monitor neuro status. T2DM/peripheral neuropathy Continue consistent carb diet Continue metformin and gabapentin Insulin sliding scale Recent A1c 6.3 Stage IIIA chronic kidney disease Baseline creatinine 1.2 Left knee pain Lidoderm patch to left knee daily Reason for continued inpatient stay Substantial Risk for: inability to function Time Spent With Patient Time: Total time managing care of this patient today ____ minutes.
[2025-02-24] MEDS: Fluticasone/Vilanterol 100/25 BLST.W.DEV 1 PUFF INHALE (09:09)
[2025-02-24] MEDS: Mirabegron 50 MG TAB.ER.24H PO (09:10)
[2025-02-24 20:00] VITALS: BP 111/57; PULSE 76; RESP 18; TEMP 36.2; O2SAT 98
[2025-02-25 06:33] LABS: Glucose, Whole Blood 151 mg/dL (60-115)
[2025-02-25 08:00] VITALS: BP 141/66; PULSE 69; RESP 16; TEMP 36.1; O2SAT 96
[2025-02-25] MEDS: Mirabegron 50 MG TAB.ER.24H PO (08:27)
[2025-02-25] MEDS: Fluticasone/Vilanterol 100/25 BLST.W.DEV 1 PUFF INHALE (08:33)
--- NOTE | 2025-02-25 08:52 | P.PNPSI_ITS ---
Subjective Subjective Date of Service: 02/25/25 Reason For Visit: F31.9 Subjective Notes: Conditional Voluntary Interim History: Pt taking medications, sleeping through the night. Pt continues to present with delusions of being , paranoid. No SI/HI. She is upset about being here. She asks when she can leave. She told RN that she needs to be in a maternity unit to give . Encouraged to sign 3 day notice. No aggression towards self or others. Medication Compliance: Yes Mental Status Exam Mental Status Exam Narrative: Appearance: Casual. fair grooming/hygiene, fair eye contact Attitude: Cooperative Speech: Fluent and wnl in regard to volume, tone, prosody Motor activity: action and resting tremors bilat. Mood: 'better Affect: congruent, slightly brighter, still constricted at baseline. SI: denies HI: denies Thought process: goal directed Thought content: on treatment AH/VH: less AH Delusions:paranoid delusions and erotomanic delusions, but pt is not fully forthcoming. Insight: fair Judgment:fair Diagnostics Vital Signs (24Hr): Vital Signs - 24 hr 02/24/25 20:00 02/25/25 08:00 Temperature 97.2 F 97.0 F Pulse Rate 76 69 Respiratory Rate 18 16 Blood Pressure 111/57 L 141/66 H Pulse Oximetry 98 96 Oxygen Delivery Method Room Air Room Air BMI result Body Mass Index 46.0 Labs 02/19/25 08:03 Labs: Laboratory Results - last 48 hr 02/23/25 02/25/25 16:15 06:28 POC Glucose 231 H 151 H Imaging Radiology Impressions: ITS Impressions KUB X-Ray 02/21/25 11:05 IMPRESSION: Large amount stool throughout the colon. Electronically signed by: Ronan Swanson MD 02/21/2025 11:11 AM [facility] Medications Medications Current Medications Acetaminophen (Acetaminophen 325 Mg Tablet) 975 mg PO TID [facility] Last Admin: 02/25/25 08:27 Dose: 975 mg Al Hydroxide/Mg Hydroxide (Magnesium Hydrox/Alum Hydrox 30 Ml Oral.Susp) 30 ml PO Q6H PRN PRN Reason: Heartburn/Nausea Clopidogrel Bisulfate (Clopidogrel Bisulfate 75 Mg Tablet) 75 mg PO DAILY [facility] Last Admin: 02/25/25 08:28 Dose: 75 mg Dextrose (Dextrose 50 % 25 Gm/50 Ml Syringe) 25 gm IVPUSH Q15M PRN; Protocol PRN Reason: per Hypoglycemia Standing Ord. Ergocalciferol (Ergocalciferol (Vitamin D2) 1,250 Mcg Capsule) 1,250 mcg PO Q30D [facility] Fluphenazine HCl (Fluphenazine Hcl 5 Mg Tablet) 5 mg PO BID [facility] Last Admin: 02/25/25 08:28 Dose: 5 mg Fluticasone/Vilanterol (Fluticasone/Vilanterol 100/25 Blst.W.Dev) 1 puff INHALE RDAILY [facility] Last Admin: 02/25/25 08:33 Dose: 1 puff Gabapentin (Gabapentin 100 Mg Capsule) 200 mg PO BID [facility] Last Admin: 02/25/25 08:27 Dose: 200 mg Glucose (Glucose Gel 15 Gm Gel..Gram.) 15 gm PO Q15M PRN; Protocol PRN Reason: per Hypoglycemia Standing Ord. Levetiracetam (Levetiracetam 500 Mg Tablet) 1,500 mg PO BID [facility] Last Admin: 02/25/25 08:27 Dose: 1,500 mg Levothyroxine Sodium (Levothyroxine Sodium 100 Mcg Tablet) 100 mcg PO DAILY@0600 [facility] Last Admin: 02/25/25 05:59 Dose: 100 mcg Lidocaine (Lidocaine 4 % Patch Adh..Patch) 3 patch TRANSDERMA DAILY PRN; Protocol PRN Reason: Pain, Moderate(Pain Scale 4-6) Lidocaine (Lidocaine 5 % Ointment 35 Gm) 1 appl TOPICAL Q6H PRN; Protocol PRN Reason: Pain, Mild (Pain Scale 1-3) Lisinopril (Lisinopril 5 Mg Tablet) 5 mg PO DAILY [facility]; Protocol Last Admin: 02/25/25 08:28 Dose: 5 mg Lorazepam (Lorazepam 0.5 Mg Tablet) 0.5 mg PO BEDTIME [facility] Last Admin: 02/24/25 20:20 Dose: 0.5 mg Lorazepam (Lorazepam 0.5 Mg Tablet) 0.5 mg PO DAILY@1200 [facility] Last Admin: 02/24/25 12:20 Dose: Not Given Magnesium Hydroxide (Milk Of Magnesia 30 Ml Oral.Susp) 30 ml PO DAILY PRN PRN Reason: Constipation Last Admin: 02/19/25 08:21 Dose: 30 ml Metformin HCl (Metformin Hcl Er 500 Mg Tab.Er.24h) 1,000 mg PO DAILY@1700 [facility] Last Admin: 02/24/25 16:36 Dose: 1,000 mg Miconazole Nitrate (Miconazole 2 % Extra Thick Cr 56.7 Gm Tube) 1 appl TOPICAL BID [facility]; Protocol Last Admin: 02/25/25 08:28 Dose: Not Given Mirabegron (Mirabegron 50 Mg Tab.Er.24h) 50 mg PO DAILY [facility] Last Admin: 02/25/25 08:27 Dose: 50 mg Montelukast Sodium (Montelukast Sodium 10 Mg Tablet) 10 mg PO BEDTIME [facility] Last Admin: 02/24/25 20:20 Dose: 10 mg Nicotine (Nicotine 21 Mg Patch.Td24) 21 mg TRANSDERMA DAILY PRN PRN Reason: nicotine craving Nicotine Polacrilex (Nicotine Polacrilex 2 Mg Gum) 2 mg BUCCAL Q2H PRN PRN Reason: Nicotine Cravings Nitroglycerin (Nitroglycerin 0.4 Mg Tab.Subl) 0.4 mg SUBLINGUAL Q5M PRN PRN Reason: Angina Olanzapine (Olanzapine 5 Mg Tablet) 5 mg PO TID PRN PRN Reason: agitation/hallucination Last Admin: 02/21/25 13:37 Dose: 5 mg Olanzapine (Olanzapine 10 Mg Tablet) 20 mg PO BEDTIME [facility] Last Admin: 02/24/25 20:20 Dose: 20 mg Omeprazole (Omeprazole 20 Mg Capsule.Dr) 20 mg PO DAILY@0630 [facility] Last Admin: 02/25/25 06:39 Dose: 20 mg Polyethylene Glycol (Polyethylene Glycol 3350 17 Gm Powd.Pack) 17 gm PO BID [facility] Last Admin: 02/25/25 08:28 Dose: 17 gm Senna (Sennosides 8.6 Mg Tablet) 17.2 mg PO DAILY PRN PRN Reason: Constipation Senna/Docusate Sodium (Sennosides/Docusate Sodium Tablet) 1 tab PO BID [facility] Last Admin: 02/25/25 08:28 Dose: 1 tab Trazodone HCl (Trazodone Hcl 50 Mg Tablet) 50 mg PO BEDTIME MRX1 PRN PRN Reason: Insomnia Last Admin: 02/15/25 23:41 Dose: 50 mg Trazodone HCl (Trazodone Hcl 50 Mg Tablet) 50 mg PO BEDTIME [facility] Last Admin: 02/24/25 20:20 Dose: 50 mg Allergies Allergies Allergy/AdvReac Type Severity Reaction Status Date / Time ibuprofen Allergy Wheezing Verified 12/05/24 13:10 oxcarbazepine (From Allergy Unknown Verified 03/22/24 20:38 Trileptal) peanut Allergy Unknown Verified 03/22/24 20:38 quetiapine (From Seroquel) Allergy Vomiting Verified 03/22/24 20:38 Assessment & Plan Assessment & Plan (1) Schizoaffective disorder: Status: Acute Code(s): F25.9 - Schizoaffective disorder, unspecified (2) Osteoarthritis: Status: Acute Code(s): M19.90 - Unspecified osteoarthritis, unspecified site (3) Seizure disorder: Status: Acute Code(s): G40.909 - Epilepsy, unspecified, not intractable, without status epilepticus (4) FERMÍN (obstructive sleep apnea): Status: Acute Code(s): G47.33 - Obstructive sleep apnea (adult) (pediatric) (5) CKD (chronic kidney disease): Status: Acute Code(s): N18.9 - Chronic kidney disease, unspecified (6) Type 2 diabetes mellitus: Status: Acute Code(s): E11.9 - Type 2 diabetes mellitus without complications (7) Hypothyroidism: Status: Acute Code(s): E03.9 - Hypothyroidism, unspecified (8) HTN (hypertension): Status: Acute Code(s): I10 - Essential (primary) hypertension Plan Per primary team -Patient is a 64 years old female speaking with history Schizoaffective D/O,,hypothyroidism diabetes, epilepsy, hx of malignant melanoma of skin on the left upper back, migraines, HTN, sleep apnea, dementia with mild with wandering behavior who presented to [facility] ED saying that people are out to get me , and expressing paranoia. She stated that she hears her sister and older voices in her head and telling her to go to other apartments. Patient reported that the voices was laughing at her because she will need to go to inpatient psych again. Sister in law who is her healthcare proxy said that patient's medication has not been working well recently. Reported that the patient has been increase in hallucinations and the voices getting louder. Patient reports that she has been taking medication. However trtcpr-go-fio was not sure if his true. Hospital course: 02/12/25: Continue with home meds. Keppra 1,500mg BID for seizure D/O Metformin 500mg daily. Cogentin 0.5mg BID Plavix 75mg daily Gabapentin 200mg BID Levothyroxine 100mcg daily Ativan 0.5mg daily at HS Myrbetriq 50mg daily Singulair 10mg daily at HS Lisinopril 5mg daily Hx of Aristada LEZAMA. Need to confirm last dose- per [facility] discharge summary in 12/2024. Currently on Rexulti 2mg. Will titrate up to therapeutic dose to target mood/psychosis. 02/13/25: Patient reports that she has a terrible night that she could sleep. But has no issue with appetite. Reports left knee pain 8.5. Reported that her back pain is getting better now. She does not need lidocaine patch for it. Nursing reported that patient told them the patient have neighbor yesterday, was gave to the baby last night. When confirmed with patient during assessment, patient said it was not sure . However, later on she said I am . Reports severe anxiety 12/25. She asked if she can get some trazodone for sleep. She ambulate with a walker, visible at times on the unit. Full range affect. She is paranoid, delusional. We do collateral with outpatient provider to get the information regarding long- acting injection. Patient reports having [facility] manage medication and she cannot recall when was last dose. Trazodone 50mg at HS for insonia Zyprexa 5mg BID PRN for psychosis/agitation. 02/14/25: Patient reports that she slept well last night and feel better, less anxious compared to yesterday even though rate anxiety a 7/10. Denies depression or safety concerns. Report hearing voices of her worker at [employer], her brother and her sister. Patient reports that Zyprexa she received yesterday was helpful. Reviewed with patient regarding meds changes. SW is able to get current meds list from her OP team. Patient was given Aristada on 01/23. Next dose due on 02/20. Per discharge summary in December: Aristada 662mg. Per record obtained today: it appears that patient already received Rexulti up to 4mg. Increase Rexulti to 3mg daily for psychosis. Can increase Rexulti up to 4mg by Monday. Aristada not yet ordered. Will order on the due date. 02/15/25: Continue current tx plan 02/16/25: Ordered 5 mg olanzapine prn for AH/agitation, Senna qhs for constipation and MiraLax prn for constipation. Otherwise continue current tx plan 02/17 scheduled olanzapine 10mg po qhs. continue olanzapine prn. decrease dose of rexulti to 2mg po daily. 02/18 increase olanzapine to 15mg po qhs. 02/19 increase olanzapine 20mg po qhs. continue rexulti. enema for constipation. 02/20 continues to present with paranoid ideas, erotomatic delusions also present. 02/21 constipation continues to be an issue- KUB completed no obstruction. d/c rexulti per pt request. will start prolixin 5mg po BID. continue olanzapine 20mg po qhs. 02/22/25: Meet with patient in assigned room, reports she ate well but did not sleep well because she was intubated . Denies pain. No BM just yet and last BM was 3 days ago. Pending result from other laxative. Report hearing voices sometimes but not at the moment of assessment. Denies safety concerns. Report less anxious and depressed. Per nursing, patient slept for 6-7 hours, thinking she was , self dialogue Nursing reports patient has large BM this afternoon. Tap water Enema was discontinued. Discontinue Lactulose which was ordered this morning. Delusions, isolated in room this morning, appear depressed, +BM. No safety concerns. Compliant with meds. 02/23/25: Patient is seen in sensory room, report that she wants to go back to her place and does not want to be here. Denies voices. Denies SI/SIB/HI/VH but paranoid, thinking people are talking about me . Observed walking the [place] at some point without walker. Mood is miserable ,. congruent with mood, denies anxiety or depression. She is happy that she had BM yesterday. Nursing report patient slept for 8 hours, walked in other patient's room. 02/24 pt reports less AH, less paranoid ideas but she is not fully forthcoming, will observe in next few days to see if in fact she is less paranoid. 02/25 increase prolixin 5mg po daily and 10mg po qhs. Psychiatric plan: Patient on 5 minute checks for safety. Ambulate using walker. Admitted to S1. CV. Work with treatment team to do collateral with family and OP provider. Sister in law is HCP. Contact the hospitalist regarding hospitalist consultation on admission U/A ordered to rule out UTIas it is confusing with ED note. Keppra level on 02/13. ED record: EKG WNL (02/11/25). Utox Negative A1C 6.3. THS and Free T4 WNL. Medical plan: mild persistent asthma Not in acute exacerbation Continue albuterol as needed, montelukast and Breo daily HTN Continue lisinopril Hypothyroidism Continue levothyroxine Recent TSH 1.64 with normal free T4 FERMÍN Patient does not use CPAP, offered and she declined Epilepsy Continue Keppra No recent seizure reported EPS Continue benztropine NPH Monitor neuro status. T2DM/peripheral neuropathy Continue consistent carb diet Continue metformin and gabapentin Insulin sliding scale Recent A1c 6.3 Stage IIIA chronic kidney disease Baseline creatinine 1.2 Left knee pain Lidoderm patch to left knee daily Reason for continued inpatient stay Substantial Risk for: inability to function Time Spent With Patient Time: Total time managing care of this patient today ____ minutes.
[2025-02-25 16:24] LABS: Glucose, Whole Blood 132 mg/dL (60-115)
[2025-02-25 20:00] VITALS: BP 139/58; PULSE 81; RESP 17; TEMP 37; O2SAT 95
[2025-02-26 06:51] LABS: Glucose, Whole Blood 159 mg/dL (60-115)
[2025-02-26 07:50] VITALS: BP 121/71; PULSE 77; RESP 18; TEMP 36.7; O2SAT 95
[2025-02-26] MEDS: Mirabegron 50 MG TAB.ER.24H PO (08:04)
[2025-02-26] MEDS: Miconazole 2 % Extra Thick Cr 56.7 Gm Tube 1 APPL TOPICAL (08:05)
[2025-02-26] MEDS: Fluticasone/Vilanterol 100/25 BLST.W.DEV 1 PUFF INHALE (08:05)
[2025-02-26 08:36] LABS: Creatinine Clr Calc Pharmacy 57.4; Estimated Glomerular Filt Rate 51
[2025-02-26 11:29] LABS: Glucose, Whole Blood 236 mg/dL (60-115)
--- NOTE | 2025-02-26 16:06 | P.PNPSI_ITS ---
Subjective Subjective Date of Service: 02/26/25 Reason For Visit: F31.9 Subjective Notes: Conditional Voluntary Interim History: Pt slept through the night. SHe continues to present with paranoid delusions, some erotomatic delusions. She reports she was pending endoscopy and had pending swallowing exam. She asks to be discharged soon. She is guarded and not fully forthcoming in terms of extend of delusional content but no safety concerns to continue tx in the community. She has been consistent taking medications. Medication Compliance: Yes Mental Status Exam Mental Status Exam Narrative: Appearance: Casual. fair grooming/hygiene, fair eye contact Attitude: Cooperative Speech: Fluent and wnl in regard to volume, tone, prosody Motor activity: action and resting tremors bilat. Mood: 'better Affect: congruent, slightly brighter, still constricted at baseline. SI: denies HI: denies Thought process: goal directed Thought content: on treatment AH/VH: less AH Delusions:paranoid delusions and erotomanic delusions, but pt is not fully forthcoming. Insight: fair Judgment:fair Diagnostics Vital Signs (24Hr): Vital Signs - 24 hr 02/25/25 20:00 02/26/25 07:50 Temperature 98.6 F 98.1 F Pulse Rate 81 77 Respiratory Rate 17 18 Blood Pressure 139/58 L 121/71 Pulse Oximetry 95 95 Oxygen Delivery Method Room Air Room Air BMI result Body Mass Index 46.0 Labs 02/26/25 07:12 Labs: Laboratory Results - last 48 hr 02/25/25 02/25/25 02/26/25 06:28 16:21 06:34 Creatinine Estim Creat Clear Calc Estimated GFR POC Glucose 151 H 132 H 159 H 02/26/25 02/26/25 07:12 11:25 Creatinine 1.08 Estim Creat Clear Calc 57.4 Estimated GFR 51 POC Glucose 236 H Imaging Radiology Impressions: ITS Impressions KUB X-Ray 02/21/25 11:05 IMPRESSION: Large amount stool throughout the colon. Electronically signed by: Ronan Swanson MD 02/21/2025 11:11 AM [facility] Medications Medications Current Medications Acetaminophen (Acetaminophen 325 Mg Tablet) 975 mg PO TID [facility] Last Admin: 02/26/25 14:18 Dose: 975 mg Al Hydroxide/Mg Hydroxide (Magnesium Hydrox/Alum Hydrox 30 Ml Oral.Susp) 30 ml PO Q6H PRN PRN Reason: Heartburn/Nausea Clopidogrel Bisulfate (Clopidogrel Bisulfate 75 Mg Tablet) 75 mg PO DAILY [facility] Last Admin: 02/26/25 08:05 Dose: 75 mg Dextrose (Dextrose 50 % 25 Gm/50 Ml Syringe) 25 gm IVPUSH Q15M PRN; Protocol PRN Reason: per Hypoglycemia Standing Ord. Ergocalciferol (Ergocalciferol (Vitamin D2) 1,250 Mcg Capsule) 1,250 mcg PO Q30D [facility] Fluphenazine HCl (Fluphenazine Hcl 5 Mg Tablet) 10 mg PO BID [facility] Fluticasone/Vilanterol (Fluticasone/Vilanterol 100/25 Blst.W.Dev) 1 puff INHALE RDAILY [facility] Last Admin: 02/26/25 08:05 Dose: 1 puff Gabapentin (Gabapentin 100 Mg Capsule) 200 mg PO BID [facility] Last Admin: 02/26/25 08:04 Dose: 200 mg Glucose (Glucose Gel 15 Gm Gel..Gram.) 15 gm PO Q15M PRN; Protocol PRN Reason: per Hypoglycemia Standing Ord. Levetiracetam (Levetiracetam 500 Mg Tablet) 1,500 mg PO BID [facility] Last Admin: 02/26/25 08:03 Dose: 1,500 mg Levothyroxine Sodium (Levothyroxine Sodium 100 Mcg Tablet) 100 mcg PO DAILY@0600 [facility] Last Admin: 02/26/25 06:20 Dose: 100 mcg Lidocaine (Lidocaine 4 % Patch Adh..Patch) 3 patch TRANSDERMA DAILY PRN; Protocol PRN Reason: Pain, Moderate(Pain Scale 4-6) Lidocaine (Lidocaine 5 % Ointment 35 Gm) 1 appl TOPICAL Q6H PRN; Protocol PRN Reason: Pain, Mild (Pain Scale 1-3) Lisinopril (Lisinopril 5 Mg Tablet) 5 mg PO DAILY [facility]; Protocol Last Admin: 02/26/25 08:05 Dose: 5 mg Lorazepam (Lorazepam 0.5 Mg Tablet) 0.5 mg PO BEDTIME [facility] Last Admin: 02/25/25 21:14 Dose: 0.5 mg Lorazepam (Lorazepam 0.5 Mg Tablet) 0.5 mg PO DAILY@1200 [facility] Last Admin: 02/26/25 11:44 Dose: 0.5 mg Magnesium Hydroxide (Milk Of Magnesia 30 Ml Oral.Susp) 30 ml PO DAILY PRN PRN Reason: Constipation Last Admin: 02/19/25 08:21 Dose: 30 ml Metformin HCl (Metformin Hcl Er 500 Mg Tab.Er.24h) 1,000 mg PO DAILY@1700 [facility] Last Admin: 02/25/25 16:01 Dose: 1,000 mg Miconazole Nitrate (Miconazole 2 % Extra Thick Cr 56.7 Gm Tube) 1 appl TOPICAL BID [facility]; Protocol Last Admin: 02/26/25 08:05 Dose: 1 appl Mirabegron (Mirabegron 50 Mg Tab.Er.24h) 50 mg PO DAILY [facility] Last Admin: 02/26/25 08:04 Dose: 50 mg Montelukast Sodium (Montelukast Sodium 10 Mg Tablet) 10 mg PO BEDTIME [facility] Last Admin: 02/25/25 21:15 Dose: 10 mg Nicotine (Nicotine 21 Mg Patch.Td24) 21 mg TRANSDERMA DAILY PRN PRN Reason: nicotine craving Nicotine Polacrilex (Nicotine Polacrilex 2 Mg Gum) 2 mg BUCCAL Q2H PRN PRN Reason: Nicotine Cravings Nitroglycerin (Nitroglycerin 0.4 Mg Tab.Subl) 0.4 mg SUBLINGUAL Q5M PRN PRN Reason: Angina Olanzapine (Olanzapine 5 Mg Tablet) 5 mg PO TID PRN PRN Reason: agitation/hallucination Last Admin: 02/25/25 17:46 Dose: 5 mg Olanzapine (Olanzapine 10 Mg Tablet) 20 mg PO BEDTIME [facility] Last Admin: 02/25/25 21:16 Dose: 20 mg Omeprazole (Omeprazole 20 Mg Capsule.Dr) 20 mg PO DAILY@0630 [facility] Last Admin: 02/26/25 06:29 Dose: 20 mg Polyethylene Glycol (Polyethylene Glycol 3350 17 Gm Powd.Pack) 17 gm PO BID [facility] Last Admin: 02/26/25 08:06 Dose: 17 gm Senna (Sennosides 8.6 Mg Tablet) 17.2 mg PO DAILY PRN PRN Reason: Constipation Senna/Docusate Sodium (Sennosides/Docusate Sodium Tablet) 1 tab PO BID [facility] Last Admin: 02/26/25 08:04 Dose: 1 tab Trazodone HCl (Trazodone Hcl 50 Mg Tablet) 50 mg PO BEDTIME MRX1 PRN PRN Reason: Insomnia Last Admin: 02/15/25 23:41 Dose: 50 mg Trazodone HCl (Trazodone Hcl 50 Mg Tablet) 50 mg PO BEDTIME [facility] Last Admin: 02/25/25 21:15 Dose: 50 mg Allergies Allergies Allergy/AdvReac Type Severity Reaction Status Date / Time ibuprofen Allergy Wheezing Verified 12/05/24 13:10 oxcarbazepine (From Allergy Unknown Verified 03/22/24 20:38 Trileptal) peanut Allergy Unknown Verified 03/22/24 20:38 quetiapine (From Seroquel) Allergy Vomiting Verified 03/22/24 20:38 Assessment & Plan Assessment & Plan (1) Schizoaffective disorder: Status: Acute Code(s): F25.9 - Schizoaffective disorder, unspecified (2) Osteoarthritis: Status: Acute Code(s): M19.90 - Unspecified osteoarthritis, unspecified site (3) Seizure disorder: Status: Acute Code(s): G40.909 - Epilepsy, unspecified, not intractable, without status epilepticus (4) FERMÍN (obstructive sleep apnea): Status: Acute Code(s): G47.33 - Obstructive sleep apnea (adult) (pediatric) (5) CKD (chronic kidney disease): Status: Acute Code(s): N18.9 - Chronic kidney disease, unspecified (6) Type 2 diabetes mellitus: Status: Acute Code(s): E11.9 - Type 2 diabetes mellitus without complications (7) Hypothyroidism: Status: Acute Code(s): E03.9 - Hypothyroidism, unspecified (8) HTN (hypertension): Status: Acute Code(s): I10 - Essential (primary) hypertension Plan Per primary team -Patient is a 64 years old female speaking with history Schizoaffective D/O,,hypothyroidism diabetes, epilepsy, hx of malignant melanoma of skin on the left upper back, migraines, HTN, sleep apnea, dementia with mild with wandering behavior who presented to [facility] ED saying that people are out to get me , and expressing paranoia. She stated that she hears her sister and older voices in her head and telling her to go to other apartments. Patient reported that the voices was laughing at her because she will need to go to inpatient psych again. Sister in law who is her healthcare proxy said that patient's medication has not been working well recently. Reported that the patient has been increase in hallucinations and the voices getting louder. Patient reports that she has been taking medication. However [id number] was not sure if his true. Hospital course: 02/12/25: Continue with home meds. Keppra 1,500mg BID for seizure D/O Metformin 500mg daily. Cogentin 0.5mg BID Plavix 75mg daily Gabapentin 200mg BID Levothyroxine 100mcg daily Ativan 0.5mg daily at HS Myrbetriq 50mg daily Singulair 10mg daily at HS Lisinopril 5mg daily Hx of Aristada LEZAMA. Need to confirm last dose- per [facility] [place] summary in 12/2024. Currently on Rexulti 2mg. Will titrate up to therapeutic dose to target mood/psychosis. 02/13/25: Patient reports that she has a terrible night that she could sleep. But has no issue with appetite. Reports left knee pain 8.5. Reported that her back pain is getting better now. She does not need lidocaine patch for it. Nursing reported that patient told them the patient have neighbor yesterday, was gave to the baby last night. When confirmed with patient during assessment, patient said it was not sure . However, later on she said I am . Reports severe anxiety 12/25. She asked if she can get some trazodone for sleep. She ambulate with a walker, visible at times on the unit. Full range affect. She is paranoid, delusional. We do collateral with outpatient provider to get the information regarding long- acting injection. Patient reports having [facility] manage medication and she cannot recall when was last dose. Trazodone 50mg at HS for insonia Zyprexa 5mg BID PRN for psychosis/agitation. 02/14/25: Patient reports that she slept well last night and feel better, less anxious compared to yesterday even though rate anxiety a 7/10. Denies depression or safety concerns. Report hearing voices of her worker at [employer], her brother and her sister. Patient reports that Zyprexa she received yesterday was helpful. Reviewed with patient regarding meds changes. SW is able to get current meds list from her OP team. Patient was given Aristada on 01/23. Next dose due on 02/20. Per discharge summary in December: Aristada 662mg. Per record obtained today: it appears that patient already received Rexulti up to 4mg. Increase Rexulti to 3mg daily for psychosis. Can increase Rexulti up to 4mg by Monday. Aristada not yet ordered. Will order on the due date. 02/15/25: Continue current tx plan 02/16/25: Ordered 5 mg olanzapine prn for AH/agitation, Senna qhs for constipation and MiraLax prn for constipation. Otherwise continue current tx plan 02/17 scheduled olanzapine 10mg po qhs. continue olanzapine prn. decrease dose of rexulti to 2mg po daily. 02/18 increase olanzapine to 15mg po qhs. 02/19 increase olanzapine 20mg po qhs. continue rexulti. enema for constipation. 02/20 continues to present with paranoid ideas, erotomatic delusions also present. 02/21 constipation continues to be an issue- KUB completed no obstruction. d/c rexulti per pt request. will start prolixin 5mg po BID. continue olanzapine 20mg po qhs. 02/22/25: Meet with patient in assigned room, reports she ate well but did not sleep well because she was intubated . Denies pain. No BM just yet and last BM was 3 days ago. Pending result from other laxative. Report hearing voices sometimes but not at the moment of assessment. Denies safety concerns. Report less anxious and depressed. Per nursing, patient slept for 6-7 hours, thinking she was , self dialogue Nursing reports patient has large BM this afternoon. Tap water Enema was discontinued. Discontinue Lactulose which was ordered this morning. Delusions, isolated in room this morning, appear depressed, +BM. No safety concerns. Compliant with meds. 02/23/25: Patient is seen in sensory room, report that she wants to go back to her place and does not want to be here. Denies voices. Denies SI/SIB/HI/VH but paranoid, thinking people are talking about me . Observed walking the [place] at some point without walker. Mood is miserable ,. congruent with mood, denies anxiety or depression. She is happy that she had BM yesterday. Nursing report patient slept for 8 hours, walked in other patient's room. 02/24 pt reports less AH, less paranoid ideas but she is not fully forthcoming, will observe in next few days to see if in fact she is less paranoid. 02/25 increase prolixin 5mg po daily and 10mg po qhs. 02/26 increased prolixin to 10mg po BID. continue olanzapine 20mg po qhs. Psychiatric plan: Patient on 5 minute checks for safety. Ambulate using walker. Admitted to S1. CV. Work with treatment team to do collateral with family and OP provider. Sister in law is HCP. Contact the hospitalist regarding hospitalist consultation on admission U/A ordered to rule out UTIas it is confusing with ED note. Keppra level on 02/13. ED record: EKG WNL (02/11/25). Utox Negative A1C 6.3. THS and Free T4 WNL. Medical plan: mild persistent asthma Not in acute exacerbation Continue albuterol as needed, montelukast and Breo daily HTN Continue lisinopril Hypothyroidism Continue levothyroxine Recent TSH 1.64 with normal free T4 FERMÍN Patient does not use CPAP, offered and she declined Epilepsy Continue Keppra No recent seizure reported EPS Continue benztropine NPH Monitor neuro status. T2DM/peripheral neuropathy Continue consistent carb diet Continue metformin and gabapentin Insulin sliding scale Recent A1c 6.3 Stage IIIA chronic kidney disease Baseline creatinine 1.2 Left knee pain Lidoderm patch to left knee daily Reason for continued inpatient stay Substantial Risk for: inability to function Time Spent With Patient Time: Total time managing care of this patient today ____ minutes.
[2025-02-26 20:00] VITALS: BP 128/78; PULSE 68; RESP 16; TEMP 36.6; O2SAT 98
[2025-02-27 07:03] LABS: Glucose, Whole Blood 212 mg/dL (60-115)
[2025-02-27 08:00] VITALS: BP 126/72; PULSE 72; TEMP 36.8; O2SAT 96
[2025-02-27] MEDS: Fluticasone/Vilanterol 100/25 BLST.W.DEV 1 PUFF INHALE (08:23)
[2025-02-27] MEDS: Mirabegron 50 MG TAB.ER.24H PO (08:25)
--- NOTE | 2025-02-27 09:41 | PM.PSYDC ---
DS: Providers Provider Date of Service: 02/27/25 Date of admission: 02/11/25 15:15 Date of discharge: 02/27/25 Primary care physician: Unknown Physician Consults: 02/11/25 12:03 Consult to Hospitalist Routine Comment: Consulting Provider: [facility] [place] Hospitalists Reason For Exam: New external admit H+P 02/18/25 14:29 Consult to Hospitalist Routine Comment: Consulting Provider: [facility] [place] Hospitalists Reason For Exam: right hip/knee pain DS: Diagnosis Discharge Diagnosis (1) Schizoaffective disorder: Status: Acute (2) Osteoarthritis: Status: Acute (3) Seizure disorder: Status: Acute (4) FERMÍN (obstructive sleep apnea): Status: Acute (5) CKD (chronic kidney disease): Status: Acute (6) Type 2 diabetes mellitus: Status: Acute (7) Hypothyroidism: Status: Acute (8) HTN (hypertension): Status: Acute DS: Medications Discharge Medications Home Medications: Home Medications ?Medication ?Instructions ?Recorded ?Confirmed levetiracetam 500 mg tablet 1,500 mg PO BID 12/05/24 02/11/25 lorazepam 0.5 mg tablet 0.5 mg PO BEDTIME 12/06/24 02/11/25 miconazole nitrate 2 % topical 1 appl topical BID 12/06/24 02/11/25 cream montelukast 10 mg tablet 10 mg PO BEDTIME 12/06/24 02/11/25 brexpiprazole 2 mg tablet 2 mg PO DAILY 02/11/25 02/11/25 clopidogrel 75 mg tablet 75 mg PO DAILY 02/11/25 02/11/25 ergocalciferol (vitamin D2) 1,250 1,250 mcg PO QMONTH 02/11/25 02/11/25 mcg (50,000 unit) capsule gabapentin 100 mg capsule 200 mg PO BID 02/11/25 02/11/25 nitroglycerin 0.4 mg sublingual 0.4 mg sublingual Q5M PRN Angina 02/11/25 02/11/25 tablet pantoprazole 40 mg tablet,delayed 40 mg PO DAILY 02/11/25 02/11/25 release pyridoxine (vitamin B6) 25 mg 25 mg PO DAILY 02/11/25 02/11/25 tablet Previous Rx's ?Medication ?Instructions ?Recorded benztropine 1 mg tablet 1 mg PO BID 30 days #60 tabs 04/08/24 fluticasone furoate 100 1 inh inhalation DAILY 30 days #60 04/08/24 mcg-vilanterol 25 mcg/dose ea inhalation powder (Breo Ellipta) levothyroxine 100 mcg tablet 100 mcg PO DAILY@0600 30 days #30 04/08/24 (Synthroid) tabs lisinopril 5 mg tablet 5 mg PO DAILY 30 days #30 tabs 04/08/24 mirabegron 50 mg tablet,extended 50 mg PO DAILY 30 days #30 tabs 04/08/24 release 24 hr (Myrbetriq) acetaminophen 325 mg tablet 650 mg (2 x 325 mg) PO Q6H PRN 12/19/24 Headache/Pain, Scale 1-10 #0 tabs metformin 500 mg tablet,extended 500 mg PO DAILY@1700 #0 tabs 12/19/24 release 24 hr trazodone 50 mg tablet 50 mg PO BEDTIME PRN Insomnia #0 12/19/24 tabs Mental Status Exam Mental Status Exam Narrative: Appearance: Casual. fair grooming/hygiene, fair eye contact Attitude: Cooperative Speech: Fluent and wnl in regard to volume, tone, prosody Motor activity: action and resting tremors bilat. Mood: 'better Affect: congruent, slightly brighter, still constricted at baseline. SI: denies HI: denies Thought process: goal directed Thought content: on treatment AH/VH: less AH Delusions:paranoid delusions and erotomanic delusions, but pt is not fully forthcoming. Insight: fair Judgment:fair Data Data Completed and Pending Completed studies during hospitalization [Text1]: 02/20/25 02/20/25 02/21/25 13:30 16:28 07:40 Creatinine Estim Creat Clear Calc Estimated GFR POC Glucose 185 H 169 H Urine Color Yellow Urine Appearance Clear Urine pH 5.5 Ur Specific [place] 1.010 Urine Protein Negative Urine Glucose (UA) Negative Urine Ketones Negative Urine Blood Negative Urine Nitrite Negative Ur Leukocyte Esterase Moderate (2+) H Urine RBC 0-2 Urine WBC 11-20 H Ur Squamous Epith Cells 0-2 Urine Bacteria None Seen Hyaline Casts 0-2 02/21/25 02/21/25 02/22/25 16:07 20:01 06:40 Creatinine Estim Creat Clear Calc Estimated GFR POC Glucose 189 H 194 H 161 H Urine Color Urine Appearance Urine pH Ur Specific [place] Urine Protein Urine Glucose (UA) Urine Ketones Urine Blood Urine Nitrite Ur Leukocyte Esterase Urine RBC Urine WBC Ur Squamous Epith Cells Urine Bacteria Hyaline Casts 02/22/25 02/23/25 02/23/25 16:13 08:28 16:15 Creatinine Estim Creat Clear Calc Estimated GFR POC Glucose 144 H 201 H 231 H Urine Color Urine Appearance Urine pH Ur Specific [place] Urine Protein Urine Glucose (UA) Urine Ketones Urine Blood Urine Nitrite Ur Leukocyte Esterase Urine RBC Urine WBC Ur Squamous Epith Cells Urine Bacteria Hyaline Casts 02/25/25 02/25/25 02/26/25 06:28 16:21 06:34 Creatinine Estim Creat Clear Calc Estimated GFR POC Glucose 151 H 132 H 159 H Urine Color Urine Appearance Urine pH Ur Specific [place] Urine Protein Urine Glucose (UA) Urine Ketones Urine Blood Urine Nitrite Ur Leukocyte Esterase Urine RBC Urine WBC Ur Squamous Epith Cells Urine Bacteria Hyaline Casts 02/26/25 02/26/25 02/27/25 07:12 11: 06:55 Creatinine 1.08 Estim Creat Clear Calc 57.4 Estimated GFR 51 POC Glucose 236 H 212 H Urine Color Urine Appearance Urine pH Ur Specific [place] Urine Protein Urine Glucose (UA) Urine Ketones Urine Blood Urine Nitrite Ur Leukocyte Esterase Urine RBC Urine WBC Ur Squamous Epith Cells Urine Bacteria Hyaline Casts 02/13/25 16:59 Urine clean catch - Clean Catch Midstream Urine Culture - Final No growth. Imaging Diagnostic Imaging Impressions KUB X-Ray 02/21/25 11:05 IMPRESSION: Large amount stool throughout the colon. Electronically signed by: Ronan Swanson MD 02/21/2025 11:11 AM [facility] DS: Summary Hospital Course Hospital Course: HPI: Per crisis note from [facility]: Patient is a 64 years old female speaking with history schizoaffective D/O, hypothyroidism diabetes, epilepsy, hx of malignant melanoma of skin on the left upper back, migraines, HTN, dementia with mild with wandering behavior who presented to [facility] ED saying that people are out to get me , and expressing paranoia. She stated that she hears her sister and older voices in her head and telling her to go to other apartments. Patient reported that the voices was laughing at her because she will need to go to inpatient psych again. Sister in law who is her healthcare proxy said that patient's medication has not been working well recently. Reported that the patient has been increase in hallucinations and the voices getting louder. Patient reports that she has been taking medication. However [id number] was not sure if his true. Reports HI toward her sister that she wanted to hurt her sister Haydee as Haydee has been harassing me . Patient stated that she is able to hear her sister in her head. Denies plan or intention to harm her sister On S1: Reason for admission I have heart murmur. I have whole in my hard. EKG was done. Defined not think. I do not know . Patient also reported that she heard the altercation at the apartment and I called police . They said that this no altercation when the police arrived and got her to the hospital. Patient can not tell the rationale of why and what happened the police brought her to the hospital. Denies substance use, denies legal issues, denies SI, SIB/HI/VH. However reported that she had history of SIB by hitting the wall when she got frustrated. Denies suicidal history. Denies suicide attempts. Reported that she has been hearing voices this week but I do not remember when asked what actually the voices telling her what she hears. She reported that she hears staffing talking about her in the nurse station. Reports declines in sleep but appetite is good. Reported that she has has been sleeping well since he got to the hospital usually she goes to bed at 8 and wake up at 5 as her normal pattern. Reports that she feels anxious all the time. Denies depression or manic behaviors lately. Goals for this admission is to get better, getting therapy and exercise. Currently does no psych cut just but has therapist through [facility]. Reported that medication managed by PCP. Patient is A+O x4, Wearing hospital attire. Ambulate using walker. Mood is anxious. Speech is within normal limit, normal rate and volume. No ADLs issues. Thought process is somewhat organized, but appeared to be paranoid, full range affect. Thought content is within normal limit, with experiencing AVH at the assessment. No SI/SIB or HI. Poor judgment and insight. Will continue with home meds with [facility] is titrating up per ED record. Past Psychiatric History: [facility] admissions: reports more than 10. Most recent was on S1 in 12/2024. SA: denies SIB: denies. Hx of hitting the wall when frustrated outpt: reports none presently but had prescriber as recently as 4 weeks ago. unclear what she perceives has changed. Therapist Marielos at [facility] Reviewed: Hospitalist [facility] Pending HOSPITAL COURSE On the unit, pt was admitted on a CV and placed on 15 minutes checks for safety. Pt presented with combination of paranoid delusions thinking people were trying to harm her but she also had some erotomatic delusions thinking peers were romantically interested in her which she knew as she insisted others could read her thoughts. She also thought she was despite being post total hysterectomy and age. She had been on Aristada 662mg IM q4 weeks. No SI/HI. Nor hx of aggression towards self or others. She had also been trialed on rexulti in combination to aristada. Initially pt's rexulti was titrated to the max dose of 3mg po daily. She continues to show paranoid and erotomatic delusions. She had been using olanzapine prn as needed which found helpful. We decided to schedule olanzapine- we did discuss at [facility] that given her dx of DM, olanzapine can increase insulin resistance. However, she insisted to continue on olanzapine which was titrated on olanzapine 20mg po qhs. Decision was to not continue Aristada. Given that she continued to have paranoid delusions on scheduled olanzapine, we discussed adding a higher potency antipsychotic. Pt had reported she had responded to haldol but had EPS. She does have at baseline action tremor bilat. Prolixin although higher potency antipsychotic, less so than haldol. She was started on proloxin which was titrated to 10mg po BID. No exacerbation of EPS has been noted, although as mentioned above she does have at baseline action tremors bilat. She continued to have paranoid delusions but insisted to be discharged and continue treatment outpatient. Given that there are no safety concerns in terms of aggression towards self or others, nor HI/SI and she is consistent with taking medications, pt's wishes were honor. I do recommend that if pt does well on prolixin to taper off olanzapine and keep only ONE antipsychotic. On the other hand, if pt continues to be symptomatic, she would be candidate for clozapine monotherapy as this is one medication she has not been on. Status at Discharge Cognitive/behavioral status at discharge: Pt with somewhat guarded affect. No SI/HI. Continues to have residual symptoms of psychosis and paranoid/erotomatic delusions. No aggression towards self or others. Functional status at discharge: uses cane/walker Overall status at discharge: patient is progressing back to baseline Time Spent with Patient Time attestation: Total time managing care of this patient today 35__ minutes. Time spent: Greater than 30 minutes Discharge Plan Discharge Anticipated Discharge Date/Time: 02/27/25 10:08 Patient Disposition: Home, Self-Care Discharge Diagnosis: Schizoaffective disorder Referrals: [email or web address] [Other] - 1 Week Referral Note: Follow up with your [facility] providers and day program. Discharge Medications: New acetaminophen 325 mg Tablet 975 mg PO TID Qty: 0 0RF clopidogrel 75 mg Tablet 75 mg PO DAILY Qty: 0 0RF nitroglycerin [Nitrostat] 0.4 mg Tablet, Sublingual 0.4 mg sublingual Q5M PRN (Reason: Angina) Qty: 0 0RF lisinopril 5 mg Tablet 5 mg PO DAILY Qty: 0 0RF Protocol: Hold for SBP< HOLD for SBP < : 90 fluticasone furoate-vilanterol [Breo Ellipta] 100-25 mcg/dose Blister With Device 1 inh inhalation RDAILY Qty: 0 0RF fluphenazine HCl 10 mg tablet 10 mg PO BID Qty: 60 0RF trazodone 50 mg Tablet 50 mg PO BEDTIME Qty: 0 0RF polyethylene glycol 3350 17 gram Powder In Packet 17 g PO BID Qty: 0 0RF levetiracetam 500 mg Tablet 1,500 mg PO BID Qty: 0 0RF sennosides-docusate sodium [Senna Plus] 8.6-50 mg Tablet 1 tab PO BID Qty: 0 0RF olanzapine 10 mg Tablet 20 mg PO BEDTIME Qty: 0 0RF levothyroxine [Synthroid] 100 mcg Tablet 100 mcg PO DAILY@0600 Qty: 0 0RF lorazepam 0.5 mg Tablet 0.5 mg PO BEDTIME Qty: 0 0RF lorazepam 0.5 mg Tablet 0.5 mg PO DAILY@1200 Qty: 30 0RF omeprazole 20 mg Capsule,Delayed Release(Dr/Ec) 20 mg PO DAILY@0630 Qty: 0 0RF montelukast 10 mg Tablet 10 mg PO BEDTIME Qty: 0 0RF gabapentin 100 mg Capsule 200 mg PO BID Qty: 0 0RF ergocalciferol (vitamin D2) [Vitamin D2] 1,250 mcg (50,000 unit) Capsule 1,250 mcg PO Q30D Qty: 0 0RF metformin 500 mg Tablet Extended Release 24 Hr 1,000 mg PO DAILY@1700 Qty: 0 0RF mirabegron [Myrbetriq] 50 mg Tablet Extended Release 24 Hr 50 mg PO DAILY Qty: 0 0RF miconazole nitrate [Inzo Antifungal] 2 % Cream 1 appl topical BID Qty: 0 0RF Protocol: Apply to: Apply to: affect area Continued pyridoxine (vitamin B6) 25 mg Tablet 25 mg PO DAILY Discontinued levothyroxine [Synthroid] 100 mcg Tablet 100 mcg PO DAILY@0600 30 Days Qty: 30 0RF benztropine 1 mg Tablet 1 mg PO BID 30 Days Qty: 60 0RF lisinopril 5 mg Tablet 5 mg PO DAILY 30 Days Qty: 30 0RF mirabegron [Myrbetriq] 50 mg Tablet Extended Release 24 Hr 50 mg PO DAILY 30 Days Qty: 30 0RF fluticasone furoate-vilanterol [Breo Ellipta] 100-25 mcg/dose Blister With Device 1 inh INHALATION DAILY 30 Days Qty: 60 0RF levetiracetam 500 mg tablet 1,500 mg PO BID miconazole nitrate 2 % Cream 1 appl TOPICAL BID lorazepam 0.5 mg Tablet 0.5 mg PO BEDTIME montelukast 10 mg tablet 10 mg PO BEDTIME acetaminophen 325 mg Tablet 650 mg PO Q6H PRN (Reason: Headache/Pain, Scale 1-10) Qty: 0 0RF trazodone 50 mg Tablet 50 mg PO BEDTIME PRN (Reason: Insomnia) Qty: 0 0RF metformin 500 mg Tablet Extended Release 24 Hr 500 mg PO DAILY@1700 Qty: 0 0RF gabapentin 100 mg Capsule 200 mg PO BID ergocalciferol (vitamin D2) 1,250 mcg (50,000 unit) Capsule 1,250 mcg PO QMONTH clopidogrel 75 mg Tablet 75 mg PO DAILY pantoprazole 40 mg Tablet,Delayed Release (Dr/Ec) 40 mg PO DAILY nitroglycerin 0.4 mg Tablet, Sublingual 0.4 mg SUBLINGUAL Q5M PRN (Reason: Angina) Rx Instructions: do not exceed 3 doses per episode brexpiprazole 2 mg Tablet 2 mg PO DAILY Discharge Orders: Discharge Order (Routine); Ordered 02/27/25 Ordered By: Evy Bhardwaj Diet: Diabetic diet Activity on Discharge: Use cane or walker Stand Alone Forms: Patient Portal Discharge page Print Language: Yi Care Plan Goals: maintain mood no si/hi Health Concerns: follow up with PCP for routine care Plan of Treatment: 1. take medications as prescribed 2. go to nearest ED or call 911 in event of emergency Assessment: Pt with guarded affect. residual paranoid/erotomatic delusions. No SI/HI. No aggression towards self or others. Psychosis also present.
== END 2025-02-27 15:35 | disposition home or self-care (01) | DRG 885 ==
PROVIDERS: Nurse Practitioner Family; Nurse Practitioner Psychiatric/Mental Health; Social Worker; Admitting Provider Psychiatry & Neurology Psychiatry; Visit Provider Psychiatry & Neurology Psychiatry
DX: F25.9 Schizoaffective disorder, unspecified (principal); G91.2 (Idiopathic) normal pressure hydrocephalus; G25.9 Extrapyramidal and movement disorder, unspecified; N18.31 Chronic kidney disease, stage 3a; E11.42 Type 2 diabetes mellitus with diabetic polyneuropathy; E11.22 Type 2 diabetes mellitus with diabetic chronic kidney disease; Z98.2 Presence of cerebrospinal fluid drainage device; I12.9 Hypertensive chronic kidney disease with stage 1 through stage 4 chronic kidney disease, or unspecified chronic kidney disease; E03.9 Hypothyroidism, unspecified; G40.909 Epilepsy, unspecified, not intractable, without status epilepticus; G47.33 Obstructive sleep apnea (adult) (pediatric); J45.30 Mild persistent asthma, uncomplicated; Z85.820 Personal history of malignant melanoma of skin; Z23 Encounter for immunization; Z79.02 Long term (current) use of antithrombotics/antiplatelets; Z79.890 Hormone replacement therapy; Z79.899 Other long term (current) drug therapy
CPT/HCPCS: 36415; 74018; 80053; 80061; 80177; 81001; 82565; 82947; 83036; 84439; 84443; 87086; 90656

== ENCOUNTER → 2025-02-11 15:15 | Outpatient (BNV) | payer OTHER, MEDICAID, SELFPAY | PROVIDERS: Admitting Provider Psychiatry & Neurology Psychiatry; Visit Provider Nurse Practitioner Psychiatric/Mental Health | DX: F25.9 Schizoaffective disorder, unspecified (principal); I12.9 Hypertensive chronic kidney disease with stage 1 through stage 4 chronic kidney disease, or unspecified chronic kidney disease; E11.9 Type 2 diabetes mellitus without complications; E03.9 Hypothyroidism, unspecified; N18.9 Chronic kidney disease, unspecified; G40.909 Epilepsy, unspecified, not intractable, without status epilepticus; G47.33 Obstructive sleep apnea (adult) (pediatric) | CPT/HCPCS: 90792; 99231; 99232 ==

== ENCOUNTER → 2025-02-11 15:15 | Outpatient (BNV) | payer OTHER, MEDICAID, SELFPAY | PROVIDERS: Admitting Provider Psychiatry & Neurology Psychiatry; Visit Provider Nurse Practitioner Family | DX: Z00.8 Encounter for other general examination (principal) | CPT/HCPCS: 99221 ==

== ENCOUNTER 2025-03-06 09:06 | Emergency (ER) | payer OTHER, SELFPAY ==
[2025-03-06 09:28] VITALS: BP 138/66; BP 150/90; PULSE 137; PULSE 78; RESP 16; TEMP 36.4; O2SAT 97; O2SAT 99; BMI 38.4
[2025-03-06 09:39] VITALS: RESP 16
--- NOTE | 2025-03-06 09:57 | PC.NURSE ---
Addendum entered by Yuliya William RN 03/06/25 10:43: TOYA Dalton aware of patient's anxiety Original Note: Pt is calm and cooperative, reporting anxiety at this time.
[2025-03-06 09:58] VITALS: PULSE 106; RESP 16; O2SAT 99
[2025-03-06 10:58] LABS: MANUAL DIFF FLAG NO
--- NOTE | 2025-03-06 10:59 | MHC.CARE ---
A psych consult will be placed to determine Pt's disposition.
[2025-03-06 11:01] LABS: Hematocrit 37.6 % (37.0-47.0); Hemoglobin 12.6 g/dl (12.0-16.0); Imm Gran Abs Auto 0.03 X10*3/uL (0.00-0.03); Imm Gran Pct Auto 0.4 % (0.0-0.4); Lymphocytes Absolute Auto 2.5 X10*3/uL (1.2-4.9); Mean Corpuscular HGB Conc 33.5 g/dl (31.0-35.0); Mean Corpuscular Hemoglobin 30.9 pg (27.0-33.0); Mean Corpuscular Volume 92.2 fL (80.0-98.0); NRBC Abs Auto 0.000 X10*3/uL (0.0-0.012); NRBC Pct Auto 0.0 /100WBC (0.0-0.2); Platelet Count 233 X10*3/uL (160-400); Red Blood Count 4.08 X10*6/uL (4.20-5.50); White Blood Count 7.7 X10*3/uL (4.8-10.8)
--- NOTE | 2025-03-06 11:01 | ED.PSYCH ---
HPI - Psych General Chief Complaint: Psychiatric Symptoms Stated Complaint: AH,DELUSIONS/THINKS SHES ,RECENT D/C Time Seen by Provider: 03/06/25 10:16 Source: patient and EMS Mode of arrival: EMS Limitations: no limitations History of Present Illness ED Provider: CAROL QUIÑONES PA-C HPI Narrative: 64 year old female with pmhx significant for schizoaffective disorder, seizure disorder, and PH, HTN, hypothyroidism, type 2 diabetes, diabetic neuropathy, CKD presents to the ED today via EMS from independent living facility d/t concerns from outpatient provider. Per patient's medical provider, patient has been displaying increasing aggression, stating that patient has a piercing gaze . No physical or verbal aggression. Patient was recently discharged home approximately 1 week ago following a 2 week psychiatric admission at our facility. On discharge, it was recommended that patient taper off olanzapine. At present, patient endorses feeling anxious. States she is no longer hearing voices. Denies VH/TH. Denies SI/HI. Denies illicit substance use. Denies EtOH consumption. Denies any physical complaints at present. Related Data Home Medications ?Medication ?Instructions ?Recorded ?Confirmed pyridoxine (vitamin B6) 25 mg 25 mg PO DAILY 02/11/25 03/06/25 tablet Previous Rx's ?Medication ?Instructions ?Recorded acetaminophen 325 mg tablet 975 mg (3 x 325 mg) PO TID #0 tabs 02/27/25 clopidogrel 75 mg tablet 75 mg PO DAILY #0 tabs 02/27/25 ergocalciferol (vitamin D2) 1,250 1,250 mcg PO Q30D #0 caps 02/27/25 mcg (50,000 unit) capsule (Vitamin D2) fluphenazine HCl 10 mg tablet 10 mg PO BID #60 tabs 02/27/25 fluticasone furoate 100 1 inh inhalation RDAILY #0 ea 02/27/25 mcg-vilanterol 25 mcg/dose inhalation powder (Breo Ellipta) gabapentin 100 mg capsule 200 mg (2 x 100 mg) PO BID #0 caps 02/27/25 levetiracetam 500 mg tablet 1,500 mg (3 x 500 mg) PO BID #0 02/27/25 tabs levothyroxine 100 mcg tablet 100 mcg PO DAILY@0600 #0 tabs 02/27/25 (Synthroid) lisinopril 5 mg tablet 5 mg PO DAILY #0 tabs 02/27/25 lorazepam 0.5 mg tablet 0.5 mg PO BEDTIME #0 tabs 02/27/25 lorazepam 0.5 mg tablet 0.5 mg PO DAILY@1200 #30 tabs 02/27/25 metformin 500 mg tablet,extended 1,000 mg (2 x 500 mg) PO 02/27/25 release 24 hr DAILY@1700 #0 tabs miconazole nitrate 2 % topical 1 appl topical BID #0 grams 02/27/25 cream (Inzo Antifungal) mirabegron 50 mg tablet,extended 50 mg PO DAILY #0 tabs 02/27/25 release 24 hr (Myrbetriq) montelukast 10 mg tablet 10 mg PO BEDTIME #0 tabs 02/27/25 nitroglycerin 0.4 mg sublingual 0.4 mg sublingual Q5M PRN Angina 02/27/25 tablet (Nitrostat) #0 tabs olanzapine 10 mg tablet 20 mg (2 x 10 mg) PO BEDTIME #0 02/27/25 tabs omeprazole 20 mg capsule,delayed 20 mg PO DAILY@0630 #0 caps 02/27/25 release polyethylene glycol 3350 17 gram 17 g PO BID #0 ea 02/27/25 oral powder packet sennosides 8.6 mg-docusate sodium 1 tab PO BID #0 tabs 02/27/25 50 mg tablet (Senna Plus) trazodone 50 mg tablet 50 mg PO BEDTIME #0 tabs 02/27/25 Allergies Allergy/AdvReac Type Severity Reaction Status Date / Time ibuprofen Allergy Wheezing Verified 03/06/25 09:34 oxcarbazepine (From Allergy Unknown Verified 03/06/25 09:34 Trileptal) peanut Allergy Unknown Verified 03/06/25 09:34 quetiapine (From Seroquel) Allergy Vomiting Verified 03/06/25 09:34 Review of Systems Review of Systems: Yes all other systems are reviewed and are negative [facility] Past Medical History Attestation statement: The following information was validated with the patient. Source: old records reviewed and nursing notes reviewed Medical History Stable angina History of melanoma HTN (hypertension) Mild persistent asthma FERMÍN (obstructive sleep apnea) Diabetic peripheral neuropathy NPH (normal pressure hydrocephalus) Seizure disorder CKD (chronic kidney disease) Hypothyroidism Type 2 diabetes mellitus Schizoaffective disorder Social History Social History Household Members: None Household Members Other:: pt states she lives with her whom she got to last week Housing: Apartment Housing Other:: senior housing Do you presently have visiting nurse or other home services: Yes (1-2 x's week) Comment: on 5 minute checks Patient Tobacco Use Status: Never used Tobacco Smoked in Last 30 Days: No e-Cigarette/Vaping Use: Never Used Second Hand Smoke Exposure: No Use of substances other than those prescribed or required for medical reasons: No Advance Directives: Yes Advance Directives on File: Yes Advance Directives Date on File: 03/21/24 service: No Sexual orientation: Straight/Heterosexual Physical Exam Vital Signs: Vital Signs: Last Vital Signs Temp 97.6 F 03/06/25 15:42 Pulse 86 03/06/25 15:42 Resp 16 03/06/25 15:42 BP 122/68 03/06/25 15:42 Pulse Ox 99 03/06/25 15:42 O2 Del Method Room Air 03/06/25 15:42 BMI result Body Mass Index 38.4 tachycardic, vitals are otherwise wnl General: anxious appearing Skin: Warm, dry, intact. No rashes or lesions. Head: Normocephalic, atraumatic. EENT: Hearing is intact b/l. Conjunctiva clear. Sclera is anicteric. PERRLA. EOM intact. Moist mucous membranes.? Neck: Supple without LAD Cardiac: Chest wall symmetric. RRR Lungs: Normal respiratory effort without accessory muscle use. CTA bilaterally Abdomen: Soft, non-tender, non-distended. No rebound tenderness or guarding. Positive BS x4. Back: No midline spinous or paraspinal tenderness. No step off deformity. Ext: Upper and lower extremities atraumatic, without tenderness, deformity, swelling or erythema. Full ROM throughout Neuro: AOx3. Normal speech. CN 2-12 grossly intact. Ambulating with steady gait. Course Course Course Narrative: 1534 -- CBC without leukocytosis or left shift. No anemia, h&h stable. Chemistry without acute electrolyte abnormality requiring intervention.? Liver function and renal function around baseline. TSH wnl.? Urine without infection. Urine drug screen negative. Ethanol undetectable. > medicated w/ Ativan for anxiety Patient has been seen and cleared by both care team and psych. see provider notes. Psych has arranged for independent living facility to transport patient back home. she is agreeable with this. will be following up outpatient. Medications Administered Discontinued Medications Generic Name Dose Route Start Last Admin Trade Name Freq PRN Reason Stop Dose Admin Benztropine Mesylate 1 mg 03/06/25 14:58 03/06/25 15:40 Benztropine Mesylate 1 Mg Tablet PO 03/06/25 14:59 1 mg ONCE ONE Administration Lorazepam 1 mg 03/06/25 11:29 03/06/25 11:57 Lorazepam 1 Mg Tablet PO 03/06/25 11:30 1 mg ONCE ONE Administration Medical Decision Making Medical Decision Making MDM Narrative: 64 year old female with pmhx significant for schizoaffective disorder, seizure disorder, and PH, HTN, hypothyroidism, type 2 diabetes, diabetic neuropathy, CKD presents to the ED today via EMS from independent living facility d/t concerns from outpatient provider. Differential diagnosis includes anemia, electrolyte abnormality, mood disorder, anxiety, depression, SI, polysubstance abuse Presentation not consistent with acute organic causes to include delirium, dementia or drug induced disorders (acute ingestions or withdrawal; no evidence of toxidrome).? Plan: labs, EKG, ASA/APAP levels, ETOH level, UDS, care team/psych consultation, reassessment Differential Diagnosis Differential Diagnoses: The differential diagnosis associated with the presentation includes as above. Admission/Observation Consideration of admission/observation: Escalation of care including admission/observation considered Consult Healthcare Provider Management of the patient was discussed with: Obstetrics Gyn (psych) Lab Data [facility] Lab Attestation statement: I reviewed the patient's lab results. as above. 03/06/25 10:40 03/06/25 10:40 Labs: Lab Results 03/06/25 03/06/25 Range/Units 10:40 11:03 WBC 7.7 (4.8-10.8) X10*3/uL RBC 4.08 L (4.20-5.50) X10*6/uL Hgb 12.6 (12.0-16.0) g/dl Hct 37.6 (37.0-47.0) % MCV 92.2 (80.0-98.0) fL MCH 30.9 (27.0-33.0) pg MCHC 33.5 (31.0-35.0) g/dl RDW 12.7 (11.0-16.0) % Plt Count 233 (160-400) X10*3/uL MPV 9.1 L (9.4-12.3) fL Immature Gran % (Auto) 0.4 (0.0-0.4) % Neut % (Auto) 53.7 (45-73) % Lymph % (Auto) 32.2 (20-40) % [place] % (Auto) 7.3 (2-11) % Eos % (Auto) 5.9 H (0-4) % Baso % (Auto) 0.5 (0-2) % Lymph # (Auto) 2.5 (1.2-4.9) X10*3/uL [place] # (Auto) 0.6 (0.1-1.2) X10*3/uL Eos # (Auto) 0.5 H (0.0-0.4) X10*3/uL Baso # (Auto) 0.0 (0.0-0.2) X10*3/uL Abs Immat Gran (auto) 0.03 (0.00-0.03) X10*3/uL Absolute Neuts (auto) 4.1 (2.0-8.3) x10*3/uL Absolute Nucleated RBC 0.000 (0.0-0.012) X10*3/uL Nucleated RBC % (auto) 0.0 (0.0-0.2) /100WBC Sodium 142 (135-145) mmol/L Potassium 4.4 (3.3-5.1) mmol/L Chloride 106 (96-108) mmol/L Carbon Dioxide 29 (22-29) mmol/L Anion Gap 11 L (12-20) BUN 21 H (9-16) mg/dL Creatinine 0.96 (0.5-1.4) mg/dL Estim Creat Clear Calc 55.7 Estimated GFR 58 Random Glucose 188 H (60-115) mg/dL Calcium 9.2 (8.4-10.2) mg/dL Total Bilirubin 0.2 (0.0-1.0) mg/dL AST 22 (5-31) U/L ALT 23 (0-31) U/L Alkaline Phosphatase 72 (39-117) U/L Total Protein 6.8 (6.5-8.0) g/dL Albumin 4.1 (3.5-5.0) g/dL TSH 2.47 (0.32-4.0) uIU/mL Beta HCG, Quant < 2 mIU/mL Urine Color Yellow Urine Appearance Clear Urine pH 5.5 (5.0-9.0) Ur Specific [place] 1.020 (1.005-1.025) Urine Protein Negative (Neg-Trace) mg/dL Urine Glucose (UA) 250 H (Negative) mg/dL Urine Ketones Negative (Negative) mg/dL Urine Blood Negative (Negative) Urine Nitrite Negative (Negative) Ur Leukocyte Esterase Moderate (2+) H (Negative) Urine RBC 0-2 (0-2) /HPF Urine WBC 11-20 H (0-5) /HPF Ur Squamous Epith Cells 0-2 (0-2) /HPF Urine Bacteria None Seen (None Seen) Hyaline Casts 0-2 (0-2) /LPF Urine Opiates Screen Not Detected (Not Detect) Ur Buprenorphine Scrn Not Detected (Not Detect) ng/mL Ur Oxycodone Screen Not Detected (Not Detect) ng/mL Urine Methadone Screen Not Detected (Not Detect) ng/mL Urine Fentanyl Screen Not Detected (Not Detect) Ur Barbiturates Screen Not Detected (Not Detect) Ur Phencyclidine Scrn Not Detected (Not Detect) Ur Amphetamines Screen Not Detected (Not Detect) U Benzodiazepines Scrn Not Detected (Not Detect) Urine Cocaine Screen Not Detected (Not Detect) U Marijuana (THC) Screen Not Detected (Not Detect) Ethyl Alcohol < 10 mg/dL Independent Historian Clinical information obtained from an independent historian. History obtained from or confirmed by: EMS External Record Review External record reviewed: Inpatient record, Office record and Outpatient record Social Determinants Patient?s care significantly limited by Social Determinants of Health including: Other Social Determinant of Health Critical Care Time Critical Care Time Critical Care Time: No Discharge Plan Discharge Clinical Impression: Schizoaffective disorder Patient Disposition: Home, Self-Care Instructions: Schizoaffective Disorder (ED) Additional Instructions: You were seen in our Emergency Department today for treatment of a behavioral health issue. It is important after your visit that you follow up with either your behavioral health provider or a primary care doctor within 7 days.? If you have trouble finding a therapist you can reach out to [address] [phone] The National Suicide and Crisis Lifeline can be reached 7 days a week 24 hours a day.? Call 988 to speak with someone.? Return for any worsening symptoms or concerns such as thoughts of self harm or harm to others. Please call 911 if you feel your mental health is worsening.? Prescriptions: No Action pyridoxine (vitamin B6) 25 mg Tablet 25 mg PO DAILY acetaminophen 325 mg Tablet 975 mg PO TID Qty: 0 0RF clopidogrel 75 mg Tablet 75 mg PO DAILY Qty: 0 0RF nitroglycerin [Nitrostat] 0.4 mg Tablet, Sublingual 0.4 mg sublingual Q5M PRN (Reason: Angina) Qty: 0 0RF lisinopril 5 mg Tablet 5 mg PO DAILY Qty: 0 0RF Protocol: Hold for SBP< HOLD for SBP < : 90 fluticasone furoate-vilanterol [Breo Ellipta] 100-25 mcg/dose Blister With Device 1 inh inhalation RDAILY Qty: 0 0RF fluphenazine HCl 10 mg tablet 10 mg PO BID Qty: 60 0RF trazodone 50 mg Tablet 50 mg PO BEDTIME Qty: 0 0RF polyethylene glycol 3350 17 gram Powder In Packet 17 g PO BID Qty: 0 0RF levetiracetam 500 mg Tablet 1,500 mg PO BID Qty: 0 0RF sennosides-docusate sodium [Senna Plus] 8.6-50 mg Tablet 1 tab PO BID Qty: 0 0RF olanzapine 10 mg Tablet 20 mg PO BEDTIME Qty: 0 0RF levothyroxine [Synthroid] 100 mcg Tablet 100 mcg PO DAILY@0600 Qty: 0 0RF lorazepam 0.5 mg Tablet 0.5 mg PO BEDTIME Qty: 0 0RF lorazepam 0.5 mg Tablet 0.5 mg PO DAILY@1200 Qty: 30 0RF omeprazole 20 mg Capsule,Delayed Release(Dr/Ec) 20 mg PO DAILY@0630 Qty: 0 0RF montelukast 10 mg Tablet 10 mg PO BEDTIME Qty: 0 0RF gabapentin 100 mg Capsule 200 mg PO BID Qty: 0 0RF ergocalciferol (vitamin D2) [Vitamin D2] 1,250 mcg (50,000 unit) Capsule 1,250 mcg PO Q30D Qty: 0 0RF metformin 500 mg Tablet Extended Release 24 Hr 1,000 mg PO DAILY@1700 Qty: 0 0RF mirabegron [Myrbetriq] 50 mg Tablet Extended Release 24 Hr 50 mg PO DAILY Qty: 0 0RF miconazole nitrate [Inzo Antifungal] 2 % Cream 1 appl topical BID Qty: 0 0RF Protocol: Apply to: Apply to: affect area Referrals: Physician,Unknown J [Primary Care Provider, Medical] Interventions: [place]-Suicide Risk Severity Scale Last Done: 03/06/25 09:43 ED Discharge Assessment Last Done: 03/06/25 15:42 Discharge Date/Time: 03/06/25 15:54 Print Language: Wolof
[2025-03-06 11:19] LABS: Appearance Urine Clear; Glucose Urine UA 250 mg/dL (Negative); PH 5.5 (5.0-9.0); Specific Gravity - Urine 1.020 (1.005-1.025); UMIC TRIGGER UACC YES
[2025-03-06 11:21] LABS: Alanine Aminotransferase 23 U/L (0-31); Albumin Level 4.1 g/dL (3.5-5.0); Alkaline Phosphatase 72 U/L (39-117); Anion Gap 11 (12-20); Aspartate Amino Transferase 22 U/L (5-31); Blood Urea Nitrogen 21 mg/dL (9-16); Calcium 9.2 mg/dL (8.4-10.2); Carbon Dioxide 29 mmol/L (22-29); Chloride 106 mmol/L (96-108); Creatinine Clr Calc Pharmacy 55.7; Estimated Glomerular Filt Rate 58; Potassium 4.4 mmol/L (3.3-5.1); Sodium 142 mmol/L (135-145); Total Protein 6.8 g/dL (6.5-8.0)
[2025-03-06 11:21] LABS: UACC Culture Trigger YES
[2025-03-06 11:28] LABS: Cannabinoid Screen Urine Not Detected (Not Detect)
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
--- OUTSIDE RECORDS SUMMARY | 2025-03-06 15:25 | XMS_ITS | Data Portability ---
Author Organization [place] [facility] Address [address] [place] [id number] Care Team Providers Care Cadmium Liquor Maker Name Role Phone KYRA MENG Primary Care Provider [phone] Assessment Encounter Date Assessment Date Assessment LastModified [...] exercises [facility]. We cannot always find the [...] in your condition between 8am-10pm, please call [facility] at [phone] to help navigate your care. In order to obtain further information and compare any laboratory results/values, I have accessed patient records on the [employer]. This information was pertinent in my medical [...] after care of this patient according to [facility]'s infection prevention protocols. [email or web address] Not available 10/31/2021 12:47:02 Plan of Treatment Reminders Order Date Submit Date Provider Last Modified By Organization Details Last Modified Time Details Appointments None record ed. Lab None record ed. Referral None record ed. Procedures None record ed. Surgeries None record ed. Imaging XR, ankle, 3 or more view 021 11/10/19 21 [facility] ([facility] [address] [place] [address], [address], 09:36:15 Medication Orders None record ed. Patient TargetsNo targets recorded. Patient InstructionsNo instructions recorded. Reason for Referral None Reported. Results Created Date Observation Date Name Description Value Unit Range Abnormal Flag Note LastModifiedBy Organization Detail LastModifiedTime 11/12/19 21 XR, ankle , 3 or more view No observ ation record ed. [facility] [employer]) [address] [place], [address], 11/11/2020 18:02:55 Result Notes None recorded. Problems Name Problem SNOMED Code Status Onset Date Resolution Date Notes Provider Name and Address Organization Details Recorded Time Diabetes mellitus 87912628 Active 021 TOYA CHURCH [address] [place], [address], [facility] [place] - [facility] 18:07:45 Problem Notes None recorded. Medical Equipment None Reported. Allergies Allergen ID Allergen Name Allergen Category Reaction Reaction Severity Criticality Documentation Date Start Date Code Code System Note Provider Name and Address Organization Details Recorded Time 21280722 Trileptal medicatio n Not available Not available Not available 11/09/2020 24812 0 RxNorm TOYA CHURCH [address] [place], [address], [place] [facility] 18:07:25 Medications [...] Vitals Date Recorded Heart rate Oxygen saturation Respiratory rate Body temperature Systolic And Diastolic Provider Name and Address Organization Details Last Updated DateTime 2 81 /min 95 % 18 /min 98.6 [degF] 140/70 mm[Hg] Not Available [facility] 2 16:03:57 Date Recorded Oxygen saturation Body temperature Respiratory rate Heart rate Systolic And Diastolic Provider Name and Address Organization Details Last Updated DateTime 1 95 % 98.7 [degF] 20 /min 77 /min 110/76 mm[Hg] Not Available [facility] 1 18:14:25 Social History Question Answer Notes LastModified by Organizat ion Details LastModified Time Tobacco Smoking Status Never Smoker TOYA CHURCH [address], [place], [address], [place] [facility] 11/09/2020 18:14:10 Excessive Alcohol Or Drug Use No Information not available 11/09/2020 Does This Patient Have A PCP? Yes Information not available 11/09/2020 Sex: Unknown Functional Status Question Answer Note LastModified by Organizat ion Details LastModified Time Do you use any illicit or recreational drugs? No [email or web address] Information not available 11/09/2020 What is your level of alcohol consumption? None [email or web address] Information not available 11/09/2020 Mental Status None recorded. Family History Relationship Description Onset Age of this Age Resolved Age Notes LastModified by Organization Details LastModified Time Mother Diabetes mellitus velanamaria Not available 2020 18:14:26 Mother Hypertensive disorder patrick Not available 2020 18:14:32 Mother Malignant neoplastic disease colon CA [email or web address] Not available 11/09/2020 18:14:45 Medical History Condition Response Diabetes Y Coronary Artery Disease N Cancer Y Stroke N Hypothyroidism Y Depression Y COPD N Asthma Y High Cholesterol N Pulmonary Embolism N Hypertension Y Kidney Disease N Gynecological HistoryNo gynecological history recorded. Obstetrics History GPAL:G 0 P 0 0 0 0 Past Encounters Encounter ID Performer Location Encounter Start Date Encounter Closed Date Diagnosis/Indication Diagnosis SNOMED-CT Code Diagnosis ICD10 Code Diagnosis IMO Codes Diagnosis Note [id number] TO[facility] CHURCH [facility] [address] [place] [address] 11/09/2020 18:06:27 11/14/2020 11:24:14 Osteoarthritis of ankle and/or foot 40254547 M19.079 Pain of ri ght ankle joint 0830370889 3420603 M25.571 749575 Anat White NP [facility] [address] [place] [address] 10/30/2021 15:53:33 11/01/2021 12:01:11 Candidal intertrigo 429779482 B37.2 Cyst of skin 299500206 L 72.9 Health Concerns Section Related Observation LastModified by Organization Detai ls LastModified Time None Recorded Concern Status LastModified by Organization Details LastModified Time None Recorded Advance Directives Directive None Recorded Payers Insurance Date Sequence Insurance Name Policy Number Policy Palomo Covered Member ID Palomo Member ID Guarantor Name 11/01/2021 2 [place] [employer] Lashanda Sanders [id number] Lashanda Sanders 11/09/2020 1 [facility] - DOS PRIOR TO 2022 - DUAL ELIGIBLE (MEDICARE REPLACEMENT/ADV ANTAGE - HMO) Lashanda Gtzucher [id number] Lashanda Sanders 11/09/2020 1 *SELF PAY* Lashanda Sanders [id number] Lashanda Sanders 11/14/2020 1 [facility] - DOS PRIOR TO 2022 - DUAL ELIGIBLE (MEDICARE REPLACEMENT/ADV ANTAGE - HMO) Lashanda Marilyn [id number] Lashanda Marilyn 11/09/2020 1 [place] [employer] Lashanda Marilyn [id number] Lashanda Sanders 10/29/2021 1 [facility] - DOS PRIOR TO 2022 - DUAL ELIGIBLE (MEDICARE REPLACEMENT/ADV ANTAGE - HMO) Lashanda Sanders [id number] Lashanda Sanders Notes Date Note Type Note [...] Patient ambulating with [place], [address], [place] [facility] 11/09/2020 18:51:42 10/30/2021 text/html 61 yo f [...] to her groin. Anat White NP [address], [place], [address], [place] [facility] 10/31/2021 12:48:05 OBGyn Episode No OBEpisode recorded.
[2025-03-06 15:42] VITALS: BP 122/68; PULSE 86; RESP 16; TEMP 36.4; O2SAT 99
== END 2025-03-06 15:54 | disposition home or self-care (01) ==
PROVIDERS: Physician Assistant Medical; Emergency Provider Emergency Medicine
DX: F25.9 Schizoaffective disorder, unspecified (principal); G40.909 Epilepsy, unspecified, not intractable, without status epilepticus; E03.9 Hypothyroidism, unspecified; E11.22 Type 2 diabetes mellitus with diabetic chronic kidney disease; I12.9 Hypertensive chronic kidney disease with stage 1 through stage 4 chronic kidney disease, or unspecified chronic kidney disease; N18.9 Chronic kidney disease, unspecified; Z79.899 Other long term (current) drug therapy
CPT/HCPCS: 36415; 80053; 80307; 81001; 84443; 84702; 85025; 87086; 99284; 99285; S9485

== ENCOUNTER → 2025-03-06 10:24 | Outpatient (BNV) | payer OTHER, SELFPAY | PROVIDERS: Emergency Provider Emergency Medicine; Visit Provider Social Worker | DX: F25.9 Schizoaffective disorder, unspecified (principal) | CPT/HCPCS: 99285 ==

== ENCOUNTER 2025-04-01 13:07 | Outpatient (AMB) | payer OTHER, MEDICAID, SELFPAY ==
--- OUTSIDE RECORDS SUMMARY | 2025-03-27 08:30 | XMS_ITS | Encounter Summary ---
Author Organization [facility] Address [address] [place] [address] Care Team Providers Care Endoscopy Technician Name Role Phone Regulo Ivy NP Primary Care Provider [phone] Encounter Details Date Type Department Care Team (Late st Contact Info) Description 03/27/2025 8:30 AM EST PACE Home Care / PACE Home Visit [facility] [address] [place] [address] Carmen Hartmann Social History Tobacco [...] ed Within the last 3 months, ho cedric many times did you visit the emergency [...] Upcoming Encounters Date Type Department Care Team (Late st Contact Info) Description 04/02/2025 8:30 AM EST PACE Home Care / [facility] [address] [place] [phone] Carmen Hartmann 04/02/2025 4:30 PM EST PACE Home Care / P[facility] [place] [facility] [address] [place] [phone] Ashley Eastman 04/03/2025 8:30 AM EST PACE Home Care / P[facility] [place] [facility] [address] [place] [phone] Carmen Hartmann 04/03/2025 9:00 AM EST P[facility] Attend[facility] [place] [facility] [address] [place] [address] 04/03/2025 4:30 PM EST PACE Home Care / P[facility] [place] [facility] [address] [place] [phone] Ashley Eastman 04/04/2025 [facility] [place] [facility] [address] [place] [address] Regulo Ivy, ALONSO [address] [address] Constipation, unspecified constipation type 04/04/2025 8:00 AM EST PACE Home Care / P[facility] [place] [facility] [address] [place] [phone] Titi Thomas 04/04/2025 8:30 AM EST PACE Home Care / P[facility] [place] [facility] [address] [place] [phone] Marysol Diaz 04/04/2025 4:30 PM EST PACE Home Care / P[facility] [place] [facility] [address] [place] [phone] Ashley Eastman 04/05/2025 12:00 PM EST PACE Home Care / P[facility] [place] [facility] [address] [place] [phone] Dena Chavez 04/06/2025 12:00 PM EST PACE Home Care / P[facility] [place] [facility] [address] [place] [phone] Dena Chavez 2025 8:30 AM EST PACE Home Care / P[facility] Home Visit [facility] [place] [facility] [address] [place] [phone] Carmen Hartmann 2025 4:30 PM EST PACE Home Care / [place] [facility] [address] [place] [address] Ashley Eastman 04/08/2025 8:30 AM EST PACE Home Care / [place] Home Visit [facility] [place] [facility] [address] [place] [address] Carmen Hartmann 04/08/2025 4:30 PM EST PACE Home Care / [place] Home Visit [facility] [place] [facility] [address] [place] [phone] Ashley Eastman 04/09/2025 8:30 AM EST PACE Home Care / [place] Home Visit [facility] [place] [facility] [address] [place] [phone] Carmen Hartmann 04/09/2025 4:30 PM EST PACE Home Care / [place] Home Visit [facility] [place] [facility] [address] [place] [phone] Ashley Eastman 04/10/2025 6:05 AM EST PACE Home Care / [place] Home Visit [facility] [place] [facility] [address] [place] [phone] Jackeline Mcrae 04/10/2025 9:00 AM EST [place] [facility] [place] [facility] [address] [place] [address] 04/10/2025 4:30 PM EST PACE Home Care / [place] Home [facility] [place] [facility] [address] [place] [phone] Ashley Eastman 04/11/2025 8:00 AM EST PACE Home Care / [place] Home Visit [facility] [place] [facility] [address] [place] [phone] Carmen Hartmann 04/11/2025 9:30 AM EST PACE Home Care / [place] Home Visit [facility] [place] [facility] [address] [place] [address] Carmen Hartmann 04/11/2025 4:30 PM EST PACE Home Care / [place] Home Visit [facility] [place] [facility] [address] [place] [address] Ashley Eastman 04/12/2025 8:30 AM EST PACE Home Care / [place] Home Visit [facility] [place] [facility] [address] [place] [address] Marysol Diaz 04/12/2025 12:00 PM EST PACE Home Care / [place] Home Visit [facility] [place] [facility] [address] [place] [address] Natali Sanford 04/12/2025 5:30 PM EST PACE Home Care / P[place] Home Visit [facility] [place] [facility] [address] [place] [address] Marysol Diaz 04/13/2025 8:30 AM EST PACE Home Care / [place] Home Visit [facility] [place] [facility] [address] [place] [address] Marysol iDaz 04/13/2025 12:00 PM EST PACE Home Care / [place] Home Visit [facility] [place] [facility] [address] [place] [address] Natali Sanford 04/13/2025 4:30 PM EST PACE Home Care / [place] Home Visit [facility] [place] [facility] [address] [place] [phone] Marysol Diaz 04/13/2025 5:30 PM EST PACE Home Care / [place] Home Visit [facility] [place] [facility] [address] [place] [phone] Marysol Diaz 04/14/2025 8:30 AM EST PACE Home Care / [place] Home Visit [facility] [place] [facility] [address] [place] [address] Carmen Hartmann 04/14/2025 4:30 PM EST PACE Home Care / [facility] [facility] Visit [facility] [place] [facility] [address] [place] [address] Ashley Eastman 04/15/2025 8:30 AM EST PACE Home Care / [place] Home Visit [facility] [place] [facility] [address] [place] [address] Carmen Hartmann 04/15/2025 11:00 AM EST [facility] Visit [facility] [place] [facility] [address] [place] [address] Regulo Ivy, ALONSO [address] [place] [address] Brigette East LPN 04/15/2025 4:30 PM EST PACE Home Care / [place] [facility] [place] [facility] [address] [place] [phone] Ashley Eastman 04/16/2025 8:30 AM EST PACE Home Care / [place] [facility] Visit [facility] [place] [facility] [address] [place] [phone] Carmen Hartmann 04/16/2025 4:30 PM EST PACE Home Care / P[place] Home Visit [facility] [place] [facility] [address] [place] [phone] Ashley Eastman 04/17/2025 8:30 AM EST PACE Home Care / [place] Home Visit [facility] [place] [facility] [address] [place] [phone] Carmen Hartmann 04/17/2025 9:00 AM EST [facility] Att[facility] [facility] [place] [facility] [address] [place] [address] 04/17/2025 4:30 PM EST PACE Home Care / [place] Home Visit [facility] [place] [facility] [address] [place] [phone] Ashley Eastman 04/18/2025 8:00 AM EST PACE Home Care / [place] Home Visit [facility] [place] [facility] [address] [place] [phone] Carmen Hartmann 04/18/2025 4:30 PM EST PACE Home Care / [place] Home Visit [facility] [place] [facility] [address] [place] [phone] Ashley Eastman 04/19/2025 12:00 PM EST PACE Home Care / [place] Home [facility] [place] [facility] [address] [place] [phone] Dena Chavez 04/20/2025 12:00 PM EST PACE Home Care / [place] Home Visit [facility] [place] [facility] [address] [place] [phone] Dena Chavez 04/21/2025 8:30 AM EST PACE Home Care / [place] Home Visit [facility] [place] [facility] [address] [place] [phone] Carmen Hartmann 04/21/2025 4:30 PM EST PACE Home Care / [place] Home Visit [facility] [place] [facility] [address] [place] [phone] Ashley Eastman 04/22/2025 8:30 AM EST PACE Home Care / [place] Home Visit [facility] [place] [facility] [address] [place] [phone] Carmen Hartmann 04/22/2025 4:30 PM EST PACE Home Care / [place] Home Visit [facility] [place] [facility] [address] [place] [phone] Ashley Eastman 04/23/2025 8:30 AM EST PACE Home Care / [place] Home Visit [facility] [place] [facility] [address] [place] [address] Carmen Hartmann 04/23/2025 4:30 PM EST PACE Home Care / [place] Home Visit [facility] [place] [facility] [address] [place] [phone] Ashley Eastman 04/24/2025 8:30 AM EST PACE Home Care / P[place] Home Visit [facility] [place] [facility] [address] [place] [address] Carmen Hartmann 04/24/2025 9:00 AM EST [facility] [place] [facility] [address] [place] [phone] 04/24/2025 4:30 PM EST PACE Home Care / [place] Home Visit [facility] [place] [facility] [address] [place] [phone] Ashley Eastman 04/25/2025 8:00 AM EST PACE Home Care / [place] Home Visit [facility] [place] [facility] [address] [place] [phone] Carmen Hartmann 04/25/2025 9:30 AM EST PACE Home Care / [place] Home Visit [facility] [place] [facility] [address] [place] [phone] Ralph Loyola 04/25/2025 4:30 PM EST PACE Home Care / [place] Home Visit [facility] [place] [facility] [address] [place] [phone] Ashley Eastman 04/26/2025 8:30 AM EST PACE Home Care / [place] [facility] Visit [facility] [place] [facility] [address] [place] [phone] Marysol Diaz 04/26/2025 12:00 PM EST PACE Home Care / [place] [facility] Visit [facility] [place] [facility] [address] [place] [phone] Natali Sanford 04/26/2025 5:30 PM EST PACE Home Care / [place] Home Visit [facility] [place] [facility] [address] [place] [phone] Marysol Diaz 04/27/2025 8:30 AM EST PACE Home Care / [place] Home [facility] [place] [facility] [address] [place] [phone] Marysol Diaz 04/27/2025 12:00 PM EST PACE Home Care / [place] [facility] [place] [facility] [address] [place] [phone] Natali Sanford 04/27/2025 4:30 PM EST PACE Home Care / [place] Home Visit [facility] [place] [facility] [address] [place] [phone] Marysol Diaz 04/27/2025 5:30 PM EST PACE Home Care / [place] Home Visit [facility] [place] [facility] [address] [place] [phone] Marysol Diaz 04/28/2025 8:30 AM EST PACE Home Care / [place] Home Visit [facility] [place] [facility] [address] [place] [phone] Carmen Hartmann 04/28/2025 4:30 PM EST PACE Home Care / [place] Home Visit [facility] [place] [facility] [address] [place] [phone] Ashley Eastman 04/29/2025 8:30 AM EST PACE Home Care / [place] [facility] Visit [facility] [place] [facility] [address] [place] [phone] Carmen Hartmann 04/29/2025 4:30 PM EST PACE Home Care / P[place] [facility] Visit [facility] [place] [facility] [address] [place] [address] Ashley Eastman 04/30/2025 8:30 AM EST PACE Home Care / PACE Home Visit [facility] [place] [facility] [address] [place] [address] Carmen Hartmann 04/30/2025 4:30 PM EST PACE Home Care / PACE Home Visit [facility] [place] [facility] [address] [place] [address] Ashley Eastman 05/01/2025 8:30 AM EST PACE Home Care / [facility] Visit [facility] [address] [place] [address] Carmen Hartmann 05/01/2025 9:00 AM EST PACE Attendance[facility] [place] [facility] [address] [place] [address] 05/01/2025 11:30 AM EST Clinical Support [facility] [address] [place] [address] 05/01/2025 4:30 PM EST PACE Home Care / P[place] [facility] Visit [facility] [place] [facility] [address] [place] [address] Ashley Eastman 05/02/2025 8:00 AM EST PACE Home Care / P[place] Home Visit [facility] [place] [facility] [address] [place] [address] Carmen Hartmann 05/02/2025 9:30 AM EST PACE Home Care / P[place] Home Visit [facility] [place] [facility] [address] [place] [address] Ralph Loyola 05/02/2025 4:30 PM EST PACE Home Care / P[place] Home Visit [facility] [place] [facility] [address] [place] [address] Ashley Eastman 05/03/2025 12:00 PM EST PACE Home Care / [facility] Home Visit [facility] [place] [facility] [address] [place] [address] Dena Chavez 05/04/2025 12:00 PM EST PACE Home Care / [facility] Home Visit [facility] [place] [facility] [address] [place] [address] Dena Chavez 05/05/2025 8:30 AM EST PACE Home Care / [facility] Home Visit [facility] [place] [facility] [address] [place] [address] Carmen Hartmann 05/05/2025 4:30 PM EST PACE Home Care / [facility] [facility] Visit [facility] [place] [facility] [address] [place] [phone] Ashley Eastman 05/06/2025 8:30 AM EST PACE Home Care / [place] Home Visit [facility] [place] [facility] [address] [place] [address] Carmen Hartmann 05/06/2025 4:30 PM EST PACE Home Care / [place] [facility] [place] [facility] [address] [place] [phone] Ashley Eastman 05/07/2025 8:30 AM EST PACE Home Care / [facility] [facility] [place] [facility] [address] [place] [address] Carmen Hartmann 05/07/2025 4:30 PM EST PACE Home Care / [facility] [place] [facility] [address] [place] [address] Ashley Eastman 05/08/2025 8:30 AM EST PACE Home Care / [facility] [facility] [place] [facility] [address] [place] [address] Carmen Hartmann 05/08/2025 9:00 AM EST [facility] [facility] [place] [facility] [address] [place] [address] 05/08/2025 4:30 PM EST PACE Home Care / [place] [facility] [place] [facility] [address] [place] [phone] Ashley Eastman 05/09/2025 8:00 AM EST PACE Home Care / [place] [facility] [place] [facility] [address] [place] [phone] Carmen Hartmann 05/09/2025 9:30 AM EST PACE Home Care / [place] [facility] [place] [facility] [address] [place] [phone] Ralph Loyola 05/09/2025 4:30 PM EST PACE Home Care / [place] [facility] [place] [facility] [address] [place] [phone] Ashley Eastman 05/10/2025 8:30 AM EST PACE Home Care / [place] [facility] [place] [facility] [address] [place] [phone] Marysol Diaz 05/10/2025 12:00 PM EST PACE Home Care / [place] [facility] [place] [facility] [address] [place] [phone] Natali Sanford 05/10/2025 5:30 PM EST PACE Home Care / [place] [facility] [place] [facility] [address] [place] [phone] Marysol Diaz 05/11/2025 8:30 AM EST PACE Home Care / [place] [facility] [place] [facility] [address] [place] [phone] Marysol Diaz 05/11/2025 12:00 PM EST PACE Home Care / [place] [facility] [place] [facility] [address] [place] [phone] Natali Sanford 05/11/2025 4:30 PM EST PACE Home Care / [place] [facility] Visit [facility] [place] [facility] [address] [place] [phone] Marysol Diaz 05/11/2025 5:30 PM EST PACE Home Care / [place] [facility] Visit [facility] [place] [facility] [address] [place] [phone] Marysol Diaz 05/12/2025 8:30 AM EST PACE Home Care / [place] [facility] Visit [facility] [place] [facility] [address] [place] [phone] Carmen Hartmann 05/12/2025 4:30 PM EST PACE Home Care / [facility] [facility] Visit [facility] [place] [facility] [address] [place] [phone] Ashley Eastman 05/13/2025 8:30 AM EST PACE Home Care / [facility] [facility] [place] [facility] [address] [place] [phone] Carmen Hartmann 05/13/2025 11:00 AM EST [facility] Visit [facility] [place] [facility] [address] [place] [phone] Regulo Ivy, ALONSO [facility] [place] [address] [address] Brigette East LPN 05/13/2025 4:30 PM EST PACE Home Care / [place] [facility] Visit [facility] [place] [facility] [address] [place] [phone] Ashley Eastman 05/14/2025 8:30 AM EST PACE Home Care / [place] [facility] Visit [facility] [place] [facility] [address] [place] [address] Carmen Hartmann 05/14/2025 4:30 PM EST PACE Home Care / [facility] [facility] Visit [facility] [place] [facility] [address] [place] [address] Ashley Eastman 05/15/2025 8:30 AM EST PACE Home Care / [facility] [facility] Visit [facility] [place] [facility] [address] [place] [address] Carmen Hartmann 05/15/2025 9:00 AM EST [facility] [place] [facility] [place] [facility] [address] [place] [address] 05/15/2025 4:30 PM EST PACE Home Care / [place] [facility] [place] [facility] [address] [place] [address] Ashley Eastman 05/16/2025 8:00 AM EST PACE Home Care / [facility] [facility] [place] [facility] [address] [place] [address] Carmen Hartmann 05/16/2025 9:30 AM EST PACE Home Care / [facility] [place] [facility] [address] [place] [address] Ralph Loyola 05/16/2025 4:30 PM EST PACE Home Care / [facility] [place] [facility] [address] [place] [address] Ashley Eastman 05/17/2025 12:00 PM EST PACE Home Care / [facility] [place] [facility] [address] [place] [address] Dena Chavez 05/18/2025 12:00 PM EST PACE Home Care / [facility] [place] [facility] [address] [place] [address] Dena Chavez 05/19/2025 8:30 AM EST PACE Home Care / [facility] [address] [place] [address] Carmen Hartmann 05/19/2025 4:30 PM EST PACE Home Care / [facility] [place] [facility] [address] [place] [address] Ashley Eastman 05/20/2025 8:30 AM EST PACE Home Care / [facility] [place] [facility] [address] [place] [address] Carmen Hartmann 05/20/2025 4:30 PM EST PACE Home Care / [facility] Visit [facility] [place] [facility] [address] [place] [address] Ashley Eastman 05/21/2025 8:30 AM EST PACE Home Care / [facility] [place] [facility] [address] [place] [phone] Carmen Hartmann 05/21/2025 4:30 PM EST PACE Home Care / [facility] [facility] Visit [facility] [place] [facility] [address] [place] [phone] Ashley Eastman 05/22/2025 8:30 AM EST PACE Home Care / [place] [facility] Visit [facility] [place] [facility] [address] [place] [phone] Carmen Hartmann 05/22/2025 9:00 AM EST [facility] Att[facility] [place] [facility] [address] [place] [address] 05/22/2025 4:30 PM EST PACE Home Care / [place] [facility] [place] [facility] [address] [place] [address] Ashley Eastman 05/23/2025 8:00 AM EST PACE Home Care / [facility] [place] [facility] [address] [place] [phone] Carmen Hartmann 05/23/2025 9:30 AM EST PACE Home Care / [facility] [facility] [place] [facility] [address] [place] [phone] Ralph Loyola 05/23/2025 4:30 PM EST PACE Home Care / [facility] [facility] [place] [facility] [address] [place] [phone] Ashley Eastman 05/24/2025 8:30 AM EST PACE Home Care / [place] [facility] [place] [facility] [address] [place] [phone] Marysol Diaz 05/24/2025 12:00 PM EST PACE Home Care / [place] [facility] [place] [facility] [address] [place] [phone] Natali Sanford 05/24/2025 5:30 PM EST PACE Home Care / [place] [facility] [place] [facility] [address] [place] [phone] Marysol Diaz 05/25/2025 8:30 AM EST PACE Home Care / [facility] [facility] [place] [facility] [address] [place] [phone] Marysol Diaz 05/25/2025 12:00 PM EST PACE Home Care / [place] [facility] [place] [facility] [address] [place] [phone] Natali Sanford 05/25/2025 4:30 PM EST PACE Home Care / [place] [facility] [place] [facility] [address] [place] [phone] Marysol Diaz 05/25/2025 5:30 PM EST PACE Home Care / [facility] [facility] [place] [facility] [address] [place] [phone] Marysol Diaz 05/26/2025 8:30 AM EST PACE Home Care / [place] [facility] [place] [facility] [address] [place] [phone] Carmen Hartmann 05/26/2025 4:30 PM EST PACE Home Care / [place] [facility] [place] [facility] [address] [place] [phone] Ashley Eastman 05/27/2025 8:30 AM EST PACE Home Care / [facility] [facility] [place] [facility] [address] [place] [phone] Carmen Hartmann 05/27/2025 4:30 PM EST PACE Home Care / [facility] [place] [facility] [address] [place] [phone] Ashley Eastman 05/28/2025 8:30 AM EST PACE Home Care / [facility] [facility] [place] [facility] [address] [place] [phone] Carmen Hartmann 05/28/2025 4:30 PM EST PACE Home Care / [facility] [facility] [place] [facility] [address] [place] [phone] Ashley Eastman 05/29/2025 8:30 AM EST PACE Home Care / [facility] [place] [facility] [address] [place] [phone] Carmen Hartmann 05/29/2025 9:00 AM EST [facility] [facility] [place] [facility] [address] [place] [address] 05/29/2025 4:30 PM EST PACE Home Care / [facility] [facility] [place] [facility] [address] [place] [phone] Ashley Eastman 05/30/2025 8:00 AM EST P[facility] Home Care / [facility] [place] [facility] [address] [place] [phone] Carmen Hartmann 05/30/2025 9:30 AM EST PACE Home Care / [facility] [facility] [place] [facility] [address] [place] [phone] Ralph Loyola 05/30/2025 4:30 PM EST PACE Home Care / [facility] [place] [facility] [address] [place] [phone] Ashley Eastman 06/05/2025 9:00 AM EST [facility] [place] [facility] [place] [facility] [address] [place] [phone] 06/10/2025 11:00 AM EST [facility] [place] [facility] [address] [place] [phone] Michelle Castillo MD [address] [place] [phone] Brigette East LPN 06/12/2025 9:00 AM EST [facility] [facility] [place] [facility] [address] [place] [phone] 06/19/2025 9:00 AM EST [facility] [facility] [place] [facility] [address] [place] [phone] 06/26/2025 9:00 AM EDT [facility] [facility] [place] [facility] [address] [place] [phone] 06/27/2025 1:20 PM EDT Office Visit Gastroenterology - [address] [place] [address] Analisa Perez, ALONSO [address] [place] [address] 07/03/2025 9:00 AM EDT P[facility] Attendance/[place] [facility] [place] [facility] [address] [place] [phone] 07/10/2025 9:00 AM EDT P[facility] Attendance[place] [facility] [place] [facility] [address] [place] [phone] 07/17/2025 9:00 AM EDT PACE Attendance/Day [facility] [place] [facility] [address] [place] [phone] 07/17/2025 3:30 PM EDT PACE External Visit [facility] [address] [place] [phone] 07/24/2025 9:00 AM EDT PACE Attendance/[facility] [place] [facility] [address] [place] [phone] 07/31/2025 9:00 AM EDT PACE Attendance/[place] [facility] [place] [facility] [address] [place] [phone] 08/07/2025 9:00 AM EDT PACE Attendance/[place] [facility] [place] [facility] [address] [place] [phone] 08/14/2025 9:00 AM EDT PACE Attendance/[place] [facility] [place] [facility] [address] [place] [phone] 08/21/2025 9:00 AM EDT PACE Attendance[place] [facility] [place] [facility] [address] [place] [phone] 08/28/2025 9:00 AM EDT PACE Attendance/[place] [facility] [place] [facility] [address] [place] [phone] 09/04/2025 9:00 AM EDT PACE Attendance/Day Center [facility] [address] [place] [phone] 09/11/2025 9:00 AM EDT PACE Attendance/Day Center [facility] [address] [place] [phone] 09/18/2025 9:00 AM EDT PACE Attendance/Day Center [facility] [address] [place] [phone] 09/25/2025 9:00 AM EDT PACE Attendance/Day Center [facility] [address] [place] [phone] 10/02/2025 9:00 AM EDT PACE Attendance/Day Center [facility] [address] [place] [phone] 10/09/2025 9:00 AM EDT PACE Attendance/Day Center [facility] [address] [place] [phone] documented as of this encounter Visit Diagnoses Not on filedocumented in this encounter Care Teams Endoscopy Technician Relationship Specialty Start Date End Date Regulo Ivy NP [address] [place] [id number] PCP - General PACE 06/07/24 documented as of this encounter
--- OUTSIDE RECORDS SUMMARY | 2025-03-27 14:20 | XMS_ITS | Encounter Summary ---
Author Organization [facility] Address [address] [place] [address] Care Team Providers Care Audio/Video Technician Name Role Phone Regulo Ivy NP Primary Care Provider [phone] Reason for Visit * Consultation (Routine) - Authorized Specialty Diagnoses / Procedures Referred By Contross t Referred To Contact Podiatry Diagnoses Healthcare maintenance Regulo Ivy NP [address] [facility] [address] [place] [address] Phone: tel: fax:[phone] Comprehensive Mobile Care - Podiatry, Dental, Audiology, Optometry - [place] [address] [address] [address] [place] [address] Phone: tel: fax: Referral ID Status Reason Start Date Expiration Date Visits Requested Visits Authorized [id number] Authorized Consult and Treat 06/09/2024 06/09/2025 1 1 Encounter Details Date Type Department Care Team ([facility] Contact Info) Description 03/27/2025 2:20 PM EST PACE External Visit [facility] [place] [address] [place] [address] Social History Tobacco Use Types Packs/Day Years [...] your loved ones. 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 [...] of Assessment Author Yes 02/03/2025 3:31 PM Maalchi Fatima RN * Do you have serious [...] [facility] [address] [place] [address] Carmen Hartmann 04/02/2025 4:30 PM EST PACE Home Care / PACE Home Visit [facility] [place] [facility] [address] [place] [address] Ashley Eastman 04/03/2025 8:30 AM EST PACE Home Care / PACE Home Visit [facility] [place] [facility] [address] [place] [address] Carmen Hartmann 04/03/2025 9:00 AM EST PACE Attendance/[facility] [place] [facility] [address] [place] [address] 04/03/2025 4:30 PM EST PACE Home Care / PACE Home Visit [facility] [place] [facility] [address] [place] [phone] Ashley Eastman 04/04/2025 [facility] [place] [facility] [address] [place] [address] Regulo Ivy, ALONSO [address] [address] Constipation, unspecified constipation type 04/04/2025 8:00 AM EST PACE Home Care / PACE Home Visit [facility] [place] [facility] [address] [place] [phone] Titi Thomas 04/04/2025 8:30 AM EST PACE Home Care / [facility] [place] [facility] [address] [place] [phone] Marysol Diaz 04/04/2025 4:30 PM EST PACE Home Care / [facility] Visit [facility] [place] [facility] [address] [place] [phone] Ashley Eastman 04/05/2025 12:00 PM EST PACE Home Care / [facility] [place] [facility] [address] [place] [address] Dena Chavez 04/06/2025 12:00 PM EST PACE Home Care / [facility] Visit [facility] [place] [facility] [address] [place] [address] Dena Chavez 2025 8:30 AM EST PACE Home Care / [facility] [place] [facility] [address] [place] [address] Carmen Hartmann 2025 4:30 PM EST PACE Home Care / [facility] [place] [facility] [address] [place] [phone] Ashley Eastman 04/08/2025 8:30 AM EST PACE Home Care / [facility] [place] [facility] [address] [place] [phone] Carmen Hartmann 04/08/2025 4:30 PM EST PACE Home Care / [facility] Visit [facility] [place] [facility] [address] [place] [phone] Ashley Eastman 04/09/2025 8:30 AM EST PACE Home Care / [facility] Home Visit [facility] [place] [facility] [address] [place] [phone] Carmen Hartmann 04/09/2025 4:30 PM EST PACE Home Care / [facility] [place] [facility] [address] [place] [phone] Ashley Eastman 04/10/2025 6:05 AM EST PACE Home Care / [facility] Home Visit [facility] [place] [facility] [address] [place] [phone] Jackeline Mcrae 04/10/2025 9:00 AM EST PACE Attendance[facility] [place] [facility] [address] [place] [address] 04/10/2025 4:30 PM EST PACE Home Care / [facility] [place] [facility] [address] [place] [address] Ashley Eastman 04/11/2025 8:00 AM EST PACE Home Care / [facility] Visit [facility] [place] [facility] [address] [place] [address] Carmen Hartmann 04/11/2025 9:30 AM EST PACE Home Care / [facility] Home Visit [facility] [place] [facility] [address] [place] [address] Carmen Hartmann 04/11/2025 4:30 PM EST PACE Home Care / [facility] Home Visit [facility] [place] [facility] [address] [place] [address] Ashley Eastman 04/12/2025 8:30 AM EST PACE Home Care / [place] Home Visit [facility] [place] [facility] [address] [place] [address] Marysol Diaz 04/12/2025 12:00 PM EST PACE Home Care / [facility] Visit [facility] [place] [facility] [address] [place] [address] Natali Sanford 04/12/2025 5:30 PM EST PACE Home Care / [facility] Home Visit [facility] [place] [facility] [address] [place] [address] aMrysol Diaz 04/13/2025 8:30 AM EST PACE Home Care / [facility] Visit [facility] [place] [facility] [address] [place] [address] Marysol Diaz 04/13/2025 12:00 PM EST PACE Home Care / [place] [facility] Visit [facility] [place] [facility] [address] [place] [address] Natali Sanford 04/13/2025 4:30 PM EST PACE Home Care / PACE Home Visit [facility] [place] [facility] [address] [place] [address] Marysol Diaz 04/13/2025 5:30 PM EST PACE Home Care / PACE Home Visit [facility] [place] [facility] [address] [place] [phone] Marysol Diaz 04/14/2025 8:30 AM EST PACE Home Care / PACE Home Visit [facility] [place] [facility] [address] [place] [phone] Carmen Hartmann 04/14/2025 4:30 PM EST PACE Home Care / PACE Home Visit [facility] [place] [facility] [address] [place] [phone] Ashley Eastman 04/15/2025 8:30 AM EST PACE Home Care / PACE Home Visit [facility] [place] [facility] [address] [place] [phone] Carmen Hartmann 04/15/2025 11:00 AM EST [facility] [place] [facility] [address] [place] [phone] Regulo Ivy, ALONSO [address] [place] [address] Brigette East LPN 04/15/2025 4:30 PM EST PACE Home Care / [facility] Visit [facility] [place] [facility] [address] [place] [phone] Ashley Eastman 04/16/2025 8:30 AM EST PACE Home Care / PACE Home Visit [facility] [place] [facility] [address] [place] [phone] Carmen Hartmann 04/16/2025 4:30 PM EST PACE Home Care / [facility] Visit [facility] [place] [facility] [address] [place] [phone] Ashley Eastman 04/17/2025 8:30 AM EST PACE Home Care / [facility] [facility] [place] [facility] [address] [place] [phone] Carmen Hartmann 04/17/2025 9:00 AM EST [facility] [place] [facility] [address] [place] [address] 04/17/2025 4:30 PM EST PACE Home Care / [place] [facility] [place] [facility] [address] [place] [phone] Ashley Eastman 04/18/2025 8:00 AM EST PACE Home Care / [facility] [place] [facility] [address] [place] [phone] Carmen Hartmann 04/18/2025 4:30 PM EST PACE Home Care / [facility] [facility] [place] [facility] [address] [place] [phone] Ashley Eastman 04/19/2025 12:00 PM EST PACE Home Care / [facility] [facility] [place] [facility] [address] [place] [phone] Dena Chavez 04/20/2025 12:00 PM EST PACE Home Care / [facility] [facility] Visit [facility] [place] [facility] [address] [place] [phone] Dena Chavez 04/21/2025 8:30 AM EST PACE Home Care / [place] [facility] Visit [facility] [place] [facility] [address] [place] [phone] Carmen Hartmann 04/21/2025 4:30 PM EST PACE Home Care / [place] [facility] Visit [facility] [place] [facility] [address] [place] [address] Ashley Eastman 04/22/2025 8:30 AM EST PACE Home Care / [facility] [facility] [place] [facility] [address] [place] [phone] Carmen Hartmann 04/22/2025 4:30 PM EST PACE Home Care / [facility] [facility] Visit [facility] [place] [facility] [address] [place] [phone] Ashley Eastman 04/23/2025 8:30 AM EST PACE Home Care / [facility] [facility] [place] [facility] [address] [place] [phone] Carmen Hartmann 04/23/2025 4:30 PM EST PACE Home Care / [place] [facility] [place] [facility] [address] [place] [phone] Ashley Eastman 04/24/2025 8:30 AM EST PACE Home Care / [place] [facility] Visit [facility] [place] [facility] [address] [place] [phone] Carmen Hartmann 04/24/2025 9:00 AM EST [facility] [place] [facility] [address] [place] [address] 04/24/2025 4:30 PM EST PACE Home Care / [facility] [facility] [place] [facility] [address] [place] [phone] Ashley Eastman 04/25/2025 8:00 AM EST PACE Home Care / [facility] [facility] Visit [facility] [place] [facility] [address] [place] [phone] Carmen Hartmann 04/25/2025 9:30 AM EST PACE Home Care / [facility] [facility] Visit [facility] [place] [facility] [address] [place] [address] Ralph Loyola 04/25/2025 4:30 PM EST PACE Home Care / [facility] [place] [facility] [address] [place] [address] Ashley Eastman 04/26/2025 8:30 AM EST PACE Home Care / [facility] [place] [facility] [address] [place] [address] Marysol Diaz 04/26/2025 12:00 PM EST PACE Home Care / [facility] [facility] [place] [facility] [address] [place] [phone] Natali Sanford 04/26/2025 5:30 PM EST PACE Home Care / [place] [facility] [place] [facility] [address] [place] [phone] Marysol Diaz 04/27/2025 8:30 AM EST PACE Home Care / [facility] [place] [facility] [address] [place] [phone] Marysol Diaz 04/27/2025 12:00 PM EST PACE Home Care / [facility] [place] [facility] [address] [place] [phone] Natali Sanford 04/27/2025 4:30 PM EST PACE Home Care / [facility] [place] [facility] [address] [place] [phone] Marysol Diaz 04/27/2025 5:30 PM EST PACE Home Care / [facility] [place] [facility] [address] [place] [phone] Marysol Diaz 04/28/2025 8:30 AM EST PACE Home Care / [facility] [place] [facility] [address] [place] [address] Carmen Hartmann 04/28/2025 4:30 PM EST PACE Home Care / PACE Home Visit [facility] [address] [place] [address] Ashley Eastman 04/29/2025 8:30 AM EST PACE Home Care / PACE Home Visit [facility] [place] [facility] [address] [place] [address] Carmen Hartmann 04/29/2025 4:30 PM EST PACE Home Care / PACE Home Visit [facility] [address] [place] [phone] Ashley Eastman 04/30/2025 8:30 AM EST PACE Home Care / PACE Home Visit [facility] [address] [place] [phone] Carmen Hartmann 04/30/2025 4:30 PM EST PACE Home Care / PACE Home Visit [facility] [address] [place] [phone] Ashley Eastman 05/01/2025 8:30 AM EST PACE Home Care / PACE Home Visit [facility] [place] [facility] [address] [place] [phone] Carmen Hartmann 05/01/2025 9:00 AM EST PACE Attendance[facility] [place] [facility] [address] [place] [address] 05/01/2025 11:30 AM EST Clinical Support [facility] [place] [address] [place] [phone] 05/01/2025 4:30 PM EST PACE Home Care / PACE Home Visit [facility] [address] [place] [phone] Ashley Eastman 05/02/2025 8:00 AM EST PACE Home Care / [facility] [place] [facility] [address] [place] [phone] Carmen Hartmann 05/02/2025 9:30 AM EST PACE Home Care / [facility] Visit [facility] [place] [facility] [address] [place] [phone] Ralph Loyola 05/02/2025 4:30 PM EST PACE Home Care / [facility] [place] [facility] [address] [place] [phone] Ashley Eastman 05/03/2025 12:00 PM EST PACE Home Care / [facility] [place] [facility] [address] [place] [phone] Dena Chavez 05/04/2025 12:00 PM EST PACE Home Care / [facility] [facility] [place] [facility] [address] [place] [phone] Dena Chavez 05/05/2025 8:30 AM EST PACE Home Care / [facility] [place] [facility] [address] [place] [phone] Carmen Hartmann 05/05/2025 4:30 PM EST PACE Home Care / [facility] [place] [facility] [address] [place] [phone] Ashley Eastman 05/06/2025 8:30 AM EST PACE Home Care / [facility] [place] [facility] [address] [place] [phone] Carmen Hartmann 05/06/2025 4:30 PM EST PACE Home Care / [facility] [place] [facility] [address] [place] [phone] Ashley Eastman 05/07/2025 8:30 AM EST PACE Home Care / [facility] Visit [facility] [place] [facility] [address] [place] [address] Carmen Hartmann 05/07/2025 4:30 PM EST PACE Home Care / [facility] Visit [facility] [place] [facility] [address] [place] [phone] Ashley Eastman 05/08/2025 8:30 AM EST PACE Home Care / [facility] Visit [facility] [place] [facility] [address] [place] [phone] Carmen Hartmann 05/08/2025 9:00 AM EST PACE Attendance[facility] [place] [facility] [address] [place] [phone] 05/08/2025 4:30 PM EST PACE Home Care / [facility] [place] [facility] [address] [place] [phone] Ashley Eastman 05/09/2025 8:00 AM EST PACE Home Care / [facility] [place] [facility] [address] [place] [phone] Carmen Hartmann 05/09/2025 9:30 AM EST PACE Home Care / [facility] [place] [facility] [address] [place] [phone] Ralph Loyola 05/09/2025 4:30 PM EST PACE Home Care / [facility] [place] [facility] [address] [place] [phone] Ashley Eastman 05/10/2025 8:30 AM EST PACE Home Care / [facility] [place] [facility] [address] [place] [phone] Marysol Diaz 05/10/2025 12:00 PM EST PACE Home Care / [facility] [place] [facility] [address] [place] [phone] Natali Sanford 05/10/2025 5:30 PM EST PACE Home Care / [facility] [place] [facility] [address] [place] [phone] Marysol Diaz 05/11/2025 8:30 AM EST PACE Home Care / [facility] [place] [facility] [address] [place] [phone] Marysol Diaz 05/11/2025 12:00 PM EST PACE Home Care / [facility] [place] [facility] [address] [place] [phone] Natali Sanford 05/11/2025 4:30 PM EST PACE Home Care / [facility] [place] [facility] [address] [place] [phone] Marysol Diaz 05/11/2025 5:30 PM EST PACE Home Care / [facility] [place] [facility] [address] [place] [phone] Marysol Diaz 05/12/2025 8:30 AM EST PACE Home Care / [facility] [place] [facility] [address] [place] [phone] Carmen Hartmann 05/12/2025 4:30 PM EST PACE Home Care / [facility] [place] [facility] [address] [place] [phone] Ashley Eastman 05/13/2025 8:30 AM EST PACE Home Care / [facility] [place] [facility] [address] [place] [phone] Carmen Hartmann 05/13/2025 11:00 AM EST [facility] [place] [facility] [address] [place] [address] Regulo Ivy, ALONSO [address] [address] Brigette East LPN 05/13/2025 4:30 PM EST PACE Home Care / PACE Home Visit [facility] [address] [place] [address] Ashley Eastman 05/14/2025 8:30 AM EST PACE Home Care / [facility] [place] [facility] [address] [place] [phone] Carmen Hartmann 05/14/2025 4:30 PM EST PACE Home Care / [facility] Visit [facility] [place] [facility] [address] [place] [phone] Ashley Eastman 05/15/2025 8:30 AM EST PACE Home Care / PACE Home Visit [facility] [address] [place] [phone] Carmen Hartmann 05/15/2025 9:00 AM EST PACE Attendance[facility] [place] [facility] [address] [place] [address] 05/15/2025 4:30 PM EST PACE Home Care / [facility] Visit [facility] [place] [facility] [address] [place] [phone] Ashley Eastman 05/16/2025 8:00 AM EST PACE Home Care / [facility] Visit [facility] [place] [facility] [address] [place] [phone] Carmen Hartmann 05/16/2025 9:30 AM EST PACE Home Care / [facility] [place] [facility] [address] [place] [address] Ralph Loyola 05/16/2025 4:30 PM EST PACE Home Care / [facility] [place] [facility] [address] [place] [address] Ashley Eastman 05/17/2025 12:00 PM EST PACE Home Care / [facility] [place] [facility] [address] [place] [address] Dena Chavez 05/18/2025 12:00 PM EST PACE Home Care / [facility] [place] [facility] [address] [place] [phone] Dena Chavez 05/19/2025 8:30 AM EST PACE Home Care / [facility] [place] [facility] [address] [place] [phone] Carmen Hartmann 05/19/2025 4:30 PM EST PACE Home Care / [facility] [place] [facility] [address] [place] [phone] Ashley Eastman 05/20/2025 8:30 AM EST PACE Home Care / [facility] [place] [facility] [address] [place] [phone] Carmen Hartmann 05/20/2025 4:30 PM EST PACE Home Care / [facility] [place] [facility] [address] [place] [phone] Ashley Eastman 05/21/2025 8:30 AM EST PACE Home Care / [facility] [place] [facility] [address] [place] [phone] Carmen Hartmann 05/21/2025 4:30 PM EST PACE Home Care / [facility] [place] [facility] [address] [place] [address] Ashley Eastman 05/22/2025 8:30 AM EST PACE Home Care / [facility] [place] [facility] [address] [place] [phone] Carmen Hartmann 05/22/2025 9:00 AM EST [facility] [place] [facility] [address] [place] [address] 05/22/2025 4:30 PM EST PACE Home Care / [facility] [place] [facility] [address] [place] [phone] Ashley Eastman 05/23/2025 8:00 AM EST PACE Home Care / [facility] [place] [facility] [address] [place] [phone] Carmen Hartmann 05/23/2025 9:30 AM EST PACE Home Care / [facility] [place] [facility] [address] [place] [phone] Ralph Loyola 05/23/2025 4:30 PM EST PACE Home Care / [facility] [place] [facility] [address] [place] [phone] Ashley Eastman 05/24/2025 8:30 AM EST PACE Home Care / [facility] [place] [facility] [address] [place] [phone] Marysol Diaz 05/24/2025 12:00 PM EST PACE Home Care / [facility] [place] [facility] [address] [place] [phone] Natali Sanford 05/24/2025 5:30 PM EST PACE Home Care / [facility] [place] [facility] [address] [place] [phone] Marysol Diaz 05/25/2025 8:30 AM EST PACE Home Care / [facility] [place] [facility] [address] [place] [phone] Marysol Diaz 05/25/2025 12:00 PM EST PACE Home Care / [facility] [place] [facility] [address] [place] [phone] Natali Sanford 05/25/2025 4:30 PM EST PACE Home Care / [facility] [place] [facility] [address] [place] [phone] Marysol Diaz 05/25/2025 5:30 PM EST PACE Home Care / [facility] [place] [facility] [address] [place] [phone] Marysol Diaz 05/26/2025 8:30 AM EST PACE Home Care / [facility] [place] [facility] [address] [place] [phone] Carmen Hartmann 05/26/2025 4:30 PM EST PACE Home Care / [facility] [place] [facility] [address] [place] [phone] Ashley Eastman 05/27/2025 8:30 AM EST P[facility] Home Care / [facility] [place] [facility] [address] [place] [phone] Carmen Hartmann 05/27/2025 4:30 PM EST P[facility] Home Care / [facility] [place] [facility] [address] [place] [phone] Ashley Eastman 05/28/2025 8:30 AM EST P[facility] Home Care / [facility] [place] [facility] [address] [place] [phone] Carmen Hartmann 05/28/2025 4:30 PM EST P[facility] Home Care / [facility] [place] [facility] [address] [place] [phone] Ashley Eastman 05/29/2025 8:30 AM EST P[facility] Home Care / [facility] [place] [facility] [address] [place] [phone] Carmen Hratmann 05/29/2025 9:00 AM EST [facility] [place] [facility] [address] [place] [phone] 05/29/2025 4:30 PM EST PACE Home Care / [facility] [place] [facility] [address] [place] [phone] Ashley Eastman 05/30/2025 8:00 AM EST P[facility] Home Care / [facility] [place] [facility] [address] [place] [phone] Carmen Hartmann 05/30/2025 9:30 AM EST PACE Home Care / [facility] [place] [facility] [address] [place] [phone] Ralph Loyola 05/30/2025 4:30 PM EST PACE Home Care / [facility] [place] [facility] [address] [place] [phone] Ashley Eastman 06/05/2025 9:00 AM EST [facility] Att[facility] [place] [facility] [address] [place] [phone] 06/10/2025 11:00 AM EST [facility] Visit [facility] [place] [facility] [address] [place] [phone] Michelle Castillo MD [address] [place] [phone] Brigette East LPN 06/12/2025 9:00 AM EST PACE Attendance/Day Center [facility] [address] [place] [phone] 06/19/2025 9:00 AM EST P[facility] Attendance/Day Center [facility] [address] [place] [phone] 06/26/2025 9:00 AM EDT [facility] Attendance/Day Center [facility] [address] [place] [phone] 06/27/2025 1:20 PM EDT Office Visit Gastroenterology - [address] [facility] [address] [address] [place] [id number] Analisa Perez, ALONSO [address] [facility] [address] [place] [id number] 07/03/2025 9:00 AM EDT [facility] Attendance/Day Center [facility] [address] [place] [phone] 07/10/2025 9:00 AM EDT [facility] Attendance/Day Center [facility] [address] [place] [phone] 07/17/2025 9:00 AM EDT [facility] Attendance/Day Center [facility] [address] [place] [phone] 07/17/2025 3:30 PM EDT PACE External Visit [address] [phone] 07/24/2025 9:00 AM EDT [facility] Attendance/Day Center [facility] [address] [place] [phone] 07/31/2025 9:00 AM EDT [facility] Attendance/Day Center [facility] [address] [place] [phone] 08/07/2025 9:00 AM EDT [facility] Attendance[facility] [facility] [place] [facility] [address] [place] [phone] 08/14/2025 9:00 AM EDT [facility] Attendance/[facility] [address] [place] [phone] 08/21/2025 9:00 AM EDT [facility] Attendance/[facility] [address] [place] [phone] 08/28/2025 9:00 AM EDT [facility] Attendance[facility] [facility] [place] [facility] [address] [place] [phone] 09/04/2025 9:00 AM EDT [facility] Attendance[facility] [facility] [place] [facility] [address] [place] [phone] 09/11/2025 9:00 AM EDT [facility] Attendance[facility] [facility] [place] [facility] [address] [place] [phone] 09/18/2025 9:00 AM EDT [facility] Attendance/[facility] [address] [place] [phone] 09/25/2025 9:00 AM EDT [facility] Attendance[facility] [facility] [place] [facility] [address] [place] [phone] 10/02/2025 9:00 AM EDT [facility] Attendance/[facility] [address] [place] [phone] 10/09/2025 9:00 AM EDT [facility] Attendance/[facility] [address] [place] [phone] documented as of this encounter Visit Diagnoses Not on filedocumented in this encounter Orders Outpatient Referral Count Last Ordered Date Fir st Ordered Date AMB REFERRAL TO PODIATRY 1 03/27/2025 documented in this encounter Care Teams Audio/Video Technician Relationship Specialty Start Date End Date Regulo Ivy NP [address] [place] [address] PCP - General [facility]ACE 06/07/24 documented as of this encounter
--- OUTSIDE RECORDS SUMMARY | 2025-03-27 16:30 | XMS_ITS | Encounter Summary ---
Author Organization [facility] Address [address] [place] [address] Care Team Providers Care Teacher Dancing Name Role Phone Regulo Ivy NP Primary Care Provider [phone] Encounter Details Date Type Department Care Team (Late st Contact Info) Description 03/27/2025 4:30 PM EST PACE Home Care / PACE Home Visit [facility] In [facility] Nursing and Aide Services [address] [place] [address] Ashley Eastman Social History Tobacco [...] your loved ones. For example, child and family services worker or elderly care for an older adult? [...] [place] [facility] [address] [place] [phone] Carmen Hartmann 04/02/2025 4:30 PM EST PACE Home Care / PACE Home Visit [facility] [place] [facility] [address] [place] [phone] Ashley Eastman 04/03/2025 8:30 AM EST PACE Home Care / PACE Home Visit [facility] [place] [facility] [address] [place] [phone] Carmen Hartmann 04/03/2025 9:00 AM EST PACE Attendance[facility] [place] [facility] [address] [place] [address] 04/03/2025 4:30 PM EST PACE Home Care / PACE Home Visit [facility] [place] [facility] [address] [place] [phone] Ashley Eastman 04/04/2025 [facility] [place] [facility] [address] [place] [address] Regulo Ivy, ALONSO [address] [address] Constipation, unspecified constipation type 04/04/2025 8:00 AM EST PACE Home Care / PACE Home Visit [facility] [place] [facility] [address] [place] [phone] Titi Thomas 04/04/2025 8:30 AM EST PACE Home Care / PACE Home Visit [facility] [place] [facility] [address] [place] [phone] Marysol Diaz 04/04/2025 4:30 PM EST PACE Home Care / PACE Home Visit [facility] [place] [facility] [address] [place] [phone] Ashley Eastman 04/05/2025 12:00 PM EST PACE Home Care / PACE Home Visit [facility] [place] [facility] [address] [place] [phone] Dena Chavez 04/06/2025 12:00 PM EST PACE Home Care / PACE Home Visit [facility] [place] [facility] [address] [place] [phone] Dena Chavez 2025 8:30 AM EST PACE Home Care / PACE Home Visit [facility] [place] [facility] [address] [place] [phone] Carmen Hartmann 2025 4:30 PM EST PACE Home Care / [facility] Visit [facility] [place] [facility] [address] [place] [address] Ashley Eastman 04/08/2025 8:30 AM EST PACE Home Care / [facility] Home Visit [facility] [place] [facility] [address] [place] [address] Carmen Hartmann 04/08/2025 4:30 PM EST PACE Home Care / [facility] Home Visit [facility] [place] [facility] [address] [place] [phone] Ashley Eastman 04/09/2025 8:30 AM EST PACE Home Care / P[facility] Home Visit [facility] [place] [facility] [address] [place] [phone] Carmen Hartmann 04/09/2025 4:30 PM EST PACE Home Care / [facility] Home Visit [facility] [place] [facility] [address] [place] [phone] Ashley Eastman 04/10/2025 6:05 AM EST PACE Home Care / P[facility] Home Visit [facility] [place] [facility] [address] [place] [phone] Jackeline Mcrae 04/10/2025 9:00 AM EST [facility] [place] [facility] [address] [place] [address] 04/10/2025 4:30 PM EST PACE Home Care / [facility] Home Visit [facility] [place] [facility] [address] [place] [phone] Ashley Eastman 04/11/2025 8:00 AM EST PACE Home Care / [facility] Home Visit [facility] [place] [facility] [address] [place] [phone] Carmen Hartmann 04/11/2025 9:30 AM EST PACE Home Care / [facility] Home Visit [facility] [place] [facility] [address] [place] [address] Carmen Hartmann 04/11/2025 4:30 PM EST PACE Home Care / [facility] Home Visit [facility] [place] [facility] [address] [place] [address] Ashley Eastman 04/12/2025 8:30 AM EST PACE Home Care / P[facility] Home Visit [facility] [place] [facility] [address] [place] [address] Marysol Diaz 04/12/2025 12:00 PM EST PACE Home Care / P[facility] Home Visit [facility] [place] [facility] [address] [place] [address] Natali Sanford 04/12/2025 5:30 PM EST PACE Home Care / [facility] Home Visit [facility] [place] [facility] [address] [place] [address] Marysol Diaz 04/13/2025 8:30 AM EST PACE Home Care / P[facility] Home Visit [facility] [place] [facility] [address] [place] [address] Marysol Diaz 04/13/2025 12:00 PM EST PACE Home Care / PACE Home Visit [facility] [place] [facility] [address] [place] [address] Natali Sanford 04/13/2025 4:30 PM EST PACE Home Care / [facility] Home Visit [facility] [place] [facility] [address] [place] [phone] Marysol Diaz 04/13/2025 5:30 PM EST PACE Home Care / [facility] Home Visit [facility] [place] [facility] [address] [place] [phone] Marysol Diaz 04/14/2025 8:30 AM EST PACE Home Care / [facility] Home Visit [facility] [place] [facility] [address] [place] [address] Carmen Hartmann 04/14/2025 4:30 PM EST PACE Home Care / [facility] Home Visit [facility] [place] [facility] [address] [place] [address] Ashley Eastman 04/15/2025 8:30 AM EST PACE Home Care / PACE Home Visit [facility] [place] [facility] [address] [place] [address] Carmen Hartmann 04/15/2025 11:00 AM EST [facility] Visit [facility] [place] [facility] [address] [place] [address] Regulo Ivy, ALONSO [address] [place] [phone] Brigette East LPN 04/15/2025 4:30 PM EST PACE Home Care / PACE Home Visit [facility] [place] [facility] [address] [place] [phone] Ashley Eastman 04/16/2025 8:30 AM EST PACE Home Care / [facility] Home Visit [facility] [place] [facility] [address] [place] [phone] Carmen Hartmann 04/16/2025 4:30 PM EST PACE Home Care / PACE Home Visit [facility] [place] [facility] [address] [place] [phone] Ashley Eastman 04/17/2025 8:30 AM EST PACE Home Care / PACE Home Visit [facility] [place] [facility] [address] [place] [phone] Carmen Hartmann 04/17/2025 9:00 AM EST [facility] [place] [facility] [address] [place] [address] 04/17/2025 4:30 PM EST PACE Home Care / [facility] Home Visit [facility] [place] [facility] [address] [place] [phone] Ashley Eastman 04/18/2025 8:00 AM EST PACE Home Care / [facility] Home Visit [facility] [place] [facility] [address] [place] [phone] Carmen Hartmann 04/18/2025 4:30 PM EST PACE Home Care / [facility] Home Visit [facility] [place] [facility] [address] [place] [phone] Ashley Eastman 04/19/2025 12:00 PM EST PACE Home Care / P[facility] Home Visit [facility] [place] [facility] [address] [place] [phone] Dena Chavez 04/20/2025 12:00 PM EST PACE Home Care / P[facility] Home Visit [facility] [place] [facility] [address] [place] [phone] Dena Chavez 04/21/2025 8:30 AM EST PACE Home Care / [facility] Home Visit [facility] [place] [facility] [address] [place] [phone] Carmen Hartmann 04/21/2025 4:30 PM EST PACE Home Care / [facility] Home Visit [facility] [place] [facility] [address] [place] [phone] Ashley Eastman 04/22/2025 8:30 AM EST PACE Home Care / P[facility] Home Visit [facility] [place] [facility] [address] [place] [phone] Carmen Hartmann 04/22/2025 4:30 PM EST PACE Home Care / P[facility] Home Visit [facility] [place] [facility] [address] [place] [phone] Ashley Eastman 04/23/2025 8:30 AM EST PACE Home Care / PACE Home Visit [facility] [place] [facility] [address] [place] [address] Carmen Hartmann 04/23/2025 4:30 PM EST PACE Home Care / P[facility] Home Visit [facility] [place] [facility] [address] [place] [phone] Ashley Eastman 04/24/2025 8:30 AM EST PACE Home Care / PACE Home Visit [facility] [place] [facility] [address] [place] [address] Carmen Hartmann 04/24/2025 9:00 AM EST [facility] [place] [facility] [address] [place] [phone] 04/24/2025 4:30 PM EST PACE Home Care / [facility] Home Visit [facility] [place] [facility] [address] [place] [phone] Ashley Eastman 04/25/2025 8:00 AM EST PACE Home Care / [facility] Home Visit [facility] [place] [facility] [address] [place] [phone] Carmen Hartmann 04/25/2025 9:30 AM EST PACE Home Care / P[facility] Home Visit [facility] [place] [facility] [address] [place] [phone] Ralph Loyola 04/25/2025 4:30 PM EST PACE Home Care / [facility] Home Visit [facility] [place] [facility] [address] [place] [phone] Ashley Eastman 04/26/2025 8:30 AM EST PACE Home Care / P[facility] Home Visit [facility] [place] [facility] [address] [place] [phone] Marysol Diaz 04/26/2025 12:00 PM EST PACE Home Care / P[facility] Home Visit [facility] [place] [facility] [address] [place] [phone] Natali Sanford 04/26/2025 5:30 PM EST PACE Home Care / P[facility] Home Visit [facility] [place] [facility] [address] [place] [phone] Marysol Diaz 04/27/2025 8:30 AM EST PACE Home Care / P[facility] Home Visit [facility] [place] [facility] [address] [place] [phone] Marysol Diaz 04/27/2025 12:00 PM EST PACE Home Care / P[facility] Home Visit [facility] [place] [facility] [address] [place] [phone] Natali Sanford 04/27/2025 4:30 PM EST PACE Home Care / P[facility] Home Visit [facility] [place] [facility] [address] [place] [phone] Marysol Diaz 04/27/2025 5:30 PM EST PACE Home Care / PACE Home Visit [facility] [place] [facility] [address] [place] [phone] Marysol Diaz 04/28/2025 8:30 AM EST PACE Home Care / PACE Home Visit [facility] [place] [facility] [address] [place] [phone] Carmen Hartmann 04/28/2025 4:30 PM EST PACE Home Care / P[facility] Home Visit [facility] [place] [facility] [address] [place] [phone] Ashley Eastman 04/29/2025 8:30 AM EST PACE Home Care / PACE Home Visit [facility] [place] [facility] [address] [place] [phone] Carmen Hartmann 04/29/2025 4:30 PM EST PACE Home Care / PACE Home Visit [facility] [place] [facility] [address] [place] [address] Ashley Eastman 04/30/2025 8:30 AM EST PACE Home Care / PACE Home Visit [facility] [place] [facility] [address] [place] [address] Carmen Hartmann 04/30/2025 4:30 PM EST PACE Home Care / PACE Home Visit [facility] [place] [facility] [address] [place] [address] Ashley Eastman 05/01/2025 8:30 AM EST PACE Home Care / P[facility] Visit [facility] [place] [facility] [address] [place] [address] Carmen Hartmann 05/01/2025 9:00 AM EST PACE Attendance[facility] [place] [facility] [address] [place] [address] 05/01/2025 11:30 AM EST [facility] Support [facility] [place] [address] [place] [address] 05/01/2025 4:30 PM EST PACE Home Care / PACE Home Visit [facility] [place] [facility] [address] [place] [address] Ashley Eastman 05/02/2025 8:00 AM EST PACE Home Care / PACE Home Visit [facility] [place] [facility] [address] [place] [address] Carmen Hartmann 05/02/2025 9:30 AM EST PACE Home Care / PACE Home Visit [facility] [place] [facility] [address] [place] [address] Ralph Loyola 05/02/2025 4:30 PM EST PACE Home Care / PACE Home Visit [facility] [place] [facility] [address] [place] [address] Ashley Eastman 05/03/2025 12:00 PM EST PACE Home Care / [facility] Home Visit [facility] [place] [facility] [address] [place] [address] Dena Chavez 05/04/2025 12:00 PM EST PACE Home Care / PACE Home Visit [facility] [place] [facility] [address] [place] [address] Dena Chavez 05/05/2025 8:30 AM EST PACE Home Care / P[facility] Home Visit [facility] [place] [facility] [address] [place] [address] Carmen Hartmann 05/05/2025 4:30 PM EST PACE Home Care / P[facility] Home Visit [facility] [place] [facility] [address] [place] [phone] Ashley Eastman 05/06/2025 8:30 AM EST PACE Home Care / PACE Home Visit [facility] [place] [facility] [address] [place] [address] Carmen Hartmann 05/06/2025 4:30 PM EST PACE Home Care / [facility] Home Visit [facility] [place] [facility] [address] [place] [phone] Ashley Eastman 05/07/2025 8:30 AM EST PACE Home Care / PACE Home Visit [facility] [place] [facility] [address] [place] [address] Carmen Hartmann 05/07/2025 4:30 PM EST PACE Home Care / PACE Home Visit [facility] [place] [facility] [address] [place] [address] Ashley Eastman 05/08/2025 8:30 AM EST PACE Home Care / [facility] Home Visit [facility] [place] [facility] [address] [place] [address] Carmen Hartmann 05/08/2025 9:00 AM EST [facility] [place] [facility] [address] [place] [address] 05/08/2025 4:30 PM EST PACE Home Care / [facility] Visit [facility] [place] [facility] [address] [place] [phone] Ashley Eastman 05/09/2025 8:00 AM EST PACE Home Care / [facility] Home Visit [facility] [place] [facility] [address] [place] [phone] Carmen Hartmann 05/09/2025 9:30 AM EST PACE Home Care / [facility] Visit [facility] [place] [facility] [address] [place] [phone] Ralph Loyola 05/09/2025 4:30 PM EST PACE Home Care / [facility] Visit [facility] [place] [facility] [address] [place] [phone] Ashley Eastman 05/10/2025 8:30 AM EST PACE Home Care / [facility] Visit [facility] [place] [facility] [address] [place] [phone] Marysol Diaz 05/10/2025 12:00 PM EST PACE Home Care / [facility] Visit [facility] [place] [facility] [address] [place] [phone] Natali Sanford 05/10/2025 5:30 PM EST PACE Home Care / [facility] Visit [facility] [place] [facility] [address] [place] [phone] Marysol Diaz 05/11/2025 8:30 AM EST PACE Home Care / [facility] Visit [facility] [place] [facility] [address] [place] [phone] Marysol Diaz 05/11/2025 12:00 PM EST PACE Home Care / [facility] Visit [facility] [place] [facility] [address] [place] [phone] Natali Sanford 05/11/2025 4:30 PM EST PACE Home Care / [facility] Visit [facility] [place] [facility] [address] [place] [phone] Marysol Diaz 05/11/2025 5:30 PM EST PACE Home Care / [facility] Visit [facility] [place] [facility] [address] [place] [phone] Marysol Diaz 05/12/2025 8:30 AM EST PACE Home Care / [facility] Home Visit [facility] [place] [facility] [address] [place] [phone] Carmen Hartmann 05/12/2025 4:30 PM EST PACE Home Care / [facility] Visit [facility] [place] [facility] [address] [place] [phone] Ashley Eastman 05/13/2025 8:30 AM EST PACE Home Care / [facility] Visit [facility] [place] [facility] [address] [place] [phone] Carmen Hartmann 05/13/2025 11:00 AM EST [facility] Visit [facility] [place] [facility] [address] [place] [phone] Regulo Ivy, ALONSO [facility] [address] [address] Brigette East LPN 05/13/2025 4:30 PM EST PACE Home Care / [facility] Home Visit [facility] [place] [facility] [address] [place] [phone] Ashley Eastman 05/14/2025 8:30 AM EST PACE Home Care / [facility] Visit [facility] [place] [facility] [address] [place] [address] Carmen Hartmann 05/14/2025 4:30 PM EST PACE Home Care / [facility] Visit [facility] [place] [facility] [address] [place] [address] Ashley Eastman 05/15/2025 8:30 AM EST PACE Home Care / [facility] Visit [facility] [place] [facility] [address] [place] [address] Carmen Hartmann 05/15/2025 9:00 AM EST [facility] [facility] [place] [facility] [address] [place] [address] 05/15/2025 4:30 PM EST PACE Home Care / [facility] Visit [facility] [place] [facility] [address] [place] [address] Ashley Eastman 05/16/2025 8:00 AM EST PACE Home Care / [facility] Visit [facility] [place] [facility] [address] [place] [address] Carmen Hartmann 05/16/2025 9:30 AM EST PACE Home Care / [facility] Visit [facility] [place] [facility] [address] [place] [address] Ralph Loyola 05/16/2025 4:30 PM EST PACE Home Care / [facility] Visit [facility] [place] [facility] [address] [place] [address] Ashley Eastman 05/17/2025 12:00 PM EST PACE Home Care / [facility] Visit [facility] [place] [facility] [address] [place] [address] Dena Chavez 05/18/2025 12:00 PM EST PACE Home Care / [facility] Visit [facility] [place] [facility] [address] [place] [address] Dena Chavez 05/19/2025 8:30 AM EST PACE Home Care / P[facility] Visit [facility] [place] [facility] [address] [place] [address] Carmen Hartmann 05/19/2025 4:30 PM EST PACE Home Care / [facility] Visit [facility] [place] [facility] [address] [place] [address] Ashley Eastman 05/20/2025 8:30 AM EST PACE Home Care / [facility] Visit [facility] [place] [facility] [address] [place] [address] Carmen Hartmann 05/20/2025 4:30 PM EST PACE Home Care / [facility] Visit [facility] [place] [facility] [address] [place] [address] Ashley Eastman 05/21/2025 8:30 AM EST PACE Home Care / [facility] Visit [facility] [place] [facility] [address] [place] [phone] Carmen Hartmann 05/21/2025 4:30 PM EST PACE Home Care / [facility] Visit [facility] [place] [facility] [address] [place] [phone] Ashley Eastman 05/22/2025 8:30 AM EST PACE Home Care / [facility] Visit [facility] [place] [facility] [address] [place] [phone] Carmen Hartmann 05/22/2025 9:00 AM EST [facility] Att[facility] [place] [facility] [address] [place] [address] 05/22/2025 4:30 PM EST PACE Home Care / [facility] Visit [facility] [place] [facility] [address] [place] [address] Ashley Eastman 05/23/2025 8:00 AM EST PACE Home Care / [facility] Visit [facility] [place] [facility] [address] [place] [phone] Carmen Hartmann 05/23/2025 9:30 AM EST PACE Home Care / [facility] Visit [facility] [place] [facility] [address] [place] [phone] Ralph Loyola 05/23/2025 4:30 PM EST PACE Home Care / [facility] Visit [facility] [place] [facility] [address] [place] [phone] Ashley Eastman 05/24/2025 8:30 AM EST PACE Home Care / [facility] [place] [facility] [address] [place] [phone] Marysol Diaz 05/24/2025 12:00 PM EST PACE Home Care / [facility] Visit [facility] [place] [facility] [address] [place] [phone] Natali Sanford 05/24/2025 5:30 PM EST PACE Home Care / [facility] Visit [facility] [place] [facility] [address] [place] [phone] Marysol Diaz 05/25/2025 8:30 AM EST PACE Home Care / [facility] [place] [facility] [address] [place] [phone] Marysol Diaz 05/25/2025 12:00 PM EST PACE Home Care / [facility] [place] [facility] [address] [place] [phone] Natali Sanford 05/25/2025 4:30 PM EST PACE Home Care / [facility] [place] [facility] [address] [place] [phone] Marysol Diaz 05/25/2025 5:30 PM EST PACE Home Care / [facility] [place] [facility] [address] [place] [phone] Marysol Diaz 05/26/2025 8:30 AM EST PACE Home Care / [facility] [place] [facility] [address] [place] [phone] Carmen Hartmann 05/26/2025 4:30 PM EST PACE Home Care / [facility] [place] [facility] [address] [place] [phone] Ashley Eastman 05/27/2025 8:30 AM EST PACE Home Care / [facility] [place] [facility] [address] [place] [phone] Carmen Hartmann 05/27/2025 4:30 PM EST PACE Home Care / [facility] [place] [facility] [address] [place] [phone] Ashley Eastman 05/28/2025 8:30 AM EST PACE Home Care / [facility] [place] [facility] [address] [place] [phone] Carmen Hartmann 05/28/2025 4:30 PM EST PACE Home Care / [facility] [place] [facility] [address] [place] [phone] Ashley Eastman 05/29/2025 8:30 AM EST PACE Home Care / [facility] [place] [facility] [address] [place] [phone] Carmen Hartmann 05/29/2025 9:00 AM EST [facility] [facility] [place] [facility] [address] [place] [address] 05/29/2025 4:30 PM EST PACE Home Care / [facility] [place] [facility] [address] [place] [phone] Ashley Eastman 05/30/2025 8:00 AM EST PACE Home Care / [facility] [place] [facility] [address] [place] [phone] Carmen Hartmann 05/30/2025 9:30 AM EST PACE Home Care / [facility] [place] [facility] [address] [place] [phone] Ralph Loyola 05/30/2025 4:30 PM EST PACE Home Care / [facility] [place] [facility] [address] [place] [phone] Ashley Eastman 06/05/2025 9:00 AM EST [facility] [facility] [place] [facility] [address] [place] [phone] 06/10/2025 11:00 AM EST [facility] [place] [facility] [address] [place] [phone] Michelle Castillo MD [address] [place] [address] Brigette East LPN 06/12/2025 9:00 AM EST [facility] [facility] [place] [facility] [address] [place] [phone] 06/19/2025 9:00 AM EST [facility] [place] [facility] [place] [facility] [address] [place] [phone] 06/26/2025 9:00 AM EDT [facility] Att[facility] [facility] [place] [facility] [address] [place] [phone] 06/27/2025 1:20 PM EDT Office Visit Gastroenterology - [address] [place] [address] Analisa Perez, ALONSO [address] [place] [id number] 07/03/2025 9:00 AM EDT [facility] Attend[email or web address] [place] [facility] [address] [place] [phone] 07/10/2025 9:00 AM EDT [facility] [place] [facility] [address] [place] [phone] 07/17/2025 9:00 AM EDT [facility] Attendance[facility]Day [facility] [employer] [place] [facility] [address] [place] [phone] 07/17/2025 3:30 PM EDT [facility] External Visit [email or web address] [address] [place] [phone] 07/24/2025 9:00 AM EDT [facility] Attendance[facility] [place] [facility] [address] [place] [phone] 07/31/2025 9:00 AM EDT [facility] Att[facility] [place] [facility] [address] [place] [phone] 08/07/2025 9:00 AM EDT [facility] Att[facility] [place] [facility] [address] [place] [phone] 08/14/2025 9:00 AM EDT [facility] Attendance[facility] [place] [facility] [address] [place] [phone] 08/21/2025 9:00 AM EDT [facility] Att[facility] [place] [facility] [address] [place] [phone] 08/28/2025 9:00 AM EDT [facility] Att[facility] [place] [facility] [address] [place] [phone] 09/04/2025 9:00 AM EDT [facility] Att[facility] [place] [facility] [address] [place] [phone] 09/11/2025 9:00 AM EDT [facility] Attendance[facility] [employer] [place] [facility] [address] [place] [phone] 09/18/2025 9:00 AM EDT [facility] Attend[facility] [employer] [facility] [place] [facility] [address] [place] [phone] 09/25/2025 9:00 AM EDT [facility] Attend[facility] [employer] [facility] [place] [facility] [address] [place] [phone] 10/02/2025 9:00 AM EDT [facility] Attend[facility] [employer] [facility] [place] [facility] [address] [place] [phone] 10/09/2025 9:00 AM EDT [facility] Att[facility] [employer] [place] [facility] [address] [place] [phone] documented as of this encounter Visit Diagnoses Not on filedocumented in this encounter Care Teams Teacher Dancing Relationship Specialty Start Date End Date Regulo Ivy NP [address] [place] [id number] PCP - General [facility] 06/07/24 documented as of this encounter
--- OUTSIDE RECORDS SUMMARY | 2025-03-28 08:00 | XMS_ITS | Encounter Summary ---
Author Organization [facility] Address [address] [place] [address] Care Team Providers Care Jigger Machine Operator Name Role Phone Regulo Ivy NP Primary Care Provider [phone] Encounter Details Date Type Department Care Team (Late st Contact Info) Description 03/28/2025 8:00 AM EST PACE Home Care / PACE Home Visit [facility] [address] [place] [address] Carmen Hartmann Social History Tobacco [...] your loved ones. For example, child welfare social worker or elderly care for an older [...] [place] [facility] [address] [place] [phone] Carmen Hartmann 04/02/2025 4:30 PM EST PACE Home Care / P[facility] Home Visit [facility] [place] [facility] [address] [place] [phone] Ashley Eastman 04/03/2025 8:30 AM EST PACE Home Care / P[facility] Home Visit [facility] [place] [facility] [address] [place] [phone] Carmen Hartmann 04/03/2025 9:00 AM EST [facility] Attendance[facility] [place] [facility] [address] [place] [address] 04/03/2025 4:30 PM EST PACE Home Care / P[facility] Home Visit [facility] [place] [facility] [address] [place] [phone] Ashley Eastman 04/04/2025 [facility] [place] [facility] [address] [place] [address] Regulo Ivy, ALONSO [address] [address] Constipation, unspecified constipation type 04/04/2025 8:00 AM EST PACE Home Care / [facility] Home Visit [facility] [place] [facility] [address] [place] [phone] Titi Thomas 04/04/2025 8:30 AM EST PACE Home Care / [facility] Home Visit [facility] [place] [facility] [address] [place] [phone] Marysol Diaz 04/04/2025 4:30 PM EST PACE Home Care / P[facility] Home Visit [facility] [place] [facility] [address] [place] [phone] Ashley Eastman 04/05/2025 12:00 PM EST PACE Home Care / P[facility] Home Visit [facility] [place] [facility] [address] [place] [phone] Dena Chavez 04/06/2025 12:00 PM EST PACE Home Care / P[facility] Home Visit [facility] [place] [facility] [address] [place] [phone] Dena Chavez 2025 8:30 AM EST PACE Home Care / P[facility] Home Visit [facility] [place] [facility] [address] [place] [phone] Carmen Hartmann 2025 4:30 PM EST PACE Home Care / [facility] Visit [facility] [place] [facility] [address] [place] [address] Ashley Eastman 04/08/2025 8:30 AM EST PACE Home Care / [facility] Visit [facility] [place] [facility] [address] [place] [address] Carmen Hartmann 04/08/2025 4:30 PM EST PACE Home Care / [facility] Home Visit [facility] [place] [facility] [address] [place] [phone] Ahsley Eastman 04/09/2025 8:30 AM EST PACE Home Care / [facility] Home Visit [facility] [place] [facility] [address] [place] [phone] Carmen Hartmann 04/09/2025 4:30 PM EST PACE Home Care / [facility] Home Visit [facility] [place] [facility] [address] [place] [phone] Ashley Eastman 04/10/2025 6:05 AM EST PACE Home Care / [facility] Visit [facility] [place] [facility] [address] [place] [phone] Jackeline Mcrae 04/10/2025 9:00 AM EST [facility] [place] [facility] [address] [place] [address] 04/10/2025 4:30 PM EST PACE Home Care / [facility] [place] [facility] [address] [place] [phone] Ashley Eastman 04/11/2025 8:00 AM EST PACE Home Care / [facility] Home Visit [facility] [place] [facility] [address] [place] [phone] Carmen Hartmann 04/11/2025 9:30 AM EST PACE Home Care / [facility] Home Visit [facility] [place] [facility] [address] [place] [address] Carmen Hartmann 04/11/2025 4:30 PM EST PACE Home Care / [facility] Home Visit [facility] [place] [facility] [address] [place] [address] Ashley Eastman 04/12/2025 8:30 AM EST PACE Home Care / [facility] Home Visit [facility] [place] [facility] [address] [place] [address] Marysol Diaz 04/12/2025 12:00 PM EST PACE Home Care / [facility] Home Visit [facility] [place] [facility] [address] [place] [address] Natali Sanford 04/12/2025 5:30 PM EST PACE Home Care / [facility] Home Visit [facility] [place] [facility] [address] [place] [address] Marysol Diaz 04/13/2025 8:30 AM EST PACE Home Care / [facility] Home Visit [facility] [place] [facility] [address] [place] [address] Marysol Diaz 04/13/2025 12:00 PM EST PACE Home Care / [facility] Home Visit [facility] [place] [facility] [address] [place] [address] Natali Sanford 04/13/2025 4:30 PM EST PACE Home Care / [facility] Home Visit [facility] [place] [facility] [address] [place] [phone] Marysol Diaz 04/13/2025 5:30 PM EST PACE Home Care / [facility] Home Visit [facility] [place] [facility] [address] [place] [phone] Marysol Diaz 04/14/2025 8:30 AM EST PACE Home Care / [facility] Home Visit [facility] [place] [facility] [address] [place] [address] Carmen Hartmann 04/14/2025 4:30 PM EST PACE Home Care / [facility] [place] [facility] [address] [place] [address] Ashley Eastman 04/15/2025 8:30 AM EST PACE Home Care / [facility] Home Visit [facility] [place] [facility] [address] [place] [address] Carmen Hartmann 04/15/2025 11:00 AM EST [facility] Visit [facility] [place] [facility] [address] [place] [address] Regulo Ivy, ALONSO [address] [place] [address] Brigette East LPN 04/15/2025 4:30 PM EST PACE Home Care / [facility] [place] [facility] [address] [place] [phone] Ashley Eastman 04/16/2025 8:30 AM EST PACE Home Care / [facility] [place] [facility] [address] [place] [phone] Carmen Hartmann 04/16/2025 4:30 PM EST PACE Home Care / PACE Home Visit [facility] [place] [facility] [address] [place] [phone] Ashley Eastman 04/17/2025 8:30 AM EST PACE Home Care / [facility] Home Visit [facility] [place] [facility] [address] [place] [phone] Carmen Hartmann 04/17/2025 9:00 AM EST [facility] Att[facility] [place] [facility] [address] [place] [address] 04/17/2025 4:30 PM EST PACE Home Care / [facility] Visit [facility] [place] [facility] [address] [place] [phone] Ashley Eastman 04/18/2025 8:00 AM EST PACE Home Care / [facility] Visit [facility] [place] [facility] [address] [place] [phone] Carmen Hartmann 04/18/2025 4:30 PM EST PACE Home Care / [facility] Home Visit [facility] [place] [facility] [address] [place] [phone] Ashley Eastman 04/19/2025 12:00 PM EST PACE Home Care / [facility] Visit [facility] [place] [facility] [address] [place] [phone] Dena Chavez 04/20/2025 12:00 PM EST PACE Home Care / [facility] Visit [facility] [place] [facility] [address] [place] [phone] Dena Chavez 04/21/2025 8:30 AM EST PACE Home Care / [facility] Home Visit [facility] [place] [facility] [address] [place] [phone] Carmen Hartmann 04/21/2025 4:30 PM EST PACE Home Care / [facility] Home Visit [facility] [place] [facility] [address] [place] [phone] Ashley Eastman 04/22/2025 8:30 AM EST PACE Home Care / [facility] [place] [facility] [address] [place] [phone] Carmen Hartmann 04/22/2025 4:30 PM EST PACE Home Care / [facility] Home Visit [facility] [place] [facility] [address] [place] [phone] Ashley Eastman 04/23/2025 8:30 AM EST PACE Home Care / [facility] Home Visit [facility] [place] [facility] [address] [place] [address] Carmen Hartmann 04/23/2025 4:30 PM EST PACE Home Care / [facility] Home Visit [facility] [place] [facility] [address] [place] [phone] Ashley Eastman 04/24/2025 8:30 AM EST PACE Home Care / [facility] Visit [facility] [place] [facility] [address] [place] [address] Carmen Hartmann 04/24/2025 9:00 AM EST [facility] [place] [facility] [address] [place] [phone] 04/24/2025 4:30 PM EST PACE Home Care / [facility] Visit [facility] [place] [facility] [address] [place] [phone] Ashley Eastman 04/25/2025 8:00 AM EST PACE Home Care / [facility] Home Visit [facility] [place] [facility] [address] [place] [phone] Carmen Hartmann 04/25/2025 9:30 AM EST PACE Home Care / [facility] Home Visit [facility] [place] [facility] [address] [place] [phone] Ralph Loyola 04/25/2025 4:30 PM EST PACE Home Care / [facility] Home Visit [facility] [place] [facility] [address] [place] [phone] Ashley Eastman 04/26/2025 8:30 AM EST PACE Home Care / [facility] [place] [facility] [address] [place] [phone] Marysol Diaz 04/26/2025 12:00 PM EST PACE Home Care / [facility] [place] [facility] [address] [place] [phone] Natali Sanford 04/26/2025 5:30 PM EST PACE Home Care / [facility] [place] [facility] [address] [place] [phone] Marysol Diaz 04/27/2025 8:30 AM EST PACE Home Care / [facility] Home Visit [facility] [place] [facility] [address] [place] [phone] Marysol Diaz 04/27/2025 12:00 PM EST PACE Home Care / [facility] Home Visit [facility] [place] [facility] [address] [place] [phone] Natali Sanford 04/27/2025 4:30 PM EST PACE Home Care / [facility] Home Visit [facility] [place] [facility] [address] [place] [phone] Marysol Diaz 04/27/2025 5:30 PM EST PACE Home Care / [facility] Visit [facility] [place] [facility] [address] [place] [phone] Marysol Diaz 04/28/2025 8:30 AM EST PACE Home Care / [facility] Visit [facility] [place] [facility] [address] [place] [phone] Carmen Hartmann 04/28/2025 4:30 PM EST PACE Home Care / [facility] Visit [facility] [place] [facility] [address] [place] [phone] Ashley Eastman 04/29/2025 8:30 AM EST PACE Home Care / [facility] Visit [facility] [place] [facility] [address] [place] [phone] Carmen Hartmann 04/29/2025 4:30 PM EST PACE Home Care / PACE Home Visit [facility] [place] [facility] [address] [place] [address] Ashley Eastman 04/30/2025 8:30 AM EST PACE Home Care / PACE Home Visit [facility] [place] [facility] [address] [place] [address] Carmen Hartmann 04/30/2025 4:30 PM EST PACE Home Care / P[facility] Home Visit [facility] [place] [facility] [address] [place] [address] Ashley Eastman 05/01/2025 8:30 AM EST PACE Home Care / [facility] [place] [facility] [address] [place] [address] Carmen Hartmann 05/01/2025 9:00 AM EST [facility] Attendance[facility] [place] [facility] [address] [place] [address] 05/01/2025 11:30 AM EST [facility] [place] [address] [place] [address] 05/01/2025 4:30 PM EST PACE Home Care / P[facility] [place] [facility] [address] [place] [address] Ashley Eastman 05/02/2025 8:00 AM EST PACE Home Care / [facility] Home Visit [facility] [place] [facility] [address] [place] [address] Carmen Hartmann 05/02/2025 9:30 AM EST PACE Home Care / P[facility] Home Visit [facility] [place] [facility] [address] [place] [address] Ralph Loyola 05/02/2025 4:30 PM EST PACE Home Care / P[facility] Home Visit [facility] [place] [facility] [address] [place] [address] Ashley Eastman 05/03/2025 12:00 PM EST PACE Home Care / [facility] Visit [facility] [place] [facility] [address] [place] [address] Dena Chavez 05/04/2025 12:00 PM EST PACE Home Care / [facility] Visit [facility] [place] [facility] [address] [place] [address] Dena Chavez 05/05/2025 8:30 AM EST PACE Home Care / [facility] Visit [facility] [place] [facility] [address] [place] [address] Carmen Hartmann 05/05/2025 4:30 PM EST PACE Home Care / [facility] [place] [facility] [address] [place] [phone] Ashley Eastman 05/06/2025 8:30 AM EST PACE Home Care / [facility] [place] [facility] [address] [place] [address] Carmen Hartmann 05/06/2025 4:30 PM EST PACE Home Care / [facility] [place] [facility] [address] [place] [phone] Ashley Eastman 05/07/2025 8:30 AM EST PACE Home Care / [facility] [place] [facility] [address] [place] [address] Carmen Hartmann 05/07/2025 4:30 PM EST PACE Home Care / [facility] Visit [facility] [address] [place] [address] Ashley Eastman 05/08/2025 8:30 AM EST PACE Home Care / [facility] [place] [facility] [address] [place] [address] Carmen Hartmann 05/08/2025 9:00 AM EST [facility] [place] [facility] [address] [place] [address] 05/08/2025 4:30 PM EST PACE Home Care / [facility] [place] [facility] [address] [place] [phone] Ashley Eastman 05/09/2025 8:00 AM EST PACE Home Care / [facility] [place] [facility] [address] [place] [phone] Carmen Hartmann 05/09/2025 9:30 AM EST PACE Home Care / [facility] [place] [facility] [address] [place] [phone] Ralph Loyola 05/09/2025 4:30 PM EST PACE Home Care / [facility] [place] [facility] [address] [place] [phone] Ashley Eastman 05/10/2025 8:30 AM EST PACE Home Care / [facility] [place] [facility] [address] [place] [phone] Marysol Diaz 05/10/2025 12:00 PM EST PACE Home Care / [facility] [place] [facility] [address] [place] [phone] Natali Sanford 05/10/2025 5:30 PM EST PACE Home Care / [facility] [place] [facility] [address] [place] [phone] Marysol Diaz 05/11/2025 8:30 AM EST PACE Home Care / [facility] [place] [facility] [address] [place] [phone] Marysol Diaz 05/11/2025 12:00 PM EST PACE Home Care / [facility] [place] [facility] [address] [place] [phone] Natali Sanford 05/11/2025 4:30 PM EST PACE Home Care / [facility] [place] [facility] [address] [place] [phone] Marysol Diaz 05/11/2025 5:30 PM EST PACE Home Care / [facility] [place] [facility] [address] [place] [phone] Marysol Diaz 05/12/2025 8:30 AM EST PACE Home Care / [facility] [place] [facility] [address] [place] [phone] Carmen Hartmann 05/12/2025 4:30 PM EST PACE Home Care / [facility] [place] [facility] [address] [place] [phone] Ashley Eastman 05/13/2025 8:30 AM EST PACE Home Care / [facility] [place] [facility] [address] [place] [phone] Carmen Hartmann 05/13/2025 11:00 AM EST [facility] Visit [facility] [place] [facility] [address] [place] [phone] Regulo Ivy, ALONSO [facility] [address] [address] Brigette East LPN 05/13/2025 4:30 PM EST PACE Home Care / [facility] [place] [facility] [address] [place] [phone] Ashley Eastman 05/14/2025 8:30 AM EST PACE Home Care / [facility] Visit [facility] [place] [facility] [address] [place] [address] Carmen Hartmann 05/14/2025 4:30 PM EST PACE Home Care / [facility] [place] [facility] [address] [place] [address] Ashley Eastman 05/15/2025 8:30 AM EST PACE Home Care / [facility] [place] [facility] [address] [place] [address] Carmen Hartmann 05/15/2025 9:00 AM EST [facility] [facility] [place] [facility] [address] [place] [address] 05/15/2025 4:30 PM EST PACE Home Care / [facility] [place] [facility] [address] [place] [address] Ashley Eastman 05/16/2025 8:00 AM EST PACE Home Care / [facility] [place] [facility] [address] [place] [address] Carmen Hartmann 05/16/2025 9:30 AM EST PACE Home Care / [facility] [place] [facility] [address] [place] [address] Ralph Loyola 05/16/2025 4:30 PM EST PACE Home Care / [facility] [place] [facility] [address] [place] [address] Ashley Eastman 05/17/2025 12:00 PM EST PACE Home Care / [facility] [place] [facility] [address] [place] [address] Dena Chavez 05/18/2025 12:00 PM EST PACE Home Care / [facility] [place] [facility] [address] [place] [address] Dena Chavez 05/19/2025 8:30 AM EST PACE Home Care / [facility] [place] [facility] [address] [place] [address] Carmen Hartmann 05/19/2025 4:30 PM EST PACE Home Care / [facility] [place] [facility] [address] [place] [address] Ashley Eastman 05/20/2025 8:30 AM EST PACE Home Care / [facility] [place] [facility] [address] [place] [address] Carmen Hartmann 05/20/2025 4:30 PM EST PACE Home Care / [facility] Visit [facility] [place] [facility] [address] [place] [address] Ashley Eastman 05/21/2025 8:30 AM EST PACE Home Care / [facility] [place] [facility] [address] [place] [phone] Carmen Hartmann 05/21/2025 4:30 PM EST PACE Home Care / [facility] Visit [facility] [place] [facility] [address] [place] [phone] Ashley Eastman 05/22/2025 8:30 AM EST PACE Home Care / [facility] Visit [facility] [place] [facility] [address] [place] [phone] Carmen Hartmann 05/22/2025 9:00 AM EST [facility] Att[facility] [place] [facility] [address] [place] [address] 05/22/2025 4:30 PM EST PACE Home Care / [facility] Visit [facility] [place] [facility] [address] [place] [address] Ashley Eastman 05/23/2025 8:00 AM EST PACE Home Care / [facility] [place] [facility] [address] [place] [phone] Carmen Hartmann 05/23/2025 9:30 AM EST PACE Home Care / [facility] [place] [facility] [address] [place] [phone] Ralph Loyola 05/23/2025 4:30 PM EST PACE Home Care / [facility] [place] [facility] [address] [place] [phone] Ashley Eastman 05/24/2025 8:30 AM EST P[facility] Home Care / [facility] [place] [facility] [address] [place] [phone] Marysol Diaz 05/24/2025 12:00 PM EST PACE Home Care / [facility] [place] [facility] [address] [place] [phone] Natali Sanford 05/24/2025 5:30 PM EST PACE Home Care / [facility] [place] [facility] [address] [place] [phone] Marysol Diaz 05/25/2025 8:30 AM EST PACE Home Care / [facility] [place] [facility] [address] [place] [phone] Marysol Diaz 05/25/2025 12:00 PM EST PACE Home Care / [facility] [place] [facility] [address] [place] [phone] Natali Sanford 05/25/2025 4:30 PM EST P[facility] Home Care / [facility] [place] [facility] [address] [place] [phone] Marysol Diaz 05/25/2025 5:30 PM EST PACE Home Care / [facility] [place] [facility] [address] [place] [phone] Marysol Diaz 05/26/2025 8:30 AM EST P[facility] Home Care / [facility] [place] [facility] [address] [place] [phone] Carmen Hartmann 05/26/2025 4:30 PM EST P[facility] Home Care / [facility] [place] [facility] [address] [place] [phone] Ashley Eastman 05/27/2025 8:30 AM EST P[facility] Home Care / [facility] [place] [facility] [address] [place] [phone] Carmen Hartmann 05/27/2025 4:30 PM EST P[facility] Home Care / [facility] [place] [facility] [address] [place] [phone] Ashley Eastman 05/28/2025 8:30 AM EST P[facility] Home Care / [facility] [place] [facility] [address] [place] [phone] Carmen Hartmann 05/28/2025 4:30 PM EST P[facility] Home Care / [facility] [place] [facility] [address] [place] [phone] Ashley Eastman 05/29/2025 8:30 AM EST P[facility] Home Care / [facility] [place] [facility] [address] [place] [phone] Carmen Hartmann 05/29/2025 9:00 AM EST [facility] [facility] [place] [facility] [address] [place] [address] 05/29/2025 4:30 PM EST PACE Home Care / [facility] [place] [facility] [address] [place] [phone] Ashley Eastman 05/30/2025 8:00 AM EST P[facility] Home [facility] / [facility] [place] [facility] [address] [place] [phone] Carmen Hartmann 05/30/2025 9:30 AM EST P[facility] Home [facility] / [facility] [place] [facility] [address] [place] [phone] Ralph Loyola 05/30/2025 4:30 PM EST P[facility] Home Care / [facility] [place] [facility] [address] [place] [phone] Ashley Eastman 06/05/2025 9:00 AM EST [facility] [facility] [place] [facility] [address] [place] [phone] 06/10/2025 11:00 AM EST [facility] [place] [facility] [address] [place] [phone] Michelle Castillo MD [address] [place] [phone] Brigette East LPN 06/12/2025 9:00 AM EST [facility] [place] [facility] [address] [place] [phone] 06/19/2025 9:00 AM EST [facility] [facility] [place] [facility] [address] [place] [phone] 06/26/2025 9:00 AM EDT [facility] [facility] [place] [facility] [facility] [address] [place] [phone] 06/27/2025 1:20 PM EDT Office Visit Gastroenterology - [address] [place] [phone] Analisa Perez, ALONSO [address] [place] [address] 07/03/2025 9:00 AM EDT P[facility] Attendance/[facility] [place] [facility] [place] [facility] [address] [place] [phone] 07/10/2025 9:00 AM EDT PACE Attendance/[place] [facility] [place] [facility] [address] [place] [phone] 07/17/2025 9:00 AM EDT PACE Attendance/[facility] Center [facility] [employer] [facility] [place] [facility] [address] [place] [phone] 07/17/2025 3:30 PM EDT PACE External Visit [facility] [address] [place] [phone] 07/24/2025 9:00 AM EDT PACE Attendance/[facility] [place] [facility] [address] [place] [phone] 07/31/2025 9:00 AM EDT PACE Attendance/[facility] [place] [facility] [address] [place] [phone] 08/07/2025 9:00 AM EDT PACE Attendance/[facility] [place] [facility] [address] [place] [phone] 08/14/2025 9:00 AM EDT PACE Attendance/[facility] [place] [facility] [address] [place] [phone] 08/21/2025 9:00 AM EDT PACE Attendance/[facility] [place] [facility] [address] [place] [phone] 08/28/2025 9:00 AM EDT PACE Attendance/[facility] [place] [facility] [address] [place] [phone] 09/04/2025 9:00 AM EDT PACE Attendance/[facility] [place] [facility] [address] [place] [phone] 09/11/2025 9:00 AM EDT PACE Attendance/[facility] [employer] [place] [facility] [address] [place] [phone] 09/18/2025 9:00 AM EDT PACE Attendance/[facility] [employer] [facility] [place] [facility] [address] [place] [phone] 09/25/2025 9:00 AM EDT PACE Attendance/[facility] [employer] [facility] [place] [facility] [address] [place] [phone] 10/02/2025 9:00 AM EDT PACE Attendance/[facility] [employer] [facility] [place] [facility] [address] [place] [phone] 10/09/2025 9:00 AM EDT PACE Attendance/[facility] [employer] [place] [facility] [address] [place] [phone] documented as of this encounter Visit Diagnoses Not on filedocumented in this encounter Care Teams Jigger Machine Operator Relationship Specialty Start Date End Date Regulo Ivy NP [address] [place] [id number] PCP - General PACE 06/07/24 documented as of this encounter
--- OUTSIDE RECORDS SUMMARY | 2025-03-28 10:00 | XMS_ITS | Encounter Summary ---
Author Organization [facility] Address [address] [place] [address] Care Team Providers Care Hosting Engineer Name Role Phone Regulo Ivy NP Primary Care Provider [phone] Encounter Details Date Type Department Care Team (Late st Contact Info) Description 03/28/2025 10:00 AM EST PACE Home Care / PACE Home Visit [facility] [address] [place] [address] Carmen Hartmann Social History Tobacco [...] for your loved ones. For example, childcare center director or elderly care for an older [...] [place] [facility] [address] [place] [phone] Carmen Hartmann 04/02/2025 4:30 PM EST PACE Home Care / P[facility] Home Visit [facility] [place] [facility] [address] [place] [phone] Ashley Eastman 04/03/2025 8:30 AM EST PACE Home Care / P[facility] Home Visit [facility] [place] [facility] [address] [place] [phone] Carmen Hartmann 04/03/2025 9:00 AM EST PACE Attendance/[facility] [place] [facility] [address] [place] [address] 04/03/2025 4:30 PM EST PACE Home Care / P[facility] Home Visit [facility] [place] [facility] [address] [place] [phone] Ashley Eastman 04/04/2025 [facility] [place] [facility] [address] [place] [address] Regulo Ivy, ALONSO [address] [address] Constipation, unspecified constipation type 04/04/2025 8:00 AM EST PACE Home Care / P[facility] Home Visit [facility] [place] [facility] [address] [place] [phone] Titi Thomas 04/04/2025 8:30 AM EST PACE Home Care / P[facility] Home Visit [facility] [place] [facility] [address] [place] [phone] Marysol Diaz 04/04/2025 4:30 PM EST PACE Home Care / P[facility] Home Visit [facility] [place] [facility] [address] [place] [phone] Ashley Eastman 04/05/2025 12:00 PM EST PACE Home Care / P[facility] Home Visit [facility] [place] [facility] [address] [place] [phone] Dena Chavez 04/06/2025 12:00 PM EST PACE Home Care / PACE Home Visit [facility] [place] [facility] [address] [place] [phone] Dena Chavez 2025 8:30 AM EST PACE Home Care / P[facility] Home Visit [facility] [place] [facility] [address] [place] [phone] Carmen Hartmann 2025 4:30 PM EST PACE Home Care / [facility] [place] [facility] [address] [place] [address] Ashley Eastman 04/08/2025 8:30 AM EST PACE Home Care / [facility] Home Visit [facility] [place] [facility] [address] [place] [address] Carmen Hartmann 04/08/2025 4:30 PM EST PACE Home Care / [facility] Visit [facility] [place] [facility] [address] [place] [phone] Ashley Eastman 04/09/2025 8:30 AM EST PACE Home Care / [place] Home Visit [facility] [place] [facility] [address] [place] [phone] Carmen Hartmann 04/09/2025 4:30 PM EST PACE Home Care / [facility] [facility] Visit [facility] [place] [facility] [address] [place] [phone] Ashley Eastman 04/10/2025 6:05 AM EST PACE Home Care / [facility] [place] [facility] [address] [place] [phone] Jackeline Mcrae 04/10/2025 9:00 AM EST [facility] [facility] [place] [facility] [address] [place] [address] 04/10/2025 4:30 PM EST PACE Home Care / [place] [facility] Visit [facility] [place] [facility] [address] [place] [phone] Ashley Eastman 04/11/2025 8:00 AM EST PACE Home Care / [place] Home Visit [facility] [place] [facility] [address] [place] [phone] Carmen Hartmann 04/11/2025 9:30 AM EST PACE Home Care / [facility] Home Visit [facility] [place] [facility] [address] [place] [address] Carmen Hartmann 04/11/2025 4:30 PM EST PACE Home Care / [place] Home Visit [facility] [place] [facility] [address] [place] [address] Ashley Eastman 04/12/2025 8:30 AM EST PACE Home Care / [place] Home Visit [facility] [place] [facility] [address] [place] [address] Marysol Diaz 04/12/2025 12:00 PM EST PACE Home Care / [facility] Home Visit [facility] [place] [facility] [address] [place] [address] Natali Sanford 04/12/2025 5:30 PM EST PACE Home Care / [facility] Home Visit [facility] [place] [facility] [address] [place] [address] Marysol Diaz 04/13/2025 8:30 AM EST PACE Home Care / [place] Home Visit [facility] [place] [facility] [address] [place] [address] Marysol Diaz 04/13/2025 12:00 PM EST PACE Home Care / [facility] Home Visit [facility] [place] [facility] [address] [place] [address] Natali Sanford 04/13/2025 4:30 PM EST PACE Home Care / [place] Home Visit [facility] [place] [facility] [address] [place] [phone] Marysol Diaz 04/13/2025 5:30 PM EST PACE Home Care / [facility] Home Visit [facility] [place] [facility] [address] [place] [phone] Marysol Diaz 04/14/2025 8:30 AM EST PACE Home Care / [place] Home Visit [facility] [place] [facility] [address] [place] [address] Carmen Hartmann 04/14/2025 4:30 PM EST PACE Home Care / [facility] Visit [facility] [place] [facility] [address] [place] [address] Ashley Eastman 04/15/2025 8:30 AM EST PACE Home Care / [facility] [facility] Visit [facility] [place] [facility] [address] [place] [address] Carmen Hartmann 04/15/2025 11:00 AM EST [facility] Visit [facility] [place] [facility] [address] [place] [address] Regulo Ivy, ALONSO [address] [place] [address] Brigette East LPN 04/15/2025 4:30 PM EST PACE Home Care / [facility] [facility] Visit [facility] [place] [facility] [address] [place] [phone] Ashley Eastman 04/16/2025 8:30 AM EST PACE Home Care / [place] [facility] Visit [facility] [place] [facility] [address] [place] [phone] Carmen Hartmann 04/16/2025 4:30 PM EST PACE Home Care / [facility] Home Visit [facility] [place] [facility] [address] [place] [phone] Ashley Eastman 04/17/2025 8:30 AM EST PACE Home Care / [place] Home Visit [facility] [place] [facility] [address] [place] [phone] Carmen Hartmann 04/17/2025 9:00 AM EST [facility] Att[facility] [place] [facility] [address] [place] [address] 04/17/2025 4:30 PM EST PACE Home Care / [place] [facility] Visit [facility] [place] [facility] [address] [place] [phone] Ashley Eastman 04/18/2025 8:00 AM EST PACE Home Care / [facility] Home Visit [facility] [place] [facility] [address] [place] [phone] Carmen Hartmann 04/18/2025 4:30 PM EST PACE Home Care / [place] [facility] Visit [facility] [place] [facility] [address] [place] [phone] Ashley Eastman 04/19/2025 12:00 PM EST PACE Home Care / [place] [facility] Visit [facility] [place] [facility] [address] [place] [phone] Dena Chavez 04/20/2025 12:00 PM EST PACE Home Care / [facility] [facility] Visit [facility] [place] [facility] [address] [place] [phone] Dena Chavez 04/21/2025 8:30 AM EST PACE Home Care / [place] [facility] Visit [facility] [place] [facility] [address] [place] [phone] Carmen Hartmann 04/21/2025 4:30 PM EST PACE Home Care / [place] [facility] Visit [facility] [place] [facility] [address] [place] [phone] Ashley Eastman 04/22/2025 8:30 AM EST PACE Home Care / [place] [facility] [place] [facility] [address] [place] [phone] Carmen Hartmann 04/22/2025 4:30 PM EST PACE Home Care / [place] [facility] Visit [facility] [place] [facility] [address] [place] [phone] Ashley Eastman 04/23/2025 8:30 AM EST PACE Home Care / [place] [facility] Visit [facility] [place] [facility] [address] [place] [address] Carmen Hartmann 04/23/2025 4:30 PM EST PACE Home Care / [place] [facility] [place] [facility] [address] [place] [phone] Ashley Eastman 04/24/2025 8:30 AM EST PACE Home Care / [place] [facility] Visit [facility] [place] [facility] [address] [place] [address] Carmen Hartmann 04/24/2025 9:00 AM EST [facility] [place] [facility] [address] [place] [phone] 04/24/2025 4:30 PM EST PACE Home Care / [place] [facility] [place] [facility] [address] [place] [phone] Ashley Eastman 04/25/2025 8:00 AM EST PACE Home Care / [place] [facility] [place] [facility] [address] [place] [phone] Carmen Hartmann 04/25/2025 9:30 AM EST PACE Home Care / [place] [facility] [place] [facility] [address] [place] [phone] Ralph Loyola 04/25/2025 4:30 PM EST PACE Home Care / [place] [facility] Visit [facility] [place] [facility] [address] [place] [phone] Ashley Eastman 04/26/2025 8:30 AM EST PACE Home Care / [place] [facility] [place] [facility] [address] [place] [phone] Marysol Diaz 04/26/2025 12:00 PM EST PACE Home Care / [place] [facility] [place] [facility] [address] [place] [phone] Natali Sanford 04/26/2025 5:30 PM EST PACE Home Care / [place] [facility] [place] [facility] [address] [place] [phone] Marysol Diaz 04/27/2025 8:30 AM EST PACE Home Care / [place] [facility] [place] [facility] [address] [place] [phone] Marysol Diaz 04/27/2025 12:00 PM EST PACE Home Care / [place] [facility] [place] [facility] [address] [place] [phone] Natali Sanford 04/27/2025 4:30 PM EST PACE Home Care / [place] [facility] [place] [facility] [address] [place] [phone] Marysol Diaz 04/27/2025 5:30 PM EST PACE Home Care / [facility] [facility] [place] [facility] [address] [place] [phone] Marysol Diaz 04/28/2025 8:30 AM EST PACE Home Care / [place] [facility] [place] [facility] [address] [place] [phone] Carmen Hartmann 04/28/2025 4:30 PM EST PACE Home Care / [place] [facility] [place] [facility] [address] [place] [phone] Ashley Eastman 04/29/2025 8:30 AM EST PACE Home Care / [place] [facility] Visit [facility] [place] [facility] [address] [place] [phone] Carmen Hartmann 04/29/2025 4:30 PM EST PACE Home Care / [facility] Visit [facility] [place] [facility] [address] [place] [address] Ashley Eastman 04/30/2025 8:30 AM EST PACE Home Care / P[place] Home Visit [facility] [place] [facility] [address] [place] [address] Carmen Hartmann 04/30/2025 4:30 PM EST PACE Home Care / P[place] Home Visit [facility] [place] [facility] [address] [place] [address] Ashley Eastman 05/01/2025 8:30 AM EST PACE Home Care / [facility] [place] [facility] [address] [place] [address] Carmen Hartmann 05/01/2025 9:00 AM EST PACE Attendance[facility] [place] [facility] [address] [place] [address] 05/01/2025 11:30 AM EST [facility] Support [facility] [place] [address] [place] [address] 05/01/2025 4:30 PM EST PACE Home Care / [facility] [place] [facility] [address] [place] [address] Ashley Eastman 05/02/2025 8:00 AM EST PACE Home Care / P[place] Home Visit [facility] [place] [facility] [address] [place] [address] Carmen Hartmann 05/02/2025 9:30 AM EST PACE Home Care / [facility] Visit [facility] [place] [facility] [address] [place] [address] Ralph Loyola 05/02/2025 4:30 PM EST PACE Home Care / [facility] Visit [facility] [place] [facility] [address] [place] [address] Ashley Eastman 05/03/2025 12:00 PM EST PACE Home Care / [facility] Visit [facility] [place] [facility] [address] [place] [address] Dena Chavez 05/04/2025 12:00 PM EST PACE Home Care / [facility] [facility] Visit [facility] [place] [facility] [address] [place] [address] Dena Chavez 05/05/2025 8:30 AM EST PACE Home Care / [facility] [place] [facility] [address] [place] [address] Carmen Hartmann 05/05/2025 4:30 PM EST PACE Home Care / [place] [facility] [place] [facility] [address] [place] [phone] Ashley Eastman 05/06/2025 8:30 AM EST PACE Home Care / [facility] [facility] [place] [facility] [address] [place] [address] Carmen Hartmann 05/06/2025 4:30 PM EST PACE Home Care / [facility] [facility] [place] [facility] [address] [place] [phone] Ashley Eastman 05/07/2025 8:30 AM EST PACE Home Care / [facility] [place] [facility] [address] [place] [address] Carmen Hartmann 05/07/2025 4:30 PM EST PACE Home Care / [facility] Visit [facility] [place] [facility] [address] [place] [address] Ashley Eastman 05/08/2025 8:30 AM EST PACE Home Care / [facility] [facility] [place] [facility] [address] [place] [address] Carmen Hartmann 05/08/2025 9:00 AM EST [facility] [place] [facility] [address] [place] [address] 05/08/2025 4:30 PM EST PACE Home Care / [place] [facility] [place] [facility] [address] [place] [phone] Ashley Eastman 05/09/2025 8:00 AM EST PACE Home Care / [facility] [facility] [place] [facility] [address] [place] [phone] Carmen Hartmann 05/09/2025 9:30 AM EST PACE Home Care / [facility] [facility] [place] [facility] [address] [place] [phone] Ralph Loyola 05/09/2025 4:30 PM EST PACE Home Care / [facility] [place] [facility] [address] [place] [phone] Ashley Eastman 05/10/2025 8:30 AM EST PACE Home Care / [facility] [place] [facility] [address] [place] [phone] Marysol Diaz 05/10/2025 12:00 PM EST PACE Home Care / [facility] [place] [facility] [address] [place] [phone] Natali Sanford 05/10/2025 5:30 PM EST PACE Home Care / [facility] [place] [facility] [address] [place] [phone] Marysol Diaz 05/11/2025 8:30 AM EST PACE Home Care / [facility] [place] [facility] [address] [place] [phone] Marysol Diaz 05/11/2025 12:00 PM EST PACE Home Care / [facility] [place] [facility] [address] [place] [phone] Natali Sanford 05/11/2025 4:30 PM EST PACE Home Care / [facility] [place] [facility] [address] [place] [phone] Marysol Diaz 05/11/2025 5:30 PM EST PACE Home Care / [facility] [place] [facility] [address] [place] [phone] Marysol Diaz 05/12/2025 8:30 AM EST PACE Home Care / [facility] [facility] [place] [facility] [address] [place] [phone] Carmen Hartmann 05/12/2025 4:30 PM EST PACE Home Care / [facility] [place] [facility] [address] [place] [phone] Ashley Eastman 05/13/2025 8:30 AM EST PACE Home Care / [facility] [facility] Visit [facility] [place] [facility] [address] [place] [phone] Carmen Hartmann 05/13/2025 11:00 AM EST [facility] Visit [facility] [place] [facility] [address] [place] [phone] Regulo Ivy, ALONSO [facility] [address] [address] Brigette East LPN 05/13/2025 4:30 PM EST PACE Home Care / [facility] [facility] Visit [facility] [place] [facility] [address] [place] [phone] Ashley Eastman 05/14/2025 8:30 AM EST PACE Home Care / [facility] [facility] Visit [facility] [place] [facility] [address] [place] [address] Carmen Hartmann 05/14/2025 4:30 PM EST PACE Home Care / [facility] [place] [facility] [address] [place] [address] Ashley Eastman 05/15/2025 8:30 AM EST PACE Home Care / [facility] [facility] [place] [facility] [address] [place] [address] Carmen Hartmann 05/15/2025 9:00 AM EST [facility] Att[facility] [facility] [place] [facility] [address] [place] [address] 05/15/2025 4:30 PM EST PACE Home Care / [place] [facility] [place] [facility] [address] [place] [address] Ashley Eastman 05/16/2025 8:00 AM EST PACE Home Care / [facility] [facility] [place] [facility] [address] [place] [address] Carmen Hartmann 05/16/2025 9:30 AM EST PACE Home Care / [facility] [facility] [place] [facility] [address] [place] [address] Ralph Loyola 05/16/2025 4:30 PM EST PACE Home Care / [facility] [facility] [place] [facility] [address] [place] [address] Ashley Eastman 05/17/2025 12:00 PM EST PACE Home Care / [facility] [facility] [place] [facility] [address] [place] [address] Dena Chavez 05/18/2025 12:00 PM EST PACE Home Care / [facility] [place] [facility] [address] [place] [address] Dena Chavez 05/19/2025 8:30 AM EST PACE Home Care / [facility] [place] [facility] [address] [place] [address] Carmen Hartmann 05/19/2025 4:30 PM EST PACE Home Care / [facility] [place] [facility] [address] [place] [address] Ashley Eastman 05/20/2025 8:30 AM EST PACE Home Care / [facility] [place] [facility] [address] [place] [address] Carmen Hartmann 05/20/2025 4:30 PM EST PACE Home Care / [facility] [place] [facility] [address] [place] [address] Ashley Eastman 05/21/2025 8:30 AM EST PACE Home Care / [facility] [place] [facility] [address] [place] [phone] Carmen Hartmann 05/21/2025 4:30 PM EST PACE Home Care / [facility] Visit [facility] [place] [facility] [address] [place] [phone] Ashley Eastman 05/22/2025 8:30 AM EST PACE Home Care / [facility] Visit [facility] [place] [facility] [address] [place] [phone] Carmen Hartmann 05/22/2025 9:00 AM EST [facility] Attend[facility] [place] [facility] [address] [place] [address] 05/22/2025 4:30 PM EST PACE Home Care / [facility] [facility] [place] [facility] [address] [place] [address] Ashley Eastman 05/23/2025 8:00 AM EST PACE Home Care / [facility] [place] [facility] [address] [place] [phone] Carmen Hartmann 05/23/2025 9:30 AM EST PACE Home Care / [facility] [facility] [place] [facility] [address] [place] [phone] Ralph Loyola 05/23/2025 4:30 PM EST PACE Home Care / [facility] [facility] [place] [facility] [address] [place] [phone] Ashley Eastman 05/24/2025 8:30 AM EST PACE Home Care / [facility] [place] [facility] [address] [place] [phone] Marysol Diaz 05/24/2025 12:00 PM EST PACE Home Care / [facility] [facility] [place] [facility] [address] [place] [phone] Natali Sanford 05/24/2025 5:30 PM EST PACE Home Care / [facility] [facility] [place] [facility] [address] [place] [phone] Marysol Diaz 05/25/2025 8:30 AM EST PACE Home Care / [facility] [facility] [place] [facility] [address] [place] [phone] Marysol Diaz 05/25/2025 12:00 PM EST PACE Home Care / [facility] [facility] [place] [facility] [address] [place] [phone] Natali Sanford 05/25/2025 4:30 PM EST PACE Home Care / [facility] [facility] [place] [facility] [address] [place] [phone] Marysol Diaz 05/25/2025 5:30 PM EST PACE Home Care / [place] [facility] [place] [facility] [address] [place] [phone] Marysol Diaz 05/26/2025 8:30 AM EST PACE Home Care / [facility] [facility] [place] [facility] [address] [place] [phone] Carmen Hartmann 05/26/2025 4:30 PM EST PACE Home Care / [facility] [place] [facility] [address] [place] [phone] Ashley Eastman 05/27/2025 8:30 AM EST PACE Home Care / [facility] [facility] [place] [facility] [address] [place] [phone] Carmen Hartmann 05/27/2025 4:30 PM EST P[facility] Home Care / [facility] [facility] [place] [facility] [address] [place] [phone] Ashley Eastman 05/28/2025 8:30 AM EST PACE Home Care / [facility] [facility] [place] [facility] [address] [place] [phone] Carmen Hartmann 05/28/2025 4:30 PM EST PACE Home Care / [facility] [place] [facility] [address] [place] [phone] Ashley Eastman 05/29/2025 8:30 AM EST P[facility] Home Care / [facility] [facility] [place] [facility] [address] [place] [phone] Carmen Hartmann 05/29/2025 9:00 AM EST [facility] [facility] [place] [facility] [address] [place] [address] 05/29/2025 4:30 PM EST PACE Home Care / [facility] [facility] [place] [facility] [address] [place] [phone] Ashley Eastman 05/30/2025 8:00 AM EST P[facility] Home Care / [facility] [place] [facility] [address] [place] [phone] Carmen Hartmann 05/30/2025 9:30 AM EST PACE Home Care / [facility] [place] [facility] [address] [place] [phone] Ralph Loyola 05/30/2025 4:30 PM EST PACE Home Care / [facility] [facility] [place] [facility] [address] [place] [phone] Ashley Eastman 06/05/2025 9:00 AM EST [facility] [facility] [place] [facility] [address] [place] [phone] 06/10/2025 11:00 AM EST [facility] [place] [facility] [address] [place] [phone] Michelle Castillo MD [address] [place] [address] Brigette East LPN 06/12/2025 9:00 AM EST [facility] [facility] [place] [facility] [address] [place] [phone] 06/19/2025 9:00 AM EST [place] [facility] [place] [facility] [address] [place] [phone] 06/26/2025 9:00 AM EDT [facility] Att[facility] [facility] [place] [facility] [address] [place] [phone] 06/27/2025 1:20 PM EDT Office Visit Gastroenterology - [address] [place] [address] Analisa Perez, ALONSO [address] [address] [place] [address] 07/03/2025 9:00 AM EDT [facility] Attendance[facility] [place] [facility] [address] [place] [phone] 07/10/2025 9:00 AM EDT [facility] Attend[facility] [place] [facility] [address] [place] [phone] 07/17/2025 9:00 AM EDT P[facility] Attendance/[facility] [employer] [facility] [place] [facility] [address] [place] [phone] 07/17/2025 3:30 PM EDT PACE External Visit [facility] [address] [place] [phone] 07/24/2025 9:00 AM EDT [facility] Attendance/[facility] [place] [facility] [address] [place] [phone] 07/31/2025 9:00 AM EDT [facility] Attendance/[facility] [place] [facility] [address] [place] [phone] 08/07/2025 9:00 AM EDT PACE Attendance/[facility] Center [employer] [facility] [place] [facility] [address] [place] [phone] 08/14/2025 9:00 AM EDT [facility] Attendance/[facility] [place] [facility] [address] [place] [phone] 08/21/2025 9:00 AM EDT P[facility] Attendance/[facility] [employer] [facility] [place] [facility] [address] [place] [phone] 08/28/2025 9:00 AM EDT [facility] Attendance[facility] [place] [facility] [address] [place] [phone] 09/04/2025 9:00 AM EDT [facility] Attendance/[facility] [place] [facility] [address] [place] [phone] 09/11/2025 9:00 AM EDT [facility] Attendance/[facility] [place] [facility] [address] [place] [phone] 09/18/2025 9:00 AM EDT [facility] Attendance/[facility] [place] [facility] [address] [place] [phone] 09/25/2025 9:00 AM EDT [facility] Attendance/[facility] [place] [facility] [address] [place] [phone] 10/02/2025 9:00 AM EDT [facility] Attendance[facility] [place] [facility] [address] [place] [phone] 10/09/2025 9:00 AM EDT [facility] Attendance/[facility] [place] [facility] [address] [place] [phone] documented as of this encounter Visit Diagnoses Not on filedocumented in this encounter Care Teams Hosting Engineer Relationship Specialty Start Date End Date Regulo Ivy NP [address] [place] [id number] PCP - General PACE 06/07/24 documented as of this encounter
--- OUTSIDE RECORDS SUMMARY | 2025-03-28 16:30 | XMS_ITS | Encounter Summary ---
Author Organization [facility] Address [address] [place] [address] Care Team Providers Care Account Auditor Name Role Phone Regulo Ivy NP Primary Care Provider [phone] Encounter Details Date Type Department Care Team (Late st Contact Info) Description 03/28/2025 4:30 PM EST PACE Home Care / PACE Home Visit [facility] [address] [place] [address] Ashley Eastman Social History Tobacco [...] for your loved ones. For example, children's book author or elderly care for an older adult? [...] [place] [facility] [address] [place] [phone] Carmen Hartmann 04/02/2025 4:30 PM EST PACE Home Care / [facility] Visit [facility] [place] [facility] [address] [place] [phone] Ashley Eastman 04/03/2025 8:30 AM EST PACE Home Care / [facility] Home Visit [facility] [place] [facility] [address] [place] [phone] Carmen Hartmann 04/03/2025 9:00 AM EST PACE Attendance[facility] [place] [facility] [address] [place] [address] 04/03/2025 4:30 PM EST PACE Home Care / P[facility] Visit [facility] [place] [facility] [address] [place] [phone] Ashley Eastman 04/04/2025 [facility] [place] [facility] [address] [place] [address] Regulo Ivy, ALONSO [address] [address] Constipation, unspecified constipation type 04/04/2025 8:00 AM EST PACE Home Care / [facility] Visit [facility] [place] [facility] [address] [place] [phone] Titi Thomas 04/04/2025 8:30 AM EST PACE Home Care / [facility] Home Visit [facility] [place] [facility] [address] [place] [phone] Marysol Diaz 04/04/2025 4:30 PM EST PACE Home Care / [facility] Visit [facility] [place] [facility] [address] [place] [phone] Ashley Eastman 04/05/2025 12:00 PM EST PACE Home Care / [facility] Home Visit [facility] [place] [facility] [address] [place] [phone] Dena Chavez 04/06/2025 12:00 PM EST PACE Home Care / P[facility] Home Visit [facility] [place] [facility] [address] [place] [phone] Dena Chavez 2025 8:30 AM EST PACE Home Care / P[facility] Home Visit [facility] [place] [facility] [address] [place] [phone] Carmen Hartmann 2025 4:30 PM EST PACE Home Care / [facility] [place] [facility] [address] [place] [address] Ashley Eastman 04/08/2025 8:30 AM EST PACE Home Care / [facility] [place] [facility] [address] [place] [address] Carmen Hartmann 04/08/2025 4:30 PM EST PACE Home Care / [facility] [place] [facility] [address] [place] [phone] Ashley Eastman 04/09/2025 8:30 AM EST PACE Home Care / [facility] Visit [facility] [place] [facility] [address] [place] [phone] Carmen Hartmann 04/09/2025 4:30 PM EST PACE Home Care / [facility] [place] [facility] [address] [place] [phone] Ashley Eastman 04/10/2025 6:05 AM EST PACE Home Care / [facility] [facility] [place] [facility] [address] [place] [phone] Jackeline Mcrae 04/10/2025 9:00 AM EST [facility] [place] [facility] [address] [place] [address] 04/10/2025 4:30 PM EST PACE Home Care / [place] [facility] [place] [facility] [address] [place] [phone] Ashley Eastman 04/11/2025 8:00 AM EST PACE Home Care / [place] [facility] [place] [facility] [address] [place] [phone] Carmen Hartmann 04/11/2025 9:30 AM EST PACE Home Care / [place] [facility] [place] [facility] [address] [place] [address] Carmen Hartmann 04/11/2025 4:30 PM EST PACE Home Care / [facility] Home Visit [facility] [place] [facility] [address] [place] [address] Ashley Eastman 04/12/2025 8:30 AM EST PACE Home Care / [facility] [facility] [place] [facility] [address] [place] [address] Marysol Diaz 04/12/2025 12:00 PM EST PACE Home Care / [place] [facility] Visit [facility] [place] [facility] [address] [place] [address] Natali Sanford 04/12/2025 5:30 PM EST PACE Home Care / [place] Home Visit [facility] [place] [facility] [address] [place] [address] Marysol Diaz 04/13/2025 8:30 AM EST PACE Home Care / [facility] [facility] Visit [facility] [place] [facility] [address] [place] [address] Marysol Diaz 04/13/2025 12:00 PM EST PACE Home Care / [facility] [facility] [place] [facility] [address] [place] [address] Natali Sanford 04/13/2025 4:30 PM EST PACE Home Care / [facility] [place] [facility] [address] [place] [phone] Marysol Diaz 04/13/2025 5:30 PM EST PACE Home Care / [place] [facility] [place] [facility] [address] [place] [phone] Marysol Diaz 04/14/2025 8:30 AM EST PACE Home Care / [place] [facility] Visit [facility] [place] [facility] [address] [place] [address] Carmen Hartmann 04/14/2025 4:30 PM EST PACE Home Care / [facility] [place] [facility] [address] [place] [address] Ashley Eastman 04/15/2025 8:30 AM EST PACE Home Care / [facility] [place] [facility] [address] [place] [address] Carmen Hartmann 04/15/2025 11:00 AM EST [facility] Visit [facility] [place] [facility] [address] [place] [address] Regulo Ivy, ALONSO [address] [place] [address] Brigette East LPN 04/15/2025 4:30 PM EST PACE Home Care / [facility] [place] [facility] [address] [place] [phone] Ashley Eastman 04/16/2025 8:30 AM EST PACE Home Care / [facility] [place] [facility] [address] [place] [phone] Carmen Hartmann 04/16/2025 4:30 PM EST PACE Home Care / [facility] Home Visit [facility] [place] [facility] [address] [place] [phone] Ashley Eastman 04/17/2025 8:30 AM EST PACE Home Care / [facility] Home Visit [facility] [place] [facility] [address] [place] [phone] Carmen Hartmann 04/17/2025 9:00 AM EST [facility] Att[facility] [place] [facility] [address] [place] [address] 04/17/2025 4:30 PM EST PACE Home Care / [facility] [facility] [place] [facility] [address] [place] [phone] Ashley Eastman 04/18/2025 8:00 AM EST PACE Home Care / [facility] [facility] Visit [facility] [place] [facility] [address] [place] [phone] Carmen Hartmann 04/18/2025 4:30 PM EST PACE Home Care / [facility] [facility] Visit [facility] [place] [facility] [address] [place] [phone] Ashley Eastman 04/19/2025 12:00 PM EST PACE Home Care / [facility] [facility] [place] [facility] [address] [place] [phone] Dena Chavez 04/20/2025 12:00 PM EST PACE Home Care / [facility] [place] [facility] [address] [place] [phone] Dena Chavez 04/21/2025 8:30 AM EST PACE Home Care / [facility] [facility] [place] [facility] [address] [place] [phone] Carmen Hartmann 04/21/2025 4:30 PM EST PACE Home Care / [facility] [facility] Visit [facility] [place] [facility] [address] [place] [phone] Ashley Eastman 04/22/2025 8:30 AM EST PACE Home Care / [place] [facility] [place] [facility] [address] [place] [phone] Carmen Hartmann 04/22/2025 4:30 PM EST PACE Home Care / [place] [facility] Visit [facility] [place] [facility] [address] [place] [phone] Ashley Eastman 04/23/2025 8:30 AM EST PACE Home Care / [facility] [facility] Visit [facility] [place] [facility] [address] [place] [address] Carmen Hartmann 04/23/2025 4:30 PM EST PACE Home Care / [facility] [place] [facility] [address] [place] [phone] Ashley Eastman 04/24/2025 8:30 AM EST PACE Home Care / [facility] [facility] [place] [facility] [address] [place] [address] Carmen Hartmann 04/24/2025 9:00 AM EST [facility] Att[facility] [place] [facility] [address] [place] [phone] 04/24/2025 4:30 PM EST PACE Home Care / [facility] [facility] [place] [facility] [address] [place] [phone] Ashley Eastman 04/25/2025 8:00 AM EST PACE Home Care / [place] [facility] [place] [facility] [address] [place] [phone] Carmen Hartmann 04/25/2025 9:30 AM EST PACE Home Care / [facility] [facility] [place] [facility] [address] [place] [phone] Ralph Loyola 04/25/2025 4:30 PM EST PACE Home Care / [place] [facility] Visit [facility] [place] [facility] [address] [place] [phone] Ashley Eastman 04/26/2025 8:30 AM EST PACE Home Care / [facility] [facility] [place] [facility] [address] [place] [phone] Marysol Diaz 04/26/2025 12:00 PM EST PACE Home Care / [place] [facility] [place] [facility] [address] [place] [phone] Natali Sanford 04/26/2025 5:30 PM EST PACE Home Care / [place] [facility] [place] [facility] [address] [place] [phone] Marysol Diaz 04/27/2025 8:30 AM EST PACE Home Care / [place] [facility] [place] [facility] [address] [place] [phone] Marysol Diaz 04/27/2025 12:00 PM EST PACE Home Care / [facility] [place] [facility] [address] [place] [phone] Natali Sanford 04/27/2025 4:30 PM EST PACE Home Care / [facility] [place] [facility] [address] [place] [phone] Marysol Diaz 04/27/2025 5:30 PM EST PACE Home Care / [facility] [place] [facility] [address] [place] [phone] Marysol Diaz 04/28/2025 8:30 AM EST PACE Home Care / [place] [facility] [place] [facility] [address] [place] [phone] Carmen Hartmann 04/28/2025 4:30 PM EST PACE Home Care / [facility] [facility] [place] [facility] [address] [place] [phone] Ashley Eastman 04/29/2025 8:30 AM EST PACE Home Care / [facility] [place] [facility] [address] [place] [phone] Carmen Hartmann 04/29/2025 4:30 PM EST PACE Home Care / [facility] Visit [facility] [place] [facility] [address] [place] [address] Ashley Eastman 04/30/2025 8:30 AM EST PACE Home Care / [facility] Visit [facility] [place] [facility] [address] [place] [address] Carmen Hartmann 04/30/2025 4:30 PM EST PACE Home Care / [facility] Home Visit [facility] [place] [facility] [address] [place] [address] Ashley Eastman 05/01/2025 8:30 AM EST PACE Home Care / [facility] [place] [facility] [address] [place] [address] Carmen Hartmann 05/01/2025 9:00 AM EST PACE Attendance[facility] [place] [facility] [address] [place] [address] 05/01/2025 11:30 AM EST [facility] [place] [address] [place] [address] 05/01/2025 4:30 PM EST PACE Home Care / [facility] [place] [facility] [address] [place] [address] Ashley Eastman 05/02/2025 8:00 AM EST PACE Home Care / [facility] Visit [facility] [place] [facility] [address] [place] [address] Carmen Hartmann 05/02/2025 9:30 AM EST PACE Home Care / [facility] Visit [facility] [place] [facility] [address] [place] [address] Ralph Loyola 05/02/2025 4:30 PM EST PACE Home Care / [facility] Visit [facility] [place] [facility] [address] [place] [address] Ashley Eastman 05/03/2025 12:00 PM EST PACE Home Care / [facility] Visit [facility] [place] [facility] [address] [place] [address] Dena Chavez 05/04/2025 12:00 PM EST PACE Home Care / [facility] [place] [facility] [address] [place] [address] Dena Chavez 05/05/2025 8:30 AM EST PACE Home Care / [facility] [place] [facility] [address] [place] [address] Carmen Hartmann 05/05/2025 4:30 PM EST PACE Home Care / [facility] [place] [facility] [address] [place] [phone] Ashley Eastman 05/06/2025 8:30 AM EST PACE Home Care / [facility] [place] [facility] [address] [place] [address] Carmen Hartmann 05/06/2025 4:30 PM EST PACE Home Care / [facility] [place] [facility] [address] [place] [phone] Ashley Eastman 05/07/2025 8:30 AM EST PACE Home Care / [facility] [place] [facility] [address] [place] [address] Carmen Hartmann 05/07/2025 4:30 PM EST PACE Home Care / [facility] [place] [facility] [address] [place] [address] Ashley Eastman 05/08/2025 8:30 AM EST PACE Home Care / [facility] [place] [facility] [address] [place] [address] Carmen Hartmann 05/08/2025 9:00 AM EST [facility] [place] [facility] [address] [place] [address] 05/08/2025 4:30 PM EST PACE Home Care / [facility] [place] [facility] [address] [place] [phone] Ashley Eastman 05/09/2025 8:00 AM EST PACE Home Care / [facility] [place] [facility] [address] [place] [phone] Carmen Hartmann 05/09/2025 9:30 AM EST PACE Home Care / [facility] [place] [facility] [address] [place] [phone] Ralph Loyola 05/09/2025 4:30 PM EST PACE Home Care / [facility] [place] [facility] [address] [place] [phone] Ashley Eastman 05/10/2025 8:30 AM EST PACE Home Care / [facility] [place] [facility] [address] [place] [phone] Marysol Diaz 05/10/2025 12:00 PM EST PACE Home Care / [facility] [place] [facility] [address] [place] [phone] Natali Sanford 05/10/2025 5:30 PM EST PACE Home Care / [facility] [place] [facility] [address] [place] [phone] Marysol Diaz 05/11/2025 8:30 AM EST PACE Home Care / [facility] [place] [facility] [address] [place] [phone] Marysol Diaz 05/11/2025 12:00 PM EST PACE Home Care / [facility] [place] [facility] [address] [place] [phone] Natali Sanford 05/11/2025 4:30 PM EST PACE Home Care / [facility] [place] [facility] [address] [place] [phone] Marysol Diaz 05/11/2025 5:30 PM EST PACE Home Care / [facility] [place] [facility] [address] [place] [phone] Marysol Diaz 05/12/2025 8:30 AM EST PACE Home Care / [facility] [place] [facility] [address] [place] [phone] Carmen Hartmann 05/12/2025 4:30 PM EST PACE Home Care / [facility] [place] [facility] [address] [place] [phone] Ashley Eastman 05/13/2025 8:30 AM EST PACE Home Care / [facility] [place] [facility] [address] [place] [phone] Carmen Hartmann 05/13/2025 11:00 AM EST [facility] Visit [facility] [place] [facility] [address] [place] [phone] Regulo Ivy, ALONSO [facility] [address] [address] Brigette East LPN 05/13/2025 4:30 PM EST PACE Home Care / [facility] Visit [facility] [place] [facility] [address] [place] [phone] Ashley Eastman 05/14/2025 8:30 AM EST PACE Home Care / [facility] [place] [facility] [address] [place] [address] Carmen Hartmann 05/14/2025 4:30 PM EST PACE Home Care / [facility] [place] [facility] [address] [place] [address] Ashley Eastman 05/15/2025 8:30 AM EST PACE Home Care / [facility] [place] [facility] [address] [place] [address] Carmen Hartmann 05/15/2025 9:00 AM EST [facility] [place] [facility] [address] [place] [address] 05/15/2025 4:30 PM EST PACE Home Care / [facility] [facility] [place] [facility] [address] [place] [address] Ashley Eastman 05/16/2025 8:00 AM EST PACE Home Care / [facility] [place] [facility] [address] [place] [address] Carmen Hartmann 05/16/2025 9:30 AM EST PACE Home Care / [facility] [place] [facility] [address] [place] [address] Ralph Loyola 05/16/2025 4:30 PM EST PACE Home Care / [facility] [place] [facility] [address] [place] [address] Ashley Eastman 05/17/2025 12:00 PM EST PACE Home Care / [facility] [place] [facility] [address] [place] [address] Dena Chavez 05/18/2025 12:00 PM EST PACE Home Care / [facility] [place] [facility] [address] [place] [address] Dena Chavez 05/19/2025 8:30 AM EST PACE Home Care / [facility] [address] [place] [address] Carmen Hartmann 05/19/2025 4:30 PM EST PACE Home Care / [facility] [place] [facility] [address] [place] [address] Ashley Eastman 05/20/2025 8:30 AM EST PACE Home Care / [facility] [place] [facility] [address] [place] [address] Carmen Hartmann 05/20/2025 4:30 PM EST PACE Home Care / [facility] [place] [facility] [address] [place] [address] Ashley Eastman 05/21/2025 8:30 AM EST PACE Home Care / [facility] [place] [facility] [address] [place] [phone] Carmen Hartmann 05/21/2025 4:30 PM EST PACE Home Care / [facility] [place] [facility] [address] [place] [phone] Ashley Eastman 05/22/2025 8:30 AM EST PACE Home Care / [facility] [place] [facility] [address] [place] [phone] Carmen Hartmann 05/22/2025 9:00 AM EST [facility] Att[facility] [place] [facility] [address] [place] [address] 05/22/2025 4:30 PM EST PACE Home Care / [facility] [place] [facility] [address] [place] [address] Ashley Eastman 05/23/2025 8:00 AM EST PACE Home Care / [facility] [place] [facility] [address] [place] [phone] Carmen Hartmann 05/23/2025 9:30 AM EST PACE Home Care / [facility] [place] [facility] [address] [place] [phone] Ralph Loyola 05/23/2025 4:30 PM EST PACE Home Care / [facility] [place] [facility] [address] [place] [phone] Ashley Eastman 05/24/2025 8:30 AM EST PACE Home Care / [facility] [place] [facility] [address] [place] [phone] Marysol Diaz 05/24/2025 12:00 PM EST PACE Home Care / [facility] [place] [facility] [address] [place] [phone] Natali Sanford 05/24/2025 5:30 PM EST PACE Home Care / [facility] [place] [facility] [address] [place] [phone] Marysol Diaz 05/25/2025 8:30 AM EST PACE Home Care / [facility] [place] [facility] [address] [place] [phone] Marysol Diaz 05/25/2025 12:00 PM EST PACE Home Care / [facility] [place] [facility] [address] [place] [phone] Natali Sanford 05/25/2025 4:30 PM EST PACE Home Care / [facility] [place] [facility] [address] [place] [phone] Marysol Diaz 05/25/2025 5:30 PM EST PACE Home Care / [facility] [place] [facility] [address] [place] [phone] Marysol Diaz 05/26/2025 8:30 AM EST PACE Home Care / [facility] [place] [facility] [address] [place] [phone] Carmen Hartmann 05/26/2025 4:30 PM EST PACE Home Care / [facility] [place] [facility] [address] [place] [phone] Ashley Eastman 05/27/2025 8:30 AM EST PACE Home Care / [facility] [place] [facility] [address] [place] [phone] Carmen Hartmann 05/27/2025 4:30 PM EST PACE Home Care / [facility] [place] [facility] [address] [place] [phone] Ashley Eastman 05/28/2025 8:30 AM EST PACE Home Care / [facility] [place] [facility] [address] [place] [phone] Carmen Hartmann 05/28/2025 4:30 PM EST PACE Home Care / [facility] [place] [facility] [address] [place] [phone] Ashley Eastman 05/29/2025 8:30 AM EST PACE Home Care / [facility] [place] [facility] [address] [place] [phone] Carmen Hartmann 05/29/2025 9:00 AM EST [facility] [place] [facility] [address] [place] [address] 05/29/2025 4:30 PM EST PACE Home Care / [facility] [place] [facility] [address] [place] [phone] Ashley Eastman 05/30/2025 8:00 AM EST PACE Home Care / [facility] [place] [facility] [address] [place] [phone] Carmen Hartmann 05/30/2025 9:30 AM EST P[facility] Home Care / [facility] [place] [facility] [address] [place] [phone] Ralph Loyola 05/30/2025 4:30 PM EST P[facility] Home Care / [facility] [place] [facility] [address] [place] [phone] Ashley Eastman 06/05/2025 9:00 AM EST [facility] [facility] [place] [facility] [address] [place] [phone] 06/10/2025 11:00 AM EST [facility] Visit [facility] [place] [facility] [address] [place] [phone] Michelle Castillo MD [address] [place] [phone] Brigette [place] [facility] 06/12/2025 9:00 AM EST P[facility] Attendance/[place] [facility] [place] [facility] [address] [place] [phone] 06/19/2025 9:00 AM EST P[facility] Attendance/[place] [facility] [place] [facility] [address] [place] [phone] 06/26/2025 9:00 AM EDT [facility] Attendance[place] [facility] [place] [facility] [address] [place] [phone] 06/27/2025 1:20 PM EDT Office Visit Gastroenterology - [address] [place] [address] Analisa Perez, ALONSO [address] [place] [address] 07/03/2025 9:00 AM EDT PACE Attendance/Day [place] [facility] [place] [facility] [address] [place] [phone] 07/10/2025 9:00 AM EDT PACE Attendance/[place] [facility] [place] [facility] [address] [place] [phone] 07/17/2025 9:00 AM EDT PACE Attendance/Day [place] [facility] [place] [facility] [address] [place] [phone] 07/17/2025 3:30 PM EDT PACE External Visit [facility] [address] [place] [phone] 07/24/2025 9:00 AM EDT PACE Attendance/[facility] [place] [facility] [address] [place] [phone] 07/31/2025 9:00 AM EDT PACE Attendance/[facility] [place] [facility] [place] [facility] [address] [place] [phone] 08/07/2025 9:00 AM EDT PACE Attendance/[facility] [place] [facility] [place] [facility] [address] [place] [phone] 08/14/2025 9:00 AM EDT PACE Attendance/[facility] [place] [facility] [place] [facility] [address] [place] [phone] 08/21/2025 9:00 AM EDT PACE Attendance/[place] [facility] [place] [facility] [address] [place] [phone] 08/28/2025 9:00 AM EDT PACE Attendance/Day Center [facility] [place] [facility] [address] [place] [phone] 09/04/2025 9:00 AM EDT [facility] Attendance/[place] [facility] [place] [facility] [address] [place] [phone] 09/11/2025 9:00 AM EDT PACE Attendance[place] [facility] [place] [facility] [address] [place] [phone] 09/18/2025 9:00 AM EDT [facility]ACE Attendance[facility] [facility] [place] [facility] [address] [place] [phone] 09/25/2025 9:00 AM EDT PACE Attendance[facility] [facility] [place] [facility] [address] [place] [phone] 10/02/2025 9:00 AM EDT [facility]ACE Attendance[facility] [facility] [place] [facility] [address] [place] [phone] 10/09/2025 9:00 AM EDT [facility]ACE Attendance[facility] [facility] [place] [facility] [address] [place] [phone] documented as of this encounter Visit Diagnoses Not on filedocumented in this encounter Care Teams Account Auditor Relationship Specialty Start Date End Date Regulo Ivy NP [address] [place] [id number] PCP - General PACE 06/07/24 documented as of this encounter
--- OUTSIDE RECORDS SUMMARY | 2025-03-29 08:30 | XMS_ITS | Encounter Summary ---
Author Organization [facility] Address [address] [place] [address] Care Team Providers Care Gate Keeper Name Role Phone Regulo Ivy NP Primary Care Provider [phone] Encounter Details Date Type Department Care Team (Late st Contact Info) Description 03/29/2025 8:30 AM EST PACE Home Care / PACE Home Visit [facility] In Home Nursing and Aide Services [address] [place] [address] Marysol Diaz Social History Tobacco Use Types Packs/Day Years [...] your loved ones. For example, early childhood education worker or elderly care for an older [...] [place] [facility] [address] [place] [phone] Carmen Hartmann 04/02/2025 4:30 PM EST PACE Home Care / [place] Home [place] [facility] [place] [facility] [address] [place] [phone] Ashley Eastman 04/03/2025 8:30 AM EST PACE Home Care / [place] Home Visit [facility] [place] [facility] [address] [place] [phone] Carmen Hartmann 04/03/2025 9:00 AM EST PACE [facility] [place] [facility] [address] [place] [address] 04/03/2025 4:30 PM EST PACE Home Care / [facility] [place] [facility] [address] [place] [address] Ashley Eastman 04/04/2025 [facility] [address] [place] [address] Regulo Ivy, ALONSO [address] [address] Constipation, unspecified constipation type 04/04/2025 8:00 AM EST PACE Home Care / [facility] [place] [facility] [address] [place] [phone] Titi Thomas 04/04/2025 8:30 AM EST PACE Home Care / [facility] [place] [facility] [address] [place] [phone] Marysol Diaz 04/04/2025 4:30 PM EST PACE Home Care / [facility] [place] [facility] [address] [place] [phone] Ashley Eastman 04/05/2025 12:00 PM EST PACE Home Care / [facility] [place] [facility] [address] [place] [phone] Dena Chavez 04/06/2025 12:00 PM EST PACE Home Care / [facility] Visit [facility] [place] [facility] [address] [place] [phone] Dena Chavez 2025 8:30 AM EST PACE Home Care / [facility] Visit [facility] [place] [facility] [address] [place] [phone] Carmen Hartmann 2025 4:30 PM EST PACE Home Care / [place] Home Visit [facility] [place] [facility] [address] [place] [address] Ashley Eastman 04/08/2025 8:30 AM EST PACE Home Care / [place] Home Visit [facility] [place] [facility] [address] [place] [address] Carmen Hartmann 04/08/2025 4:30 PM EST PACE Home Care / [place] Home Visit [facility] [place] [facility] [address] [place] [address] Ashley Eastman 04/09/2025 8:30 AM EST PACE Home Care / [place] Home Visit [facility] [place] [facility] [address] [place] [address] Carmen Hartmann 04/09/2025 4:30 PM EST PACE Home Care / [place] Home Visit [facility] [place] [facility] [address] [place] [phone] Ashley Eastman 04/10/2025 6:05 AM EST PACE Home Care / [place] Home Visit [facility] [place] [facility] [address] [place] [phone] Jackeline Mcrae 04/10/2025 9:00 AM EST [facility] [facility] [place] [facility] [address] [place] [address] 04/10/2025 4:30 PM EST PACE Home Care / [place] [facility] [place] [facility] [address] [place] [phone] Ashley Eastman 04/11/2025 8:00 AM EST PACE Home Care / [place] Home Visit [facility] [place] [facility] [address] [place] [phone] Carmen Hartmann 04/11/2025 9:30 AM EST PACE Home Care / [place] Home Visit [facility] [place] [facility] [address] [place] [address] Carmen Hartmann 04/11/2025 4:30 PM EST PACE Home Care / [place] Home Visit [facility] [place] [facility] [address] [place] [address] Ashley Eastman 04/12/2025 8:30 AM EST PACE Home Care / [place] Home Visit [facility] [place] [facility] [address] [place] [address] Marysol Diaz 04/12/2025 12:00 PM EST PACE Home Care / [place] Home Visit [facility] [place] [facility] [address] [place] [address] Natali Sanford 04/12/2025 5:30 PM EST PACE Home Care / [place] Home Visit [facility] [place] [facility] [address] [place] [address] Marysol Diaz 04/13/2025 8:30 AM EST PACE Home Care / [place] Home Visit [facility] [place] [facility] [address] [place] [address] Marysol Diaz 04/13/2025 12:00 PM EST PACE Home Care / [place] Home Visit [facility] [place] [facility] [address] [place] [phone] Natali Sanford 04/13/2025 4:30 PM EST PACE Home Care / [place] Home Visit [facility] [place] [facility] [address] [place] [phone] Marysol Diaz 04/13/2025 5:30 PM EST PACE Home Care / [place] Home Visit [facility] [place] [facility] [address] [place] [phone] Marysol Diaz 04/14/2025 8:30 AM EST PACE Home Care / [place] Home Visit [facility] [place] [facility] [address] [place] [address] Carmen Hartmann 04/14/2025 4:30 PM EST PACE Home Care / [facility] [address] [place] [address] Ashley Eastman 04/15/2025 8:30 AM EST PACE Home Care / [facility] [place] [facility] [address] [place] [address] Carmen Hartmann 04/15/2025 11:00 AM EST [facility] [address] [place] [phone] Regulo Ivy, ALONSO [address] [address] Brigette East LPN 04/15/2025 4:30 PM EST PACE Home Care / [facility] [place] [facility] [address] [place] [phone] Ashley Eastman 04/16/2025 8:30 AM EST PACE Home Care / [facility] [place] [facility] [address] [place] [phone] Carmen Hartmann 04/16/2025 4:30 PM EST PACE Home Care / [place] Home Visit [facility] [place] [facility] [address] [place] [phone] Ashley Eastman 04/17/2025 8:30 AM EST PACE Home Care / [place] Home Visit [facility] [place] [facility] [address] [place] [phone] Carmen Hartmann 04/17/2025 9:00 AM EST [facility] [place] [facility] [address] [place] [address] 04/17/2025 4:30 PM EST PACE Home Care / [place] [facility] [place] [facility] [address] [place] [phone] Ashley Eastman 04/18/2025 8:00 AM EST PACE Home Care / [place] Home Visit [facility] [place] [facility] [address] [place] [phone] Carmen Hartmann 04/18/2025 4:30 PM EST PACE Home Care / [place] Home Visit [facility] [place] [facility] [address] [place] [phone] Ashley Eastman 04/19/2025 12:00 PM EST PACE Home Care / [place] [facility] Visit [facility] [place] [facility] [address] [place] [phone] Dena Chavez 04/20/2025 12:00 PM EST PACE Home Care / [place] [facility] Visit [facility] [place] [facility] [address] [place] [phone] Dena Chavez 04/21/2025 8:30 AM EST PACE Home Care / [place] [facility] Visit [facility] [place] [facility] [address] [place] [phone] Carmen Hartmann 04/21/2025 4:30 PM EST PACE Home Care / [place] [facility] Visit [facility] [place] [facility] [address] [place] [phone] Ashley Eastman 04/22/2025 8:30 AM EST PACE Home Care / [place] [facility] Visit [facility] [place] [facility] [address] [place] [phone] Carmen Hartmann 04/22/2025 4:30 PM EST PACE Home Care / [place] Home Visit [facility] [place] [facility] [address] [place] [phone] Ashley Eastman 04/23/2025 8:30 AM EST PACE Home Care / [place] Home Visit [facility] [place] [facility] [address] [place] [phone] Carmen Hartmann 04/23/2025 4:30 PM EST PACE Home Care / [place] Home Visit [facility] [place] [facility] [address] [place] [phone] Ashley Eastman 04/24/2025 8:30 AM EST PACE Home Care / [place] Home Visit [facility] [place] [facility] [address] [place] [address] Carmen Hartmann 04/24/2025 9:00 AM EST [place] [facility] [place] [facility] [address] [place] [phone] 04/24/2025 4:30 PM EST PACE Home Care / [place] [facility] Visit [facility] [place] [facility] [address] [place] [phone] Ashley Eastman 04/25/2025 8:00 AM EST PACE Home Care / [place] [facility] Visit [facility] [place] [facility] [address] [place] [phone] Carmen Hartmann 04/25/2025 9:30 AM EST PACE Home Care / [place] Home Visit [facility] [place] [facility] [address] [place] [phone] Ralph Loyola 04/25/2025 4:30 PM EST PACE Home Care / [place] Home Visit [facility] [place] [facility] [address] [place] [phone] Ashley Eastman 04/26/2025 8:30 AM EST PACE Home Care / [place] [facility] Visit [facility] [place] [facility] [address] [place] [phone] Marysol Logan 04/26/2025 12:00 PM EST PACE Home Care / [place] [facility] Visit [facility] [place] [facility] [address] [place] [phone] Natali Sanford 04/26/2025 5:30 PM EST PACE Home Care / [place] Home Visit [facility] [place] [facility] [address] [place] [phone] Marysol Diaz 04/27/2025 8:30 AM EST PACE Home Care / [place] Home Visit [facility] [place] [facility] [address] [place] [phone] Marysol Diaz 04/27/2025 12:00 PM EST PACE Home Care / [place] [facility] Visit [facility] [place] [facility] [address] [place] [phone] Natali Sanford 04/27/2025 4:30 PM EST PACE Home Care / [place] [facility] Visit [facility] [place] [facility] [address] [place] [phone] Marysol Diaz 04/27/2025 5:30 PM EST PACE Home Care / [place] Home Visit [facility] [place] [facility] [address] [place] [phone] Marysol Diaz 04/28/2025 8:30 AM EST PACE Home Care / [place] [facility] Visit [facility] [place] [facility] [address] [place] [phone] Carmen Hartmann 04/28/2025 4:30 PM EST PACE Home Care / [place] [facility] Visit [facility] [place] [facility] [address] [place] [phone] Ashley Eastman 04/29/2025 8:30 AM EST PACE Home Care / [place] [facility] Visit [facility] [place] [facility] [address] [place] [phone] Carmen Hartmann 04/29/2025 4:30 PM EST PACE Home Care / [facility] [address] [place] [address] Ashley Eastman 04/30/2025 8:30 AM EST PACE Home Care / [facility] [address] [place] [address] Carmen Hartmann 04/30/2025 4:30 PM EST PACE Home Care / P[facility] Visit [facility] [place] [facility] [address] [place] [address] Ashley Eastman 05/01/2025 8:30 AM EST PACE Home Care / PACE [facility] Visit [facility] [address] [place] [address] Carmen Hartmann 05/01/2025 9:00 AM EST [facility] [place] [facility] [address] [place] [address] 05/01/2025 11:30 AM EST Clinical Support [facility] [address] [place] [address] 05/01/2025 4:30 PM EST PACE Home Care / PACE [facility] [address] [place] [address] Ashley Eastman 05/02/2025 8:00 AM EST PACE Home Care / P[place] [facility] Visit [facility] [place] [facility] [address] [place] [address] Carmen Hartmann 05/02/2025 9:30 AM EST PACE Home Care / PACE Home Visit [facility] [place] [facility] [address] [place] [address] Ralph Loyola 05/02/2025 4:30 PM EST PACE Home Care / P[facility] [address] [place] [phone] Ashley Eastman 05/03/2025 12:00 PM EST PACE Home Care / [facility] Visit [facility] [place] [facility] [address] [place] [address] Dena Chavez 05/04/2025 12:00 PM EST PACE Home Care / [place] Home Visit [facility] [place] [facility] [address] [place] [address] Dena Chavez 05/05/2025 8:30 AM EST PACE Home Care / [place] Home Visit [facility] [place] [facility] [address] [place] [phone] Carmen Hartmann 05/05/2025 4:30 PM EST PACE Home Care / [place] Home Visit [facility] [place] [facility] [address] [place] [phone] Ashley Eastman 05/06/2025 8:30 AM EST PACE Home Care / [place] [facility] Visit [facility] [address] [place] [phone] Carmen Hartmann 05/06/2025 4:30 PM EST PACE Home Care / [place] [facility] Visit [facility] [place] [facility] [address] [place] [phone] Ashley Eastman 05/07/2025 8:30 AM EST PACE Home Care / [facility] [facility] [address] [place] [phone] Carmen Hartmann 05/07/2025 4:30 PM EST PACE Home Care / [place] [facility] Visit [facility] [place] [facility] [address] [place] [phone] Ashley Eastman 05/08/2025 8:30 AM EST PACE Home Care / [place] [facility] Visit [facility] [place] [facility] [address] [place] [address] Carmen Hartmann 05/08/2025 9:00 AM EST [place] [facility] [place] [facility] [address] [place] [address] 05/08/2025 4:30 PM EST PACE Home Care / [place] [facility] [place] [facility] [address] [place] [phone] Ashley Eastman 05/09/2025 8:00 AM EST PACE Home Care / [facility] [address] [place] [phone] Carmen Hartmann 05/09/2025 9:30 AM EST PACE Home Care / [place] [facility] [place] [facility] [address] [place] [phone] Ralph Loyola 05/09/2025 4:30 PM EST PACE Home Care / [place] [facility] [address] [place] [phone] Ashley Eastman 05/10/2025 8:30 AM EST PACE Home Care / [place] [facility] [place] [facility] [address] [place] [phone] Marysol Diaz 05/10/2025 12:00 PM EST PACE Home Care / [place] [facility] [place] [facility] [address] [place] [phone] Natali Sanford 05/10/2025 5:30 PM EST PACE Home Care / [place] [facility] [place] [facility] [address] [place] [phone] Marysol Diaz 05/11/2025 8:30 AM EST PACE Home Care / [place] [facility] [place] [facility] [address] [place] [phone] Marysol Diaz 05/11/2025 12:00 PM EST PACE Home Care / [place] [facility] [place] [facility] [address] [place] [phone] Natali Sanford 05/11/2025 4:30 PM EST PACE Home Care / [place] [facility] Visit [facility] [place] [facility] [address] [place] [phone] Marysol Diaz 05/11/2025 5:30 PM EST PACE Home Care / [facility] [facility] Visit [facility] [place] [facility] [address] [place] [phone] Marysol Diaz 05/12/2025 8:30 AM EST PACE Home Care / [place] [facility] Visit [facility] [place] [facility] [address] [place] [phone] Carmen Hartmann 05/12/2025 4:30 PM EST PACE Home Care / [place] [facility] Visit [facility] [place] [facility] [address] [place] [phone] Ashley Eastman 05/13/2025 8:30 AM EST PACE Home Care / [place] [facility] Visit [facility] [place] [facility] [address] [place] [phone] Carmen Hartmann 05/13/2025 11:00 AM EST [facility] Visit [facility] [place] [facility] [address] [place] [phone] Regulo Ivy, ALONSO [address] [address] Brigette East LPN 05/13/2025 4:30 PM EST PACE Home Care / [place] [facility] [place] [facility] [address] [place] [phone] Ashley Eastman 05/14/2025 8:30 AM EST PACE Home Care / [place] [facility] Visit [facility] [place] [facility] [address] [place] [address] Carmen Hartmann 05/14/2025 4:30 PM EST PACE Home Care / [place] [facility] Visit [facility] [place] [facility] [address] [place] [address] Ashley Eastman 05/15/2025 8:30 AM EST PACE Home Care / [place] [facility] Visit [facility] [place] [facility] [address] [place] [address] Carmen Hartmann 05/15/2025 9:00 AM EST [facility] [facility] [facility] [place] [facility] [address] [place] [address] 05/15/2025 4:30 PM EST PACE Home Care / [place] [facility] [place] [facility] [address] [place] [address] Ashley Eastman 05/16/2025 8:00 AM EST PACE Home Care / [place] [facility] Visit [facility] [place] [facility] [address] [place] [address] Carmen Hartmann 05/16/2025 9:30 AM EST PACE Home Care / [facility] [place] [facility] [address] [place] [address] Ralph Loyola 05/16/2025 4:30 PM EST PACE Home Care / [place] [facility] [place] [facility] [address] [place] [address] Aslhey Eastman 05/17/2025 12:00 PM EST PACE Home Care / [facility] [facility] Visit [facility] [place] [facility] [address] [place] [address] Dena Chavez 05/18/2025 12:00 PM EST PACE Home Care / [place] [facility] Visit [facility] [place] [facility] [address] [place] [address] Dena Chavez 05/19/2025 8:30 AM EST PACE Home Care / [facility] [address] [place] [address] Carmen Hartmann 05/19/2025 4:30 PM EST PACE Home Care / [facility] [place] [facility] [address] [place] [address] Ashley Eastman 05/20/2025 8:30 AM EST PACE Home Care / [facility] Visit [facility] [place] [facility] [address] [place] [address] Carmen Hartmann 05/20/2025 4:30 PM EST PACE Home Care / [facility] Visit [facility] [place] [facility] [address] [place] [address] Ashley Eastman 05/21/2025 8:30 AM EST PACE Home Care / [facility] Visit [facility] [place] [facility] [address] [place] [phone] Carmen Hartmann 05/21/2025 4:30 PM EST PACE Home Care / [facility] Visit [facility] [place] [facility] [address] [place] [phone] Ashley Eastman 05/22/2025 8:30 AM EST PACE Home Care / [place] [facility] Visit [facility] [place] [facility] [address] [place] [address] Carmen Hartmann 05/22/2025 9:00 AM EST [facility] [place] [facility] [address] [place] [address] 05/22/2025 4:30 PM EST PACE Home Care / [facility] [facility] [place] [facility] [address] [place] [address] Ashley Eastman 05/23/2025 8:00 AM EST PACE Home Care / [place] [facility] [place] [facility] [address] [place] [address] Carmen Hartmann 05/23/2025 9:30 AM EST PACE Home Care / [facility] [facility] [place] [facility] [address] [place] [address] Ralph Loyola 05/23/2025 4:30 PM EST PACE Home Care / [place] [facility] [place] [facility] [address] [place] [phone] Ashley Eastman 05/24/2025 8:30 AM EST PACE Home Care / [place] [facility] [address] [place] [phone] Marysol Diaz 05/24/2025 12:00 PM EST PACE Home Care / [place] [facility] [place] [facility] [address] [place] [phone] Natali Sanford 05/24/2025 5:30 PM EST PACE Home Care / [place] [facility] [place] [facility] [address] [place] [phone] Marysol Diaz 05/25/2025 8:30 AM EST PACE Home Care / [place] [facility] [place] [facility] [address] [place] [phone] Marysol Diaz 05/25/2025 12:00 PM EST PACE Home Care / [place] [facility] [place] [facility] [address] [place] [phone] Natali Sanford 05/25/2025 4:30 PM EST PACE Home Care / [place] [facility] [place] [facility] [address] [place] [address] Marysol Diaz 05/25/2025 5:30 PM EST PACE Home Care / [facility] [facility] [place] [facility] [address] [place] [address] Marysol Diaz 05/26/2025 8:30 AM EST PACE Home Care / [place] [facility] [place] [facility] [address] [place] [address] Carmen Hartmann 05/26/2025 4:30 PM EST PACE Home Care / [place] [facility] [place] [facility] [address] [place] [phone] Ashley Eastman 05/27/2025 8:30 AM EST PACE Home Care / [place] [facility] [place] [facility] [address] [place] [phone] Carmen Hartmann 05/27/2025 4:30 PM EST PACE Home Care / [place] [facility] [place] [facility] [address] [place] [phone] Ashley Eastman 05/28/2025 8:30 AM EST P[facility] Home Care / [place] [facility] [place] [facility] [address] [place] [phone] Carmen Hartmann 05/28/2025 4:30 PM EST PACE Home Care / [place] [facility] [place] [facility] [address] [place] [phone] Ashley Eastman 05/29/2025 8:30 AM EST PACE Home Care / [place] [facility] [place] [facility] [address] [place] [phone] Carmen Hartmann 05/29/2025 9:00 AM EST [facility] [facility] [place] [facility] [address] [place] [phone] 05/29/2025 4:30 PM EST PACE Home Care / [place] [facility] [place] [facility] [address] [place] [phone] Ashley Eastman 05/30/2025 8:00 AM EST P[facility] Home Care / [place] [facility] [place] [facility] [address] [place] [phone] Carmen Hartmann 05/30/2025 9:30 AM EST P[facility] Home Care / [place] [facility] [place] [facility] [address] [place] [phone] Ralph Loyola 05/30/2025 4:30 PM EST PACE Home Care / [place] [facility] [place] [facility] [address] [place] [phone] Ashley Eastman 06/05/2025 9:00 AM EST [facility] [facility] [place] [facility] [address] [place] [phone] 06/10/2025 11:00 AM EST [facility] [place] [facility] [address] [place] [phone] Michelle Castillo MD [address] [place] [address] Brigette East LPN 06/12/2025 9:00 AM EST [facility] Att[place] [facility] [place] [facility] [address] [place] [phone] 06/19/2025 9:00 AM EST [facility] [facility] [place] [facility] [address] [place] [phone] 06/26/2025 9:00 AM EDT [facility] [facility] [place] [facility] [address] [place] [phone] 06/27/2025 1:20 PM EDT Office Visit Gastroenterology - [address] [place] [address] Analisa Perez, ALONSO [address] [place] [address] 07/03/2025 9:00 AM EDT [facility] Attendance/[place] [facility] [place] [facility] [address] [place] [phone] 07/10/2025 9:00 AM EDT [facility] Attend[place] [facility] [place] [facility] [address] [place] [phone] 07/17/2025 9:00 AM EDT [facility] Attendance[place] [facility] [place] [facility] [address] [place] [phone] 07/17/2025 3:30 PM EDT PACE External Visit [facility] [address] [place] [phone] 07/24/2025 9:00 AM EDT [facility] Attendance[place] [facility] [place] [facility] [address] [place] [phone] 07/31/2025 9:00 AM EDT [facility] Attendance[place] [facility] [place] [facility] [address] [place] [phone] 08/07/2025 9:00 AM EDT P[place] Attendance[place] [facility] [place] [facility] [address] [place] [phone] 08/14/2025 9:00 AM EDT [facility] Attendance[place] [facility] [place] [facility] [address] [place] [phone] 08/21/2025 9:00 AM EDT [facility] Attendance[place] [facility] [place] [facility] [address] [place] [phone] 08/28/2025 9:00 AM EDT P[facility] Attendance[facility] [facility] [place] [facility] [address] [place] [phone] 09/04/2025 9:00 AM EDT PACE Attendance/Day Center [facility] [address] [place] [phone] 09/11/2025 9:00 AM EDT PACE Attendance/[facility] [address] [place] [phone] 09/18/2025 9:00 AM EDT PACE Attendance/Day Center [facility] [address] [place] [phone] 09/25/2025 9:00 AM EDT PACE Attendance/Day Center [facility] [address] [place] [phone] 10/02/2025 9:00 AM EDT PACE Attendance/Day Center [facility] [address] [place] [phone] 10/09/2025 9:00 AM EDT PACE Attendance/Day Center [facility] [address] [place] [phone] documented as of this encounter Visit Diagnoses Not on filedocumented in this encounter Care Teams Gate Keeper Relationship Specialty Start Date End Date Regulo Ivy NP [address] [place] [id number] PCP - General PACE 06/07/24 documented as of this encounter
--- OUTSIDE RECORDS SUMMARY | 2025-03-29 16:15 | XMS_ITS | Encounter Summary ---
Author Organization [facility] Address [address] [place] [address] Care Team Providers Care Director Digital Catalogue Name Role Phone Regulo Ivy NP Primary Care Provider [phone] Encounter Details Date Type Department Care Team (Late st Contact Info) Description 03/29/2025 4:15 PM EST PACE Home Care / [facility] and Aide Services [address] [place] [address] Marysol Diaz Social History Tobacco [...] for your loved ones. For example, child health associate or elderly care for an older adult? [...] In Home Nursing and Aide Services [address] [place] [phone] Carmen Hartmann 04/02/2025 4:30 PM EST PACE Home Care / [place] [facility] [place] [facility] [address] [place] [phone] Ashley Eastman 04/03/2025 8:30 AM EST PACE Home Care / [place] [facility] [place] [facility] [address] [place] [phone] Carmen Hartmann 04/03/2025 9:00 AM EST [facility] [place] [facility] [address] [place] [address] 04/03/2025 4:30 PM EST PACE Home Care / [facility] [place] [facility] [address] [place] [address] Ashley Eastman 04/04/2025 [facility] [address] [place] [address] Regulo Ivy, ALONSO [address] [address] Constipation, unspecified constipation type 04/04/2025 8:00 AM EST PACE Home Care / [facility] [place] [facility] [address] [place] [phone] Titi Thomas 04/04/2025 8:30 AM EST PACE Home Care / [facility] [place] [facility] [address] [place] [phone] Marysol Diaz 04/04/2025 4:30 PM EST PACE Home Care / [facility] [address] [place] [phone] Ashley Eastman 04/05/2025 12:00 PM EST PACE Home Care / [facility] [place] [facility] [address] [place] [phone] Dena Chavez 04/06/2025 12:00 PM EST PACE Home Care / [facility] [place] [facility] [address] [place] [phone] Dena Chavez 2025 8:30 AM EST PACE Home Care / [facility] [address] [place] [phone] Carmen Hartmann 2025 4:30 PM EST PACE Home Care / [place] [facility] [address] [place] [address] Ashley Eastman 04/08/2025 8:30 AM EST PACE Home Care / [place] [facility] [place] [facility] [address] [place] [address] Carmen Hartmann 04/08/2025 4:30 PM EST PACE Home Care / [place] [facility] [place] [facility] [address] [place] [address] Ashley Eastman 04/09/2025 8:30 AM EST PACE Home Care / [place] [facility] [place] [facility] [address] [place] [address] Carmen Hartmann 04/09/2025 4:30 PM EST PACE Home Care / [place] [facility] [place] [facility] [address] [place] [phone] Ashley Eastman 04/10/2025 6:05 AM EST PACE Home Care / [place] [facility] [place] [facility] [address] [place] [phone] Jackeline Mcrae 04/10/2025 9:00 AM EST [facility] [facility] [place] [facility] [address] [place] [address] 04/10/2025 4:30 PM EST PACE Home Care / [place] [facility] [place] [facility] [place] [facility] [address] [place] [address] Ashley Eastman 04/11/2025 8:00 AM EST PACE Home Care / [place] [facility] [address] [place] [phone] Carmen Hartmann 04/11/2025 9:30 AM EST PACE Home Care / [place] [facility] [address] [place] [address] Carmen Hartmann 04/11/2025 4:30 PM EST PACE Home Care / [place] [facility] [address] [place] [address] Ashley Eastman 04/12/2025 8:30 AM EST PACE Home Care / [place] [facility] [address] [place] [address] Marsyol Diaz 04/12/2025 12:00 PM EST PACE Home Care / [facility] [address] [place] [address] Natali Sanford 04/12/2025 5:30 PM EST PACE Home Care / [place] [facility] [address] [place] [address] Marysol Diaz 04/13/2025 8:30 AM EST PACE Home Care / [place] [facility] [address] [place] [address] Marysol Diaz 04/13/2025 12:00 PM EST PACE Home Care / [place] [facility] [address] [place] [phone] Natali Sanford 04/13/2025 4:30 PM EST PACE Home Care / [place] [facility] [address] [place] [phone] Marysol Diaz 04/13/2025 5:30 PM EST PACE Home Care / [facility] [facility] [address] [place] [phone] Marysol Diaz 04/14/2025 8:30 AM EST PACE Home Care / [facility] [address] [place] [address] Carmen Hartmann 04/14/2025 4:30 PM EST PACE Home Care / [facility] [address] [place] [address] Ashley Eastman 04/15/2025 8:30 AM EST PACE Home Care / [facility] [address] [place] [address] Carmen Hartmann 04/15/2025 11:00 AM EST [facility] [address] [place] [phone] Regulo Ivy, ALONSO [address] [address] Brigette East LPN 04/15/2025 4:30 PM EST PACE Home Care / [facility] [address] [place] [phone] Ashley Eastman 04/16/2025 8:30 AM EST PACE Home Care / [facility] [address] [place] [phone] Carmen Hartmann 04/16/2025 4:30 PM EST PACE Home Care / [facility] [address] [place] [phone] Ashley Eastman 04/17/2025 8:30 AM EST PACE Home Care / [place] [facility] [address] [place] [phone] Carmen Hartmann 04/17/2025 9:00 AM EST [facility] [place] [facility] [address] [place] [address] 04/17/2025 4:30 PM EST PACE Home Care / [place] [facility] [place] [facility] [address] [place] [phone] Ashley Eastman 04/18/2025 8:00 AM EST PACE Home Care / [place] [facility] [address] [place] [phone] Carmen Hartmann 04/18/2025 4:30 PM EST PACE Home Care / [place] [facility] [address] [place] [phone] Ashley Eastman 04/19/2025 12:00 PM EST PACE Home Care / [facility] [facility] [address] [place] [phone] Dena Chavez 04/20/2025 12:00 PM EST PACE Home Care / [place] [facility] [address] [place] [phone] Dena Chavez 04/21/2025 8:30 AM EST PACE Home Care / [place] [facility] [address] [place] [phone] Carmen Hartmann 04/21/2025 4:30 PM EST PACE Home Care / [facility] [facility] [address] [place] [address] Ashley Eastman 04/22/2025 8:30 AM EST PACE Home Care / [place] [facility] [address] [place] [phone] Carmen Hartmann 04/22/2025 4:30 PM EST PACE Home Care / [place] [facility] [address] [place] [phone] Ashley Eastman 04/23/2025 8:30 AM EST PACE Home Care / [place] [facility] [address] [place] [phone] Carmen Hartmann 04/23/2025 4:30 PM EST PACE Home Care / [place] [facility] [address] [place] [phone] Ashley Eastman 04/24/2025 8:30 AM EST PACE Home Care / [place] [facility] [address] [place] [address] Carmen Hartmann 04/24/2025 9:00 AM EST [facility] [facility] [place] [facility] [address] [place] [address] 04/24/2025 4:30 PM EST PACE Home Care / [place] [facility] [place] [facility] [address] [place] [phone] Ashley Eastman 04/25/2025 8:00 AM EST PACE Home Care / [place] [facility] [address] [place] [phone] Carmen Hartmann 04/25/2025 9:30 AM EST PACE Home Care / [place] [facility] [address] [place] [phone] Ralph Loyola 04/25/2025 4:30 PM EST PACE Home Care / [place] [facility] [address] [place] [phone] Ashley Eastman 04/26/2025 8:30 AM EST PACE Home Care / [place] [facility] [address] [place] [phone] Marysol Logan 04/26/2025 12:00 PM EST PACE Home Care / [facility] [facility] [address] [place] [phone] Natali Sanford 04/26/2025 5:30 PM EST PACE Home Care / [place] [facility] [address] [place] [phone] Marysol Diaz 04/27/2025 8:30 AM EST PACE Home Care / [place] [facility] [address] [place] [phone] Marysol Diaz 04/27/2025 12:00 PM EST PACE Home Care / [place] [facility] [address] [place] [phone] Natali Sanford 04/27/2025 4:30 PM EST PACE Home Care / [place] [facility] [address] [place] [phone] Marysol Diaz 04/27/2025 5:30 PM EST PACE Home Care / [facility] [facility] [address] [place] [phone] Marysol Diaz 04/28/2025 8:30 AM EST PACE Home Care / [place] [facility] [address] [place] [phone] Carmen Hartmann 04/28/2025 4:30 PM EST PACE Home Care / [facility] [address] [place] [phone] Ashley Eastman 04/29/2025 8:30 AM EST PACE Home Care / [facility] [address] [place] [phone] Carmen Hartmann 04/29/2025 4:30 PM EST PACE Home Care / [facility] [address] [place] [address] Ashley Eastman 04/30/2025 8:30 AM EST PACE Home Care / [facility] [address] [place] [address] Carmen Hartmann 04/30/2025 4:30 PM EST PACE Home Care / [facility] [address] [place] [address] Ashley Eastman 05/01/2025 8:30 AM EST PACE Home Care / [facility] [address] [place] [address] Carmen Hartmann 05/01/2025 9:00 AM EST [facility] [place] [facility] [address] [place] [address] 05/01/2025 11:30 AM EST [facility] [address] [place] [address] 05/01/2025 4:30 PM EST PACE Home Care / [facility] [address] [place] [address] Ashely Eastman 05/02/2025 8:00 AM EST PACE Home Care / [facility] [address] [place] [address] Carmen Hartmann 05/02/2025 9:30 AM EST PACE Home Care / [facility] Visit [facility] [address] [place] [address] Ralph Loyola 05/02/2025 4:30 PM EST PACE Home Care / [facility] [address] [place] [phone] Ashley Eastman 05/03/2025 12:00 PM EST PACE Home Care / [facility] [address] [place] [address] Dena Chavez 05/04/2025 12:00 PM EST PACE Home Care / [facility] [address] [place] [address] Dena Chavez 05/05/2025 8:30 AM EST PACE Home Care / [facility] [facility] [address] [place] [phone] Carmen Hartmann 05/05/2025 4:30 PM EST PACE Home Care / [facility] [address] [place] [phone] Ashley Eastman 05/06/2025 8:30 AM EST PACE Home Care / [facility] [address] [place] [phone] Carmen Hartmann 05/06/2025 4:30 PM EST PACE Home Care / [facility] [address] [place] [phone] Ashley Eastman 05/07/2025 8:30 AM EST PACE Home Care / [facility] [address] [place] [phone] Carmen Hartmann 05/07/2025 4:30 PM EST PACE Home Care / [facility] [address] [place] [phone] Ashley Eastman 05/08/2025 8:30 AM EST PACE Home Care / [facility] [address] [place] [address] Carmen Hartmann 05/08/2025 9:00 AM EST [facility] [facility] [place] [facility] [address] [place] [address] 05/08/2025 4:30 PM EST PACE Home Care / [place] [facility] [address] [place] [phone] Ashley Eastman 05/09/2025 8:00 AM EST PACE Home Care / [facility] [address] [place] [phone] Carmen Hartmann 05/09/2025 9:30 AM EST PACE Home Care / [facility] [address] [place] [phone] Ralph Loyola 05/09/2025 4:30 PM EST PACE Home Care / [facility] [address] [place] [phone] Ashley Eastman 05/10/2025 8:30 AM EST PACE Home Care / [facility] [address] [place] [phone] Marysol Diaz 05/10/2025 12:00 PM EST PACE Home Care / [facility] [address] [place] [phone] Natali Sanford 05/10/2025 5:30 PM EST PACE Home Care / [facility] [address] [place] [phone] Marysol Diaz 05/11/2025 8:30 AM EST PACE Home Care / [facility] [address] [place] [phone] Marysol Diaz 05/11/2025 12:00 PM EST PACE Home Care / [facility] [address] [place] [phone] Natali Sanford 05/11/2025 4:30 PM EST PACE Home Care / [facility] [address] [place] [phone] Marysol Diaz 05/11/2025 5:30 PM EST PACE Home Care / [facility] [address] [place] [phone] Marysol Diaz 05/12/2025 8:30 AM EST PACE Home Care / [facility] [address] [place] [phone] Carmen Hartmann 05/12/2025 4:30 PM EST PACE Home Care / [facility] [address] [place] [phone] Ashley Eastman 05/13/2025 8:30 AM EST PACE Home Care / [facility] [address] [place] [phone] Carmen Hartmann 05/13/2025 11:00 AM EST [facility] [address] [place] [phone] Regulo Ivy, ALONSO [address] [address] Brigette East LPN 05/13/2025 4:30 PM EST PACE Home Care / [facility] [address] [place] [phone] Ashley Eastman 05/14/2025 8:30 AM EST PACE Home Care / [facility] [address] [place] [address] Carmen Hartmann 05/14/2025 4:30 PM EST PACE Home Care / [facility] [address] [place] [address] Ashley Eastman 05/15/2025 8:30 AM EST PACE Home Care / [facility] [address] [place] [address] Carmen Hartmann 05/15/2025 9:00 AM EST [facility] [facility] [place] [facility] [address] [place] [address] 05/15/2025 4:30 PM EST PACE Home Care / [facility] [facility] [address] [place] [address] Ashley Eastman 05/16/2025 8:00 AM EST PACE Home Care / [facility] [address] [place] [address] Carmen Hartmann 05/16/2025 9:30 AM EST PACE Home Care / [facility] [address] [place] [address] Ralph Loyola 05/16/2025 4:30 PM EST PACE Home Care / [facility] [address] [place] [address] Ashley Eastman 05/17/2025 12:00 PM EST PACE Home Care / [facility] [address] [place] [address] Dena Chavez 05/18/2025 12:00 PM EST PACE Home Care / [facility] [address] [place] [address] Dena Chavez 05/19/2025 8:30 AM EST PACE Home Care / [facility] [address] [place] [address] Carmen Hartmann 05/19/2025 4:30 PM EST PACE Home Care / [facility] [address] [place] [address] Ashley Eastman 05/20/2025 8:30 AM EST PACE Home Care / [facility] [address] [place] [address] Carmen Hartmann 05/20/2025 4:30 PM EST PACE Home Care / [facility] [address] [place] [address] Ashley Eastman 05/21/2025 8:30 AM EST PACE Home Care / [facility] [address] [place] [phone] Carmen Hartmann 05/21/2025 4:30 PM EST PACE Home Care / [facility] [address] [place] [address] Ashley Esatman 05/22/2025 8:30 AM EST PACE Home Care / [facility] [place] [facility] [address] [place] [address] Carmen Hartmann 05/22/2025 9:00 AM EST [facility] [place] [facility] [address] [place] [address] 05/22/2025 4:30 PM EST PACE Home Care / [facility] [address] [place] [address] Ashley Eastman 05/23/2025 8:00 AM EST PACE Home Care / [facility] [address] [place] [address] Carmen Hartmann 05/23/2025 9:30 AM EST PACE Home Care / [facility] [address] [place] [address] Ralph Loyola 05/23/2025 4:30 PM EST PACE Home Care / [facility] [address] [place] [phone] Ashley Eastman 05/24/2025 8:30 AM EST PACE Home Care / [facility] [address] [place] [phone] Marysol Diaz 05/24/2025 12:00 PM EST PACE Home Care / [facility] [address] [place] [phone] Natali Sanford 05/24/2025 5:30 PM EST PACE Home Care / [facility] [address] [place] [phone] Marysol Diaz 05/25/2025 8:30 AM EST PACE Home Care / [facility] [address] [place] [phone] Marysol Diaz 05/25/2025 12:00 PM EST PACE Home Care / [facility] [address] [place] [phone] Natali Sanford 05/25/2025 4:30 PM EST PACE Home Care / [facility] [address] [place] [address] Marysol Diaz 05/25/2025 5:30 PM EST PACE Home Care / [facility] [address] [place] [address] Marysol Diaz 05/26/2025 8:30 AM EST PACE Home Care / [facility] [address] [place] [address] Carmen Hartmann 05/26/2025 4:30 PM EST PACE Home Care / [facility] [address] [place] [phone] Ashley Eastman 05/27/2025 8:30 AM EST P[facility] Home Care / [facility] [address] [place] [phone] Carmen Hartmann 05/27/2025 4:30 PM EST PACE Home Care / [facility] [address] [place] [phone] Ashley Eastman 05/28/2025 8:30 AM EST P[facility] Home Care / [facility] [address] [place] [phone] Carmen Hartmann 05/28/2025 4:30 PM EST P[facility] Home Care / [facility] [address] [place] [phone] Ashley Eastman 05/29/2025 8:30 AM EST P[facility] Home Care / [facility] [place] [facility] [address] [place] [phone] Carmen Hartmann 05/29/2025 9:00 AM EST [facility] [facility] [place] [facility] [address] [place] [phone] 05/29/2025 4:30 PM EST P[facility] Home Care / [facility] [address] [place] [phone] Ashley Eastman 05/30/2025 8:00 AM EST P[facility] Home Care / [facility] [place] [facility] [address] [place] [phone] Carmen Hartmann 05/30/2025 9:30 AM EST P[facility] Home Care / [facility] [place] [facility] [address] [place] [phone] Ralph Loyola 05/30/2025 4:30 PM EST P[facility] Home Care / [facility] [address] [place] [phone] Ashley Eastman 06/05/2025 9:00 AM EST [facility] [facility] [place] [facility] [address] [place] [phone] 06/10/2025 11:00 AM EST [facility] [address] [place] [phone] Michelle Castillo MD [address] [place] [address] Brigette East LPN 06/12/2025 9:00 AM EST [facility] [facility] [place] [facility] [address] [place] [phone] 06/19/2025 9:00 AM EST [facility] [facility] [place] [facility] [address] [place] [address] 06/26/2025 9:00 AM EDT [facility] [facility] [place] [facility] [address] [place] [phone] 06/27/2025 1:20 PM EDT Office Visit Gastroenterology - [address] [place] [address] Analisa Perez, ALONSO [address] [place] [address] 07/03/2025 9:00 AM EDT [facility] Attendance[facility] [facility] [place] [facility] [address] [place] [address] 07/10/2025 9:00 AM EDT [place] [facility] [place] [facility] [address] [place] [phone] 07/17/2025 9:00 AM EDT [facility] Attend[facility] [address] [place] [phone] 07/17/2025 3:30 PM EDT [facility] External Visit [facility] [address] [place] [phone] 07/24/2025 9:00 AM EDT [facility] Att[facility] [address] [place] [phone] 07/31/2025 9:00 AM EDT [facility] Att[facility] [address] [place] [phone] 08/07/2025 9:00 AM EDT [facility] Attend[facility] [place] [facility] [address] [place] [phone] 08/14/2025 9:00 AM EDT [facility] Att[facility] [address] [place] [phone] 08/21/2025 9:00 AM EDT [facility] Att[facility] [address] [place] [phone] 08/28/2025 9:00 AM EDT [facility] Att[facility] [address] [place] [phone] 09/04/2025 9:00 AM EDT [facility] Att[facility] [address] [place] [phone] 09/11/2025 9:00 AM EDT [facility] [address] [place] [phone] 09/18/2025 9:00 AM EDT [facility] [address] [place] [phone] 09/25/2025 9:00 AM EDT [facility] [address] [place] [phone] 10/02/2025 9:00 AM EDT [facility] [address] [place] [phone] 10/09/2025 9:00 AM EDT [facility] [address] [place] [phone] documented as of this encounter Visit Diagnoses Not on filedocumented in this encounter Care Teams Director Digital Catalogue Relationship Specialty Start Date End Date Regulo Ivy NP [address] [place] [id number] PCP - General [facility] 06/07/24 documented as of this encounter
--- OUTSIDE RECORDS SUMMARY | 2025-03-30 08:30 | XMS_ITS | Encounter Summary ---
Author Organization [facility] Address [address] [place] [address] Care Team Providers Care Trauma Manager Name Role Phone Regulo Ivy NP Primary Care Provider [phone] Encounter Details Date Type Department Care Team (Late st Contact Info) Description 03/30/2025 8:30 AM EST PACE Home Care / PACE Home Visit [facility] [address] [place] [address] Marysol Diaz Social History Tobacco [...] for your loved ones. For example, children's zoo caretaker or elderly care for an older adult? [...] [place] [facility] [address] [place] [phone] Carmen Hartmann 04/02/2025 4:30 PM EST PACE Home Care / [facility] [place] [facility] [address] [place] [phone] Ashley Eastman 04/03/2025 8:30 AM EST PACE Home Care / [facility] [facility] [place] [facility] [address] [place] [phone] Carmen Hartmann 04/03/2025 9:00 AM EST [facility] [place] [facility] [address] [place] [address] 04/03/2025 4:30 PM EST PACE Home Care / [facility] [place] [facility] [address] [place] [address] Ashley Eastman 04/04/2025 [facility] [address] [place] [address] Regulo Ivy, ALONSO [address] [address] Constipation, unspecified constipation type 04/04/2025 8:00 AM EST PACE Home Care / [facility] [place] [facility] [address] [place] [phone] Titi Thomas 04/04/2025 8:30 AM EST PACE Home Care / [facility] [place] [facility] [address] [place] [phone] Marysol Diaz 04/04/2025 4:30 PM EST PACE Home Care / [facility] [address] [place] [phone] Ashley Eastman 04/05/2025 12:00 PM EST PACE Home Care / [facility] [place] [facility] [address] [place] [phone] Dena Chavez 04/06/2025 12:00 PM EST PACE Home Care / [facility] [place] [facility] [address] [place] [phone] Dena Chavez 2025 8:30 AM EST PACE Home Care / [facility] [address] [place] [phone] Carmen Hartmann 2025 4:30 PM EST PACE Home Care / [facility] [place] [facility] [address] [place] [address] Ashley Eastman 04/08/2025 8:30 AM EST PACE Home Care / [facility] [place] [facility] [address] [place] [address] Carmen Hartmann 04/08/2025 4:30 PM EST PACE Home Care / [facility] Home Visit [facility] [place] [facility] [address] [place] [address] Ashley Eastman 04/09/2025 8:30 AM EST PACE Home Care / [facility] Home Visit [facility] [place] [facility] [address] [place] [address] Carmen Hartmann 04/09/2025 4:30 PM EST PACE Home Care / [facility] [place] [facility] [address] [place] [phone] Ashley Eastman 04/10/2025 6:05 AM EST PACE Home Care / [facility] [facility] [place] [facility] [address] [place] [phone] Jackeline Mcrae 04/10/2025 9:00 AM EST [facility] [facility] [place] [facility] [address] [place] [address] 04/10/2025 4:30 PM EST PACE Home Care / [facility] [facility] [place] [facility] [address] [place] [phone] Ashley Eastman 04/11/2025 8:00 AM EST PACE Home Care / [facility] [facility] [place] [facility] [address] [place] [phone] Carmen Hartmann 04/11/2025 9:30 AM EST PACE Home Care / [facility] [facility] [place] [facility] [address] [place] [address] Carmen Hartmann 04/11/2025 4:30 PM EST PACE Home Care / [facility] Home [facility] [place] [facility] [address] [place] [address] Ashley Eastman 04/12/2025 8:30 AM EST PACE Home Care / [facility] Home Visit [facility] [place] [facility] [address] [place] [address] Marysol Diaz 04/12/2025 12:00 PM EST PACE Home Care / [facility] Home Visit [facility] [place] [facility] [address] [place] [address] Natali Sanford 04/12/2025 5:30 PM EST PACE Home Care / [facility] Home [facility] [place] [facility] [address] [place] [address] Marysol Diaz 04/13/2025 8:30 AM EST PACE Home Care / [facility] Home [facility] [place] [facility] [address] [place] [address] Marysol Diaz 04/13/2025 12:00 PM EST PACE Home Care / [place] [facility] [place] [facility] [address] [place] [phone] Natali Sanford 04/13/2025 4:30 PM EST PACE Home Care / [facility] [facility] [place] [facility] [address] [place] [phone] Marysol Diaz 04/13/2025 5:30 PM EST PACE Home Care / [facility] [facility] [place] [facility] [address] [place] [phone] Marysol Diaz 04/14/2025 8:30 AM EST PACE Home Care / [facility] Home Visit [facility] [place] [facility] [address] [place] [address] Carmen Hartmann 04/14/2025 4:30 PM EST PACE Home Care / [facility] [address] [place] [address] Ashley Eastman 04/15/2025 8:30 AM EST PACE Home Care / [facility] [address] [place] [address] Carmen Hartmann 04/15/2025 11:00 AM EST [facility] [address] [place] [phone] Regulo Ivy, ALONSO [address] [address] Brigette East LPN 04/15/2025 4:30 PM EST PACE Home Care / [facility] [address] [place] [phone] Ashley Eastman 04/16/2025 8:30 AM EST PACE Home Care / [facility] [address] [place] [phone] Carmen Hartmann 04/16/2025 4:30 PM EST PACE Home Care / [facility] [place] [facility] [address] [place] [phone] Ashley Eastman 04/17/2025 8:30 AM EST PACE Home Care / [facility] [facility] [place] [facility] [address] [place] [phone] Carmen Hartmann 04/17/2025 9:00 AM EST [facility] [place] [facility] [address] [place] [address] 04/17/2025 4:30 PM EST PACE Home Care / [facility] [facility] [place] [facility] [address] [place] [phone] Ashley Eastman 04/18/2025 8:00 AM EST P[facility] Home Care / [facility] [facility] [place] [facility] [address] [place] [phone] Carmen Hartmann 04/18/2025 4:30 PM EST PACE Home Care / [facility] [place] [facility] [address] [place] [phone] Ashley Eastman 04/19/2025 12:00 PM EST PACE Home Care / [facility] [place] [facility] [address] [place] [phone] Dena Chavez 04/20/2025 12:00 PM EST PACE Home Care / [facility] [facility] [place] [facility] [address] [place] [phone] Dena Chavez 04/21/2025 8:30 AM EST PACE Home Care / [facility] [facility] [place] [facility] [address] [place] [phone] Carmen Hartmann 04/21/2025 4:30 PM EST PACE Home Care / [facility] [facility] [place] [facility] [address] [place] [phone] Ashley Eastman 04/22/2025 8:30 AM EST PACE Home Care / [facility] [facility] [place] [facility] [address] [place] [phone] Carmen Hartmann 04/22/2025 4:30 PM EST PACE Home Care / [facility] [facility] [place] [facility] [address] [place] [phone] Ashley Eastman 04/23/2025 8:30 AM EST PACE Home Care / [facility] [facility] [place] [facility] [address] [place] [phone] Carmen Hartmann 04/23/2025 4:30 PM EST PACE Home Care / [facility] [facility] [place] [facility] [address] [place] [phone] Ashley Eastman 04/24/2025 8:30 AM EST PACE Home Care / [facility] [facility] Visit [facility] [place] [facility] [address] [place] [address] Carmen Hartmann 04/24/2025 9:00 AM EST [facility] [facility] [place] [facility] [address] [place] [phone] 04/24/2025 4:30 PM EST PACE Home Care / [facility] [place] [facility] [address] [place] [phone] Ashley Eastman 04/25/2025 8:00 AM EST PACE Home Care / [facility] [place] [facility] [address] [place] [phone] Carmen Hartmann 04/25/2025 9:30 AM EST PACE Home Care / [facility] [facility] [place] [facility] [address] [place] [phone] Ralph Loyola 04/25/2025 4:30 PM EST PACE Home Care / [facility] [facility] Visit [facility] [place] [facility] [address] [place] [phone] Ashley Eastman 04/26/2025 8:30 AM EST PACE Home Care / [facility] [place] [facility] [address] [place] [phone] Marysol Logan 04/26/2025 12:00 PM EST PACE Home Care / [facility] [facility] [place] [facility] [address] [place] [phone] Natali Sanford 04/26/2025 5:30 PM EST PACE Home Care / [place] [facility] [place] [facility] [address] [place] [phone] Marysol Diaz 04/27/2025 8:30 AM EST PACE Home Care / [facility] [facility] [place] [facility] [address] [place] [phone] Marysol Diaz 04/27/2025 12:00 PM EST PACE Home Care / [facility] [place] [facility] [address] [place] [phone] Natali Sanford 04/27/2025 4:30 PM EST PACE Home Care / [facility] [place] [facility] [address] [place] [phone] Marysol Diaz 04/27/2025 5:30 PM EST PACE Home Care / [facility] [place] [facility] [address] [place] [phone] Marysol Diaz 04/28/2025 8:30 AM EST PACE Home Care / [facility] [place] [facility] [address] [place] [phone] Carmen Hartmann 04/28/2025 4:30 PM EST PACE Home Care / [facility] [place] [facility] [address] [place] [phone] Ashley Eastman 04/29/2025 8:30 AM EST PACE Home Care / [facility] [address] [place] [phone] Carmen Hartmann 04/29/2025 4:30 PM EST PACE Home Care / [facility] [address] [place] [address] Ashley Eastman 04/30/2025 8:30 AM EST PACE Home Care / [facility] [address] [place] [address] Carmen Hartmann 04/30/2025 4:30 PM EST PACE Home Care / [facility] [place] [facility] [address] [place] [address] Ashley Eastman 05/01/2025 8:30 AM EST PACE Home Care / [facility] [address] [place] [address] Cramen Hartmann 05/01/2025 9:00 AM EST [facility] [place] [facility] [address] [place] [address] 05/01/2025 11:30 AM EST Clinical Support [facility] [place] [address] [place] [address] 05/01/2025 4:30 PM EST PACE Home Care / [facility] [address] [place] [address] Ashley Eastman 05/02/2025 8:00 AM EST PACE Home Care / [facility] Visit [facility] [address] [place] [address] Carmen Hartmann 05/02/2025 9:30 AM EST PACE Home Care / P[facility] Visit [facility] [address] [place] [address] Ralph Loyola 05/02/2025 4:30 PM EST PACE Home Care / [facility] [address] [place] [phone] Ashley Eastman 05/03/2025 12:00 PM EST PACE Home Care / [facility] Visit [facility] [address] [place] [address] Dena Chavez 05/04/2025 12:00 PM EST PACE Home Care / [facility] Visit [facility] [place] [facility] [address] [place] [address] Dena Chavez 05/05/2025 8:30 AM EST PACE Home Care / [facility] [address] [place] [phone] Carmen Hartmann 05/05/2025 4:30 PM EST PACE Home Care / [facility] [address] [place] [phone] Ashley Eastman 05/06/2025 8:30 AM EST PACE Home Care / [facility] [address] [place] [phone] Carmen Hartmann 05/06/2025 4:30 PM EST PACE Home Care / [facility] [address] [place] [phone] Ashley Eastman 05/07/2025 8:30 AM EST PACE Home Care / [facility] [address] [place] [phone] Carmen Hartmann 05/07/2025 4:30 PM EST PACE Home Care / [facility] [address] [place] [phone] Ashley Eastman 05/08/2025 8:30 AM EST PACE Home Care / [facility] [place] [facility] [address] [place] [address] Carmen Hartmann 05/08/2025 9:00 AM EST [facility] [facility] [facility] [place] [facility] [address] [place] [address] 05/08/2025 4:30 PM EST PACE Home Care / [facility] [address] [place] [phone] Ashley Eastman 05/09/2025 8:00 AM EST PACE Home Care / [facility] [address] [place] [phone] Carmen Hartmann 05/09/2025 9:30 AM EST PACE Home Care / [facility] [address] [place] [phone] Ralph Loyola 05/09/2025 4:30 PM EST PACE Home Care / [facility] [address] [place] [phone] Ashley Eastman 05/10/2025 8:30 AM EST PACE Home Care / [facility] [address] [place] [phone] Marysol Diaz 05/10/2025 12:00 PM EST PACE Home Care / [facility] [address] [place] [phone] Natali Sanford 05/10/2025 5:30 PM EST PACE Home Care / [facility] [place] [facility] [address] [place] [phone] Marysol Diaz 05/11/2025 8:30 AM EST PACE Home Care / [facility] [place] [facility] [address] [place] [phone] Marysol Diaz 05/11/2025 12:00 PM EST PACE Home Care / [facility] [place] [facility] [address] [place] [phone] Natali Sanford 05/11/2025 4:30 PM EST PACE Home Care / [facility] [place] [facility] [address] [place] [phone] Marysol Diaz 05/11/2025 5:30 PM EST PACE Home Care / [facility] [place] [facility] [address] [place] [phone] Marysol Diaz 05/12/2025 8:30 AM EST PACE Home Care / [facility] [place] [facility] [address] [place] [phone] Carmen Hartmann 05/12/2025 4:30 PM EST PACE Home Care / [facility] [place] [facility] [address] [place] [phone] Aslhey Eastman 05/13/2025 8:30 AM EST PACE Home Care / [facility] Visit [facility] [place] [facility] [address] [place] [phone] Carmen Hartmann 05/13/2025 11:00 AM EST [facility] Visit [facility] [place] [facility] [address] [place] [phone] Regulo Ivy, ALONSO [address] [address] Brigette East LPN 05/13/2025 4:30 PM EST PACE Home Care / [facility] [address] [place] [phone] Ashley Eastman 05/14/2025 8:30 AM EST PACE Home Care / [facility] [place] [facility] [address] [place] [address] Carmen Hartmann 05/14/2025 4:30 PM EST PACE Home Care / [facility] Visit [facility] [place] [facility] [address] [place] [address] Ashley Eastman 05/15/2025 8:30 AM EST PACE Home Care / [facility] [facility] Visit [facility] [place] [facility] [address] [place] [address] Carmen Hartmann 05/15/2025 9:00 AM EST [facility] [facility] [place] [facility] [address] [place] [address] 05/15/2025 4:30 PM EST PACE Home Care / [facility] [place] [facility] [address] [place] [address] Ashley Eastman 05/16/2025 8:00 AM EST PACE Home Care / [facility] [place] [facility] [address] [place] [address] Carmen Hartmann 05/16/2025 9:30 AM EST PACE Home Care / [facility] [address] [place] [address] Ralph Loyola 05/16/2025 4:30 PM EST PACE Home Care / [facility] [address] [place] [address] Ashley Eastman 05/17/2025 12:00 PM EST PACE Home Care / [facility] [address] [place] [address] Dena Chavez 05/18/2025 12:00 PM EST PACE Home Care / [facility] [address] [place] [address] Dena Chavez 05/19/2025 8:30 AM EST PACE Home Care / [facility] [address] [place] [address] Carmen Hartmann 05/19/2025 4:30 PM EST PACE Home Care / [facility] [address] [place] [address] Ashley Eastman 05/20/2025 8:30 AM EST PACE Home Care / [facility] [address] [place] [address] Carmen Hartmann 05/20/2025 4:30 PM EST PACE Home Care / [facility] [place] [facility] [address] [place] [address] Ashley Eastman 05/21/2025 8:30 AM EST PACE Home Care / [facility] [address] [place] [phone] Carmen Hartmann 05/21/2025 4:30 PM EST PACE Home Care / [facility] [place] [facility] [address] [place] [phone] Ashley Eastman 05/22/2025 8:30 AM EST P[facility] Home Care / [facility] [place] [facility] [address] [place] [address] Carmen Hartmann 05/22/2025 9:00 AM EST [facility] [place] [facility] [address] [place] [address] 05/22/2025 4:30 PM EST P[facility] Home Care / [facility] [place] [facility] [address] [place] [address] Ashley Eastman 05/23/2025 8:00 AM EST P[facility] Home Care / [facility] [address] [place] [address] Carmen Hartmann 05/23/2025 9:30 AM EST P[facility] Home Care / [facility] [address] [place] [address] Ralph Loyola 05/23/2025 4:30 PM EST PACE Home Care / [facility] [address] [place] [phone] Ashley Eastman 05/24/2025 8:30 AM EST P[facility] Home Care / [facility] [address] [place] [phone] Marysol Diaz 05/24/2025 12:00 PM EST P[facility] Home Care / [facility] [address] [place] [phone] Natali Sanford 05/24/2025 5:30 PM EST P[facility] Home Care / [facility] [address] [place] [phone] Marysol iDaz 05/25/2025 8:30 AM EST P[facility] Home Care / [facility] [place] [facility] [address] [place] [phone] Marysol Diaz 05/25/2025 12:00 PM EST P[facility] Home Care / [facility] [place] [facility] [address] [place] [phone] Natali Sanford 05/25/2025 4:30 PM EST P[facility] Home Care / [facility] [place] [facility] [address] [place] [address] Marysol Diaz 05/25/2025 5:30 PM EST P[facility] Home Care / [facility] [place] [facility] [address] [place] [address] Marysol Diaz 05/26/2025 8:30 AM EST P[facility] Home Care / [facility] [place] [facility] [address] [place] [address] Carmen Hartmnan 05/26/2025 4:30 PM EST P[facility] Home Care / [facility] [address] [place] [phone] Ashley Eastman 05/27/2025 8:30 AM EST P[facility] Home Care / [facility] [place] [facility] [address] [place] [phone] Carmen Hartmann 05/27/2025 4:30 PM EST P[facility] Home Care / [facility] [place] [facility] [address] [place] [phone] Ashley Eastman 05/28/2025 8:30 AM EST P[facility] Home Care / [facility] [place] [facility] [address] [place] [phone] Carmen Hartmann 05/28/2025 4:30 PM EST P[facility] Home Care / [facility] [place] [facility] [address] [place] [phone] Ashley Eastman 05/29/2025 8:30 AM EST P[facility] Home Care / [facility] [place] [facility] [address] [place] [phone] Carmen Hartmann 05/29/2025 9:00 AM EST [facility] [facility] [place] [facility] [address] [place] [phone] 05/29/2025 4:30 PM EST P[facility] Home Care / [facility] [address] [place] [phone] Ashley Eastman 05/30/2025 8:00 AM EST P[facility] Home Care / [facility] [place] [facility] [address] [place] [phone] Carmen Hartmann 05/30/2025 9:30 AM EST P[facility] Home Care / [facility] [place] [facility] [address] [place] [phone] Ralph Loyola 05/30/2025 4:30 PM EST P[facility] Home [facility] / [facility] [place] [facility] [address] [place] [phone] Ashley Eastman 06/05/2025 9:00 AM EST [facility] [facility] [place] [facility] [address] [place] [phone] 06/10/2025 11:00 AM EST [facility] [place] [facility] [address] [place] [phone] Michelle Castillo MD [address] [place] [address] Brigette East LPN 06/12/2025 9:00 AM EST [facility] [facility] [place] [facility] [address] [place] [phone] 06/19/2025 9:00 AM EST [facility] [facility] [place] [facility] [address] [place] [phone] 06/26/2025 9:00 AM EDT PACE Attendance/Day [facility] [place] [facility] [address] [place] [phone] 06/27/2025 1:20 PM EDT Office Visit Gastroenterology - [address] [place] [phone] Analisa Perez, ALONSO [address] [place] [address] 07/03/2025 9:00 AM EDT [facility] Attendance/[facility] [place] [facility] [address] [place] [phone] 07/10/2025 9:00 AM EDT [facility] Attendance/[facility] [place] [facility] [address] [place] [phone] 07/17/2025 9:00 AM EDT [facility] Attendance/[place] [facility] [place] [facility] [address] [place] [phone] 07/17/2025 3:30 PM EDT PACE External Visit [facility] [address] [place] [phone] 07/24/2025 9:00 AM EDT [facility] Attendance/[place] [facility] [place] [facility] [address] [place] [phone] 07/31/2025 9:00 AM EDT [facility] Attendance[place] [facility] [place] [facility] [address] [place] [phone] 08/07/2025 9:00 AM EDT [facility] Attendance/[place] [facility] [place] [facility] [address] [place] [phone] 08/14/2025 9:00 AM EDT [facility] Attendance/[facility] [place] [facility] [address] [place] [phone] 08/21/2025 9:00 AM EDT [facility] Attendance/[facility] [place] [facility] [address] [place] [phone] 08/28/2025 9:00 AM EDT [facility] Attendance/[facility] [place] [facility] [address] [place] [phone] 09/04/2025 9:00 AM EDT PACE Attendance/Day Center [facility] [address] [place] [phone] 09/11/2025 9:00 AM EDT PACE Attendance/Day Center [facility] [place] [facility] [address] [place] [phone] 09/18/2025 9:00 AM EDT PACE Attendance/[facility] [address] [place] [phone] 09/25/2025 9:00 AM EDT PACE Attendance/[facility] [place] [facility] [address] [place] [phone] 10/02/2025 9:00 AM EDT PACE Attendance/[facility] [place] [facility] [address] [place] [phone] 10/09/2025 9:00 AM EDT PACE Attendance/[facility] [place] [facility] [address] [place] [phone] documented as of this encounter Visit Diagnoses Not on filedocumented in this encounter Care Teams Trauma Manager Relationship Specialty Start Date End Date Regulo Ivy NP [address] [place] [phone] PCP - General PACE 06/07/24 documented as of this encounter
--- OUTSIDE RECORDS SUMMARY | 2025-03-30 16:30 | XMS_ITS | Encounter Summary ---
Author Organization [facility] Address [address] [place] [address] Care Team Providers Care Commercial Credit Portfolio Manager Name Role Phone Regulo Ivy NP Primary Care Provider [phone] Encounter Details Date Type Department Care Team (Late st Contact Info) Description 03/30/2025 4:30 PM EST PACE Home Care / PACE Home Visit [facility] In [facility] Nursing and Aide Services [address] [place] [address] Marysol Diaz Social History Tobacco [...] [place] In [facility] [address] [place] [phone] Carmen Hartmann 04/02/2025 4:30 PM EST PACE Home Care / [place] [facility] Visit [facility] [place] [facility] [address] [place] [phone] Ashley Eastman 04/03/2025 8:30 AM EST PACE Home Care / [place] Home Visit [facility] [place] [facility] [address] [place] [phone] Carmen Hartmann 04/03/2025 9:00 AM EST [facility] [place] [facility] [address] [place] [address] 04/03/2025 4:30 PM EST PACE Home Care / [facility] [place] [facility] [address] [place] [address] Ashley Eastman 04/04/2025 [facility] [address] [place] [address] Regulo Ivy, ALONSO [address] [address] Constipation, unspecified constipation type 04/04/2025 8:00 AM EST PACE Home Care / [facility] [place] [facility] [address] [place] [phone] Titi Thomas 04/04/2025 8:30 AM EST PACE Home Care / [facility] Visit [facility] [place] [facility] [address] [place] [phone] Marysol Diaz 04/04/2025 4:30 PM EST PACE Home Care / [facility] Visit [facility] [place] [facility] [address] [place] [phone] Ashley Eastman 04/05/2025 12:00 PM EST PACE Home Care / [facility] [place] [facility] [address] [place] [phone] Dena Chavez 04/06/2025 12:00 PM EST PACE Home Care / [facility] [place] [facility] [address] [place] [phone] Dena Chavez 2025 8:30 AM EST PACE Home Care / [facility] [place] [facility] [address] [place] [phone] Carmen Hartmann 2025 4:30 PM EST PACE Home Care / [facility] Visit [facility] [place] [facility] [address] [place] [address] Ashley Eastman 04/08/2025 8:30 AM EST PACE Home Care / [facility] Home Visit [facility] [place] [facility] [address] [place] [address] Carmen Hartmann 04/08/2025 4:30 PM EST PACE Home Care / [facility] Home Visit [facility] [place] [facility] [address] [place] [address] Ashley Eastman 04/09/2025 8:30 AM EST PACE Home Care / [facility] Home Visit [facility] [place] [facility] [address] [place] [address] Carmen Hartmann 04/09/2025 4:30 PM EST PACE Home Care / [facility] Home Visit [facility] [place] [facility] [address] [place] [phone] Ashley Eastman 04/10/2025 6:05 AM EST PACE Home Care / [place] Home Visit [facility] [place] [facility] [address] [place] [phone] Jackeline Mcrae 04/10/2025 9:00 AM EST [facility] [facility] [place] [facility] [address] [place] [address] 04/10/2025 4:30 PM EST PACE Home Care / [place] Home Visit [facility] [place] [facility] [address] [place] [phone] Ashley Eastman 04/11/2025 8:00 AM EST PACE Home Care / [place] Home Visit [facility] [place] [facility] [address] [place] [phone] Carmen Hartmann 04/11/2025 9:30 AM EST PACE Home Care / [facility] Home Visit [facility] [place] [facility] [address] [place] [address] Carmen Hartmann 04/11/2025 4:30 PM EST PACE Home Care / [facility] Home Visit [facility] [place] [facility] [address] [place] [address] Ashley Eastman 04/12/2025 8:30 AM EST PACE Home Care / [facility] Home Visit [facility] [place] [facility] [address] [place] [address] Marysol Diaz 04/12/2025 12:00 PM EST PACE Home Care / [facility] Home Visit [facility] [place] [facility] [address] [place] [address] Natali Sanford 04/12/2025 5:30 PM EST PACE Home Care / [facility] Home Visit [facility] [place] [facility] [address] [place] [address] Marysol Diaz 04/13/2025 8:30 AM EST PACE Home Care / [place] Home Visit [facility] [place] [facility] [address] [place] [address] Marysol Diaz 04/13/2025 12:00 PM EST PACE Home Care / [place] Home Visit [facility] [place] [facility] [address] [place] [phone] Natali Sanford 04/13/2025 4:30 PM EST PACE Home Care / [place] Home Visit [facility] [place] [facility] [address] [place] [phone] Marysol Diaz 04/13/2025 5:30 PM EST PACE Home Care / [facility] Home Visit [facility] [place] [facility] [address] [place] [phone] Marysol Diaz 04/14/2025 8:30 AM EST PACE Home Care / [facility] Home Visit [facility] [place] [facility] [address] [place] [address] Carmen Hartmann 04/14/2025 4:30 PM EST PACE Home Care / [facility] [place] [facility] [address] [place] [address] Ashley Eastman 04/15/2025 8:30 AM EST PACE Home Care / [facility] [place] [facility] [address] [place] [address] Carmen Hartmann 04/15/2025 11:00 AM EST [facility] [place] [facility] [address] [place] [phone] Regulo Ivy, ALONSO [address] [address] Brigette East LPN 04/15/2025 4:30 PM EST PACE Home Care / [facility] Visit [facility] [place] [facility] [address] [place] [phone] Ashley Eastman 04/16/2025 8:30 AM EST PACE Home Care / [facility] [place] [facility] [address] [place] [phone] Carmen Hartmann 04/16/2025 4:30 PM EST PACE Home Care / [facility] [facility] Visit [facility] [place] [facility] [address] [place] [phone] Ashley Eastman 04/17/2025 8:30 AM EST PACE Home Care / [place] [facility] Visit [facility] [place] [facility] [address] [place] [phone] Carmen Hartmann 04/17/2025 9:00 AM EST [facility] [place] [facility] [address] [place] [address] 04/17/2025 4:30 PM EST PACE Home Care / [place] [facility] Visit [facility] [place] [facility] [address] [place] [phone] Ashley Eastman 04/18/2025 8:00 AM EST PACE Home Care / [facility] Home Visit [facility] [place] [facility] [address] [place] [phone] Carmen Hartmann 04/18/2025 4:30 PM EST PACE Home Care / [facility] [facility] Visit [facility] [place] [facility] [address] [place] [phone] Ashley Eastman 04/19/2025 12:00 PM EST PACE Home Care / [place] [facility] Visit [facility] [place] [facility] [address] [place] [phone] Dena Chavez 04/20/2025 12:00 PM EST PACE Home Care / [place] [facility] Visit [facility] [place] [facility] [address] [place] [phone] Dena Chavez 04/21/2025 8:30 AM EST PACE Home Care / [place] Home Visit [facility] [place] [facility] [address] [place] [phone] Carmen Hartmann 04/21/2025 4:30 PM EST PACE Home Care / [facility] [facility] Visit [facility] [place] [facility] [address] [place] [phone] Ashley Eastman 04/22/2025 8:30 AM EST PACE Home Care / [place] [facility] Visit [facility] [place] [facility] [address] [place] [phone] Carmen Hartmann 04/22/2025 4:30 PM EST PACE Home Care / [place] [facility] Visit [facility] [place] [facility] [address] [place] [phone] Ashley Eastman 04/23/2025 8:30 AM EST PACE Home Care / [facility] Home Visit [facility] [place] [facility] [address] [place] [phone] Carmen Hartmann 04/23/2025 4:30 PM EST PACE Home Care / [place] Home Visit [facility] [place] [facility] [address] [place] [phone] Ashley Eastman 04/24/2025 8:30 AM EST PACE Home Care / [place] Home Visit [facility] [place] [facility] [address] [place] [address] Carmen Hartmann 04/24/2025 9:00 AM EST [facility] [facility] [place] [facility] [address] [place] [phone] 04/24/2025 4:30 PM EST PACE Home Care / [facility] [facility] [place] [facility] [address] [place] [phone] Ashley Eastman 04/25/2025 8:00 AM EST PACE Home Care / [place] Home Visit [facility] [place] [facility] [address] [place] [phone] Carmen Hartmann 04/25/2025 9:30 AM EST PACE Home Care / [place] [facility] [place] [facility] [address] [place] [phone] Ralph Loyola 04/25/2025 4:30 PM EST PACE Home Care / [place] Home Visit [facility] [place] [facility] [address] [place] [phone] Ashley Eastman 04/26/2025 8:30 AM EST PACE Home Care / [place] [facility] Visit [facility] [place] [facility] [address] [place] [phone] Marysol Logan 04/26/2025 12:00 PM EST PACE Home Care / [place] [facility] Visit [facility] [place] [facility] [address] [place] [phone] Natali Sanford 04/26/2025 5:30 PM EST PACE Home Care / [place] [facility] Visit [facility] [place] [facility] [address] [place] [phone] Marysol Diaz 04/27/2025 8:30 AM EST PACE Home Care / [facility] [facility] Visit [facility] [place] [facility] [address] [place] [phone] Marysol Diaz 04/27/2025 12:00 PM EST PACE Home Care / [facility] [facility] Visit [facility] [place] [facility] [address] [place] [phone] Natali Sanford 04/27/2025 4:30 PM EST PACE Home Care / [place] [facility] [place] [facility] [address] [place] [phone] Marysol Diaz 04/27/2025 5:30 PM EST PACE Home Care / [facility] [facility] Visit [facility] [place] [facility] [address] [place] [phone] Marysol Diaz 04/28/2025 8:30 AM EST PACE Home Care / [facility] [facility] Visit [facility] [place] [facility] [address] [place] [phone] Carmen Hartmann 04/28/2025 4:30 PM EST PACE Home Care / [facility] Visit [facility] [place] [facility] [address] [place] [phone] Ashley Eastman 04/29/2025 8:30 AM EST PACE Home Care / [facility] [facility] [place] [facility] [address] [place] [phone] Carmen Hartmann 04/29/2025 4:30 PM EST PACE Home Care / [facility] [address] [place] [address] Ashley Eastman 04/30/2025 8:30 AM EST PACE Home Care / [facility] [place] [facility] [address] [place] [address] Carmen Hartmann 04/30/2025 4:30 PM EST PACE Home Care / [facility] Visit [facility] [place] [facility] [address] [place] [address] Ashley Eastman 05/01/2025 8:30 AM EST PACE Home Care / [facility] Visit [facility] [place] [facility] [address] [place] [address] Carmen Hartmann 05/01/2025 9:00 AM EST [facility] [place] [facility] [address] [place] [address] 05/01/2025 11:30 AM EST [facility] Support [facility] [place] [address] [place] [address] 05/01/2025 4:30 PM EST PACE Home Care / P[facility] [address] [place] [address] Ashley Eastman 05/02/2025 8:00 AM EST PACE Home Care / P[facility] Visit [facility] [place] [facility] [address] [place] [address] Carmen Hartmann 05/02/2025 9:30 AM EST PACE Home Care / PACE Home Visit [facility] [place] [facility] [address] [place] [address] Ralph Loyola 05/02/2025 4:30 PM EST PACE Home Care / [facility] [address] [place] [phone] Ashley Eastman 05/03/2025 12:00 PM EST PACE Home Care / [facility] Home Visit [facility] [place] [facility] [address] [place] [address] Dena Chavez 05/04/2025 12:00 PM EST PACE Home Care / [facility] Home Visit [facility] [place] [facility] [address] [place] [address] Dena Chavez 05/05/2025 8:30 AM EST PACE Home Care / [facility] Visit [facility] [place] [facility] [address] [place] [phone] Carmen Hartmann 05/05/2025 4:30 PM EST PACE Home Care / [facility] Visit [facility] [place] [facility] [address] [place] [phone] Ashley Eastman 05/06/2025 8:30 AM EST PACE Home Care / [facility] Visit [facility] [place] [facility] [address] [place] [phone] Carmen Hartmann 05/06/2025 4:30 PM EST PACE Home Care / [facility] [place] [facility] [address] [place] [phone] Ashley Eastman 05/07/2025 8:30 AM EST PACE Home Care / [facility] [place] [facility] [address] [place] [phone] Carmen Hartmann 05/07/2025 4:30 PM EST PACE Home Care / [facility] [place] [facility] [address] [place] [phone] Ashley Eastman 05/08/2025 8:30 AM EST PACE Home Care / [facility] [place] [facility] [address] [place] [address] Carmen Hartmann 05/08/2025 9:00 AM EST [facility] [facility] [place] [facility] [address] [place] [address] 05/08/2025 4:30 PM EST PACE Home Care / [facility] [place] [facility] [address] [place] [phone] Ashley Eastman 05/09/2025 8:00 AM EST PACE Home Care / [facility] [place] [facility] [address] [place] [phone] Carmen Hartmann 05/09/2025 9:30 AM EST PACE Home Care / [facility] [place] [facility] [address] [place] [phone] Ralph Loyola 05/09/2025 4:30 PM EST PACE Home Care / [facility] [place] [facility] [address] [place] [phone] Ashley Eastman 05/10/2025 8:30 AM EST PACE Home Care / [facility] [place] [facility] [address] [place] [phone] Marysol Diaz 05/10/2025 12:00 PM EST PACE Home Care / [facility] [place] [facility] [address] [place] [phone] Natali Sanford 05/10/2025 5:30 PM EST PACE Home Care / [facility] [place] [facility] [address] [place] [phone] Marysol Diaz 05/11/2025 8:30 AM EST PACE Home Care / [facility] [place] [facility] [address] [place] [phone] Marysol Diaz 05/11/2025 12:00 PM EST PACE Home Care / [facility] [place] [facility] [address] [place] [phone] Natali Sanford 05/11/2025 4:30 PM EST PACE Home Care / [facility] [place] [facility] [address] [place] [phone] Marysol Diaz 05/11/2025 5:30 PM EST PACE Home Care / [facility] [place] [facility] [address] [place] [phone] Marysol Diaz 05/12/2025 8:30 AM EST PACE Home Care / [facility] [place] [facility] [address] [place] [phone] Carmen Hartmann 05/12/2025 4:30 PM EST PACE Home Care / [facility] [place] [facility] [address] [place] [phone] Ashley Eastman 05/13/2025 8:30 AM EST PACE Home Care / [facility] [place] [facility] [address] [place] [phone] Carmen Hartmann 05/13/2025 11:00 AM EST [facility] Visit [facility] [place] [facility] [address] [place] [phone] Regulo Ivy, ALONSO [address] [address] Brigette East LPN 05/13/2025 4:30 PM EST PACE Home Care / [facility] [place] [facility] [address] [place] [phone] Ashley Eastman 05/14/2025 8:30 AM EST PACE Home Care / [facility] [place] [facility] [address] [place] [address] Carmen Hartmann 05/14/2025 4:30 PM EST PACE Home Care / [facility] [place] [facility] [address] [place] [address] Ashley Eastman 05/15/2025 8:30 AM EST PACE Home Care / [facility] [facility] Visit [facility] [place] [facility] [address] [place] [address] Carmen Hartmann 05/15/2025 9:00 AM EST [facility] [facility] [place] [facility] [address] [place] [address] 05/15/2025 4:30 PM EST PACE Home Care / [facility] [facility] [place] [facility] [address] [place] [address] Ashley Eastman 05/16/2025 8:00 AM EST PACE Home Care / [facility] [place] [facility] [address] [place] [address] Carmen Hartmann 05/16/2025 9:30 AM EST PACE Home Care / [facility] [place] [facility] [address] [place] [address] Ralph Loyola 05/16/2025 4:30 PM EST PACE Home Care / [facility] [place] [facility] [address] [place] [address] Ashley Eastman 05/17/2025 12:00 PM EST PACE Home Care / [facility] [place] [facility] [address] [place] [address] Dena Chavez 05/18/2025 12:00 PM EST PACE Home Care / [facility] [place] [facility] [address] [place] [address] Dena Chavez 05/19/2025 8:30 AM EST PACE Home Care / [facility] [address] [place] [address] Carmen Hartmann 05/19/2025 4:30 PM EST PACE Home Care / [facility] [place] [facility] [address] [place] [address] Ashley Eastman 05/20/2025 8:30 AM EST PACE Home Care / [facility] [place] [facility] [address] [place] [address] Carmen Hartmann 05/20/2025 4:30 PM EST PACE Home Care / [facility] Visit [facility] [place] [facility] [address] [place] [address] Ashley Eastman 05/21/2025 8:30 AM EST PACE Home Care / [facility] [place] [facility] [address] [place] [phone] Carmen Hartmann 05/21/2025 4:30 PM EST PACE Home Care / [facility] Visit [facility] [place] [facility] [address] [place] [phone] Ashley Eastman 05/22/2025 8:30 AM EST PACE Home Care / [facility] Visit [facility] [place] [facility] [address] [place] [address] Carmen Hartmann 05/22/2025 9:00 AM EST [facility] [place] [facility] [address] [place] [address] 05/22/2025 4:30 PM EST PACE Home Care / [facility] [place] [facility] [address] [place] [address] Ashley Eastman 05/23/2025 8:00 AM EST PACE Home Care / [facility] [place] [facility] [address] [place] [address] Carmen Hartmann 05/23/2025 9:30 AM EST PACE Home Care / [facility] [place] [facility] [address] [place] [address] Ralph Loyola 05/23/2025 4:30 PM EST PACE Home Care / [facility] [place] [facility] [address] [place] [phone] Ashley Eastman 05/24/2025 8:30 AM EST PACE Home Care / [facility] [place] [facility] [address] [place] [phone] Marysol Diaz 05/24/2025 12:00 PM EST PACE Home Care / [facility] [place] [facility] [address] [place] [phone] Natali Sanford 05/24/2025 5:30 PM EST PACE Home Care / [facility] [place] [facility] [address] [place] [phone] Marysol Diaz 05/25/2025 8:30 AM EST PACE Home Care / [facility] [place] [facility] [address] [place] [phone] Marysol Diaz 05/25/2025 12:00 PM EST PACE Home Care / [facility] [place] [facility] [address] [place] [phone] Natali Sanford 05/25/2025 4:30 PM EST PACE Home Care / [facility] [place] [facility] [address] [place] [address] Marysol Diaz 05/25/2025 5:30 PM EST PACE Home Care / [facility] [place] [facility] [address] [place] [address] Marysol Diaz 05/26/2025 8:30 AM EST PACE Home Care / [facility] [place] [facility] [address] [place] [address] Carmen Hartmann 05/26/2025 4:30 PM EST PACE Home Care / [facility] [place] [facility] [address] [place] [phone] Ashley Eastman 05/27/2025 8:30 AM EST P[facility] Home Care / [facility] [place] [facility] [address] [place] [phone] Carmen Hartmann 05/27/2025 4:30 PM EST P[facility] Home Care / [facility] [place] [facility] [address] [place] [phone] Ashley Eastman 05/28/2025 8:30 AM EST P[facility] Home Care / [facility] [place] [facility] [address] [place] [phone] Carmen Hartmann 05/28/2025 4:30 PM EST P[facility] Home Care / [facility] [place] [facility] [address] [place] [phone] Ashley Eastman 05/29/2025 8:30 AM EST P[facility] Home Care / [facility] [place] [facility] [address] [place] [phone] Carmen Hartmann 05/29/2025 9:00 AM EST [facility] [facility] [place] [facility] [address] [place] [phone] 05/29/2025 4:30 PM EST P[facility] Home Care / [facility] [place] [facility] [address] [place] [phone] Ashley Eastman 05/30/2025 8:00 AM EST P[facility] Home Care / [facility] [place] [facility] [address] [place] [phone] Carmen Hartmann 05/30/2025 9:30 AM EST P[facility] Home Care / [facility] [place] [facility] [address] [place] [phone] Ralph Loyola 05/30/2025 4:30 PM EST P[facility] Home Care / [facility] [place] [facility] [address] [place] [phone] Ashley Eastman 06/05/2025 9:00 AM EST [facility] [facility] [place] [facility] [address] [place] [phone] 06/10/2025 11:00 AM EST [facility] [place] [facility] [address] [place] [phone] Michelle Castillo MD [address] [place] [phone] Brigette East LPN 06/12/2025 9:00 AM EST [facility] [facility] [place] [facility] [address] [place] [phone] 06/19/2025 9:00 AM EST [facility] [place] [facility] [place] [facility] [address] [place] [phone] 06/26/2025 9:00 AM EDT [facility] [facility] [place] [facility] [facility] [address] [place] [phone] 06/27/2025 1:20 PM EDT Office Visit Gastroenterology - [address] [place] [phone] Analisa Perez, ALONSO [address] [place] [address] 07/03/2025 9:00 AM EDT P[facility] Attendance/[place] [facility] [place] [facility] [address] [place] [phone] 07/10/2025 9:00 AM EDT [place] Attendance[place] [facility] [place] [facility] [address] [place] [phone] 07/17/2025 9:00 AM EDT [facility] Attendance[place] [facility] [place] [facility] [address] [place] [phone] 07/17/2025 3:30 PM EDT PACE External Visit [facility] [address] [place] [phone] 07/24/2025 9:00 AM EDT [place] Attendance[place] [facility] [place] [facility] [address] [place] [phone] 07/31/2025 9:00 AM EDT [place] Attendance[place] [facility] [place] [facility] [address] [place] [phone] 08/07/2025 9:00 AM EDT PACE Attendance/[facility] [place] [facility] [address] [place] [phone] 08/14/2025 9:00 AM EDT PACE Attendance/[facility] [place] [facility] [address] [place] [phone] 08/21/2025 9:00 AM EDT PACE Attendance/[facility] [place] [facility] [address] [place] [phone] 08/28/2025 9:00 AM EDT PACE Attendance/[place] [facility] [place] [facility] [address] [place] [phone] 09/04/2025 9:00 AM EDT PACE Attendance/[facility] [address] [place] [phone] 09/11/2025 9:00 AM EDT PACE Attendance/[facility] [place] [facility] [address] [place] [phone] 09/18/2025 9:00 AM EDT PACE Attendance/[facility] [address] [place] [phone] 09/25/2025 9:00 AM EDT PACE Attendance/[facility] [place] [facility] [address] [place] [phone] 10/02/2025 9:00 AM EDT PACE Attendance/[facility] [place] [facility] [address] [place] [phone] 10/09/2025 9:00 AM EDT PACE Attendance/[facility] [place] [facility] [address] [place] [phone] documented as of this encounter Visit Diagnoses Not on filedocumented in this encounter Care Teams Commercial Credit Portfolio Manager Relationship Specialty Start Date End Date Regluo Ivy NP [address] [place] [phone] PCP - General PACE 06/07/24 documented as of this encounter
--- OUTSIDE RECORDS SUMMARY | 2025-03-31 08:30 | XMS_ITS | Encounter Summary ---
Author Organization [facility] Address [address] [place] [address] Care Team Providers Care Provider Network Analyst Name Role Phone Regulo Ivy NP Primary Care Provider [phone] Encounter Details Date Type Department Care Team (Late st Contact Info) Description 03/31/2025 8:30 AM EST PACE Home Care / PACE Home Visit [facility] [address] [place] [address] Carmen Hartmann Social History Tobacco [...] [place] [facility] [address] [place] [phone] Carmen Hartmann 04/02/2025 4:30 PM EST PACE Home Care / PACE Home Visit [facility] [place] [facility] [address] [place] [phone] Ashley Eastman 04/03/2025 8:30 AM EST PACE Home Care / PACE Home Visit [facility] [place] [facility] [address] [place] [phone] Carmen Hartmann 04/03/2025 9:00 AM EST PACE Attendance/[facility] [place] [facility] [address] [place] [address] 04/03/2025 4:30 PM EST PACE Home Care / PACE Home Visit [facility] [place] [facility] [address] [place] [phone] Ashley Eastman 04/04/2025 [facility] [place] [facility] [address] [place] [address] Regulo Ivy, ALONSO [address] [address] Constipation, unspecified constipation type 04/04/2025 8:00 AM EST PACE Home Care / PACE Home Visit [facility] [place] [facility] [address] [place] [phone] Titi Thomas 04/04/2025 8:30 AM EST PACE Home Care / PACE Home Visit [facility] [place] [facility] [address] [place] [phone] Marysol Diaz 04/04/2025 4:30 PM EST PACE Home Care / PACE Home Visit [facility] [place] [facility] [address] [place] [phone] Ashley Eastman 04/05/2025 12:00 PM EST PACE Home Care / PACE Home Visit [facility] [place] [facility] [address] [place] [phone] Dena Chavez 04/06/2025 12:00 PM EST PACE Home Care / PACE Home Visit [facility] [place] [facility] [address] [place] [phone] Dena Chavez 2025 8:30 AM EST PACE Home Care / PACE Home Visit [facility] [place] [facility] [address] [place] [phone] Carmen Hartmann 2025 4:30 PM EST PACE Home Care / PACE Home Visit [facility] [address] [place] [address] Ashley Eastman 04/08/2025 8:30 AM EST PACE Home Care / PACE Home Visit [facility] [place] [facility] [address] [place] [address] Carmen Hartmann 04/08/2025 4:30 PM EST PACE Home Care / PACE Home Visit [facility] [place] [facility] [address] [place] [phone] Ashley Eastman 04/09/2025 8:30 AM EST PACE Home Care / PACE Home Visit [facility] [place] [facility] [address] [place] [phone] Carmen Hartmann 04/09/2025 4:30 PM EST PACE Home Care / PACE Home Visit [facility] [place] [facility] [address] [place] [phone] Ashley Eastman 04/10/2025 6:05 AM EST PACE Home Care / PACE Home Visit [facility] [place] [facility] [address] [place] [phone] Jackeline Mcrae 04/10/2025 9:00 AM EST [facility] Att[facility] [place] [facility] [address] [place] [address] 04/10/2025 4:30 PM EST PACE Home Care / PACE Home Visit [facility] [place] [facility] [address] [place] [phone] Ashley Eastman 04/11/2025 8:00 AM EST PACE Home Care / PACE Home Visit [facility] [place] [facility] [address] [place] [phone] Carmen Hartmann 04/11/2025 9:30 AM EST PACE Home Care / PACE Home Visit [facility] [place] [facility] [address] [place] [address] Carmen Hartmann 04/11/2025 4:30 PM EST PACE Home Care / PACE Home Visit [facility] [place] [facility] [address] [place] [address] Ashley Eastman 04/12/2025 8:30 AM EST PACE Home Care / PACE Home Visit [facility] [place] [facility] [address] [place] [address] Marysol Diaz 04/12/2025 12:00 PM EST PACE Home Care / PACE Home Visit [facility] [place] [facility] [address] [place] [address] Natali Sanford 04/12/2025 5:30 PM EST PACE Home Care / PACE Home Visit [facility] [place] [facility] [address] [place] [address] Marysol Diaz 04/13/2025 8:30 AM EST PACE Home Care / PACE Home Visit [facility] [place] [facility] [address] [place] [address] Marysol Diaz 04/13/2025 12:00 PM EST PACE Home Care / PACE Home Visit [facility] [place] [facility] [address] [place] [address] Natali Sanford 04/13/2025 4:30 PM EST PACE Home Care / PACE Home Visit [facility] [place] [facility] [address] [place] [phone] Marysol Diaz 04/13/2025 5:30 PM EST PACE Home Care / PACE Home Visit [facility] [place] [facility] [address] [place] [phone] Marysol Diaz 04/14/2025 8:30 AM EST PACE Home Care / PACE Home Visit [facility] [place] [facility] [address] [place] [address] Carmen Hartmann 04/14/2025 4:30 PM EST PACE Home Care / PACE Home Visit [facility] [place] [facility] [address] [place] [address] Ashley Eastman 04/15/2025 8:30 AM EST PACE Home Care / PACE Home Visit [facility] [place] [facility] [address] [place] [address] Carmen Hartmann 04/15/2025 11:00 AM EST Office Visit [facility] [place] [facility] [address] [place] [address] Regulo Ivy, ALONSO [address] [place] [phone] Brigette East LPN 04/15/2025 4:30 PM EST PACE Home Care / PACE Home Visit [facility] [place] [facility] [address] [place] [phone] Ashley Eastman 04/16/2025 8:30 AM EST PACE Home Care / PACE Home Visit [facility] [place] [facility] [address] [place] [phone] Carmen Hartmann 04/16/2025 4:30 PM EST PACE Home Care / PACE Home Visit [facility] [place] [facility] [address] [place] [phone] Ashley Eastman 04/17/2025 8:30 AM EST PACE Home Care / PACE Home Visit [facility] [place] [facility] [address] [place] [phone] Carmen Hartmann 04/17/2025 9:00 AM EST P[facility] Att[facility]ance[facility] [place] [facility] [address] [place] [address] 04/17/2025 4:30 PM EST PACE Home Care / PACE Home Visit [facility] [place] [facility] [address] [place] [phone] Ashley Eastman 04/18/2025 8:00 AM EST PACE Home Care / PACE Home Visit [facility] [place] [facility] [address] [place] [phone] Carmen Hartmann 04/18/2025 4:30 PM EST PACE Home Care / PACE Home Visit [facility] [place] [facility] [address] [place] [phone] Ashley Eastman 04/19/2025 12:00 PM EST PACE Home Care / PACE Home Visit [facility] [place] [facility] [address] [place] [phone] Dena Chavez 04/20/2025 12:00 PM EST PACE Home Care / PACE Home Visit [facility] [place] [facility] [address] [place] [phone] Dena Chavez 04/21/2025 8:30 AM EST PACE Home Care / PACE Home Visit [facility] [place] [facility] [address] [place] [phone] Carmen Hartmann 04/21/2025 4:30 PM EST PACE Home Care / PACE Home Visit [facility] [address] [place] [phone] Ashley Eastman 04/22/2025 8:30 AM EST PACE Home Care / PACE Home Visit [facility] [place] [facility] [address] [place] [phone] Carmen Hartmann 04/22/2025 4:30 PM EST PACE Home Care / PACE Home Visit [facility] [place] [facility] [address] [place] [phone] Ashley Eastman 04/23/2025 8:30 AM EST PACE Home Care / PACE Home Visit [facility] [place] [facility] [address] [place] [address] Carmen Hartmann 04/23/2025 4:30 PM EST PACE Home Care / PACE Home Visit [facility] [place] [facility] [address] [place] [phone] Ashley Eastman 04/24/2025 8:30 AM EST PACE Home Care / PACE Home Visit [facility] [place] [facility] [address] [place] [address] Carmen Hartmann 04/24/2025 9:00 AM EST P[facility] Att[facility] [place] [facility] [address] [place] [phone] 04/24/2025 4:30 PM EST PACE Home Care / PACE Home Visit [facility] [place] [facility] [address] [place] [phone] Ashley Eastman 04/25/2025 8:00 AM EST PACE Home Care / PACE Home Visit [facility] [address] [place] [phone] Carmen Hartmann 04/25/2025 9:30 AM EST PACE Home Care / PACE Home Visit [facility] [place] [facility] [address] [place] [phone] Ralph Loyola 04/25/2025 4:30 PM EST PACE Home Care / PACE Home Visit [facility] [address] [place] [phone] Ashley Eastman 04/26/2025 8:30 AM EST PACE Home Care / PACE Home Visit [facility] [address] [place] [phone] Marysol iDaz 04/26/2025 12:00 PM EST PACE Home Care / PACE Home Visit [facility] [address] [place] [phone] Natali Sanford 04/26/2025 5:30 PM EST PACE Home Care / PACE Home Visit [facility] [place] [facility] [address] [place] [phone] Marysol Diaz 04/27/2025 8:30 AM EST PACE Home Care / PACE Home Visit [facility] [address] [place] [phone] Marysol Diaz 04/27/2025 12:00 PM EST PACE Home Care / PACE Home Visit [facility] [address] [place] [phone] Natali Sanford 04/27/2025 4:30 PM EST PACE Home Care / PACE Home Visit [facility] [address] [place] [phone] Marysol Diaz 04/27/2025 5:30 PM EST PACE Home Care / PACE Home Visit [facility] [address] [place] [phone] Marysol Diaz 04/28/2025 8:30 AM EST PACE Home Care / PACE Home Visit [facility] [address] [place] [phone] Carmen Hartmann 04/28/2025 4:30 PM EST PACE Home Care / PACE Home Visit [facility] [address] [place] [phone] Ashley Eastman 04/29/2025 8:30 AM EST PACE Home Care / PACE Home Visit [facility] [address] [place] [phone] Carmen Hartmann 04/29/2025 4:30 PM EST PACE Home Care / PACE Home Visit [facility] [place] [facility] [address] [place] [address] Ashley Eastman 04/30/2025 8:30 AM EST PACE Home Care / PACE Home Visit [facility] [place] [facility] [address] [place] [address] Carmen Hartmann 04/30/2025 4:30 PM EST PACE Home Care / PACE Home Visit [facility] [place] [facility] [address] [place] [address] Ashley Eastman 05/01/2025 8:30 AM EST PACE Home Care / PACE Home Visit [facility] [address] [place] [address] Carmen Hartmann 05/01/2025 9:00 AM EST PACE Attendance/[facility] [place] [facility] [address] [place] [address] 05/01/2025 11:30 AM EST [facility] Support [facility] [place] [address] [place] [address] 05/01/2025 4:30 PM EST PACE Home Care / PACE Home Visit [facility] [address] [place] [address] Ashley Eastman 05/02/2025 8:00 AM EST PACE Home Care / PACE Home Visit [facility] [place] [facility] [address] [place] [address] Carmen Hartmann 05/02/2025 9:30 AM EST PACE Home Care / PACE Home Visit [facility] [place] [facility] [address] [place] [address] Ralph Loyola 05/02/2025 4:30 PM EST PACE Home Care / PACE Home Visit [facility] [place] [facility] [address] [place] [address] Ashley Eastman 05/03/2025 12:00 PM EST PACE Home Care / PACE Home Visit [facility] [address] [place] [address] Dena Chavez 05/04/2025 12:00 PM EST PACE Home Care / PACE Home Visit [facility] [place] [facility] [address] [place] [address] Dena Chavez 05/05/2025 8:30 AM EST PACE Home Care / PACE Home Visit [facility] [address] [place] [address] Carmen Hartmann 05/05/2025 4:30 PM EST PACE Home Care / PACE Home Visit [facility] [address] [place] [phone] Ashley aEstman 05/06/2025 8:30 AM EST PACE Home Care / PACE Home Visit [facility] [address] [place] [address] Carmen Hartmann 05/06/2025 4:30 PM EST PACE Home Care / PACE Home Visit [facility] [address] [place] [phone] Ashley Eastman 05/07/2025 8:30 AM EST PACE Home Care / PACE Home Visit [facility] [address] [place] [address] Carmen Hartmann 05/07/2025 4:30 PM EST PACE Home Care / PACE Home Visit [facility] [address] [place] [address] Ashley Eastman 05/08/2025 8:30 AM EST PACE Home Care / PACE Home Visit [facility] [address] [place] [address] Carmen Hartmann 05/08/2025 9:00 AM EST [facility] Att[facility] [place] [facility] [address] [place] [address] 05/08/2025 4:30 PM EST PACE Home Care / PACE Home Visit [facility] [address] [place] [phone] Ashley Eastman 05/09/2025 8:00 AM EST PACE Home Care / PACE Home Visit [facility] [address] [place] [phone] Carmen Hartmann 05/09/2025 9:30 AM EST PACE Home Care / PACE Home Visit [facility] [address] [place] [phone] Ralph Loyola 05/09/2025 4:30 PM EST PACE Home Care / PACE Home Visit [facility] [address] [place] [phone] Ashley Eastman 05/10/2025 8:30 AM EST PACE Home Care / PACE Home Visit [facility] [address] [place] [phone] Marysol Diaz 05/10/2025 12:00 PM EST PACE Home Care / PACE Home Visit [facility] [address] [place] [phone] Natali Sanford 05/10/2025 5:30 PM EST PACE Home Care / PACE Home Visit [facility] [address] [place] [phone] Marysol Diaz 05/11/2025 8:30 AM EST PACE Home Care / PACE Home Visit [facility] [place] [facility] [address] [place] [phone] Marysol Diaz 05/11/2025 12:00 PM EST PACE Home Care / PACE Home Visit [facility] [place] [facility] [address] [place] [phone] Natali Sanford 05/11/2025 4:30 PM EST PACE Home Care / PACE Home Visit [facility] [place] [facility] [address] [place] [phone] Marysol Diaz 05/11/2025 5:30 PM EST PACE Home Care / PACE Home Visit [facility] [address] [place] [phone] Marysol Diaz 05/12/2025 8:30 AM EST PACE Home Care / PACE Home Visit [facility] [address] [place] [phone] Carmen Hartmann 05/12/2025 4:30 PM EST PACE Home Care / PACE Home Visit [facility] [address] [place] [phone] Ashley Eastman 05/13/2025 8:30 AM EST PACE Home Care / PACE Home Visit [facility] [place] [facility] [address] [place] [phone] Carmen Hartmann 05/13/2025 11:00 AM EST [facility] Visit [facility] [place] [facility] [address] [place] [phone] Regulo Ivy, ALONSO [facility] [address] [address] Brigette East LPN 05/13/2025 4:30 PM EST PACE Home Care / PACE Home Visit [facility] [address] [place] [phone] Ashley Eastman 05/14/2025 8:30 AM EST PACE Home Care / PACE Home Visit [facility] [place] [facility] [address] [place] [address] Carmen Hartmann 05/14/2025 4:30 PM EST PACE Home Care / PACE Home Visit [facility] [address] [place] [address] Ashley Eastman 05/15/2025 8:30 AM EST PACE Home Care / PACE Home Visit [facility] [place] [facility] [address] [place] [address] Cramen Hartmann 05/15/2025 9:00 AM EST [facility] Att[facility] [facility] [place] [facility] [address] [place] [address] 05/15/2025 4:30 PM EST PACE Home Care / PACE Home Visit [facility] [place] [facility] [address] [place] [address] Ashley Eastman 05/16/2025 8:00 AM EST PACE Home Care / PACE Home Visit [facility] [address] [place] [address] Carmen Hartmann 05/16/2025 9:30 AM EST PACE Home Care / PACE Home Visit [facility] [address] [place] [address] Ralph Loyola 05/16/2025 4:30 PM EST PACE Home Care / PACE Home Visit [facility] [address] [place] [address] Ashley Eastman 05/17/2025 12:00 PM EST PACE Home Care / PACE Home Visit [facility] [place] [facility] [address] [place] [address] Dena Chavez 05/18/2025 12:00 PM EST PACE Home Care / PACE Home Visit [facility] [address] [place] [address] Dena Chavez 05/19/2025 8:30 AM EST PACE Home Care / PACE [facility] Visit [facility] [address] [place] [address] Carmen Hartmann 05/19/2025 4:30 PM EST PACE Home Care / PACE [facility] Visit [facility] [place] [facility] [address] [place] [address] Ashley Eastman 05/20/2025 8:30 AM EST PACE Home Care / PACE [facility] Visit [facility] [place] [facility] [address] [place] [address] Carmen Hartmann 05/20/2025 4:30 PM EST PACE Home Care / PACE Home Visit [facility] [address] [place] [address] Ashley Eastman 05/21/2025 8:30 AM EST PACE Home Care / PACE [facility] Visit [facility] [address] [place] [phone] Carmen Hartmann 05/21/2025 4:30 PM EST PACE Home Care / PACE Home Visit [facility] [place] [facility] [address] [place] [phone] Ashley Eastman 05/22/2025 8:30 AM EST PACE Home Care / PACE Home Visit [facility] [place] [facility] [address] [place] [phone] Carmen Hartmann 05/22/2025 9:00 AM EST PACE Attendance[facility] [place] [facility] [address] [place] [address] 05/22/2025 4:30 PM EST PACE Home Care / PACE [facility] Visit [facility] [place] [facility] [address] [place] [address] Ashley Eastman 05/23/2025 8:00 AM EST PACE Home Care / P[facility] Visit [facility] [address] [place] [phone] Carmen Hartmann 05/23/2025 9:30 AM EST PACE Home Care / P[facility] Home Visit [facility] [address] [place] [phone] Ralph Loyola 05/23/2025 4:30 PM EST PACE Home Care / P[facility] Visit [facility] [address] [place] [phone] Ashley Eastman 05/24/2025 8:30 AM EST PACE Home Care / P[facility] Home Visit [facility] [address] [place] [phone] Marysol Diaz 05/24/2025 12:00 PM EST PACE Home Care / P[facility] Visit [facility] [address] [place] [phone] Natali Sanford 05/24/2025 5:30 PM EST PACE Home Care / P[facility] Home Visit [facility] [place] [facility] [address] [place] [phone] Marysol Diaz 05/25/2025 8:30 AM EST PACE Home Care / PACE Home Visit [facility] [place] [facility] [address] [place] [phone] Marysol Diaz 05/25/2025 12:00 PM EST PACE Home Care / P[facility] Visit [facility] [address] [place] [phone] Natali Sanford 05/25/2025 4:30 PM EST PACE Home Care / P[facility] Visit [facility] [place] [facility] [address] [place] [phone] Marysol Diaz 05/25/2025 5:30 PM EST PACE Home Care / P[facility] Visit [facility] [place] [facility] [address] [place] [phone] Marysol Diaz 05/26/2025 8:30 AM EST PACE Home Care / P[facility] Visit [facility] [address] [place] [phone] Carmen Hartmann 05/26/2025 4:30 PM EST PACE Home Care / P[facility] Visit [facility] [address] [place] [phone] Ashley Eastman 05/27/2025 8:30 AM EST PACE Home Care / [facility] Visit [facility] [place] [facility] [address] [place] [phone] Carmen Hartmann 05/27/2025 4:30 PM EST PACE Home Care / P[facility] Visit [facility] [place] [facility] [address] [place] [phone] Ashley Eastman 05/28/2025 8:30 AM EST PACE Home Care / P[facility] Visit [facility] [address] [place] [phone] Carmen Hartmann 05/28/2025 4:30 PM EST PACE Home Care / [facility] Visit [facility] [address] [place] [phone] Ashley Eastman 05/29/2025 8:30 AM EST PACE Home Care / [facility] Visit [facility] [address] [place] [phone] Carmen Hartmann 05/29/2025 9:00 AM EST [facility] [facility] [place] [facility] [address] [place] [address] 05/29/2025 4:30 PM EST PACE Home Care / [facility] [address] [place] [phone] Ashley Eastman 05/30/2025 8:00 AM EST PACE Home Care / [facility] Visit [facility] [address] [place] [phone] Carmen Hartamnn 05/30/2025 9:30 AM EST PACE Home Care / [facility] [address] [place] [phone] Ralph Loyola 05/30/2025 4:30 PM EST PACE Home Care / [facility] [place] [facility] [address] [place] [phone] Ashley Eastman 06/05/2025 9:00 AM EST [facility] [facility] [place] [facility] [address] [place] [phone] 06/10/2025 11:00 AM EST [facility] [place] [facility] [address] [place] [phone] Michelle Castillo MD [address] [place] [phone] Brigette East LPN 06/12/2025 9:00 AM EST P[place] Att[facility] [facility] [place] [facility] [address] [place] [phone] 06/19/2025 9:00 AM EST [facility] [facility] [place] [facility] [address] [place] [phone] 06/26/2025 9:00 AM EDT PACE Attendance/[facility] [place] [facility] [address] [place] [phone] 06/27/2025 1:20 PM EDT Office Visit Gastroenterology - [address] [place] [address] Analisa Perez, ALONSO [address] [place] [address] 07/03/2025 9:00 AM EDT PACE Attendance/[place] [facility] [place] [facility] [address] [place] [phone] 07/10/2025 9:00 AM EDT PACE Attendance/[place] [facility] [place] [facility] [address] [place] [phone] 07/17/2025 9:00 AM EDT PACE Attendance/Day Center [facility] [place] [facility] [address] [place] [phone] 07/17/2025 3:30 PM EDT PACE External Visit [facility] [address] [place] [phone] 07/24/2025 9:00 AM EDT PACE Attendance/[facility] [place] [facility] [address] [place] [phone] 07/31/2025 9:00 AM EDT PACE Attendance/[facility] [place] [facility] [address] [place] [phone] 08/07/2025 9:00 AM EDT PACE Attendance/[facility] [place] [facility] [address] [place] [phone] 08/14/2025 9:00 AM EDT PACE Attendance/[facility] [place] [facility] [address] [place] [phone] 08/21/2025 9:00 AM EDT PACE Attendance/[facility] [place] [facility] [address] [place] [phone] 08/28/2025 9:00 AM EDT PACE Attendance/[facility] [place] [facility] [address] [place] [phone] 09/04/2025 9:00 AM EDT PACE Attendance/[place] [facility] [place] [facility] [address] [place] [phone] 09/11/2025 9:00 AM EDT PACE Attendance/Day [facility] [place] [facility] [address] [place] [phone] 09/18/2025 9:00 AM EDT PACE Attendance/[facility] [place] [facility] [address] [place] [phone] 09/25/2025 9:00 AM EDT PACE Attendance/[facility] [place] [facility] [address] [place] [phone] 10/02/2025 9:00 AM EDT PACE Attendance/[facility] [place] [facility] [address] [place] [phone] 10/09/2025 9:00 AM EDT PACE Attendance/[facility] [address] [place] [phone] documented as of this encounter Visit Diagnoses Not on filedocumented in this encounter Care Teams Provider Network Analyst Relationship Specialty Start Date End Date Regulo Ivy NP [address] [place] [id number] PCP - General PACE 06/07/24 documented as of this encounter
--- OUTSIDE RECORDS SUMMARY | 2025-03-31 16:30 | XMS_ITS | Encounter Summary ---
Author Organization [facility] Address [address] [place] [address] Care Team Providers Care Loan Funder Name Role Phone Regulo Ivy NP Primary Care Provider [phone] Encounter Details Date Type Department Care Team (Late st Contact Info) Description 03/31/2025 4:30 PM EST PACE Home Care / PACE Home Visit [facility] [address] [place] [address] Ashley Eastman Social History Tobacco [...] your loved ones. For example, child care worker or elderly care for an older [...] [place] [facility] [address] [place] [phone] Carmen Hartmann 04/02/2025 4:30 PM EST PACE Home Care / P[facility] Home Visit [facility] [place] [facility] [address] [place] [phone] Ashley Eastman 04/03/2025 8:30 AM EST PACE Home Care / P[facility] Home Visit [facility] [place] [facility] [address] [place] [phone] Carmen Hartmann 04/03/2025 9:00 AM EST PACE Attendance/[facility] [place] [facility] [address] [place] [address] 04/03/2025 4:30 PM EST PACE Home Care / PACE Home Visit [facility] [place] [facility] [address] [place] [phone] Ashley Eastman 04/04/2025 [facility] [place] [facility] [address] [place] [address] Regulo Ivy, ALONSO [address] [address] Constipation, unspecified constipation type 04/04/2025 8:00 AM EST PACE Home Care / PACE Home Visit [facility] [place] [facility] [address] [place] [phone] Titi Thomas 04/04/2025 8:30 AM EST PACE Home Care / PACE Home Visit [facility] [place] [facility] [address] [place] [phone] Marysol Diaz 04/04/2025 4:30 PM EST PACE Home Care / PACE Home Visit [facility] [place] [facility] [address] [place] [phone] Ashley Eastman 04/05/2025 12:00 PM EST PACE Home Care / PACE Home Visit [facility] [place] [facility] [address] [place] [phone] Dena Chavez 04/06/2025 12:00 PM EST PACE Home Care / PACE Home Visit [facility] [place] [facility] [address] [place] [phone] Dena Chavez 2025 8:30 AM EST PACE Home Care / PACE Home Visit [facility] [place] [facility] [address] [place] [phone] Carmen Hartmann 2025 4:30 PM EST PACE Home Care / [place] Home Visit [facility] [place] [facility] [address] [place] [address] Ashley Eastman 04/08/2025 8:30 AM EST PACE Home Care / [place] Home Visit [facility] [place] [facility] [address] [place] [address] Carmen Hartmann 04/08/2025 4:30 PM EST PACE Home Care / [place] Home Visit [facility] [place] [facility] [address] [place] [phone] Ashley Eastman 04/09/2025 8:30 AM EST PACE Home Care / P[place] Home Visit [facility] [place] [facility] [address] [place] [phone] Carmen Hartmann 04/09/2025 4:30 PM EST PACE Home Care / P[place] Home Visit [facility] [place] [facility] [address] [place] [phone] Ashley Eastman 04/10/2025 6:05 AM EST PACE Home Care / P[place] Home Visit [facility] [place] [facility] [address] [place] [phone] Jackeline Mcrae 04/10/2025 9:00 AM EST [place] [facility] [place] [facility] [address] [place] [address] 04/10/2025 4:30 PM EST PACE Home Care / [place] Home Visit [facility] [place] [facility] [address] [place] [phone] Ashley Eastman 04/11/2025 8:00 AM EST PACE Home Care / P[place] Home Visit [facility] [place] [facility] [address] [place] [phone] Carmen Hartmann 04/11/2025 9:30 AM EST PACE Home Care / P[place] Home Visit [facility] [place] [facility] [address] [place] [address] Carmen Hartmann 04/11/2025 4:30 PM EST PACE Home Care / P[place] Home Visit [facility] [place] [facility] [address] [place] [address] Ashley Eastman 04/12/2025 8:30 AM EST PACE Home Care / P[place] Home Visit [facility] [place] [facility] [address] [place] [address] Marysol Diaz 04/12/2025 12:00 PM EST PACE Home Care / P[place] Home Visit [facility] [place] [facility] [address] [place] [address] Natali Sanford 04/12/2025 5:30 PM EST PACE Home Care / P[place] Home Visit [facility] [place] [facility] [address] [place] [address] Marysol Diaz 04/13/2025 8:30 AM EST PACE Home Care / P[place] Home Visit [facility] [place] [facility] [address] [place] [address] Marysol Diaz 04/13/2025 12:00 PM EST PACE Home Care / PACE Home Visit [facility] [place] [facility] [address] [place] [address] Natali Sanford 04/13/2025 4:30 PM EST PACE Home Care / P[place] Home Visit [facility] [place] [facility] [address] [place] [phone] Marysol Diaz 04/13/2025 5:30 PM EST PACE Home Care / P[place] Home Visit [facility] [place] [facility] [address] [place] [phone] Marysol Diaz 04/14/2025 8:30 AM EST PACE Home Care / P[place] Home Visit [facility] [place] [facility] [address] [place] [address] Carmen Hartmann 04/14/2025 4:30 PM EST PACE Home Care / P[facility] Home Visit [facility] [place] [facility] [address] [place] [address] Ashley Eastman 04/15/2025 8:30 AM EST PACE Home Care / P[place] Home Visit [facility] [place] [facility] [address] [place] [address] Carmen Hartmann 04/15/2025 11:00 AM EST Office Visit [facility] [place] [facility] [address] [place] [address] Regulo Ivy, ALONSO [address] [place] [address] Brigette East LPN 04/15/2025 4:30 PM EST PACE Home Care / P[place] Home Visit [facility] [place] [facility] [address] [place] [phone] Ashley Eastman 04/16/2025 8:30 AM EST PACE Home Care / P[place] Home Visit [facility] [place] [facility] [address] [place] [phone] Carmen Hartmann 04/16/2025 4:30 PM EST PACE Home Care / PACE Home Visit [facility] [place] [facility] [address] [place] [phone] Ashley Eastman 04/17/2025 8:30 AM EST PACE Home Care / P[place] Home Visit [facility] [place] [facility] [address] [place] [phone] Carmen Hartmann 04/17/2025 9:00 AM EST P[facility] Attendance[facility] [place] [facility] [address] [place] [address] 04/17/2025 4:30 PM EST PACE Home Care / P[place] Home Visit [facility] [place] [facility] [address] [place] [phone] Ashley Eastman 04/18/2025 8:00 AM EST PACE Home Care / P[place] Home Visit [facility] [place] [facility] [address] [place] [phone] Carmen Hartmann 04/18/2025 4:30 PM EST PACE Home Care / P[place] Home Visit [facility] [place] [facility] [address] [place] [phone] Ashley Eastman 04/19/2025 12:00 PM EST PACE Home Care / P[place] Home Visit [facility] [place] [facility] [address] [place] [phone] Dena Chavez 04/20/2025 12:00 PM EST PACE Home Care / P[place] Home Visit [facility] [place] [facility] [address] [place] [phone] Dena Chavez 04/21/2025 8:30 AM EST PACE Home Care / P[place] Home Visit [facility] [place] [facility] [address] [place] [phone] Carmen Hartmann 04/21/2025 4:30 PM EST PACE Home Care / P[place] Home Visit [facility] [place] [facility] [address] [place] [phone] Ashley Eastman 04/22/2025 8:30 AM EST PACE Home Care / P[place] Home Visit [facility] [place] [facility] [address] [place] [phone] Carmen Hartmann 04/22/2025 4:30 PM EST PACE Home Care / P[place] Home Visit [facility] [place] [facility] [address] [place] [phone] Ashley Eastman 04/23/2025 8:30 AM EST PACE Home Care / PACE Home Visit [facility] [place] [facility] [address] [place] [address] Carmen Hartmann 04/23/2025 4:30 PM EST PACE Home Care / PACE Home Visit [facility] [place] [facility] [address] [place] [phone] Ashley Eastman 04/24/2025 8:30 AM EST PACE Home Care / PACE Home Visit [facility] [place] [facility] [address] [place] [address] Carmen Hartmann 04/24/2025 9:00 AM EST P[place] Att[facility] [place] [facility] [address] [place] [phone] 04/24/2025 4:30 PM EST PACE Home Care / P[place] Home Visit [facility] [place] [facility] [address] [place] [phone] Ashley Eastman 04/25/2025 8:00 AM EST PACE Home Care / P[place] Home Visit [facility] [place] [facility] [address] [place] [phone] Carmen Hartmann 04/25/2025 9:30 AM EST PACE Home Care / P[place] Home Visit [facility] [place] [facility] [address] [place] [phone] Ralph Loyola 04/25/2025 4:30 PM EST PACE Home Care / PACE Home Visit [facility] [place] [facility] [address] [place] [phone] Ashley Eastman 04/26/2025 8:30 AM EST PACE Home Care / P[place] Home Visit [facility] [place] [facility] [address] [place] [phone] Marysol Diaz 04/26/2025 12:00 PM EST PACE Home Care / P[place] Home Visit [facility] [place] [facility] [address] [place] [phone] Natali Sanford 04/26/2025 5:30 PM EST PACE Home Care / P[place] Home Visit [facility] [place] [facility] [address] [place] [phone] Marysol Diaz 04/27/2025 8:30 AM EST PACE Home Care / P[place] Home Visit [facility] [place] [facility] [address] [place] [phone] Marysol Diaz 04/27/2025 12:00 PM EST PACE Home Care / P[place] Home Visit [facility] [place] [facility] [address] [place] [phone] Natali Sanford 04/27/2025 4:30 PM EST PACE Home Care / PACE Home Visit [facility] [place] [facility] [address] [place] [phone] Marysol Diaz 04/27/2025 5:30 PM EST PACE Home Care / PACE Home Visit [facility] [place] [facility] [address] [place] [phone] Marysol Diaz 04/28/2025 8:30 AM EST PACE Home Care / P[place] Home Visit [facility] [place] [facility] [address] [place] [phone] Carmen Hartmann 04/28/2025 4:30 PM EST PACE Home Care / P[place] Home Visit [facility] [place] [facility] [address] [place] [phone] Ashley Eastman 04/29/2025 8:30 AM EST PACE Home Care / P[place] Home Visit [facility] [place] [facility] [address] [place] [phone] Carmen Hartmann 04/29/2025 4:30 PM EST PACE Home Care / PACE Home Visit [facility] [place] [facility] [address] [place] [address] Ashley Eastman 04/30/2025 8:30 AM EST PACE Home Care / PACE Home Visit [facility] [place] [facility] [address] [place] [address] Carmen Hartmann 04/30/2025 4:30 PM EST PACE Home Care / PACE Home Visit [facility] [place] [facility] [address] [place] [address] Ashley Eastman 05/01/2025 8:30 AM EST PACE Home Care / P[facility] Visit [facility] [place] [facility] [address] [place] [address] Carmen Hartmann 05/01/2025 9:00 AM EST PACE Attendance/[facility] [place] [facility] [address] [place] [address] 05/01/2025 11:30 AM EST [facility] Support [facility] [place] [address] [place] [address] 05/01/2025 4:30 PM EST PACE Home Care / PACE Home Visit [facility] [place] [facility] [address] [place] [address] Ashley Eastman 05/02/2025 8:00 AM EST PACE Home Care / PACE Home Visit [facility] [place] [facility] [address] [place] [address] Carmen Hartmann 05/02/2025 9:30 AM EST PACE Home Care / PACE Home Visit [facility] [place] [facility] [address] [place] [address] Ralph Loyola 05/02/2025 4:30 PM EST PACE Home Care / PACE Home Visit [facility] [place] [facility] [address] [place] [address] Ashley Eastman 05/03/2025 12:00 PM EST PACE Home Care / PACE Home Visit [facility] [place] [facility] [address] [place] [address] Dena Chavez 05/04/2025 12:00 PM EST PACE Home Care / PACE Home Visit [facility] [place] [facility] [address] [place] [address] Dena Chavez 05/05/2025 8:30 AM EST PACE Home Care / PACE Home Visit [facility] [place] [facility] [address] [place] [address] Carmen Hartmann 05/05/2025 4:30 PM EST PACE Home Care / P[place] Home Visit [facility] [place] [facility] [address] [place] [phone] Ashley Eastman 05/06/2025 8:30 AM EST PACE Home Care / P[place] Home Visit [facility] [place] [facility] [address] [place] [address] Carmen Hartmann 05/06/2025 4:30 PM EST PACE Home Care / [place] Home Visit [facility] [place] [facility] [address] [place] [phone] Ashley Eastman 05/07/2025 8:30 AM EST PACE Home Care / P[place] Home Visit [facility] [place] [facility] [address] [place] [address] Carmen Hartmann 05/07/2025 4:30 PM EST PACE Home Care / P[facility] Home Visit [facility] [place] [facility] [address] [place] [address] Ashley Eastman 05/08/2025 8:30 AM EST PACE Home Care / [facility] Home Visit [facility] [place] [facility] [address] [place] [address] Carmen Hartmann 05/08/2025 9:00 AM EST [facility] Att[place] [facility] [place] [facility] [address] [place] [address] 05/08/2025 4:30 PM EST PACE Home Care / [place] [facility] Visit [facility] [place] [facility] [address] [place] [phone] Ashley Eastman 05/09/2025 8:00 AM EST PACE Home Care / [facility] Home Visit [facility] [place] [facility] [address] [place] [phone] Carmen Hartmann 05/09/2025 9:30 AM EST PACE Home Care / [facility] [facility] Visit [facility] [place] [facility] [address] [place] [phone] Ralph Loyola 05/09/2025 4:30 PM EST PACE Home Care / [facility] Home Visit [facility] [place] [facility] [address] [place] [phone] Ashley Eastman 05/10/2025 8:30 AM EST PACE Home Care / [facility] [facility] Visit [facility] [place] [facility] [address] [place] [phone] Marysol Diaz 05/10/2025 12:00 PM EST PACE Home Care / [facility] [facility] Visit [facility] [place] [facility] [address] [place] [phone] Natali Sanford 05/10/2025 5:30 PM EST PACE Home Care / [place] [facility] Visit [facility] [place] [facility] [address] [place] [phone] Marysol Diaz 05/11/2025 8:30 AM EST PACE Home Care / [facility] Home Visit [facility] [place] [facility] [address] [place] [phone] Marysol Diaz 05/11/2025 12:00 PM EST PACE Home Care / [place] [facility] Visit [facility] [place] [facility] [address] [place] [phone] Natali Sanford 05/11/2025 4:30 PM EST PACE Home Care / [place] [facility] Visit [facility] [place] [facility] [address] [place] [phone] Marysol Diaz 05/11/2025 5:30 PM EST PACE Home Care / [place] [facility] Visit [facility] [place] [facility] [address] [place] [phone] Marysol Diaz 05/12/2025 8:30 AM EST PACE Home Care / [place] [facility] Visit [facility] [place] [facility] [address] [place] [phone] Carmen Hartmann 05/12/2025 4:30 PM EST PACE Home Care / [place] [facility] Visit [facility] [place] [facility] [address] [place] [phone] Ashley Eastman 05/13/2025 8:30 AM EST PACE Home Care / [place] Home Visit [facility] [place] [facility] [address] [place] [phone] Carmen Hartmann 05/13/2025 11:00 AM EST Office Visit [facility] [place] [facility] [address] [place] [phone] Regulo Ivy, ALONSO [facility] [address] [address] Brigette East LPN 05/13/2025 4:30 PM EST PACE Home Care / [place] Home Visit [facility] [place] [facility] [address] [place] [phone] Ashley Eastman 05/14/2025 8:30 AM EST PACE Home Care / P[place] Home Visit [facility] [place] [facility] [address] [place] [address] Carmen Hartmann 05/14/2025 4:30 PM EST PACE Home Care / P[place] Home Visit [facility] [place] [facility] [address] [place] [address] Ashley Eastman 05/15/2025 8:30 AM EST PACE Home Care / [place] [facility] Visit [facility] [place] [facility] [address] [place] [address] Carmen Hartmann 05/15/2025 9:00 AM EST [facility] Att[facility] [facility] [place] [facility] [address] [place] [address] 05/15/2025 4:30 PM EST PACE Home Care / [place] [facility] Visit [facility] [place] [facility] [address] [place] [address] Ashley Eatsman 05/16/2025 8:00 AM EST PACE Home Care / [facility] [facility] Visit [facility] [place] [facility] [address] [place] [address] Carmen Hartmann 05/16/2025 9:30 AM EST PACE Home Care / [facility] [facility] Visit [facility] [place] [facility] [address] [place] [address] Ralph Loyola 05/16/2025 4:30 PM EST PACE Home Care / [place] [facility] Visit [facility] [place] [facility] [address] [place] [address] Ashley Eastman 05/17/2025 12:00 PM EST PACE Home Care / [facility] [facility] Visit [facility] [place] [facility] [address] [place] [address] Dena Chavez 05/18/2025 12:00 PM EST PACE Home Care / [facility] Visit [facility] [place] [facility] [address] [place] [address] Dena Chavez 05/19/2025 8:30 AM EST PACE Home Care / [facility] [place] [facility] [address] [place] [address] Carmen Hartmann 05/19/2025 4:30 PM EST PACE Home Care / [facility] Visit [facility] [place] [facility] [address] [place] [address] Ashley Eastman 05/20/2025 8:30 AM EST PACE Home Care / [facility] Visit [facility] [place] [facility] [address] [place] [address] Carmen Hartmann 05/20/2025 4:30 PM EST PACE Home Care / P[facility] Visit [facility] [place] [facility] [address] [place] [address] Ashley Eastman 05/21/2025 8:30 AM EST PACE Home Care / [facility] Visit [facility] [place] [facility] [address] [place] [phone] Carmen Hartmann 05/21/2025 4:30 PM EST PACE Home Care / P[place] [facility] Visit [facility] [place] [facility] [address] [place] [phone] Ashley Eastman 05/22/2025 8:30 AM EST PACE Home Care / [facility] [facility] Visit [facility] [place] [facility] [address] [place] [phone] Carmen Hartmann 05/22/2025 9:00 AM EST [facility] Attendance[facility] [place] [facility] [address] [place] [address] 05/22/2025 4:30 PM EST PACE Home Care / [place] [facility] Visit [facility] [place] [facility] [address] [place] [address] Ashley Eastman 05/23/2025 8:00 AM EST PACE Home Care / [facility] Visit [facility] [place] [facility] [address] [place] [phone] Carmen Hartmann 05/23/2025 9:30 AM EST PACE Home Care / [place] [facility] Visit [facility] [place] [facility] [address] [place] [phone] Ralph Loyola 05/23/2025 4:30 PM EST PACE Home Care / [place] [facility] Visit [facility] [place] [facility] [address] [place] [phone] Ashley Eastman 05/24/2025 8:30 AM EST PACE Home Care / [place] [facility] [place] [facility] [address] [place] [phone] Marysol Diaz 05/24/2025 12:00 PM EST PACE Home Care / [place] [facility] Visit [facility] [place] [facility] [address] [place] [phone] Natali Sanford 05/24/2025 5:30 PM EST PACE Home Care / [place] [facility] Visit [facility] [place] [facility] [address] [place] [phone] Marysol Diaz 05/25/2025 8:30 AM EST PACE Home Care / [place] [facility] Visit [facility] [place] [facility] [address] [place] [phone] Mayrsol Diaz 05/25/2025 12:00 PM EST PACE Home Care / [place] [facility] [place] [facility] [address] [place] [phone] Natali Sanford 05/25/2025 4:30 PM EST PACE Home Care / [place] [facility] [place] [facility] [address] [place] [phone] Marysol Diaz 05/25/2025 5:30 PM EST PACE Home Care / [place] [facility] [place] [facility] [address] [place] [phone] Marysol Diaz 05/26/2025 8:30 AM EST PACE Home Care / [place] [facility] [place] [facility] [address] [place] [phone] Carmen Hartmann 05/26/2025 4:30 PM EST PACE Home Care / [place] [facility] [place] [facility] [address] [place] [phone] Ashley Eastman 05/27/2025 8:30 AM EST PACE Home Care / [place] [facility] [place] [facility] [address] [place] [phone] Carmen Hartmann 05/27/2025 4:30 PM EST PACE Home Care / [place] [facility] [place] [facility] [address] [place] [phone] Ashley Eastman 05/28/2025 8:30 AM EST PACE Home Care / [place] [facility] [place] [facility] [address] [place] [phone] Carmen Hartmann 05/28/2025 4:30 PM EST PACE Home Care / [place] [facility] [place] [facility] [address] [place] [phone] Ashley Eastman 05/29/2025 8:30 AM EST PACE Home Care / [place] [facility] [place] [facility] [address] [place] [phone] Carmen Hartmann 05/29/2025 9:00 AM EST [facility] [facility] [place] [facility] [address] [place] [address] 05/29/2025 4:30 PM EST PACE Home Care / [place] [facility] [place] [facility] [address] [place] [phone] Ashley Eastman 05/30/2025 8:00 AM EST PACE Home Care / [place] [facility] [place] [facility] [address] [place] [phone] Carmen Hartmann 05/30/2025 9:30 AM EST PACE Home Care / [place] [facility] [place] [facility] [address] [place] [phone] Ralph Loyola 05/30/2025 4:30 PM EST PACE Home Care / [place] [facility] [place] [facility] [address] [place] [phone] Ashley Eastman 06/05/2025 9:00 AM EST [facility] Att[facility] [facility] [place] [facility] [address] [place] [phone] 06/10/2025 11:00 AM EST [facility] Visit [facility] [place] [facility] [address] [place] [phone] Michelle Castillo MD [address] [place] [address] Brigette East LPN 06/12/2025 9:00 AM EST [facility] Att[place] [facility] [place] [facility] [address] [place] [phone] 06/19/2025 9:00 AM EST [place] [facility] [place] [facility] [address] [place] [phone] 06/26/2025 9:00 AM EDT [facility] Att[facility] [facility] [place] [facility] [address] [place] [phone] 06/27/2025 1:20 PM EDT Office Visit Gastro[facility] - [address] [place] [address] Analisa Perez, ALONSO [address] [place] [address] 07/03/2025 9:00 AM EDT PACE Attendance/[place] [facility] [place] [facility] [address] [place] [address] 07/10/2025 9:00 AM EDT [place] Att[place] [facility] [place] [facility] [address] [place] [id number] 07/17/2025 9:00 AM EDT [facility] Attendance/Day [email or web address] [place] [facility] [address] [place] [phone] 07/17/2025 3:30 PM EDT PACE External Visit [facility] [address] [place] [phone] 07/24/2025 9:00 AM EDT [facility] Attendance[email or web address] [place] [facility] [address] [place] [phone] 07/31/2025 9:00 AM EDT [facility] Attendance/[facility] [place] [facility] [address] [place] [phone] 08/07/2025 9:00 AM EDT [facility] Attendance/[facility] [place] [facility] [address] [place] [phone] 08/14/2025 9:00 AM EDT P[facility] Attendance/[email or web address] [place] [facility] [address] [place] [phone] 08/21/2025 9:00 AM EDT [facility] Attendance[facility] [place] [facility] [address] [place] [phone] 08/28/2025 9:00 AM EDT [facility] Attendance[facility] [place] [facility] [address] [place] [phone] 09/04/2025 9:00 AM EDT [facility] Attend[facility] [place] [facility] [address] [place] [phone] 09/11/2025 9:00 AM EDT [facility] Attendance/[facility] [place] [facility] [address] [place] [phone] 09/18/2025 9:00 AM EDT [facility] Attendance/[facility] [place] [facility] [address] [place] [phone] 09/25/2025 9:00 AM EDT [facility] Attendance/[facility] [place] [facility] [address] [place] [phone] 10/02/2025 9:00 AM EDT [facility] Attendance/[facility] [place] [facility] [address] [place] [phone] 10/09/2025 9:00 AM EDT [facility] Attendance/[facility] [place] [facility] [address] [place] [phone] documented as of this encounter Visit Diagnoses Not on filedocumented in this encounter Care Teams Loan Funder Relationship Specialty Start Date End Date Regulo Ivy NP [address] [place] [id number] PCP - General PACE 06/07/24 documented as of this encounter
--- OUTSIDE RECORDS SUMMARY | 2025-04-01 08:30 | XMS_ITS | Encounter Summary ---
Author Organization [facility] Address [address] [place] [address] Care Team Providers Care Loss Prevention Agent Name Role Phone Regulo Ivy NP Primary Care Provider Encounter Details Date Type Department Care Team (Late st Contact Info) Description 04/01/2025 8:30 AM EST PACE Home Care / PACE Home Visit [facility] [address] [place] [address] Carmen Hartmann Social History Tobacco [...] care for your loved ones. For example, director of early childhood or elderly care for an older adult? [...] In [facility] Services [address] [place] [address] Carmen Hartmann 04/02/2025 4:30 PM EST PACE Home Care / [facility] [place] [facility] [address] [place] [address] Ashley Eastman 04/03/2025 8:30 AM EST PACE Home Care / [facility] Home Visit [facility] [place] [facility] [address] [place] [address] Carmen Hartmann 04/03/2025 9:00 AM EST [facility] Attend[facility] [place] [facility] [address] [place] [address] 04/03/2025 4:30 PM EST PACE Home Care / PACE [facility] Visit [facility] [place] [facility] [address] [place] [phone] Ashley Eastman 04/04/2025 [facility] [place] [facility] [address] [place] [address] Regulo Ivy, ALONSO [address] [address] Constipation, unspecified constipation type 04/04/2025 8:00 AM EST PACE Home Care / PACE [facility] [place] [facility] [address] [place] [address] Titi Thomas 04/04/2025 8:30 AM EST PACE Home Care / P[facility] Home Visit [facility] [place] [facility] [address] [place] [address] Marysol Diaz 04/04/2025 4:30 PM EST PACE Home Care / PACE Home Visit [facility] [place] [facility] [address] [place] [address] Ashley Eastman 04/05/2025 12:00 PM EST PACE Home Care / PACE Home Visit [facility] [place] [facility] [address] [place] [phone] Dena Chavez 04/06/2025 12:00 PM EST PACE Home Care / PACE Home Visit [facility] [place] [facility] [address] [place] [address] Dena Chavez 2025 8:30 AM EST PACE Home Care / PACE Home Visit [facility] [place] [facility] [address] [place] [address] Carmen Hartmann 2025 4:30 PM EST PACE Home Care / [facility] [place] [facility] [address] [place] [address] Ashley Eastman 04/08/2025 8:30 AM EST PACE Home Care / [facility] [place] [facility] [address] [place] [address] Carmen Hartmann 04/08/2025 4:30 PM EST PACE Home Care / [facility] [place] [facility] [address] [place] [phone] Ashley Eastman 04/09/2025 8:30 AM EST PACE Home Care / [facility] [place] [facility] [address] [place] [phone] Carmen Hartmann 04/09/2025 4:30 PM EST PACE Home Care / [facility] [place] [facility] [address] [place] [address] Ashley Eastman 04/10/2025 6:05 AM EST PACE Home Care / [facility] [place] [facility] [address] [place] [phone] Jackeline Mcrae 04/10/2025 9:00 AM EST [facility] [place] [facility] [address] [place] [address] 04/10/2025 4:30 PM EST PACE Home Care / [place] [facility] [place] [facility] [address] [place] [address] Ashley Eastman 04/11/2025 8:00 AM EST PACE Home Care / [facility] [place] [facility] [address] [place] [address] Carmen Hartmann 04/11/2025 9:30 AM EST PACE Home Care / [facility] [place] [facility] [address] [place] [address] Carmen Hartmann 04/11/2025 4:30 PM EST PACE Home Care / [facility] Home [facility] [place] [facility] [address] [place] [address] Ashley Eastman 04/12/2025 8:30 AM EST PACE Home Care / [facility] Home Visit [facility] [place] [facility] [address] [place] [address] Marysol Diaz 04/12/2025 12:00 PM EST PACE Home Care / [facility] Home Visit [facility] [place] [facility] [address] [place] [address] Natali Sanford 04/12/2025 5:30 PM EST PACE Home Care / [facility] Home Visit [facility] [place] [facility] [address] [place] [address] Marysol Diaz 04/13/2025 8:30 AM EST PACE Home Care / [facility] Home [facility] [place] [facility] [address] [place] [address] Marysol Diaz 04/13/2025 12:00 PM EST PACE Home Care / [facility] Home Visit [facility] [place] [facility] [address] [place] [address] Natali Sanford 04/13/2025 4:30 PM EST PACE Home Care / [facility] Home [facility] [place] [facility] [address] [place] [address] Marysol Diaz 04/13/2025 5:30 PM EST PACE Home Care / [facility] [place] [facility] [address] [place] [address] Marysol Diaz 04/14/2025 8:30 AM EST PACE Home Care / [facility] Home [facility] [place] [facility] [address] [place] [address] Carmen Hartmann 04/14/2025 4:30 PM EST PACE Home Care / [facility] [address] [place] [address] Ashley Eastman 04/15/2025 8:30 AM EST PACE Home Care / [facility] [place] [facility] [address] [place] [address] Carmen Hartmann 04/15/2025 11:00 AM EST [facility] Visit [facility] [place] [facility] [address] [place] [address] Regulo Ivy, ALONSO [address] [place] [address] Brigette East LPN 04/15/2025 4:30 PM EST PACE Home Care / [facility] [place] [facility] [address] [place] [address] Ashley Eastman 04/16/2025 8:30 AM EST PACE Home Care / [facility] [place] [facility] [address] [place] [phone] Carmen Hartmann 04/16/2025 4:30 PM EST PACE Home Care / [facility] Home Visit [facility] [place] [facility] [address] [place] [address] Ashley Eastman 04/17/2025 8:30 AM EST PACE Home Care / [facility] Home Visit [facility] [place] [facility] [address] [place] [address] Carmen Hartmann 04/17/2025 9:00 AM EST [facility] [place] [facility] [address] [place] [address] 04/17/2025 4:30 PM EST PACE Home Care / [facility] [place] [facility] [address] [place] [address] Ashley Eastman 04/18/2025 8:00 AM EST PACE Home Care / [facility] Visit [facility] [place] [facility] [address] [place] [phone] Carmen Hartmann 04/18/2025 4:30 PM EST PACE Home Care / [facility] [place] [facility] [address] [place] [address] Ashley Eastman 04/19/2025 12:00 PM EST PACE Home Care / [facility] [place] [facility] [address] [place] [address] Dena Chavez 04/20/2025 12:00 PM EST PACE Home Care / [facility] [place] [facility] [address] [place] [address] Dena Chavez 04/21/2025 8:30 AM EST PACE Home Care / [facility] [place] [facility] [address] [place] [address] Carmen Hartmann 04/21/2025 4:30 PM EST PACE Home Care / [facility] [place] [facility] [address] [place] [address] Ashley Eastman 04/22/2025 8:30 AM EST PACE Home Care / [facility] [place] [facility] [address] [place] [address] Carmen Hartmann 04/22/2025 4:30 PM EST PACE Home Care / [facility] [place] [facility] [address] [place] [address] Ashley Eastman 04/23/2025 8:30 AM EST PACE Home Care / [facility] Home Visit [facility] [place] [facility] [address] [place] [address] Carmen Hartmann 04/23/2025 4:30 PM EST PACE Home Care / [facility] Visit [facility] [place] [facility] [address] [place] [address] Ashley Eastman 04/24/2025 8:30 AM EST PACE Home Care / [facility] [place] [facility] [address] [place] [address] Carmen Hartmann 04/24/2025 9:00 AM EST [facility] [place] [facility] [address] [place] [phone] 04/24/2025 4:30 PM EST PACE Home Care / [facility] [place] [facility] [address] [place] [address] Ashley Eastamn 04/25/2025 8:00 AM EST PACE Home Care / [facility] Visit [facility] [place] [facility] [address] [place] [address] Carmen Hartmann 04/25/2025 9:30 AM EST PACE Home Care / [facility] [place] [facility] [address] [place] [address] Ralph Loyola 04/25/2025 4:30 PM EST PACE Home Care / [facility] [place] [facility] [address] [place] [phone] Ashley Eastman 04/26/2025 8:30 AM EST PACE Home Care / [facility] [place] [facility] [address] [place] [phone] Marysol Diaz 04/26/2025 12:00 PM EST PACE Home Care / [facility] Visit [facility] [place] [facility] [address] [place] [address] Natali Sanford 04/26/2025 5:30 PM EST PACE Home Care / [facility] Visit [facility] [place] [facility] [address] [place] [phone] Marysol Diaz 04/27/2025 8:30 AM EST PACE Home Care / [facility] Visit [facility] [place] [facility] [address] [place] [phone] Marysol Diaz 04/27/2025 12:00 PM EST PACE Home Care / [facility] Visit [facility] [place] [facility] [address] [place] [phone] Natali Sanford 04/27/2025 4:30 PM EST PACE Home Care / [facility] Visit [facility] [place] [facility] [address] [place] [phone] Marysol Diaz 04/27/2025 5:30 PM EST PACE Home Care / [facility] [place] [facility] [address] [place] [phone] Marysol Diaz 04/28/2025 8:30 AM EST PACE Home Care / [facility] [address] [place] [address] Carmen Hartmann 04/28/2025 4:30 PM EST PACE Home Care / [facility] [place] [facility] [address] [place] [address] Ashley Eastman 04/29/2025 8:30 AM EST PACE Home Care / P[facility] Visit [facility] [place] [facility] [address] [place] [address] Carmen Hartmann 04/29/2025 4:30 PM EST PACE Home Care / [facility] Visit [facility] [place] [facility] [address] [place] [address] Ashley Eastman 04/30/2025 8:30 AM EST PACE Home Care / PACE [facility] Visit [facility] [place] [facility] [address] [place] [address] Carmen Hartmann 04/30/2025 4:30 PM EST PACE Home Care / PACE Home Visit [facility] [place] [facility] [address] [place] [address] Ashley Eastman 05/01/2025 8:30 AM EST PACE Home Care / [facility] Visit [facility] [place] [facility] [address] [place] [address] Carmen Hartmann 05/01/2025 9:00 AM EST [facility]ACE Attendance[facility] [place] [facility] [address] [place] [address] 05/01/2025 11:30 AM EST [facility] [place] [address] [place] [address] 05/01/2025 4:30 PM EST PACE Home Care / PACE [facility] Visit [facility] [place] [facility] [address] [place] [address] Ashley Eastman 05/02/2025 8:00 AM EST PACE Home Care / PACE [facility] Visit [facility] [place] [facility] [address] [place] [address] Carmen Hartmann 05/02/2025 9:30 AM EST PACE Home Care / PACE Home Visit [facility] [place] [facility] [address] [place] [address] Ralph Loyola 05/02/2025 4:30 PM EST PACE Home Care / PACE Home Visit [facility] [place] [facility] [address] [place] [address] Ashley Eastman 05/03/2025 12:00 PM EST PACE Home Care / [facility] [place] [facility] [address] [place] [address] Dena Chavez 05/04/2025 12:00 PM EST PACE Home Care / P[facility] Home Visit [facility] [place] [facility] [address] [place] [address] Dena Chavez 05/05/2025 8:30 AM EST PACE Home Care / [facility] Home Visit [facility] [place] [facility] [address] [place] [address] Carmen Hartmann 05/05/2025 4:30 PM EST PACE Home Care / [facility] [place] [facility] [address] [place] [phone] Ashley Eastman 05/06/2025 8:30 AM EST PACE Home Care / [facility] [address] [place] [address] Carmen Hartmann 05/06/2025 4:30 PM EST PACE Home Care / [facility] [place] [facility] [address] [place] [address] Ashley Eastman 05/07/2025 8:30 AM EST PACE Home Care / [facility] [place] [facility] [address] [place] [address] Carmen Hartmann 05/07/2025 4:30 PM EST PACE Home Care / [facility] Home [facility] [place] [facility] [address] [place] [address] Ashley Eastman 05/08/2025 8:30 AM EST PACE Home Care / [facility] [place] [facility] [address] [place] [address] Carmen Hartmann 05/08/2025 9:00 AM EST [facility] [place] [facility] [address] [place] [address] 05/08/2025 4:30 PM EST PACE Home Care / [facility] [place] [facility] [address] [place] [address] Ashley Eastman 05/09/2025 8:00 AM EST PACE Home Care / [facility] [place] [facility] [address] [place] [address] Carmen Hartmann 05/09/2025 9:30 AM EST PACE Home Care / [facility] [address] [place] [address] Ralph Loyola 05/09/2025 4:30 PM EST PACE Home Care / [facility] [place] [facility] [address] [place] [address] Ashley Eastman 05/10/2025 8:30 AM EST PACE Home Care / [facility] [place] [facility] [address] [place] [address] Marysol Diaz 05/10/2025 12:00 PM EST PACE Home Care / [facility] [place] [facility] [address] [place] [address] Natali Sanford 05/10/2025 5:30 PM EST PACE Home Care / [facility] [place] [facility] [address] [place] [address] Marysol Diaz 05/11/2025 8:30 AM EST PACE Home Care / [facility] [place] [facility] [address] [place] [address] Marysol Diaz 05/11/2025 12:00 PM EST PACE Home Care / [facility] [place] [facility] [address] [place] [address] Natali Snaford 05/11/2025 4:30 PM EST PACE Home Care / [facility] [place] [facility] [address] [place] [address] Marysol Diaz 05/11/2025 5:30 PM EST PACE Home Care / [facility] [place] [facility] [address] [place] [address] Marysol Diaz 05/12/2025 8:30 AM EST PACE Home Care / [facility] [place] [facility] [address] [place] [address] Carmen Hartmann 05/12/2025 4:30 PM EST PACE Home Care / [facility] [place] [facility] [address] [place] [address] Ashley Eastman 05/13/2025 8:30 AM EST PACE Home Care / [facility] [place] [facility] [address] [place] [address] Carmen Hartmann 05/13/2025 11:00 AM EST [facility] Visit [facility] [place] [facility] [address] [place] [phone] Regulo Ivy, ALONSO [facility] [address] [address] Brigette East LPN 05/13/2025 4:30 PM EST PACE Home Care / [facility] Visit [facility] [place] [facility] [address] [place] [phone] Ashley Eastman 05/14/2025 8:30 AM EST PACE Home Care / [facility] [place] [facility] [address] [place] [address] Carmen Hartmann 05/14/2025 4:30 PM EST PACE Home Care / [facility] [address] [place] [address] Ashley Eastman 05/15/2025 8:30 AM EST PACE Home Care / [facility] Visit [facility] [place] [facility] [address] [place] [address] Carmen Hartmann 05/15/2025 9:00 AM EST [facility] [facility] [place] [facility] [address] [place] [address] 05/15/2025 4:30 PM EST PACE Home Care / [facility] [place] [facility] [address] [place] [address] Ashley Eastman 05/16/2025 8:00 AM EST PACE Home Care / [facility] Visit [facility] [place] [facility] [address] [place] [address] Carmen Hartmann 05/16/2025 9:30 AM EST PACE Home Care / [facility] Visit [facility] [place] [facility] [address] [place] [address] Ralph Loyola 05/16/2025 4:30 PM EST PACE Home Care / [facility] [place] [facility] [address] [place] [address] Ashley Eastman 05/17/2025 12:00 PM EST PACE Home Care / [facility] [place] [facility] [address] [place] [address] Dena Chavez 05/18/2025 12:00 PM EST PACE Home Care / [facility] [place] [facility] [address] [place] [address] Dena Chavez 05/19/2025 8:30 AM EST PACE Home Care / [facility] [address] [place] [address] Carmen Hartmann 05/19/2025 4:30 PM EST PACE Home Care / [facility] [place] [facility] [address] [place] [address] Ashley Eastman 05/20/2025 8:30 AM EST PACE Home Care / [facility] [place] [facility] [address] [place] [address] Carmen Hartmann 05/20/2025 4:30 PM EST PACE Home Care / [facility] [address] [place] [address] Ashley Eastman 05/21/2025 8:30 AM EST PACE Home Care / [facility] [place] [facility] [address] [place] [address] Carmen Hartmann 05/21/2025 4:30 PM EST PACE Home Care / [facility] Visit [facility] [place] [facility] [address] [place] [address] Ashley Eastman 05/22/2025 8:30 AM EST PACE Home Care / [facility] Visit [facility] [place] [facility] [address] [place] [address] Carmen Hartmann 05/22/2025 9:00 AM EST [facility] Att[facility] [place] [facility] [address] [place] [address] 05/22/2025 4:30 PM EST PACE Home Care / [facility] [place] [facility] [address] [place] [address] Ashley Eastman 05/23/2025 8:00 AM EST PACE Home Care / [facility] [place] [facility] [address] [place] [address] Carmen Hartmann 05/23/2025 9:30 AM EST PACE Home Care / [facility] [place] [facility] [address] [place] [address] Ralph Loyola 05/23/2025 4:30 PM EST PACE Home Care / [facility] [place] [facility] [address] [place] [address] Ashley Eastman 05/24/2025 8:30 AM EST PACE Home Care / [facility] [place] [facility] [address] [place] [address] Marysol Diaz 05/24/2025 12:00 PM EST PACE Home Care / [facility] [place] [facility] [address] [place] [address] Natali Sanford 05/24/2025 5:30 PM EST PACE Home Care / [facility] [place] [facility] [address] [place] [address] Marysol Diaz 05/25/2025 8:30 AM EST PACE Home Care / [facility] [place] [facility] [address] [place] [address] Marysol Diaz 05/25/2025 12:00 PM EST PACE Home Care / [facility] [place] [facility] [address] [place] [address] Natali Sanford 05/25/2025 4:30 PM EST PACE Home Care / [facility] [place] [facility] [address] [place] [address] Marysol Diaz 05/25/2025 5:30 PM EST PACE Home Care / [facility] [place] [facility] [address] [place] [address] Marysol Diaz 05/26/2025 8:30 AM EST PACE Home Care / [facility] [place] [facility] [address] [place] [phone] Carmen Hartmann 05/26/2025 4:30 PM EST PACE Home Care / [facility] [place] [facility] [address] [place] [address] Ashley Eastman 05/27/2025 8:30 AM EST PACE Home Care / [facility] [place] [facility] [address] [place] [address] Carmen Hartmann 05/27/2025 4:30 PM EST PACE Home Care / [facility] [place] [facility] [address] [place] [address] Ashley Eastman 05/28/2025 8:30 AM EST PACE Home Care / [facility] [place] [facility] [address] [place] [address] Carmen Hartmann 05/28/2025 4:30 PM EST PACE Home Care / [facility] [place] [facility] [address] [place] [address] Ashley Eastman 05/29/2025 8:30 AM EST PACE Home Care / [facility] [place] [facility] [address] [place] [address] Carmen Hartmann 05/29/2025 9:00 AM EST [facility] [place] [facility] [address] [place] [address] 05/29/2025 4:30 PM EST PACE Home Care / [facility] [place] [facility] [address] [place] [address] Ashley Eastman 05/30/2025 8:00 AM EST P[facility] Home Care / [facility] [place] [facility] [address] [place] [address] Carmen Hartmann 05/30/2025 9:30 AM EST PACE Home Care / [facility] [place] [facility] [address] [place] [address] Ralph Loyola 05/30/2025 4:30 PM EST PACE Home Care / [facility] [place] [facility] [address] [place] [address] Ashley Eastman 06/05/2025 9:00 AM EST [facility] [place] [facility] [address] [place] [address] 06/10/2025 11:00 AM EST [facility] [place] [facility] [address] [place] [phone] Michelle Castillo MD [address] [place] [id number] Brigette East LPN 06/12/2025 9:00 AM EST [facility] Attend[facility] [place] [facility] [address] [place] [phone] 06/19/2025 9:00 AM EST [facility] Att[facility] [facility] [place] [facility] [address] [place] [phone] 06/26/2025 9:00 AM EDT [facility] Att[facility] [facility] [place] [facility] [address] [place] [phone] 06/27/2025 1:20 PM EDT Office Visit Gastroenterology - [address] [place] [address] Analisa Perez, ALONSO [address] [place] [address] 07/03/2025 9:00 AM EDT [facility] Att[facility] [facility] [place] [facility] [address] [place] [address] 07/10/2025 9:00 AM EDT [facility] [facility] [place] [facility] [address] [place] [phone] 07/17/2025 9:00 AM EDT [facility]ACE Attendance/[facility] [place] [facility] [address] [place] [phone] 07/17/2025 3:30 PM EDT PACE External Visit [facility] [address] [place] [phone] 07/24/2025 9:00 AM EDT [facility] Attendance[facility] [place] [facility] [address] [place] [phone] 07/31/2025 9:00 AM EDT [facility] Attendance[facility] [place] [facility] [address] [place] [phone] 08/07/2025 9:00 AM EDT [facility] Attendance[facility] [place] [facility] [address] [place] [phone] 08/14/2025 9:00 AM EDT [facility] Attendance[facility] [place] [facility] [address] [place] [phone] 08/21/2025 9:00 AM EDT [facility] Attendance[facility] [place] [facility] [address] [place] [phone] 08/28/2025 9:00 AM EDT [facility] Att[facility] [facility] [place] [facility] [address] [place] [phone] 09/04/2025 9:00 AM EDT [facility] Att[facility]ance[facility] [facility] [place] [facility] [address] [place] [phone] 09/11/2025 9:00 AM EDT [facility] Attendance[facility] [place] [facility] [place] [facility] [address] [place] [phone] 09/18/2025 9:00 AM EDT [facility] Attendance[facility] [place] [facility] [place] [facility] [address] [place] [phone] 09/25/2025 9:00 AM EDT [facility] Attendance[facility] [place] [facility] [place] [facility] [address] [place] [phone] 10/02/2025 9:00 AM EDT [facility] Attendance[facility] [place] [facility] [place] [facility] [address] [place] [phone] 10/09/2025 9:00 AM EDT [facility] Attendance/[facility] [place] [facility] [address] [place] [phone] documented as of this encounter Visit Diagnoses Not on filedocumented in this encounter Care Teams Loss Prevention Agent Relationship Specialty Start Date End Date Regulo Ivy NP [address] [place] [id number] PCP - General PACE 06/07/24 documented as of this encounter
--- OUTSIDE RECORDS SUMMARY | 2025-04-01 13:15 | XMS_ITS | Encounter Summary ---
Author Organization [facility] Address [address] [place] [address] Care Team Providers Care Beef Splitter Name Role Phone Regulo Ivy NP Primary Care Provider Reason for Visit * Consultation (Routine) - Closed Specialty Diagnoses / Procedures Referred By Dodie t Referred To Contact Neurology Diagnoses History of petit-mal seizures Michelle Castillo MD [address] [facility] [address] [place] [address] Phone: tel: fax:[phone] [facility] [address] Phone: tel: Referral ID Status Reason Start Date Expiration Date V isits Requested Visits Authorized [id number] Closed Specialty Services Required 01/07/2025 01/07/2026 1 1 Encounter Details Date Type Department Care Team ([facility] st Contact Info) Description 04/01/2025 1:15 PM EST PACE [facility] [address] [place] [address] Social History Tobacco Use Types [...] your loved ones. 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 [...] [facility] [address] [place] [phone] Carmen Hartmann 04/02/2025 4:30 PM EST PACE Home Care / PACE Home Visit [facility] [place] [facility] [address] [place] [address] Ashley Eastman 04/03/2025 8:30 AM EST PACE Home Care / PACE Home Visit [facility] [place] [facility] [address] [place] [phone] Carmen Hartmann 04/03/2025 9:00 AM EST PACE Attendance/[facility] [place] [facility] [address] [place] [address] 04/03/2025 4:30 PM EST PACE Home Care / PACE Home Visit [facility] [place] [facility] [address] [place] [phone] Ashley Eastman 04/04/2025 [facility] [place] [facility] [address] [place] [phone] Regulo Ivy, ALONSO [address] [address] Constipation, unspecified constipation type 04/04/2025 8:00 AM EST PACE Home Care / PACE Home Visit [facility] [place] [facility] [address] [place] [phone] Titi Thomas 04/04/2025 8:30 AM EST PACE Home Care / PACE Home Visit [facility] [place] [facility] [address] [place] [phone] Marysol Diaz 04/04/2025 4:30 PM EST PACE Home Care / PACE Home Visit [facility] [place] [facility] [address] [place] [phone] Ashley Eastman 04/05/2025 12:00 PM EST PACE Home Care / P[facility] Home Visit [facility] [place] [facility] [address] [place] [phone] Dena Chavez 04/06/2025 12:00 PM EST PACE Home Care / [facility] [place] [facility] [address] [place] [address] Dena Chavez 2025 8:30 AM EST PACE Home Care / [facility] Home Visit [facility] [place] [facility] [address] [place] [address] Carmen Harmtann 2025 4:30 PM EST PACE Home Care / [facility] [facility] Visit [facility] [place] [facility] [address] [place] [phone] Ashley Eastman 04/08/2025 8:30 AM EST PACE Home Care / [facility] Home Visit [facility] [place] [facility] [address] [place] [phone] Carmen Hartmann 04/08/2025 4:30 PM EST PACE Home Care / [facility] Visit [facility] [place] [facility] [address] [place] [phone] Ashley Eastman 04/09/2025 8:30 AM EST PACE Home Care / [facility] Home Visit [facility] [place] [facility] [address] [place] [phone] Carmen Hartmann 04/09/2025 4:30 PM EST PACE Home Care / [facility] Home Visit [facility] [place] [facility] [address] [place] [phone] Ashley Eastman 04/10/2025 6:05 AM EST PACE Home Care / [place] Home Visit [facility] [place] [facility] [address] [place] [phone] Jackeline Mcrae 04/10/2025 9:00 AM EST [facility] [place] [facility] [place] [facility] [address] [place] [address] 04/10/2025 4:30 PM EST PACE Home Care / [place] [facility] [place] [facility] [address] [place] [address] Ashley Eastman 04/11/2025 8:00 AM EST PACE Home Care / [facility] Home Visit [facility] [place] [facility] [address] [place] [address] Carmen Hartmann 04/11/2025 9:30 AM EST PACE Home Care / [facility] Home Visit [facility] [place] [facility] [address] [place] [address] Carmen Hartmann 04/11/2025 4:30 PM EST PACE Home Care / [facility] Home Visit [facility] [place] [facility] [address] [place] [address] Ashley Eastman 04/12/2025 8:30 AM EST PACE Home Care / [facility] Home Visit [facility] [place] [facility] [address] [place] [address] Marysol Diaz 04/12/2025 12:00 PM EST PACE Home Care / [place] Home Visit [facility] [place] [facility] [address] [place] [phone] Natali Sanford 04/12/2025 5:30 PM EST PACE Home Care / [facility] Home Visit [facility] [place] [facility] [address] [place] [address] Marysol Diaz 04/13/2025 8:30 AM EST PACE Home Care / [place] Home Visit [facility] [place] [facility] [address] [place] [phone] Marysol Diaz 04/13/2025 12:00 PM EST PACE Home Care / [facility] [facility] Visit [facility] [place] [facility] [address] [place] [phone] Natali Sanford 04/13/2025 4:30 PM EST PACE Home Care / [place] Home Visit [facility] [place] [facility] [address] [place] [address] Marysol Diaz 04/13/2025 5:30 PM EST PACE Home Care / [place] [facility] Visit [facility] [place] [facility] [address] [place] [address] Marysol Diaz 04/14/2025 8:30 AM EST PACE Home Care / [place] Home Visit [facility] [place] [facility] [address] [place] [phone] Carmen Hartmann 04/14/2025 4:30 PM EST PACE Home Care / [place] Home Visit [facility] [place] [facility] [address] [place] [phone] Ashley Eastman 04/15/2025 8:30 AM EST PACE Home Care / [place] Home Visit [facility] [place] [facility] [address] [place] [phone] Carmen Hartmann 04/15/2025 11:00 AM EST Office Visit [facility] [place] [facility] [address] [place] [phone] Regulo Ivy, ALONSO [address] [address] Brigette East LPN 04/15/2025 4:30 PM EST PACE Home Care / [place] Home Visit [facility] [place] [facility] [address] [place] [phone] Ashley Eastman 04/16/2025 8:30 AM EST PACE Home Care / [facility] Home Visit [facility] [place] [facility] [address] [place] [address] Carmen Hartmann 04/16/2025 4:30 PM EST PACE Home Care / [facility] Visit [facility] [place] [facility] [address] [place] [address] Ashley Eastman 04/17/2025 8:30 AM EST PACE Home Care / [facility] Home Visit [facility] [place] [facility] [address] [place] [address] Carmen Hartmann 04/17/2025 9:00 AM EST PACE Attendance[facility] [place] [facility] [address] [place] [address] 04/17/2025 4:30 PM EST PACE Home Care / [facility] [facility] Visit [facility] [place] [facility] [address] [place] [address] Ashley Eastman 04/18/2025 8:00 AM EST PACE Home Care / P[facility] Home Visit [facility] [place] [facility] [address] [place] [phone] Carmen Hartmann 04/18/2025 4:30 PM EST PACE Home Care / [facility] Home Visit [facility] [place] [facility] [address] [place] [phone] Ashley Eastman 04/19/2025 12:00 PM EST PACE Home Care / [place] Home Visit [facility] [place] [facility] [address] [place] [phone] Dena Chavez 04/20/2025 12:00 PM EST PACE Home Care / [facility] Home Visit [facility] [place] [facility] [address] [place] [phone] Dena Chavez 04/21/2025 8:30 AM EST PACE Home Care / [place] [facility] Visit [facility] [place] [facility] [address] [place] [phone] Carmen Hartmann 04/21/2025 4:30 PM EST PACE Home Care / [place] [facility] Visit [facility] [place] [facility] [address] [place] [address] Ashley Eastman 04/22/2025 8:30 AM EST PACE Home Care / P[place] Home Visit [facility] [place] [facility] [address] [place] [address] Carmen Hartmann 04/22/2025 4:30 PM EST PACE Home Care / [place] [facility] Visit [facility] [place] [facility] [address] [place] [phone] Ashley Eastman 04/23/2025 8:30 AM EST PACE Home Care / [place] Home Visit [facility] [place] [facility] [address] [place] [phone] Carmen Hartmann 04/23/2025 4:30 PM EST PACE Home Care / P[place] Home Visit [facility] [place] [facility] [address] [place] [phone] Ashley Eastman 04/24/2025 8:30 AM EST PACE Home Care / P[place] [facility] Visit [facility] [place] [facility] [address] [place] [phone] Carmen Hartmann 04/24/2025 9:00 AM EST P[facility] Att[facility]ance[facility] [place] [facility] [address] [place] [phone] 04/24/2025 4:30 PM EST PACE Home Care / [facility] [facility] Visit [facility] [place] [facility] [address] [place] [phone] Ashley Eastman 04/25/2025 8:00 AM EST PACE Home Care / [place] [facility] Visit [facility] [place] [facility] [address] [place] [phone] Carmen Hartmann 04/25/2025 9:30 AM EST PACE Home Care / [place] [facility] Visit [facility] [place] [facility] [address] [place] [phone] Nir Ralph 04/25/2025 4:30 PM EST PACE Home Care / P[place] Home Visit [facility] [place] [facility] [address] [place] [phone] Tyrakailee Ashley 04/26/2025 8:30 AM EST PACE Home Care / [place] Home Visit [facility] [place] [facility] [address] [place] [phone] Marysol Diaz 04/26/2025 12:00 PM EST PACE Home Care / [place] [facility] Visit [facility] [place] [facility] [address] [place] [phone] Natali Sanford 04/26/2025 5:30 PM EST PACE Home Care / [facility] [facility] Visit [facility] [place] [facility] [address] [place] [phone] Marysol Diaz 04/27/2025 8:30 AM EST PACE Home Care / [place] [facility] Visit [facility] [place] [facility] [address] [place] [phone] Marysol Diaz 04/27/2025 12:00 PM EST PACE Home Care / [place] [facility] Visit [facility] [place] [facility] [address] [place] [phone] Natali Sanford 04/27/2025 4:30 PM EST PACE Home Care / [facility] [facility] Visit [facility] [place] [facility] [address] [place] [phone] Marysol Diaz 04/27/2025 5:30 PM EST PACE Home Care / P[facility] Visit [facility] [place] [facility] [address] [place] [phone] Marysol Diaz 04/28/2025 8:30 AM EST PACE Home Care / [facility] [facility] Visit [facility] [place] [facility] [address] [place] [phone] Carmen Hartmann 04/28/2025 4:30 PM EST PACE Home Care / PACE Home Visit [facility] [place] [facility] [address] [place] [address] Ashley Eastman 04/29/2025 8:30 AM EST PACE Home Care / PACE Home Visit [facility] [place] [facility] [address] [place] [address] Carmen Harmtann 04/29/2025 4:30 PM EST PACE Home Care / PACE Home Visit [facility] [place] [facility] [address] [place] [phone] Ashley Eastman 04/30/2025 8:30 AM EST PACE Home Care / PACE Home Visit [facility] [place] [facility] [address] [place] [phone] Carmen Hartmann 04/30/2025 4:30 PM EST PACE Home Care / PACE Home Visit [facility] [place] [facility] [address] [place] [phone] Ashley Eastman 05/01/2025 8:30 AM EST PACE Home Care / PACE Home Visit [facility] [place] [facility] [address] [place] [phone] Carmen Hartmann 05/01/2025 9:00 AM EST PACE Attendance[facility] [place] [facility] [address] [place] [address] 05/01/2025 11:30 AM EST Clinical Support [facility] [place] [address] [place] [address] 05/01/2025 4:30 PM EST PACE Home Care / [facility] [place] [facility] [address] [place] [address] Ashley Esatman 05/02/2025 8:00 AM EST PACE Home Care / P[facility] Visit [facility] [place] [facility] [address] [place] [address] Carmen Hartmann 05/02/2025 9:30 AM EST PACE Home Care / P[facility] Visit [facility] [place] [facility] [address] [place] [address] Ralph Loyola 05/02/2025 4:30 PM EST PACE Home Care / P[place] [facility] Visit [facility] [place] [facility] [address] [place] [phone] Ashley Eastman 05/03/2025 12:00 PM EST PACE Home Care / PACE [facility] Visit [facility] [place] [facility] [address] [place] [phone] Dena Chavez 05/04/2025 12:00 PM EST PACE Home Care / [facility] Visit [facility] [place] [facility] [address] [place] [phone] Dena Chavez 05/05/2025 8:30 AM EST PACE Home Care / [facility] [place] [facility] [address] [place] [phone] Carmen Hartmann 05/05/2025 4:30 PM EST PACE Home Care / [facility] Visit [facility] [place] [facility] [address] [place] [phone] Ashley Eastman 05/06/2025 8:30 AM EST PACE Home Care / [facility] [place] [facility] [address] [place] [phone] Carmen Hartmann 05/06/2025 4:30 PM EST PACE Home Care / [facility] [place] [facility] [address] [place] [phone] Ashley Eastman 05/07/2025 8:30 AM EST PACE Home Care / [facility] [place] [facility] [address] [place] [address] Carmen Hartmann 05/07/2025 4:30 PM EST PACE Home Care / [facility] [place] [facility] [address] [place] [address] Ashley Eastman 05/08/2025 8:30 AM EST PACE Home Care / [facility] [place] [facility] [address] [place] [address] Carmen Hartmann 05/08/2025 9:00 AM EST [facility] [facility] [place] [facility] [address] [place] [address] 05/08/2025 4:30 PM EST PACE Home Care / [facility] [place] [facility] [address] [place] [address] Ashley Eastman 05/09/2025 8:00 AM EST PACE Home Care / [facility] [place] [facility] [address] [place] [address] Carmen Hartmann 05/09/2025 9:30 AM EST PACE Home Care / [facility] [place] [facility] [address] [place] [address] Ralph Loyola 05/09/2025 4:30 PM EST PACE Home Care / [facility] [place] [facility] [address] [place] [address] Ashley Eastman 05/10/2025 8:30 AM EST PACE Home Care / [facility] [place] [facility] [address] [place] [address] Marysol Diaz 05/10/2025 12:00 PM EST PACE Home Care / [facility] [place] [facility] [address] [place] [address] Natali Sanford 05/10/2025 5:30 PM EST PACE Home Care / [facility] [place] [facility] [address] [place] [address] Marysol Diaz 05/11/2025 8:30 AM EST PACE Home Care / [facility] Visit [facility] [place] [facility] [address] [place] [address] Marysol Diaz 05/11/2025 12:00 PM EST PACE Home Care / [facility] [place] [facility] [address] [place] [phone] Natali Sanford 05/11/2025 4:30 PM EST PACE Home Care / [facility] Visit [facility] [place] [facility] [address] [place] [phone] Marysol Diaz 05/11/2025 5:30 PM EST PACE Home Care / [facility] Visit [facility] [place] [facility] [address] [place] [phone] Marysol Diaz 05/12/2025 8:30 AM EST PACE Home Care / [facility] Visit [facility] [place] [facility] [address] [place] [phone] Carmen Hartmann 05/12/2025 4:30 PM EST PACE Home Care / [facility] [place] [facility] [address] [place] [phone] Ashley Eastman 05/13/2025 8:30 AM EST PACE Home Care / [facility] Visit [facility] [place] [facility] [address] [place] [phone] Carmen Hartmann 05/13/2025 11:00 AM EST [facility] Visit [facility] [place] [facility] [address] [place] [phone] Regulo Ivy, ALONSO [address] [address] Brigette East LPN 05/13/2025 4:30 PM EST PACE Home Care / [facility] [facility] [place] [facility] [address] [place] [phone] Ashley Eastman 05/14/2025 8:30 AM EST PACE Home Care / [facility] [facility] Visit [facility] [place] [facility] [address] [place] [phone] Carmen Hartmann 05/14/2025 4:30 PM EST PACE Home Care / [place] [facility] [place] [facility] [address] [place] [phone] Ashley Eastman 05/15/2025 8:30 AM EST PACE Home Care / [facility] [facility] Visit [facility] [place] [facility] [address] [place] [phone] Carmen Hartmann 05/15/2025 9:00 AM EST P[facility] Att[facility] [facility] [place] [facility] [address] [place] [phone] 05/15/2025 4:30 PM EST PACE Home Care / [facility] [facility] [place] [facility] [address] [place] [phone] Ashley Eastman 05/16/2025 8:00 AM EST PACE Home Care / [facility] [place] [facility] [address] [place] [phone] Carmen Hartmann 05/16/2025 9:30 AM EST PACE Home Care / [facility] [place] [facility] [address] [place] [phone] Ralph Loyola 05/16/2025 4:30 PM EST PACE Home Care / [facility] [place] [facility] [address] [place] [address] Ashley Eastman 05/17/2025 12:00 PM EST PACE Home Care / [facility] [place] [facility] [address] [place] [phone] Dena Chavez 05/18/2025 12:00 PM EST PACE Home Care / [facility] [place] [facility] [address] [place] [phone] Dena Chavez 05/19/2025 8:30 AM EST PACE Home Care / [facility] [place] [facility] [address] [place] [phone] Carmen Hartmann 05/19/2025 4:30 PM EST PACE Home Care / [facility] [place] [facility] [address] [place] [phone] Ashley Eastmna 05/20/2025 8:30 AM EST PACE Home Care / [facility] Visit [facility] [place] [facility] [address] [place] [phone] Carmen Hartmann 05/20/2025 4:30 PM EST PACE Home Care / [facility] [place] [facility] [address] [place] [phone] Ashley Eastman 05/21/2025 8:30 AM EST PACE Home Care / [facility] [place] [facility] [address] [place] [phone] Carmen Hartmann 05/21/2025 4:30 PM EST PACE Home Care / [facility] [place] [facility] [address] [place] [phone] Ashley Eastman 05/22/2025 8:30 AM EST PACE Home Care / [facility] [place] [facility] [address] [place] [address] Carmen Hartmann 05/22/2025 9:00 AM EST [facility] [place] [facility] [address] [place] [address] 05/22/2025 4:30 PM EST PACE Home Care / [facility] [place] [facility] [address] [place] [phone] Ashley Eastman 05/23/2025 8:00 AM EST PACE Home Care / [facility] [place] [facility] [address] [place] [phone] Carmen Hartmann 05/23/2025 9:30 AM EST PACE Home Care / [facility] [place] [facility] [address] [place] [phone] Ralph Loyola 05/23/2025 4:30 PM EST PACE Home Care / [facility] [place] [facility] [address] [place] [phone] Ashley Eastman 05/24/2025 8:30 AM EST PACE Home Care / [facility] [place] [facility] [address] [place] [phone] Marysol Diaz 05/24/2025 12:00 PM EST PACE Home Care / [facility] [place] [facility] [address] [place] [phone] Natali Sanford 05/24/2025 5:30 PM EST PACE Home Care / [facility] [place] [facility] [address] [place] [phone] Marysol Diaz 05/25/2025 8:30 AM EST PACE Home Care / [facility] [place] [facility] [address] [place] [address] Marysol Diaz 05/25/2025 12:00 PM EST PACE Home Care / [facility] [place] [facility] [address] [place] [address] Natali Sanford 05/25/2025 4:30 PM EST PACE Home Care / [facility] [place] [facility] [address] [place] [phone] Marysol Diaz 05/25/2025 5:30 PM EST PACE Home Care / [facility] [place] [facility] [address] [place] [phone] Marysol Diaz 05/26/2025 8:30 AM EST PACE Home Care / [facility] [place] [facility] [address] [place] [phone] Carmen Hartmann 05/26/2025 4:30 PM EST PACE Home Care / [facility] [place] [facility] [address] [place] [phone] Ashley Eastman 05/27/2025 8:30 AM EST PACE Home Care / [facility] [place] [facility] [address] [place] [phone] Carmen Hartmann 05/27/2025 4:30 PM EST PACE Home Care / [facility] [place] [facility] [address] [place] [phone] Ashley Eastman 05/28/2025 8:30 AM EST PACE Home Care / [facility] [place] [facility] [address] [place] [phone] Carmen Hartmann 05/28/2025 4:30 PM EST PACE Home Care / [facility] [place] [facility] [address] [place] [phone] Ashley Eastman 05/29/2025 8:30 AM EST P[facility] Home Care / [facility] [place] [facility] [address] [place] [address] Carmen Hartmann 05/29/2025 9:00 AM EST [facility] [facility] [place] [facility] [address] [place] [address] 05/29/2025 4:30 PM EST PACE Home Care / [facility] [place] [facility] [address] [place] [phone] Ashley Eastman 05/30/2025 8:00 AM EST PACE Home Care / [facility] [place] [facility] [address] [place] [phone] Carmen Hartmann 05/30/2025 9:30 AM EST PACE Home Care / [facility] [place] [facility] [address] [place] [phone] Ralph Loyola 05/30/2025 4:30 PM EST PACE Home Care / [facility] [place] [facility] [address] [place] [phone] Ashley Eastman 06/05/2025 9:00 AM EST [facility] [facility] [place] [facility] [address] [place] [address] 06/10/2025 11:00 AM EST [facility] [place] [facility] [address] [place] [phone] Michelle Castillo MD [address] [place] [phone] Brigette East LPN 06/12/2025 9:00 AM EST PACE Attendance/Day [facility] [facility] [address] [place] [address] 06/19/2025 9:00 AM EST [facility] Att[facility] [address] [place] [address] 06/26/2025 9:00 AM EDT [facility] aMr[facility] [address] [place] [address] 06/27/2025 1:20 PM EDT Office Visit Gastroenterology - [address] [place] [address] Analisa Perez, [facility] [address] [place] [address] 07/03/2025 9:00 AM EDT [facility] [place] [place] [facility] [address] [place] [phone] 07/10/2025 9:00 AM EDT [facility] [place] [facility] [place] [facility] [address] [address] 07/17/2025 9:00 AM EDT [facility] [place] [facility] [place] [facility] [address] [address] 07/17/2025 3:30 PM EDT PACE External Visit [facility] [address] [place] [phone] 07/24/2025 9:00 AM EDT [facility] Att[facility] [address] [place] [phone] 07/31/2025 9:00 AM EDT [facility] [address] [place] [phone] 08/07/2025 9:00 AM EDT [facility] Attendance[facility]Day Center [facility] [address] [place] [address] 08/14/2025 9:00 AM EDT [facility] [place] [place] [facility] [address] [place] [phone] 08/21/2025 9:00 AM EDT [facility] [place] [place] [facility] [address] [place] [phone] 08/28/2025 9:00 AM EDT [facility] [address] [place] [phone] 09/04/2025 9:00 AM EDT [facility] [address] [place] [phone] 09/11/2025 9:00 AM EDT [facility] [address] [place] [phone] 09/18/2025 9:00 AM EDT [facility] [address] [place] [phone] 09/25/2025 9:00 AM EDT [facility] [place] [facility] [place] [facility] [address] [address] 10/02/2025 9:00 AM EDT [facility] [place] [facility] [place] [facility] [address] [address] 10/09/2025 9:00 AM EDT [facility] [place] [facility] [place] [facility] [address] [address] documented as of this encounter Visit Diagnoses Not on filedocumented in this encounter Orders Outpatient Referral Count Last Ordered Date Fir st Ordered Date AMB REFERRAL TO NEUROLOGY 1 04/01/2025 documented in this encounter Care Teams Beef Splitter Relationship Specialty Start Date End Date Regulo Ivy NP [address] [place] [id number] PCP - General PACE 06/07/24 documented as of this encounter
--- NOTE | 2025-04-01 13:37 | A.OFFVIS_ITS ---
Intake Visit Reasons: Seizures Allergies ibuprofen Allergy (Verified 03/06/25 09:34) Wheezing oxcarbazepine (From Trileptal) Allergy (Verified 03/06/25 09:34) Unknown peanut Allergy (Verified 03/06/25 09:34) Unknown quetiapine (From Seroquel) Allergy (Verified 03/06/25 09:34) Vomiting Medication List - Last Reconciled 04/01/25 by Dorian Gaxiola MD acetaminophen 975 mg (3 x 325 mg) PO TID clopidogrel 75 mg PO DAILY ergocalciferol (vitamin D2) (Vitamin D2) 1,250 mcg PO Q30D fluphenazine HCl 10 mg PO BID fluticasone furoate-vilanterol 100-25 mcg/dose (Breo Ellipta) 1 inh inhalation RDAILY gabapentin 200 mg (2 x 100 mg) PO BID levetiracetam 1,500 mg (3 x 500 mg) PO BID levothyroxine (Synthroid) 100 mcg PO DAILY@0600 lisinopril 5 mg See Protocol PO DAILY lorazepam 0.5 mg PO BEDTIME lorazepam 0.5 mg PO DAILY@1200 metformin ER 1,000 mg (2 x 500 mg) PO DAILY@1700 miconazole nitrate 2% (Inzo Antifungal) 1 appl See Protocol topical BID mirabegron ER (Myrbetriq) 50 mg PO DAILY montelukast 10 mg PO BEDTIME nitroglycerin (Nitrostat) 0.4 mg sublingual Q5M PRN olanzapine 20 mg (2 x 10 mg) PO BEDTIME omeprazole 20 mg PO DAILY@0630 polyethylene glycol 3350 17 grams PO BID pyridoxine (vitamin B6) 25 mg PO DAILY sennosides-docusate sodium 8.6-50 mg (Senna Plus) 1 tab PO BID trazodone 50 mg PO BEDTIME HPI Comments Details: 64 years old woman with underlying diagnosis of seizure disorder following a neurologist in [facility] presently was admitted on psychiatric floor for management of worsening of schizoaffective disorder. Apparently she was noted to have a seizure-like spell and this consultation was requested. She said that her usual seizures were eye fluttering type when her eyes would flutter for couple of seconds and this time she kind of spaced out for couple of seconds. She never had generalized convulsion or passing out or falling down type of seizures. I noted that she already has been taking 3 antiepileptics for 1 or other reason including levetiracetam, valproic acid, and gabapentin. [facility] Medical History Stable angina History of melanoma HTN (hypertension) Mild persistent asthma FERMÍN (obstructive sleep apnea) Diabetic peripheral neuropathy NPH (normal pressure hydrocephalus) Seizure disorder CKD (chronic kidney disease) Hypothyroidism Type 2 diabetes mellitus Schizoaffective disorder Social History Household Members: None Household Members Other:: pt states she lives with her whom she got to last week Housing: Apartment Housing Other:: senior housing Do you presently have visiting nurse or other home services: Yes (1-2 x's week) Comment: on 5 minute checks Patient Tobacco Use Status: Never used Tobacco e-Cigarette/Vaping Use: Never Used Second Hand Smoke Exposure: No Advance Directives Date on File: 03/21/24 service: No Sexual orientation: Straight/Heterosexual Physical Exam Neuro Other: Mental Status: Alert and oriented to person, place, and time. Normal attention. Normal spontaneous speech, fluency, and comprehension. No obvious issues with mood and memory. Affect is appropriate. Cranial Nerves: CN II: Visual jaramillo full to confrontation, visual acuity intact. CN III, IV, : Pupils equal, round, reactive to light and accommodation. Extraocular movements are normal. CN V: Facial sensation is normal. CN VII: Facial movements symmetrical. CN VIII: Hearing intact to bedside conversation is normal. CN IX, X: Palate elevates symmetrically. CN XI: Shoulder shrug and head turn symmetrical. CN XII: Tongue midline without atrophy or fasciculations. Slow and cautious gait with a walker Extrapyramidal: Full facial expressions and blinking. No rigidity. Movements are appropriate with no tremor or abnormality. Speech: Normal; no dysarthria or tremor. Assessment & Plan Assessment & Plan (1) Seizure disorder: Code(s): G40.909 - Epilepsy, unspecified, not intractable, without status epilepticus Category: Medical (2) Cerebral ventriculomegaly: Comment: CT brain WO at [facility] in 2024: Mod ventriculomegaly MRI brain WO at [facility] in Jan 2025: Moderate ventriculomegaly Code(s): G93.89 - Other specified disorders of brain Category: Medical (3) Multifactorial gait disorder: Code(s): R26.89 - Other abnormalities of gait and mobility Category: Medical Plan Impression: a: Seizure disorder, prediagnosis b: Psychotic disorder c: Multifactorial gait disorder Rec: a: Continue levetiracetam 500mg, 3 twice a daybouc b: Walker c: EEG Coding Level of Care Code Est Pt Level 4 (98805) Diagnoses Seizure disorder G40.909 Cerebral ventriculomegaly G93.89 Multifactorial gait disorder R26.89
--- OUTSIDE RECORDS SUMMARY | 2025-04-01 17:07 | XMS_ITS | Encounter Summary ---
Author Organization [facility] Address [address] [place] [address] Care Team Providers Care Toe Lining Closer Name Role Phone Regulo Ivy NP Primary Care Provider [phone] Encounter Details Date Type Department Care Team (Late st Contact Info) Description 03/28/2025 [facility] [address] [place] [phone] Regulo Ivy NP [address] [id number] Constipation, unspecified constipation type Social History Tobacco [...] care for your loved ones. For example, childrens club attendant or elderly care for an older adult? [...] [place] [facility] [address] [place] [phone] Carmen Hartmann 04/02/2025 4:30 PM EST PACE Home Care / PACE Home Visit [facility] [place] [facility] [address] [place] [phone] Ashley Eastman 04/03/2025 8:30 AM EST PACE Home Care / PACE Home Visit [facility] [place] [facility] [address] [place] [phone] Carmen Hartmann 04/03/2025 9:00 AM EST [facility] [place] [facility] [address] [place] [address] 04/03/2025 4:30 PM EST PACE Home Care / [facility] [place] [facility] [address] [place] [address] Ashley Eastman 04/04/2025 [facility] [place] [facility] [address] [place] [address] Regulo Ivy, ALONSO [address] [address] Constipation, unspecified constipation type 04/04/2025 8:00 AM EST PACE Home Care / [facility] [place] [facility] [address] [place] [phone] Titi Thomas 04/04/2025 8:30 AM EST PACE Home Care / [facility] Home Visit [facility] [place] [facility] [address] [place] [phone] Marysol Diaz 04/04/2025 4:30 PM EST PACE Home Care / [facility] Home Visit [facility] [place] [facility] [address] [place] [phone] Ashley Eastman 04/05/2025 12:00 PM EST PACE Home Care / [facility] Home Visit [facility] [place] [facility] [address] [place] [phone] Dena Chavez 04/06/2025 12:00 PM EST PACE Home Care / [facility] Visit [facility] [place] [facility] [address] [place] [phone] Dena Chavez 2025 8:30 AM EST P[facility] Home Care / [facility] [place] [facility] [address] [place] [address] Carmen Hartmann 2025 4:30 PM EST PACE Home Care / [facility] Home Visit [facility] [place] [facility] [address] [place] [address] Ashley Eastman 04/08/2025 8:30 AM EST PACE Home Care / [facility] Home Visit [facility] [place] [facility] [address] [place] [address] Carmen Hartmann 04/08/2025 4:30 PM EST PACE Home Care / [facility] [place] [facility] [address] [place] [phone] Ashley Eastman 04/09/2025 8:30 AM EST PACE Home Care / [facility] [place] [facility] [address] [place] [phone] Carmen Hartmann 04/09/2025 4:30 PM EST PACE Home Care / [facility] [place] [facility] [address] [place] [phone] Ashley Eastman 04/10/2025 6:05 AM EST PACE Home Care / [facility] Visit [facility] [place] [facility] [address] [place] [phone] Jackeline Mcrae 04/10/2025 9:00 AM EST [facility] [facility] [place] [facility] [address] [place] [address] 04/10/2025 4:30 PM EST PACE Home Care / [facility] [place] [facility] [address] [place] [phone] Ashley Eastman 04/11/2025 8:00 AM EST PACE Home Care / [facility] [place] [facility] [address] [place] [phone] Carmen Hartmann 04/11/2025 9:30 AM EST PACE Home Care / [facility] Visit [facility] [address] [place] [address] Carmen Hartmann 04/11/2025 4:30 PM EST PACE Home Care / [facility] [place] [facility] [address] [place] [address] Ashley Eastman 04/12/2025 8:30 AM EST PACE Home Care / [facility] [facility] [place] [facility] [address] [place] [phone] Marysol Diaz 04/12/2025 12:00 PM EST PACE Home Care / [facility] [address] [place] [address] Natali Sanford 04/12/2025 5:30 PM EST PACE Home Care / [facility] Home Visit [facility] [place] [facility] [address] [place] [phone] Marysol Diaz 04/13/2025 8:30 AM EST PACE Home Care / [facility] [facility] [place] [facility] [address] [place] [phone] Marysol Diaz 04/13/2025 12:00 PM EST PACE Home Care / [facility] [place] [facility] [address] [place] [phone] Natali Sanford 04/13/2025 4:30 PM EST PACE Home Care / [facility] [place] [facility] [address] [place] [phone] Marysol Diaz 04/13/2025 5:30 PM EST PACE Home Care / [facility] [address] [place] [phone] Marysol Diaz 04/14/2025 8:30 AM EST PACE Home Care / [facility] Home Visit [facility] [place] [facility] [address] [place] [address] Carmen Hartmann 04/14/2025 4:30 PM EST PACE Home Care / [facility] Home Visit [facility] [place] [facility] [address] [place] [phone] Ashley Eastman 04/15/2025 8:30 AM EST PACE Home Care / [facility] Visit [facility] [place] [facility] [address] [place] [phone] Carmen Hartmann 04/15/2025 11:00 AM EST Office Visit [facility] [place] [facility] [address] [place] [phone] Regulo Ivy, ALONSO [address] [place] [phone] Brigette East LPN 04/15/2025 4:30 PM EST PACE Home Care / [facility] Visit [facility] [place] [facility] [address] [place] [phone] Ashley Eastman 04/16/2025 8:30 AM EST PACE Home Care / [facility] Visit [facility] [place] [facility] [address] [place] [phone] Carmen Hartmann 04/16/2025 4:30 PM EST PACE Home Care / [facility] Visit [facility] [place] [facility] [address] [place] [phone] Ashley Eastman 04/17/2025 8:30 AM EST PACE Home Care / [facility] Visit [facility] [place] [facility] [address] [place] [phone] Carmen Hartmann 04/17/2025 9:00 AM EST PACE Attendance[facility] [place] [facility] [address] [place] [address] 04/17/2025 4:30 PM EST PACE Home Care / [facility] [place] [facility] [address] [place] [address] Ashley Eastman 04/18/2025 8:00 AM EST PACE Home Care / [facility] Home Visit [facility] [place] [facility] [address] [place] [address] Carmen Hartmann 04/18/2025 4:30 PM EST PACE Home Care / [facility] Visit [facility] [place] [facility] [address] [place] [address] Ashley Eastman 04/19/2025 12:00 PM EST PACE Home Care / [facility] Home Visit [facility] [place] [facility] [address] [place] [address] Dena Chavez 04/20/2025 12:00 PM EST PACE Home Care / [facility] Home Visit [facility] [place] [facility] [address] [place] [phone] Dena Chavez 04/21/2025 8:30 AM EST PACE Home Care / [facility] Visit [facility] [place] [facility] [address] [place] [phone] Caremn Hartmann 04/21/2025 4:30 PM EST PACE Home Care / [facility] Visit [facility] [address] [place] [phone] Ashley Eastman 04/22/2025 8:30 AM EST PACE Home Care / [facility] Visit [facility] [place] [facility] [address] [place] [phone] Carmen Hartmann 04/22/2025 4:30 PM EST PACE Home Care / [facility] Home Visit [facility] [address] [place] [address] Ashley Eastman 04/23/2025 8:30 AM EST PACE Home Care / P[facility] Home Visit [facility] [place] [facility] [address] [place] [address] Carmen Hartmann 04/23/2025 4:30 PM EST PACE Home Care / [facility] Home Visit [facility] [place] [facility] [address] [place] [address] Ashley Eastman 04/24/2025 8:30 AM EST PACE Home Care / [facility] Home Visit [facility] [place] [facility] [address] [place] [address] Carmen Hartmann 04/24/2025 9:00 AM EST PACE Attendance[facility] [place] [facility] [address] [place] [address] 04/24/2025 4:30 PM EST PACE Home Care / [facility] Visit [facility] [place] [facility] [address] [place] [address] Ashley Eastman 04/25/2025 8:00 AM EST PACE Home Care / [facility] Visit [facility] [place] [facility] [address] [place] [address] Carmen Hartmann 04/25/2025 9:30 AM EST PACE Home Care / [facility] Visit [facility] [place] [facility] [address] [place] [address] Ralph Loyola 04/25/2025 4:30 PM EST PACE Home Care / [facility] Home Visit [facility] [place] [facility] [address] [place] [address] Ashley Eastman 04/26/2025 8:30 AM EST PACE Home Care / [facility] Visit [facility] [place] [facility] [address] [place] [address] Marysol Diaz 04/26/2025 12:00 PM EST PACE Home Care / [facility] [place] [facility] [address] [place] [phone] Natali Sanford 04/26/2025 5:30 PM EST PACE Home Care / [facility] Visit [facility] [place] [facility] [address] [place] [phone] Marysol Diaz 04/27/2025 8:30 AM EST PACE Home Care / [facility] Visit [facility] [place] [facility] [address] [place] [phone] Marysol Diaz 04/27/2025 12:00 PM EST PACE Home Care / [facility] Visit [facility] [place] [facility] [address] [place] [phone] Natali Sanford 04/27/2025 4:30 PM EST PACE Home Care / [facility] Visit [facility] [place] [facility] [address] [place] [phone] Marysol Diaz 04/27/2025 5:30 PM EST PACE Home Care / [facility] Visit [facility] [place] [facility] [address] [place] [phone] Marysol Diaz 04/28/2025 8:30 AM EST PACE Home Care / [facility] [address] [place] [phone] Carmen Hartmann 04/28/2025 4:30 PM EST PACE Home Care / [facility] Visit [facility] [address] [place] [phone] Ashley Eastman 04/29/2025 8:30 AM EST PACE Home Care / [facility] Visit [facility] [address] [place] [phone] Carmen Hartmann 04/29/2025 4:30 PM EST PACE Home Care / [facility] Visit [facility] [address] [place] [address] Ashley Eastman 04/30/2025 8:30 AM EST PACE Home Care / [facility] Visit [facility] [place] [facility] [address] [place] [phone] Carmen Hartmann 04/30/2025 4:30 PM EST PACE Home Care / P[facility] Visit [facility] [place] [facility] [address] [place] [phone] Ashley Eastman 05/01/2025 8:30 AM EST PACE Home Care / PACE Home Visit [facility] [place] [facility] [address] [place] [phone] Carmen Hartmann 05/01/2025 9:00 AM EST PACE Attendance[facility] [place] [facility] [address] [place] [phone] 05/01/2025 11:30 AM EST [facility] Support [facility] [place] [address] [place] [phone] 05/01/2025 4:30 PM EST PACE Home Care / [facility] Visit [facility] [address] [place] [phone] Ashley Eastman 05/02/2025 8:00 AM EST PACE Home Care / [facility] Visit [facility] [place] [facility] [address] [place] [phone] Carmen Hartmann 05/02/2025 9:30 AM EST PACE Home Care / [facility] Visit [facility] [place] [facility] [address] [place] [phone] Ralph Loyola 05/02/2025 4:30 PM EST PACE Home Care / [facility] [address] [place] [address] Ashley Eastman 05/03/2025 12:00 PM EST PACE Home Care / [facility] Visit [facility] [address] [place] [address] Dena Chavez 05/04/2025 12:00 PM EST PACE Home Care / [facility] Visit [facility] [place] [facility] [address] [place] [phone] Dena Chavez 05/05/2025 8:30 AM EST PACE Home Care / [facility] Visit [facility] [address] [place] [phone] Carmen Hartmann 05/05/2025 4:30 PM EST PACE Home Care / [facility] Visit [facility] [address] [place] [phone] Ashley Eastman 05/06/2025 8:30 AM EST PACE Home Care / [facility] Visit [facility] [place] [facility] [address] [place] [phone] Carmen Hartmann 05/06/2025 4:30 PM EST PACE Home Care / [facility] Visit [facility] [address] [place] [phone] Ashley Eastman 05/07/2025 8:30 AM EST PACE Home Care / [facility] Visit [facility] [address] [place] [phone] Carmen Hartmann 05/07/2025 4:30 PM EST PACE Home Care / [facility] [address] [place] [phone] Ashley Eastman 05/08/2025 8:30 AM EST PACE Home Care / [facility] Visit [facility] [address] [place] [address] Carmen Hartmann 05/08/2025 9:00 AM EST [facility]ACE Attend[facility] [place] [facility] [address] [place] [address] 05/08/2025 4:30 PM EST PACE Home Care / [facility] [place] [facility] [address] [place] [phone] Ashley Eastman 05/09/2025 8:00 AM EST PACE Home Care / [facility] Visit [facility] [address] [place] [phone] Carmen Hartmann 05/09/2025 9:30 AM EST PACE Home Care / [facility] Visit [facility] [address] [place] [phone] Ralph Loyola 05/09/2025 4:30 PM EST PACE Home Care / [facility] [address] [place] [phone] Ashley Eastman 05/10/2025 8:30 AM EST PACE Home Care / [facility] Visit [facility] [place] [facility] [address] [place] [phone] Marysol Diaz 05/10/2025 12:00 PM EST PACE Home Care / [facility] [address] [place] [phone] Natali Sanford 05/10/2025 5:30 PM EST PACE Home Care / [facility] [place] [facility] [address] [place] [phone] Marysol Diaz 05/11/2025 8:30 AM EST PACE Home Care / [facility] [address] [place] [phone] Marysol Diaz 05/11/2025 12:00 PM EST PACE Home Care / [facility] [place] [facility] [address] [place] [phone] Natali Sanford 05/11/2025 4:30 PM EST PACE Home Care / [facility] [address] [place] [phone] Marysol Diaz 05/11/2025 5:30 PM EST PACE Home Care / [facility] [address] [place] [phone] Marysol Diaz 05/12/2025 8:30 AM EST PACE Home Care / [facility] [address] [place] [phone] Carmen Hartmann 05/12/2025 4:30 PM EST PACE Home Care / [facility] [address] [place] [phone] Ashley Eastman 05/13/2025 8:30 AM EST PACE Home Care / [facility] [address] [place] [phone] Carmen Hartmann 05/13/2025 11:00 AM EST [facility] Visit [facility] [place] [facility] [address] [place] [phone] Regulo Ivy, ALONSO [address] [place] [phone] Brigette East LPN 05/13/2025 4:30 PM EST PACE Home Care / [facility] [address] [place] [phone] Ashley Eastman 05/14/2025 8:30 AM EST PACE Home Care / [facility] [address] [place] [phone] Carmen Hartmann 05/14/2025 4:30 PM EST PACE Home Care / [facility] [address] [place] [phone] Ashley Eastman 05/15/2025 8:30 AM EST PACE Home Care / [facility] [address] [place] [phone] Carmen Hartmann 05/15/2025 9:00 AM EST [facility] Att[facility] [place] [facility] [address] [place] [phone] 05/15/2025 4:30 PM EST PACE Home Care / [facility] [address] [place] [phone] Ashley Eastman 05/16/2025 8:00 AM EST PACE Home Care / [facility] [address] [place] [phone] Carmen Hartmann 05/16/2025 9:30 AM EST PACE Home Care / [facility] [place] [facility] [address] [place] [phone] Ralph Loyola 05/16/2025 4:30 PM EST PACE Home Care / [facility] [address] [place] [phone] Ashley Eastman 05/17/2025 12:00 PM EST PACE Home Care / [facility] [place] [facility] [address] [place] [phone] Dena Chavez 05/18/2025 12:00 PM EST PACE Home Care / [facility] [address] [place] [phone] Dena Chavez 05/19/2025 8:30 AM EST P[facility] Home Care / [facility] [address] [place] [phone] Carmen Hartmann 05/19/2025 4:30 PM EST P[facility] Home [facility] / [facility] [place] [facility] [address] [place] [phone] Ashley Eastman 05/20/2025 8:30 AM EST P[facility] Home Care / [facility] [address] [place] [phone] Carmen Hartmann 05/20/2025 4:30 PM EST PACE Home Care / [facility] [address] [place] [phone] Ashley Eastman 05/21/2025 8:30 AM EST P[facility] Home [facility] / [facility] [address] [place] [phone] Carmen Harmtann 05/21/2025 4:30 PM EST PACE Home Care / [facility] [address] [place] [phone] Ashley Eastman 05/22/2025 8:30 AM EST P[facility] Home [facility] / [facility] [address] [place] [phone] Carmen Hartmann 05/22/2025 9:00 AM EST [facility] [facility] [place] [facility] [address] [place] [phone] 05/22/2025 4:30 PM EST P[facility] Home Care / [facility] [address] [place] [address] Ashley Eastman 05/23/2025 8:00 AM EST P[facility] Home Care / [facility] [address] [place] [phone] Carmen Hartmann 05/23/2025 9:30 AM EST P[facility] Home Care / [facility] [address] [place] [phone] Ralph Loyola 05/23/2025 4:30 PM EST PACE Home Care / [facility] [address] [place] [phone] Ashley Eastman 05/24/2025 8:30 AM EST P[facility] Home Care / [facility] [address] [place] [phone] Marysol Diaz 05/24/2025 12:00 PM EST P[facility] Home [facility] / [facility] [address] [place] [phone] Natali Sanford 05/24/2025 5:30 PM EST P[facility] Home [facility] / [facility] [address] [place] [phone] Marysol Diaz 05/25/2025 8:30 AM EST P[facility] Home [facility] / [facility] [address] [place] [phone] Marysol Diaz 05/25/2025 12:00 PM EST P[facility] Home [facility] / [facility] [address] [place] [phone] Natali Sanford 05/25/2025 4:30 PM EST P[facility] Home Care / [facility] [address] [place] [phone] Marysol Diaz 05/25/2025 5:30 PM EST P[facility] Home Care / [facility] [address] [place] [address] Marysol Diaz 05/26/2025 8:30 AM EST P[facility] Home Care / [facility] [address] [place] [phone] Carmen Hartmann 05/26/2025 4:30 PM EST P[facility] Home [facility] / [facility] [address] [place] [phone] Ashley Eastman 05/27/2025 8:30 AM EST P[facility] Home [facility] / [facility] [address] [place] [phone] Carmen Hartmann 05/27/2025 4:30 PM EST P[facility] Home [facility] / [facility] [address] [place] [phone] Ashley Eastman 05/28/2025 8:30 AM EST P[facility] Home [facility] / [facility] [address] [place] [phone] Carmen Hartmann 05/28/2025 4:30 PM EST P[facility] Home [facility] / [facility] [place] [facility] [address] [place] [phone] Ashley Eastman 05/29/2025 8:30 AM EST P[facility] Home [facility] / [facility] [address] [place] [phone] Carmen Hartmann 05/29/2025 9:00 AM EST [facility] Att[facility] [place] [facility] [address] [place] [phone] 05/29/2025 4:30 PM EST PACE Home Care / [facility] [place] [facility] [address] [place] [phone] Ashley Eastman 05/30/2025 8:00 AM EST P[facility] Home [facility] / [facility] [place] [facility] [address] [place] [phone] Carmen Hartmann 05/30/2025 9:30 AM EST P[facility] Home [facility] / [facility] [place] [facility] [address] [place] [phone] Ralph Loyola 05/30/2025 4:30 PM EST PACE Home Care / [facility] [place] [facility] [address] [place] [phone] Ashley Eastman 06/05/2025 9:00 AM EST PACE Attendance/[facility] [place] [facility] [address] [place] [phone] 06/10/2025 11:00 AM EST Office Visit [facility] [place] [facility] [address] [place] [phone] Michelle Castillo MD [address] [place] [phone] Brigette East LPN 06/12/2025 9:00 AM EST PACE Attendance/[place] [facility] [place] [facility] [address] [place] [phone] 06/19/2025 9:00 AM EST P[facility] Att[facility] [place] [facility] [address] [place] [phone] 06/26/2025 9:00 AM EDT [facility] Att[facility] [place] [facility] [address] [place] [phone] 06/27/2025 1:20 PM EDT Office Visit Gastroenterology - [address] [place] [address] Analisa Perez, [employer] OPERATOR [address] [place] [address] 07/03/2025 9:00 AM EDT [facility] [place] [facility] [address] [place] [phone] 07/10/2025 9:00 AM EDT [facility] Att[facility] [facility] [place] [facility] [address] [place] [phone] 07/17/2025 9:00 AM EDT [facility] [place] [facility] [address] [place] [phone] 07/17/2025 3:30 PM EDT [facility] External Visit [facility] [place] [address] [place] [phone] 07/24/2025 9:00 AM EDT [facility] Att[facility] [place] [facility] [address] [place] [phone] 07/31/2025 9:00 AM EDT [facility] [facility] [place] [facility] [address] [place] [phone] 08/07/2025 9:00 AM EDT [facility] [place] [facility] [address] [place] [phone] 08/14/2025 9:00 AM EDT [facility] [facility] [place] [facility] [address] [place] [phone] 08/21/2025 9:00 AM EDT [facility] [facility] [place] [facility] [address] [place] [phone] 08/28/2025 9:00 AM EDT [facility] Attendance[facility]Day [facility] [employer] [facility] [address] [place] [phone] 09/04/2025 9:00 AM EDT [facility] Att[facility] [address] [place] [phone] 09/11/2025 9:00 AM EDT [facility] Att[facility] [address] [place] [phone] 09/18/2025 9:00 AM EDT [facility] Att[facility] [place] [facility] [address] [place] [phone] 09/25/2025 9:00 AM EDT [facility] [facility] [place] [facility] [address] [place] [phone] 10/02/2025 9:00 AM EDT [facility] Att[facility] [place] [facility] [address] [place] [phone] 10/09/2025 9:00 AM EDT [facility] [facility] [place] [facility] [address] [place] [phone] documented as of this encounter Visit Diagnoses Diagnosis Constipation, unspecified constipation type Constipation, unspecified constipation type documented in this encounter Orders [facility] Service Orderables Count Last Ordered Date First Ordered Date [facility] 1 03/28/2025 documented in this encounter Care Teams Toe Lining Closer Relationship Specialty Start Date End Date Regulo Ivy NP [address] [place] [id number] PCP - General [facility] 06/07/24 documented as of this encounter
--- OUTSIDE RECORDS SUMMARY | 2025-04-01 17:08 | XMS_ITS | Encounter Summary ---
Author Organization [facility] Address [address] [place] [address] Care Team Providers Care Food Adviser Name Role Phone Regulo Ivy NP Primary Care Provider [phone] Reason for Visit * Reason Onset Date Comments Other 12/15/2024 Par called david reddy she would like to speak with someone from therapy next date center is open. Informed par center will be open on 12/17/24. Encounter Details Date Type Department Care Team (Late st Contact Info) Description 12/15/2024 PACE On-Call [facility] PACE Clinic [address] [place] [phone] Juliet Scott NP 200 [facility] [address] [place], [place] [id number] Social History Tobacco Use Types Packs/Day Years [...] In [facility] Services [address] [place] [address] Carmen Hartmann 04/02/2025 4:30 PM EST PACE Home Care / PACE Home Visit [facility] [place] [facility] [address] [place] [phone] Ashley Eastman 04/03/2025 8:30 AM EST PACE Home Care / PACE Home Visit [facility] [place] [facility] [address] [place] [phone] Carmen Hartmann 04/03/2025 9:00 AM EST PACE Attendance/Day [facility] [place] [facility] [place] [facility] [address] [place] [address] 04/03/2025 4:30 PM EST PACE Home Care / PACE Home Visit [facility] [place] [facility] [address] [place] [phone] Ashley Eastman 04/04/2025 Lab [facility] Clinic [address] [place] [address] Regulo Ivy NP [address] [address] Constipation, unspecified constipation type 04/04/2025 8:00 AM EST PACE Home Care / PACE Home Visit [facility] [place] [facility] [address] [place] [address] Titi Thomas 04/04/2025 8:30 AM EST PACE Home Care / [facility] [address] [place] [address] Marysol Diaz 04/04/2025 4:30 PM EST PACE Home Care / [facility] Home Visit [facility] [place] [facility] [address] [place] [address] Ashley Eastman 04/05/2025 12:00 PM EST PACE Home Care / [facility] Home Visit [facility] [place] [facility] [address] [place] [phone] Dena Chavez 04/06/2025 12:00 PM EST PACE Home Care / [facility] Home Visit [facility] [place] [facility] [address] [place] [phone] Dena Chavez 2025 8:30 AM EST PACE Home Care / [facility] Home Visit [facility] [place] [facility] [address] [place] [phone] Carmen Hartmann 2025 4:30 PM EST PACE Home Care / [facility] Home Visit [facility] [place] [facility] [address] [place] [phone] Ashley Eastman 04/08/2025 8:30 AM EST PACE Home Care / P[facility] Home Visit [facility] [place] [facility] [address] [place] [phone] Carmen Hartmann 04/08/2025 4:30 PM EST PACE Home Care / [facility] Home Visit [facility] [place] [facility] [address] [place] [phone] Ashley Eastman 04/09/2025 8:30 AM EST PACE Home Care / [facility] Home Visit [facility] [place] [facility] [address] [place] [phone] Carmen Hartmann 04/09/2025 4:30 PM EST PACE Home Care / [facility] Home Visit [facility] [place] [facility] [address] [place] [address] Ashley Eastman 04/10/2025 6:05 AM EST PACE Home Care / P[facility] Home Visit [facility] [place] [facility] [address] [place] [address] Jackeline Mcrae 04/10/2025 9:00 AM EST [place] [facility] [place] [facility] [facility] [address] [place] [address] 04/10/2025 4:30 PM EST PACE Home Care / PACE Home Visit [facility] [place] [facility] [address] [place] [address] Ashley Eastman 04/11/2025 8:00 AM EST PACE Home Care / [place] Home Visit [facility] [place] [facility] [address] [place] [phone] Carmen Hartmann 04/11/2025 9:30 AM EST PACE Home Care / [facility] Home Visit [facility] [place] [facility] [address] [place] [phone] Carmen Hartmann 04/11/2025 4:30 PM EST PACE Home Care / P[facility] Home Visit [facility] [place] [facility] [address] [place] [phone] Ashley Eastman 04/12/2025 8:30 AM EST PACE Home Care / [place] Home Visit [facility] [place] [facility] [address] [place] [phone] Marysol Diaz 04/12/2025 12:00 PM EST PACE Home Care / [place] Home Visit [facility] [place] [facility] [address] [place] [phone] Natali Sanford 04/12/2025 5:30 PM EST PACE Home Care / P[facility] Home Visit [facility] [place] [facility] [address] [place] [address] Marysol Diaz 04/13/2025 8:30 AM EST PACE Home Care / PACE Home Visit [facility] [place] [facility] [address] [place] [address] Marysol Diaz 04/13/2025 12:00 PM EST PACE Home Care / PACE Home Visit [facility] [place] [facility] [address] [place] [address] Natali Sanford 04/13/2025 4:30 PM EST PACE Home Care / [place] Home Visit [facility] [place] [facility] [address] [place] [phone] Marysol Diaz 04/13/2025 5:30 PM EST PACE Home Care / PACE Home Visit [facility] [place] [facility] [address] [place] [address] Marysol Diaz 04/14/2025 8:30 AM EST PACE Home Care / P[facility] Home Visit [facility] [place] [facility] [address] [place] [phone] Carmen Hartmann 04/14/2025 4:30 PM EST PACE Home Care / P[place] Home Visit [facility] [place] [facility] [address] [place] [phone] Ashley Eastman 04/15/2025 8:30 AM EST PACE Home Care / P[place] Home Visit [facility] [place] [facility] [address] [place] [phone] Carmen Hartmann 04/15/2025 11:00 AM EST Office Visit [facility] [place] [facility] [address] [place] [address] Regulo Ivy, ALONSO [address] [place] [address] Brigette East LPN 04/15/2025 4:30 PM EST PACE Home Care / PACE Home Visit [facility] [place] [facility] [address] [place] [phone] Ashley Eastman 04/16/2025 8:30 AM EST PACE Home Care / [facility] Home Visit [facility] [place] [facility] [address] [place] [phone] Carmen Hartmann 04/16/2025 4:30 PM EST PACE Home Care / P[facility] Home Visit [facility] [place] [facility] [address] [place] [phone] Ashley Eastman 04/17/2025 8:30 AM EST PACE Home Care / [facility] Home Visit [facility] [place] [facility] [address] [place] [phone] Carmen Hartmann 04/17/2025 9:00 AM EST [facility] [place] [facility] [place] [facility] [facility] [address] [place] [phone] 04/17/2025 4:30 PM EST PACE Home Care / [facility] Home Visit [facility] [place] [facility] [address] [place] [phone] Ashley Eastman 04/18/2025 8:00 AM EST PACE Home Care / [facility] Home Visit [facility] [place] [facility] [address] [place] [phone] Carmen Hartmann 04/18/2025 4:30 PM EST PACE Home Care / [facility] Home Visit [facility] [place] [facility] [address] [place] [phone] Ashley Eastman 04/19/2025 12:00 PM EST PACE Home Care / [facility] Home Visit [facility] [place] [facility] [address] [place] [phone] Dena Chavez 04/20/2025 12:00 PM EST PACE Home Care / [facility] Home Visit [facility] [place] [facility] [address] [place] [phone] Dena Chavez 04/21/2025 8:30 AM EST PACE Home Care / P[facility] Home Visit [facility] [place] [facility] [address] [place] [phone] Carmen Hartmann 04/21/2025 4:30 PM EST PACE Home Care / [place] Home Visit [facility] [place] [facility] [address] [place] [phone] Ashley Eastman 04/22/2025 8:30 AM EST PACE Home Care / PACE Home Visit [facility] [place] [facility] [address] [place] [phone] Carmen Hartmann 04/22/2025 4:30 PM EST PACE Home Care / P[facility] Home Visit [facility] [place] [facility] [address] [place] [phone] Ashley Eastman 04/23/2025 8:30 AM EST PACE Home Care / P[facility] Home Visit [facility] [place] [facility] [address] [place] [phone] Carmen Hartmann 04/23/2025 4:30 PM EST PACE Home Care / PACE Home Visit [facility] [place] [facility] [address] [place] [phone] Ashley Eastman 04/24/2025 8:30 AM EST PACE Home Care / P[facility] Home Visit [facility] [place] [facility] [address] [place] [phone] Carmen Hartmann 04/24/2025 9:00 AM EST [place] [facility] [place] [address] [place] [address] 04/24/2025 4:30 PM EST PACE Home Care / PACE Home Visit [facility] [place] [facility] [address] [place] [address] Ashley Eastman 04/25/2025 8:00 AM EST PACE Home Care / PACE Home Visit [facility] [place] [facility] [address] [place] [phone] Carmen Hartmann 04/25/2025 9:30 AM EST PACE Home Care / PACE Home Visit [facility] [place] [facility] [address] [place] [phone] Ralph Loyola 04/25/2025 4:30 PM EST PACE Home Care / PACE Home Visit [facility] [place] [facility] [address] [place] [phone] Ashley Eastman 04/26/2025 8:30 AM EST PACE Home Care / PACE Home Visit [facility] [place] [facility] [address] [place] [phone] Marysol Diaz 04/26/2025 12:00 PM EST PACE Home Care / PACE Home Visit [facility] [place] [facility] [address] [place] [phone] Natali Sanford 04/26/2025 5:30 PM EST PACE Home Care / P[facility] Home Visit [facility] [place] [facility] [address] [place] [phone] Marysol Diaz 04/27/2025 8:30 AM EST PACE Home Care / PACE Home Visit [facility] [place] [facility] [address] [place] [phone] Marysol Diaz 04/27/2025 12:00 PM EST PACE Home Care / P[facility] Home Visit [facility] [place] [facility] [address] [place] [phone] Natali Sanford 04/27/2025 4:30 PM EST PACE Home Care / PACE Home Visit [facility] [place] [facility] [address] [place] [address] Marysol Diaz 04/27/2025 5:30 PM EST PACE Home Care / PACE Home Visit [facility] [place] [facility] [address] [place] [address] Marysol Diaz 04/28/2025 8:30 AM EST PACE Home Care / PACE Home Visit [facility] [place] [facility] [address] [place] [address] Carmen Hartmann 04/28/2025 4:30 PM EST PACE Home Care / PACE Home Visit [facility] [place] [facility] [address] [place] [address] Ashley Eastman 04/29/2025 8:30 AM EST PACE Home Care / PACE Home Visit [facility] [place] [facility] [address] [place] [phone] Carmen Hartmann 04/29/2025 4:30 PM EST PACE Home Care / PACE Home Visit [facility] [place] [facility] [address] [place] [phone] Ashley Eastman 04/30/2025 8:30 AM EST PACE Home Care / PACE Home Visit [facility] [place] [facility] [address] [place] [phone] Carmen Hartmann 04/30/2025 4:30 PM EST PACE Home Care / PACE Home Visit [facility] [place] [facility] [address] [place] [phone] Ashley Eastman 05/01/2025 8:30 AM EST PACE Home Care / PACE Home Visit [facility] [place] [facility] [address] [place] [phone] Carmen Hartmann 05/01/2025 9:00 AM EST PACE Attendance/[facility] [place] [facility] [place] [facility] [address] [place] [address] 05/01/2025 11:30 AM EST Clinical Support [facility] [place] [address] [place] [address] 05/01/2025 4:30 PM EST PACE Home Care / PACE Home Visit [facility] [place] [facility] [address] [place] [address] Ashley Eastman 05/02/2025 8:00 AM EST PACE Home Care / PACE Home Visit [facility] [address] [place] [phone] Carmen Hartmann 05/02/2025 9:30 AM EST PACE Home Care / PACE Home Visit [facility] [place] [facility] [address] [place] [phone] Ralph Loyola 05/02/2025 4:30 PM EST PACE Home Care / PACE Home Visit [facility] [place] [facility] [address] [place] [phone] Ashley Eastman 05/03/2025 12:00 PM EST PACE Home Care / [facility] [address] [place] [phone] Dena Chavez 05/04/2025 12:00 PM EST PACE Home Care / [facility] Visit [facility] [place] [facility] [address] [place] [phone] Dena Chavez 05/05/2025 8:30 AM EST PACE Home Care / PACE Home Visit [facility] [place] [facility] [address] [place] [phone] Carmen Hartmann 05/05/2025 4:30 PM EST PACE Home Care / [facility] [place] [facility] [address] [place] [phone] Ashley Eastman 05/06/2025 8:30 AM EST PACE Home Care / PACE [facility] Visit [facility] [place] [facility] [address] [place] [address] Carmen Hartmann 05/06/2025 4:30 PM EST PACE Home Care / P[facility] Home Visit [facility] [place] [facility] [address] [place] [phone] Ashley Eastman 05/07/2025 8:30 AM EST PACE Home Care / [facility] Home Visit [facility] [place] [facility] [address] [place] [phone] Carmen Hartmann 05/07/2025 4:30 PM EST PACE Home Care / [facility] Home Visit [facility] [place] [facility] [address] [place] [phone] Ashley Eastman 05/08/2025 8:30 AM EST PACE Home Care / [facility] Home Visit [facility] [place] [facility] [address] [place] [phone] Carmen Hartmann 05/08/2025 9:00 AM EST P[facility] Attendance[facility] [facility] [place] [address] [place] [phone] 05/08/2025 4:30 PM EST PACE Home Care / PACE Home Visit [facility] [place] [facility] [address] [place] [phone] Ashley Eastman 05/09/2025 8:00 AM EST PACE Home Care / [facility] Visit [facility] [place] [facility] [address] [place] [phone] Carmen Hartmann 05/09/2025 9:30 AM EST PACE Home Care / [facility] Visit [facility] [place] [facility] [address] [place] [phone] Nir Ralph 05/09/2025 4:30 PM EST PACE Home Care / [facility] Visit [facility] [place] [facility] [address] [place] [phone] TyrakaileeAshley 05/10/2025 8:30 AM EST PACE Home Care / [facility] Visit [facility] [place] [facility] [address] [place] [phone] Marysol Diaz 05/10/2025 12:00 PM EST PACE Home Care / [facility] Visit [facility] [place] [facility] [address] [place] [phone] Natali Sanford 05/10/2025 5:30 PM EST PACE Home Care / [facility] Visit [facility] [place] [facility] [address] [place] [phone] Marysol Diaz 05/11/2025 8:30 AM EST PACE Home Care / [facility] Visit [facility] [place] [facility] [address] [place] [phone] Marysol Diaz 05/11/2025 12:00 PM EST PACE Home Care / [facility] Visit [facility] [place] [facility] [address] [place] [phone] Natali Sanford 05/11/2025 4:30 PM EST PACE Home Care / [place] Home Visit [facility] [place] [facility] [address] [place] [phone] Marysol Diaz 05/11/2025 5:30 PM EST PACE Home Care / P[facility] Home Visit [facility] [place] [facility] [address] [place] [phone] Marysol Diaz 05/12/2025 8:30 AM EST PACE Home Care / PACE Home Visit [facility] [place] [facility] [address] [place] [phone] Carmen Hartmann 05/12/2025 4:30 PM EST PACE Home Care / PACE Home Visit [facility] [place] [facility] [address] [place] [phone] Ashley Eastman 05/13/2025 8:30 AM EST PACE Home Care / PACE [facility] Visit [facility] [place] [facility] [address] [place] [phone] Carmen Hartmann 05/13/2025 11:00 AM EST [facility] Visit [facility] [place] [facility] [address] [place] [phone] Regulo Ivy NP [address] [place] [address] Brigette East LPN 05/13/2025 4:30 PM EST PACE Home Care / PACE Home Visit [facility] [place] [facility] [address] [place] [phone] Ashley Eastman 05/14/2025 8:30 AM EST PACE Home Care / P[facility] Visit [facility] [place] [facility] [address] [place] [phone] Carmen Hartmann 05/14/2025 4:30 PM EST PACE Home Care / [facility] Visit [facility] [place] [facility] [address] [place] [phone] Ashley Eastman 05/15/2025 8:30 AM EST PACE Home Care / [facility] Visit [facility] [place] [facility] [address] [place] [phone] Carmen Hartmann 05/15/2025 9:00 AM EST [facility] [place] [facility] [place] [facility] [place] [facility] [address] [place] [address] 05/15/2025 4:30 PM EST PACE Home Care / [facility] Visit [facility] [place] [facility] [address] [place] [address] Ashley Eastman 05/16/2025 8:00 AM EST PACE Home Care / [facility] Visit [facility] [place] [facility] [address] [place] [phone] Carmen Hartmann 05/16/2025 9:30 AM EST PACE Home Care / [facility] Visit [facility] [place] [facility] [address] [place] [phone] Ralph Loyola 05/16/2025 4:30 PM EST PACE Home Care / [facility] Visit [facility] [place] [facility] [address] [place] [phone] Ashley Eastman 05/17/2025 12:00 PM EST PACE Home Care / P[facility] Visit [facility] [place] [facility] [address] [place] [phone] Dena Chavez 05/18/2025 12:00 PM EST PACE Home Care / P[facility] Visit [facility] [place] [facility] [address] [place] [phone] Dena Chavez 05/19/2025 8:30 AM EST PACE Home Care / [facility] Visit [facility] [place] [facility] [address] [place] [phone] Carmen Hartmann 05/19/2025 4:30 PM EST PACE Home Care / [facility] Visit [facility] [place] [facility] [address] [place] [phone] Ashley Eastman 05/20/2025 8:30 AM EST PACE Home Care / [facility] Visit [facility] [place] [facility] [address] [place] [phone] Carmen Hartmann 05/20/2025 4:30 PM EST PACE Home Care / [facility] Visit [facility] [place] [facility] [address] [place] [address] Ashley Eastman 05/21/2025 8:30 AM EST PACE Home Care / PACE Home Visit [facility] [address] [place] [address] Carmen Hartmann 05/21/2025 4:30 PM EST PACE Home Care / PACE Home Visit [facility] [address] [place] [address] Ashley Eastman 05/22/2025 8:30 AM EST PACE Home Care / PACE [facility] Visit [facility] [address] [place] [address] Carmen Hartmann 05/22/2025 9:00 AM EST PACE Attendance[facility] [place] [facility] [address] [place] [address] 05/22/2025 4:30 PM EST PACE Home Care / PACE Home Visit [facility] [address] [place] [phone] Ashley Eastman 05/23/2025 8:00 AM EST PACE Home Care / [facility] [place] [facility] [address] [place] [phone] Carmen Hartmann 05/23/2025 9:30 AM EST PACE Home Care / [facility] [place] [facility] [address] [place] [address] Ralph Loyola 05/23/2025 4:30 PM EST PACE Home Care / [facility] Visit [facility] [place] [facility] [address] [place] [address] Ashley Eastman 05/24/2025 8:30 AM EST PACE Home Care / PACE Home Visit [facility] [address] [place] [phone] Marysol Diaz 05/24/2025 12:00 PM EST PACE Home Care / [facility] Visit [facility] [place] [facility] [address] [place] [phone] Natali Sanford 05/24/2025 5:30 PM EST PACE Home Care / [facility] Visit [facility] [place] [facility] [address] [place] [phone] Marysol Diaz 05/25/2025 8:30 AM EST PACE Home Care / [facility] [place] [facility] [address] [place] [phone] Marysol Diaz 05/25/2025 12:00 PM EST PACE Home Care / [facility] [place] [facility] [address] [place] [phone] Natali Sanford 05/25/2025 4:30 PM EST PACE Home Care / [facility] Visit [facility] [place] [facility] [address] [place] [phone] Marysol Diaz 05/25/2025 5:30 PM EST PACE Home Care / [facility] [place] [facility] [address] [place] [phone] Marysol Diaz 05/26/2025 8:30 AM EST PACE Home Care / [facility] [place] [facility] [address] [place] [phone] Carmen Hartmann 05/26/2025 4:30 PM EST PACE Home Care / [facility] [place] [facility] [address] [place] [phone] Ashley Eastman 05/27/2025 8:30 AM EST PACE Home Care / [facility] [place] [facility] [address] [place] [phone] Carmen Hartmann 05/27/2025 4:30 PM EST PACE Home Care / [facility] [place] [facility] [address] [place] [phone] Ashley Eastman 05/28/2025 8:30 AM EST PACE Home Care / [facility] [place] [facility] [address] [place] [address] Carmen Hartmann 05/28/2025 4:30 PM EST PACE Home Care / [facility] [place] [facility] [address] [place] [phone] Ashley Eastman 05/29/2025 8:30 AM EST PACE Home Care / [facility] [place] [facility] [address] [place] [phone] Carmen Hartmann 05/29/2025 9:00 AM EST [facility] Att[facility] [facility] [place] [facility] [address] [place] [address] 05/29/2025 4:30 PM EST PACE Home Care / [facility] [place] [facility] [address] [place] [phone] Ashley Eastman 05/30/2025 8:00 AM EST PACE Home Care / [facility] [place] [facility] [address] [place] [phone] Carmen Hartmann 05/30/2025 9:30 AM EST PACE Home Care / [facility] [place] [facility] [address] [place] [phone] Ralph Loyola 05/30/2025 4:30 PM EST PACE Home Care / [facility] [place] [facility] [address] [place] [phone] Ashley Eastman 06/05/2025 9:00 AM EST PACE Attendance/Day Center [facility] PACE Day Center [address] [place] [address] [phone] 06/10/2025 11:00 AM EST Office Visit [facility] [address] [place] [phone] Michelle Castillo MD [address] [place] [address] Brigette East LPN 06/12/2025 9:00 AM EST PACE Attendance/Day Center [facility] Day Center [address] [place] [phone] 06/19/2025 9:00 AM EST PACE Attendance/Day Center [facility] Day [address] [address] 06/26/2025 9:00 AM EDT PACE Attendance/Day Center [facility] Day Center [address] [place] [phone] 06/27/2025 1:20 PM EDT Office Visit Gastroenterology - [address] [address] Analisa Perez, ALONSO [address] [address] 07/03/2025 9:00 AM EDT PACE Attendance/Day Center [facility] Day Center [address] [place] [phone] 07/10/2025 9:00 AM EDT PACE Attendance/Day Center [facility] Day Center [address] [place] [phone] 07/17/2025 9:00 AM EDT PACE Attendance/Day Center [facility] Day Center [address] [place] [phone] 07/17/2025 3:30 PM EDT PACE External Visit Marsha ABRAMS MA [address] [place] [address] 07/24/2025 9:00 AM EDT PACE Attendance/Day [place] Marsha ABRAMS [place] [facility] Day [facility] [address] [place] [address] 07/31/2025 9:00 AM EDT PACE Attendance/Day [place] Marsha ABRAMS [place] [facility] Day Center [address] [place] [address] 08/07/2025 9:00 AM EDT PACE Attendance/[place]ha ABRAMS [place] [facility] Day [facility] [address] [place] [address] 08/14/2025 9:00 AM EDT PACE Attendance/Day [place] Marsha ABRAMS [place] [facility] Day [facility] [address] [place] [phone] 08/21/2025 9:00 AM EDT PACE Attendance/Day [place] Marsha ABRAMS [place] [facility] Day Center [address] [place] [phone] 08/28/2025 9:00 AM EDT PACE Attendance/Day [place] Marsha ABRAMS [place] [facility] Day Center [address] [place] [phone] 09/04/2025 9:00 AM EDT PACE Attendance/[place] Marsha ABRAMS [place] [facility] Day Center [address] [place] [phone] 09/11/2025 9:00 AM EDT PACE Attendance/Day [place] Marsha ABRAMS [place] [facility] Day [facility] [address] [place] [phone] 09/18/2025 9:00 AM EDT PACE Attendance/Day [place] Marsha ABRAMS [place] [facility] Day [facility] [address] [place] [phone] 09/25/2025 9:00 AM EDT PACE Attendance/Day Center Marsha ABRAMS [place] [facility] Day Center [address] [place] [phone] 10/02/2025 9:00 AM EDT PACE Attendance/Day Center [facility] [employer] [address] [address] 10/09/2025 9:00 AM EDT PACE Attendance/Day Center [facility] [employer] [address] [address] documented as of this encounter Visit Diagnoses Not on filedocumented in this encounter Additional Health Concerns Infection Onset Date Last Indicated Resolved Time Gastrointestinal Rule-Out 02/10/2025 02/10/2025 7:04 PM EST documented as of this encounter Care Teams Food Adviser Relationship Specialty Start Date End Date Regulo Ivy NP [address] [place] [address] PCP - General PACE 06/07/24 documented as of this encounter
--- OUTSIDE RECORDS SUMMARY | 2025-04-01 17:09 | XMS_ITS | Data Portability ---
Author Organization [place] [facility] Address [address] [place] [phone] Care Team Providers Care Director Veterinary Name Role Phone KYRA MENG Primary Care Provider [phone] Assessment Encounter Date Assessment Date Assessment LastModified [...] exercises Thank you for your visit with [facility] today. We cannot always find the exact [...] in your condition between 8am-10pm, please call [facility] at [phone] to help navigate your care. In order to obtain further information and compare any laboratory results/values, I have accessed patient records on the [facility]. This information was pertinent in my medical [...] care of this patient according to [facility]'s infection prevention protocols. [email or web address] Not available 10/31/2021 12:47:02 Plan of Treatment Reminders Order Date Submit Date Provider Last Modified By Organization Details Last Modified Time Details Appointments None record ed. Lab None record ed. Referral None record ed. Procedures None record ed. Surgeries None record ed. Imaging XR, ankle, 3 or more view 021 11/10/19 21 [email or web address] [address] [place] [address], [address], 09:36:15 Medication Orders None record ed. Patient TargetsNo targets recorded. Patient InstructionsNo instructions recorded. Reason for Referral None Reported. Results Created Date Observation Date Name Description Value Unit Range Abnormal Flag Note LastModifiedBy Organization Detail LastModifiedTime 11/12/19 21 XR, ankle , 3 or more view No observ ation record ed. [email or web address] [address] [place], [address], 11/11/2020 18:02:55 Result Notes None recorded. Problems Name Problem SNOMED Code Status Onset Date Resolution Date Notes Provider Name and Address Organization Details Recorded Time Diabetes mellitus 68565740 Active 021 TOYA CHURCH [address] [place], [address], [facility] - [facility] 18:07:45 Problem Notes None recorded. Medical Equipment None Reported. Allergies Allergen ID Allergen Name Allergen Category Reaction Reaction Severity Criticality Documentation Date Start Date Code Code System Note Provider Name and Address Organization Details Recorded Time 21280722 Trileptal medicatio n Not available Not available Not available 11/09/2020 03642 0 RxNorm TOYA CHURCH [address] [facility], [address], [place] [facility] 18:07:25 Medications Name Sig Start Date Stop Date Status Note LastModified by Organization Details LastModified Time senna tab 8.6mg active Not Available Not Available Not Available senna tablets TAKE 2 TABLETS BY MOUTH AT BEDTIME NEEDED FOR CONSTIPAT ION 10/30 completed Not Available Not Available Not Available amoxicillin [...] /min 98.6 [degF] 140/70 mm[Hg] Not Available [facility] 2 16:03:57 Date Recorded Oxygen saturation Body temperature Respiratory rate Heart rate Systolic And Diastolic Provider Name and Address Organization Details Last Updated DateTime 1 95 % 98.7 [degF] 20 /min 77 /min 110/76 mm[Hg] Not Available [facility] 1 18:14:25 Social History Question Answer Notes LastModified by Organizat ion Details LastModified Time Tobacco Smoking Status Never Smoker TOYA CHURCH [address], [place], [address], [place] [facility] 11/09/2020 18:14:10 Excessive Alcohol [...] ICD10 Code Diagnosis IMO Codes Diagnosis Note [id number] TOYA CHURCH [facility] [address] [place] [address] 11/09/2020 18:06:27 11/14/2020 11:24:14 Osteoarthritis of ankle and/or foot 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 M19.079 Pain of ri ght ankle joint 7275556745 3811919 M25.571 506004 Anat White NP [facility] [address] [place] [address] 10/30/2021 15:53:33 11/01/2021 12:01:11 Candidal intertrigo 084936411 B37.2 Cyst of skin 729194346 L 72.9 Health Concerns Section Related Observation LastModified by Organization Detai ls LastModified Time None Recorded Concern Status LastModified by Organization Details LastModified Time None Recorded Advance Directives Directive None Recorded Payers Insurance Date Sequence Insurance Name Policy Number Policy Palomo Covered Member ID Palomo Member ID Guarantor Name 11/01/2021 2 [place] [employer] Lashanda Sanders [id number] Lashanda Sanders 11/09/2020 1 [facility] - DOS PRIOR TO 2022 - DUAL ELIGIBLE (MEDICARE REPLACEMENT/ADV ANTAGE - HMO) Lashanda Gtzucher [id number] Lashanda Sanders 11/09/2020 1 *SELF PAY* Lashanda Sanders [id number] Lashanda Sanders 11/14/2020 1 [facility] - DOS PRIOR TO 2022 - DUAL ELIGIBLE (MEDICARE REPLACEMENT/ADV ANTAGE - HMO) Lashanda Marilyn [id number] Lashanda Marilyn 11/09/2020 1 [place] [employer] Lashanda Marilyn [id number] Lashanda Sanders 10/29/2021 1 [facility] - DOS PRIOR TO 2022 - DUAL ELIGIBLE (MEDICARE REPLACEMENT/ADV ANTAGE - HMO) Lashanda Sanders [id number] Lashanda Sanders Notes Date Note Type Note [...] Patient ambulating with cane [place], [address], [place] [facility] 11/09/2020 18:51:42 10/30/2021 text/html [...] groin. Anat White NP [address], [place], [address], [place] [facility] 10/31/2021 12:48:05 OBGyn Episode No OBEpisode recorded.
--- OUTSIDE RECORDS SUMMARY | 2025-04-01 17:09 | XMS_ITS | Encounter Summary ---
Author Organization [facility] Address [address] [place] [address] Care Team Providers Care Edge Inker Uppers Name Role Phone Regulo Ivy NP Primary Care Provider [phone] Encounter Details Date Type Department Care Team (Late st Contact Info) Description 02/06/[address]-[facility] PACE Clinic [address] [place] [address] Michelle Castillo MD 200 [facility] 1 [place], [place] [id number] Social History Tobacco Use Types Packs/Day Years [...] your loved ones. 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 Johanna relayed to our taxation agent that the inpatient team had asked about bringing Елена's psych medications to the hospital. This MD called [facility], where pt was in Rm 431. Left a message with Елена's nurse to [facility] overnight provider call this MD. Got a call from TOYA Lazar, and she said that [facility], where Елена was admitted day before, on 02/03/25, did not have either Rexulti or Paliperidone. Given that she had not received any antipsychotics,we reviewed what meds were available at [facility]. Abilify was available. I recommended giving [...] [facility] [address] [place] [address] Carmen Hartmann 04/02/2025 4:30 PM EST PACE Home Care / PACE Home Visit [facility] [place] [facility] [address] [place] [address] Ashley Eastman 04/03/2025 8:30 AM EST PACE Home Care / PACE Home Visit [facility] [place] [facility] [address] [place] [address] Carmen Hartmann 04/03/2025 9:00 AM EST PACE Attendance/[facility] [place] [facility] [address] [place] [address] 04/03/2025 4:30 PM EST PACE Home Care / PACE Home Visit [facility] [place] [facility] [address] [place] [address] Ashley Eastman 04/04/2025 Lab [facility] [place] [facility] [address] [place] [phone] Regulo Ivy, ALONSO [address] [place] [phone] Constipation, unspecified constipation type 04/04/2025 8:00 AM EST PACE Home Care / PACE Home Visit [facility] [address] [place] [address] Titi Thomas 04/04/2025 8:30 AM EST PACE Home Care / PACE Home Visit [facility] [place] [facility] [address] [place] [address] Marysol Diaz 04/04/2025 4:30 PM EST PACE Home Care / PACE Home Visit [facility] [place] [facility] [address] [place] [phone] Ashley Eastman 04/05/2025 12:00 PM EST PACE Home Care / [facility] [place] [facility] [address] [place] [address] Dena Chavez 04/06/2025 12:00 PM EST PACE Home Care / [facility] Visit [facility] [place] [facility] [address] [place] [address] Dena Chavez 2025 8:30 AM EST PACE Home Care / [facility] Home Visit [facility] [place] [facility] [address] [place] [phone] Carmen Hartmann 2025 4:30 PM EST PACE Home Care / [facility] Home Visit [facility] [place] [facility] [address] [place] [phone] Ashley Eastman 04/08/2025 8:30 AM EST PACE Home Care / [facility] Home Visit [facility] [place] [facility] [address] [place] [phone] Carmen Hartmann 04/08/2025 4:30 PM EST PACE Home Care / [facility] Visit [facility] [place] [facility] [address] [place] [phone] Ashley Eastman 04/09/2025 8:30 AM EST PACE Home Care / [facility] Visit [facility] [place] [facility] [address] [place] [phone] Carmen Hartmann 04/09/2025 4:30 PM EST PACE Home Care / [facility] Visit [facility] [place] [facility] [address] [place] [phone] Ashley Eastman 04/10/2025 6:05 AM EST PACE Home Care / [facility] Home Visit [facility] [place] [facility] [address] [place] [phone] Jackeline Mcrae 04/10/2025 9:00 AM EST PACE Attendance[facility] [facility] [place] [facility] [address] [place] [address] 04/10/2025 4:30 PM EST PACE Home Care / [facility] Home Visit [facility] [place] [facility] [address] [place] [address] Ashley Eastman 04/11/2025 8:00 AM EST PACE Home Care / [facility] Home Visit [facility] [place] [facility] [address] [place] [address] Carmen Hartmann 04/11/2025 9:30 AM EST PACE Home Care / PACE Home Visit [facility] [place] [facility] [address] [place] [phone] Carmen Hartmann 04/11/2025 4:30 PM EST PACE Home Care / PACE Home Visit [facility] [place] [facility] [address] [place] [address] Ashley Eastman 04/12/2025 8:30 AM EST PACE Home Care / [facility] Home Visit [facility] [place] [facility] [address] [place] [phone] Marysol Diaz 04/12/2025 12:00 PM EST PACE Home Care / [facility] Home Visit [facility] [place] [facility] [address] [place] [address] Natali Sanford 04/12/2025 5:30 PM EST PACE Home Care / [facility] Home Visit [facility] [place] [facility] [address] [place] [phone] Marysol Diaz 04/13/2025 8:30 AM EST PACE Home Care / [facility] Home Visit [facility] [place] [facility] [address] [place] [phone] Marysol Logan 04/13/2025 12:00 PM EST PACE Home Care / [facility] Home Visit [facility] [place] [facility] [address] [place] [address] Natali Sanford 04/13/2025 4:30 PM EST PACE Home Care / P[facility] Home Visit [facility] [place] [facility] [address] [place] [address] Marysol Diaz 04/13/2025 5:30 PM EST PACE Home Care / [facility] Home Visit [facility] [place] [facility] [address] [place] [address] Marysol Diaz 04/14/2025 8:30 AM EST PACE Home Care / PACE Home Visit [facility] [place] [facility] [address] [place] [address] Carmen Hartmann 04/14/2025 4:30 PM EST PACE Home Care / PACE Home Visit [facility] [place] [facility] [address] [place] [address] Ashley Eastman 04/15/2025 8:30 AM EST PACE Home Care / PACE Home Visit [facility] [place] [facility] [address] [place] [address] Carmen Hartmann 04/15/2025 11:00 AM EST Office Visit [facility] [place] [facility] [address] [place] [address] Regulo Ivy, ALONSO [address] [address] Brigette East LPN 04/15/2025 4:30 PM EST PACE Home Care / P[facility] Home Visit [facility] [place] [facility] [address] [place] [address] Ashley Eastman 04/16/2025 8:30 AM EST PACE Home Care / PACE Home Visit [facility] [place] [facility] [address] [place] [address] Carmen Hartmann 04/16/2025 4:30 PM EST PACE Home Care / P[facility] Home Visit [facility] [place] [facility] [address] [place] [phone] Ashley Eastman 04/17/2025 8:30 AM EST PACE Home Care / P[facility] Home Visit [facility] [place] [facility] [address] [place] [address] Carmen Hartmann 04/17/2025 9:00 AM EST PACE Attendance[facility] [place] [facility] [address] [place] [address] 04/17/2025 4:30 PM EST PACE Home Care / [facility] Visit [facility] [place] [facility] [address] [place] [phone] Ashley Eastman 04/18/2025 8:00 AM EST PACE Home Care / P[facility] Visit [facility] [place] [facility] [address] [place] [phone] Carmen Hartmann 04/18/2025 4:30 PM EST PACE Home Care / [facility] Visit [facility] [place] [facility] [address] [place] [phone] Ashley Eastman 04/19/2025 12:00 PM EST PACE Home Care / [facility] Visit [facility] [place] [facility] [address] [place] [phone] Dena Chavez 04/20/2025 12:00 PM EST PACE Home Care / P[facility] Home Visit [facility] [place] [facility] [address] [place] [phone] Dena Chavez 04/21/2025 8:30 AM EST PACE Home Care / P[facility] Home Visit [facility] [place] [facility] [address] [place] [phone] Carmen Hartmann 04/21/2025 4:30 PM EST PACE Home Care / P[facility] Visit [facility] [place] [facility] [address] [place] [address] Ashley Eastman 04/22/2025 8:30 AM EST PACE Home Care / [facility] Home Visit [facility] [place] [facility] [address] [place] [address] Carmen Hartmann 04/22/2025 4:30 PM EST PACE Home Care / P[facility] Home Visit [facility] [place] [facility] [address] [place] [phone] Ashley Eastman 04/23/2025 8:30 AM EST PACE Home Care / P[facility] Home Visit [facility] [place] [facility] [address] [place] [phone] Carmen Hartmann 04/23/2025 4:30 PM EST PACE Home Care / [facility] Home Visit [facility] [place] [facility] [address] [place] [phone] Ashley Eastman 04/24/2025 8:30 AM EST PACE Home Care / [facility] Home Visit [facility] [place] [facility] [address] [place] [phone] Carmen Hartmann 04/24/2025 9:00 AM EST P[facility] Attend[facility] [facility] [place] [facility] [address] [place] [address] 04/24/2025 4:30 PM EST PACE Home Care / [facility] Visit [facility] [place] [facility] [address] [place] [phone] Ashley Eastman 04/25/2025 8:00 AM EST PACE Home Care / [facility] Home Visit [facility] [place] [facility] [address] [place] [phone] Carmen Hartmann 04/25/2025 9:30 AM EST PACE Home Care / P[facility] Home Visit [facility] [place] [facility] [address] [place] [phone] Ralph Loyola 04/25/2025 4:30 PM EST PACE Home Care / P[facility] Home Visit [facility] [place] [facility] [address] [place] [phone] Ashley Eastman 04/26/2025 8:30 AM EST PACE Home Care / [facility] Visit [facility] [place] [facility] [address] [place] [phone] Marysol Diaz 04/26/2025 12:00 PM EST PACE Home Care / [facility] Visit [facility] [place] [facility] [address] [place] [phone] Natali Sanford 04/26/2025 5:30 PM EST PACE Home Care / P[facility] Home Visit [facility] [place] [facility] [address] [place] [phone] Marysol Diaz 04/27/2025 8:30 AM EST PACE Home Care / [facility] Visit [facility] [place] [facility] [address] [place] [phone] Marysol Diaz 04/27/2025 12:00 PM EST PACE Home Care / [facility] Visit [facility] [place] [facility] [address] [place] [phone] Natali Sanford 04/27/2025 4:30 PM EST PACE Home Care / [facility] Visit [facility] [place] [facility] [address] [place] [phone] Marysol Diaz 04/27/2025 5:30 PM EST PACE Home Care / P[facility] Visit [facility] [place] [facility] [address] [place] [phone] Marysol Diaz 04/28/2025 8:30 AM EST PACE Home Care / [facility] Visit [facility] [place] [facility] [address] [place] [address] Carmen Hartmann 04/28/2025 4:30 PM EST PACE Home Care / P[facility] Home Visit [facility] [place] [facility] [address] [place] [address] Ashley Eastman 04/29/2025 8:30 AM EST PACE Home Care / PACE [facility] Visit [facility] [place] [facility] [address] [place] [address] Carmen Hartmann 04/29/2025 4:30 PM EST PACE Home Care / PACE Home Visit [facility] [place] [facility] [address] [place] [phone] Ashley Eastman 04/30/2025 8:30 AM EST PACE Home Care / P[facility] Visit [facility] [place] [facility] [address] [place] [phone] Carmen Hartmann 04/30/2025 4:30 PM EST PACE Home Care / PACE Home Visit [facility] [place] [facility] [address] [place] [address] Ashley Eastman 05/01/2025 8:30 AM EST PACE Home Care / PACE Home Visit [facility] [place] [facility] [address] [place] [address] Carmen Hartmann 05/01/2025 9:00 AM EST PACE Attendance/[place] [facility] [place] [facility] [address] [place] [address] 05/01/2025 11:30 AM EST Clinical Support [facility] [place] [address] [place] [address] 05/01/2025 4:30 PM EST PACE Home Care / PACE Home Visit [facility] [place] [facility] [address] [place] [address] Ashley Eastman 05/02/2025 8:00 AM EST PACE Home Care / P[facility] Home Visit [facility] [place] [facility] [address] [place] [address] Carmen Hartmann 05/02/2025 9:30 AM EST PACE Home Care / P[facility] Home Visit [facility] [place] [facility] [address] [place] [phone] Ralph Loyola 05/02/2025 4:30 PM EST PACE Home Care / P[facility] Visit [facility] [place] [facility] [address] [place] [phone] Ashley Eastman 05/03/2025 12:00 PM EST PACE Home Care / P[facility] Home Visit [facility] [place] [facility] [address] [place] [phone] Dena Chavez 05/04/2025 12:00 PM EST PACE Home Care / PACE Home Visit [facility] [place] [facility] [address] [place] [phone] Dena Chavez 05/05/2025 8:30 AM EST PACE Home Care / P[facility] Visit [facility] [place] [facility] [address] [place] [phone] Carmen Hartmann 05/05/2025 4:30 PM EST PACE Home Care / P[facility] Visit [facility] [place] [facility] [address] [place] [phone] Ashley Eastman 05/06/2025 8:30 AM EST PACE Home Care / [facility] Visit [facility] [place] [facility] [address] [place] [phone] Carmen Hartmann 05/06/2025 4:30 PM EST PACE Home Care / [facility] Visit [facility] [place] [facility] [address] [place] [address] Ashley Eastman 05/07/2025 8:30 AM EST PACE Home Care / [facility] Visit [facility] [place] [facility] [address] [place] [address] Carmen Hartmann 05/07/2025 4:30 PM EST PACE Home Care / [facility] Visit [facility] [place] [facility] [address] [place] [address] Ashley Eastman 05/08/2025 8:30 AM EST PACE Home Care / [facility] Visit [facility] [place] [facility] [address] [place] [address] Carmen Hartmann 05/08/2025 9:00 AM EST PACE Attendance[facility] [place] [facility] [address] [place] [address] 05/08/2025 4:30 PM EST PACE Home Care / [facility] Visit [facility] [place] [facility] [address] [place] [address] Ashley Eastman 05/09/2025 8:00 AM EST PACE Home Care / [facility] [place] [facility] [address] [place] [address] Carmen Hartmann 05/09/2025 9:30 AM EST PACE Home Care / [facility] Visit [facility] [place] [facility] [address] [place] [address] Ralph Loyola 05/09/2025 4:30 PM EST PACE Home Care / [facility] Visit [facility] [place] [facility] [address] [place] [address] Ashley Eastman 05/10/2025 8:30 AM EST PACE Home Care / [facility] Visit [facility] [place] [facility] [address] [place] [address] Marysol Diaz 05/10/2025 12:00 PM EST PACE Home Care / [facility] Visit [facility] [place] [facility] [address] [place] [phone] Natali Sanford 05/10/2025 5:30 PM EST PACE Home Care / [facility] Visit [facility] [place] [facility] [address] [place] [phone] Marysol Diaz 05/11/2025 8:30 AM EST PACE Home Care / [facility] Visit [facility] [place] [facility] [address] [place] [phone] Marysol Diaz 05/11/2025 12:00 PM EST PACE Home Care / [facility] Visit [facility] [place] [facility] [address] [place] [phone] Natali Sanford 05/11/2025 4:30 PM EST PACE Home Care / [facility] Visit [facility] [place] [facility] [address] [place] [phone] Marysol Diaz 05/11/2025 5:30 PM EST PACE Home Care / [facility] Visit [facility] [place] [facility] [address] [place] [phone] Marysol Diaz 05/12/2025 8:30 AM EST PACE Home Care / [facility] Visit [facility] [place] [facility] [address] [place] [phone] Carmen Hartmann 05/12/2025 4:30 PM EST PACE Home Care / [facility] Visit [facility] [place] [facility] [address] [place] [phone] Ashley Eastman 05/13/2025 8:30 AM EST PACE Home Care / [facility] Visit [facility] [place] [facility] [address] [place] [phone] Carmen Hartmann 05/13/2025 11:00 AM EST [facility] Visit [facility] [place] [facility] [address] [place] [phone] Regulo Ivy, ALONSO [address] [address] Brigette East LPN 05/13/2025 4:30 PM EST PACE Home Care / [facility] Visit [facility] [place] [facility] [address] [place] [phone] Ashley Eastman 05/14/2025 8:30 AM EST PACE Home Care / P[facility] Visit [facility] [place] [facility] [address] [place] [phone] Carmen Hartmann 05/14/2025 4:30 PM EST PACE Home Care / P[facility] Visit [facility] [place] [facility] [address] [place] [phone] Ashley Eastman 05/15/2025 8:30 AM EST PACE Home Care / P[facility] Visit [facility] [address] [place] [phone] Carmen Hartmann 05/15/2025 9:00 AM EST PACE Attendance[facility] [place] [facility] [address] [place] [phone] 05/15/2025 4:30 PM EST PACE Home Care / P[facility] Visit [facility] [place] [facility] [address] [place] [phone] Ashley Eastman 05/16/2025 8:00 AM EST PACE Home Care / P[facility] Visit [facility] [place] [facility] [address] [place] [phone] Carmen Hartmann 05/16/2025 9:30 AM EST PACE Home Care / [facility] [place] [facility] [address] [place] [phone] Ralph Loyola 05/16/2025 4:30 PM EST PACE Home Care / [facility] [place] [facility] [address] [place] [phone] Ashley Eastman 05/17/2025 12:00 PM EST PACE Home Care / [facility] [place] [facility] [address] [place] [phone] Dena Chavez 05/18/2025 12:00 PM EST PACE Home Care / [facility] Visit [facility] [place] [facility] [address] [place] [phone] Dena Chavez 05/19/2025 8:30 AM EST PACE Home Care / [facility] Visit [facility] [place] [facility] [address] [place] [phone] Carmen Hartmann 05/19/2025 4:30 PM EST PACE Home Care / [facility] [place] [facility] [address] [place] [phone] Ashley Eastman 05/20/2025 8:30 AM EST PACE Home Care / [facility] [place] [facility] [address] [place] [phone] Carmen Hartmann 05/20/2025 4:30 PM EST PACE Home Care / [facility] [place] [facility] [address] [place] [phone] Ashley Eastman 05/21/2025 8:30 AM EST PACE Home Care / [facility] [place] [facility] [address] [place] [phone] Carmen Hartmann 05/21/2025 4:30 PM EST PACE Home Care / [facility] [place] [facility] [address] [place] [address] Ashley Eastman 05/22/2025 8:30 AM EST PACE Home Care / [facility] [place] [facility] [address] [place] [address] Carmen Hartmann 05/22/2025 9:00 AM EST [facility] [facility] [place] [facility] [address] [place] [address] 05/22/2025 4:30 PM EST PACE Home Care / [facility] [place] [facility] [address] [place] [phone] Ashley Eastman 05/23/2025 8:00 AM EST PACE Home Care / [facility] [place] [facility] [address] [place] [phone] Carmen Hartmann 05/23/2025 9:30 AM EST PACE Home Care / [facility] [place] [facility] [address] [place] [phone] Ralph Loyola 05/23/2025 4:30 PM EST PACE Home Care / [facility] [place] [facility] [address] [place] [phone] Ashley Eastman 05/24/2025 8:30 AM EST PACE Home Care / [facility] [place] [facility] [address] [place] [phone] Marysol Diaz 05/24/2025 12:00 PM EST PACE Home Care / [facility] [place] [facility] [address] [place] [phone] Natali Sanford 05/24/2025 5:30 PM EST PACE Home Care / [facility] [place] [facility] [address] [place] [address] Marysol Diaz 05/25/2025 8:30 AM EST PACE Home Care / [facility] [place] [facility] [address] [place] [address] Marysol Diaz 05/25/2025 12:00 PM EST PACE Home Care / [facility] [place] [facility] [address] [place] [phone] Natali Sanford 05/25/2025 4:30 PM EST PACE Home Care / [facility] [place] [facility] [address] [place] [phone] Marysol Diaz 05/25/2025 5:30 PM EST PACE Home Care / [facility] [place] [facility] [address] [place] [phone] Marysol Diaz 05/26/2025 8:30 AM EST PACE Home Care / [facility] [place] [facility] [address] [place] [phone] Carmen Hartmann 05/26/2025 4:30 PM EST PACE Home Care / [facility] [place] [facility] [address] [place] [phone] Ashley Eastman 05/27/2025 8:30 AM EST PACE Home Care / [facility] [place] [facility] [address] [place] [phone] Carmen Hartmann 05/27/2025 4:30 PM EST PACE Home Care / [facility] [place] [facility] [address] [place] [phone] Ashley Eastman 05/28/2025 8:30 AM EST PACE Home Care / [facility] [place] [facility] [address] [place] [address] Caremn Hartmann 05/28/2025 4:30 PM EST PACE Home Care / [facility] Visit [facility] [place] [facility] [address] [place] [address] Ashley Eastman 05/29/2025 8:30 AM EST PACE Home Care / [facility] Visit [facility] [place] [facility] [address] [place] [address] Carmen Hartmann 05/29/2025 9:00 AM EST P[facility] Att[facility] [facility] [place] [facility] [address] [place] [address] 05/29/2025 4:30 PM EST PACE Home Care / [facility] [place] [facility] [address] [place] [phone] Ashley Eastman 05/30/2025 8:00 AM EST PACE Home Care / [facility] [place] [facility] [address] [place] [phone] Carmen Hartmann 05/30/2025 9:30 AM EST PACE Home Care / [facility] [place] [facility] [address] [place] [phone] Ralph Loyola 05/30/2025 4:30 PM EST PACE Home Care / [facility] [place] [facility] [facility] [address] [place] [address] Ashley Eastman 06/05/2025 9:00 AM EST P[facility] Attendance/[facility] [address] [place] [address] 06/10/2025 11:00 AM EST Office Visit [facility] [address] [place] [address] Michelle Castillo MD [address] [address] Brigette East LPN 06/12/2025 9:00 AM EST PACE Attendance/Day Center [facility] [address] [place] [phone] 06/19/2025 9:00 AM EST PACE Attendance/Day Center [facility] [address] [place] [phone] 06/26/2025 9:00 AM EDT PACE Attendance/Day Center [facility] Day [address] [address] 06/27/2025 1:20 PM EDT Office Visit Gastroenterology - [address] [place] [phone] Analisa Perez NP [address] [address] 07/03/2025 9:00 AM EDT PACE Attendance/Day Center [facility] Day [address] [address] 07/10/2025 9:00 AM EDT PACE Attendance/Day Center [facility] Day [address] [address] 07/17/2025 9:00 AM EDT PACE Attendance/Day Center [facility] [address] [place] [phone] 07/17/2025 3:30 PM EDT PACE External Visit [facility] [address] [address] 07/24/2025 9:00 AM EDT PACE Attendance/Day Center [facility] PACE Day [address] [address] 07/31/2025 9:00 AM EDT P[facility] Attendance/[place] [facility] [place] [facility] [address] [place] [address] 08/07/2025 9:00 AM EDT P[facility] Attendance/[place] [facility] [place] [facility] [address] [place] [address] 08/14/2025 9:00 AM EDT PACE Attendance/[place] [facility] [place] [facility] [address] [place] [phone] 08/21/2025 9:00 AM EDT P[facility] Attendance/[place] [facility] [place] [facility] [address] [place] [phone] 08/28/2025 9:00 AM EDT [facility] Attendance[facility] [place] [facility] [address] [place] [phone] 09/04/2025 9:00 AM EDT [facility] Attendance[facility] [place] [facility] [address] [place] [phone] 09/11/2025 9:00 AM EDT PACE Attendance/[facility] [address] [place] [phone] 09/18/2025 9:00 AM EDT P[facility] Attendance[facility] [facility] [place] [facility] [address] [place] [phone] 09/25/2025 9:00 AM EDT P[facility] Attendance[facility] [facility] [place] [facility] [address] [place] [phone] 10/02/2025 9:00 AM EDT P[facility] Attendance[facility] [facility] [place] [facility] [address] [place] [phone] 10/09/2025 9:00 AM EDT P[facility] Attendance[facility] [facility] [place] [facility] [address] [place] [phone] documented as of this encounter Visit Diagnoses Not on filedocumented in this encounter Additional Health Concerns Infection Onset Date Last Indicated Resolved Time Gastrointestinal Rule-Out 02/10/2025 02/10/2025 7:04 PM EST documented as of this encounter Care Teams [employer] Relationship Specialty Start Date End Date Regulo Ivy NP [address] [place] [address] PCP - General PACE 06/07/24 documented as of this encounter
--- OUTSIDE RECORDS SUMMARY | 2025-04-01 17:09 | XMS_ITS | Encounter Summary ---
Author Organization [facility] Address [address] [place] [address] Care Team Providers Care Superintendent [employer] Name Role Phone Regulo Ivy NP Primary Care Provider [phone] Reason for Visit * Reason Onset Date Comments Clinical 02/05/2025 Taco called to report par was d/c from hospital with med changes. Spoke to career and transition teacher provider Adriano Ivy, he report changes were ordered from pharmacy and to be delivered tomorrow. Taco made aware someone from the center would follow up to make med changes. [facility] assistance to resume this evening. Kay Grijalva [facility] bricklayer supervisor aware. Encounter Details Date Type Department Care Team (Late st Contact Info) Description 02/05/2025 PACE On-Call [facility] [address] [place] [address] Juliet Scott NP [address] [facility] [address] [place], [place] [id number] Social History Tobacco Use Types Packs/Day Years [...] for your loved ones. For example, child abuse worker or elderly care for an older [...] [place] [facility] [address] [place] [phone] Carmen Hartmann 04/02/2025 4:30 PM EST PACE Home Care / PACE Home Visit [facility] [place] [facility] [address] [place] [phone] Ashley Eastman 04/03/2025 8:30 AM EST PACE Home Care / [facility] [place] [facility] [address] [place] [address] Carmen Hartmann 04/03/2025 9:00 AM EST [facility] [place] [facility] [address] [place] [address] 04/03/2025 4:30 PM EST PACE Home Care / [facility] Home Visit [facility] [place] [facility] [address] [place] [address] Ashley Eastman 04/04/2025 [facility] [place] [facility] [address] [place] [address] Regulo Ivy, ALONSO [address] [place] [phone] Constipation, unspecified constipation type 04/04/2025 8:00 AM EST PACE Home Care / [facility] [place] [facility] [address] [place] [address] Titi Thomas 04/04/2025 8:30 AM EST PACE Home Care / [facility] Home Visit [facility] [place] [facility] [address] [place] [address] Marysol Diaz 04/04/2025 4:30 PM EST PACE Home Care / [facility] [place] [facility] [address] [place] [address] Ashley Eastman 04/05/2025 12:00 PM EST PACE Home Care / [facility] Home Visit [facility] [place] [facility] [address] [place] [address] Dena Chavez 04/06/2025 12:00 PM EST PACE Home Care / [facility] [place] [facility] [address] [place] [address] Dena Chavez 2025 8:30 AM EST PACE Home Care / [facility] [place] [facility] [address] [place] [phone] Carmen Hartmann 2025 4:30 PM EST PACE Home Care / [facility] [place] [facility] [address] [place] [address] Ashley Eastman 04/08/2025 8:30 AM EST PACE Home Care / [facility] [place] [facility] [address] [place] [phone] Carmen Hartmann 04/08/2025 4:30 PM EST PACE Home Care / [facility] [place] [facility] [address] [place] [phone] Ashley Eastman 04/09/2025 8:30 AM EST PACE Home Care / [facility] [place] [facility] [address] [place] [phone] Carmen Hartmann 04/09/2025 4:30 PM EST PACE Home Care / [facility] [place] [facility] [address] [place] [phone] Ashley Eastman 04/10/2025 6:05 AM EST PACE Home Care / [facility] [place] [facility] [address] [place] [phone] Jackeline Mcrae 04/10/2025 9:00 AM EST [facility] [place] [facility] [address] [place] [phone] 04/10/2025 4:30 PM EST PACE Home Care / [facility] [place] [facility] [address] [place] [phone] Ashley Eastman 04/11/2025 8:00 AM EST PACE Home Care / [facility] [place] [facility] [address] [place] [address] Carmen Hartmann 04/11/2025 9:30 AM EST PACE Home Care / [facility] [place] [facility] [address] [place] [address] Carmen Hartmann 04/11/2025 4:30 PM EST PACE Home Care / [facility] [place] [facility] [address] [place] [phone] Ashley Eastman 04/12/2025 8:30 AM EST PACE Home Care / [facility] [place] [facility] [address] [place] [phone] Marysol Diaz 04/12/2025 12:00 PM EST PACE Home Care / [facility] [place] [facility] [address] [place] [phone] Natali Sanford 04/12/2025 5:30 PM EST PACE Home Care / [facility] [place] [facility] [address] [place] [phone] Marysol Diaz 04/13/2025 8:30 AM EST PACE Home Care / [facility] [place] [facility] [address] [place] [phone] Marysol Diaz 04/13/2025 12:00 PM EST PACE Home Care / [facility] [place] [facility] [address] [place] [phone] Natali Sanford 04/13/2025 4:30 PM EST PACE Home Care / [facility] [place] [facility] [address] [place] [phone] Marysol Diaz 04/13/2025 5:30 PM EST PACE Home Care / [facility] Visit [facility] [place] [facility] [address] [place] [address] Marysol Diaz 04/14/2025 8:30 AM EST PACE Home Care / [facility] Visit [facility] [place] [facility] [address] [place] [address] Carmen Hartmann 04/14/2025 4:30 PM EST PACE Home Care / [facility] Visit [facility] [place] [facility] [address] [place] [phone] Ashley Eastman 04/15/2025 8:30 AM EST PACE Home Care / [facility] Visit [facility] [place] [facility] [address] [place] [phone] Carmen Hartmann 04/15/2025 11:00 AM EST [facility] Visit [facility] [place] [facility] [address] [place] [phone] Regulo Ivy, SAVE ALL OPERATOR [address] [place] [phone] Brigette East LPN 04/15/2025 4:30 PM EST PACE Home Care / [facility] [place] [facility] [address] [place] [phone] Ashley Eastman 04/16/2025 8:30 AM EST PACE Home Care / [facility] [place] [facility] [address] [place] [phone] Carmen Hartmann 04/16/2025 4:30 PM EST PACE Home Care / [facility] [place] [facility] [address] [place] [phone] Ashley Eastman 04/17/2025 8:30 AM EST PACE Home Care / [facility] [place] [facility] [address] [place] [address] Carmen Hartmann 04/17/2025 9:00 AM EST P[facility] Attend[facility] [place] [facility] [address] [place] [address] 04/17/2025 4:30 PM EST PACE Home Care / [facility] [place] [facility] [address] [place] [phone] Ashley Eastman 04/18/2025 8:00 AM EST PACE Home Care / [facility] Visit [facility] [place] [facility] [address] [place] [phone] Carmen Hartmann 04/18/2025 4:30 PM EST PACE Home Care / [facility] Visit [facility] [place] [facility] [address] [place] [phone] Ashley Eastman 04/19/2025 12:00 PM EST PACE Home Care / [facility] Visit [facility] [place] [facility] [address] [place] [phone] Dena Chavez 04/20/2025 12:00 PM EST PACE Home Care / [facility] Visit [facility] [place] [facility] [address] [place] [phone] Dena Chavez 04/21/2025 8:30 AM EST PACE Home Care / [facility] [place] [facility] [address] [place] [phone] Carmen Hartmann 04/21/2025 4:30 PM EST PACE Home Care / [facility] [place] [facility] [address] [place] [phone] Ashley Eastman 04/22/2025 8:30 AM EST PACE Home Care / [facility] [place] [facility] [address] [place] [address] Carmen Hartmann 04/22/2025 4:30 PM EST PACE Home Care / [facility] Visit [facility] [place] [facility] [address] [place] [address] Ashley Eastman 04/23/2025 8:30 AM EST PACE Home Care / [facility] Visit [facility] [place] [facility] [address] [place] [address] Carmen Hartmann 04/23/2025 4:30 PM EST PACE Home Care / [facility] Visit [facility] [place] [facility] [address] [place] [address] Ashley Eastman 04/24/2025 8:30 AM EST PACE Home Care / [facility] Visit [facility] [place] [facility] [address] [place] [address] Carmen Hartmann 04/24/2025 9:00 AM EST [facility] Att[facility] [place] [facility] [address] [place] [address] 04/24/2025 4:30 PM EST PACE Home Care / [facility] [place] [facility] [address] [place] [address] Ashley Eastman 04/25/2025 8:00 AM EST PACE Home Care / [facility] Visit [facility] [place] [facility] [address] [place] [phone] Carmen Hartmann 04/25/2025 9:30 AM EST PACE Home Care / [facility] Visit [facility] [place] [facility] [address] [place] [address] Ralph Loyola 04/25/2025 4:30 PM EST PACE Home Care / [facility] Visit [facility] [place] [facility] [address] [place] [address] Ashley Eastman 04/26/2025 8:30 AM EST PACE Home Care / [facility] Visit [facility] [place] [facility] [address] [place] [phone] Marysol Diaz 04/26/2025 12:00 PM EST PACE Home Care / [facility] Visit [facility] [place] [facility] [address] [place] [address] Natali Sanford 04/26/2025 5:30 PM EST PACE Home Care / [facility] [place] [facility] [address] [place] [phone] Marysol Diaz 04/27/2025 8:30 AM EST PACE Home Care / [facility] Visit [facility] [place] [facility] [address] [place] [phone] Marysol Diaz 04/27/2025 12:00 PM EST PACE Home Care / [facility] Visit [facility] [place] [facility] [address] [place] [phone] Natali Sanford 04/27/2025 4:30 PM EST PACE Home Care / [facility] [place] [facility] [address] [place] [phone] Maryslo Diaz 04/27/2025 5:30 PM EST PACE Home Care / [facility] [place] [facility] [address] [place] [phone] Marysol Diaz 04/28/2025 8:30 AM EST PACE Home Care / [facility] [address] [place] [phone] Carmen Hartmann 04/28/2025 4:30 PM EST PACE Home Care / [facility] [address] [place] [address] Ashley Eastman 04/29/2025 8:30 AM EST PACE Home Care / [facility] Visit [facility] [place] [facility] [address] [place] [address] Carmen Hartmann 04/29/2025 4:30 PM EST PACE Home Care / [facility] Visit [facility] [place] [facility] [address] [place] [address] Ashley Eastman 04/30/2025 8:30 AM EST PACE Home Care / [facility] Visit [facility] [place] [facility] [address] [place] [phone] Carmen Hartmann 04/30/2025 4:30 PM EST PACE Home Care / [facility] Visit [facility] [place] [facility] [address] [place] [phone] Ashley Eastman 05/01/2025 8:30 AM EST PACE Home Care / [facility] Visit [facility] [place] [facility] [address] [place] [phone] Carmen Hartmann 05/01/2025 9:00 AM EST PACE Attendance/[facility] [place] [facility] [address] [place] [phone] 05/01/2025 11:30 AM EST Clinical Support [facility] [place] [address] [place] [address] 05/01/2025 4:30 PM EST PACE Home Care / [facility] Visit [facility] [place] [facility] [address] [place] [phone] Ashley Eastman 05/02/2025 8:00 AM EST PACE Home Care / [facility] Visit [facility] [place] [facility] [address] [place] [address] Carmen Hartmann 05/02/2025 9:30 AM EST PACE Home Care / [facility] Visit [facility] [place] [facility] [address] [place] [phone] Ralph Loyola 05/02/2025 4:30 PM EST PACE Home Care / [facility] Visit [facility] [place] [facility] [address] [place] [phone] Ashley Eastman 05/03/2025 12:00 PM EST PACE Home Care / [facility] Visit [facility] [address] [place] [phone] Dena Chavez 05/04/2025 12:00 PM EST PACE Home Care / [facility] [address] [place] [phone] Dena Chavez 05/05/2025 8:30 AM EST PACE Home Care / [facility] [address] [place] [phone] Carmen Hartmann 05/05/2025 4:30 PM EST PACE Home Care / [facility] [place] [facility] [address] [place] [phone] Ashley Eastman 05/06/2025 8:30 AM EST PACE Home Care / [facility] [place] [facility] [address] [place] [phone] Carmen Hartmann 05/06/2025 4:30 PM EST PACE Home Care / [facility] [address] [place] [phone] Ashley Eastman 05/07/2025 8:30 AM EST PACE Home Care / [facility] [place] [facility] [address] [place] [phone] Carmen Hartmann 05/07/2025 4:30 PM EST PACE Home Care / [facility] [address] [place] [address] Ashley Eastman 05/08/2025 8:30 AM EST PACE Home Care / [facility] [address] [place] [phone] Carmen Hartmann 05/08/2025 9:00 AM EST [facility] [place] [facility] [address] [place] [address] 05/08/2025 4:30 PM EST PACE Home Care / [facility] [address] [place] [phone] Ashley Eastman 05/09/2025 8:00 AM EST PACE Home Care / [facility] [address] [place] [phone] Carmen Hartmann 05/09/2025 9:30 AM EST PACE Home Care / [facility] [address] [place] [phone] Ralph Loyola 05/09/2025 4:30 PM EST PACE Home Care / [facility] [place] [facility] [address] [place] [phone] Ashley Eastman 05/10/2025 8:30 AM EST PACE Home Care / [facility] [address] [place] [phone] Marysol Diaz 05/10/2025 12:00 PM EST PACE Home Care / [facility] [address] [place] [phone] Natali Sanford 05/10/2025 5:30 PM EST PACE Home Care / [facility] [address] [place] [address] Marysol Diaz 05/11/2025 8:30 AM EST PACE Home Care / [facility] [place] [facility] [address] [place] [phone] Marysol Diaz 05/11/2025 12:00 PM EST PACE Home Care / [facility] [address] [place] [phone] Natali Sanford 05/11/2025 4:30 PM EST PACE Home Care / [facility] [place] [facility] [address] [place] [phone] Marysol Diaz 05/11/2025 5:30 PM EST PACE Home Care / [facility] [address] [place] [phone] Marysol Diaz 05/12/2025 8:30 AM EST PACE Home Care / [facility] [place] [facility] [address] [place] [phone] Carmen Hartmann 05/12/2025 4:30 PM EST PACE Home Care / [facility] [address] [place] [phone] Ashley Eastman 05/13/2025 8:30 AM EST PACE Home Care / [facility] [address] [place] [phone] Carmen Hartmann 05/13/2025 11:00 AM EST [facility] Visit [facility] [place] [facility] [address] [place] [address] Regulo Ivy, SAVE ALL OPERATOR [address] [place] [phone] Brigette East VICKY 05/13/2025 4:30 PM EST PACE Home Care / [facility] [address] [place] [phone] Ashley Eastman 05/14/2025 8:30 AM EST PACE Home Care / [facility] [address] [place] [phone] Carmen Hartmann 05/14/2025 4:30 PM EST PACE Home Care / [facility] [address] [place] [phone] Ashley Eastman 05/15/2025 8:30 AM EST PACE Home Care / [facility] [place] [facility] [address] [place] [phone] Carmen Hartmann 05/15/2025 9:00 AM EST [facility] [place] [facility] [address] [place] [phone] 05/15/2025 4:30 PM EST PACE Home Care / [facility] [place] [facility] [address] [place] [phone] Ashley Eastman 05/16/2025 8:00 AM EST PACE Home Care / [facility] [address] [place] [phone] Carmen Hartmann 05/16/2025 9:30 AM EST PACE Home Care / [facility] [address] [place] [phone] Ralph Loyola 05/16/2025 4:30 PM EST PACE Home Care / [facility] [place] [facility] [address] [place] [phone] Ashley Eastman 05/17/2025 12:00 PM EST PACE Home Care / [facility] [address] [place] [phone] Dena Chavez 05/18/2025 12:00 PM EST P[facility] Home Care / [facility] [place] [facility] [address] [place] [phone] Dena Chavez 05/19/2025 8:30 AM EST P[facility] Home Care / [facility] [address] [place] [phone] Carmen Hartmann 05/19/2025 4:30 PM EST P[facility] Home Care / [facility] [place] [facility] [address] [place] [phone] Ashley Eastman 05/20/2025 8:30 AM EST P[facility] Home Care / [facility] [address] [place] [phone] Carmen Hartmann 05/20/2025 4:30 PM EST P[facility] Home Care / [facility] [address] [place] [phone] Ashley Eastman 05/21/2025 8:30 AM EST P[facility] Home Care / [facility] [address] [place] [phone] Carmen Hartmann 05/21/2025 4:30 PM EST PACE Home Care / [facility] [address] [place] [phone] Ashley Eastman 05/22/2025 8:30 AM EST PACE Home Care / [facility] [address] [place] [phone] Carmen Hartmann 05/22/2025 9:00 AM EST P[facility] Attend[facility] [place] [facility] [address] [place] [address] 05/22/2025 4:30 PM EST PACE Home Care / [facility] [address] [place] [phone] Ashley Eastman 05/23/2025 8:00 AM EST PACE Home Care / [facility] [address] [place] [phone] Carmen Hartmann 05/23/2025 9:30 AM EST PACE Home Care / [facility] [address] [place] [phone] Ralph Loyola 05/23/2025 4:30 PM EST PACE Home Care / [facility] [address] [place] [phone] Ashley Eastman 05/24/2025 8:30 AM EST P[facility] Home Care / [facility] [place] [facility] [address] [place] [phone] Marysol Diaz 05/24/2025 12:00 PM EST P[facility] Home Care / [facility] [address] [place] [phone] Natali Sanford 05/24/2025 5:30 PM EST PACE Home Care / [facility] [address] [place] [phone] Marysol Diaz 05/25/2025 8:30 AM EST P[facility] Home Care / [facility] [place] [facility] [address] [place] [phone] Marysol Diaz 05/25/2025 12:00 PM EST P[facility] Home Care / [facility] [address] [place] [address] Natali Sanford 05/25/2025 4:30 PM EST PACE Home Care / [facility] [address] [place] [phone] Marysol Diaz 05/25/2025 5:30 PM EST P[facility] Home Care / [facility] [address] [place] [phone] Marysol Diaz 05/26/2025 8:30 AM EST P[facility] Home Care / [facility] [address] [place] [phone] Carmen Hartmann 05/26/2025 4:30 PM EST P[facility] Home Care / [facility] [address] [place] [phone] Ashley Eastman 05/27/2025 8:30 AM EST P[facility] Home Care / [facility] [address] [place] [phone] Carmen Hartmann 05/27/2025 4:30 PM EST P[facility] Home Care / [facility] [address] [place] [phone] TherAshley francisco 05/28/2025 8:30 AM EST P[facility] Home Care / [facility] [address] [place] [phone] Carmen Hartmann 05/28/2025 4:30 PM EST P[facility] Home Care / [facility] [address] [place] [phone] Ashley Eastman 05/29/2025 8:30 AM EST P[facility] Home Care / [facility] [place] [facility] [address] [place] [phone] Carmen Hartmann 05/29/2025 9:00 AM EST [facility] Att[facility] [place] [facility] [address] [place] [phone] 05/29/2025 4:30 PM EST PACE Home Care / [facility] [place] [facility] [address] [place] [phone] Ashley Eastman 05/30/2025 8:00 AM EST P[facility] Home Care / [facility] [place] [facility] [address] [place] [phone] Carmen Hartmann 05/30/2025 9:30 AM EST PACE Home Care / [facility] [place] [facility] [address] [place] [phone] Ralph Loyola 05/30/2025 4:30 PM EST P[facility] Home Care / [facility] [place] [facility] [address] [place] [phone] Ashley Eastman 06/05/2025 9:00 AM EST [facility] Attend[facility] [address] [place] [phone] 06/10/2025 11:00 AM EST Office Visit [facility] [address] [place] [phone] Michelle Castillo MD [address] [place] [phone] Brigette East LPN 06/12/2025 9:00 AM EST [facility] Attend[facility] [address] [place] [phone] 06/19/2025 9:00 AM EST [facility] Att[facility] [address] [place] [address] 06/26/2025 9:00 AM EDT [facility] Att[facility] [address] [place] [address] 06/27/2025 1:20 PM EDT Office Visit Gastroenterology - [address] [place] [address] Analisa Perez, ALONSO [address] [place] [address] 07/03/2025 9:00 AM EDT [facility] Att[facility] [address] [place] [address] 07/10/2025 9:00 AM EDT [facility] Att[facility] [address] [place] [address] 07/17/2025 9:00 AM EDT [facility] Att[facility] [address] [place] [phone] 07/17/2025 3:30 PM EDT [facility] [address] [place] [phone] 07/24/2025 9:00 AM EDT [facility] Att[facility] [address] [place] [address] 07/31/2025 9:00 AM EDT [facility] Att[facility] [address] [place] [phone] 08/07/2025 9:00 AM EDT [facility] Att[facility] [address] [place] [phone] 08/14/2025 9:00 AM EDT [facility] Att[facility] [address] [place] [phone] 08/21/2025 9:00 AM EDT [facility] Att[facility] [address] [place] [phone] 08/28/2025 9:00 AM EDT [facility] [address] [place] [phone] 09/04/2025 9:00 AM EDT [facility] [address] [place] [phone] 09/11/2025 9:00 AM EDT [facility] [address] [place] [phone] 09/18/2025 9:00 AM EDT [facility] [address] [place] [phone] 09/25/2025 9:00 AM EDT [facility] [address] [place] [phone] 10/02/2025 9:00 AM EDT [facility] [address] [place] [phone] 10/09/2025 9:00 AM EDT [facility] [address] [place] [phone] documented as of this encounter Visit Diagnoses Not on filedocumented in this encounter Additional Health Concerns Infection Onset Date Last Indicated Resolved Time Gastrointestinal Rule-Out 02/10/2025 02/10/2025 7:04 PM EST documented as of this encounter Care Teams [employer] Relationship Specialty Start Date End Date Regulo Ivy NP [address] [place] [phone] PCP - General PACE 06/07/24 documented as of this encounter
--- OUTSIDE RECORDS SUMMARY | 2025-04-01 17:09 | XMS_ITS | Encounter Summary ---
Author Organization [facility] Address [address] [place] [address] Care Team Providers Care Benefit Director Name Role Phone Regulo Ivy NP Primary Care Provider [phone] Reason for Visit * Reason Comments Fall Encounter Details Date Type Department Care Team (Late st Contact Info) Description 06/17/[address] 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 Social History Tobacco Use Types Packs/Day Years [...] [facility] [address] [place] [address] Carmen Hartmann 04/02/2025 4:30 PM EST PACE Home Care / [facility] [facility] [place] [facility] [address] [place] [address] Ashley Eastman 04/03/2025 8:30 AM EST PACE Home Care / P[place] Home Visit [facility] [place] [facility] [address] [place] [address] Carmen Hartmann 04/03/2025 9:00 AM EST PACE Attendance[facility] [facility] [place] [facility] [address] [place] [address] 04/03/2025 4:30 PM EST PACE Home Care / [place] Home Visit [facility] [place] [facility] [address] [place] [address] Ashley Eastman 04/04/2025 [facility] [place] [facility] [address] [place] [address] Regulo Ivy, ALONSO [address] [address] Constipation, unspecified constipation type 04/04/2025 8:00 AM EST PACE Home Care / [place] [facility] Visit [facility] [place] [facility] [address] [place] [address] Titi Thomas 04/04/2025 8:30 AM EST PACE Home Care / [place] Home Visit [facility] [place] [facility] [address] [place] [address] Marysol Diaz 04/04/2025 4:30 PM EST PACE Home Care / [place] Home Visit [facility] [place] [facility] [address] [place] [address] Ashley Eastman 04/05/2025 12:00 PM EST PACE Home Care / [place] Home [facility] [place] [facility] [address] [place] [phone] Dena Chavez 04/06/2025 12:00 PM EST PACE Home Care / [place] Home Visit [facility] [place] [facility] [address] [place] [address] Dena Chavez 2025 8:30 AM EST PACE Home Care / [place] Home Visit [facility] [place] [facility] [address] [place] [phone] Carmen Hartmann 2025 4:30 PM EST PACE Home Care / [place] Home Visit [facility] [place] [facility] [address] [place] [phone] Ashley Eastman 04/08/2025 8:30 AM EST PACE Home Care / [place] Home Visit [facility] [place] [facility] [address] [place] [phone] Carmen Hartmann 04/08/2025 4:30 PM EST PACE Home Care / [place] [facility] [place] [facility] [address] [place] [phone] Ashley Eastman 04/09/2025 8:30 AM EST PACE Home Care / [place] Home Visit [facility] [place] [facility] [address] [place] [phone] Carmen Hartmann 04/09/2025 4:30 PM EST PACE Home Care / [place] [facility] Visit [facility] [place] [facility] [address] [place] [phone] Ashley Eastman 04/10/2025 6:05 AM EST PACE Home Care / [place] Home Visit [facility] [place] [facility] [address] [place] [address] Jackeline Mcrae 04/10/2025 9:00 AM EST [place] [facility] [place] [facility] [address] [place] [address] 04/10/2025 4:30 PM EST PACE Home Care / [place] [facility] Visit [facility] [place] [facility] [address] [place] [address] Ashley Eastman 04/11/2025 8:00 AM EST PACE Home Care / [place] Home Visit [facility] [place] [facility] [address] [place] [phone] Cramen Hartmann 04/11/2025 9:30 AM EST PACE Home Care / [place] Home Visit [facility] [place] [facility] [address] [place] [phone] Carmen Hartmann 04/11/2025 4:30 PM EST PACE Home Care / [place] [facility] Visit [facility] [place] [facility] [address] [place] [phone] Ashley Eastman 04/12/2025 8:30 AM EST PACE Home Care / [place] [facility] Visit [facility] [place] [facility] [address] [place] [phone] Marysol Diaz 04/12/2025 12:00 PM EST PACE Home Care / [place] [facility] Visit [facility] [place] [facility] [address] [place] [phone] Natali Sanford 04/12/2025 5:30 PM EST PACE Home Care / [place] [facility] Visit [facility] [place] [facility] [address] [place] [phone] Marysol Diaz 04/13/2025 8:30 AM EST PACE Home Care / [place] [facility] Visit [facility] [place] [facility] [address] [place] [phone] Marysol Diaz 04/13/2025 12:00 PM EST PACE Home Care / [place] [facility] [place] [facility] [address] [place] [phone] Natali Sanford 04/13/2025 4:30 PM EST PACE Home Care / [place] [facility] Visit [facility] [place] [facility] [address] [place] [phone] Marysol Diaz 04/13/2025 5:30 PM EST PACE Home Care / [place] Home Visit [facility] [place] [facility] [address] [place] [phone] Marysol Diaz 04/14/2025 8:30 AM EST PACE Home Care / [place] Home Visit [facility] [place] [facility] [address] [place] [phone] Carmen Hartmann 04/14/2025 4:30 PM EST PACE Home Care / [place] Home Visit [facility] [place] [facility] [address] [place] [phone] Ashley Eastman 04/15/2025 8:30 AM EST PACE Home Care / [place] Home Visit [facility] [place] [facility] [address] [place] [phone] Carmen Hartmann 04/15/2025 11:00 AM EST Office Visit [facility] [place] [facility] [address] [place] [phone] Regulo Ivy, ALONSO [address] [address] Brigette East LPN 04/15/2025 4:30 PM EST PACE Home Care / [place] Home Visit [facility] [place] [facility] [address] [place] [address] Ashley Eastman 04/16/2025 8:30 AM EST PACE Home Care / [place] Home Visit [facility] [place] [facility] [address] [place] [address] Carmen Hartmann 04/16/2025 4:30 PM EST PACE Home Care / [place] Home Visit [facility] [place] [facility] [address] [place] [address] Ashley Eastman 04/17/2025 8:30 AM EST PACE Home Care / [place] Home Visit [facility] [place] [facility] [address] [place] [address] Carmen Hartmann 04/17/2025 9:00 AM EST P[facility] Att[facility] [place] [facility] [address] [place] [address] 04/17/2025 4:30 PM EST PACE Home Care / [place] [facility] Visit [facility] [place] [facility] [address] [place] [address] Ashley Eastman 04/18/2025 8:00 AM EST PACE Home Care / [place] Home Visit [facility] [place] [facility] [address] [place] [address] Carmen Hartmann 04/18/2025 4:30 PM EST PACE Home Care / [place] [facility] Visit [facility] [place] [facility] [address] [place] [address] Ashley Eastman 04/19/2025 12:00 PM EST PACE Home Care / [place] Home Visit [facility] [place] [facility] [address] [place] [address] Dena Chavez 04/20/2025 12:00 PM EST PACE Home Care / [place] Home Visit [facility] [place] [facility] [address] [place] [phone] Dena Chavez 04/21/2025 8:30 AM EST PACE Home Care / [place] [facility] Visit [facility] [place] [facility] [address] [place] [address] Carmen Hartmann 04/21/2025 4:30 PM EST PACE Home Care / [facility] Visit [facility] [address] [place] [address] Ashley Eastman 04/22/2025 8:30 AM EST PACE Home Care / [place] Home Visit [facility] [place] [facility] [address] [place] [phone] Carmen Hartmann 04/22/2025 4:30 PM EST PACE Home Care / P[facility] Visit [facility] [address] [place] [phone] Ashley Eastman 04/23/2025 8:30 AM EST PACE Home Care / [place] Home Visit [facility] [place] [facility] [address] [place] [phone] Carmen Hartmann 04/23/2025 4:30 PM EST PACE Home Care / [facility] Visit [facility] [address] [place] [phone] Ashley Eastman 04/24/2025 8:30 AM EST PACE Home Care / [place] Home Visit [facility] [place] [facility] [address] [place] [phone] Carmen Hartmann 04/24/2025 9:00 AM EST PACE Att[facility] [place] [facility] [address] [place] [address] 04/24/2025 4:30 PM EST PACE Home Care / [place] [facility] Visit [facility] [place] [facility] [address] [place] [address] Ashley Eastman 04/25/2025 8:00 AM EST PACE Home Care / [place] Home Visit [facility] [place] [facility] [address] [place] [address] Carmen Hartmann 04/25/2025 9:30 AM EST PACE Home Care / [place] Home Visit [facility] [place] [facility] [address] [place] [address] Ralph Loyola 04/25/2025 4:30 PM EST PACE Home Care / [place] Home Visit [facility] [place] [facility] [address] [place] [phone] Ashley Eastman 04/26/2025 8:30 AM EST PACE Home Care / [place] [facility] Visit [facility] [place] [facility] [address] [place] [phone] Marysol Diaz 04/26/2025 12:00 PM EST PACE Home Care / [place] [facility] Visit [facility] [place] [facility] [address] [place] [phone] Natali Sanford 04/26/2025 5:30 PM EST PACE Home Care / [place] [facility] Visit [facility] [place] [facility] [address] [place] [phone] Marysol Diaz 04/27/2025 8:30 AM EST PACE Home Care / [place] [facility] Visit [facility] [place] [facility] [address] [place] [phone] Marysol Diaz 04/27/2025 12:00 PM EST PACE Home Care / [place] [facility] Visit [facility] [place] [facility] [address] [place] [phone] Natali Sanford 04/27/2025 4:30 PM EST PACE Home Care / [place] [facility] Visit [facility] [place] [facility] [address] [place] [phone] Marysol Diaz 04/27/2025 5:30 PM EST PACE Home Care / [place] Home Visit [facility] [place] [facility] [address] [place] [address] Marysol Diaz 04/28/2025 8:30 AM EST PACE Home Care / P[place] Home Visit [facility] [place] [facility] [address] [place] [address] Carmen Hartmann 04/28/2025 4:30 PM EST PACE Home Care / P[place] Home Visit [facility] [place] [facility] [address] [place] [address] Ashley Eastman 04/29/2025 8:30 AM EST PACE Home Care / [facility] Visit [facility] [address] [place] [phone] Carmen Hartmann 04/29/2025 4:30 PM EST PACE Home Care / [facility] Visit [facility] [place] [facility] [address] [place] [phone] Ashley Eastman 04/30/2025 8:30 AM EST PACE Home Care / [facility] [address] [place] [phone] Carmen Hartmann 04/30/2025 4:30 PM EST PACE Home Care / P[place] [facility] Visit [facility] [place] [facility] [address] [place] [phone] Ashley Eastman 05/01/2025 8:30 AM EST PACE Home Care / [facility] Home Visit [facility] [place] [facility] [address] [place] [address] Carmen Hartmann 05/01/2025 9:00 AM EST PACE Att[facility]ance[facility] [place] [facility] [address] [place] [address] 05/01/2025 11:30 AM EST [facility] [address] [place] [address] 05/01/2025 4:30 PM EST PACE Home Care / [facility] [facility] Visit [facility] [place] [facility] [address] [place] [phone] Ashley Eastman 05/02/2025 8:00 AM EST PACE Home Care / [place] Home Visit [facility] [place] [facility] [address] [place] [phone] Carmen Hartmann 05/02/2025 9:30 AM EST PACE Home Care / [place] [facility] Visit [facility] [place] [facility] [address] [place] [phone] Ralph Loyola 05/02/2025 4:30 PM EST PACE Home Care / [place] Home Visit [facility] [place] [facility] [address] [place] [phone] Ashley Eastman 05/03/2025 12:00 PM EST PACE Home Care / [place] [facility] Visit [facility] [place] [facility] [address] [place] [phone] Dena Chavez 05/04/2025 12:00 PM EST PACE Home Care / [place] [facility] Visit [facility] [place] [facility] [address] [place] [phone] Dena Chavez 05/05/2025 8:30 AM EST PACE Home Care / [place] [facility] Visit [facility] [place] [facility] [address] [place] [phone] Carmen Hartmann 05/05/2025 4:30 PM EST PACE Home Care / [place] [facility] Visit [facility] [place] [facility] [address] [place] [phone] Ashley Eastman 05/06/2025 8:30 AM EST PACE Home Care / [place] [facility] [place] [facility] [address] [place] [phone] Carmen Hartmann 05/06/2025 4:30 PM EST PACE Home Care / [place] [facility] Visit [facility] [place] [facility] [address] [place] [address] Ashley Eastman 05/07/2025 8:30 AM EST PACE Home Care / [place] [facility] Visit [facility] [place] [facility] [address] [place] [phone] Carmen Hartmann 05/07/2025 4:30 PM EST PACE Home Care / [place] [facility] [place] [facility] [address] [place] [phone] Ashley Eastman 05/08/2025 8:30 AM EST PACE Home Care / [place] [facility] [place] [facility] [address] [place] [phone] Carmen Hartmann 05/08/2025 9:00 AM EST [facility] [facility] [place] [facility] [facility] [address] [place] [address] 05/08/2025 4:30 PM EST PACE Home Care / [place] [facility] [place] [facility] [address] [place] [phone] Ashley Eastman 05/09/2025 8:00 AM EST PACE Home Care / [place] [facility] [place] [facility] [address] [place] [phone] Carmen Hartmann 05/09/2025 9:30 AM EST PACE Home Care / [place] [facility] [place] [facility] [address] [place] [phone] Ralph Loyola 05/09/2025 4:30 PM EST PACE Home Care / [place] [facility] [place] [facility] [address] [place] [phone] Ashley Eastman 05/10/2025 8:30 AM EST PACE Home Care / [facility] [facility] [place] [facility] [address] [place] [address] Marysol Diaz 05/10/2025 12:00 PM EST PACE Home Care / [facility] [facility] [place] [facility] [address] [place] [address] Natali Sanford 05/10/2025 5:30 PM EST PACE Home Care / [facility] [facility] [place] [facility] [address] [place] [address] Marysol Diaz 05/11/2025 8:30 AM EST PACE Home Care / [facility] [place] [facility] [address] [place] [phone] Marysol Diaz 05/11/2025 12:00 PM EST PACE Home Care / [place] [facility] [place] [facility] [address] [place] [phone] Natali Sanford 05/11/2025 4:30 PM EST PACE Home Care / [place] [facility] [place] [facility] [address] [place] [phone] Marysol Diaz 05/11/2025 5:30 PM EST PACE Home Care / [facility] [place] [facility] [address] [place] [phone] Marysol Diaz 05/12/2025 8:30 AM EST PACE Home Care / [facility] [place] [facility] [address] [place] [phone] Carmen Hartmann 05/12/2025 4:30 PM EST PACE Home Care / [facility] [facility] [place] [facility] [address] [place] [phone] Ashley Eastman 05/13/2025 8:30 AM EST PACE Home Care / [place] [facility] [place] [facility] [address] [place] [address] Carmen Hartmann 05/13/2025 11:00 AM EST [facility] Visit [facility] [place] [facility] [address] [place] [address] Regulo Ivy, ALONSO [address] [address] Brigette East LPN 05/13/2025 4:30 PM EST PACE Home Care / [facility] Visit [facility] [place] [facility] [address] [place] [phone] Ashley Eastman 05/14/2025 8:30 AM EST PACE Home Care / [facility] Visit [facility] [place] [facility] [address] [place] [phone] Carmen Hartmann 05/14/2025 4:30 PM EST PACE Home Care / [place] [facility] [place] [facility] [address] [place] [phone] Ashley Eastman 05/15/2025 8:30 AM EST PACE Home Care / [place] [facility] [place] [facility] [address] [place] [phone] Carmen Hartmann 05/15/2025 9:00 AM EST P[facility] Att[facility] [facility] [place] [facility] [address] [place] [address] 05/15/2025 4:30 PM EST PACE Home Care / [facility] [facility] [place] [facility] [address] [place] [phone] Ashley Eastman 05/16/2025 8:00 AM EST PACE Home Care / [place] [facility] [place] [facility] [address] [place] [phone] Carmen Hartmann 05/16/2025 9:30 AM EST PACE Home Care / [place] [facility] [place] [facility] [address] [place] [phone] Ralph Loyola 05/16/2025 4:30 PM EST PACE Home Care / [place] [facility] [place] [facility] [address] [place] [phone] Ashley Eastman 05/17/2025 12:00 PM EST PACE Home Care / [place] [facility] [place] [facility] [address] [place] [phone] Dena Chavez 05/18/2025 12:00 PM EST PACE Home Care / [facility] [facility] [place] [facility] [address] [place] [phone] Dena Chavez 05/19/2025 8:30 AM EST PACE Home Care / [facility] [place] [facility] [address] [place] [phone] Carmen Hartmann 05/19/2025 4:30 PM EST PACE Home Care / [facility] [facility] [place] [facility] [address] [place] [phone] Ashley Eastman 05/20/2025 8:30 AM EST PACE Home Care / [facility] [place] [facility] [address] [place] [phone] Carmen Hartmann 05/20/2025 4:30 PM EST PACE Home Care / [facility] [facility] [place] [facility] [address] [place] [phone] Ashley Eastman 05/21/2025 8:30 AM EST PACE Home Care / [facility] [place] [facility] [address] [place] [phone] Carmen Hartmann 05/21/2025 4:30 PM EST PACE Home Care / [facility] [place] [facility] [address] [place] [phone] Ashley Eastman 05/22/2025 8:30 AM EST PACE Home Care / [facility] [facility] [place] [facility] [address] [place] [phone] Carmen Hartmann 05/22/2025 9:00 AM EST [facility] [place] [facility] [place] [facility] [address] [place] [address] 05/22/2025 4:30 PM EST PACE Home Care / [facility] [facility] [place] [facility] [address] [place] [phone] Ashley Eastman 05/23/2025 8:00 AM EST PACE Home Care / [facility] [place] [facility] [address] [place] [phone] Carmen Hartmann 05/23/2025 9:30 AM EST PACE Home Care / [facility] [place] [facility] [address] [place] [phone] Ralph Loyola 05/23/2025 4:30 PM EST PACE Home Care / [facility] [place] [facility] [address] [place] [phone] Ashley Eastman 05/24/2025 8:30 AM EST PACE Home Care / [facility] [place] [facility] [address] [place] [phone] Marysol Diaz 05/24/2025 12:00 PM EST PACE Home Care / [place] [facility] [place] [facility] [address] [place] [phone] Natali Sanford 05/24/2025 5:30 PM EST PACE Home Care / [facility] [facility] [place] [facility] [address] [place] [phone] Marysol Diaz 05/25/2025 8:30 AM EST PACE Home Care / [facility] [place] [facility] [address] [place] [phone] Marysol Diaz 05/25/2025 12:00 PM EST PACE Home Care / [facility] [place] [facility] [address] [place] [phone] Natali Sanford 05/25/2025 4:30 PM EST PACE Home Care / [facility] [place] [facility] [address] [place] [phone] Marysol Diaz 05/25/2025 5:30 PM EST PACE Home Care / [facility] [facility] [place] [facility] [address] [place] [phone] Marysol Diaz 05/26/2025 8:30 AM EST PACE Home Care / [facility] [facility] [place] [facility] [address] [place] [phone] Carmen Hartmann 05/26/2025 4:30 PM EST PACE Home Care / [facility] [place] [facility] [address] [place] [phone] Ashley Eastman 05/27/2025 8:30 AM EST PACE Home Care / [facility] [place] [facility] [address] [place] [phone] Carmen Hartmann 05/27/2025 4:30 PM EST PACE Home Care / [facility] [place] [facility] [address] [place] [phone] Ashley Eastman 05/28/2025 8:30 AM EST PACE Home Care / [facility] [place] [facility] [address] [place] [address] Carmen Hartmann 05/28/2025 4:30 PM EST PACE Home Care / [facility] [place] [facility] [address] [place] [address] Ashley Eastman 05/29/2025 8:30 AM EST PACE Home Care / [facility] [facility] [place] [facility] [address] [place] [address] Carmen Hartmann 05/29/2025 9:00 AM EST [facility] [place] [facility] [place] [facility] [address] [place] [address] 05/29/2025 4:30 PM EST PACE Home Care / [facility] [facility] [place] [facility] [address] [place] [address] Ashley Eastman 05/30/2025 8:00 AM EST PACE Home Care / [facility] [facility] [place] [facility] [address] [place] [phone] Carmen Hartmann 05/30/2025 9:30 AM EST PACE Home Care / [facility] [place] [facility] [address] [place] [phone] Ralph Loyola 05/30/2025 4:30 PM EST PACE Home Care / [place] [facility] [place] [facility] [address] [place] [phone] Ashley Eastman 06/05/2025 9:00 AM EST [facility] [place] [facility] [place] [facility] [address] [place] [address] 06/10/2025 11:00 AM EST [facility] [place] [facility] [address] [place] [phone] Michelle Castillo MD [address] [address] Brigette East LPN 06/12/2025 9:00 AM EST PACE Attendance/Day Center [facility] [address] [place] [phone] 06/19/2025 9:00 AM EST PACE Attendance/Day Center [facility] Day [address] [address] 06/26/2025 9:00 AM EDT PACE Attendance/Day Center [facility] Day [address] [address] 06/27/2025 1:20 PM EDT Office Visit Gastroenterology - [address] Val[address] [phone] Analisa Perez NP [address] [address] 07/03/2025 9:00 AM EDT PACE Attendance/Day Center [facility] Day [address] [address] 07/10/2025 9:00 AM EDT PACE Attendance/Day Center [facility] Day [address] [id number] 07/17/2025 9:00 AM EDT PACE Attendance/Day Center [facility] Day [address] [phone] 07/17/2025 3:30 PM EDT PACE External Visit [address] [phone] 07/24/2025 9:00 AM EDT PACE Attendance/Day Center [facility] PACE Day [address] [phone] 07/31/2025 9:00 AM EDT P[facility] Attendance/[place] [facility] [address] [place] [address] 08/07/2025 9:00 AM EDT P[facility] Attendance/[place] [facility] [address] [place] [address] 08/14/2025 9:00 AM EDT P[facility] Attendance/[place] [facility] [address] [place] [address] 08/21/2025 9:00 AM EDT P[facility] Attendance/[place] [facility] [address] [place] [phone] 08/28/2025 9:00 AM EDT P[facility] Attendance/[facility] [address] [place] [phone] 09/04/2025 9:00 AM EDT P[facility] Attendance/[place] [facility] [address] [place] [phone] 09/11/2025 9:00 AM EDT P[facility] Attendance/[place] [facility] [address] [place] [phone] 09/18/2025 9:00 AM EDT P[facility] Attendance/[place] [facility] [address] [place] [phone] 09/25/2025 9:00 AM EDT PACE Attendance[place] [facility] [address] [place] [phone] 10/02/2025 9:00 AM EDT P[facility] Attendance/[place] [facility] [address] [place] [phone] 10/09/2025 9:00 AM EDT PACE Attendance/[place] [facility] [place] [facility] [address] [place] [phone] documented as of this encounter Visit Diagnoses Not on filedocumented in this encounter Additional Health Concerns Infection Onset Date Last Indicated Resolved Time Gastrointestinal Rule-Out 02/10/2025 02/10/2025 7:04 PM EST documented as of this encounter Care Teams Benefit Director Relationship Specialty Start Date End Date Regulo Ivy NP [address] [place] [address] PCP - General PACE 06/07/24 documented as of this encounter
--- OUTSIDE RECORDS SUMMARY | 2025-04-01 17:09 | XMS_ITS | Encounter Summary ---
Author Organization [facility] Address [address] [place] [address] Care Team Providers Care Fire Protection Specialist Name Role Phone Regulo Ivy NP Primary Care Provider Encounter Details Date Type Department Care Team (Late st Contact Info) Description 06/18/2024 Health Home Core Service [facility] In Home Nursing and Aide Services [address] [place] [address] Juliet Scott NP 200 [facility] [address] [place] [address] Social History Tobacco Use Types Packs/Day Years [...] In Home Nursing and Aide Services [address] [place] [address] Carmen Hartmann 04/02/2025 4:30 PM EST PACE Home Care / PACE Home Visit [facility] [place] [facility] [address] [place] [phone] Ashley Eastman 04/03/2025 8:30 AM EST PACE Home Care / PACE Home Visit [facility] [place] [facility] [address] [place] [phone] Carmen Hartmann 04/03/2025 9:00 AM EST PACE Attendance[facility] [place] [facility] [address] [place] [address] 04/03/2025 4:30 PM EST PACE Home Care / PACE Home Visit [facility] [place] [facility] [address] [place] [phone] Ashley Eastman 04/04/2025 [facility] [place] [facility] [address] [place] [phone] Regulo Ivy, ALONSO [address] [address] Constipation, unspecified constipation type 04/04/2025 8:00 AM EST PACE Home Care / PACE Home Visit [facility] [place] [facility] [address] [place] [phone] Titi Thomas 04/04/2025 8:30 AM EST PACE Home Care / PACE Home Visit [facility] [place] [facility] [address] [place] [phone] Marysol Diaz 04/04/2025 4:30 PM EST PACE Home Care / [facility] Visit [facility] [place] [facility] [address] [place] [address] Ashley Eastman 04/05/2025 12:00 PM EST PACE Home Care / [facility] Home Visit [facility] [place] [facility] [address] [place] [phone] Dena Chavez 04/06/2025 12:00 PM EST PACE Home Care / P[facility] Home Visit [facility] [place] [facility] [address] [place] [phone] Dena Chavez 2025 8:30 AM EST PACE Home Care / P[facility] Home Visit [facility] [place] [facility] [address] [place] [phone] Carmen Hartmann 2025 4:30 PM EST PACE Home Care / P[facility] Home Visit [facility] [place] [facility] [address] [place] [phone] Ashley Eastman 04/08/2025 8:30 AM EST PACE Home Care / PACE Home Visit [facility] [place] [facility] [address] [place] [phone] Carmen Hartmann 04/08/2025 4:30 PM EST PACE Home Care / P[facility] Home Visit [facility] [place] [facility] [address] [place] [phone] Ashley Eastman 04/09/2025 8:30 AM EST PACE Home Care / P[facility] Home Visit [facility] [place] [facility] [address] [place] [phone] Carmen Hartmann 04/09/2025 4:30 PM EST PACE Home Care / PACE Home Visit [facility] [place] [facility] [address] [place] [phone] Ashley Eastman 04/10/2025 6:05 AM EST PACE Home Care / [facility] Home Visit [facility] [place] [facility] [address] [place] [address] Jackeline Mcrae 04/10/2025 9:00 AM EST PACE Attendance[facility] [place] [facility] [address] [place] [address] 04/10/2025 4:30 PM EST PACE Home Care / P[place] Home Visit [facility] [place] [facility] [address] [place] [address] Ashley Eastman 04/11/2025 8:00 AM EST PACE Home Care / [facility] Visit [facility] [place] [facility] [address] [place] [phone] Carmen Hartmann 04/11/2025 9:30 AM EST PACE Home Care / PACE Home Visit [facility] [place] [facility] [address] [place] [address] Carmen Hartmann 04/11/2025 4:30 PM EST PACE Home Care / [place] Home Visit [facility] [place] [facility] [address] [place] [phone] Ashley Eastman 04/12/2025 8:30 AM EST PACE Home Care / PACE Home Visit [facility] [place] [facility] [address] [place] [address] Marysol Diaz 04/12/2025 12:00 PM EST PACE Home Care / PACE Home Visit [facility] [place] [facility] [address] [place] [phone] Natali Sanford 04/12/2025 5:30 PM EST PACE Home Care / P[facility] Home Visit [facility] [place] [facility] [address] [place] [phone] Marysol Diaz 04/13/2025 8:30 AM EST PACE Home Care / PACE Home Visit [facility] [place] [facility] [address] [place] [phone] Marysol Diaz 04/13/2025 12:00 PM EST PACE Home Care / P[place] Home Visit [facility] [place] [facility] [address] [place] [phone] Natali Sanford 04/13/2025 4:30 PM EST PACE Home Care / P[place] Home Visit [facility] [place] [facility] [address] [place] [phone] Marysol Diaz 04/13/2025 5:30 PM EST PACE Home Care / PACE Home Visit [facility] [place] [facility] [address] [place] [phone] Marysol Diaz 04/14/2025 8:30 AM EST PACE Home Care / [facility] Home Visit [facility] [place] [facility] [address] [place] [phone] Carmen Hartmann 04/14/2025 4:30 PM EST PACE Home Care / P[place] Home Visit [facility] [place] [facility] [address] [place] [phone] Ashley Eastman 04/15/2025 8:30 AM EST PACE Home Care / PACE Home Visit [facility] [place] [facility] [address] [place] [phone] Carmen Hartmann 04/15/2025 11:00 AM EST Office Visit [facility] [place] [facility] [address] [place] [phone] Regulo Ivy, ALONSO [address] [address] Brigette East LPN 04/15/2025 4:30 PM EST PACE Home Care / [facility] Home Visit [facility] [place] [facility] [address] [place] [address] Ashley Eastman 04/16/2025 8:30 AM EST PACE Home Care / P[facility] Home Visit [facility] [place] [facility] [address] [place] [address] Carmen Hartmann 04/16/2025 4:30 PM EST PACE Home Care / P[facility] Home Visit [facility] [place] [facility] [address] [place] [address] Ashley Eastman 04/17/2025 8:30 AM EST PACE Home Care / [facility] Home Visit [facility] [place] [facility] [address] [place] [phone] Carmen Hartmann 04/17/2025 9:00 AM EST [facility]ACE Attend[facility] [place] [facility] [address] [place] [address] 04/17/2025 4:30 PM EST PACE Home Care / [facility] Home Visit [facility] [place] [facility] [address] [place] [phone] Ashley Eastman 04/18/2025 8:00 AM EST PACE Home Care / PACE Home Visit [facility] [place] [facility] [address] [place] [phone] Carmen Hartmann 04/18/2025 4:30 PM EST PACE Home Care / [facility] Home Visit [facility] [place] [facility] [address] [place] [phone] Ashley Eastman 04/19/2025 12:00 PM EST PACE Home Care / [facility] Home Visit [facility] [place] [facility] [address] [place] [phone] Dena Chavez 04/20/2025 12:00 PM EST PACE Home Care / P[facility] Home Visit [facility] [place] [facility] [address] [place] [phone] Dena Chavez 04/21/2025 8:30 AM EST PACE Home Care / [facility] Home Visit [facility] [place] [facility] [address] [place] [address] Carmen Hartmann 04/21/2025 4:30 PM EST PACE Home Care / PACE Home Visit [facility] [place] [facility] [address] [place] [address] Ashley Eastman 04/22/2025 8:30 AM EST PACE Home Care / [facility] Home Visit [facility] [place] [facility] [address] [place] [phone] Carmen Hartmnan 04/22/2025 4:30 PM EST PACE Home Care / PACE Home Visit [facility] [place] [facility] [address] [place] [phone] Ashley Eastman 04/23/2025 8:30 AM EST PACE Home Care / PACE Home Visit [facility] [place] [facility] [address] [place] [phone] Carmen Hartmann 04/23/2025 4:30 PM EST PACE Home Care / PACE Home Visit [facility] [place] [facility] [address] [place] [phone] Ashley Eastman 04/24/2025 8:30 AM EST PACE Home Care / PACE Home Visit [facility] [place] [facility] [address] [place] [phone] Carmen Hartmann 04/24/2025 9:00 AM EST [facility] Att[place] [facility] [place] [facility] [address] [place] [address] 04/24/2025 4:30 PM EST PACE Home Care / [facility] Home Visit [facility] [place] [facility] [address] [place] [phone] Ashley Eastman 04/25/2025 8:00 AM EST PACE Home Care / PACE Home Visit [facility] [place] [facility] [address] [place] [address] Carmen Hartmann 04/25/2025 9:30 AM EST PACE Home Care / PACE Home Visit [facility] [place] [facility] [address] [place] [address] Ralph Loyola 04/25/2025 4:30 PM EST PACE Home Care / PACE Home Visit [facility] [place] [facility] [address] [place] [phone] Ashley Eastman 04/26/2025 8:30 AM EST PACE Home Care / PACE Home Visit [facility] [place] [facility] [address] [place] [phone] Marysol Diaz 04/26/2025 12:00 PM EST PACE Home Care / PACE Home Visit [facility] [place] [facility] [address] [place] [phone] Natali Sanford 04/26/2025 5:30 PM EST PACE Home Care / PACE Home Visit [facility] [place] [facility] [address] [place] [phone] Marysol Diaz 04/27/2025 8:30 AM EST PACE Home Care / PACE Home Visit [facility] [place] [facility] [address] [place] [phone] Marysol Diaz 04/27/2025 12:00 PM EST PACE Home Care / PACE Home Visit [facility] [place] [facility] [address] [place] [phone] Natali Sanford 04/27/2025 4:30 PM EST PACE Home Care / PACE Home Visit [facility] [place] [facility] [address] [place] [phone] Marysol Diaz 04/27/2025 5:30 PM EST PACE Home Care / PACE Home Visit [facility] [place] [facility] [address] [place] [phone] Marysol Diaz 04/28/2025 8:30 AM EST PACE Home Care / PACE Home Visit [facility] [place] [facility] [address] [place] [phone] Carmen Hartmann 04/28/2025 4:30 PM EST PACE Home Care / PACE Home Visit [facility] [place] [facility] [address] [place] [phone] Ashley Eastman 04/29/2025 8:30 AM EST PACE Home Care / PACE Home Visit [facility] [place] [facility] [address] [place] [phone] Carmen Hartmann 04/29/2025 4:30 PM EST PACE Home Care / PACE Home Visit [facility] [place] [facility] [address] [place] [phone] Ashley Eastman 04/30/2025 8:30 AM EST PACE Home Care / PACE Home Visit [facility] [place] [facility] [address] [place] [phone] Carmen Hartmann 04/30/2025 4:30 PM EST PACE Home Care / PACE Home Visit [facility] [place] [facility] [address] [place] [phone] Ashley Eastman 05/01/2025 8:30 AM EST PACE Home Care / PACE Home Visit [facility] [place] [facility] [address] [place] [phone] Carmen Hartmann 05/01/2025 9:00 AM EST [facility] Att[place] [facility] [place] [facility] [address] [place] [phone] 05/01/2025 11:30 AM EST Clinical Support [facility] [place] [address] [place] [address] 05/01/2025 4:30 PM EST PACE Home Care / PACE [facility] Visit [facility] [place] [facility] [address] [place] [address] Ashley Eastman 05/02/2025 8:00 AM EST PACE Home Care / PACE Home Visit [facility] [place] [facility] [address] [place] [phone] Carmen Hartmann 05/02/2025 9:30 AM EST PACE Home Care / PACE Home Visit [facility] [place] [facility] [address] [place] [phone] Ralph Loyola 05/02/2025 4:30 PM EST PACE Home Care / PACE Home Visit [facility] [place] [facility] [address] [place] [phone] Ashley Eastman 05/03/2025 12:00 PM EST PACE Home Care / PACE Home Visit [facility] [place] [facility] [address] [place] [phone] Dena Chavez 05/04/2025 12:00 PM EST PACE Home Care / PACE Home Visit [facility] [place] [facility] [address] [place] [phone] Dena Chavez 05/05/2025 8:30 AM EST PACE Home Care / PACE Home Visit [facility] [place] [facility] [address] [place] [phone] Carmen Hartmann 05/05/2025 4:30 PM EST PACE Home Care / [facility] Home Visit [facility] [place] [facility] [address] [place] [phone] Ashley Eastman 05/06/2025 8:30 AM EST PACE Home Care / [facility] Visit [facility] [place] [facility] [address] [place] [phone] Carmen Hartmann 05/06/2025 4:30 PM EST PACE Home Care / P[facility] Home Visit [facility] [place] [facility] [address] [place] [address] Ashley Eastman 05/07/2025 8:30 AM EST PACE Home Care / P[facility] Home Visit [facility] [place] [facility] [address] [place] [address] Carmen Hartmann 05/07/2025 4:30 PM EST PACE Home Care / [facility] Home Visit [facility] [place] [facility] [address] [place] [address] Ashley Eastman 05/08/2025 8:30 AM EST PACE Home Care / [facility] Home Visit [facility] [place] [facility] [address] [place] [address] Carmen Hartmann 05/08/2025 9:00 AM EST [facility] [place] [facility] [address] [place] [address] 05/08/2025 4:30 PM EST PACE Home Care / [facility] Visit [facility] [place] [facility] [address] [place] [address] Ashley Eastman 05/09/2025 8:00 AM EST PACE Home Care / [facility] Home Visit [facility] [place] [facility] [address] [place] [address] Carmen Hartmann 05/09/2025 9:30 AM EST PACE Home Care / [facility] Visit [facility] [place] [facility] [address] [place] [address] Ralph Loyola 05/09/2025 4:30 PM EST PACE Home Care / [facility] Home Visit [facility] [place] [facility] [address] [place] [address] Ashley Eastman 05/10/2025 8:30 AM EST PACE Home Care / [facility] Home Visit [facility] [place] [facility] [address] [place] [phone] Marysol Diaz 05/10/2025 12:00 PM EST PACE Home Care / [facility] Visit [facility] [place] [facility] [address] [place] [phone] Natali Sanford 05/10/2025 5:30 PM EST PACE Home Care / [facility] Visit [facility] [place] [facility] [address] [place] [phone] Marysol Diaz 05/11/2025 8:30 AM EST PACE Home Care / [facility] Visit [facility] [place] [facility] [address] [place] [phone] Marysol Diaz 05/11/2025 12:00 PM EST PACE Home Care / [facility] Visit [facility] [place] [facility] [address] [place] [phone] Natali Sanford 05/11/2025 4:30 PM EST PACE Home Care / [facility] Visit [facility] [place] [facility] [address] [place] [phone] Marysol Diaz 05/11/2025 5:30 PM EST PACE Home Care / [facility] Visit [facility] [place] [facility] [address] [place] [phone] Marysol Diaz 05/12/2025 8:30 AM EST PACE Home Care / [facility] Visit [facility] [place] [facility] [address] [place] [phone] Carmen Hartmann 05/12/2025 4:30 PM EST PACE Home Care / [facility] Visit [facility] [place] [facility] [address] [place] [phone] Ashley Eastman 05/13/2025 8:30 AM EST PACE Home Care / [facility] Visit [facility] [address] [place] [phone] Carmen Hartmann 05/13/2025 11:00 AM EST [facility] Visit [facility] [place] [facility] [address] [place] [phone] Regulo Ivy, ALONSO [address] [address] Brigette East LPN 05/13/2025 4:30 PM EST PACE Home Care / PACE Home Visit [facility] [address] [place] [phone] Ashley Eastman 05/14/2025 8:30 AM EST PACE Home Care / [facility] Visit [facility] [address] [place] [phone] Carmen Hartmann 05/14/2025 4:30 PM EST PACE Home Care / [facility] Visit [facility] [place] [facility] [address] [place] [phone] Ashley Eastman 05/15/2025 8:30 AM EST PACE Home Care / PACE [facility] Visit [facility] [place] [facility] [address] [place] [phone] Carmen Hartmann 05/15/2025 9:00 AM EST [facility] Att[facility] [place] [facility] [address] [place] [phone] 05/15/2025 4:30 PM EST PACE Home Care / [facility] Visit [facility] [place] [facility] [address] [place] [phone] Ashley Eastman 05/16/2025 8:00 AM EST PACE Home Care / [facility] Visit [facility] [place] [facility] [address] [place] [address] Carmen Hartmann 05/16/2025 9:30 AM EST PACE Home Care / [facility] Visit [facility] [place] [facility] [address] [place] [phone] Ralph Loyola 05/16/2025 4:30 PM EST PACE Home Care / [facility] Visit [facility] [place] [facility] [address] [place] [phone] Ashley Eastman 05/17/2025 12:00 PM EST PACE Home Care / [facility] [place] [facility] [address] [place] [phone] Dena Chavez 05/18/2025 12:00 PM EST PACE Home Care / [facility] Visit [facility] [place] [facility] [address] [place] [phone] Dena Chavez 05/19/2025 8:30 AM EST PACE Home Care / [facility] [place] [facility] [address] [place] [phone] Carmen Hartmann 05/19/2025 4:30 PM EST PACE Home Care / [facility] [place] [facility] [address] [place] [phone] Ashley Eastman 05/20/2025 8:30 AM EST PACE Home Care / [facility] [place] [facility] [address] [place] [phone] Carmen Hartmann 05/20/2025 4:30 PM EST PACE Home Care / [facility] [place] [facility] [address] [place] [phone] Ashley Eastman 05/21/2025 8:30 AM EST PACE Home Care / [facility] [place] [facility] [address] [place] [address] Carmen Hartmann 05/21/2025 4:30 PM EST PACE Home Care / [facility] [place] [facility] [address] [place] [address] Ashley Eastman 05/22/2025 8:30 AM EST PACE Home Care / [facility] [place] [facility] [address] [place] [address] Carmen Hartmann 05/22/2025 9:00 AM EST [facility] [facility] [place] [facility] [address] [place] [address] 05/22/2025 4:30 PM EST PACE Home Care / [facility] [place] [facility] [address] [place] [address] Ashley Eastman 05/23/2025 8:00 AM EST PACE Home Care / [facility] [place] [facility] [address] [place] [phone] Carmen Hartmann 05/23/2025 9:30 AM EST PACE Home Care / [facility] [place] [facility] [address] [place] [address] Ralph Loyola 05/23/2025 4:30 PM EST PACE Home Care / [facility] [place] [facility] [address] [place] [address] Ashley Eastman 05/24/2025 8:30 AM EST PACE Home Care / [facility] [place] [facility] [address] [place] [phone] Marysol Diaz 05/24/2025 12:00 PM EST PACE Home Care / [facility] [place] [facility] [address] [place] [address] Natali Sanford 05/24/2025 5:30 PM EST PACE Home Care / [facility] [place] [facility] [address] [place] [address] Marysol Diaz 05/25/2025 8:30 AM EST PACE Home Care / [facility] [place] [facility] [address] [place] [phone] Marysol Diaz 05/25/2025 12:00 PM EST PACE Home Care / [facility] [place] [facility] [address] [place] [phone] Natali Sanford 05/25/2025 4:30 PM EST PACE Home Care / [facility] [place] [facility] [address] [place] [address] Marysol Diaz 05/25/2025 5:30 PM EST PACE Home Care / [facility] [place] [facility] [address] [place] [phone] Marysol Diaz 05/26/2025 8:30 AM EST PACE Home Care / [facility] [place] [facility] [address] [place] [phone] Carmen Hartmann 05/26/2025 4:30 PM EST PACE Home Care / [facility] [place] [facility] [address] [place] [phone] Ashley Eastman 05/27/2025 8:30 AM EST PACE Home Care / [facility] [place] [facility] [address] [place] [phone] Carmen Hartmann 05/27/2025 4:30 PM EST PACE Home Care / [facility] [place] [facility] [address] [place] [address] Ashley Eastman 05/28/2025 8:30 AM EST PACE Home Care / [facility] [address] [place] [address] Carmen Hartmann 05/28/2025 4:30 PM EST PACE Home Care / [facility] [address] [place] [address] Ashley Eastman 05/29/2025 8:30 AM EST PACE Home Care / [facility] [address] [place] [address] Carmen Hartmann 05/29/2025 9:00 AM EST [facility] Attend[facility] [place] [facility] [address] [place] [phone] 05/29/2025 4:30 PM EST PACE Home Care / [facility] [address] [place] [phone] Ashley Eastman 05/30/2025 8:00 AM EST PACE Home Care / [facility] [place] [facility] [address] [place] [phone] Carmen Hartmann 05/30/2025 9:30 AM EST PACE Home Care / [facility] [place] [facility] [address] [place] [phone] Ralph Loyola 05/30/2025 4:30 PM EST PACE Home Care / [facility] [place] [facility] [address] [place] [phone] Ashley Eastman 06/05/2025 9:00 AM EST [facility] Att[facility] [place] [facility] [address] [place] [address] 06/10/2025 11:00 AM EST Office Visit [facility] [address] [place] [phone] Michelle Castillo MD [address] [address] Brigette East LPN 06/12/2025 9:00 AM EST PACE Attendance/Day Center [facility] [address] [place] [phone] 06/19/2025 9:00 AM EST PACE Attendance/Day Center [facility] PACE Day [address] [address] 06/26/2025 9:00 AM EDT PACE Attendance/Day Center [facility] [address] [place] [phone] 06/27/2025 1:20 PM EDT Office Visit Gastroenterology - [address] [address] Analisa Perez, ALONSO [address] [facility] [address] [address] 07/03/2025 9:00 AM EDT [facility] Att[facility]ance[facility] [facility] [address] [place] [id number] 07/10/2025 9:00 AM EDT PACE Attendance/Day Center [facility] [address] [place] [phone] 07/17/2025 9:00 AM EDT PACE Attendance/Day Center [facility] Day [address] [phone] 07/17/2025 3:30 PM EDT PACE External Visit [address] [phone] 07/24/2025 9:00 AM EDT [facility] Attendance/[facility] [place] [facility] [address] [place] [address] 07/31/2025 9:00 AM EDT [facility] Attendance/[facility] [place] [facility] [address] [place] [phone] 08/07/2025 9:00 AM EDT [facility] Attendance/[facility] [place] [facility] [address] [place] [address] 08/14/2025 9:00 AM EDT [facility] Attendance/[facility] [place] [facility] [address] [place] [phone] 08/21/2025 9:00 AM EDT [facility] Attendance/[facility] [place] [facility] [address] [place] [phone] 08/28/2025 9:00 AM EDT [facility] Attendance[facility] [place] [facility] [address] [place] [phone] 09/04/2025 9:00 AM EDT [facility] Attendance/[facility] [place] [facility] [address] [place] [phone] 09/11/2025 9:00 AM EDT [facility] Attendance[facility] [place] [facility] [address] [place] [phone] 09/18/2025 9:00 AM EDT [facility] Attendance[facility] [place] [facility] [address] [place] [phone] 09/25/2025 9:00 AM EDT [facility] Attendance[facility] [place] [facility] [address] [place] [phone] 10/02/2025 9:00 AM EDT [facility] Attendance[facility] [place] [facility] [address] [place] [phone] 10/09/2025 9:00 AM EDT PACE Attendance/Day Center [facility] [address] [place] [phone] documented as of this encounter Visit Diagnoses Not on filedocumented in this encounter Additional Health Concerns Infection Onset Date Last Indicated Resolved Time Gastrointestinal Rule-Out 02/10/2025 02/10/2025 7:04 PM EST documented as of this encounter Care Teams Fire Protection Specialist Relationship Specialty Start Date End Date Regulo Ivy NP [address] [place] [id number] PCP - General KELLI 06/07/24 documented as of this encounter
--- OUTSIDE RECORDS SUMMARY | 2025-04-01 17:10 | XMS_ITS ---
Author Organization [facility] Address [address] [place] [address] Phone Care Team Providers Care Behavioral Sciences Department Chair Name Role Phone Regulo Ivy NP Primary Care Provider [phone] Program of All-Inclusive Care for the Elderly Status:Enrolled (Active) Start date:10/15/2022 Enrollment date:10/15/2022 Related social drivers of health:Housing Instability, Financial Risk, Transportation, Social Isolation, Food Risk Related service episodes:[facility] (Active) Overview This episode will track PACE documentation. Case Team Name Relationship Phone Regulo Ivy LIEUTENANT/DEPUTY Nurse Practitioner [phone] Thanh Espinoza Recreational Therapist 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 RN Geodesy Teacher Celsa Perez RN Geodesy Teacher Kay Grijalva HOSPITAL EDUCATOR Ore Crusher Sanjeev Fung OT Occupational Therapist Donta Mccabe RN Registered Nurse Melvi Early RD Dietitian Rosaura Mauro PT Physical Therapist Obed Solorzano LUNG PULLER Administrative Liaison Maddie Hanks cement or concrete finishing supervisorGeodesy Teacher Bernie Segovia RN Registered Nurse Shantal Jimenez Administrative Liaison [facility] Administrative Liaison Mynor [facility] Alexandra Kumari PT Physical Therapist Clemencia Napier OT Occupational Therapist Eva Baxter SCHOOL GUIDANCE COUNSELOR Administrative Liaison Chava Singh PT Physical Therapist Michelle Castillo MD Primary Care Provider Continued Care and Services Coordination
--- OUTSIDE RECORDS SUMMARY | 2025-04-01 17:10 | XMS_ITS ---
Author Organization [facility] Address [address] [place] [address] Phone Care Team Providers Care Venetian Blind Worker Name Role Phone Regulo Ivy NP Primary Care Provider [phone] [facility] Status:Enrolled (Active) Start date:06/15/2024 Related program episode:Program of All-Inclusive Care for the Elderly (Active) Case Team Name Relationship Phone Juliet Scott ASSISTANT SALES DIRECTOR(Responsible Staff) Nurse Frank titioner [phone] Continued Care and Services Coordination
--- OUTSIDE RECORDS SUMMARY | 2025-04-01 17:10 | XMS_ITS | Encounter Summary ---
Author Organization [facility] Address [address] [place] [address] Care Team Providers Care Supply Manager Name Role Phone Regulo Ivy NP Primary Care Provider [phone] Reason for Visit * Reason Onset Date [...] st Contact Info) Description 08/25/2024 PACE On-Call [facility] [address] [place] [address] Regulo Ivy NP [address] [facility] [address] [place], [place] [id number] Social History Tobacco Use Types Packs/Day Years [...] 1:11 PM EDT Goyo Sanders, RN * [place] Suicide Severity Rating Scale (Screener/Recent Self-Report) Question Answer Date of Assessment Author 1. Wish to be (Past 1 Month) No 025 1:11 PM EDT Goyo Sanders, RN 2. Non-Specific Active Suici sage Thoughts (Past 1 Month) No 08/25/2024 1:11 PM EDT Goyo Sanders, RN 6. Suicidal Behavior (Lifetime) No 1:11 PM EDT Goyo Sanders, RN documented as of this encounter Plan of Treatment Upcoming Encounters Date Type Department Care Team (Late st Contact Info) Description 04/02/2025 8:30 AM EST PACE Home Care / [facility] [address] [place] [phone] Carmen Hartmann 04/02/2025 4:30 PM EST PACE Home Care / P[facility] Home Visit [facility] [place] [facility] [address] [place] [phone] Ashley Eastman 04/03/2025 8:30 AM EST PACE Home Care / P[facility] Home Visit [facility] [address] [place] [phone] Carmen Hartmann 04/03/2025 9:00 AM EST PACE Attendance[facility] [place] [facility] [address] [place] [phone] 04/03/2025 4:30 PM EST PACE Home Care / [facility] [address] [place] [address] Ashley Easmtan 04/04/2025 [facility] [place] [facility] [address] [place] [address] Regulo Ivy, ALONSO [address] [address] Constipation, unspecified constipation type 04/04/2025 8:00 AM EST PACE Home Care / [facility] [place] [facility] [address] [place] [phone] Titi Thomas 04/04/2025 8:30 AM EST PACE Home Care / [facility] [place] [facility] [address] [place] [phone] Marysol Diaz 04/04/2025 4:30 PM EST PACE Home Care / [facility] [place] [facility] [address] [place] [phone] Ashley Eastman 04/05/2025 12:00 PM EST PACE Home Care / [facility] [place] [facility] [address] [place] [phone] Dena Chavez 04/06/2025 12:00 PM EST PACE Home Care / [facility] [place] [facility] [address] [place] [phone] eDna Chavez 2025 8:30 AM EST PACE Home Care / [facility] [address] [place] [phone] Carmen Hartmann 2025 4:30 PM EST PACE Home Care / [facility] [place] [facility] [address] [place] [phone] Ashley Eastman 04/08/2025 8:30 AM EST PACE Home Care / [facility] [place] [facility] [address] [place] [address] Carmen Hartmann 04/08/2025 4:30 PM EST PACE Home Care / [facility] [place] [facility] [address] [place] [address] Ashley Eastman 04/09/2025 8:30 AM EST PACE Home Care / [facility] [place] [facility] [address] [place] [address] Carmen Hartmann 04/09/2025 4:30 PM EST PACE Home Care / [facility] [place] [facility] [address] [place] [phone] Ashley Eastman 04/10/2025 6:05 AM EST PACE Home Care / [facility] [place] [facility] [address] [place] [phone] Jackeline Mcrae 04/10/2025 9:00 AM EST [facility] [facility] [place] [facility] [address] [place] [address] 04/10/2025 4:30 PM EST PACE Home Care / [facility] [place] [facility] [address] [place] [phone] Ashley Eastman 04/11/2025 8:00 AM EST PACE Home Care / [facility] [place] [facility] [address] [place] [phone] Carmen Hartmann 04/11/2025 9:30 AM EST PACE Home Care / [facility] [facility] [place] [facility] [address] [place] [phone] Carmen Hartmann 04/11/2025 4:30 PM EST PACE Home Care / [place] [facility] [place] [facility] [address] [place] [address] Ashley Eastman 04/12/2025 8:30 AM EST PACE Home Care / [place] [facility] [address] [place] [phone] Joe Marysol 04/12/2025 12:00 PM EST PACE Home Care / [facility] [facility] [address] [place] [phone] Natali Sanford 04/12/2025 5:30 PM EST PACE Home Care / [place] [facility] [place] [facility] [address] [place] [phone] [facility] 04/13/2025 8:30 AM EST P[facility] Home Care / [facility] [place] [facility] [address] [place] [phone] [facility] 04/13/2025 12:00 PM EST PACE Home Care / [place] [facility] [place] [facility] [address] [place] [phone] Natali Sanford 04/13/2025 4:30 PM EST PACE Home Care / [place] [facility] [place] [facility] [address] [place] [phone] [facility] 04/13/2025 5:30 PM EST PACE Home Care / [place] [facility] [place] [facility] [address] [place] [phone] [facility] 04/14/2025 8:30 AM EST PACE Home Care / [place] [facility] [place] [facility] [address] [place] [phone] Carmen Hartmann 04/14/2025 4:30 PM EST PACE Home Care / [facility] Visit [facility] [place] [facility] [address] [place] [address] Ashley Eastman 04/15/2025 8:30 AM EST PACE Home Care / [facility] Visit [facility] [place] [facility] [address] [place] [address] Carmen Hartmann 04/15/2025 11:00 AM EST Office Visit [facility] [place] [facility] [address] [place] [address] Regulo Ivy, ALONSO [address] [address] Brigette East LPN 04/15/2025 4:30 PM EST PACE Home Care / [facility] [facility] Visit [facility] [place] [facility] [address] [place] [address] Ashley Eastman 04/16/2025 8:30 AM EST PACE Home Care / [place] [facility] Visit [facility] [place] [facility] [address] [place] [address] Carmen Hartmann 04/16/2025 4:30 PM EST PACE Home Care / [facility] [address] [place] [address] Ashley Eastman 04/17/2025 8:30 AM EST PACE Home Care / [facility] Visit [facility] [place] [facility] [address] [place] [address] Carmen Hartmann 04/17/2025 9:00 AM EST [facility] Att[place] [facility] [place] [facility] [address] [place] [address] 04/17/2025 4:30 PM EST PACE Home Care / [facility] [place] [facility] [address] [place] [address] Ashley Eastman 04/18/2025 8:00 AM EST PACE Home Care / [facility] [place] [facility] [address] [place] [address] Carmen Hartmann 04/18/2025 4:30 PM EST PACE Home Care / [facility] [address] [place] [address] Ashley Eastman 04/19/2025 12:00 PM EST PACE Home Care / [facility] [address] [place] [phone] Dena Chavez 04/20/2025 12:00 PM EST PACE Home Care / [place] [facility] [place] [facility] [address] [place] [phone] Dena Chavez 04/21/2025 8:30 AM EST PACE Home Care / [place] [facility] [place] [facility] [address] [place] [phone] Carmen Hartmann 04/21/2025 4:30 PM EST PACE Home Care / [place] [facility] Visit [facility] [address] [place] [phone] Ashley Eastman 04/22/2025 8:30 AM EST PACE Home Care / [place] [facility] Visit [facility] [address] [place] [phone] Carmen Hartmann 04/22/2025 4:30 PM EST PACE Home Care / [facility] [address] [place] [phone] Ashley Eastman 04/23/2025 8:30 AM EST PACE Home Care / [facility] Visit [facility] [address] [place] [address] Carmen Hartmann 04/23/2025 4:30 PM EST PACE Home Care / [facility] Visit [facility] [place] [facility] [address] [place] [address] Ashley Eastman 04/24/2025 8:30 AM EST PACE Home Care / [facility] [address] [place] [address] Carmen Hartmann 04/24/2025 9:00 AM EST PACE Attend[facility] [place] [facility] [address] [place] [address] 04/24/2025 4:30 PM EST PACE Home Care / [facility] [place] [facility] [address] [place] [phone] Ashley Eastman 04/25/2025 8:00 AM EST PACE Home Care / [facility] [place] [facility] [address] [place] [phone] Carmen Hartmann 04/25/2025 9:30 AM EST PACE Home Care / [facility] [address] [place] [phone] Ralph Loyola 04/25/2025 4:30 PM EST PACE Home Care / [facility] Visit [facility] [address] [place] [address] Ashley Eastman 04/26/2025 8:30 AM EST PACE Home Care / [facility] Visit [facility] [address] [place] [phone] Marysol Diaz 04/26/2025 12:00 PM EST PACE Home Care / [facility] [address] [place] [phone] Natali Sanford 04/26/2025 5:30 PM EST PACE Home Care / [facility] [address] [place] [phone] Marysol Diaz 04/27/2025 8:30 AM EST PACE Home Care / [facility] [address] [place] [phone] Marysol Diaz 04/27/2025 12:00 PM EST PACE Home Care / [facility] [address] [place] [phone] Natali Sanford 04/27/2025 4:30 PM EST PACE Home Care / [facility] [address] [place] [phone] Marysol Diaz 04/27/2025 5:30 PM EST PACE Home Care / [facility] [address] [place] [phone] Marysol Diaz 04/28/2025 8:30 AM EST PACE Home Care / [facility] [address] [place] [phone] Carmen Hartmann 04/28/2025 4:30 PM EST PACE Home Care / [facility] [address] [place] [phone] Ashley Eastman 04/29/2025 8:30 AM EST PACE Home Care / [facility] [place] [facility] [address] [place] [phone] Carmen Hartmann 04/29/2025 4:30 PM EST PACE Home Care / [facility] Visit [facility] [place] [facility] [address] [place] [phone] Ashley Eastman 04/30/2025 8:30 AM EST PACE Home Care / P[facility] Visit [facility] [address] [place] [address] Carmen Hartmann 04/30/2025 4:30 PM EST PACE Home Care / PACE [facility] Visit [facility] [place] [facility] [address] [place] [address] Ashley Eastman 05/01/2025 8:30 AM EST PACE Home Care / P[facility] Visit [facility] [address] [place] [address] Carmen Hartmann 05/01/2025 9:00 AM EST [facility]ACE Attendance[facility] [place] [facility] [address] [place] [address] 05/01/2025 11:30 AM EST Clinical Support [facility] [place] [address] [place] [address] 05/01/2025 4:30 PM EST PACE Home Care / PACE [facility] Visit [facility] [address] [place] [address] Ashley Eastman 05/02/2025 8:00 AM EST PACE Home Care / PACE [facility] Visit [facility] [address] [place] [address] Carmen Hartmann 05/02/2025 9:30 AM EST PACE Home Care / P[facility] Visit [facility] [address] [place] [address] Ralph Loyola 05/02/2025 4:30 PM EST PACE Home Care / PACE Home Visit [facility] [address] [place] [phone] Ashley Eastman 05/03/2025 12:00 PM EST PACE Home Care / [facility] [address] [place] [phone] Dena Chavez 05/04/2025 12:00 PM EST PACE Home Care / [facility] [place] [facility] [address] [place] [phone] Dena Chavez 05/05/2025 8:30 AM EST PACE Home Care / [facility] [place] [facility] [address] [place] [phone] Carmen Hartmann 05/05/2025 4:30 PM EST PACE Home Care / [facility] [address] [place] [phone] Ashley Eastman 05/06/2025 8:30 AM EST PACE Home Care / [facility] [address] [place] [phone] Carmen Hartmann 05/06/2025 4:30 PM EST PACE Home Care / [facility] [address] [place] [phone] Ashley Eastman 05/07/2025 8:30 AM EST PACE Home Care / [facility] [address] [place] [phone] Carmen Hartmann 05/07/2025 4:30 PM EST PACE Home Care / [facility] [address] [place] [phone] Ashley Eastman 05/08/2025 8:30 AM EST PACE Home Care / [facility] [address] [place] [phone] Carmen Hartmann 05/08/2025 9:00 AM EST [facility] [place] [facility] [address] [place] [address] 05/08/2025 4:30 PM EST PACE Home Care / [facility] [address] [place] [address] Ashley Eastman 05/09/2025 8:00 AM EST PACE Home Care / [facility] [address] [place] [address] Carmen Hartmann 05/09/2025 9:30 AM EST PACE Home Care / [facility] [address] [place] [address] Ralph Loyola 05/09/2025 4:30 PM EST PACE Home Care / [facility] [address] [place] [address] Ashley Eastman 05/10/2025 8:30 AM EST PACE Home Care / [facility] [address] [place] [phone] Marysol Diaz 05/10/2025 12:00 PM EST PACE Home Care / [facility] [address] [place] [phone] Natali Sanford 05/10/2025 5:30 PM EST PACE Home Care / [facility] [address] [place] [phone] Marysol Diaz 05/11/2025 8:30 AM EST PACE Home Care / [facility] [address] [place] [phone] Marysol Diaz 05/11/2025 12:00 PM EST PACE Home Care / [facility] [address] [place] [address] Natali Sanford 05/11/2025 4:30 PM EST PACE Home Care / [facility] [address] [place] [address] Marysol Diaz 05/11/2025 5:30 PM EST PACE Home Care / [facility] [place] [facility] [address] [place] [phone] Marysol Diaz 05/12/2025 8:30 AM EST PACE Home Care / [facility] [place] [facility] [address] [place] [phone] Carmen Hartmann 05/12/2025 4:30 PM EST PACE Home Care / [facility] [place] [facility] [address] [place] [phone] Ashley Eastman 05/13/2025 8:30 AM EST PACE Home Care / [facility] [place] [facility] [address] [place] [phone] Carmen Hartmann 05/13/2025 11:00 AM EST [facility] [place] [facility] [address] [place] [phone] Regulo Ivy, ALONSO [address] [place] [address] Brigette East LPN 05/13/2025 4:30 PM EST PACE Home Care / [facility] [address] [place] [phone] Ashley Eastman 05/14/2025 8:30 AM EST PACE Home Care / [facility] [place] [facility] [address] [place] [phone] Carmen Hartmann 05/14/2025 4:30 PM EST PACE Home Care / [facility] [address] [place] [phone] Ashley Eastman 05/15/2025 8:30 AM EST PACE Home Care / [facility] [address] [place] [phone] Carmen Hartmann 05/15/2025 9:00 AM EST [facility] [facility] [place] [facility] [address] [place] [address] 05/15/2025 4:30 PM EST PACE Home Care / [facility] [address] [place] [phone] Ashley Eastman 05/16/2025 8:00 AM EST PACE Home Care / [facility] [address] [place] [phone] Carmen Hartmann 05/16/2025 9:30 AM EST PACE Home Care / [facility] [address] [place] [phone] Ralph Loyola 05/16/2025 4:30 PM EST PACE Home Care / [facility] [address] [place] [phone] Ashley Eastman 05/17/2025 12:00 PM EST PACE Home Care / [facility] [address] [place] [phone] Dena Chavez 05/18/2025 12:00 PM EST PACE Home Care / [facility] [address] [place] [phone] Dena Chavez 05/19/2025 8:30 AM EST PACE Home Care / [facility] [address] [place] [phone] Carmen Hartmann 05/19/2025 4:30 PM EST PACE Home Care / [facility] [address] [place] [phone] Ashley Eastman 05/20/2025 8:30 AM EST PACE Home Care / [facility] [address] [place] [phone] Carmen Hartmann 05/20/2025 4:30 PM EST PACE Home Care / [facility] [address] [place] [phone] Ashley Eastman 05/21/2025 8:30 AM EST P[facility] Home Care / [facility] [address] [place] [phone] Carmen Hartmann 05/21/2025 4:30 PM EST PACE Home Care / [facility] [place] [facility] [address] [place] [phone] Ashley Eastman 05/22/2025 8:30 AM EST PACE Home Care / [facility] [address] [place] [phone] Carmen Hartmann 05/22/2025 9:00 AM EST [facility] [facility] [place] [facility] [address] [place] [address] 05/22/2025 4:30 PM EST PACE Home Care / [facility] [address] [place] [phone] Ashley Eastman 05/23/2025 8:00 AM EST PACE Home Care / [facility] [address] [place] [address] Carmen Hartmann 05/23/2025 9:30 AM EST PACE Home Care / [facility] [address] [place] [address] Ralph Loyola 05/23/2025 4:30 PM EST PACE Home Care / [facility] [address] [place] [address] Ashley Eastman 05/24/2025 8:30 AM EST PACE Home Care / [facility] [address] [place] [phone] Marysol Diaz 05/24/2025 12:00 PM EST PACE Home Care / [facility] [address] [place] [phone] Natali Sanford 05/24/2025 5:30 PM EST PACE Home Care / [facility] [address] [place] [phone] Marysol Diaz 05/25/2025 8:30 AM EST P[facility] Home Care / [facility] [address] [place] [phone] Marysol Diaz 05/25/2025 12:00 PM EST P[facility] Home Care / [facility] [address] [place] [phone] Natali Sanford 05/25/2025 4:30 PM EST PACE Home Care / [facility] [address] [place] [phone] Marysol Diaz 05/25/2025 5:30 PM EST PACE Home Care / [facility] [address] [place] [address] Marysol Diaz 05/26/2025 8:30 AM EST P[facility] Home Care / [facility] [address] [place] [address] Carmen Hartmann 05/26/2025 4:30 PM EST PACE Home Care / [facility] [address] [place] [address] Ashley Eastman 05/27/2025 8:30 AM EST P[facility] Home Care / [facility] [address] [place] [phone] Carmen Hartmann 05/27/2025 4:30 PM EST PACE Home Care / [facility] [address] [place] [phone] Ashley Eastman 05/28/2025 8:30 AM EST PACE Home Care / [facility] [place] [facility] [address] [place] [phone] Carmen Hartmann 05/28/2025 4:30 PM EST PACE Home Care / [facility] [address] [place] [phone] Ashley Eastman 05/29/2025 8:30 AM EST P[facility] Home Care / [facility] [address] [place] [phone] Carmen Hartmann 05/29/2025 9:00 AM EST [facility] Att[facility] [facility] [place] [facility] [address] [place] [address] 05/29/2025 4:30 PM EST P[facility] Home Care / [facility] [address] [place] [address] Ashley Eastman 05/30/2025 8:00 AM EST PACE Home Care / [facility] [address] [place] [phone] Carmen Hartmann 05/30/2025 9:30 AM EST P[facility] Home Care / [facility] [address] [place] [phone] Ralph Loyola 05/30/2025 4:30 PM EST PACE Home Care / [facility] [address] [place] [phone] Ashley Eastman 06/05/2025 9:00 AM EST PACE Attendance/[facility] [address] [place] [address] [phone] 06/10/2025 11:00 AM EST Office Visit [facility] [address] [place] [phone] Michelle Castillo MD [address] [place] [phone] Brigette East LPN 06/12/2025 9:00 AM EST PACE Attendance/[facility] [address] [place] [phone] 06/19/2025 9:00 AM EST PACE Attendance/[facility] [address] [place] [phone] 06/26/2025 9:00 AM EDT PACE Attendance/Day [facility] [address] [place] [phone] 06/27/2025 1:20 PM EDT Office Visit Gastroenterology - [address] [facility] [address] [place] [phone] Analisa Perez, ALONSO [address] [facility] [address] [place] [address] 07/03/2025 9:00 AM EDT PACE Attendance[facility] [address] [place] [phone] 07/10/2025 9:00 AM EDT PACE Attendance/[facility] [address] [place] [phone] 07/17/2025 9:00 AM EDT PACE Attendance/[facility] [address] [place] [phone] 07/17/2025 3:30 PM EDT PACE External Visit [facility] [address] [phone] 07/24/2025 9:00 AM EDT PACE Attendance/[facility] [address] [place] [phone] 07/31/2025 9:00 AM EDT PACE Attendance/[facility] [address] [place] [phone] 08/07/2025 9:00 AM EDT PACE Attendance/Day Center [facility] [address] [place] [phone] 08/14/2025 9:00 AM EDT PACE Attendance/[facility] [address] [place] [phone] 08/21/2025 9:00 AM EDT PACE Attendance/[facility] [address] [place] [phone] 08/28/2025 9:00 AM EDT PACE Attendance[facility] [address] [place] [phone] 09/04/2025 9:00 AM EDT PACE Attendance[facility] [address] [place] [phone] 09/11/2025 9:00 AM EDT PACE Attendance/Day Center [facility] [address] [place] [phone] 09/18/2025 9:00 AM EDT PACE Attendance[facility] [address] [place] [phone] 09/25/2025 9:00 AM EDT PACE Attendance[facility] [address] [place] [phone] 10/02/2025 9:00 AM EDT PACE Attendance[facility] [address] [place] [phone] 10/09/2025 9:00 AM EDT [facility] Attendance[facility] [address] [place] [phone] documented as of this encounter Visit Diagnoses Not on filedocumented in this encounter Additional Health Concerns Infection Onset Date Last Indicated Resolved Time Gastrointestinal Rule-Out 02/10/2025 02/10/2025 7:04 PM EST documented as of this encounter Care Teams Supply Manager Relationship Specialty Start Date End Date Regulo Ivy NP [address] [place] [phone] PCP - General PACE 06/07/24 documented as of this encounter
--- OUTSIDE RECORDS SUMMARY | 2025-04-01 17:10 | XMS_ITS | Encounter Summary ---
Author Organization [facility] Address [address] [place] [address] Care Team Providers Care Panel Raiser Operator Name Role Phone Regulo Ivy NP Primary Care Provider [phone] Encounter Details Date Type Department Care Team (Late st Contact Info) Description 08/26/2024 [facility] [place] [facility] [address] [place] [phone] Jennie Dimas RN Social History Tobacco Use [...] In [facility] Aide Services [address] [place] [address] Carmen Hartmann 04/02/2025 4:30 PM EST PACE Home Care / [facility] [place] [facility] [address] [place] [address] Ashley Eastman 04/03/2025 8:30 AM EST PACE Home Care / [facility] Home Visit [facility] [place] [facility] [address] [place] [address] Carmen Hartmann 04/03/2025 9:00 AM EST [facility] Att[facility] [place] [facility] [address] [place] [address] 04/03/2025 4:30 PM EST PACE Home Care / [place] [facility] [place] [facility] [address] [place] [address] Ashley Eastman 04/04/2025 [facility] [place] [facility] [address] [place] [address] Regulo Ivy, ALONSO [address] [address] Constipation, unspecified constipation type 04/04/2025 8:00 AM EST PACE Home Care / [place] [facility] [place] [facility] [address] [place] [address] Titi Thomas 04/04/2025 8:30 AM EST PACE Home Care / [facility] Visit [facility] [place] [facility] [address] [place] [address] Marysol Diaz 04/04/2025 4:30 PM EST PACE Home Care / [place] [facility] [place] [facility] [address] [place] [address] Ashley Eastman 04/05/2025 12:00 PM EST PACE Home Care / [facility] Home Visit [facility] [place] [facility] [address] [place] [address] Dena Chavez 04/06/2025 12:00 PM EST PACE Home Care / [place] [facility] [place] [facility] [address] [place] [address] Dena Chavez 2025 8:30 AM EST PACE Home Care / [place] [facility] [place] [facility] [address] [place] [address] Carmen Hartmann 2025 4:30 PM EST PACE Home Care / [place] [facility] [place] [facility] [address] [place] [address] Ashley Eastman 04/08/2025 8:30 AM EST PACE Home Care / [place] [facility] [place] [facility] [address] [place] [address] Carmen Hartmann 04/08/2025 4:30 PM EST PACE Home Care / [place] Home Visit [facility] [place] [facility] [address] [place] [address] Ashley Eastman 04/09/2025 8:30 AM EST PACE Home Care / [place] [facility] [place] [facility] [address] [place] [address] Carmen Hartmann 04/09/2025 4:30 PM EST PACE Home Care / [place] [facility] [place] [facility] [address] [place] [address] Ashley Eastman 04/10/2025 6:05 AM EST PACE Home Care / [place] [facility] Visit [facility] [place] [facility] [address] [place] [address] Jackeline Mcrae 04/10/2025 9:00 AM EST [facility] [facility] [place] [facility] [address] [place] [address] 04/10/2025 4:30 PM EST PACE Home Care / [place] [facility] [place] [facility] [address] [place] [address] Ashley Eastman 04/11/2025 8:00 AM EST PACE Home Care / [place] [facility] [place] [facility] [address] [place] [address] Carmen Hartmann 04/11/2025 9:30 AM EST PACE Home Care / [place] [facility] [place] [facility] [address] [place] [phone] Carmen Hartmann 04/11/2025 4:30 PM EST PACE Home Care / [place] [facility] [place] [facility] [address] [place] [phone] Ashley Eastman 04/12/2025 8:30 AM EST PACE Home Care / [place] [facility] [place] [facility] [address] [place] [phone] Marysol Diaz 04/12/2025 12:00 PM EST PACE Home Care / [place] [facility] [place] [facility] [address] [place] [phone] Natali Sanford 04/12/2025 5:30 PM EST PACE Home Care / [place] [facility] Visit [facility] [place] [facility] [address] [place] [phone] Marysol Diaz 04/13/2025 8:30 AM EST PACE Home Care / [place] [facility] [place] [facility] [address] [place] [phone] Marysol Diaz 04/13/2025 12:00 PM EST PACE Home Care / [place] [facility] [place] [facility] [address] [place] [phone] Natali Sanford 04/13/2025 4:30 PM EST PACE Home Care / [place] [facility] Visit [facility] [place] [facility] [address] [place] [phone] Marysol Diaz 04/13/2025 5:30 PM EST PACE Home Care / [place] [facility] [place] [facility] [address] [place] [phone] Marysol Diaz 04/14/2025 8:30 AM EST PACE Home Care / [place] [facility] [place] [facility] [address] [place] [phone] Carmen Hartmann 04/14/2025 4:30 PM EST PACE Home Care / [place] [facility] [place] [facility] [address] [place] [phone] Ashley Eastman 04/15/2025 8:30 AM EST PACE Home Care / [place] [facility] [place] [facility] [address] [place] [phone] Carmen Hartmann 04/15/2025 11:00 AM EST [facility] [place] [facility] [address] [place] [phone] Regulo Iyv, ALONSO [address] [address] Brigette East LPN 04/15/2025 4:30 PM EST PACE Home Care / [place] Home Visit [facility] [place] [facility] [address] [place] [phone] Ashley Eastman 04/16/2025 8:30 AM EST PACE Home Care / [place] Home Visit [facility] [place] [facility] [address] [place] [address] Carmen Hartmann 04/16/2025 4:30 PM EST PACE Home Care / [place] [facility] Visit [facility] [place] [facility] [address] [place] [address] Ashley Eastman 04/17/2025 8:30 AM EST PACE Home Care / [place] [facility] Visit [facility] [place] [facility] [address] [place] [address] Carmen Hartmann 04/17/2025 9:00 AM EST [facility] [facility] [place] [facility] [address] [place] [address] 04/17/2025 4:30 PM EST PACE Home Care / [place] [facility] [place] [facility] [address] [place] [address] Ashley Eastman 04/18/2025 8:00 AM EST PACE Home Care / [place] [facility] Visit [facility] [place] [facility] [address] [place] [address] Carmen Hartmann 04/18/2025 4:30 PM EST PACE Home Care / [place] Home Visit [facility] [place] [facility] [address] [place] [address] Ashley Eastman 04/19/2025 12:00 PM EST PACE Home Care / [facility] [facility] Visit [facility] [place] [facility] [address] [place] [address] Dena Chavez 04/20/2025 12:00 PM EST PACE Home Care / [place] [facility] Visit [facility] [place] [facility] [address] [place] [address] Dena Chavez 04/21/2025 8:30 AM EST PACE Home Care / [facility] Home Visit [facility] [place] [facility] [address] [place] [address] Carmen Hartmann 04/21/2025 4:30 PM EST PACE Home Care / [facility] [place] [facility] [address] [place] [address] Ashley Eastman 04/22/2025 8:30 AM EST PACE Home Care / [facility] Visit [facility] [place] [facility] [address] [place] [address] Carmen Hartmann 04/22/2025 4:30 PM EST PACE Home Care / [facility] [place] [facility] [address] [place] [address] Ashley Eastman 04/23/2025 8:30 AM EST PACE Home Care / [facility] [place] [facility] [address] [place] [address] Carmen Hartmann 04/23/2025 4:30 PM EST PACE Home Care / [facility] [place] [facility] [address] [place] [phone] Ashley Eastman 04/24/2025 8:30 AM EST PACE Home Care / [facility] [facility] Visit [facility] [place] [facility] [address] [place] [phone] Caremn Hartmann 04/24/2025 9:00 AM EST [facility] Att[facility] [place] [facility] [address] [place] [address] 04/24/2025 4:30 PM EST PACE Home Care / [facility] Visit [facility] [place] [facility] [address] [place] [phone] Ashley Eastman 04/25/2025 8:00 AM EST PACE Home Care / [place] Home Visit [facility] [place] [facility] [address] [place] [address] Carmen Hartmann 04/25/2025 9:30 AM EST PACE Home Care / [facility] Home Visit [facility] [place] [facility] [address] [place] [address] Ralph Loyola 04/25/2025 4:30 PM EST PACE Home Care / [facility] Home Visit [facility] [place] [facility] [address] [place] [address] Ashley Eastman 04/26/2025 8:30 AM EST PACE Home Care / [place] Home Visit [facility] [place] [facility] [address] [place] [phone] Marysol Diaz 04/26/2025 12:00 PM EST PACE Home Care / [place] Home Visit [facility] [place] [facility] [address] [place] [phone] Natali Sanford 04/26/2025 5:30 PM EST PACE Home Care / [place] Home Visit [facility] [place] [facility] [address] [place] [phone] Marysol Diaz 04/27/2025 8:30 AM EST PACE Home Care / [place] [facility] Visit [facility] [place] [facility] [address] [place] [phone] Marysol Diaz 04/27/2025 12:00 PM EST PACE Home Care / [place] [facility] Visit [facility] [place] [facility] [address] [place] [phone] Natali Sanford 04/27/2025 4:30 PM EST PACE Home Care / [place] [facility] Visit [facility] [place] [facility] [address] [place] [phone] Marysol Diaz 04/27/2025 5:30 PM EST PACE Home Care / [place] [facility] Visit [facility] [place] [facility] [address] [place] [address] Marysol Diaz 04/28/2025 8:30 AM EST PACE Home Care / [facility] [facility] Visit [facility] [place] [facility] [address] [place] [address] Carmen Hartmann 04/28/2025 4:30 PM EST PACE Home Care / [place] [facility] Visit [facility] [place] [facility] [address] [place] [address] Ashley Eastman 04/29/2025 8:30 AM EST PACE Home Care / [place] [facility] Visit [facility] [place] [facility] [address] [place] [phone] Carmen Hartmann 04/29/2025 4:30 PM EST PACE Home Care / [place] [facility] Visit [facility] [place] [facility] [address] [place] [phone] Ashley Eastman 04/30/2025 8:30 AM EST PACE Home Care / [facility] Visit [facility] [place] [facility] [address] [place] [phone] Carmen Hartmann 04/30/2025 4:30 PM EST PACE Home Care / [place] [facility] Visit [facility] [place] [facility] [address] [place] [phone] Ashley Eastman 05/01/2025 8:30 AM EST PACE Home Care / [place] [facility] Visit [facility] [place] [facility] [address] [place] [address] Carmen Hartmann 05/01/2025 9:00 AM EST [facility] [place] [facility] [address] [place] [address] 05/01/2025 11:30 AM EST [facility] [place] [address] [place] [address] 05/01/2025 4:30 PM EST PACE Home Care / [facility] [facility] Visit [facility] [place] [facility] [address] [place] [address] Ashley Eastman 05/02/2025 8:00 AM EST PACE Home Care / [place] Home Visit [facility] [place] [facility] [address] [place] [phone] Carmen Hartmann 05/02/2025 9:30 AM EST PACE Home Care / [facility] Home Visit [facility] [place] [facility] [address] [place] [phone] Ralph Loyola 05/02/2025 4:30 PM EST PACE Home Care / [facility] [facility] Visit [facility] [place] [facility] [address] [place] [phone] Ashley Eastman 05/03/2025 12:00 PM EST PACE Home Care / [facility] [facility] Visit [facility] [place] [facility] [address] [place] [phone] Dena Chavez 05/04/2025 12:00 PM EST PACE Home Care / [facility] [facility] Visit [facility] [place] [facility] [address] [place] [phone] Dena Chavez 05/05/2025 8:30 AM EST PACE Home Care / [facility] [facility] Visit [facility] [place] [facility] [address] [place] [phone] Carmen Hartmann 05/05/2025 4:30 PM EST PACE Home Care / [facility] [facility] Visit [facility] [place] [facility] [address] [place] [phone] Ashley Eastman 05/06/2025 8:30 AM EST PACE Home Care / [facility] [facility] [place] [facility] [address] [place] [phone] Carmen Hartmann 05/06/2025 4:30 PM EST PACE Home Care / [facility] [place] [facility] [address] [place] [address] Ashley Eastman 05/07/2025 8:30 AM EST PACE Home Care / [facility] [facility] [place] [facility] [address] [place] [phone] Carmen Hartmann 05/07/2025 4:30 PM EST PACE Home Care / [facility] [place] [facility] [address] [place] [phone] Ashley Eastman 05/08/2025 8:30 AM EST PACE Home Care / [facility] [facility] [place] [facility] [address] [place] [phone] Carmen Hartmann 05/08/2025 9:00 AM EST [facility] Att[facility] [place] [facility] [address] [place] [address] 05/08/2025 4:30 PM EST PACE Home Care / [facility] [facility] [place] [facility] [address] [place] [phone] Ashley Eastman 05/09/2025 8:00 AM EST PACE Home Care / [facility] [place] [facility] [address] [place] [phone] Carmen Hartmann 05/09/2025 9:30 AM EST PACE Home Care / [facility] [place] [facility] [address] [place] [phone] Ralph Loyola 05/09/2025 4:30 PM EST PACE Home Care / [facility] [place] [facility] [address] [place] [phone] Ashley Eastman 05/10/2025 8:30 AM EST PACE Home Care / [facility] [address] [place] [address] Marysol Diaz 05/10/2025 12:00 PM EST PACE Home Care / [facility] [address] [place] [address] Natali Sanford 05/10/2025 5:30 PM EST PACE Home Care / [facility] [place] [facility] [address] [place] [address] Marysol Diaz 05/11/2025 8:30 AM EST PACE Home Care / [facility] [place] [facility] [address] [place] [phone] Marysol Diaz 05/11/2025 12:00 PM EST PACE Home Care / [facility] [facility] [place] [facility] [address] [place] [phone] Natali Sanford 05/11/2025 4:30 PM EST PACE Home Care / [facility] [place] [facility] [address] [place] [phone] Marysol Diaz 05/11/2025 5:30 PM EST PACE Home Care / [facility] [place] [facility] [address] [place] [phone] Marysol Diaz 05/12/2025 8:30 AM EST PACE Home Care / [facility] [place] [facility] [address] [place] [phone] Carmen Hartmann 05/12/2025 4:30 PM EST PACE Home Care / [facility] [place] [facility] [address] [place] [phone] Ashley Eastman 05/13/2025 8:30 AM EST PACE Home Care / [facility] [place] [facility] [address] [place] [address] Carmen Hartmann 05/13/2025 11:00 AM EST [facility] [place] [facility] [address] [place] [address] Regulo Ivy, ALONSO [address] [address] Brigette East LPN 05/13/2025 4:30 PM EST PACE Home Care / [facility] [place] [facility] [address] [place] [phone] Ashley Eastman 05/14/2025 8:30 AM EST PACE Home Care / [facility] [place] [facility] [address] [place] [phone] Carmen Hartmann 05/14/2025 4:30 PM EST PACE Home Care / [facility] Visit [facility] [place] [facility] [address] [place] [phone] Ashley Eastman 05/15/2025 8:30 AM EST PACE Home Care / [facility] Visit [facility] [place] [facility] [address] [place] [phone] Carmen Hartmann 05/15/2025 9:00 AM EST [facility] Att[facility] [facility] [place] [facility] [address] [place] [address] 05/15/2025 4:30 PM EST PACE Home Care / [facility] [address] [place] [phone] Ashley Eastman 05/16/2025 8:00 AM EST PACE Home Care / [facility] [place] [facility] [address] [place] [phone] Carmen Hartmann 05/16/2025 9:30 AM EST PACE Home Care / [facility] [place] [facility] [address] [place] [phone] Ralph Loyola 05/16/2025 4:30 PM EST PACE Home Care / [facility] [place] [facility] [address] [place] [phone] Ashley Eastman 05/17/2025 12:00 PM EST PACE Home Care / [facility] [place] [facility] [address] [place] [phone] Dena Chavez 05/18/2025 12:00 PM EST PACE Home Care / [facility] [place] [facility] [address] [place] [phone] Dena Chavez 05/19/2025 8:30 AM EST PACE Home Care / [facility] [place] [facility] [address] [place] [phone] Carmen Hartmann 05/19/2025 4:30 PM EST PACE Home Care / [facility] [place] [facility] [address] [place] [phone] Ashley Eastman 05/20/2025 8:30 AM EST P[facility] Home Care / [facility] [place] [facility] [address] [place] [phone] Carmen Hartmann 05/20/2025 4:30 PM EST PACE Home Care / [facility] [place] [facility] [address] [place] [phone] Ashley Eastman 05/21/2025 8:30 AM EST PACE Home Care / [facility] [place] [facility] [address] [place] [phone] Carmen Hartmann 05/21/2025 4:30 PM EST PACE Home Care / [facility] [place] [facility] [address] [place] [phone] Ashley Eastman 05/22/2025 8:30 AM EST PACE Home Care / [facility] [place] [facility] [address] [place] [phone] Carmen Hartmann 05/22/2025 9:00 AM EST [facility] [facility] [place] [facility] [address] [place] [address] 05/22/2025 4:30 PM EST PACE Home Care / [facility] [place] [facility] [address] [place] [phone] Ashley Eastman 05/23/2025 8:00 AM EST P[facility] Home Care / [facility] [place] [facility] [address] [place] [phone] Carmen Hartmann 05/23/2025 9:30 AM EST P[facility] Home Care / [facility] [place] [facility] [address] [place] [phone] Ralph Loyola 05/23/2025 4:30 PM EST PACE Home Care / [facility] [place] [facility] [address] [place] [phone] Ashley Eastman 05/24/2025 8:30 AM EST P[facility] Home Care / [facility] [place] [facility] [address] [place] [phone] Marysol Diaz 05/24/2025 12:00 PM EST P[facility] Home Care / [facility] [place] [facility] [address] [place] [phone] Natali Sanford 05/24/2025 5:30 PM EST PACE Home Care / [facility] [place] [facility] [address] [place] [phone] Marysol Diaz 05/25/2025 8:30 AM EST P[facility] Home Care / [facility] [place] [facility] [address] [place] [phone] Marysol Diaz 05/25/2025 12:00 PM EST P[facility] Home Care / [facility] [place] [facility] [address] [place] [phone] Natali Sanford 05/25/2025 4:30 PM EST P[facility] Home Care / [facility] [place] [facility] [address] [place] [phone] Marysol Diaz 05/25/2025 5:30 PM EST P[facility] Home Care / [facility] [place] [facility] [address] [place] [phone] Marysol Diaz 05/26/2025 8:30 AM EST P[facility] Home Care / [facility] [place] [facility] [address] [place] [phone] Carmen Hartmann 05/26/2025 4:30 PM EST P[facility] Home Care / [facility] [place] [facility] [address] [place] [phone] Ashley Eastman 05/27/2025 8:30 AM EST P[facility] Home Care / [facility] [place] [facility] [address] [place] [phone] Carmen Hartmann 05/27/2025 4:30 PM EST PACE Home Care / [facility] [place] [facility] [address] [place] [phone] Ashley Eastman 05/28/2025 8:30 AM EST P[facility] Home Care / [facility] [place] [facility] [address] [place] [address] aCrmen Hartmann 05/28/2025 4:30 PM EST P[facility] Home Care / [facility] [place] [facility] [address] [place] [address] Ashley Eastman 05/29/2025 8:30 AM EST P[facility] Home Care / [facility] [place] [facility] [address] [place] [address] Carmen Hartmann 05/29/2025 9:00 AM EST [facility] Att[facility] [facility] [place] [facility] [address] [place] [phone] 05/29/2025 4:30 PM EST PACE Home Care / [facility] Visit [facility] [place] [facility] [address] [place] [phone] Ashley Eastman 05/30/2025 8:00 AM EST P[facility] Home Care / [facility] [place] [facility] [address] [place] [phone] Carmen Hartmann 05/30/2025 9:30 AM EST PACE Home Care / [facility] [place] [facility] [address] [place] [phone] Ralph Loyola 05/30/2025 4:30 PM EST P[facility] Home Care / [facility] [place] [facility] [address] [place] [phone] Ashley Eastman 06/05/2025 9:00 AM EST [facility] Att[facility] [facility] [place] [facility] [address] [place] [address] 06/10/2025 11:00 AM EST [facility] Visit [facility] [place] [facility] [address] [place] [address] Michelle Castillo MD [address] [address] Brigette East LPN 06/12/2025 9:00 AM EST PACE Attendance/Day Center [facility] Day [facility] [address] [place] [phone] 06/19/2025 9:00 AM EST PACE Attendance/Day Center [facility] [address] [place] [phone] 06/26/2025 9:00 AM EDT PACE Attendance/Day Center [facility] Day [address] [phone] 06/27/2025 1:20 PM EDT Office Visit Gastroenterology - 299 Valerie [address] [phone] Analisa Perez, ALONSO [address] [address] 07/03/2025 9:00 AM EDT PACE Attendance/Day Center [facility] Day [address] [phone] 07/10/2025 9:00 AM EDT [facility] Att[facility] [facility] [address] [place] [phone] 07/17/2025 9:00 AM EDT P[facility] Attendance/Day Center [facility] [address] [place] [phone] 07/17/2025 3:30 PM EDT PACE External Visit [address] [phone] 07/24/2025 9:00 AM EDT P[facility] Attendance/Day Center [facility] Day [address] [phone] 07/31/2025 9:00 AM EDT [facility] Attendance/[facility] [address] [place] [phone] 08/07/2025 9:00 AM EDT [facility] Attend[facility] [address] [place] [phone] 08/14/2025 9:00 AM EDT [facility] Attendance/[facility] [place] [facility] [address] [place] [address] 08/21/2025 9:00 AM EDT [facility] Attendance[facility] [place] [facility] [address] [place] [phone] 08/28/2025 9:00 AM EDT [facility] Attend[facility] [place] [facility] [address] [place] [phone] 09/04/2025 9:00 AM EDT [facility] Att[facility] [place] [facility] [address] [place] [phone] 09/11/2025 9:00 AM EDT [facility] Attendance/[facility] [address] [place] [phone] 09/18/2025 9:00 AM EDT [facility] Attendance[facility] [place] [facility] [address] [place] [phone] 09/25/2025 9:00 AM EDT [facility] Attendance/[facility] [address] [place] [address] 10/02/2025 9:00 AM EDT [facility] Attend[facility] [place] [facility] [address] [place] [phone] 10/09/2025 9:00 AM EDT [facility] Attendance/Day [facility] [address] [place] [phone] documented as of this encounter Visit Diagnoses Not on filedocumented in this encounter Additional Health Concerns Infection Onset Date Last Indicated Resolved Time Gastrointestinal Rule-Out 02/10/2025 02/10/2025 7:04 PM EST documented as of this encounter Care Teams Panel Raiser Operator Relationship Specialty Start Date End Date Regulo Ivy NP [address] [place] [address] PCP - General PACE 06/07/24 documented as of this encounter
--- OUTSIDE RECORDS SUMMARY | 2025-04-01 17:10 | XMS_ITS | Clinical Summary ---
Author Organization [facility] Address [address] [place] [address] Care Team Providers Care Skid Strapper Name Role Phone Regulo Ivy Primary Care Provider [phone] Allergies Active Allergy Reactions Criticality Noted Date [...] once daily Quantity: 527; Refills: 0 Started [id number] Active 5 Active albuterol (PROAIR HFA,VENTOLIN HFA) [...] to reestablish care since I returned to [facility]. Since she was last seen in [...] years old and patients) (1 - Risk 50-74 years 1-dose series) 2009 Pneumococcal Vaccine: 50+ Years (2 of 2 - PCV) 12/29/2020 12/30/2019, 12/09/2014, 03/05/2013 DTaP,Tdap,and Td Vaccines (2 - Td or Tdap) 08/28/2021 08/29/2011 Basic Metabolic Panel 03/30/2024 03/30/2023 , 01/27/2021, 08/12/2020, Additional history exists Alcohol/Substance Use Screening 04/17/2024 Depression Screening and Follow-Up 04/17/2024 Fall Risk Screening 04/17/2024 Health Care Proxy Review 04/17/2024 Social Drivers of Health Annual Screening 04/17/2024 Influenza Vaccine (#1) 2024 , 02/07/2021, 12/30/2019, Additional history exists COVID-19 Vaccine ( season) 2024 01/13/2022, 02/07/2021, 07/30/2020, Additional history exists Zoster Vaccines Completed 02/28/2020, 12/30/2019 Hepatitis B Vaccines Aged Out No long er eligible based on patient's age to complete this topic Procedures * Due to [place] [employer] law, this organization might not be sharing negative HIV tests. Procedure Name Priority Date/Time Associated Diagnosis Comments COMPREHENSIVE METABOLIC PANEL Routine 03/30/2023 3:13 PM EST Intractable generalized idiopathic epilepsy without status epilepticus from Last 3 Months or Most Recently Relevant to Health Maintenance Results * Due to [facility] law, this organization might not be sharing [...] - 32 mmol/L 03/30/2023 5:42 PM EST [facility] Anion Gap [...] - 8.0 g/dL 03/30/2023 5:42 PM EST [facility] Albumin 4.4 3.5 - 4.8 g/dL 03/30/2023 5:42 PM EST [facility] Bilirubin, Total 0.3 0.3 - 1.2 mg/dL 03/30/2023 5:42 PM EST [facility] Alkaline Phosphatase 54 30 - 115 U/L 03/30/2023 5:42 PM EST [facility] AST 12 10 - 40 U/L 03/30/2023 5:42 PM EST [facility] ALT 17 10 - 40 U/L 03/30/2023 5:42 PM EST [facility] BUN 17 7 - 23 mg/dL 03/30/2023 5:42 PM EST [facility] eGFR 61 >=60 mL/min/1. 73m2 03/30/2023 5:42 PM EST [facility] Comment:The estimated [...] LAB BLOOD ORDERABLES Final Resul t [facility] [address] [place] [address], from Last 3 Months or Most Recently Relevant to Health Maintenance Insurance [facility] Care Teams Skid Strapper Relationship Specialty Start Date End Date Regulo Ivy [address] [place] [address] PCP - General 03/27/23
--- OUTSIDE RECORDS SUMMARY | 2025-04-01 17:10 | XMS_ITS | Encounter Summary ---
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 [address] [place] [address] Michelle Castillo MD 200 [facility] 1 [place] [address] Social History Tobacco Use Types Packs/Day Years [...] In Home Nursing and Aide Services [address] [place] [phone] Carmen Hartmann 04/02/2025 4:30 PM EST PACE Home Care / [place] [facility] Visit [facility] [place] [facility] [address] [place] [address] Ashley Eastman 04/03/2025 8:30 AM EST PACE Home Care / [place] Home Visit [facility] [place] [facility] [address] [place] [address] Carmen Hartmann 04/03/2025 9:00 AM EST [facility] [place] [facility] [address] [place] [address] 04/03/2025 4:30 PM EST PACE Home Care / [facility] [place] [facility] [address] [place] [phone] Ashley Eastman 04/04/2025 [facility] [place] [facility] [address] [place] [address] Regulo Ivy NP [address] [address] Constipation, unspecified constipation type 04/04/2025 8:00 AM EST PACE Home Care / [facility] [place] [facility] [address] [place] [phone] Titi Thomas 04/04/2025 8:30 AM EST PACE Home Care / [facility] Visit [facility] [place] [facility] [address] [place] [phone] Marysol Diaz 04/04/2025 4:30 PM EST PACE Home Care / [facility] Visit [facility] [place] [facility] [address] [place] [phone] Ashley Eastman 04/05/2025 12:00 PM EST PACE Home Care / [facility] Visit [facility] [place] [facility] [address] [place] [phone] Dena Chavez 04/06/2025 12:00 PM EST PACE Home Care / [facility] Visit [facility] [place] [facility] [address] [place] [phone] Dena Chavez 2025 8:30 AM EST PACE Home Care / [facility] [place] [facility] [address] [place] [address] Carmen Hartmann 2025 4:30 PM EST PACE Home Care / [facility] Visit [facility] [place] [facility] [address] [place] [address] Ashley Eastman 04/08/2025 8:30 AM EST PACE Home Care / [facility] Visit [facility] [place] [facility] [address] [place] [address] Carmen Hartmann 04/08/2025 4:30 PM EST PACE Home Care / [facility] [place] [facility] [address] [place] [phone] Ashley Eastman 04/09/2025 8:30 AM EST PACE Home Care / [facility] [place] [facility] [address] [place] [phone] Carmen Hartmann 04/09/2025 4:30 PM EST PACE Home Care / [facility] Visit [facility] [place] [facility] [address] [place] [phone] Ashley Eastman 04/10/2025 6:05 AM EST PACE Home Care / [facility] Visit [facility] [place] [facility] [address] [place] [phone] Jackeline Mcrae 04/10/2025 9:00 AM EST [facility] [place] [facility] [address] [place] [address] 04/10/2025 4:30 PM EST PACE Home Care / [place] [facility] [place] [facility] [address] [place] [phone] Ashley Eastman 04/11/2025 8:00 AM EST PACE Home Care / [place] [facility] Visit [facility] [place] [facility] [address] [place] [address] Carmen Hartmann 04/11/2025 9:30 AM EST PACE Home Care / [facility] Home Visit [facility] [place] [facility] [address] [place] [address] Carmen Hartmann 04/11/2025 4:30 PM EST PACE Home Care / [place] Home Visit [facility] [place] [facility] [address] [place] [address] Ashley Eastman 04/12/2025 8:30 AM EST PACE Home Care / [facility] Visit [facility] [place] [facility] [address] [place] [address] Marysol Diaz 04/12/2025 12:00 PM EST PACE Home Care / [place] Home Visit [facility] [place] [facility] [address] [place] [address] Natali Sanford 04/12/2025 5:30 PM EST PACE Home Care / [place] Home Visit [facility] [place] [facility] [address] [place] [address] Marysol Diaz 04/13/2025 8:30 AM EST PACE Home Care / [place] Home Visit [facility] [place] [facility] [address] [place] [address] Marysol Diaz 04/13/2025 12:00 PM EST PACE Home Care / [place] [facility] Visit [facility] [place] [facility] [address] [place] [address] Natali Sanford 04/13/2025 4:30 PM EST PACE Home Care / [place] Home Visit [facility] [place] [facility] [address] [place] [address] Marysol Diaz 04/13/2025 5:30 PM EST PACE Home Care / [place] [facility] Visit [facility] [place] [facility] [address] [place] [address] Marysol Diaz 04/14/2025 8:30 AM EST PACE Home Care / [facility] [address] [place] [phone] Carmen Hartmann 04/14/2025 4:30 PM EST PACE Home Care / [facility] Visit [facility] [place] [facility] [address] [place] [phone] Ashley Eastman 04/15/2025 8:30 AM EST PACE Home Care / [facility] Visit [facility] [address] [place] [phone] Carmen Hartmann 04/15/2025 11:00 AM EST [facility] [place] [facility] [address] [place] [phone] Regulo Ivy, ALONSO [address] [address] Brigette East LPN 04/15/2025 4:30 PM EST PACE Home Care / [facility] [address] [place] [phone] Ashley Eastman 04/16/2025 8:30 AM EST PACE Home Care / [facility] [address] [place] [phone] Carmen Hartmann 04/16/2025 4:30 PM EST PACE Home Care / [facility] [address] [place] [phone] Ashley Eastman 04/17/2025 8:30 AM EST PACE Home Care / [facility] [address] [place] [phone] Carmen Hartmann 04/17/2025 9:00 AM EST [facility] [place] [facility] [address] [place] [address] 04/17/2025 4:30 PM EST PACE Home Care / [place] [facility] Visit [facility] [place] [facility] [address] [place] [phone] Ashley Eastman 04/18/2025 8:00 AM EST PACE Home Care / [place] [facility] Visit [facility] [place] [facility] [address] [place] [phone] Carmen Hartmann 04/18/2025 4:30 PM EST PACE Home Care / [facility] Visit [facility] [place] [facility] [address] [place] [phone] Ashley Eastman 04/19/2025 12:00 PM EST PACE Home Care / [facility] [address] [place] [phone] Dena Chavez 04/20/2025 12:00 PM EST PACE Home Care / [place] Home Visit [facility] [place] [facility] [address] [place] [phone] Dena Chavez 04/21/2025 8:30 AM EST PACE Home Care / [place] [facility] Visit [facility] [place] [facility] [address] [place] [phone] Carmen Hartmann 04/21/2025 4:30 PM EST PACE Home Care / [place] [facility] Visit [facility] [place] [facility] [address] [place] [phone] Ashley Eastman 04/22/2025 8:30 AM EST PACE Home Care / [place] [facility] Visit [facility] [place] [facility] [address] [place] [phone] Carmen Hartmann 04/22/2025 4:30 PM EST PACE Home Care / [place] [facility] Visit [facility] [place] [facility] [address] [place] [address] Ashley Eastman 04/23/2025 8:30 AM EST PACE Home Care / [place] [facility] Visit [facility] [place] [facility] [address] [place] [address] Carmen Hartmann 04/23/2025 4:30 PM EST PACE Home Care / [place] [facility] Visit [facility] [place] [facility] [address] [place] [address] Ashley Eastman 04/24/2025 8:30 AM EST PACE Home Care / [place] Home Visit [facility] [place] [facility] [address] [place] [phone] Carmen Hartmann 04/24/2025 9:00 AM EST [facility] Att[place] [facility] [place] [facility] [address] [place] [address] 04/24/2025 4:30 PM EST PACE Home Care / [place] [facility] Visit [facility] [place] [facility] [address] [place] [phone] Ashley Eastman 04/25/2025 8:00 AM EST PACE Home Care / [place] [facility] Visit [facility] [place] [facility] [address] [place] [address] Carmen Hartmann 04/25/2025 9:30 AM EST PACE Home Care / [place] [facility] Visit [facility] [place] [facility] [address] [place] [phone] Ralph Loyola 04/25/2025 4:30 PM EST PACE Home Care / [place] [facility] Visit [facility] [place] [facility] [address] [place] [address] Ashley Eastman 04/26/2025 8:30 AM EST PACE Home Care / [place] [facility] Visit [facility] [place] [facility] [address] [place] [address] Marysol Diaz 04/26/2025 12:00 PM EST PACE Home Care / [place] Home Visit [facility] [place] [facility] [address] [place] [address] Natali Sanford 04/26/2025 5:30 PM EST PACE Home Care / [place] Home Visit [facility] [place] [facility] [address] [place] [address] Marysol Diaz 04/27/2025 8:30 AM EST PACE Home Care / [place] Home Visit [facility] [place] [facility] [address] [place] [address] Marysol Diaz 04/27/2025 12:00 PM EST PACE Home Care / [place] Home Visit [facility] [place] [facility] [address] [place] [address] Natali Sanford 04/27/2025 4:30 PM EST PACE Home Care / [place] [facility] Visit [facility] [place] [facility] [address] [place] [address] Marysol Diaz 04/27/2025 5:30 PM EST PACE Home Care / [place] [facility] Visit [facility] [place] [facility] [address] [place] [address] Marysol Diaz 04/28/2025 8:30 AM EST PACE Home Care / [place] Home Visit [facility] [place] [facility] [address] [place] [phone] Carmen Hartmann 04/28/2025 4:30 PM EST PACE Home Care / [place] Home Visit [facility] [place] [facility] [address] [place] [phone] Ashley Eastman 04/29/2025 8:30 AM EST PACE Home Care / P[facility] Visit [facility] [place] [facility] [address] [place] [address] Carmen Hartmann 04/29/2025 4:30 PM EST PACE Home Care / P[place] Home Visit [facility] [place] [facility] [address] [place] [address] Ashley Eastman 04/30/2025 8:30 AM EST PACE Home Care / [facility] Visit [facility] [place] [facility] [address] [place] [address] Carmen Hartmann 04/30/2025 4:30 PM EST PACE Home Care / [facility] [address] [place] [phone] Ashley Eastman 05/01/2025 8:30 AM EST PACE Home Care / [facility] Visit [facility] [place] [facility] [address] [place] [address] Carmen Hartmann 05/01/2025 9:00 AM EST PACE Att[facility]ance[facility] [place] [facility] [address] [place] [address] 05/01/2025 11:30 AM EST Clinical Support [facility] [place] [address] [place] [address] 05/01/2025 4:30 PM EST PACE Home Care / [facility] [facility] Visit [facility] [place] [facility] [address] [place] [address] Ashley Eastman 05/02/2025 8:00 AM EST PACE Home Care / [place] Home Visit [facility] [place] [facility] [address] [place] [phone] Carmen Hartmann 05/02/2025 9:30 AM EST PACE Home Care / P[facility] Visit [facility] [place] [facility] [address] [place] [address] Ralph Loyola 05/02/2025 4:30 PM EST PACE Home Care / P[place] Home Visit [facility] [place] [facility] [address] [place] [address] Ashley Eastman 05/03/2025 12:00 PM EST PACE Home Care / [place] [facility] Visit [facility] [place] [facility] [address] [place] [address] Dena Chavez 05/04/2025 12:00 PM EST PACE Home Care / [place] [facility] Visit [facility] [place] [facility] [address] [place] [phone] Dena Chavez 05/05/2025 8:30 AM EST PACE Home Care / [place] [facility] Visit [facility] [place] [facility] [address] [place] [phone] Carmen Hartmann 05/05/2025 4:30 PM EST PACE Home Care / [place] [facility] Visit [facility] [place] [facility] [address] [place] [address] Ashley Eastman 05/06/2025 8:30 AM EST PACE Home Care / [place] [facility] Visit [facility] [place] [facility] [address] [place] [phone] Carmen Hartmann 05/06/2025 4:30 PM EST PACE Home Care / [place] [facility] Visit [facility] [place] [facility] [address] [place] [phone] Ashley Eastman 05/07/2025 8:30 AM EST PACE Home Care / [place] [facility] Visit [facility] [address] [place] [phone] Carmen Hartmann 05/07/2025 4:30 PM EST PACE Home Care / [place] [facility] Visit [facility] [place] [facility] [address] [place] [address] [place] [address] Ashley Eastman 05/08/2025 8:30 AM EST PACE Home Care / [facility] [facility] Visit [facility] [place] [facility] [address] [place] [address] Carmen Hartmann 05/08/2025 9:00 AM EST [facility] [facility] [place] [facility] [address] [place] [address] 05/08/2025 4:30 PM EST PACE Home Care / [place] [facility] [place] [facility] [address] [place] [phone] Ashley Eastman 05/09/2025 8:00 AM EST PACE Home Care / [place] [facility] [address] [place] [phone] Carmen Hartmann 05/09/2025 9:30 AM EST PACE Home Care / [place] [facility] [address] [place] [phone] Ralph Loyola 05/09/2025 4:30 PM EST PACE Home Care / [facility] [place] [facility] [address] [place] [phone] Ashley Eastman 05/10/2025 8:30 AM EST PACE Home Care / [facility] [facility] [place] [facility] [address] [place] [phone] Marysol Diaz 05/10/2025 12:00 PM EST PACE Home Care / [facility] [address] [place] [phone] Natali Sanford 05/10/2025 5:30 PM EST PACE Home Care / [place] [facility] [address] [place] [phone] Marysol Diaz 05/11/2025 8:30 AM EST PACE Home Care / [place] [facility] [place] [facility] [address] [place] [phone] Marysol Diaz 05/11/2025 12:00 PM EST PACE Home Care / [facility] [facility] [place] [facility] [address] [place] [phone] Natali Sanford 05/11/2025 4:30 PM EST PACE Home Care / [facility] [place] [facility] [address] [place] [phone] Marysol Diaz 05/11/2025 5:30 PM EST PACE Home Care / [facility] [place] [facility] [address] [place] [phone] Marysol Diaz 05/12/2025 8:30 AM EST PACE Home Care / [facility] [place] [facility] [address] [place] [phone] Carmen Hartmann 05/12/2025 4:30 PM EST PACE Home Care / [place] [facility] [place] [facility] [address] [place] [phone] Ashley Eastman 05/13/2025 8:30 AM EST PACE Home Care / [facility] [facility] [place] [facility] [address] [place] [phone] Carmen Hartmann 05/13/2025 11:00 AM EST [facility] Visit [facility] [place] [facility] [address] [place] [phone] Regulo Ivy NP [address] [address] Brigette East LPN 05/13/2025 4:30 PM EST PACE Home Care / [facility] [facility] [place] [facility] [address] [place] [address] Ashley Eastman 05/14/2025 8:30 AM EST PACE Home Care / [facility] [place] [facility] [address] [place] [address] Carmen Hartmann 05/14/2025 4:30 PM EST PACE Home Care / [place] [facility] [place] [facility] [address] [place] [address] Ashley Eastman 05/15/2025 8:30 AM EST PACE Home Care / [place] [facility] Visit [facility] [place] [facility] [address] [place] [address] Carmen Hartmann 05/15/2025 9:00 AM EST [facility] [place] [facility] [address] [place] [address] 05/15/2025 4:30 PM EST PACE Home Care / [place] [facility] Visit [facility] [place] [facility] [address] [place] [address] Ashley Eastman 05/16/2025 8:00 AM EST PACE Home Care / [place] [facility] [place] [facility] [address] [place] [address] Carmen Hartmann 05/16/2025 9:30 AM EST PACE Home Care / [facility] [place] [facility] [address] [place] [phone] Ralph Loyola 05/16/2025 4:30 PM EST PACE Home Care / [facility] [place] [facility] [address] [place] [address] Ashley Eastman 05/17/2025 12:00 PM EST PACE Home Care / [facility] [place] [facility] [address] [place] [address] Dena Chavez 05/18/2025 12:00 PM EST PACE Home Care / [place] [place] [facility] [address] [place] [phone] Dena Chavez 05/19/2025 8:30 AM EST PACE Home Care / [facility] [place] [facility] [address] [place] [address] Carmen Hartmann 05/19/2025 4:30 PM EST PACE Home Care / [facility] Visit [facility] [place] [facility] [address] [place] [phone] Ashley Eastman 05/20/2025 8:30 AM EST PACE Home Care / [facility] Visit [facility] [place] [facility] [address] [place] [phone] Carmen Hartmann 05/20/2025 4:30 PM EST PACE Home Care / [facility] Visit [facility] [place] [facility] [address] [place] [phone] Ashley Eastman 05/21/2025 8:30 AM EST PACE Home Care / [facility] [place] [facility] [address] [place] [phone] Carmen Hartmann 05/21/2025 4:30 PM EST PACE Home Care / [facility] [place] [facility] [address] [place] [phone] Ashley Eastman 05/22/2025 8:30 AM EST PACE Home Care / [facility] [place] [facility] [address] [place] [phone] Carmen Hartmann 05/22/2025 9:00 AM EST [facility] [facility] [place] [facility] [address] [place] [address] 05/22/2025 4:30 PM EST PACE Home Care / [facility] [place] [facility] [address] [place] [address] Ashley Eastman 05/23/2025 8:00 AM EST PACE Home Care / [facility] [place] [facility] [address] [place] [phone] Carmen Hartmann 05/23/2025 9:30 AM EST PACE Home Care / [facility] [place] [facility] [address] [place] [phone] Ralph Loyola 05/23/2025 4:30 PM EST PACE Home Care / [facility] [place] [facility] [address] [place] [phone] Ashley Eastman 05/24/2025 8:30 AM EST PACE Home Care / [facility] Visit [facility] [place] [facility] [address] [place] [phone] Marysol Diaz 05/24/2025 12:00 PM EST PACE Home Care / [facility] [place] [facility] [address] [place] [phone] Natali Sanford 05/24/2025 5:30 PM EST PACE Home Care / [facility] [place] [facility] [address] [place] [phone] Marysol Diaz 05/25/2025 8:30 AM EST PACE Home Care / [facility] [facility] [place] [facility] [address] [place] [phone] Marysol Diaz 05/25/2025 12:00 PM EST PACE Home Care / [facility] [place] [facility] [address] [place] [phone] Natali Sanford 05/25/2025 4:30 PM EST PACE Home Care / [place] [place] [facility] [address] [place] [phone] Marysol Diaz 05/25/2025 5:30 PM EST PACE Home Care / [facility] [facility] [place] [facility] [address] [place] [phone] Marysol Diaz 05/26/2025 8:30 AM EST PACE Home Care / [facility] [place] [facility] [address] [place] [phone] Carmen Hartmann 05/26/2025 4:30 PM EST PACE Home Care / [place] [facility] [place] [facility] [address] [place] [phone] Ashley Eastman 05/27/2025 8:30 AM EST PACE Home Care / [facility] [place] [facility] [address] [place] [phone] Carmen Hartmann 05/27/2025 4:30 PM EST PACE Home Care / [facility] [place] [facility] [address] [place] [phone] Ashley Eastman 05/28/2025 8:30 AM EST PACE Home Care / [facility] [place] [facility] [address] [place] [phone] Carmen Hartmann 05/28/2025 4:30 PM EST PACE Home Care / [facility] [place] [facility] [address] [place] [phone] Ashley Eastman 05/29/2025 8:30 AM EST PACE Home Care / [facility] [place] [facility] [address] [place] [phone] Carmen Hartmann 05/29/2025 9:00 AM EST [facility] Att[facility] [place] [facility] [address] [place] [phone] 05/29/2025 4:30 PM EST PACE Home Care / [facility] [place] [facility] [address] [place] [phone] Ashley Eastman 05/30/2025 8:00 AM EST PACE Home Care / [facility] [place] [facility] [address] [place] [phone] Carmen Hartmann 05/30/2025 9:30 AM EST PACE Home Care / [facility] [place] [facility] [address] [place] [phone] Rlaph Loyola 05/30/2025 4:30 PM EST PACE Home Care / [facility] [place] [facility] [address] [place] [phone] Ashley Eastman 06/05/2025 9:00 AM EST [place] [facility] [place] [facility] [address] [place] [phone] 06/10/2025 11:00 AM EST [facility] [place] [facility] [address] [place] [phone] Michelle Castillo MD [address] [place] [address] Brigette East LPN 06/12/2025 9:00 AM EST [facility] Att[facility] [facility] [place] [facility] [address] [place] [phone] 06/19/2025 9:00 AM EST [place] [facility] [place] [facility] [address] [place] [phone] 06/26/2025 9:00 AM EDT P[facility] Attendance[facility] [place] [facility] [address] [place] [address] 06/27/2025 1:20 PM EDT Office Visit Gastroenterology - [address] [place] [address] Analisa Perez, ALONSO [address] [place] [address] 07/03/2025 9:00 AM EDT PACE Attend[facility] [place] [facility] [address] [place] [phone] 07/10/2025 9:00 AM EDT [facility] Att[facility] [place] [facility] [address] [place] [phone] 07/17/2025 9:00 AM EDT [facility] Att[facility] [place] [facility] [address] [place] [phone] 07/17/2025 3:30 PM EDT [facility] External Visit Marsha ABRAMS [place] [address] [place] [phone] 07/24/2025 9:00 AM EDT [facility] Att[facility] [place] [facility] [address] [place] [phone] 07/31/2025 9:00 AM EDT [facility] Att[facility] [place] [facility] [address] [place] [phone] 08/07/2025 9:00 AM EDT [facility] Att[facility] [place] [facility] [address] [place] [phone] 08/14/2025 9:00 AM EDT [facility] Att[facility] [place] [facility] [address] [place] [phone] 08/21/2025 9:00 AM EDT [facility] [place] [facility] [address] [place] [phone] 08/28/2025 9:00 AM EDT [facility] [place] [facility] [address] [place] [phone] 09/04/2025 9:00 AM EDT [facility] [place] [facility] [address] [place] [phone] 09/11/2025 9:00 AM EDT [facility] [place] [facility] [address] [place] [phone] 09/18/2025 9:00 AM EDT [facility] [place] [facility] [address] [place] [phone] 09/25/2025 9:00 AM EDT [facility] [place] [facility] [address] [place] [phone] 10/02/2025 9:00 AM EDT [facility] [place] [facility] [address] [place] [phone] 10/09/2025 9:00 AM EDT [facility] [address] [place] [phone] documented as of this encounter Visit Diagnoses Not on filedocumented in this encounter Additional Health Concerns Infection Onset Date Last Indicated Resolved Time Gastrointestinal Rule-Out 02/10/2025 02/10/2025 7:04 PM EST documented as of this encounter Care Teams Clerical Adviser Relationship Specialty Start Date End Date Regulo Ivy NP [address] [place] [id number] PCP - General [facility] 06/07/24 documented as of this encounter
--- OUTSIDE RECORDS SUMMARY | 2025-04-01 17:11 | XMS_ITS | Encounter Summary ---
Author Organization [facility] Address [address] [place] [address] Care Team Providers Care Automobile Mechanic Supervisor Name Role Phone Regulo Ivy Primary Care Provider [phone] Encounter Details Date Type Department Care Team (Late st Contact Info) Description 09/15/2021 myChart Message [facility] [address] [place] [address] Juni Caro MD [address] [facility] [place] [address] Tremors Social History Tobacco Use Types Packs/Day [...] on filedocumented in this encounter Care Teams Automobile Mechanic Supervisor Relationship Specialty Start Date End Date Regulo Ivy [address] [place] [phone] PCP - General 03/27/23 documented as of this encounter
--- OUTSIDE RECORDS SUMMARY | 2025-04-01 17:11 | XMS_ITS | Clinical Summary ---
Author Organization [facility] Address [address] [place] [address] Phone Care Team Providers Care Bench Patternmaker Metal Name Role Phone Regulo Kauffman NP Primary Care Provider [phone] Allergies Active Allergy Reactions Criticality Noted Date Comments Ibuprofen Wheezing 04/24/2023 Oxcarbazepine 04/24/2023 Unknown reaction Peanut Wheezing 05/05/2021 Gets stuck in my throat Quetiapine GI intolerance 04/24/2023 Vomiting Medications levothyroxine (Synthroid) 100 mcg tabletIndications: Mild persistent asthma without complication,Mixed hyperlipidemia,Ove ractive bladder,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 30 each 11 10/14/ 025 10/14 Active miconazole (Micatin) 2 % creamIndications:C andidiasis of genitalia in female Apply topically 2 (two) times a day. 30 g 1 025 11/07 Active nitroglycerin (Nitrostat) 0.4 mg SL tabletIndications: Chest pain at rest Place 1 tablet (0.4 mg total) under the tongue every 5 (five) minutes if needed for chest pain for up to 25 doses. 25 tablet 2 Active gabapentin (Neurontin) 100 mg capsuleIndications :Diabetes mellitus with peripheral vascular disease ([facility] V24, [facility] V28),Type 2 diabetes mellitus with stage 3a chronic kidney disease, without long-term current use of insulin ([facility] V24, [facility] V28),Sacroiliitis, not elsewhere classified ([facility] V24),Lumbar spondylosis Take 2 capsules (200 mg total) by mouth 2 (two) times a day. 120 each 025 02/05 Active levETIRAcetam (Keppra) 750 mg tabletIndications: Seizure ([facility] V24, [facility] V28) Take 2 tablets (1,500 mg total) by mouth 2 (two) times a day. 120 each 11 025 02/05 Active metFORMIN (Glumetza) 1,000 mg 24 hr tabletIndications: DM type 2 with diabetic peripheral neuropathy ([facility] V24, [facility] V28) Take 1 tablet (1,000 mg total) by mouth 1 (one) time each day with dinner. Do not crush, chew, or split. 28 tablet 11 025 03/04 Active psyllium husk, with sugar, (Metamucil Fiber Thin) 2.5 gram waferIndications:C hronic idiopathic constipation Take 2 wafers by mouth 1 (one) time each day if needed (constipation). 48 wafer 11 025 08/31 Active ergocalciferol (VITAMIN D-2) 1,250 mcg (50,000 unit) capsuleIndications :Vitamin D deficiency,Left hip pain,Tendonitis, Achilles, right,Primary osteoarthritis of both knees Take 1 capsule (50,000 Units total) by mouth 1 (one) time per week. 4 capsule 3 025 06/02 Active lisinopriL (PRINIVIL,ZESTRIL) 5 mg tabletIndications: Primary hypertension Take 1 tablet (5 mg total) by mouth 1 (one) time each day with breakfast. 28 each 03/05 Active pantoprazole (PROTONIX) 20 mg EC tabletIndications: Gastroesophageal reflux disease without esophagitis Take 1 tablet (20 mg total) by mouth 1 (one) time each day. 30 each 03/11 Active cloZAPine (ClozariL) 25 mg tabletIndications: Delusional disorder (CMS/HCC V24, CMS/HCC V28),Schizoaffecti ve disorder, bipolar type (CMS/HCC V24, CMS/HCC V28) Take 1 tablet (25 mg total) by mouth 2 (two) times a day for 14 days. 28 each 025 04/06 Active cloZAPine (CLOZARIL) 50 mg tabletIndications: Delusional disorder (CMS/HCC V24, CMS/HCC V28),Schizoaffecti ve disorder, bipolar type (CMS/HCC V24, CMS/HCC V28) Take 1 tablet (50 mg total) by mouth 2 (two) times a day. 60 tablet 04/07 Active LORazepam (Ativan) 0.5 mg tabletIndications: Anxiety,Schizoaffe ctive disorder, bipolar type (CMS/HCC V24, CMS/HCC V28),Delusion of ,Delusion al disorder (CMS/HCC V24, CMS/HCC V28) Take 1 tablet (0.5 mg total) by mouth 2 (two) times a day. Morning and evening dosing Max Daily Amount: 1 mg 180 tablet 3 025 06/22 Active lisinopriL (PRINIVIL,ZESTRIL) 5 mg tabletIndications: Primary hypertension Take 1 tablet (5 mg total) by mouth 1 (one) time each day. 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 60 each 03/05 Discontinued( Legacy Prescription Discontinued) pyridoxine (VITAMIN B-6) 25 mg tabletIndications: Polyneuropathy due to vitamin B6 deficiency ([facility] [place]) Take 1 tablet (25 mg total) by mouth 1 (one) time each day. 30 tablet 03/04 Discontinued( Prescriber Discontinued) fluticasone furoate-vilanteroL (Breo Ellipta) 100-25 mcg/dose inhalerIndications :Chronic obstructive pulmonary disease, unspecified COPD type ([facility] [place], [facility] V28) Inhale 1 puff by mouth 1 (one) time each day. 1 each 03/04 Discontinued( Non-complianc e) acetaminophen (TylenoL) 325 mg tabletIndications: DM type 2 with diabetic peripheral neuropathy ([facility] [place], [facility] V28),Left hip pain,Insomnia due to other mental disorder Take 2 tablets (650 mg total) by mouth 4 (four) times a day. 30 tablet 5 03/04 Discontinued( Therapy completed) psyllium husk, with sugar, (Metamucil Fiber Thin) 2.5 gram waferIndications:C hronic idiopathic constipation Take 2 wafers by mouth 1 (one) time each day. Take with full glass of water 60 wafer 5 03/04 Discontinued( Dose adjustment) ergocalciferol (VITAMIN D-2) 1,250 mcg (50,000 unit) capsuleIndications :Vitamin D deficiency,Left hip pain,Tendonitis, Achilles, right,Primary osteoarthritis of both knees Take 1 capsule (50,000 Units total) by mouth every 30 (thirty) days. 1 capsule 03/04 Discontinued( Reorder) clopidogreL (Plavix) 75 mg tabletIndications: Diabetes mellitus with peripheral vascular disease ([facility] V24, [facility] V28),Type 2 diabetes mellitus with stage 3a chronic kidney disease, without long-term current use of insulin ([facility] V24, [facility] V28),Sacroiliitis, not elsewhere classified ([facility] V24),Lumbar spondylosis,Seizur e ([facility] V24, [facility] V28) Take 1 tablet (75 mg total) by mouth 1 (one) time each day. 30 each 03/04 Discontinued( Stop Taking at Discharge) pantoprazole (PROTONIX) 40 mg EC tabletIndications: Gastroesophageal reflux disease without esophagitis Take 1 tablet (40 mg total) by mouth 1 (one) time each day before breakfast. Do not crush, chew, or split. 30 each 03/04 Discontinued fluPHENAZine (PROLIXIN) 10 mg tabletIndications: Anxiety,DM type 2 with diabetic peripheral neuropathy ([facility] V24, [facility] V28),Left hip pain,Insomnia due to other mental disorder,Schizoaff ective disorder, bipolar type ([facility] V24, [facility] V28),Chronic idiopathic constipation,Mild persistent asthma without complication,Neuro leptic-induced parkinsonism ([facility] V24),Dyspepsia Take 1 tablet (10 mg total) by mouth 2 (two) times a day. 60 each 11 025 03/06 Discontinued( Dose adjustment) metFORMIN (GLUCOPHAGE) 500 mg tabletIndications: DM type 2 with diabetic peripheral neuropathy (CMS/HCC V24, CMS/HCC V28),Left hip pain,Insomnia due to other mental disorder Take 2 tablets (1,000 mg total) by mouth 1 (one) time each day. At 17:00 60 each 03/04 Discontinued( Dose adjustment) nicotine polacrilex (Nicorette) 4 mg gumIndications:Anx iety,DM type 2 with diabetic peripheral neuropathy (CMS/HCC V24, CMS/HCC V28),Left hip pain,Insomnia due to other mental disorder,Schizoaff ective disorder, bipolar type (CMS/HCC V24, CMS/HCC V28),Chronic idiopathic constipation,Mild persistent asthma without complication,Neuro leptic-induced parkinsonism (CMS/HCC V24),Dyspepsia Place 1 each (4 mg total) into mouth between cheek and gum every 4 (four) hours if needed for smoking cessation. 100 each 03/03 Discontinued( Contact Move - Error) polyethylene glycol (MIRALAX) 17 gram packetIndications: Anxiety,DM type 2 with diabetic peripheral neuropathy (CMS/HCC V24, CMS/HCC V28),Left hip pain,Insomnia due to other mental disorder,Schizoaff ective disorder, bipolar type (CMS/HCC V24, CMS/HCC V28),Chronic idiopathic constipation,Mild persistent asthma without complication,Neuro leptic-induced parkinsonism (CMS/HCC V24),Dyspepsia Take 17 g by mouth 2 (two) times a day. 1020 g 03/04 Discontinued( Non-complianc e) traZODone (DESYREL) 100 mg tabletIndications: Insomnia due to other mental disorder Take 0.5 tablets (50 mg total) by mouth at bedtime. 14 tablet 03/04 Discontinued( Ineffective) LORazepam (ATIVAN) 0.5 mg tabletIndications: Anxiety Take 2 tablets (1 mg total) by mouth See administration instructions. 1 tablet at 12 noon, 1 tablet at night 90 tablet 03/05 Discontinued pantoprazole (PROTONIX) 20 mg EC tabletIndications: Gastroesophageal reflux disease without esophagitis Take 1 tablet (20 mg total) by mouth if needed for heartburn. 30 each 3 25 /2025 Discontinued( Reorder) LORazepam (ATIVAN) 0.5 mg tabletIndications: Anxiety Take 2 tablets (1 mg total) by mouth 2 (two) times a day. 1 tablet at 12 noon, 1 tablet at night Max Daily Amount: 2 mg 56 tablet 5 025 03/15 Discontinued( Reorder) cloZAPine (ClozariL) 25 mg tabletIndications: treatment-resistan t schizophrenia,will be titrating this up, weekly, in clinic. Take 1 tablet (25 mg total) by mouth at bedtime for 100 doses. 100 each 025 03/11 Discontinued( Reorder) fluPHENAZine (PROLIXIN) 5 mg tabletIndications: Schizoaffective disorder, bipolar type (CMS/HCC V24, CMS/HCC V28),Continuous auditory hallucinations Take 1 tablet (5 mg total) by mouth 2 (two) times a day for 15 days. 30 each 025 03/11 Discontinued( Reorder) cloZAPine (ClozariL) 25 mg tabletIndications: treatment-resistan t schizophrenia,will be titrating this up, weekly, in clinic. Take 1 tablet (25 mg total) by mouth at bedtime for 100 doses. Start 12.5 mg PO BID X 1 week, then increase to 25 mg PO BID X 1 week, then If well-tolerated, increase the total daily dose in increments of 50 mg per day to achieve a target dosage of 150 mg to 225 mg twice per day. 100 each 025 03/20 Discontinued( Dose adjustment) fluPHENAZine (PROLIXIN) 5 mg tabletIndications: Schizoaffective disorder, bipolar type (CMS/HCC V24, CMS/HCC V28),Continuous auditory hallucinations Take 1 tablet (5 mg total) by mouth See administration instructions for 15 days. 5 mg PO BID X 1 week then decrease to 5 mg PO QD X one week then stop. 21 tablet 025 03/20 Discontinued( Therapy completed) LORazepam (ATIVAN) 0.5 mg tabletIndications: Anxiety Take 2 tablets (1 mg total) by mouth 2 (two) times a day. 1 tablet at 12 noon, 1 tablet at night Max Daily Amount: 2 mg 56 tablet 5 025 03/24 Discontinued( Dose adjustment) Active Problems Problem Noted Date Diagnosed Date Therapeutic drug monitoring 03/06/2025 Assessment & Plan (03/06/2025 5:03 PM EST): Orders: CBC and differential; Standing Follow this conservative approach in our patients: For Agranulocytosis: ?Routine monitoring - We perform routine neutrophil monitoring at the following intervals: Weekly during the first six months of clozapine administration: ordered Every other week for the second six months: PCP should order this in 6 months Every four weeks after one year, for the duration of treatment If neutropenia develops during treatment - If ANC drops below 1500/microL, clozapine needs to be monitored more frequently, stopped temporarily, or discontinued, based on the severity of neutropenia [19]: Mild neutropenia (ANC 1000 to 1499/microL) - Continue treatment but increase monitoring frequency to three times per week. Moderate neutropenia (ANC 500 to 999/microL) - Interrupt clozapine treatment, increase monitoring to daily until ANC is 1000/microL at which point clozapine can be reinstituted. Severe neutropenia/agranulocytosis (ANC <500/microL) - Discontinue clozapine. Rechallenge should only occur if the benefits outweigh the risks, in consultation with hematology. (See 'Rechallenge after adverse effects' below.) Orders: ECG 12 lead; Future Get an EKG with each weekly clinic appt. Get orthostatic BP's, sitting and standing. Plasma Levels: We check plasma levels in the morning, ideally 8 to 10 hours following the previous evening dose. Given the pharmacokinetics of clozapine, differences of a few hours in the time of evening dosing or morning plasma sampling will lead to large differences in reported plasma levels. A clozapine plasma level in the range of 250 to 350 ng/mL is a reasonable target for a patient with schizophrenia. For those who have refractory symptoms, it is reasonable to target levels higher than 350 ng/mL, despite there being limited evidence to suggest greater efficacy. In our experience, some patients can benefit from higher levels, and this approach is consistent with recommendations from the Treatment Response and Resistance in Psychosis Working Group [17]. Delusional disorder 03/03/2025 Assessment & Plan (03/03/2025 12:40 PM EST): Елена has multiple delusional disorders. Currently it's the delusion of in a post-menopausal, not sexually active woman. At other times, she feels that people she looks up to have sex with her at night - those people are from her past, and some who present talks at her housing unit, or provide short bouts of Therapy. Need for juyocbbyha-rqkglgb-iwdhybvvx (Tdap) vac cine 03/03/2025 Assessment & Plan (03/03/2025 12:40 PM EST): She needs a pneumovax. Ordered Orders: Pneumococcal polysaccharide 23 valent (Pneumovax 23) 2yo and older Assessment & Plan (03/03/2025 12:40 PM EST): She needs a Tdap. Ordered. Orders: Tdap Tetanus diptheria acellular pertussis (Boostrix; Adacel) 7yo and older Exertional dizziness 03/03/2025 Assessment & Plan (03/03/2025 12:40 PM EST): This may be due to too much lorazepam at hs: Discussed with Елена: Елена agreed that we can reduce the dosing from lorazepam 0.5m tabs at noon, 1 tab at hs, to: New: lorazepam 0.5mg, 1 tab at noon, 1 tab at hs. Monitor for anxiety, dizziness. (Note that she is also on trazodone 50mg at hs, and gabapentin 200mg at hs). Delusion of 03/03/2025 Assessment & Plan (03/03/2025 12:40 PM EST): Елена is consistent in her delusion of . She asked multiple times to be tested. I asked her how she could be . She stated that she still has one ovary and a fallopian tube present. She states that Bernardino wants her , and had someone do In-Vitro fertilization at the hospital at night. I told her that there are laws that forbid anyone to do such a thing. That she could only have this if she were willing, and signed it. Furthermore, that no fertility specialist would offer such a service without a compelling reason, given the improbability of such a procedure being successful given her age. Елена was persistent in this delusion, and preservated on this. In an effort to at least give her a printed test of a negative result, so that she would not be obsessive and decompensate, a urine test was ordered. I feel that it would be in her best interest to see that she is NOT , in print. She may move onto a different delusion. Orders: HCG qualitative, urine; Future Witnessed seizure-like activity 02/06/2025 Assessment & Plan (02/06/2025 1:22 PM EDT): Елена had a thorough work-up at [facility] inpt stay, which was negative for seizure. The Keppra level was at the high end of normal, 02/03/25 of 56.3 (range 3.0 to 60.0). f/u with PCP (if unavailable, then with me), in 2 to 3 weeks for routine f/u. Note: Release of info form filled by Елена in clinic, for [facility]. Breakthrough seizure 02/03/2025 Continuous auditory hallucinations 01/23/2025 Assessment & Plan (03/06/2025 5:03 PM EST): Hopefully these will vale with clozaril, as we decrease and stop the prolixin. Orders: cloZAPine (ClozariL) 25 mg tablet; Take 1 tablet (25 mg total) by mouth at bedtime for 100 doses. fluPHENAZine (PROLIXIN) 5 mg tablet; Take 1 tablet (5 mg total) by mouth 2 (two) times a day for 15 days. Assessment & Plan (03/03/2025 12:40 PM EST): Елена heard voices, mostly of Bernardino. She asked about 'Donovan'. She is aware that 'Bladimir' has left [facility]. Assessment & Plan (01/23/2025 12:46 PM EDT): [...] doses. Do not crush, chew, or split. Flu vaccine need 01/23/2025 Assessment & Plan (01/23/2025 12:46 PM EDT): Pt would like a flu vaccine: attn: nursing Oropharyngeal dysphagia 01/13/2025 Assessment & Plan (03/25/2025 8:50 AM EST): Barium Swallow Study on 03/24/25: Impression = normal swallow function. Assessment & Plan (01/13/2025 8:35 AM EDT): [...] were not included. Sacroiliitis, not elsewhere classified Assessment & Plan (10/10/2024 9:40 AM EDT): [...] exp. DATE 2027-05 Lidocaine 1% plain (10mg/ml) Lot#[id number] / exp date August Left knee exposed. [...] wit h stage 3a chronic kidney disease 04/30/2024 Overview (04/30/2024): CKD 3a with DM 2 Assessment & Plan (09/03/2024 3:31 PM EDT): Last labs on 08/25/24 renal function improved: GFR >=60 mL/min/1.73m2 67 Now at CKD G2, will CTM Coronary artery disease with stable angina pecto ris 04/30/2024 Overview (04/30/2024): oronary Artery Disease (CAD) [...] pain, will CTM Mild dementia with anxiety 04/30/2024 Overview (04/30/2024): Dementia, Mild with Wandering [...] continue current medications and monitor. Schizoaffective disorder, bipolar type Assessment & Plan (03/18/2025 4:47 PM EST): Assessment: Par presents with complaint of dizziness and fatigue. VSS. Reviewed medication change plan and provided written copy: Prolixin: Take 1 tablet (5 mg total) by mouth See administration instructions for 15 days. 5 mg PO BID X 1 week then decrease to 5 mg PO QD X one week then stop., Starting Mon03/11/2025 - today - is 03/18/25, it has been one week, she will be starting the 5 mg PO daily this week. Clozaril: Take 1 tablet (25 mg total) by mouth at bedtime for 100 doses. Start 12.5 mg PO BID X 1 week, then increase to 25 mg PO BID X 1 week, then If well- tolerated, increase the total daily dose in increments of 50 mg per day to achieve a target dosage of 150 mg to 225 mg twice per day., Starting Mon03/11/2025 - today is 03/18/2025, it has been one week, she will be starting the 25 mg PO BID this week. Serial labs collected set of labs today, to include a: Pharmacogenomics Panel. I explained to Елена that this test, although it is a send out and will take time to get the results will tell us which psychiatric medications will work best for her and only her. She stated she is happy to hear that. Plan: continue taper of medications above and all other medications as prescribed and CTM. Assessment & Plan (03/11/2025 3:43 PM EST): [facility] certified court/medical interpreter accompanied and assisted this provider with the medication changes for Елена. Plan: - Taper off of Prolixin. She is currently on 10 mg PO BID, will taper down to slowly to avoid side effects, for example: agitation, insomnia, anxiety, or depression - concomitantly introduce Clozaril and slowly taper to affect, baseline CBC today for baseline and then once weekly for 6 months to monitor WBC and catch any potential leukopenia (Clozaril-induced leukopenia is usually mild and transient). Baseline ECG today in clinic and will monitor with regular ECG's for potential QTC prolongation, (clozapine can lead to a modest increase in QTc, typically around 8-10 ms. This effect is generally not significant enough to warrant discontinuation of the medication). Her follow-up psychiatry appointment is today at 16:00 and her f/u Neurology appointment is on 04/01/2025 at 13:15. Plan: this provider will communicate with both psych and neurology to provide a bridge to care for psych concerns r/t Елена's current Keppra dose, will continue to monitor. Assessment & Plan (03/06/2025 5:03 PM EST): Orders: cloZAPine (ClozariL) 25 mg tablet; Take 1 tablet (25 mg total) by mouth at bedtime for 100 doses. fluPHENAZine (PROLIXIN) 5 mg tablet; Take 1 tablet (5 mg total) by mouth 2 (two) times a day for 15 days. Per adjunct psychology professor Evy Bhardwaj, (appreciate the discussion regarding Omar's treatment, on the phone today) who has treated Omar at the last inpt psych admission, we can: decrease the prolixin to 5mg BID (on 03/10/25, for our Med Room Nurse). We will decrease and stop this the following 2 weeks. On 03/10/25, we will start: 12.5mg of clozapine at hs x 4 days. Check for: Dizziness, hypotension, sedation. Then: 25mg clozapine at hs x 4 days. See pt in clinic. Then: 50mg clozapine at hs x 7 days. See pt in clinic. By this time she should be seen in clinic by a psychiatrist. Attn: Social Service: pls let PCP and me know when her appts will be, and with whom. Sleepiness is the primary clinical ceiling side effect, so we simultaneously taper off any other sedating agents as clozapine dose is increasing. (I.e. lorazepam, gabapentin) Assessment & Plan (03/03/2025 12:40 PM EST): Елена has prolixin 10mg BID, and this seems to stabilize her. At her inpt psych stay, she had prn orders of olanzapine. SW has referred her to the Behavioral Health team locally, to see a psychiatrist. Assessment & Plan (01/23/2025 12:46 PM EDT): A variant of paytonfy, Rexulti has been started. Елена feels no [...] idiopathic epile psy, intractable, without status epilepticus 04/30/2024 Overview (04/30/2024): Epilepsy, Generalized, Intractable without Epilepticus Assessment & Plan (03/06/2025 5:03 PM EST): Will refer her for an urgent clinic appt with neurology, since clozapine can increase seizure risk. The very supratherapeutic keppra levels can also negatively affect the body, with clozaril, as per discussion with Elpidio Bhardwaj NP. While placing an order for Neurology, it seems that patient may already have a Neurology visit on 03/20/25. Specialist Cylinder Press Operator Apprentice, please check to see if this is correct. If not, let me know and I will send another referral, urgently. Assessment & Plan (03/03/2025 12:40 PM EST): No recent seizure activity. Continue hi dose keppra. Assessment & Plan (09/05/2024 5:05 PM EDT): Participant cannot remember her last reported tonic/clonic seizure. She states she gets ocular seizures from bright lights, condition is chronic, stable, controlled with medication , will continue to monitor. Hearing loss, sensorineural 04/30/2024 Assessment & Plan (09/03/2024 12:54 PM EDT): Mild, Par agreed to [facility] audiology referral, ordered, will CTM Hyperlipidemia 04/30/2024 [...] 100mg to 50mg. Attn: Med Room Nurse: leticia give trazodone 50mg, next bubble pack week. [...] and monitor. Migraine 04/30/2024 Assessment & Plan (03/03/2025 12:40 PM EST): No current migraine. Monitor. Assessment & Plan (09/03/2024 12:55 PM EDT): In remission, will CTM DM type 2 with diabetic peripheral neuropathy Overview (04/30/2024): Neuropathy, Peripheral with DM 2 Assessment & Plan (03/06/2025 5:03 PM EST): With clozapine, DM-II can worsen. PCP and I: will keep an eye on her diabetic control. RD: please evaluate and discuss a healthy diet. Assessment & Plan (03/03/2025 12:40 PM EST): Discussed at length that she is not on insulin, and does not need multiple glucose checks, daily. Explained that she had glucose testing multiple times at the hospital because that may be their protocol. She is agreeable to getting an A1C. She still wants to check her glucose, but I let her know that she wouldn't need to check glucose unless her post-prandial glucose was well over 200, consistently. Assessment & Plan (09/03/2024 12:57 PM EDT): [...] provided by [facility] therapy department and refer back to [facility] [...] on imaging. Par agreed to referral to [facility] therapy department; ordered. Neuroleptic-induced parkinsonism 04/30/2024 Overview (04/30/2024): Tremors Assessment & Plan (12/24/2024 12:32 PM EDT): Continue current meds. Assessment & Plan (12/30/2024 2:36 PM EDT): >>ASSESSMENT AND PLAN FOR NEUROLEPTIC-INDUCED PARKINSONISM ([facility] V24) WRITTEN ON 09/03/2024 3:50 PM BY REGULO KAUFFMAN NP No tremor seen on exam during this encounter. Chronic condition, stable and asymptomatic, will continue current medications and monitor. >>ASSESSMENT AND PLAN FOR DRUG-INDUCED PARKINSONISM ([facility] V24) WRITTEN ON 09/03/2024 12:58 PM BY REGULO KAUFFMAN NP Parkinsonian symptoms not present during this encounter, will CTM Diabetes mellitus with peripheral vascular disea se 04/30/2024 Overview (04/30/2024): Peripheral Vascular Disease with [...] will continue current medications and refer to [facility] Podiatry for at risk foot care. Callus 04/30/2024 Assessment & Plan (09/03/2024 3:44 PM EDT): Chronic condition, stable and asymptomatic, will continue current medications and refer to [facility] Podiatry for at risk foot care. Bilateral [...] continue current medications and monitor. Obesity, morbid 04/30/2024 Assessment & Plan (01/07/2025 5:02 PM EDT): Referral requested by Елена to RD. Assessment & Plan (09/03/2024 3:25 PM EDT): On exam this encounter: 44.1 kg/m Body Mass Index (Class 3 obesity). 7.3 lb weight gain since March 2024, will refer Omar back to [facility] [address] and CTM Resolved Problems Problem Noted Date Diagnosed Date Resolved Date Medication management 01/23/20252024 Assessment & Plan (02/06/2025 1:22 PM EDT): [...] was trialed together, by psychiatry at the [facility], but she continued to deteriorate with severe, intrusive auditory hallucinations.] Note: -Елеан said that she's had [facility] in the past, as well as Depakote. [...] being seen by a psychiatrist at the [facility], or a neuro-psychiatrist if one if available. [...] Ordered the lowest dose of invega to [facility] Room nurse. Periapical abscess 08/28/2024 Assessment & Plan (09/03/2024 3:29 PM EDT): Resolved with ABX, PCN V 500 mg PO TID X 10 days, therapy completes tomorrow. Tooth extraction last week by [facility] dental provider. Assessment & Plan (08/28/2024 1:48 PM EDT): Par presents to clinic s/p ED for dental [...] 90 mL (90 mL intravenous Given 08/25/24 162) Discharge medications: penicillin v potassium (VEETID) 500 [...] exam today in clinic. Par will see [facility] dentist tomorrow morning and depending what he is able to to, possible referral to [facility] surgeon, WTJj. Other specified disorders of [...] while, no pain or bleeding. Hyperglyceridemia, pure 04/30/2024 05/2 Dedrick moulton 04/30/2024 09/03/2024 Overview (04/30/2024): Dedrick Moulton, Left Inguinal Area Encounters Date Type Department Care Team Description 04/01/2025 1:15 PM EST [facility]ACE External Visit [facility] [address] [place] [phone] 04/01/2025 8:30 AM EST PACE Home Care / [facility] Home [facility] [address] [place] [phone] Carmen Hartmann 03/31/2025 4:30 PM EST PACE Home Care / [facility] Visit [facility] [address] [place] [phone] Ashley Eastman 03/31/2025 8:30 AM EST PACE Home Care / [facility] [address] [place] [phone] Carmen Hartmann 03/30/2025 4:30 PM EST PACE Home Care / [facility] Home Visit [facility] [address] [place] [phone] Marysol Diaz 03/30/2025 8:30 AM EST PACE Home Care / [facility] Home Visit [facility] [address] [place] [phone] Marysol Diaz 03/29/2025 4:15 PM EST PACE Home Care / [facility] Home Visit [facility] [address] [place] [phone] Marysol Diaz 03/29/2025 8:30 AM EST PACE Home Care / [facility] Home Visit [facility] [address] [place] [phone] Marysol Diaz 03/28/2025 4:30 PM EST PACE Home Care / [facility] [address] [place] [phone] Ashley Eastman 03/28/2025 10:00 AM EST PACE Home Care / [facility] Home [facility] [address] [place] [phone] Carmen Hartmann 03/28/2025 8:00 AM EST PACE Home Care / P[facility] Home [facility] [address] [place] [phone] Carmen Hartmann 03/28/2025 Lab [facility] [address] [place] [phone] Regulo Kauffman NP Constipation, unspecified constipation type 03/27/2025 4:30 PM EST PACE Home Care / P[facility] Home [facility] [address] [place] [phone] Ashley Eastman 03/27/2025 2:20 PM EST [facility] External Visit [facility] [address] [place] [address] 03/27/2025 8:30 AM EST PACE Home Care / [facility] Home [facility] [address] [place] [phone] Carmen Hartmann 03/26/2025 4:30 PM EST PACE Home Care / P[facility] Home Visit [facility] [address] [place] [phone] Ashley Eastman 03/26/2025 8:30 AM EST PACE Home Care / P[facility] Home [facility] [address] [place] [phone] Carmen Hartmann 03/25/2025 4:30 PM EST PACE Home Care / P[facility] Home Visit [facility] [address] [place] [phone] Ashley Eastman 03/25/2025 8:30 AM EST PACE Home Care / P[facility] Home Visit [facility] [address] [place] [phone] Carmen Hartmann 03/24/2025 4:30 PM EST PACE Home Care / P[facility] Home [facility] [address] [place] [phone] Ashley Eastman 03/24/2025 9:45 AM EST - 03/24/2025 11:59 PM EST Hospital Encounter [facility] Xray [address] [place] [address] Lakia Hou, CCC-GUARDIAN AD LITEM Dysphagia, oropharyngeal phase Discharge Disposition: Home or Self Care 03/24/2025 9:30 AM EST PACE Home Care / P[facility] Home [facility] [address] [place] [phone] Winter Connor 03/24/2025 8:30 AM EST PACE Home Care / PACE Home Visit [facility] [address] [place] [phone] Carmen Hartmann 03/23/2025 12:00 PM EST PACE Home Care / [facility] [address] [place] [phone] Dena Chavez 03/22/2025 4:45 PM EST PACE Home Care / [facility] [address] [place] [phone] Titi Thomas 03/22/2025 11:30 AM EST PACE Home Care / [facility] [address] [place] [phone] Dena Chavez 03/21/2025 4:30 PM EST PACE Home Care / [facility] Visit [facility] [address] [place] [phone] Ashley Eastman 03/21/2025 9:30 AM EST PACE Home Care / [facility] Home [facility] [address] [place] [address] Ralph Loyola 03/21/2025 8:00 AM EST PACE Home Care / [facility] [address] [place] [phone] Carmen Hartmann 03/21/2025 Telephone [facility] [address] [place] [phone] Bethany Mccabe, RN 03/21/2025 Telephone [facility] [address] [place] [phone] Bethany Mccabe, RN 03/21/2025 Lab [facility] [address] [place] [phone] Regulo Kauffman NP Constipation, unspecified constipation type 03/20/2025 4:30 PM EST PACE Home Care / [facility] [address] [place] [phone] Ashley Eastman 03/20/2025 8:30 AM EST PACE Home Care / [facility] [address] [place] [phone] Carmen Hartmann 03/19/2025 4:30 PM EST PACE Home Care / [facility] [address] [place] [phone] Ashley Eastman 03/19/2025 8:30 AM EST PACE Home Care / [facility] [address] [place] [phone] Carmen Hartmann 03/18/2025 4:30 PM EST PACE Home Care / P[facility] Home [facility] [address] [place] [phone] Ashley Eastman 03/18/2025 1:45 PM EST [facility] Assessment [facility] [place] [facility] [address] [place] [phone] Bernie Segovia RN Schizoaffective disorder, bipolar type (CMS/HCC V24, CMS/HCC V28) (Primary Dx) 03/18/2025 1:30 PM EST Office [facility] [address] [place] [phone] Regulo Kauffman NP Schizoaffective disorder, bipolar type (CMS/HCC V24, CMS/HCC V28); Anxiety; Major depressive disorder with single episode, in partial remission (CMS/HCC V24) 03/18/2025 9:30 AM EST [facility] External Visit [facility] [address] [place] [phone] 03/18/2025 8:30 AM EST PACE Home Care / PACE Home Visit [facility] [address] [place] [phone] Carmen Hartmann 03/18/2025 Plan of Care Documentation [facility] [place] [facility] [address] [place] [phone] 03/17/2025 4:30 PM EST PACE Home Care / PACE Home Visit [facility] [address] [place] [phone] Ashley Eastman 03/17/2025 8:30 AM EST PACE Home Care / PACE Home Visit [facility] [address] [place] [phone] Carmen Hartmann 03/16/2025 4:30 PM EST PACE Home Care / PACE Home Visit [facility] [address] [place] [phone] Marysol Diaz 03/16/2025 8:30 AM EST PACE Home Care / [facility] Visit [facility] [address] [place] [phone] Marysol Diaz 03/15/2025 4:15 PM EST PACE Home Care / [facility] Visit [facility] [address] [place] [phone] Winter Connor 03/15/2025 8:30 AM EST PACE Home Care / [facility] Home Visit [facility] [address] [place] [phone] Marysol Diaz 03/14/2025 4:30 PM EST PACE Home Care / [facility] Home Visit [facility] [address] [place] [phone] Ashley Eastman 03/14/2025 9:15 AM EST PACE Home Care / [facility] Home Visit [facility] [address] [place] [phone] Carmen Hartmann 03/14/2025 8:00 AM EST PACE Home Care / [facility] Visit [facility] [address] [place] [phone] Carmen Hartmann 03/14/2025 Office Visit - [employer] [facility]ation [facility] [place] [facility] [address] [place] [phone] Michelle Castillo MD 03/14/2025 Lab [facility] [place] [facility] [address] [place] [phone] Regulo Kauffman NP Constipation, unspecified constipation type 03/13/2025 4:30 PM EST PACE Home Care / [facility] [address] [place] [phone] Dacia Beavers 03/13/2025 8:30 AM EST PACE Home Care / PACE Home Visit [facility] [address] [place] [phone] Seymour Obando 03/12/2025 4:30 PM EST PACE Home Care / PACE Home Visit [facility] [address] [place] [phone] Ashley Eastman 03/12/2025 11:30 AM EST Clinical Support [facility] [address] [place] [phone] Maddie Hanks RN 03/12/2025 8:30 AM EST PACE Home Care / PACE Home Visit [facility] [address] [place] [phone] Carmen Hartmann 03/11/2025 4:30 PM EST PACE Home Care / PACE Home Visit [facility] [address] [place] [phone] Ashley Eastman 03/11/2025 4:00 PM EST PACE External Visit [facility] [address] [place] [phone] 03/11/2025 1:00 PM EST [facility] [address] [place] [phone] Regulo Kauffman, ALONSO Schizoaffective disorder, bipolar type (CMS/HCC V24, CMS/HCC V28) (Primary Dx); Anxiety; Major depressive disorder with single episode, in partial remission (CMS/HCC V24); Gastroesophageal reflux disease without esophagitis; Continuous auditory hallucinations 03/11/2025 8:30 AM EST PACE Home Care / PACE Home [facility] [address] [place] [phone] Carmen Hartmann 03/10/2025 4:30 PM EST PACE Home Care / PACE Home Visit [facility] [address] [place] [phone] Ashley Eastman 03/10/2025 1:30 PM EST Treatment [facility] [address] [place] [phone] Georgie Rene PTA 03/10/2025 8:30 AM EST PACE Home Care / [facility] Home [facility] [address] [place] [phone] Carmen Hartmann 03/09/2025 5:15 PM EST PACE Home Care / P[facility] Home Visit [facility] [address] [place] [phone] Dacia Beavers 03/09/2025 8:15 AM EST PACE Home Care / [facility] Home Visit [facility] [address] [place] [phone] Cherry Jiang 03/08/2025 5:45 PM EST PACE Home Care / P[facility] Home Visit [facility] [address] [place] [phone] Ashley Eastman 03/08/2025 12:30 PM EST PACE Home Care / [facility] [address] [place] [phone] Dena Chavez 03/08/2025 8:15 AM EST PACE Home Care / [facility] [address] [place] [phone] Titi Thomas 03/07/2025 4:30 PM EST PACE Home Care / [facility] Home Visit [facility] [address] [place] [phone] Ashley Eastman 03/07/2025 12:30 PM EST Clinical Support [facility] [address] [place] [phone] 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, HEIDI Adult general medical examination (Primary Dx) 03/07/2025 10:00 AM EST PACE Home Care / PACE Home Visit [facility] [address] [place] [phone] Carmen Hartmann 03/07/2025 8:00 AM EST PACE Home Care / PACE [facility] [address] [place] [phone] Carmen Hartmann 03/07/[address] [facility] PACE Clinic [address] [place] [phone] Regulo Kauffman NP Constipation, unspecified constipation type 03/07/[address] [facility] Occupational Therapy [address] [place] [phone] Clemencia Napier, ADITYA Schizophrenia in partial remission with history of multiple episodes ([facility] V24, [facility] V28) 03/06/2025 4:30 PM EST PACE Home Care / PACE Home Visit [facility] [address] [place] [phone] Ashley Eastman 03/06/2025 10:00 AM EST Office Visit [facility] [address] [phone] Michelle Castillo MD DM type 2 with diabetic peripheral neuropathy ([facility] V24, [facility] V28) (Primary Dx); Schizoaffective disorder, bipolar type ([facility] V24, CMS/[facility] V28); Continuous auditory hallucinations; Therapeutic drug monitoring; Primary hypertension; Generalized idiopathic epilepsy, intractable, without status epilepticus (CMS/[facility] V24, CMS/[facility] V28) 03/06/2025 PACE Admissions [facility] P[facility] Clinic [address] [place] [phone] Justa Leon RN Schizoaffective disorder, bipolar type ([facility] V24, [facility] V28) (Primary Dx) 03/05/2025 4:30 PM EST PACE Home Care / PACE Home [facility] [address] [place] [phone] Ashley Eastman 03/05/2025 8:30 AM EST PACE Home Care / P[facility] Home Visit [facility] [address] [place] [phone] Carmen Hartmann 03/04/2025 4:30 PM EST PACE Home Care / PACE Home Visit [facility] [address] [place] [phone] Ashley Eastman 03/04/2025 2:15 PM EST Clinical Support [facility] [address] [place] [phone] Bernie Segovia RN DM type 2 with diabetic peripheral neuropathy ([facility] V24, [facility] V28) (Primary Dx) 03/04/2025 8:30 AM EST PACE Home Care / PACE Home [facility] [address] [place] [phone] Carmen Hartmann 03/04/2025 Telephone [facility] [address] [place] [phone] Bernie Segovia RN 03/03/2025 4:30 PM EST PACE Home Care / PACE Home Visit [facility] [address] [place] [phone] Ashley Eastman 03/03/2025 11:30 AM EST [facility] [address] [place] [phone] Michelle Castillo MD Need for ijojufmlpr-djjnbzx-bb rtussis (Tdap) vaccine (Primary Dx); Generalized idiopathic epilepsy, intractable, without status epilepticus (CMS/HCC V24, CMS/HCC V28); Migraine without aura and without status migrainosus, not intractable; DM type 2 with diabetic peripheral neuropathy (CMS/[facility] V24, [facility] V28); Exertional dizziness; Delusion of ; Need for pneumococcal vaccination; Schizoaffective disorder, bipolar type ([facility] V24, [facility] V28); Continuous auditory hallucinations; Delusional disorder ([facility] V24, [facility] V28) 03/03/2025 8:30 AM EST PACE Home Care / PACE [facility] [address] [place] [phone] Carmen Hartmann 03/02/2025 4:30 PM EST PACE Home Care / P[facility] Home [facility] [address] [place] [phone] Marysol Diaz 03/01/2025 4:15 PM EST PACE Home Care / PACE Home [facility] [address] [place] [phone] Marysol Diaz 03/01/2025 8:30 AM EST PACE Home Care / P[facility] Home [facility] [address] [place] [phone] Ashley Eastman 03/01/2025 1:00 AM EST Clinical Support [facility] [address] [place] [phone] Becca Davis LPN 02/28/2025 4:30 PM EST PACE Home Care / P[facility] Home [facility] [address] [place] [phone] Ashley Eastman 02/28/2025 9:30 AM EST PACE Home Care / [facility] [address] [place] [phone] Ralph Loyola 02/28/2025 8:00 AM EST PACE Home Care / PACE Home [facility] [address] [place] [phone] Prabhjot Hartmannley 02/28/[address] [phone] Regulo Kauffman NP Constipation, unspecified constipation type 02/27/2025 4:30 PM EST PACE Home Care / PACE Home Visit [facility] [address] [place] [phone] Ashley Eastman 02/21/[address] [phone] Regulo Kauffman NP Constipation, unspecified constipation type 02/14/[address] [phone] Regulo Kauffman NP Constipation, unspecified constipation type 02/11/2025 PACE Admissions [address] [phone] Justa Leon, RN Schizoaffective disorder, unspecified type ([facility] V24, [facility] V28) (Primary Dx); Paranoia ([facility] V24, [facility] V28) 02/10/2025 PACE Admissions [address] [phone] Justa Leon, RN Paranoia ([facility] V24, [facility] V28) (Primary Dx); Mild dementia with anxiety, unspecified dementia type ([facility] V24, [facility] V28); Schizoaffective disorder, bipolar type ([facility] V24, [facility] V28); Abnormal urinalysis 02/09/2025 1:56 PM EDT - 02/11/2025 2:53 PM EDT Emergency [facility] Emergency [address] [place] [phone] Sd Raman MD Landry, Jonathan P, MD Gordon, Ruth, MD Corrado, Adam D, MD Deslouches, Joshua, MD Ziebro, John, MD Paranoia ([facility] V24, [facility] [facility] V[facility]) (Primary Dx); Bipolar affective disorder, remission status unspecified ([facility] V24, [facility] V28); Abnormal urinalysis Discharge Disposition: [facility] 02/09/2025 12:00 PM EDT PACE Home Care / P[facility] Home Visit [facility] [address] [place] [phone] Dena Chavez 02/09/2025 7:30 AM EDT PACE Home Care / PACE Home Visit [facility] [address] [place] [phone] Ingrid Corea 02/08/2025 5:00 PM EDT PACE Home Care / PACE Home Visit [facility] [address] [place] [phone] Dacia Beavers 02/08/2025 12:00 PM EDT PACE Home Care / PACE Home Visit [facility] [address] [place] [phone] Dena Chavez 02/08/2025 9:15 AM EDT PACE Home Care / PACE Home Visit [facility] [address] [place] [phone] Dacia Beavers 02/07/2025 4:45 PM EDT Clinical Support [facility] [place] [facility] [address] [place] [phone] 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, 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 (Primary Dx) 02/07/2025 4:30 PM EDT PACE Home Care / PACE Home Visit [facility] [address] [place] [phone] Ashley Eastman 02/07/2025 9:30 AM EDT PACE Home Care / PACE Home Visit [facility] [address] [place] [phone] Ralph Loyola 02/07/2025 8:00 AM EDT PACE Home Care / PACE Home Visit [facility] [address] [place] [phone] Carmen Hartmann 02/07/2025 Lab [facility] Occupational Therapy [address] [place] [address] [phone] Karthikeyan, Clemencia, OT Schizophrenia in partial remission with history of multiple episodes ([facility] V24, [facility] V28) 02/07/2025 Lab [facility] [address] [place] [phone] Regulo Kauffman NP Constipation, unspecified constipation type 02/06/2025 5:00 PM EDT PACE Home Care / [place] [facility] [place] [facility] [place] [facility] [address] [place] [phone] Ashley Eastman 02/06/2025 11:00 AM EDT Office Visit [facility] [address] [place] [address] [phone] Michelle Castillo MD Medication management (Primary Dx); Witnessed seizure-like activity ([facility] V24, [facility] V28) 02/06/2025 8:30 AM EDT PACE Home Care / [facility] Home Visit [facility] [place] [facility] [address] [place] [address] [phone] Carmen Hartmann 02/06/2025 PACE On-Call [facility] [address] [place] [address] [phone] Michelle Castillo MD 02/05/2025 PACE On-Call [facility] PACE Clinic [address] [place] [address] [phone] Juliet Scott NP 02/04/2025 8:30 AM EDT PACE Home Care / PACE Home Visit [facility] [address] [place] [phone] Titi Thomas 02/03/2025 2:45 PM EDT - 02/05/2025 5:00 PM EDT Hospital Encounter [facility] [address] [place] [phone] Chava Flannery MD Jones, Christopher, MD Santoyo-Pacheco, Omar D, MD Breakthrough seizure ([facility], [facility] V28) (Primary Dx); Localized swelling of left lower extremity; TIA (transient ischemic attack); Diabetes mellitus with peripheral vascular disease ([facility], [facility] V28); Type 2 diabetes mellitus with stage 3a chronic kidney disease, without long-term current use of insulin ([facility], [facility] V28); Sacroiliitis, not elsewhere classified ([facility]24); Lumbar spondylosis; Seizure ([facility], [facility] V28) Discharge Disposition: Home-Health Care [facility] 02/03/2025 12:45 PM EDT Treatment [facility] Occupational Therapy [address] [place] [phone] Shantelle Dumont COTA 02/03/2025 11:30 AM EDT Office Visit [facility] [address] [place] [phone] Regulo Kauffman NP Left medial knee pain (Primary Dx) 02/03/2025 8:30 AM EDT PACE Home Care / PACE Home Visit [facility] In Home Nursing and Aide Services [address] [place] [phone] Titi Thomas 02/03/2025 PACE Admissions [facility] PACE Clinic [address] [place] [phone] Justa Leon RN Breakthrough seizure ([facility], [facility] V28) (Primary Dx); Transient ischemic attack (TIA) 02/02/2025 8:30 AM EDT PACE Home Care / PACE Home Visit [facility] In Home Nursing and Aide Services [address] [place] [phone] Marysol Diaz 02/01/2025 5:30 PM EDT PACE Home Care / [facility] [address] [place] [phone] Marysol Diaz 02/01/2025 8:30 AM EDT PACE Home Care / PACE Home Visit [facility] [place] [facility] [address] [place] [phone] Marysol Diaz 01/31/2025 4:30 PM EDT PACE Home Care / PACE Home Visit [facility] [place] [facility] [address] [place] [phone] Ashley Eastman 01/31/2025 9:30 AM EDT PACE Home Care / PACE Home Visit [facility] [place] [facility] [address] [place] [phone] Ralph Loyola 01/31/2025 8:00 AM EDT PACE Home Care / PACE Home Visit [facility] [place] [facility] [address] [place] [phone] Carmen Hartmann 01/31/2025 [facility] [place] [facility] [address] [place] [phone] Regulo Kauffman, ALONSO Constipation, unspecified constipation type 01/30/2025 4:30 PM EDT PACE Home Care / PACE Home Visit [facility] [address] [place] [phone] Ashley Eastman 01/30/2025 8:30 AM EDT PACE Home Care / [facility] Home Visit [facility] [address] [place] [phone] Carmen Hartmann 01/29/2025 4:30 PM EDT PACE Home Care / [facility] Home Visit [facility] [place] [facility] [address] [place] [phone] Ashley Eastman 01/29/2025 2:00 PM EDT Clinical Support [facility] [place] [facility] [address] [place] [phone] Celsa Perez RN 01/29/2025 8:30 AM EDT PACE Home Care / PACE Home Visit [facility] [address] [place] [phone] Carmen Hartmann 01/28/2025 4:30 PM EDT PACE Home Care / PACE Home Visit [facility] [place] [facility] [address] [place] [phone] Ashley Eastman 01/28/2025 8:30 AM EDT PACE Home Care / PACE Home Visit [facility] [place] [facility] [address] [place] [phone] Carmen Hartmann 01/27/2025 4:30 PM EDT PACE Home Care / PACE Home Visit [facility] [address] [place] [phone] Ashley Eastman 01/27/2025 8:30 AM EDT PACE Home Care / PACE Home Visit [facility] [address] [place] [phone] Carmen Hartmann 01/26/2025 5:30 PM EDT PACE Home Care / PACE Home Visit [facility] [place] [facility] [address] [place] [phone] Cherry Jiang 01/26/2025 12:00 PM EDT PACE Home Care / PACE Home Visit [facility] [address] [place] [phone] Dena Chavez 01/25/2025 6:00 PM EDT PACE Home Care / PACE Home Visit [facility] [address] [place] [phone] Dacia Beavers 01/25/2025 8:30 AM EDT PACE Home Care / PACE Home Visit [facility] [address] [place] [phone] Dacia Beavers 01/24/2025 4:30 PM EDT PACE Home Care / PACE Home Visit [facility] [address] [place] [phone] Ashley Eastman 01/24/2025 9:15 AM EDT PACE Home Care / PACE Home Visit [facility] [address] [place] [phone] Carmen Hartmann 01/24/2025 8:00 AM EDT PACE Home Care / PACE Home Visit [facility] [address] [place] [phone] Carmen Hartmann 01/24/2025 Lab [facility] [place] [facility] [address] [place] [phone] Regulo Kauffman NP Constipation, unspecified constipation type 01/23/2025 4:30 PM EDT PACE Home Care / PACE Home Visit [facility] [address] [place] [phone] Ashley Eastman 01/23/2025 11:00 AM EDT Office Visit [facility] [place] [facility] [address] [place] [phone] Michelle Castillo MD Insomnia due to other mental disorder (Primary Dx); Schizoaffective disorder, bipolar type (CMS/HCC V24, CMS/HCC V28); Continuous auditory hallucinations; Medication management; Left medial knee pain; Flu vaccine need 01/23/2025 8:30 AM EDT PACE Home Care / PACE Home Visit [facility] [address] [place] [phone] Carmen Hartmann 01/22/2025 4:30 PM EDT PACE Home Care / [facility] [address] [place] [phone] Dena Chavez 01/22/2025 8:30 AM EDT PACE Home Care / [facility] Visit [facility] [address] [place] [phone] Carmen Hartmann 01/21/2025 4:30 PM EDT PACE Home Care / [facility] Home Visit [facility] [place] [facility] [address] [place] [phone] Dena Chavez 01/21/2025 8:30 AM EDT PACE Home Care / [facility] Visit [facility] [place] [facility] [address] [place] [phone] Carmen Hartmann 01/20/2025 4:30 PM EDT PACE Home Care / P[facility] Home Visit [facility] [address] [place] [phone] Ashley Eastman 01/20/2025 8:30 AM EDT PACE Home Care / [facility] Home Visit [facility] [place] [facility] [address] [place] [phone] Carmen Hartmann 01/19/2025 5:00 PM EDT PACE Home Care / [facility] Home Visit [facility] [place] [facility] [address] [place] [phone] Seymour Obando 01/19/2025 4:30 PM EDT PACE Home Care / [facility] Home Visit [facility] [place] [facility] [address] [place] [phone] Seymour Obando 01/19/2025 12:00 PM EDT PACE Home Care / [facility] Home Visit [facility] [place] [facility] [address] [place] [phone] Dacia Beavers 01/19/2025 8:30 AM EDT PACE Home Care / PACE Home Visit [facility] [place] [facility] [address] [place] [phone] Dena Chavez 01/18/2025 4:30 PM EDT PACE Home Care / PACE Home Visit [facility] [address] [place] [phone] Marysol Diaz 01/18/2025 8:30 AM EDT PACE Home Care / PACE Home Visit [facility] [address] [place] [phone] Marysol Diaz 01/18/2025 [facility] [facility] [place] [facility] [address] [place] [phone] Spring Reyes LPN 01/17/2025 4:30 PM EDT PACE Home Care / PACE Home Visit [facility] [address] [place] [phone] Ashley Eastman 01/17/2025 9:30 AM EDT PACE Home Care / PACE Home Visit [facility] [address] [place] [phone] Titi Thomas 01/17/2025 8:00 AM EDT PACE Home Care / PACE Home Visit [facility] [address] [place] [phone] Titi Thomas 01/17/2025 [facility] [place] [facility] [address] [place] [phone] Regulo Kauffman NP Constipation, unspecified constipation type 01/16/2025 4:30 PM EDT PACE Home Care / PACE Home Visit [facility] [address] [place] [phone] Ashley Eastman 01/16/2025 8:30 AM EDT PACE Home Care / PACE Home Visit [facility] [address] [place] [phone] Titi Thomas 01/15/2025 4:30 PM EDT PACE Home Care / PACE Home Visit [facility] [address] [place] [phone] Ashley Eastman 01/15/2025 8:30 AM EDT PACE Home Care / PACE Home Visit [facility] [address] [place] [phone] Carmen Hartmann 01/14/2025 4:30 PM EDT PACE Home Care / PACE Home Visit [facility] [address] [place] [phone] Ashley Eastman 01/14/2025 1:30 PM EDT Treatment [facility] [address] [place] [phone] Rosaura Mauro, PT 01/14/2025 11:00 AM EDT Clinical Support [facility] [place] [facility] [address] [place] [phone] Bethany Mccabe RN 01/14/2025 8:30 AM EDT PACE Home Care / PACE Home Visit [facility] [address] [place] [phone] Carmen Hartmann 01/13/2025 4:30 PM EDT PACE Home Care / PACE Home Visit [facility] [address] [place] [phone] Ashley Eastman 01/13/2025 8:30 AM EDT PACE Home Care / PACE Home Visit [facility] [address] [place] [phone] Titi Thomas 01/12/2025 5:45 PM EDT PACE Home Care / [facility] Visit [facility] [address] [place] [phone] Dena Chavez 01/12/2025 12:00 PM EDT PACE Home Care / [facility] Home Visit [facility] [place] [facility] [address] [place] [phone] Dena Chavez 01/12/2025 9:15 AM EDT PACE Home Care / [facility] Home Visit [facility] [address] [place] [phone] Dena Chavez 01/11/2025 5:00 PM EDT PACE Home Care / P[facility] Home Visit [facility] [address] [place] [phone] Dacia Beavers 01/11/2025 12:00 PM EDT PACE Home Care / PACE Home Visit [facility] [place] [facility] [address] [place] [phone] Dena Chavez 01/11/2025 9:45 AM EDT PACE Home Care / [facility] Home Visit [facility] [address] [place] [phone] Dacia Beavers 01/10/2025 4:30 PM EDT PACE Home Care / [facility] Home Visit [facility] [address] [place] [phone] Ashley Eastman 01/10/2025 11:00 AM EDT PACE Home Care / [facility] Home Visit [facility] [address] [place] [phone] Ralph Loyola 01/10/2025 11:00 AM EDT Office Visit [facility] [place] [address] [place] [phone] Analisa Perez, ALONSO Oropharyngeal dysphagia (Primary Dx); Chronic idiopathic constipation; Gastroesophageal reflux disease, unspecified whether esophagitis present; History of adenomatous polyp of colon 01/10/2025 10:00 AM EDT PACE Home Care / PACE Home Visit [facility] [address] [place] [phone] Carmen Hartmann 01/10/2025 8:00 AM EDT PACE Home Care / PACE Home Visit [facility] [address] [place] [phone] Carmen Hartmann 01/10/2025 Telephone [facility] [place] [address] [facility] [address] [place] [phone] Analisa Perez NP 01/10/2025 [facility] [address] [place] [phone] Regulo Kauffman NP Constipation, unspecified constipation type 01/10/2025 Lab [facility] Occup[facility] [address] [place] [phone] Clemencia Napier, OT Schizophrenia in partial remission with history of multiple episodes (CMS/HCC V24, CMS/HCC V28) 01/09/2025 4:30 PM EDT PACE Home Care / PACE Home Visit [facility] [address] [place] [address] [phone] Ashley Eastman 01/09/2025 8:30 AM EDT PACE Home Care / PACE Home Visit [facility] [address] [place] [phone] Titi Thomas 01/08/2025 4:30 PM EDT PACE Home Care / PACE Home Visit [facility] [address] [place] [address] [phone] Ashley Eastman 01/08/2025 8:30 AM EDT PACE Home Care / PACE Home Visit [facility] [address] [place] [phone] Carmen Hartmann 01/07/2025 4:30 PM EDT PACE Home Care / PACE Home Visit [facility] [address] [place] [phone] Ashley Eastman 01/07/2025 1:00 PM EDT Office [facility] [address] [place] [phone] Michelle Castillo MD History of petit-mal seizures (Primary Dx); Chest pain at rest; Obesity, morbid (CMS/HCC V24, CMS/HCC V28); Schizoaffective disorder, bipolar type (CMS/HCC V24, CMS/HCC V28) 01/07/2025 8:30 AM EDT PACE Home Care / PACE Home Visit [facility] [address] [place] [phone] Carmen Hartmann 01/06/2025 4:30 PM EDT PACE Home Care / PACE Home Visit [facility] [address] [place] [phone] Ashley Eastman 01/06/2025 8:30 AM EDT PACE Home Care / PACE Home Visit [facility] [address] [place] [phone] Carmen Hartmann 01/05/2025 4:30 PM EDT PACE Home Care / PACE Home Visit [facility] [address] [place] [phone] Marysol Diaz 01/05/2025 8:30 AM EDT PACE Home Care / PACE Home Visit [facility] [address] [place] [phone] Marysol Diaz 01/04/2025 5:00 PM EDT PACE Home Care / PACE Home Visit [facility] [address] [place] [phone] Marysol Diaz 01/04/2025 9:00 AM EDT PACE Home Care / PACE Home Visit [facility] [address] [place] [phone] Marysol Diaz 01/03/2025 4:30 PM EDT PACE Home Care / PACE Home Visit [facility] [address] [place] [phone] TherAshley francisco 01/03/2025 9:30 AM EDT PACE Home Care / PACE Home Visit [facility] [address] [place] [phone] Carmen Hartmann 01/03/2025 8:00 AM EDT PACE Home Care / P[facility] Home Visit [facility] [address] [place] [phone] Carmen Hartmann 01/03/2025 [facility] [address] [place] [phone] Regulo Kauffman, ALONSO Constipation, unspecified constipation type 01/02/2025 4:30 PM EDT PACE Home Care / P[facility] Home Visit [facility] [address] [place] [phone] Ashley Eastman 01/02/2025 8:30 AM EDT PACE Home Care / P[facility] Home Visit [facility] [address] [place] [phone] Carmen Hartmann 01/01/2025 4:30 PM EDT PACE Home Care / P[facility] Home Visit [facility] [address] [place] [address] TherAshley francisco 01/01/2025 8:30 AM EDT PACE Home Care / P[facility] Home Visit [facility] [address] [place] [phone] Carmen Hartmann 12/31/2024 4:30 PM EDT PACE Home Care / [facility] Home Visit [facility] [address] [place] [phone] Ashley Eastman 12/31/2024 12:45 PM EDT Treatment [facility] [address] [place] [phone] Chava Singh, PT 12/31/2024 10:00 AM EDT PACE External Visit [facility] [address] [place] [address] [phone] Healthcare maintenance 12/31/2024 8:30 AM EDT PACE Home Care / [facility]ACE Home Visit [facility] [address] [place] [address] [phone] Carmen Hartmann from Last 3 Months Immunizations Immunization Administration Dates Next Due COVID-19 (Pfizer/Comirnaty) 12yo and older 03/01/2025 Influenza, Unspecified 02/11/2025,01/18/2024 Moderna SARS-CoV-2 COVID-19, mRNA, LNP-S, preservative free 01/25/2024,03/29/2023,10/19/2022,10/19,10/19/2022 Pneumococcal polysaccharide 23 valent (Pneumovax 23) 2yo and older 03/03/2025(Deferred: Other - ordered),10/19/2022 Tdap Tetanus diptheria acell ular pertussis (Boostrix; Adacel) 7yo and older 03/03/2025(Deferred: Other - on order) Zoster recombinant (Shingrix ) 19yo and older 10/19/2022,10/19/2022 Surgical History Surgery Date Site/Laterality Comments HYSTERECTOMY Medical History Medical History Date Comments Epilepsy (CMS/HCC V24, CMS/HCC V28) Anxiety Depression Bipolar 1 disorder (CMS/HCC V24, CMS/[facility] V28) FERMÍN (obstructive sleep apnea) Migraines Diabetes mellitus (CMS/[facility] V 24, [facility] V28) Adult hypothyroidism Wandering associated with mental [...] for your loved ones. For example, child center assistant or elderly care for an older [...] not to disclose 2024 10:13 AM EST Last Filed Vital Signs Vital Sign Reading Time Taken Comments Blood Pressure 116/62 03/18/2025 4:30 PM EST Pulse 74 03/18/2025 4:30 PM EST Temperature 36.1 C (97 F) 03/18/2025 4:30 PM EST Respiratory Rate 18 03/18/2025 4:30 PM EST Oxygen Saturation 98% 03/18/2025 4:30 PM EST Inhaled Oxygen Concentration - - Weight 108 kg (239 lb) 03/18/2025 4:30 PM EST Height 152.4 cm (5') 03/18/2025 2:32 PM EST Body Mass Index 46.68 03/18/2025 2:32 PM EST Plan of Treatment Upcoming Encounters Date Type Department Care Team (Late st Contact Info) Description 04/02/2025 8:30 AM EST PACE Home Care / [facility] [address] [place] [phone] Carmen Hartmann 04/02/2025 4:30 PM EST PACE Home Care / [facility] Home [facility] [address] [place] [address] [phone] Ashley Eastman 04/03/2025 8:30 AM EST PACE Home Care / [facility] [address] [place] [phone] Carmen Hartmann 04/03/2025 9:00 AM EST [facility] Attendance[facility] [address] [place] [phone] 04/03/2025 4:30 PM EST PACE Home Care / [facility] [address] [place] [phone] Ashley Eastman 04/04/2025 [facility] [address] [place] [phone] Regulo Kauffman NP [address] [address] Constipation, unspecified constipation type 04/04/2025 8:00 AM EST PACE Home Care / P[facility] Home Visit [facility] [address] [place] [phone] Titi Thomas 04/04/2025 8:30 AM EST PACE Home Care / P[facility] Home Visit [facility] [address] [place] [phone] Marysol Diaz 04/04/2025 4:30 PM EST PACE Home Care / PACE Home Visit [facility] [facility] [address] [place] [phone] Ashley Eastman 04/05/2025 12:00 PM EST PACE Home Care / [facility] [place] [facility] [address] [place] [phone] Dena Chavez 04/06/2025 12:00 PM EST PACE Home Care / [facility] Visit [facility] [place] [facility] [address] [place] [phone] Dena Chavez 2025 8:30 AM EST P[facility] Home Care / [facility] [address] [place] [address] Carmen Hartmann 2025 4:30 PM EST PACE Home Care / [facility] [address] [place] [address] Ashley Eastman 04/08/2025 8:30 AM EST PACE Home Care / [facility] [address] [place] [address] Carmen Hartmann 04/08/2025 4:30 PM EST PACE Home Care / [facility] [address] [place] [phone] Ashley Eastman 04/09/2025 8:30 AM EST PACE Home Care / [facility] [address] [place] [phone] Carmen Hartmann 04/09/2025 4:30 PM EST PACE Home Care / [facility] [address] [place] [phone] Ashley Eastman 04/10/2025 6:05 AM EST PACE Home Care / [facility] [address] [place] [phone] Jackeline Mcrae 04/10/2025 9:00 AM EST [facility] [place] [facility] [address] [place] [address] 04/10/2025 4:30 PM EST PACE Home Care / [facility] [address] [place] [phone] Ashley Eastman 04/11/2025 8:00 AM EST PACE Home Care / [facility] [address] [place] [address] Carmen Hartmann 04/11/2025 9:30 AM EST PACE Home Care / [facility] [address] [place] [address] Carmen Hartmann 04/11/2025 4:30 PM EST PACE Home Care / [facility] [address] [place] [address] Ashley Eastman 04/12/2025 8:30 AM EST PACE Home Care / [facility] [address] [place] [address] Marysol Diaz 04/12/2025 12:00 PM EST PACE Home Care / [facility] [address] [place] [address] Natali Sanford 04/12/2025 5:30 PM EST PACE Home Care / [facility] [address] [place] [address] Marysol Diaz 04/13/2025 8:30 AM EST PACE Home Care / [facility] [place] [facility] [address] [place] [address] Marysol Diaz 04/13/2025 12:00 PM EST PACE Home Care / [facility] [address] [place] [phone] Natali Sanford 04/13/2025 4:30 PM EST PACE Home Care / [facility] [address] [place] [address] Marysol Diaz 04/13/2025 5:30 PM EST PACE Home Care / [facility] [place] [facility] [address] [place] [address] Marysol Diaz 04/14/2025 8:30 AM EST PACE Home Care / [facility] [address] [place] [address] Carmen Hartmann 04/14/2025 4:30 PM EST PACE Home Care / [facility] [address] [place] [phone] Ashley Eastman 04/15/2025 8:30 AM EST PACE Home Care / [facility] [address] [place] [phone] Carmen Hartmann 04/15/2025 11:00 AM EST [facility] Visit [facility] [address] [place] [phone] Regulo Kauffman, RACEHORSE TRAINER [facility] [address] [address] Brigette East LPN 04/15/2025 4:30 PM EST PACE Home Care / [facility] [address] [place] [phone] Ashley Eastman 04/16/2025 8:30 AM EST PACE Home Care / [facility] [address] [place] [phone] Carmen Hartmann 04/16/2025 4:30 PM EST PACE Home Care / [facility] [address] [place] [address] Ashley Eastman 04/17/2025 8:30 AM EST PACE Home Care / [facility] [place] [facility] [address] [place] [address] Carmen Hartmann 04/17/2025 9:00 AM EST [facility] [place] [facility] [address] [place] [address] 04/17/2025 4:30 PM EST PACE Home Care / [facility] [place] [facility] [address] [place] [phone] Ashley Eastman 04/18/2025 8:00 AM EST PACE Home Care / [facility] [place] [facility] [address] [place] [phone] Carmen Hartmann 04/18/2025 4:30 PM EST PACE Home Care / [facility] [place] [facility] [address] [place] [phone] Ashley Eastman 04/19/2025 12:00 PM EST PACE Home Care / [facility] [place] [facility] [address] [place] [phone] Dena Chavez 04/20/2025 12:00 PM EST PACE Home Care / [facility] [place] [facility] [address] [place] [phone] Dena Chavez 04/21/2025 8:30 AM EST PACE Home Care / [facility] [place] [facility] [address] [place] [phone] Carmen Hartmann 04/21/2025 4:30 PM EST PACE Home Care / [facility] [address] [place] [phone] Ashley Eastman 04/22/2025 8:30 AM EST PACE Home Care / [facility] [place] [facility] [address] [place] [phone] Carmen Hartmann 04/22/2025 4:30 PM EST PACE Home Care / [facility] [place] [facility] [address] [place] [address] Ashley Eastman 04/23/2025 8:30 AM EST PACE Home Care / [facility] [place] [facility] [address] [place] [address] Carmen Hartmann 04/23/2025 4:30 PM EST PACE Home Care / [facility] [place] [facility] [address] [place] [phone] Ashley Eastman 04/24/2025 8:30 AM EST PACE Home Care / [facility] [address] [place] [phone] Carmen Hartmann 04/24/2025 9:00 AM EST [facility] [place] [facility] [address] [place] [address] 04/24/2025 4:30 PM EST PACE Home Care / [facility] [place] [facility] [address] [place] [phone] Ashley Eastman 04/25/2025 8:00 AM EST PACE Home Care / [facility] [address] [place] [phone] Carmen Hartmann 04/25/2025 9:30 AM EST PACE Home Care / [facility] [address] [place] [phone] Ralph Loyola 04/25/2025 4:30 PM EST PACE Home Care / [facility] [address] [place] [phone] Ashley Eastman 04/26/2025 8:30 AM EST PACE Home Care / [facility] [address] [place] [address] Marysol Diaz 04/26/2025 12:00 PM EST PACE Home Care / [facility] [place] [facility] [address] [place] [phone] Natali Sanford 04/26/2025 5:30 PM EST PACE Home Care / [facility] [address] [place] [address] Marysol Diaz 04/27/2025 8:30 AM EST PACE Home Care / [facility] [address] [place] [phone] Marysol Diaz 04/27/2025 12:00 PM EST PACE Home Care / [facility] [place] [facility] [address] [place] [phone] Natali Sanford 04/27/2025 4:30 PM EST PACE Home Care / [facility] [address] [place] [phone] Marysol Diaz 04/27/2025 5:30 PM EST PACE Home Care / [facility] [address] [place] [phone] Marysol Diaz 04/28/2025 8:30 AM EST PACE Home Care / [facility] [address] [place] [phone] Carmen Hartmann 04/28/2025 4:30 PM EST PACE Home Care / [facility] [address] [place] [phone] Ashley Eastman 04/29/2025 8:30 AM EST PACE Home Care / [facility] [address] [place] [address] Carmen Hartmann 04/29/2025 4:30 PM EST PACE Home Care / [facility] [address] [place] [address] Ashley Eastman 04/30/2025 8:30 AM EST PACE Home Care / [facility] [place] [facility] [address] [place] [address] Carmen Hartmann 04/30/2025 4:30 PM EST PACE Home Care / [facility] [address] [place] [address] Ashley Eastman 05/01/2025 8:30 AM EST PACE Home Care / [facility] [address] [place] [address] Carmen Hartmann 05/01/2025 9:00 AM EST [facility] [place] [facility] [address] [place] [address] 05/01/2025 11:30 AM EST [facility] Support [facility] [address] [place] [address] 05/01/2025 4:30 PM EST PACE Home Care / [facility] [address] [place] [address] Ashley Eastman 05/02/2025 8:00 AM EST PACE Home Care / [facility] [address] [place] [address] Carmen Hartmann 05/02/2025 9:30 AM EST PACE Home Care / [facility] [address] [place] [address] Ralph Loyola 05/02/2025 4:30 PM EST PACE Home Care / [facility] [address] [place] [phone] Ashley Eastman 05/03/2025 12:00 PM EST PACE Home Care / [facility] [address] [place] [phone] Dena Chavez 05/04/2025 12:00 PM EST PACE Home Care / [facility] [place] [facility] [address] [place] [phone] Dena Chavez 05/05/2025 8:30 AM EST PACE Home Care / [facility] [address] [place] [phone] aCrmen Hartmann 05/05/2025 4:30 PM EST PACE Home Care / [facility] [place] [facility] [address] [place] [phone] Ashley Eastman 05/06/2025 8:30 AM EST PACE Home Care / [facility] [address] [place] [phone] Carmen Hartmann 05/06/2025 4:30 PM EST PACE Home Care / [facility] [address] [place] [phone] Ashley Eastman 05/07/2025 8:30 AM EST PACE Home Care / [facility] [address] [place] [phone] Carmen Hartmann 05/07/2025 4:30 PM EST PACE Home Care / [facility] [address] [place] [address] Ashley Eastman 05/08/2025 8:30 AM EST PACE Home Care / [facility] [address] [place] [address] Carmen Hartmann 05/08/2025 9:00 AM EST [facility] [place] [facility] [address] [place] [address] 05/08/2025 4:30 PM EST PACE Home Care / [facility] [address] [place] [address] Ashley Eastman 05/09/2025 8:00 AM EST PACE Home Care / [facility] [address] [place] [address] Carmen Hartmann 05/09/2025 9:30 AM EST PACE Home Care / [facility] [address] [place] [address] Ralph Loyola 05/09/2025 4:30 PM EST PACE Home Care / [facility] [address] [place] [address] Ashley Eastman 05/10/2025 8:30 AM EST PACE Home Care / [facility] [address] [place] [address] Marysol Diaz 05/10/2025 12:00 PM EST PACE Home Care / [facility] [address] [place] [address] Natali Sanford 05/10/2025 5:30 PM EST PACE Home Care / [facility] [address] [place] [address] Marysol Diaz 05/11/2025 8:30 AM EST PACE Home Care / [facility] [address] [place] [phone] Marysol Diaz 05/11/2025 12:00 PM EST PACE Home Care / [facility] [address] [place] [phone] Natali Sanford 05/11/2025 4:30 PM EST PACE Home Care / [facility] [address] [place] [phone] Marysol Diaz 05/11/2025 5:30 PM EST PACE Home Care / [facility] [address] [place] [phone] Marysol Diaz 05/12/2025 8:30 AM EST PACE Home Care / [facility] [address] [place] [phone] Carmen Hartmann 05/12/2025 4:30 PM EST PACE Home Care / [facility] [address] [place] [phone] Ashley Eastman 05/13/2025 8:30 AM EST PACE Home Care / [facility] [address] [place] [phone] Carmen Hartmann 05/13/2025 11:00 AM EST [facility] Visit [facility] [place] [facility] [address] [place] [phone] Regulo Kauffman, ALONSO [facility] [address] [address] Brigette East LPN 05/13/2025 4:30 PM EST PACE Home Care / [facility] [address] [place] [phone] Ashley Eastman 05/14/2025 8:30 AM EST PACE Home Care / [facility] [address] [place] [phone] Carmen Hartmann 05/14/2025 4:30 PM EST PACE Home Care / [facility] [address] [place] [phone] Ashley Eastman 05/15/2025 8:30 AM EST PACE Home Care / [facility] [address] [place] [phone] Carmen Hartmann 05/15/2025 9:00 AM EST [facility] Att[facility] [place] [facility] [address] [place] [phone] 05/15/2025 4:30 PM EST PACE Home Care / [facility] [address] [place] [phone] Ashley Eastman 05/16/2025 8:00 AM EST PACE Home Care / [facility] [address] [place] [phone] Carmen Hartmann 05/16/2025 9:30 AM EST PACE Home Care / [facility] [address] [place] [phone] Ralph Loyola 05/16/2025 4:30 PM EST PACE Home Care / [facility] [address] [place] [phone] Ashley Eastman 05/17/2025 12:00 PM EST PACE Home Care / [facility] [place] [facility] [address] [place] [phone] Dena Chavez 05/18/2025 12:00 PM EST PACE Home Care / [facility] [address] [place] [phone] Dena Chavez 05/19/2025 8:30 AM EST PACE Home Care / [facility] [address] [place] [phone] Carmen Hartmann 05/19/2025 4:30 PM EST PACE Home Care / [facility] [address] [place] [phone] Ashley Eastman 05/20/2025 8:30 AM EST PACE Home Care / [facility] [address] [place] [phone] Carmen Hartmann 05/20/2025 4:30 PM EST PACE Home Care / [facility] [place] [facility] [address] [place] [phone] TherAshley francisco 05/21/2025 8:30 AM EST PACE Home Care / [facility] [place] [facility] [address] [place] [phone] Carmen Hartmann 05/21/2025 4:30 PM EST PACE Home Care / [facility] [place] [facility] [address] [place] [phone] Ashley Eastman 05/22/2025 8:30 AM EST PACE Home Care / [facility] [place] [facility] [address] [place] [phone] Carmen Hartmann 05/22/2025 9:00 AM EST [facility] [place] [facility] [address] [place] [address] 05/22/2025 4:30 PM EST PACE Home Care / [facility] [address] [place] [address] Ashley Eastman 05/23/2025 8:00 AM EST PACE Home Care / [facility] [address] [place] [phone] Carmen Hartmann 05/23/2025 9:30 AM EST PACE Home Care / [facility] [address] [place] [address] Ralph Loyola 05/23/2025 4:30 PM EST PACE Home Care / [facility] [place] [facility] [address] [place] [address] Ashley Eastman 05/24/2025 8:30 AM EST PACE Home Care / [facility] [place] [facility] [address] [place] [phone] Marysol Diaz 05/24/2025 12:00 PM EST PACE Home Care / [facility] [address] [place] [phone] Natali Sanford 05/24/2025 5:30 PM EST PACE Home Care / [facility] [address] [place] [phone] Marysol Diaz 05/25/2025 8:30 AM EST PACE Home Care / [facility] [address] [place] [phone] Marysol Diaz 05/25/2025 12:00 PM EST PACE Home Care / [facility] [address] [place] [address] Natali Sanford 05/25/2025 4:30 PM EST PACE Home Care / [facility] [address] [place] [address] Marysol Diaz 05/25/2025 5:30 PM EST PACE Home Care / [facility] [address] [place] [address] Marysol Diaz 05/26/2025 8:30 AM EST PACE Home Care / [facility] [address] [place] [address] Carmen Hartmann 05/26/2025 4:30 PM EST PACE Home Care / [facility] [address] [place] [address] Ashley Eastman 05/27/2025 8:30 AM EST PACE Home Care / [facility] [address] [place] [phone] Carmen Hartmann 05/27/2025 4:30 PM EST PACE Home Care / [facility] [place] [facility] [address] [place] [phone] Ashley Eastman 05/28/2025 8:30 AM EST PACE Home Care / [facility] [address] [place] [phone] Carmen Hartmann 05/28/2025 4:30 PM EST PACE Home Care / [facility] [address] [place] [address] Ashley Eastman 05/29/2025 8:30 AM EST PACE Home Care / [facility] [address] [place] [phone] Carmen Hartmann 05/29/2025 9:00 AM EST [facility] Att[facility] [place] [facility] [address] [place] [phone] 05/29/2025 4:30 PM EST PACE Home Care / [facility] [place] [facility] [address] [place] [phone] Ashley Eastman 05/30/2025 8:00 AM EST PACE Home Care / [facility] [place] [facility] [address] [place] [phone] Carmen Hartmann 05/30/2025 9:30 AM EST PACE Home Care / [facility] [place] [facility] [address] [place] [phone] Ralph Loyola 05/30/2025 4:30 PM EST PACE Home Care / [facility] [place] [facility] [address] [place] [phone] Ashley Eastman 06/05/2025 9:00 AM EST [facility] Att[facility] [place] [facility] [address] [place] [phone] 06/10/2025 11:00 AM EST [facility] [place] [facility] [address] [place] [phone] Michelle Castillo MD [address] [place] [address] Brigette East LPN 06/12/2025 9:00 AM EST [facility] Att[facility] [place] [facility] [address] [place] [address] 06/19/2025 9:00 AM EST [facility] [place] [facility] [address] [place] [address] 06/26/2025 9:00 AM EDT PACE Attendance[facility] [place] [facility] [address] [place] [phone] 06/27/2025 1:20 PM EDT Office Visit Gastroenterology - [address] [place] [address] Analisa Perez, RACEHORSE TRAINER [address] [place] [address] 07/03/2025 9:00 AM EDT PACE Attendance[facility] [place] [address] [address] 07/10/2025 9:00 AM EDT PACE Attendance[facility] [place] [facility] [address] [place] [phone] 07/17/2025 9:00 AM EDT P[facility] Attend[facility] [place] [facility] [address] [place] [phone] 07/17/2025 3:30 PM EDT PACE External [facility] [place] [address] [place] [phone] 07/24/2025 9:00 AM EDT [facility] Attend[facility] [place] [address] [address] 07/31/2025 9:00 AM EDT [facility] Att[facility] [place] [facility] [address] [place] [phone] 08/07/2025 9:00 AM EDT [facility] Att[facility] [place] [address] [address] 08/14/2025 9:00 AM EDT PACE Attendance[facility] [place] [facility] [address] [address] 08/21/2025 9:00 AM EDT PACE Attend[facility] [place] [facility] [address] [place] [address] 08/28/2025 9:00 AM EDT [facility] Att[facility] [place] [facility] [address] [place] [phone] 09/04/2025 9:00 AM EDT [facility] [facility] [place] [facility] [address] [place] [phone] 09/11/2025 9:00 AM EDT P[facility] Att[facility] [place] [facility] [address] [place] [phone] 09/18/2025 9:00 AM EDT P[facility] Att[facility] [place] [facility] [address] [place] [phone] 09/25/2025 9:00 AM EDT [facility] [place] [facility] [address] [place] [phone] 10/02/2025 9:00 AM EDT [facility] [place] [facility] [address] [place] [phone] 10/09/2025 9:00 AM EDT [facility] [place] [facility] [address] [place] [phone] Health Maintenance Due Date Last Done Comments Non-Opioid Controlled Substance Agreement 1959 Diabetes: Annual Foot Exam 1969 Diabetes: Annual Retina Eye Exam 1969 DTaP,Tdap,and Td Vaccines (1 - Tdap) 1978 Cervical Cancer Screening: Pap Smear 1980 RSV Immunization Adult Patients (1 - Risk 50-74 years 1-dose series) 2009 Hepatitis C Screening 03/15/2022 Osteoporosis Screening (Bone Density Screening) 03/15/2022 Pneumococcal Vaccine: 50+ Years (2 of 2 - PCV) 10/20/2023 10/19/2022, 12/30/2019, 12/09/2014 Depression Screening 04/17/2024 Diabetes: Annual Urine Albumin-Creatinine Ratio (uACR) 04/30/2024 Breast Cancer Screening 05/11/2025 05/11/2023 COVID-19 Vaccine (9 - Moderna risk season) 2025 03/01/2025, 01/25/2024, 03/29/2023, Additional history exists Diabetes: Blood Sugar Control Test (HGBA1C) 08/31/2025 03/03/2025, 09/03/2024, 10/11/2023 Drug Screen 02/09/2026 02/09/2025, 02/03/2025 Falls Risk Assessment 02/09/2026 02/09/2025 Social Influencers of Health Screening 02/10/2026 02/10/2025 Diabetes: Annual GFR (Glomerular Filtration Rate) 03/11/2026 03/11/2025, 02/09/2025, 02/04/2025, Additional history exists Hypertension/CHF/CAD Annual BMP Blood Test 03/11/2026 03/11/2025, 02/09/2025, 02/04/2025, Additional history exists Colorectal Cancer Screening: Colonoscopy 05/22/2029 05/22/2024 Cholesterol Screening (Lipid Panel) 02/04/2030 02/04/2025, 02/03/2025, 04/24/2023 Zoster Vaccines Completed 10/19/2022, 07/0 08/2022, 02/28/2020, Additional history exists Influenza Vaccine Completed 02/11/2025, , 01/13/2022, Additional history exists HIB Vaccines Aged Out No longer eligi [...] Procedure Name Priority Date/Time Associated Diagnosis Comments XR BARIUM SWALLOW WITH VIDEO AND SPEECH Routine 03/24/2025 10:53 AM EST Dysphagia, oropharyngeal phase CBC WITH AUTO DIFFERENTIAL Routine 03/18/2025 2:18 PM EST Schizoaffective disorder, bipolar type (CMS/HCC V24, CMS/HCC V28) Anxiety Major depressive disorder with single episode, in partial remission ([facility]/HCC V24) CBC AND DIFFERENTIAL Routine 03/18/2025 2:18 PM EST Schizoaffective disorder, bipolar type (CMS/HCC V24, CMS/HCC V28) Anxiety Major depressive disorder with single episode, in partial remission ([facility] V24) URINALYSIS WITH REFLEX MICROSCOPIC AND CULTURE Routine 03/11/2025 2:04 PM EST Therapeutic drug monitoring CULTURE URINE Routine 03/11/2025 2:04 PM EST Therapeutic drug monitoring MISCELLANEOUS LAB TEST Routine 03/11/2025 1:39 PM EST Major depressive disorder with single episode, in partial remission ([facility]/HCC V24) Anxiety Schizoaffective disorder, bipolar type (CMS/HCC V24, CMS/HCC V28) Delusional disorder (CMS/HCC V24, CMS/HCC V28) LAVENDER - EDTA Routine 03/11/2025 1:38 PM EST Schizoaffective disorder, bipolar type (CMS/HCC V24, CMS/HCC V28) Anxiety Major depressive disorder with single episode, in partial remission ([facility]/HCC V24) Gastroesophageal reflux disease without esophagitis Continuous auditory hallucinations EXTRA TUBES Routine 03/11/2025 1:38 PM EST Schizoaffective disorder, bipolar type (CMS/HCC V24, CMS/HCC V28) Anxiety Major depressive disorder with single episode, in partial remission (CMS/HCC V24) Gastroesophageal reflux disease without esophagitis Continuous auditory hallucinations CBC WITH AUTO DIFFERENTIAL Routine 03/11/2025 1:38 PM EST Schizoaffective disorder, bipolar type (CMS/HCC V24, CMS/HCC V28) Anxiety Major depressive disorder with single episode, in partial remission (CMS/HCC V24) CBC AND DIFFERENTIAL Routine 03/11/2025 1:38 PM EST Schizoaffective disorder, bipolar type (CMS/HCC V24, CMS/HCC V28) Anxiety Major depressive disorder with single episode, in partial remission (CMS/HCC V24) COMPREHENSIVE METABOLIC PANEL Routine 03/11/2025 1:38 PM EST Schizoaffective disorder, bipolar type (CMS/HCC V24, CMS/HCC V28) Anxiety Major depressive disorder with single episode, in partial remission (CMS/HCC V24) HEMOGLOBIN A1C Routine 03/03/2025 12:15 PM EST Schizoaffective disorder, unspecified type (CMS/HCC V24, CMS/HCC V28) VITAMIN D 25 HYDROXY Routine 03/03/2025 12:15 PM EST Schizoaffective disorder, unspecified type (CMS/HCC V24, CMS/HCC V28) THYROID STIMULATING HORMONE WITH REFLEX TO FREE T4 AND FREE T3 Routine 03/03/2025 12:15 PM EST Schizoaffective disorder, unspecified type (CMS/HCC V24, CMS/HCC V28) HCG QUALITATIVE, URINE Routine 03/03/2025 11:55 AM EST Delusion of ECG 12-LEAD STAT 02/11/2025 10:37 AM EDT [...] CMS/HCC V28) POCT GLUCOSE BLOOD Routine 02/04/2025 8 :00 AM EDT VAS US DUPLEX LOWER EXT [...] epilepsy type (CMS/HCC V24, CMS/HCC V28) Tremor COLONOSCOPY Routine 05/22/2024 12:42 PM EST Colon cancer screening QIANA SCREENING DIGITAL Routine 05/11/2023 4:13 PM EST Encounter for screening mammogram for malignant neoplasm of breast from Last 3 Months or Most Recently Relevant to Health Maintenance Results * XR Barium Swallow with Video and Speech (03/24/2025 10:53 AM EST) Anatomical Region Laterality Modality Head and Neck Radiographic Krystyna ging 03/24/2025 1:06 PM EST Impressions 03/24/2025 4:30 PM EST Normal swallowing function. Please refer to the dedicated speech pathologist report for further details as clinically indicated. -------- FINAL REPORT -------- Dictated By: Stormy Garcia Dictated Date: 03/24/2025 13:06 ET Assigned Physician: Meme Reed Reviewed and Electronically Signed By: Meme Reed Signed Date: 03/24/2025 16:30 ET Workstation ID: [id number] Transcribed By: Self Edit Transcribed Date: 03/24/2025 13:08 ET Resident/PA/RACEHORSE TRAINER: Stormy Garcia Narrative 03/24/2025 4:30 PM EST STUDY: Modified barium swallow study COMPARISON: None HISTORY: Dysphagia. Globus sensation. TECHNIQUE: Multiple sequential fluoroscopic images of the lateral neck were obtained for a swallowing function study. Barium enhanced consistencies of pudding, honey, nectar, thin liquid, semi- solid, and a 13 mm barium tablet were utilized for evaluation. Examination was performed with the speech therapist present. FINDINGS: There was no evidence for penetration or aspiration of any of the various consistencies. 13mm barium tablet was swallowed without difficulty with prompt passage of pill past the hypopharynx. Air kerma: 1.36 mGy Procedure Note Meme Reed MD - 03/24/2025 STUDY: Modified barium swallow study COMPARISON: None HISTORY: Dysphagia. Globus sensation. TECHNIQUE: Multiple sequential fluoroscopic images of the lateral neckwere obtained for a swallowing function study. Barium enhancedconsistencies of pudding, honey, nectar, thin liquid, semi-solid, and a 13mm barium tablet were utilized for evaluation. Examination was performedwith the speech therapist present. FINDINGS: There was no evidence for penetration or aspiration of any of the variousconsistencies. 13mm barium tablet was swallowed without difficulty withprompt passage of pill past the hypopharynx. Air kerma: 1.36 mGy IMPRESSION: Normal swallowing function. Please refer to the dedicated speech pathologist report for furtherdetails as clinically indicated. -------- FINAL REPORT -------- Dictated By: Stormy Garcia Dictated Date: 03/24/2025 13:06 ET Assigned Physician: Meme Reed Reviewed and Electronically Signed By: Meme Reed Signed Date: 03/24/2025 16:30 ET Workstation ID: [id number] Transcribed By: Self Edit Transcribed Date: 03/24/2025 13:08 ET Resident/PA/RACEHORSE TRAINER: Stormy Garcia Regulo Kauffman NP IMG FLUOROSCOPY PROCEDURES Final Result * CBC auto differential (03/18/2025 2:18 PM EST) Only the most recent of5 resultswithin the time period is included. WBC 10.4 4.8 - 10.8 K/mcL LAB HEMETOLOGY METHOD 03/18/2025 5:46 PM [facility] RBC 4.10 3.80 - 4.80 M/mcL LAB HEMETOLOGY METHOD 03/18/2025 5:46 PM [facility] Hemoglobin 12.9 11.5 - 16.0 g/dL LAB HEMETOLOGY METHOD 03/18/2025 5:46 PM [facility] Hematocrit 38.4 35.0 - 47.0 % LAB HEMETOLOGY METHOD 03/18/2025 5:46 PM [facility] MCV 93.0 79.0 - 98.0 FL LAB HEMETOLOGY METHOD 03/18/2025 5:46 PM [facility] MCH 31.2 27.0 - 32.0 pcg LAB HEMETOLOGY METHOD 03/18/2025 5:46 PM [facility] MCHC 33.6 32.0 - 37.0 g/dL LAB HEMETOLOGY METHOD 03/18/2025 5:46 PM [facility] RDW 12.4 11.0 - 15.0 % LAB HEMETOLOGY METHOD 03/18/2025 5:46 PM [facility] Platelets 218 130 - 400 K/mcL LAB HEMETOLOGY METHOD 03/18/2025 5:46 PM [facility] MPV 10.0 7.0 - 11.0 FL LAB HEMETOLOGY METHOD 03/18/2025 5:46 PM [facility] NRBC 0.0 <1.0 % LAB HEMETOLOGY METHOD 03/18/2025 5:46 PM [facility] NRBC Absolute 0.00 <0.10 K/mcL LAB HEMETOLOGY METHOD 03/18/2025 5:46 PM [facility] Neutrophils Relative 54.3 % LAB HEMETOLOGY METHOD 03/18/2025 5:46 PM [facility] Lymphocytes Relative 34.5 % LAB HEMETOLOGY METHOD 03/18/2025 5:46 PM [facility] Monocytes Relative 6.4 % LAB HEMETOLOGY METHOD 03/18/2025 5:46 PM [facility] Eosinophils Relative 4.0 % LAB HEMETOLOGY METHOD 03/18/2025 5:46 PM [facility] Basophils Relative 0.5 % LAB HEMETOLOGY METHOD 03/18/2025 5:46 PM [facility] Immature Granulocytes Relative 0.3 % LAB HEMETOLOGY METHOD 03/18/2025 5:46 PM [facility] Neutrophils Absolute 5.67 1.50 - 7.00 K/mcL LAB HEMETOLOGY METHOD 03/18/2025 5:46 PM [facility] Lymphocytes Absolute 3.60 1.00 - 5.00 K/mcL LAB HEMETOLOGY METHOD 03/18/2025 5:46 PM [facility] Monocytes Absolute 0.67 0.20 - 1.00 K/mcL LAB HEMETOLOGY METHOD 03/18/2025 5:46 PM [facility] Eosinophils Absolute 0.42 0.00 - 0.50 K/mcL LAB HEMETOLOGY METHOD 03/18/2025 5:46 PM [facility] Basophils Absolute 0.05 0.00 - 0.20 K/mcL LAB HEMETOLOGY METHOD 03/18/2025 5:46 PM [facility] Immature Granulocytes Absolute 0.03 0.00 - 0.03 K/mcL LAB HEMETOLOGY METHOD 03/18/2025 5:46 PM [facility] Blood Venous blood specimen / Unknown Venipuncture / Unknown 03/18/2025 2:18 PM EST 03/18/2025 5:30 PM EST us Regulo Kauffman RACEHORSE TRAINER LAB BLOOD ORDERABLES Final Resul t [facility] [address] [place] [address], [place] [phone] * (ABNORMAL) Urinalysis with reflex microscopic and culture (03/11/2025 2:04 PM EST) Specific [place] Urine 1.009 1.003 - 1.030 LAB URINALYSIS - AUTOMATED METHOD 03/11/2025 7:10 PM [facility] pH, Urine 6.0 5.0 - 8.0 pH LAB URINALYSIS - AUTOMATED METHOD 03/11/2025 7:10 PM [facility] Leukocytes, Urine Trace(A) Negative LAB URINALYSIS - AUTOMATED METHOD 03/11/2025 7:10 PM [facility] Nitrite, Urine Negative Negative LAB URINALYSIS - AUTOMATED METHOD 03/11/2025 7:10 PM [facility] Protein, Urine Negative <=Trace mg/dL LAB URINALYSIS - AUTOMATED METHOD 03/11/2025 7:10 PM [facility] Glucose, Urine Negative Negative mg/dL LAB URINALYSIS - AUTOMATED METHOD 03/11/2025 7:10 PM [facility] Ketones, Urine Negative Negative mg/dL LAB URINALYSIS - AUTOMATED METHOD 03/11/2025 7:10 PM [facility] Urobilinogen, Urine 0.2 0.2 - 1.0 mg/dL LAB URINALYSIS - AUTOMATED METHOD 03/11/2025 7:10 PM [facility] Bilirubin, Urine Negative Negative LAB URINALYSIS - AUTOMATED METHOD 03/11/2025 7:10 PM [facility] Blood, Urine Negative Negative LAB URINALYSIS - AUTOMATED METHOD 03/11/2025 7:10 PM [facility] RBC, Urine 4 0 - 4 /HPF 03/11/2025 7:10 PM [facility] WBC, Urine 10(H) 0 - 4 /HPF 03/11/2025 7:10 PM [facility] Squamous Epithelial, Urine 10 0 - 60 /LPF 03/11/2025 7:10 PM [facility] Bacteria, Urine Negative Negative /HPF 03/11/2025 7:10 PM [facility] Hyaline Casts, Urine 0 0 - 3 /LPF 03/11/2025 7:10 PM [facility] Urine Urine specimen obtained by clean catch procedure / Unknown Non-blood Collection / Unknown 03/11/2025 2:04 PM EST 03/11/2025 2:04 PM EST us Regulo Kauffman NP LAB URINE ORDERABLES Final Resul t Performing Organization Address City/[facility]/ZIP Co de Phone Number [facility] [address] [place] [address], [place] [phone] * Culture urine (03/11/2025 2:04 PM EST) [facility] Culture, Urine No growth 03/12/2025 1:50 PM EST [facility] Urine Urine specimen obtained by clean catch procedure / Unknown Non-blood Collection / Unknown 03/11/2025 2:04 PM EST 03/11/2025 7:10 PM EST us Regulo Kauffman NP LAB MICROBIOLOGY - GENERAL ORDER NICOLÁS Final Result [facility] [address] [place] [address], [place] [phone] * Pharmacogenomics Panel: for psychotropic drugs analysis on genetic variations that can influence the metabolism and efficacy. - Miscellaneous Test (03/11/2025 1:39 PM EST) [facility] Miscellaneous Test See Below 2024 11:18 AM EST [facility] Comment: Focused Pharmacogenomics Panel, Varies SEE REPORT UNDER SEPARATE COVER. REPORT WILL BE SENT TO THE ORDERING LABORATORY VIA PRINTER OR FAX. ADDITIONAL COPIES OF THE ORIGINAL REPORT MAY ALSO BE OBTAINED BY CALLING [facility] at [phone] Blood Venipuncture / Unknown 03/11/2025 1:39 PM EST 03/11/2025 1:39 PM EST Regulo Kauffman RACEHORSE TRAINER LAB BLOOD ORDERABLES Edited Resu lt - Final [facility] [address] [place] [address] * Lavender tube (03/11/2025 1:38 PM EST) [facility] Extra Tube Hold for add-ons. 03/12/2025 12:02 PM EST [facility] Comment:Auto resulted. Blood Venous blood specimen / Unknown 03/11/2025 1:38 PM EST 03/12/2025 10:58 AM EST Regulo [facility] LAB BLOOD ORDERABLES Final Resul t [facility] [address] [place] [address], * (ABNORMAL) Comprehensive metabolic panel (03/11/2025 1:38 PM EST) Only the most recent of3 resultswithin the time period is included. [facility] Sodium 139 133 - 145 mmol/L 03/11/2025 6:14 PM EST [facility] Potassium 4.4 3.5 - 5.5 mmol/L 03/11/2025 6:14 PM EST [facility] Chloride 103 96 - 110 mmol/L 03/11/2025 6:14 PM EST [facility] CO2 27 21 - 32 mmol/L 03/11/2025 6:14 PM [facility] Anion Gap 9 3 - 11 03/11/2025 6:14 PM [facility] Glucose 209(H) 70 - 100 mg/dL 03/11/2025 6:14 PM [facility] BUN 18 5 - 25 mg/dL 03/11/2025 6:14 PM [facility] Creatinine 1.03 0.50 - 1.10 mg/dL 03/11/2025 6:14 PM [facility] eGFR 60 >=60 mL/min/1. 73m2 03/11/2025 6:14 PM [facility] Comment:Calculation based on the Chronic Kidney Disease Epidemiology Collaboration (CKD-EPI) equation refit without adjustment for race. BUN/Creatinine Ratio 17.5 03/11/2025 6:14 PM [facility] Calcium 8.4(L) 8.5 - 10.5 mg/dL 03/11/2025 6:14 PM [facility] AST (SGOT) 19 10 - 42 unit/L 03/11/2025 6:14 PM [facility] ALT (SGPT) 21 10 - 60 unit/L 03/11/2025 6:14 PM [facility] Alkaline Phosphatase 82 42 - 121 unit/L 03/11/2025 6:14 PM [facility] Total Protein 6.3 6.0 - 8.0 g/dL 03/11/2025 6:14 PM [facility] Albumin 3.9 3.2 - 5.0 g/dL 03/11/2025 6:14 PM [facility] Total Bilirubin 0.2 0.0 - 1.4 mg/dL 03/11/2025 6:14 PM [facility] Blood Venous blood specimen / Unknown Venipuncture / Unknown 03/11/2025 1:38 PM EST 03/11/2025 1:38 PM EST Regulo Kauffman NP LAB BLOOD ORDERABLES Final Resul t Performing Organization Address City/[facility]/ZIP Co de Phone Number [facility] [address] [place] [address], [place] [phone] * Thyroid stimulating hormone with reflex to free t4 and free t3 (03/03/2025 12:15 PM EST) TSH 2.59 0.40 - 4.00 mcIU/mL LAB CHEMISTRY METHOD 03/03/2025 6:08 PM EST [facility] Blood Venous blood specimen / Unknown Venipuncture / Unknown 03/03/2025 12:15 PM EST 03/03/2025 12:15 PM EST Michelle Castillo MD LAB BLOOD ORDERABLES Final Result Performing Organization Address [facility]/ZIP Co de Phone Number [facility] [address] [place] [address], [place] [phone] * (ABNORMAL) Vitamin D 25 hydroxy (03/03/2025 12:15 PM EST) Vit D, 25-Hydroxy 22.0(L) 30.0 - 80.0 ng/mL LAB CHEMISTRY METHOD 03/03/2025 6:08 PM EST [facility] Blood Venous blood specimen / Unknown Venipuncture / Unknown 03/03/2025 12:15 PM EST 03/03/2025 12:15 PM EST Michelle Castillo MD LAB BLOOD ORDERABLES Final Result Performing Organization Address City/[facility]/ZIP Co de Phone Number [facility] [address] [place] [address], [place] [phone] * (ABNORMAL) Hemoglobin A1c (03/03/2025 12:15 PM EST) [facility] Hemoglobin A1C 6.7(H) <6.5 % LAB CHEMISTRY METHOD 03/03/2025 9:03 PM EST [facility] Mean Bld Glu Estim. 146 mg/dL LAB CHEMISTRY METHOD 03/03/2025 9:03 PM EST [facility] Blood Venous blood specimen / Unknown Venipuncture / Unknown 03/03/2025 12:15 PM EST 03/03/2025 12:15 PM EST Michelle Castillo MD LAB BLOOD ORDERABLES Final Result [facility] [address] [place] [address], [place] [phone] * HCG qualitative, urine (03/03/2025 11:55 AM EST) [facility] Preg Test, Ur Negative Negative 03/03/2025 5:56 PM EST [facility] Urine Urine specimen obtained by clean catch procedure / Unknown Non-blood Collection / Unknown 03/03/2025 11:55 AM EST 03/03/2025 11:55 AM EST Michelle Castillo MD LAB URINE ORDERABLES Final Result [facility] [address] [place] [address], [place] [phone] * ECG 12 lead (02/11/2025 10:37 AM EDT) Only the most recent of2 resultswithin the time period is included. [facility] Ventricular Rate ECG 62 BPM [facility] Atrial Rate 62 BPM [facility] P-R Interval 156 ms [facility] QRS Duration 84 ms [facility] Q-T Interval 424 ms [facility]EM[facility] QTc 430 ms GEM[facility] P Wave Barry 58 degrees GEMUSE R Barry 42 degrees GEMUSE T Barry 53 degrees GEMUSE ECG Interpretation Normal sinus rhythm Normal ECG When compared with ECG of 03-FEB-2025 17:08, No significant change was found Confirmed by MD LERNER JOHN ([id number]) on 02/11/2025 7:11:34 PM [facility] 02/11/2025 10:3 7 AM EDT 02/11/2025 7:11 PM EDT us Sd Raman MD ECG ORDERABLES Final Result [facility] * Drug abuse screen 8a panel, urine (02/09/2025 4:32 PM EDT) Only the most recent of2 resultswithin the time period is included. Amphetamine Screen, Ur Negative Negative LAB CHEMISTRY METHOD 02/09/2025 5:36 PM EDT [facility] Comment:Certain OTC medicati ons containing ephedrine, phenylephrine, pseudoephedrine and phenylpropanolamine can cause false positive results. Barbiturate Screen, Ur Negative Negative LAB CHEMISTRY METHOD 02/09/2025 5:36 PM EDT [facility] Benzodiazepine Screen, Ur Negative Negative LAB CHEMISTRY METHOD 02/09/2025 5:36 PM EDT [facility] Cocaine Screen, Ur Negative Negative LAB CHEMISTRY METHOD 02/09/2025 5:36 PM EDT [facility] Opiate Screen, Ur Negative Negative LAB CHEMISTRY METHOD 02/09/2025 5:36 PM EDT [facility] Cannabinoid (THC) Screen, Ur Negative Negative LAB CHEMISTRY METHOD 02/09/2025 5:36 PM EDT [facility] Comment:Specimens from patie nts taking pantoprazole sodium (Protonix) have been shown to produce false positive results. Oxycodone Screen, Ur Negative Negative LAB CHEMISTRY METHOD 02/09/2025 5:36 PM EDT [facility] Fentanyl, Ur Negative Negative LAB CHEMISTRY METHOD 02/09/2025 5:36 PM EDT [facility] Urine Urine specimen obtained by clean catch procedure / Unknown Non-blood Collection / Unknown 02/09/2025 4:32 PM EDT 02/09/2025 5:06 PM EDT [facility] - 02/09/2025 5:36 PM EDT Assay [...] ORDERABLES Final Resu lt Performing Organization Address [facility] de Phone Number [facility] [address] [place] [address], [place] [phone] * Buprenorphine screen, urine (02/09/2025 4:32 PM EDT) Buprenorphine Screen Urine Negative Negative LAB CHEMISTRY METHOD 02/09/2025 5:36 PM EDT [facility] Urine Urine specimen obtained by clean catch procedure / Unknown Non-blood Collection / Unknown 02/09/2025 4:32 PM EDT 02/09/2025 5:06 PM EDT [facility] - 02/09/2025 5:36 PM EDT Assay cutoff 5 ng/mL Semi-quantitative assay for screening purposes only. Unconfirmed screening result should not be used for non-medical purposes. *ALTERNATE METHOD CONFIRMATION DONE UPON REQUEST ONLY* Sd Raman MD LAB URINE ORDERABLES Final Resu lt Performing Organization Address [facility] Co de Phone Number [facility] [address] [place] [address], [place] [phone] * Methadone, urine (02/09/2025 4:32 PM EDT) Methadone Screen, Urine Negative Negative LAB CHEMISTRY METHOD 02/09/2025 5:36 PM EDT [facility] Comment: Assay cutoff 300 ng/mL Semi-quantitative assay for screening purposes only. Unconfirmed screening result should not be used for non-medical purposes. *ALTERNATE METHOD CONFIRMATION DONE UPON REQUEST ONLY* Urine Urine specimen obtained by clean catch procedure / Unknown Non-blood Collection / Unknown 02/09/2025 4:32 PM EDT 02/09/2025 5:06 PM EDT Sd Raman MD LAB URINE ORDERABLES Final Resu lt Performing Organization Address [facility]/ZIP Co de Phone Number [facility] [address] [place] [address], [place] [phone] * Phencyclidine, urine (02/09/2025 4:32 PM EDT) [facility] PCP Scrn, Ur Negative Negative LAB CHEMISTRY METHOD 02/09/2025 5:36 PM EDT [facility] Comment: Assay cutoff 25 ng/mL Semi-quantitative assay for screening purposes only. Unconfirmed screening result should not be used for non-medical purposes. *ALTERNATE METHOD CONFIRMATION DONE UPON REQUEST ONLY* Urine Urine specimen obtained by clean catch procedure / Unknown Non-blood Collection / Unknown 02/09/2025 4:32 PM EDT 02/09/2025 5:06 PM EDT Sd Raman MD LAB URINE ORDERABLES Final Resu lt Performing Organization Address City/[facility]/ZIP Co de Phone Number [facility] [address] [place] [address], [place] [phone] * (ABNORMAL) Urinalysis with reflex microscopic (02/09/2025 2:54 PM EDT) [facility] Specific [place] Urine 1.018 1.003 - 1.030 LAB URINALYSIS - AUTOMATED METHOD 02/09/2025 3:20 PM EDT [facility] pH, Urine 6.0 5.0 - 8.0 pH LAB URINALYSIS - AUTOMATED METHOD 02/09/2025 3:20 PM [facility] Leukocytes, Urine Large(A) Negative LAB URINALYSIS - AUTOMATED METHOD 02/09/2025 3:20 PM [facility] Nitrite, Urine Negative Negative LAB URINALYSIS - AUTOMATED METHOD 02/09/2025 3:20 PM [facility] Protein, Urine Trace <=Trace mg/dL LAB URINALYSIS - AUTOMATED METHOD 02/09/2025 3:20 PM [facility] Glucose, Urine Negative Negative mg/dL LAB URINALYSIS - AUTOMATED METHOD 02/09/2025 3:20 PM [facility] [facility] LAB Ketones, Urine Negative Negative mg/dL LAB URINALYSIS - AUTOMATED METHOD 02/09/2025 3:20 PM [facility] Urobilinogen, Urine 0.2 0.2 - 1.0 mg/dL LAB URINALYSIS - AUTOMATED METHOD 02/09/2025 3:20 PM [facility] Bilirubin, Urine Negative Negative LAB URINALYSIS - AUTOMATED METHOD 02/09/2025 3:20 PM [facility] Blood, Urine Negative Negative LAB URINALYSIS - AUTOMATED METHOD 02/09/2025 3:20 PM [facility] RBC, Urine 2.7 0 - 4 /HPF LAB URINALYSIS - AUTOMATED METHOD 02/09/2025 3:20 PM [facility] WBC, Urine 70.3(H) 0 - 4 /HPF LAB URINALYSIS - AUTOMATED METHOD 02/09/2025 3:20 PM [facility] Squamous Epithelial, Urine 31 0 - 60 /LPF LAB URINALYSIS - AUTOMATED METHOD 02/09/2025 3:20 PM [facility] Bacteria, Urine Negative Negative /HPF LAB URINALYSIS - AUTOMATED METHOD 02/09/2025 3:20 PM EDT [facility] Hyaline Casts, Urine 1.2 0 - 3 /LPF LAB URINALYSIS - AUTOMATED METHOD 02/09/2025 3:20 PM EDT [facility] Urine Urine specimen obtained by clean catch procedure / Unknown Non-blood Collection / Unknown 02/09/2025 2:54 PM EDT 02/09/2025 3:11 PM EDT us Sd Raman MD LAB URINE ORDERABLES Final Resu lt Performing Organization Address [facility]/ZIP Co de Phone Number [facility] [address] [place] [address], [place] [phone] * Ethanol (02/09/2025 2:53 PM EDT) Only the most recent of2 resultswithin the time period is included. Ethanol Level <3 0 - 10 mg/dL LAB CHEMISTRY METHOD 02/09/2025 3:43 PM EDT [facility] Blood Venous blood specimen / Unknown Venipuncture / Unknown 02/09/2025 2:53 PM EDT 02/09/2025 3:11 PM EDT us Sd Raman MD LAB BLOOD ORDERABLES Final Resu lt Performing Organization Address [facility]/ZIP Co de Phone Number [facility] [address] [place] [address], [place] [phone] * (ABNORMAL) Acetaminophen level (02/09/2025 2:53 PM EDT) Only the most recent of2 resultswithin the time period is included. Acetaminophen Level 6.9(L) 10.0 - 30.0 mcg/mL LAB CHEMISTRY METHOD 02/09/2025 3:44 PM EDT [facility] Blood Venous blood specimen / Unknown Venipuncture / Unknown 02/09/2025 2:53 PM EDT 02/09/2025 3:11 PM EDT Sd Raman MD LAB BLOOD ORDERABLES Final Resu lt Performing Organization Address City/[facility]/ZIP Co de Phone Number [facility] [address] [place] [address], [place] [phone] * (ABNORMAL) Salicylate level (02/09/2025 2:53 PM EDT) Only the most recent of2 resultswithin the time period is included. Salicylate Level <1.7(L) 2.0 - 29.0 mg/dL LAB CHEMISTRY METHOD 02/09/2025 3:43 PM EDT [facility] Blood Venous blood specimen / Unknown Venipuncture / Unknown 02/09/2025 2:53 PM EDT 02/09/2025 3:11 PM EDT Sd Raman MD LAB BLOOD ORDERABLES Final Resu lt Performing Organization Address [facility]/ZIP Co de Phone Number [facility] [address] [place] [address], [place] [phone] * ECG-Annotated (02/06/2025) Provider Onbase ECG ORDERABLES Final Result * (ABNORMAL) POCT Glucose, blood (02/05/2025 3:58 PM EDT) Only the most recent of7 resultswithin the time period is included. Glucose POCT 112(H) 70 - 100 mg/dL 02/05/2025 3:59 PM EDT [facility] Blood Capillary blood specimen / Unknown 02/05/2025 3:58 PM EDT 02/05/2025 4:00 PM EDT Ruel Aguirre MD LAB POINT OF C ARE TEST DOCKED DEVICE UNSOLICITED RESULTS Final Result [facility] [address] [place] [address], * MR Brain wo Contrast (02/05/2025 11:29 [...] Signed Date: 02/05/2025 12:39 ET Workstation ID: [id number] Transcribed By: Self Edit Transcribed Date: 02/05/2025 [...] Signed Date: 02/05/2025 11:46 ET Workstation ID: [id number] Transcribed By: Self Edit Transcribed Date: 02/05/2025 [...] Signed Date: 02/05/2025 11:46 ET Workstation ID: [id number] Transcribed By: Self Edit Transcribed Date: 02/05/2025 11:44 ET [facility] IMRosenda MRI PROCEDURES Edited Result - Final * [...] Signed Date: 02/05/2025 09:46 ET Workstation ID: [id number] Transcribed By: Self Edit Transcribed Date: 02/05/2025 [...] Signed Date: 02/05/2025 09:46 ET Workstation ID: [id number] Transcribed By: Self Edit Transcribed Date: 02/05/2025 09:45 ET us [facility] CV VASCULAR PROCEDURES Fi nal Result * EEG MONITORING EXTENDED 41-60 MINUTES (02/04/2025 9:31 AM EDT) Narrative Olivier Busby MD - 02/04/2025 4:13 PM EDT Olivier Busby MD 02/04/2025 4:21 PM EEG Date/Time: 02/04/2025 4:13 PM Performed by: Olivier Busby MD Authorized by: Sanjeev Christianson MD Sanjeev Christianson MD NEUROLOGY ORDERABLES Final Result [...] Signed Date: 02/04/2025 07:52 ET Workstation ID: [id number] Transcribed By: Self Edit Transcribed Date: 02/04/2025 [...] Signed Date: 02/04/2025 07:52 ET Workstation ID: [id number] Transcribed By: Self Edit Transcribed Date: 02/04/2025 07:51 ET us Sanjeev Christianson MD CV VASCULAR PROCEDURES Cyn l Result * Lipid panel with reflex to direct LDL (02/04/2025 6:42 AM EDT) Only the most recent of2 resultswithin the time period is included. Cholesterol 158 0 - 200 mg/dL LAB CHEMISTRY METHOD 02/04/2025 7:42 PM EDT [facility] Triglycerides 114 0 - 150 mg/dL LAB CHEMISTRY METHOD 02/04/2025 7:42 PM EDT [facility] HDL 50 >=40 mg/dL LAB CHEMISTRY METHOD [facility] LDL Calculated 85 0 - 100 mg/dL LAB CHEMISTRY METHOD 02/04/2025 7:42 PM EDT [facility] Comment:Estimated LDL Calcul ated using equation: Total cholesterol - HDL cholesterol - (Triglycerides/5) VLDL Cholesterol Arjun 22.8 mg/dL LAB CHEMISTRY METHOD [facility] Non HDL Chol. (LDL+VLDL) 108 <145 mg/dL LAB CHEMISTRY METHOD 02/04/2025 7:42 PM EDT [facility] Chol/HDL Ratio 3.2 0.0 - 4.4 LAB CHEMISTRY METHOD 02/04/2025 7:42 PM EDT [facility] Blood Venous blood specimen / Unknown Venipuncture / Unknown 02/04/2025 6:42 AM EDT 02/04/2025 7:06 AM EDT [facility] LAB BLOOD ORDERABLES Cyn anand Result [facility] [address] [place] [address], [place] [phone] * (ABNORMAL) Basic metabolic panel (02/04/2025 6:42 AM EDT) Sodium 143 133 - 145 mmol/L LAB CHEMISTRY METHOD 02/04/2025 7:48 AM [facility] Potassium 4.4 3.5 - 5.5 mmol/L LAB CHEMISTRY METHOD 02/04/2025 7:48 AM [facility] Chloride 112(H) 96 - 110 mmol/L LAB CHEMISTRY METHOD 02/04/2025 7:48 AM [facility] CO2 25 21 - 32 mmol/L LAB CHEMISTRY METHOD 02/04/2025 7:48 AM [facility] Anion Gap 6 3 - 11 LAB CHEMISTRY METHOD 02/04/2025 7:48 AM [facility] Glucose 132(H) 70 - 100 mg/dL LAB CHEMISTRY METHOD 02/04/2025 7:48 AM [facility] BUN 16 5 - 25 mg/dL LAB CHEMISTRY METHOD 02/04/2025 7:48 AM [facility] Creatinine 0.92 0.50 - 1.10 mg/dL LAB CHEMISTRY METHOD 02/04/2025 7:48 AM [facility] eGFR 69 >=60 mL/min/1. 73m2 LAB CHEMISTRY METHOD 02/04/2025 7:48 AM EDT [facility] Comment:Calculation based on the Chronic Kidney Disease Epidemiology Collaboration (CKD-EPI) equation refit without adjustment for race. BUN/Creatinine Ratio 17.4 LAB CHEMISTRY METHOD 02/04/2025 7:48 AM EDT [facility] Calcium 8.9 8.5 - 10.5 mg/dL LAB CHEMISTRY METHOD 02/04/2025 7:48 AM EDT [facility] Blood Venous blood specimen / Unknown Venipuncture / Unknown 02/04/2025 6:42 AM EDT 02/04/2025 7:06 AM EDT us Sanjeev Christianson MD LAB BLOOD ORDERABLES Final Result Performing Organization Address [facility]/ZIP Co de Phone Number [facility] [address] [place] [address], * Prolactin (02/03/2025 3:26 PM EDT) Prolactin 8.00 See Comment ng/mL LAB CHEMISTRY METHOD 02/03/2025 10:23 PM EDT [facility] Comment: Prolactin Reference Ranges (ng/mL) Non 2.2 - 30.3 8.1 - 347.6 Postmenopausal 0.7 - 31.5 Blood Venous blood specimen / Unknown Venipuncture / Unknown 02/03/2025 3:26 PM EDT 02/03/2025 3:36 PM EDT us Sanjeev Christianson MD LAB BLOOD ORDERABLES Final Result Performing Organization Address [facility]/ZIP Co de Phone Number [facility] [address] [place] [address], [place] [phone] * Lipase (02/03/2025 3:26 PM EDT) Lipase 54 13 - 75 unit/L LAB CHEMISTRY METHOD 02/03/2025 4:08 PM EDT [facility] Blood Venous blood specimen / Unknown Venipuncture / Unknown 02/03/2025 3:26 PM EDT 02/03/2025 3:36 PM EDT us Chava Flannery MD LAB BLOOD ORDERABLES Final Result Performing Organization Address [facility]/ZIP Co de Phone Number [facility] [address] [place] [address], [place] [phone] * (ABNORMAL) Valproic acid level, total (02/03/2025 3:26 PM EDT) Valproic Acid, Total <3(L) 50 - 100 mcg/mL LAB CHEMISTRY METHOD 02/03/2025 5:00 PM EDT [facility] Blood Venous blood specimen / Unknown Venipuncture / Unknown 02/03/2025 3:26 PM EDT 02/03/2025 3:36 PM EDT us Chava Flannery MD LAB BLOOD ORDERABLES Final Result Performing Organization Address [facility] de Phone Number [facility] [address] [place] [address], [place] [phone] * CT Head wo Contrast (02/03/2025 3:14 [...] Signed Date: 02/03/2025 15:39 ET Workstation ID: [id number] Transcribed By: Self Edit Transcribed Date: 02/03/2025 [...] Dictated Date: 02/03/2025 15:34 ET Assigned Physician: Babrara Varner Reviewed and Electronically Signed By: Barbara Varner Signed Date: 02/03/2025 15:39 ET Workstation ID: [id number] Transcribed By: Self Edit Transcribed Date: 02/03/2025 15:34 ET Chava Flannery MD [facility] CT PROCEDURES Final Re sult * Levetiracetam level (02/03/2025 1:16 PM EDT) Levetiracetam 56.3 3.0 - 60.0 ug/mL 02/06/2025 8:13 AM EDT [facility] Comment: Steady state trough serum or plasma levels following doses of 1000 to 3000 mg/Day: 3 to 37 ug/mL. The same dosage regimen will typically result in peak levels of 10 to 60 ug/mL, at approximately 1.5 hours post dose. If applicable, any drug confirmation testing reported here was developed and the performance characteristics determined by [facility]. This confirmation testing has not been cleared or approved by the FDA. The laboratory is regulated under CLIA as qualified to perform high-complexity testing. This test is used for patient testing purposes. It should not be regarded as investigational or for research. Test performed at [facility], [address] , [place] [address] Pretty Hopkins MD, PhD - Dye Maker Blood Venous blood specimen / Unknown Venipuncture / Unknown 02/03/2025 1:16 PM EDT 02/03/2025 1:16 PM EDT Regulo Kauffman RACEHORSE TRAINER LAB BLOOD ORDERABLES Final Resul t [facility] [address] [place] [address] * COLONOSCOPY Anesthesia - MAC; [facility] ENDOSCOPY (05/22/2024 12:42 PM EST) Anatomical Region [...] for surveillance. Narrative 05/22/2024 12:44 PM EST [facility] Patient Name: Omar Sanders Procedure Date: [...] verified by the physician, the nurse, the weigher production and the general technician in the pre-procedure area in the [...] retroflexion views. Procedure Code(s): --- Professional --- 99370, Colonoscopy, flexible; with removal of tumor(s), polyp(s), or other lesion(s) by snare technique Diagnosis Code(s): --- Professional --- D12.3, Benign neoplasm of transverse colon (hepatic flexure or splenic flexure) CPT copyright 2020 [employer]. All rights reserved. The codes documented in this report are preliminary and upon supervisor keymodule assembly review may be revised to meet current compliance requirements. Yoan Sommer MD 05/22/2024 12:44:49 PM This report has been signed electronically.Yoan Sommer MD Number of Addenda: 0 Note Initiated On: 05/22/2024 12:21 PM Scope Withdrawal Time: 0 hours 9 minutes 25 seconds Scope In: 12:28:10 PM Scope Out: 12:42:17 PM Endoscopy Department at [facility] - [address] [place] [phone] Procedure Note Yoan Sommer MD - 05/22/2024 [facility] Patient Name: Omar Sanders Procedure Date: [...] the physician, the nurse, theanesthetist and the general technician in the pre-procedure area in the [...] retroflexion views. Procedure Code(s): --- Professional --- 38472, Colonoscopy, flexible; with removal of tumor(s), polyp(s), or other lesion(s) by snare technique Diagnosis Code(s): --- Professional --- D12.3, Benign neoplasm of transverse colon (hepatic flexure or splenic flexure) CPT copyright 2020 [employer]. All rights reserved. The codes documented in this report are preliminary and upon supervisor keymodule assembly reviewmay be revised to meet current compliance requirements. Yoan Sommer MD 05/22/2024 12:44:49 PM This report has been signed electronically.Yoan Sommer MD Number of Addenda: 0 Note Initiated On: 05/22/2024 12:21 PM Scope Withdrawal Time: 0 hours 9 minutes 25 seconds Scope In: 12:28:10 PM Scope Out: 12:42:17 PM Endoscopy Department at [facility] - [address] [place] [phone] IMPRESSION: - One 9 mm polyp in the transverse colon, removed with a cold snare. Resected and retrieved. - The examination was otherwise normal on directand retroflexion views. Recommendation: - Discharge patient to home. - Await pathology results. - Repeat colonoscopy in 5 years for surveillance. us Yoan Sommer MD GI~PROCEDURE ORDERABLES Fin al Result * [facility] SCREENING DIGITAL (05/11/2023 4:13 PM EST) Anatomical Region Laterality Modality Mammography 05/10/2023 10:5 1 AM EST Narrative 05/11/2023 4:13 PM EST [facility] Diagnostic Imaging Department [address] [place] [address] [id number] Patient: OMAR SANDERS /Age/Sex: 1960 - 63 - F Unit#: [id number] [facility] Order[facility] Physician: REGULO KAUFFMAN RN JIG BUILDER HELPER [facility] Screening Digital - 05/10/23 - 1117 Report Status:Signed EXAM: [facility] Scre[facility] Digital EXAM DATE AND TIME: 05/10/2023 11:18 AM HISTORY: Screening. COMPARISON: 03/30/22, 04/30/21, 04/28/20, 04/26/19 ([facility], [place], [place]) TECHNIQUE: Bilateral digital breast tomosynthesis was performed in the CC and MLO projections. Computer aided detection with Novadiol 3D 3.1 was employed. TISSUE DENSITY: a. [...] Date/Time: 05/11/23 1612 Sign date/Time: 05/11/23 1613 Procedure Note Lucia Mcmillan MD - 12/04/2023 [facility] Diagnostic Imaging Department [address] [place] [address] Patient: KAYOMAR D.O.B./Age/Sex: 1960 - 63 - F Unit#: [id number] Location/Status: [facility] Mnemonic/Ordering Site: [facility] [place] Ordering Physician: REGULO KAUFFMAN RN JIG BUILDER HELPER [facility]ening Digital - 05/10/23 - 1117 Report Status:Signed EXAM: [facility] Digital EXAM DATE AND TIME: 05/10/2023 11:18 AM HISTORY: Screening. COMPARISON: 03/30/22, 04/30/21, 04/28/20, 04/26/19 ([place], [place]) TECHNIQUE: Bilateral digital breast tomosynthesis was performed in the CCand MLO projections. Computer aided detection with iCAD ProFound AI 3D 3.1was employed. TISSUE DENSITY: a. 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
== END 2025-04-01 13:54 | disposition home or self-care (01) ==
LOC: HO.HSM 13:08
PROVIDERS: PCP Nurse Practitioner; Visit Provider Psychiatry & Neurology Neurology
DX: G40.909 Epilepsy, unspecified, not intractable, without status epilepticus (principal); G93.89 Other specified disorders of brain; R26.89 Other abnormalities of gait and mobility
CPT/HCPCS: 99214

== ENCOUNTER → 2025-04-01 13:07 | Outpatient (BNVA) | payer OTHER, SELFPAY | PROVIDERS: PCP Nurse Practitioner; Visit Provider Psychiatry & Neurology Neurology | DX: G40.909 Epilepsy, unspecified, not intractable, without status epilepticus (principal); G93.89 Other specified disorders of brain; R26.89 Other abnormalities of gait and mobility; Z79.899 Other long term (current) drug therapy | CPT/HCPCS: 99212 ==